=== PATIENT | female | born 1950 | race Caucasian/White ===

== ENCOUNTER 2017-05-24 12:46 | Outpatient (RCR) | payer MEDICARE, SELFPAY ==
[2017-04-25 13:40] LABS: International Normalized Ratio 2.4; Prothrombin Time (Protime)PT. 25.5 SECONDS (11.7-14.9)
[2017-04-25 13:56] LABS: Anion Gap 7 (5-15); BUN 75 mg/dL (7-18); BUN/Creat Ratio 42.4 RATIO (10-20); Calcium,Total 8.9 mg/dL (8.5-10.1); Chloride 97 mmol/L (98-107); Creatinine, Serum 1.77 mg/dL (0.55-1.02); EST Glomerular Filtration Rate 30 mL/min (>60); Est Glom Filt Rate - Afr Amer 37 mL/min (>60); Glucose 199 mg/dL (70-110); Potassium 3.9 mmol/L (3.5-5.1); Sodium Level 137 mmol/L (136-145)
[2017-05-24 13:18] LABS: International Normalized Ratio 3.7; Prothrombin Time (Protime)PT. 34.9 SECONDS (11.7-14.9)
== END 2017-05-24 13:00 | disposition home or self-care (01) ==
LOC: LAB 12:46
PROVIDERS: Family Provider Internal Medicine; PCP Internal Medicine; Visit Provider Internal Medicine Cardiovascular Disease
DX: I48.0 Paroxysmal atrial fibrillation (principal); I50.9 Heart failure, unspecified; I25.10 Atherosclerotic heart disease of native coronary artery without angina pectoris; I05.2 Rheumatic mitral stenosis with insufficiency
CPT/HCPCS: 36415; 80048; 85610

== ENCOUNTER 2017-06-20 20:49 | Emergency (ER) | payer MEDICARE, SELFPAY ==
[2017-06-20 20:53] VITALS: BP 144/63; PULSE 67; RESP 26; TEMP 36.5; O2SAT 97; BMI 33.7
--- NOTE | 2017-06-20 21:10 | EKG12_ITS ---
Test Reason : GEN ILL Blood Pressure : / mmHG Vent. Rate : 063 BPM Atrial Rate : 063 BPM P-R Int : 232 ms QRS Dur : 108 ms QT Int : 496 ms P-R-T Axes : 076 -21 075 degrees QTc Int : 507 ms Suspect unspecified pacemaker failure Sinus rhythm with 1st degree A-V block Incomplete left bundle branch block Prolonged QT Abnormal ECG Confirmed by JONATHAN CUELLAR, FRANCINE ([id number]), web content editor CAT CONKLIN ([id number]) on 06/21/2017 2:30:43 PM Referred By: Michael See Confirmed By:FRANCINE CASTILLO MD
[2017-06-20] MEDS: Ondansetron 4 MG/2 ML Vial IV (21:33)
[2017-06-20 21:46] LABS: Absolute Lymphocyte Count 0.65 X10^3/ul (0.83-4.51); Absolute Neutrophil Count 8.8 X10^3/uL (2.0-7.7); Basophil# 0.03 X10^3/uL; Basophil% 0.3 % (0-1); Eosinophil# 0.11 X10^3/uL; Hematocrit 34.2 % (37-47); Lymphocyte # 0.65 X10^3/ul (4.0); Mean Corp Hgb Conc 32.2 g/gl (32-36); Mean Corpuscular Hgb 29.8 pg (27.0-32.0); Mean Corpuscular Volume 92.7 fL (81-99); Mean Platelet Vol. 11.4 fl (6.2-12.0); Monocyte# 0.92 X10^3/uL; Monocyte% 8.6 % (0-10); Neutrophil # 8.83 X10^3/uL (2.7-7.7); Neutrophil % 82.1 % (47-70); POSITIVE COUNT YES; POSITIVE DIFFERENTIAL NO; POSITIVE MORPHOLOGY YES; Platelet Count 217 K/mm3 (150-450); RBC Distribution Width CV 15.1 % (11.6-14.6); RBC Distribution Width SD 50.8 fl (35.1-43.9); Red Blood Count 3.69 M/mm3 (4.2-5.4); White Blood Count 10.8 K/mm3 (4.4-11.0)
[2017-06-20 22:07] LABS: Anion Gap 4 (5-15); BUN 66 mg/dL (7-18); BUN/Creat Ratio 37.7 RATIO (10-20); Calcium,Total 8.7 mg/dL (8.5-10.1); Chloride 97 mmol/L (98-107); Creatinine, Serum 1.75 mg/dL (0.55-1.02); EST Glomerular Filtration Rate 31 mL/min (>60); Est Glom Filt Rate - Afr Amer 37 mL/min (>60); Glucose 220 mg/dL (74-106); Sodium Level 137 mmol/L (136-145)
[2017-06-20 22:08] VITALS: BP 121/58; BP 123/74; BP 124/55; PULSE 67; PULSE 72
[2017-06-20 22:11] LABS: Mucous, Urine 0 SEEN /hpf (<or=2+)
[2017-06-20 22:21] LABS: Color, Urine Yellow (Yellow); Glucose, Dipstick Normal (Normal); Ketone-Dipstick Negative (Negative); Leukocyte Esterase-Dipstick 25 /ul (Negative); Nitrite-Dipstick Negative (Negative); Occult Blood-Urine 25 /ul (Negative); Protein-Dipstick Negative (Negative); Urine Bilirubin Dipstick Negative (Negative); Urine Clarity Sl. Cloudy (Clear); Urine Urobilinogen Normal (Normal); Urine pH 6.5 (5.0 - 8.0)
[2017-06-20 22:30] LABS: Hyaline Cast 0-5 SEEN /lpf (0-5)
[2017-06-20 22:31] LABS: Bacteria 3+ /hpf (None Seen); Red Blood Cells-Urine 0-5 SEEN /hpf (0-5); Squamous Epithelial Cells - UA 0-5 SEEN /hpf (5-10); White Blood Cells 0-5 SEEN /hpf (0-5)
--- NOTE | 2017-06-20 22:55 | ED.DCSUM_ITS ---
- ER Visit Summary Date of Service: 06/20/17 Chief Complaint: Do not feel right History of Present Illness: The patient is a [address] Esa Cardenas. She reports that she was sitting watching TV at 745 this evening when she felt sweaty, clammy, and lightheaded. She took her blood sugar and it was 238. She denies any other symptoms. No chest pain, palpitations, fever, cough, shortness of breath, or other complaints. Physical Examination: Vitals: Stable. Afebrile. General: Well-nourished and well-developed. Head: Normocephalic atraumatic. Neck: Supple, no lymphadenopathy. No JVD. Nontender. Cardiovascular: Regular rate and rhythm. 2 out of 6 systolic murmur. Respiratory: No respiratory distress. Clear to auscultation bilaterally. Abdominal: Soft, nontender, nondistended, normal bowel sounds. No guarding, rebound, or peritoneal signs. Back: Nontender. Extremities: Nontender, no edema. Skin: Normal color, no rash. Neurologic: Alert and oriented ?3. Cranial nerves II through XII are intact. Normal strength and sensation. Psych: Normal affect. Test Results: EKG is sinus at 63 with a first-degree AV block and a QTC of 507. This is unchanged from April 2016. At that time her QTC was 530 and her PA was 204. CBC is marked for an H&H 11.0 34.2, 7 neutrophils of 82, leukocytes of 6. Chem-7 is more for chloride of 97, CO2 of 36, glucose of 220, BUN 66, creatinine 1.75. Creatinine ranged between 1.23 and 2.11 and 2017. INR is 4.0 yesterday. This was not repeated. Urinalysis is negative. Emergency Department Course and Treatment: Patient had negative orthostatic vital signs in the emergency department she was treated Zofran IV and is resting comfortably. Treatment Plan: Has an appointment to see the nurse practitioner for Dr. See tomorrow. She is instructed to keep this appointment. Return to the emergency part for any worsening symptoms. Disposition: To home in improved and stable condition. Impression: 1. Nausea. 2. Anxiety. This note was generated with Present[employer] software. It may contain incorrect words, spelling, and punctuation that were not noted in review of the chart prior to signing ED Disposition - Plan for ED Patient: Disposition: Home or Assisted Living Chief Complaint: General Illness Instructions: ED Nausea Vomiting Prescriptions: Ondansetron [Zofran Odt] 4 mg PO Q8H PRN PRN #10 tablet PRN Reason: Nausea Referrals: Fiona Cardenas MD [Primary Care Provider] - 1-2 Days if not improving
[2017-06-20 23:09] VITALS: BP 113/56; PULSE 66; RESP 17; O2SAT 98
[2017-06-20] MEDS: Ondansetron ODT 4 MG Tablet PO (23:10)
[2017-06-21 15:22] LABS: Pathologist Review Reviewed
== END 2017-06-20 23:22 | disposition home or self-care (01) ==
LOC: ED 21:30
PROVIDERS: Emergency Provider Emergency Medicine; Family Provider Internal Medicine; PCP Internal Medicine
DX: R11.0 Nausea (principal); F41.9 Anxiety disorder, unspecified; I13.0 Hypertensive heart and chronic kidney disease with heart failure and stage 1 through stage 4 chronic kidney disease, or unspecified chronic kidney disease; N18.9 Chronic kidney disease, unspecified; I50.9 Heart failure, unspecified; I25.10 Atherosclerotic heart disease of native coronary artery without angina pectoris; E11.9 Type 2 diabetes mellitus without complications; E78.00 Pure hypercholesterolemia, unspecified; I48.91 Unspecified atrial fibrillation; I27.20 Pulmonary hypertension, unspecified; Z79.4 Long term (current) use of insulin; Z79.82 Long term (current) use of aspirin; Z79.01 Long term (current) use of anticoagulants; Z79.899 Other long term (current) drug therapy
CPT/HCPCS: 80048; 81001; 84484; 85025; 93005; 96374; 99285; J7030; A4216; J2405

== ENCOUNTER → 2017-07-10 12:33 | Outpatient (CLI) | payer MEDICARE, SELFPAY ==
--- NOTE | 2017-07-10 12:34 | ECHOCS_ITS ---
Reason For Study: TAVR Procedure This was a 2D Doppler, Color Flow transthoracic echocardiogram. Exam performed in department. Left Ventricle Normal LV size. The estimated ejection fraction is 47 %. Mild global left ventricular systolic dysfunction. No regional wall motion abnormalities noted. Right Ventricle Normal RV size. ICD or pacer leads identified within the right ventricle. Normal systolic function. Atria The left atrium is moderately enlarged. The right atrium is mildly enlarged. Mitral Valve There is mild mitral annular calcification. Mild (1+) eccentric mitral valve insufficiency. Tricuspid Valve Normal tricuspid valve. Mild to moderate (1-2+) tricuspid valve insufficiency. Pulmonary artery systolic pressure is 50 mmHg. Moderate pulmonary hypertension. Aortic Valve Bioprosthetic aortic valve. Mild perivalvular insufficiency of the aortic valve. Pulmonic Valve Normal pulmonic valve. Great Vessels Normal aortic root. The pulmonary artery is normal size. Normal inferior vena cava. Pericardium/Pleural No pericardial effusion. Medication 22 gauge I.V. with prn adaptor inserted into left arm. Diluted definity 3ml given slow IV push to enhance endocardial definition. MMode/2D Measurements & Calculations LVIDd: 6.0 cm IVSd: 1.1 cm LVOT diam: 2.0 cm LVIDs: 4.5 cm LVPWd: 1.4 cm LVOT area: 3.3 cm2 FS: 25.1 % Ao root diam: 2.8 cm LAV(MOD-sp2): 107.8 ml LA dimension: 5.4 cm Doppler Measurements & Calculations MV V2 max: 243.0 cm/sec Ao V2 max: 218.5 cm/sec LV V1 max: 145.3 cm/sec MV max P.6 mmHg Ao max P.1 mmHg LV V1 max P.4 mmHg MV V2 mean: 160.7 cm/sec Ao V2 mean: 152.7 cm/sec LV V1 mean P.6 mmHg MV mean P.3 mmHg Ao mean P.5 mmHg LV V1 mean: 100.7 cm/sec MV V2 VTI: 66.2 cm Ao V2 VTI: 48.2 cm LV V1 VTI: 32.9 cm MVA(VTI): 1.6 cm2 ALEX(I,D): 2.2 cm2 ALEX(V,D): 2.2 cm2 SV(LVOT): 107.1 ml PA V2 max: 124.1 cm/sec TR max neil: 338.5 cm/sec TR max P.8 mmHg Interpretation Summary Normal LV size. The estimated ejection fraction is 47 %. Mild global left ventricular systolic dysfunction. Bioprosthetic aortic valve. Mild perivalvular insufficiency of the aortic valve. Pulmonary artery systolic pressure is 50 mmHg. Moderate pulmonary hypertension. Compared to prior study, there is no significant change. Ordering Physician: Anibal Jenkins/Michael See Referring Physician: Fiona Cardenas Performed By: Nicole Gonzales RDCS
== END ==
PROVIDERS: Family Provider Internal Medicine; PCP Internal Medicine; Visit Provider Nurse Practitioner Family
DX: R42 Dizziness and giddiness (principal); Z95.3 Presence of xenogenic heart valve
CPT/HCPCS: 93306; Q9957; A4216; C8929

== ENCOUNTER 2017-07-17 09:40 | Outpatient (RCR) | payer MEDICARE, SELFPAY ==
[2017-01-07 15:56] VITALS: BMI 36.3
[2017-02-03 10:51] VITALS: BP 119/54
[2017-05-29 15:14] LABS: International Normalized Ratio 2.6; Prothrombin Time (Protime)PT. 26.9 SECONDS (11.7-14.9)
[2017-06-12 13:37] LABS: Prothrombin Time (Protime)PT. 36.7 SECONDS (11.7-14.9)
[2017-06-12 13:40] LABS: International Normalized Ratio 3.9
[2017-06-19 09:45] LABS: Prothrombin Time (Protime)PT. 37.6 SECONDS (11.7-14.9)
[2017-06-26 15:21] LABS: International Normalized Ratio 2.9; Prothrombin Time (Protime)PT. 30.1 SECONDS (11.7-14.9)
[2017-07-17 10:43] LABS: International Normalized Ratio 2.7; Prothrombin Time (Protime)PT. 29.2 SECONDS (11.7-14.9)
== END 2017-07-17 10:00 | disposition home or self-care (01) ==
LOC: LAB 09:40
PROVIDERS: Family Provider Internal Medicine; PCP Internal Medicine; Visit Provider Internal Medicine Cardiovascular Disease
DX: I48.0 Paroxysmal atrial fibrillation (principal)
CPT/HCPCS: 36415; 85610

== ENCOUNTER 2017-07-21 22:12 | Inpatient (IN) | payer MEDICARE, SELFPAY ==
[2017-07-21 22:13] VITALS: BP 145/66; PULSE 67; RESP 16; TEMP 36.1; O2SAT 92; BMI 33.9
[2017-07-21 22:51] LABS: Hemoglobin 10.7 g/dl (12.0-15.0); Mean Corp Hgb Conc 31.5 g/gl (32-36); Mean Corpuscular Hgb 29.6 pg (27.0-32.0); Mean Corpuscular Volume 94.2 fL (81-99); Mean Platelet Vol. 10.2 fl (6.2-12.0); Platelet Count 183 K/mm3 (150-450); RBC Distribution Width CV 14.3 % (11.6-14.6); RBC Distribution Width SD 49.2 fl (35.1-43.9); Red Blood Count 3.61 M/mm3 (4.2-5.4); White Blood Count 11.2 K/mm3 (4.4-11.0)
[2017-07-21 23:08] LABS: Anion Gap 6 (5-15); BUN 79 mg/dL (7-18); BUN/Creat Ratio 45.7 RATIO (10-20); Calcium,Total 8.8 mg/dL (8.5-10.1); Chloride 100 mmol/L (98-107); Creatinine, Serum 1.73 mg/dL (0.55-1.02); EST Glomerular Filtration Rate 31 mL/min (>60); Est Glom Filt Rate - Afr Amer 38 mL/min (>60); Estimated Creatinine Clearance 28.73 ml/min; Glucose 100 mg/dL (74-106); Potassium 3.8 mmol/L (3.5-5.1); Sodium Level 140 mmol/L (136-145)
[2017-07-21 23:09] LABS: Differential Indicated MANUAL DIFF; POSITIVE COUNT YES; POSITIVE DIFFERENTIAL NO; POSITIVE MORPHOLOGY YES
[2017-07-21 23:11] LABS: International Normalized Ratio 2.9; Prothrombin Time (Protime)PT. 30.6 SECONDS (11.7-14.9)
[2017-07-21 23:16] LABS: Lymphocyte 8 % (19-41); Metamyelocyte 7 % (0-1); Monocyte 7 % (0-10); Neutrophil-Band 6 % (0-5); Neutrophil-Segmented 72 % (47-70); Total Cells Counted 100 (MANUAL DIFF)
--- NOTE | 2017-07-21 23:28 | ED.DCSUM_ITS ---
- ER Visit Summary Date of Service: 07/21/17 Chief Complaint: [Redness left leg] History of Present Illness: The patient is a 67 F [presents the emergency department with redness to her left leg that she noticed yesterday. Patient has history of cellulitis and sepsis related to it. Patient has chronic lymphedema both lower extremities and has her legs wrapped 24 hours a day. Patient has a visiting nurse that comes in twice a week to wrap her legs. Patient was noted to have erythema to her leg by visiting nurse and advised to seek further evaluation. Patient denies any fever. She denies any trauma to her legs. Patient lives independently and ambulates normally with a walker.] Patient is a diabetic. Physical Examination: [HEENT-PERRLA, EOMI. Cranial nerves II through XII grossly intact. TMs clear. Mucous membranes moist. No adenopathy. Cardiovascular-regular rate and rhythm with 2 out of 6 systolic ejection murmur Lungs-clear to auscultation, chest wall stable without crepitus or subcu emphysema Abdomen-normoactive bowel sounds, soft, nontender, no rebound or rigidity, no peritoneal signs. Extremities-intact ?4, normal range of motion, normal pulses, atraumatic]. Patient has +3 edema both lower extremities. Evaluation of the left lower extremity does reveal erythema below the knee. Patient has edema and erythema of the toes of the left foot. Findings consistent with cellulitis. Test Results: CBC with differential obtained showed an elevated white count of 11.2. Patient had 6% bands. Chemistries unremarkable. BUN was 79 and creatinine 1.73. INR was 2.9. [] Emergency Department Course and Treatment: [Patient was started on Levaquin given her allergy to penicillin.] Treatment Plan: [Admit for IV antibiotics] Disposition: [Admit] Impression: [Cellulitis left lower extremity] This note was generated with [employer] dictation software. It may contain incorrect words, spelling, and punctuation that were not noted in review of the chart prior to signing ED Disposition - Plan for ED Patient: Chief Complaint: Cellulitis Referrals: Fiona Cardenas MD [Primary Care Provider] -
[2017-07-21 23:48] VITALS: RESP 20; O2SAT 96
[2017-07-22] VITALS (13 sets, daily range): BP systolic 111–134; BP diastolic 48–57; PULSE 58–65; RESP 16–18; TEMP 35.5–36.7; O2SAT 93–100; BMI 33.7
--- NOTE | 2017-07-22 | PCM.HP.STD ---
Problem List (1) Cellulitis Status: Acute (2) Anemia of chronic disease Status: Chronic (3) Aortic stenosis Status: Chronic (4) Biatrial enlargement Status: Chronic Comment: Severe (5) Cardiomyopathy in disease classified elsewhere Status: Chronic (6) Cardiomyopathy, noncoronary Status: Chronic (7) Chronic atrial fibrillation Status: Chronic (8) HLD (hyperlipidemia) Status: Chronic Qualifiers: Hyperlipidemia type: mixed hyperlipidemia Qualified Code(s): E78.2 - Mixed hyperlipidemia (9) HTN (hypertension) Status: Chronic Qualifiers: Hypertension type: essential hypertension Qualified Code(s): I10 - Essential (primary) hypertension History of Present Illness Date of Admission: 07/22/17 Chief Complaint: Cellulitis The patient is a 67 year old female w/ h/o CKD III, CAD, chronic afib, and HTN admitted for cellulitis. Pt has chronic bilateral leg swelling x months. In the last few days, she noted increase swelling and tenderness in her left lower extremity. Nothing made it better or worse. She has dull aching pain. Pain was constant and has gotten progressively worse. She thought it was sweeping. Pain was so severe that it interfered with her ADLs. She has no chill or fever. She came to the ED for further workup. 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) ICD (implantable cardioverter-defibrillator) in place (Chronic) Ventricular tachycardia (paroxysmal) (Chronic) S/P AICD Anemia of chronic disease (Chronic) Cardiomyopathy, noncoronary (Chronic) HTN (hypertension) (Chronic) S/p TAVR (transcatheter aortic valve replacement), bioprosthetic (Chronic) 26 mm Bond [place] Bioprosthetic Aortic Valve HLD (hyperlipidemia) (Chronic) Biatrial enlargement (Chronic) Severe Mitral valve stenosis and regurgitation (Chronic) Mild to moderate mitral valve stenosis with moderate mitral valve insufficiency Chronic atrial fibrillation (Chronic) Allergies amoxicillin trihydrate [From Augmentin] Allergy (Verified 07/21/17 22:15) Rash potassium clavulanate [From Augmentin] Allergy (Verified 07/21/17 22:15) Rash Sulfa (Sulfonamide Antibiotics) Allergy (Verified 07/21/17 22:15) Hives vancomycin Allergy (Verified 07/21/17 22:15) Other ROSLYN SYNDROME Home Medications: Ambulatory Orders Medication Instructions Recorded Aspirin [Aspirin, Baby] 81 mg PO DAILY@0800 03/04/14 Atorvastatin Calcium [Lipitor] 40 mg PO QHS 03/04/14 Insulin Glargine,Hum.rec.anlog 42 unit SQ BREAKFAST 12/17/16 [Lantus] Levothyroxine [Synthroid] 75 mcg PO 0600 12/17/16 Polyethylene Glycol 3350 [Miralax] 17 gm PO DAILY 12/18/16 Acetaminophen [Tylenol] 1,000 mg PO Q8H PRN PRN tab 02/01/17 Metolazone [Zaroxolyn] 2.5 mg PO MOTH@0930 #4 tab 02/01/17 amiodarone 200 mg tablet 200 mg PO DAILY #30 tab 03/31/17 Furosemide [Furosemide] 40 mg PO BID 06/20/17 Insulin Aspart [Novolog Flexpen] 5 units SC BREAKFAST 06/20/17 Insulin Lispro [Humalog KwikPen] 8 unit SQ BID 06/20/17 Spironolactone [Aldactone] 25 mg PO DAILY 06/20/17 Warfarin [Coumadin] 2 mg PO .COMPLEX 06/20/17 carvedilol 6.25 mg tablet 6.25 mg PO BID 06/21/17 warfarin 4 mg tablet 4 mg PO QWEEK 06/21/17 Docusate Sodium [Colace] 100 mg PO DAILY 07/22/17 Surgical History: appendectomy, tonsillectomy, - - S/P TAVR; S/P ICD Smoking Status: Never smoker - *Family History Maternal History Items: - - heart disease, stroke Paternal History Items: - - father with kidney disease, heart disease and stroke Review of Systems Constitutional: Denies: Chills, Fever, Weight Change HEENT: Denies: Head Aches, Sinus Congestion, Sinus Drainage Cardiovascular: Denies: Chest Pain, Palpitations Respiratory: Denies: Cough, Shortness of breath at rest, Sputum production Gastrointestinal: Denies: Abdominal Pain, Nausea, Vomiting Genitourinary: Denies: Dysuria Musculoskeletal: Denies: Joint Pain, Joint Tenderness Skin: Reports: Rash. Denies: Wounds Neurological: Denies: Numbness, Tingling, Focal weakness Psychiatric: Denies: Anxiety, Depression, Homicidal Ideations, Suicidal Ideations Hematologic/ Lymphatic: Denies: Easy Bruising, Easy Bleeding VTE Information - Inpt Only VTE Present on Admission: No VTE Mechan Device Prophylaxis: SCD's VTE Pharm Prophylaxis ordered?: Yes Patient Problems: Active and Suspected Problems (Last Updated 06/21/17 @ 08:34 by Stefany Carrion) Cellulitis (Acute) - Physical Exam General: Alert, Oriented x3, Cooperative HEENT: Atraumatic, PERRLA, EOMI, Normocephalic Neck: Supple, No JVD, Negative Carotid Bruits Lungs: Clear to auscultation, Normal air movement Cardiovascular: No murmurs, Irregular Rate Abdomen: Bowel Sounds Present, Soft, Non Tender Extremities: Capillary Refill Less than 3 Seconds, Edema, Tenderness Skin: No breakdown, Ulcer/ Wound Musculoskeletal: No Tenderness to Palpation of Joints or Extremities Neurological: Cranial nerves II-XII grossly intact Psych/Mental Status: Normal Affect, Appropriate Vital Signs Temp Pulse Resp BP Pulse Ox 96.9 F L 67 20 H 145/66 H 96 07/21/17 22:13 07/21/17 22:13 07/21/17 23:48 07/21/17 22:13 07/21/17 23:48 Oxygen Delivery Method Room Air Weight: 95.254 kg Body Mass Index (BMI) 33.9 Finger Stick Blood Glucose 261 Laboratory Tests Past 24 Hrs 07/21/17 07/21/17 07/21/17 22:38 22:38 22:38 WBC 11.2 H RBC 3.61 L Hgb 10.7 L Hct 34.0 L MCV 94.2 MCH 29.6 MCHC 31.5 L RDW 14.3 RDW Differential 49.2 H Plt Count 183 MPV 10.2 Neut % (Auto) Not Reportable Absolute Neuts (auto) Not Reportable Total Counted 100 Neutrophils % (Manual) 72 H Band Neutrophils % 6 H Lymphocytes % (Manual) 8 L Monocytes % (Manual) 7 Metamyelocytes % 7 H Diff Path Review May foll PT 30.6 H INR 2.9 Sodium 140 Potassium 3.8 Chloride 100 Carbon Dioxide 34.0 H Anion Gap 6 BUN 79 H Creatinine 1.73 H Estim Creat Clear Calc 28.73 Est GFR (MDRD) Af Amer 38 L Est GFR (MDRD) Non-Af 31 L BUN/Creatinine Ratio 45.7 H Glucose 100 Calcium 8.8 Assessment/Plan Active and Suspected Problems (Last Updated 06/21/17 @ 08:34 by Stefany Carrion) Cellulitis (Acute) 67 year old female w/ h/o CKD III, CAD, chronic afib, and HTN admitted for cellulitis. 1) Left leg cellulitis: Will start zosyn. No vancomycin at this time given allergy. Cultures pending. Monitor. 2) Chronic afib: Resume home meds. Resume coumadin. INR 2.9 3) CKD III: Currently at baseline. Resume home dose lasix. H/o chronic systolic heart failure. Monitor. 4) Prophylaxis: SCD / coumadin
--- NOTE | 2017-07-22 01:17 | VDLE_ITS ---
Reason For Study: LEG SWELLING RIGHT LEFT GSV is normal. GSV is normal. CFV is compressible, spontaneous, phasic, CFV is compressible, spontaneous, phasic, competent and demonstrates normal competent, and demonstrates normal augmentation. augmentation. FV is compressible, spontaneous, phasic, FV is compressible, spontaneous, phasic, competent and demonstrates normal competent and demonstrates normal augmentation. augmentation. POP V is compressible, spontaneous, phasic, POP V is compressible, spontaneous, phasic, competent and demonstrates normal competent and demonstrates normal augmentation. augmentation. T/P Trunk is compressible. T/P Trunk is compressible. PTV is compressible. PTV is compressible. RT PerV is compressible. LT PerV is compressible. Procedure Exam performed portable in patient room. A preliminary report was called and/or faxed to [facility] nurse. Interpretation Summary No evidence for acute deep venous thrombosis bilateral lower extremities with patent and compressible bilateral great saphenous veins. Ordering Physician: Piter Laureano Referring Physician: Michael See Performed By: Michelle Linton RVT
[2017-07-22] MEDS: 0.9% Normal Saline 1,000 ML 100 ML IV ×2 (02:20→22:02)
[2017-07-22] MEDS: 0.9% NaCl Peripheral Flush Adult/Peds IV (02:30)
[2017-07-22] MEDS: Piperacil/Tazobactam 3.375 GM/50 ML ML IV ×3 (05:29→22:03)
[2017-07-22] MEDS: Levothyroxine 75 MCG Tablet PO (05:29)
[2017-07-22 07:05] LABS: Bedside Glucose 119 mg/dL (70-110)
[2017-07-22 07:21] LABS: Absolute Neutrophil Count 7.2 X10^3/uL (2.0-7.7); Basophil# 0.04 X10^3/uL; Basophil% 0.4 % (0-1); Eosinophil# 0.12 X10^3/uL; Eosinophils% 1.3 % (0-5); Hematocrit 32.1 % (37-47); Hemoglobin 10.1 g/dl (12.0-15.0); Lymphocyte % 8.7 % (19-41); Mean Corp Hgb Conc 31.5 g/gl (32-36); Mean Corpuscular Hgb 30.3 pg (27.0-32.0); Mean Corpuscular Volume 96.4 fL (81-99); Mean Platelet Vol. 11.3 fl (6.2-12.0); Monocyte# 0.84 X10^3/uL; Monocyte% 9.1 % (0-10); Neutrophil # 7.15 X10^3/uL (2.7-7.7); Neutrophil % 77.9 % (47-70); POSITIVE COUNT YES; POSITIVE DIFFERENTIAL NO; POSITIVE MORPHOLOGY YES; Platelet Count 166 K/mm3 (150-450); RBC Distribution Width SD 47.1 fl (35.1-43.9); Red Blood Count 3.33 M/mm3 (4.2-5.4); White Blood Count 9.2 K/mm3 (4.4-11.0)
[2017-07-22 07:49] LABS: Anion Gap 8 (5-15); BUN 68 mg/dL (7-18); BUN/Creat Ratio 43.6 RATIO (10-20); Calcium,Total 8.8 mg/dL (8.5-10.1); Chloride 100 mmol/L (98-107); Creatinine, Serum 1.56 mg/dL (0.55-1.02); EST Glomerular Filtration Rate 35 mL/min (>60); Est Glom Filt Rate - Afr Amer 42 mL/min (>60); Estimated Creatinine Clearance 31.86 ml/min; Glucose 111 mg/dL (74-106); Potassium 3.5 mmol/L (3.5-5.1); Sodium Level 140 mmol/L (136-145)
[2017-07-22] MEDS: Aspirin 81 MG TAB.CHEW PO (08:38)
[2017-07-22] MEDS: Amiodarone 200 MG Tablet PO (08:38)
[2017-07-22] MEDS: Carvedilol 6.25 MG Tablet PO ×2 (08:38→22:02)
[2017-07-22] MEDS: Polyethylene Glycol 3350 17 GM PACKET PO (08:39)
[2017-07-22] MEDS: Furosemide 40 MG Tablet PO ×2 (08:39→16:56)
[2017-07-22] MEDS: Spironolactone 25 MG Tablet PO (08:39)
[2017-07-22 11:26] LABS: Bedside Glucose 240 mg/dL (70-110)
--- NOTE | 2017-07-22 13:37 | CASEMGMT ---
See attached metal hardener. Met face to face with patient earlier today. States she does see a kidney doctor that comes from [facility] to local area but can't remember his name. Also sees Dr. See. Denies anticipating any needs at discharge. Has ramp from garage into home and in the front. She owns a power scooter. Instructed case mgmt will remain available should anything arise. Verb understanding. Anat Hall RN, CCM.
--- NOTE | 2017-07-22 15:00 | PCM.HOSP.N ---
Hospitalist Note The patient was admitted die operator today for lower extremity cellulitis. She has history of bilateral lower extremity edema, venous stasis and chronic lymphedema with frequent skin tear and fluid seeping out. No fever. No tachycardia. Lungs bilateral air entry equal. CTA Heart S1-S2 regular. Patient is on IV Zosyn. Laboratory Results 07/21/17 22:38: WBC 11.2 H, RBC 3.61 L, Hgb 10.7 L, Hct 34.0 L, MCV 94.2, MCH 29.6, MCHC 31.5 L, RDW 14.3, RDW Differential 49.2 H, Plt Count 183, MPV 10.2, Neut % (Auto) Not Reportable, Absolute Neuts (auto) Not Reportable, Total Counted 100, Neutrophils % (Manual) 72 H, Band Neutrophils % 6 H, Lymphocytes % (Manual) 8 L, Monocytes % (Manual) 7, Metamyelocytes % 7 H, Diff Path Review August07/21/17 22:38: PT 30.6 H, INR 2.9 07/21/17 22:38: Sodium 140, Potassium 3.8, Chloride 100, Carbon Dioxide 34.0 H, Anion Gap 6, BUN 79 H, Creatinine 1.73 H, Estim Creat Clear Calc 28.73, Est GFR (MDRD) Af Amer 38 L, Est GFR (MDRD) Non-Af 31 L, BUN/Creatinine Ratio 45.7 H, Glucose 100, Calcium 8.8 07/22/17 06:35: WBC 9.2, RBC 3.33 L, Hgb 10.1 L, Hct 32.1 L, MCV 96.4, MCH 30.3, MCHC 31.5 L, RDW 14.0, RDW Differential 47.1 H, Plt Count 166, MPV 11.3, Immature Gran % (Auto) 2.600 H, Neut % (Auto) 77.9 H, Lymph % (Auto) 8.7 L, [place] % (Auto) 9.1, Eos % (Auto) 1.3, Baso % (Auto) 0.4, Absolute Neuts (auto) 7.2, Absolute Lymphs (auto) 0.80 L, Total Counted Not Reportable 07/22/17 06:35: Sodium 140, Potassium 3.5, Chloride 100, Carbon Dioxide 32.0, Anion Gap 8, BUN 68 H, Creatinine 1.56 H, Estim Creat Clear Calc 31.86, Est GFR (MDRD) Af Amer 42 L, Est GFR (MDRD) Non-Af 35 L, BUN/Creatinine Ratio 43.6 H, Glucose 111 H, Calcium 8.8 07/22/17 06:58: POC Glucose 119 H 07/22/17 11:01: POC Glucose 240 H
--- NOTE | 2017-07-22 15:03 | CCHN_ITS ---
Hospitalist Note The patient was admitted joint cutter machine today for lower extremity cellulitis. She has history of bilateral lower extremity edema, venous stasis and chronic lymphedema with frequent skin tear and fluid seeping out. No fever. No tachycardia. Lungs bilateral air entry equal. CTA Heart S1-S2 regular. Patient is on IV Zosyn. Laboratory Results 07/21/17 22:38: WBC 11.2 H, RBC 3.61 L, Hgb 10.7 L, Hct 34.0 L, MCV 94.2, MCH 29.6, MCHC 31.5 L, RDW 14.3, RDW Differential 49.2 H, Plt Count 183, MPV 10.2, Neut % (Auto) Not Reportable, Absolute Neuts (auto) Not Reportable, Total Counted 100, Neutrophils % (Manual) 72 H, Band Neutrophils % 6 H, Lymphocytes % (Manual) 8 L, Monocytes % (Manual) 7, Metamyelocytes % 7 H, Diff Path Review August07/21/17 22:38: PT 30.6 H, INR 2.9 07/21/17 22:38: Sodium 140, Potassium 3.8, Chloride 100, Carbon Dioxide 34.0 H, Anion Gap 6, BUN 79 H, Creatinine 1.73 H, Estim Creat Clear Calc 28.73, Est GFR (MDRD) Af Amer 38 L, Est GFR (MDRD) Non-Af 31 L, BUN/Creatinine Ratio 45.7 H, Glucose 100, Calcium 8.8 07/22/17 06:35: WBC 9.2, RBC 3.33 L, Hgb 10.1 L, Hct 32.1 L, MCV 96.4, MCH 30.3 , MCHC 31.5 L, RDW 14.0, RDW Differential 47.1 H, Plt Count 166, MPV 11.3, Immature Gran % (Auto) 2.600 H, Neut % (Auto) 77.9 H, Lymph % (Auto) 8.7 L, [place] % (Auto) 9.1, Eos % (Auto) 1.3, Baso % (Auto) 0.4, Absolute Neuts (auto) 7.2, Absolute Lymphs (auto) 0.80 L, Total Counted Not Reportable 07/22/17 06:35: Sodium 140, Potassium 3.5, Chloride 100, Carbon Dioxide 32.0, Anion Gap 8, BUN 68 H, Creatinine 1.56 H, Estim Creat Clear Calc 31.86, Est GFR (MDRD) Af Amer 42 L, Est GFR (MDRD) Non-Af 35 L, BUN/Creatinine Ratio 43.6 H, Glucose 111 H, Calcium 8.8 07/22/17 06:58: POC Glucose 119 H 07/22/17 11:01: POC Glucose 240 H
[2017-07-22 16:06] LABS: Bedside Glucose 218 mg/dL (70-110)
[2017-07-22] MEDS: Atorvastatin Calcium 40 MG Tablet PO (22:02)
[2017-07-22 22:10] LABS: Bedside Glucose 138 mg/dL (70-110)
[2017-07-23] VITALS (11 sets, daily range): BP systolic 104–131; BP diastolic 43–59; PULSE 59–63; RESP 16–18; TEMP 35.9–36.9; O2SAT 97–100
[2017-07-23] MEDS: Piperacil/Tazobactam 3.375 GM/50 ML ML IV ×3 (05:08→21:36)
[2017-07-23] MEDS: Levothyroxine 75 MCG Tablet PO (05:08)
[2017-07-23] MEDS: Acetaminophen 500 MG Tablet 1000 MG PO ×2 (06:27→21:36)
[2017-07-23 07:30] LABS: Bedside Glucose 92 mg/dL (70-110)
[2017-07-23] MEDS: Polyethylene Glycol 3350 17 GM PACKET PO (09:06)
[2017-07-23] MEDS: Spironolactone 25 MG Tablet PO (09:07)
[2017-07-23] MEDS: Carvedilol 6.25 MG Tablet PO ×2 (09:07→21:36)
[2017-07-23] MEDS: Aspirin 81 MG TAB.CHEW PO (09:07)
[2017-07-23] MEDS: Amiodarone 200 MG Tablet PO (09:07)
[2017-07-23] MEDS: Furosemide 40 MG Tablet PO ×2 (09:07→17:21)
[2017-07-23 11:30] LABS: Bedside Glucose 191 mg/dL (70-110)
--- NOTE | 2017-07-23 13:37 | PCM.PN.HOSP ---
Patient Problems: Active and Suspected Problems (Last Updated 06/21/17 @ 08:34 by Stefany Carrion) Cellulitis (Acute) Subjective: Patient did not had fever or chills. Alert awake oriented ?3. Bilateral lower extremity wrapped. Patient has history of his skin tear and fragile skin with weeping lymphedema Vitals/I&O's: Vital Signs Temp Pulse Resp BP Pulse Ox 97.7 F L 59 L 16 117/54 L 100 07/23/17 11:31 07/23/17 11:31 07/23/17 11:31 07/23/17 11:31 07/23/17 11:31 Oxygen Flow Rate (L/min) 2 Oxygen Delivery Method Nasal Cannula Weight: 208 lb 12.8 oz Body Mass Index (BMI) 33.7 Intake and Output for Last 24 Hours 07/21/17 07/22/17 07/23/17 23:59 23:59 23:59 Intake Total 1949 / 1949 1156 / 1156 Output Total 1650 / 1650 2550 / 2550 Balance 299 / 299 -1394 / -1394 General: Alert, Oriented x3, Cooperative HEENT: Atraumatic, PERRLA, EOMI, Normocephalic Neck: Supple, No JVD, Negative Carotid Bruits Lungs: Normal air movement, Diminished, - Cardiovascular: Regular rate, Normal S1, Normal S2, No murmurs Abdomen: Bowel Sounds Present, Soft, Non Tender Extremities: Capillary Refill Less than 3 Seconds, Edema Skin: Rash Present - Bilateral erythema present, getting better below knee generalized venous edema with purplish/Rona's skin discoloration and lymphedema suggestive of venous hypertension. Patient has thin skin but no skin tear/ULCER at this time Musculoskeletal: No Tenderness to Palpation of Joints or Extremities Neurological: Cranial nerves II-XII grossly intact Psych/Mental Status: Normal Affect, Appropriate Laboratory Results 07/22/17 15:57: POC Glucose 218 H 07/22/17 22:02: POC Glucose 138 H 07/23/17 07:20: POC Glucose 92 07/23/17 11:21: POC Glucose 191 H Current Medications Acetaminophen (Tylenol) 1,000 mg PO Q8H PRN PRN PRN Reason: MILD PAIN (1-3) Last Admin: 07/23/17 06:27 Dose: 1,000 mg Amiodarone HCl (Cordarone) 200 mg PO DAILY [facility] Last Admin: 07/23/17 09:07 Dose: 200 mg Aspirin (Aspirin, Baby) 81 mg PO DAILY@0800 [facility] Last Admin: 07/23/17 09:07 Dose: 81 mg Atorvastatin Calcium (Lipitor) 40 mg PO QHS [facility] Last Admin: 07/22/17 22:02 Dose: 40 mg Carvedilol (Coreg) 6.25 mg PO BID [facility] Last Admin: 07/23/17 09:07 Dose: 6.25 mg Dextrose (D50w Syringe) 0 gm IV X1 PRN; Protocol PRN Reason: Hypoglycemia Furosemide (Lasix) 40 mg PO BID [facility] Last Admin: 07/23/17 09:07 Dose: 40 mg Glucagon () 1 mg IM .X1 PRN PRN Reason: Hypoglycemia Piperacillin Sod/Tazobactam Sod (Zosyn) 3.375 gm in 50 mls @ 12.5 mls/hr IV Q8 [facility] Last Admin: 07/23/17 05:08 Dose: 12.5 mls/hr Sodium Chloride () 250 mls @ 15 mls/hr IV .[id number] PRN PRN Reason: SALINE FLUSH Insulin Aspart (Novolog Flexpen (Bkc)) 0 units SC TIDAC [facility] PRN Reason: Protocol Last Admin: 07/23/17 12:33 Dose: 2 u Insulin Aspart (Novolog Flexpen (Bkc)) 5 units SC BREAKFAST [facility] Last Admin: 07/23/17 09:06 Dose: 5 u Insulin Aspart (Novolog Flexpen (Bkc)) 8 units SC LUNCH [facility] Last Admin: 07/23/17 12:33 Dose: 8 u Insulin Aspart (Novolog Flexpen (Bkc)) 8 units SC DINNER [facility] Last Admin: 07/22/17 16:56 Dose: 8 u Insulin Detemir (Levemir (Bkc)) 42 units SC BREAKFAST [facility] Last Admin: 07/23/17 09:05 Dose: 42 u Levothyroxine Sodium (Synthroid) 75 mcg PO 0600 [facility] Last Admin: 07/23/17 05:08 Dose: 75 mcg Magnesium Hydroxide (Milk Of Magnesia) 30 ml PO DAILY PRN PRN PRN Reason: Constipation Metolazone (Zaroxolyn) 2.5 mg PO MOTH@0930 [facility] Ondansetron HCl (Zofran Odt) 4 mg PO Q8H PRN PRN Reason: NAUSEA/VOMITING Polyethylene Glycol (Miralax) 17 gm PO DAILY [facility] Last Admin: 07/23/17 09:06 Dose: 17 gm Sodium Chloride () 5 - 30 ml IV UD PRN PRN Reason: SALINE FLUSH Last Admin: 07/22/17 02:30 Dose: 5 ml Spironolactone (Aldactone) 25 mg PO DAILY [facility] Last Admin: 07/23/17 09:07 Dose: 25 mg Warfarin Sodium (Coumadin (Pbkc)) 2 mg PO SuTuWeThFrSa@1700 [facility] PRN Reason: Protocol Last Admin: 07/22/17 16:55 Dose: 2 mg Warfarin Sodium (Coumadin (Pbkc)) 4 mg PO Mo@1700 [facility] PRN Reason: Protocol Medical Necessity - Tobacco Use Smoking Status: Never smoker Assessment/Plan Active and Suspected Problems (Last Updated 06/21/17 @ 08:34 by Stefany Carrion) Cellulitis (Acute) THis is a 67 year old female w/ h/o CKD III, CAD, chronic afib, and HTN admitted for cellulitis. 1) Left leg cellulitis: Started on IV Zosyn. Currently, she does not Have open wound/ulcer. In September 2015, her left leg wound showed coagulated negative staph No vancomycin at this time given allergy. Cultures pending. Monitor. 2) Chronic afib: Resume home meds. Resume coumadin. INR 2.9. Monitor INR 3) CKD III: Currently at baseline. Resume home dose lasix. H/o chronic systolic heart failure. Monitor. Patient has other comorbidities including nonischemic cardiomyopathy, most probably related to to hypertension,and aortic stenosis and, chronic A. fib, dyslipidemia and anemia of chronic disease, aortic stenosis s/p TAVR, history of systolic and diastolic combined heart failure and paroxysmal V. tach status post AICD: patient had last 2D echo in June 2017 showed EF 47%, mild global left ventricular systolic dysfunction. Normal RV size and systolic function. Left atrium moderately enlarged right atrium mildly enlarged. Mild to moderate TR with PA SP 50 images as to moderate pulmonary hypertension. Bioprosthetic aortic valve 4) Prophylaxis: SCD / coumadin Code Visit Inpatient E&M: 45[address] [facility] L3
--- NOTE | 2017-07-23 13:47 | PN_ITS ---
Patient Problems: Active and Suspected Problems (Last Updated 06/21/17 @ 08:34 by Stefany Carrion ) Cellulitis (Acute) Subjective: Patient did not had fever or chills. Alert awake oriented ?3. Bilateral lower extremity wrapped. Patient has history of his skin tear and fragile skin with weeping lymphedema Vitals/I&O's: Vital Signs Temp Pulse Resp BP Pulse Ox 97.7 F L 59 L 16 117/54 L 100 07/23/17 11:31 07/23/17 11:31 07/23/17 11:31 07/23/17 11:31 07/23/17 11:31 Oxygen Flow Rate (L/min) 2 Oxygen Delivery Method Nasal Cannula Weight: 208 lb 12.8 oz Body Mass Index (BMI) 33.7 Intake and Output for Last 24 Hours 07/21/17 07/22/17 07/23/17 23:59 23:59 23:59 Intake Total 1949 / 1949 1156 / 1156 Output Total 1650 / 1650 2550 / 2550 Balance 299 / 299 -1394 / -1394 General: Alert, Oriented x3, Cooperative HEENT: Atraumatic, PERRLA, EOMI, Normocephalic Neck: Supple, No JVD, Negative Carotid Bruits Lungs: Normal air movement, Diminished, - Cardiovascular: Regular rate, Normal S1, Normal S2, No murmurs Abdomen: Bowel Sounds Present, Soft, Non Tender Extremities: Capillary Refill Less than 3 Seconds, Edema Skin: Rash Present - Bilateral erythema present, getting better below knee generalized venous edema with purplish/Rona's skin discoloration and lymphedema suggestive of venous hypertension. Patient has thin skin but no skin tear/ULCER at this time Musculoskeletal: No Tenderness to Palpation of Joints or Extremities Neurological: Cranial nerves II-XII grossly intact Psych/Mental Status: Normal Affect, Appropriate Laboratory Results 07/22/17 15:57: POC Glucose 218 H 07/22/17 22:02: POC Glucose 138 H 07/23/17 07:20: POC Glucose 92 07/23/17 11:21: POC Glucose 191 H Current Medications Acetaminophen (Tylenol) 1,000 mg PO Q8H PRN PRN PRN Reason: MILD PAIN (1-3) Last Admin: 07/23/17 06:27 Dose: 1,000 mg Amiodarone HCl (Cordarone) 200 mg PO DAILY [facility] Last Admin: 07/23/17 09:07 Dose: 200 mg Aspirin (Aspirin, Baby) 81 mg PO DAILY@0800 [facility] Last Admin: 07/23/17 09:07 Dose: 81 mg Atorvastatin Calcium (Lipitor) 40 mg PO QHS [facility] Last Admin: 07/22/17 22:02 Dose: 40 mg Carvedilol (Coreg) 6.25 mg PO BID [facility] Last Admin: 07/23/17 09:07 Dose: 6.25 mg Dextrose (D50w Syringe) 0 gm IV X1 PRN; Protocol PRN Reason: Hypoglycemia Furosemide (Lasix) 40 mg PO BID [facility] Last Admin: 07/23/17 09:07 Dose: 40 mg Glucagon () 1 mg IM .X1 PRN PRN Reason: Hypoglycemia Piperacillin Sod/Tazobactam Sod (Zosyn) 3.375 gm in 50 mls @ 12.5 mls/hr IV Q8 [facility] Last Admin: 07/23/17 05:08 Dose: 12.5 mls/hr Sodium Chloride () 250 mls @ 15 mls/hr IV .[id number] PRN PRN Reason: SALINE FLUSH Insulin Aspart (Novolog Flexpen (Bkc)) 0 units SC TIDAC [facility] PRN Reason: Protocol Last Admin: 07/23/17 12:33 Dose: 2 u Insulin Aspart (Novolog Flexpen (Bkc)) 5 units SC BREAKFAST [facility] Last Admin: 07/23/17 09:06 Dose: 5 u Insulin Aspart (Novolog Flexpen (Bkc)) 8 units SC LUNCH [facility] Last Admin: 07/23/17 12:33 Dose: 8 u Insulin Aspart (Novolog Flexpen (Bkc)) 8 units SC DINNER [facility] Last Admin: 07/22/17 16:56 Dose: 8 u Insulin Detemir (Levemir (Bkc)) 42 units SC BREAKFAST [facility] Last Admin: 07/23/17 09:05 Dose: 42 u Levothyroxine Sodium (Synthroid) 75 mcg PO 0600 [facility] Last Admin: 07/23/17 05:08 Dose: 75 mcg Magnesium Hydroxide (Milk Of Magnesia) 30 ml PO DAILY PRN PRN PRN Reason: Constipation Metolazone (Zaroxolyn) 2.5 mg PO MOTH@0930 [facility] Ondansetron HCl (Zofran Odt) 4 mg PO Q8H PRN PRN Reason: NAUSEA/VOMITING Polyethylene Glycol (Miralax) 17 gm PO DAILY [facility] Last Admin: 07/23/17 09:06 Dose: 17 gm Sodium Chloride () 5 - 30 ml IV UD PRN PRN Reason: SALINE FLUSH Last Admin: 07/22/17 02:30 Dose: 5 ml Spironolactone (Aldactone) 25 mg PO DAILY [facility] Last Admin: 07/23/17 09:07 Dose: 25 mg Warfarin Sodium (Coumadin (Pbkc)) 2 mg PO SuTuWeThFrSa@1700 [facility] PRN Reason: Protocol Last Admin: 07/22/17 16:55 Dose: 2 mg Warfarin Sodium (Coumadin (Pbkc)) 4 mg PO Mo@1700 [facility] PRN Reason: Protocol Medical Necessity - Tobacco Use Smoking Status: Never smoker Assessment/Plan Active and Suspected Problems (Last Updated 06/21/17 @ 08:34 by Stefany Carrion ) Cellulitis (Acute) THis is a 67 year old female w/ h/o CKD III, CAD, chronic afib, and HTN admitted for cellulitis. 1) Left leg cellulitis: Started on IV Zosyn. Currently, she does not Have open wound/ulcer. In September 2015, her left leg wound showed coagulated negative staph No vancomycin at this time given allergy. Cultures pending. Monitor. 2) Chronic afib: Resume home meds. Resume coumadin. INR 2.9. Monitor INR 3) CKD III: Currently at baseline. Resume home dose lasix. H/o chronic systolic heart failure. Monitor. Patient has other comorbidities including nonischemic cardiomyopathy, most probably related to to hypertension,and aortic stenosis and, chronic A. fib, dyslipidemia and anemia of chronic disease, aortic stenosis s/p TAVR, history of systolic and diastolic combined heart failure and paroxysmal V. tach status post AICD: patient had last 2D echo in June 2017 showed EF 47%, mild global left ventricular systolic dysfunction. Normal RV size and systolic function. Left atrium moderately enlarged right atrium mildly enlarged. Mild to moderate TR with PA SP 50 images as to moderate pulmonary hypertension. Bioprosthetic aortic valve 4) Prophylaxis: SCD / coumadin Code Visit Inpatient E&M: 15873 [facility] L3
[2017-07-23 16:11] LABS: Bedside Glucose 200 mg/dL (70-110)
[2017-07-23] MEDS: Atorvastatin Calcium 40 MG Tablet PO (21:36)
[2017-07-23 21:46] LABS: Bedside Glucose 272 mg/dL (70-110)
[2017-07-24] VITALS (11 sets, daily range): BP systolic 102–117; BP diastolic 49–59; PULSE 59–76; RESP 18–20; TEMP 36.4–37; O2SAT 95–100
[2017-07-24] MEDS: Piperacil/Tazobactam 3.375 GM/50 ML ML IV ×3 (05:43→22:00)
[2017-07-24] MEDS: Acetaminophen 500 MG Tablet 1000 MG PO ×2 (05:43→18:15)
[2017-07-24] MEDS: Levothyroxine 75 MCG Tablet PO (05:43)
[2017-07-24] MEDS: Aspirin 81 MG TAB.CHEW PO (07:43)
[2017-07-24] MEDS: Metolazone 2.5 MG Tablet PO (07:43)
[2017-07-24] MEDS: Spironolactone 25 MG Tablet PO (07:45)
[2017-07-24] MEDS: Carvedilol 6.25 MG Tablet PO ×2 (07:45→21:59)
[2017-07-24] MEDS: Polyethylene Glycol 3350 17 GM PACKET PO (07:46)
[2017-07-24] MEDS: Furosemide 40 MG Tablet PO ×2 (07:46→18:15)
[2017-07-24 07:55] LABS: Bedside Glucose 113 mg/dL (70-110)
[2017-07-24 07:57] LABS: Prothrombin Time (Protime)PT. 43.1 SECONDS (11.7-14.9)
[2017-07-24 08:00] LABS: International Normalized Ratio 4.5
[2017-07-24 11:35] LABS: Bedside Glucose 200 mg/dL (70-110)
[2017-07-24] MEDS: Amiodarone 200 MG Tablet PO (13:23)
[2017-07-24] MEDS: Nystatin Ointment 1 APPLIC TOPICAL ×2 (13:24→22:14)
--- NOTE | 2017-07-24 15:53 | CHAPLAIN ---
Type of Pastoral Visit _x__ Initial Visit ___ Follow-up Visit ___ On-call Visit ___ General Patient Visit ___ Spiritual Assessment ___ Family Conference ___ Bereavement ___ Rapid Response ___ Code Blue ___ Other (describe below) Pastoral Care Referral From _x__ Patient ___ Family ___ Nurse ___ Physician ___ Finish Molder ___ Canoe Builder ___ Other (describe below) Sacrament/Intervention _x__ Active listening ___ Anointing ___ Moravian ___ Bereavement ___ Communion ___ Denisse exploration ___ _x__ Life review _x__ Prayer ___ Reconciliation ___ Sacrament of Sick _x__ Supportive presence ___ Wedding ___ Other (describe below) Pastoral Comments
--- NOTE | 2017-07-24 16:17 | PN_ITS ---
Patient Problems: Active and Suspected Problems (Last Updated 06/21/17 @ 08:34 by Stefany Carrion ) Cellulitis (Acute) Subjective: CC: Left leg cellulitis Objective: He is feeling much improved denies any fever or chills. Her INR is elevated at 4.5 she takes Coumadin for A. fib. No evidence of bleeding. Vitals/I&O's: Vital Signs Temp Pulse Resp BP Pulse Ox 98.6 F 66 18 105/50 L 95 07/24/17 08:00 07/24/17 08:00 07/24/17 08:00 07/24/17 08:00 07/24/17 08:00 Oxygen Flow Rate (L/min) 2 Oxygen Delivery Method Nasal Cannula Weight: 94.7 kg Body Mass Index (BMI) 33.7 Intake and Output for Last 24 Hours 07/22/17 07/23/17 07/24/17 23:59 23:59 23:59 Intake Total 1949 / 1949 1806 / 1806 1229 / 1229 Output Total 1650 / 1650 2950 / 2950 1250 / 1250 Balance 299 / 299 -1144 / -1144 -21 / -21 General: Alert, Oriented x3 HEENT: Atraumatic, EOMI Oral: Moist Mucosa Neck: Supple, No JVD, Carotid Bruit, Left Lungs: Clear to auscultation Cardiovascular: Regular rate, Normal S1, Normal S2 Abdomen: Bowel Sounds Present, Soft, Non Tender Extremities: - Neurological: Cranial nerves II-XII grossly intact, Deep Tendon Reflexes 2+/4 and Symmetrical, Motor Exam 5/5 strength throughout Laboratory Results 07/23/17 21:34: POC Glucose 272 H 07/24/17 07:12: PT 43.1 H, INR 4.5 H* 07/24/17 07:41: POC Glucose 113 H 07/24/17 11:31: POC Glucose 200 H Current Medications Acetaminophen (Tylenol) 1,000 mg PO Q8H PRN PRN PRN Reason: MILD PAIN (-310) Last Admin: 07/24/17 05:43 Dose: 1,000 mg Amiodarone HCl (Cordarone) 200 mg PO DAILY [facility] Last Admin: 07/24/17 13:23 Dose: 200 mg Aspirin (Aspirin, Baby) 81 mg PO DAILY@0800 [facility] Last Admin: 07/24/17 07:43 Dose: 81 mg Atorvastatin Calcium (Lipitor) 40 mg PO QHS [facility] Last Admin: 07/23/17 21:36 Dose: 40 mg Carvedilol (Coreg) 6.25 mg PO BID [facility] Last Admin: 07/24/17 07:45 Dose: 6.25 mg Dextrose (D50w Syringe) 0 gm IV X1 PRN; Protocol PRN Reason: Hypoglycemia Furosemide (Lasix) 40 mg PO BID [facility] Last Admin: 07/24/17 07:46 Dose: 40 mg Glucagon () 1 mg IM .X1 PRN PRN Reason: Hypoglycemia Piperacillin Sod/Tazobactam Sod (Zosyn) 3.375 gm in 50 mls @ 12.5 mls/hr IV Q8 [facility] Last Admin: 07/24/17 13:25 Dose: 12.5 mls/hr Sodium Chloride () 250 mls @ 15 mls/hr IV .[id number] PRN PRN Reason: SALINE FLUSH Insulin Aspart (Novolog Flexpen (Bkc)) 0 units SC TIDAC [facility] PRN Reason: Protocol Last Admin: 07/24/17 13:23 Dose: 2 u Insulin Aspart (Novolog Flexpen (Bkc)) 5 units SC BREAKFAST [facility] Last Admin: 07/24/17 07:44 Dose: 5 u Insulin Aspart (Novolog Flexpen (Bkc)) 8 units SC LUNCH [facility] Last Admin: 07/24/17 13:24 Dose: 8 u Insulin Aspart (Novolog Flexpen (Bkc)) 8 units SC DINNER [facility] Last Admin: 07/23/17 17:19 Dose: 8 u Insulin Detemir (Levemir (Bkc)) 42 units SC BREAKFAST [facility] Last Admin: 07/24/17 07:45 Dose: 42 u Levothyroxine Sodium (Synthroid) 75 mcg PO 0600 [facility] Last Admin: 07/24/17 05:43 Dose: 75 mcg Magnesium Hydroxide (Milk Of Magnesia) 30 ml PO DAILY PRN PRN PRN Reason: Constipation Metolazone (Zaroxolyn) 2.5 mg PO MOTH@0930 [facility] Last Admin: 07/24/17 07:43 Dose: 2.5 mg Nystatin (Mycostatin) 1 applic TOPICAL TID [facility] PRN Reason: Protocol Last Admin: 07/24/17 13:24 Dose: 1 applicatio Ondansetron HCl (Zofran Odt) 4 mg PO Q8H PRN PRN Reason: NAUSEA/VOMITING Polyethylene Glycol (Miralax) 17 gm PO DAILY [facility] Last Admin: 07/24/17 07:46 Dose: 17 gm Sodium Chloride () 5 - 30 ml IV UD PRN PRN Reason: SALINE FLUSH Last Admin: 07/22/17 02:30 Dose: 5 ml Spironolactone (Aldactone) 25 mg PO DAILY [facility] Last Admin: 07/24/17 07:45 Dose: 25 mg Medical Necessity - Tobacco Use Smoking Status: Never smoker Assessment/Plan Active and Suspected Problems (Last Updated 06/21/17 @ 08:34 by Stefany Carrion ) Cellulitis (Acute) 1. Left leg cellulitis; receiving IV Zosyn. 2. Chronic Afib; INR is supratherapeutic 4.5 and will begin Coumadin and repeat INR in a.m. 3 CKD III; renal parameters will continue to monitor. 4. Chronic Systolic heart failure; the patient is clinically compensated resume home dose lasix. Code Visit Inpatient E&M: 26222 [facility] L2
[2017-07-24 16:51] LABS: Bedside Glucose 269 mg/dL (70-110)
[2017-07-24] MEDS: Atorvastatin Calcium 40 MG Tablet PO (21:59)
[2017-07-24 22:11] LABS: Bedside Glucose 123 mg/dL (70-110)
[2017-07-25 00:38] VITALS: PULSE 60
[2017-07-25] MEDS: Acetaminophen 500 MG Tablet 1000 MG PO (02:13)
[2017-07-25 02:17] VITALS: BP 117/49; PULSE 66; RESP 18; TEMP 36.4; O2SAT 98
[2017-07-25 04:30] VITALS: PULSE 60
[2017-07-25] MEDS: Nystatin Ointment 1 APPLIC TOPICAL (05:10)
[2017-07-25] MEDS: Levothyroxine 75 MCG Tablet PO (05:10)
[2017-07-25] MEDS: Piperacil/Tazobactam 3.375 GM/50 ML ML IV (05:10)
[2017-07-25 06:12] LABS: Prothrombin Time (Protime)PT. 43.3 SECONDS (11.7-14.9)
[2017-07-25 06:18] LABS: International Normalized Ratio 4.5
[2017-07-25 07:29] VITALS: PULSE 62
[2017-07-25 08:10] VITALS: BP 114/48; PULSE 60; RESP 18; TEMP 36.7; O2SAT 97
[2017-07-25 08:36] LABS: Bedside Glucose 108 mg/dL (70-110)
[2017-07-25] MEDS: Amiodarone 200 MG Tablet PO (08:54)
[2017-07-25] MEDS: Spironolactone 25 MG Tablet PO (08:54)
[2017-07-25] MEDS: Aspirin 81 MG TAB.CHEW PO (08:54)
[2017-07-25] MEDS: Carvedilol 6.25 MG Tablet PO (08:54)
[2017-07-25] MEDS: Furosemide 40 MG Tablet PO (08:55)
[2017-07-25] MEDS: Polyethylene Glycol 3350 17 GM PACKET PO (08:55)
[2017-07-25 09:42] VITALS: O2SAT 96
[2017-07-25 11:51] LABS: Bedside Glucose 193 mg/dL (70-110)
[2017-07-25 12:56] LABS: Pathologist Review Reviewed
[2017-07-25 13:02] LABS: Pathologist Review Reviewed
--- NOTE | 2017-07-25 13:10 | PCM.DC ---
- Discharge Diagnoses Current Active Problems: Current Active and Chronic Problems (Last Updated 06/21/17 @ 08:34 by Stefany Carrion) Cellulitis (Acute) You will use the following diet at home:: Regular Discharge Activity: Return to Normal Activity Allergies/Adverse Reactions: Allergies amoxicillin trihydrate [From Augmentin] Allergy (Verified 07/21/17 22:15) Rash potassium clavulanate [From Augmentin] Allergy (Verified 07/21/17 22:15) Rash Sulfa (Sulfonamide Antibiotics) Allergy (Verified 07/21/17 22:15) Hives vancomycin Allergy (Verified 07/21/17 22:15) Other ROSLYN SYNDROME Medications to take at Discharge Aspirin [Aspirin, Baby] 81 mg PO DAILY@0800 03/04/14 Atorvastatin Calcium [Lipitor] 40 mg PO QHS 03/04/14 Insulin Glargine,Hum.rec.anlog [Lantus] 42 unit SQ BREAKFAST 12/17/16 Levothyroxine [Synthroid] 75 mcg PO 0600 12/17/16 Polyethylene Glycol 3350 [Miralax] 17 gm PO DAILY 12/18/16 Acetaminophen [Tylenol] 1,000 mg PO Q8H PRN PRN tab 02/01/17 Metolazone [Zaroxolyn] 2.5 mg PO MOTH@0930 #4 tab 02/01/17 amiodarone 200 mg tablet 200 mg PO DAILY #30 tab 03/31/17 Furosemide 40 mg PO BID 06/20/17 Insulin Aspart [Novolog Flexpen] 5 units SC BREAKFAST 06/20/17 Insulin Lispro [Humalog KwikPen] 8 unit SQ BID 06/20/17 Spironolactone [Aldactone] 25 mg PO DAILY 06/20/17 carvedilol 6.25 mg tablet 6.25 mg PO BID 06/21/17 Docusate Sodium [Colace] 100 mg PO DAILY 07/22/17 Primary Care Physician: Fiona Cardenas MD [Primary Care Provider] - Proposed Discharge Date: 07/25/17
--- NOTE | 2017-07-25 13:14 | PCM.DC.SUM ---
Discharge Date and Diagnosis - Problem List Patient Problems: Active and Suspected Problems (Last Updated 06/21/17 @ 08:34 by Stefany Carrion) Cellulitis (Acute) Date of Admission: 07/22/17 Date of Discharge: 07/25/17 - Primary Discharge Diagnosis Active and Suspected Problems (Last Updated 06/21/17 @ 08:34 by Stefany Carrion) Cellulitis (Acute) - Secondary Discharge Diagnosis Chronic Problems (Last Updated 06/21/17 @ 08:34 by Stefany Carrion) ICD (implantable cardioverter-defibrillator) in place (Chronic) Aortic stenosis (Chronic) Cardiomyopathy in disease classified elsewhere (Chronic) Paroxysmal atrial tachycardia (Chronic) Ventricular flutter (Chronic) Rheumatic tricuspid insufficiency (Chronic) retirement (current) use of anticoagulants (Chronic) ICD (implantable cardioverter-defibrillator) in place (Chronic) Ventricular tachycardia (paroxysmal) (Chronic) S/P AICD Anemia of chronic disease (Chronic) Cardiomyopathy, noncoronary (Chronic) HTN (hypertension) (Chronic) S/p TAVR (transcatheter aortic valve replacement), bioprosthetic (Chronic) 26 mm Bond Sapein Bioprosthetic Aortic Valve HLD (hyperlipidemia) (Chronic) Biatrial enlargement (Chronic) Severe Mitral valve stenosis and regurgitation (Chronic) Mild to moderate mitral valve stenosis with moderate mitral valve insufficiency Chronic atrial fibrillation (Chronic) Hospital Course and Treatment Operations: None Summary of Care Provided: The patient is a 67 year old female w/ h/o CKD III, CAD, chronic afib, and HTN admitted for cellulitis. Pt has chronic bilateral leg swelling x months. In the last few days, she noted increase swelling and tenderness in her left lower extremity. Was diagnosed with cellulitis and placed on IV Zosyn, she did not have open wounds her legs were wrapped MARCUS. as he has chronic venostasis. Improve was then transitioned to oral doxycycline at the time of discharge. She is recommended to follow-up with her primary care doctor and her bag sewer in 1-2 weeks. [] 1. Left leg cellulitis; given IV Zosyn. Patient is being discharged on p.o. doxycycline. 2. Chronic Afib; INR is supratherapeutic 4.5, Coumadin is now on hold she is to repeat INR in 2 days and need to be dosed by Dr. See's office. 3 CKD III; renal parameters at the time of discharge. 4. Chronic Systolic heart failure; the patient is clinically compensated she will resume home dose lasix. Exam at the time of discharge; vital signs were stable. He was alert and oriented to time place and person. He did not appear to be any form of distress. S1 and S2 heard no murmur or gallop Lung exam was clear to auscultation with no adventitious sounds. Abdomen was soft nontender with normal bowel sounds. extremity ; venostasis with Marcus wraps. Neurologic exam was grossly intact. Discharge Diet: No Restrictions Discharge Activity: Return to Normal Activity Home Medications: Medications to take at Discharge Aspirin [Aspirin, Baby] 81 mg PO DAILY@0800 03/04/14 Atorvastatin Calcium [Lipitor] 40 mg PO QHS 03/04/14 Insulin Glargine,Hum.rec.anlog [Lantus] 42 unit SQ BREAKFAST 12/17/16 Levothyroxine [Synthroid] 75 mcg PO 0600 12/17/16 Polyethylene Glycol 3350 [Miralax] 17 gm PO DAILY 12/18/16 Acetaminophen [Tylenol] 1,000 mg PO Q8H PRN PRN tab 02/01/17 Metolazone [Zaroxolyn] 2.5 mg PO MOTH@0930 #4 tab 02/01/17 amiodarone 200 mg tablet 200 mg PO DAILY #30 tab 03/31/17 Furosemide 40 mg PO BID 06/20/17 Insulin Aspart [Novolog Flexpen] 5 units SC BREAKFAST 06/20/17 Insulin Lispro [Humalog KwikPen] 8 unit SQ BID 06/20/17 Spironolactone [Aldactone] 25 mg PO DAILY 06/20/17 carvedilol 6.25 mg tablet 6.25 mg PO BID 06/21/17 Docusate Sodium [Colace] 100 mg PO DAILY 07/22/17 Doxycycline 100 mg PO BID #10 cap 07/25/17 Following Prescrptions Were Given to Patient: Doxycycline 100 mg PO BID #10 cap Primary Care Physician: Fiona Cardenas MD [Primary Care Provider] - Medical Necessity - Tobacco Use Smoking Status: Never smoker Meaningful Use Info Meaningful Use Diagnoses (Choose all that apply): None applicable Code Visit Inpatient E&M: 55128 Disch Hosp
--- NOTE | 2017-07-27 16:28 | CASEMGMT ---
RN CM placed discharge follow-up call to Elizabeth Ho. Elizabeth reports she has been doing well since discharge. Per Elizabeth's report, she had her INR checked today and has a follow-up scheduled with nurse practitioner at [facility] on Monday. 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 Elizabeth notes her friend has been coming to help her with her dressing changes and has been monitoring me. Elizabeth states she has plenty of food at home and has been eating salads, apples, and cheese cubes. Elizabeth reports no further needs. JORGE MarteN, RN-BC, [facility]
== END 2017-07-25 14:34 | disposition home or self-care (01) | DRG 603 ==
LOC: ED 22:37 → MS3 07-22 00:35
PROVIDERS: Internal Medicine; Admitting Provider Internal Medicine; Emergency Provider Emergency Medicine; Family Provider Internal Medicine; PCP Internal Medicine; Visit Provider Internal Medicine
DX: L03.116 Cellulitis of left lower limb (principal); I13.0 Hypertensive heart and chronic kidney disease with heart failure and stage 1 through stage 4 chronic kidney disease, or unspecified chronic kidney disease; I50.42 Chronic combined systolic (congestive) and diastolic (congestive) heart failure; I47.1 Supraventricular tachycardia; I42.9 Cardiomyopathy, unspecified; E11.22 Type 2 diabetes mellitus with diabetic chronic kidney disease; I48.2 Chronic atrial fibrillation; I08.3 Combined rheumatic disorders of mitral, aortic and tricuspid valves; I87.8 Other specified disorders of veins; N18.3 Chronic kidney disease, stage 3 (moderate); Z79.4 Long term (current) use of insulin; D63.8 Anemia in other chronic diseases classified elsewhere; E78.5 Hyperlipidemia, unspecified; Z95.810 Presence of automatic (implantable) cardiac defibrillator; Z95.4 Presence of other heart-valve replacement; Z79.01 Long term (current) use of anticoagulants; Z79.82 Long term (current) use of aspirin; Z79.899 Other long term (current) drug therapy; I27.20 Pulmonary hypertension, unspecified
CPT/HCPCS: 36415; 80048; 82962; 85025; 85610; 93970; 99282; J7030; J7040; J7050; A4216

== ENCOUNTER 2017-08-21 12:05 | Outpatient (RCR) | payer MEDICARE, SELFPAY ==
[2017-07-27 11:49] LABS: International Normalized Ratio 2.2; Prothrombin Time (Protime)PT. 24.8 SECONDS (11.7-14.9)
[2017-07-31 12:01] LABS: International Normalized Ratio 1.6; Prothrombin Time (Protime)PT. 19.3 SECONDS (11.7-14.9)
[2017-08-07 12:05] LABS: International Normalized Ratio 2.4; Prothrombin Time (Protime)PT. 25.9 SECONDS (11.7-14.9)
[2017-08-21 13:14] LABS: International Normalized Ratio 2.7; Prothrombin Time (Protime)PT. 28.7 SECONDS (11.7-14.9)
== END 2017-08-21 13:00 | disposition home or self-care (01) ==
LOC: LAB 12:05
PROVIDERS: Internal Medicine; Family Provider Internal Medicine; PCP Internal Medicine; Visit Provider Internal Medicine Cardiovascular Disease
DX: I48.0 Paroxysmal atrial fibrillation (principal)
CPT/HCPCS: 36415; 85610

== ENCOUNTER 2017-09-11 10:08 | Outpatient (RCR) | payer MEDICARE, SELFPAY ==
[2017-09-04 12:06] LABS: International Normalized Ratio 3.4; Prothrombin Time (Protime)PT. 34.9 SECONDS (11.7-14.9)
[2017-09-04 12:22] LABS: Hemoglobin A1c 6.5 % (4.2-6.3)
[2017-09-04 12:30] LABS: Vitamin D,25 Hydroxy 18.6 ng/mL (29.95-100.01)
[2017-09-04 13:09] LABS: ALB/GLOB Ratio 0.8 RATIO (0.9-2.4); AST(SGOT) 11 U/L (15-37); Alanine Aminotransfer ALT/SGPT 11 U/L (13-56); Albumin, Serum 3.2 g/dL (3.2-5.0); Alkaline Phosphatase 65 U/L (45-117); Anion Gap 8 (5-15); BUN 75 mg/dL (7-18); BUN/Creat Ratio 41.2 RATIO (10-20); Calcium,Total 8.7 mg/dL (8.5-10.1); Chloride 99 mmol/L (98-107); Creatinine, Serum 1.82 mg/dL (0.55-1.02); EST Glomerular Filtration Rate 29 mL/min (>60); Est Glom Filt Rate - Afr Amer 35 mL/min (>60); Globulin 4.2 g/dL (2.2-4.2); Glucose 127 mg/dL (74-106); Potassium 4.1 mmol/L (3.5-5.1); Protein, Total 7.4 g/dL (6.4-8.2); Sodium Level 138 mmol/L (136-145); T4 Free Direct 1.45 ng/dL (0.76-1.46); Thyroid Stim Hormone (TSH) 2.88 uIU/mL (0.358-3.74)
[2017-09-11 11:36] LABS: International Normalized Ratio 2.7; Prothrombin Time (Protime)PT. 29.1 SECONDS (11.7-14.9)
== END 2017-09-11 11:00 | disposition home or self-care (01) ==
LOC: LAB 10:08
PROVIDERS: Family Provider Internal Medicine; PCP Internal Medicine; Visit Provider Internal Medicine Cardiovascular Disease
DX: I48.0 Paroxysmal atrial fibrillation (principal); E03.9 Hypothyroidism, unspecified; E55.9 Vitamin D deficiency, unspecified; N25.81 Secondary hyperparathyroidism of renal origin; E11.9 Type 2 diabetes mellitus without complications; Z79.4 Long term (current) use of insulin
CPT/HCPCS: 36415; 80053; 82306; 83036; 84439; 84443; 85610

== ENCOUNTER 2017-09-17 09:24 | Inpatient (IN) | payer MEDICARE, SELFPAY ==
[2017-09-17] VITALS (12 sets, daily range): BP systolic 108–116; BP diastolic 51–58; PULSE 61–69; RESP 15–20; TEMP 36.6–37.7; O2SAT 97–99; BMI 35.1; BMI 33.6; BMI 33.7
--- NOTE | 2017-09-17 09:49 | EKG12_ITS ---
Test Reason : CP Blood Pressure : / mmHG Vent. Rate : 063 BPM Atrial Rate : 063 BPM P-R Int : 228 ms QRS Dur : 104 ms QT Int : 498 ms P-R-T Axes : 082 -40 075 degrees QTc Int : 509 ms Sinus rhythm with 1st degree A-V block Left axis deviation Low voltage QRS (LIMB LEADS) Prolonged QT Abnormal ECG Confirmed by UDAY CUELLAR, LUCILLE ([id number]), food editor CAT CONKLIN ([id number]) on 09/20/2017 2:40:32 PM Referred By: JEN Confirmed By:LUCILLE FRYE MD
--- NOTE | 2017-09-17 09:49 | RAD_ITS ---
STUDY: X-RAY CHEST REASON FOR EXAM: Female, 67 years old. Chest pain TECHNIQUE: Single view of the chest was obtained COMPARISON: January 04, 2017 FINDINGS: Cardiac size is enlarged. Mild perihilar congestive changes. Elevated right hemidiaphragm. A left pacemaker device is noted. Valvular prostheses. Calcified granuloma in the left lung. No pneumothorax. Redemonstration of prominent right hilar shadow similar to previous exam. IMPRESSION: Cardiomegaly with mild pulmonary vascular congestion. Overall lung findings have not significant changed since previous examination with subtle airspace opacities in the right lower lobe. Ill-defined nodular density in the right suprahilar region which can be assessed with follow-up chest radiograph in 3-4 months. Electronically Signed: Abe Alamo, at 10:20 EDT Tel , Service support , RAD/Chest 1 View (Portable)
[2017-09-17 10:02] LABS: Absolute Lymphocyte Count 0.29 X10^3/ul (0.83-4.51); Absolute Neutrophil Count 9.5 X10^3/uL (2.0-7.7); Basophil# 0.02 X10^3/uL; Basophil% 0.2 % (0-1); Eosinophil# 0.04 X10^3/uL; Eosinophils% 0.4 % (0-5); Hematocrit 34.8 % (37-47); Hemoglobin 10.7 g/dl (12.0-15.0); Lymphocyte # 0.29 X10^3/ul (4.0); Lymphocyte % 2.8 % (19-41); Mean Corp Hgb Conc 30.7 g/gl (32-36); Mean Corpuscular Hgb 29.3 pg (27.0-32.0); Mean Corpuscular Volume 95.3 fL (81-99); Mean Platelet Vol. 10.9 fl (6.2-12.0); Monocyte# 0.23 X10^3/uL; Monocyte% 2.3 % (0-10); Neutrophil # 9.45 X10^3/uL (2.7-7.7); Neutrophil % 92.6 % (47-70); Platelet Count 157 K/mm3 (150-450); RBC Distribution Width CV 14.2 % (11.6-14.6); RBC Distribution Width SD 47.1 fl (35.1-43.9); Red Blood Count 3.65 M/mm3 (4.2-5.4); White Blood Count 10.2 K/mm3 (4.4-11.0)
[2017-09-17 10:04] LABS: Differential Indicated SCAN CRITERIA MET; POSITIVE COUNT NO; POSITIVE DIFFERENTIAL YES; POSITIVE MORPHOLOGY NO
[2017-09-17] MEDS: Albuterol 2.5 MG/3 ML VIAL.NEB. INHALATION (10:09)
[2017-09-17] MEDS: Ipratropium/Albuterol Sulfate 3 ML AMPUL.NEB INHALATION (10:09)
--- NOTE | 2017-09-17 10:17 | ED.DCSUM_ITS ---
History of Present Illness Chief Complaint: Chest Pain Informant: Patient Onset: Hours - 6-7 Context: Gradual Onset Timing: Continuous Quality: sob. chest tightness. Location: across chest Current Severity: Moderate Maximum Severity: Moderate Worsened by: exertion/walking. doesn't lie down, so ? if orthopnea. Relieved by: rest, but doesn't resolve. hasn't tried other meds. Associated Symptoms: chest tightness, wheezing. chronic unchanged BLE edema. Narrative: Does not have a history of COPD. Has a history of congestive heart failure and had an aortic valve repair for aortic stenosis. Gradual onset of simultaneous symptoms today, has been on Lasix but does not seem to be decreasing her lower extremity edema. Has a history of AICD/pacemaker. - Past Medical History (1) Anemia of chronic disease Status: Chronic (2) Aortic stenosis Status: Chronic Comment: s/p TAVR (3) Biatrial enlargement Status: Chronic Comment: Severe (4) Cardiomyopathy, noncoronary Status: Chronic (5) Chronic atrial fibrillation Status: Chronic (6) HLD (hyperlipidemia) Status: Chronic (7) HTN (hypertension) Status: Chronic (8) ICD (implantable cardioverter-defibrillator) in place Status: Chronic (9) Mitral valve stenosis and regurgitation Status: Chronic Comment: Mild to moderate mitral valve stenosis with moderate mitral valve insufficiency (10) Paroxysmal atrial tachycardia Status: Chronic (11) Rheumatic tricuspid insufficiency Status: Chronic (12) S/p TAVR (transcatheter aortic valve replacement), bioprosthetic Status: Chronic Comment: 26 mm Bond Sapein Bioprosthetic Aortic Valve (13) Ventricular tachycardia (paroxysmal) Status: Chronic Comment: S/P AICD Past Medical History - Allergies and Home Meds Allergies/Adverse Reactions: Allergies amoxicillin trihydrate [From Augmentin] Allergy (Verified 09/17/17 09:25) Rash potassium clavulanate [From Augmentin] Allergy (Verified 09/17/17 09:25) Rash Sulfa (Sulfonamide Antibiotics) Allergy (Verified 09/17/17 09:25) Hives vancomycin Allergy (Verified 09/17/17 09:25) Other ROSLYN SYNDROME Home Medications: Home Medications Medication Instructions Recorded Aspirin [Aspirin, Baby] 81 mg PO DAILY@0800 03/04/14 Insulin Glargine,Hum.rec.anlog 42 unit SQ BREAKFAST 08/26/17 [Lantus] Levothyroxine [Synthroid] 75 mcg PO 0600 12/17/16 Polyethylene Glycol 3350 [Miralax] 17 gm PO DAILY 12/18/16 Acetaminophen [Tylenol] 1,000 mg PO Q8H PRN PRN tab 02/01/17 amiodarone 200 mg tablet 200 mg PO DAILY #30 tab 03/31/17 Furosemide 40 mg PO BID 06/20/17 Insulin Aspart [Novolog Flexpen] 5 units SC BREAKFAST 06/20/17 Spironolactone [Aldactone] 25 mg PO DAILY 06/20/17 carvedilol 6.25 mg tablet 6.25 mg PO BID 06/21/17 Docusate Sodium [Colace] 100 mg PO DAILY 07/22/17 warfarin 2 mg tablet 2 mg PO SUTUWETHFRSA 08/07/17 atorvastatin 40 mg tablet 40 mg PO QHS #90 tab 09/11/17 Insulin Aspart [Novolog Flexpen] 8 unit SQ BID 09/17/17 Metolazone [Zaroxolyn] 2.5 mg PO MOWEFR 09/17/17 Warfarin [Coumadin ([facility]KC)] 4 mg PO MO 09/17/17 Primary Care Physician: Fiona Cardenas MD [Primary Care Provider] - Surgical History: appendectomy, tonsillectomy, - - S/P TAVR; S/P ICD Smoking Status: Never smoker - Family History Maternal Family History: Family History (Last Updated 06/21/17 @ 08:36 by Stefany Carrion) Father CVA (cerebral vascular accident) Valvular heart disease Presence of permanent cardiac pacemaker Mother CVA (cerebral vascular accident) Other Family history of CVA Family History: Reports: - - heart disease, stroke Paternal Family History: Family History (Last Updated 06/21/17 @ 08:36 by Stefany Carrion) Father CVA (cerebral vascular accident) Valvular heart disease Presence of permanent cardiac pacemaker Mother CVA (cerebral vascular accident) Other Family history of CVA Family History: Reports: - - father with kidney disease, heart disease and stroke Review of Systems All systems negative except as indicated General: Reports: Malaise. Denies: Chills, Fever Cardiovascular: Reports: Chest pain. Denies: Palpitations, Heart racing Respiratory: Reports: Dyspnea, Cough, Dyspnea on exertion. Denies: Sputum Gastrointestinal: Denies: Abdominal pain, Nausea, Vomiting, Diarrhea, Melena Musculoskeletal: Reports: Swelling. Denies: Neck pain, Back pain, Extremity Pain Physical Exam Vital Signs/Narrative: Vital Signs Temp Pulse Resp BP Pulse Ox 09/17/17 09:25 98.0 F 64 20 H 116/58 L 97 Inital Vital Signs reviewed: Yes General: Well nourished, Well developed, Obese Head: Normocephalic, Atraumatic Eyes: Perrl, EOMI ENT: Moist mucous membranes, No rhinorrhea Neck: Supple, Nontender, No JVD - Exam somewhat limited by obesity Cardiovascular: Regular rate, Regular rhythm Respiratory: No distress, Diminished - Throughout, symmetrically Abdomen: Soft, Nontender, Nondistended, Normal bowel sounds Back: Nontender, Normal Inspection Extremities: Nontender, Edema - 3+ bilateral lower extremity, symmetric. Skin: Normal color, No rash Neurological: Alert, Oriented x3, Cranial nerves II-XII grossly intact, Normal Strength, Normal Sensation Psychological: Normal affect Diagnostic/Tx/Re-eval Impressions Chest X-Ray 09/17/17 09:49 09/17/17 09:49 Chest 1 View (Portable) [RAD] Stat Laboratory Results 09/17/17 09/17/17 09/17/17 Range/Units 09:50 09:50 09:50 WBC 10.2 (4.4-11.0) K/mm3 RBC 3.65 L (4.2-5.4) M/mm3 Hgb 10.7 L (12.0-15.0) g/dl Hct 34.8 L (37-47) % MCV 95.3 (81-99) fL MCH 29.3 (27.0-32.0) pg MCHC 30.7 L (32-36) g/gl RDW 14.2 (11.6-14.6) % RDW Differential 47.1 H (35.1-43.9) fl Plt Count 157 (150-450) K/mm3 MPV 10.9 (6.2-12.0) fl Immature Gran % (Auto) 1.700 H (0.0-0.9) % Neut % (Auto) 92.6 H (47-70) % Lymph % (Auto) 2.8 L (19-41) % [place] % (Auto) 2.3 (0-10) % Eos % (Auto) 0.4 (0-5) % Baso % (Auto) 0.2 (0-1) % Absolute Neuts (auto) 9.5 H (2.0-7.7) X10^3/uL Absolute Lymphs (auto) 0.29 L (0.83-4.51) X10^3/ul Total Counted Not Reportable Sodium 137 (136-145) mmol/L Potassium 4.1 (3.5-5.1) mmol/L Chloride 98 (98-107) mmol/L Carbon Dioxide 32.0 (21.0-32.0) mmol/L Anion Gap 7 (5-15) BUN 77 H (7-18) mg/dL Creatinine 2.02 H (0.55-1.02) mg/dL Estim Creat Clear Calc 24.61 ml/min Est GFR (MDRD) Af Amer 31 L (>60) mL/min Est GFR (MDRD) Non-Af 26 L (>60) mL/min BUN/Creatinine Ratio 38.1 H (10-20) RATIO Glucose 307 H (74-106) mg/dL Calcium 8.3 L (8.5-10.1) mg/dL Troponin I < 0.015 (<0.045) ng/mL B-Natriuretic Peptide 203.7 H (0-100) pg/mL - Rhythm Strip Rhythm Strip: Sinus Rhythm Rate: 65 Ectopy: None - EKG 1 Interpretation: Sinus Rhythm, No Acute Injury Pattern, LAFB, - - prolonged QTc - Medical Decision Making Patient did feel little better after a duo nebulizer treatment but still had symptoms. Her dyspnea is significantly worse with light exertion and she is uncomfortable going home even though her troponin is negative and her EKG is unremarkable. I do not think she is having acute coronary syndrome. X-ray was suspicious for subtle airspace densities in the right lower lobe, but I do not think this represents pneumonia. She does have a white blood count at the high end of normal with a slight leftward shift, but she has not been coughing, despite being dyspneic. She states that she feels fluid overloaded and I think that is probably related as well, especially with the edema in her legs and the fact that the diuretics are not helping. She states she was placed on Zaroxolyn 3 times a week recently from her doctor in [place]. I discussed with Dr. See, who agrees that medically, inpatient or outpatient may be reasonable. He will evaluate her if admitted. Will discuss with hospitalist. ED Disposition - Plan for ED Patient: Disposition: Acute Care Hospital [facility] Chief Complaint: Chest Pain Diagnosis: CHF exacerbation, JAYESH (acute kidney injury)
[2017-09-17 10:25] LABS: Anion Gap 7 (5-15); BUN 77 mg/dL (7-18); BUN/Creat Ratio 38.1 RATIO (10-20); Calcium,Total 8.3 mg/dL (8.5-10.1); Chloride 98 mmol/L (98-107); Creatinine, Serum 2.02 mg/dL (0.55-1.02); EST Glomerular Filtration Rate 26 mL/min (>60); Est Glom Filt Rate - Afr Amer 31 mL/min (>60); Estimated Creatinine Clearance 24.61 ml/min; Glucose 307 mg/dL (74-106); Potassium 4.1 mmol/L (3.5-5.1); Sodium Level 137 mmol/L (136-145)
[2017-09-17 10:36] LABS: BNP,B-Type NATRIURETIC PEPTIDE 203.7 pg/mL (0-100)
[2017-09-17] MEDS: Furosemide 40 MG/4 ML Vial IV ×2 (14:48→22:13)
--- NOTE | 2017-09-17 15:04 | HP.PCM_ITS ---
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 (9) ICD (implantable cardioverter-defibrillator) in place Status: Chronic (10) Ventricular tachycardia (paroxysmal) Status: Chronic Comment: S/P AICD (11) Anemia of chronic disease Status: Chronic (12) Cardiomyopathy, noncoronary Status: Chronic (13) HTN (hypertension) Status: Chronic Qualifiers: Hypertension type: essential hypertension Qualified Code(s): I10 - Essential (primary) hypertension (14) S/p TAVR (transcatheter aortic valve replacement), bioprosthetic Status: Chronic Comment: 26 mm Bond Sapein Bioprosthetic Aortic Valve (15) HLD (hyperlipidemia) Status: Chronic Qualifiers: Hyperlipidemia type: mixed hyperlipidemia Qualified Code(s): E78.2 - Mixed hyperlipidemia (16) Biatrial enlargement Status: Chronic Comment: Severe (17) Mitral valve stenosis and regurgitation Status: Chronic Comment: Mild to moderate mitral valve stenosis with moderate mitral valve insufficiency (18) Shortness of breath Status: Acute (19) Acute systolic (congestive) heart failure Status: Acute (20) Chronic atrial fibrillation Status: Chronic History of Present Illness Date of Admission: 09/17/17 Chief Complaint: Chest pain, increased shortness of breath. The patient is a 67 year old F who presents to the emergency room with chest pain, increased lower extremity swelling and increased shortness of breath. Patient states she had chest pain between 2 and 3 AM this morning which woke her from her sleep. Pain was pressure-like in nature and in the center of her chest. No pain radiation. Patient states the pain was 7 out of 10 and continued until arriving in the emergency room. She denies diaphoresis, dizziness, lightheadedness. Denies palpitations. Complains of associated shortness of breath although she states she has ongoing shortness of breath. She is chronically on 2 L nasal cannula due to bad heart. Patient follows with Dr. See. She states she cannot have a stress test due to fear of being in closed places. Patient has a past medical history of chronic systolic CHF, CAD, nonischemic cardiomyopathy, paroxysmal atrial fibrillation, type 2 diabetes mellitus, history of bioprosthetic aortic valve replacement, history of ventricular tachycardia status post AICD, chronic venous insufficiency bilateral lower extremities, hypertension, hyperlipidemia, rheumatoid arthritis, chronic kidney disease stage III, obesity, mitral valve stenosis and regurgitation, chronic hypoxic respiratory failure. 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 (Chronic) ICD (implantable cardioverter-defibrillator) in place (Chronic) Ventricular tachycardia (paroxysmal) (Chronic) S/P AICD Anemia of chronic disease (Chronic) Cardiomyopathy, noncoronary (Chronic) HTN (hypertension) (Chronic) S/p TAVR (transcatheter aortic valve replacement), bioprosthetic (Chronic) 26 mm Bond Sapein Bioprosthetic Aortic Valve HLD (hyperlipidemia) (Chronic) Biatrial enlargement (Chronic) Severe Mitral valve stenosis and regurgitation (Chronic) Mild to moderate mitral valve stenosis with moderate mitral valve insufficiency Chronic atrial fibrillation (Chronic) Allergies amoxicillin trihydrate [From Augmentin] Allergy (Verified 09/17/17 09:25) Rash potassium clavulanate [From Augmentin] Allergy (Verified 09/17/17 09:25) Rash Sulfa (Sulfonamide Antibiotics) Allergy (Verified 09/17/17 09:25) Hives vancomycin Allergy (Verified 09/17/17 09:25) Other ROSLYN SYNDROME Home Medications: Ambulatory Orders Medication Instructions Recorded Aspirin [Aspirin, Baby] 81 mg PO DAILY@0800 03/04/14 Insulin Glargine,Hum.rec.anlog 42 unit SQ BREAKFAST 12/17/16 [Lantus] Levothyroxine [Synthroid] 75 mcg PO 0600 12/17/16 Polyethylene Glycol 3350 [Miralax] 17 gm PO DAILY 12/18/16 Acetaminophen [Tylenol] 1,000 mg PO Q8H PRN PRN tab 02/01/17 amiodarone 200 mg tablet 200 mg PO DAILY #30 tab 03/31/17 Furosemide 40 mg PO BID 06/20/17 Insulin Aspart [Novolog Flexpen] 5 units SC BREAKFAST 06/20/17 Spironolactone [Aldactone] 25 mg PO DAILY 06/20/17 carvedilol 6.25 mg tablet 6.25 mg PO BID 06/21/17 Docusate Sodium [Colace] 100 mg PO DAILY 07/22/17 warfarin 2 mg tablet 2 mg PO SUTUWETHFRSA 08/07/17 atorvastatin 40 mg tablet 40 mg PO QHS #90 tab 09/11/17 Insulin Aspart [Novolog Flexpen] 8 unit SQ BID 09/17/17 Metolazone [Zaroxolyn] 2.5 mg PO MOWEFR 09/17/17 Warfarin [Coumadin (PBKC)] 4 mg PO MO 09/17/17 Surgical History: appendectomy, tonsillectomy, - - S/P TAVR; S/P ICD Psychiatric History: No pertinent psych hx 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 Denies: Light Headedness, Palpitations, Syncope Respiratory: Reports: Shortness of breath upon exertion. Denies: Cough, Sputum production, Wheezing Gastrointestinal: Denies: Abdominal Pain, Nausea, Vomiting Genitourinary: Denies: Dysuria Musculoskeletal: Denies: Joint Pain, Joint Tenderness Skin: Denies: Rash, Wounds Neurological: Denies: Numbness, Tingling, Focal weakness Psychiatric: Denies: Anxiety, Depression, Homicidal Ideations, Suicidal Ideations Hematologic/ Lymphatic: Denies: Easy Bruising, Easy Bleeding VTE Information - Inpt Only VTE Present on Admission: No VTE Mechan Device Prophylaxis: Knee High TATYANA Hose VTE Pharm Prophylaxis ordered?: Yes Patient Problems: Active and Suspected Problems (Last Updated 06/21/17 @ 08:34 by Stefany Carrion ) CHF exacerbation (Acute) JAYESH (acute kidney injury) (Acute) - Physical Exam General: Alert, Oriented x3, Cooperative HEENT: Atraumatic, PERRLA, EOMI, Normocephalic Neck: Supple, No JVD, Negative Carotid Bruits Lungs: Diminished, - - Scattered crackles bilateral bases Cardiovascular: Regular rate, Regular Rhythm, Normal S1, Normal S2, Murmur Abdomen: Bowel Sounds Present, Soft, Non Tender, Non-Distended, Obese Extremities: No clubbing, No cyanosis, Edema - BLLE Skin: No rashes, No breakdown Musculoskeletal: No Tenderness to Palpation of Joints or Extremities Neurological: Cranial nerves II-XII grossly intact, Neuro grossly intact Psych/Mental Status: Normal Affect, Appropriate Vital Signs Temp Pulse Resp BP Pulse Ox 98 F 62 16 114/54 L 98 09/17/17 14:20 09/17/17 14:20 09/17/17 13:10 09/17/17 14:20 09/17/17 14:19 Oxygen Flow Rate (L/min) 2 Oxygen Delivery Method Nasal Cannula Weight: 98.7 kg Body Mass Index (BMI) 35.1 Finger Stick Blood Glucose 261 Laboratory Tests Past 24 Hrs 09/17/17 09/17/17 09/17/17 09:50 09:50 09:50 WBC 10.2 RBC 3.65 L Hgb 10.7 L Hct 34.8 L MCV 95.3 MCH 29.3 MCHC 30.7 L RDW 14.2 RDW Differential 47.1 H Plt Count 157 MPV 10.9 Immature Gran % (Auto) 1.700 H Neut % (Auto) 92.6 H Lymph % (Auto) 2.8 L [place] % (Auto) 2.3 Eos % (Auto) 0.4 Baso % (Auto) 0.2 Absolute Neuts (auto) 9.5 H Absolute Lymphs (auto) 0.29 L Total Counted Not Reportable Sodium 137 Potassium 4.1 Chloride 98 Carbon Dioxide 32.0 Anion Gap 7 BUN 77 H Creatinine 2.02 H Estim Creat Clear Calc 24.61 Est GFR (MDRD) Af Amer 31 L Est GFR (MDRD) Non-Af 26 L BUN/Creatinine Ratio 38.1 H Glucose 307 H Calcium 8.3 L Troponin I < 0.015 B-Natriuretic Peptide 203.7 H Assessment/Plan Active and Suspected Problems (Last Updated 06/21/17 @ 08:34 by Stefany Carrion ) CHF exacerbation (Acute) JAYESH (acute kidney injury) (Acute) 1. Acute on chronic systolic CHF exacerbation-chest x-ray on admission with mild pulmonary vascular congestion. BNP 203. Echocardiogram 06/2017 showed EF 47%, mild global left ventricular systolic dysfunction, bioprosthetic aortic valve, pulmonary artery systolic pressure 50 mmHg, moderate pulmonary hypertension. No significant change compared to prior study. Continue home metolazone regimen. IV Lasix 40 mg every 8. Daily weight. Strict I&O. Continue TATYANA hose bilateral lower extremities. 1500 Fluid restriction. Cardiology consult. Patient follows with Dr. See. 2. Chest pain-EKG without evidence of ST-T changes. Cycle enzymes. Repeat EKG in a.m. Consult cardiology. Consider stress test after further diuresis. 3. Chronic hypoxic respiratory failure-secondary to #1. Continue supplement oxygen to maintain O2 at or above 90%. 4. CAD-continue aspirin, statin, carvedilol. 5. Paroxysmal atrial fibrillation-currently sinus rhythm. Continue home amiodarone, carvedilol, Coumadin regimen. 6. Type 2 diabetes [id number] before meals at bedtime with sliding scale insulin. Continue home Lantus and scheduled NovoLog regimen. 7. Nonischemic cardiomyopathy-EF 47%. 8. History of bioprosthetic aortic valve replacement (TAVR) 9. Mitral valve stenosis and regurgitation 10. History of ventricular tachycardia status post AICD 11. Chronic venous insufficiency bilateral lower extremities- Continue BL tatyana hose. 12. Hypertension-stable, continue home regimen. 13. Hyperlipidemia-Continue statin. 14. Rheumatoid arthritis 15. Chronic kidney disease stage III-stable, at baseline. Monitor BMP. 16. Obesity-Encourage diet and lifestyle DVT prophylaxis- Heparin SC This patient was seen by NORMA Bledsoe under the supervision of Dr. Mendez.
--- NOTE | 2017-09-17 16:41 | PCM.CONS.C ---
Problem List (1) CHF exacerbation Status: Acute (2) Atrial fibrillation Status: Chronic Qualifiers: Atrial fibrillation type: paroxysmal Qualified Code(s): I48.0 - Paroxysmal atrial fibrillation (3) Ventricular tachycardia (paroxysmal) Status: Chronic Comment: S/P AICD (4) S/p TAVR (transcatheter aortic valve replacement), bioprosthetic Status: Chronic Comment: 26 mm Bond Sapein Bioprosthetic Aortic Valve (5) Mitral valve stenosis and regurgitation Status: Chronic Comment: Mild to moderate mitral valve stenosis with moderate mitral valve insufficiency (6) Cardiomyopathy in disease classified elsewhere Status: Chronic (7) CAD (coronary artery disease) Status: Chronic Qualifiers: Coronary Disease-Associated Artery/Lesion type: stebbins artery (8) ICD (implantable cardioverter-defibrillator) in place Status: Chronic (9) HLD (hyperlipidemia) Status: Chronic Qualifiers: Hyperlipidemia type: mixed hyperlipidemia Qualified Code(s): E78.2 - Mixed hyperlipidemia (10) HTN (hypertension) Status: Chronic Qualifiers: Hypertension type: essential hypertension Qualified Code(s): I10 - Essential (primary) hypertension (11) Chronic renal insufficiency Status: Chronic Reason for Consult Date of Consultation: 09/17/17 History of Present Illness: The patient is a 67 year old white female with a past cardiovascular history which has included underlying CHF, paroxysmal atrial fibrillation, paroxysmal ventricular tachycardia, status post transcatheter aortic valve replacement, mitral stenosis/insufficiency, non-CAD related cardiomyopathy, ICD placement, hyperlipidemia, hypertension, diabetes mellitus, chronic renal insufficiency who presents for evaluation of chest discomfort and findings compatible with recurrent acute on chronic CHF. She notes she was recently evaluated by her [facility] truck rental clerk. She states that he adjusted her diuretic therapy to increase her metolazone therapy. She states he noted that she was not a candidate for any type of mitral valve intervention. Thus she was to be treated medically. She notes earlier this day she noted chest tightness. She was more short of breath and dyspneic. She has had ongoing peripheral pitting edema. She presented to the emergency department for further evaluation. She was thought to have evidence of acute on chronic CHF. She was subsequently brought into the hospital for further evaluation. She has denied any episodes of palpitations or ICD discharge. There has been no episodes of near syncope or syncope. She did have a transthoracic echocardiogram performed on 07/10/2017. At that time her left ventricle was thought to demonstrate mild global left ventricular systolic dysfunction with a reported LVEF of 47% with moderate left atrial enlargement and mild right atrial enlargement and mild mitral annular calcification with mitral valve spectral Doppler findings suggestive of moderate mitral valve stenosis and color-flow Doppler findings reported compatible with mild mitral valve insufficiency. She had mild to moderate TR. There was a bioprosthetic aortic valve replacement noted with mild perivalvular insufficiency. Her estimated RV systolic pressure was 50 mmHg compatible with pulmonary hypertension. She had a troponin I level performed which was negative. She had an ECG performed which demonstrated sinus rhythm with a first-degree AV block with left axis deviation and low voltage QRS in the limb leads and poor R-wave progression. A chest x-ray was performed. It suggested possible increased pulmonary vascularity. He was treated with IV diuretic therapy. She was subsequently transferred to the PCU. [] Past Medical History Allergies/Adverse Reactions: Allergies amoxicillin trihydrate [From Augmentin] Allergy (Verified 09/17/17 09:25) Rash potassium clavulanate [From Augmentin] Allergy (Verified 09/17/17 09:25) Rash Sulfa (Sulfonamide Antibiotics) Allergy (Verified 09/17/17 09:25) Hives vancomycin Allergy (Verified 09/17/17 09:25) Other ROSLYN SYNDROME Home Medications: Ambulatory Orders Medication Instructions Recorded Aspirin [Aspirin, Baby] 81 mg PO DAILY@0800 03/04/14 Insulin Glargine,Hum.rec.anlog 42 unit SQ BREAKFAST 12/17/16 [Lantus] Levothyroxine [Synthroid] 75 mcg PO 0600 12/17/16 Polyethylene Glycol 3350 [Miralax] 17 gm PO DAILY 12/18/16 Acetaminophen [Tylenol] 1,000 mg PO Q8H PRN PRN tab 02/01/17 amiodarone 200 mg tablet 200 mg PO DAILY #30 tab 03/31/17 Furosemide 40 mg PO BID 06/20/17 Insulin Aspart [Novolog Flexpen] 5 units SC BREAKFAST 06/20/17 Spironolactone [Aldactone] 25 mg PO DAILY 06/20/17 carvedilol 6.25 mg tablet 6.25 mg PO BID 06/21/17 Docusate Sodium [Colace] 100 mg PO DAILY 07/22/17 warfarin 2 mg tablet 2 mg PO SUTUWETHFRSA 08/07/17 atorvastatin 40 mg tablet 40 mg PO QHS #90 tab 09/11/17 Insulin Aspart [Novolog Flexpen] 8 unit SQ BID 09/17/17 Metolazone [Zaroxolyn] 2.5 mg PO MOWEFR 09/17/17 Warfarin [Coumadin (PBKC)] 4 mg PO MO 09/17/17 Past Medical History (Chronic Problems): Chronic Problems (Last Updated 06/21/17 @ 08:34 by Stefany Carrion) Atrial fibrillation (Chronic) Chronic renal insufficiency (Chronic) CAD (coronary artery disease) (Chronic) ICD (implantable cardioverter-defibrillator) in place (Chronic) Aortic stenosis (Chronic) s/p TAVR Cardiomyopathy in disease classified elsewhere (Chronic) Paroxysmal atrial tachycardia (Chronic) Ventricular flutter (Chronic) Rheumatic tricuspid insufficiency (Chronic) 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 (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) use of anticoagulants (Chronic) ICD (implantable cardioverter-defibrillator) in place (Chronic) Ventricular tachycardia (paroxysmal) (Chronic) S/P AICD Anemia of chronic disease (Chronic) Cardiomyopathy, noncoronary (Chronic) HTN (hypertension) (Chronic) S/p TAVR (transcatheter aortic valve replacement), bioprosthetic (Chronic) 26 mm Bond Sapein Bioprosthetic Aortic Valve HLD (hyperlipidemia) (Chronic) Biatrial enlargement (Chronic) Severe Mitral valve stenosis and regurgitation (Chronic) Mild to moderate mitral valve stenosis with moderate mitral valve insufficiency Chronic atrial fibrillation (Chronic) Surgical History: appendectomy, tonsillectomy, - - S/P TAVR; S/P ICD Psychiatric History: No pertinent psych hx PARTNER CCO History: No pertinent PARTNER CCO history - *Family History Maternal Family History: Family History (Last Updated 06/21/17 @ 08:36 by Stefany Carrion) Father CVA (cerebral vascular accident) Valvular heart disease Presence of permanent cardiac pacemaker Mother CVA (cerebral vascular accident) Other Family history of CVA History Items: - - heart disease, stroke Paternal Family History: Family History (Last Updated 06/21/17 @ 08:36 by Stefany Carrion) Father CVA (cerebral vascular accident) Valvular heart disease Presence of permanent cardiac pacemaker Mother CVA (cerebral vascular accident) Other Family history of CVA History Items: - - father with kidney disease, heart disease and stroke Lives: Alone Smoking Status: Never smoker Alcohol: None Drugs: None Review of Systems - Review of Systems General: Denies: Fever, Night Sweats, Fatigue Cardiovascular: Reports: Chest Discomfort, Chest Discomfort at Rest, Shortness of Breath, Shortness of Breath at Rest, Orthopnea, Peripheral Edema. Denies: PND, Palpitations, Lightheadedness, Dizziness, Near Syncope, Syncope Respiratory: Reports: Shortness of Breath. Denies: Cough, Sputum Production, Hemoptysis Gastrointestinal: Denies: Hematemesis, Hematochezia, Melena Genitourinary: Denies: Dysuria, Hematuria Skin: Denies: Rash Subjectve: This is a 67-year-old white female who appears to be resting reasonably comfortably at the moment in no acute distress. Objective: Vital Signs Temp Pulse Resp BP Pulse Ox 99.8 F H 65 16 114/53 L 97 09/17/17 16:15 09/17/17 16:15 09/17/17 16:15 09/17/17 16:15 09/17/17 16:15 Oxygen Flow Rate (L/min) 2 Oxygen Delivery Method Nasal Cannula Weight: 208 lb 8.917 oz Body Mass Index (BMI) 33.6 General: Awake, Alert, Oriented x 3, Cooperative, No Acute Distress, Obese HEENT: Atraumatic, Normocephalic, PERRL, EOMI, Sclera Non Icteric Oral: Moist Mucosa Neck: Supple, Good ROM, No JVD Lungs: Rales - Deandre Bases Cardiovascular: Regular Rhythm, Normal S1, Normal S2 Murmur Murmur: Grade 2/6, Harsh, Mid Systolic, LLSB, LVOT, Sternal Notch Vascular: No Carotid Bruits Abdomen: Bowel Sounds Present, Soft, Non Tender Extremities: Moderate RLE Edema, Moderate LLE Edema Rhythm: Sinus rhythm EKG: As noted above ECHO: As noted above: Please see official report Cardiac Cath: 03/04/2014: [facility]: Left main normal; LAD with diffuse mild luminal irregularities; LCx with OM 2 with 30-40% stenosis; RCA being a small nondominant vessel with minimal luminal irregularities CT Surgery: 09/10/2013: Trans-cutaneous aortic valve replacement: 26 mm Bond Stephanie prosthetic aortic valve Holter monitor: 06/27/2013: [facility]: Sinus rhythm with PACs and PVCs ICD: [employer]: [employer]: Model number: [id number]: Serial number: [id number]: Date implanted: 08/14/2014: Dual-chamber ICD CXR: As noted above: Please see official report Assessment/Plan 1. Acute on chronic systolic CHF The patient presents with signs and symptoms compatible with acute on chronic systolic CHF. This is a recurrent event for her despite her attempting to monitor her diet and take her medications appropriately. At the present time she will continue medical therapy. This will include IV diuresis. Her other medications can be adjusted as needed. 2. Paroxysmal atrial fibrillation Her rate and rhythm will be followed. She will continue medical management with rate control therapy, antiarrhythmic therapy, and anticoagulant therapy as deemed appropriate. 3. Paroxysmal ventricular tachycardia The patient does have an underlying ICD in place. It has been functioning appropriately. She will continue medical management with her beta-kodi, antiarrhythmic therapy as deemed appropriate, and her ICD in place. 4. TAVR The patient's bioprosthetic heart valve was recently evaluated. It was functioning appropriately. She recently had her [facility] follow-up visit. There were no additional recommendations made for further evaluation or care of the aortic valve other than continued medical management and [place] antibiotic prophylaxis. 5. Mitral valve disorder with mitral valve stenosis/insufficiency This was reassessed per the patient at the [facility] Main campus. She states she was not a candidate for any further intervention/surgery. She will need to continue medical management as best as possible to compensate for this as this may be contributing to her recurrent acute on chronic systolic CHF mediated events. 6. Non-CAD related cardiomyopathy The patient has a history of a non-CAD related cardiomyopathy with diminished LV systolic function. She will continue medical management with adjustment as needed based on her recurrent acute on chronic systolic CHF event. 7. CAD The patient does have a history of underlying CAD. Her previous findings are as noted above. She needs to continue risk factor modification medical therapy. She will be monitored for any obvious concerns of the development/progression of CAD leading to an acute coronary syndrome, etc. She then can be reassessed as needed. 8. ICD The patient does have an ICD in place. It has been evaluated in the past. It has been functioning appropriately. 9. Hyperlipidemia The patient will continue medical management. 10. Hypertension The patient will continue antihypertensive therapy with adjustment as needed. 11. Diabetes mellitus The patient will continue under the care of internal medicine. 12. Chronic renal insufficiency Patient will continue to have her renal function followed as her medications are adjusted and her clinical course progresses. Comment: The above was discussed with the patient and the [facility] emergency department staff. This note was generated with [email or web address] software. It may contain incorrect words, spelling, and punctuation that were not noted in checking the note before signing.
[2017-09-17 16:50] LABS: Bedside Glucose 287 mg/dL (70-110)
--- NOTE | 2017-09-17 16:53 | CON.PCM_ITS ---
Problem List (1) CHF exacerbation Status: Acute (2) Atrial fibrillation Status: Chronic Qualifiers: Atrial fibrillation type: paroxysmal Qualified Code(s): I48.0 - Paroxysmal atrial fibrillation (3) Ventricular tachycardia (paroxysmal) Status: Chronic Comment: S/P AICD (4) S/p TAVR (transcatheter aortic valve replacement), bioprosthetic Status: Chronic Comment: 26 mm Bond Sapein Bioprosthetic Aortic Valve (5) Mitral valve stenosis and regurgitation Status: Chronic Comment: Mild to moderate mitral valve stenosis with moderate mitral valve insufficiency (6) Cardiomyopathy in disease classified elsewhere Status: Chronic (7) CAD (coronary artery disease) Status: Chronic Qualifiers: Coronary Disease-Associated Artery/Lesion type: [place] artery (8) ICD (implantable cardioverter-defibrillator) in place Status: Chronic (9) HLD (hyperlipidemia) Status: Chronic Qualifiers: Hyperlipidemia type: mixed hyperlipidemia Qualified Code(s): E78.2 - Mixed hyperlipidemia (10) HTN (hypertension) Status: Chronic Qualifiers: Hypertension type: essential hypertension Qualified Code(s): I10 - Essential (primary) hypertension (11) Chronic renal insufficiency Status: Chronic Reason for Consult Date of Consultation: 09/17/17 History of Present Illness: The patient is a 67 year old white female with a past cardiovascular history which has included underlying CHF, paroxysmal atrial fibrillation, paroxysmal ventricular tachycardia, status post transcatheter aortic valve replacement, mitral stenosis/insufficiency, non-CAD related cardiomyopathy, ICD placement, hyperlipidemia, hypertension, diabetes mellitus, chronic renal insufficiency who presents for evaluation of chest discomfort and findings compatible with recurrent acute on chronic CHF. She notes she was recently evaluated by her [facility] splicer apprentice. She states that he adjusted her diuretic therapy to increase her metolazone therapy. She states he noted that she was not a candidate for any type of mitral valve intervention. Thus she was to be treated medically. She notes earlier this day she noted chest tightness. She was more short of breath and dyspneic. She has had ongoing peripheral pitting edema. She presented to the emergency department for further evaluation. She was thought to have evidence of acute on chronic CHF. She was subsequently brought into the hospital for further evaluation. She has denied any episodes of palpitations or ICD discharge. There has been no episodes of near syncope or syncope. She did have a transthoracic echocardiogram performed on 07/10/2017. At that time her left ventricle was thought to demonstrate mild global left ventricular systolic dysfunction with a reported LVEF of 47% with moderate left atrial enlargement and mild right atrial enlargement and mild mitral annular calcification with mitral valve spectral Doppler findings suggestive of moderate mitral valve stenosis and color-flow Doppler findings reported compatible with mild mitral valve insufficiency. She had mild to moderate TR. There was a bioprosthetic aortic valve replacement noted with mild perivalvular insufficiency. Her estimated RV systolic pressure was 50 mmHg compatible with pulmonary hypertension. She had a troponin I level performed which was negative. She had an ECG performed which demonstrated sinus rhythm with a first-degree AV block with left axis deviation and low voltage QRS in the limb leads and poor R-wave progression. A chest x-ray was performed. It suggested possible increased pulmonary vascularity. He was treated with IV diuretic therapy. She was subsequently transferred to the PCU. [] Past Medical History Allergies/Adverse Reactions: Allergies amoxicillin trihydrate [From Augmentin] Allergy (Verified 09/17/17 09:25) Rash potassium clavulanate [From Augmentin] Allergy (Verified 09/17/17 09:25) Rash Sulfa (Sulfonamide Antibiotics) Allergy (Verified 09/17/17 09:25) Hives vancomycin Allergy (Verified 09/17/17 09:25) Other ROSLYN SYNDROME Home Medications: Ambulatory Orders Medication Instructions Recorded Aspirin [Aspirin, Baby] 81 mg PO DAILY@0800 03/04/14 Insulin Glargine,Hum.rec.anlog 42 unit SQ BREAKFAST 12/17/16 [Lantus] Levothyroxine [Synthroid] 75 mcg PO 0600 12/17/16 Polyethylene Glycol 3350 [Miralax] 17 gm PO DAILY 12/18/16 Acetaminophen [Tylenol] 1,000 mg PO Q8H PRN PRN tab 02/01/17 amiodarone 200 mg tablet 200 mg PO DAILY #30 tab 03/31/17 Furosemide 40 mg PO BID 06/20/17 Insulin Aspart [Novolog Flexpen] 5 units SC BREAKFAST 06/20/17 Spironolactone [Aldactone] 25 mg PO DAILY 06/20/17 carvedilol 6.25 mg tablet 6.25 mg PO BID 06/21/17 Docusate Sodium [Colace] 100 mg PO DAILY 07/22/17 warfarin 2 mg tablet 2 mg PO SUTUWETHFRSA 08/07/17 atorvastatin 40 mg tablet 40 mg PO QHS #90 tab 09/11/17 Insulin Aspart [Novolog Flexpen] 8 unit SQ BID 09/17/17 Metolazone [Zaroxolyn] 2.5 mg PO MOWEFR 09/17/17 Warfarin [Coumadin (PBKC)] 4 mg PO MO 09/17/17 Past Medical History (Chronic Problems): Chronic Problems (Last Updated 06/21/17 @ 08:34 by Stefany Carrion) Atrial fibrillation (Chronic) Chronic renal insufficiency (Chronic) CAD (coronary artery disease) (Chronic) ICD (implantable cardioverter-defibrillator) in place (Chronic) Aortic stenosis (Chronic) s/p TAVR Cardiomyopathy in disease classified elsewhere (Chronic) Paroxysmal atrial tachycardia (Chronic) Ventricular flutter (Chronic) Rheumatic tricuspid insufficiency (Chronic) 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) use of anticoagulants (Chronic) ICD (implantable cardioverter-defibrillator) in place (Chronic) Ventricular tachycardia (paroxysmal) (Chronic) S/P AICD Anemia of chronic disease (Chronic) Cardiomyopathy, noncoronary (Chronic) HTN (hypertension) (Chronic) S/p TAVR (transcatheter aortic valve replacement), bioprosthetic (Chronic) 26 mm Bond Sapein Bioprosthetic Aortic Valve HLD (hyperlipidemia) (Chronic) Biatrial enlargement (Chronic) Severe Mitral valve stenosis and regurgitation (Chronic) Mild to moderate mitral valve stenosis with moderate mitral valve insufficiency Chronic atrial fibrillation (Chronic) Surgical History: appendectomy, tonsillectomy, - - S/P TAVR; S/P ICD Psychiatric History: No pertinent psych hx MERCHANDISING DIRECTOR History: No pertinent MERCHANDISING DIRECTOR history - *Family History Maternal Family History: Family History (Last Updated 06/21/17 @ 08:36 by Stefany Carrion) Father CVA (cerebral vascular accident) Valvular heart disease Presence of permanent cardiac pacemaker Mother CVA (cerebral vascular accident) Other Family history of CVA History Items: - - heart disease, stroke Paternal Family History: Family History (Last Updated 06/21/17 @ 08:36 by Stefany Carrion) Father CVA (cerebral vascular accident) Valvular heart disease Presence of permanent cardiac pacemaker Mother CVA (cerebral vascular accident) Other Family history of CVA History Items: - - father with kidney disease, heart disease and stroke Lives: Alone Smoking Status: Never smoker Alcohol: None Drugs: None Review of Systems - Review of Systems General: Denies: Fever, Night Sweats, Fatigue Cardiovascular: Reports: Chest Discomfort, Chest Discomfort at Rest, Shortness of Breath, Shortness of Breath at Rest, Orthopnea, Peripheral Edema. Denies: PND, Palpitations, Lightheadedness, Dizziness, Near Syncope, Syncope Respiratory: Reports: Shortness of Breath. Denies: Cough, Sputum Production, Hemoptysis Gastrointestinal: Denies: Hematemesis, Hematochezia, Melena Genitourinary: Denies: Dysuria, Hematuria Skin: Denies: Rash Subjectve: This is a 67-year-old white female who appears to be resting reasonably comfortably at the moment in no acute distress. Objective: Vital Signs Temp Pulse Resp BP Pulse Ox 99.8 F H 65 16 114/53 L 97 09/17/17 16:15 09/17/17 16:15 09/17/17 16:15 09/17/17 16:15 09/17/17 16:15 Oxygen Flow Rate (L/min) 2 Oxygen Delivery Method Nasal Cannula Weight: 208 lb 8.917 oz Body Mass Index (BMI) 33.6 General: Awake, Alert, Oriented x 3, Cooperative, No Acute Distress, Obese HEENT: Atraumatic, Normocephalic, PERRL, EOMI, Sclera Non Icteric Oral: Moist Mucosa Neck: Supple, Good ROM, No JVD Lungs: Rales - Deandre Bases Cardiovascular: Regular Rhythm, Normal S1, Normal S2 Murmur Murmur: Grade 2/6, Harsh, Mid Systolic, LLSB, LVOT, Sternal Notch Vascular: No Carotid Bruits Abdomen: Bowel Sounds Present, Soft, Non Tender Extremities: Moderate RLE Edema, Moderate LLE Edema Rhythm: Sinus rhythm EKG: As noted above ECHO: As noted above: Please see official report Cardiac Cath: 03/04/2014: [facility]: Left main normal; LAD with diffuse mild luminal irregularities; LCx with OM 2 with 30-40% stenosis; RCA being a small nondominant vessel with minimal luminal irregularities CT Surgery: 09/10/2013: Trans-cutaneous aortic valve replacement: 26 mm Bond Stephanie prosthetic aortic valve Holter monitor: 06/27/2013: [facility]: Sinus rhythm with PACs and PVCs ICD: Recordant Scientific: E[employer]: Model number: [id number]: Serial number: [id number]: Date implanted: 08/14/2014: Dual-chamber ICD CXR: As noted above: Please see official report Assessment/Plan 1. Acute on chronic systolic CHF The patient presents with signs and symptoms compatible with acute on chronic systolic CHF. This is a recurrent event for her despite her attempting to monitor her diet and take her medications appropriately. At the present time she will continue medical therapy. This will include IV diuresis. Her other medications can be adjusted as needed. 2. Paroxysmal atrial fibrillation Her rate and rhythm will be followed. She will continue medical management with rate control therapy, antiarrhythmic therapy, and anticoagulant therapy as deemed appropriate. 3. Paroxysmal ventricular tachycardia The patient does have an underlying ICD in place. It has been functioning appropriately. She will continue medical management with her beta-kodi, antiarrhythmic therapy as deemed appropriate, and her ICD in place. 4. TAVR The patient's bioprosthetic heart valve was recently evaluated. It was functioning appropriately. She recently had her [facility] follow-up visit. There were no additional recommendations made for further evaluation or care of the aortic valve other than continued medical management and [place] [employer] antibiotic prophylaxis. 5. Mitral valve disorder with mitral valve stenosis/insufficiency This was reassessed per the patient at the [facility] Main campus. She states she was not a candidate for any further intervention/surgery. She will need to continue medical management as best as possible to compensate for this as this may be contributing to her recurrent acute on chronic systolic CHF mediated events. 6. Non-CAD related cardiomyopathy The patient has a history of a non-CAD related cardiomyopathy with diminished LV systolic function. She will continue medical management with adjustment as needed based on her recurrent acute on chronic systolic CHF event. 7. CAD The patient does have a history of underlying CAD. Her previous findings are as noted above. She needs to continue risk factor modification medical therapy. She will be monitored for any obvious concerns of the development/ progression of CAD leading to an acute coronary syndrome, etc. She then can be reassessed as needed. 8. ICD The patient does have an ICD in place. It has been evaluated in the past. It has been functioning appropriately. 9. Hyperlipidemia The patient will continue medical management. 10. Hypertension The patient will continue antihypertensive therapy with adjustment as needed. 11. Diabetes mellitus The patient will continue under the care of internal medicine. 12. Chronic renal insufficiency Patient will continue to have her renal function followed as her medications are adjusted and her clinical course progresses. Comment: The above was discussed with the patient and the [facility] emergency department staff. This note was generated with ThermalTherapeuticSystemsation software. It may contain incorrect words, spelling, and punctuation that were not noted in checking the note before signing.
[2017-09-17 17:46] LABS: Prothrombin Time (Protime)PT. 38.1 SECONDS (11.7-14.9)
[2017-09-17 17:50] LABS: Magnesium 2.2 mg/dL (1.6-2.6); Thyroid Stim Hormone (TSH) 1.04 uIU/mL (0.358-3.74)
[2017-09-17 17:52] LABS: International Normalized Ratio 3.8
[2017-09-17] MEDS: Nystatin Powder 15gm Bottle 1 APPLIC TOPICAL ×2 (18:03→22:20)
[2017-09-17] MEDS: 0.9% NaCl Peripheral Flush Adult/Peds IV (18:04)
[2017-09-17] MEDS: Atorvastatin Calcium 40 MG Tablet PO (22:13)
[2017-09-17] MEDS: Carvedilol 6.25 MG Tablet PO (22:13)
[2017-09-18] VITALS (12 sets, daily range): BP systolic 104–127; BP diastolic 46–59; PULSE 60–62; RESP 16–18; TEMP 36.6–37.1; O2SAT 97–99
[2017-09-18 00:35] LABS: Bedside Glucose 136 mg/dL (70-110)
[2017-09-18] MEDS: Furosemide 40 MG/4 ML Vial IV ×3 (06:07→19:44)
[2017-09-18] MEDS: Nystatin Powder 15gm Bottle 1 APPLIC TOPICAL ×3 (06:07→19:45)
[2017-09-18] MEDS: Levothyroxine 75 MCG Tablet PO (06:07)
[2017-09-18 06:50] LABS: Bedside Glucose 112 mg/dL (70-110)
[2017-09-18 07:16] LABS: Hematocrit 32.4 % (37-47); Hemoglobin 10.3 g/dl (12.0-15.0); Mean Corp Hgb Conc 31.8 g/gl (32-36); Mean Corpuscular Hgb 29.5 pg (27.0-32.0); Mean Corpuscular Volume 92.8 fL (81-99); Mean Platelet Vol. 10.7 fl (6.2-12.0); Platelet Count 142 K/mm3 (150-450); RBC Distribution Width CV 14.7 % (11.6-14.6); RBC Distribution Width SD 49.2 fl (35.1-43.9); Red Blood Count 3.49 M/mm3 (4.2-5.4); White Blood Count 4.9 K/mm3 (4.4-11.0)
[2017-09-18 07:17] LABS: Scan Indicated on CBC? Y/N NO
[2017-09-18 07:29] LABS: Prothrombin Time (Protime)PT. 39.4 SECONDS (11.7-14.9)
[2017-09-18 08:18] LABS: Anion Gap 9 (5-15); BUN 76 mg/dL (7-18); BUN/Creat Ratio 44.2 RATIO (10-20); Calcium,Total 8.4 mg/dL (8.5-10.1); Chloride 98 mmol/L (98-107); Cholesterol 85 mg/dL (200); Creatinine, Serum 1.72 mg/dL (0.55-1.02); EST Glomerular Filtration Rate 31 mL/min (>60); Est Glom Filt Rate - Afr Amer 38 mL/min (>60); Glucose 110 mg/dL (74-106); High Density Lipoprotein 37 mg/dL; Potassium 3.4 mmol/L (3.5-5.1); Sodium Level 140 mmol/L (136-145); Triglycerides 75 mg/dL; Very Low Density Lipoprotein 15 mg/dL (5-40)
[2017-09-18] MEDS: Aspirin 81 MG TAB.CHEW PO (09:45)
[2017-09-18] MEDS: Docusate Sodium 100 MG Capsule PO (09:46)
[2017-09-18] MEDS: Carvedilol 6.25 MG Tablet PO ×2 (09:46→19:44)
[2017-09-18] MEDS: Spironolactone 25 MG Tablet PO (09:46)
[2017-09-18] MEDS: Amiodarone 200 MG Tablet PO (09:46)
[2017-09-18] MEDS: Polyethylene Glycol 3350 17 GM PACKET PO (09:47)
[2017-09-18] MEDS: Metolazone 2.5 MG Tablet PO (09:47)
--- NOTE | 2017-09-18 09:51 | PN_ITS ---
Patient Problems: Active and Suspected Problems (Last Updated 09/18/17 @ 09:17 by Haley Mark MD) CHF exacerbation (Acute) Subjective: Chief complaint: Follow-up after admission for acute on chronic systolic CHF and chest pain. Patient seen and examined. No acute events overnight. She mentioned that her breathing is a little bit better. She has no more chest pain or tightness. Her vital signs are stable, maintaining pulse ox at 98% on 2 L which is her baseline at home. - Physical Exam General: Alert, Oriented x3, Cooperative, - - Minimal shortness of breath. HEENT: Atraumatic, PERRLA, EOMI Oral: Moist Mucosa, No Gingival or Mucosal Lesions/ Ulcerations Neck: Supple, No JVD, Negative Carotid Bruits, Trachea Midline, Thyroid Normal Size and Texture Lungs: No wheeze, Diminished, Rales, Rhonchi, - - Decreased breath sounds bilateral, more at the bases with bilateral basal crackles more on the right base. Cardiovascular: Regular rate, Regular Rhythm, Normal S1, Normal S2, PMI Normal Abdomen: Bowel Sounds Present, Soft, Non Tender, Non-Distended, No Hepato- splenomegaly, Obese Extremities: No clubbing, No cyanosis, Edema Skin: No rashes, No breakdown Lymphatic: No Cervical, Supraclavicular, or Inguinal Adenopathy Neurological: Cranial nerves II-XII grossly intact, Neuro grossly intact Psych/Mental Status: Normal Affect, Appropriate, Alert and oriented to time, place, person, mood and affect Vital Signs Temp Pulse Resp BP Pulse Ox 98.7 F 60 16 127/59 H 97 09/18/17 04:44 09/18/17 07:29 09/18/17 04:44 09/18/17 04:44 09/18/17 08:00 Oxygen Flow Rate (L/min) 2 Oxygen Delivery Method Nasal Cannula Weight: 205 lb 7.533 oz Body Mass Index (BMI) 33.6 Intake and Output for Last 24 Hours 09/16/17 09/17/17 09/18/17 23:59 23:59 23:59 Intake Total 335 / 335 Output Total 700 / 700 700 / 700 Balance -365 / -365 -700 / -700 Laboratory Tests Past 24 Hrs 09/17/17 09/17/17 09/17/17 16:47 16:47 19:50 WBC RBC Hgb Hct MCV MCH MCHC RDW RDW Differential Plt Count MPV PT 38.1 H INR 3.8 H* Sodium Potassium Chloride Carbon Dioxide Anion Gap BUN Creatinine Estim Creat Clear Calc Est GFR (MDRD) Af Amer Est GFR (MDRD) Non-Af BUN/Creatinine Ratio Glucose Calcium Magnesium 2.2 Troponin I < 0.015 < 0.015 Triglycerides Cholesterol LDL Cholesterol VLDL Cholesterol HDL Cholesterol TSH 1.04 09/17/17 09/18/17 09/18/17 23:00 06:52 06:52 WBC 4.9 RBC 3.49 L Hgb 10.3 L Hct 32.4 L MCV 92.8 MCH 29.5 MCHC 31.8 L RDW 14.7 H RDW Differential 49.2 H Plt Count 142 L MPV 10.7 PT INR Sodium 140 Potassium 3.4 L Chloride 98 Carbon Dioxide 33.0 H Anion Gap 9 BUN 76 H Creatinine 1.72 H Estim Creat Clear Calc 28.90 Est GFR (MDRD) Af Amer 38 L Est GFR (MDRD) Non-Af 31 L BUN/Creatinine Ratio 44.2 H Glucose 110 H Calcium 8.4 L Magnesium Troponin I < 0.015 Triglycerides 75 Cholesterol 85 LDL Cholesterol 33 VLDL Cholesterol 15 HDL Cholesterol 37 L TSH 09/18/17 06:52 WBC RBC Hgb Hct MCV MCH MCHC RDW RDW Differential Plt Count MPV PT 39.4 H INR 4.0 H* Sodium Potassium Chloride Carbon Dioxide Anion Gap BUN Creatinine Estim Creat Clear Calc Est GFR (MDRD) Af Amer Est GFR (MDRD) Non-Af BUN/Creatinine Ratio Glucose Calcium Magnesium Troponin I Triglycerides Cholesterol LDL Cholesterol VLDL Cholesterol HDL Cholesterol TSH POC Glucose 09/18/17 09/17/17 09/17/17 06:41 22:11 16:47 POC Glucose 112 H 136 H 287 H Medical Necessity - Tobacco Use Smoking Status: Never smoker Assessment/Plan Active and Suspected Problems (Last Updated 09/18/17 @ 09:17 by Haley Mark MD) CHF exacerbation (Acute) This is a 67 years old female patient presented to the emergency room because of chest pain and worsening shortness of breath, found to have acute on chronic systolic CHF. #1 acute on chronic systolic CHF: She is on IV Lasix, Zaroxolyn, Aldactone continued on Coreg. She had 2D echocardiogram on June, that showed ejection fraction of 47%. Chest x-ray reviewed. Troponin are negative ?3. Symptoms are slightly improving, remains on 2 L of oxygen which is her baseline at home. Cardiology consulted. Plan to continue same treatment. #2 chest pain/tightness: Without acute ischemic changes on EKG, troponins negative ?3. Today, she has no more chest pain or tightness. Cardiology on the case. #3 CAD: Plan as above, continue aspirin, statins, beta blockers. #4 paroxysmal A. fib: At this time, she is sinus rhythm, rate is controlled. Continue Coreg for rate control as well as amiodarone. INR is 4 today, plan to hold Coumadin tonight, repeat INR tomorrow morning. #5 type 2 diabetes mellitus: ADA diet, Accu-Cheks, continue Levemir insulin as well as insulin sliding scale and pre-meal NovoLog. #6 hypertension: Blood pressure stable, continue Coreg and IV hydralazine as needed. #7 stage III chronic kidney disease: Baseline creatinine has been around 1.4-2 mg/dL. Today's creatinine is 1.72, stable at baseline. #8 valvular heart disease: Status post bioprosthetic aortic valve replacement: Stable, no acute issues. Echocardiogram from June, reviewed. #9 nonischemic cardiomyopathy: Status post ICD. Plan as above. #10 hyperlipidemia: Continue statins. #11 hypothyroidism: Continue levothyroxine. #12 DVT prophylaxis: INR is 4. This note was generated with [employer]Rank dictation software. It may contain incorrect words, spelling, and punctuation that were not noted in checking the note before signing. Code Visit Inpatient E&M: [id number] Subs Hosp L2
[2017-09-18 09:56] LABS: Bedside Glucose 146 mg/dL (70-110)
[2017-09-18 11:36] LABS: Bedside Glucose 235 mg/dL (70-110)
[2017-09-18] MEDS: 0.9% NaCl Peripheral Flush Adult/Peds IV ×3 (13:44→19:44)
--- NOTE | 2017-09-18 15:31 | PN.CARD_ITS ---
Subjectve: The patient believes her breathing is somewhat better today. She still has lower extremity edema. Objective: Vital Signs Temp Pulse Resp BP Pulse Ox 98.1 F 60 18 108/47 L 97 09/18/17 14:43 09/18/17 14:43 09/18/17 14:43 09/18/17 14:43 09/18/17 14:43 Oxygen Flow Rate (L/min) 2 Oxygen Delivery Method Room Air Weight: 205 lb 7.533 oz Body Mass Index (BMI) 33.6 Intake and Output for Last 24 Hours 09/16/17 09/17/17 09/18/17 23:59 23:59 23:59 Intake Total 335 / 335 610 / 610 Output Total 700 / 700 1350 / 1350 Balance -365 / -365 -740 / -740 General: Awake, Alert, Oriented x 3, Cooperative, No Acute Distress, Obese Lungs: Diminished Deandre Bases - Clearer compared to previous evaluation Cardiovascular: Regular Rhythm, Normal S1, Normal S2 Murmur Murmur: Grade 2/6, Harsh, Mid Systolic, LLSB, LVOT, Sternal Notch Abdomen: Bowel Sounds Present, Soft, Non Tender Extremities: Mild RLE Edema, Mild LLE Edema 09/17/17 16:47: PT 38.1 H, INR 3.8 H* 09/17/17 16:47: Magnesium 2.2, Troponin I < 0.015 09/17/17 19:50: Troponin I < 0.015 09/17/17 23:00: Troponin I < 0.015 09/18/17 06:52: Sodium 140, Potassium 3.4 L, Chloride 98, Carbon Dioxide 33.0 H , Anion Gap 9, BUN 76 H, Creatinine 1.72 H, Est GFR (MDRD) Af Amer 38 L, Est GFR (MDRD) Non-Af 31 L, BUN/Creatinine Ratio 44.2 H, Glucose 110 H, Calcium 8.4 L, Triglycerides 75, Cholesterol 85, LDL Cholesterol 33, VLDL Cholesterol 15, HDL Cholesterol 37 L 09/18/17 06:52: WBC 4.9, RBC 3.49 L, Hgb 10.3 L, Hct 32.4 L, MCV 92.8, MCH 29.5 , MCHC 31.8 L, RDW 14.7 H, RDW Differential 49.2 H, Plt Count 142 L, MPV 10.7 09/18/17 06:52: PT 39.4 H, INR 4.0 H* Rhythm: Sinus rhythm Medical Necessity - Tobacco Use Smoking Status: Never smoker Assessment/Plan 1. Acute on chronic systolic CHF The patient presents with signs and symptoms compatible with acute on chronic systolic CHF. This is a recurrent event for her despite her attempting to monitor her diet and take her medications appropriately. At the present time she will continue medical therapy. This will include IV diuresis. Hopefully she will continue to diuresis, improve her pulmonary status, improve her lower extremity edema, and be able to be transitioned back to her oral diuretic therapy at an adjusted dose. 2. Paroxysmal atrial fibrillation Her rate and rhythm will be followed. She will continue medical management with rate control therapy, antiarrhythmic therapy, and anticoagulant therapy as deemed appropriate. 3. Paroxysmal ventricular tachycardia The patient does have an underlying ICD in place. It has been functioning appropriately. She will continue medical management with her beta-kodi, antiarrhythmic therapy as deemed appropriate, and her ICD in place. 4. TAVR The patient's bioprosthetic heart valve was recently evaluated. It was functioning appropriately. She recently had her [facility] follow-up visit. There were no additional recommendations made for further evaluation or care of the aortic valve other than continued medical management and [place] [employer] antibiotic prophylaxis. 5. Mitral valve disorder with mitral valve stenosis/insufficiency This was reassessed per the patient at the [facility] Main campus. She states she was not a candidate for any further intervention/surgery. She will need to continue medical management as best as possible to compensate for this as this may be contributing to her recurrent acute on chronic systolic CHF mediated events. 6. Non-CAD related cardiomyopathy The patient has a history of a non-CAD related cardiomyopathy with diminished LV systolic function. She will continue medical management with adjustment as needed based on her recurrent acute on chronic systolic CHF event. 7. CAD The patient does have a history of underlying CAD. Her previous findings are as noted above. She needs to continue risk factor modification medical therapy. She will be monitored for any obvious concerns of the development/ progression of CAD leading to an acute coronary syndrome, etc. She then can be reassessed as needed. 8. ICD The patient does have an ICD in place. It has been evaluated in the past. It has been functioning appropriately. 9. Hyperlipidemia The patient will continue medical management. 10. Hypertension The patient will continue antihypertensive therapy with adjustment as needed. 11. Diabetes mellitus The patient will continue under the care of internal medicine. 12. Chronic renal insufficiency Her creatinine level is somewhat improved today. Comment: The above was discussed with the patient. This note was generated with [employer] dictation software. It may contain incorrect words, spelling, and punctuation that were not noted in checking the note before signing.
[2017-09-18 16:35] LABS: Bedside Glucose 250 mg/dL (70-110)
[2017-09-18] MEDS: Atorvastatin Calcium 40 MG Tablet PO (19:45)
[2017-09-18 22:46] LABS: Bedside Glucose 167 mg/dL (70-110)
[2017-09-19] VITALS (11 sets, daily range): BP systolic 105–118; BP diastolic 46–55; PULSE 60–70; RESP 14–19; TEMP 36.6–36.8; O2SAT 98–100
[2017-09-19] MEDS: 0.9% NaCl Peripheral Flush Adult/Peds IV ×3 (05:14→22:07)
[2017-09-19] MEDS: Nystatin Powder 15gm Bottle 1 APPLIC TOPICAL ×3 (05:14→22:05)
[2017-09-19] MEDS: Furosemide 40 MG/4 ML Vial IV ×3 (05:14→22:06)
[2017-09-19] MEDS: Levothyroxine 75 MCG Tablet PO (05:14)
[2017-09-19 06:56] LABS: Prothrombin Time (Protime)PT. 31.7 SECONDS (11.7-14.9)
[2017-09-19 07:06] LABS: Bedside Glucose 173 mg/dL (70-110)
[2017-09-19 07:16] LABS: Anion Gap 9 (5-15); BUN 75 mg/dL (7-18); BUN/Creat Ratio 38.9 RATIO (10-20); Calcium,Total 8.3 mg/dL (8.5-10.1); Chloride 97 mmol/L (98-107); Creatinine, Serum 1.93 mg/dL (0.55-1.02); EST Glomerular Filtration Rate 27 mL/min (>60); Est Glom Filt Rate - Afr Amer 33 mL/min (>60); Estimated Creatinine Clearance 25.75 ml/min; Glucose 161 mg/dL (74-106); Potassium 3.9 mmol/L (3.5-5.1); Sodium Level 139 mmol/L (136-145)
[2017-09-19] MEDS: Amiodarone 200 MG Tablet PO (08:07)
[2017-09-19] MEDS: Docusate Sodium 100 MG Capsule PO (08:07)
[2017-09-19] MEDS: Spironolactone 25 MG Tablet PO (08:07)
[2017-09-19] MEDS: Aspirin 81 MG TAB.CHEW PO (08:07)
[2017-09-19] MEDS: Polyethylene Glycol 3350 17 GM PACKET PO (08:08)
[2017-09-19] MEDS: Carvedilol 6.25 MG Tablet PO ×2 (08:08→22:05)
[2017-09-19 11:31] LABS: Bedside Glucose 192 mg/dL (70-110)
--- NOTE | 2017-09-19 11:36 | CASEMGMT ---
Face to Face with patient for initial transition planning/care coordination assessment. RN TANA introduced self and role at [facility], pt voices understanding and consents to assessment at this time. Pt is sitting up in chair in no distress at this time. Pt is A/O x4 at this time and answers all questions appropriately at this time. Care providers, pharmacy, and demographics verified. See attached link. Pt voices no further concerns/needs at this time. Advised pt to ask for CM if any further questions/concerns/needs arise, voices understanding. CM to follow for any further discharge planning/needs. PLAN: [place] [facility]
--- NOTE | 2017-09-19 15:34 | PN.CARD_ITS ---
Subjectve: The patient was up and ambulating in the hallway with physical therapy. She did not complain of any acute symptoms with respect to her respiratory status. She notes overall she has felt better since being in the hospital with her IV diuresis and increased fluid output. Objective: Vital Signs Temp Pulse Resp BP Pulse Ox 97.9 F 60 19 H 117/50 L 98 09/19/17 11:12 09/19/17 15:05 09/19/17 11:12 09/19/17 11:12 09/19/17 13:25 Oxygen Flow Rate (L/min) 2 Oxygen Delivery Method Nasal Cannula Weight: 205 lb 7.533 oz Body Mass Index (BMI) 33.6 Intake and Output for Last 24 Hours 09/17/17 09/18/17 09/19/17 23:59 23:59 23:59 Intake Total 335 / 335 610 / 610 1190 / 1190 Output Total 700 / 700 1350 / 1350 1850 / 1850 Balance -365 / -365 -740 / -740 -660 / -660 General: Awake, Alert, Oriented x 3, Cooperative, No Acute Distress Lungs: Diminished Deandre Bases Cardiovascular: Regular Rhythm, Normal S1, Normal S2 Murmur Murmur: Grade 2/6, Harsh, Mid Systolic, LLSB, LVOT, Sternal Notch Abdomen: Bowel Sounds Present, Soft, Non Tender Extremities: Moderate RLE Edema, Moderate LLE Edema 09/19/17 06:25: PT 31.7 H, INR 3.0 09/19/17 06:25: Sodium 139, Potassium 3.9, Chloride 97 L, Carbon Dioxide 33.0 H , Anion Gap 9, BUN 75 H, Creatinine 1.93 H, Est GFR (MDRD) Af Amer 33 L, Est GFR (MDRD) Non-Af 27 L, BUN/Creatinine Ratio 38.9 H, Glucose 161 H, Calcium 8.3 L Rhythm: Sinus rhythm; atrial paced rhythm Medical Necessity - Tobacco Use Smoking Status: Never smoker Assessment/Plan 1. Acute on chronic systolic CHF The patient presents with signs and symptoms compatible with acute on chronic systolic CHF. This is a recurrent event for her despite her attempting to monitor her diet and take her medications appropriately. This will include IV diuresis. She may also need increase in her oral diuretic therapy with respect to her furosemide and her metolazone. Hopefully she will continue to diuresis, improve her pulmonary status, improve her lower extremity edema, and be able to be transitioned back to her oral diuretic therapy at an adjusted dose. 2. Paroxysmal atrial fibrillation Her rate and rhythm will be followed. She will continue medical management with rate control therapy, antiarrhythmic therapy, and anticoagulant therapy as deemed appropriate. 3. Paroxysmal ventricular tachycardia The patient does have an underlying ICD in place. It has been functioning appropriately. She will continue medical management with her beta-kodi, antiarrhythmic therapy as deemed appropriate, and her ICD in place. 4. TAVR The patient's bioprosthetic heart valve was recently evaluated. It was functioning appropriately. She recently had her [facility] follow-up visit. There were no additional recommendations made for further evaluation or care of the aortic valve other than continued medical management and [employer] antibiotic prophylaxis. 5. Mitral valve disorder with mitral valve stenosis/insufficiency This was reassessed per the patient at the [facility] Main campus. She states she was not a candidate for any further intervention/surgery. She will need to continue medical management as best as possible to compensate for this as this may be contributing to her recurrent acute on chronic systolic CHF mediated events. 6. Non-CAD related cardiomyopathy The patient has a history of a non-CAD related cardiomyopathy with diminished LV systolic function. She will continue medical management with adjustment as needed based on her recurrent acute on chronic systolic CHF event. 7. CAD The patient does have a history of underlying CAD. Her previous findings are as noted above. She needs to continue risk factor modification medical therapy. She will be monitored for any obvious concerns of the development/ progression of CAD leading to an acute coronary syndrome, etc. She then can be reassessed as needed. 8. ICD The patient does have an ICD in place. It has been evaluated in the past. It has been functioning appropriately. 9. Hyperlipidemia The patient will continue medical management. 10. Hypertension The patient will continue antihypertensive therapy with adjustment as needed. 11. Diabetes mellitus The patient will continue under the care of internal medicine. 12. Chronic renal insufficiency Her creatinine levels are being followed. They have increased somewhat. Comment: The above was discussed with the patient. This note was generated with [employer] software. It may contain incorrect words, spelling, and punctuation that were not noted in checking the note before signing.
[2017-09-19 16:46] LABS: Bedside Glucose 167 mg/dL (70-110)
--- NOTE | 2017-09-19 17:00 | PCM.PN.HOSP ---
Patient Problems: Active and Suspected Problems (Last Updated 09/18/17 @ 09:17 by Haley Mark MD) CHF exacerbation (Acute) Subjective: CC: Shortness of breath. Objective: This is a 67-year-old female who presented with shortness of breath, she has acute exacerbation of systolic heart failure, she is on IV diuresis and she is improving. No acute events reported overnight. Vitals/I&O's: Vital Signs Temp Pulse Resp BP Pulse Ox 98.2 F 60 18 115/46 L 100 09/19/17 16:31 09/19/17 16:31 09/19/17 16:31 09/19/17 16:31 09/19/17 16:31 Oxygen Flow Rate (L/min) 2 Oxygen Delivery Method Nasal Cannula Weight: 93.2 kg Body Mass Index (BMI) 33.6 Intake and Output for Last 24 Hours 09/17/17 09/18/17 09/19/17 23:59 23:59 23:59 Intake Total 335 / 335 610 / 610 1190 / 1190 Output Total 700 / 700 1350 / 1350 1850 / 1850 Balance -365 / -365 -740 / -740 -660 / -660 General: Alert, Oriented x3 HEENT: Atraumatic Oral: Moist Mucosa Neck: Supple, No JVD, Negative Carotid Bruits Lungs: - - Basilar rales Cardiovascular: Regular rate, Normal S1, Normal S2 Abdomen: Bowel Sounds Present, Soft Extremities: Edema Musculoskeletal: No Tenderness to Palpation of Joints or Extremities Neurological: Cranial nerves II-XII grossly intact, Neuro grossly intact, Motor Exam 5/5 strength throughout Psych/Mental Status: Normal Affect Laboratory Results 09/18/17 22:34: POC Glucose 167 H 09/19/17 06:25: PT 31.7 H, INR 3.0 09/19/17 06:25: Sodium 139, Potassium 3.9, Chloride 97 L, Carbon Dioxide 33.0 H, Anion Gap 9, BUN 75 H, Creatinine 1.93 H, Estim Creat Clear Calc 25.75, Est GFR (MDRD) Af Amer 33 L, Est GFR (MDRD) Non-Af 27 L, BUN/Creatinine Ratio 38.9 H, Glucose 161 H, Calcium 8.3 L 09/19/17 06:56: POC Glucose 173 H 09/19/17 11:10: POC Glucose 192 H 09/19/17 16:37: POC Glucose 167 H Current Medications Acetaminophen (Tylenol) 650 mg PO Q6H PRN PRN PRN Reason: Mild Pain (scale 0-3)/T>100.7 Al Hydroxide/Mg Hydroxide (Mylanta Ii) 30 ml PO Q6H PRN PRN PRN Reason: Gastric burning Amiodarone HCl (Cordarone) 200 mg PO DAILY [facility] Last Admin: 09/19/17 08:07 Dose: 200 mg Aspirin (Aspirin, Baby) 81 mg PO DAILY@0800 [facility] Last Admin: 09/19/17 08:07 Dose: 81 mg Atorvastatin Calcium (Lipitor) 40 mg PO QHS [facility] Last Admin: 09/18/17 19:45 Dose: 40 mg Carvedilol (Coreg) 6.25 mg PO BID [facility] Last Admin: 09/19/17 08:08 Dose: 6.25 mg Docusate Sodium (Colace) 100 mg PO DAILY [facility] Last Admin: 09/19/17 08:07 Dose: 100 mg Furosemide (Lasix) 40 mg IV Q8 [facility] Last Admin: 09/19/17 14:09 Dose: 40 mg Hydralazine HCl (Apresoline Iv) 10 mg IV Q4H PRN PRN PRN Reason: SBP > 160 Insulin Aspart (Novolog Flexpen (Bkc)) 8 units SC BID@1200,1700 [facility] Last Admin: 09/19/17 12:15 Dose: 8 u Insulin Aspart (Novolog Flexpen (Bkc)) 5 units SC BREAKFAST [facility] Last Admin: 09/19/17 08:09 Dose: 5 u Insulin Aspart (Novolog Flexpen (Bkc)) 0 units SC ACHS [facility] PRN Reason: Protocol Last Admin: 09/19/17 12:15 Dose: 2 u Insulin Detemir (Levemir (Bkc)) 42 units SC BREAKFAST [facility] Last Admin: 09/19/17 08:10 Dose: 42 u Levothyroxine Sodium (Synthroid) 75 mcg PO 0600 [facility] Last Admin: 09/19/17 05:14 Dose: 75 mcg Magnesium Hydroxide (Milk Of Magnesia) 30 ml PO DAILY PRN PRN Reason: Constipation Metolazone (Zaroxolyn) 5 mg PO MOWEFR [facility] Morphine Sulfate () 2 - 4 mg IV Q3H PRN PRN PRN Reason: Severe Pain (pain scale 6-10) Morphine Sulfate () 1 - 2 mg IV Q4H PRN PRN PRN Reason: Moderate Pain (pain scale 4-5) Nystatin (Mycostatin Powder) 1 applic TOPICAL TID YONY PRN Reason: Protocol Last Admin: 09/19/17 14:10 Dose: 1 applicatio Ondansetron HCl (Zofran) 4 mg IV Q8H PRN PRN PRN Reason: NAUSEA Oxycodone HCl (Oxyir) 5 mg PO Q4H PRN PRN PRN Reason: Moderate Pain (pain scale 4-5) Polyethylene Glycol (Miralax) 17 gm PO DAILY [facility] Last Admin: 09/19/17 08:08 Dose: 17 gm Sodium Chloride () 5 - 30 ml IV UD PRN PRN Reason: SALINE FLUSH Last Admin: 09/19/17 14:10 Dose: 10 ml Spironolactone (Aldactone) 25 mg PO DAILY [facility] Last Admin: 09/19/17 08:07 Dose: 25 mg Medical Necessity - Tobacco Use Smoking Status: Never smoker Assessment/Plan Active and Suspected Problems (Last Updated 09/18/17 @ 09:17 by Haley Mark MD) CHF exacerbation (Acute) his is a 67 years old female patient presented to the emergency room because of chest pain and worsening shortness of breath, found to have acute on chronic systolic CHF. 1 acute on chronic systolic CHF; will continue on IV diuretics. 2 chest pain; allergy consulted. 3 CAD; continue on cardioprotective medications as ordered. 4. Paroxysmal A. fib; and is on Coreg and amiodarone, she takes Coumadin but placed on hold due to elevated INR. 5 type 2 diabetes mellitus; continue Levemir and RISS. 6 hypertension; continue on Coreg 7 stage III chronic kidney disease; continue to monitor renal parameters closely especially worse on Lasix.. 8 . Status post bioprosthetic aortic valve replacement, most recent echocardiogram showed normal valve function and anatomy. 9 Nonischemic cardiomyopathy: Status post ICD. 10.Hypothyroidism; patient is on Synthroid. 11. I discussed discharge planning with case management and social workers. Code Visit Inpatient E&M: 03688 Subs Hosp L2
--- NOTE | 2017-09-19 17:09 | PN_ITS ---
Patient Problems: Active and Suspected Problems (Last Updated 09/18/17 @ 09:17 by Haley Mark MD) CHF exacerbation (Acute) Subjective: CC: Shortness of breath. Objective: This is a 67-year-old female who presented with shortness of breath, she has acute exacerbation of systolic heart failure, she is on IV diuresis and she is improving. No acute events reported overnight. Vitals/I&O's: Vital Signs Temp Pulse Resp BP Pulse Ox 98.2 F 60 18 115/46 L 100 09/19/17 16:31 09/19/17 16:31 09/19/17 16:31 09/19/17 16:31 09/19/17 16:31 Oxygen Flow Rate (L/min) 2 Oxygen Delivery Method Nasal Cannula Weight: 93.2 kg Body Mass Index (BMI) 33.6 Intake and Output for Last 24 Hours 09/17/17 09/18/17 09/19/17 23:59 23:59 23:59 Intake Total 335 / 335 610 / 610 1190 / 1190 Output Total 700 / 700 1350 / 1350 1850 / 1850 Balance -365 / -365 -740 / -740 -660 / -660 General: Alert, Oriented x3 HEENT: Atraumatic Oral: Moist Mucosa Neck: Supple, No JVD, Negative Carotid Bruits Lungs: - - Basilar rales Cardiovascular: Regular rate, Normal S1, Normal S2 Abdomen: Bowel Sounds Present, Soft Extremities: Edema Musculoskeletal: No Tenderness to Palpation of Joints or Extremities Neurological: Cranial nerves II-XII grossly intact, Neuro grossly intact, Motor Exam 5/5 strength throughout Psych/Mental Status: Normal Affect Laboratory Results 09/18/17 22:34: POC Glucose 167 H 09/19/17 06:25: PT 31.7 H, INR 3.0 09/19/17 06:25: Sodium 139, Potassium 3.9, Chloride 97 L, Carbon Dioxide 33.0 H , Anion Gap 9, BUN 75 H, Creatinine 1.93 H, Estim Creat Clear Calc 25.75, Est GFR (MDRD) Af Amer 33 L, Est GFR (MDRD) Non-Af 27 L, BUN/Creatinine Ratio 38.9 H , Glucose 161 H, Calcium 8.3 L 09/19/17 06:56: POC Glucose 173 H 09/19/17 11:10: POC Glucose 192 H 09/19/17 16:37: POC Glucose 167 H Current Medications Acetaminophen (Tylenol) 650 mg PO Q6H PRN PRN PRN Reason: Mild Pain (scale 0-3)/T>100.7 Al Hydroxide/Mg Hydroxide (Mylanta Ii) 30 ml PO Q6H PRN PRN PRN Reason: Gastric burning Amiodarone HCl (Cordarone) 200 mg PO DAILY [facility] Last Admin: 09/19/17 08:07 Dose: 200 mg Aspirin (Aspirin, Baby) 81 mg PO DAILY@0800 [facility] Last Admin: 09/19/17 08:07 Dose: 81 mg Atorvastatin Calcium (Lipitor) 40 mg PO QHS [facility] Last Admin: 09/18/17 19:45 Dose: 40 mg Carvedilol (Coreg) 6.25 mg PO BID [facility] Last Admin: 09/19/17 08:08 Dose: 6.25 mg Docusate Sodium (Colace) 100 mg PO DAILY [facility] Last Admin: 09/19/17 08:07 Dose: 100 mg Furosemide (Lasix) 40 mg IV Q8 [facility] Last Admin: 09/19/17 14:09 Dose: 40 mg Hydralazine HCl (Apresoline Iv) 10 mg IV Q4H PRN PRN PRN Reason: SBP > 160 Insulin Aspart (Novolog Flexpen (Bkc)) 8 units SC BID@1200,1700 [facility] Last Admin: 09/19/17 12:15 Dose: 8 u Insulin Aspart (Novolog Flexpen (Bkc)) 5 units SC BREAKFAST [facility] Last Admin: 09/19/17 08:09 Dose: 5 u Insulin Aspart (Novolog Flexpen (Bkc)) 0 units SC ACHS [facility] PRN Reason: Protocol Last Admin: 09/19/17 12:15 Dose: 2 u Insulin Detemir (Levemir (Bkc)) 42 units SC BREAKFAST [facility] Last Admin: 09/19/17 08:10 Dose: 42 u Levothyroxine Sodium (Synthroid) 75 mcg PO 0600 [facility] Last Admin: 09/19/17 05:14 Dose: 75 mcg Magnesium Hydroxide (Milk Of Magnesia) 30 ml PO DAILY PRN PRN Reason: Constipation Metolazone (Zaroxolyn) 5 mg PO MOWEFR [facility] Morphine Sulfate () 2 - 4 mg IV Q3H PRN PRN PRN Reason: Severe Pain (pain scale 6-10) Morphine Sulfate () 1 - 2 mg IV Q4H PRN PRN PRN Reason: Moderate Pain (pain scale 4-5) Nystatin (Mycostatin Powder) 1 applic TOPICAL TID YONY PRN Reason: Protocol Last Admin: 09/19/17 14:10 Dose: 1 applicatio Ondansetron HCl (Zofran) 4 mg IV Q8H PRN PRN PRN Reason: NAUSEA Oxycodone HCl (Oxyir) 5 mg PO Q4H PRN PRN PRN Reason: Moderate Pain (pain scale 4-5) Polyethylene Glycol (Miralax) 17 gm PO DAILY [facility] Last Admin: 09/19/17 08:08 Dose: 17 gm Sodium Chloride () 5 - 30 ml IV UD PRN PRN Reason: SALINE FLUSH Last Admin: 09/19/17 14:10 Dose: 10 ml Spironolactone (Aldactone) 25 mg PO DAILY [facility] Last Admin: 09/19/17 08:07 Dose: 25 mg Medical Necessity - Tobacco Use Smoking Status: Never smoker Assessment/Plan Active and Suspected Problems (Last Updated 09/18/17 @ 09:17 by Haley Mark MD) CHF exacerbation (Acute) his is a 67 years old female patient presented to the emergency room because of chest pain and worsening shortness of breath, found to have acute on chronic systolic CHF. 1 acute on chronic systolic CHF; will continue on IV diuretics. 2 chest pain; allergy consulted. 3 CAD; continue on cardioprotective medications as ordered. 4. Paroxysmal A. fib; and is on Coreg and amiodarone, she takes Coumadin but placed on hold due to elevated INR. 5 type 2 diabetes mellitus; continue Levemir and RISS. 6 hypertension; continue on Coreg 7 stage III chronic kidney disease; continue to monitor renal parameters closely especially worse on Lasix.. 8 . Status post bioprosthetic aortic valve replacement, most recent echocardiogram showed normal valve function and anatomy. 9 Nonischemic cardiomyopathy: Status post ICD. 10.Hypothyroidism; patient is on Synthroid. 11. I discussed discharge planning with case management and social workers. Code Visit Inpatient E&M: 33166 Subs Hosp L2
[2017-09-19] MEDS: Atorvastatin Calcium 40 MG Tablet PO (22:05)
[2017-09-19 22:31] LABS: Bedside Glucose 85 mg/dL (70-110)
[2017-09-20] VITALS (10 sets, daily range): BP systolic 110–121; BP diastolic 50–58; PULSE 60–66; RESP 14–16; TEMP 36.4–36.6; O2SAT 97–100
[2017-09-20] MEDS: Levothyroxine 75 MCG Tablet PO (05:18)
[2017-09-20] MEDS: Nystatin Powder 15gm Bottle 1 APPLIC TOPICAL ×2 (05:18→13:56)
[2017-09-20] MEDS: Furosemide 40 MG/4 ML Vial IV ×2 (05:18→13:56)
[2017-09-20 07:00] LABS: Bedside Glucose 105 mg/dL (70-110)
[2017-09-20] MEDS: Carvedilol 6.25 MG Tablet PO (09:02)
[2017-09-20] MEDS: Amiodarone 200 MG Tablet PO (09:02)
[2017-09-20] MEDS: Docusate Sodium 100 MG Capsule PO (09:02)
[2017-09-20] MEDS: Spironolactone 25 MG Tablet PO (09:02)
[2017-09-20] MEDS: Aspirin 81 MG TAB.CHEW PO (09:02)
[2017-09-20] MEDS: Polyethylene Glycol 3350 17 GM PACKET PO (09:04)
[2017-09-20] MEDS: metOLazone 5 MG Tablet PO (09:06)
[2017-09-20 12:00] LABS: Bedside Glucose 238 mg/dL (70-110)
[2017-09-20 13:08] LABS: Anion Gap 8 (5-15); BUN 72 mg/dL (7-18); BUN/Creat Ratio 36.2 RATIO (10-20); Calcium,Total 8.5 mg/dL (8.5-10.1); Chloride 95 mmol/L (98-107); Creatinine, Serum 1.99 mg/dL (0.55-1.02); EST Glomerular Filtration Rate 26 mL/min (>60); Est Glom Filt Rate - Afr Amer 32 mL/min (>60); Estimated Creatinine Clearance 24.98 ml/min; Glucose 239 mg/dL (74-106); Potassium 4.2 mmol/L (3.5-5.1); Sodium Level 137 mmol/L (136-145)
[2017-09-20] MEDS: 0.9% NaCl Peripheral Flush Adult/Peds IV (13:56)
[2017-09-20 14:36] LABS: Prothrombin Time Fingerstick 22.8 SEC (11.9-14.4)
--- NOTE | 2017-09-20 16:03 | PCM.DC ---
- Discharge Diagnoses Current Active Problems: Current Active and Chronic Problems (Last Updated 09/18/17 @ 09:17 by Haley Mark MD) CHF exacerbation (Acute) Atrial fibrillation (Chronic) Chronic renal insufficiency (Chronic) CAD (coronary artery disease) (Chronic) Allergies/Adverse Reactions: Allergies amoxicillin trihydrate [From Augmentin] Allergy (Verified 09/17/17 09:25) Rash potassium clavulanate [From Augmentin] Allergy (Verified 09/17/17 09:25) Rash Sulfa (Sulfonamide Antibiotics) Allergy (Verified 09/17/17 09:25) Hives vancomycin Allergy (Verified 09/17/17 09:25) Other ROSLYN SYNDROME Medications to take at Discharge Aspirin [Aspirin, Baby] 81 mg PO DAILY@0800 03/04/14 Insulin Glargine,Hum.rec.anlog [Lantus] 42 unit SQ BREAKFAST 12/17/16 Levothyroxine [Synthroid] 75 mcg PO 0600 12/17/16 Polyethylene Glycol 3350 [Miralax] 17 gm PO DAILY 12/18/16 Acetaminophen [Tylenol] 1,000 mg PO Q8H PRN PRN tab 02/01/17 amiodarone 200 mg tablet 200 mg PO DAILY #30 tab 03/31/17 Furosemide 40 mg PO BID 06/20/17 Insulin Aspart [Novolog Flexpen] 5 units SC BREAKFAST 06/20/17 Spironolactone [Aldactone] 25 mg PO DAILY 06/20/17 carvedilol 6.25 mg tablet 6.25 mg PO BID 06/21/17 Docusate Sodium [Colace] 100 mg PO DAILY 07/22/17 warfarin 2 mg tablet 2 mg PO SUTUWETHFRSA 08/07/17 atorvastatin 40 mg tablet 40 mg PO QHS #90 tab 09/11/17 Insulin Aspart [Novolog Flexpen] 8 unit SQ BID 09/17/17 Warfarin [Coumadin] 4 mg PO MO 09/17/17 Metolazone [Zaroxolyn] 5 mg PO MOWEFR #12 tab 09/20/17 Warfarin [Coumadin] 2 mg PO DAILY@1700 tablet 09/20/17 The following prescriptions were given: Metolazone [Zaroxolyn] 5 mg PO MOWEFR #12 tab Primary Care Physician: Fiona Cardenas MD [Primary Care Provider] - In 1 Week Proposed Discharge Date: 09/20/17
--- NOTE | 2017-09-20 16:05 | DS.PCM_ITS ---
Discharge Date and Diagnosis - Problem List Patient Problems: Active and Suspected Problems (Last Updated 09/18/17 @ 09:17 by Haley Mark MD) CHF exacerbation (Acute) Date of Admission: 09/17/17 Date of Discharge: 09/20/17 - Primary Discharge Diagnosis Active and Suspected Problems (Last Updated 09/18/17 @ 09:17 by Haley Mark MD) CHF exacerbation (Acute) - Secondary Discharge Diagnosis Chronic Problems (Last Updated 09/18/17 @ 09:17 by Haley Mark MD) Atrial fibrillation (Chronic) Chronic renal insufficiency (Chronic) CAD (coronary artery disease) (Chronic) ICD (implantable cardioverter-defibrillator) in place (Chronic) Aortic stenosis (Chronic) s/p TAVR Paroxysmal atrial tachycardia (Chronic) Rheumatic tricuspid insufficiency (Chronic) ICD (implantable cardioverter-defibrillator) in place (Chronic) Ventricular tachycardia (paroxysmal) (Chronic) S/P AICD Anemia of chronic disease (Chronic) Cardiomyopathy, noncoronary (Chronic) HTN (hypertension) (Chronic) S/p TAVR (transcatheter aortic valve replacement), bioprosthetic (Chronic) 26 mm Bond S[place]in Bioprosthetic Aortic Valve HLD (hyperlipidemia) (Chronic) Mitral valve stenosis and regurgitation (Chronic) Mild to moderate mitral valve stenosis with moderate mitral valve insufficiency Chronic atrial fibrillation (Chronic) Hospital Course and Treatment Operations: None Summary of Care Provided: This is a 67 years old female patient who presented to the emergency room because of chest pain and worsening shortness of breath, found to have acute on chronic systolic CHF. He was placed on IV Lasix and she had good diuresis she is now clinically compensated. She was also seen by marketing summer intern who recommended an increase in her metolazone dose. Did well and was discharged home in a stable condition. 1 acute on chronic systolic CHF; continue on metolazone 5 mg Monday and Monday, Lasix 40 mg twice daily as well as Aldactone 25 mg daily 2 chest pain; etiology consulted no ischemic workup recommended at this time. 3 CAD; we will continue on cardioprotective medications as ordered. 4. Paroxysmal A. fib; and is on Coreg and amiodarone, she takes Coumadin , this was held during this hospital due to supratherapeutic INR but has now normalized her Coumadin restarted. 5 type 2 diabetes mellitus; continue Levemir 6 hypertension; this is controlled. 7 stage III chronic kidney disease; patient is to obtain renal parameters early next week. 8 . Status post bioprosthetic aortic valve replacement, most recent echocardiogram showed normal valve function and anatomy. 9 Nonischemic cardiomyopathy: Status post ICD. 10.Hypothyroidism; patient is on Synthroid. Physical exam at the time of discharge; 113/50, 66, 97.9, 16 He was alert and oriented to time place and person. He did not appear to be any form of distress. S1 and S2 heard no murmur or gallop Lung exam was clear to auscultation with no adventitious sounds. Abdomen was soft nontender with normal bowel sounds. extremity exam did not reveal any edema, palpable pulses bilaterally. Neurologic exam was grossly intact. Discharge Diet: No Restrictions Home Medications: Medications to take at Discharge Aspirin [Aspirin, Baby] 81 mg PO DAILY@0800 03/04/14 Insulin Glargine,Hum.rec.anlog [Lantus] 42 unit SQ BREAKFAST 12/17/16 Levothyroxine [Synthroid] 75 mcg PO 0600 12/17/16 Polyethylene Glycol 3350 [Miralax] 17 gm PO DAILY 12/18/16 Acetaminophen [Tylenol] 1,000 mg PO Q8H PRN PRN tab 02/01/17 amiodarone 200 mg tablet 200 mg PO DAILY #30 tab 03/31/17 Furosemide 40 mg PO BID 06/20/17 Insulin Aspart [Novolog Flexpen] 5 units SC BREAKFAST 06/20/17 Spironolactone [Aldactone] 25 mg PO DAILY 06/20/17 carvedilol 6.25 mg tablet 6.25 mg PO BID 06/21/17 Docusate Sodium [Colace] 100 mg PO DAILY 07/22/17 warfarin 2 mg tablet 2 mg PO SUTUWETHFRSA 08/07/17 atorvastatin 40 mg tablet 40 mg PO QHS #90 tab 09/11/17 Insulin Aspart [Novolog Flexpen] 8 unit SQ BID 09/17/17 Warfarin [Coumadin] 4 mg PO MO 09/17/17 Metolazone [Zaroxolyn] 5 mg PO MOWEFR #12 tab 09/20/17 Warfarin [Coumadin] 2 mg PO DAILY@1700 tablet 09/20/17 Following Prescrptions Were Given to Patient: Metolazone [Zaroxolyn] 5 mg PO MOWEFR #12 tab Primary Care Physician: Fiona Cardenas MD [Primary Care Provider] - In 1 Week Medical Necessity - Tobacco Use Smoking Status: Never smoker Meaningful Use Info Meaningful Use Diagnoses (Choose all that apply): None applicable Code Visit Inpatient E&M: 53225 Disch Hosp
--- NOTE | 2017-09-20 18:23 | PCM.PN.CARD ---
Subjectve: The patient appeared to be improved today. She looked better and stated she felt better with respect to her breathing and her lower extremities. Objective: Vital Signs Temp Pulse Resp BP Pulse Ox 97.9 F 66 16 113/50 L 99 09/20/17 15:00 09/20/17 15:05 09/20/17 15:00 09/20/17 15:00 09/20/17 15:00 Oxygen Flow Rate (L/min) 2 Oxygen Delivery Method Nasal Cannula Weight: 203 lb 9.6 oz Body Mass Index (BMI) 33.6 Intake and Output for Last 24 Hours 09/18/17 09/19/17 09/20/17 23:59 23:59 23:59 Intake Total 610 / 610 1590 / 1590 420 / 420 Output Total 1350 / 1350 2700 / 2700 1550 / 1550 Balance -740 / -740 -1110 / -1110 -1130 / -1130 General: Awake, Alert, Oriented x 3, Cooperative, No Acute Distress Neck: No JVD Lungs: Clear to auscultation Cardiovascular: Regular Rhythm, Normal S1, Normal S2 Abdomen: Bowel Sounds Present, Soft, Non Tender Extremities: - - Bilateral lower extremities: In Marcus type wraps. 09/20/17 12:35: Sodium 137, Potassium 4.2, Chloride 95 L, Carbon Dioxide 34.0 H, Anion Gap 8, BUN 72 H, Creatinine 1.99 H, Est GFR (MDRD) Af Amer 32 L, Est GFR (MDRD) Non-Af 26 L, BUN/Creatinine Ratio 36.2 H, Glucose 239 H, Calcium 8.5 09/20/17 14:25: INR 2.00 Medical Necessity - Tobacco Use Smoking Status: Never smoker Assessment/Plan 1. Acute on chronic systolic CHF The patient presents with signs and symptoms compatible with acute on chronic systolic CHF. This is a recurrent event for her despite her attempting to monitor her diet and take her medications appropriately. She has improved with diuresis. Her oral diuretic therapies will be adjusted to include metolazone at 5 mg on Monday, Monday, and Monday with follow-up BMP. 2. Paroxysmal atrial fibrillation Her rate and rhythm will be followed. She will continue medical management with rate control therapy, antiarrhythmic therapy, and anticoagulant therapy as deemed appropriate. 3. Paroxysmal ventricular tachycardia The patient does have an underlying ICD in place. It has been functioning appropriately. She will continue medical management with her beta-kodi, antiarrhythmic therapy as deemed appropriate, and her ICD in place. 4. TAVR The patient's bioprosthetic heart valve was recently evaluated. It was functioning appropriately. She recently had her [facility] follow-up visit. There were no additional recommendations made for further evaluation or care of the aortic valve other than continued medical management and [employer] antibiotic prophylaxis. 5. Mitral valve disorder with mitral valve stenosis/insufficiency This was reassessed per the patient at the [facility] Main campus. She states she was not a candidate for any further intervention/surgery. She will need to continue medical management as best as possible to compensate for this as this may be contributing to her recurrent acute on chronic systolic CHF mediated events. 6. Non-CAD related cardiomyopathy The patient has a history of a non-CAD related cardiomyopathy with diminished LV systolic function. She will continue medical management with adjustment as needed based on her recurrent acute on chronic systolic CHF event. 7. CAD The patient does have a history of underlying CAD. Her previous findings are as noted above. She needs to continue risk factor modification medical therapy. She will be monitored for any obvious concerns of the development/progression of CAD leading to an acute coronary syndrome, etc. She then can be reassessed as needed. 8. ICD The patient does have an ICD in place. It has been evaluated in the past. It has been functioning appropriately. 9. Hyperlipidemia The patient will continue medical management. 10. Hypertension The patient will continue antihypertensive therapy with adjustment as needed. 11. Diabetes mellitus The patient will continue under the care of internal medicine. 12. Chronic renal insufficiency Her creatinine levels are being followed. They have increased somewhat. Overall, the patient's medications will be adjusted. She will be released home for continued outpatient follow-up. Comment: The above was discussed with the patient the [facility] hospitalist staff. This note was generated with [employer] dictation software. It may contain incorrect words, spelling, and punctuation that were not noted in checking the note before signing.
== END 2017-09-20 17:18 | disposition home or self-care (01) | DRG 292 ==
LOC: ED 15:27 → PCU 15:33
PROVIDERS: Hospitalist; Admitting Provider Family Medicine; Emergency Provider Emergency Medicine; Family Provider Internal Medicine; PCP Internal Medicine; Visit Provider Internal Medicine
DX: I50.23 Acute on chronic systolic (congestive) heart failure (principal); I42.9 Cardiomyopathy, unspecified; I47.2 Ventricular tachycardia; J96.11 Chronic respiratory failure with hypoxia; I27.20 Pulmonary hypertension, unspecified; I25.10 Atherosclerotic heart disease of native coronary artery without angina pectoris; I48.0 Paroxysmal atrial fibrillation; E11.9 Type 2 diabetes mellitus without complications; I12.9 Hypertensive chronic kidney disease with stage 1 through stage 4 chronic kidney disease, or unspecified chronic kidney disease; N18.3 Chronic kidney disease, stage 3 (moderate); E03.9 Hypothyroidism, unspecified; Z95.3 Presence of xenogenic heart valve; Z95.810 Presence of automatic (implantable) cardiac defibrillator; Z79.82 Long term (current) use of aspirin; Z79.4 Long term (current) use of insulin; Z79.01 Long term (current) use of anticoagulants; D63.8 Anemia in other chronic diseases classified elsewhere; E78.5 Hyperlipidemia, unspecified; Z66 Do not resuscitate; I08.3 Combined rheumatic disorders of mitral, aortic and tricuspid valves
CPT/HCPCS: 36415; 36416; 71045; 80048; 80061; 82962; 83735; 83880; 84443; 84484; 85025; 85027; 85610; 93005; 94640; 97110; 97116; 97161; 97165; 97530; 99285; A4216; J1940

== ENCOUNTER → 2017-10-03 12:18 | Outpatient (CLI) | payer MEDICARE, SELFPAY ==
[2017-10-03 14:04] LABS: Anion Gap 6 (5-15); BUN 83 mg/dL (7-18); BUN/Creat Ratio 44.6 RATIO (10-20); Calcium,Total 9.1 mg/dL (8.5-10.1); Chloride 96 mmol/L (98-107); Creatinine, Serum 1.86 mg/dL (0.55-1.02); EST Glomerular Filtration Rate 29 mL/min (>60); Est Glom Filt Rate - Afr Amer 35 mL/min (>60); Glucose 231 mg/dL (74-106); Sodium Level 136 mmol/L (136-145)
== END ==
PROVIDERS: Family Provider Internal Medicine; PCP Internal Medicine; Visit Provider Internal Medicine Cardiovascular Disease
DX: Z79.899 Other long term (current) drug therapy (principal)
CPT/HCPCS: 36415; 80048

== ENCOUNTER 2017-10-16 09:37 | Outpatient (RCR) | payer MEDICARE, SELFPAY ==
[2017-09-29 13:30] LABS: Prothrombin Time (Protime)PT. 40.5 SECONDS (11.7-14.9)
[2017-09-29 13:31] LABS: International Normalized Ratio 4.2
[2017-09-29 15:38] LABS: Anion Gap 11 (5-15); BUN 84 mg/dL (7-18); BUN/Creat Ratio 39.1 RATIO (10-20); Calcium,Total 9.1 mg/dL (8.5-10.1); Chloride 99 mmol/L (98-107); Creatinine, Serum 2.15 mg/dL (0.55-1.02); EST Glomerular Filtration Rate 24 mL/min (>60); Est Glom Filt Rate - Afr Amer 29 mL/min (>60); Glucose 154 mg/dL (74-106); Potassium 3.8 mmol/L (3.5-5.1); Sodium Level 141 mmol/L (136-145)
[2017-10-09 08:11] LABS: Prothrombin Time Fingerstick 31.1 SEC (11.9-14.4)
[2017-10-16 09:55] LABS: Prothrombin Time Fingerstick 20.1 SEC (11.9-14.4)
== END 2017-10-16 10:00 | disposition home or self-care (01) ==
LOC: LAB 09:37
PROVIDERS: Family Provider Internal Medicine; PCP Internal Medicine; Visit Provider Internal Medicine Cardiovascular Disease
DX: I48.0 Paroxysmal atrial fibrillation (principal); I25.10 Atherosclerotic heart disease of native coronary artery without angina pectoris; I50.9 Heart failure, unspecified
CPT/HCPCS: 36415; 36416; 80048; 85610

== ENCOUNTER 2017-11-14 11:54 | Emergency (ER) | payer MEDICARE, SELFPAY ==
[2017-11-14 11:56] VITALS: BP 128/52; PULSE 60; RESP 18; TEMP 36.8; O2SAT 89; BMI 33.0
--- NOTE | 2017-11-14 12:43 | ED.RN ---
pt disimpacted by dr valle. pt tolerated well
--- NOTE | 2017-11-14 12:45 | ED.VISSUMM ---
- ER Visit Summary Date of Service: 11/14/17 Chief Complaint: Constipation History of Present Illness: The patient is a 67 F with no bowel movement for 2 days. The patient feels rectal discomfort like she needs to have a bowel movement, but is unable. She tried jmpk-ymc-suqverx remedies with no success. She has not tried an enema. Physical Examination: Business Architect exam showed a fecal impaction. Abdomen soft and nontender. Skin appears normal. No other pertinent findings. Test Results: None indicated Emergency Department Course and Treatment: Solange RN pastoral ministries professor the exam. The patient had a digital disimpaction. She tolerated this with some discomfort but otherwise well. No bleeding or complications. Patient feels better afterwards and will be discharged. Treatment Plan: Continue nqkx-dmz-yheubzx remedies at home. Stay hydrated. Increase fiber intake. Disposition: Discharged Impression: 1. Fecal impaction This note was generated with [employer] dictation software. It may contain incorrect words, spelling, and punctuation that were not noted in review of the chart prior to signing ED Disposition - Plan for ED Patient: Chief Complaint: Constipation Referrals: Fiona Cardenas MD [Primary Care Provider] -
--- NOTE | 2017-11-14 12:48 | ED.DCSUM_ITS ---
- ER Visit Summary Date of Service: 11/14/17 Chief Complaint: Constipation History of Present Illness: The patient is a 67 F with no bowel movement for 2 days. The patient feels rectal discomfort like she needs to have a bowel movement, but is unable. She tried uxqm-mxu-kejkayh remedies with no success. She has not tried an enema. Physical Examination: Hair Boiler Operator exam showed a fecal impaction. Abdomen soft and nontender. Skin appears normal. No other pertinent findings. Test Results: None indicated Emergency Department Course and Treatment: Solange RN circular sawyer helper the exam. The patient had a digital disimpaction. She tolerated this with some discomfort but otherwise well. No bleeding or complications. Patient feels better afterwards and will be discharged. Treatment Plan: Continue rxlx-mfu-akbroex remedies at home. Stay hydrated. Increase fiber intake. Disposition: Discharged Impression: 1. Fecal impaction This note was generated with [employer] dictation software. It may contain incorrect words, spelling, and punctuation that were not noted in review of the chart prior to signing ED Disposition - Plan for ED Patient: Chief Complaint: Constipation Referrals: Fiona Cardenas MD [Primary Care Provider] -
--- NOTE | 2017-11-14 12:48 | ED.DEP ---
ED Disposition - Plan for ED Patient: Chief Complaint: Constipation Instructions: ED Constipation Referrals: Fiona Cardenas MD [Primary Care Provider] -
[2017-11-14 13:01] VITALS: BP 120/56; PULSE 62; RESP 18; O2SAT 91
== END 2017-11-14 13:20 | disposition home or self-care (01) ==
LOC: ED 13:03
PROVIDERS: Emergency Provider Emergency Medicine; Family Provider Internal Medicine; PCP Internal Medicine
DX: K56.41 Fecal impaction (principal); I13.0 Hypertensive heart and chronic kidney disease with heart failure and stage 1 through stage 4 chronic kidney disease, or unspecified chronic kidney disease; E11.22 Type 2 diabetes mellitus with diabetic chronic kidney disease; N18.9 Chronic kidney disease, unspecified; I50.9 Heart failure, unspecified; E78.00 Pure hypercholesterolemia, unspecified; I48.91 Unspecified atrial fibrillation; D64.9 Anemia, unspecified; Z79.4 Long term (current) use of insulin; Z79.01 Long term (current) use of anticoagulants; Z79.82 Long term (current) use of aspirin; Z79.899 Other long term (current) drug therapy
CPT/HCPCS: 99282

== ENCOUNTER 2017-11-20 12:29 | Outpatient (RCR) | payer MEDICARE, SELFPAY ==
[2017-10-23 08:26] LABS: Prothrombin Time Fingerstick 38.9 SEC (11.9-14.4)
[2017-10-30 12:05] LABS: Prothrombin Time Fingerstick 42.6 SEC (11.9-14.4)
[2017-10-30 12:42] LABS: Prothrombin Time (Protime)PT. 39.8 SECONDS (11.7-14.9)
[2017-10-30 12:45] LABS: International Normalized Ratio 4.1
[2017-11-03 10:40] LABS: Prothrombin Time Fingerstick 35.9 SEC (11.9-14.4)
[2017-11-09 12:02] LABS: Prothrombin Time (Protime)PT. 31.6 SECONDS (11.7-14.9)
[2017-11-20 12:41] LABS: Prothrombin Time Fingerstick 21.8 SEC (11.9-14.4)
== END 2017-11-20 14:00 | disposition home or self-care (01) ==
LOC: LAB 12:29
PROVIDERS: Family Provider Internal Medicine; PCP Internal Medicine; Visit Provider Internal Medicine Cardiovascular Disease
DX: I48.0 Paroxysmal atrial fibrillation (principal)
CPT/HCPCS: 36415; 36416; 85610

== ENCOUNTER 2017-12-22 10:00 | Outpatient (RCR) | payer MEDICARE, SELFPAY ==
[2017-12-04 09:35] LABS: International Normalized Ratio 2.4
[2017-12-04 09:47] LABS: Anion Gap 7 (5-15); BUN 78 mg/dL (7-18); BUN/Creat Ratio 39.6 RATIO (10-20); Calcium,Total 8.9 mg/dL (8.5-10.1); Chloride 96 mmol/L (98-107); Creatinine, Serum 1.97 mg/dL (0.55-1.02); EST Glomerular Filtration Rate 27 mL/min (>60); Est Glom Filt Rate - Afr Amer 32 mL/min (>60); Glucose 312 mg/dL (74-106); Potassium 3.9 mmol/L (3.5-5.1); Sodium Level 135 mmol/L (136-145)
[2017-12-22 11:29] LABS: International Normalized Ratio 2.7; Prothrombin Time (Protime)PT. 28.7 SECONDS (11.7-14.9)
[2017-12-22 11:47] LABS: Anion Gap 8 (5-15); BUN 76 mg/dL (7-18); BUN/Creat Ratio 40.6 RATIO (10-20); Calcium,Total 8.9 mg/dL (8.5-10.1); Chloride 101 mmol/L (98-107); Creatinine, Serum 1.87 mg/dL (0.55-1.02); EST Glomerular Filtration Rate 28 mL/min (>60); Est Glom Filt Rate - Afr Amer 34 mL/min (>60); Glucose 189 mg/dL (74-106); Potassium 3.8 mmol/L (3.5-5.1); Sodium Level 141 mmol/L (136-145)
== END 2017-12-22 11:00 | disposition home or self-care (01) ==
LOC: LAB 10:00
PROVIDERS: Family Provider Internal Medicine; PCP Internal Medicine; Visit Provider Internal Medicine Cardiovascular Disease
DX: I48.0 Paroxysmal atrial fibrillation (principal)
CPT/HCPCS: 36415; 80048; 85610

== ENCOUNTER 2017-12-28 09:22 | Emergency (ER) | payer MEDICARE, SELFPAY ==
[2017-12-28 09:23] VITALS: BP 124/60; PULSE 61; RESP 16; O2SAT 99
[2017-12-28 09:24] VITALS: BP 109/55; PULSE 62; RESP 16; TEMP 36.5; O2SAT 93; BMI 33.0
--- NOTE | 2017-12-28 09:32 | ED.VISSUMM ---
- ER Visit Summary Date of Service: 12/28/17 Chief Complaint: Right hip pain History of Present Illness: The patient is a 67 F with history of arthritis presents to the emergency department with increasing right hip pain. Patient states over the past 2 days, she has had a dull ache in her right hip that is worsened. She states it hurts to bend the leg. She states when she tries to sit to use the bathroom, she gets excruciating pain. The pain does not radiate all the way down her leg. It is mostly over the right greater trochanter. She has not fallen. She denies any fevers or chills. She states that she has chronic dyspnea which is unchanged. The patient does have a history of transaortic valve replacement and is on Coumadin. She is given compliant with this therapy. She denies back pain. She denies any urinary symptoms. Physical Examination: Vital signs reviewed General: Well-nourished, well-developed Head: Normocephalic, atraumatic Eyes: Pupils equal and reactive, extraocular muscles intact Neck, supple, no lymphadenopathy Heart: Regular rate and rhythm Respiratory: No distress, clear bilaterally Abdomen: Soft, nontender, nondistended, no peritoneal signs Back: Nontender Extremities: Tender over the right lateral hip. No erythema. Tinea within the folds. Normal popliteal pulses, no edema, no cords Skin: Normal color no rash Neuro: Alert and oriented, no focal or lateralizing deficits Test Results: [] Emergency Department Course and Treatment: The patient has normal pulses of her lower extremity. She does have some pain with logroll. Screening labs are obtained. Her INR is therapeutic. He do not suspect vascular crisis. X-rays do show chronic change. The patient was given morphine. She was able to ambulate the bathroom without pain. Discussion with the patient, she has had significant pain improvement with tramadol. I will write her a very short course and told her to use this sparingly. She will continue scheduled Tylenol and only use tramadol as needed. Her sister at the bedside is comfortable with this plan of care. She will be discharged home. Treatment Plan: [] Disposition: Discharge Impression: 1. Exacerbation of chronic right hip pain This note was generated with [employer] dictation software. It may contain incorrect words, spelling, and punctuation that were not noted in review of the chart prior to signing ED Disposition - Plan for ED Patient: Disposition: Home or Assisted Living Chief Complaint: Lower Extremity Injury Instructions: ED Sprain Hip Prescriptions: traMADol [Ultram] 50 mg PO Q4H PRN PRN 3 Days #12 tablet PRN Reason: Pain traMADol [Ultram] 50 mg PO Q4H PRN PRN 3 Days #12 tab PRN Reason: Pain Referrals: Fiona Cardenas MD [Primary Care Provider] -
[2017-12-28] MEDS: Morphine 4 MG/ML Syringe IV (09:43)
[2017-12-28] MEDS: Ondansetron 4 MG/2 ML Vial IV (09:43)
[2017-12-28 09:56] LABS: Absolute Lymphocyte Count 1.28 X10^3/ul (0.83-4.51); Absolute Neutrophil Count 8.8 X10^3/uL (2.0-7.7); Basophil# 0.02 X10^3/uL; Basophil% 0.2 % (0-1); Eosinophil# 0.11 X10^3/uL; Eosinophils% 1.1 % (0-5); Hematocrit 33.7 % (37-47); Hemoglobin 10.1 g/dl (12.0-15.0); Lymphocyte # 1.28 X10^3/ul (4.0); Lymphocyte % 12.2 % (19-41); Mean Corpuscular Hgb 28.9 pg (27.0-32.0); Mean Corpuscular Volume 96.3 fL (81-99); Mean Platelet Vol. 10.6 fl (6.2-12.0); Monocyte# 0.12 X10^3/uL; Monocyte% 1.1 % (0-10); Neutrophil # 8.82 X10^3/uL (2.7-7.7); Neutrophil % 84.4 % (47-70); Platelet Count 175 K/mm3 (150-450); White Blood Count 10.5 K/mm3 (4.4-11.0)
[2017-12-28 10:02] LABS: Anion Gap 8 (5-15); BUN 70 mg/dL (7-18); BUN/Creat Ratio 36.6 RATIO (10-20); Calcium,Total 9.1 mg/dL (8.5-10.1); Chloride 99 mmol/L (98-107); Creatinine, Serum 1.91 mg/dL (0.55-1.02); EST Glomerular Filtration Rate 28 mL/min (>60); Est Glom Filt Rate - Afr Amer 34 mL/min (>60); Estimated Creatinine Clearance 26.02 ml/min; Glucose 209 mg/dL (74-106); Sodium Level 140 mmol/L (136-145)
[2017-12-28 10:04] LABS: POSITIVE COUNT NO; POSITIVE DIFFERENTIAL NO; POSITIVE MORPHOLOGY NO
[2017-12-28 10:08] LABS: International Normalized Ratio 2.3; Prothrombin Time (Protime)PT. 25.4 SECONDS (11.7-14.9)
== END 2017-12-28 11:56 | disposition home or self-care (01) ==
PROVIDERS: Emergency Provider Emergency Medicine; Family Provider Internal Medicine; PCP Internal Medicine
DX: M25.551 Pain in right hip (principal); G89.29 Other chronic pain; I25.10 Atherosclerotic heart disease of native coronary artery without angina pectoris; E11.9 Type 2 diabetes mellitus without complications; I10 Essential (primary) hypertension; E78.00 Pure hypercholesterolemia, unspecified; Z95.2 Presence of prosthetic heart valve; Z79.4 Long term (current) use of insulin; Z79.01 Long term (current) use of anticoagulants; Z79.82 Long term (current) use of aspirin; Z79.899 Other long term (current) drug therapy
CPT/HCPCS: 73502; 80048; 85025; 85610; 96374; 96375; 99285; A4216; J2405

== ENCOUNTER 2018-01-01 14:35 | Observation (INO) | payer MEDICARE, SELFPAY ==
[2018-01-01 14:37] VITALS: BP 123/104; PULSE 70; RESP 18; TEMP 36.5; O2SAT 99; BMI 33.4
--- NOTE | 2018-01-01 15:12 | CT_ITS ---
STUDY: CT HIP WITHOUT CONTRAST RIGHT REASON FOR EXAM: Female, 67 years old. Right hip pain, arthritis. RADIATION DOSAGE (If Supplied By Facility): CTDIvol = ( 42.03 ) mGy, DLP = ( 1490.39 ) mGycm. Individualized dose optimization techniques were used for this CT.? FLUOROSCOPY TIME (if supplied): ( ) minutes/seconds TECHNIQUE: Axial images were obtained from the iliac crest through the lesser trochanters without contrast. Coronal and sagittal reformats were performed. COMPARISON: None. FINDINGS: There is no fracture or dislocation. There is mild joint space narrowing. Moderate subchondral cystic changes are noted in the femoral head. Mild subchondral cystic changes are noted in the acetabulum, greatest posteromedially. Muscles about the right hip are unremarkable. Visualized pelvic structures are unremarkable. CT/Extremity Lower without Contra IMPRESSION: Moderate osteoarthrosis of the right hip. Electronically Signed: Niesha Lopez MD at 16:53 EDT Tel , Service support ,
--- NOTE | 2018-01-01 15:15 | ED.DCSUM_ITS ---
- ER Visit Summary Date of Service: 01/01/18 Chief Complaint: Right hip pain History of Present Illness: The patient is a [address] Cardenas. She reports that she has right hip pain that began 4 days ago. No trauma. No fall , MVA, or change in activity. She was seen in the emergency department at that time and had x-rays and blood work obtained. She reports that she was discharged on tramadol. This was not controlling her pain and she saw her primary care physician was placed on oxycodone and prednisone. Despite this she still complains of an aching pain is 10 out of 10 severity. Is worsened by movement. Review of systems: General: No fever, chills, cold sweats. Cardiovascular: No chest pain, palpitations. Respiratory: No cough, shortness of breath, dyspnea on exertion. Gastrointestinal: No abdominal pain, nausea, vomiting, diarrhea, melena, or hematochezia. Genitourinary: No dysuria, frequency, hematuria. Skin: No rash. Neuro: No headache, numbness, weakness. Physical Examination: Vitals: Stable. Afebrile. General: Well-nourished and well-developed. Head: Normocephalic atraumatic. Neck: Supple, no lymphadenopathy. No JVD. Nontender. Cardiovascular: Regular rate and rhythm. No murmurs. Respiratory: No respiratory distress. Clear to auscultation bilaterally. Abdominal: Soft, nontender, nondistended, normal bowel sounds. No guarding, rebound, or peritoneal signs. Back: Nontender. Extremities: Moderate tenderness palpation of the greater trochanter. Pain with even light palpation of her skin only. There is no rash or vesicular lesions to suggest shingles. She has 2+ pitting edema over lower extreme is bilateral chronic venous stasis changes. She is neurovascular intact distally. She is a palpable dorsalis pedis pulse bilaterally.. Skin: Normal color, no rash. Neurologic: Alert and oriented ?3. Cranial nerves II through XII are intact. Normal strength and sensation. Psych: Normal affect. Test Results: Right femur x-ray shows diffuse osteopenia with no acute disease. CT of the hip shows moderate osteoarthritis. Emergency Department Course and Treatment: Patient was treated with a dose of morphine IV. She was discussed with case management and they had physical therapy come and see her. Patient is not safe for discharge and ambulation at home. She does live alone. Treatment Plan: Patient will be admitted to the hospital overnight for precertification for a correction. She was discussed with Dr. Mendez. Disposition: Admitted in stable condition. Impression: 1. Right hip pain, acute. 2. Coumadin coagulopathy. This note was generated with [employer] dictation software. It may contain incorrect words, spelling, and punctuation that were not noted in review of the chart prior to signing ED Disposition - Plan for ED Patient: Chief Complaint: Lower Extremity Injury Referrals: Fiona Cardenas MD [Primary Care Provider] -
--- NOTE | 2018-01-01 15:40 | CM.ED ---
CM INITIAL ASSESSMENT: Home: Patient states she lives in a condo with first floor setup. She has a ramp to enter the home with railing. HHS/Aides: Patient is privately paying for a friend who is a nurse to come and wrap her legs and give sponge baths. The nurse comes to her home twice a week. She has had personal touch home health therapy in the past. Upon offering to setup further home health, the patient states I need more than that. DME: Patient uses a walker to ambulate, but states Now I can hardly do anything even with my walker. Patient also has a elevated toilet seat, can, grab bars, rollator, walk-in shower with chair. Home Oxygen: [facility]L [facility] Advance Directives: Patient states her medical POA is her digital forensics investigator, Dionicio Eldridge, located on [place]. Patient tearful as she tells me that her one year ago, last week. She tells me, I want to go to a fci. She states she's been taking oxycodone, as prescribed, and remains in too much pain to ambulate. I discussed the process for fci placement and the patient states understanding. Patient states her preference for SNF would be [facility]. She states that she does not want to go to [facility], [facility], or [place]. She denies second preference at this time. Case discussed with Ryne Pollack, social worker. PT to evaluate patient in ED. DC Plan: TBD at this time. CM will continue to follow for safe and effective discharge planning.
[2018-01-01] MEDS: Morphine 4 MG/ML Syringe IV (15:48)
--- NOTE | 2018-01-01 16:00 | RAD_ITS ---
STUDY: X-RAY - RIGHT FEMUR REASON FOR STUDY: Female, 67 years old. Right hip and leg pain TECHNIQUE: Radiological exam, femur, minimum 2 views 5 views COMPARISON: None. FINDINGS: There is diffuse demineralization of the femur. Normal visualized soft tissue structure. There is no demonstrated fracture or destructive process. Vascular calcifications. RAD/Femur Min 2 Views IMPRESSION: Diffuse osteopenia, no demonstrated fracture or suspicious osseous lesion. Electronically Signed: Raymundo Vila MD at 16:36 EDT , Service support ,
--- NOTE | 2018-01-01 17:31 | CM.ED ---
PT evaluation performed in ED. Patient is appropriate for further skilled therapy. Care team updated. Observation status appropriate at this time. Discussed plan with patient and she is agreeable. Social work will see patient tomorrow to begin precert process for SNF placement.
--- NOTE | 2018-01-01 17:51 | PCM.HP.STD ---
Problem List (1) Hip pain Status: Acute (2) Debility Status: Acute (3) CHF exacerbation Status: Chronic (4) Atrial fibrillation Status: Chronic Qualifiers: (5) Chronic renal insufficiency Status: Chronic (6) CAD (coronary artery disease) Status: Chronic (7) ICD (implantable cardioverter-defibrillator) in place Status: Chronic (8) Aortic stenosis Status: Chronic Comment: s/p TAVR (9) Paroxysmal atrial tachycardia Status: Chronic (10) ICD (implantable cardioverter-defibrillator) in place Status: Chronic (11) Anemia of chronic disease Status: Chronic (12) Cardiomyopathy, noncoronary Status: Chronic (13) HTN (hypertension) Status: Chronic Qualifiers: (14) S/p TAVR (transcatheter aortic valve replacement), bioprosthetic Status: Chronic Comment: 26 mm Bond Sapein Bioprosthetic Aortic Valve (15) HLD (hyperlipidemia) Status: Chronic Qualifiers: (16) Chronic atrial fibrillation Status: Chronic History of Present Illness Date of Admission: 01/01/18 Chief Complaint: right hip pain The patient is a 67 year old F with an extensive medical hx as above and otherwise in her normal state of health who presents to the ER with c/o right hip pain that began last monday. Pt states that the pain came on spontaneously without any inciting trauma or specific movement. It was severe enough to warrant going to the ER, during which imaging was performed and she was told she had arthritis and sent home with tramadol. Her pain did not improve at all so she then later went to see her TRAVELING OPERATOR, who placed her on steroids and oxycodone. She had minimal relief but today her pain was worse. She is still able to ambulate with difficulty. She has right lumbar pain, right hip, and right thigh pain. She does not feel safe returning home in this condition and is afraid that she might fall. She ambulates with a rollator. She is not interest in injections at this time. [] Past Medical History Past Medical History (Chronic Problems): Chronic Problems (Last Reviewed 11/20/17 @ 13:02 by Stefany Carrion) CHF exacerbation (Chronic) Atrial fibrillation (Chronic) Chronic renal insufficiency (Chronic) CAD (coronary artery disease) (Chronic) ICD (implantable cardioverter-defibrillator) in place (Chronic) Aortic stenosis (Chronic) s/p TAVR Paroxysmal atrial tachycardia (Chronic) Rheumatic tricuspid insufficiency (Chronic) ICD (implantable cardioverter-defibrillator) in place (Chronic) Ventricular tachycardia (paroxysmal) (Chronic) S/P AICD Anemia of chronic disease (Chronic) Cardiomyopathy, noncoronary (Chronic) HTN (hypertension) (Chronic) S/p TAVR (transcatheter aortic valve replacement), bioprosthetic (Chronic) 26 mm Bond Sapein Bioprosthetic Aortic Valve HLD (hyperlipidemia) (Chronic) Mitral valve stenosis and regurgitation (Chronic) Mild to moderate mitral valve stenosis with moderate mitral valve insufficiency Chronic atrial fibrillation (Chronic) Medical History: Medical History (Last Reviewed 11/20/17 @ 13:02 by Stefany Carrion) Aortic stenosis (Chronic) I35.0 s/p TAVR Paroxysmal atrial tachycardia (Chronic) I47.1 Rheumatic tricuspid insufficiency (Chronic) I07.1 ICD (implantable cardioverter-defibrillator) in place (Chronic) Z95.810 Ventricular tachycardia (paroxysmal) (Chronic) I47.2 S/P AICD Anemia of chronic disease (Chronic) D63.8 Cardiomyopathy, noncoronary (Chronic) I42.8 HTN (hypertension) (Chronic) I10 HLD (hyperlipidemia) (Chronic) E78.5 Mitral valve stenosis and regurgitation (Chronic) I05.2 Mild to moderate mitral valve stenosis with moderate mitral valve insufficiency Chronic atrial fibrillation (Chronic) I48.2 CKD (chronic kidney disease) N18.9 Cellulitis of leg, left L03.116 Family history of CVA Z82.3 History of rheumatic fever Z86.79 Lymphedema of both lower extremities I89.0 PAOD (peripheral arterial occlusive disease) I77.9 Type 2 diabetes mellitus E11.9 Chronic venous insufficiency I87.2 Rheumatoid arthritis M06.9 CAD (coronary artery disease) (Inactive) I25.10 CHF (congestive heart failure) (Inactive) I50.9 ef around 40% Cellulitis of leg, left (Inactive) L03.116 left second toe Chronic kidney disease (Inactive) N18.9 Chronic venous insufficiency (Inactive) bilateral legs 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 Encounter for cardioversion procedure (Inactive) Z01.89 Exogenous obesity (Inactive) E66.9 Family history of CVA (Inactive) Z82.3 Leg pain, bilateral (Inactive) M79.604, M79.605 Lymphedema (Inactive) I89.0 Lymphedema of both lower extremities (Inactive) I89.0 Morbid obesity (Inactive) E66.01 PAOD (peripheral arterial occlusive disease) (Inactive) I77.9 Pulmonary artery hypertension (Inactive) I27.2 Right ventricular systolic pressure estimated at 50 in November 2016 Rheumatoid arthritis (Inactive) M06.9 Urinary tract infection (Inactive) N39.0 Allergies amoxicillin trihydrate [From Augmentin] Allergy (Verified 11/20/17 13:00) Rash potassium clavulanate [From Augmentin] Allergy (Verified 11/20/17 13:00) Rash Sulfa (Sulfonamide Antibiotics) Allergy (Verified 11/20/17 13:00) Hives vancomycin Allergy (Verified 11/20/17 13:00) Other ROSLYN SYNDROME Home Medications: Ambulatory Orders Medication Instructions Recorded Aspirin [Aspirin, Baby] 81 mg PO DAILY 03/04/14 Insulin Glargine,Hum.rec.anlog 42 unit SQ BREAKFAST 12/17/16 [Lantus] Levothyroxine [Synthroid] 75 mcg PO 0600 12/17/16 Polyethylene Glycol 3350 [Miralax] 17 gm PO DAILY 12/18/16 Acetaminophen [Tylenol] 1,000 mg PO Q8H PRN PRN tab 02/01/17 amiodarone 200 mg tablet 200 mg PO DAILY #30 tab 03/31/17 Furosemide 40 mg PO BID 06/20/17 Insulin Aspart [Novolog Flexpen] 5 units SC BREAKFAST 06/20/17 Docusate Sodium [Colace] 100 mg PO DAILY 07/22/17 atorvastatin 40 mg tablet 40 mg PO QHS #90 tab 09/11/17 Insulin Aspart [Novolog Flexpen] 8 unit SQ BID 09/17/17 Metolazone [Zaroxolyn] 5 mg PO MOWEFR #12 tab 09/20/17 spironolactone 25 mg tablet 25 mg PO DAILY #90 tab 10/13/17 warfarin 4 mg tablet 4 mg PO .COMPLEX 10/23/17 warfarin 1 mg tablet 1 mg PO .COMPLEX #60 tab 10/30/17 carvedilol 6.25 mg tablet 6.25 mg PO BID #180 tab 12/26/17 traMADol [Ultram] 50 mg PO Q4H PRN PRN 3 Days #12 tab 12/28/17 traMADol [Ultram] 50 mg PO Q4H PRN PRN 3 Days #12 12/28/17 tablet Surgical History: Surgical History (Last Reviewed 11/20/17 @ 13:02 by Stefany Carrion) S/p TAVR (transcatheter aortic valve replacement), bioprosthetic (Chronic) Z95.3 26 mm Bond Sapein Bioprosthetic Aortic Valve History of tonsillectomy and adenoidectomy Z98.890 History of total hysterectomy Z98.890, Z90.710 Hx of appendectomy Z98.890, Z90.49 Surgical History: appendectomy, tonsillectomy, - - TAVR, ICD/PM, AV fistula Psychiatric History: No pertinent psych hx 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 History: No pertinent 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 history Smoking Status: Never smoker - *Family History Maternal Family History: Family History (Last Reviewed 11/20/17 @ 13:02 by Stefany Carrion) Father CVA (cerebral vascular accident) Valvular heart disease Presence of permanent cardiac pacemaker Mother CVA (cerebral vascular accident) Other Family history of CVA History Items: - - heart disease, stroke Paternal Family History: Family History (Last Reviewed 11/20/17 @ 13:02 by Stefany Carrion) Father CVA (cerebral vascular accident) Valvular heart disease Presence of permanent cardiac pacemaker Mother CVA (cerebral vascular accident) Other Family history of CVA History Items: - - father with kidney disease, heart disease and stroke Review of Systems Constitutional: Denies: Chills, Fever, Weight Change HEENT: Denies: Head Aches, Sinus Congestion, Sinus Drainage Cardiovascular: Denies: Chest Pain, Palpitations Respiratory: Denies: Cough, Shortness of breath at rest, Sputum production Gastrointestinal: Denies: Abdominal Pain, Nausea, Vomiting Genitourinary: Denies: Dysuria Musculoskeletal: Reports: - - right hip, right thigh, right lumbar pain. Denies: Joint Pain, Joint Tenderness Skin: Denies: Rash, Wounds Neurological: Denies: Numbness, Tingling, Focal weakness Psychiatric: Denies: Anxiety, Depression, Homicidal Ideations, Suicidal Ideations Hematologic/ Lymphatic: Denies: Easy Bruising, Easy Bleeding VTE Information - Inpt Only VTE Present on Admission: No VTE Mechan Device Prophylaxis: None VTE Pharm Prophylaxis ordered?: Yes Patient Problems: Active and Suspected Problems (Last Reviewed 11/20/17 @ 13:02 by Stefany Carrion) Hip pain (Acute) Debility (Acute) - Physical Exam General: Alert, Oriented x3, Cooperative HEENT: Atraumatic, PERRLA, EOMI, Normocephalic Neck: Supple, No JVD, Negative Carotid Bruits Lungs: Clear to auscultation, Normal air movement Cardiovascular: Regular rate, Murmur - 2/6 systolic murmur best heard over the LSB 2nd intercostal space. Abdomen: Bowel Sounds Present, Soft, Non Tender, Obese Extremities: Edema - lymphedema Skin: No rashes, No breakdown Musculoskeletal: - - tender to light palp worst over thigh, also over hip. no crepitation Neurological: Cranial nerves II-XII grossly intact Psych/Mental Status: Anxious, Alert and oriented to time, place, person, mood and affect Vital Signs Temp Pulse Resp BP Pulse Ox 97.7 F L 70 18 123/104 H 99 01/01/18 14:37 01/01/18 14:37 01/01/18 14:37 01/01/18 14:37 01/01/18 14:37 Oxygen Flow Rate (L/min) 2 Oxygen Delivery Method Nasal Cannula Weight: 207 lb 3.752 oz Body Mass Index (BMI) 33.4 Finger Stick Blood Glucose 261 Assessment/Plan All Active Problems (Last Reviewed 11/20/17 @ 13:02 by Stefany Carrion) Hip pain (Acute) Debility (Acute) Atrial fib/flutter, transient (Resolved) Atrial fibrillation with rapid ventricular response (Resolved) Bilateral lower leg cellulitis (Resolved) Cellulitis of leg (Resolved) Chest pain (Resolved) Skin tear of left upper extremity (Resolved) Venous stasis ulcer (Resolved) Venous ulcer of leg (Resolved) Cellulitis of leg without foot, left (Ruled-out) 1. Intractable right hip pain - imaging (CT LE, Femur XR) with arthritis, degen changes, no acute fractures. Difficulty ambulating. Admit to MS and start aggressive pain management and PTOT. Pt likely unable to return home, needs short term SNF. 2. CAD, CHF, ischemic cardiomyopathy, HTN - continue home meds. Pt of Dr. See. PM/ICD in place. 3. PAfib - appears to be in SR and rate controlled, continue amiodarone, coreg, warfarin. 4. Lymphedema - daily fallon wraps 5. CKD IV - prior dialysis now off. Follows [place] [facility]. NO NSAIDS. 6. T2DM - continue insulin regimen with SSI 7. Hx s/p TAVR 8. Hypothyroid - synthroid 9. Anemia of chronic dz - last hgb stable DVT ppx: warfarin DC planning: SNF, PTOT This patient was seen by Cristian Dotson PA-C under the supervision of Doctor Vanessa.
--- NOTE | 2018-01-01 18:04 | NURSING ---
MED SURG HIP PAIN, INTRACTABLE OBS WHITE
[2018-01-01 18:15] VITALS: PULSE 62; RESP 18; O2SAT 99
[2018-01-01 19:00] VITALS: BP 117/68; PULSE 66; RESP 18; TEMP 36.6; O2SAT 99; BMI 33.4
[2018-01-01 19:14] VITALS: BMI 33.4
[2018-01-01] MEDS: Lidocaine 5% Patch 2 PATCH TOPICAL (19:55)
[2018-01-01] MEDS: Furosemide 40 MG Tablet PO (19:55)
[2018-01-01 20:52] LABS: Absolute Lymphocyte Count 0.36 X10^3/ul (0.83-4.51); Absolute Neutrophil Count 9.1 X10^3/uL (2.0-7.7); Anion Gap 4 (5-15); BUN 77 mg/dL (7-18); BUN/Creat Ratio 44.8 RATIO (10-20); Basophil# 0.01 X10^3/uL; Basophil% 0.1 % (0-1); Calcium,Total 8.8 mg/dL (8.5-10.1); Chloride 98 mmol/L (98-107); Creatinine, Serum 1.72 mg/dL (0.55-1.02); Differential Indicated SCAN CRITERIA MET; EST Glomerular Filtration Rate 31 mL/min (>60); Est Glom Filt Rate - Afr Amer 38 mL/min (>60); Glucose 290 mg/dL (74-106); Hemoglobin 9.9 g/dl (12.0-15.0); Lymphocyte # 0.36 X10^3/ul (4.0); Lymphocyte % 3.5 % (19-41); Mean Corpuscular Hgb 28.8 pg (27.0-32.0); Mean Corpuscular Volume 95.9 fL (81-99); Mean Platelet Vol. 10.8 fl (6.2-12.0); Monocyte# 0.79 X10^3/uL; Monocyte% 7.6 % (0-10); Neutrophil # 9.06 X10^3/uL (2.7-7.7); Neutrophil % 87.7 % (47-70); POSITIVE COUNT NO; POSITIVE DIFFERENTIAL YES; POSITIVE MORPHOLOGY NO; Platelet Count 187 K/mm3 (150-450); Potassium 4.5 mmol/L (3.5-5.1); RBC Distribution Width CV 14.7 % (11.6-14.6); Red Blood Count 3.44 M/mm3 (4.2-5.4); Sodium Level 139 mmol/L (136-145); White Blood Count 10.3 K/mm3 (4.4-11.0)
[2018-01-01 21:00] LABS: Prothrombin Time (Protime)PT. 37.7 SECONDS (11.7-14.9)
[2018-01-01 21:01] LABS: International Normalized Ratio 3.8
[2018-01-01 21:02] LABS: Magnesium 2.8 mg/dL (1.6-2.6)
[2018-01-01 21:21] LABS: Differential Comment SCANNED
[2018-01-01] MEDS: oxyCODONE 5 MG Tablet PO (22:09)
[2018-01-01] MEDS: Insulin Lispro 100 UNIT/ML INSULN.PEN SC (22:09)
[2018-01-01] MEDS: Carvedilol 6.25 MG Tablet PO (22:09)
[2018-01-01] MEDS: Atorvastatin Calcium 40 MG Tablet PO (22:09)
[2018-01-01 22:30] LABS: Bedside Glucose 227 mg/dL (70-110)
[2018-01-02 01:45] VITALS: BP 99/61; PULSE 64; RESP 16; TEMP 36.6; O2SAT 100
[2018-01-02 05:59] LABS: Prothrombin Time (Protime)PT. 38.1 SECONDS (11.7-14.9)
[2018-01-02 06:05] LABS: Absolute Lymphocyte Count 0.88 X10^3/ul (0.83-4.51); Basophil# 0.03 X10^3/uL; Basophil% 0.3 % (0-1); Eosinophil# 0.06 X10^3/uL; Eosinophils% 0.6 % (0-5); Hematocrit 31.8 % (37-47); Hemoglobin 9.8 g/dl (12.0-15.0); Lymphocyte # 0.88 X10^3/ul (4.0); Lymphocyte % 8.6 % (19-41); Mean Corp Hgb Conc 30.8 g/gl (32-36); Mean Corpuscular Hgb 29.8 pg (27.0-32.0); Mean Corpuscular Volume 96.7 fL (81-99); Mean Platelet Vol. 10.8 fl (6.2-12.0); Monocyte# 0.99 X10^3/uL; Monocyte% 9.7 % (0-10); Neutrophil # 8.04 X10^3/uL (2.7-7.7); Neutrophil % 78.7 % (47-70); Platelet Count 172 K/mm3 (150-450); RBC Distribution Width CV 14.5 % (11.6-14.6); RBC Distribution Width SD 48.4 fl (35.1-43.9); Red Blood Count 3.29 M/mm3 (4.2-5.4); White Blood Count 10.2 K/mm3 (4.4-11.0)
[2018-01-02 06:06] LABS: POSITIVE COUNT YES; POSITIVE DIFFERENTIAL NO; POSITIVE MORPHOLOGY YES
[2018-01-02 06:12] LABS: Anion Gap 10 (5-15); BUN 77 mg/dL (7-18); BUN/Creat Ratio 48.7 RATIO (10-20); Calcium,Total 8.9 mg/dL (8.5-10.1); Chloride 99 mmol/L (98-107); Creatinine, Serum 1.58 mg/dL (0.55-1.02); EST Glomerular Filtration Rate 34 mL/min (>60); Est Glom Filt Rate - Afr Amer 42 mL/min (>60); Estimated Creatinine Clearance 31.46 ml/min; Glucose 121 mg/dL (74-106); Potassium 3.9 mmol/L (3.5-5.1); Sodium Level 144 mmol/L (136-145)
[2018-01-02 06:15] LABS: International Normalized Ratio 3.8
[2018-01-02 06:25] VITALS: BP 111/61; PULSE 64; RESP 16; TEMP 36.5; O2SAT 98
[2018-01-02] MEDS: oxyCODONE 5 MG Tablet PO ×3 (06:30→19:20)
[2018-01-02] MEDS: Levothyroxine 75 MCG Tablet PO (06:31)
[2018-01-02 07:50] LABS: Bedside Glucose 128 mg/dL (70-110)
[2018-01-02] MEDS: Insulin Lispro 100 UNIT/ML INSULN.PEN SC ×2 (08:19→11:39)
[2018-01-02] MEDS: Aspirin 81 MG TAB.CHEW PO (08:20)
[2018-01-02] MEDS: Docusate Sodium 100 MG Capsule PO (08:24)
[2018-01-02] MEDS: Polyethylene Glycol 3350 17 GM PACKET PO (08:24)
[2018-01-02] MEDS: Carvedilol 6.25 MG Tablet PO ×2 (08:25→21:34)
[2018-01-02] MEDS: Spironolactone 25 MG Tablet PO (08:25)
[2018-01-02] MEDS: Amiodarone 200 MG Tablet PO (08:25)
[2018-01-02] MEDS: Furosemide 40 MG Tablet PO ×2 (08:26→17:54)
[2018-01-02] MEDS: Lidocaine 5% Patch 2 PATCH TOPICAL (08:32)
--- NOTE | 2018-01-02 10:17 | CASEMGMT ---
Social Work Note SUSAN placed a call to Cyndie, Quality Department, to make referral to [facility] [place]. It should be noted that [facility] is not in network with pt's insurance and Aggie at [facility] will have to check out of network benefits for pt. SUSAN placed a call to Aggie at [facility] [place]. Aggie states that she will review out of network benefits and will give this worker a call back. Plan: [facility] [place] pending out of network benefits Tori Kidd MOLD CLOSER, CALENDER ROLL OPERATOR
--- NOTE | 2018-01-02 10:30 | CASEMGMT ---
Per SUSAN Valle, referral needs sent to [facility]. Voicemail left for Aggie, kip. Referral sent, confirmation rec'd. Cyndie Huffman LPN Clinical Support
[2018-01-02 11:20] LABS: CPK Total, Creatine Kinase 159 U/L (26-192)
[2018-01-02 11:22] VITALS: O2SAT 99
[2018-01-02 11:23] LABS: Erythrocyte Sedimentation Rate 39 mm/hr (0-30)
[2018-01-02] MEDS: Insulin Lispro 100 UNIT/ML INSULN.PEN 8 UNIT SC (11:39)
[2018-01-02 11:46] LABS: Bedside Glucose 160 mg/dL (70-110)
--- NOTE | 2018-01-02 12:16 | CASEMGMT ---
Social Work Note SW spoke with Aggie at [facility] [place] who checked out of network benefits for pt and pt's out of network benefits are really good and the co-pay could be similar to in network co-pay. Aggie states that she has submitted for pre-cert and will let this worker know when pre-cert has been obtained. SW in to update pt of this. Pt states understanding. Plan: [facility] [place] pending pre-cert Tori Kidd MAINTENANCE OPERATOR, DIRECTOR MEDICAL SCIENCE
[2018-01-02 12:25] VITALS: BP 116/60; PULSE 62; RESP 16; TEMP 36.6; O2SAT 100
--- NOTE | 2018-01-02 14:34 | CHAPLAIN ---
Type of Pastoral Visit _x__ Initial Visit ___ Follow-up Visit ___ On-call Visit ___ General Patient Visit ___ Spiritual Assessment ___ Family Conference ___ Bereavement ___ Rapid Response ___ Code Blue ___ Other (describe below) Pastoral Care Referral From _x__ Patient ___ Family ___ Nurse ___ Physician ___ Roadway Designer ___ Switch Coupler ___ Other (describe below) Sacrament/Intervention _x__ Active listening ___ Anointing ___ Anabaptist ___ Bereavement ___ Communion ___ Denisse exploration ___ _x__ Life review _x__ Prayer ___ Reconciliation ___ Sacrament of Sick _x__ Supportive presence ___ Wedding ___ Other (describe below) Pastoral Comments this patient has been admitted here before and has been seen numerous times by this carbon blocks press operator; follow up for current situation; pt describes intense and debilitating pain; pt would like to go somewhere for therapy; pt speaks of being anxious about being home alone; pt has extended family but no one in immediate family; pt speaks of other family members who have health issues; pt requests prayer support; pt is talkative
[2018-01-02] MEDS: proMETHazine 25 MG Tablet 12.5 MG PO (14:37)
[2018-01-02 15:17] LABS: Pathologist Review Reviewed
--- NOTE | 2018-01-02 15:23 | PN_ITS ---
<Cristian Dotson - Last Filed: 01/02/18 15:17> Patient Problems: Active and Suspected Problems (Last Reviewed 11/20/17 @ 13:02 by Stefany Carrion) Hip pain (Acute) Debility (Acute) Subjective: back hip and thigh (R) all continue to be painful, most notably of the right anterior thigh. She does state that overall her pain has improved. She used the bedside commode but otherwise had not ambulated this AM. She notes the patches are helping significantly. Nausea without vomiting this AM. - Physical Exam General: Alert, Oriented x3, Cooperative HEENT: Atraumatic, PERRLA, EOMI, Normocephalic Neck: Supple, No JVD, Negative Carotid Bruits Lungs: Clear to auscultation, Normal air movement Cardiovascular: Regular rate, No murmurs Abdomen: Bowel Sounds Present, Soft, Non Tender Extremities: No edema, Capillary Refill Less than 3 Seconds Skin: No rashes, No breakdown Musculoskeletal: - - tender to light palp right thigh Neurological: Cranial nerves II-XII grossly intact Psych/Mental Status: Normal Affect, Appropriate Vital Signs Temp Pulse Resp BP Pulse Ox 97.8 F 62 16 116/60 100 01/02/18 12:25 01/02/18 12:25 01/02/18 12:25 01/02/18 12:25 01/02/18 12:25 Oxygen Flow Rate (L/min) 2 Oxygen Delivery Method Nasal Cannula Weight: 207 lb 3.752 oz Body Mass Index (BMI) 33.4 Intake and Output for Last 24 Hours 12/31/17 01/01/18 01/02/18 23:59 23:59 23:59 Intake Total 200 / 200 Output Total 1500 / 1500 Balance -1300 / -1300 Laboratory Tests Past 24 Hrs 01/01/18 01/01/18 01/01/18 20:17 20:17 20:17 WBC 10.3 RBC 3.44 L Hgb 9.9 L Hct 33.0 L MCV 95.9 MCH 28.8 MCHC 30.0 L RDW 14.7 H RDW Differential 51.0 H Plt Count 187 MPV 10.8 Immature Gran % (Auto) 1.100 H Neut % (Auto) 87.7 H Lymph % (Auto) 3.5 L [place] % (Auto) 7.6 Eos % (Auto) 0.0 Baso % (Auto) 0.1 Absolute Neuts (auto) 9.1 H Absolute Lymphs (auto) 0.36 L Total Counted Not Reportable Differential Comment SCANNED Diff Path Review ESR PT 37.7 H INR 3.8 H* Sodium Potassium Chloride Carbon Dioxide Anion Gap BUN Creatinine Estim Creat Clear Calc Est GFR (MDRD) Af Amer Est GFR (MDRD) Non-Af BUN/Creatinine Ratio Glucose Calcium Magnesium 2.8 H Total Creatine Kinase C-React Prot Ext Range 01/01/18 01/02/18 01/02/18 20:17 05:34 05:34 WBC 10.2 RBC 3.29 L Hgb 9.8 L Hct 31.8 L MCV 96.7 MCH 29.8 MCHC 30.8 L RDW 14.5 RDW Differential 48.4 H Plt Count 172 MPV 10.8 Immature Gran % (Auto) 2.100 H Neut % (Auto) 78.7 H Lymph % (Auto) 8.6 L [place] % (Auto) 9.7 Eos % (Auto) 0.6 Baso % (Auto) 0.3 Absolute Neuts (auto) 8.0 H Absolute Lymphs (auto) 0.88 Total Counted Not Reportable Differential Comment Diff Path Review Reviewed ESR PT 38.1 H INR 3.8 H* Sodium 139 Potassium 4.5 Chloride 98 Carbon Dioxide 37.0 H Anion Gap 4 L BUN 77 H Creatinine 1.72 H Estim Creat Clear Calc 28.90 Est GFR (MDRD) Af Amer 38 L Est GFR (MDRD) Non-Af 31 L BUN/Creatinine Ratio 44.8 H Glucose 290 H Calcium 8.8 Magnesium Total Creatine Kinase C-React Prot Ext Range 01/02/18 01/02/18 01/02/18 05:34 05:34 05:34 WBC RBC Hgb Hct MCV MCH MCHC RDW RDW Differential Plt Count MPV Immature Gran % (Auto) Neut % (Auto) Lymph % (Auto) [place] % (Auto) Eos % (Auto) Baso % (Auto) Absolute Neuts (auto) Absolute Lymphs (auto) Total Counted Differential Comment Diff Path Review ESR 39 H PT INR Sodium 144 Potassium 3.9 Chloride 99 Carbon Dioxide 35.0 H Anion Gap 10 BUN 77 H Creatinine 1.58 H Estim Creat Clear Calc 31.46 Est GFR (MDRD) Af Amer 42 L Est GFR (MDRD) Non-Af 34 L BUN/Creatinine Ratio 48.7 H Glucose 121 H Calcium 8.9 Magnesium Total Creatine Kinase 159 C-React Prot Ext Range 01/02/18 05:34 WBC RBC Hgb Hct MCV MCH MCHC RDW RDW Differential Plt Count MPV Immature Gran % (Auto) Neut % (Auto) Lymph % (Auto) [place] % (Auto) Eos % (Auto) Baso % (Auto) Absolute Neuts (auto) Absolute Lymphs (auto) Total Counted Differential Comment Diff Path Review ESR PT INR Sodium Potassium Chloride Carbon Dioxide Anion Gap BUN Creatinine Estim Creat Clear Calc Est GFR (MDRD) Af Amer Est GFR (MDRD) Non-Af BUN/Creatinine Ratio Glucose Calcium Magnesium Total Creatine Kinase C-React Prot Ext Range 26.20 H POC Glucose 01/02/18 01/02/18 01/01/18 11:37 07:44 22:05 POC Glucose 160 H 128 H 227 H Medical Necessity - Tobacco Use Smoking Status: Never smoker Tobacco Use: Non-smoker Assessment/Plan All Active Problems (Last Reviewed 11/20/17 @ 13:02 by Stefany Carrion) Hip pain (Acute) Debility (Acute) Atrial fib/flutter, transient (Resolved) Atrial fibrillation with rapid ventricular response (Resolved) Bilateral lower leg cellulitis (Resolved) Cellulitis of leg (Resolved) Chest pain (Resolved) Skin tear of left upper extremity (Resolved) Venous stasis ulcer (Resolved) Venous ulcer of leg (Resolved) Cellulitis of leg without foot, left (Ruled-out) 1. Intractable right hip pain - imaging (CT LE, Femur XR) with arthritis, degen changes, no acute fractures. Difficulty ambulating. Continue prn pain control. Defer IV therapy at this time. PO only. Continue PT OT and plan for SNF. Dr. Samaniego met with patient this AM. -CPK negative -ESR and CRP somewhat elevated. -recent vit D level low, start Vit D PO. 2. CAD, CHF, ischemic cardiomyopathy, HTN - continue home meds. Pt of Dr. See. PM/ICD in place. 3. PAfib - appears to be in SR and rate controlled, continue amiodarone, coreg, warfarin (hold). 4. Lymphedema - daily fallon wraps 5. CKD IV - prior dialysis now off. Follows [place] [facility]. NO NSAIDS. 6. T2DM - continue insulin regimen with SSI 7. Hx s/p TAVR 8. Hypothyroid - synthroid 9. Anemia of chronic dz - stable. normocytic. Check iron panel DVT ppx: warfarin - hold for high INR. DC planning: SNF, PTOT This patient was seen by Cristian Dotson PA-C under the supervision of Doctor Chan. <Walter Giles F - Last Filed: 01/02/18 15:31> - Physical Exam Vital Signs Temp Pulse Resp BP Pulse Ox 97.8 F 62 16 116/60 100 01/02/18 12:25 01/02/18 12:25 01/02/18 12:25 01/02/18 12:25 01/02/18 12:25 Oxygen Flow Rate (L/min) 2 Oxygen Delivery Method Nasal Cannula Weight: 207 lb 3.752 oz Body Mass Index (BMI) 33.4 Intake and Output for Last 24 Hours 12/31/17 01/01/18 01/02/18 23:59 23:59 23:59 Intake Total 200 / 200 Output Total 1500 / 1500 Balance -1300 / -1300 Laboratory Tests Past 24 Hrs 01/01/18 01/01/18 01/01/18 20:17 20:17 20:17 WBC 10.3 RBC 3.44 L Hgb 9.9 L Hct 33.0 L MCV 95.9 MCH 28.8 MCHC 30.0 L RDW 14.7 H RDW Differential 51.0 H Plt Count 187 MPV 10.8 Immature Gran % (Auto) 1.100 H Neut % (Auto) 87.7 H Lymph % (Auto) 3.5 L [place] % (Auto) 7.6 Eos % (Auto) 0.0 Baso % (Auto) 0.1 Absolute Neuts (auto) 9.1 H Absolute Lymphs (auto) 0.36 L Total Counted Not Reportable Differential Comment SCANNED Diff Path Review ESR PT 37.7 H INR 3.8 H* Sodium Potassium Chloride Carbon Dioxide Anion Gap BUN Creatinine Estim Creat Clear Calc Est GFR (MDRD) Af Amer Est GFR (MDRD) Non-Af BUN/Creatinine Ratio Glucose Calcium Magnesium 2.8 H Total Creatine Kinase C-React Prot Ext Range 01/01/18 01/02/18 01/02/18 20:17 05:34 05:34 WBC 10.2 RBC 3.29 L Hgb 9.8 L Hct 31.8 L MCV 96.7 MCH 29.8 MCHC 30.8 L RDW 14.5 RDW Differential 48.4 H Plt Count 172 MPV 10.8 Immature Gran % (Auto) 2.100 H Neut % (Auto) 78.7 H Lymph % (Auto) 8.6 L [place] % (Auto) 9.7 Eos % (Auto) 0.6 Baso % (Auto) 0.3 Absolute Neuts (auto) 8.0 H Absolute Lymphs (auto) 0.88 Total Counted Not Reportable Differential Comment Diff Path Review Reviewed ESR PT 38.1 H INR 3.8 H* Sodium 139 Potassium 4.5 Chloride 98 Carbon Dioxide 37.0 H Anion Gap 4 L BUN 77 H Creatinine 1.72 H Estim Creat Clear Calc 28.90 Est GFR (MDRD) Af Amer 38 L Est GFR (MDRD) Non-Af 31 L BUN/Creatinine Ratio 44.8 H Glucose 290 H Calcium 8.8 Magnesium Total Creatine Kinase C-React Prot Ext Range 01/02/18 01/02/18 01/02/18 05:34 05:34 05:34 WBC RBC Hgb Hct MCV MCH MCHC RDW RDW Differential Plt Count MPV Immature Gran % (Auto) Neut % (Auto) Lymph % (Auto) [place] % (Auto) Eos % (Auto) Baso % (Auto) Absolute Neuts (auto) Absolute Lymphs (auto) Total Counted Differential Comment Diff Path Review ESR 39 H PT INR Sodium 144 Potassium 3.9 Chloride 99 Carbon Dioxide 35.0 H Anion Gap 10 BUN 77 H Creatinine 1.58 H Estim Creat Clear Calc 31.46 Est GFR (MDRD) Af Amer 42 L Est GFR (MDRD) Non-Af 34 L BUN/Creatinine Ratio 48.7 H Glucose 121 H Calcium 8.9 Magnesium Total Creatine Kinase 159 C-React Prot Ext Range 01/02/18 05:34 WBC RBC Hgb Hct MCV MCH MCHC RDW RDW Differential Plt Count MPV Immature Gran % (Auto) Neut % (Auto) Lymph % (Auto) [place] % (Auto) Eos % (Auto) Baso % (Auto) Absolute Neuts (auto) Absolute Lymphs (auto) Total Counted Differential Comment Diff Path Review ESR PT INR Sodium Potassium Chloride Carbon Dioxide Anion Gap BUN Creatinine Estim Creat Clear Calc Est GFR (MDRD) Af Amer Est GFR (MDRD) Non-Af BUN/Creatinine Ratio Glucose Calcium Magnesium Total Creatine Kinase C-React Prot Ext Range 26.20 H POC Glucose 01/02/18 01/02/18 01/01/18 11:37 07:44 22:05 POC Glucose 160 H 128 H 227 H Assessment/Plan Addendum: Dr. Giles I personally examined the patient and reviewed the chart. I agree with the above. Unsure of the etiology of her pain, ESR and CRP are elevated but her CPK is normal. He pain is mostly in the belly of her quadricep. PT/OT and plan for SNF. Appreciate pain management assistance. Code Visit OBSV E&M: 67514 Subsequent observation care L2
[2018-01-02 17:34] LABS: Ferritin 69 ng/mL (8-252); Iron 56 ug/dL (50-170); Iron Binding Capacity,Total 360 ug/dL (250-450); PERCENT IRON SATURATION 15.6 % (15.0-55.0)
[2018-01-02 18:06] VITALS: BP 120/55; PULSE 60; RESP 16; TEMP 36.4; O2SAT 100
[2018-01-02 18:06] LABS: Bedside Glucose 49 mg/dL (70-110)
[2018-01-02 18:06] LABS: Bedside Glucose 95 mg/dL (70-110)
[2018-01-02 19:38] VITALS: BP 125/60; PULSE 60; RESP 18; TEMP 36.8; O2SAT 100
[2018-01-02] MEDS: Atorvastatin Calcium 40 MG Tablet PO (21:35)
[2018-01-02 21:46] LABS: Bedside Glucose 109 mg/dL (70-110)
[2018-01-03 02:38] VITALS: BP 119/54; PULSE 63; RESP 18; TEMP 36.9; O2SAT 98
[2018-01-03] MEDS: oxyCODONE 5 MG Tablet PO ×3 (04:16→14:27)
[2018-01-03] MEDS: Levothyroxine 75 MCG Tablet PO (05:30)
[2018-01-03 06:19] LABS: Prothrombin Time (Protime)PT. 35.2 SECONDS (11.7-14.9)
[2018-01-03 06:22] LABS: Anion Gap 8 (5-15); BUN 77 mg/dL (7-18); BUN/Creat Ratio 44.3 RATIO (10-20); Calcium,Total 8.7 mg/dL (8.5-10.1); Chloride 98 mmol/L (98-107); Creatinine, Serum 1.74 mg/dL (0.55-1.02); EST Glomerular Filtration Rate 31 mL/min (>60); Est Glom Filt Rate - Afr Amer 37 mL/min (>60); Estimated Creatinine Clearance 28.57 ml/min; Glucose 103 mg/dL (74-106); Potassium 3.9 mmol/L (3.5-5.1); Sodium Level 140 mmol/L (136-145)
[2018-01-03 06:33] LABS: International Normalized Ratio 3.5
[2018-01-03 06:50] LABS: Absolute Neutrophil Count 7.2 X10^3/uL (2.0-7.7); Basophil# 0.02 X10^3/uL; Basophil% 0.2 % (0-1); Eosinophil# 0.11 X10^3/uL; Eosinophils% 1.2 % (0-5); Hematocrit 31.4 % (37-47); Hemoglobin 9.5 g/dl (12.0-15.0); Lymphocyte % 7.5 % (19-41); Mean Corp Hgb Conc 30.3 g/gl (32-36); Mean Corpuscular Hgb 29.2 pg (27.0-32.0); Mean Corpuscular Volume 96.6 fL (81-99); Mean Platelet Vol. 10.8 fl (6.2-12.0); Monocyte# 1.16 X10^3/uL; Monocyte% 12.4 % (0-10); Neutrophil # 7.15 X10^3/uL (2.7-7.7); Neutrophil % 76.5 % (47-70); Platelet Count 154 K/mm3 (150-450); RBC Distribution Width CV 14.5 % (11.6-14.6); RBC Distribution Width SD 48.6 fl (35.1-43.9); Red Blood Count 3.25 M/mm3 (4.2-5.4); White Blood Count 9.4 K/mm3 (4.4-11.0)
[2018-01-03 06:54] LABS: POSITIVE COUNT YES; POSITIVE DIFFERENTIAL NO; POSITIVE MORPHOLOGY YES
[2018-01-03 07:56] LABS: Bedside Glucose 102 mg/dL (70-110)
--- NOTE | 2018-01-03 09:00 | CASEMGMT ---
Social Work Note SW faxed updated clinicals to Aggie at [facility]. 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
[2018-01-03 09:50] VITALS: BP 115/40; PULSE 85; RESP 16; TEMP 36.8; O2SAT 98
[2018-01-03] MEDS: Aspirin 81 MG TAB.CHEW PO (10:01)
[2018-01-03] MEDS: Furosemide 40 MG Tablet PO ×2 (10:02→17:16)
[2018-01-03] MEDS: Spironolactone 25 MG Tablet PO (10:02)
[2018-01-03] MEDS: Carvedilol 6.25 MG Tablet PO (10:02)
[2018-01-03] MEDS: metOLazone 5 MG Tablet PO (10:03)
[2018-01-03] MEDS: Docusate Sodium 100 MG Capsule PO (10:03)
[2018-01-03] MEDS: Polyethylene Glycol 3350 17 GM PACKET PO (10:03)
[2018-01-03] MEDS: Amiodarone 200 MG Tablet PO (10:03)
[2018-01-03] MEDS: Insulin Lispro 100 UNIT/ML INSULN.PEN SC ×3 (10:04→17:16)
[2018-01-03] MEDS: Lidocaine 5% Patch 2 PATCH TOPICAL (10:05)
[2018-01-03] MEDS: Insulin Lispro 100 UNIT/ML INSULN.PEN 8 UNIT SC ×2 (11:54→17:16)
[2018-01-03 12:01] LABS: Bedside Glucose 185 mg/dL (70-110)
--- NOTE | 2018-01-03 12:33 | PCM.PROGNOTE ---
Patient Problems: Active and Suspected Problems (Last Reviewed 11/20/17 @ 13:02 by Stefany Carrion) Hip pain (Acute) Debility (Acute) Subjective: Patient is resting in chair at bedside complaining the 8-9 out of 10 hip pain worse over the anterior portion of her thigh, right. Continues to have right hip pain and right lumbar spine pain. She states that the lidocaine patches have helped a little bit but she still feels very unsafe on her feet and that she might fall. She is requesting penitentiary placement still. She is concerned that her rheumatoid arthritis is flaring up and states that methotrexate injections have worked for her in the past, however she did recently complete a outpatient course of prednisone which did not help her pain at all. She has no other joint pain, she states when her rheumatoid usually flares up it usually is throughout her whole body-arms, elbows, fingers, knees, feet. She currently has no other pain aside from her right hip, thigh, lumbar spine that she came in with. - Physical Exam General: Alert, Oriented x3, Cooperative HEENT: Atraumatic, PERRLA, EOMI, Normocephalic Neck: Supple, No JVD, Negative Carotid Bruits Lungs: Clear to auscultation, Normal air movement Cardiovascular: Regular rate, No murmurs Abdomen: Bowel Sounds Present, Soft, Non Tender Extremities: No edema, Capillary Refill Less than 3 Seconds Skin: No rashes, No breakdown Musculoskeletal: - - Severely tender over the right anterior thigh Neurological: Cranial nerves II-XII grossly intact Psych/Mental Status: Normal Affect, Appropriate, Alert and oriented to time, place, person, mood and affect Vital Signs Temp Pulse Resp BP Pulse Ox 98.2 F 85 16 115/40 L 98 01/03/18 09:50 01/03/18 09:50 01/03/18 09:50 01/03/18 09:50 01/03/18 09:50 Oxygen Flow Rate (L/min) 2 Oxygen Delivery Method Nasal Cannula Weight: 207 lb 3.752 oz Body Mass Index (BMI) 33.4 Intake and Output for Last 24 Hours 01/01/18 01/02/18 01/03/18 23:59 23:59 23:59 Intake Total 300 / 300 Output Total 2550 / 2550 400 / 400 Balance -2250 / -2250 -400 / -400 Laboratory Tests Past 24 Hrs 01/02/18 01/02/18 01/03/18 05:34 05:34 05:52 WBC RBC Hgb Hct MCV MCH MCHC RDW RDW Differential Plt Count MPV Immature Gran % (Auto) Neut % (Auto) Lymph % (Auto) [place] % (Auto) Eos % (Auto) Baso % (Auto) Absolute Neuts (auto) Absolute Lymphs (auto) Total Counted Diff Path Review Reviewed PT 35.2 H INR 3.5 H* Sodium Potassium Chloride Carbon Dioxide Anion Gap BUN Creatinine Estim Creat Clear Calc Est GFR (MDRD) Af Amer Est GFR (MDRD) Non-Af BUN/Creatinine Ratio Glucose Calcium Iron 56 TIBC 360 Iron Saturation 15.6 Ferritin 69 01/03/18 01/03/18 05:52 05:52 WBC 9.4 RBC 3.25 L Hgb 9.5 L Hct 31.4 L MCV 96.6 MCH 29.2 MCHC 30.3 L RDW 14.5 RDW Differential 48.6 H Plt Count 154 MPV 10.8 Immature Gran % (Auto) 2.200 H Neut % (Auto) 76.5 H Lymph % (Auto) 7.5 L [place] % (Auto) 12.4 H Eos % (Auto) 1.2 Baso % (Auto) 0.2 Absolute Neuts (auto) 7.2 Absolute Lymphs (auto) 0.70 L Total Counted Not Reportable Diff Path Review May foll PT INR Sodium 140 Potassium 3.9 Chloride 98 Carbon Dioxide 34.0 H Anion Gap 8 BUN 77 H Creatinine 1.74 H Estim Creat Clear Calc 28.57 Est GFR (MDRD) Af Amer 37 L Est GFR (MDRD) Non-Af 31 L BUN/Creatinine Ratio 44.3 H Glucose 103 Calcium 8.7 Iron TIBC Iron Saturation Ferritin POC Glucose 01/03/18 01/03/18 01/02/18 11:50 07:47 21:39 POC Glucose 185 H 102 109 01/02/18 01/02/18 17:42 17:15 POC Glucose 95 49 L Medical Necessity - Tobacco Use Smoking Status: Never smoker Tobacco Use: Non-smoker Assessment/Plan All Active Problems (Last Reviewed 11/20/17 @ 13:02 by Stefany Carrion) Hip pain (Acute) Debility (Acute) Atrial fib/flutter, transient (Resolved) Atrial fibrillation with rapid ventricular response (Resolved) Bilateral lower leg cellulitis (Resolved) Cellulitis of leg (Resolved) Chest pain (Resolved) Skin tear of left upper extremity (Resolved) Venous stasis ulcer (Resolved) Venous ulcer of leg (Resolved) Cellulitis of leg without foot, left (Ruled-out) 1. Intractable right hip pain - imaging (CT LE, Femur XR) with arthritis, degen changes, no acute fractures. Difficulty ambulating. Continue prn pain control. Defer IV therapy at this time. PO only. Continue PT OT and plan for SNF. Dr. Samaniego met with patient this AM. -Today we added Voltaren patches. Would avoid oral NSAID therapy with warfarin use, stage III kidney disease. -CPK negative -ESR and CRP somewhat elevated. -recent vit D level low, start Vit D PO. 2. CAD, CHF, ischemic cardiomyopathy, HTN - continue home meds. Pt of Dr. See. PM/ICD in place. 3. PAfib - appears to be in SR and rate controlled, continue amiodarone, coreg, warfarin (hold). 4. Lymphedema - daily fallon wraps 5. CKD IV - prior dialysis now off. Follows [facility]. NO NSAIDS. 6. T2DM - continue insulin regimen with SSI 7. Hx s/p TAVR 8. Hypothyroid - synthroid 9. Anemia of chronic dz - stable. normocytic. Check iron panel DVT ppx: warfarin - hold for high INR. DC planning: SNF, PTOT. She has been approved however she continues to have severe pain. This patient was seen by Cristian Dotson PA-C under the supervision of Doctor Kendall.
--- NOTE | 2018-01-03 12:58 | CASEMGMT ---
RN TANA called and left message with [facility] services to update on patient discharge and resumption of aide services. Voice message left with return contact information.
[2018-01-03] MEDS: Acetaminophen 325 MG Tablet 650 MG PO (14:27)
--- NOTE | 2018-01-03 15:18 | TREXTCAR_ITS ---
- Diet 01/01/18 18:10 Diet: Calorie Controlled How many daily calories?: 1800 calorie - Routine Orders/Code Status Suppository Type: Dulcolax 10mg Suppository Frequency: Daily PRN O2 Frequency: Continuous Routine Lab Work: CBC - 1 week, BMP - 1 week, INR - 2 days Code Status: [facility] - Wound(s) mid chest Wound Type: scratches - Therapies Physical Therapy: Eval and Treat Occupational Therapy: Eval and Treat - Problem/Diagnosis (1) Hip pain Status: Acute Current Visit: Yes (2) Debility Status: Acute Current Visit: Yes (3) CHF exacerbation Status: Chronic Current Visit: No (4) Atrial fibrillation Status: Chronic Current Visit: No (5) Chronic renal insufficiency Status: Chronic Current Visit: No (6) CAD (coronary artery disease) Status: Chronic Current Visit: No (7) ICD (implantable cardioverter-defibrillator) in place Status: Chronic Current Visit: No (8) Aortic stenosis Status: Chronic Comment: s/p TAVR Current Visit: No (9) Paroxysmal atrial tachycardia Status: Chronic Current Visit: No (10) ICD (implantable cardioverter-defibrillator) in place Status: Chronic Current Visit: No (11) Anemia of chronic disease Status: Chronic Current Visit: No (12) Cardiomyopathy, noncoronary Status: Chronic Current Visit: No (13) HTN (hypertension) Status: Chronic Current Visit: No (14) S/p TAVR (transcatheter aortic valve replacement), bioprosthetic Status: Chronic Comment: 26 mm Bond Sapein Bioprosthetic Aortic Valve Current Visit: No (15) HLD (hyperlipidemia) Status: Chronic Current Visit: No (16) Chronic atrial fibrillation Status: Chronic Current Visit: No - Allergies/Procedures Done in Hospital Allergies/Adverse Reactions: Allergies amoxicillin trihydrate [From Augmentin] Allergy (Verified 11/20/17 13:00) Rash potassium clavulanate [From Augmentin] Allergy (Verified 11/20/17 13:00) Rash Sulfa (Sulfonamide Antibiotics) Allergy (Verified 11/20/17 13:00) Hives vancomycin Allergy (Verified 11/20/17 13:00) Other ROSLYN SYNDROME Procedures: None - Type of Care/Length of Stay Estimated LOS: Convalescent Care Less Than 30 days Type of Care Needed: Skilled Rehab Potential: Fair Prognosis: Fair - Additional Orders/Day of Discharge Additional Orders: Patient is not to resume Coumadin until INR returns to therapeutic range. Day of Discharge: 01/03/18 - Dietary and Speech Recommendations Dietitian Recommendations/Changes: Recommend liberalized carb-controlled diet with no added salt until PO at meals improves. Would best benefit from cardiac , 1800 calorie controlled diet when adequate PO at meals is established. - Follow Up Care Primary Care Physician: Fiona Cardenas MD [Primary Care Provider] - Please follow up with your Primary Care Physician in: 1-2 weeks Please Follow Up With: Mary Samaniego MD When: 2 weeks
--- NOTE | 2018-01-03 15:18 | PCM.DC.SUM ---
Discharge Date and Diagnosis - Problem List Patient Problems: Active and Suspected Problems (Last Reviewed 11/20/17 @ 13:02 by Stefany Carrion) Hip pain (Acute) Debility (Acute) Date of Admission: 01/01/18 Date of Discharge: 01/03/18 - Primary Discharge Diagnosis Active and Suspected Problems (Last Reviewed 11/20/17 @ 13:02 by Stefany Carrion) Hip pain (Acute) secondary to moderate osteoarthrosis of the right hip Debility (Acute) with difficulty ambulating Chronic CHF Chronic A. fib Coronary artery disease Prior ICD Aortic stenosis status post Tavr Anemia of chronic disease CKD stage IV Hyperlipidemia Thyroidism - Secondary Discharge Diagnosis Chronic Problems (Last Reviewed 11/20/17 @ 13:02 by Stefany Carrion) CHF exacerbation (Chronic) Atrial fibrillation (Chronic) Chronic renal insufficiency (Chronic) CAD (coronary artery disease) (Chronic) ICD (implantable cardioverter-defibrillator) in place (Chronic) Aortic stenosis (Chronic) s/p TAVR Paroxysmal atrial tachycardia (Chronic) Rheumatic tricuspid insufficiency (Chronic) ICD (implantable cardioverter-defibrillator) in place (Chronic) Ventricular tachycardia (paroxysmal) (Chronic) S/P AICD Anemia of chronic disease (Chronic) Cardiomyopathy, noncoronary (Chronic) HTN (hypertension) (Chronic) S/p TAVR (transcatheter aortic valve replacement), bioprosthetic (Chronic) 26 mm Bond Sapein Bioprosthetic Aortic Valve HLD (hyperlipidemia) (Chronic) Mitral valve stenosis and regurgitation (Chronic) Mild to moderate mitral valve stenosis with moderate mitral valve insufficiency Chronic atrial fibrillation (Chronic) Hospital Course and Treatment Imaging Results: CT/Extremity Lower without Contra IMPRESSION: Moderate osteoarthrosis of the right hip. RAD/Femur Min 2 Views IMPRESSION: Diffuse osteopenia, no demonstrated fracture or suspicious osseous lesion. Consults: Basali - pain management Operations: None Procedures: None Summary of Care Provided: Physical exam on day of discharge: See daily progress note. Hospital course: The patient is a 67 year old F with an extensive past medical history as above who presented to the emergency room with intractable right hip, right lumbar spine, and right thigh pain. She denied any traumatic injury the pain it has began suddenly and progressively worsened. She had seen her PCP and the emergency room as an outpatient and trialed [place] and steroids without any relief. She represented to the emergency room as she continued to have worsening of her pain and had more difficulty ambulating. She did not feel safe at home and was concerned that she was going to fall. 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 She desires correction placement. She was admitted to the medical surgical floor and started on supportive care including oxycodone, Tylenol, Lidoderm, with the consult pain management. Pain management recommended and injection however she was not interested in doing this because she was concerned about holding her warfarin. She was seen by PT and OT and recommendations were made for correction therapy. The patient was agreeable and she was discharged there in stable condition. She will need follow-up with pain management, her PCP, and she would benefit from an outpatient orthopedic consult. She will need her INR followed closely as currently her Coumadin is supratherapeutic and we should allow this to drift down and not restart Coumadin until it is therapeutic. This patient was seen by Cristian Dotson PA-C under the supervision of Doctor Enoch. [] Discharge Diet: Low fat/ Low Cholesterol, 2000 mg Sodium Diet Discharge Activity: Return to Normal Activity Home Medications: Medications to take at Discharge Insulin Glargine,Hum.rec.anlog [Lantus] 42 unit SQ BREAKFAST 12/17/16 Levothyroxine [Synthroid] 75 mcg PO 0600 12/17/16 Polyethylene Glycol 3350 [Miralax] 17 gm PO DAILY 12/18/16 Furosemide 40 mg PO BID 06/20/17 Insulin Aspart [Novolog Flexpen] 5 units SC BREAKFAST 06/20/17 Docusate Sodium [Colace] 100 mg PO DAILY 07/22/17 atorvastatin 40 mg tablet 40 mg PO QHS #90 tab 09/11/17 Insulin Aspart [Novolog Flexpen] 8 unit SQ BID 09/17/17 spironolactone 25 mg tablet 25 mg PO DAILY #90 tab 10/13/17 carvedilol 6.25 mg tablet 6.25 mg PO BID #180 tab 12/26/17 Amiodarone HCl [Cordarone] 200 mg PO DAILY 01/01/18 Aspirin E.C. [Ecotrin] 81 mg PO DAILY 01/01/18 Metolazone [Zaroxolyn] 5 mg PO MOWEFR 01/01/18 Warfarin Sodium [Coumadin] 1 mg PO SUFRSA 01/01/18 Warfarin [Coumadin] 2 mg PO DAILY 01/01/18 Acetaminophen [Tylenol Tablet] 650 mg PO Q6H PRN PRN tablet 01/03/18 Cholecalciferol (VIT D3) [Vitamin D3] 2,000 unit PO DAILY tablet 01/03/18 Lidocaine [Lidoderm Patch] 2 patch TOPICAL DAILY #0 patch 01/03/18 Ondansetron [Zofran] 8 mg PO Q8H PRN PRN tablet 01/03/18 Oxycodone [Oxyir] 5 - 10 mg PO Q4H PRN PRN 2 Days #24 tablet 01/03/18 Following Prescrptions Were Given to Patient: Oxycodone [Oxyir] 5 - 10 mg PO Q4H PRN PRN 2 Days #24 tablet PRN Reason: Severe Pain (-01/31) Primary Care Physician: Fiona Cardenas MD [Primary Care Provider] - Please follow up with your Primary Care Physician in: 1-2 weeks Please Follow Up With: Mary Samaniego MD When: 2 weeks Disposition: Home Minutes spent on discharge:: 35 Patient Condition:: Stable Medical Necessity - Tobacco Use Smoking Status: Never smoker Tobacco Use: Non-smoker Meaningful Use Info Meaningful Use Diagnoses (Choose all that apply): None applicable
--- NOTE | 2018-01-03 15:24 | DS.PCM_ITS ---
Discharge Date and Diagnosis - Problem List Patient Problems: Active and Suspected Problems (Last Reviewed 11/20/17 @ 13:02 by Stefany Carrion) Hip pain (Acute) Debility (Acute) Date of Admission: 01/01/18 Date of Discharge: 01/03/18 - Primary Discharge Diagnosis Active and Suspected Problems (Last Reviewed 11/20/17 @ 13:02 by Stefany Carrion) Hip pain (Acute) secondary to moderate osteoarthrosis of the right hip Debility (Acute) with difficulty ambulating Chronic CHF Chronic A. fib Coronary artery disease Prior ICD Aortic stenosis status post Tavr Anemia of chronic disease CKD stage IV Hyperlipidemia Thyroidism - Secondary Discharge Diagnosis Chronic Problems (Last Reviewed 11/20/17 @ 13:02 by Stefany Carrion) CHF exacerbation (Chronic) Atrial fibrillation (Chronic) Chronic renal insufficiency (Chronic) CAD (coronary artery disease) (Chronic) ICD (implantable cardioverter-defibrillator) in place (Chronic) Aortic stenosis (Chronic) s/p TAVR Paroxysmal atrial tachycardia (Chronic) Rheumatic tricuspid insufficiency (Chronic) ICD (implantable cardioverter-defibrillator) in place (Chronic) Ventricular tachycardia (paroxysmal) (Chronic) S/P AICD Anemia of chronic disease (Chronic) Cardiomyopathy, noncoronary (Chronic) HTN (hypertension) (Chronic) S/p TAVR (transcatheter aortic valve replacement), bioprosthetic (Chronic) 26 mm Bond Sapein Bioprosthetic Aortic Valve HLD (hyperlipidemia) (Chronic) Mitral valve stenosis and regurgitation (Chronic) Mild to moderate mitral valve stenosis with moderate mitral valve insufficiency Chronic atrial fibrillation (Chronic) Hospital Course and Treatment Imaging Results: CT/Extremity Lower without Contra IMPRESSION: Moderate osteoarthrosis of the right hip. RAD/Femur Min 2 Views IMPRESSION: Diffuse osteopenia, no demonstrated fracture or suspicious osseous lesion. Consults: Basali - pain management Operations: None Procedures: None Summary of Care Provided: Physical exam on day of discharge: See daily progress note. Hospital course: The patient is a 67 year old F with an extensive past medical history as above who presented to the emergency room with intractable right hip, right lumbar spine, and right thigh pain. She denied any traumatic injury the pain it has began suddenly and progressively worsened. She had seen her PCP and the emergency room as an outpatient and trialed [place] and steroids without any relief. She represented to the emergency room as she continued to have worsening of her pain and had more difficulty ambulating. She did not feel safe at home and was concerned that she was going to fall. 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 She desires snf placement. She was admitted to the medical surgical floor and started on supportive care including oxycodone, Tylenol, Lidoderm, with the consult pain management. Pain management recommended and injection however she was not interested in doing this because she was concerned about holding her warfarin. She was seen by PT and OT and recommendations were made for snf therapy. The patient was agreeable and she was discharged there in stable condition. She will need follow-up with pain management, her PCP, and she would benefit from an outpatient orthopedic consult. She will need her INR followed closely as currently her Coumadin is supratherapeutic and we should allow this to drift down and not restart Coumadin until it is therapeutic. This patient was seen by Cristian Dotson PA-C under the supervision of Doctor Enoch. [] Discharge Diet: Low fat/ Low Cholesterol, 2000 mg Sodium Diet Discharge Activity: Return to Normal Activity Home Medications: Medications to take at Discharge Insulin Glargine,Hum.rec.anlog [Lantus] 42 unit SQ BREAKFAST 12/17/16 Levothyroxine [Synthroid] 75 mcg PO 0600 12/17/16 Polyethylene Glycol 3350 [Miralax] 17 gm PO DAILY 12/18/16 Furosemide 40 mg PO BID 06/20/17 Insulin Aspart [Novolog Flexpen] 5 units SC BREAKFAST 06/20/17 Docusate Sodium [Colace] 100 mg PO DAILY 07/22/17 atorvastatin 40 mg tablet 40 mg PO QHS #90 tab 09/11/17 Insulin Aspart [Novolog Flexpen] 8 unit SQ BID 09/17/17 spironolactone 25 mg tablet 25 mg PO DAILY #90 tab 10/13/17 carvedilol 6.25 mg tablet 6.25 mg PO BID #180 tab 12/26/17 Amiodarone HCl [Cordarone] 200 mg PO DAILY 01/01/18 Aspirin E.C. [Ecotrin] 81 mg PO DAILY 01/01/18 Metolazone [Zaroxolyn] 5 mg PO MOWEFR 01/01/18 Warfarin Sodium [Coumadin] 1 mg PO SUFRSA 01/01/18 Warfarin [Coumadin] 2 mg PO DAILY 01/01/18 Acetaminophen [Tylenol Tablet] 650 mg PO Q6H PRN PRN tablet 01/03/18 Cholecalciferol (VIT D3) [Vitamin D3] 2,000 unit PO DAILY tablet 01/03/18 Lidocaine [Lidoderm Patch] 2 patch TOPICAL DAILY #0 patch 01/03/18 Ondansetron [Zofran] 8 mg PO Q8H PRN PRN tablet 01/03/18 Oxycodone [Oxyir] 5 - 10 mg PO Q4H PRN PRN 2 Days #24 tablet 01/03/18 Following Prescrptions Were Given to Patient: Oxycodone [Oxyir] 5 - 10 mg PO Q4H PRN PRN 2 Days #24 tablet PRN Reason: Severe Pain (-01/31) Primary Care Physician: Fiona Cardenas MD [Primary Care Provider] - Please follow up with your Primary Care Physician in: 1-2 weeks Please Follow Up With: Mary Samaniego MD When: 2 weeks Disposition: Home Minutes spent on discharge:: 35 Patient Condition:: Stable Medical Necessity - Tobacco Use Smoking Status: Never smoker Tobacco Use: Non-smoker Meaningful Use Info Meaningful Use Diagnoses (Choose all that apply): None applicable
[2018-01-03 15:55] VITALS: BP 118/59; PULSE 65; RESP 20; TEMP 36.7; O2SAT 98
--- NOTE | 2018-01-03 16:39 | NURSING ---
spoke with Mony weekend receptionist at [facility] in [place]- she is unable to get a hold of the nurse receiving this patient for nurse to nurse report to be given, [facility] floor phone number provided to Mony for the receiving nurse to call [facility] to obtain report since she is unable to locate the nurse.
--- NOTE | 2018-01-03 17:10 | CASEMGMT ---
Social Work Note Pt is being discharge to [facility] today. SW updated pt of this. Pt states that she would like transportation set up via cot. Physician needs to fill out script for Oxycodone as per pt's medication list she will be discharged on Oxycodone. SW updated secretary to the vice presidentmauricio Law of this. SW informed secretary to the vice president Ani that once script for Oxycodone is completed, discharge paperwork will need to be faxed including transfer to extended care facility, signed medication list and script. SUSAN set up transportation through [facility] via cot for 5:30pm. Transportation from on SNF folder and copy on pt's chart. SUSAN updated RN Kassandra, secretary Law and pt of transportation time. Pt states understanding and states that she called her family to update them on discharge. SUSAN placed a call to Aggie at [facility] and updated her on transportation time and once script for Oxycodone is completed, discharge paperwork will be faxed. Aggie states understanding. SUSAN completed PAS/RR in HENS. Original in SNF folder and copy on pt's chart. Plan: Pt to discharge to [facility] tonight via cot through [facility] at 5:30pm. Tori Kidd MOBILE WEB APPLICATION DEVELOPER, DRAFTER ASSISTANT
[2018-01-03 17:25] LABS: Bedside Glucose 215 mg/dL (70-110)
[2018-01-04 14:18] LABS: Pathologist Review Reviewed
== END 2018-01-03 17:35 | disposition skilled nursing facility (03) ==
LOC: ED 18:12 → MS3 18:27
PROVIDERS: Family Medicine; Physician Assistant; Admitting Provider Family Medicine; Emergency Provider Emergency Medicine; Family Provider Internal Medicine; PCP Internal Medicine; Visit Provider Internal Medicine
DX: M16.11 Unilateral primary osteoarthritis, right hip (principal); I25.10 Atherosclerotic heart disease of native coronary artery without angina pectoris; I13.0 Hypertensive heart and chronic kidney disease with heart failure and stage 1 through stage 4 chronic kidney disease, or unspecified chronic kidney disease; E11.22 Type 2 diabetes mellitus with diabetic chronic kidney disease; N18.4 Chronic kidney disease, stage 4 (severe); I50.22 Chronic systolic (congestive) heart failure; Z95.810 Presence of automatic (implantable) cardiac defibrillator; Z79.899 Other long term (current) drug therapy; Z79.4 Long term (current) use of insulin; Z79.01 Long term (current) use of anticoagulants; Z79.82 Long term (current) use of aspirin; D63.8 Anemia in other chronic diseases classified elsewhere; E03.9 Hypothyroidism, unspecified; I89.0 Lymphedema, not elsewhere classified; I48.0 Paroxysmal atrial fibrillation; M06.9 Rheumatoid arthritis, unspecified; D68.32 Hemorrhagic disorder due to extrinsic circulating anticoagulants; T45.515A Adverse effect of anticoagulants, initial encounter; E78.5 Hyperlipidemia, unspecified; E66.9 Obesity, unspecified; Z68.33 Body mass index [BMI] 33.0-33.9, adult; Z71.3 Dietary counseling and surveillance; J96.11 Chronic respiratory failure with hypoxia; Z99.81 Dependence on supplemental oxygen
CPT/HCPCS: 36415; 73552; 73700; 80048; 82550; 82728; 82962; 83540; 83550; 83735; 85025; 85610; 85652; 86140; 96374; 97116; 97166; 97530; 97802; 99218; 99282; A4216; G0378

== ENCOUNTER → 2018-01-04 05:00 | Outpatient (REF) | payer MEDICARE, SELFPAY ==
[2018-01-04 08:02] LABS: International Normalized Ratio 2.7; Prothrombin Time (Protime)PT. 29.2 SECONDS (11.7-14.9)
== END ==
LOC: OLS.AVED 05:00
PROVIDERS: Visit Provider Family Medicine
DX: Z79.01 Long term (current) use of anticoagulants (principal)
CPT/HCPCS: 36415; 85610

== ENCOUNTER → 2018-01-08 05:00 | Outpatient (REF) | payer MEDICARE, SELFPAY ==
[2018-01-08 08:03] LABS: Hematocrit 30.4 % (37-47); Hemoglobin 9.4 g/dl (12.0-15.0); Mean Corp Hgb Conc 30.9 g/gl (32-36); Mean Corpuscular Volume 93.8 fL (81-99); Mean Platelet Vol. 10.8 fl (6.2-12.0); Platelet Count 183 K/mm3 (150-450); RBC Distribution Width CV 14.8 % (11.6-14.6); RBC Distribution Width SD 50.4 fl (35.1-43.9); Red Blood Count 3.24 M/mm3 (4.2-5.4); White Blood Count 11.7 K/mm3 (4.4-11.0)
[2018-01-08 08:04] LABS: Scan Indicated on CBC? Y/N NO
[2018-01-08 08:21] LABS: Anion Gap 8 (5-15); BUN 86 mg/dL (7-18); BUN/Creat Ratio 39.6 RATIO (10-20); Calcium,Total 8.7 mg/dL (8.5-10.1); Chloride 93 mmol/L (98-107); Creatinine, Serum 2.17 mg/dL (0.55-1.02); EST Glomerular Filtration Rate 24 mL/min (>60); Est Glom Filt Rate - Afr Amer 29 mL/min (>60); Glucose 133 mg/dL (74-106); Potassium 3.4 mmol/L (3.5-5.1); Sodium Level 136 mmol/L (136-145)
[2018-01-08 08:32] LABS: Prothrombin Time (Protime)PT. 22.9 SECONDS (11.7-14.9)
== END ==
LOC: OLS.AVED 05:00
PROVIDERS: Visit Provider Family Medicine
DX: E11.9 Type 2 diabetes mellitus without complications (principal); R60.9 Edema, unspecified; D64.9 Anemia, unspecified; N18.3 Chronic kidney disease, stage 3 (moderate)
CPT/HCPCS: 36415; 80048; 85027; 85610

== ENCOUNTER → 2018-01-10 07:35 | Outpatient (REF) | payer MEDICARE, SELFPAY ==
[2018-01-10 09:07] LABS: Anion Gap 12 (5-15); BUN 94 mg/dL (7-18); BUN/Creat Ratio 36.4 RATIO (10-20); Calcium,Total 8.8 mg/dL (8.5-10.1); Chloride 88 mmol/L (98-107); Creatinine, Serum 2.58 mg/dL (0.55-1.02); EST Glomerular Filtration Rate 20 mL/min (>60); Est Glom Filt Rate - Afr Amer 24 mL/min (>60); Glucose 86 mg/dL (74-106); Hematocrit 32.4 % (37-47); Hemoglobin 10.1 g/dl (12.0-15.0); Mean Corp Hgb Conc 31.2 g/gl (32-36); Mean Corpuscular Hgb 28.9 pg (27.0-32.0); Mean Corpuscular Volume 92.6 fL (81-99); Mean Platelet Vol. 10.8 fl (6.2-12.0); Platelet Count 247 K/mm3 (150-450); Potassium 3.1 mmol/L (3.5-5.1); RBC Distribution Width SD 50.5 fl (35.1-43.9); Scan Indicated on CBC? Y/N NO; Sodium Level 134 mmol/L (136-145); White Blood Count 13.4 K/mm3 (4.4-11.0)
== END ==
LOC: OLS.AVED 07:35
PROVIDERS: Visit Provider Family Medicine
DX: E11.9 Type 2 diabetes mellitus without complications (principal)
CPT/HCPCS: 36415; 80048; 85027

== ENCOUNTER → 2018-01-15 13:45 | Outpatient (REF) | payer MEDICARE, SELFPAY | LOC: OLS.AVED 13:45 | PROVIDERS: Visit Provider Family Medicine | DX: R19.5 Other fecal abnormalities (principal) | CPT/HCPCS: 87493 ==

== ENCOUNTER → 2018-01-17 05:00 | Outpatient (REF) | payer MEDICARE, SELFPAY ==
[2018-01-17 09:09] LABS: Hematocrit 31.3 % (37-47); Hemoglobin 9.9 g/dl (12.0-15.0); Mean Corp Hgb Conc 31.6 g/gl (32-36); Mean Corpuscular Volume 91.8 fL (81-99); Mean Platelet Vol. 10.8 fl (6.2-12.0); Platelet Count 197 K/mm3 (150-450); RBC Distribution Width CV 15.2 % (11.6-14.6); RBC Distribution Width SD 50.8 fl (35.1-43.9); Red Blood Count 3.41 M/mm3 (4.2-5.4); White Blood Count 12.7 K/mm3 (4.4-11.0)
[2018-01-17 09:11] LABS: Scan Indicated on CBC? Y/N NO
[2018-01-17 09:39] LABS: ALB/GLOB Ratio 0.8 RATIO (0.9-2.4); AST(SGOT) 13 U/L (15-37); Alanine Aminotransfer ALT/SGPT 15 U/L (13-56); Albumin, Serum 2.7 g/dL (3.2-5.0); Alkaline Phosphatase 62 U/L (45-117); Anion Gap 11 (5-15); BUN 110 mg/dL (7-18); BUN/Creat Ratio 42.1 RATIO (10-20); Calcium,Total 8.3 mg/dL (8.5-10.1); Chloride 93 mmol/L (98-107); Creatinine, Serum 2.61 mg/dL (0.55-1.02); EST Glomerular Filtration Rate 19 mL/min (>60); Est Glom Filt Rate - Afr Amer 23 mL/min (>60); Globulin 3.4 g/dL (2.2-4.2); Glucose 106 mg/dL (74-106); Protein, Total 6.1 g/dL (6.4-8.2); Sodium Level 136 mmol/L (136-145)
== END ==
LOC: OLS.AVED 05:00
PROVIDERS: Visit Provider Family Medicine
DX: R53.83 Other fatigue (principal); I10 Essential (primary) hypertension
CPT/HCPCS: 36415; 80053; 85027

== ENCOUNTER → 2018-01-19 05:00 | Outpatient (REF) | payer MEDICARE, SELFPAY ==
[2018-01-19 09:41] LABS: Prothrombin Time Fingerstick 31.5 SEC (11.9-14.4)
== END ==
LOC: OLS.AVED 05:00
PROVIDERS: Visit Provider Family Medicine
DX: Z79.01 Long term (current) use of anticoagulants (principal)
CPT/HCPCS: 36416; 85610

== ENCOUNTER → 2018-01-23 05:00 | Outpatient (REF) | payer MEDICARE, SELFPAY ==
[2018-01-23 09:02] LABS: International Normalized Ratio 3.4; Prothrombin Time (Protime)PT. 34.6 SECONDS (11.7-14.9)
[2018-01-23 09:03] LABS: Hematocrit 30.4 % (37-47); Hemoglobin 9.8 g/dl (12.0-15.0); Mean Corp Hgb Conc 32.2 g/gl (32-36); Mean Corpuscular Hgb 29.3 pg (27.0-32.0); Mean Corpuscular Volume 90.7 fL (81-99); Mean Platelet Vol. 10.5 fl (6.2-12.0); Platelet Count 206 K/mm3 (150-450); RBC Distribution Width CV 14.8 % (11.6-14.6); RBC Distribution Width SD 48.7 fl (35.1-43.9); Red Blood Count 3.35 M/mm3 (4.2-5.4); White Blood Count 14.3 K/mm3 (4.4-11.0)
[2018-01-23 09:04] LABS: Scan Indicated on CBC? Y/N NO
[2018-01-23 09:24] LABS: Protein, Urine (Random) 16.3 mg/dL (<11.9); Protein:Creat Ratio 551 mg/g CRE (0-200)
[2018-01-23 09:26] LABS: Vitamin D,25 Hydroxy 23.6 ng/mL (29.95-100.01)
[2018-01-23 09:28] LABS: Albumin, Serum 2.8 g/dL (3.2-5.0); BUN 110 mg/dL (7-18); BUN/Creat Ratio 52.9 RATIO (10-20); Calcium,Total 8.4 mg/dL (8.5-10.1); Chloride 94 mmol/L (98-107); Creatinine, Serum 2.08 mg/dL (0.55-1.02); EST Glomerular Filtration Rate 25 mL/min (>60); Est Glom Filt Rate - Afr Amer 30 mL/min (>60); Glucose 147 mg/dL (74-106); Phosphorus 3.3 mg/dL (2.5-4.9); Potassium 3.3 mmol/L (3.5-5.1); Sodium Level 136 mmol/L (136-145)
== END ==
LOC: OLS.AVED 05:00
PROVIDERS: Visit Provider Family Medicine
DX: N18.4 Chronic kidney disease, stage 4 (severe) (principal)
CPT/HCPCS: 36415; 80069; 82306; 82570; 83970; 84156; 85027; 85610

== ENCOUNTER → 2018-01-31 05:00 | Outpatient (REF) | payer MEDICARE, SELFPAY ==
[2018-01-31 08:53] LABS: Hematocrit 31.6 % (37-47); Hemoglobin 9.9 g/dl (12.0-15.0); International Normalized Ratio 2.7; Mean Corp Hgb Conc 31.3 g/gl (32-36); Mean Corpuscular Hgb 28.7 pg (27.0-32.0); Mean Corpuscular Volume 91.6 fL (81-99); Mean Platelet Vol. 10.8 fl (6.2-12.0); Platelet Count 234 K/mm3 (150-450); Prothrombin Time (Protime)PT. 28.5 SECONDS (11.7-14.9); RBC Distribution Width CV 14.6 % (11.6-14.6); RBC Distribution Width SD 49.2 fl (35.1-43.9); Red Blood Count 3.45 M/mm3 (4.2-5.4); White Blood Count 13.1 K/mm3 (4.4-11.0)
[2018-01-31 08:57] LABS: Anion Gap 8 (5-15); BUN 79 mg/dL (7-18); BUN/Creat Ratio 44.9 RATIO (10-20); Calcium,Total 8.6 mg/dL (8.5-10.1); Chloride 94 mmol/L (98-107); Creatinine, Serum 1.76 mg/dL (0.55-1.02); EST Glomerular Filtration Rate 30 mL/min (>60); Est Glom Filt Rate - Afr Amer 37 mL/min (>60); Glucose 286 mg/dL (74-106); Sodium Level 133 mmol/L (136-145)
[2018-01-31 09:19] LABS: Scan Indicated on CBC? Y/N NO
== END ==
LOC: OLS.AVED 05:00
PROVIDERS: Visit Provider Family Medicine
DX: I48.91 Unspecified atrial fibrillation (principal); I13.0 Hypertensive heart and chronic kidney disease with heart failure and stage 1 through stage 4 chronic kidney disease, or unspecified chronic kidney disease; N18.9 Chronic kidney disease, unspecified; D63.1 Anemia in chronic kidney disease; I50.9 Heart failure, unspecified
CPT/HCPCS: 36415; 80048; 85027; 85610

== ENCOUNTER → 2018-02-07 04:00 | Outpatient (REF) | payer MEDICARE, SELFPAY ==
[2018-02-07 12:10] LABS: Prothrombin Time Fingerstick 35.5 SEC (11.9-14.4)
== END ==
LOC: OLS.AVED 04:00
PROVIDERS: Visit Provider Family Medicine
DX: I13.0 Hypertensive heart and chronic kidney disease with heart failure and stage 1 through stage 4 chronic kidney disease, or unspecified chronic kidney disease (principal); N18.9 Chronic kidney disease, unspecified; I50.9 Heart failure, unspecified; D63.1 Anemia in chronic kidney disease; I48.91 Unspecified atrial fibrillation
CPT/HCPCS: 36416; 85610

== ENCOUNTER → 2018-02-08 07:05 | Outpatient (REF) | payer MEDICARE, SELFPAY ==
[2018-02-08 07:58] LABS: Hematocrit 29.2 % (37-47); Mean Corp Hgb Conc 30.8 g/gl (32-36); Mean Corpuscular Hgb 28.8 pg (27.0-32.0); Mean Corpuscular Volume 93.6 fL (81-99); Mean Platelet Vol. 10.2 fl (6.2-12.0); Platelet Count 228 K/mm3 (150-450); RBC Distribution Width CV 14.7 % (11.6-14.6); RBC Distribution Width SD 49.6 fl (35.1-43.9); Red Blood Count 3.12 M/mm3 (4.2-5.4); White Blood Count 9.8 K/mm3 (4.4-11.0)
[2018-02-08 07:59] LABS: Scan Indicated on CBC? Y/N NO
[2018-02-08 08:10] LABS: Anion Gap 5 (5-15); BUN 57 mg/dL (7-18); BUN/Creat Ratio 24.6 RATIO (10-20); Calcium,Total 8.3 mg/dL (8.5-10.1); Chloride 100 mmol/L (98-107); Creatinine, Serum 2.32 mg/dL (0.55-1.02); EST Glomerular Filtration Rate 22 mL/min (>60); Est Glom Filt Rate - Afr Amer 27 mL/min (>60); Glucose 105 mg/dL (74-106); Potassium 3.4 mmol/L (3.5-5.1); Sodium Level 137 mmol/L (136-145)
== END ==
LOC: OLS.AVED 07:05
PROVIDERS: Visit Provider Family Medicine
DX: I13.0 Hypertensive heart and chronic kidney disease with heart failure and stage 1 through stage 4 chronic kidney disease, or unspecified chronic kidney disease (principal); N18.9 Chronic kidney disease, unspecified; I50.9 Heart failure, unspecified; D63.1 Anemia in chronic kidney disease; I48.91 Unspecified atrial fibrillation
CPT/HCPCS: 36415; 80048; 85027

== ENCOUNTER → 2018-02-09 04:00 | Outpatient (REF) | payer MEDICARE, SELFPAY ==
[2018-02-09 07:40] LABS: Prothrombin Time Fingerstick 31.8 SEC (11.9-14.4)
== END ==
LOC: OLS.AVED 04:00
PROVIDERS: Visit Provider Family Medicine
DX: Z79.01 Long term (current) use of anticoagulants (principal)
CPT/HCPCS: 36416; 85610

== ENCOUNTER → 2018-02-14 08:20 | Outpatient (REF) | payer MEDICARE, SELFPAY ==
[2018-02-14 09:33] LABS: Hematocrit 28.4 % (37-47); Hemoglobin 8.6 g/dl (12.0-15.0); Mean Corp Hgb Conc 30.3 g/gl (32-36); Mean Platelet Vol. 10.5 fl (6.2-12.0); Platelet Count 201 K/mm3 (150-450); RBC Distribution Width CV 14.6 % (11.6-14.6); RBC Distribution Width SD 49.8 fl (35.1-43.9); Red Blood Count 2.87 M/mm3 (4.2-5.4); White Blood Count 7.1 K/mm3 (4.4-11.0)
[2018-02-14 09:36] LABS: Scan Indicated on CBC? Y/N NO
== END ==
LOC: OLS.AVED 08:20
PROVIDERS: Visit Provider Family Medicine
DX: I12.9 Hypertensive chronic kidney disease with stage 1 through stage 4 chronic kidney disease, or unspecified chronic kidney disease (principal); N18.9 Chronic kidney disease, unspecified; E11.9 Type 2 diabetes mellitus without complications
CPT/HCPCS: 36415; 85027

== ENCOUNTER → 2018-02-20 05:00 | Outpatient (REF) | payer MEDICARE, SELFPAY ==
[2018-02-20 07:51] LABS: International Normalized Ratio 2.3; Prothrombin Time (Protime)PT. 25.6 SECONDS (11.7-14.9)
[2018-02-20 07:55] LABS: Anion Gap 7 (5-15); BUN 65 mg/dL (7-18); BUN/Creat Ratio 37.1 RATIO (10-20); Calcium,Total 8.2 mg/dL (8.5-10.1); Chloride 102 mmol/L (98-107); Creatinine, Serum 1.75 mg/dL (0.55-1.02); EST Glomerular Filtration Rate 31 mL/min (>60); Est Glom Filt Rate - Afr Amer 37 mL/min (>60); Glucose 187 mg/dL (74-106); Potassium 3.8 mmol/L (3.5-5.1); Sodium Level 143 mmol/L (136-145)
== END ==
LOC: OLS.AVED 05:00
PROVIDERS: Visit Provider Family Medicine
DX: D64.9 Anemia, unspecified (principal); Z79.01 Long term (current) use of anticoagulants
CPT/HCPCS: 36415; 80048; 85610

== ENCOUNTER → 2018-02-21 05:00 | Outpatient (REF) | payer MEDICARE, SELFPAY ==
[2018-02-21 06:57] LABS: Hematocrit 27.9 % (37-47); Hemoglobin 8.2 g/dl (12.0-15.0); Mean Corp Hgb Conc 29.4 g/gl (32-36); Mean Corpuscular Hgb 28.9 pg (27.0-32.0); Mean Corpuscular Volume 98.2 fL (81-99); Mean Platelet Vol. 10.6 fl (6.2-12.0); Platelet Count 194 K/mm3 (150-450); RBC Distribution Width CV 15.5 % (11.6-14.6); RBC Distribution Width SD 55.5 fl (35.1-43.9); Red Blood Count 2.84 M/mm3 (4.2-5.4)
[2018-02-21 07:12] LABS: Scan Indicated on CBC? Y/N NO
[2018-02-22 08:56] LABS: Hemoglobin A1c 7.3 % (4.2-6.3)
== END ==
LOC: OLS.AVED 05:00
PROVIDERS: Visit Provider Family Medicine
DX: D64.9 Anemia, unspecified (principal)
CPT/HCPCS: 83036; 85027

== ENCOUNTER → 2018-02-28 05:00 | Outpatient (REF) | payer MEDICARE, SELFPAY ==
[2018-02-28 07:26] LABS: Hematocrit 28.2 % (37-47); Hemoglobin 8.3 g/dl (12.0-15.0); Mean Corp Hgb Conc 29.4 g/gl (32-36); Mean Corpuscular Hgb 29.5 pg (27.0-32.0); Mean Corpuscular Volume 100.4 fL (81-99); Mean Platelet Vol. 10.8 fl (6.2-12.0); Platelet Count 179 K/mm3 (150-450); RBC Distribution Width CV 14.9 % (11.6-14.6); RBC Distribution Width SD 52.9 fl (35.1-43.9); Red Blood Count 2.81 M/mm3 (4.2-5.4); White Blood Count 7.9 K/mm3 (4.4-11.0)
[2018-02-28 07:31] LABS: Scan Indicated on CBC? Y/N NO
== END ==
LOC: OLS.AVED 05:00
PROVIDERS: Visit Provider Family Medicine
DX: D64.9 Anemia, unspecified (principal)
CPT/HCPCS: 36415; 85027

== ENCOUNTER → 2018-03-02 05:00 | Outpatient (REF) | payer MEDICARE, SELFPAY ==
[2018-03-02 07:30] LABS: Prothrombin Time Fingerstick 26.7 SEC (11.9-14.4)
== END ==
LOC: OLS.AVEC 05:00
PROVIDERS: Visit Provider Family Medicine
DX: Z79.01 Long term (current) use of anticoagulants (principal)
CPT/HCPCS: 36416; 85610

== ENCOUNTER → 2018-03-06 05:00 | Outpatient (REF) | payer MEDICARE, SELFPAY ==
[2018-03-06 08:01] LABS: Anion Gap 6 (5-15); BUN 62 mg/dL (7-18); BUN/Creat Ratio 34.8 RATIO (10-20); Calcium,Total 8.5 mg/dL (8.5-10.1); Chloride 104 mmol/L (98-107); Creatinine, Serum 1.78 mg/dL (0.55-1.02); EST Glomerular Filtration Rate 30 mL/min (>60); Est Glom Filt Rate - Afr Amer 36 mL/min (>60); Glucose 66 mg/dL (74-106); Potassium 5.9 mmol/L (3.5-5.1); Sodium Level 141 mmol/L (136-145)
[2018-03-06 08:40] LABS: Hematocrit 28.4 % (37-47); Hemoglobin 8.1 g/dl (12.0-15.0); Mean Corp Hgb Conc 28.5 g/gl (32-36); Mean Corpuscular Hgb 28.7 pg (27.0-32.0); Mean Corpuscular Volume 100.7 fL (81-99); Mean Platelet Vol. 10.5 fl (6.2-12.0); Platelet Count 241 K/mm3 (150-450); RBC Distribution Width CV 14.7 % (11.6-14.6); RBC Distribution Width SD 51.7 fl (35.1-43.9); Red Blood Count 2.82 M/mm3 (4.2-5.4); White Blood Count 7.9 K/mm3 (4.4-11.0)
[2018-03-06 08:44] LABS: Scan Indicated on CBC? Y/N NO
== END ==
LOC: OLS.AVED 05:00
PROVIDERS: Visit Provider Family Medicine
DX: I48.91 Unspecified atrial fibrillation (principal); I10 Essential (primary) hypertension; E78.5 Hyperlipidemia, unspecified; D64.9 Anemia, unspecified
CPT/HCPCS: 36415; 80048; 85027

== ENCOUNTER → 2018-03-12 04:00 | Outpatient (REF) | payer MEDICARE, SELFPAY ==
[2018-03-12 07:42] LABS: Hematocrit 28.8 % (37-47); Hemoglobin 8.2 g/dl (12.0-15.0); Mean Corp Hgb Conc 28.5 g/gl (32-36); Mean Corpuscular Hgb 28.6 pg (27.0-32.0); Mean Corpuscular Volume 100.3 fL (81-99); Mean Platelet Vol. 10.4 fl (6.2-12.0); Platelet Count 248 K/mm3 (150-450); RBC Distribution Width CV 15.3 % (11.6-14.6); RBC Distribution Width SD 53.5 fl (35.1-43.9); Red Blood Count 2.87 M/mm3 (4.2-5.4); White Blood Count 8.2 K/mm3 (4.4-11.0)
[2018-03-12 07:45] LABS: Scan Indicated on CBC? Y/N NO
[2018-03-12 08:18] LABS: Prothrombin Time (Protime)PT. 43.9 SECONDS (11.7-14.9)
[2018-03-12 08:19] LABS: Anion Gap 5 (5-15); BUN 54 mg/dL (7-18); BUN/Creat Ratio 27.3 RATIO (10-20); Calcium,Total 8.4 mg/dL (8.5-10.1); Chloride 103 mmol/L (98-107); Creatinine, Serum 1.98 mg/dL (0.55-1.02); EST Glomerular Filtration Rate 27 mL/min (>60); Est Glom Filt Rate - Afr Amer 32 mL/min (>60); Glucose 51 mg/dL (74-106); Potassium 3.5 mmol/L (3.5-5.1); Sodium Level 143 mmol/L (136-145)
[2018-03-12 08:41] LABS: International Normalized Ratio 4.6
== END ==
LOC: OLS.AVED 04:00
PROVIDERS: Visit Provider Family Medicine
DX: D64.9 Anemia, unspecified (principal); Z79.01 Long term (current) use of anticoagulants; N18.9 Chronic kidney disease, unspecified
CPT/HCPCS: 36415; 80048; 85027; 85610

== ENCOUNTER → 2018-03-14 05:00 | Outpatient (REF) | payer MEDICARE, SELFPAY ==
[2018-03-14 09:28] LABS: Prothrombin Time (Protime)PT. 40.9 SECONDS (11.7-14.9)
[2018-03-14 09:35] LABS: International Normalized Ratio 4.2
== END ==
LOC: OLS.AVED 05:00
PROVIDERS: Visit Provider Family Medicine
DX: Z79.01 Long term (current) use of anticoagulants (principal)
CPT/HCPCS: 36415; 85610

== ENCOUNTER → 2018-03-16 05:00 | Outpatient (REF) | payer MEDICARE, SELFPAY ==
[2018-03-16 06:35] LABS: Prothrombin Time Fingerstick 48.4 SEC (11.9-14.4)
[2018-03-16 12:48] LABS: Prothrombin Time (Protime)PT. 39.1 SECONDS (11.7-14.9)
[2018-03-16 12:56] LABS: ALB/GLOB Ratio 0.6 RATIO (0.9-2.4); AST(SGOT) 11 U/L (15-37); Alanine Aminotransfer ALT/SGPT 18 U/L (13-56); Albumin, Serum 2.4 g/dL (3.2-5.0); Alkaline Phosphatase 80 U/L (45-117); Anion Gap 10 (5-15); BUN 70 mg/dL (7-18); BUN/Creat Ratio 29.7 RATIO (10-20); Calcium,Total 8.3 mg/dL (8.5-10.1); Chloride 97 mmol/L (98-107); Creatinine, Serum 2.36 mg/dL (0.55-1.02); EST Glomerular Filtration Rate 22 mL/min (>60); Est Glom Filt Rate - Afr Amer 26 mL/min (>60); Globulin 3.9 g/dL (2.2-4.2); Glucose 52 mg/dL (74-106); Potassium 4.3 mmol/L (3.5-5.1); Protein, Total 6.3 g/dL (6.4-8.2); Sodium Level 141 mmol/L (136-145)
== END ==
LOC: OLS.AVED 05:00
PROVIDERS: Visit Provider Family Medicine
DX: N17.9 Acute kidney failure, unspecified (principal); I48.91 Unspecified atrial fibrillation; Z79.01 Long term (current) use of anticoagulants
CPT/HCPCS: 36415; 36416; 80053; 85610

== ENCOUNTER → 2018-03-19 04:30 | Outpatient (REF) | payer MEDICARE, SELFPAY ==
[2018-03-19 08:26] LABS: Prothrombin Time Fingerstick 26.9 SEC (11.9-14.4)
== END ==
LOC: OLS.AVED 04:30
PROVIDERS: Visit Provider Family Medicine
DX: Z79.01 Long term (current) use of anticoagulants (principal)
CPT/HCPCS: 36416; 85610

== ENCOUNTER → 2018-03-20 05:00 | Outpatient (REF) | payer MEDICARE, SELFPAY ==
[2018-03-20 08:22] LABS: Hematocrit 27.5 % (37-47); Hemoglobin 7.9 g/dl (12.0-15.0); Mean Corp Hgb Conc 28.7 g/gl (32-36); Mean Corpuscular Hgb 28.8 pg (27.0-32.0); Mean Corpuscular Volume 100.4 fL (81-99); Mean Platelet Vol. 10.8 fl (6.2-12.0); Platelet Count 191 K/mm3 (150-450); RBC Distribution Width CV 15.2 % (11.6-14.6); RBC Distribution Width SD 52.7 fl (35.1-43.9); Red Blood Count 2.74 M/mm3 (4.2-5.4); White Blood Count 10.3 K/mm3 (4.4-11.0)
[2018-03-20 08:25] LABS: Scan Indicated on CBC? Y/N NO
[2018-03-20 08:32] LABS: Anion Gap 6 (5-15); BUN 75 mg/dL (7-18); BUN/Creat Ratio 32.8 RATIO (10-20); Calcium,Total 8.2 mg/dL (8.5-10.1); Chloride 97 mmol/L (98-107); Creatinine, Serum 2.29 mg/dL (0.55-1.02); EST Glomerular Filtration Rate 22 mL/min (>60); Est Glom Filt Rate - Afr Amer 27 mL/min (>60); Glucose 131 mg/dL (74-106); Potassium 4.8 mmol/L (3.5-5.1); Sodium Level 136 mmol/L (136-145)
[2018-03-20 08:59] LABS: International Normalized Ratio 2.3
--- OUTSIDE RECORDS SUMMARY | 2018-05-01 18:50 | XMS RPT_ITS ---
:1950 Author Organization OHIP Support Name Relationship Address Phone Kirti Ho Unavailable [address] [place] [address] Cortney Womackleen Unavailable Unavailable + [place] [address] R Unavailable Unavailable Unavailable Ho, Kirti Unavailable [address] [place] [address] Cortney Womackleen Unavailable Unavailable + [place] [address] R Unavailable Unavailable Unavailable Ho, Kirti Unavailable [address] [place] [address] Vu Phoebe Unavailable Unavailable + [place] [address] R Unavailable Unavailable Unavailable HO, KIRTI Unavailable [address] [place] [address] VU, PHOEBE Unavailable Unavailable + [place] [address] R Unavailable Unavailable Unavailable Ho, Kirti Unavailable [address] [place] [address] Vu, Phoebe Unavailable Unavailable + [place] [address] R Unavailable Unavailable Unavailable Ho, Kirti Unavailable [address] [place] [address] Vu Phoebe Unavailable Unavailable + [place] [address] R Unavailable Unavailable Unavailable Ho, Kirti Unavailable [address] [place] [address] Vu Phoebe Unavailable Unavailable + [place] [address] R Unavailable Unavailable Unavailable Ho, Kirti Unavailable [address] [place] [address] Vu, Phoebe Unavailable Unavailable + [place] [address] R Unavailable Unavailable Unavailable Ho, Kirti Unavailable [address] [place] [address] Vu, Phoebe Unavailable Unavailable + [place] [address] R Unavailable Unavailable Unavailable Ho, Kirti Unavailable [address] [place] [address] Vu, Phoebe Unavailable Unavailable + [place] [address] R Unavailable Unavailable Unavailable Ho, Kirti Unavailable [address] + [address] [place] [address] Vu, Phoebe Unavailable Unavailable + [place] [address] R Unavailable Unavailable Unavailable Ho, Kirti Unavailable [address] + [address] [place] [address] Vu, Phoebe Unavailable Unavailable + [place] [address] R Unavailable Unavailable Unavailable Ho, Kirti Unavailable [address] + [address] [place] [address] Vu, Phoebe Unavailable Unavailable + [place] [address] R Unavailable Unavailable Unavailable Ho, Kirti Unavailable [address] + [address] [place] [address] Vu, Phoebe Unavailable Unavailable + [place] [address] R Unavailable Unavailable Unavailable Ho, Kirti Unavailable [address] + [address] [place] [address] Vu, Phoebe Unavailable Unavailable + [place] [address] R Unavailable Unavailable Unavailable Ho, Kirti Unavailable [address] + [address] [place] [address] Vu, Phoebe Unavailable Unavailable + [place] [address] R Unavailable Unavailable Unavailable Ho, Kirti Unavailable [address] + [address] [place] [address] Vu, Phoebe Unavailable Unavailable + [place] [address] R Unavailable Unavailable Unavailable Ho, Kirti Unavailable [address] + [address] [place] [address] Vu, Phoebe Unavailable Unavailable + [place] [address] R Unavailable Unavailable Unavailable Ho, Kirti Unavailable [address] + [address] [place] [address] Vu, Phoebe Unavailable Unavailable + [place] [address] R Unavailable Unavailable Unavailable Ho, Kirti Unavailable [address] + [address] [place] [address] Vu, Phoebe Unavailable Unavailable + [place] [address] R Unavailable Unavailable Unavailable Ho, Kirti Unavailable [address] + [address] [place] [address] Vu, Phoebe Unavailable Unavailable + [place] [address] R Unavailable Unavailable Unavailable Ho, Kirti Unavailable [address] + [address] [place] [address] Vu, Phoebe Unavailable Unavailable + [place] [address] R Unavailable Unavailable Unavailable Ho, Kirti Unavailable [address] + [address] [place] [address] Vu, Phoebe Unavailable Unavailable + [place] [address] R Unavailable Unavailable Unavailable Ho, Kirti Unavailable [address] + [address] [place] [address] Vu, Phoebe Unavailable Unavailable + [place] [address] R Unavailable Unavailable Unavailable Ho, Kirti Unavailable [address] + [address] [place] [address] Vu, Phoebe Unavailable Unavailable + [place] [address] R Unavailable Unavailable Unavailable Ho, Kirti Unavailable [address] + [address] [place] [address] Vu, Phoebe Unavailable Unavailable + [place] [address] R Unavailable Unavailable Unavailable Ho, Kirti Unavailable [address] + [address] [place] [address] Vu, Phoebe Unavailable Unavailable + [place] [address] R Unavailable Unavailable Unavailable HO, KIRTI Unavailable [address] + [address] [place] [address] VU, PHOEBE Unavailable Unavailable + [place] [address] R Unavailable Unavailable Unavailable Ho, Kirti Unavailable [address] + [address] [place] [address] Vu, Phoebe Unavailable Unavailable + [place] [address] R Unavailable Unavailable Unavailable HO, KIRTI Unavailable [address] + [address] [place] [address] VU, PHOEBE Unavailable Unavailable + [place] [address] R Unavailable Unavailable Unavailable Ho, Kirti Unavailable [address] + [address] [place] [address] Vu, Phoebe Unavailable Unavailable + [place] [address] R Unavailable Unavailable Unavailable HO, KIRTI Unavailable [address] + [address] [place] [address] VU, PHOEBE Unavailable Unavailable + [place] [address] R Unavailable Unavailable Unavailable HO, KIRTI Unavailable [address] + [address] [place] [address] VU, PHOEBE Unavailable Unavailable + [place] [address] R Unavailable Unavailable Unavailable HO, KIRTI Unavailable [address] + [address] [place] [address] VU, PHOEBE Unavailable Unavailable + [place] [address] R Unavailable Unavailable Unavailable HO, KIRTI Unavailable [address] + [address] [place] [address] VU, PHOEBE Unavailable Unavailable + [place] [address] R Unavailable Unavailable Unavailable HO, KIRTI Unavailable [address] + [address] [place] [address] VU, PHOEBE Unavailable Unavailable + [place] [address] R Unavailable Unavailable Unavailable HO, KIRTI Unavailable [address] + [address] [place] [address] VU, PHOEBE Unavailable Unavailable + [place] [address] R Unavailable Unavailable Unavailable HO, KIRTI Unavailable [address] + [address] [place] [address] VU, PHOEBE Unavailable Unavailable + [place] [address] R Unavailable Unavailable Unavailable [facility], KIRTI Unavailable [address] [place] [address] VU, PHOEBE Unavailable Unavailable + [place] [address] R Unavailable Unavailable Unavailable [facility], KIRTI Unavailable [address] + [address] [place] [address] VU, PHOEBE Unavailable Unavailable + [place] [address] R Unavailable Unavailable Unavailable [facility], KIRTI Unavailable [address] + [address] [place] [address] VU, PHOEBE Unavailable Unavailable + [place] [address] R Unavailable Unavailable Unavailable HO[facility] , KIRTI Unavailable [address] + [address] [place] [address] VU, PHOEBE Unavailable Unavailable + [place] [address] R Unavailable Unavailable Unavailable HO-[facility] , KIRTI Unavailable [address] + [address] [place] [address] CHELSEA WOMACKEN Unavailable Unavailable + [place] [address] R Unavailable Unavailable Unavailable HO, KIRTI Unavailable [address] + [address] [place] [address] CHELSEA WOMACKEN Unavailable Unavailable + [place] [address] R Unavailable Unavailable Unavailable [facility], KIRTI Unavailable [address] + [address] [place] [address] VU, PHOEBE Unavailable Unavailable + [place] [address] R Unavailable Unavailable Unavailable HO, KIRTI Unavailable [address] + [address] [place] [address] CHELSEA WOMACKEN Unavailable Unavailable + [place] [address] R Unavailable Unavailable Unavailable HO, KIRTI Unavailable [address] + [address] [place] [address] VU, PHOEBE Unavailable Unavailable + [place] [address] R Unavailable Unavailable Unavailable HO, KIRTI Unavailable [address] + [address] [place] [address] CHELSEA WOMACKEN Unavailable Unavailable + [place] [address] R Unavailable Unavailable Unavailable HO, KIRTI Unavailable [address] + [address] [place] [address] CHELSEA WOMACKEN Unavailable Unavailable + [place] [address] R Unavailable Unavailable Unavailable [facility], KIRTI Unavailable [address] + [address] [place] [address] CHELSEA WOMACKEN Unavailable Unavailable + [place] [address] R Unavailable Unavailable Unavailable [facility], KIRTI Unavailable [address] + [address] [place] [address] VU, PHOEBE Unavailable Unavailable + [place] [address] R Unavailable Unavailable Unavailable [facility] [place] , KIRTI Unavailable [address] + [address] [place] [address] VU, PHOEBE Unavailable Unavailable + [place] [address] R Unavailable Unavailable Unavailable [facility] [place] , KIRTI Unavailable [address] + [address] [place] [address] VU, PHOEBE Unavailable Unavailable + [place] [address] R Unavailable Unavailable Unavailable HO, KIRTI Unavailable [address] + [address] [place] [address] VU, PHOEBE Unavailable Unavailable + [place] [address] R Unavailable Unavailable Unavailable HO, KIRTI Unavailable [address] + [address] [place] [address] VU, PHOEBE Unavailable Unavailable + [place] [address] R Unavailable Unavailable Unavailable HO, KIRTI Unavailable [address] + [address] [place] [address] VU, PHOEBE Unavailable Unavailable + [place] [address] R Unavailable Unavailable Unavailable HO, KIRTI Unavailable [address] + [address] [place] [address] VU, PHOEBE Unavailable Unavailable + [place] [address] R Unavailable Unavailable Unavailable HO, KIRTI Unavailable [address] + [address] [place] [address] R Unavailable Unavailable Unavailable HO, KIRTI Unavailable [address] + [address] [place] [address] VU, PHOEBE Unavailable Unavailable + [place] [address] R Unavailable Unavailable Unavailable [place], KIRTI Unavailable [address] + [address] [place] [address] VU, PHOEBE Unavailable Unavailable + [place] [address] R Unavailable Unavailable Unavailable HO, KIRTI Unavailable [address] + [address] [place] [address] PHOEBE WOMACK Unavailable Unavailable + [facility] [place] [address] R Unavailable Unavailable Unavailable HO, KIRTI Unavailable [address] [place] [address] R Unavailable Unavailable Unavailable HO, KIRTI Unavailable [address] + [address] [place] [address] R Unavailable Unavailable Unavailable HO, KIRTI Unavailable [address] + [address] [place] [address] R Unavailable Unavailable Unavailable HO, KIRTI Unavailable [address] + [address] [place] [address] PHOEBE WOMACK Unavailable Unavailable + [place] [address] R Unavailable Unavailable Unavailable HO, KIRTI Unavailable [address] + [address] [place] [address] R Unavailable Unavailable Unavailable HO, KIRTI Unavailable [address] + [address] [place] [address] R Unavailable Unavailable Unavailable HO, KIRTI Unavailable [address] + [address] [place] [address] R Unavailable Unavailable Unavailable HO, KIRTI Unavailable [address] + [address] [place] [address] R Unavailable Unavailable Unavailable HO, KIRTI Unavailable [address] + [address] [place] [address] R Unavailable Unavailable Unavailable HO, KIRTI Unavailable [address] [place] [address] R Unavailable Unavailable Unavailable HO, KIRTI Unavailable [address] [place] [address] R Unavailable Unavailable Unavailable Care Team Providers Name Role Phone RON MACIAS (MECHATRONICS ENGINEER) Attending Unavailable WILLIAMS PAREKH Referring Unavailable WILLIAMS PAREKH Attending Unavailable WILLIAMS PAREKH Referring Unavailable ARIEL, AMAR Attending Unavailable ARIEL AMAR Referring Unavailable ARIEL AMAR Referring Unavailable RON MACIAS (MECHATRONICS ENGINEER) Attending Unavailable WILLIAMS PAREKH Referring Unavailable EMA CURRY (SORTER LAUNDRY ARTICLES) Attending Unavailable Moodispaw, Michael Attending Unavailable Moodispaw, Michael Referring Unavailable Talampas, Williams Primary Care Unavailable Lela Bullock Attending Unavailable Talampas, Williams Referring Unavailable Moodispaw, Michael Attending Unavailable Moodispaw, Michael Referring Unavailable Talampas, Williams Primary Care Unavailable Esa, Michael Attending Unavailable Moodispaw, Michael Referring Unavailable Talampas, Williams Primary Care Unavailable Talampas, Williams Primary Care Unavailable Brian Frey Attending Unavailable Stefany Carrion Attending Unavailable RoofAnibal Attending Unavailable Talampas, Williams Referring Unavailable Talampas, Williams Primary Care Unavailable Lela Bullock Attending Unavailable Talampas, Williams Referring Unavailable RoofAnibal H Attending Unavailable Talampas, Williams Primary Care Unavailable Lela Bullock Attending Unavailable Talampas, Williams Referring Unavailable Talampas, Williams Primary Care Unavailable Sridevi, Piter Admitting Unavailable GbJovanny crowmbian Attending Unavailable Sridevi, Piter Admitting Unavailable Talampas, Williams Primary Care Unavailable Sridevi, Piter Consulting Unavailable Lane Light Attending Unavailable Sridevi, Piter Admitting Unavailable Efrain, Sacha Attending Unavailable Talampas, Williams Primary Care Unavailable Efrain, Sacha Consulting Unavailable Michael See Attending Unavailable Moodispaw, Michael Referring Unavailable Talampas, Williams Primary Care Unavailable Sridevi, Piter Admitting Unavailable Talampas, Williams Primary Care Unavailable Gbaruk, Kombian Consulting Unavailable White, Loren Attending Unavailable Sridevi, Piter Admitting Unavailable Talampas, Williams Primary Care Unavailable Gbaruk, Kombian Consulting Unavailable White, Loren Attending Unavailable Saji Hernandez Attending Unavailable JenniispaMichael manzanares Attending Unavailable Moodispaleighton Michael Referring Unavailable Talampas, Williams Primary Care Unavailable Ha Herman Attending Unavailable Talampas, Williams Primary Care Unavailable White, Loren Admitting Unavailable Moodthi, Michael Consulting Unavailable Muraliaruk, Kombian Attending Unavailable White, Loren Admitting Unavailable White, Loren Attending Unavailable Talampas, Williams Primary Care Unavailable White, Loren Consulting Unavailable White, Loren Admitting Unavailable Esa Michael Attending Unavailable Talampas, Williams Primary Care Unavailable Moodthi, Michael Consulting Unavailable White, Loren Consulting Unavailable White, Loren Admitting Unavailable Ashelfah, Ghasem Attending Unavailable Talampas, Williams Primary Care Unavailable MoodispawMichael Consulting Unavailable Ashelfah, Ghasem Consulting Unavailable White, Loren Admitting Unavailable MoodispawMichael Attending Unavailable Talampas, Williams Primary Care Unavailable MoodispaMichael manzanares Consulting Unavailable Ashelfah, Ghasem Consulting Unavailable White, Loren Admitting Unavailable Moodispaleighton, Michael Attending Unavailable Talampas, Williams Primary Care Unavailable MoodispaMichael manzanares Consulting Unavailable Gbaruk, Kombian Consulting Unavailable White, Loren Admitting Unavailable Talampas, Williams Primary Care Unavailable MoodispawMichael Consulting Unavailable Efrain, Sacha Attending Unavailable Gbaruk, Kombian Consulting Unavailable White, Loren Admitting Unavailable Talampas, Williams Primary Care Unavailable MoodispawMichael Consulting Unavailable Efrain, Sacha Attending Unavailable Gbaruk, Kombian Consulting Unavailable White, Loren Admitting Unavailable Moodispaleighton, Michael Attending Unavailable Talampas, Williams Primary Care Unavailable MoodispaMichael manzanares Consulting Unavailable Muraliaruk, Kombian Consulting Unavailable Moodispaleighton, Michael Attending Unavailable MoodMichael ness Referring Unavailable Talampas, Williams Primary Care Unavailable Moodthi, Michael Attending Unavailable Talampas, Williams Primary Care Unavailable MoodgisellpaMichael manzanares Referring Unavailable MoodispaMichael manzanares Attending Unavailable Talampas, Williams Referring Unavailable Yani Rick Attending Unavailable Anibal Jenkins Attending Unavailable Talampas, Williams Referring Unavailable Moodispaleighton, Michael Attending Unavailable MoodispaMichael manzanares Referring Unavailable Talampas, Williams Primary Care Unavailable Lela Bullock Attending Unavailable Talampas, Williams Referring Unavailable Talampas, Williams Primary Care Unavailable Talampas, Williams Primary Care Unavailable Vinay Valerio Attending Unavailable MoodispaMichael manzanares Attending Unavailable Talampas, Williams Referring Unavailable Talampas, Williams Primary Care Unavailable MoodispaMichael manzanares Attending Unavailable MoodispaMichael manzanares Referring Unavailable Talampas, Williams Primary Care Unavailable Lela Bullock Attending Unavailable Talampas, Williams Referring Unavailable Talampas, Williams Primary Care Unavailable MoodisMichael ponce Attending Unavailable MoodisMichael ponce Referring Unavailable Talampas, Williams Primary Care Unavailable Talampas, Williams Primary Care Unavailable Matt Sweet Attending Unavailable Talampas, Williams Primary Care Unavailable White, Loren Admitting Unavailable Basali, Ayman Consulting Unavailable Oleghe, Ifijen Attending Unavailable White, Loren Admitting Unavailable Talampas, Williams Primary Care Unavailable White, Loren Consulting Unavailable White, Loren Attending Unavailable White, Loren Admitting Unavailable Talampas, Williams Primary Care Unavailable Basali, Ayman Consulting Unavailable Walter Giles F Attending Unavailable Walter Giles F Consulting Unavailable White, Loren Admitting Unavailable Cristian Dotson Attending Unavailable Talampas, Williams Primary Care Unavailable Basali, Ayman Consulting Unavailable Oleghe, Ifijen Consulting Unavailable Figueroa, Michael Attending Unavailable Figueroa, Michael Attending Unavailable Figueroa, Michael Attending Unavailable Figueroa, Michael Attending Unavailable Figueroa, Michael Attending Unavailable Figueroa, Michael Attending Unavailable Figueroa, Michael Attending Unavailable Figueroa, Michael Attending Unavailable Figueroa, Michael Attending Unavailable Figueroa, Michael Attending Unavailable Figueroa, Michael Attending Unavailable Figueroa, Michael Attending Unavailable AraLela Attending Unavailable Talampas, Williams Referring Unavailable Figueroa, Michael Attending Unavailable Figueroa, Michael Attending Unavailable Figueroa, Michael Attending Unavailable Figueroa, Michael Attending Unavailable Figueroa, Michael Attending Unavailable Figueroa, Michael Attending Unavailable Figueroa, Michael Attending Unavailable Figueroa, Michael Attending Unavailable Figueroa, Michael Attending Unavailable Figueora, Michael Attending Unavailable Figueroa, Michael Attending Unavailable Talampas, Williams Primary Care Unavailable Kandi Chávez Attending Unavailable Figueroa, Michael Attending Unavailable Figueroa, Michael Attending Unavailable PROBLEMS PROBLEMS DATE TYPE CONDITION / CODE ATTENDING STATUS SOURCE 04/05/2018 Unknown Z79.01 - nursing home Michael Figuero[facility] (current) use of [facility] anticoagulants / Hospital Z79.01(ICD-10) Repository 04/05/2018 Unknown E11.9 - Type 2 Michael Figueroa diabetes mellitus Community without complications Hospital / E11.9(ICD-10) Repository 03/30/2018 Unknown D64.9 - Anemia, Michael [facility] unspecified / Community D64.9(ICD-10) Hospital Repository 03/30/2018 Unknown N17.9 - Acute kidney Michael Figueroa failure, unspecified / Community N17.9(ICD-10) Hospital Repository 03/29/2018 Unknown N18.9 - Chronic kidney Figueroa, Michael [facility] disease, unspecified / Community N18.9(ICD-10) Hospital Repository 03/23/2018 Unknown I48.91 - Unspecified Michael Figueroa Active [facility] atrial fibrillation / Community I48.91(ICD-10) Hospital Repository 03/23/2018 Unknown I10 - Essential Michael Figueroa Active [place] (primary) hypertension Community / I10(ICD-10) Hospital Repository 03/23/2018 Unknown E78.5 - Michael Figueroa Active [place] Hyperlipidemia, Community unspecified / Hospital E78.5(ICD-10) Repository 03/05/2018 Unknown I50.9 - Heart failure, Michael Figueroa Active [place] unspecified / Community I50.9(ICD-10) Hospital Repository 02/28/2018 Unknown N18.4 - Chronic kidney Michael Figueroa Active [facility] disease, stage 4 Community (severe) / Hospital N18.4(ICD-10) Repository 02/21/2018 Unknown R19.7 - Diarrhea, Michael Figueroa Active [facility] unspecified / Community R19.7(ICD-10) Hospital Repository 02/19/2018 Unknown R60.9 - Edema, Michael [facility]ueroa Active [facility] unspecified / Community R60.9(ICD-10) Hospital Repository 01/03/2018 Unknown M25.559 - Pain in Oleronnie, Octavio Active [place] unspecified hip / Community M25.559(ICD-10) Hospital Repository 12/28/2017 Unknown M06.9 - Rheumatoid Mciki, Active [facility] arthritis, unspecified [place] Community / M06.9(ICD-10) Hospital Repository 12/27/2017 Unknown I48.2 - Chronic atrial Ara, Lela Active [facility] fibrillation / Community I48.2(ICD-10) Hospital Repository 12/27/2017 Unknown I42.8 - Other Ara, Lela Active [place] cardiomyopathies / Community I42.8(ICD-10) Hospital Repository 12/27/2017 Unknown 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 / Repository Z95.810(ICD-10) 12/27/2017 Unknown I47.2 - Ventricular AraLela Active [facility] tachycardia / Community I47.2(ICD-10) Hospital Repository 12/26/2017 Unknown I48.0 - Paroxysmal Moodispaw, Active [facility] atrial fibrillation / [facility] I48.0(ICD-10) Hospital Repository 12/26/2017 Unknown 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, 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 Repository without angina pectoris / I25.10(ICD-10) 12/26/2017 Unknown I05.2 - Rheumatic Moodispaw, Active [facility] mitral stenosis with [facility] insufficiency / Hospital I05.2(ICD-10) Repository 12/26/2017 Unknown I35.0 - Nonrheumatic Moodispaw, Active [facility] aortic (valve) [facility] stenosis / Hospital I35.0(ICD-10) Repository 12/26/2017 Unknown I47.1 - Moodispaw, Active [place] Supraventricular [facility] tachycardia / Hospital I47.1(ICD-10) Repository 01/19/2017 Active Type 2 diabetes NA Active [place] mellitus with other Clinic Main circulatory [place] complications / Repository 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 / Clinic Main Z79.4(ICD-10) [place] Repository 03/08/2014 Active Chronic kidney NA Active [place] disease, stage 4 Clinic Main (severe) / [place] N18.4(ICD-10) Repository 10/03/2017 Active Pain in unspecified NA Active [place] joint / M25.50(ICD-10) Clinic Main [place] Repository 09/07/2017 Active Acute on chronic NA Active [place] diastolic (congestive) Clinic [facility] heart failure / [place] I50.33(ICD-10) Repository 08/17/2017 Active Other retirement NA Active [place] (current) drug therapy Clinic Main / Z79.899(ICD-10) [place] Repository 08/01/2017 Active Unknown / UNK(Unknown) RON MACIAS Active [place] (MECHATRONICS ENGINEER) Clinic Main [place] Repository 09/06/2017 Unknown M79.89 - Other Ha Herman Active [place] specified soft tissue Community disorders / Hospital M79.89(ICD-10) Repository 06/21/2017 Unknown 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 Community / Z95.3(ICD-10) Hospital Repository 06/21/2017 Unknown R42 - Dizziness and Roof, Anibal H Active [facility] giddiness / Community R42(ICD-10) Hospital Repository PROCEDURES PROCEDURES No Procedure Records FoundRESULTS RESULTS PROGRESS Observed: 03/28/2018 Status: COMPLETED Source: [place] 9:21 AM [facility] REPOSITORY HNO ID: [id number] Author: Rashida Allen Service: (none) Author Type: Registered Nurse Type: Progress Notes Filed: 03/28/2018 9:21 AM Note Text: PRIMARY CARE COORDINATION QUICK NOTE Provider Action/FYI Pt 03/27/18 at [facility] Patient identified by name and date . Pt at [facility] yesterday, PROGRESS Observed: 03/28/2018 Status: COMPLETED Source: [place] 8:38 AM [facility] REPOSITORY HNO ID: [id number] Author: Makeda Curtis Cma Service: (none) Author Type: (none) Type: Progress Notes Filed: 03/28/2018 8:41 AM Note Text: I spoke with Mony at [facility] and she states that Elizabeth yesterday. CNPTOUTREACH Observed: 03/28/2018 Status: COMPLETED Source: [place] 12:00 AM [facility] REPOSITORY Patient Outreach ([facility]) ELIZABETH HO ([id number]) 1950 F Date Time Provider Department 03/28/18 RASHIDA SALDANA [facility] During your visit today, we recorded the following information about you: Rashida Lovell RN 03/28/2018 9:21 AM Signed PRIMARY CARE COORDINATION QUICK NOTE Provider Action/FYI Pt 03/27/18 at [facility] Patient identified by name and date . Pt at [facility] yesterday, Allergies As of Date: 03/28/2018 Noted Allergy Reaction AUGMENTIN (AMOXICILLIN-POT CLAVUL*2013 2 - Rash SULFA (SULFONAMIDE ANTIBIOTICS) 01/10/2005 4 - Hives VANCOMYCIN 08/26/2013 10 - Anaphylaxis Comments: Per pharmacist. Patient tolerating PO Vancomycin. on 01/07 pt in [facility] and had ld syndrome rxn to [facility]. Date Reviewed: 12/29/2017 Reviewed by: Maria Esther Campbell LPN - Fully Assessed Prescriptions as of 03/28/2018 Sig: TRAMADOL 50 MG TABLET Take 50 mg by mouth every 6 h* ONDANSETRON 4 MG DISINTEGRATI* Take 1 tablet by mouth every * METOLAZONE 5 MG TABLET Take 5mg Monday, Monday an* NYSTATIN 100,000 UNIT/GRAM TO* Apply 1 application to affect* BLOOD SUGAR DIAGNOSTIC STRIPS before meals and at bedtime. * INSULIN ASPART U-100 100 UNI* Inject subcutaneously 5 units* INSULIN GLARGINE (U-100) 100 * Inject 42 Units subcutaneousl* LEVOTHYROXINE 75 MCG TABLET Take 1 tablet by mouth every * WARFARIN 4 MG TABLET 4mg Monday, 2 mg daily rest o* AMIODARONE 200 MG TABLET Take 1 tablet by mouth three * HIDEAWAY PULSEDOSE OXYGEN SYS* Overnight pulse Ox check 327.* COMPOUNDED PRESCRIPTION Paper Tape. 2 . FUROSEMIDE 40 MG TABLET Take 1 tablet by mouth twice * SPIRONOLACTONE 25 MG TABLET Take 1 tablet by mouth once d* DOCUSATE SODIUM 100 MG CAPSULE Take 1 capsule by mouth twice* ATORVASTATIN 40 MG TABLET Take 40 mg by mouth once fernando* CARVEDILOL 3.125 MG TABLET Take 1 tablet by mouth twice * * LANCETS Test 4 times daily 250.02, in* * ACETAMINOPHEN 500 MG TABLET Take 500 mg by mouth every 4 * * ASPIRIN 81 MG TABLET Take one (1) tablet daily . Problem List As Of Date 03/28/2018 Noted Resolved Other and unspecified hyperlipidemia [E78.5] More... Non morbid obesity due to excess calories [E66.* More... More... More... Paroxysmal ventricular tachycardia [I47.2] INVALID FOR* More... EDEMA [R60.9] INVALID FOR* Venous (peripheral) insufficiency [I87.2] INVALID FOR* More... Other malaise and fatigue [R53.81, R53.83] INVALID FOR*11/29/2010 Cellulitis of left leg [L03.116] INVALID FOR*02/16/2017 More... More... Dialysis patient [Z99.2] INVALID FOR*04/18/2013 More... CKD (chronic kidney disease) stage 4, GFR 15-29* More... Varicose veins of lower extremities with ulcer *INVALID FOR* Vitamin D deficiency [E55.9] INVALID FOR* More... Secondary hyperparathyroidism [N25.81] INVALID FOR* CAD (coronary artery disease), [place] coronary *INVALID FOR* More... More... [place]orsades de pointes (HCC) [I47.2] INVALID FOR*08/21/2017 More... Aortic stenosis [I35.0] INVALID FOR* More... Mitral stenosis [I05.0] INVALID FOR* More... More... More... More... More... On home O2 [Z99.81] INVALID FOR* More... Elevated bilirubin [R17] INVALID FOR*03/23/2013 More... More... More... PVD (peripheral vascular disease) [I73.9] INVALID FOR* More... More... More... More... Anemia [D64.9] INVALID FOR* More... Bursitis of left shoulder [M75.52] INVALID FOR*02/16/2017 Urinary incontinence [R32] INVALID FOR* More... More... Pressure ulcer, other site(707.09) [L89.899] INVALID FOR*02/16/2017 More... More... More... Implantable cardioverter-defibrillator (ICD) in*INVALID FOR* More... More... DVT prophylaxis [SBU7720] INVALID FOR* More... Thrombocytopenia (HCC) [D69.6] INVALID FOR*08/21/2017 More... More... Constipation [K59.00] INVALID FOR* Anticoagulated on Coumadin [Z51.81, Z79.01] INVALID FOR*10/11/2013 Severe aortic stenosis [I35.0] INVALID FOR*01/19/2017 More... CHF (congestive heart failure), NYHA class III *INVALID FOR* More... More... C. difficile diarrhea [A04.72] INVALID FOR*10/11/2013 More... Gout, arthritis [M10.9] INVALID FOR* More... Leukocytosis [D72.829] INVALID FOR*02/16/2017 More... 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 Gait instability [R26.81] INVALID FOR* More... PAF (paroxysmal atrial fibrillation) (HCC) [I48*INVALID FOR* Diabetes mellitus (HCC) [E11.9] INVALID FOR* Encounter Status:Closed by RASHIDA ALLEN on 03/28/18 12 LEAD ELECTROCARDIOGRAM Observed: 03/27/2018 Status: F Source: NAM 2:08 PM [facility] REPOSITORY [facility] Cardiovascular Services [address] [place] [address] 12 Lead EKG 03/23/181926 MR#: [id number] Acct: [id number] Name: ELIZABETH HO Rep #: [id number] : 1950 67 From: Saji Hernandez MD Attending Dr: Status: DEP ER Ordering Dr: Kandi Chávez MD Date: 03/23/18 Location: ED Sex: F C Admitted: Test Reason : EDEMA Blood Pressure : / mmHG Vent. Rate : 063 BPM Atrial Rate : 063 BPM P-R Int : 196 ms QRS Dur : 096 ms QT Int : 488 ms P-R-T Axes : 036 082 064 degrees QTc Int : 499 ms Normal sinus rhythm Low voltage QRS Borderline ECG Confirmed by SAJI HERNANDEZ MD ([id number]), supervising editor trailer CAT CONKLIN ([id number]) on 03/27/2018 2:08:39 PM Referred By: KOBE Confirmed By:SAJI HERNANDEZ MD 03/27/18 1408 Date Saji Hernandez MD CC: Kandi Chávez MD; Williams Parekh MD Signed PROTIME W/INR Collected: 03/27/2018 Status: F Source: NAM [place] 7:20 AM [facility] REPOSITORY TYPE CODE TESTS RESULT OUT OF REFERENCE UNITS RANGE LAB L9200.1001 11.9-14.4 SEC High PROTIME ISTAT 55.8 Result Comment: Reference Range 11.9 - 14.4 LAB L9200.2000 High alert INR ISTAT 5.00 Result Comment: Critical Value > 3.5 Performed By: #### L9200.0000 #### [facility] Point of Care [address] [place], [place] [address] BASIC METABOLIC Collected: 03/27/2018 Status: F Source: NAM PROFILE (BMP) 7:15 AM [facility] REPOSITORY Order Comment: 136 TYPE CODE TESTS RESULT OUT OF RANGE REFERENCE UNITS LAB L501.0100 74-106 mg/dL Low GLU 52 Result Comment: Please note revised GLUCOSE reference range effective 2017. LAB L501.1000 7-18 mg/dL High BUN 66 LAB L501.1100 0.55-1.02 mg/dL High CREAT,SERUM 2.62 Result Comment: The validity of the calculated GFR AND GFRAA in patients over 70 years has not been determined. Clinical correlation is essential. LAB L501.1110 >60 mL/min Low EST GFR 19 Result Comment: Non- GFR Calc LAB L501.1115 >60 mL/min Low EST GFR - AA 23 Result Comment: GFR Calc LAB L501.1300 10-20 RATIO High BUN/CRE 25.2 LAB L501.2200 8.5-10.1 mg/dL Low CA 8.3 LAB L501.5300 136-145 mmol/L NA Normal 137 LAB L501.5600 3.5-5.1 mmol/L K Normal 4.6 LAB L501.5900 98-107 mmol/L Low CL 96 LAB L501.6100 21.0-32.0 mmol/L Normal CO2 23.0 LAB L501.6200 5-15 High GAP 18 Performed By: #### L500.2500 #### [facility] [address] [place], [place], [address] CBC-COMPLETE BLOOD CNT Collected: 03/24/2018 Status: F Source: NAM NO DIFF 6:30 AM [facility] REPOSITORY TYPE CODE TESTS RESULT OUT OF RANGE REFERENCE UNITS LAB L100.1000 4.4-11.0 K/mm3 Normal WBC 9.0 LAB L100.1200 4.2-5.4 M/mm3 Low RBC 2.83 LAB L100.1300 12.0-15.0 g/dl Low HGB 7.8 LAB L100.1400 37-47 % Low HCT 27.1 LAB L100.1500 81-99 fL Normal MCV 95.8 LAB L100.1600 27.0-32.0 pg Normal MCH 27.6 LAB L100.1700 32-36 g/gl Low MCHC 28.8 LAB L100.1810 11.6-14.6 % High RDW CV 15.6 LAB L100.1820 35.1-43.9 fl High RDW SD 54.3 LAB L100.1900 150-450 K/mm3 Normal PLT 208 LAB L100.2000 6.2-12.0 fl Normal MPV 9.4 Performed By: #### L100.0500 #### [facility] [address] [facility] [place], [address] EMERGENCY DEPARTMENT Observed: 03/23/2018 Status: F Source: [place] SUMMARY 10:56 PM [facility] REPOSITORY [facility] Medical Records Department [address] [place] [address] Emergency Department Summary 03/23/18 2045 MR#: [id number] Acct: [id number] Name: ELIZABETH HO Rep #: [id number] : 1950 67 From: Kandi Chávez MD PCP: Williams Parekh MD Status: DEP ER - ER Visit Summary Date of Service: 03/23/18 Chief Complaint: Edema, shortness of breath History of Present Illness: The patient is a 67 F sent in from the [facility] with increased edema and shortness of breath for the past several months. Patient has had dialysis in the past and nephrology was reported called today and told to send the patient in. Patient reports a 60 pound weight gain over the past 3 months. Physical Examination: Blood pressure is 121/56, temperature 97.3, heart rate 75, respiratory rate 25, pulse ox 93% on 2 L nasal cannula. Patient is sitting upright in bed. She is speaking full sentences and is in no acute distress. Head neck examination is unremarkable. Heart is with diminished breath sounds at the bases. Abdomen is soft, obese, nontender. Extremity examination does reveal diffuse edema to both arms and legs. She has her lower legs and wraps. Test Results: Portable chest x-ray is consistent with mild CHF. EKG is sinus at 63 with no sign of acute ischemia. CBC was normal white count with a hemoglobin of 8.1 which is at baseline. Chemistry studies reveal BUN 94 and a creatinine 2.45. This again is consistent with her baseline. Her INR is 2.3. Troponin is negative. BNP is elevated at 822. Emergency Department Course and Treatment: She is vital signs have remained stable throughout her ED stay. She is currently on Zaroxolyn and Bumex. I spoke with her primary care physician. He requested that the patient be given 80 mg of IV Lasix and he will review her diuretics tomorrow. Treatment Plan: [] Disposition: Discharge Impression: CHF This note was generated with SnapMD dictation software. It may contain incorrect words, spelling, and punctuation that were not noted in review of the chart prior to signing ED Disposition - Plan for ED Patient: Disposition: Home or Assisted Living Chief Complaint: Edema Instructions: ED CHF General Referrals: Michael Figueroa MD [STAFF PHYSICIAN] - As soon as possible What to do if you have Problems For any increased pain, shortness of breath, bleeding, nausea or vomiting, chest pain, or any unexpected problems, contact your Primary Care Provider. Call [facility] ([phone]) or report to the closest Emergency Room. Call 911 if necessary. 03/23/18 0074 <Electronically signed by Kandi Chávez MD> Date Kandi Chávez MD Cosigner Signature (If Indicated): Date CC: Williams Parekh MD DISCHARGE INSTRUCTION Observed: 03/23/2018 Status: F Source: NAM 8:46 PM [facility] REPOSITORY [facility] Medical Records Department [address] [place] [address] Discharge Instruction 03/23/182044 MR#: [id number] Acct: [id number] Name: ELIZABETH HO Rep #: [id number] : 1950 67 From: Kandi Chávez MD PCP: Williams Parekh MD Status: REG ER ED Disposition - Plan for ED Patient: Disposition: Home or Assisted Living Chief Complaint: Edema Instructions: ED CHF General Referrals: Michael Figueroa MD [STAFF PHYSICIAN] - As soon as possible What to do if you have Problems For any increased pain, shortness of breath, bleeding, nausea or vomiting, chest pain, or any unexpected problems, contact your Primary Care Provider. Call [facility] ([phone]) or report to the closest Emergency Room. Call 911 if necessary. 03/23/182045 <Electronically signed by Kandi Chávez MD> Date Kandi Chávez MD Cosigner Signature (If Indicated): Date CC: Williams Parekh MD CBC W/DIFF, AUTOMATED Collected: 03/23/2018 Status: F Source: NAM 7:43 PM [facility] REPOSITORY TYPE CODE TESTS RESULT OUT OF RANGE REFERENCE UNITS LAB L100.1000 4.4-11.0 K/mm3 Normal WBC 10.5 LAB L100.1200 4.2-5.4 M/mm3 Low RBC 2.90 LAB L100.1300 12.0-15.0 g/dl Low HGB 8.1 LAB L100.1400 37-47 % Low HCT 27.6 LAB L100.1500 81-99 fL Normal MCV 95.2 LAB L100.1600 27.0-32.0 pg Normal MCH 27.9 LAB L100.1700 32-36 g/gl Low MCHC 29.3 LAB L100.1810 11.6-14.6 % High RDW CV 15.6 LAB L100.1820 35.1-43.9 fl High RDW SD 54.3 LAB L100.1900 150-450 K/mm3 Normal PLT 229 LAB L100.2000 6.2-12.0 fl Normal MPV 9.6 LAB L100.2100 47-70 % High NEUT% 81.3 LAB L100.2200 19-41 % Low LY% 3.4 LAB L100.2300 0-10 % High MONO% 13.2 LAB L100.2400 0-5 % Normal EO% 0.9 LAB L100.2500 0-1 % Normal BASO% 0.2 LAB L100.2550 0.0-0.9 % High IM GRAN % 1.000 Result Comment: IG% - Immature Granulocytes (promyelocytes, myelocytes and metamyelocytes) > 1% indicates that a LEFT SHIFT is Present. LAB L100.2620 2.0-7.7 X10 3/uL High Absolute Neut 8.5 LAB L100.2720 0.83-4.51 X10 3/ul Low Absolute Lymph 0.36 Performed By: #### L100.0100 #### [facility] [address] [facility] [place], [place], [address] PROTHROMBIN TIME W/INR Collected: 03/23/2018 Status: F Source: [place] 7:43 PM [facility] REPOSITORY TYPE CODE TESTS RESULT OUT OF RANGE REFERENCE UNITS LAB L300.4150 11.7-14.9 SECONDS High PROTIME 25.8 LAB L300.4200 Normal INR 2.3 Performed By: #### L300.3900 #### [facility] [address] [facility] [place], [address] BASIC METABOLIC Collected: 03/23/2018 Status: F Source: [place] PROFILE (BMP) 7:43 PM [facility] REPOSITORY TYPE CODE TESTS RESULT OUT OF RANGE REFERENCE UNITS LAB L501.0100 74-106 mg/dL High GLU 158 Result Comment: Fasting Glucose result greater than or equal to 126 mg/dL suggests DIABETES MELLITUS per A.D.A. criteria. Please note revised GLUCOSE reference range effective 2017. LAB L501.1000 7-18 mg/dL High BUN 94 LAB L501.1100 0.55-1.02 mg/dL High CREAT,SERUM 2.45 Result Comment: The validity of the calculated GFR AND GFRAA in patients over 70 years has not been determined. Clinical correlation is essential. LAB L501.1110 >60 mL/min Low EST GFR 21 Result Comment: Non- GFR Calc LAB L501.1115 >60 mL/min Low EST GFR - AA 25 Result Comment: GFR Calc LAB L501.1255 ml/min Normal Estimated CRCL 20.29 LAB L501.1300 10-20 RATIO High BUN/CRE 38.4 LAB L501.2200 8.5-10 mg/dL Low .1 CA 8.2 LAB L501.5300 136-14 mmol/L Normal 5 NA 137 LAB L501.5600 3.5-5. mmol/L Normal 1 K 4.1 LAB L501.5900 98-107 mmol/L Low CL 95 LAB L501.6100 21.0-3 mmol/L High 2.0 CO2 35.0 LAB L501.6200 5-15 Normal GAP 7 Performed By: #### L500.2500, L501.4010 #### [facility] [address] [facility] [place], [place], [address] TROPONIN-I Collected: 03/23/2018 Status: F Source: [place] 7:43 PM [facility] REPOSITORY TYPE CODE TESTS RESULT OUT OF RANGE REFERENCE UNITS LAB L501.4010 <0.045 ng/mL Normal < 0.015 TROPONIN-I Result Comment: TROPONIN-I EXPECTED VALUES <0.045 Negative 0.045 - 0.590 Consistent with Cardiac Damage > OR = 0.600 Critical Value Not every elevated troponin is indicative of [place]. These values should be used with clinical judgement in examining the patient's clinical picture for diagnosis. To establish a diagnosis of [place] versus myocardial injury, there must be a demonstrated rise and/or fall in the troponin values, in addition to ischemic symptoms, EKG changes, new regional wall motion abnormality, and/or angiographical evidence. PLEASE NOTE: REFERENCE RANGES EDITED 17 Performed By: #### L500.2500, L501.4010 #### [facility] [address] [place], [place], [address] BNP,B-TYPE NATRIURETIC Collected: 03/23/2018 Status: F Source: [place] PEPTIDE 7:43 PM [facility] REPOSITORY TYPE CODE TESTS RESULT OUT OF RANGE REFERENCE UNITS LAB L503.6620 0-100 pg/mL High B-TYPE 822.6 LILY PEP Performed By: #### L503.6620 #### [facility] [address] [place], [address] CHEST 1 VIEW Observed: 03/23/2018 Status: F Source: NAM (PORTABLE) 7:14 PM [facility] REPOSITORY [facility] Imaging Services [address] [place] [address] Chest 1 View (Portable) MR#: [id number] Acct: [id number] Name: ELIZABETH HO Rep #: [id number] : 1950 F 67 From: Ze Galvan DO PCP: Williams Parekh MD Status: REG ER Study: Chest 1 View (Portable) Date of Exam: 03/23/18 Exam# [id number] Ordering Dr: Kandi Chávez MD STUDY: X-RAY CHEST REASON FOR EXAM: Female, 67 years old. Dyspnea. Shortness of breath. 60 pound weight gain over the last 3 months. Generalized edema. TECHNIQUE: Single AP portable view of the chest. COMPARISON: September 17, 2017. FINDINGS: Telemetry wires overlie the chest. There is a mildly decreased inspiratory effort. There is perihilar interstitial prominence. Left pleural effusion cannot be ruled out. The heart is mildly enlarged. There is a stable left-sided cardiac pacemaker/ICD. Normal mediastinum. There is central vascular prominence. There is atherosclerotic calcification of the aortic arch with tortuosity. The thoracic spine is obscured by the mediastinum. There is degenerative osteoarthritis of the bilateral shoulders. There is no demonstrated abnormality of the visualized soft tissue structures of the upper abdomen. RAD/Chest 1 View (Portable) IMPRESSION: Mild CHF. Electronically Signed: Ze Galvan DO at 19:35 EST Tel [phone], Service support , CC: Kandi Chávez MD; Williams Parekh MD Porcelain Turner: Signed CBC-COMPLETE BLOOD CNT Collected: 03/22/2018 Status: F Source: NAM NO DIFF 6:35 AM [facility] REPOSITORY TYPE CODE TESTS RESULT OUT OF RANGE REFERENCE UNITS LAB L100.1000 4.4-11.0 K/mm3 Normal WBC 7.9 LAB L100.1200 4.2-5.4 M/mm3 Low RBC 2.80 LAB L100.1300 12.0-15.0 g/dl Low HGB 7.8 LAB L100.1400 37-47 % Low HCT 27.6 LAB L100.1500 81-99 fL Normal MCV 98.6 LAB L100.1600 27.0-32.0 pg Normal MCH 27.9 LAB L100.1700 32-36 g/gl Low MCHC 28.3 LAB L100.1810 11.6-14.6 % High RDW CV 15.1 LAB L100.1820 35.1-43.9 fl High RDW SD 51.3 LAB L100.1900 150-450 K/mm3 Normal PLT 212 LAB L100.2000 6.2-12.0 fl Normal MPV 10.2 Performed By: #### L100.0500 #### [facility] [address] [place], [place], [address] BASIC METABOLIC Collected: 03/22/2018 Status: F Source: NAM PROFILE (BMP) 6:35 AM [facility] REPOSITORY TYPE CODE TESTS RESULT OUT OF RANGE REFERENCE UNITS LAB L501.0100 74-106 mg/dL Low GLU 51 Result Comment: Please note revised GLUCOSE reference range effective 2017. LAB L501.1000 7-18 mg/dL High BUN 87 LAB L501.1100 0.55-1.02 mg/dL High CREAT,SERUM 2.22 Result Comment: The validity of the calculated GFR AND GFRAA in patients over 70 years has not been determined. Clinical correlation is essential. LAB L501.1110 >60 mL/min Low EST GFR 23 Result Comment: Non- GFR Calc LAB L501.1115 >60 mL/min Low EST GFR - AA 28 Result Comment: GFR Calc LAB L501.1300 10-20 RATIO High BUN/CRE 39.2 LAB L501.2200 8.5-10.1 mg/dL CA Normal 8.5 LAB L501.5300 136-145 mmol/L NA Normal 140 LAB L501.5600 3.5-5.1 mmol/L K Normal 3.8 LAB L501.5900 98-107 mmol/L Low CL 97 LAB L501.6100 21.0-32.0 mmol/L High CO2 36.0 LAB L501.6200 5-15 Normal GAP 7 Performed By: #### L500.2500 #### [facility] [address] [place], [address] PROGRESS Observed: 03/21/2018 Status: COMPLETED Source: [place] 8:55 AM [facility] REPOSITORY HNO ID: [id number] Author: Makeda Curtis Cma Service: (none) Author Type: (none) Type: Progress Notes Filed: 03/21/2018 8:57 AM Note Text: Left message for to return call #[phone] Patient still residing at [facility] CBC-COMPLETE BLOOD CNT Collected: 03/20/2018 Status: F Source: NAM NO DIFF 5:35 AM [facility] REPOSITORY Order Comment: 136 TYPE CODE TESTS RESULT OUT OF RANGE REFERENCE UNITS LAB L100.1000 4.4-11.0 K/mm3 Normal WBC 10.3 LAB L100.1200 4.2-5.4 M/mm3 Low RBC 2.74 LAB L100.1300 12.0-15.0 g/dl Low HGB 7.9 LAB L100.1400 37-47 % Low HCT 27.5 LAB L100.1500 81-99 fL High MCV 100.4 LAB L100.1600 27.0-32.0 pg Normal MCH 28.8 LAB L100.1700 32-36 g/gl Low MCHC 28.7 LAB L100.1810 11.6-14.6 % High RDW CV 15.2 LAB L100.1820 35.1-43.9 fl High RDW SD 52.7 LAB L100.1900 150-450 K/mm3 Normal PLT 191 LAB L100.2000 6.2-12.0 fl Normal MPV 10.8 Performed By: #### L100.0500 #### [facility] [address] [place], [place], [address] BASIC METABOLIC Collected: 03/20/2018 Status: F Source: NAM PROFILE (BMP) 5:35 AM [facility] REPOSITORY Order Comment: 136 TYPE CODE TESTS RESULT OUT OF RANGE REFERENCE UNITS LAB L501.0100 74-106 mg/dL High GLU 131 Result Comment: Fasting Glucose result greater than or equal to 126 mg/dL suggests DIABETES MELLITUS per A.D.A. criteria. Please note revised GLUCOSE reference range effective 2017. LAB L501.1000 7-18 mg/dL High BUN 75 LAB L501.1100 0.55-1.02 mg/dL High CREAT,SERUM 2.29 Result Comment: The validity of the calculated GFR AND GFRAA in patients over 70 years has not been determined. Clinical correlation is essential. LAB L501.1110 >60 mL/min Low EST GFR 22 Result Comment: Non- GFR Calc LAB L501.1115 >60 mL/min Low EST GFR - AA 27 Result Comment: GFR Calc LAB L501.1300 10-20 RATIO High BUN/CRE 32.8 LAB L501.2200 8.5-10.1 mg/dL Low CA 8.2 LAB L501.5300 136-145 mmol/L NA Normal 136 LAB L501.5600 3.5-5.1 mmol/L K Normal 4.8 Result Comment: Slight Hemolysis, Result may be falsely increased. LAB L501.5900 98-107 mmol/L Low CL 97 LAB L501.6100 21.0-32.0 mmol/L High CO2 33.0 LAB L501.6200 5-15 Normal GAP 6 Performed By: #### L500.2500 #### [facility] [address] [place], [place], [address] PROTHROMBIN TIME W/INR Collected: 03/20/2018 Status: F Source: [place] 5:35 AM [facility] REPOSITORY Order Comment: 136 TYPE CODE TESTS RESULT OUT OF RANGE REFERENCE UNITS LAB L300.4150 11.7-14.9 SECONDS High PROTIME 25.0 LAB L300.4200 Normal INR 2.3 Performed By: #### L300.3900 #### [facility] [address] [place], [address] PROTIME W/INR Collected: 03/19/2018 Status: F Source: [place] FINGER[place]ICK 6:15 AM [facility] REPOSITORY TYPE CODE TESTS RESULT OUT OF REFERENCE UNITS RANGE LAB L9200.1001 11.9-14.4 SEC High PROTIME ISTAT 26.9 Result Comment: Reference Range 11.9 - 14.4 LAB L9200.2000 Normal INR ISTAT 2.30 Result Comment: Critical Value > 3.5 Performed By: #### L9200.0000 #### [facility] Point of Care [address] [place] [address] PROTHROMBIN TIME W/INR Collected: 03/16/2018 Status: F Source: [place] 10:45 AM [facility] REPOSITORY Order Comment: RM: 136 TYPE CODE TESTS RESULT OUT OF REFERENCE UNITS RANGE LAB L300.4150 11.7-14.9 SECONDS High PROTIME 39.1 LAB L300.4200 High alert INR 4.0 Result Comment: CRITICAL VALUE VERIFIED. CALLED TO NIC [address] [facility] [address] [facility] [place] 03/16/18 1249 Cyndie Lanier. RESULTS READ BACK BY SAME . Performed By: #### L300.3900 #### [facility] [address] [place], [address] COMPREHENSIVE METABOLIC Collected: 03/16/2018 Status: F Source: [facility] 10:45 AM [facility] REPOSITORY Order Comment: RM: 136 TYPE CODE TESTS RESULT OUT OF RANGE REFERENCE UNITS LAB L501.0100 74-106 mg/dL Low GLU 52 Result Comment: Please note revised GLUCOSE reference range effective 2017. LAB L501.1000 7-18 mg/dL High BUN 70 LAB L501.1100 0.55-1.02 mg/dL High CREAT,SERUM 2.36 Result Comment: The validity of the calculated GFR AND GFRAA in patients over 70 years has not been determined. Clinical correlation is essential. LAB L501.1110 >60 mL/min Low EST GFR 22 Result Comment: Non- GFR Calc LAB L501.1115 >60 mL/min Low EST GFR - AA 26 Result Comment: GFR Calc LAB L501.1300 10-20 RATIO High BUN/CRE 29.7 LAB L501.1500 6.4-8.2 g/dL Low T PROT 6.3 LAB L501.1800 3.2-5.0 g/dL Low ALB 2.4 LAB L501.1950 2.2-4.2 g/dL Normal GLOB 3.9 LAB L501.2000 0.9-2.4 RATIO Low A/G 0.6 LAB L501.2200 8.5-10.1 mg/dL Low CA 8.3 LAB L501.4100 15-37 U/L Low AST 11 LAB L501.4305 45-117 U/L Normal ALK P 80 LAB L501.4405 13-56 U/L Normal ALT 18 LAB L501.4600 0.20-1.00 mg/dL T Normal BILI 0.50 LAB L501.5300 136-145 mmol/L NA Normal 141 LAB L501.5600 3.5-5.1 mmol/L K Normal 4.3 LAB L501.5900 98-107 mmol/L Low CL 97 LAB L501.6100 21.0-32.0 mmol/L High CO2 34.0 LAB L501.6200 5-15 Normal GAP 10 Performed By: #### L500.4050 #### [facility] [address] [place], [place], [id number] PROTIME W/INR Collected: 03/16/2018 Status: F Source: [place] 5:37 AM [facility] REPOSITORY TYPE CODE TESTS RESULT OUT OF REFERENCE UNITS RANGE LAB L9200.1001 11.9-14.4 SEC High PROTIME ISTAT 48.4 Result Comment: Reference Range 11.9 - 14.4 LAB L9200.2000 High alert INR ISTAT 4.30 Result Comment: Critical Value > 3.5 Performed By: #### L9200.0000 #### [facility] Point of Care [address], [place] [id number] PROGRESS Observed: 03/14/2018 Status: COMPLETED Source: ITA 8:57 AM [facility] REPOSITORY HNO ID: [id number] Author: Makeda Ever Valle Service: (none) Author Type: (none) Type: Progress Notes Filed: 03/14/2018 8:57 AM Note Text: No discharge plans in place at this time. PROTHROMBIN TIME W/INR Collected: 03/14/2018 Status: F Source: NAM 6:05 AM [facility] REPOSITORY Order Comment: 136 TYPE CODE TESTS RESULT OUT OF REFERENCE UNITS RANGE LAB L300.4150 11.7-14.9 SECONDS High PROTIME 40.9 LAB L300.4200 High alert INR 4.2 Result Comment: CRITICAL VALUE VERIFIED. CALLED TO GWEN FRANCISCO 03/14/18 0935 Reji Taylor. RESULTS READ BACK BY SAME. Performed By: #### L300.3900 #### [facility] [address] [facility]. [place], [place], [id number] CBC-COMPLETE BLOOD CNT Collected: 03/12/2018 Status: F Source: NAM NO DIFF 5:25 AM [facility] REPOSITORY Order Comment: ROOM 136 TYPE CODE TESTS RESULT OUT OF RANGE REFERENCE UNITS LAB L100.1000 4.4-11.0 K/mm3 Normal WBC 8.2 LAB L100.1200 4.2-5.4 M/mm3 Low RBC 2.87 LAB L100.1300 12.0-15.0 g/dl Low HGB 8.2 LAB L100.1400 37-47 % Low HCT 28.8 LAB L100.1500 81-99 fL High MCV 100.3 LAB L100.1600 27.0-32.0 pg Normal MCH 28.6 LAB L100.1700 32-36 g/gl Low MCHC 28.5 LAB L100.1810 11.6-14.6 % High RDW CV 15.3 LAB L100.1820 35.1-43.9 fl High RDW SD 53.5 LAB L100.1900 150-450 K/mm3 Normal PLT 248 LAB L100.2000 6.2-12.0 fl Normal MPV 10.4 Performed By: #### L100.0500 #### [facility] [address] [place], [place], [id number] BASIC METABOLIC Collected: 03/12/2018 Status: F Source: NAM PROFILE (BMP) 5:25 AM [facility] REPOSITORY Order Comment: ROOM 136 TYPE CODE TESTS RESULT OUT OF RANGE REFERENCE UNITS LAB L501.0100 74-106 mg/dL Low GLU 51 Result Comment: Please note revised GLUCOSE reference range effective 2017. LAB L501.1000 7-18 mg/dL High BUN 54 LAB L501.1100 0.55-1.02 mg/dL High CREAT,SERUM 1.98 Result Comment: The validity of the calculated GFR AND GFRAA in patients over 70 years has not been determined. Clinical correlation is essential. LAB L501.1110 >60 mL/min Low EST GFR 27 Result Comment: Non- GFR Calc LAB L501.1115 >60 mL/min Low EST GFR - AA 32 Result Comment: GFR Calc LAB L501.1300 10-20 RATIO High BUN/CRE 27.3 LAB L501.2200 8.5-10.1 mg/dL Low CA 8.4 LAB L501.5300 136-145 mmol/L NA Normal 143 LAB L501.5600 3.5-5.1 mmol/L K Normal 3.5 LAB L501.5900 98-107 mmol/L CL Normal 103 LAB L501.6100 21.0-32.0 mmol/L High CO2 35.0 LAB L501.6200 5-15 Normal GAP 5 Performed By: #### L500.2500 #### [facility] [address] [place], [place], [address] PROTHROMBIN TIME W/INR Collected: 03/12/2018 Status: F Source: NAM 5:25 AM [facility] REPOSITORY Order Comment: ROOM 136 TYPE CODE TESTS RESULT OUT OF REFERENCE UNITS RANGE LAB L300.4150 11.7-14.9 SECONDS High PROTIME 43.9 LAB L300.4200 High alert INR 4.6 Result Comment: CRITICAL VALUE VERIFIED. CALLED TO JACK FRANCISCO 03/12/18 0841 Reji Taylor. RESULTS READ BACK BY SAME. Performed By: #### L300.3900 #### [facility] [address] [place], [place], [address] PROGRESS Observed: 03/07/2018 Status: COMPLETED Source: [place] 9:54 AM [facility] REPOSITORY HNO ID: [id number] Author: Makeda Curtis Cma Service: (none) Author Type: (none) Type: Progress Notes Filed: 03/07/2018 9:54 AM Note Text: No discharge plans in place at this time. BASIC METABOLIC Collected: 03/06/2018 Status: F Source: NAM PROFILE (BMP) 6:25 AM [facility] REPOSITORY Order Comment: 136 TYPE CODE TESTS RESULT OUT OF RANGE REFERENCE UNITS LAB L501.0100 74-106 mg/dL Low GLU 66 Result Comment: Please note revised GLUCOSE reference range effective 2017. LAB L501.1000 7-18 mg/dL High BUN 62 LAB L501.1100 0.55-1.02 mg/dL High CREAT,SERUM 1.78 Result Comment: The validity of the calculated GFR AND GFRAA in patients over 70 years has not been determined. Clinical correlation is essential. LAB L501.1110 >60 mL/min Low EST GFR 30 Result Comment: Non- GFR Calc LAB L501.1115 >60 mL/min Low EST GFR - AA 36 Result Comment: GFR Calc LAB L501.1300 10-20 RATIO High BUN/CRE 34.8 LAB L501.2200 8.5-10.1 mg/dL CA Normal 8.5 LAB L501.5300 136-145 mmol/L NA Normal 141 LAB L501.5600 3.5-5.1 mmol/L High K 5.9 LAB L501.5900 98-107 mmol/L CL Normal 104 LAB L501.6100 21.0-32.0 mmol/L Normal CO2 31.0 LAB L501.6200 5-15 Normal GAP 6 Performed By: #### L500.2500 #### [facility] [address] [place], [address] CBC-COMPLETE BLOOD CNT Collected: 03/06/2018 Status: F Source: [place] NO DIFF 6:25 AM [facility] REPOSITORY TYPE CODE TESTS RESULT OUT OF RANGE REFERENCE UNITS LAB L100.1000 4.4-11.0 K/mm3 Normal WBC 7.9 LAB L100.1200 4.2-5.4 M/mm3 Low RBC 2.82 LAB L100.1300 12.0-15.0 g/dl Low HGB 8.1 LAB L100.1400 37-47 % Low HCT 28.4 LAB L100.1500 81-99 fL High MCV 100.7 LAB L100.1600 27.0-32.0 pg Normal MCH 28.7 LAB L100.1700 32-36 g/gl Low MCHC 28.5 LAB L100.1810 11.6-14.6 % High RDW CV 14.7 LAB L100.1820 35.1-43.9 fl High RDW SD 51.7 LAB L100.1900 150-450 K/mm3 Normal PLT 241 LAB L100.2000 6.2-12.0 fl Normal MPV 10.5 Performed By: #### L100.0500 #### [facility] [address] [place], [address] PROTIME W/INR Collected: 03/02/2018 Status: F Source: NAM [place] 5:52 AM [facility] REPOSITORY TYPE CODE TESTS RESULT OUT OF REFERENCE UNITS RANGE LAB L9200.1001 11.9-14.4 SEC High PROTIME ISTAT 26.7 Result Comment: Reference Range 11.9 - 14.4 LAB L9200.2000 Normal INR ISTAT 2.30 Result Comment: Critical Value > 3.5 Performed By: #### L9200.0000 #### [facility] Point of Care [address], [place] [address] PROGRESS Observed: 03/01/2018 Status: COMPLETED Source: [place] 10:00 AM [facility] REPOSITORY HNO ID: [id number] Author: Makeda Curtis Cma Service: (none) Author Type: (none) Type: Progress Notes Filed: 03/01/2018 10:01 AM Note Text: No discharge plans in place at this time. CBC-COMPLETE BLOOD CNT Collected: 02/28/2018 Status: F Source: NAM NO DIFF 6:20 AM [facility] REPOSITORY Order Comment: RM 136 TYPE CODE TESTS RESULT OUT OF RANGE REFERENCE UNITS LAB L100.1000 4.4-11.0 K/mm3 Normal WBC 7.9 LAB L100.1200 4.2-5.4 M/mm3 Low RBC 2.81 LAB L100.1300 12.0-15.0 g/dl Low HGB 8.3 LAB L100.1400 37-47 % Low HCT 28.2 LAB L100.1500 81-99 fL High MCV 100.4 LAB L100.1600 27.0-32.0 pg Normal MCH 29.5 LAB L100.1700 32-36 g/gl Low MCHC 29.4 LAB L100.1810 11.6-14.6 % High RDW CV 14.9 LAB L100.1820 35.1-43.9 fl High RDW SD 52.9 LAB L100.1900 150-450 K/mm3 Normal PLT 179 LAB L100.2000 6.2-12.0 fl Normal MPV 10.8 Performed By: #### L100.0500 #### [facility] [address] [place], [place], [address] PROGRESS Observed: 02/21/2018 Status: COMPLETED Source: [place] 9:23 AM [facility] REPOSITORY HNO ID: [id number] Author: Makeda Curtis Cma Service: (none) Author Type: (none) Type: Progress Notes Filed: 02/21/2018 9:23 AM Note Text: No plans in place at this time. PROTHROMBIN TIME W/INR Collected: 02/20/2018 Status: F Source: NAM 5:50 AM [facility] REPOSITORY Order Comment: ROOM 136 TYPE CODE TESTS RESULT OUT OF RANGE REFERENCE UNITS LAB L300.4150 11.7-14.9 SECONDS High PROTIME 25.6 LAB L300.4200 Normal INR 2.3 Performed By: #### L300.3900 #### [facility] [address] [place] [place], [address] BASIC METABOLIC Collected: 02/20/2018 Status: F Source: NAM PROFILE (BMP) 5:50 AM [facility] REPOSITORY Order Comment: ROOM 136 TYPE CODE TESTS RESULT OUT OF RANGE REFERENCE UNITS LAB L501.0100 74-106 mg/dL High GLU 187 Result Comment: Fasting Glucose result greater than or equal to 126 mg/dL suggests DIABETES MELLITUS per A.D.A. criteria. Please note revised GLUCOSE reference range effective 2017. LAB L501.1000 7-18 mg/dL High BUN 65 LAB L501.1100 0.55-1.02 mg/dL High CREAT,SERUM 1.75 Result Comment: The validity of the calculated GFR AND GFRAA in patients over 70 years has not been determined. Clinical correlation is essential. LAB L501.1110 >60 mL/min Low EST GFR 31 Result Comment: Non- GFR Calc LAB L501.1115 >60 mL/min Low EST GFR - AA 37 Result Comment: GFR Calc LAB L501.1300 10-20 RATIO High BUN/CRE 37.1 LAB L501.2200 8.5-10.1 mg/dL Low CA 8.2 LAB L501.5300 136-145 mmol/L NA Normal 143 LAB L501.5600 3.5-5.1 mmol/L K Normal 3.8 LAB L501.5900 98-107 mmol/L CL Normal 102 LAB L501.6100 21.0-32.0 mmol/L High CO2 34.0 LAB L501.6200 5-15 Normal GAP 7 Performed By: #### L500.2500 #### [facility] [address] [place], [address] CBC-COMPLETE BLOOD CNT Collected: 02/20/2018 Status: F Source: [place] NO DIFF 5:50 AM [facility] REPOSITORY Order Comment: ROOM 136 TYPE CODE TESTS RESULT OUT OF RANGE REFERENCE UNITS LAB L100.1000 4.4-11.0 K/mm3 Normal WBC 7.0 LAB L100.1200 4.2-5.4 M/mm3 Low RBC 2.84 LAB L100.1300 12.0-15.0 g/dl Low HGB 8.2 LAB L100.1400 37-47 % Low HCT 27.9 LAB L100.1500 81-99 fL Normal MCV 98.2 LAB L100.1600 27.0-32.0 pg Normal MCH 28.9 LAB L100.1700 32-36 g/gl Low MCHC 29.4 LAB L100.1810 11.6-14.6 % High RDW CV 15.5 LAB L100.1820 35.1-43.9 fl High RDW SD 55.5 LAB L100.1900 150-450 K/mm3 Normal PLT 194 LAB L100.2000 6.2-12.0 fl Normal MPV 10.6 Performed By: #### L100.0500 #### [facility] [address] [place], [place], [address] HEMOGLOBIN A1C Collected: 02/20/2018 Status: F Source: NAM 5:50 AM [facility] REPOSITORY TYPE CODE TESTS RESULT OUT OF RANGE REFERENCE UNITS LAB L501.9985 4.2-6.3 % High HGB A1C 7.3 Performed By: #### L501.9985 #### [facility] [address] [place], [address] PROGRESS Observed: 02/15/2018 Status: COMPLETED Source: [place] 9:13 AM [facility] REPOSITORY HNO ID: [id number] Author: Makeda Curtis Cma Service: (none) Author Type: (none) Type: Progress Notes Filed: 02/15/2018 9:15 AM Note Text: No discharge plans in place at this time. CBC-COMPLETE BLOOD CNT Collected: 02/14/2018 Status: F Source: NAM NO DIFF 8:20 AM [facility] REPOSITORY TYPE CODE TESTS RESULT OUT OF RANGE REFERENCE UNITS LAB L100.1000 4.4-11.0 K/mm3 Normal WBC 7.1 LAB L100.1200 4.2-5.4 M/mm3 Low RBC 2.87 LAB L100.1300 12.0-15.0 g/dl Low HGB 8.6 LAB L100.1400 37-47 % Low HCT 28.4 LAB L100.1500 81-99 fL Normal MCV 99.0 LAB L100.1600 27.0-32.0 pg Normal MCH 30.0 LAB L100.1700 32-36 g/gl Low MCHC 30.3 LAB L100.1810 11.6-14.6 % Normal RDW CV 14.6 LAB L100.1820 35.1-43.9 fl High RDW SD 49.8 LAB L100.1900 150-450 K/mm3 Normal PLT 201 LAB L100.2000 6.2-12.0 fl Normal MPV 10.5 Performed By: #### L100.0500 #### [facility] [address] [place], [address] PROTIME W/INR Collected: 02/09/2018 Status: F Source: NAM [place] 7:01 AM [facility] REPOSITORY TYPE CODE TESTS RESULT OUT OF REFERENCE UNITS RANGE LAB L9200.1001 11.9-14.4 SEC High PROTIME ISTAT 31.8 Result Comment: Reference Range 11.9 - 14.4 LAB L9200.2000 Normal INR ISTAT 2.80 Result Comment: Critical Value > 3.5 Performed By: #### L9200.0000 #### [facility] Point of Care [address] [place], [place] [address] CBC-COMPLETE BLOOD CNT Collected: 02/08/2018 Status: F Source: NAM NO DIFF 7:05 AM [facility] REPOSITORY TYPE CODE TESTS RESULT OUT OF RANGE REFERENCE UNITS LAB L100.1000 4.4-11.0 K/mm3 Normal WBC 9.8 LAB L100.1200 4.2-5.4 M/mm3 Low RBC 3.12 LAB L100.1300 12.0-15.0 g/dl Low HGB 9.0 LAB L100.1400 37-47 % Low HCT 29.2 LAB L100.1500 81-99 fL Normal MCV 93.6 LAB L100.1600 27.0-32.0 pg Normal MCH 28.8 LAB L100.1700 32-36 g/gl Low MCHC 30.8 LAB L100.1810 11.6-14.6 % High RDW CV 14.7 LAB L100.1820 35.1-43.9 fl High RDW SD 49.6 LAB L100.1900 150-450 K/mm3 Normal PLT 228 LAB L100.2000 6.2-12.0 fl Normal MPV 10.2 Performed By: #### L100.0500 #### [facility] [address] [place], [place], [id number] BASIC METABOLIC Collected: 02/08/2018 Status: F Source: NAM PROFILE (BMP) 7:05 AM [facility] REPOSITORY TYPE CODE TESTS RESULT OUT OF RANGE REFERENCE UNITS LAB L501.0100 74-106 mg/dL Normal GLU 105 Result Comment: Fasting Glucose result from 100 to 125 mg/dL suggests IMPAIRED HOMEOSTASIS per A.D.A. criteria. Please note revised GLUCOSE reference range effective 2017. LAB L501.1000 7-18 mg/dL High BUN 57 LAB L501.1100 0.55-1.02 mg/dL High CREAT,SERUM 2.32 Result Comment: The validity of the calculated GFR AND GFRAA in patients over 70 years has not been determined. Clinical correlation is essential. LAB L501.1110 >60 mL/min Low EST GFR 22 Result Comment: Non- GFR Calc LAB L501.1115 >60 mL/min Low EST GFR - AA 27 Result Comment: GFR Calc LAB L501.1300 10-20 RATIO High BUN/CRE 24.6 LAB L501.2200 8.5-10.1 mg/dL Low CA 8.3 LAB L501.5300 136-145 mmol/L NA Normal 137 LAB L501.5600 3.5-5.1 mmol/L Low K 3.4 LAB L501.5900 98-107 mmol/L CL Normal 100 LAB L501.6100 21.0-32.0 mmol/L Normal CO2 32.0 LAB L501.6200 5-15 Normal GAP 5 Performed By: #### L500.2500 #### [facility] [address] [place], [address] PROGRESS Observed: 02/07/2018 Status: COMPLETED Source: [place] 4:34 PM [facility] REPOSITORY HNO ID: [id number] Author: Rashida Allen Service: (none) Author Type: Registered Nurse Type: Progress Notes Filed: 02/07/2018 4:47 PM Note Text: PRIMARY CARE COORDINATION FOLLOW-UP NOTE Provider Action/FYI Pt went to [facility] with hip pain and debility after her appt her in Dec. She is currently in rehab at the [facility] and will be moving into the [place] section there after rehab. Patient identified by name and date of . YES Spoke to patient Summary: Pt is in the [facility]. She will be moving to [place] there as well. She will call when she is out for continuing care. Concerns: Her hip pain is lessening with therapy. She was in [facility] 3 days after her appt with pain and went to the [facility] for rehab. Head Of Quality plan for next outreach: Will follow up upon D/C from [facility] Rashida Allen RN Ambulatory Administrative Services Assistant Internal Medicine [place] [facility] February 07, 2018 PROTIME W/INR Collected: 02/07/2018 Status: F Source: NAM [place] 10:23 AM [facility] REPOSITORY TYPE CODE TESTS RESULT OUT OF REFERENCE UNITS RANGE LAB L9200.1001 11.9-14.4 SEC High PROTIME ISTAT 35.5 Result Comment: Reference Range 11.9 - 14.4 LAB L9200.2000 Normal INR ISTAT 3.10 Result Comment: Critical Value > 3.5 Performed By: #### L9200.0000 #### [facility] Point of Care [address] [place] [address] CNPTOUTREACH Observed: 02/07/2018 Status: COMPLETED Source: [place] 12:00 AM [facility] REPOSITORY Patient Outreach (INTM[facility]) ELIZABETH HO ([id number]) 1950 F Date Time Provider Department 02/07/18 RASHIDA SALDANA During your visit today, we recorded the following information about you: Rashida Lovell RN 02/07/2018 4:47 PM Signed PRIMARY CARE COORDINATION FOLLOW-UP NOTE Provider Action/FYI Pt went to [facility] with hip pain and debility after her appt her in Dec. She is currently in rehab at the [facility] and will be moving into the [place] section there after rehab. Patient identified by name and date of . YES Spoke to patient Summary: Pt is in the [facility]. She will be moving to [place] there as well. She will call when she is out for continuing care. Concerns: Her hip pain is lessening with therapy. She was in [facility] 3 days after her appt with pain and went to the [facility] for rehab. Head Of Quality plan for next outreach: Will follow up upon D/C from [facility] Rashida Allen RN Ambulatory Administrative Services Assistant Internal Medicine [place] [facility] February 07, 2018 [facility] 02/15/2018 9:15 AM Signed No discharge plans in place at this time. [facility] 02/21/2018 9:23 AM Signed No plans in place at this time. [facility] 03/01/2018 10:01 AM Signed No discharge plans in place at this time. [facility] 03/07/2018 9:54 AM Signed No discharge plans in place at this time. [facility] 03/14/2018 8:57 AM Signed No discharge plans in place at this time. [facility] 03/21/2018 8:57 AM Signed Left message for to return call #[phone] Patient still residing at [facility] 03/28/2018 8:41 AM Signed I spoke with Mony at [facility] and she states that Elizabeth yesterday. Allergies As of Date: 02/07/2018 Noted Allergy Reaction AUGMENTIN (AMOXICILLIN-POT CLAVUL*2013 2 - Rash SULFA (SULFONAMIDE ANTIBIOTICS) 01/10/2005 4 - Hives VANCOMYCIN 08/26/2013 10 - Anaphylaxis Comments: Per pharmacist. Patient tolerating PO Vancomycin. on 01/07 pt in [facility] and had ld syndrome rxn to [facility]. Date Reviewed: 12/29/2017 Reviewed by: Maria Esther Campbell LPN - Fully Assessed Reason for Visit: Transition Of Care [4074] Prescriptions as of 02/07/2018 Sig: TRAMADOL 50 MG TABLET Take 50 mg by mouth every 6 h* ONDANSETRON 4 MG DISINTEGRATI* Take 1 tablet by mouth every * METOLAZONE 5 MG TABLET Take 5mg Monday, Monday an* NYSTATIN 100,000 UNIT/GRAM TO* Apply 1 application to affect* BLOOD SUGAR DIAGNOSTIC STRIPS before meals and at bedtime. * INSULIN ASPART U-100 100 UNI* Inject subcutaneously 5 units* INSULIN GLARGINE (U-100) 100 * Inject 42 Units subcutaneousl* LEVOTHYROXINE 75 MCG TABLET Take 1 tablet by mouth every * WARFARIN 4 MG TABLET 4mg Monday, 2 mg daily rest o* AMIODARONE 200 MG TABLET Take 1 tablet by mouth three * HIDEAWAY PULSEDOSE OXYGEN SYS* Overnight pulse Ox check 327.* COMPOUNDED PRESCRIPTION Paper Tape. 2 . FUROSEMIDE 40 MG TABLET Take 1 tablet by mouth twice * SPIRONOLACTONE 25 MG TABLET Take 1 tablet by mouth once d* DOCUSATE SODIUM 100 MG CAPSULE Take 1 capsule by mouth twice* ATORVASTATIN 40 MG TABLET Take 40 mg by mouth once fernando* CARVEDILOL 3.125 MG TABLET Take 1 tablet by mouth twice * * LANCETS Test 4 times daily 250.02, in* * ACETAMINOPHEN 500 MG TABLET Take 500 mg by mouth every 4 * * ASPIRIN 81 MG TABLET Take one (1) tablet daily . Problem List As Of Date 02/07/2018 Noted Resolved Other and unspecified hyperlipidemia [E78.5] More... Non morbid obesity due to excess calories [E66.* More... More... More... Paroxysmal ventricular tachycardia [I47.2] INVALID FOR* More... EDEMA [R60.9] INVALID FOR* Venous (peripheral) insufficiency [I87.2] INVALID FOR* More... Other malaise and fatigue [R53.81, R53.83] INVALID FOR*11/29/2010 Cellulitis of left leg [L03.116] INVALID FOR*02/16/2017 More... More... Dialysis patient [Z99.2] INVALID FOR*04/18/2013 More... CKD (chronic kidney disease) stage 4, GFR 15-29* More... Varicose veins of lower extremities with ulcer *INVALID FOR* Vitamin D deficiency [E55.9] INVALID FOR* More... Secondary hyperparathyroidism [N25.81] INVALID FOR* CAD (coronary artery disease), [place] coronary *INVALID FOR* More... More... Torsades de pointes (HCC) [I47.2] INVALID FOR*08/21/2017 More... Aortic stenosis [I35.0] INVALID FOR* More... Mitral stenosis [I05.0] INVALID FOR* More... More... More... More... More... On home O2 [Z99.81] INVALID FOR* More... Elevated bilirubin [R17] INVALID FOR*03/23/2013 More... More... More... PVD (peripheral vascular disease) [I73.9] INVALID FOR* More... More... More... More... Anemia [D64.9] INVALID FOR* More... Bursitis of left shoulder [M75.52] INVALID FOR*02/16/2017 Urinary incontinence [R32] INVALID FOR* More... More... Pressure ulcer, other site(707.09) [L89.899] INVALID FOR*02/16/2017 More... More... More... Implantable cardioverter-defibrillator (ICD) in*INVALID FOR* More... More... DVT prophylaxis [UVG1303] INVALID FOR* More... Thrombocytopenia (HCC) [D69.6] INVALID FOR*08/21/2017 More... More... Constipation [K59.00] INVALID FOR* Anticoagulated on Coumadin [Z51.81, Z79.01] INVALID FOR*10/11/2013 Severe aortic stenosis [I35.0] INVALID FOR*01/19/2017 More... CHF (congestive heart failure), NYHA class III *INVALID FOR* More... More... C. difficile diarrhea [A04.72] INVALID FOR*10/11/2013 More... Gout, arthritis [M10.9] INVALID FOR* More... Leukocytosis [D72.829] INVALID FOR*02/16/2017 More... 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 Gait instability [R26.81] INVALID FOR* More... PAF (paroxysmal atrial fibrillation) (HCC) [I48*INVALID FOR* Diabetes mellitus (HCC) [E11.9] INVALID FOR* Encounter Status:Closed by RASHIDA ALLEN on 02/07/18 BASIC METABOLIC Collected: 01/31/2018 Status: F Source: NAM PROFILE (BMP) 6:15 AM [facility] REPOSITORY TYPE CODE TESTS RESULT OUT OF RANGE REFERENCE UNITS LAB L501.0100 74-106 mg/dL High GLU 286 Result Comment: Glucose result greater than or equal to 200 mg/dL suggests DIABETES MELLITUS per A.D.A. criteria. Please note revised GLUCOSE reference range effective 2017. LAB L501.1000 7-18 mg/dL High BUN 79 LAB L501.1100 0.55-1.02 mg/dL High CREAT,SERUM 1.76 Result Comment: The validity of the calculated GFR AND GFRAA in patients over 70 years has not been determined. Clinical correlation is essential. LAB L501.1110 >60 mL/min Low EST GFR 30 Result Comment: Non- GFR Calc LAB L501.1115 >60 mL/min Low EST GFR - AA 37 Result Comment: GFR Calc LAB L501.1300 10-20 RATIO High BUN/CRE 44.9 LAB L501.2200 8.5-10.1 mg/dL CA Normal 8.6 LAB L501.5300 136-145 mmol/L Low NA 133 LAB L501.5600 3.5-5.1 mmol/L K Normal 4.0 LAB L501.5900 98-107 mmol/L Low CL 94 LAB L501.6100 21.0-32.0 mmol/L Normal CO2 31.0 LAB L501.6200 5-15 Normal GAP 8 Performed By: #### L500.2500 #### [facility] [address], [place], [address] PROTHROMBIN TIME W/INR Collected: 01/31/2018 Status: F Source: NAM 6:15 AM [facility] REPOSITORY Order Comment: ROOM 136 TYPE CODE TESTS RESULT OUT OF RANGE REFERENCE UNITS LAB L300.4150 11.7-14.9 SECONDS High PROTIME 28.5 LAB L300.4200 Normal INR 2.7 Performed By: #### L300.3900 #### [facility] [address] [facility] [place], [address] CBC-COMPLETE BLOOD CNT Collected: 01/31/2018 Status: F Source: NAM NO DIFF 6:15 AM [facility] REPOSITORY Order Comment: ROOM 136 TYPE CODE TESTS RESULT OUT OF RANGE REFERENCE UNITS LAB L100.1000 4.4-11.0 K/mm3 High WBC 13.1 LAB L100.1200 4.2-5.4 M/mm3 Low RBC 3.45 LAB L100.1300 12.0-15.0 g/dl Low HGB 9.9 LAB L100.1400 37-47 % Low HCT 31.6 LAB L100.1500 81-99 fL Normal MCV 91.6 LAB L100.1600 27.0-32.0 pg Normal MCH 28.7 LAB L100.1700 32-36 g/gl Low MCHC 31.3 LAB L100.1810 11.6-14.6 % Normal RDW CV 14.6 LAB L100.1820 35.1-43.9 fl High RDW SD 49.2 LAB L100.1900 150-450 K/mm3 Normal PLT 234 LAB L100.2000 6.2-12.0 fl Normal MPV 10.8 Performed By: #### L100.0500 #### [facility] [address], [place], [address] PROTHROMBIN TIME W/INR Collected: 01/23/2018 Status: F Source: [place] 6:10 AM [facility] REPOSITORY Order Comment: ORDERED RENAL,CBC,PTHIN,VITD,PLATELET; ORDERED BMP,CBC,PT TYPE CODE TESTS RESULT OUT OF RANGE REFERENCE UNITS LAB L300.4150 11.7-14.9 SECONDS High PROTIME 34.6 LAB L300.4200 Normal INR 3.4 Performed By: #### L300.3900 #### [facility] [address] [place], [address] CBC-COMPLETE BLOOD CNT Collected: 01/23/2018 Status: F Source: [place] NO DIFF 6:10 AM [facility] REPOSITORY Order Comment: ORDERED RENAL,CBC,PTHIN,VITD,PLATELET; ORDERED BMP,CBC,PT TYPE CODE TESTS RESULT OUT OF RANGE REFERENCE UNITS LAB L100.1000 4.4-11.0 K/mm3 High WBC 14.3 LAB L100.1200 4.2-5.4 M/mm3 Low RBC 3.35 LAB L100.1300 12.0-15.0 g/dl Low HGB 9.8 LAB L100.1400 37-47 % Low HCT 30.4 LAB L100.1500 81-99 fL Normal MCV 90.7 LAB L100.1600 27.0-32.0 pg Normal MCH 29.3 LAB L100.1700 32-36 g/gl Normal MCHC 32.2 LAB L100.1810 11.6-14.6 % High RDW CV 14.8 LAB L100.1820 35.1-43.9 fl High RDW SD 48.7 LAB L100.1900 150-450 K/mm3 Normal PLT 206 LAB L100.2000 6.2-12.0 fl Normal MPV 10.5 Performed By: #### L100.0500 #### [facility] [address] [place], [address] VITAMIN D,25 HYDROXY Collected: 01/23/2018 Status: F Source: NAM 6:10 AM [facility] REPOSITORY Order Comment: ORDERED RENAL,CBC,PTHIN,VITD,PLATELET; ORDERED BMP,CBC,PT TYPE CODE TESTS RESULT OUT OF REFERENCE UNITS RANGE LAB L506.1000 29.95-100.01 ng/mL Low Vitamin D 23.6 25-OH Result Comment: Vitamin D 25(OH) Status Range Deficiency <20 ng/mL (50nmol/L) Insuffciency 20 - 30 ng/mL (50 - 75 nmol/L) Sufficiency 30 - 100 ng/mL (75 - 250 nmol/L) Toxicity >100 ng/mL (>250 nmol/L) Performed By: #### L506.1000 #### [facility] [address] [facility] [address] [place], [place], [address] RENAL PROFILE Collected: 01/23/2018 Status: F Source: [place] 6:10 AM [facility] REPOSITORY Order Comment: ORDERED RENAL,CBC,PTHIN,VITD,PLATELET; ORDERED BMP,CBC,PT TYPE CODE TESTS RESULT OUT OF RANGE REFERENCE UNITS LAB L501.0100 74-106 mg/dL High GLU 147 Result Comment: Fasting Glucose result greater than or equal to 126 mg/dL suggests DIABETES MELLITUS per A.D.A. criteria. Please note revised GLUCOSE reference range effective 2017. LAB L501.1000 7-18 mg/dL High alert BUN 110 Result Comment: Critical Result(s) Called at: 09:28:02 01/23/2018 by: [facility] LAB L501.1100 0.55-1.02 mg/dL CREAT,SERUM High 2.08 Result Comment: The validity of the calculated GFR AND GFRAA in patients over 70 years has not been determined. Clinical correlation is essential. LAB L501.1110 >60 mL/min Low EST GFR 25 Result Comment: Non- GFR Calc LAB L501.1115 >60 mL/min Low EST GFR - AA 30 Result Comment: GFR Calc LAB L501.1300 10-20 RATIO High BUN/CRE 52.9 LAB L501.1800 3.2-5.0 g/dL Low ALB 2.8 LAB L501.2200 8.5-10.1 mg/dL Low CA 8.4 LAB L501.2300 2.5-4.9 mg/dL Normal PHOS 3.3 LAB L501.5300 136-145 mmol/L NA Normal 136 LAB L501.5600 3.5-5.1 mmol/L Low K 3.3 LAB L501.5900 98-107 mmol/L Low CL 94 LAB L501.6100 21.0-32.0 mmol/L Normal CO2 30.0 Performed By: #### L500.3600 #### [facility] [address] [facility] [place], [address] PTHIN Collected: 01/23/2018 Status: F Source: [place]AM 6:10 AM [facility] REPOSITORY Order Comment: ORDERED RENAL,CBC,PTHIN,VITD,PLATELET; ORDERED BMP,CBC,PT TYPE CODE TESTS RESULT OUT OF RANGE REFERENCE UNITS LAB L509.1000 18.4-80.1 pg/mL High PTHIN 219.0 Performed By: #### L509.1000 #### [facility] [address] [facility] [place], [address] PROTEIN+CREATININE Collected: Status: F Source: NAM RATIO,URINE 01/22/2018 9:00 PM [facility] REPOSITORY TYPE CODE TESTS RESULT OUT OF RANGE REFERENCE UNITS LAB L501.1200 NO RANGE EST. mg/dL Normal UR CREAT 29.60 LAB L501.1930 <11.9 mg/dL High 16.3 PROTEIN,UR.R AN. LAB L501.1940 0-200 mg/g CRE High PROT:CRE 551 RATIO Performed By: #### L501.0900 #### [facility] [address] [place], [address] PROTIME W/INR Collected: 01/19/2018 Status: F Source: [place] 6:43 AM [facility] REPOSITORY TYPE CODE TESTS RESULT OUT OF REFERENCE UNITS RANGE LAB L9200.1001 11.9-14.4 SEC High PROTIME ISTAT 31.5 Result Comment: Reference Range 11.9 - 14.4 LAB L9200.2000 Normal INR ISTAT 2.80 Result Comment: Critical Value > 3.5 Performed By: #### L9200.0000 #### [facility] Point of Care [address] [place] [address] PROGRESS Observed: 01/18/2018 Status: COMPLETED Source: [place] 8:53 AM [facility] REPOSITORY HNO ID: [id number] Author: Rashida Allen Service: (none) Author Type: Registered Nurse Type: Progress Notes Filed: 01/18/2018 9:05 AM Note Text: PRIMARY CARE COORDINATION CHART REVIEW Patient identified for Care Coordination from: ACO Project Last PCP office visit: 12/29/2017 Next OV: Visit date not found CHRONIC DX: DM2 controlled; CHF, CRF CARE GAPS: Several UTILIZATION WITHIN THE LAST 12 MONTHS: ? ED: Y ? HOSPITAL: Y ? SNF: No PRIMARY CARE COORDINATION OUTREACH PLAN: Will reach out to patient for Care Coordination. Rashida Allen regional economic liaison Administrative Services Assistant Internal Medicine [facility] CNPTOUTREACH Observed: 01/18/2018 Status: COMPLETED Source: [place] 12:00 AM [facility] REPOSITORY Patient Outreach (INTMWS) ELIZABETH HO ([id number]) 1950 F Date Time Provider Department 01/18/18 RASHIDA SALDANA During your visit today, we recorded the following information about you: Rashida Lovell RN 01/18/2018 9:05 AM Signed PRIMARY CARE COORDINATION CHART REVIEW Patient identified for Care Coordination from: ACO Project Last PCP office visit: 12/29/2017 Next OV: Visit date not found CHRONIC DX: DM2 controlled; CHF, CRF CARE GAPS: Several UTILIZATION WITHIN THE LAST 12 MONTHS: ? ED: Y ? HOSPITAL: Y ? SNF: No PRIMARY CARE COORDINATION OUTREACH PLAN: Will reach out to patient for Care Coordination. Rashida Allen RN Ambulatory Administrative Services Assistant Internal Medicine [facility] Allergies As of Date: 01/18/2018 Noted Allergy Reaction AUGMENTIN (AMOXICILLIN-POT CLAVUL*2013 2 - Rash SULFA (SULFONAMIDE ANTIBIOTICS) 01/10/2005 4 - Hives VANCOMYCIN 08/26/2013 10 - Anaphylaxis Comments: Per pharmacist. Patient tolerating PO Vancomycin. on 01/07 pt in [facility] and had ld syndrome rxn to [facility]. Date Reviewed: 12/29/2017 Reviewed by: Maria Esther Campbell LPN - Fully Assessed Prescriptions as of 01/18/2018 Sig: TRAMADOL 50 MG TABLET Take 50 mg by mouth every 6 h* ONDANSETRON 4 MG DISINTEGRATI* Take 1 tablet by mouth every * METOLAZONE 5 MG TABLET Take 5mg Monday, Monday an* NYSTATIN 100,000 UNIT/GRAM TO* Apply 1 application to affect* BLOOD SUGAR DIAGNOSTIC STRIPS before meals and at bedtime. * INSULIN ASPART U-100 100 UNI* Inject subcutaneously 5 units* INSULIN GLARGINE (U-100) 100 * Inject 42 Units subcutaneousl* LEVOTHYROXINE 75 MCG TABLET Take 1 tablet by mouth every * WARFARIN 4 MG TABLET 4mg Monday, 2 mg daily rest o* AMIODARONE 200 MG TABLET Take 1 tablet by mouth three * HIDEAWAY PULSEDOSE OXYGEN SYS* Overnight pulse Ox check 327.* COMPOUNDED PRESCRIPTION Paper Tape. 2 . FUROSEMIDE 40 MG TABLET Take 1 tablet by mouth twice * SPIRONOLACTONE 25 MG TABLET Take 1 tablet by mouth once d* DOCUSATE SODIUM 100 MG CAPSULE Take 1 capsule by mouth twice* ATORVASTATIN 40 MG TABLET Take 40 mg by mouth once fernando* CARVEDILOL 3.125 MG TABLET Take 1 tablet by mouth twice * * LANCETS Test 4 times daily 250.02, in* * ACETAMINOPHEN 500 MG TABLET Take 500 mg by mouth every 4 * * ASPIRIN 81 MG TABLET Take one (1) tablet daily . Problem List As Of Date 01/18/2018 Noted Resolved Other and unspecified hyperlipidemia [E78.5] Priority: J More... Non morbid obesity due to excess calories [E66.* Priority: K More... More... More... Paroxysmal ventricular tachycardia [I47.2] INVALID FOR* Priority: D More... EDEMA [R60.9] INVALID FOR* Venous (peripheral) insufficiency [I87.2] INVALID FOR* More... Other malaise and fatigue [R53.81, R53.83] INVALID FOR*11/29/2010 Cellulitis of left leg [L03.116] INVALID FOR*02/16/2017 More... More... Dialysis patient [Z99.2] INVALID FOR*04/18/2013 More... CKD (chronic kidney disease) stage 4, GFR 15-29* Priority: E More... Varicose veins of lower extremities with ulcer *INVALID FOR* Vitamin D deficiency [E55.9] INVALID FOR* More... Secondary hyperparathyroidism [N25.81] INVALID FOR* CAD (coronary artery disease), [place] coronary *INVALID FOR* Priority: F More... More... Torsades de pointes (HCC) [I47.2] INVALID FOR*08/21/2017 Priority: B More... Aortic stenosis [I35.0] INVALID FOR* Priority: B More... Mitral stenosis [I05.0] INVALID FOR* Priority: D More... More... More... More... More... On home O2 [Z99.81] INVALID FOR* Priority: K More... Elevated bilirubin [R17] INVALID FOR*03/23/2013 More... More... More... PVD (peripheral vascular disease) [I73.9] INVALID FOR* Priority: K More... More... More... More... Anemia [D64.9] INVALID FOR* Priority: B More... Bursitis of left shoulder [M75.52] INVALID FOR*02/16/2017 Urinary incontinence [R32] INVALID FOR* Priority: D More... More... Pressure ulcer, other site(707.09) [L89.899] INVALID FOR*02/16/2017 Priority: L More... More... More... Implantable cardioverter-defibrillator (ICD) in*INVALID FOR* More... More... DVT prophylaxis [TQT4867] INVALID FOR* More... Thrombocytopenia (HCC) [D69.6] INVALID FOR*08/21/2017 More... More... Constipation [K59.00] INVALID FOR* Anticoagulated on Coumadin [Z51.81, Z79.01] INVALID FOR*10/11/2013 Severe aortic stenosis [I35.0] INVALID FOR*01/19/2017 Priority: A More... CHF (congestive heart failure), NYHA class III *INVALID FOR* Priority: B More... More... C. difficile diarrhea [A04.72] INVALID FOR*10/11/2013 More... Gout, arthritis [M10.9] INVALID FOR* More... Leukocytosis [D72.829] INVALID FOR*02/16/2017 Priority: B More... 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 Gait instability [R26.81] INVALID FOR* More... PAF (paroxysmal atrial fibrillation) (HCC) [I48*INVALID FOR* Diabetes mellitus (HCC) [E11.9] INVALID FOR* Encounter Status:Closed by RASHIDA ALLEN on 01/18/18 CBC-COMPLETE BLOOD CNT Collected: 01/17/2018 Status: F Source: [place] NO DIFF 6:00 AM [facility] REPOSITORY TYPE CODE TESTS RESULT OUT OF RANGE REFERENCE UNITS LAB L100.1000 4.4-11.0 K/mm3 High WBC 12.7 LAB L100.1200 4.2-5.4 M/mm3 Low RBC 3.41 LAB L100.1300 12.0-15.0 g/dl Low HGB 9.9 LAB L100.1400 37-47 % Low HCT 31.3 LAB L100.1500 81-99 fL Normal MCV 91.8 LAB L100.1600 27.0-32.0 pg Normal MCH 29.0 LAB L100.1700 32-36 g/gl Low MCHC 31.6 LAB L100.1810 11.6-14.6 % High RDW CV 15.2 LAB L100.1820 35.1-43.9 fl High RDW SD 50.8 LAB L100.1900 150-450 K/mm3 Normal PLT 197 LAB L100.2000 6.2-12.0 fl Normal MPV 10.8 Performed By: #### L100.0500 #### [facility] [address] [place], [address] COMPREHENSIVE METABOLIC Collected: 01/17/2018 Status: F Source: [facility] 6:00 AM [facility] REPOSITORY Order Comment: 136 TYPE CODE TESTS RESULT OUT OF RANGE REFERENCE UNITS LAB L501.0100 74-106 mg/dL Normal GLU 106 Result Comment: Fasting Glucose result from 100 to 125 mg/dL suggests IMPAIRED HOMEOSTASIS per A.D.A. criteria. Please note revised GLUCOSE reference range effective 2017. LAB L501.1000 7-18 mg/dL High alert BUN 110 Result Comment: Critical Result(s) Called at: 09:39:14 01/17/2018 by: [facility] LAB L501.1100 0.55-1.02 mg/dL CREAT,SERUM High 2.61 Result Comment: The validity of the calculated GFR AND GFRAA in patients over 70 years has not been determined. Clinical correlation is essential. LAB L501.1110 >60 mL/min Low EST GFR 19 Result Comment: Non- GFR Calc LAB L501.1115 >60 mL/min Low EST GFR - AA 23 Result Comment: GFR Calc LAB L501.1300 10-20 RATIO High BUN/CRE 42.1 LAB L501.1500 6.4-8.2 g/dL Low T PROT 6.1 LAB L501.1800 3.2-5.0 g/dL Low ALB 2.7 LAB L501.1950 2.2-4.2 g/dL Normal GLOB 3.4 LAB L501.2000 0.9-2.4 RATIO Low A/G 0.8 LAB L501.2200 8.5-10.1 mg/dL Low CA 8.3 LAB L501.4100 15-37 U/L Low AST 13 LAB L501.4305 45-117 U/L Normal ALK P 62 LAB L501.4405 13-56 U/L Normal ALT 15 LAB L501.4600 0.20-1.00 mg/dL T Normal BILI 0.70 LAB L501.5300 136-145 mmol/L NA Normal 136 LAB L501.5600 3.5-5.1 mmol/L Low K 3.0 LAB L501.5900 98-107 mmol/L Low CL 93 LAB L501.6100 21.0-32.0 mmol/L Normal CO2 32.0 LAB L501.6200 5-15 Normal GAP 11 Performed By: #### L500.4050 #### [facility] [address] [place], [address] Observed: 01/15/2018 Status: F Source: [place] CDIFF (MOLECULAR) 1:45 PM [facility] REPOSITORY Cdiff-Molecular Normal Reference Range = Negative C. Diff DNA Negative- No toxigenic C. Diff DNA Detected NAAT METHOD Testing was performed using nucleic acid amplification Performed By: #### M100.6796 #### [facility] [address] [place], [address] CBC-COMPLETE BLOOD CNT Collected: 01/10/2018 Status: F Source: [place] NO DIFF 7:35 AM [facility] REPOSITORY TYPE CODE TESTS RESULT OUT OF RANGE REFERENCE UNITS LAB L100.1000 4.4-11.0 K/mm3 High WBC 13.4 LAB L100.1200 4.2-5.4 M/mm3 Low RBC 3.50 LAB L100.1300 12.0-15.0 g/dl Low HGB 10.1 LAB L100.1400 37-47 % Low HCT 32.4 LAB L100.1500 81-99 fL Normal MCV 92.6 LAB L100.1600 27.0-32.0 pg Normal MCH 28.9 LAB L100.1700 32-36 g/gl Low MCHC 31.2 LAB L100.1810 11.6-14.6 % High RDW CV 15.0 LAB L100.1820 35.1-43.9 fl High RDW SD 50.5 LAB L100.1900 150-450 K/mm3 Normal PLT 247 LAB L100.2000 6.2-12.0 fl Normal MPV 10.8 Performed By: #### L100.0500 #### [facility] [address] [place], [place], [address] BASIC METABOLIC Collected: 01/10/2018 Status: F Source: [place] PROFILE (BMP) 7:35 AM [facility] REPOSITORY TYPE CODE TESTS RESULT OUT OF RANGE REFERENCE UNITS LAB L501.0100 74-106 mg/dL Normal GLU 86 Result Comment: Please note revised GLUCOSE reference range effective 2017. LAB L501.1000 7-18 mg/dL High BUN 94 LAB L501.1100 0.55-1.02 mg/dL High CREAT,SERUM 2.58 Result Comment: The validity of the calculated GFR AND GFRAA in patients over 70 years has not been determined. Clinical correlation is essential. LAB L501.1110 >60 mL/min Low EST GFR 20 Result Comment: Non- GFR Calc LAB L501.1115 >60 mL/min Low EST GFR - AA 24 Result Comment: GFR Calc LAB L501.1300 10-20 RATIO High BUN/CRE 36.4 LAB L501.2200 8.5-10.1 mg/dL CA Normal 8.8 LAB L501.5300 136-145 mmol/L Low NA 134 LAB L501.5600 3.5-5.1 mmol/L Low K 3.1 LAB L501.5900 98-107 mmol/L Low CL 88 LAB L501.6100 21.0-32.0 mmol/L High CO2 34.0 LAB L501.6200 5-15 Normal GAP 12 Performed By: #### L500.2500 #### [facility] [address] [place], [place], [address] CBC-COMPLETE BLOOD CNT Collected: 01/08/2018 Status: F Source: [place] NO [place] 4:45 AM [facility] REPOSITORY Order Comment: RM:136 TYPE CODE TESTS RESULT OUT OF RANGE REFERENCE UNITS LAB L100.1000 4.4-11.0 K/mm3 High WBC 11.7 LAB L100.1200 4.2-5.4 M/mm3 Low RBC 3.24 LAB L100.1300 12.0-15.0 g/dl Low HGB 9.4 LAB L100.1400 37-47 % Low HCT 30.4 LAB L100.1500 81-99 fL Normal MCV 93.8 LAB L100.1600 27.0-32.0 pg Normal MCH 29.0 LAB L100.1700 32-36 g/gl Low MCHC 30.9 LAB L100.1810 11.6-14.6 % High RDW CV 14.8 LAB L100.1820 35.1-43.9 fl High RDW SD 50.4 LAB L100.1900 150-450 K/mm3 Normal PLT 183 LAB L100.2000 6.2-12.0 fl Normal MPV 10.8 Performed By: #### L100.0500 #### [facility] [address] [place], [address] BASIC METABOLIC Collected: 01/08/2018 Status: F Source: [place] PROFILE (BMP) 4:45 AM [facility] REPOSITORY Order Comment: RM:136 TYPE CODE TESTS RESULT OUT OF RANGE REFERENCE UNITS LAB L501.0100 74-106 mg/dL High GLU 133 Result Comment: Fasting Glucose result greater than or equal to 126 mg/dL suggests DIABETES MELLITUS per A.D.A. criteria. Please note revised GLUCOSE reference range effective 2017. LAB L501.1000 7-18 mg/dL High BUN 86 LAB L501.1100 0.55-1.02 mg/dL High CREAT,SERUM 2.17 Result Comment: The validity of the calculated GFR AND GFRAA in patients over 70 years has not been determined. Clinical correlation is essential. LAB L501.1110 >60 mL/min Low EST GFR 24 Result Comment: Non- GFR Calc LAB L501.1115 >60 mL/min Low EST GFR - AA 29 Result Comment: GFR Calc LAB L501.1300 10-20 RATIO High BUN/CRE 39.6 LAB L501.2200 8.5-10.1 mg/dL CA Normal 8.7 LAB L501.5300 136-145 mmol/L NA Normal 136 LAB L501.5600 3.5-5.1 mmol/L Low K 3.4 LAB L501.5900 98-107 mmol/L Low CL 93 LAB L501.6100 21.0-32.0 mmol/L High CO2 35.0 LAB L501.6200 5-15 Normal GAP 8 Performed By: #### L500.2500 #### [facility] [address] [facility] [place], [address] PROTHROMBIN TIME W/INR Collected: 01/08/2018 Status: F Source: [place] 4:45 AM [facility] REPOSITORY Order Comment: RM:136 TYPE CODE TESTS RESULT OUT OF RANGE REFERENCE UNITS LAB L300.4150 11.7-14.9 SECONDS High PROTIME 22.9 LAB L300.4200 Normal INR 2.0 Performed By: #### L300.3900 #### [facility] [address] [facility] [address] PROTHROMBIN TIME W/INR Collected: 01/04/2018 Status: F Source: [place] 5:35 AM [facility] REPOSITORY Order Comment: ROOM 126 TYPE CODE TESTS RESULT OUT OF RANGE REFERENCE UNITS LAB L300.4150 11.7-14.9 SECONDS High PROTIME 29.2 LAB L300.4200 Normal INR 2.7 Performed By: #### L300.3900 #### [facility] [place], [address] BEDSIDE GLUCOSE Collected: 01/03/2018 Status: F Source: [place] 5:14 PM [facility] REPOSITORY TYPE CODE TESTS RESULT OUT OF REFERENCE UNITS RANGE LAB L501.080 70-110 mg/dL High BEDSIDE GLU 215 Result Comment: MANAGEMENT OF PATIENT CARE PER NURSING PROTOCOL Performed By: #### L501.080 #### [facility] Point of Care [address] [place] [address] DISCHARGE SUMMARY Observed: 01/03/2018 Status: F Source: [place] 4:12 PM [facility] REPOSITORY [facility] Medical Records Department [facility] [place] [address] Discharge Summary 01/03/18 1518 MR#: [id number] Acct: [id number] Name: ELIZABETH HO Rep #: [id number] : 1950 67 From: Cristian ALFARO PCP: Williams Parekh MD Status: ADM JANE Y Location: [place] [id number] Discharge Date and Diagnosis - Problem List Patient Problems: Active and Suspected Problems (Last Reviewed 11/20/17 @ 13:02 by Stefany Carrion) Hip pain (Acute) Debility (Acute) Date of Admission: 01/01/18 Date of Discharge: 01/03/18 - Primary Discharge Diagnosis Active and Suspected Problems (Last Reviewed 11/20/17 @ 13:02 by Stefany Carrion) Hip pain (Acute) secondary to moderate osteoarthrosis of the right hip Debility (Acute) with difficulty ambulating Chronic CHF Chronic A. fib Coronary artery disease Prior ICD Aortic stenosis status post Tavr Anemia of chronic disease CKD stage IV Hyperlipidemia Thyroidism - Secondary Discharge Diagnosis Chronic Problems (Last Reviewed 11/20/17 @ 13:02 by Stefany Carrion) CHF exacerbation (Chronic) Atrial fibrillation (Chronic) Chronic renal insufficiency (Chronic) CAD (coronary artery disease) (Chronic) ICD (implantable cardioverter-defibrillator) in place (Chronic) Aortic stenosis (Chronic) s/p TAVR Paroxysmal atrial tachycardia (Chronic) Rheumatic tricuspid insufficiency (Chronic) ICD (implantable cardioverter-defibrillator) in place (Chronic) Ventricular tachycardia (paroxysmal) (Chronic) S/P AICD Anemia of chronic disease (Chronic) Cardiomyopathy, noncoronary (Chronic) HTN (hypertension) (Chronic) S/p TAVR (transcatheter aortic valve replacement), bioprosthetic (Chronic) 26 mm Bond Sapein Bioprosthetic Aortic Valve HLD (hyperlipidemia) (Chronic) Mitral valve stenosis and regurgitation (Chronic) Mild to moderate mitral valve stenosis with moderate mitral valve insufficiency Chronic atrial fibrillation (Chronic) Hospital Course and Treatment Imaging Results: CT/Extremity Lower without Contra IMPRESSION: Moderate osteoarthrosis of the right hip. RAD/Femur Min 2 Views IMPRESSION: Diffuse osteopenia, no demonstrated fracture or suspicious osseous lesion. Consults: Basali - pain management Operations: None Procedures: None Summary of Care Provided: Physical exam on day of discharge: See daily progress note. Hospital course: The patient is a 67 year old F with an extensive past medical history as above who presented to the emergency room with intractable right hip, right lumbar spine, and right thigh pain. She denied any traumatic injury the pain it has began suddenly and progressively worsened. She had seen her PCP and the emergency room as an outpatient and trialed [place] and steroids without any relief. She represented to the emergency room as she continued to have worsening of her pain and had more difficulty ambulating. She did not feel safe at home and was concerned that she was going to fall. 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 She desires senior care placement. She was admitted to the medical surgical floor and started on supportive care including oxycodone, Tylenol, Lidoderm, with the consult pain management. Pain management recommended and injection however she was not interested in doing this because she was concerned about holding her warfarin. She was seen by PT and OT and recommendations were made for senior care therapy. The patient was agreeable and she was discharged there in stable condition. She will need follow- up with pain management, her PCP, and she would benefit from an outpatient orthopedic consult. She will need her INR followed closely as currently her Coumadin is supratherapeutic and we should allow this to drift down and not restart Coumadin until it is therapeutic. This patient was seen by Cristian Dotson PA-C under the supervision of Doctor Enoch. [] Discharge Diet: Low fat/ Low Cholesterol, 2000 mg Sodium Diet Discharge Activity: Return to Normal Activity Home Medications: Medications to take at Discharge Insulin Glargine,Hum.rec.anlog [Lantus] 42 unit SQ BREAKFAST 12/17/16 Levothyroxine [Synthroid] 75 mcg PO 0600 12/17/16 Polyethylene Glycol 3350 [Miralax] 17 gm PO DAILY 12/18/16 Furosemide 40 mg PO BID 06/20/17 Insulin Aspart [Novolog Flexpen] 5 units SC BREAKFAST 06/20/17 Docusate Sodium [Colace] 100 mg PO DAILY 07/22/17 atorvastatin 40 mg tablet 40 mg PO QHS #90 tab 09/11/17 Insulin Aspart [Novolog Flexpen] 8 unit SQ BID 09/17/17 spironolactone 25 mg tablet 25 mg PO DAILY #90 tab 10/13/17 carvedilol 6.25 mg tablet 6.25 mg PO BID #180 tab 12/26/17 Amiodarone HCl [Cordarone] 200 mg PO DAILY 01/01/18 Aspirin E.C. [Ecotrin] 81 mg PO DAILY 01/01/18 Metolazone [Zaroxolyn] 5 mg PO MOWEFR 01/01/18 Warfarin Sodium [Coumadin] 1 mg PO SUFRSA 01/01/18 Warfarin [Coumadin] 2 mg PO DAILY 01/01/18 Acetaminophen [Tylenol Tablet] 650 mg PO Q6H PRN PRN tablet 01/03/18 Cholecalciferol (VIT D3) [Vitamin D3] 2,000 unit PO DAILY tablet 01/03/18 Lidocaine [Lidoderm Patch] 2 patch TOPICAL DAILY #0 patch 01/03/18 Ondansetron [Zofran] 8 mg PO Q8H PRN PRN tablet 01/03/18 Oxycodone [Oxyir] 5 - 10 mg PO Q4H PRN PRN 2 Days #24 tablet 01/03/18 Following Prescrptions Were Given to Patient: Oxycodone [Oxyir] 5 - 10 mg PO Q4H PRN PRN 2 Days #24 tablet PRN Reason: Severe Pain () Primary Care Physician: Williams Parekh MD [Primary Care Provider] - Please follow up with your Primary Care Physician in: 1-2 weeks Please Follow Up With: Mary Samaniego MD When: 2 weeks Disposition: Home Minutes spent on discharge:: 35 Patient Condition:: Stable Medical Necessity - Tobacco Use Smoking Status: Never smoker Tobacco Use: Non-smoker Meaningful Use Info Meaningful Use Diagnoses (Choose all that apply): None applicable 01/03/18 1525 <Electronically signed by Cristian ALFARO> Date Cristian ALFARO 01/03/18 1612<Electronically signed by Octavio Kendall MD> Cosigner Signature (if applicable): Date Octavio Kendall MD CC: ANGELINA Dotson; Octavio Kendall M.D.; Williams Parekh MD Signed TRANSFER TO [facility] Observed: 01/03/2018 Status: F Source: [facility] 4:12 PM [facility] REPOSITORY [facility] Medical Records Department [address] [place] [address] Transfer to Extended Care MR#: [id number] Acct: [id number] Name: ELIZABETH HO Rep #: [id number] : [id number] 67 From: Cristian ALFARO PCP: Williams Parekh MD Status: ADM JANE ELIZABETH HO (Patient) (Health Ins. Claim No.) (Day of Discharge to Facility) Certification of patient admission REQUIRED AT TIME OF ADMISSION. I CERTIFY THAT POST-HOSPITAL ECF SERVICES ARE REQUIRED TO BE GIVEN ON AN IN-PATIENT BASIS BECAUSE OF THE ABOVE NAMED PATIENT'S NEED FOR FPC CARE ON A CONTINUING BASIS FOR THE CONDITION(S) FOR WHICH HE/SHE WAS RECEIVING IN-PATIENT HOSPITAL SERVICES PRIOR TO HIS/HER TRANSFER TO THE F. 01/03/18 1518 <Electronically signed by Cristian ALFARO> Date Cristian ALFARO - Diet 01/01/18 18:10 Diet: Calorie Controlled How many daily calories?: 1800 calorie - Routine Orders/Code Status Suppository Type: Dulcolax 10mg Suppository Frequency: Daily PRN O2 Frequency: Continuous Routine Lab Work: CBC - 1 week, BMP - 1 week, INR - 2 days Code Status: DNRCC-A - Wound(s) mid chest Wound Type: scratches - Therapies Physical Therapy: Eval and Treat Occupational Therapy: Eval and Treat - Problem/Diagnosis (1) Hip pain Status: Acute Current Visit: Yes (2) Debility Status: Acute Current Visit: Yes (3) CHF exacerbation Status: Chronic Current Visit: No (4) Atrial fibrillation Status: Chronic Current Visit: No (5) Chronic renal insufficiency Status: Chronic Current Visit: No (6) CAD (coronary artery disease) Status: Chronic Current Visit: No (7) ICD (implantable cardioverter-defibrillator) in place Status: Chronic Current Visit: No (8) Aortic stenosis Status: Chronic Comment: s/p TAVR Current Visit: No (9) Paroxysmal atrial tachycardia Status: Chronic Current Visit: No (10) ICD (implantable cardioverter-defibrillator) in place Status: Chronic Current Visit: No (11) Anemia of chronic disease Status: Chronic Current Visit: No (12) Cardiomyopathy, noncoronary Status: Chronic Current Visit: No (13) HTN (hypertension) Status: Chronic Current Visit: No (14) S/p TAVR (transcatheter aortic valve replacement), bioprosthetic Status: Chronic Comment: 26 mm Bond Sapein Bioprosthetic Aortic Valve Current Visit: No (15) HLD (hyperlipidemia) Status: Chronic Current Visit: No (16) Chronic atrial fibrillation Status: Chronic Current Visit: No - Allergies/Procedures Done in Hospital Allergies/Adverse Reactions: Allergies amoxicillin trihydrate [From Augmentin] Allergy (Verified 11/20/17 13:00) Rash potassium clavulanate [From Augmentin] Allergy (Verified 11/20/17 13:00) Rash Sulfa (Sulfonamide Antibiotics) Allergy (Verified 11/20/17 13:00) Hives vancomycin Allergy (Verified 11/20/17 13:00) Other LD SYNDROME Procedures: None - Type of Care/Length of Stay Estimated LOS: Convalescent Care Less Than 30 days Type of Care Needed: Skilled Rehab Potential: Fair Prognosis: Fair - Additional Orders/Day of Discharge Additional Orders: Patient is not to resume Coumadin until INR returns to therapeutic range. Day of Discharge: 01/03/18 - Dietary and Speech Recommendations Dietitian Recommendations/Changes: Recommend liberalized carb- controlled diet with no added salt until PO at meals improves. Would best benefit from cardiac, 1800 calorie controlled diet when adequate PO at meals is established. - Follow Up Care Primary Care Physician: Williams Parekh MD [Primary Care Provider] - Please follow up with your Primary Care Physician in: 1-2 weeks Please Follow Up With: Mary Samaniego MD When: 2 weeks 01/03/18 1518 <Electronically signed by Cristian ALFARO> Date Cristian ALFARO CC: Mary Samaniego MD; Williams Parekh MD Signed BEDSIDE GLUCOSE Collected: 01/03/2018 Status: F Source: NAM 11:50 AM [facility] REPOSITORY TYPE CODE TESTS RESULT OUT OF REFERENCE UNITS RANGE LAB L501.080 70-110 mg/dL High BEDSIDE GLU 185 Result Comment: MANAGEMENT OF PATIENT CARE PER NURSING PROTOCOL Performed By: #### L501.080 #### [facility] Point of Care [address] [place] [address] BEDSIDE GLUCOSE Collected: 01/03/2018 Status: F Source: NAM 7:47 AM [facility] REPOSITORY TYPE CODE TESTS RESULT OUT OF RANGE REFERENCE UNITS LAB L501.080 70-110 mg/dL Normal BEDSIDE GLU 102 Result Comment: MANAGEMENT OF PATIENT CARE PER NURSING PROTOCOL Performed By: #### L501.080 #### [facility] Point of Care [address] [place] [address] BASIC METABOLIC Collected: 01/03/2018 Status: F Source: NAM PROFILE (BMP) 5:52 AM [facility] REPOSITORY TYPE CODE TESTS RESULT OUT OF RANGE REFERENCE UNITS LAB L501.0100 74-106 mg/dL Normal GLU 103 Result Comment: Fasting Glucose result from 100 to 125 mg/dL suggests IMPAIRED HOMEOSTASIS per A.D.A. criteria. Please note revised GLUCOSE reference range effective 2017. LAB L501.1000 7-18 mg/dL High BUN 77 LAB L501.1100 0.55-1.02 mg/dL High CREAT,SERUM 1.74 Result Comment: The validity of the calculated GFR AND GFRAA in patients over 70 years has not been determined. Clinical correlation is essential. LAB L501.1110 >60 mL/min Low EST GFR 31 Result Comment: Non- GFR Calc LAB L501.1115 >60 mL/min Low EST GFR - AA 37 Result Comment: GFR Calc LAB L501.1255 ml/min Normal Estimated CRCL 28.57 LAB L501.1300 10-20 RATIO High BUN/CRE 44.3 LAB L501.2200 8.5-10 mg/dL Normal .1 CA 8.7 LAB L501.5300 136-14 mmol/L Normal 5 NA 140 LAB L501.5600 3.5-5. mmol/L Normal 1 K 3.9 LAB L501.5900 98-107 mmol/L Normal CL 98 LAB L501.6100 21.0-3 mmol/L High 2.0 CO2 34.0 LAB L501.6200 5-15 Normal GAP 8 Performed By: #### L500.2500 #### [facility] [address] [place], [address] PROTHROMBIN TIME W/INR Collected: 01/03/2018 Status: F Source: [place] 5:52 AM [facility] REPOSITORY TYPE CODE TESTS RESULT OUT OF REFERENCE UNITS RANGE LAB L300.4150 11.7-14.9 SECONDS High PROTIME 35.2 LAB L300.4200 High alert INR 3.5 Result Comment: CRITICAL VALUE VERIFIED. CALLED TO TIMRN MS3 01/03/18 0631 Ilsa Stanford. RESULTS READ BACK BY SAME . Performed By: #### L300.3900 #### [facility] [address] [place], [address] CBC W/DIFF, AUTOMATED Collected: 01/03/2018 Status: C Source: [place] 5:52 AM [facility] REPOSITORY TYPE CODE TESTS RESULT OUT OF RANGE REFERENCE UNITS LAB L100.1000 4.4-11.0 K/mm3 Normal WBC 9.4 LAB L100.1200 4.2-5.4 M/mm3 Low RBC 3.25 LAB L100.1300 12.0-15.0 g/dl Low HGB 9.5 LAB L100.1400 37-47 % Low HCT 31.4 LAB L100.1500 81-99 fL Normal MCV 96.6 LAB L100.1600 27.0-32.0 pg Normal MCH 29.2 LAB L100.1700 32-36 g/gl Low MCHC 30.3 LAB L100.1810 11.6-14.6 % Normal RDW CV 14.5 LAB L100.1820 35.1-43.9 fl High RDW SD 48.6 LAB L100.1900 150-450 K/mm3 Normal PLT 154 LAB L100.2000 6.2-12.0 fl Normal MPV 10.8 LAB L100.2100 47-70 % High NEUT% 76.5 LAB L100.2200 19-41 % Low LY% 7.5 LAB L100.2300 0-10 % High MONO% 12.4 LAB L100.2400 0-5 % Normal EO% 1.2 LAB L100.2500 0-1 % Normal BASO% 0.2 LAB L100.2550 0.0-0.9 % High IM GRAN % 2.200 Result Comment: IG% - Immature Granulocytes (promyelocytes, myelocytes and metamyelocytes) > 1% indicates that a LEFT SHIFT is Present. LAB L100.2620 2.0-7.7 X10 3/uL Normal Absolute Neut 7.2 LAB L100.2720 0.83-4.51 X10 3/ul Low Absolute Lymph 0.70 LAB L100.9900 Normal PATH REV Reviewed Result Comment: Normocytic anemia. Clinical correlation necessary. Yakov Marquez M.D. 01/04/18 AMENDED REPORT 01/04/18 1418 PATH REV previously reported as: August dina Performed By: #### L100.0100 #### [facility] [address] [place], [address] BEDSIDE GLUCOSE Collected: 01/02/2018 Status: F Source: NAM 9:39 PM [facility] REPOSITORY TYPE CODE TESTS RESULT OUT OF RANGE REFERENCE UNITS LAB L501.080 70-110 mg/dL Normal BEDSIDE GLU 109 Result Comment: MANAGEMENT OF PATIENT CARE PER NURSING PROTOCOL Performed By: #### L501.080 #### [facility] Point of Care [address] [place] [address] BEDSIDE GLUCOSE Collected: 01/02/2018 Status: F Source: NAM 5:42 PM [facility] REPOSITORY TYPE CODE TESTS RESULT OUT OF RANGE REFERENCE UNITS LAB L501.080 70-110 mg/dL Normal BEDSIDE GLU 95 Result Comment: MANAGEMENT OF PATIENT CARE PER NURSING PROTOCOL Performed By: #### L501.080 #### [facility] Point of Care [address] [place] [address] BEDSIDE GLUCOSE Collected: 01/02/2018 Status: F Source: NAM 5:15 PM [facility] REPOSITORY TYPE CODE TESTS RESULT OUT OF REFERENCE UNITS RANGE LAB L501.080 70-110 mg/dL Low BEDSIDE GLU 49 Result Comment: MANAGEMENT OF PATIENT CARE PER NURSING PROTOCOL Performed By: #### L501.080 #### [facility] Point of Care [address] [place] [address] BEDSIDE GLUCOSE Collected: 01/02/2018 Status: F Source: NAM 11:37 AM [facility] REPOSITORY TYPE CODE TESTS RESULT OUT OF REFERENCE UNITS RANGE LAB L501.080 70-110 mg/dL High BEDSIDE GLU 160 Result Comment: MANAGEMENT OF PATIENT CARE PER NURSING PROTOCOL Performed By: #### L501.080 #### [facility] Point of Care [address] [place] [address] BEDSIDE GLUCOSE Collected: 01/02/2018 Status: F Source: NAM 7:44 AM [facility] REPOSITORY TYPE CODE TESTS RESULT OUT OF REFERENCE UNITS RANGE LAB L501.080 70-110 mg/dL High BEDSIDE GLU 128 Result Comment: MANAGEMENT OF PATIENT CARE PER NURSING PROTOCOL Performed By: #### L501.080 #### [facility] Point of Care [address] [place] [address] CBC W/DIFF, AUTOMATED Collected: 01/02/2018 Status: C Source: NAM 5:34 AM [facility] REPOSITORY TYPE CODE TESTS RESULT OUT OF RANGE REFERENCE UNITS LAB L100.1000 4.4-11.0 K/mm3 Normal WBC 10.2 LAB L100.1200 4.2-5.4 M/mm3 Low RBC 3.29 LAB L100.1300 12.0-15.0 g/dl Low HGB 9.8 LAB L100.1400 37-47 % Low HCT 31.8 LAB L100.1500 81-99 fL Normal MCV 96.7 LAB L100.1600 27.0-32.0 pg Normal MCH 29.8 LAB L100.1700 32-36 g/gl Low MCHC 30.8 LAB L100.1810 11.6-14.6 % Normal RDW CV 14.5 LAB L100.1820 35.1-43.9 fl High RDW SD 48.4 LAB L100.1900 150-450 K/mm3 Normal PLT 172 LAB L100.2000 6.2-12.0 fl Normal MPV 10.8 LAB L100.2100 47-70 % High NEUT% 78.7 LAB L100.2200 19-41 % Low LY% 8.6 LAB L100.2300 0-10 % Normal MONO% 9.7 LAB L100.2400 0-5 % Normal EO% 0.6 LAB L100.2500 0-1 % Normal BASO% 0.3 LAB L100.2550 0.0-0.9 % High IM GRAN % 2.100 Result Comment: IG% - Immature Granulocytes (promyelocytes, myelocytes and metamyelocytes) > 1% indicates that a LEFT SHIFT is Present. LAB L100.2620 2.0-7.7 X10 3/uL High Absolute Neut 8.0 LAB L100.2720 0.83-4.51 X10 3/ul Normal Absolute Lymph 0.88 LAB L100.9900 Normal PATH REV Reviewed Result Comment: Neutrophilic left shift. Normocytic anemia. Yakov Marquez M.D. 01/02/18 AMENDED REPORT 01/02/18 1516 PATH REV previously reported as: August dina Performed By: #### L100.0100 #### [facility] [address] [place], [place], [address] BASIC METABOLIC Collected: 01/02/2018 Status: F Source: [place] PROFILE ([facility]) 5:34 AM [facility] REPOSITORY TYPE CODE TESTS RESULT OUT OF RANGE REFERENCE UNITS LAB L501.0100 74-106 mg/dL High GLU 121 Result Comment: Fasting Glucose result from 100 to 125 mg/dL suggests IMPAIRED HOMEOSTASIS per A.D.A. criteria. Please note revised GLUCOSE reference range effective 2017. LAB L501.1000 7-18 mg/dL High BUN 77 LAB L501.1100 0.55-1.02 mg/dL High CREAT,SERUM 1.58 Result Comment: The validity of the calculated GFR AND GFRAA in patients over 70 years has not been determined. Clinical correlation is essential. LAB L501.1110 >60 mL/min Low EST GFR 34 Result Comment: Non- GFR Calc LAB L501.1115 >60 mL/min Low EST GFR - AA 42 Result Comment: GFR Calc LAB L501.1255 ml/min Normal Estimated CRCL 31.46 LAB L501.1300 10-20 RATIO High BUN/CRE 48.7 LAB L501.2200 8.5-10 mg/dL Normal .1 CA 8.9 LAB L501.5300 136-14 mmol/L Normal 5 NA 144 LAB L501.5600 3.5-5. mmol/L Normal 1 K 3.9 LAB L501.5900 98-107 mmol/L Normal CL 99 LAB L501.6100 21.0-3 mmol/L High 2.0 CO2 35.0 LAB L501.6200 5-15 Normal GAP 10 Performed By: #### L500.2500 #### [facility] [address] [place], [address] PROTHROMBIN TIME W/INR Collected: 01/02/2018 Status: F Source: [place] 5:34 AM [facility] REPOSITORY TYPE CODE TESTS RESULT OUT OF REFERENCE UNITS RANGE LAB L300.4150 11.7-14.9 SECONDS High PROTIME 38.1 LAB L300.4200 High alert INR 3.8 Result Comment: CRITICAL VALUE VERIFIED. CALLED TO TIMRN MS3 01/02/18 0614 Ilsa Stanford. RESULTS READ BACK BY SAME . Performed By: #### L300.3900 #### [facility] [address] [place], [place], [address] CRP Collected: 01/02/2018 Status: F Source: [place] 5:34 AM [facility] REPOSITORY TYPE CODE TESTS RESULT OUT OF RANGE REFERENCE UNITS LAB L501.6710 0.0-3.0 mg/L High 26.20 C-REACTIVE PROT Result Comment: C-Reactive Protein (CRP) provides useful information for the diagnosis, therapy and monitoring of inflammatory processes and associated diseases. For the evaluation of Relative Risk for Cardiovascular Disease, a High Sensitivity CRP (HSCRP) should be ordered. Performed By: #### L501.6710 #### [facility] [address] [place], [place], [address] CPK TOTAL, CREATINE Collected: 01/02/2018 Status: F Source: NAM KINASE 5:34 AM [facility] REPOSITORY TYPE CODE TESTS RESULT OUT OF RANGE REFERENCE UNITS LAB L501.3620 26-192 U/L Normal CPK TOTAL 159 Performed By: #### L501.3620 #### [facility] [address] [place], [address] ERYTHROCYTE SED RATE Collected: 01/02/2018 Status: F Source: NAM 5:34 AM [facility] REPOSITORY TYPE CODE TESTS RESULT OUT OF RANGE REFERENCE UNITS LAB L102.0000 0-30 mm/hr High SED RATE 39 Performed By: #### L101.9900 #### [facility] [address] [place], [address] IRON+IRON BINDING Collected: 01/02/2018 Status: F Source: NAM CAPACITY 5:34 AM [facility] REPOSITORY Order Comment: Comments: ok to add on Comments: ok to add on TYPE CODE TESTS RESULT OUT OF RANGE REFERENCE UNITS LAB L503.6075 250-450 ug/dL TIBC Normal 360 LAB L503.6150 50-170 ug/dL IRON Normal 56 LAB L503.6250 15.0-55.0 % IRON Normal SATURATION 15.6 Performed By: #### L503.6030, L503.6550 #### [facility] [address] [place], [address] FERRITIN Collected: 01/02/2018 Status: F Source: NAM 5:34 AM [facility] REPOSITORY Order Comment: Comments: ok to add on Comments: ok to add on TYPE CODE TESTS RESULT OUT OF RANGE REFERENCE UNITS LAB L503.6550 8-252 ng/mL Normal FERRITIN 69 Performed By: #### L503.6030, L503.6550 #### [facility] [address] [place], [address] EMERGENCY DEPARTMENT Observed: 01/01/2018 Status: F Source: NAM SUMMARY 10:58 PM [facility] REPOSITORY [facility] Medical Records Department [address] [place] [address] Emergency Department Summary 01/01/18 1514 MR#: [id number] Acct: [id number] Name: ELIZABETH HO Rep #: [id number] : 1950 67 From: Brian Frey MD PCP: Williams Parekh MD Status: ADM JANE - ER Visit Summary Date of Service: 01/01/18 Chief Complaint: Right hip pain History of Present Illness: The patient is a [address] Parekh. She reports that she has right hip pain that began 4 days ago. No trauma. No fall, MVA, or change in activity. She was seen in the emergency department at that time and had x-rays and blood work obtained. She reports that she was discharged on tramadol. This was not controlling her pain and she saw her primary care physician was placed on oxycodone and prednisone. Despite this she still complains of an aching pain is 10 out of 10 severity. Is worsened by movement. Review of systems: General: No fever, chills, cold sweats. Cardiovascular: No chest pain, palpitations. Respiratory: No cough, shortness of breath, dyspnea on exertion. Gastrointestinal: No abdominal pain, nausea, vomiting, diarrhea, melena, or hematochezia. Genitourinary: No dysuria, frequency, hematuria. Skin: No rash. Neuro: No headache, numbness, weakness. Physical Examination: Vitals: Stable. Afebrile. General: Well-nourished and well-developed. Head: Normocephalic atraumatic. Neck: Supple, no lymphadenopathy. No JVD. Nontender. Cardiovascular: Regular rate and rhythm. No murmurs. Respiratory: No respiratory distress. Clear to auscultation bilaterally. Abdominal: Soft, nontender, nondistended, normal bowel sounds. No guarding, rebound, or peritoneal signs. Back: Nontender. Extremities: Moderate tenderness palpation of the greater trochanter. Pain with even light palpation of her skin only. There is no rash or vesicular lesions to suggest shingles. She has 2+ pitting edema over lower extreme is bilateral chronic venous stasis changes. She is neurovascular intact distally. She is a palpable dorsalis pedis pulse bilaterally.. Skin: Normal color, no rash. Neurologic: Alert and oriented 3. Cranial nerves II through XII are intact. Normal strength and sensation. Psych: Normal affect. Test Results: Right femur x-ray shows diffuse osteopenia with no acute disease. CT of the hip shows moderate osteoarthritis. Emergency Department Course and Treatment: Patient was treated with a dose of morphine IV. She was discussed with case management and they had physical therapy come and see her. Patient is not safe for discharge and ambulation at home. She does live alone. Treatment Plan: Patient will be admitted to the hospital overnight for precertification for a detention. She was discussed with Dr. Mendez. Disposition: Admitted in stable condition. Impression: 1. Right hip pain, acute. 2. Coumadin coagulopathy. This note was generated with [employer] software. It may contain incorrect words, spelling, and punctuation that were not noted in review of the chart prior to signing ED Disposition - Plan for ED Patient: Chief Complaint: Lower Extremity Injury Referrals: Williams Parekh MD [Primary Care Provider] - What to do if you have Problems For any increased pain, shortness of breath, bleeding, nausea or vomiting, chest pain, or any unexpected problems, contact your Primary Care Provider. Call [facility] ([phone]) or report to the closest Emergency Room. Call 911 if necessary. 01/01/18 2258 <Electronically signed by Brian Frey MD> Date Brian Frey MD Cosigner Signature (If Indicated): Date CC: Williams Parekh MD BEDSIDE GLUCOSE Collected: 01/01/2018 Status: F Source: NAM 10:05 PM [facility] REPOSITORY TYPE CODE TESTS RESULT OUT OF REFERENCE UNITS RANGE LAB L501.080 70-110 mg/dL High BEDSIDE GLU 227 Result Comment: MANAGEMENT OF PATIENT CARE PER NURSING PROTOCOL Performed By: #### L501.080 #### [facility] Point of Care [facility] [place] [address] BASIC METABOLIC Collected: 01/01/2018 Status: F Source: NAM PROFILE (BMP) 8:17 PM [facility] REPOSITORY TYPE CODE TESTS RESULT OUT OF RANGE REFERENCE UNITS LAB L501.0100 74-106 mg/dL High GLU 290 Result Comment: Glucose result greater than or equal to 200 mg/dL suggests DIABETES MELLITUS per A.D.A. criteria. Please note revised GLUCOSE reference range effective 2017. LAB L501.1000 7-18 mg/dL High BUN 77 LAB L501.1100 0.55-1.02 mg/dL High CREAT,SERUM 1.72 Result Comment: The validity of the calculated GFR AND GFRAA in patients over 70 years has not been determined. Clinical correlation is essential. LAB L501.1110 >60 mL/min Low EST GFR 31 Result Comment: Non- GFR Calc LAB L501.1115 >60 mL/min Low EST GFR - AA 38 Result Comment: GFR Calc LAB L501.1255 ml/min Normal Estimated CRCL 28.90 LAB L501.1300 10-20 RATIO High BUN/CRE 44.8 LAB L501.2200 8.5-10 mg/dL Normal .1 CA 8.8 LAB L501.5300 136-14 mmol/L Normal 5 NA 139 LAB L501.5600 3.5-5. mmol/L Normal 1 K 4.5 LAB L501.5900 98-107 mmol/L Normal CL 98 LAB L501.6100 21.0-3 mmol/L High 2.0 CO2 37.0 LAB L501.6200 5-15 Low GAP 4 Performed By: #### L500.2500 #### [facility] [place], [address] CBC W/DIFF, AUTOMATED Collected: 01/01/2018 Status: F Source: NAM 8:17 PM [facility] REPOSITORY TYPE CODE TESTS RESULT OUT OF RANGE REFERENCE UNITS LAB L100.1000 4.4-11.0 K/mm3 Normal WBC 10.3 LAB L100.1200 4.2-5.4 M/mm3 Low RBC 3.44 LAB L100.1300 12.0-15.0 g/dl Low HGB 9.9 LAB L100.1400 37-47 % Low HCT 33.0 LAB L100.1500 81-99 fL Normal MCV 95.9 LAB L100.1600 27.0-32.0 pg Normal MCH 28.8 LAB L100.1700 32-36 g/gl Low MCHC 30.0 LAB L100.1810 11.6-14.6 % High RDW CV 14.7 LAB L100.1820 35.1-43.9 fl High RDW SD 51.0 LAB L100.1900 150-450 K/mm3 Normal PLT 187 LAB L100.2000 6.2-12.0 fl Normal MPV 10.8 LAB L100.2100 47-70 % High NEUT% 87.7 LAB L100.2200 19-41 % Low LY% 3.5 LAB L100.2300 0-10 % Normal MONO% 7.6 LAB L100.2400 0-5 % Normal EO% 0.0 LAB L100.2500 0-1 % Normal BASO% 0.1 LAB L100.2550 0.0-0.9 % High IM GRAN % 1.100 Result Comment: IG% - Immature Granulocytes (promyelocytes, myelocytes and metamyelocytes) > 1% indicates that a LEFT SHIFT is Present. LAB L100.2620 2.0-7.7 X10 3/uL High Absolute Neut 9.1 LAB L100.2720 0.83-4.51 X10 3/ul Low Absolute Lymph 0.36 LAB L100.4500 Normal SMEAR COMMENT SCANNED Result Comment: LYMPHOPENIA NOTED Performed By: #### L100.0100 #### [facility] [address] [place], [place], [address] PROTHROMBIN TIME W/INR Collected: 01/01/2018 Status: F Source: [place] 8:17 PM [facility] REPOSITORY TYPE CODE TESTS RESULT OUT OF REFERENCE UNITS RANGE LAB L300.4150 11.7-14.9 SECONDS High PROTIME 37.7 LAB L300.4200 High alert INR 3.8 Result Comment: CRITICAL VALUE VERIFIED. CALLED TO DCLARK 01/01/18 Lena Faria. RESULTS READ BACK BY SAME . Performed By: #### L300.3900 #### [facility] [address] [place], [place], [address] MAGNESIUM Collected: 01/01/2018 Status: F Source: [place] 8:17 PM [facility] REPOSITORY TYPE CODE TESTS RESULT OUT OF RANGE REFERENCE UNITS LAB L501.5200 1.6-2.6 mg/dL High MG 2.8 Performed By: #### L501.5200 #### [facility] [address] [place], [address] HISTORY AND PHYSICAL Observed: 01/01/2018 Status: F Source: [place] EXAM 6:28 PM [facility] REPOSITORY [facility] Medical Records Department [address] [place] [address] History and Physical 01/01/18 1751 MR#: [id number] Acct: [id number] Name: ELIZABETH HO Rep #: [id number] : 1950 67 From: Cristian ALFARO PCP: Williams Parekh MD Status: ADM JANE Y Location: [place] [address] ADDENDUM by Loren Mendez on 01/01/18 at 1828 Code Visit ATTENDING PHYSICIAN NOTE: I have seen and examined the patient independently and agree with the assessment, plan, history per Cristian Dotson as noted. Chief Complaint: Dyspnea, Chest pain, Edema. The patient is a 66 y/o F w/ PMHx: AOCD, CAD, Systolic CHF/Non- ischemic cardiomyopathy, PAF, s/p pacemaker and AICD, Diabetes mellitus type II, HTN, HLD, Valvular Heart Disease s/o AVR (ZAK) and MVR but not intervention candidate, RA, CKD stage III, Chronic BL LE Lymphedema/PVD, Obesity who presents to the [facility] ED on 01/01/18 with history of ongoing intractable right hip pain starting approximately 1 week prior, no specific inciting events or trauma with ED evaluation upon initial onset with discharge to home on tramadol without improvement and follow-up evaluation at primary care office with administration of oxycodone and prednisone burst therapy without improvement now returning as patient unable to walk and ongoing intractable pain. In the ED workup included T 97.7, heart rate 70, BP 123/104, respiratory rate 18, 99% on 2 L nasal cannula, no labs were obtained upon ED presentation, CT right lower extremity and hip with moderate osteoarthrosis of the right hip plain film of the right femur with diffuse osteopenia with no demonstrated fracture or suspicious osseous lesion. In the ED the patient administered morphine 4 mg IV 1 with some improvement. Patient initially reticent to narcotic therapy as well as Dr. Cronin consultation for consideration for injection but following discussions amenable to evaluation and possible injection if appropriate. Labs, Allergies, Home medications, Social Hx, PSurgHx, Family Hx per note below. Admission Review of Systems: CONSTITUTIONAL: No weight loss, fever, chills,+ weakness or fatigue. HEENT: Eyes: No visual loss, blurred vision, double vision or yellow sclerae. Ears, Nose, Throat: No hearing loss, sneezing, congestion, runny nose or sore throat. SKIN: No rash or itching, lesions, wounds. CARDIOVASCULAR: No chest pain, chest pressure, edema, chronic orthopnea, No syncopal events. RESPIRATORY: No shortness of breath, worse with exertion, No cough or sputum, wheezing, hemoptysis. GASTROINTESTINAL: No anorexia, nausea, vomiting or diarrhea, abdominal pain, melena, BRBPR. GENITOURINARY: No dysuria, frequency, urgency or retention. NEUROLOGICAL: No headache, dizziness, syncope, paralysis, ataxia, numbness or tingling in the extremities, focal weakness, change in bowel or bladder control, seizure. MUSCULOSKELETAL: + Intractable R hip pain, thigh. HEMATOLOGIC: + anemia, bleeding or bruising. LYMPHATICS: No enlarged nodes. No history of splenectomy. PSYCHIATRIC: + history of depression or anxiety. ENDOCRINOLOGIC: No reports of sweating, cold or heat intolerance. No polyuria or polydipsia. ALLERGIES: No history of asthma, hives, eczema or rhinitis. Admission VS: As noted below. Physical Examination: General: awake, alert, oriented x 3 and cooperative, seated upright in the ED bed, fatigued appearance, notes still having R hip pain despite ED regimen. Skin: normal color, turgor, no icterus, cyanosis aside very staged ecchymoses to the extremities as well as chronic venous stasis skin changes bilateral lower extremities. HEENT: AT/NC, EOMI, PERRLA, mildly dry MM, chronic speech impediment, no evidence carotid bruit, unable to assess JVD secondary to thickened neck. Lungs: Diminished BS BL, > bases, moderate effort, no ronchi, rales or wheezing. Heart: Regular rate and rhythm; no gallop, rub audible, s/p AVR, MR. Abdomen: soft, obese, NTTP, ND, normal BS, no HSM; however, habitus makes it difficult to assess. Extremities: no cyanosis, clubbing, chronic BL LE lymphedema usually 1-2+ ankle to knee with chronic venous stasis skin changes Neurological: patient awake, alert, oriented x 3; cognitive function intact; pupils equally reactive to light and accomodation; cranial nerves II-XII grossly normal, moving all 4 extremities however limited especially right lower extremity secondary to discomfort with movement and with flexion tension attempts, no focal deficits, strength severely globally decreased. Psychiatric: affect appears mildly fatigued, no acute evidence of depressive or anxiety feelings. Assessment and Plan: The patient is a 66 y/o F w/ PMHx: AOCD, CAD, Systolic CHF/Non- ischemic cardiomyopathy, PAF, s/p pacemaker and AICD, Diabetes mellitus type II, HTN, HLD, Valvular Heart Disease s/o AVR (ZAK) and MVR but not intervention candidate, RA, CKD stage III, Chronic BL LE Lymphedema/PVD, Obesity who presents to the [facility] ED on 01[facility]01[facility]18 with history of ongoing intractable right hip pain starting approximately 1 week prior, no specific inciting events or trauma with ED evaluation upon initial onset with discharge to home on tramadol without improvement and follow-up evaluation at primary care office with administration of oxycodone and prednisone burst therapy without improvement now returning as patient unable to walk and ongoing intractable pain. (1) Acute Intractable R Hip Pain, Debility: In the ED workup included T 97.7, heart rate 70, BP 123/104, respiratory rate 18, 99% on 2 L nasal cannula, no labs were obtained upon ED presentation, CT right lower extremity and hip with moderate osteoarthrosis of the right hip plain film of the right femur with diffuse osteopenia with no demonstrated fracture or suspicious osseous lesion. Will admit to MS, maintain on fall precautions, frequent positioning, po/IV pain regimen, , anti-emetics, bowel regimen, defer steroids as recent trial not effective and DM history. Dr. Samaniego consulted. Will consult PT and OT for evaluation. CM consulted as suspect likely will need SNF placement. Additional Co-morbidities: (2) Chronic Systolic CHF w/ Chronic Hypoxic Respiratory Failure (3L NC): Will continue medical therapy w/ asa, statin, BB, lasix, spironolactone, no on ACEI likely secondary to CKD stage III. Recent ECHO 06/2017. (2) PAF/PAT: Maintain on coumadin w/ admitting INR pending and trend, continue home coreg, amiodarone regimen. (3) Valvular Heart Disease: s/p AVR (ZAK), porcine valve. Recent ECHO as noted 06/2017. (4) CKD stage III: Baseline Cr 1.6-1.8, requested admission BMP. (5) Hypothyroidism: Continue home synthroid regimen. (6) Hypertension: Maintain on coreg, spironolactone, metalozone, lasix, PRN hydralazine. (7) CAD: Maintain on asa, coumadin, statin, coreg. (8) Hyperlipidemia: Continue home statin regimen. (9) Diabetes mellitus type II: Hold oral home regimen, continue home insulin regimen, ADA diet, accu checks w/ ISS. (10) Chronic Normocytic Anemia, AOCD: Admission CBC pending. (11) DVT prophylaxis: SCDs, pending INR, continue home coumadin regimen if appropriate. (!2) CODE status: Discussed CODE status at length including difference between FULL code, DNR-CCA and DNR-CC status. Following discussions about the differences in these status, requested continued DNR-CCA, no intubation status. She confirms that living will and HCPOA in place (trademark attorney). Advanced Care Planning Face to Face Time: 17 minutes. OBSV E AND M: [id number] Initial observation care L3 Procedures: 95345 Advncd Care Plan 30 Min 01/01/18 1360 <Electronically signed by Loren Mendez > Date Loren Mendez cc: ANGELINA Dotson; Loren Mendez; Williams Parekh MD * Signed Problem List (1) Hip pain Status: Acute (2) Debility Status: Acute (3) CHF exacerbation Status: Chronic (4) Atrial fibrillation Status: Chronic Qualifiers: (5) Chronic renal insufficiency Status: Chronic (6) CAD (coronary artery disease) Status: Chronic (7) ICD (implantable cardioverter-defibrillator) in place Status: Chronic (8) Aortic stenosis Status: Chronic Comment: s/p TAVR (9) Paroxysmal atrial tachycardia Status: Chronic (10) ICD (implantable cardioverter-defibrillator) in place Status: Chronic (11) Anemia of chronic disease Status: Chronic (12) Cardiomyopathy, noncoronary Status: Chronic (13) HTN (hypertension) Status: Chronic Qualifiers: (14) S/p TAVR (transcatheter aortic valve replacement), bioprosthetic Status: Chronic Comment: 26 mm Bond Sapein Bioprosthetic Aortic Valve (15) HLD (hyperlipidemia) Status: Chronic Qualifiers: (16) Chronic atrial fibrillation Status: Chronic History of Present Illness Date of Admission: 01/01/18 Chief Complaint: right hip pain The patient is a 67 year old F with an extensive medical hx as above and otherwise in her normal state of health who presents to the ER with c/o right hip pain that began last monday. Pt states that the pain came on spontaneously without any inciting trauma or specific movement. It was severe enough to warrant going to the ER, during which imaging was performed and she was told she had arthritis and sent home with tramadol. Her pain did not improve at all so she then later went to see her BROKE BEATER OPERATOR, who placed her on steroids and oxycodone. She had minimal relief but today her pain was worse. She is still able to ambulate with difficulty. She has right lumbar pain, right hip, and right thigh pain. She does not feel safe returning home in this condition and is afraid that she might fall. She ambulates with a rollator. She is not interest in injections at this time. [] Past Medical History Past Medical History (Chronic Problems): Chronic Problems (Last Reviewed 11/20/17 @ 13:02 by Stefany Carrion) CHF exacerbation (Chronic) Atrial fibrillation (Chronic) Chronic renal insufficiency (Chronic) CAD (coronary artery disease) (Chronic) ICD (implantable cardioverter-defibrillator) in place (Chronic) Aortic stenosis (Chronic) s/p TAVR Paroxysmal atrial tachycardia (Chronic) Rheumatic tricuspid insufficiency (Chronic) ICD (implantable cardioverter-defibrillator) in place (Chronic) Ventricular tachycardia (paroxysmal) (Chronic) S/P AICD Anemia of chronic disease (Chronic) Cardiomyopathy, noncoronary (Chronic) HTN (hypertension) (Chronic) S/p TAVR (transcatheter aortic valve replacement), bioprosthetic (Chronic) 26 mm Bond Sapein Bioprosthetic Aortic Valve HLD (hyperlipidemia) (Chronic) Mitral valve stenosis and regurgitation (Chronic) Mild to moderate mitral valve stenosis with moderate mitral valve insufficiency Chronic atrial fibrillation (Chronic) Medical History: Medical History (Last Reviewed 11/20/17 @ 13:02 by Stefany Carrion) Aortic stenosis (Chronic) I35.0 s/p TAVR Paroxysmal atrial tachycardia (Chronic) I47.1 Rheumatic tricuspid insufficiency (Chronic) I07.1 ICD (implantable cardioverter-defibrillator) in place (Chronic) Z95.810 Ventricular tachycardia (paroxysmal) (Chronic) I47.2 S/P AICD Anemia of chronic disease (Chronic) D63.8 Cardiomyopathy, noncoronary (Chronic) I42.8 HTN (hypertension) (Chronic) I10 HLD (hyperlipidemia) (Chronic) E78.5 Mitral valve stenosis and regurgitation (Chronic) I05.2 Mild to moderate mitral valve stenosis with moderate mitral valve insufficiency Chronic atrial fibrillation (Chronic) I48.2 CKD (chronic kidney disease) N18.9 Cellulitis of leg, left L03.116 Family history of CVA Z82.3 History of rheumatic fever Z86.79 Lymphedema of both lower extremities I89.0 PAOD (peripheral arterial occlusive disease) I77.9 Type 2 diabetes mellitus E11.9 Chronic venous insufficiency I87.2 Rheumatoid arthritis M06.9 CAD (coronary artery disease) (Inactive) I25.10 CHF (congestive heart failure) (Inactive) I50.9 ef around 40% Cellulitis of leg, left (Inactive) L03.116 left second toe Chronic kidney disease (Inactive) N18.9 Chronic venous insufficiency (Inactive) bilateral legs 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 Encounter for cardioversion procedure (Inactive) Z01.89 Exogenous obesity (Inactive) E66.9 Family history of CVA (Inactive) Z82.3 Leg pain, bilateral (Inactive) M79.604, M79.605 Lymphedema (Inactive) I89.0 Lymphedema of both lower extremities (Inactive) I89.0 Morbid obesity (Inactive) E66.01 PAOD (peripheral arterial occlusive disease) (Inactive) I77.9 Pulmonary artery hypertension (Inactive) I27.2 Right ventricular systolic pressure estimated at 50 in November 2016 Rheumatoid arthritis (Inactive) M06.9 Urinary tract infection (Inactive) N39.0 Allergies amoxicillin trihydrate [From Augmentin] Allergy (Verified 11/20/17 13:00) Rash potassium clavulanate [From Augmentin] Allergy (Verified 11/20/17 13:00) Rash Sulfa (Sulfonamide Antibiotics) Allergy (Verified 11/20/17 13:00) Hives vancomycin Allergy (Verified 11/20/17 13:00) Other LD SYNDROME Home Medications: Ambulatory Orders Medication Instructions Recorded Aspirin [Aspirin, Baby] 81 mg PO DAILY 03/04/14 Insulin Glargine,Hum.rec.anlog 42 unit SQ BREAKFAST 12/17/16 Surgical History: Surgical History (Last Reviewed 11/20/17 @ 13:02 by Stefany Carrion) S/p TAVR (transcatheter aortic valve replacement), bioprosthetic (Chronic) Z95.3 26 mm Bond Sapein Bioprosthetic Aortic Valve History of tonsillectomy and adenoidectomy Z98.890 History of total hysterectomy Z98.890, Z90.710 Hx of appendectomy Z98.890, Z90.49 Surgical History: appendectomy, tonsillectomy, - - TAVR, ICD/PM, AV fistula Psychiatric History: No pertinent psych hx 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: No pertinent LEAD SECURITY OFFICER history Smoking Status: Never smoker - *Family History Maternal Family History: Family History (Last Reviewed 11/20/17 @ 13:02 by Stefany Carrion) Father CVA (cerebral vascular accident) Valvular heart disease Presence of permanent cardiac pacemaker Mother CVA (cerebral vascular accident) Other Family history of CVA History Items: - - heart disease, stroke Paternal Family History: Family History (Last Reviewed 11/20/17 @ 13:02 by Stefany Carrion) Father CVA (cerebral vascular accident) Valvular heart disease Presence of permanent cardiac pacemaker Mother CVA (cerebral vascular accident) Other Family history of CVA History Items: - - father with kidney disease, heart disease and stroke Review of Systems Constitutional: Denies: Chills, Fever, Weight Change HEENT: Denies: Head Aches, Sinus Congestion, Sinus Drainage Cardiovascular: Denies: Chest Pain, Palpitations Respiratory: Denies: Cough, Shortness of breath at rest, Sputum production Gastrointestinal: Denies: Abdominal Pain, Nausea, Vomiting Genitourinary: Denies: Dysuria Musculoskeletal: Reports: - - right hip, right thigh, right lumbar pain. Denies: Joint Pain, Joint Tenderness Skin: Denies: Rash, Wounds Neurological: Denies: Numbness, Tingling, Focal weakness Psychiatric: Denies: Anxiety, Depression, Homicidal Ideations, Suicidal Ideations Hematologic/ Lymphatic: Denies: Easy Bruising, Easy Bleeding VTE Information - Inpt Only VTE Present on Admission: No VTE Mechan Device Prophylaxis: None VTE Pharm Prophylaxis ordered?: Yes Patient Problems: Active and Suspected Problems (Last Reviewed 11/20/17 @ 13:02 by Stefany Carrion) Hip pain (Acute) Debility (Acute) - Physical Exam General: Alert, Oriented x3, Cooperative HEENT: Atraumatic, PERRLA, EOMI, Normocephalic Neck: Supple, No JVD, Negative Carotid Bruits Lungs: Clear to auscultation, Normal air movement Cardiovascular: Regular rate, Murmur - 2/6 systolic murmur best heard over the LSB 2nd intercostal space. Abdomen: Bowel Sounds Present, Soft, Non Tender, Obese Extremities: Edema - lymphedema Skin: No rashes, No breakdown Musculoskeletal: - - tender to light palp worst over thigh, also over hip. no crepitation Neurological: Cranial nerves II-XII grossly intact Psych/Mental Status: Anxious, Alert and oriented to time, place, person, mood and affect Vital Signs Temp Pulse Resp BP Pulse Ox 97.7 F L 70 18 123/104 H 99 01/01/18 14:37 01/01/18 14:37 01/01/18 14:37 01/01/18 14:37 01/01/18 14:37 Oxygen Flow Rate (L/min) 2 Oxygen Delivery Method Nasal Cannula Weight: 207 lb 3.752 oz Body Mass Index (BMI) 33.4 Finger Stick Blood Glucose 261 Assessment/Plan All Active Problems (Last Reviewed 11/20/17 @ 13:02 by Stefany Carrion) Hip pain (Acute) Debility (Acute) Atrial fib/flutter, transient (Resolved) Atrial fibrillation with rapid ventricular response (Resolved) Bilateral lower leg cellulitis (Resolved) Cellulitis of leg (Resolved) Chest pain (Resolved) Skin tear of left upper extremity (Resolved) Venous stasis ulcer (Resolved) Venous ulcer of leg (Resolved) Cellulitis of leg without foot, left (Ruled-out) 1. Intractable right hip pain - imaging (CT LE, Femur XR) with arthritis, degen changes, no acute fractures. Difficulty ambulating. Admit to MS and start aggressive pain management and PTOT. Pt likely unable to return home, needs short term SNF. 2. CAD, CHF, ischemic cardiomyopathy, HTN - continue home meds. Pt of Dr. See. PM/ICD in place. 3. PAfib - appears to be in SR and rate controlled, continue amiodarone, coreg, warfarin. 4. Lymphedema - daily fallon wraps 5. CKD IV - prior dialysis now off. Follows [place] neph[facility]. NO NSAIDS. 6. T2DM - continue insulin regimen with SSI 7. Hx s/p TAVR 8. Hypothyroid - synthroid 9. Anemia of chronic dz - last hgb stable DVT ppx: warfarin DC planning: SNF, PTOT This patient was seen by Cristian Dotson PA-C under the supervision of Doctor Vanessa. 01/01/181803 <Electronically signed by Cristian ALFARO> Date Cristian ALFARO 01/01/181818<Electronically signed by Loren Mendez > Cosigner Signature: Date (if applicable) Loren Mendez CC: ANGELINA Dotson; Loren Mendez; Williams Parekh MD Signed FEMUR MIN 2 VIEWS Observed: 01/01/2018 Status: F Source: [place] 3:13 PM [facility] REPOSITORY [facility] Imaging Services [address] [place] [address] Femur Min 2 Views MR#: [id number] Acct: [id number] Name: ELIZABETH HO Rep #: [id number] : 1950 F 67 From: Sriram Vila MD PCP: Williams Parekh MD Status: REG ER Study: Femur Min 2 Views Date of Exam: 01/01/18 Exam# [id number] Ordering Dr: Brian Frey MD STUDY: X-RAY - RIGHT FEMUR REASON FOR STUDY: Female, 67 years old. Right hip and leg pain TECHNIQUE: Radiological exam, femur, minimum 2 views 5 views COMPARISON: None. FINDINGS: There is diffuse demineralization of the femur. Normal visualized soft tissue structure. There is no demonstrated fracture or destructive process. Vascular calcifications. RAD/Femur Min 2 Views IMPRESSION: Diffuse osteopenia, no demonstrated fracture or suspicious osseous lesion. Electronically Signed: Raymundo Vila MD at 16:36 EDT , Service support , CC: Williams Parekh MD; Brian Frey MD Porcelain Turner: Signed EXTREMITY LOWER Observed: 01/01/2018 Status: F Source: [place] WITHOUT CONTRA 3:13 PM [facility] REPOSITORY [facility] Imaging Services [address] [place] [id number] Extremity Lower without Contra MR#: [id number] Acct: [id number] Name: ELIZABETH HO Rep #: [id number] : 1950 F 67 From: Niesha Lopez MD PCP: Williams Parekh MD Status: REG ER Study: Extremity Lower without Contra Date of Exam: 01/01/18 Exam# [id number] Ordering Dr: Brian Frey MD STUDY: CT HIP WITHOUT CONTRAST RIGHT REASON FOR EXAM: Female, 67 years old. Right hip pain, arthritis. RADIATION DOSAGE (If Supplied By Facility): CTDIvol = ( 42.03 ) mGy, DLP = ( 1490.39 ) mGycm. Individualized dose optimization techniques were used for this CT.? FLUOROSCOPY TIME (if supplied): ( ) minutes/seconds TECHNIQUE: Axial images were obtained from the iliac crest through the lesser trochanters without contrast. Coronal and sagittal reformats were performed. COMPARISON: None. FINDINGS: There is no fracture or dislocation. There is mild joint space narrowing. Moderate subchondral cystic changes are noted in the femoral head. Mild subchondral cystic changes are noted in the acetabulum, greatest posteromedially. Muscles about the right hip are unremarkable. Visualized pelvic structures are unremarkable. CT/Extremity Lower without Contra IMPRESSION: Moderate osteoarthrosis of the right hip. Electronically Signed: Niesha Lopez MD at 16:53 EDT Tel , Service support , CC: Williams Parekh MD; Brian Frey MD Porcelain Turner: Signed PROGRESS Observed: 12/29/2017 Status: COMPLETED Source: [place] 3:[address] [facility] REPOSITORY O ID: [id number] Author: Maria Esther Campbell LPN Service: (none) Author Type: (none) Type: Progress Notes Filed: 12/29/2017 3:38 PM Note Text: 67 year old female here for INACTIVATED INFLUENZA VACCINE. [id number] Season Patient is identified by name and date of : Yes [] CONTRAINDICATIONS color enhanced section Age less than 6 months? No Allergy to eggs, chicken, chicken feathers, or chicken dander? No Allergy to thimerosal (a preservative) or formaldehyde? No History of severe reaction to any vaccine component or a previous dose of influenza vaccination? No History of Guillain-[place]eters[place] Syndrome within 6 weeks after a previous influenza vaccine? No Current moderate or severe illness? No Current temperature greater or equal to 100.4F? No History of Bone Marrow Transplant in past 6 months or solid organ transplant in the past 3 months ? No [] VERIFICATION color enhanced section Was the answer Yes for any of the above contraindications? No contraindications present. Acceptable to proceed with vaccine. Patient/guardian agrees the above answers are true to the best of their knowledge? Yes Flu vaccine information sheet given? Yes See immunization activity in [facility] for details of immunizations adminstered today. Patient age: [age] year old For The Flu Season 6-35 months old: Fluzone 0.25 ml - IM (Preservative Free) 3 years of age: Fluzone 0.5 ml - IM (Preservative Free) 3 years and older: Fluzone 0.5 ml- IM-(with Preservatives) 65+ years old: Fluzone High-Dose 0.5 ml - IM (Preservative Free) REMEMBER: If patient is less than 9 years of age and this is the first vaccine of Influenza to be received in any flu season, they should receive a second dose in one months time. 67 year old female here for INACTIVATED INFLUENZA VACCINE. Season Patient is identified by name and date of : Yes [] CONTRAINDICATIONS color enhanced section Age less than 6 months? No Allergy to eggs, chicken, chicken feathers, or chicken dander? No Allergy to thimerosal (a preservative) or formaldehyde? No History of severe reaction to any vaccine component or a previous dose of influenza vaccination? No History of Guillain-Peters[place] Syndrome within 6 weeks after a previous influenza vaccine? No Current moderate or severe illness? No Current temperature greater or equal to 100.4F? No History of Bone Marrow Transplant in past 6 months or solid organ transplant in the past 3 months ? No [] VERIFICATION color enhanced section Was the answer Yes for any of the above contraindications? No contraindications present. Acceptable to proceed with vaccine. Patient/guardian agrees the above answers are true to the best of their knowledge? Yes Flu vaccine information sheet given? Yes See immunization activity in [facility] for details of immunizations adminstered today. Patient age: [age] year old For The [id number] Flu Season 6-35 months old: Fluzone 0.25 ml - IM (Preservative Free) 3 years of age: Fluzone 0.5 ml - IM (Preservative Free) 3 years and older: Fluzone 0.5 ml- IM-(with Preservatives) 65+ years old: Fluzone High-Dose 0.5 ml - IM (Preservative Free) REMEMBER: If patient is less than 9 years of age and this is the first vaccine of Influenza to be received in any flu season, they should receive a second dose in one months time. PROGRESS Observed: 12/29/2017 Status: COMPLETED Source: [place] 3:[address] [facility] [place] REPOSITORY O ID: [id number] Author: Ema Curry (Cns) Service: (none) Author Type: Nurse Specialist Type: Progress Notes Filed: 12/29/2017 3:38 PM Note Text: OUTPATIENT VISIT DATE December 29, 2017 OUTPATIENT VISIT TYPE ESTABLISHED PRIMARY CARE PHYSICIAN: Williams Parekh MD CHIEF COMPLAINT: Patient presents with: Hospital F/U History of Present Illness: Elizabeth Ho is a 67 year old female who was last seen 09/2017. She has been seen in the past for ACTIVE PROBLEM LIST Other and unspecified hyperlipidemia Non Morbid Obesity Due to Excess Calories Paroxysmal ventricular tachycardia Edema Venous (Peripheral) Insufficiency Ckd (Chronic Kidney Disease) Stage 4, Gfr 15-29 Ml/Min ([facility]) Varicose Veins of Lower Extremities With Ulcer ([facility]) Vitamin D Deficiency Secondary Hyperparathyroidism ([facility]) Cad (Coronary Artery Disease), [place] Coronary Artery Aortic Stenosis Mitral Stenosis On Home O2 Pvd (Peripheral Vascular Disease) ([facility]) Anemia Urinary Incontinence Implantable Cardioverter-Defibrillator (Icd) in Situ Dvt Prophylaxis Constipation Chf (Congestive Heart Failure), [place] Class Iii (Hcc) Gout, Arthritis 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 She was seen in [facility] yesterday for this pain. Pain was present for 2 days prior to arrival of increasing intensity. Dull ache in her right hip. It hurts to bend her leg and also with sitting. No pain radiating all the way down her leg however she is having pain in the right anterior thigh area and groin. Pain is primarily over the right greater trochanter area. No falls. No fever or chills. Exam unremarkable except for tenderness over the bilateral hip. No erythema. Normal pulses of lower extremity. Some pain with logroll. Screening labs were obtained. INR is therapeutic. Do not suspect a vascular problem. X-ray show arthritic changes of right hip and sacroiliac joint consistent with degenerative osteoarthritic changes. Normal bilateral if she'll tuberosity's. Normal visualized femoral head. Osteoarthritic spur formation of the acetabular rim. Moderate articular joint space narrowing of the hip. Degenerative changes of the lumbar spine. WBCs 10.5 hemoglobin 10.1 and hematocrit 33.7 platelets 175 glucose 209 BUN 70 creatinine 1.91 INR 2.3. Treated with morphine and tramadol in the ER with some relief. She was discharged home. Since yesterday she was discharged with tramadol and Tylenol for home use for pain. She feels pain is poorly controlled with these medications. No recent hospital or ED visits. No new medical problems or medications. Able to obtain medications. No problems with taking medications or note side effects. PAST MEDICAL HISTORY Diagnosis Date - Acute on chronic combined systolic and diastolic congestive heart failure (HCC) 03/20/2013 NICM by outside echo EF 35%, stage II diastolic dysfunction 03/19 RHC: CI by Gudelia 2.75, SVR 1129, PA 47/18, wedge 22 On admission 06/2013, clinically euvolaemic -not on ACEi/ARB currently with hx of renal dysfunction and severe -continue carvedilol -ICD in situ - Interrogate ICD to determine if decompensation is due to underlying arrhythmia (h/o VT/AF). Will need to call on Monday morning. - Decrease coreg to 3.125 mg BID. Attempted Hydralazine but patient did not tolerate due to hypotension on 07/06. - Slight bump in Cr 07/07 so decrease Lasix to 40 mg BID. Will continue Aldactone but will need to monitor CrCl. -Will need follow up labs- arranged for at SNF - Anemia 05/15/2013 Chronic anemia of unclear etiology. Received 2 units PRBC transfusion in April at OSH. Previous iron studies in our system suggestive of AoCD. Reports Colonoscopy/EGD ~ 2 years ago which did not show any major abnormalities. Presents with severe anemia in setting of supratherapeutic INR this admission. Denies BRBPR/melena but may have bleeding AVMs in the setting of severe . Also in setting of thrombocytopenia. Concern for DIC - fibrinogen negative -Received 6u PRBC since admission, stools melanotic Plan: - Monitor H/H, monitor coags/plts, check hemolysis labs as add-ons insufficient yesterday - NPO for possible EGD/Cscope today-> revealed polyps but bowel prep was inadequate, plan for capsule study 07/24/2013, NPO. ->capsule study neg for bleed. Pt needs elective colonoscopy as out pt to remove polyps. Recheck CBC next Monday. August 02. Fax results to DR George. - Aortic stenosis 03/20/2013 Progressive SOB on exertion, heart failure symptoms over the past 1 week preceding admission 07/05/2013. Known to have severe calcific tri-leaflet aortic valve stenosis. Denies chest pain, syncope, pre syncope. Echo: ALEX 0.81cm2, dimensionless index 0.23, pk/mn gradients 62/35 mmHg on 07/08/2013 Plan: - Planned for TF TAVR on 07/23/2013 - possibly delayed given likely GIB - Recently postponed due to UTI - will recheck UA and urine culture. Now postponed due to anemia. 07/26/2013 DC to SNF and return for TAVR at a later date. - Aortic valve disorders - Atrial fibrillation (HCC) - Atrial fibrillation (HCC) 04/02/2005 Currently NSR Plan: - Supratherapeutic INR on presentation, holding Warfarin - holding heparin given GIB and risks>benefits - on carvedilol - ICD in place - Atrial fibrillation (HCC) 04/02/2005 H/o pAF on coumadin and amiodarone Warfarin was stopped last admission on 4/1 for severe anemia concerning for GI bleed Plan: - currently in NSR - c/w amiodarone - Monitor Hb - Back pain 03/21/2013 Right sided back, shoulder, and arm pain s/p fall 03/14 Now chronic pain. Cont PRN meds R shoulder blade tender to touch-> beside MS UTI contributing, started tx for UTI - Bursitis of left shoulder 05/15/2013 - Cellulitis of left leg 01/29/2010 [facility] ER 01/27/10 transferred to [facility] Dx: sepsis, afib, elevated INR - Chest pain, atypical 03/04/2014 Prior cath in 02/2013 had mild nonobstructive CAD. ACS possible but less likely. Already on ASA/plavix. Will cotninue. Hold on heparin gtt unless has further pain. First set of biomarkers were negative. Will continue to cycle tonight. IF positive will consider LHC today. If negative the patient is reluctant for any stress test so this will need to be considered. Other ddx such as PE or dissection less likely. No tachycardia or worsened SOB. CP resolved currently. Echo in the AM -cath 03-04 mild nonobstructive CAD; no indication for revascularization. - continued to have occ sharp chest pain ->LHC mild nonobstructive CAD best treated with medical management. Device check ruled OUT VT/VF. Echo showed Stephanie aortic valve well seated, pk/mn gradients . - Chronic anticoagulation Managed by Dr. See (cardiology; [facility]) - CKD (chronic kidney disease) stage 4, GFR 15-29 ml/min ([facility]) -On HD in 2009 for about 6-7 months, but has since improved to the point where she no longer requires it -stable Plan: - monitor renal function - avoid nephrotoxins - DM (diabetes mellitus) type II uncontrolled with renal manifestation Diabetes mellitus NIDDM - ESRD on hemodialysis ([facility]) Dr. Luo ([place]) - Failure to extubation 08/26/2013 Patient was extubated in OR after the procedure. She was noted to be agitated so she was put on CPAP with pressure of 5. She was re intubated around 1 pm for end tidal CO2 of 52. Currently on SIMV 14 FiO2 30% Peep 5 Plan Resolved Transferred to the floor 5-7 - GI bleed 08/26/2013 - Heart failure, systolic and diastolic, chronic ([facility]) 07/21/2013 NICM EF 45%, stage I diastolic dysfunction on most recent Echo 06/2013 On admission, clinically euvolemic Plan: - not currently on ACEi/ARB due to renal dysfunction - on carvedilol - continue spironolactone - hold Lasix 40mg PO BID until acute anemia addressed but will diurese with transfusions as needed - ICD in situ - Heart failure, systolic and diastolic, chronic ([facility]) 07/21/2013 NICM EF 45%, stage I diastolic dysfunction on most recent Echo 06/2013 On admission, clinically euvolemic Plan: - not currently on ACEi/ARB due to renal dysfunction - on carvedilol - continue spironolactone - hold Lasix 40mg PO BID until acute anemia addressed but will diurese with transfusions as needed - ICD in situ - Hives 07/29/2013 - Hyperlipidemia - Hypertension - Hypokalemia 03/20/2013 Monitor and replete prn to keep >4.0 - Hypomagnesemia 03/20/2013 Replete to keep >2.0 - Hypothyroidism 07/05/2013 - Leukocytosis 03/05/2014 No fever -WBC bumped up 12.55 -ordered u/a and culture-> UA suggests UTI urine cx pending, start Cipro. 03/07/2014 culture is pending, WBC decreased to 7.92 - Mechanical complication of other vascular device, implant, and graft 09/01/2010 - Morbid obesity ([facility]) - Morbid obesity ([facility]) Nutrition consult - Muscular deconditioning 09/14/2013 - Non-ischemic cardiomyopathy ([facility]) Cardiomyopathy--[place] - Paroxysmal ventricular tachycardia ([facility]) 04/02/2005 H/o VT/TdP s/p ICD. S/p defibrillator firing on 03/15/13 in the context of hypokalemia. Electrically quiescent on admission 06/2013 Plan: Monitor lytes and replete prn - Peripheral vascular disease (HCC) - Pressure ulcer, other site(707.09) 07/07/2013 bilateral ischium stage II POA. Xenoderm per nursing. This was present on admission. cont wound care. Also bilateral heel pressure ulcers stage 1 poa - Rectus sheath hematoma 03/29/2013 3.8 cm rectus hematoma noted on CT scan Complaining of some fleeting nausea, no pain Monitor blood counts - Renal failure 05/07/2010 Renal status stable. Off dialysis - S/P TAVR (transcatheter aortic valve replacement) 09/14/2013 - Severe aortic stenosis 08/26/2013 S/p #26 ES TF-TAVR. Exam without murmurs of AI or progressive . Will check echo in the AM but no reason to suggest valvular malfunction. Cont ASA/plavix Echo EF 45%, Bond-Stephanie prosthetic aortic valve (size #26). The peak gradient is 30 mmHg and the mean gradient is 17 mmHg. S/P transcathetaer AVR ( Bond Stephanie # 26) with mild anterior AI (seen best in initial parasternal views. - Staphylococcal infection of skin lower sheen both, - STASIS DERMATITIS 12/26/2007 Chronic changes of both legs, no recent change per patient, Uses emollient to good effect at home, will continue - Thrombocytopenia (HCC) 07/26/2013 Anemia with thrombocytopenia that is resolving. - Thrombophlebitis arm 03/22/2013 Assessment: DARREL NOBLE PIV site from OSH now warm, red, and firm with purulent drainage -BC from OSH report MSSA -03/25 IANDD to left antecubital fossa Plan: - Continue oxacillin IV 2 gm q4 hrs - Anticipate CoPAT- (ordered placed for david catheter) - ID following - BC x2 redrawn 03/30: ID rec to keep oxacillin going for 6 weeks, will write COPAT. David placed. Will go to [facility] on Monday. - Torsades de pointes (HCC) 03/20/2013 -ICD in place received appropriate shocks on 03/14 Cont amiodarone Pacer check to ensure CP wasn't arrhythmia such as aborted VT-> device check no VT/VF - Type II or unspecified type diabetes mellitus without mention of complication, not stated as uncontrolled 01/10/2005 - Check HbA1C - Lantus and prandial lispro with SSI coverage - BS poorly controlled HD #1. Increased prandial insulin dosing and Lantus. 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 This was not quiroz induced this was [employer]. Will discuss with ID - monitor for symptoms- > no symptoms, no fever and WBC WNL. Spoke with Dr. Shay from ID who said no signs/symptoms of UTI so would not treat with ATBs, they recommended remove quiroz-> but need urology to see pt first. Curbsided urology fellow who recommended removing quiroz, consult if difficulty difficulty voiding, then follow up with urology outpt at a later time. 07/24/[address] George due to upcoming valve procedure and + urine culture PAST SURGICAL HISTORY Procedure Laterality Date - APPENDECTOMY - AV FUSE, UPPR ARM, CEPHALIC 06-03-10 RIGHT UPPER ARM - LEFT HEART CATH,PERCUTANEOUS 05/27/1997 Cardiac cath, L heart AND R heart - MAMM DIAG UNI 2009 - REMOVAL SHARONA CVC W/O PUMP 09/01/10 Removal right IJ catheter - REMOVE CATARACT, INSERT LENS,EX - SIGMOIDOSCOPY FLEX DIAG 01/06/99 Sigmoidoscopy - TONSILLECTOMY HX - TOTAL ABDOM HYSTERECTOMY Hysterectomy, BERNARDA, BSO FAMILY HISTORY Problem Relation Age of Onset - Heart Father - Stroke Father - other (cardiomyopathy) Father - Stroke Maternal Grandmother - Heart Maternal Grandmother - Stroke Maternal Grandfather - Heart Maternal Grandfather - Stroke Paternal Grandmother - Heart Paternal Grandmother - Stroke Paternal Grandfather - Heart Paternal Grandfather - Heart Paternal Uncle Social History Substance Use Topics - Smoking status: Never Smoker - Smokeless tobacco: Never Used Comment: Parents non-smokers. - Alcohol use No ALLERGIES: ALLERGIES Allergen Reactions - Augmentin [Amoxicil* Rash - Sulfa (Sulfonamide * Hives - Vancomycin Anaphylaxis Per pharmacist. Patient tolerating PO Vancomycin. on 01/07 pt in [facility] and had ld syndrome rxn to [facility]. MEDICATIONS traMADol (ULTRAM) 50 mg tablet Take 50 mg by mouth every 6 hours as needed. metOLAzone (ZAROXOLYN) 5 mg tablet Take 5mg Monday, Monday and Monday nystatin (MYCOSTATIN) powder Apply 1 application to affected area three times daily. blood sugar diagnostic (ONETOUCH ULTRA TEST) test strip before meals and at bedtime. Use as instructed Insulin Aspart (NOVOLOG) 100 unit/mL crtg Inject subcutaneously 5 units with breakfast, 8 units with lunch, and 8 units with dinner dinner insulin glargine (LANTUS SOLOSTAR U-100 INSULIN) 100 unit/mL (3 mL) inpn Inject 42 Units subcutaneously once daily. levothyroxine (SYNTHROID) 75 mcg tablet Take 1 tablet by mouth every morning on an empty stomach For Thyroid warfarin (COUMADIN) 4 mg tablet 4mg Monday, 2 mg daily rest of the week. (Might change again since was decreased when INR up on antibiotic) Managed by Dr. See amiodarone (PACERONE) 200 mg tablet Take 1 tablet by mouth three times daily. Per hospital discharge 12/21/16 OXYGEN-AIR DELIVERY SYSTEMS (HIDEAWAY PULSEDOSE OXYGEN SYST MISC) Overnight pulse Ox check 327.24 Nocturnal hypoxemia, and Daytime as needed COMPOUNDED PRESCRIPTION Paper Tape. 2 . furosemide (LASIX) 40 mg tablet Take 1 tablet by mouth twice daily. spironolactone (ALDACTONE) 25 mg tablet Take 1 tablet by mouth once daily. docusate sodium (COLACE) 100 mg capsule Take 1 capsule by mouth twice daily as needed for Constipation. atorvastatin (LIPITOR) 40 mg tablet Take 40 mg by mouth once daily. carvedilol 3.125 mg tablet Take 1 tablet by mouth twice daily with meals. Lancets (ONE TOUCH DELICA) lancets Test 4 times daily 250.02, insulin dep acetaminophen (TYLENOL EXTRA STRENGTH) 500 mg ORAL tablet Take 500 mg by mouth every 4 hours as needed. ASPIRIN 81 MG ORAL TAB Take one (1) tablet daily . REVIEW OF SYSTEMS: GENERAL: Negative for: Weight loss or gain, Fever or Chills, Weakness and Sleep difficulties. Physical Examination: BP 118/60 Pulse 68 Resp 16 BP w/Orthostatic Vitals Date and Time Orthostatic BP Orthostatic Pulse BP Pulse BP Position BP Site BP Cuff Size 12/29/17 1449 -- -- 118/60 68 Sitting Left Arm Large Adult Peak Flow Date and Time PF Resp 12/29/17 1449 -- 16 General appearance: Well appearing, alert, in no acute distress, well-hydrated, well nourished. Skin: Skin color, texture, turgor normal, no suspicious rashes or lesions Lungs: Lungs clear to auscultation. No wheezing, rhonchi, rales Heart: RRR without murmur, gallop, or rubs. No ectopy Abdomen: Normal abdominal exam, Abdomen soft, non-tender. Bowel sounds normal. No masses, organomegaly Extremities: Pain on palpation right lateral hip, increased pain with abduction and abduction of hip Musculoskeletal: Spine range of motion normal. Muscular strength intact, No joint swelling, deformity, or tenderness Neuro: Gait normal. Sensation grossly intact. Reviewed chart, outside records, tests I personally interviewed, confirmed and edited the above information if obtained by others. TESTING: Glucose (mg/dL) Date Value 10/03/2017 229 Potassium (mmol/L) Date Value 10/03/2017 4.3 Sodium (mmol/L) Date Value 10/03/2017 141 Chloride (mmol/L) Date Value 10/03/2017 93 CO2 (mmol/L) Date Value 10/03/2017 28 Creatinine (mg/dL) Date Value 10/03/2017 1.77 BUN (mg/dL) Date Value 10/03/2017 86 Anion Gap (mmol/L) Date Value 10/03/2017 20 Calcium (mg/dL) Date Value 10/03/2017 9.3 Glucose (mg/dL) Date Value 10/03/2017 229 Potassium (mmol/L) Date Value 10/03/2017 4.3 Sodium (mmol/L) Date Value 10/03/2017 141 Chloride (mmol/L) Date Value 10/03/2017 93 CO2 (mmol/L) Date Value 10/03/2017 28 Creatinine (mg/dL) Date Value 10/03/2017 1.77 BUN (mg/dL) Date Value 10/03/2017 86 Anion Gap (mmol/L) Date Value 10/03/2017 20 Calcium (mg/dL) Date Value 10/03/2017 9.3 Protein, Total (g/dL) Date Value 10/03/2017 6.8 Albumin (g/dL) Date Value 10/03/2017 3.8 Bilirubin, Total (mg/dL) Date Value 10/03/2017 0.6 Alkaline Phosphatase (U/L) Date Value 10/03/2017 54 AST (U/L) Date Value 10/03/2017 17 ALT (U/L) Date Value 10/03/2017 12 Hemoglobin (g/dL) Date Value 08/17/2017 10.8 Hematocrit (%) Date Value 08/17/2017 34.3 WBC (k/uL) Date Value 08/17/2017 9.93 Cholesterol, Total (mg/dL) Date Value 08/17/2017 119 HDL Cholesterol (mg/dL) Date Value 08/17/2017 43 LDL Cholesterol (mg/dL) Date Value 08/17/2017 58 Triglyceride (mg/dL) Date Value 08/17/2017 92 Hemoglobin A1C Date Value Ref Range Status 10/03/2017 6.7 (H) 4.3 - 5.6 % Final 04/26/2016 6.9 (H) 4.3 - 5.6 % Final Comment: [place] [employer] guidelines indicate that patients with HgbA1c in the range 5.7-6.4% are at increased risk for development of diabetes, and intervention by lifestyle modification may be beneficial. HgbA1c greater or equal to 6.5% is considered diagnostic of diabetes. 09/03/2015 7.0 (H) 4.3 - 5.6 % Final Comment: [place] [employer] guidelines indicate that patients with HgbA1c in the range 5.7-6.4% are at increased risk for development of diabetes, and intervention by lifestyle modification may be beneficial. HgbA1c greater or equal to 6.5% is considered diagnostic of diabetes. 07/23/2015 6.2 (H) 4.3 - 5.6 % Final Comment: [place] [employer] guidelines indicate that patients with HgbA1c in the range 5.7-6.4% are at increased risk for development of diabetes, and intervention by lifestyle modification may be beneficial. HgbA1c greater or equal to 6.5% is considered diagnostic of diabetes. 04/08/2015 6.5 (H) 4.3 - 5.6 % Final Comment: [place] [employer] guidelines indicate that patients with HgbA1c in the range 5.7-6.4% are at increased risk for development of diabetes, and intervention by lifestyle modification may be beneficial. HgbA1c greater or equal to 6.5% is considered diagnostic of diabetes. Ejection Fraction - Result: 63 % Date: 08/26/2014 Time: 10:04:03 IMPRESSION: Ms. Ho is a 67 year old woman presents with acute on chronic right hip pain. ER follow up 12/28/2017 [facility]. After my examination and review of data, I make the following recommendations. PLAN AND RECOMMENDATIONS: 1. Right hip pain - ICD9: 719.45, ICD10: M25.551 (primary diagnosis) - CONSULT TO ORTHOPAEDICS - PREDNISONE 10 MG TABLET - OXYCODONE-ACETAMINOPHEN 5 MG-325 MG TABLET 2. Need for vaccination - ICD9: V05.9, ICD10: Z23 - INFLUENZA SEASONAL HIGH DOSE AGE 65+ 3. Congestive heart failure, NYHA class 3, unspecified congestive heart failure type (HCC) - ICD9: 428.0, ICD10: I50.9 4. CKD (chronic kidney disease) stage 4, GFR 15-29 ml/min (HCC) - ICD9: 585.4, ICD10: N18.4 5. Type 2 diabetes mellitus with other circulatory complication, with long-term current use of insulin ([facility]) - ICD9: 250.70, V58.67, ICD10: E11.59, Z79.4 6. Normocytic anemia - ICD9: 285.9, ICD10: D64.9 7. S/P TAVR (transcatheter aortic valve replacement) - ICD9: V43.3, ICD10: Z95.2 Options for treatment of pain limited by diabetes mellitus and kidney disease. Advised: Start taking prednisone once daily in the morning with food Stop if blood sugars running greater than 250 when checking Discontinue tramadol Start taking Percocet as needed for pain. Advised to not take tylenol when taking percocet Take medications with food Zofran for nausea as needed Make an appointment with orthopedic physician Advised increase fluid intake. Advised to go to ER if develops chest pain, shortness of breath, or severe worsening of symptoms. Discussed risks, benefits, alternatives, and potential side effects of medications. Ms. Ho expressed understanding and agreed with the plan. Ema Curry APRN.CNS CNOV Observed: 12/29/2017 Status: COMPLETED Source: [place] 3:00 PM [facility] REPOSITORY Office Visit (INTMWS) PAPAELIZABETH ([id number]) 1950 F Date Time Provider Department 12/29/17 3:00 PM EMA CURRY ([employer]) INTMWS During your visit today, we recorded the following information about you: Pulse Respiration Blood pressure 68/minute 16/minute 118/60 Ema Curry APRN.CNS 12/29/2017 3:38 PM Signed OUTPATIENT VISIT DATE December 29, 2017 OUTPATIENT VISIT TYPE ESTABLISHED PRIMARY CARE PHYSICIAN: Williams Parekh MD CHIEF COMPLAINT: Patient presents with: Hospital F/U History of Present Illness: Elizabeth Ho is a 67 year old female who was last seen 09/2017. She has been seen in the past for ACTIVE PROBLEM LIST Other and unspecified hyperlipidemia Non Morbid Obesity Due to Excess Calories Paroxysmal ventricular tachycardia Edema Venous (Peripheral) Insufficiency Ckd (Chronic Kidney Disease) Stage 4, Gfr 15-29 Ml/Min ([facility]) Varicose Veins of Lower Extremities With Ulcer ([facility]) Vitamin D Deficiency Secondary Hyperparathyroidism ([facility]) Cad (Coronary Artery Disease), [place] Coronary Artery Aortic Stenosis Mitral Stenosis On Home O2 Pvd (Peripheral Vascular Disease) ([facility]) Anemia Urinary Incontinence Implantable Cardioverter-Defibrillator (Icd) in Situ Dvt Prophylaxis Constipation Chf (Congestive Heart Failure), [place] Class Iii ([facility]) Gout, Arthritis Cardiac Pacemaker in Situ Hypothyroidism Due to Medication Gait Instability Paf (Paroxysmal Atrial Fibrillation) ([facility]) Diabetes Mellitus ([facility]) Presents today for hip pain. She was seen in [facility] yesterday for this pain. Pain was present for 2 days prior to arrival of increasing intensity. Dull ache in her right hip. It hurts to bend her leg and also with sitting. No pain radiating all the way down her leg however she is having pain in the right anterior thigh area and groin. Pain is primarily over the right greater trochanter area. No falls. No fever or chills. Exam unremarkable except for tenderness over the bilateral hip. No erythema. Normal pulses of lower extremity. Some pain with logroll. Screening labs were obtained. INR is therapeutic. Do not suspect a vascular problem. X-ray show arthritic changes of right hip and sacroiliac joint consistent with degenerative osteoarthritic changes. Normal bilateral if she'll tuberosity's. Normal visualized femoral head. Osteoarthritic spur formation of the acetabular rim. Moderate articular joint space narrowing of the hip. Degenerative changes of the lumbar spine. WBCs 10.5 hemoglobin 10.1 and hematocrit 33.7 platelets 175 glucose 209 BUN 70 creatinine 1.91 INR 2.3. Treated with morphine and tramadol in the ER with some relief. She was discharged home. Since yesterday she was discharged with tramadol and Tylenol for home use for pain. She feels pain is poorly controlled with these medications. No recent hospital or ED visits. No new medical problems or medications. Able to obtain medications. No problems with taking medications or note side effects. PAST MEDICAL HISTORY Diagnosis Date - Acute on chronic combined systolic and diastolic congestive heart failure (HCC) 03/20/2013 NICM by outside echo EF 35%, stage II diastolic dysfunction 03/19 RHC: CI by Gudelia 2.75, SVR 1129, PA 47/18, wedge 22 On admission 06/2013, clinically euvolaemic -not on ACEi/ARB currently with hx of renal dysfunction and severe -continue carvedilol -ICD in situ - Interrogate ICD to determine if decompensation is due to underlying arrhythmia (h/o VT/AF). Will need to call on Monday morning. - Decrease coreg to 3.125 mg BID. Attempted Hydralazine but patient did not tolerate due to hypotension on 07/06. - Slight bump in Cr 07/07 so decrease Lasix to 40 mg BID. Will continue Aldactone but will need to monitor CrCl. -Will need follow up labs- arranged for at SNF - Anemia 05/15/2013 Chronic anemia of unclear etiology. Received 2 units PRBC transfusion in April at OSH. Previous iron studies in our system suggestive of AoCD. Reports Colonoscopy/EGD ~ 2 years ago which did not show any major abnormalities. Presents with severe anemia in setting of supratherapeutic INR this admission. Denies BRBPR/melena but may have bleeding AVMs in the setting of severe . Also in setting of thrombocytopenia. Concern for DIC - fibrinogen negative -Received 6u PRBC since admission, stools melanotic Plan: - Monitor H/H, monitor coags/plts, check hemolysis labs as add-ons insufficient yesterday - NPO for possible EGD/Cscope today-> revealed polyps but bowel prep was inadequate, plan for capsule study 07/24/2013, NPO. ->capsule study neg for bleed. Pt needs elective colonoscopy as out pt to remove polyps. Recheck CBC next Monday. August 02. Fax results to DR George. - Aortic stenosis 03/20/2013 Progressive SOB on exertion, heart failure symptoms over the past 1 week preceding admission 07/05/2013. Known to have severe calcific tri-leaflet aortic valve stenosis. Denies chest pain, syncope, pre syncope. Echo: ALEX 0.81cm2, dimensionless index 0.23, pk/mn gradients 62/35 mmHg on 07/08/2013 Plan: - Planned for TF TAVR on 07/23/2013 - possibly delayed given likely GIB - Recently postponed due to UTI - will recheck UA and urine culture. Now postponed due to anemia. 07/26/2013 DC to SNF and return for TAVR at a later date. - Aortic valve disorders - Atrial fibrillation (HCC) - Atrial fibrillation ([facility]) 04/02/2005 Currently NSR Plan: - Supratherapeutic INR on presentation, holding Warfarin - holding heparin given GIB and risks>benefits - on carvedilol - ICD in place - Atrial fibrillation ([facility]) 04/02/2005 H/o pAF on coumadin and amiodarone Warfarin was stopped last admission on 07/23 for severe anemia concerning for GI bleed Plan: - currently in NSR - c/w amiodarone - Monitor Hb - Back pain 03/21/2013 Right sided back, shoulder, and arm pain s/p fall 03/14 Now chronic pain. Cont PRN meds R shoulder blade tender to touch-> beside MS UTI contributing, started tx for UTI - Bursitis of left shoulder 05/15/2013 - Cellulitis of left leg 01/29/2010 [facility] ER 01/27/10 transferred to [facility] Dx: sepsis, afib, elevated INR - Chest pain, atypical 03/04/2014 Prior cath in 02/2013 had mild nonobstructive CAD. ACS possible but less likely. Already on ASA/plavix. Will cotninue. Hold on heparin gtt unless has further pain. First set of biomarkers were negative. Will continue to cycle tonight. IF positive will consider LHC today. If negative the patient is reluctant for any stress test so this will need to be considered. Other ddx such as PE or dissection less likely. No tachycardia or worsened SOB. CP resolved currently. Echo in the AM -cath 03-04 mild nonobstructive CAD; no indication for revascularization. -continued to have occ sharp chest pain ->LHC mild nonobstructive CAD best treated with medical management. Device check ruled OUT VT/VF. Echo showed Stephanie aortic valve well seated, pk/mn gradients 30/17. - Chronic anticoagulation Managed by Dr. See (cardiology; [facility]) - CKD (chronic kidney disease) stage 4, GFR 15-29 ml/min ([facility]) -On HD in 2009 for about 6-7 months, but has since improved to the point where she no longer requires it -stable Plan: - monitor renal function - avoid nephrotoxins - DM (diabetes mellitus) type II uncontrolled with renal manifestation Diabetes mellitus NIDDM - ESRD on hemodialysis ([facility]) Dr. Luo ([place]) - Failure to extubation 08/26/2013 Patient was extubated in OR after the procedure. She was noted to be agitated so she was put on CPAP with pressure of 5. She was re intubated around 1 pm for end tidal CO2 of 52. Currently on SIMV 14 FiO2 30% Peep 5 Plan Resolved Transferred to the floor 5-7 - GI bleed 08/26/2013 - Heart failure, systolic and diastolic, chronic ([facility]) 07/21/2013 NICM EF 45%, stage I diastolic dysfunction on most recent Echo 06/2013 On admission, clinically euvolemic Plan: - not currently on ACEi/ARB due to renal dysfunction - on carvedilol - continue spironolactone - hold Lasix 40mg PO BID until acute anemia addressed but will diurese with transfusions as needed - ICD in situ - Heart failure, systolic and diastolic, chronic ([facility]) 07/21/2013 NICM EF 45%, stage I diastolic dysfunction on most recent Echo 06/2013 On admission, clinically euvolemic Plan: - not currently on ACEi/ARB due to renal dysfunction - on carvedilol - continue spironolactone - hold Lasix 40mg PO BID until acute anemia addressed but will diurese with transfusions as needed - ICD in situ - Hives 07/29/2013 - Hyperlipidemia - Hypertension - Hypokalemia 03/20/2013 Monitor and replete prn to keep >4.0 - Hypomagnesemia 03/20/2013 Replete to keep >2.0 - Hypothyroidism 07/05/2013 - Leukocytosis 03/05/2014 No fever -WBC bumped up 12.55 -ordered u/a and culture-> UA suggests UTI urine cx pending, start Cipro. 03/07/2014 culture is pending, WBC decreased to 7.92 - Mechanical complication of other vascular device, implant, and graft 09/01/2010 - Morbid obesity (HCC) - Morbid obesity ([facility]) Nutrition consult - Muscular deconditioning 09/14/2013 - Non-ischemic cardiomyopathy (HCC) Cardiomyopathy--[place] - Paroxysmal ventricular tachycardia (HCC) 04/02/2005 H/o VT/TdP s/p ICD. S/p defibrillator firing on 03/15/13 in the context of hypokalemia. Electrically quiescent on admission 06/2013 Plan: Monitor lytes and replete prn - Peripheral vascular disease (HCC) - Pressure ulcer, other site(707.09) 07/07/2013 bilateral ischium stage II POA. Xenoderm per nursing. This was present on admission. cont wound care. Also bilateral heel pressure ulcers stage 1 poa - Rectus sheath hematoma 03/29/2013 3.8 cm rectus hematoma noted on CT scan Complaining of some fleeting nausea, no pain Monitor blood counts - Renal failure 05/07/2010 Renal status stable. Off dialysis - S/P TAVR (transcatheter aortic valve replacement) 09/14/2013 - Severe aortic stenosis 08/26/2013 S/p #26 ES TF-TAVR. Exam without murmurs of AI or progressive . Will check echo in the AM but no reason to suggest valvular malfunction. Cont ASA/plavix Echo EF 45%, Bond-Stephanie prosthetic aortic valve (size #26). The peak gradient is 30 mmHg and the mean gradient is 17 mmHg. S/P transcathetaer AVR ( Bond Stephanie # 26) with mild anterior AI (seen best in initial parasternal views. - Staphylococcal infection of skin lower sheen both, - STASIS DERMATITIS 12/26/2007 Chronic changes of both legs, no recent change per patient, Uses emollient to good effect at home, will continue - Thrombocytopenia (HCC) 07/26/2013 Anemia with thrombocytopenia that is resolving. - Thrombophlebitis arm 03/22/2013 Assessment: DARREL NOBLE PIV site from OSH now warm, red, and firm with purulent drainage -BC from OSH report MSSA -03/25 IANDD to left antecubital fossa Plan: - Continue oxacillin IV 2 gm q4 hrs - Anticipate CoPAT- (ordered placed for david catheter) - ID following - BC x2 redrawn 03/30: ID rec to keep oxacillin going for 6 weeks, will write COPAT. David placed. Will go to [facility] on Monday. - Torsades de pointes (HCC) 03/20/2013 -ICD in place received appropriate shocks on 03/14 Cont amiodarone Pacer check to ensure CP wasn't arrhythmia such as aborted VT-> device check no VT/VF - Type II or unspecified type diabetes mellitus without mention of complication, not stated as uncontrolled 01/10/2005 - Check HbA1C - Lantus and prandial lispro with SSI coverage - BS poorly controlled HD #1. Increased prandial insulin dosing and Lantus. 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 This was not quiroz induced this was [employer]. Will discuss with ID - monitor for symptoms- > no symptoms, no fever and WBC WNL. Spoke with Dr. Shay from ID who said no signs/symptoms of UTI so would not treat with ATBs, they recommended remove quiroz-> but need urology to see pt first. Curbsided urology fellow who recommended removing quiroz, consult if difficulty difficulty voiding, then follow up with urology outpt at a later time. 07/24/[address] George due to upcoming valve procedure and + urine culture PAST SURGICAL HISTORY Procedure Laterality Date - APPENDECTOMY - AV FUSE, UPPR ARM, CEPHALIC 06-03-10 RIGHT UPPER ARM - LEFT HEART CATH,PERCUTANEOUS 05/27/1997 Cardiac cath, L heart AND R heart - MAMM DIAG UNI 2009 - REMOVAL SHARONA CVC W/O PUMP 09/01/10 Removal right IJ catheter - REMOVE CATARACT, INSERT LENS,EX - SIGMOIDOSCOPY FLEX DIAG 01/06/99 Sigmoidoscopy - TONSILLECTOMY HX - TOTAL ABDOM HYSTERECTOMY Hysterectomy, BERNARDA, BSO FAMILY HISTORY Problem Relation Age of Onset - Heart Father - Stroke Father - other (cardiomyopathy) Father - Stroke Maternal Grandmother - Heart Maternal Grandmother - Stroke Maternal Grandfather - Heart Maternal Grandfather - Stroke Paternal Grandmother - Heart Paternal Grandmother - Stroke Paternal Grandfather - Heart Paternal Grandfather - Heart Paternal Uncle Social History Substance Use Topics - Smoking status: Never Smoker - Smokeless tobacco: Never Used Comment: Parents non-smokers. - Alcohol use No ALLERGIES: ALLERGIES Allergen Reactions - Augmentin [Amoxicil* Rash - Sulfa (Sulfonamide * Hives - Vancomycin Anaphylaxis Per pharmacist. Patient tolerating PO Vancomycin. on 01/07 pt in [facility] and had ld syndrome rxn to [facility]. MEDICATIONS traMADol (ULTRAM) 50 mg tablet Take 50 mg by mouth every 6 hours as needed. metOLAzone (ZAROXOLYN) 5 mg tablet Take 5mg Monday, Monday and Monday nystatin (MYCOSTATIN) powder Apply 1 application to affected area three times daily. blood sugar diagnostic (CrowdfunderTOUCH ULTRA TEST) test strip before meals and at bedtime. Use as instructed Insulin Aspart (NOVOLOG) 100 unit/mL crtg Inject subcutaneously 5 units with breakfast, 8 units with lunch, and 8 units with dinner dinner insulin glargine (LANTUS SOLOSTAR U-100 INSULIN) 100 unit/mL (3 mL) inpn Inject 42 Units subcutaneously once daily. levothyroxine (SYNTHROID) 75 mcg tablet Take 1 tablet by mouth every morning on an empty stomach For Thyroid warfarin (COUMADIN) 4 mg tablet 4mg Monday, 2 mg daily rest of the week. (Might change again since was decreased when INR up on antibiotic) Managed by Dr. See amiodarone (PACERONE) 200 mg tablet Take 1 tablet by mouth three times daily. Per hospital discharge 12/21/16 OXYGEN-AIR DELIVERY SYSTEMS (HIDEAWAY PULSEDOSE OXYGEN SYST MISC) Overnight pulse Ox check 327.24 Nocturnal hypoxemia, and Daytime as needed COMPOUNDED PRESCRIPTION Paper Tape. 2 . furosemide (LASIX) 40 mg tablet Take 1 tablet by mouth twice daily. spironolactone (ALDACTONE) 25 mg tablet Take 1 tablet by mouth once daily. docusate sodium (COLACE) 100 mg capsule Take 1 capsule by mouth twice daily as needed for Constipation. atorvastatin (LIPITOR) 40 mg tablet Take 40 mg by mouth once daily. carvedilol 3.125 mg tablet Take 1 tablet by mouth twice daily with meals. Lancets (ONE TOUCH DELICA) lancets Test 4 times daily 250.02, insulin dep acetaminophen (TYLENOL EXTRA STRENGTH) 500 mg ORAL tablet Take 500 mg by mouth every 4 hours as needed. ASPIRIN 81 MG ORAL TAB Take one (1) tablet daily . REVIEW OF SYSTEMS: GENERAL: Negative for: Weight loss or gain, Fever or Chills, Weakness and Sleep difficulties. Physical Examination: BP 118/60 Pulse 68 Resp 16 BP w/Orthostatic Vitals Date and Time Orthostatic BP Orthostatic Pulse BP Pulse BP Position BP Site BP Cuff Size 12/29/17 1449 -- -- 118/60 68 Sitting Left Arm Large Adult Peak Flow Date and Time PF Resp 12/29/17 1449 -- 16 General appearance: Well appearing, alert, in no acute distress, well-hydrated, well nourished. Skin: Skin color, texture, turgor normal, no suspicious rashes or lesions Lungs: Lungs clear to auscultation. No wheezing, rhonchi, rales Heart: RRR without murmur, gallop, or rubs. No ectopy Abdomen: Normal abdominal exam, Abdomen soft, non-tender. Bowel sounds normal. No masses, organomegaly Extremities: Pain on palpation right lateral hip, increased pain with abduction and abduction of hip Musculoskeletal: Spine range of motion normal. Muscular strength intact, No joint swelling, deformity, or tenderness Neuro: Gait normal. Sensation grossly intact. Reviewed chart, outside records, tests I personally interviewed, confirmed and edited the above information if obtained by others. TESTING: Glucose (mg/dL) Date Value 10/03/2017 229 Potassium (mmol/L) Date Value 10/03/2017 4.3 Sodium (mmol/L) Date Value 10/03/2017 141 Chloride (mmol/L) Date Value 10/03/2017 93 CO2 (mmol/L) Date Value 10/03/2017 28 Creatinine (mg/dL) Date Value 10/03/2017 1.77 BUN (mg/dL) Date Value 10/03/2017 86 Anion Gap (mmol/L) Date Value 10/03/2017 20 Calcium (mg/dL) Date Value 10/03/2017 9.3 Glucose (mg/dL) Date Value 10/03/2017 229 Potassium (mmol/L) Date Value 10/03/2017 4.3 Sodium (mmol/L) Date Value 10/03/2017 141 Chloride (mmol/L) Date Value 10/03/2017 93 CO2 (mmol/L) Date Value 10/03/2017 28 Creatinine (mg/dL) Date Value 10/03/2017 1.77 BUN (mg/dL) Date Value 10/03/2017 86 Anion Gap (mmol/L) Date Value 10/03/2017 20 Calcium (mg/dL) Date Value 10/03/2017 9.3 Protein, Total (g/dL) Date Value 10/03/2017 6.8 Albumin (g/dL) Date Value 10/03/2017 3.8 Bilirubin, Total (mg/dL) Date Value 10/03/2017 0.6 Alkaline Phosphatase (U/L) Date Value 10/03/2017 54 AST (U/L) Date Value 10/03/2017 17 ALT (U/L) Date Value 10/03/2017 12 Hemoglobin (g/dL) Date Value 08/17/2017 10.8 Hematocrit (%) Date Value 08/17/2017 34.3 WBC (k/uL) Date Value 08/17/2017 9.93 Cholesterol, Total (mg/dL) Date Value 08/17/2017 119 HDL Cholesterol (mg/dL) Date Value 08/17/2017 43 LDL Cholesterol (mg/dL) Date Value 08/17/2017 58 Triglyceride (mg/dL) Date Value 08/17/2017 92 Hemoglobin A1C Date Value Ref Range Status 10/03/2017 6.7 (H) 4.3 - 5.6 % Final 04/26/2016 6.9 (H) 4.3 - 5.6 % Final Comment: [place] [employer] guidelines indicate that patients with HgbA1c in the range 5.7-6.4% are at increased risk for development of diabetes, and intervention by lifestyle modification may be beneficial. HgbA1c greater or equal to 6.5% is considered diagnostic of diabetes. 09/03/2015 7.0 (H) 4.3 - 5.6 % Final Comment: [place] [employer] guidelines indicate that patients with HgbA1c in the range 5.7-6.4% are at increased risk for development of diabetes, and intervention by lifestyle modification may be beneficial. HgbA1c greater or equal to 6.5% is considered diagnostic of diabetes. 07/23/2015 6.2 (H) 4.3 - 5.6 % Final Comment: [place] [employer] guidelines indicate that patients with HgbA1c in the range 5.7-6.4% are at increased risk for development of diabetes, and intervention by lifestyle modification may be beneficial. HgbA1c greater or equal to 6.5% is considered diagnostic of diabetes. 04/08/2015 6.5 (H) 4.3 - 5.6 % Final Comment: [place] [employer] guidelines indicate that patients with HgbA1c in the range 5.7-6.4% are at increased risk for development of diabetes, and intervention by lifestyle modification may be beneficial. HgbA1c greater or equal to 6.5% is considered diagnostic of diabetes. Ejection Fraction - Result: 63 % Date: 08/26/2014 Time: 10:04:03 IMPRESSION: Ms. Ho is a 67 year old woman presents with acute on chronic right hip pain. ER follow up 12/28/2017 [facility]. After my examination and review of data, I make the following recommendations. PLAN AND RECOMMENDATIONS: 1. Right hip pain - ICD9: 719.45, ICD10: M25.551 (primary diagnosis) - CONSULT TO ORTHOPAEDICS - PREDNISONE 10 MG TABLET - OXYCODONE-ACETAMINOPHEN 5 MG-325 MG TABLET 2. Need for vaccination - ICD9: V05.9, ICD10: Z23 - INFLUENZA SEASONAL HIGH DOSE AGE 65+ 3. Congestive heart failure, NYHA class 3, unspecified congestive heart failure type ([facility]) - ICD9: 428.0, ICD10: I50.9 4. CKD (chronic kidney disease) stage 4, GFR 15-29 ml/min ([facility]) - ICD9: 585.4, ICD10: N18.4 5. Type 2 diabetes mellitus with other circulatory complication, with long-term current use of insulin ([facility]) - ICD9: 250.70, V58.67, ICD10: E11.59, Z79.4 6. Normocytic anemia - ICD9: 285.9, ICD10: D64.9 7. S/P TAVR (transcatheter aortic valve replacement) - ICD9: V43.3, ICD10: Z95.2 Options for treatment of pain limited by diabetes mellitus and kidney disease. Advised: Start taking prednisone once daily in the morning with food Stop if blood sugars running greater than 250 when checking Discontinue tramadol Start taking Percocet as needed for pain. Advised to not take tylenol when taking percocet Take medications with food Zofran for nausea as needed Make an appointment with orthopedic physician Advised increase fluid intake. Advised to go to ER if develops chest pain, shortness of breath, or severe worsening of symptoms. Discussed risks, benefits, alternatives, and potential side effects of medications. Ms. Ho expressed understanding and agreed with the plan. Ema Curry APRN.[employer] Ema Curry APRN.RICHI 12/29/2017 3:20 PM Signed Start taking prednisone once daily in the morning with food Stop if blood sugars running greater than 250 when checking Discontinue tramadol Start taking Percocet as needed for pain Take medications with food Zofran for nausea as needed Make an appointment with orthopedic physician Maria Esther Campbell LPN 12/29/2017 3:38 PM Signed 67 year old female here for INACTIVATED INFLUENZA VACCINE. [id number] Season Patient is identified by name and date of : Yes [] CONTRAINDICATIONS color enhanced section Age less than 6 months? No Allergy to eggs, chicken, chicken feathers, or chicken dander? No Allergy to thimerosal (a preservative) or formaldehyde? No History of severe reaction to any vaccine component or a previous dose of influenza vaccination? No History of Guillain-[place] Syndrome within 6 weeks after a previous influenza vaccine? No Current moderate or severe illness? No Current temperature greater or equal to 100.4F? No History of Bone Marrow Transplant in past 6 months or solid organ transplant in the past 3 months ? No [] VERIFICATION color enhanced section Was the answer Yes for any of the above contraindications? No contraindications present. Acceptable to proceed with vaccine. Patient/guardian agrees the above answers are true to the best of their knowledge? Yes Flu vaccine information sheet given? Yes See immunization activity in [facility] for details of immunizations adminstered today. Patient age: [age] year old For The Flu Season 6-35 months old: Fluzone 0.25 ml - IM (Preservative Free) 3 years of age: Fluzone 0.5 ml - IM (Preservative Free) 3 years and older: Fluzone 0.5 ml- IM-(with Preservatives) 65+ years old: Fluzone High-Dose 0.5 ml - IM (Preservative Free) REMEMBER: If patient is less than 9 years of age and this is the first vaccine of Influenza to be received in any flu season, they should receive a second dose in one months time. 67 year old female here for INACTIVATED INFLUENZA VACCINE. Season Patient is identified by name and date of : Yes [] CONTRAINDICATIONS color enhanced section Age less than 6 months? No Allergy to eggs, chicken, chicken feathers, or chicken dander? No Allergy to thimerosal (a preservative) or formaldehyde? No History of severe reaction to any vaccine component or a previous dose of influenza vaccination? No History of Guillain-Peters[place] Syndrome within 6 weeks after a previous influenza vaccine? No Current moderate or severe illness? No Current temperature greater or equal to 100.4F? No History of Bone Marrow Transplant in past 6 months or solid organ transplant in the past 3 months ? No [] VERIFICATION color enhanced section Was the answer Yes for any of the above contraindications? No contraindications present. Acceptable to proceed with vaccine. Patient/guardian agrees the above answers are true to the best of their knowledge? Yes Flu vaccine information sheet given? Yes See immunization activity in [facility] for details of immunizations adminstered today. Patient age: [age] year old For The 6272-1378 Flu Season 6-35 months old: Fluzone 0.25 ml - IM (Preservative Free) 3 years of age: Fluzone 0.5 ml - IM (Preservative Free) 3 years and older: Fluzone 0.5 ml- IM-(with Preservatives) 65+ years old: Fluzone High-Dose 0.5 ml - IM (Preservative Free) REMEMBER: If patient is less than 9 years of age and this is the first vaccine of Influenza to be received in any flu season, they should receive a second dose in one months time. Referring Provider: SELF [[id number]] Allergies As of Date: 12/29/2017 Noted Allergy Reaction AUGMENTIN (AMOXICILLIN-POT CLAVUL*2013 2 - Rash SULFA (SULFONAMIDE ANTIBIOTICS) 01/10/2005 4 - Hives VANCOMYCIN 08/26/2013 10 - Anaphylaxis Comments: Per pharmacist. Patient tolerating PO Vancomycin. on 01/07 pt in [facility] and had ld syndrome rxn to [facility]. Date Reviewed: 12/29/2017 Reviewed by: Maria Esther Campbell LPN - Fully Assessed Reason for Visit: Hospital F/U [57] Imm/Inj [58] Cmt: Flu Vaccine Reason For Visit History Recorded Primary Visit Diagnosis:Right hip pain [M25.551] Other Visit Diagnoses:Need for vaccination [Z23] Congestive heart failure, NYHA class 3, unspecified congestive heart failure type ([facility]) [I50.9] CKD (chronic kidney disease) stage 4, GFR 15-29 ml/min ([facility]) [N18.4] Type 2 diabetes mellitus with other circulatory complication, with long-term current use of insulin ([facility]) [E11.59, Z79.4] Normocytic anemia [D64.9] S/P TAVR (transcatheter aortic valve replacement) [Z95.2] Order(s):CONSULT TO ORTHOPAEDICS [9057] Order #: [id number]: 1 predniSONE (DELTASONE) 10 mg tabletTake 1 tablet by mouth once daily for 4 days. Take with food in morning.Disp: 4 tabletRfl: 0 oxyCODONE-acetaminophen (PERCOCET) 5-325 mg tabletTake 1 tablet by mouth every 8 hours as needed for Pain for up to 7 days.Disp: 24 tabletRfl: 0 ondansetron orally disintegrating (ZOFRAN ODT) 4 mg disintegrating tabletTake 1 tablet by mouth every 8 hours as needed for Nausea/Vomiting.Disp: 20 tabletRfl: 0 INFLUENZA SEASONAL HIGH DOSE AGE 65+ [[id number]] Order #: [id number] Prescriptions as of 12/29/2017 Sig: TRAMADOL 50 MG TABLET Take 50 mg by mouth every 6 h* METOLAZONE 5 MG TABLET Take 5mg Monday, Monday an* NYSTATIN 100,000 UNIT/GRAM TO* Apply 1 application to affect* BLOOD SUGAR DIAGNOSTIC STRIPS before meals and at bedtime. * INSULIN ASPART U-100 100 UNI* Inject subcutaneously 5 units* INSULIN GLARGINE (U-100) 100 * Inject 42 Units subcutaneousl* LEVOTHYROXINE 75 MCG TABLET Take 1 tablet by mouth every * WARFARIN 4 MG TABLET 4mg Monday, 2 mg daily rest o* AMIODARONE 200 MG TABLET Take 1 tablet by mouth three * HIDEAWAY PULSEDOSE OXYGEN SYS* Overnight pulse Ox check 327.* COMPOUNDED PRESCRIPTION Paper Tape. 2 . FUROSEMIDE 40 MG TABLET Take 1 tablet by mouth twice * SPIRONOLACTONE 25 MG TABLET Take 1 tablet by mouth once d* DOCUSATE SODIUM 100 MG CAPSULE Take 1 capsule by mouth twice* ATORVASTATIN 40 MG TABLET Take 40 mg by mouth once fernando* CARVEDILOL 3.125 MG TABLET Take 1 tablet by mouth twice * * LANCETS Test 4 times daily 250.02, in* * ACETAMINOPHEN 500 MG TABLET Take 500 mg by mouth every 4 * * ASPIRIN 81 MG TABLET Take one (1) tablet daily . PREDNISONE 10 MG TABLET Take 1 tablet by mouth once d* OXYCODONE-ACETAMINOPHEN 5 MG-* Take 1 tablet by mouth every * ONDANSETRON 4 MG DISINTEGRATI* Take 1 tablet by mouth every * Problem List As Of Date 12/29/2017 Noted Resolved Other and unspecified hyperlipidemia [E78.5] Priority: J More... Non morbid obesity due to excess calories [E66.* Priority: K More... More... More... Paroxysmal ventricular tachycardia [I47.2] INVALID FOR* Priority: D More... EDEMA [R60.9] INVALID FOR* Venous (peripheral) insufficiency [I87.2] INVALID FOR* More... Other malaise and fatigue [R53.81, R53.83] INVALID FOR*11/29/2010 Cellulitis of left leg [L03.116] INVALID FOR*02/16/2017 More... More... Dialysis patient [Z99.2] INVALID FOR*04/18/2013 More... CKD (chronic kidney disease) stage 4, GFR 15-29* Priority: E More... Varicose veins of lower extremities with ulcer *INVALID FOR* Vitamin D deficiency [E55.9] INVALID FOR* More... Secondary hyperparathyroidism [N25.81] INVALID FOR* CAD (coronary artery disease), [place] coronary *INVALID FOR* Priority: F More... More... Torsades de pointes (HCC) [I47.2] INVALID FOR*08/21/2017 Priority: B More... Aortic stenosis [I35.0] INVALID FOR* Priority: B More... Mitral stenosis [I05.0] INVALID FOR* Priority: D More... More... More... More... More... On home O2 [Z99.81] INVALID FOR* Priority: K More... Elevated bilirubin [R17] INVALID FOR*03/23/2013 More... More... More... PVD (peripheral vascular disease) [I73.9] INVALID FOR* Priority: K More... More... More... More... Anemia [D64.9] INVALID FOR* Priority: B More... Bursitis of left shoulder [M75.52] INVALID FOR*02/16/2017 Urinary incontinence [R32] INVALID FOR* Priority: D More... More... Pressure ulcer, other site(707.09) [L89.899] INVALID FOR*02/16/2017 Priority: L More... More... More... Implantable cardioverter-defibrillator (ICD) in*INVALID FOR* More... More... DVT prophylaxis [KSO8482] INVALID FOR* More... Thrombocytopenia (HCC) [D69.6] INVALID FOR*08/21/2017 More... More... Constipation [K59.00] INVALID FOR* Anticoagulated on Coumadin [Z51.81, Z79.01] INVALID FOR*10/11/2013 Severe aortic stenosis [I35.0] INVALID FOR*01/19/2017 Priority: A More... CHF (congestive heart failure), NYHA class III *INVALID FOR* Priority: B More... More... C. difficile diarrhea [A04.72] INVALID FOR*10/11/2013 More... Gout, arthritis [M10.9] INVALID FOR* More... Leukocytosis [D72.829] INVALID FOR*02/16/2017 Priority: B More... 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 Gait instability [R26.81] INVALID FOR* More... PAF (paroxysmal atrial fibrillation) (HCC) [I48*INVALID FOR* Diabetes mellitus (HCC) [E11.9] INVALID FOR* Other instructions from your clinician: Start taking prednisone once daily in the morning with food Stop if blood sugars running greater than 250 when checking Discontinue tramadol Start taking Percocet as needed for pain Take medications with food Zofran for nausea as needed Make an appointment with orthopedic physician Prescriptions ordered this encounter Disp Refills Start End PREDNISONE 10 MG TABLET 4 ta* 0 12/29/2017 01/02/2018 Route: ORAL Sig: Take 1 tablet by mouth once daily for 4 days. Take with food in morning. OXYCODONE-ACETAMINOPHEN 5 MG-325 MG * 24 t* 0 12/29/2017 01/05/2018 Class: Print RX Route: ORAL Sig: Take 1 tablet by mouth every 8 hours as needed for Pain for up to 7 days. ONDANSETRON 4 MG DISINTEGRATING TABL* 20 t* 0 12/29/2017 Route: ORAL Sig: Take 1 tablet by mouth every 8 hours as needed for Nausea/Vomiting. Encounter Status:Closed by EMA LORENZANA on 12/29/17 EMERGENCY DEPARTMENT Observed: 12/28/2017 Status: F Source: [place] SUMMARY 3:56 PM [facility] REPOSITORY [facility] Medical Records Department [address] [place] [address] Emergency Department Summary 12/28/17 0932 MR#: [id number] Acct: [id number] Name: ELIZABETH HO Rep #: [id number] : 1950 67 From: Matt Sweet MD PCP: Williams Parekh MD Status: DEP ER - ER Visit Summary Date of Service: 12/28/17 Chief Complaint: Right hip pain History of Present Illness: The patient is a 67 F with history of arthritis presents to the emergency department with increasing right hip pain. Patient states over the past 2 days, she has had a dull ache in her right hip that is worsened. She states it hurts to bend the leg. She states when she tries to sit to use the bathroom, she gets excruciating pain. The pain does not radiate all the way down her leg. It is mostly over the right greater trochanter. She has not fallen. She denies any fevers or chills. She states that she has chronic dyspnea which is unchanged. The patient does have a history of transaortic valve replacement and is on Coumadin. She is given compliant with this therapy. She denies back pain. She denies any urinary symptoms. Physical Examination: Vital signs reviewed General: Well-nourished, well-developed Head: Normocephalic, atraumatic Eyes: Pupils equal and reactive, extraocular muscles intact Neck, supple, no lymphadenopathy Heart: Regular rate and rhythm Respiratory: No distress, clear bilaterally Abdomen: Soft, nontender, nondistended, no peritoneal signs Back: Nontender Extremities: Tender over the right lateral hip. No erythema. Tinea within the folds. Normal popliteal pulses, no edema, no cords Skin: Normal color no rash Neuro: Alert and oriented, no focal or lateralizing deficits Test Results: [] Emergency Department Course and Treatment: The patient has normal pulses of her lower extremity. She does have some pain with logroll. Screening labs are obtained. Her INR is therapeutic. He do not suspect vascular crisis. X-rays do show chronic change. The patient was given morphine. She was able to ambulate the bathroom without pain. Discussion with the patient, she has had significant pain improvement with tramadol. I will write her a very short course and told her to use this sparingly. She will continue scheduled Tylenol and only use tramadol as needed. Her sister at the bedside is comfortable with this plan of care. She will be discharged home. Treatment Plan: [] Disposition: Discharge Impression: 1. Exacerbation of chronic right hip pain This note was generated with SnapMD dictation software. It may contain incorrect words, spelling, and punctuation that were not noted in review of the chart prior to signing ED Disposition - Plan for ED Patient: Disposition: Home or Assisted Living Chief Complaint: Lower Extremity Injury Instructions: ED Sprain Hip Prescriptions: traMADol [Ultram] 50 mg PO Q4H PRN PRN 3 Days #12 tablet PRN Reason: Pain traMADol [Ultram] 50 mg PO Q4H PRN PRN 3 Days #12 tab PRN Reason: Pain Referrals: Williams Parekh MD [Primary Care Provider] - What to do if you have Problems For any increased pain, shortness of breath, bleeding, nausea or vomiting, chest pain, or any unexpected problems, contact your Primary Care Provider. Call [facility] ([phone]) or report to the closest Emergency Room. Call 911 if necessary. 12/28/17 9906 <Electronically signed by Matt Sweet MD> Date Matt Sweet MD Cosigner Signature (If Indicated): Date CC: Williams Parekh MD BASIC METABOLIC Collected: 12/28/2017 Status: F Source: NAM PROFILE ([facility]) 9:35 AM [facility] REPOSITORY TYPE CODE TESTS RESULT OUT OF RANGE REFERENCE UNITS LAB L501.0100 74-106 mg/dL High GLU 209 Result Comment: Glucose result greater than or equal to 200 mg/dL suggests DIABETES MELLITUS per A.D.A. criteria. Please note revised GLUCOSE reference range effective 2017. LAB L501.1000 7-18 mg/dL High BUN 70 LAB L501.1100 0.55-1.02 mg/dL High CREAT,SERUM 1.91 Result Comment: The validity of the calculated GFR AND GFRAA in patients over 70 years has not been determined. Clinical correlation is essential. LAB L501.1110 >60 mL/min Low EST GFR 28 Result Comment: Non- GFR Calc LAB L501.1115 >60 mL/min Low EST GFR - AA 34 Result Comment: GFR Calc LAB L501.1255 ml/min Normal Estimated CRCL 26.02 LAB L501.1300 10-20 RATIO High BUN/CRE 36.6 LAB L501.2200 8.5-10 mg/dL Normal .1 CA 9.1 LAB L501.5300 136-14 mmol/L Normal 5 NA 140 LAB L501.5600 3.5-5. mmol/L Normal 1 K 4.0 LAB L501.5900 98-107 mmol/L Normal CL 99 LAB L501.6100 21.0-3 mmol/L High 2.0 CO2 33.0 LAB L501.6200 5-15 Normal GAP 8 Performed By: #### L500.2500 #### [facility] [address] [place], [place], [id number] CBC W/DIFF, AUTOMATED Collected: 12/28/2017 Status: F Source: NAM 9:35 AM [facility] REPOSITORY TYPE CODE TESTS RESULT OUT OF RANGE REFERENCE UNITS LAB L100.1000 4.4-11.0 K/mm3 Normal WBC 10.5 LAB L100.1200 4.2-5.4 M/mm3 Low RBC 3.50 LAB L100.1300 12.0-15.0 g/dl Low HGB 10.1 LAB L100.1400 37-47 % Low HCT 33.7 LAB L100.1500 81-99 fL Normal MCV 96.3 LAB L100.1600 27.0-32.0 pg Normal MCH 28.9 LAB L100.1700 32-36 g/gl Low MCHC 30.0 LAB L100.1810 11.6-14.6 % High RDW CV 15.0 LAB L100.1820 35.1-43.9 fl High RDW SD 52.0 LAB L100.1900 150-450 K/mm3 Normal PLT 175 LAB L100.2000 6.2-12.0 fl Normal MPV 10.6 LAB L100.2100 47-70 % High NEUT% 84.4 LAB L100.2200 19-41 % Low LY% 12.2 LAB L100.2300 0-10 % Normal MONO% 1.1 LAB L100.2400 0-5 % Normal EO% 1.1 LAB L100.2500 0-1 % Normal BASO% 0.2 LAB L100.2550 0.0-0.9 % High IM GRAN % 1.000 Result Comment: IG% - Immature Granulocytes (promyelocytes, myelocytes and metamyelocytes) > 1% indicates that a LEFT SHIFT is Present. LAB L100.2620 2.0-7.7 X10 3/uL High Absolute Neut 8.8 LAB L100.2720 0.83-4.51 X10 3/ul Normal Absolute Lymph 1.28 Performed By: #### L100.0100 #### [facility] [address] [place], [place], [address] PROTHROMBIN TIME W/INR Collected: 12/28/2017 Status: F Source: [place] 9:35 AM [facility] REPOSITORY TYPE CODE TESTS RESULT OUT OF RANGE REFERENCE UNITS LAB L300.4150 11.7-14.9 SECONDS High PROTIME 25.4 LAB L300.4200 Normal INR 2.3 Performed By: #### L300.3900 #### [facility] [address] [place], [address] HIP, UNI W/ PELVIS Observed: 12/28/2017 Status: F Source: NAM 2-3 VIEWS 9:30 AM [facility] REPOSITORY [facility] Imaging Services [address] [place] [address] HIP, UNI W/ Pelvis 2-3 Views MR#: [id number] Acct: [id number] Name: ELIZABETH HO Rep #: [id number] : 1950 F 67 From: Asif Teresa MD PCP: Williams Parekh MD Status: REG ER Study: HIP, UNI W/ Pelvis 2-3 Views Date of Exam: 12/28/17 Exam# [id number] Ordering Dr: Matt Sweet MD STUDY: X-RAY - PELVIS AND RIGHT HIP REASON FOR EXAM: Female, 67 years old. One-day history of right hip pain. No known injury. TECHNIQUE: Radiological exam, hip, unilateral, with pelvis when performed; 2 or 3 views. COMPARISON: None. FINDINGS: There is a non-specific bowel gas pattern. There are atherosclerotic vascular calcifications of the pelvic arteries. There is narrowing with cortical sclerosis and osteophyte formation of the sacroiliac joint consistent with degenerative osteoarthritic changes. Normal bilateral superior and inferior pubic rami. There is narrowing with sclerosis of the pubic symphysis. Normal bilateral ischial tuberosities. Normal visualized femoral head. There is osteoarthritic spur formation of the acetabular rim. There is moderate articular joint space narrowing of the hip. Degenerative changes of the lumbar spine. RAD/HIP, UNI W/ Pelvis 2-3 Views IMPRESSION: Degenerative changes of the hip joints as well as the lumbar spine Electronically Signed: Asif Teresa MD at 10:35 EDT Tel [phone], Service support , CC: Williams Parekh MD; Matt Sweet MD Porcelain Turner: Signed PACEMAKER CHECK Observed: 12/26/2017 Status: F Source: NAM 5:30 PM [facility] REPOSITORY [facility] [address] [place] [address] Pacemaker Check Date of Service: 12/26/171641 MR#: [id number] Acct: [id number] Name: ELIZABETH HO Rep #: [id number] : 1950 From: Lela Bullock Age/Sex: 67/F [place] [facility] [place]: Signed Billing Codes ICD Device Billing: ICD Dev Prog Eval, Dual 12/26/171643 <Electronically signed by Lela Bullock > Date Lela Bullock 12/26/171729<Electronically signed by Michael See MD> Cosigner Signature: Date (if applicable) Michael See MD CC: PROTHROMBIN TIME W/INR Collected: 12/22/2017 Status: F Source: NAM 10:06 AM [facility] REPOSITORY TYPE CODE TESTS RESULT OUT OF RANGE REFERENCE UNITS LAB L300.4150 11.7-14.9 SECONDS High PROTIME 28.7 LAB L300.4200 Normal INR 2.7 Performed By: #### L300.3900 #### [facility] [address] [place], [address] BASIC METABOLIC Collected: 12/22/2017 Status: F Source: [place]AM PROFILE ([place]) 10:06 AM [facility] REPOSITORY TYPE CODE TESTS RESULT OUT OF RANGE REFERENCE UNITS LAB L501.0100 74-106 mg/dL High GLU 189 Result Comment: Fasting Glucose result greater than or equal to 126 mg/dL suggests DIABETES MELLITUS per A.D.A. criteria. Please note revised GLUCOSE reference range effective 2017. LAB L501.1000 7-18 mg/dL High BUN 76 LAB L501.1100 0.55-1.02 mg/dL High CREAT,SERUM 1.87 Result Comment: The validity of the calculated GFR AND GFRAA in patients over 70 years has not been determined. Clinical correlation is essential. LAB L501.1110 >60 mL/min Low EST GFR 28 Result Comment: Non- GFR Calc LAB L501.1115 >60 mL/min Low EST GFR - AA 34 Result Comment: GFR Calc LAB L501.1300 10-20 RATIO High BUN/CRE 40.6 LAB L501.2200 8.5-10.1 mg/dL CA Normal 8.9 LAB L501.5300 136-145 mmol/L NA Normal 141 LAB L501.5600 3.5-5.1 mmol/L K Normal 3.8 LAB L501.5900 98-107 mmol/L CL Normal 101 LAB L501.6100 21.0-32.0 mmol/L Normal CO2 32.0 LAB L501.6200 5-15 Normal GAP 8 Performed By: #### L500.2500 #### [facility] [address] [place], [address] PROTHROMBIN TIME W/INR Collected: 12/04/2017 Status: F Source: NAM 8:37 AM [facility] REPOSITORY TYPE CODE TESTS RESULT OUT OF RANGE REFERENCE UNITS LAB L300.4150 11.7-14.9 SECONDS High PROTIME 26.0 LAB L300.4200 Normal INR 2.4 Performed By: #### L300.3900 #### [facility] [address] [place], [address] BASIC METABOLIC Collected: 12/04/2017 Status: F Source: [place] PROFILE ([place]) 8:36 AM [facility] REPOSITORY Order Comment: Comments: With next PT/INR Comments: With next PT/INR TYPE CODE TESTS RESULT OUT OF RANGE REFERENCE UNITS LAB L501.0100 74-106 mg/dL High GLU 312 Result Comment: Glucose result greater than or equal to 200 mg/dL suggests DIABETES MELLITUS per A.D.A. criteria. Please note revised GLUCOSE reference range effective 2017. LAB L501.1000 7-18 mg/dL High BUN 78 LAB L501.1100 0.55-1.02 mg/dL High CREAT,SERUM 1.97 Result Comment: The validity of the calculated GFR AND GFRAA in patients over 70 years has not been determined. Clinical correlation is essential. LAB L501.1110 >60 mL/min Low EST GFR 27 Result Comment: Non- GFR Calc LAB L501.1115 >60 mL/min Low EST GFR - AA 32 Result Comment: GFR Calc LAB L501.1300 10-20 RATIO High BUN/CRE 39.6 LAB L501.2200 8.5-10.1 mg/dL CA Normal 8.9 LAB L501.5300 136-145 mmol/L Low NA 135 LAB L501.5600 3.5-5.1 mmol/L K Normal 3.9 LAB L501.5900 98-107 mmol/L Low CL 96 LAB L501.6100 21.0-32.0 mmol/L Normal CO2 32.0 LAB L501.6200 5-15 Normal GAP 7 Performed By: #### L500.2500 #### [facility] [address] [place], [address] CARDIOLOGY VISIT Observed: 11/20/2017 Status: F Source: [place] REPORT 1:54 PM [facility] REPOSITORY [facility] [address] [place] [address] OFFICE VISIT Date of Service: 11/20/17 MR#: [id number] Acct: [id number] Name: ELIZABETH HO Rep #: [id number] : 1950 Provider: Michael See MD Age/Sex: 67/F [place] [facility] [place]: Signed HPI HPI Details: ELIZABETH HO, is a 67 F who presents to the office today for outpatient cardiovascular follow-up. As you know she was hospitalized at [facility] in August of this year for concerns of recurrent volume overload. She required alteration in her diuretic therapy. She did not require additional invasive evaluation or care. She was eventually released home for continued outpatient follow-up. At the present time she states overall she appears to be doing well. She is not complaining of any ongoing symptoms of classic angina pectoris nor she had any acute on chronic CHF with worsening shortness of breath/dyspnea or orthopnea/PND. She has chronic bilateral lower extremity peripheral pitting edema and she is in chronic bilateral lower extremity [place] wraps at this time. There has been no near syncope or syncope. Her ICD has not discharged. Intake Vital Signs11/20/17 Height 5 ft 6 in 11/20/17 Weight: 203 lb 11/20/17 Body Mass Index (BMI) 32.8 11/20/17 Blood Pressure 112/58 Intake Visit Reasons: 9 M FU Allergies amoxicillin trihydrate [From Augmentin] Allergy (Verified 11/20/17 13:00) Rash potassium clavulanate [From Augmentin] Allergy (Verified 11/20/17 13:00) Rash Sulfa (Sulfonamide Antibiotics) Allergy (Verified 11/20/17 13:00) Hives vancomycin Allergy (Verified 11/20/17 13:00) Other Medications Aspirin [Aspirin, Baby] 81 mg PO DAILY 03/04/14 [History Confirmed 11/20/17] Insulin Glargine,Hum.rec.anlog [Lantus] 42 unit SQ BREAKFAST 12/17/16 [History Confirmed 11/20/17] Levothyroxine [Synthroid] 75 mcg PO 0600 12/17/16 [History Confirmed 11/20/17] Polyethylene Glycol 3350 [Miralax] 17 gm PO DAILY 12/18/16 [History Confirmed 11/20/17] Acetaminophen [Tylenol] 1,000 mg PO Q8H PRN PRN tab 02/01/17 [Rx Confirmed 11/20/17] amiodarone 200 mg tablet 200 mg PO DAILY #30 tab 03/31/17 [Rx Confirmed 11/20/17] Furosemide 40 mg PO BID 06/20/17 [History Confirmed 11/20/17] Insulin Aspart [Novolog Flexpen] 5 units SC BREAKFAST 06/20/17 [History Confirmed 11/20/17] carvedilol 6.25 mg tablet 6.25 mg PO BID 06/21/17 [History Confirmed 11/20/17] Docusate Sodium [Colace] 100 mg PO DAILY 07/22/17 [History Confirmed 11/20/17] atorvastatin 40 mg tablet 40 mg PO QHS #90 tab 09/11/17 [Rx Confirmed 11/20/17] Insulin Aspart [Novolog Flexpen] 8 unit SQ BID 09/17/17 [History Confirmed 11/20/17] Metolazone [Zaroxolyn] 5 mg PO MOWEFR #12 tab 09/20/17 [Rx Confirmed 11/20/17] spironolactone 25 mg tablet 25 mg PO DAILY #90 tab 10/13/17 [Rx Confirmed 11/20/17] warfarin 4 mg tablet 4 mg PO .COMPLEX 10/23/17 [History Confirmed 11/20/17] warfarin 1 mg tablet 1 mg PO .COMPLEX #60 tab 10/30/17 [Rx Confirmed 11/20/17] [facility] Medical History Aortic stenosis (Chronic) Paroxysmal atrial tachycardia (Chronic) Rheumatic tricuspid insufficiency (Chronic) ICD (implantable cardioverter-defibrillator) in place (Chronic) Ventricular tachycardia (paroxysmal) (Chronic) Anemia of chronic disease (Chronic) Cardiomyopathy, noncoronary (Chronic) HTN (hypertension) (Chronic) HLD (hyperlipidemia) (Chronic) Mitral valve stenosis and regurgitation (Chronic) Chronic atrial fibrillation (Chronic) CKD (chronic kidney disease) (Acute) Cellulitis of leg, left (Acute) Family history of CVA (Acute) History of rheumatic fever (Acute) Lymphedema of both lower extremities (Acute) PAOD (peripheral arterial occlusive disease) (Acute) Type 2 diabetes mellitus (Acute) Chronic venous insufficiency (Chronic) Rheumatoid arthritis (Chronic) CAD (coronary artery disease) (Inactive) CHF (congestive heart failure) (Inactive) Cellulitis of leg, left (Inactive) Chronic kidney disease (Inactive) Chronic venous insufficiency (Inactive) 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) Encounter for cardioversion procedure (Inactive) Exogenous obesity (Inactive) Family history of CVA (Inactive) Leg pain, bilateral (Inactive) Lymphedema (Inactive) Lymphedema of both lower extremities (Inactive) Morbid obesity (Inactive) PAOD (peripheral arterial occlusive disease) (Inactive) Pulmonary artery hypertension (Inactive) Rheumatoid arthritis (Inactive) Urinary tract infection (Inactive) Surgical History S/p TAVR (transcatheter aortic valve replacement), bioprosthetic (Chronic) History of tonsillectomy and adenoidectomy (Resolved) History of total hysterectomy (Resolved) Hx of appendectomy (Resolved) Family History Father CVA (cerebral vascular accident) Valvular heart disease Presence of permanent cardiac pacemaker Mother CVA (cerebral vascular accident) Other Family history of CVA Social History Smoking Status: Never smoker alcohol intake: never substance use type: does not use caffeine: Yes Type: coffee what type of physical activity do you participate in: none seatbelt use: always do you feel safe at home: Yes ROS Const Const: Positive for weakness (bilat LE); negative for fatigue, weight gain, weight loss, frequent falls or excessive sweating Eyes Eyes: Negative for change in vision, blurry vision or transient loss of vision ENT ENT: Positive for balance problems (mabulates with a wheeled walker); negative for dizziness Cardio Chest Pain: No Palpitations: No Edema: Bilateral (slight) Muscle aches with walking: None Resp Respiratory: Positive for SOB with activity (braething at baseline); negative for SOB at rest GI GI: Negative vomiting or vomiting blood/hematemesis : Negative for hematuria Musc Musc: Positive for balance problems (mabulates with a wheeled walker) and muscle weakness (bilat LE); negative for muscle aches/ myalgia or joint pain Skin Skin: Negative non-healing lesions or rash Neuro Neuro: Positive for weakness (bilat LE); negative for blurry vision, dizziness, lightheadedness, frequent falls or orthostatic symptoms Alexi Hematologic/Lymphatic: Negative for easy bleeding Endo Endo: Negative for fatigue or excessive sweating Psych Psych: Negative for anxiety or depression Allergy Allergy/Immunology: Negative for hives, Negative for rash Cardiology Exam Const Appearance: cooperative, comfortable, no acute distress, well developed, well groomed and other (examined in the wheelchair) Nutritional Appearance: overweight Orientation: alert, awake and oriented x3 Head Head: normal to inspection, normocephalic and atraumatic Nose: external nose normal Face and Sinus: face symmetric Mouth: oral mucosae normal Teeth and gingiva: fair dentition Eyes Eyelids: eyelids normal Conjunctivae: conjunctivae normal Pupils: PERRL EOM: EOM intact bilaterally Neck Neck: normal visual inspection and full ROM Carotids: normal carotid upstroke Chest Chest inspection: normal inspection of the chest and symmetric chest movement Auscultation: Bilateral: Rales (minimal: bibasilar) Cardio Palpation: normal PMI Rhythm: regular rhythm Heart sounds: S1 normal and S2 normal Murmur: Grade 3/6, mid systolic, LLSB, LVOT and sternal notch GI GI: normal to inspection, soft and bowel sounds present Neuro General: alert, awake and oriented x3 Skin Skin: ecchymosis (bilateral upper extremities) Extremities Pulses: Normal: Right Radial Pulse, Left Radial Pulse Lower Extremity Edema: +3: Bilateral (bilateral lower extremity FALLON wraps) Psych Psychological: normal affect Supplemental Info She did have a transthoracic echocardiogram performed [facility] on 07/10/2017. The results are as noted below. Interpretation Summary Normal LV size. The estimated ejection fraction is 47 %. Mild global left ventricular systolic dysfunction. Bioprosthetic aortic valve. Mild perivalvular insufficiency of the aortic valve. Pulmonary artery systolic pressure is 50 mmHg. Moderate pulmonary hypertension. Compared to prior study, there is no significant change. She did have a diagnostic cardiac catheterization performed at [facility] on 03/04/2014. Per their report the left main coronary artery was normal, the LAD had diffuse mild luminal irregularities, the LCx was a large dominant vessel with 30- 40% stenosis, the RCA was a small nondominant vessel with minimal diffuse irregularities She does have an ICD in place. This is a [employer] IS-1/DF-1/ model #E143 serial #[id number] dual-chamber ICD implanted on 08/14/2014 Assessment AND Plan 1. S/p TAVR (transcatheter aortic valve replacement), bioprosthetic Z95.3 26 mm Bond Sapein Bioprosthetic Aortic Valve Plan The patient does have a history of previous TAVR. She continues to follow locally and at the [facility]. Based upon a letter from her biofuels product manager at the [facility] from 09/03/2015 it was recommended that she continue medical management and follow- up. He did not recommend any additional diagnostic studies at that time. The patient states she was asked to have a transthoracic echocardiogram prior to her next [facility] visit which would occur in August 2018. In the interim she will continue outpatient cardiovascular follow-up. She will be re-as best as needed. 2. Mitral valve insufficiency I34.0 Plan She does have an element of mitral valve regurgitation. It has not required further attempts at intervention in the past. At the present time she will continue to be followed by history, exam, and echocardiogram. Thus at the present time she will continue to be followed. 3. Cardiomyopathy, noncoronary I42.8 Plan She does have a history of a previous non-CAD related cardiomyopathy. Her LV systolic function and LVEF have varied. She will continue to be followed by history, exam, and echocardiogram as deemed appropriate. Her medications will be adjusted as needed. 4. CHF exacerbation I50.9 Plan She does have a history of CHF. At the moment she appears to be without acute changes. She does have chronic bibasilar rales. She has chronic lower extremity peripheral pitting edema. However again she appears to be without acute distress. She will continue medical management and follow-up peer Orders Orders: 5. Paroxysmal atrial fibrillation I48.0 Plan She has a history of paroxysmal atrial fibrillation. She has continued medical therapy which does include anticoagulant therapy. She will continue to have her INR followed and adjusted. 6. Paroxysmal ventricular tachycardia I47.2 S/P AICD Plan She has a history of paroxysmal ventricular dysrhythmias. She has been evaluated in the past by electrophysiology both in [facility] as well as at [facility]. She does have an underlying ICD in place. It continues to be followed. 7. Automatic implantable cardioverter-defibrillator in situ Z95.810 Plan Again she has an ICD in place. She will continue outpatient follow-up of her device 8. Mixed hyperlipidemia E78.2 Plan She will continue risk factor modification and medical management as deemed appropriate. Plan Detail Additional Comments She will have a follow-up BMP with her next INR to assess her underlying renal insufficiency and to help manage her multiple medical issues and her medications. Thank you for allowing me to participate in the care of your patient. Please don't hesitate to call if any issues arise. This note was generated using a voice recognition system and there may be incorrect words, spelling or punctuation that were not noted when reviewing the office note prior to saving. Follow Up 6 Months (PFM) Coding Level of Care Code Off vis,est,level 4 Diagnoses S/p TAVR (transcatheter aortic valve replacement), bioprosthetic Z95.3 Mitral valve insufficiency I34.0 Cardiomyopathy, noncoronary I42.8 CHF exacerbation I50.9 Paroxysmal atrial fibrillation I48.0 Atrial fibrillation type: paroxysmal Paroxysmal ventricular tachycardia I47.2 Automatic implantable cardioverter-defibrillator in situ Z95.810 Mixed hyperlipidemia E78.2 Hyperlipidemia type: mixed hyperlipidemia Coding Level of Care Code Off vis,est,level 4 Diagnoses S/p TAVR (transcatheter aortic valve replacement), bioprosthetic Z95.3 Mitral valve insufficiency I34.0 Cardiomyopathy, noncoronary I42.8 CHF exacerbation I50.9 Paroxysmal atrial fibrillation I48.0 Atrial fibrillation type: paroxysmal Paroxysmal ventricular tachycardia I47.2 Automatic implantable cardioverter-defibrillator in situ Z95.810 Mixed hyperlipidemia E78.2 Hyperlipidemia type: mixed hyperlipidemia 11/20/17 1354 <Electronically signed by Michael See MD> Date Michael See MD Cosigner Signature: Date (if applicable) CC: Williams Parekh MD PROTIME W/INR Collected: 11/20/2017 Status: F Source: [place] 12:34 PM [facility] REPOSITORY TYPE CODE TESTS RESULT OUT OF REFERENCE UNITS RANGE LAB L9200.1001 11.9-14.4 SEC High PROTIME ISTAT 21.8 Result Comment: Reference Range 11.9 - 14.4 LAB L9200.2000 Normal INR ISTAT 1.90 Result Comment: Critical Value > 3.5 Performed By: #### L9200.0000 #### [facility] Point of Care [address] [place], [place] [address] [place] [address] EMERGENCY DEPARTMENT Observed: 11/14/2017 Status: F Source: [place] SUMMARY 3:40 PM [facility] REPOSITORY [facility] Medical Records Department [address] [place] [address] Emergency Department Summary 11/14/17 1245 MR#: [id number] Acct: [id number] Name: ELIZABETH HO Rep #: [id number] : 1950 67 From: Vinay Valerio MD PCP: Williams Parekh MD Status: DEP ER - ER Visit Summary Date of Service: 11/14/17 Chief Complaint: Constipation History of Present Illness: The patient is a 67 F with no bowel movement for 2 days. The patient feels rectal discomfort like she needs to have a bowel movement, but is unable. She tried fbbh-alq-ccfkjub remedies with no success. She has not tried an enema. Physical Examination: Police Chief Deputy exam showed a fecal impaction. Abdomen soft and nontender. Skin appears normal. No other pertinent findings. Test Results: None indicated Emergency Department Course and Treatment: Solange RN quality control lab technician the exam. The patient had a digital disimpaction. She tolerated this with some discomfort but otherwise well. No bleeding or complications. Patient feels better afterwards and will be discharged. Treatment Plan: Continue hnrc-zcr-kpobuvj remedies at home. Stay hydrated. Increase fiber intake. Disposition: Discharged Impression: 1. Fecal impaction This note was generated with SnapMD dictation software. It may contain incorrect words, spelling, and punctuation that were not noted in review of the chart prior to signing ED Disposition - Plan for ED Patient: Chief Complaint: Constipation Referrals: Williams Parekh MD [Primary Care Provider] - What to do if you have Problems For any increased pain, shortness of breath, bleeding, nausea or vomiting, chest pain, or any unexpected problems, contact your Primary Care Provider. Call [facility] ([phone]) or report to the closest Emergency Room. Call 911 if necessary. 11/14/17 1540 <Electronically signed by Vinay Valerio MD> Date Vinay Valerio MD Cosigner Signature (If Indicated): Date CC: Williams Parekh MD DISCHARGE INSTRUCTION Observed: 11/14/2017 Status: F Source: [place] 3:40 PM [facility] REPOSITORY [facility] Medical Records Department [address] [place] [address] Discharge Instruction 11/14/17 1248 MR#: [id number] Acct: [id number] Name: ELIZABETH [place] Rep #: [id number] : 1950 67 From: Vinay Valerio MD PCP: Williams Parekh MD Status: DEP ER ED Disposition - Plan for ED Patient: Chief Complaint: Constipation Instructions: ED Constipation Referrals: Wililams Parekh MD [Primary Care Provider] - What to do if you have Problems For any increased pain, shortness of breath, bleeding, nausea or vomiting, chest pain, or any unexpected problems, contact your Primary Care Provider. Call [facility] ([phone]) or report to the closest Emergency Room. Call 911 if necessary. 11/14/17 1540 <Electronically signed by Vinay Valerio MD> Date Vinay Valerio MD Cosigner Signature (If Indicated): Date CC: Williams Parekh MD PROTHROMBIN TIME W/INR Collected: 11/09/2017 Status: F Source: [place] 11:20 AM [facility] REPOSITORY TYPE CODE TESTS RESULT OUT OF RANGE REFERENCE UNITS LAB L300.4150 11.7-14.9 SECONDS High PROTIME 31.6 LAB L300.4200 Normal INR 3.0 Performed By: #### L300.3900 #### [facility] [place], [address] PROTIME W/INR Collected: 11/03/2017 Status: F Source: [place] 10:34 AM [facility] REPOSITORY TYPE CODE TESTS RESULT OUT OF REFERENCE UNITS RANGE LAB L9200.1001 11.9-14.4 SEC High PROTIME ISTAT 35.9 Result Comment: Reference Range 11.9 - 14.4 LAB L9200.2000 Normal INR ISTAT 3.20 Result Comment: Critical Value > 3.5 Performed By: #### [id number] #### [facility] Point of Care [address] [place] [address] PROTIME W/INR Collected: 10/30/2017 Status: F Source: [place] 11:55 AM [facility] REPOSITORY TYPE CODE TESTS RESULT OUT OF REFERENCE UNITS RANGE LAB L9200.1001 11.9-14.4 SEC High PROTIME ISTAT 42.6 Result Comment: Reference Range 11.9 - 14.4 LAB L9200.2000 High alert INR ISTAT 3.80 Result Comment: Critical Value > 3.5 Performed By: #### [id number] #### [facility] Point of Care [address] [place] [address] PROTHROMBIN TIME W/INR Collected: 10/30/2017 Status: F Source: [place] 11:55 AM [facility] REPOSITORY Order Comment: Result obtained is for confirmation testing of Fingerstick PT/INR Specimen # [id number] . 10/30/17 1204 RHESS THIS CONFIRMATION SPECIMEN RESULT IS FROM VENOUS BLOOD. TYPE CODE TESTS RESULT OUT OF REFERENCE UNITS RANGE LAB L300.4150 11.7-14.9 SECONDS High PROTIME 39.8 LAB L300.4200 High alert INR 4.1 Result Comment: CRITICAL VALUE VERIFIED. CALLED TO ANJELICA AT 'S OFFICE. 10/30/17 1245 Reji Taylor. RESULTS READ BACK BY SAME. Performed By: #### L300.3900 #### [facility] [place], [address] PROTIME W/INR Collected: 10/23/2017 Status: F Source: [place] 7:55 AM [facility] REPOSITORY TYPE CODE TESTS RESULT OUT OF REFERENCE UNITS RANGE LAB L9200.1001 11.9-14.4 SEC High PROTIME ISTAT 38.9 Result Comment: Reference Range 11.9 - 14.4 LAB L9200.2000 Normal INR ISTAT 3.40 Result Comment: Critical Value > 3.5 Performed By: #### L9200.0000 #### [facility] Point of Care [address] [place] [address] OFFICE VISIT REPORT Observed: 10/17/2017 Status: F Source: [place] 8:08 AM [facility] [address] [place] [address] OFFICE VISIT Date of Service: 10/16/17 MR#: [id number] Acct: [id number] Patient: ELIZABETH HO Rep #: [id number] : 1950 Provider: LEXI Jenkins Age/Sex: 67/F [place] [facility] Signed Intake Intake Visit Reasons: check bruises per LL Chief Complaint: CP/SOB Allergies amoxicillin trihydrate [From Augmentin] Allergy (Verified 09/17/17 09:25) Rash potassium clavulanate [From Augmentin] Allergy (Verified 09/17/17 09:25) Rash Sulfa (Sulfonamide Antibiotics) Allergy (Verified 09/17/17 09:25) Hives vancomycin Allergy (Verified 09/17/17 09:25) Other Medications Aspirin [Aspirin, Baby] 81 mg PO DAILY@0800 03/04/14 [History Confirmed 09/17/17] Insulin Glargine,Hum.rec.anlog [Lantus] 42 unit SQ BREAKFAST 12/17/16 [History Confirmed 09/17/17] Levothyroxine [Synthroid] 75 mcg PO 0600 12/17/16 [History Confirmed 09/17/17] Polyethylene Glycol 3350 [Miralax] 17 gm PO DAILY 12/18/16 [History Confirmed 09/17/17] Acetaminophen [Tylenol] 1,000 mg PO Q8H PRN PRN tab 02/01/17 [Rx Confirmed 09/17/17] amiodarone 200 mg tablet 200 mg PO DAILY #30 tab 03/31/17 [Rx Confirmed 09/17/17] Furosemide 40 mg PO BID 06/20/17 [History Confirmed 09/17/17] Insulin Aspart [Novolog Flexpen] 5 units SC BREAKFAST 06/20/17 [History Confirmed 09/17/17] carvedilol 6.25 mg tablet 6.25 mg PO BID 06/21/17 [History Confirmed 09/17/17] Docusate Sodium [Colace] 100 mg PO DAILY 07/22/17 [History Confirmed 09/17/17] warfarin 2 mg tablet 2 mg PO SUTUWETHFRSA 08/07/17 [History Confirmed 10/16/17] atorvastatin 40 mg tablet 40 mg PO QHS #90 tab 09/11/17 [Rx Confirmed 09/17/17] Insulin Aspart [Novolog Flexpen] 8 unit SQ BID 09/17/17 [History Confirmed 09/17/17] Warfarin [Coumadin] 4 mg PO MO 09/17/17 [History Confirmed 10/16/17] Metolazone [Zaroxolyn] 5 mg PO MOWEFR #12 tab 09/20/17 [Rx] Warfarin [Coumadin] 2 mg PO DAILY@1700 tab 09/20/17 [Rx Confirmed 10/16/17] spironolactone 25 mg tablet 25 mg PO DAILY #90 tab 10/13/17 [Rx] Nurse's Note: Pt here for wound check left upper arm: it has now substantially faded to light pink/yellow where it was once deep purple. It is soft and nontender. Pt instructed to resume Coumadin at usual dose and recheck INR in 1 week. 10/17/17 0808 <Electronically signed by Anibal GREEN> Date Anibal GREEN Cosigner Signature: Date (if applicable) CC: PROTIME W/INR Collected: 10/16/2017 Status: F Source: [place] 9:50 AM [facility] REPOSITORY TYPE CODE TESTS RESULT OUT OF REFERENCE UNITS RANGE LAB L9200.1001 11.9-14.4 SEC High PROTIME ISTAT 20.1 Result Comment: Reference Range 11.9 - 14.4 LAB L9200.2000 Normal INR ISTAT 1.70 Result Comment: Critical Value > 3.5 Performed By: #### L9200.0000 #### [facility] Point of Care [address] [place] [id number] OFFICE VISIT REPORT Observed: 10/11/2017 Status: F Source: [place] 3:43 PM [facility] [place] [address] OFFICE VISIT Date of Service: MR#: [id number] Acct: [id number] Patient: ELIZABETH HO Rep #: [id number] : 1950 Provider: Yani Rick Age/Sex: 67/F [place] [facility] [place] Signed Intake Intake Visit Reasons: Amb Documentation Allergies amoxicillin trihydrate [From Augmentin] Allergy (Verified 09/17/17 09:25) Rash potassium clavulanate [From Augmentin] Allergy (Verified 09/17/17 09:25) Rash Sulfa (Sulfonamide Antibiotics) Allergy (Verified 09/17/17 09:25) Hives vancomycin Allergy (Verified 09/17/17 09:25) Other Medications Aspirin [Aspirin, Baby] 81 mg PO DAILY@0800 03/04/14 [History Confirmed 09/17/17] Insulin Glargine,Hum.rec.anlog [Lantus] 42 unit SQ BREAKFAST 12/17/16 [History Confirmed 09/17/17] Levothyroxine [Synthroid] 75 mcg PO 0600 12/17/16 [History Confirmed 09/17/17] Polyethylene Glycol 3350 [Miralax] 17 gm PO DAILY 12/18/16 [History Confirmed 09/17/17] Acetaminophen [Tylenol] 1,000 mg PO Q8H PRN PRN tab 02/01/17 [Rx Confirmed 09/17/17] amiodarone 200 mg tablet 200 mg PO DAILY #30 tab 03/31/17 [Rx Confirmed 09/17/17] Furosemide 40 mg PO BID 06/20/17 [History Confirmed 09/17/17] Insulin Aspart [Novolog Flexpen] 5 units SC BREAKFAST 06/20/17 [History Confirmed 09/17/17] Spironolactone [Aldactone] 25 mg PO DAILY 06/20/17 [History Confirmed 09/17/17] carvedilol 6.25 mg tablet 6.25 mg PO BID 06/21/17 [History Confirmed 09/17/17] Docusate Sodium [Colace] 100 mg PO DAILY 07/22/17 [History Confirmed 09/17/17] warfarin 2 mg tablet 2 mg PO SUTUWETHFRSA 08/07/17 [History Confirmed 10/11/17] atorvastatin 40 mg tablet 40 mg PO QHS #90 tab 09/11/17 [Rx Confirmed 09/17/17] Insulin Aspart [Novolog Flexpen] 8 unit SQ BID 09/17/17 [History Confirmed 09/17/17] Warfarin [Coumadin] 4 mg PO MO 09/17/17 [History Confirmed 10/11/17] Metolazone [Zaroxolyn] 5 mg PO MOWEFR #12 tab 09/20/17 [Rx] Warfarin [Coumadin] 2 mg PO DAILY@1700 tab 09/20/17 [Rx Confirmed 10/11/17] Nursing Note Pateint had developed a spontaneous large bruise on entire left upper arm over weekend. I scooter an outline in ink around it on Monday10/09/17, and today it is still fairly the same size, but much softer and the borders are turning greenish yellow. Patient is done with antibiotics. I asked her to resume Coumadin at 2 mg daily and recheck next Monday. She is also to come back up for a recheck of her arm after that. 10/11/17 1543 <Electronically signed by Michael See MD> Date Michael See MD Cosigner Signature: Date (if applicable) CC: Yani Rick PROTIME W/INR Collected: 10/09/2017 Status: F Source: [place] 7:51 AM [facility] REPOSITORY TYPE CODE TESTS RESULT OUT OF REFERENCE UNITS RANGE LAB L9200.1001 11.9-14.4 SEC High PROTIME ISTAT 31.1 Result Comment: Reference Range 11.9 - 14.4 LAB L9200.2000 Normal INR ISTAT 2.70 Result Comment: Critical Value > 3.5 Performed By: #### L9200.0000 #### [facility] Point of Care [address] [place] [address] FREE T4 Collected: 10/03/2017 Status: F Source: [place] 2:12 PM [facility] REPOSITORY TYPE CODE TESTS RESULT OUT OF RANGE REFERENCE UNITS LAB FT4 0.9-1.7 ng/dL Free T4 1.6 Performed By: #### FT4, CMP, RF, TSH, HBA1C #### [facility] [address] [place], [place] [address] COMP METABOLIC PANEL Collected: 10/03/2017 Status: F Source: [place] 2:12 PM [facility] REPOSITORY TYPE CODE TESTS RESULT OUT OF REFERENCE UNITS RANGE LAB TP 6.3-8.0 g/dL Protein, Total 6.8 LAB ALB 3.9-4.9 g/dL Low Albumin 3.8 LAB CA 8.5-10.2 mg/dL Calcium, Total 9.3 LAB TBIL 0.2-1.3 mg/dL Bilirubin, Total 0.6 LAB ALKP 32-117 U/L Alkaline Phosphatase 54 LAB AST 13-35 U/L AST 17 LAB GLU 74-99 mg/dL Glucose High 229 Result Comment: The [place] Diabetes Association (ADA) provides guidance for cutoff values for fasting glucose and random glucose. The ADA defines fasting as no caloric intake for at least 8 hours. Fas ting plasma glucose results between 100 to 125 mg/dL indicate increased risk for diabetes (prediabetes). Fasting plasma glucose results greater than or equal to 126 mg/dL meet the criteria for diagnosis of diabetes. In the absence of unequivocal hyperglycemia, results should be confirmed by repeat testing. In a patient with classic symptoms of hyperglycemia or hyperglycemic crisis, random plasma glucose results greater than or equal to 200 mg/dL meet the criteria for diagnosis of diabetes. Reference: Standards of Medical Care in Diabetes 2016, [place] Diabetes Association. Diabetes Care. 2016.39(Suppl 1). LAB BUN 7-21 mg/dL BUN High 86 LAB CRET 0.58-0.96 mg/dL Creatinine High 1.77 LAB NA 136-144 mmol/L Sodium 141 LAB K 3.7-5.1 mmol/L Potassium 4.3 LAB CL 97-105 mmol/L Low Chloride 93 LAB CO2 22-30 mmol/L CO2 28 LAB AGAP 9-18 mmol/L Anion Gap High 20 LAB ALT 7-38 U/L ALT 12 LAB GFRAA eGFR- Amer. 34 LAB GFRNAA . eGFR-All Other Races 28 Result Comment: eGFR (Estimated GFR) Units of measure: mL/min/1.73 meters squared eGFR is derived from the reexpressed MDRD Study equation using the following parameters: serum creatinine, age, gender and race. The creatinine assay has been calibrated to be traceable to IDMS. An eGFR <60 mL/min/1.73m2 for >3 months is consistent with chronic kidney disease. Refer to KDOQI guidelines for clinical interpretation. In patients with unstable renal function, e.g. those with acute kidney injury, the eGFR may not accurately reflect actual GFR. Performed By: #### FT4, CMP, RF, TSH, HBA1C #### [facility] [address] [address] RHEUMATOID FACTOR Collected: 10/03/2017 Status: F Source: [place] 2:12 PM [facility] REPOSITORY TYPE CODE TESTS RESULT OUT OF REFERENCE UNITS RANGE LAB RF <16 IU/mL Rheumatoid <10 Factor Performed By: #### FT4, CMP, RF, TSH, HBA1C #### [facility] [address] [address] TSH Collected: 10/03/2017 Status: F Source: [place] 2:12 PM [facility] REPOSITORY TYPE CODE TESTS RESULT OUT OF RANGE REFERENCE UNITS LAB TSH 0.400-5.500 uU/mL TSH 2.280 Performed By: #### FT4, CMP, RF, TSH, HBA1C #### [facility] [address] [id number] HEMOGLOBIN A1C Collected: 10/03/2017 Status: F Source: [place] 2:12 PM [facility] REPOSITORY TYPE CODE TESTS RESULT OUT OF REFERENCE UNITS RANGE LAB HGBA1C 4.3-5.6 % High Hemoglobin A1c 6.7 LAB HBA0 mg/dL Est. Average Glucose 146 Result Comment: eAG: (Estimated average glucose) is a calculated value from HgbA1c and is senior human resources representative of the average blood glucose level in the last 2-3 month period. Performed By: #### FT4, CMP, RF, TSH, HBA1C #### [facility] [address] [place], [place] [address] ALBUMIN/CREAT RATIO Collected: 10/03/2017 Status: F Source: [place] 2:12 PM [facility] REPOSITORY TYPE CODE TESTS RESULT OUT OF REFERENCE UNITS RANGE LAB UCRR 20-300 mg/dL 47.7 Creatinine,Ur ine,Ran LAB UALBR 0.0-23.0 mg/L <12.0 Albumin Urine Random LAB UALBCR 0-30 mg/g Not Albumin/Creat calculated Ratio Performed By: #### UACR #### [facility] [address] [place], [place] [address] CNOV Observed: 10/03/2017 Status: COMPLETED Source: [place] 1:00 PM [facility] REPOSITORY Office Visit (INTMWS) ELIZABETH HO ([id number]) 1950 F Date Time Provider Department 10/03/17 1:00 PM RON MACISA ([facility]) INTMWS During your visit today, we recorded the following information about you: Temperature Pulse Respiration Blood pressure 98.1 degrees 64/minute 16/minute 122/64 Weight 92.1 kg Ron Macias APRN.CNP 10/03/2017 3:58 PM Signed CC: No chief complaint on file. HPI Elizabeth Ho is a 67 year old female who presents today with iriqfp-io-len for [facility] follow up from 09/17 to 09/20/17. Patient presented to the ER on 09/17 for complaints of chest pain and worsening SOB. Patient was found to have acute on chronic systolic CHF. She was put on a Lasix drip until adequately diuresed. Cardiology was consulted during hospital admission who recommended she increase her Metolazone dose to 5mg Mon, Wed, and Fri. Patient was discharged home on 08/3017. Since returning home patient reports feeling tired and weak, with complaints of bone pain, an isolated episode of the sweats last evening and would like her left foot/toes looked at after patient's visiting nurse was in today. Patient denies any association of her episodic sweats to hypoglycemia, she did not check her blood glucose at the time but indicated that she knows her symptoms. Patient report that her left foot/toes are noticeably red and swollen for the past couple of days. Patient would also like a SED rate checked due to her bone pain. She apologized that she doesn't like to complain but she wants to get to the bottom of this! REVIEW OF SYSTEMS General: no fevers, no night sweats, no recurrent infections, no change in appetite, no significant changes in weight and See HPI HEENT: no frequent or significant headaches, no changes in hearing, no visual changes, no nose bleeds, no sinus or nasal problems Respiratory: no cough, no wheezing, no hemoptysis Cardiovascular: no chest pain, no chest pressure, no palpitations and Positive for: chronic swelling GI: No nausea, vomiting, or diarrhea Skin: See HPI Neurologic: No headache, numbness, tingling, neck stiffness, tremor, vertigo, dizziness, memory loss, syncope., See HPI PAST MEDICAL HISTORY Diagnosis Date - Acute on chronic combined systolic and diastolic congestive heart failure (HCC) 03/20/2013 NICM by outside echo EF 35%, stage II diastolic dysfunction 03/19 RHC: CI by Gudelia 2.75, SVR 1129, PA 47/18, wedge 22 On admission 06/2013, clinically euvolaemic -not on ACEi/ARB currently with hx of renal dysfunction and severe -continue carvedilol -ICD in situ - Interrogate ICD to determine if decompensation is due to underlying arrhythmia (h/o VT/AF). Will need to call on Monday. - Decrease coreg to 3.125 mg BID. Attempted Hydralazine but patient did not tolerate due to hypotension on 07/06. - Slight bump in Cr 07/07 so decrease Lasix to 40 mg BID. Will continue Aldactone but will need to monitor CrCl. -Will need follow up labs- arranged for at [facility] - Anemia 05/15/2013 Chronic anemia of unclear etiology. Received 2 units PRBC transfusion in April at OSH. Previous iron studies in our system suggestive of AoCD. Reports Colonoscopy/EGD ~ 2 years ago which did not show any major abnormalities. Presents with severe anemia in setting of supratherapeutic INR this admission. Denies BRBPR/melena but may have bleeding AVMs in the setting of severe . Also in setting of thrombocytopenia. Concern for DIC - fibrinogen negative -Received 6u PRBC since admission, stools melanotic Plan: - Monitor H/H, monitor coags/plts, check hemolysis labs as add-ons insufficient yesterday - NPO for possible EGD/Cscope today-> revealed polyps but bowel prep was inadequate, plan for capsule study 07/24/2013, NPO. ->capsule study neg for bleed. Pt needs elective colonoscopy as out pt to remove polyps. Recheck CBC next Monday. August 02. Fax results to DR George. - Aortic stenosis 03/20/2013 Progressive SOB on exertion, heart failure symptoms over the past 1 week preceding admission 07/05/2013. Known to have severe calcific tri-leaflet aortic valve stenosis. Denies chest pain, syncope, pre syncope. Echo: ALEX 0.81cm2, dimensionless index 0.23, pk/mn gradients 62/35 mmHg on 07/08/2013 Plan: - Planned for TF TAVR on 07/23/2013 - possibly delayed given likely GIB - Recently postponed due to UTI - will recheck UA and urine culture. Now postponed due to anemia. 07/26/2013 DC to SNF and return for TAVR at a later date. - Aortic valve disorders - Atrial fibrillation (HCC) - Atrial fibrillation (HCC) 04/02/2005 Currently NSR Plan: - Supratherapeutic INR on presentation, holding Warfarin - holding heparin given GIB and risks>benefits - on carvedilol - ICD in place - Atrial fibrillation (HCC) 04/02/2005 H/o pAF on coumadin and amiodarone Warfarin was stopped last admission on 07/23 for severe anemia concerning for GI bleed Plan: - currently in NSR - c/w amiodarone - Monitor Hb - Back pain 03/21/2013 Right sided back, shoulder, and arm pain s/p fall 03/14 Now chronic pain. Cont PRN meds R shoulder blade tender to touch-> beside MS UTI contributing, started tx for UTI - Bursitis of left shoulder 05/15/2013 - Cellulitis of left leg 01/29/2010 [facility] ER 01/27/10 transferred to [facility] Dx: sepsis, afib, elevated INR - Chest pain, atypical 03/04/2014 Prior cath in 02/2013 had mild nonobstructive CAD. ACS possible but less likely. Already on ASA/plavix. Will cotninue. Hold on heparin gtt unless has further pain. First set of biomarkers were negative. Will continue to cycle tonight. IF positive will consider LHC today. If negative the patient is reluctant for any stress test so this will need to be considered. Other ddx such as PE or dissection less likely. No tachycardia or worsened SOB. CP resolved currently. Echo in the AM -cath 03-04 mild nonobstructive CAD; no indication for revascularization. -continued to have occ sharp chest pain ->LHC mild nonobstructive CAD best treated with medical management. Device check ruled OUT VT/VF. Echo showed Stephanie aortic valve well seated, pk/mn gradients 30/17. - Chronic anticoagulation Managed by Dr. See (cardiology; [facility]) - CKD (chronic kidney disease) stage 4, GFR 15-29 ml/min ([facility]) -On HD in 2009 for about 6-7 months, but has since improved to the point where she no longer requires it -stable Plan: - monitor renal function - avoid nephrotoxins - DM (diabetes mellitus) type II uncontrolled with renal manifestation Diabetes mellitus NIDDM - ESRD on hemodialysis ([facility]) Dr. Luo ([place]) - Failure to extubation 08/26/2013 Patient was extubated in OR after the procedure. She was noted to be agitated so she was put on CPAP with pressure of 5. She was re intubated around 1 pm for end tidal CO2 of 52. Currently on SIMV 14 FiO2 30% Peep 5 Plan Resolved Transferred to the floor 5-7 - GI bleed 08/26/2013 - Heart failure, systolic and diastolic, chronic ([facility]) 07/21/2013 NICM EF 45%, stage I diastolic dysfunction on most recent Echo 06/2013 On admission, clinically euvolemic Plan: - not currently on ACEi/ARB due to renal dysfunction - on carvedilol - continue spironolactone - hold Lasix 40mg PO BID until acute anemia addressed but will diurese with transfusions as needed - ICD in situ - Heart failure, systolic and diastolic, chronic (HCC) 07/21/2013 NICM EF 45%, stage I diastolic dysfunction on most recent Echo 06/2013 On admission, clinically euvolemic Plan: - not currently on ACEi/ARB due to renal dysfunction - on carvedilol - continue spironolactone - hold Lasix 40mg PO BID until acute anemia addressed but will diurese with transfusions as needed - ICD in situ - Hives 07/29/2013 - Hyperlipidemia - Hypertension - Hypokalemia 03/20/2013 Monitor and replete prn to keep >4.0 - Hypomagnesemia 03/20/2013 Replete to keep >2.0 - Hypothyroidism 07/05/2013 - Leukocytosis 03/05/2014 No fever -WBC bumped up 12.55 -ordered u/a and culture-> UA suggests UTI urine cx pending, start Cipro. 03/07/2014 culture is pending, WBC decreased to 7.92 - Mechanical complication of other vascular device, implant, and graft 09/01/2010 - Morbid obesity ([facility]) - Morbid obesity ([facility]) Nutrition consult - Muscular deconditioning 09/14/2013 - Non-ischemic cardiomyopathy ([facility]) Cardiomyopathy--[place] - Paroxysmal ventricular tachycardia ([facility]) 04/02/2005 H/o VT/TdP s/p ICD. S/p defibrillator firing on 03/15/13 in the context of hypokalemia. Electrically quiescent on admission 06/2013 Plan: Monitor lytes and replete prn - Peripheral vascular disease (HCC) - Pressure ulcer, other site(707.09) 07/07/2013 bilateral ischium stage II POA. Xenoderm per nursing. This was present on admission. cont wound care. Also bilateral heel pressure ulcers stage 1 poa - Rectus sheath hematoma 03/29/2013 3.8 cm rectus hematoma noted on CT scan Complaining of some fleeting nausea, no pain Monitor blood counts - Renal failure 05/07/2010 Renal status stable. Off dialysis - S/P TAVR (transcatheter aortic valve replacement) 09/14/2013 - Severe aortic stenosis 08/26/2013 S/p #26 ES TF-TAVR. Exam without murmurs of AI or progressive . Will check echo in the AM but no reason to suggest valvular malfunction. Cont ASA/plavix Echo EF 45%, Bond-Stephanie prosthetic aortic valve (size #26). The peak gradient is 30 mmHg and the mean gradient is 17 mmHg. S/P transcathetaer AVR ( Bond Stephanie # 26) with mild anterior AI (seen best in initial parasternal views. - Staphylococcal infection of skin lower sheen both, - STASIS DERMATITIS 12/26/2007 Chronic changes of both legs, no recent change per patient, Uses emollient to good effect at home, will continue - Thrombocytopenia (HCC) 07/26/2013 Anemia with thrombocytopenia that is resolving. - Thrombophlebitis arm 03/22/2013 Assessment: DARREL NOBLE PIV site from OSH now warm, red, and firm with purulent drainage -BC from OSH report MSSA -03/25 IANDD to left antecubital fossa Plan: - Continue oxacillin IV 2 gm q4 hrs - Anticipate CoPAT- (ordered placed for david catheter) - ID following - BC x2 redrawn 03/30: ID rec to keep oxacillin going for 6 weeks, will write COPAT. David placed. Will go to [facility] on Monday. - Torsades de pointes (HCC) 03/20/2013 -ICD in place received appropriate shocks on 03/14 Cont amiodarone Pacer check to ensure CP wasn't arrhythmia such as aborted VT-> device check no VT/VF - Type II or unspecified type diabetes mellitus without mention of complication, not stated as uncontrolled 01/10/2005 - Check HbA1C - Lantus and prandial lispro with SSI coverage - BS poorly controlled HD #1. Increased prandial insulin dosing and Lantus. 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 This was not quiroz induced this was [employer]. Will discuss with ID - monitor for symptoms- > no symptoms, no fever and WBC WNL. Spoke with Dr. Shay from ID who said no signs/symptoms of UTI so would not treat with ATBs, they recommended remove quiroz-> but need urology to see pt first. Curbsided urology fellow who recommended removing quiroz, consult if difficulty difficulty voiding, then follow up with urology outpt at a later time. 07/24/[address] George due to upcoming valve procedure and + urine culture PAST SURGICAL HISTORY Procedure Laterality Date - APPENDECTOMY - AV FUSE, UPPR ARM, CEPHALIC 06-03-10 RIGHT UPPER ARM - LEFT HEART CATH,PERCUTANEOUS 05/27/1997 Cardiac cath, L heart AND R heart - MAMM DIAG UNI 2009 - REMOVAL SHARONA CVC W/O PUMP 09/01/10 Removal right IJ catheter - REMOVE CATARACT, INSERT LENS,EX - SIGMOIDOSCOPY FLEX DIAG 01/06/99 Sigmoidoscopy - TONSILLECTOMY HX - TOTAL ABDOM HYSTERECTOMY Hysterectomy, BERNARDA, BSO ALLERGIES Augmentin [Amoxicillin-Pot Clavulanate]; Sulfa (Sulfonamide Antibiotics); Vancomycin MEDICATIONS blood sugar diagnostic (Simplicita SoftwareUCH ULTRA TEST) test strip before meals and at bedtime. Use as instructed metOLAzone (ZAROXOLYN) 5 mg tablet Take 0.5 tablets by mouth once daily. Taking Mondays and , 30 min prior to Lasix dose Insulin Aspart (NOVOLOG) 100 unit/mL crtg Inject subcutaneously 5 units with breakfast, 8 units with lunch, and 8 units with dinner dinner insulin glargine (LANTUS SOLOSTAR U-100 INSULIN) 100 unit/mL (3 mL) inpn Inject 42 Units subcutaneously once daily. levothyroxine (SYNTHROID) 75 mcg tablet Take 1 tablet by mouth every morning on an empty stomach For Thyroid warfarin (COUMADIN) 4 mg tablet 4mg Monday, 2 mg daily rest of the week. (Might change again since was decreased when INR up on antibiotic) Managed by Dr. See amiodarone (PACERONE) 200 mg tablet Take 1 tablet by mouth three times daily. Per hospital discharge 12/21/16 OXYGEN-AIR DELIVERY SYSTEMS (HIDEAWAY PULSEDOSE OXYGEN SYST MISC) Overnight pulse Ox check 327.24 Nocturnal hypoxemia, and Daytime as needed COMPOUNDED PRESCRIPTION Paper Tape. 2 . furosemide (LASIX) 40 mg tablet Take 1 tablet by mouth twice daily. spironolactone (ALDACTONE) 25 mg tablet Take 1 tablet by mouth once daily. docusate sodium (COLACE) 100 mg capsule Take 1 capsule by mouth twice daily as needed for Constipation. atorvastatin (LIPITOR) 40 mg tablet Take 40 mg by mouth once daily. carvedilol 3.125 mg tablet Take 1 tablet by mouth twice daily with meals. Lancets (ONE TOUCH DELICA) lancets Test 4 times daily 250.02, insulin dep acetaminophen (TYLENOL EXTRA STRENGTH) 500 mg ORAL tablet Take 500 mg by mouth every 4 hours as needed. ASPIRIN 81 MG ORAL TAB Take one (1) tablet daily . FAMILY HISTORY Problem Relation Age of Onset - Heart Father - Stroke Father - cardiomyopathy [OTHER] Father - Stroke Maternal Grandmother - Heart Maternal Grandmother - Stroke Maternal Grandfather - Heart Maternal Grandfather - Stroke Paternal Grandmother - Heart Paternal Grandmother - Stroke Paternal Grandfather - Heart Paternal Grandfather - Heart Paternal Uncle Social History Substance Use Topics - Smoking status: Never Smoker - Smokeless tobacco: Never Used Comment: Parents non-smokers. - Alcohol use No PHYSICAL EXAM BP 122/64 Pulse 64 Temp 36.7 ?C (98.1 ?F) (Temporal Artery) Resp 16 Wt 92.1 kg (203 lb) SpO2 92% BMI 32.77 kg/m? General Appearance: well appearing, in no acute distress, alert Skin: Skin color, texture, turgor normal for age; except Left toes: + increased edema comparatively to the right ederythematous, mild odor noted,. Fungal infection noted in the skin folds Head: normocephalic, atraumatic Eyes: conjunctiva pink and moist, no icterus, sclera white, non-injected Lungs: Lungs clear mildly diminished to auscultation. No wheezing, rhonchi, rales Heart: RRR without murmur, gallop, or rubs. No ectopy Bilateral Lower Extremities: Pulses: 2+, Edema: L>R non-pitting DTAP,TDAP,TD(1 - Tdap) due on 07/13/2011 BONE DENSITY due on 2013 URINE ALBUMIN CREATININE RATIO due on 01/03/2015 HBA1C due on 10/24/2016 MAMMOGRAM due on 08/30/2017 DILATED RETINAL EXAM due on 12/14/2017 DIABETIC FOOT EXAM due on 03/13/2018 LDL due on 08/17/2018 COLORECTAL CANCER SCREENING,SEE MODIFIER due on 07/24/2023 ADULT PREVNAR-13 Completed INFLUENZA Completed HEPATITIS C SCREENING Completed PNEUMOVAX AGE 65 AND OVER WITH 5YR LOOKBACK Completed ASSESSMENT/PLAN: 1. Congestive heart failure, NYHA class 3, unspecified congestive heart failure type (HCC) - ICD9: 428.0, ICD10: I50.9 (primary diagnosis) - Stable - Continue current medications - Follow up with PCP and as scheduled 2. CKD (chronic kidney disease) stage 4, GFR 15-29 ml/min (HCC) - ICD9: 585.4, ICD10: N18.4 - BMP completed today at [facility] 3. Hypothyroidism due to medication - ICD9: 244.8, E980.5, ICD10: E03.2 - Instructed patient on importance of taking on an empty stomach either first thing in the morning or at bedtime. - check TSH today - Follow up in 3 months 4. Type 2 diabetes mellitus with other circulatory complication, with long-term current use of insulin (HCC) - ICD9: 250.70, V58.67, ICD10: E11.59, Z79.4 - Control to be determined by laboratory studies - Continue current medications - Check HgA1C, Urine for albumin/creatinine ratio and BMP - Follow up in 3 months, sooner should any other issues arise. 5. Arthralgia, unspecified joint - ICD9: 719.40, ICD10: M25.50 - Patient reports hx of rheumatoid arthritis? No obvious exam findings to suggest RA, will check labs - RHEUMATOID FACTOR BL - Recommend OTC Tylenol Arthritis 6. Skin infection - ICD9: 686.9, ICD10: L08.9 - Begin treatment with Cephalaxin (Keflex) - No lymphangetic streaking, this was defined for patient to watch for and to seek medical care immediately if appears - Follow up for recheck in 3-5 days if no symptom improvement 7. Fungal skin infection - ICD9: 111.9, ICD10: B36.9 - Nystatin powder to skin folds of left foot Ron Macias APRN.MONA Prescription instructions reviewed with patient as applicable. Potential red flag symptoms discussed with the patient. Reviewed appropriate action plan to take if red flag symptoms occur. Patient agreeable to treatment plan. Ron Macias APRN.CNP 10/03/2017 1:48 PM Signed Okay to take Tylenol Arthritis for aches/pains. Referring Provider: SELF [[id number]] Allergies As of Date: 10/03/2017 Noted Allergy Reaction AUGMENTIN (AMOXICILLIN-POT CLAVUL*2013 2 - Rash SULFA (SULFONAMIDE ANTIBIOTICS) 01/10/2005 4 - Hives VANCOMYCIN 08/26/2013 10 - Anaphylaxis Comments: Per pharmacist. Patient tolerating PO Vancomycin. on 01/07 pt in [facility] and had ld syndrome rxn to [facility]. Date Reviewed: 10/03/2017 Reviewed by: Divya Ramirez Ma - Fully Assessed Reason for Visit: Recheck [92] Cmt: [facility] Hosp follow up CHF, pt states fatigue, not feeling good Reason For Visit History Recorded Primary Visit Diagnosis:Congestive heart failure, NYHA class 3, unspecified congestive heart failure type ([facility]) [I50.9] Other Visit Diagnoses:CKD (chronic kidney disease) stage 4, GFR 15-29 ml/min ([facility]) [N18.4] Hypothyroidism due to medication [E03.2] Type 2 diabetes mellitus with other circulatory complication, with long-term current use of insulin ([facility]) [E11.59, Z79.4] Arthralgia, unspecified joint [M25.50] Skin infection [L08.9] Fungal skin infection [B36.9] Order(s):metOLAzone (ZAROXOLYN) 5 mg tabletTake 5mg Monday, Monday and MondayDisp: Rfl: RHEUMATOID FACTOR BL [SQRF] Order #: [id number] FUTURE nystatin (MYCOSTATIN) powderApply 1 application to affected area three times daily.Disp: 60 gRfl: 0 cephALEXin (KEFLEX) 500 mg capsuleTake 1 capsule by mouth twice daily for 7 days.Disp: 14 capsuleRfl: 0 Prescriptions as of 10/03/2017 Sig: METOLAZONE 5 MG TABLET Take 5mg Monday, Monday an* NYSTATIN 100,000 UNIT/GRAM TO* Apply 1 application to affect* CEPHALEXIN 500 MG CAPSULE Take 1 capsule by mouth twice* BLOOD SUGAR DIAGNOSTIC STRIPS before meals and at bedtime. * INSULIN ASPART U-100 100 UNI* Inject subcutaneously 5 units* INSULIN GLARGINE (U-100) 100 * Inject 42 Units subcutaneousl* LEVOTHYROXINE 75 MCG TABLET Take 1 tablet by mouth every * WARFARIN 4 MG TABLET 4mg Monday, 2 mg daily rest o* AMIODARONE 200 MG TABLET Take 1 tablet by mouth three * HIDEAWAY PULSEDOSE OXYGEN SYS* Overnight pulse Ox check 327.* COMPOUNDED PRESCRIPTION Paper Tape. 2 . FUROSEMIDE 40 MG TABLET Take 1 tablet by mouth twice * SPIRONOLACTONE 25 MG TABLET Take 1 tablet by mouth once d* DOCUSATE SODIUM 100 MG CAPSULE Take 1 capsule by mouth twice* ATORVASTATIN 40 MG TABLET Take 40 mg by mouth once fernando* CARVEDILOL 3.125 MG TABLET Take 1 tablet by mouth twice * * LANCETS Test 4 times daily 250.02, in* * ACETAMINOPHEN 500 MG TABLET Take 500 mg by mouth every 4 * * ASPIRIN 81 MG TABLET Take one (1) tablet daily . Problem List As Of Date 10/03/2017 Noted Resolved Other and unspecified hyperlipidemia [E78.5] Priority: J More... Non morbid obesity due to excess calories [E66.* Priority: K More... More... More... Paroxysmal ventricular tachycardia [I47.2] INVALID FOR* Priority: D More... EDEMA [R60.9] INVALID FOR* Venous (peripheral) insufficiency [I87.2] INVALID FOR* More... Other malaise and fatigue [R53.81, R53.83] INVALID FOR*11/29/2010 Cellulitis of left leg [L03.116] INVALID FOR*02/16/2017 More... More... Dialysis patient [Z99.2] INVALID FOR*04/18/2013 More... CKD (chronic kidney disease) stage 4, GFR 15-29* Priority: E More... Varicose veins of lower extremities with ulcer *INVALID FOR* Vitamin D deficiency [E55.9] INVALID FOR* More... Secondary hyperparathyroidism [N25.81] INVALID FOR* CAD (coronary artery disease), [place] coronary *INVALID FOR* Priority: F More... More... Torsades de pointes (HCC) [I47.2] INVALID FOR*08/21/2017 Priority: B More... Aortic stenosis [I35.0] INVALID FOR* Priority: B More... Mitral stenosis [I05.0] INVALID FOR* Priority: D More... More... More... More... More... On home O2 [Z99.81] INVALID FOR* Priority: K More... Elevated bilirubin [R17] INVALID FOR*03/23/2013 More... More... More... PVD (peripheral vascular disease) [I73.9] INVALID FOR* Priority: K More... More... More... More... Anemia [D64.9] INVALID FOR* Priority: B More... Bursitis of left shoulder [M75.52] INVALID FOR*02/16/2017 Urinary incontinence [R32] INVALID FOR* Priority: D More... More... Pressure ulcer, other site(707.09) [L89.899] INVALID FOR*02/16/2017 Priority: L More... More... More... Implantable cardioverter-defibrillator (ICD) in*INVALID FOR* More... More... DVT prophylaxis [VWF9290] INVALID FOR* More... Thrombocytopenia (HCC) [D69.6] INVALID FOR*08/21/2017 More... More... Constipation [K59.00] INVALID FOR* Anticoagulated on Coumadin [Z51.81, Z79.01] INVALID FOR*10/11/2013 Severe aortic stenosis [I35.0] INVALID FOR*01/19/2017 Priority: A More... CHF (congestive heart failure), NYHA class III *INVALID FOR* Priority: B More... More... C. difficile diarrhea [A04.72] INVALID FOR*10/11/2013 More... Gout, arthritis [M10.9] INVALID FOR* More... Leukocytosis [D72.829] INVALID FOR*02/16/2017 Priority: B More... 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 Gait instability [R26.81] INVALID FOR* More... PAF (paroxysmal atrial fibrillation) (HCC) [I48*INVALID FOR* Diabetes mellitus (HCC) [E11.9] INVALID FOR* Other instructions from your clinician: Okay to take Tylenol Arthritis for aches/pains. Prescriptions ordered this encounter Disp Refills Start End METOLAZONE 5 MG TABLET 10/03/2017 Class: Med Update Sig: Take 5mg Monday, Monday and Monday NYSTATIN 100,000 UNIT/GRAM TOPICAL P* 60 g 0 10/03/2017 Route: TOPICAL Sig: Apply 1 application to affected area three times daily. CEPHALEXIN 500 MG CAPSULE 14 c* 0 10/03/2017 10/10/2017 Route: ORAL Sig: Take 1 capsule by mouth twice daily for 7 days. Medications Discontinued During This Encounter metOLAzone (ZAROXOLYN) 5 mg tablet 09/07/2017 10/03/2017 Class: Med Update Route: ORAL Sig: Take 0.5 tablets by mouth once daily. Taking Mondays and , 30 min prior to Lasix dose Disc: Reason for discontinue is not on file. Encounter Status:Closed by RON MACIAS CNP on 10/03/17 PROGRESS Observed: 10/03/2017 Status: COMPLETED Source: [place] 12:51 PM [facility] [place] [facility] HNO ID: [id number] Author: Ron Macias Service: (none) Author Type: Nurse Practitioner Type: Progress Notes Filed: 10/03/2017 3:58 PM Note Text: CC: No chief complaint on file. RACHEL Ho is a 67 year old female who presents today with [id number] for [facility] follow up from 09/17 to 09/20/17. Patient presented to the ER on 09/17 for complaints of chest pain and worsening SOB. Patient was found to have acute on chronic systolic CHF. She was put on a Lasix drip until adequately diuresed. Cardiology was consulted during hospital admission who recommended she increase her Metolazone dose to 5mg Mon, Mon, and Mon. Patient was discharged home on 08/3017. Since returning home patient reports feeling tired and weak, with complaints of bone pain, an isolated episode of the sweats last evening and would like her left foot/toes looked at after patient's visiting nurse was in today. Patient denies any association of her episodic sweats to hypoglycemia, she did not check her blood glucose at the time but indicated that she knows her symptoms. Patient report that her left foot/toes are noticeably red and swollen for the past couple of days. Patient would also like a SED rate checked due to her bone pain. She apologized that she doesn't like to complain but she wants to get to the bottom of this! REVIEW OF SYSTEMS General: no fevers, no night sweats, no recurrent infections, no change in appetite, no significant changes in weight and See HPI HEENT: no frequent or significant headaches, no changes in hearing, no visual changes, no nose bleeds, no sinus or nasal problems Respiratory: no cough, no wheezing, no hemoptysis Cardiovascular: no chest pain, no chest pressure, no palpitations and Positive for: chronic swelling GI: No nausea, vomiting, or diarrhea Skin: See HPI Neurologic: No headache, numbness, tingling, neck stiffness, tremor, vertigo, dizziness, memory loss, syncope., See HPI PAST MEDICAL HISTORY Diagnosis Date - Acute on chronic combined systolic and diastolic congestive heart failure (HCC) 03/20/2013 NICM by outside echo EF 35%, stage II diastolic dysfunction 03/19 RHC: CI by Gudelia 2.75, SVR 1129, PA 47/18, wedge 22 On admission 06/2013, clinically euvolaemic -not on ACEi/ARB currently with hx of renal dysfunction and severe -continue carvedilol -ICD in situ - Interrogate ICD to determine if decompensation is due to underlying arrhythmia (h/o VT/AF). Will need to call on Monday morning. - Decrease coreg to 3.125 mg BID. Attempted Hydralazine but patient did not tolerate due to hypotension on 07/06. - Slight bump in Cr 07/07 so decrease Lasix to 40 mg BID. Will continue Aldactone but will need to monitor CrCl. -Will need follow up labs- arranged for at [facility] - Anemia 05/15/2013 Chronic anemia of unclear etiology. Received 2 units PRBC transfusion in April at OSH. Previous iron studies in our system suggestive of AoCD. Reports Colonoscopy/EGD ~ 2 years ago which did not show any major abnormalities. Presents with severe anemia in setting of supratherapeutic INR this admission. Denies BRBPR/melena but may have bleeding AVMs in the setting of severe . Also in setting of thrombocytopenia. Concern for DIC - fibrinogen negative -Received 6u PRBC since admission, stools melanotic Plan: - Monitor H/H, monitor coags/plts, check hemolysis labs as add-ons insufficient yesterday - NPO for possible EGD/Cscope today-> revealed polyps but bowel prep was inadequate, plan for capsule study 07/24/2013, NPO. ->capsule study neg for bleed. Pt needs elective colonoscopy as out pt to remove polyps. Recheck CBC next Monday. August 02. Fax results to DR George. - Aortic stenosis 03/20/2013 Progressive SOB on exertion, heart failure symptoms over the past 1 week preceding admission 07/05/2013. Known to have severe calcific tri-leaflet aortic valve stenosis. Denies chest pain, syncope, pre syncope. Echo: ALEX 0.81cm2, dimensionless index 0.23, pk/mn gradients 62/35 mmHg on 07/08/2013 Plan: - Planned for TF TAVR on 07/23/2013 - possibly delayed given likely GIB - Recently postponed due to UTI - will recheck UA and urine culture. Now postponed due to anemia. 07/26/2013 DC to SNF and return for TAVR at a later date. - Aortic valve disorders - Atrial fibrillation (HCC) - Atrial fibrillation (HCC) 04/02/2005 Currently NSR Plan: - Supratherapeutic INR on presentation, holding Warfarin - holding heparin given GIB and risks>benefits - on carvedilol - ICD in place - Atrial fibrillation (HCC) 04/02/2005 H/o pAF on coumadin and amiodarone Warfarin was stopped last admission on 07/23 for severe anemia concerning for GI bleed Plan: - currently in NSR - c/w amiodarone - Monitor Hb - Back pain 03/21/2013 Right sided back, shoulder, and arm pain s/p fall 03/14 Now chronic pain. Cont PRN meds R shoulder blade tender to touch-> beside MS UTI contributing, started tx for UTI - Bursitis of left shoulder 05/15/2013 - Cellulitis of left leg 01/29/2010 [facility] ER 01/27/10 transferred to [facility] Dx: sepsis, afib, elevated INR - Chest pain, atypical 03/04/2014 Prior cath in 02/2013 had mild nonobstructive CAD. ACS possible but less likely. Already on ASA/plavix. Will cotninue. Hold on heparin gtt unless has further pain. First set of biomarkers were negative. Will continue to cycle tonight. IF positive will consider LHC today. If negative the patient is reluctant for any stress test so this will need to be considered. Other ddx such as PE or dissection less likely. No tachycardia or worsened SOB. CP resolved currently. Echo in the AM -cath 03-04 mild nonobstructive CAD; no indication for revascularization. - continued to have occ sharp chest pain ->LHC mild nonobstructive CAD best treated with medical management. Device check ruled OUT VT/VF. Echo showed Stephanie aortic valve well seated, pk/mn gradients . - Chronic anticoagulation Managed by Dr. See (cardiology; [facility]) - CKD (chronic kidney disease) stage 4, GFR 15-29 ml/min ([facility]) -On HD in 2009 for about 6-7 months, but has since improved to the point where she no longer requires it -stable Plan: - monitor renal function - avoid nephrotoxins - DM (diabetes mellitus) type II uncontrolled with renal manifestation Diabetes mellitus NIDDM - ESRD on hemodialysis ([facility]) Dr. Luo ([place]) - Failure to extubation 08/26/2013 Patient was extubated in OR after the procedure. She was noted to be agitated so she was put on CPAP with pressure of 5. She was re intubated around 1 pm for end tidal CO2 of 52. Currently on SIMV 14 FiO2 30% Peep 5 Plan Resolved Transferred to the floor 5-7 - GI bleed 08/26/2013 - Heart failure, systolic and diastolic, chronic ([facility]) 07/21/2013 NICM EF 45%, stage I diastolic dysfunction on most recent Echo 06/2013 On admission, clinically euvolemic Plan: - not currently on ACEi/ARB due to renal dysfunction - on carvedilol - continue spironolactone - hold Lasix 40mg PO BID until acute anemia addressed but will diurese with transfusions as needed - ICD in situ - Heart failure, systolic and diastolic, chronic ([facility]) 07/21/2013 NICM EF 45%, stage I diastolic dysfunction on most recent Echo 06/2013 On admission, clinically euvolemic Plan: - not currently on ACEi/ARB due to renal dysfunction - on carvedilol - continue spironolactone - hold Lasix 40mg PO BID until acute anemia addressed but will diurese with transfusions as needed - ICD in situ - Hives 07/29/2013 - Hyperlipidemia - Hypertension - Hypokalemia 03/20/2013 Monitor and replete prn to keep >4.0 - Hypomagnesemia 03/20/2013 Replete to keep >2.0 - Hypothyroidism 07/05/2013 - Leukocytosis 03/05/2014 No fever -WBC bumped up 12.55 -ordered u/a and culture-> UA suggests UTI urine cx pending, start Cipro. 03/07/2014 culture is pending, WBC decreased to 7.92 - Mechanical complication of other vascular device, implant, and graft 09/01/2010 - Morbid obesity (HCC) - Morbid obesity ([facility]) Nutrition consult - Muscular deconditioning 09/14/2013 - Non-ischemic cardiomyopathy ([facility]) Cardiomyopathy--[place] - Paroxysmal ventricular tachycardia ([facility]) 04/02/2005 H/o VT/TdP s/p ICD. S/p defibrillator firing on 03/15/13 in the context of hypokalemia. Electrically quiescent on admission 06/2013 Plan: Monitor lytes and replete prn - Peripheral vascular disease (HCC) - Pressure ulcer, other site(707.09) 07/07/2013 bilateral ischium stage II POA. Xenoderm per nursing. This was present on admission. cont wound care. Also bilateral heel pressure ulcers stage 1 poa - Rectus sheath hematoma 03/29/2013 3.8 cm rectus hematoma noted on CT scan Complaining of some fleeting nausea, no pain Monitor blood counts - Renal failure 05/07/2010 Renal status stable. Off dialysis - S/P TAVR (transcatheter aortic valve replacement) 09/14/2013 - Severe aortic stenosis 08/26/2013 S/p #26 ES TF-TAVR. Exam without murmurs of AI or progressive . Will check echo in the AM but no reason to suggest valvular malfunction. Cont ASA/plavix Echo EF 45%, Bond-Stephanie prosthetic aortic valve (size #26). The peak gradient is 30 mmHg and the mean gradient is 17 mmHg. S/P transcathetaer AVR ( Bond Stephanie # 26) with mild anterior AI (seen best in initial parasternal views. - Staphylococcal infection of skin lower sheen both, - STASIS DERMATITIS 12/26/2007 Chronic changes of both legs, no recent change per patient, Uses emollient to good effect at home, will continue - Thrombocytopenia (HCC) 07/26/2013 Anemia with thrombocytopenia that is resolving. - Thrombophlebitis arm 03/22/2013 Assessment: LUE AC PIV site from OSH now warm, red, and firm with purulent drainage -BC from OSH report MSSA -03/25 IANDD to left antecubital fossa Plan: - Continue oxacillin IV 2 gm q4 hrs - Anticipate CoPAT- (ordered placed for david catheter) - ID following - BC x2 redrawn 03/30: ID rec to keep oxacillin going for 6 weeks, will write COPAT. David placed. Will go to [facility] on Monday. - Torsades de pointes (HCC) 03/20/2013 -ICD in place received appropriate shocks on 03/14 Cont amiodarone Pacer check to ensure CP wasn't arrhythmia such as aborted VT-> device check no VT/VF - Type II or unspecified type diabetes mellitus without mention of complication, not stated as uncontrolled 01/10/2005 - Check HbA1C - Lantus and prandial lispro with SSI coverage - BS poorly controlled HD #1. Increased prandial insulin dosing and Lantus. 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 This was not quiroz induced this was [employer]. Will discuss with ID - monitor for symptoms- > no symptoms, no fever and WBC WNL. Spoke with Dr. Shay from ID who said no signs/symptoms of UTI so would not treat with ATBs, they recommended remove quiroz-> but need urology to see pt first. Curbsided urology fellow who recommended removing quiroz, consult if difficulty difficulty voiding, then follow up with urology outpt at a later time. 07/24/[address] George due to upcoming valve procedure and + urine culture PAST SURGICAL HISTORY Procedure Laterality Date - APPENDECTOMY - AV FUSE, UPPR ARM, CEPHALIC 06-03-10 RIGHT UPPER ARM - LEFT HEART CATH,PERCUTANEOUS 05/27/1997 Cardiac cath, L heart AND R heart - MAMM DIAG UNI 2009 - REMOVAL SHARONA CVC W/O PUMP 09/01/10 Removal right IJ catheter - REMOVE CATARACT, INSERT LENS,EX - SIGMOIDOSCOPY FLEX DIAG 01/06/99 Sigmoidoscopy - TONSILLECTOMY HX - TOTAL ABDOM HYSTERECTOMY Hysterectomy, BERNARDA, BSO ALLERGIES Augmentin [Amoxicillin-Pot Clavulanate]; Sulfa (Sulfonamide Antibiotics); Vancomycin MEDICATIONS blood sugar diagnostic (Simplicita SoftwareUCH ULTRA TEST) test strip before meals and at bedtime. Use as instructed metOLAzone (ZAROXOLYN) 5 mg tablet Take 0.5 tablets by mouth once daily. Taking Mondays and , 30 min prior to Lasix dose Insulin Aspart (NOVOLOG) 100 unit/mL crtg Inject subcutaneously 5 units with breakfast, 8 units with lunch, and 8 units with dinner dinner insulin glargine (LANTUS SOLOSTAR U-100 INSULIN) 100 unit/mL (3 mL) inpn Inject 42 Units subcutaneously once daily. levothyroxine (SYNTHROID) 75 mcg tablet Take 1 tablet by mouth every morning on an empty stomach For Thyroid warfarin (COUMADIN) 4 mg tablet 4mg Monday, 2 mg daily rest of the week. (Might change again since was decreased when INR up on antibiotic) Managed by Dr. See amiodarone (PACERONE) 200 mg tablet Take 1 tablet by mouth three times daily. Per hospital discharge 12/21/16 OXYGEN-AIR DELIVERY SYSTEMS (HIDEAWAY PULSEDOSE OXYGEN SYST MISC) Overnight pulse Ox check 327.24 Nocturnal hypoxemia, and Daytime as needed COMPOUNDED PRESCRIPTION Paper Tape. 2 . furosemide (LASIX) 40 mg tablet Take 1 tablet by mouth twice daily. spironolactone (ALDACTONE) 25 mg tablet Take 1 tablet by mouth once daily. docusate sodium (COLACE) 100 mg capsule Take 1 capsule by mouth twice daily as needed for Constipation. atorvastatin (LIPITOR) 40 mg tablet Take 40 mg by mouth once daily. carvedilol 3.125 mg tablet Take 1 tablet by mouth twice daily with meals. Lancets (ONE TOUCH DELICA) lancets Test 4 times daily 250.02, insulin dep acetaminophen (TYLENOL EXTRA STRENGTH) 500 mg ORAL tablet Take 500 mg by mouth every 4 hours as needed. ASPIRIN 81 MG ORAL TAB Take one (1) tablet daily . FAMILY HISTORY Problem Relation Age of Onset - Heart Father - Stroke Father - cardiomyopathy [OTHER] Father - Stroke Maternal Grandmother - Heart Maternal Grandmother - Stroke Maternal Grandfather - Heart Maternal Grandfather - Stroke Paternal Grandmother - Heart Paternal Grandmother - Stroke Paternal Grandfather - Heart Paternal Grandfather - Heart Paternal Uncle Social History Substance Use Topics - Smoking status: Never Smoker - Smokeless tobacco: Never Used Comment: Parents non-smokers. - Alcohol use No PHYSICAL EXAM BP 122/64 Pulse 64 Temp 36.7 ?C (98.1 ?F) (Temporal Artery) Resp 16 Wt 92.1 kg (203 lb) SpO2 92% BMI 32.77 kg/m? General Appearance: well appearing, in no acute distress, alert Skin: Skin color, texture, turgor normal for age; except Left toes: + increased edema comparatively to the right ederythematous, mild odor noted,. Fungal infection noted in the skin folds Head: normocephalic, atraumatic Eyes: conjunctiva pink and moist, no icterus, sclera white, non-injected Lungs: Lungs clear mildly diminished to auscultation. No wheezing, rhonchi, rales Heart: RRR without murmur, gallop, or rubs. No ectopy Bilateral Lower Extremities: Pulses: 2+, Edema: L>R non-pitting DTAP,TDAP,TD(1 - Tdap) due on 07/13/2011 BONE DENSITY due on 2013 URINE ALBUMIN CREATININE RATIO due on 01/03/2015 HBA1C due on 10/24/2016 MAMMOGRAM due on 08/30/2017 DILATED RETINAL EXAM due on 12/14/2017 DIABETIC FOOT EXAM due on 03/13/2018 LDL due on 08/17/2018 COLORECTAL CANCER SCREENING,SEE MODIFIER due on 07/24/2023 ADULT PREVNAR-13 Completed INFLUENZA Completed HEPATITIS C SCREENING Completed PNEUMOVAX AGE 65 AND OVER WITH 5YR LOOKBACK Completed ASSESSMENT/PLAN: 1. Congestive heart failure, NYHA class 3, unspecified congestive heart failure type (HCC) - ICD9: 428.0, ICD10: I50.9 (primary diagnosis) - Stable - Continue current medications - Follow up with PCP and as scheduled 2. CKD (chronic kidney disease) stage 4, GFR 15-29 ml/min (HCC) - ICD9: 585.4, ICD10: N18.4 - BMP completed today at [facility] 3. Hypothyroidism due to medication - ICD9: 244.8, E980.5, ICD10: E03.2 - Instructed patient on importance of taking on an empty stomach either first thing in the morning or at bedtime. - check TSH today - Follow up in 3 months 4. Type 2 diabetes mellitus with other circulatory complication, with long-term current use of insulin (HCC) - ICD9: 250.70, V58.67, ICD10: E11.59, Z79.4 - Control to be determined by laboratory studies - Continue current medications - Check HgA1C, Urine for albumin/creatinine ratio and BMP - Follow up in 3 months, sooner should any other issues arise. 5. Arthralgia, unspecified joint - ICD9: 719.40, ICD10: M25.50 - Patient reports hx of rheumatoid arthritis? No obvious exam findings to suggest RA, will check labs - RHEUMATOID FACTOR BL - Recommend OTC Tylenol Arthritis 6. Skin infection - ICD9: 686.9, ICD10: L08.9 - Begin treatment with Cephalaxin (Keflex) - No lymphangetic streaking, this was defined for patient to watch for and to seek medical care immediately if appears - Follow up for recheck in 3-5 days if no symptom improvement 7. Fungal skin infection - ICD9: 111.9, ICD10: B36.9 - Nystatin powder to skin folds of left foot Ron Macias APRN.MECHATRONICS ENGINEER Prescription instructions reviewed with patient as applicable. Potential red flag symptoms discussed with the patient. Reviewed appropriate action plan to take if red flag symptoms occur. Patient agreeable to treatment plan. BASIC METABOLIC Collected: 10/03/2017 Status: F Source: [place] PROFILE (BMP) 12:23 PM [facility] REPOSITORY TYPE CODE TESTS RESULT OUT OF RANGE REFERENCE UNITS LAB L501.0100 74-106 mg/dL High GLU 231 Result Comment: Glucose result greater than or equal to 200 mg/dL suggests DIABETES MELLITUS per A.D.A. criteria. Please note revised GLUCOSE reference range effective 2017. LAB L501.1000 7-18 mg/dL High BUN 83 LAB L501.1100 0.55-1.02 mg/dL High CREAT,SERUM 1.86 Result Comment: The validity of the calculated GFR AND GFRAA in patients over 70 years has not been determined. Clinical correlation is essential. LAB L501.1110 >60 mL/min Low EST GFR 29 Result Comment: Non- GFR Calc LAB L501.1115 >60 mL/min Low EST GFR - AA 35 Result Comment: GFR Calc LAB L501.1300 10-20 RATIO High BUN/CRE 44.6 LAB L501.2200 8.5-10.1 mg/dL CA Normal 9.1 LAB L501.5300 136-145 mmol/L NA Normal 136 LAB L501.5600 3.5-5.1 mmol/L K Normal 4.0 LAB L501.5900 98-107 mmol/L Low CL 96 LAB L501.6100 21.0-32.0 mmol/L High CO2 34.0 LAB L501.6200 5-15 Normal GAP 6 Performed By: #### L500.2500 #### [facility] [address] [place], [address] BASIC METABOLIC Collected: 09/29/2017 Status: F Source: [place] PROFILE (BMP) 11:13 AM [facility] REPOSITORY Order Comment: 48 TYPE CODE TESTS RESULT OUT OF RANGE REFERENCE UNITS LAB L501.0100 74-106 mg/dL High GLU 154 Result Comment: Fasting Glucose result greater than or equal to 126 mg/dL suggests DIABETES MELLITUS per A.D.A. criteria. Please note revised GLUCOSE reference range effective 2017. LAB L501.1000 7-18 mg/dL High BUN 84 LAB L501.1100 0.55-1.02 mg/dL High CREAT,SERUM 2.15 Result Comment: The validity of the calculated GFR AND GFRAA in patients over 70 years has not been determined. Clinical correlation is essential. LAB L501.1110 >60 mL/min Low EST GFR 24 LAB L501.1115 >60 mL/min Low EST GFR - AA 29 LAB L501.1300 10-20 RATIO High BUN/CRE 39.1 LAB L501.2200 8.5-10.1 mg/dL Normal CA 9.1 LAB L501.5300 136-145 mmol/L Normal NA 141 LAB L501.5600 3.5-5.1 mmol/L Normal K 3.8 LAB L501.5900 98-107 mmol/L Normal CL 99 LAB L501.6100 21.0-32.0 mmol/L Normal CO2 31.0 LAB L501.6200 5-15 Normal GAP 11 Performed By: #### L500.2500 #### [facility] [address] [place], [address] PROTHROMBIN TIME W/INR Collected: 09/29/2017 Status: F Source: [place] 11:11 AM [facility] REPOSITORY Order Comment: Comments: Standing order valid from: 09/21/17 to 09/21/18 Comments: Standing order valid from: 09/21/17 to 09/21/18 TYPE CODE TESTS RESULT OUT OF REFERENCE UNITS RANGE LAB L300.4150 11.7-14.9 SECONDS High PROTIME 40.5 LAB L300.4200 High alert INR 4.2 Result Comment: CRITICAL VALUE VERIFIED. CALLED TO [facility] 09/29/17 [address]. RESULTS READ BACK BY [facility] . Performed By: #### L300.3900 #### [facility] [address] [place], [address] PROGRESS Observed: 09/21/2017 Status: COMPLETED Source: [place] 9:38 AM [facility] REPOSITORY HNO ID: [id number] Author: Rosa Cee Service: (none) Author Type: Nurse Practitioner Type: Progress Notes Filed: 09/21/2017 10:31 AM Note Text: Subjective HPI HPI Elizabeth Ho is a 67 year old female who presents today for CC of bilateral ear plugged. This started 3 days. Has tried nothing. Symptoms are worsened by nothing. Risk factors hx of cerumen impaction. .Patient presents with: Ear Problem: bilateral ears clogged PAST MEDICAL HISTORY Diagnosis Date - Acute on chronic combined systolic and diastolic congestive heart failure (HCC) 03/20/2013 NICM by outside echo EF 35%, stage II diastolic dysfunction 03/19 RHC: CI by Gudelia 2.75, SVR 1129, PA 47/18, wedge 22 On admission 06/2013, clinically euvolaemic -not on ACEi/ARB currently with hx of renal dysfunction and severe -continue carvedilol -ICD in situ - Interrogate ICD to determine if decompensation is due to underlying arrhythmia (h/o VT/AF). Will need to call on Monday morning. - Decrease coreg to 3.125 mg BID. Attempted Hydralazine but patient did not tolerate due to hypotension on 07/06. - Slight bump in Cr 07/07 so decrease Lasix to 40 mg BID. Will continue Aldactone but will need to monitor CrCl. -Will need follow up labs- arranged for at SNF - Anemia 05/15/2013 Chronic anemia of unclear etiology. Received 2 units PRBC transfusion in April at OSH. Previous iron studies in our system suggestive of AoCD. Reports Colonoscopy/EGD ~ 2 years ago which did not show any major abnormalities. Presents with severe anemia in setting of supratherapeutic INR this admission. Denies BRBPR/melena but may have bleeding AVMs in the setting of severe . Also in setting of thrombocytopenia. Concern for DIC - fibrinogen negative -Received 6u PRBC since admission, stools melanotic Plan: - Monitor H/H, monitor coags/plts, check hemolysis labs as add-ons insufficient yesterday - NPO for possible EGD/Cscope today-> revealed polyps but bowel prep was inadequate, plan for capsule study 07/24/2013, NPO. ->capsule study neg for bleed. Pt needs elective colonoscopy as out pt to remove polyps. Recheck CBC next Monday. August 02. Fax results to DR George. - Aortic stenosis 03/20/2013 Progressive SOB on exertion, heart failure symptoms over the past 1 week preceding admission 07/05/2013. Known to have severe calcific tri-leaflet aortic valve stenosis. Denies chest pain, syncope, pre syncope. Echo: ALEX 0.81cm2, dimensionless index 0.23, pk/mn gradients 62/35 mmHg on 07/08/2013 Plan: - Planned for TF TAVR on 07/23/2013 - possibly delayed given likely GIB - Recently postponed due to UTI - will recheck UA and urine culture. Now postponed due to anemia. 07/26/2013 DC to SNF and return for TAVR at a later date. - Aortic valve disorders - Atrial fibrillation (HCC) - Atrial fibrillation (HCC) 04/02/2005 Currently NSR Plan: - Supratherapeutic INR on presentation, holding Warfarin - holding heparin given GIB and risks>benefits - on carvedilol - ICD in place - Atrial fibrillation (HCC) 04/02/2005 H/o pAF on coumadin and amiodarone Warfarin was stopped last admission on 07/23 for severe anemia concerning for GI bleed Plan: - currently in NSR - c/w amiodarone - Monitor Hb - Back pain 03/21/2013 Right sided back, shoulder, and arm pain s/p fall 03/14 Now chronic pain. Cont PRN meds R shoulder blade tender to touch-> beside MS UTI contributing, started tx for UTI - Bursitis of left shoulder 05/15/2013 - Cellulitis of left leg 01/29/2010 [facility] ER 01/27/10 transferred to [facility] Dx: sepsis, afib, elevated INR - Chest pain, atypical 03/04/2014 Prior cath in 02/2013 had mild nonobstructive CAD. ACS possible but less likely. Already on ASA/plavix. Will cotninue. Hold on heparin gtt unless has further pain. First set of biomarkers were negative. Will continue to cycle tonight. IF positive will consider LHC today. If negative the patient is reluctant for any stress test so this will need to be considered. Other ddx such as PE or dissection less likely. No tachycardia or worsened SOB. CP resolved currently. Echo in the AM -cath 03-04 mild nonobstructive CAD; no indication for revascularization. - continued to have occ sharp chest pain ->LHC mild nonobstructive CAD best treated with medical management. Device check ruled OUT VT/VF. Echo showed Stephanie aortic valve well seated, pk/mn gradients 30/17. - Chronic anticoagulation Managed by Dr. See (cardiology; [facility]) - CKD (chronic kidney disease) stage 4, GFR 15-29 ml/min ([facility]) -On HD in 2009 for about 6-7 months, but has since improved to the point where she no longer requires it -stable Plan: - monitor renal function - avoid nephrotoxins - DM (diabetes mellitus) type II uncontrolled with renal manifestation Diabetes mellitus NIDDM - ESRD on hemodialysis ([facility]) Dr. Luo ([place]) - Failure to extubation 08/26/2013 Patient was extubated in OR after the procedure. She was noted to be agitated so she was put on CPAP with pressure of 5. She was re intubated around 1 pm for end tidal CO2 of 52. Currently on SIMV 14 FiO2 30% Peep 5 Plan Resolved Transferred to the floor 5-7 - GI bleed 08/26/2013 - Heart failure, systolic and diastolic, chronic ([facility]) 07/21/2013 NICM EF 45%, stage I diastolic dysfunction on most recent Echo 06/2013 On admission, clinically euvolemic Plan: - not currently on ACEi/ARB due to renal dysfunction - on carvedilol - continue spironolactone - hold Lasix 40mg PO BID until acute anemia addressed but will diurese with transfusions as needed - ICD in situ - Heart failure, systolic and diastolic, chronic ([facility]) 07/21/2013 NICM EF 45%, stage I diastolic dysfunction on most recent Echo 06/2013 On admission, clinically euvolemic Plan: - not currently on ACEi/ARB due to renal dysfunction - on carvedilol - continue spironolactone - hold Lasix 40mg PO BID until acute anemia addressed but will diurese with transfusions as needed - ICD in situ - Hives 07/29/2013 - Hyperlipidemia - Hypertension - Hypokalemia 03/20/2013 Monitor and replete prn to keep >4.0 - Hypomagnesemia 03/20/2013 Replete to keep >2.0 - Hypothyroidism 07/05/2013 - Leukocytosis 03/05/2014 No fever -WBC bumped up 12.55 -ordered u/a and culture-> UA suggests UTI urine cx pending, start Cipro. 03/07/2014 culture is pending, WBC decreased to 7.92 - Mechanical complication of other vascular device, implant, and graft 09/01/2010 - Morbid obesity ([facility]) - Morbid obesity ([facility]) Nutrition consult - Muscular deconditioning 09/14/2013 - Non-ischemic cardiomyopathy ([facility]) Cardiomyopathy--[place] - Paroxysmal ventricular tachycardia ([facility]) 04/02/2005 H/o VT/TdP s/p ICD. S/p defibrillator firing on 03/15/13 in the context of hypokalemia. Electrically quiescent on admission 06/2013 Plan: Monitor lytes and replete prn - Peripheral vascular disease (HCC) - Pressure ulcer, other site(707.09) 07/07/2013 bilateral ischium stage II POA. Xenoderm per nursing. This was present on admission. cont wound care. Also bilateral heel pressure ulcers stage 1 poa - Rectus sheath hematoma 03/29/2013 3.8 cm rectus hematoma noted on CT scan Complaining of some fleeting nausea, no pain Monitor blood counts - Renal failure 05/07/2010 Renal status stable. Off dialysis - S/P TAVR (transcatheter aortic valve replacement) 09/14/2013 - Severe aortic stenosis 08/26/2013 S/p #26 ES TF-TAVR. Exam without murmurs of AI or progressive . Will check echo in the AM but no reason to suggest valvular malfunction. Cont ASA/plavix Echo EF 45%, Bond-Stephanie prosthetic aortic valve (size #26). The peak gradient is 30 mmHg and the mean gradient is 17 mmHg. S/P transcathetaer AVR ( Bond Stephanie # 26) with mild anterior AI (seen best in initial parasternal views. - Staphylococcal infection of skin lower sheen both, - STASIS DERMATITIS 12/26/2007 Chronic changes of both legs, no recent change per patient, Uses emollient to good effect at home, will continue - Thrombocytopenia (HCC) 07/26/2013 Anemia with thrombocytopenia that is resolving. - Thrombophlebitis arm 03/22/2013 Assessment: DARREL NOBLE PIV site from OSH now warm, red, and firm with purulent drainage -BC from OSH report MSSA -03/25 IANDD to left antecubital fossa Plan: - Continue oxacillin IV 2 gm q4 hrs - Anticipate CoPAT- (ordered placed for david catheter) - ID following - BC x2 redrawn 03/30: ID rec to keep oxacillin going for 6 weeks, will write COPAT. David placed. Will go to [facility] on Monday. - Torsades de pointes (HCC) 03/20/2013 -ICD in place received appropriate shocks on 03/14 Cont amiodarone Pacer check to ensure CP wasn't arrhythmia such as aborted VT-> device check no VT/VF - Type II or unspecified type diabetes mellitus without mention of complication, not stated as uncontrolled 01/10/2005 - Check HbA1C - Lantus and prandial lispro with SSI coverage - BS poorly controlled HD #1. Increased prandial insulin dosing and Lantus. 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 This was not quiroz induced this was REINFORCING STEEL PLACER. Will discuss with ID - monitor for symptoms- > no symptoms, no fever and WBC WNL. Spoke with Dr. Shay from ID who said no signs/symptoms of UTI so would not treat with ATBs, they recommended remove quiroz-> but need urology to see pt first. Curbsided urology fellow who recommended removing quiroz, consult if difficulty difficulty voiding, then follow up with urology outpt at a later time. 07/24/[address] George due to upcoming valve procedure and + urine culture PAST SURGICAL HISTORY Procedure Laterality Date - APPENDECTOMY - AV FUSE, UPPR ARM, CEPHALIC 06-03-10 RIGHT UPPER ARM - LEFT HEART CATH,PERCUTANEOUS 05/27/1997 Cardiac cath, L heart AND R heart - MAMM DIAG 2009 - REMOVAL SHARONA CVC W/O PUMP 09/01/10 Removal right IJ catheter - REMOVE CATARACT, INSERT LENS,EX - SIGMOIDOSCOPY FLEX DIAG 01/06/99 Sigmoidoscopy - TONSILLECTOMY HX - TOTAL ABDOM HYSTERECTOMY Hysterectomy, BERNARDA, BSO ALLERGIES Augmentin [Amoxicillin-Pot Clavulanate]; Sulfa (Sulfonamide Antibiotics); Vancomycin MEDICATIONS blood sugar diagnostic (CrowdfunderTOUCH ULTRA TEST) test strip before meals and at bedtime. Use as instructed metOLAzone (ZAROXOLYN) 5 mg tablet Take 0.5 tablets by mouth once daily. Taking Mondays and , 30 min prior to Lasix dose Insulin Aspart (NOVOLOG) 100 unit/mL crtg Inject subcutaneously 5 units with breakfast, 8 units with lunch, and 8 units with dinner dinner insulin glargine (LANTUS SOLOSTAR U-100 INSULIN) 100 unit/mL (3 mL) inpn Inject 42 Units subcutaneously once daily. levothyroxine (SYNTHROID) 75 mcg tablet Take 1 tablet by mouth every morning on an empty stomach For Thyroid warfarin (COUMADIN) 4 mg tablet 4mg Monday, 2 mg daily rest of the week. (Might change again since was decreased when INR up on antibiotic) Managed by Dr. See amiodarone (PACERONE) 200 mg tablet Take 1 tablet by mouth three times daily. Per hospital discharge 12/21/16 OXYGEN-AIR DELIVERY SYSTEMS (HIDEAWAY PULSEDOSE OXYGEN SYST MISC) Overnight pulse Ox check 327.24 Nocturnal hypoxemia, and Daytime as needed COMPOUNDED PRESCRIPTION Paper Tape. 2 . furosemide (LASIX) 40 mg tablet Take 1 tablet by mouth twice daily. spironolactone (ALDACTONE) 25 mg tablet Take 1 tablet by mouth once daily. docusate sodium (COLACE) 100 mg capsule Take 1 capsule by mouth twice daily as needed for Constipation. atorvastatin (LIPITOR) 40 mg tablet Take 40 mg by mouth once daily. carvedilol 3.125 mg tablet Take 1 tablet by mouth twice daily with meals. Lancets (ONE TOUCH DELICA) lancets Test 4 times daily 250.02, insulin dep acetaminophen (TYLENOL EXTRA STRENGTH) 500 mg ORAL tablet Take 500 mg by mouth every 4 hours as needed. ASPIRIN 81 MG ORAL TAB Take one (1) tablet daily . FAMILY HISTORY Problem Relation Age of Onset - Heart Father - Stroke Father - cardiomyopathy [OTHER] Father - Stroke Maternal Grandmother - Heart Maternal Grandmother - Stroke Maternal Grandfather - Heart Maternal Grandfather - Stroke Paternal Grandmother - Heart Paternal Grandmother - Stroke Paternal Grandfather - Heart Paternal Grandfather - Heart Paternal Uncle Social History Substance Use Topics - Smoking status: Never Smoker - Smokeless tobacco: Never Used Comment: Parents non-smokers. - Alcohol use No Review of Systems Constitutional: Negative for chills, fever and weight loss. HENT: Negative for congestion, ear pain (pressure, clogged), nosebleeds and sore throat. Respiratory: Negative for cough, shortness of breath and wheezing. Cardiovascular: Negative for chest pain. Musculoskeletal: Negative for neck pain. Objective Blood pressure 130/66, pulse 70, temperature 37.2 ?C (98.9 ?F), temperature source Tympanic, weight 92.1 kg (203 lb). Physical Exam Constitutional: She is oriented to person, place, and time and well-developed, well-nourished, and in no distress. Non-toxic appearance. She does not have a sickly appearance. No distress. HENT: Head: Normocephalic and atraumatic. Right Ear: Hearing, tympanic membrane and external ear normal. Left Ear: Hearing, tympanic membrane and external ear normal. Nose: Nose normal. Mouth/Throat: Uvula is midline, oropharynx is clear and moist and mucous membranes are normal. Bilateral cerumen impaction bilateral canals After irrigation - bilateral ears mostly clear, moderate amount of dry cerumen present. TM beyond cerumen normal. Eyes: Conjunctivae and lids are normal. Pupils are equal, round, and reactive to light. Right eye exhibits no discharge. Left eye exhibits no discharge. No scleral icterus. Neck: Trachea normal and normal range of motion. Neck supple. Cardiovascular: Normal rate, regular rhythm and normal heart sounds. Pulmonary/Chest: Effort normal and breath sounds normal. Lymphadenopathy: She has no cervical adenopathy. Neurological: She is alert and oriented to person, place, and time. Skin: No rash noted. She is not diaphoretic. ASSESSMENT/PLAN: 1. Bilateral impacted cerumen - ICD9: 380.4, ICD10: H61.23 -after lavage by nurse, bilateral ears mostly clear. patient reports relief. -discussed proper ear hygiene -follow up with primary care if symptoms persist -discussed use of over the counter Debrox Prescription instructions reviewed with patient as applicable. Patient advised if symptoms do not improve or if symptoms worsen sooner, to contact the office for further evaluation by their primary care physician. Potential red flag symptoms discussed with the patient. Reviewed appropriate action plan to take if red flag symptoms occur. Patient agreeable to treatment plan. Rosa Cee APRN.MONA CNOV Observed: 09/21/2017 Status: COMPLETED Source: [place] 9:30 AM [facility] REPOSITORY Office Visit (WSTR) ELIZABETH HO ([id number]) 1950 F Date Time Provider Department 09/21/17 9:30 AM ROSA CEE (MONA) [facility] During your visit today, we recorded the following information about you: Temperature Pulse Blood pressure Weight 98.9 degrees 70/minute 130/66 92.1 kg Rosa Cee APRN.CNP 09/21/2017 10:31 AM Signed Subjective HPI HPI Elizabeth oH is a 67 year old female who presents today for CC of bilateral ear plugged. This started 3 days. Has tried nothing. Symptoms are worsened by nothing. Risk factors hx of cerumen impaction. .Patient presents with: Ear Problem: bilateral ears clogged PAST MEDICAL HISTORY Diagnosis Date - Acute on chronic combined systolic and diastolic congestive heart failure (HCC) 03/20/2013 NICM by outside echo EF 35%, stage II diastolic dysfunction 03/19 RHC: CI by Gudelia 2.75, SVR 1129, PA 47/18, wedge 22 On admission 06/2013, clinically euvolaemic -not on ACEi/ARB currently with hx of renal dysfunction and severe -continue carvedilol -ICD in situ - Interrogate ICD to determine if decompensation is due to underlying arrhythmia (h/o VT/AF). Will need to call on Monday morning. - Decrease coreg to 3.125 mg BID. Attempted Hydralazine but patient did not tolerate due to hypotension on 07/06. - Slight bump in Cr 07/07 so decrease Lasix to 40 mg BID. Will continue Aldactone but will need to monitor CrCl. -Will need follow up labs- arranged for at [facility] - Anemia 05/15/2013 Chronic anemia of unclear etiology. Received 2 units PRBC transfusion in April at OSH. Previous iron studies in our system suggestive of AoCD. Reports Colonoscopy/EGD ~ 2 years ago which did not show any major abnormalities. Presents with severe anemia in setting of supratherapeutic INR this admission. Denies BRBPR/melena but may have bleeding AVMs in the setting of severe . Also in setting of thrombocytopenia. Concern for DIC - fibrinogen negative -Received 6u PRBC since admission, stools melanotic Plan: - Monitor H/H, monitor coags/plts, check hemolysis labs as add-ons insufficient yesterday - NPO for possible EGD/Cscope today-> revealed polyps but bowel prep was inadequate, plan for capsule study 07/24/2013, NPO. ->capsule study neg for bleed. Pt needs elective colonoscopy as out pt to remove polyps. Recheck CBC next Monday. August 02. Fax results to DR George. - Aortic stenosis 03/20/2013 Progressive SOB on exertion, heart failure symptoms over the past 1 week preceding admission 07/05/2013. Known to have severe calcific tri-leaflet aortic valve stenosis. Denies chest pain, syncope, pre syncope. Echo: ALEX 0.81cm2, dimensionless index 0.23, pk/mn gradients 62/35 mmHg on 07/08/2013 Plan: - Planned for TF TAVR on 07/23/2013 - possibly delayed given likely GIB - Recently postponed due to UTI - will recheck UA and urine culture. Now postponed due to anemia. 07/26/2013 DC to SNF and return for TAVR at a later date. - Aortic valve disorders - Atrial fibrillation (HCC) - Atrial fibrillation (HCC) 04/02/2005 Currently NSR Plan: - Supratherapeutic INR on presentation, holding Warfarin - holding heparin given GIB and risks>benefits - on carvedilol - ICD in place - Atrial fibrillation (HCC) 04/02/2005 H/o pAF on coumadin and amiodarone Warfarin was stopped last admission on 07/23 for severe anemia concerning for GI bleed Plan: - currently in NSR - c/w amiodarone - Monitor Hb - Back pain 03/21/2013 Right sided back, shoulder, and arm pain s/p fall 03/14 Now chronic pain. Cont PRN meds R shoulder blade tender to touch-> beside MS UTI contributing, started tx for UTI - Bursitis of left shoulder 05/15/2013 - Cellulitis of left leg 01/29/2010 [facility] ER 01/27/10 transferred to [facility] Dx: sepsis, afib, elevated INR - Chest pain, atypical 03/04/2014 Prior cath in 02/2013 had mild nonobstructive CAD. ACS possible but less likely. Already on ASA/plavix. Will cotninue. Hold on heparin gtt unless has further pain. First set of biomarkers were negative. Will continue to cycle tonight. IF positive will consider LHC today. If negative the patient is reluctant for any stress test so this will need to be considered. Other ddx such as PE or dissection less likely. No tachycardia or worsened SOB. CP resolved currently. Echo in the AM -cath 03-04 mild nonobstructive CAD; no indication for revascularization. -continued to have occ sharp chest pain ->LHC mild nonobstructive CAD best treated with medical management. Device check ruled OUT VT/VF. Echo showed Stephanei aortic valve well seated, pk/mn gradients . - Chronic anticoagulation Managed by Dr. See (cardiology; [facility]) - CKD (chronic kidney disease) stage 4, GFR 15-29 ml/min ([facility]) -On HD in 2009 for about 6-7 months, but has since improved to the point where she no longer requires it -stable Plan: - monitor renal function - avoid nephrotoxins - DM (diabetes mellitus) type II uncontrolled with renal manifestation Diabetes mellitus NIDDM - ESRD on hemodialysis ([facility]) Dr. Luo ([place]) - Failure to extubation 08/26/2013 Patient was extubated in OR after the procedure. She was noted to be agitated so she was put on CPAP with pressure of 5. She was re intubated around 1 pm for end tidal CO2 of 52. Currently on SIMV 14 FiO2 30% Peep 5 Plan Resolved Transferred to the floor 5-7 - GI bleed 08/26/2013 - Heart failure, systolic and diastolic, chronic ([facility]) 07/21/2013 NICM EF 45%, stage I diastolic dysfunction on most recent Echo 06/2013 On admission, clinically euvolemic Plan: - not currently on ACEi/ARB due to renal dysfunction - on carvedilol - continue spironolactone - hold Lasix 40mg PO BID until acute anemia addressed but will diurese with transfusions as needed - ICD in situ - Heart failure, systolic and diastolic, chronic ([facility]) 07/21/2013 NICM EF 45%, stage I diastolic dysfunction on most recent Echo 06/2013 On admission, clinically euvolemic Plan: - not currently on ACEi/ARB due to renal dysfunction - on carvedilol - continue spironolactone - hold Lasix 40mg PO BID until acute anemia addressed but will diurese with transfusions as needed - ICD in situ - Hives 07/29/2013 - Hyperlipidemia - Hypertension - Hypokalemia 03/20/2013 Monitor and replete prn to keep >4.0 - Hypomagnesemia 03/20/2013 Replete to keep >2.0 - Hypothyroidism 07/05/2013 - Leukocytosis 03/05/2014 No fever -WBC bumped up 12.55 -ordered u/a and culture-> UA suggests UTI urine cx pending, start Cipro. 03/07/2014 culture is pending, WBC decreased to 7.92 - Mechanical complication of other vascular device, implant, and graft 09/01/2010 - Morbid obesity (HCC) - Morbid obesity ([facility]) Nutrition consult - Muscular deconditioning 09/14/2013 - Non-ischemic cardiomyopathy ([facility]) Cardiomyopathy--[place] - Paroxysmal ventricular tachycardia ([facility]) 04/02/2005 H/o VT/TdP s/p ICD. S/p defibrillator firing on 03/15/13 in the context of hypokalemia. Electrically quiescent on admission 06/2013 Plan: Monitor lytes and replete prn - Peripheral vascular disease (HCC) - Pressure ulcer, other site(707.09) 07/07/2013 bilateral ischium stage II POA. Xenoderm per nursing. This was present on admission. cont wound care. Also bilateral heel pressure ulcers stage 1 poa - Rectus sheath hematoma 03/29/2013 3.8 cm rectus hematoma noted on CT scan Complaining of some fleeting nausea, no pain Monitor blood counts - Renal failure 05/07/2010 Renal status stable. Off dialysis - S/P TAVR (transcatheter aortic valve replacement) 09/14/2013 - Severe aortic stenosis 08/26/2013 S/p #26 ES TF-TAVR. Exam without murmurs of AI or progressive . Will check echo in the AM but no reason to suggest valvular malfunction. Cont ASA/plavix Echo EF 45%, Bond-Stephanie prosthetic aortic valve (size #26). The peak gradient is 30 mmHg and the mean gradient is 17 mmHg. S/P transcathetaer AVR ( Bond Stephanie # 26) with mild anterior AI (seen best in initial parasternal views. - Staphylococcal infection of skin lower sheen both, - STASIS DERMATITIS 12/26/2007 Chronic changes of both legs, no recent change per patient, Uses emollient to good effect at home, will continue - Thrombocytopenia (HCC) 07/26/2013 Anemia with thrombocytopenia that is resolving. - Thrombophlebitis arm 03/22/2013 Assessment: LUE AC PIV site from OSH now warm, red, and firm with purulent drainage -BC from OSH report MSSA -03/25 IANDD to left antecubital fossa Plan: - Continue oxacillin IV 2 gm q4 hrs - Anticipate CoPAT- (ordered placed for david catheter) - ID following - BC x2 redrawn 03/30: ID rec to keep oxacillin going for 6 weeks, will write COPAT. David placed. Will go to [facility] on Monday. - Torsades de pointes (HCC) 03/20/2013 -ICD in place received appropriate shocks on 03/14 Cont amiodarone Pacer check to ensure CP wasn't arrhythmia such as aborted VT-> device check no VT/VF - Type II or unspecified type diabetes mellitus without mention of complication, not stated as uncontrolled 01/10/2005 - Check HbA1C - Lantus and prandial lispro with SSI coverage - BS poorly controlled HD #1. Increased prandial insulin dosing and Lantus. 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 This was not quiroz induced this was REINFORCING STEEL PLACER. Will discuss with ID - monitor for symptoms- > no symptoms, no fever and WBC WNL. Spoke with Dr. Shay from ID who said no signs/symptoms of UTI so would not treat with ATBs, they recommended remove quiroz-> but need urology to see pt first. Curbsided urology fellow who recommended removing quiroz, consult if difficulty difficulty voiding, then follow up with urology outpt at a later time. 07/24/[address] George due to upcoming valve procedure and + urine culture PAST SURGICAL HISTORY Procedure Laterality Date - APPENDECTOMY - AV FUSE, UPPR ARM, CEPHALIC 06-03-10 RIGHT UPPER ARM - LEFT HEART CATH,PERCUTANEOUS 05/27/1997 Cardiac cath, L heart AND R heart - MAMM DIAG UNI 2009 - REMOVAL SHARONA CVC W/O PUMP 09/01/10 Removal right IJ catheter - REMOVE CATARACT, INSERT LENS,EX - SIGMOIDOSCOPY FLEX DIAG 01/06/99 Sigmoidoscopy - TONSILLECTOMY HX - TOTAL ABDOM HYSTERECTOMY Hysterectomy, BERNARDA, BSO ALLERGIES Augmentin [Amoxicillin-Pot Clavulanate]; Sulfa (Sulfonamide Antibiotics); Vancomycin MEDICATIONS blood sugar diagnostic (Simplicita SoftwareUCH ULTRA TEST) test strip before meals and at bedtime. Use as instructed metOLAzone (ZAROXOLYN) 5 mg tablet Take 0.5 tablets by mouth once daily. Taking Mondays and , 30 min prior to Lasix dose Insulin Aspart (NOVOLOG) 100 unit/mL crtg Inject subcutaneously 5 units with breakfast, 8 units with lunch, and 8 units with dinner dinner insulin glargine (LANTUS SOLOSTAR U-100 INSULIN) 100 unit/mL (3 mL) inpn Inject 42 Units subcutaneously once daily. levothyroxine (SYNTHROID) 75 mcg tablet Take 1 tablet by mouth every morning on an empty stomach For Thyroid warfarin (COUMADIN) 4 mg tablet 4mg Monday, 2 mg daily rest of the week. (Might change again since was decreased when INR up on antibiotic) Managed by Dr. See amiodarone (PACERONE) 200 mg tablet Take 1 tablet by mouth three times daily. Per hospital discharge 12/21/16 OXYGEN-AIR DELIVERY SYSTEMS (HIDEAWAY PULSEDOSE OXYGEN SYST MISC) Overnight pulse Ox check 327.24 Nocturnal hypoxemia, and Daytime as needed COMPOUNDED PRESCRIPTION Paper Tape. 2 . furosemide (LASIX) 40 mg tablet Take 1 tablet by mouth twice daily. spironolactone (ALDACTONE) 25 mg tablet Take 1 tablet by mouth once daily. docusate sodium (COLACE) 100 mg capsule Take 1 capsule by mouth twice daily as needed for Constipation. atorvastatin (LIPITOR) 40 mg tablet Take 40 mg by mouth once daily. carvedilol 3.125 mg tablet Take 1 tablet by mouth twice daily with meals. Lancets (ONE TOUCH DELICA) lancets Test 4 times daily 250.02, insulin dep acetaminophen (TYLENOL EXTRA STRENGTH) 500 mg ORAL tablet Take 500 mg by mouth every 4 hours as needed. ASPIRIN 81 MG ORAL TAB Take one (1) tablet daily . FAMILY HISTORY Problem Relation Age of Onset - Heart Father - Stroke Father - cardiomyopathy [OTHER] Father - Stroke Maternal Grandmother - Heart Maternal Grandmother - Stroke Maternal Grandfather - Heart Maternal Grandfather - Stroke Paternal Grandmother - Heart Paternal Grandmother - Stroke Paternal Grandfather - Heart Paternal Grandfather - Heart Paternal Uncle Social History Substance Use Topics - Smoking status: Never Smoker - Smokeless tobacco: Never Used Comment: Parents non-smokers. - Alcohol use No Review of Systems Constitutional: Negative for chills, fever and weight loss. HENT: Negative for congestion, ear pain (pressure, clogged), nosebleeds and sore throat. Respiratory: Negative for cough, shortness of breath and wheezing. Cardiovascular: Negative for chest pain. Musculoskeletal: Negative for neck pain. Objective Blood pressure 130/66, pulse 70, temperature 37.2 ?C (98.9 ?F), temperature source Tympanic, weight 92.1 kg (203 lb). Physical Exam Constitutional: She is oriented to person, place, and time and well-developed, well-nourished, and in no distress. Non-toxic appearance. She does not have a sickly appearance. No distress. HENT: Head: Normocephalic and atraumatic. Right Ear: Hearing, tympanic membrane and external ear normal. Left Ear: Hearing, tympanic membrane and external ear normal. Nose: Nose normal. Mouth/Throat: Uvula is midline, oropharynx is clear and moist and mucous membranes are normal. Bilateral cerumen impaction bilateral canals After irrigation - bilateral ears mostly clear, moderate amount of dry cerumen present. TM beyond cerumen normal. Eyes: Conjunctivae and lids are normal. Pupils are equal, round, and reactive to light. Right eye exhibits no discharge. Left eye exhibits no discharge. No scleral icterus. Neck: Trachea normal and normal range of motion. Neck supple. Cardiovascular: Normal rate, regular rhythm and normal heart sounds. Pulmonary/Chest: Effort normal and breath sounds normal. Lymphadenopathy: She has no cervical adenopathy. Neurological: She is alert and oriented to person, place, and time. Skin: No rash noted. She is not diaphoretic. ASSESSMENT/PLAN: 1. Bilateral impacted cerumen - ICD9: 380.4, ICD10: H61.23 -after lavage by nurse, bilateral ears mostly clear. patient reports relief. -discussed proper ear hygiene -follow up with primary care if symptoms persist -discussed use of over the counter Debrox Prescription instructions reviewed with patient as applicable. Patient advised if symptoms do not improve or if symptoms worsen sooner, to contact the office for further evaluation by their primary care physician. Potential red flag symptoms discussed with the patient. Reviewed appropriate action plan to take if red flag symptoms occur. Patient agreeable to treatment plan. TATYANA Gongora APRN.CNP 09/21/2017 10:09 AM Signed ASSESSMENT/PLAN: 1. Bilateral impacted cerumen - ICD9: 380.4, ICD10: H61.23 -discussed proper ear hygiene -follow up with primary care if symptoms persist -discussed use of over the counter Debrox Referring Provider: SELF [[id number]] Allergies As of Date: 09/21/2017 Noted Allergy Reaction AUGMENTIN (AMOXICILLIN-POT CLAVUL*2013 2 - Rash SULFA (SULFONAMIDE ANTIBIOTICS) 01/10/2005 4 - Hives VANCOMYCIN 08/26/2013 10 - Anaphylaxis Comments: Per pharmacist. Patient tolerating PO Vancomycin. on 01/07 pt in [facility] and had ld syndrome rxn to [facility]. Date Reviewed: 09/21/2017 Reviewed by: Rosa (Mona) - Fully Assessed Reason for Visit: Ear Problem [38] Cmt: bilateral ears clogged Primary Visit Diagnosis:Bilateral impacted cerumen [H61.23] Prescriptions as of 09/21/2017 Sig: BLOOD SUGAR DIAGNOSTIC STRIPS before meals and at bedtime. * METOLAZONE 5 MG TABLET Take 0.5 tablets by mouth onc* INSULIN ASPART U-100 100 UNI* Inject subcutaneously 5 units* INSULIN GLARGINE (U-100) 100 * Inject 42 Units subcutaneousl* LEVOTHYROXINE 75 MCG TABLET Take 1 tablet by mouth every * WARFARIN 4 MG TABLET 4mg Monday, 2 mg daily rest o* AMIODARONE 200 MG TABLET Take 1 tablet by mouth three * HIDEAWAY PULSEDOSE OXYGEN SYS* Overnight pulse Ox check 327.* COMPOUNDED PRESCRIPTION Paper Tape. 2 . FUROSEMIDE 40 MG TABLET Take 1 tablet by mouth twice * SPIRONOLACTONE 25 MG TABLET Take 1 tablet by mouth once d* DOCUSATE SODIUM 100 MG CAPSULE Take 1 capsule by mouth twice* ATORVASTATIN 40 MG TABLET Take 40 mg by mouth once fernando* CARVEDILOL 3.125 MG TABLET Take 1 tablet by mouth twice * * LANCETS Test 4 times daily 250.02, in* * ACETAMINOPHEN 500 MG TABLET Take 500 mg by mouth every 4 * * ASPIRIN 81 MG TABLET Take one (1) tablet daily . Problem List As Of Date 09/21/2017 Noted Resolved Other and unspecified hyperlipidemia [E78.5] Priority: J More... Non morbid obesity due to excess calories [E66.* Priority: K More... More... More... Paroxysmal ventricular tachycardia [I47.2] INVALID FOR* Priority: D More... EDEMA [R60.9] INVALID FOR* Venous (peripheral) insufficiency [I87.2] INVALID FOR* More... Other malaise and fatigue [R53.81, R53.83] INVALID FOR*11/29/2010 Cellulitis of left leg [L03.116] INVALID FOR*02/16/2017 More... More... Dialysis patient [Z99.2] INVALID FOR*04/18/2013 More... CKD (chronic kidney disease) stage 4, GFR 15-29* Priority: E More... Varicose veins of lower extremities with ulcer *INVALID FOR* Vitamin D deficiency [E55.9] INVALID FOR* More... Secondary hyperparathyroidism [N25.81] INVALID FOR* CAD (coronary artery disease), [place] coronary *INVALID FOR* Priority: F More... More... Torsades de pointes (HCC) [I47.2] INVALID FOR*08/21/2017 Priority: B More... Aortic stenosis [I35.0] INVALID FOR* Priority: B More... Mitral stenosis [I05.0] INVALID FOR* Priority: D More... More... More... More... More... On home O2 [Z99.81] INVALID FOR* Priority: K More... Elevated bilirubin [R17] INVALID FOR*03/23/2013 More... More... More... PVD (peripheral vascular disease) [I73.9] INVALID FOR* Priority: K More... More... More... More... Anemia [D64.9] INVALID FOR* Priority: B More... Bursitis of left shoulder [M75.52] INVALID FOR*02/16/2017 Urinary incontinence [R32] INVALID FOR* Priority: D More... More... Pressure ulcer, other site(707.09) [L89.899] INVALID FOR*02/16/2017 Priority: L More... More... More... Implantable cardioverter-defibrillator (ICD) in*INVALID FOR* More... More... DVT prophylaxis [OZV1349] INVALID FOR* More... Thrombocytopenia (HCC) [D69.6] INVALID FOR*08/21/2017 More... More... Constipation [K59.00] INVALID FOR* Anticoagulated on Coumadin [Z51.81, Z79.01] INVALID FOR*10/11/2013 Severe aortic stenosis [I35.0] INVALID FOR*01/19/2017 Priority: A More... CHF (congestive heart failure), NYHA class III *INVALID FOR* Priority: B More... More... C. difficile diarrhea [A04.72] INVALID FOR*10/11/2013 More... Gout, arthritis [M10.9] INVALID FOR* More... Leukocytosis [D72.829] INVALID FOR*02/16/2017 Priority: B More... 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 Gait instability [R26.81] INVALID FOR* More... PAF (paroxysmal atrial fibrillation) (HCC) [I48*INVALID FOR* Diabetes mellitus (HCC) [E11.9] INVALID FOR* Other instructions from your clinician: ASSESSMENT/PLAN: 1. Bilateral impacted cerumen - ICD9: 380.4, ICD10: H61.23 -discussed proper ear hygiene -follow up with primary care if symptoms persist -discussed use of over the counter Debrox Encounter Status:Closed by ROSA CEE CNP on 09/21/17 DISCHARGE SUMMARY Observed: 09/20/2017 Status: F Source: [place] 4:10 PM [facility] REPOSITORY [facility] Medical Records Department [address] [place] [address] [place] [address] Discharge Summary 09/20/17 1604 MR#: [id number] Acct: [id number] Name: ELIZABETH HO Rep #: [id number] : 1950 67 From: Jose Castillo MD PCP: Williams Parekh MD Status: ADM IN Y Location: [place] [address] Discharge Date and Diagnosis - Problem List Patient Problems: Active and Suspected Problems (Last Updated 09/18/17 @ 09:17 by Haley Mark MD) CHF exacerbation (Acute) Date of Admission: 09/17/17 Date of Discharge: 09/20/17 - Primary Discharge Diagnosis Active and Suspected Problems (Last Updated 09/18/17 @ 09:17 by Haley Mark MD) CHF exacerbation (Acute) - Secondary Discharge Diagnosis Chronic Problems (Last Updated 09/18/17 @ 09:17 by Haley Mark MD) Atrial fibrillation (Chronic) Chronic renal insufficiency (Chronic) CAD (coronary artery disease) (Chronic) ICD (implantable cardioverter-defibrillator) in place (Chronic) Aortic stenosis (Chronic) s/p TAVR Paroxysmal atrial tachycardia (Chronic) Rheumatic tricuspid insufficiency (Chronic) ICD (implantable cardioverter-defibrillator) in place (Chronic) Ventricular tachycardia (paroxysmal) (Chronic) S/P AICD Anemia of chronic disease (Chronic) Cardiomyopathy, noncoronary (Chronic) HTN (hypertension) (Chronic) S/p TAVR (transcatheter aortic valve replacement), bioprosthetic (Chronic) 26 mm Bond Sapein Bioprosthetic Aortic Valve HLD (hyperlipidemia) (Chronic) Mitral valve stenosis and regurgitation (Chronic) Mild to moderate mitral valve stenosis with moderate mitral valve insufficiency Chronic atrial fibrillation (Chronic) Hospital Course and Treatment Operations: None Summary of Care Provided: This is a 67 years old female patient who presented to the emergency room because of chest pain and worsening shortness of breath, found to have acute on chronic systolic CHF. He was placed on IV Lasix and she had good diuresis she is now clinically compensated. She was also seen by biofuels product manager who recommended an increase in her metolazone dose. Did well and was discharged home in a stable condition. 1 acute on chronic systolic CHF; continue on metolazone 5 mg Monday and Monday, Lasix 40 mg twice daily as well as Aldactone 25 mg daily 2 chest pain; etiology consulted no ischemic workup recommended at this time. 3 CAD; we will continue on cardioprotective medications as ordered. 4. Paroxysmal A. fib; and is on Coreg and amiodarone, she takes Coumadin , this was held during this hospital due to supratherapeutic INR but has now normalized her Coumadin restarted. 5 type 2 diabetes mellitus; continue Levemir 6 hypertension; this is controlled. 7 stage III chronic kidney disease; patient is to obtain renal parameters early next week. 8 . Status post bioprosthetic aortic valve replacement, most recent echocardiogram showed normal valve function and anatomy. 9 Nonischemic cardiomyopathy: Status post ICD. 10.Hypothyroidism; patient is on Synthroid. Physical exam at the time of discharge; 113/50, 66, 97.9, 16 He was alert and oriented to time place and person. He did not appear to be any form of distress. S1 and S2 heard no murmur or gallop Lung exam was clear to auscultation with no adventitious sounds. Abdomen was soft nontender with normal bowel sounds. extremity exam did not reveal any edema, palpable pulses bilaterally. Neurologic exam was grossly intact. Discharge Diet: No Restrictions Home Medications: Medications to take at Discharge Aspirin [Aspirin, Baby] 81 mg PO DAILY@0800 03/04/14 Insulin Glargine,Hum.rec.anlog [Lantus] 42 unit SQ BREAKFAST 12/17/16 Levothyroxine [Synthroid] 75 mcg PO 0600 12/17/16 Polyethylene Glycol 3350 [Miralax] 17 gm PO DAILY 12/18/16 Acetaminophen [Tylenol] 1,000 mg PO Q8H PRN PRN tab 02/01/17 amiodarone 200 mg tablet 200 mg PO DAILY #30 tab 03/31/17 Furosemide 40 mg PO BID 06/20/17 Insulin Aspart [Novolog Flexpen] 5 units SC BREAKFAST 06/20/17 Spironolactone [Aldactone] 25 mg PO DAILY 06/20/17 carvedilol 6.25 mg tablet 6.25 mg PO BID 06/21/17 Docusate Sodium [Colace] 100 mg PO DAILY 07/22/17 warfarin 2 mg tablet 2 mg PO SUTUWETHFRSA 08/07/17 atorvastatin 40 mg tablet 40 mg PO QHS #90 tab 09/11/17 Insulin Aspart [Novolog Flexpen] 8 unit SQ BID 09/17/17 Warfarin [Coumadin] 4 mg PO MO 09/17/17 Metolazone [Zaroxolyn] 5 mg PO MOWEFR #12 tab 09/20/17 Warfarin [Coumadin] 2 mg PO DAILY@1700 tablet 09/20/17 Following Prescrptions Were Given to Patient: Metolazone [Zaroxolyn] 5 mg PO MOWEFR #12 tab Primary Care Physician: Williams Parekh MD [Primary Care Provider] - In 1 Week Medical Necessity - Tobacco Use Smoking Status: Never smoker Meaningful Use Info Meaningful Use Diagnoses (Choose all that apply): None applicable Code Visit Inpatient E AND M: 77342 Disch Hosp 09/20/17 1610 <Electronically signed by Jose Castillo MD> Date Jose Castillo MD Cosigner Signature (if applicable): Date CC: Jose Castillo MD; Williams Parekh MD Signed DISCHARGE INSTRUCTION Observed: 09/20/2017 Status: F Source: [place] 4:04 PM [facility] REPOSITORY [facility] Medical Records Department [address] [place] [address] Instructions for Home/Discharge Instructions 09/20/17 1603 MR#: [id number] Acct: [id number] Name: ELIZABETH HO Bright Rep #: [id number] : 1950 67 From: Jose Castillo MD PCP: Williams Parekh MD Status: ADM IN - Discharge Diagnoses Current Active Problems: Current Active and Chronic Problems (Last Updated 09/18/17 @ 09:17 by Haley Mark MD) CHF exacerbation (Acute) Atrial fibrillation (Chronic) Chronic renal insufficiency (Chronic) CAD (coronary artery disease) (Chronic) Allergies/Adverse Reactions: Allergies amoxicillin trihydrate [From Augmentin] Allergy (Verified 09/17/17 09:25) Rash potassium clavulanate [From Augmentin] Allergy (Verified 09/17/17 09:25) Rash Sulfa (Sulfonamide Antibiotics) Allergy (Verified 09/17/17 09:25) Hives vancomycin Allergy (Verified 09/17/17 09:25) Other LD SYNDROME Medications to take at Discharge Aspirin [Aspirin, Baby] 81 mg PO DAILY@0800 03/04/14 Insulin Glargine,Hum.rec.anlog [Lantus] 42 unit SQ BREAKFAST 12/17/16 Levothyroxine [Synthroid] 75 mcg PO 0600 12/17/16 Polyethylene Glycol 3350 [Miralax] 17 gm PO DAILY 12/18/16 Acetaminophen [Tylenol] 1,000 mg PO Q8H PRN PRN tab 02/01/17 amiodarone 200 mg tablet 200 mg PO DAILY #30 tab 03/31/17 Furosemide 40 mg PO BID 06/20/17 Insulin Aspart [Novolog Flexpen] 5 units SC BREAKFAST 06/20/17 Spironolactone [Aldactone] 25 mg PO DAILY 06/20/17 carvedilol 6.25 mg tablet 6.25 mg PO BID 06/21/17 Docusate Sodium [Colace] 100 mg PO DAILY 07/22/17 warfarin 2 mg tablet 2 mg PO SUTUWETHFRSA 08/07/17 atorvastatin 40 mg tablet 40 mg PO QHS #90 tab 09/11/17 Insulin Aspart [Novolog Flexpen] 8 unit SQ BID 09/17/17 Warfarin [Coumadin] 4 mg PO MO 09/17/17 Metolazone [Zaroxolyn] 5 mg PO MOWEFR #12 tab 09/20/17 Warfarin [Coumadin] 2 mg PO DAILY@1700 tablet 09/20/17 The following prescriptions were given: Metolazone [Zaroxolyn] 5 mg PO MOWEFR #12 tab Primary Care Physician: Williams Parekh MD [Primary Care Provider] - In 1 Week Proposed Discharge Date: 09/20/17 09/20/17 1567 <Electronically signed by Jose Castillo MD> Date Jose Castillo MD CC: Williams Parekh MD; Michael See MD 12 LEAD ELECTROCARDIOGRAM Observed: 09/20/2017 Status: F Source: [place] 2:40 PM [facility] REPOSITORY [facility] Cardiovascular Services [address] [address] 12 Lead EKG 09/17/17 0930 MR#: [id number] Acct: [id number] Name: ELIZABETH HO Rep #: [id number] : 1950 67 From: Michael See MD Attending Dr: Anna CUELLAR,Jose Status: ADM IN Ordering Dr: Douglas Li MD Date: 09/17/17 [facility] Sex: F C Admitted: 09/17/17 Test Reason : CP Blood Pressure : / mmHG Vent. Rate : 063 BPM Atrial Rate : 063 BPM P-R Int : 228 ms QRS Dur : 104 ms QT Int : 498 ms P-R-T Axes : 082 -40 075 degrees QTc Int : 509 ms Sinus rhythm with 1st degree A-V block Left axis deviation Low voltage QRS (LIMB LEADS) Prolonged QT Abnormal ECG Confirmed by ESA CUELLAR, MICHAEL ([id number]), supervising editor trailer CAT CONKLIN ([id number]) on 09/20/2017 2:40:32 PM Referred By: JEN Confirmed By:MICHAEL SEE MD 09/20/17 1440 Date Michael See MD CC: DOUGLAS LI MD; Jose Castillo MD; Williams Parekh MD Signed PROTIME W/INR Collected: 09/20/2017 Status: F Source: [place] 2:25 PM [facility] REPOSITORY TYPE CODE TESTS RESULT OUT OF REFERENCE UNITS RANGE LAB L9200.1001 11.9-14.4 SEC High PROTIME ISTAT 22.8 Result Comment: Reference Range 11.9 - 14.4 LAB L9200.2000 Normal INR ISTAT 2.00 Result Comment: Critical Value > 3.5 Performed By: #### L9200.0000 #### [facility] Point of Care [address] [place], [place] [address] BASIC METABOLIC Collected: 09/20/2017 Status: F Source: [place] PROFILE (BMP) 12:35 PM [facility] REPOSITORY Order Comment: VERY HARD STICK TYPE CODE TESTS RESULT OUT OF RANGE REFERENCE UNITS LAB L501.0100 74-106 mg/dL High GLU 239 Result Comment: Glucose result greater than or equal to 200 mg/dL suggests DIABETES MELLITUS per A.D.A. criteria. Please note revised GLUCOSE reference range effective 2017. LAB L501.1000 7-18 mg/dL High BUN 72 LAB L501.1100 0.55-1.02 mg/dL High CREAT,SERUM 1.99 Result Comment: The validity of the calculated GFR AND GFRAA in patients over 70 years has not been determined. Clinical correlation is essential. LAB L501.1110 >60 mL/min Low EST GFR 26 Result Comment: Non- GFR Calc LAB L501.1115 >60 mL/min Low EST GFR - AA 32 Result Comment: GFR Calc LAB L501.1255 ml/min Normal Estimated CRCL 24.98 LAB L501.1300 10-20 RATIO High BUN/CRE 36.2 LAB L501.2200 8.5-10 mg/dL Normal .1 CA 8.5 LAB L501.5300 136-14 mmol/L Normal 5 NA 137 LAB L501.5600 3.5-5. mmol/L Normal 1 K 4.2 Result Comment: Moderate Hemolysis, Result may be falsely increased. LAB L501.5900 98-107 mmol/L Low CL 95 LAB L501.6100 21.0-32.0 mmol/L High CO2 34.0 LAB L501.6200 5-15 Normal GAP 8 Performed By: #### L500.2500 #### [facility] [address] [place], [place], [address] BEDSIDE GLUCOSE Collected: 09/20/2017 Status: F Source: [place] 11:50 AM [facility] REPOSITORY TYPE CODE TESTS RESULT OUT OF REFERENCE UNITS RANGE LAB L501.080 70-110 mg/dL High BEDSIDE GLU 238 Result Comment: MANAGEMENT OF PATIENT CARE PER NURSING PROTOCOL Performed By: #### L501.080 #### [facility] Point of Care [address] [place] [address] BEDSIDE GLUCOSE Collected: 09/20/2017 Status: F Source: [place] 6:54 AM [facility] REPOSITORY TYPE CODE TESTS RESULT OUT OF RANGE REFERENCE UNITS LAB L501.080 70-110 mg/dL Normal BEDSIDE GLU 105 Result Comment: MANAGEMENT OF PATIENT CARE PER NURSING PROTOCOL Performed By: #### L501.080 #### [facility] Point of Care [address] [place] [address] BEDSIDE GLUCOSE Collected: 09/19/2017 Status: F Source: [place] 10:00 PM [facility] REPOSITORY TYPE CODE TESTS RESULT OUT OF RANGE REFERENCE UNITS LAB L501.080 70-110 mg/dL Normal BEDSIDE GLU 85 Result Comment: MANAGEMENT OF PATIENT CARE PER NURSING PROTOCOL Performed By: #### L501.080 #### [facility] Point of Care [address] [place] [address] BEDSIDE GLUCOSE Collected: 09/19/2017 Status: F Source: [place] 4:37 PM [facility] REPOSITORY TYPE CODE TESTS RESULT OUT OF REFERENCE UNITS RANGE LAB L501.080 70-110 mg/dL High BEDSIDE GLU 167 Result Comment: MANAGEMENT OF PATIENT CARE PER NURSING PROTOCOL Performed By: #### L501.080 #### [facility] Point of Care [address] [place] [address] BEDSIDE GLUCOSE Collected: 09/19/2017 Status: F Source: [place] 11:10 AM [facility] REPOSITORY TYPE CODE TESTS RESULT OUT OF REFERENCE UNITS RANGE LAB L501.080 70-110 mg/dL High BEDSIDE GLU 192 Result Comment: MANAGEMENT OF PATIENT CARE PER NURSING PROTOCOL Performed By: #### L501.080 #### [facility] Point of Care [address] [place] [address] BEDSIDE GLUCOSE Collected: 09/19/2017 Status: F Source: [place] 6:56 AM [facility] REPOSITORY TYPE CODE TESTS RESULT OUT OF REFERENCE UNITS RANGE LAB L501.080 70-110 mg/dL High BEDSIDE GLU 173 Result Comment: MANAGEMENT OF PATIENT CARE PER NURSING PROTOCOL Performed By: #### L501.080 #### [facility] Point of Care [address] [place], [place] [address] PROTHROMBIN TIME W/INR Collected: 09/19/2017 Status: F Source: [place] 6:25 AM [facility] REPOSITORY TYPE CODE TESTS RESULT OUT OF RANGE REFERENCE UNITS LAB L300.4150 11.7-14.9 SECONDS High PROTIME 31.7 LAB L300.4200 Normal INR 3.0 Performed By: #### L300.3900 #### [facility] [address] [place], [address] BASIC METABOLIC Collected: 09/19/2017 Status: F Source: [place] PROFILE (BMP) 6:25 AM [facility] REPOSITORY TYPE CODE TESTS RESULT OUT OF RANGE REFERENCE UNITS LAB L501.0100 74-106 mg/dL High GLU 161 Result Comment: Fasting Glucose result greater than or equal to 126 mg/dL suggests DIABETES MELLITUS per A.D.A. criteria. Please note revised GLUCOSE reference range effective 2017. LAB L501.1000 7-18 mg/dL High BUN 75 LAB L501.1100 0.55-1.02 mg/dL High CREAT,SERUM 1.93 Result Comment: The validity of the calculated GFR AND GFRAA in patients over 70 years has not been determined. Clinical correlation is essential. LAB L501.1110 >60 mL/min Low EST GFR 27 Result Comment: Non- GFR Calc LAB L501.1115 >60 mL/min Low EST GFR - AA 33 Result Comment: GFR Calc LAB L501.1255 ml/min Normal Estimated CRCL 25.75 LAB L501.1300 10-20 RATIO High BUN/CRE 38.9 LAB L501.2200 8.5-10 mg/dL Low .1 CA 8.3 LAB L501.5300 136-14 mmol/L Normal 5 NA 139 LAB L501.5600 3.5-5. mmol/L Normal 1 K 3.9 LAB L501.5900 98-107 mmol/L Low CL 97 LAB L501.6100 21.0-3 mmol/L High 2.0 CO2 33.0 LAB L501.6200 5-15 Normal GAP 9 Performed By: #### L500.2500 #### [facility] [address] [place], [address] BEDSIDE GLUCOSE Collected: 09/18/2017 Status: F Source: [place] 10:34 PM [facility] REPOSITORY TYPE CODE TESTS RESULT OUT OF REFERENCE UNITS RANGE LAB L501.080 70-110 mg/dL High BEDSIDE GLU 167 Result Comment: MANAGEMENT OF PATIENT CARE PER NURSING PROTOCOL Performed By: #### L501.080 #### [facility] Point of Care [address] [place] [address] BEDSIDE GLUCOSE Collected: 09/18/2017 Status: F Source: [place] 4:29 PM [facility] REPOSITORY TYPE CODE TESTS RESULT OUT OF REFERENCE UNITS RANGE LAB L501.080 70-110 mg/dL High BEDSIDE GLU 250 Result Comment: MANAGEMENT OF PATIENT CARE PER NURSING PROTOCOL Performed By: #### L501.080 #### [facility] Point of Care [address] [place] [address] BEDSIDE GLUCOSE Collected: 09/18/2017 Status: F Source: [place] 11:26 AM [facility] REPOSITORY TYPE CODE TESTS RESULT OUT OF REFERENCE UNITS RANGE LAB L501.080 70-110 mg/dL High BEDSIDE GLU 235 Result Comment: MANAGEMENT OF PATIENT CARE PER NURSING PROTOCOL Performed By: #### L501.080 #### [facility] Point of Care [address] [place] [address] BEDSIDE GLUCOSE Collected: 09/18/2017 Status: F Source: [place] 8:56 AM [facility] REPOSITORY TYPE CODE TESTS RESULT OUT OF REFERENCE UNITS RANGE LAB L501.080 70-110 mg/dL High BEDSIDE GLU 146 Result Comment: MANAGEMENT OF PATIENT CARE PER NURSING PROTOCOL Performed By: #### L501.080 #### [facility] Point of Care [address] [place] [address] CBC-COMPLETE BLOOD CNT Collected: 09/18/2017 Status: F Source: [place]AM NO DIFF 6:52 AM [facility] REPOSITORY TYPE CODE TESTS RESULT OUT OF RANGE REFERENCE UNITS LAB L100.1000 4.4-11.0 K/mm3 Normal WBC 4.9 LAB L100.1200 4.2-5.4 M/mm3 Low RBC 3.49 LAB L100.1300 12.0-15.0 g/dl Low HGB 10.3 LAB L100.1400 37-47 % Low HCT 32.4 LAB L100.1500 81-99 fL Normal MCV 92.8 LAB L100.1600 27.0-32.0 pg Normal MCH 29.5 LAB L100.1700 32-36 g/gl Low MCHC 31.8 LAB L100.1810 11.6-14.6 % High RDW CV 14.7 LAB L100.1820 35.1-43.9 fl High RDW SD 49.2 LAB L100.1900 150-450 K/mm3 Low PLT 142 LAB L100.2000 6.2-12.0 fl Normal MPV 10.7 Performed By: #### L100.0500 #### [facility] [address] [facility] [place], [place], [address] PROTHROMBIN TIME W/INR Collected: 09/18/2017 Status: F Source: [place] 6:52 AM [facility] REPOSITORY Order Comment: CRITICAL VALUE VERIFIED. CALLED TO [facility]ES[facility] 09/18/17 0731 Rayne Nicole. RESULTS READ BACK BY SARAH . TYPE CODE TESTS RESULT OUT OF REFERENCE UNITS RANGE LAB L300.4150 11.7-14.9 SECONDS High PROTIME 39.4 LAB L300.4200 High alert INR 4.0 Performed By: #### L300.3900 #### [facility] [address] [place], [address] BASIC METABOLIC Collected: 09/18/2017 Status: F Source: [place] PROFILE (BMP) 6:52 AM [facility] REPOSITORY TYPE CODE TESTS RESULT OUT OF RANGE REFERENCE UNITS LAB L501.0100 74-106 mg/dL High GLU 110 Result Comment: Fasting Glucose result from 100 to 125 mg/dL suggests IMPAIRED HOMEOSTASIS per A.D.A. criteria. Please note revised GLUCOSE reference range effective 2017. LAB L501.1000 7-18 mg/dL High BUN 76 LAB L501.1100 0.55-1.02 mg/dL High CREAT,SERUM 1.72 Result Comment: The validity of the calculated GFR AND GFRAA in patients over 70 years has not been determined. Clinical correlation is essential. LAB L501.1110 >60 mL/min Low EST GFR 31 Result Comment: Non- GFR Calc LAB L501.1115 >60 mL/min Low EST GFR - AA 38 Result Comment: GFR Calc LAB L501.1255 ml/min Normal Estimated CRCL 28.90 LAB L501.1300 10-20 RATIO High BUN/CRE 44.2 LAB L501.2200 8.5-10 mg/dL Low .1 CA 8.4 LAB L501.5300 136-14 mmol/L Normal 5 NA 140 LAB L501.5600 3.5-5. mmol/L Low 1 K 3.4 LAB L501.5900 98-107 mmol/L Normal CL 98 LAB L501.6100 21.0-3 mmol/L High 2.0 CO2 33.0 LAB L501.6200 5-15 Normal GAP 9 Performed By: #### L500.2500, L500.4100 #### [facility] [address] [place], [address] LIPID PROFILE Collected: 09/18/2017 Status: F Source: [place] 6:52 AM [facility] REPOSITORY TYPE CODE TESTS RESULT OUT OF RANGE REFERENCE UNITS LAB L501.4900 200 mg/dL Normal CHOL 85 Result Comment: <200 mg/dL Desirable 200-240 mg/dL Borderline >240 mg/dL High Risk LAB L501.5000 mg/dL Normal TRIG 75 Result Comment: The drugs N-Acetylcysteine and Metamizole may falsely depress this assay. Serum Triglycerides Reference Interval Normal <150 mg/dL Borderline high 150 - 199 mg/dL High 200 - 499 mg/dL Very High > or = 500 mg/dL LAB L501.6400 mg/dL Low HDL 37 Result Comment: The drugs N-Acetylcysteine and Metamizole may falsely depress this assay. Reference Range HDL <40 mg/dL Low HDL Cholesterol HDL >or= 60 mg/dL High HDL Cholesterol LAB L501.6500 0-130 mg/dL Normal LDL 33 LAB L501.6600 5-40 mg/dL Normal VLDL 15 Performed By: #### L500.2500, L500.4100 #### [facility] [address] [place], [address] BEDSIDE GLUCOSE Collected: 09/18/2017 Status: F Source: [place]AM 6:41 AM [facility] REPOSITORY TYPE CODE TESTS RESULT OUT OF REFERENCE UNITS RANGE LAB L501.080 70-110 mg/dL High BEDSIDE GLU 112 Result Comment: MANAGEMENT OF PATIENT CARE PER NURSING PROTOCOL Performed By: #### L501.080 #### [facility] Point of Care [address] [place] [address] TROPONIN-I Collected: 09/17/2017 Status: F Source: [place]AM 11:00 PM [facility] REPOSITORY Order Comment: 'TROP' Serial specimen #1, #2 or #3: 3 TYPE CODE TESTS RESULT OUT OF RANGE REFERENCE UNITS LAB L501.4010 <0.045 ng/mL Normal < 0.015 TROPONIN-I Result Comment: TROPONIN-I EXPECTED VALUES <0.045 Negative 0.045 - 0.590 Consistent with Cardiac Damage > OR = 0.600 Critical Value Not every elevated troponin is indicative of [place]. These values should be used with clinical judgement in examining the patient's clinical picture for diagnosis. To establish a diagnosis of AZ versus myocardial injury, there must be a demonstrated rise and/or fall in the troponin values, in addition to ischemic symptoms, EKG changes, new regional wall motion abnormality, and/or angiographical evidence. PLEASE NOTE: REFERENCE RANGES EDITED 17 Performed By: #### L501.4010 #### [facility] [address] [place], [address] BEDSIDE GLUCOSE Collected: 09/17/2017 Status: F Source: NAM 10:11 PM [facility] REPOSITORY TYPE CODE TESTS RESULT OUT OF REFERENCE UNITS RANGE LAB L501.080 70-110 mg/dL High BEDSIDE GLU 136 Result Comment: MANAGEMENT OF PATIENT CARE PER NURSING PROTOCOL Performed By: #### L501.080 #### [facility] Point of Care [address] [place] [address] CONSULTATION Observed: 09/17/2017 Status: F Source: NAM 5:00 PM [facility] REPOSITORY [facility] Medical Records Department [address] [place] [address] Consultation 09/17/17 1641 MR#: [id number] Acct: [id number] Name: ELIZABETH HO Rep #: [id number] : 1950 67 From: Michael See MD PCP: Williams Parekh MD Status: ADM IN Location: [place] [address] Problem List (1) CHF exacerbation Status: Acute (2) Atrial fibrillation Status: Chronic Qualifiers: Atrial fibrillation type: paroxysmal Qualified Code(s): I48.0 - Paroxysmal atrial fibrillation (3) Ventricular tachycardia (paroxysmal) Status: Chronic Comment: S/P AICD (4) S/p TAVR (transcatheter aortic valve replacement), bioprosthetic Status: Chronic Comment: 26 mm Bond Sapein Bioprosthetic Aortic Valve (5) Mitral valve stenosis and regurgitation Status: Chronic Comment: Mild to moderate mitral valve stenosis with moderate mitral valve insufficiency (6) Cardiomyopathy in disease classified elsewhere Status: Chronic (7) CAD (coronary artery disease) Status: Chronic Qualifiers: Coronary Disease-Associated Artery/Lesion type: [place] artery (8) ICD (implantable cardioverter-defibrillator) in place Status: Chronic (9) HLD (hyperlipidemia) Status: Chronic Qualifiers: Hyperlipidemia type: mixed hyperlipidemia Qualified Code(s): E78.2 - Mixed hyperlipidemia (10) HTN (hypertension) Status: Chronic Qualifiers: Hypertension type: essential hypertension Qualified Code(s): I10 - Essential (primary) hypertension (11) Chronic renal insufficiency Status: Chronic Reason for Consult Date of Consultation: 09/17/17 History of Present Illness: The patient is a 67 year old white female with a past cardiovascular history which has included underlying CHF, paroxysmal atrial fibrillation, paroxysmal ventricular tachycardia, status post transcatheter aortic valve replacement, mitral stenosis/insufficiency, non-CAD related cardiomyopathy, ICD placement, hyperlipidemia, hypertension, diabetes mellitus, chronic renal insufficiency who presents for evaluation of chest discomfort and findings compatible with recurrent acute on chronic CHF. 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 She states that he adjusted her diuretic therapy to increase her metolazone therapy. She states he noted that she was not a candidate for any type of mitral valve intervention. Thus she was to be treated medically. She notes earlier this day she noted chest tightness. She was more short of breath and dyspneic. She has had ongoing peripheral pitting edema. She presented to the emergency department for further evaluation. She was thought to have evidence of acute on chronic CHF. She was subsequently brought into the hospital for further evaluation. She has denied any episodes of palpitations or ICD discharge. There has been no episodes of near syncope or syncope. She did have a transthoracic echocardiogram performed on 07/10/2017. At that time her left ventricle was thought to demonstrate mild global left ventricular systolic dysfunction with a reported LVEF of 47% with moderate left atrial enlargement and mild right atrial enlargement and mild mitral annular calcification with mitral valve spectral Doppler findings suggestive of moderate mitral valve stenosis and color-flow Doppler findings reported compatible with mild mitral valve insufficiency. She had mild to moderate TR. There was a bioprosthetic aortic valve replacement noted with mild perivalvular insufficiency. Her estimated RV systolic pressure was 50 mmHg compatible with pulmonary hypertension. She had a troponin I level performed which was negative. She had an ECG performed which demonstrated sinus rhythm with a first-degree AV block with left axis deviation and low voltage QRS in the limb leads and poor R-wave progression. A chest x-ray was performed. It suggested possible increased pulmonary vascularity. He was treated with IV diuretic therapy. She was subsequently transferred to the PCU. [] Past Medical History Allergies/Adverse Reactions: Allergies amoxicillin trihydrate [From Augmentin] Allergy (Verified 09/17/17 09:25) Rash potassium clavulanate [From Augmentin] Allergy (Verified 09/17/17 09:25) Rash Sulfa (Sulfonamide Antibiotics) Allergy (Verified 09/17/17 09:25) Hives vancomycin Allergy (Verified 09/17/17 09:25) Other LD SYNDROME Home Medications: Ambulatory Orders Medication Instructions Recorded Aspirin [Aspirin, Baby] 81 mg PO DAILY@0800 03/04/14 Insulin Glargine,Hum.rec.anlog 42 unit SQ BREAKFAST 12/17/16 Past Medical History (Chronic Problems): Chronic Problems (Last Updated 06/21/17 @ 08:34 by Stefany Carrion) Atrial fibrillation (Chronic) Chronic renal insufficiency (Chronic) CAD (coronary artery disease) (Chronic) ICD (implantable cardioverter-defibrillator) in place (Chronic) Aortic stenosis (Chronic) s/p TAVR Cardiomyopathy in disease classified elsewhere (Chronic) Paroxysmal atrial tachycardia (Chronic) Ventricular flutter (Chronic) Rheumatic tricuspid insufficiency (Chronic) nursing home (current) use of anticoagulants (Chronic) ICD (implantable cardioverter-defibrillator) in place (Chronic) Ventricular tachycardia (paroxysmal) (Chronic) S/P AICD Anemia of chronic disease (Chronic) Cardiomyopathy, noncoronary (Chronic) HTN (hypertension) (Chronic) S/p TAVR (transcatheter aortic valve replacement), bioprosthetic (Chronic) 26 mm Bond Sapein Bioprosthetic Aortic Valve HLD (hyperlipidemia) (Chronic) Biatrial enlargement (Chronic) Severe Mitral valve stenosis and regurgitation (Chronic) Mild to moderate mitral valve stenosis with moderate mitral valve insufficiency Chronic atrial fibrillation (Chronic) Surgical History: appendectomy, tonsillectomy, - - S/P TAVR; S/P ICD Psychiatric History: No pertinent psych hx 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: No pertinent LEAD SECURITY OFFICER history - *Family History Maternal Family History: Family History (Last Updated 06/21/17 @ 08:36 by Stefany Carrion) Father CVA (cerebral vascular accident) Valvular heart disease Presence of permanent cardiac pacemaker Mother CVA (cerebral vascular accident) Other Family history of CVA History Items: - - heart disease, stroke Paternal Family History: Family History (Last Updated 06/21/17 @ 08:36 by Stefany Carrion) Father CVA (cerebral vascular accident) Valvular heart disease Presence of permanent cardiac pacemaker Mother CVA (cerebral vascular accident) Other Family history of CVA History Items: - - father with kidney disease, heart disease and stroke Lives: Alone Smoking Status: Never smoker Alcohol: None Drugs: None Review of Systems - Review of Systems General: Denies: Fever, Night Sweats, Fatigue Cardiovascular: Reports: Chest Discomfort, Chest Discomfort at Rest, Shortness of Breath, Shortness of Breath at Rest, Orthopnea, Peripheral Edema. Denies: PND, Palpitations, Lightheadedness, Dizziness, Near Syncope, Syncope Respiratory: Reports: Shortness of Breath. Denies: Cough, Sputum Production, Hemoptysis Gastrointestinal: Denies: Hematemesis, Hematochezia, Melena Genitourinary: Denies: Dysuria, Hematuria Skin: Denies: Rash Subjectve: This is a 67-year-old white female who appears to be resting reasonably comfortably at the moment in no acute distress. Objective: Vital Signs Temp Pulse Resp BP Pulse Ox 99.8 F H 65 16 114/53 L 97 09/17/17 16:15 09/17/17 16:15 09/17/17 16:15 09/17/17 16:15 09/17/17 16:15 Oxygen Flow Rate (L/min) 2 Oxygen Delivery Method Nasal Cannula Weight: 208 lb 8.917 oz Body Mass Index (BMI) 33.6 General: Awake, Alert, Oriented x 3, Cooperative, No Acute Distress, Obese HEENT: Atraumatic, Normocephalic, PERRL, EOMI, Sclera Non Icteric Oral: Moist Mucosa Neck: Supple, Good ROM, No JVD Lungs: Rales - Deandre Bases Cardiovascular: Regular Rhythm, Normal S1, Normal S2 Murmur Murmur: Grade 2/6, Harsh, Mid Systolic, LLSB, LVOT, Sternal Notch Vascular: No Carotid Bruits Abdomen: Bowel Sounds Present, Soft, Non Tender Extremities: Moderate RLE Edema, Moderate LLE Edema Rhythm: Sinus rhythm EKG: As noted above ECHO: As noted above: Please see official report Cardiac Cath: 03/04/2014: [facility]: Left main normal; LAD with diffuse mild luminal irregularities; LCx with OM 2 with 30-40% stenosis; RCA being a small nondominant vessel with minimal luminal irregularities CT Surgery: 09/10/2013: Trans-cutaneous aortic valve replacement: 26 mm Bond Stephanie prosthetic aortic valve Holter monitor: 06/27/2013: [facility]: Sinus rhythm with PACs and PVCs ICD: Impossible Software: Energen: Model number: [id number]: Serial number: [id number]: Date implanted: 08/14/2014: Dual-chamber ICD CXR: As noted above: Please see official report Assessment/Plan 1. Acute on chronic systolic CHF The patient presents with signs and symptoms compatible with acute on chronic systolic CHF. This is a recurrent event for her despite her attempting to monitor her diet and take her medications appropriately. At the present time she will continue medical therapy. This will include IV diuresis. Her other medications can be adjusted as needed. 2. Paroxysmal atrial fibrillation Her rate and rhythm will be followed. She will continue medical management with rate control therapy, antiarrhythmic therapy, and anticoagulant therapy as deemed appropriate. 3. Paroxysmal ventricular tachycardia The patient does have an underlying ICD in place. It has been functioning appropriately. She will continue medical management with her beta-kodi, antiarrhythmic therapy as deemed appropriate, and her ICD in place. 4. TAVR The patient's bioprosthetic heart valve was recently evaluated. It was functioning appropriately. She recently had her [facility] follow-up visit. There were no additional recommendations made for further evaluation or care of the aortic valve other than continued medical management and [employer] antibiotic prophylaxis. 5. Mitral valve disorder with mitral valve stenosis/insufficiency This was reassessed per the patient at the [facility] Main campus. She states she was not a candidate for any further intervention/surgery. She will need to continue medical management as best as possible to compensate for this as this may be contributing to her recurrent acute on chronic systolic CHF mediated events. 6. Non-CAD related cardiomyopathy The patient has a history of a non-CAD related cardiomyopathy with diminished LV systolic function. She will continue medical management with adjustment as needed based on her recurrent acute on chronic systolic CHF event. 7. CAD The patient does have a history of underlying CAD. Her previous findings are as noted above. She needs to continue risk factor modification medical therapy. She will be monitored for any obvious concerns of the development/progression of CAD leading to an acute coronary syndrome, etc. She then can be reassessed as needed. 8. ICD The patient does have an ICD in place. It has been evaluated in the past. It has been functioning appropriately. 9. Hyperlipidemia The patient will continue medical management. 10. Hypertension The patient will continue antihypertensive therapy with adjustment as needed. 11. Diabetes mellitus The patient will continue under the care of internal medicine. 12. Chronic renal insufficiency Patient will continue to have her renal function followed as her medications are adjusted and her clinical course progresses. Comment: The above was discussed with the patient and the [facility] emergency department staff. This note was generated with [employer] software. It may contain incorrect words, spelling, and punctuation that were not noted in checking the note before signing. 09/17/17 1700 <Electronically signed by Michael See MD> Date Michael See MD Cosigner Signature (if applicable): Date CC: Williams Parekh MD; Michael See MD Signed BEDSIDE GLUCOSE Collected: 09/17/2017 Status: F Source: [place] 4:47 PM [facility] REPOSITORY TYPE CODE TESTS RESULT OUT OF REFERENCE UNITS RANGE LAB L501.080 70-110 mg/dL High BEDSIDE GLU 287 Result Comment: MANAGEMENT OF PATIENT CARE PER NURSING PROTOCOL Performed By: #### L501.080 #### [facility] Point of Care [address] [place], [place] [address] TROPONIN-I Collected: 09/17/2017 Status: F Source: [place] 4:47 [facility] REPOSITORY Order Comment: 'TROP' Serial specimen #1, #2 or #3: 1 TYPE CODE TESTS RESULT OUT OF RANGE REFERENCE UNITS LAB L501.4010 <0.045 ng/mL Normal < 0.015 TROPONIN-I Result Comment: TROPONIN-I EXPECTED VALUES <0.045 Negative 0.045 - 0.590 Consistent with Cardiac Damage > OR = 0.600 Critical Value Not every elevated troponin is indicative of AZ. These values should be used with clinical judgement in examining the patient's clinical picture for diagnosis. To establish a diagnosis of AZ versus myocardial injury, there must be a demonstrated rise and/or fall in the troponin values, in addition to ischemic symptoms, EKG changes, new regional wall motion abnormality, and/or angiographical evidence. PLEASE NOTE: REFERENCE RANGES EDITED 17 Performed By: #### L501.4010, L501.5200, L501.9520 #### [facility] [address] [place], [place], [id number] MAGNESIUM Collected: 09/17/2017 Status: F Source: [place] 4:47 PM [facility] REPOSITORY Order Comment: 'TROP' Serial specimen #1, #2 or #3: 1 TYPE CODE TESTS RESULT OUT OF RANGE REFERENCE UNITS LAB L501.5200 1.6-2.6 mg/dL Normal MG 2.2 Performed By: #### L501.4010, L501.5200, L501.9520 #### [facility] [address] [place], [address] THYROID STIM HORMONE Collected: 09/17/2017 Status: F Source: NAM (TSH) 4:47 PM [facility] REPOSITORY Order Comment: 'TROP' Serial specimen #1, #2 or #3: 1 TYPE CODE TESTS RESULT OUT OF RANGE REFERENCE UNITS LAB L501.9520 0.358-3.74 uIU/mL Normal TSH 1.04 Performed By: #### L501.4010, L501.5200, L501.9520 #### [facility] [address] [place], [address] PROTHROMBIN TIME W/INR Collected: 09/17/2017 Status: F Source: [place] 4:47 PM [facility] REPOSITORY TYPE CODE TESTS RESULT OUT OF REFERENCE UNITS RANGE LAB L300.4150 11.7-14.9 SECONDS High PROTIME 38.1 LAB L300.4200 High alert INR 3.8 Result Comment: CRITICAL VALUE VERIFIED. CALLED TO VIOLETA GARCIA 09/17/17 1752 Sandra Israel. RESULTS READ BACK BY SAME. Performed By: #### L300.3900 #### [facility] [address] [place], [address] HISTORY AND PHYSICAL Observed: 09/17/2017 Status: F Source: NAM EXAM 4:13 PM [facility] REPOSITORY [facility] Medical Records Department [address] [place] [address] History and Physical 09/17/17 1455 MR#: [id number] Acct: [id number] Name: ELIZABETH HO Rep #: [id number] : 1950 67 From: Cyndie GREEN PCP: Williams Parekh MD Status: ADM IN Y Location: [place] [address] ADDENDUM by Loren Mendez on 09/17/17 at 1613 Code Visit ATTENDING PHYSICIAN NOTE: I have seen and examined the patient independently and agree with the assessment, plan, history per Cyndie Asif as noted. Chief Complaint: Dyspnea, Chest pain, Edema. The patient is a 66 y/o F w/ PMHx: AOCD, CAD, Systolic CHF/Non- ischemic cardiomyopathy, PAF, s/p pacemaker and AICD, Diabetes mellitus type II, HTN, HLD, Valvular Heart Disease s/o AVR (ZAK) and MVR but not intervention candidate, RA, CKD stage III, Chronic BL LE Lymphedema/PVD, Obesity who presents to the [facility] ED on 09/17/17 with history of increased lower extremity edema as well as dyspnea, worse with exertion and ongoing chronic history of inability to lay flat secondary to neck discomfort with onset of substernal chest discomfort awakening her from sleep at approximately 2 AM noted to be pressure-like in nature without radiation with no associated nausea, emesis, diaphoresis, dizziness or lightheadedness. In the ED work-up included T 98, heart rate 62, BP 114/54, respiratory rate 16, 98% on 3 L nasal cannula, to be seen with W BC 10.2, hemoglobin 10.7, platelet 157 with left shift, BMP with BUN/creatinine 77/2.02, glucose 307, troponin less than 0.015, BNP 203.7, chest x-ray with mild to moderate congestion, EKG SR without acute evidence of ischemia. In the ED patient administered albuterol, DuoNeb, aspirin, Lasix. Labs, Allergies, Home medications, Social Hx, PSurgHx, Family Hx per note below. Admission Review of Systems: CONSTITUTIONAL: No weight loss, fever, chills,+ weakness or fatigue. HEENT: Eyes: No visual loss, blurred vision, double vision or yellow sclerae. Ears, Nose, Throat: No hearing loss, sneezing, congestion, runny nose or sore throat. SKIN: No rash or itching, lesions, wounds. CARDIOVASCULAR: + chest pain, chest pressure, edema, chronic orthopnea, No syncopal events. RESPIRATORY: + shortness of breath, worse with exertion, No cough or sputum, wheezing, hemoptysis. GASTROINTESTINAL: No anorexia, nausea, vomiting or diarrhea, abdominal pain, melena, BRBPR. GENITOURINARY: No dysuria, frequency, urgency or retention. NEUROLOGICAL: No headache, dizziness, syncope, paralysis, ataxia, numbness or tingling in the extremities, focal weakness, change in bowel or bladder control, seizure. MUSCULOSKELETAL: No muscle, back pain, joint pain or stiffness. HEMATOLOGIC: + anemia, bleeding or bruising. LYMPHATICS: No enlarged nodes. No history of splenectomy. PSYCHIATRIC: + history of depression or anxiety. ENDOCRINOLOGIC: No reports of sweating, cold or heat intolerance. No polyuria or polydipsia. ALLERGIES: No history of asthma, hives, eczema or rhinitis. Admission VS: As noted below. Physical Examination: General: awake, alert, oriented x 3 and cooperative, seated upright in bed, fatigued appearance otherwise NAD. Skin: normal color, turgor, no icterus, cyanosis. HEENT: AT/NC, EOMI, PERRLA, MMM, chronic speech impediment, no evidence carotid bruit, unable to assess JVD secondary to thickened neck. Lungs: Diminished BS BL, > bases, moderate effort, no ronchi or wheezing, + rales. Heart: Regular rate and rhythm; no gallop, rub audible, s/p AVR, MR. Abdomen: soft, obese, NTTP, ND, normal BS, no HSM; however, habitus makes it difficult to assess. Extremities: no cyanosis, clubbing, chronic BL LE lymphedema usually 1-2+ ankle to knee w/ sure-press in place. Neurological: patient awake, alert, oriented x 3; cognitive function intact; pupils equally reactive to light and accomodation; cranial nerves II-XII grossly normal, moving all 4 extremities, no focal deficits, strength moderately to severely globally decreased. Psychiatric: affect appears normal, mildly fatigued, no acute evidence of depressive or anxiety feelings. Assessment and Plan: The patient is a 66 y/o F w/ PMHx: AOCD, CAD, Systolic CHF/Non- ischemic cardiomyopathy, PAF, s/p pacemaker and AICD, Diabetes mellitus type II, HTN, HLD, Valvular Heart Disease s/o AVR (ZAK) and MVR but not intervention candidate, RA, CKD stage III, Chronic BL LE Lymphedema/PVD, Obesity who presents to the [facility] ED on 09/17/17 with history of increased lower extremity edema as well as dyspnea, worse with exertion and ongoing chronic history of inability to lay flat secondary to neck discomfort with onset of substernal chest discomfort awakening her from sleep at approximately 2 AM noted to be pressure-like in nature without radiation with no associated nausea, emesis, diaphoresis, dizziness or lightheadedness. (1) Acute Decompensated Systolic CHF w/ Chronic Hypoxic Respiratory Failure (3L NC): CXR obtained in the ED w/ mild congestion. Will admit to PCU, maintain on cardiac telemetry, obtain cardiac enzyme series, obtain serial EKGs, continue IV lasix diuresis, monitor I/Os, maintain on intake restriction, continue medical therapy w/ asa, statin, BB, spironolactone, no on ACEI likely secondary to CKD stage III. Recent ECHO 06/2017 thus will not repeat. Maintain sure-press wraps. Obtain mag, TSH levels. Cardiology consulted, pending. s/p AICD, interrogation requested also. (2) Chest Pain: EKG in ED SR, CXR w/ mild congestion, chronic changes, initial trop normal x 1. Will place on a monitored bed to assure no acute myocardial infarction with serial cardiac enzymes and EKGs. Given #1, will continue treatment, await Cardiology input and evaluation prior to consideration for cardiac stress testing. ASA, NG, morphine. Additional Co-morbidities: PAF/PAT: Maintain on coumadin w/ admitting INR pending and trend, continue home coreg, amiodarone regimen. Valvular Heart Disease: s/p AVR (ZAK), porcine valve. Recent ECHO as noted 06/2017. CKD stage III: Baseline Cr 1.6-1.8, admission BUN/Cr 77/2.02, mildly increased from baseline, monitor especially given IV lasix usage. Hypothyroidism: Continue home synthroid regimen, TSH normal. Hypertension: Maintain on coreg, spironolactone, metalozone, IV lasix as noted, PRN hydralazine. CAD: Maintain on asa, coumadin, statin, coreg. Hyperlipidemia: Continue home statin regimen. AM FLP. Diabetes mellitus type II: Hold oral home regimen, continue home insulin regimen, ADA diet, accu checks w/ ISS. Chronic Normocytic Anemia, AOCD: Admission Hgb 10.7, stable, baseline, trend. DVT prophylaxis: SCDs, pending INR, continue home coumadin regimen. CODE status: Discussed CODE status at length including difference between FULL code, DNR-CCA and DNR-CC status. 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 Advanced Care Planning Face to Face Time: 20 minutes. Inpatient E AND M: [id number] Init Hosp L3 Procedures: 45828 Advncd Care Plan 30 Min 09/17/17 1613 <Electronically signed by Loren Mendez > Date Loren Mendez cc: NORMA Asif; Loren Mendez; Williams Parekh MD * Signed Problem List (1) ICD (implantable cardioverter-defibrillator) in place Status: Chronic (2) Other secondary pulmonary hypertension Status: Acute (3) Aortic stenosis Status: Chronic Comment: s/p TAVR (4) Cardiomyopathy in disease classified elsewhere Status: Chronic (5) Paroxysmal atrial tachycardia Status: Chronic (6) Ventricular flutter Status: Chronic (7) Rheumatic tricuspid insufficiency Status: Chronic (8) nursing home (current) use of anticoagulants Status: Chronic (9) ICD (implantable cardioverter-defibrillator) in place Status: Chronic (10) Ventricular tachycardia (paroxysmal) Status: Chronic Comment: S/P AICD (11) Anemia of chronic disease Status: Chronic (12) Cardiomyopathy, noncoronary Status: Chronic (13) HTN (hypertension) Status: Chronic Qualifiers: Hypertension type: essential hypertension Qualified Code(s): I10 - Essential (primary) hypertension (14) S/p TAVR (transcatheter aortic valve replacement), bioprosthetic Status: Chronic Comment: 26 mm Bond Sapein Bioprosthetic Aortic Valve (15) HLD (hyperlipidemia) Status: Chronic Qualifiers: Hyperlipidemia type: mixed hyperlipidemia Qualified Code(s): E78.2 - Mixed hyperlipidemia (16) Biatrial enlargement Status: Chronic Comment: Severe (17) Mitral valve stenosis and regurgitation Status: Chronic Comment: Mild to moderate mitral valve stenosis with moderate mitral valve insufficiency (18) Shortness of breath Status: Acute (19) Acute systolic (congestive) heart failure Status: Acute (20) Chronic atrial fibrillation Status: Chronic History of Present Illness Date of Admission: 09/17/17 Chief Complaint: Chest pain, increased shortness of breath. The patient is a 67 year old F who presents to the emergency room with chest pain, increased lower extremity swelling and increased shortness of breath. Patient states she had chest pain between 2 and 3 AM this morning which woke her from her sleep. Pain was pressure-like in nature and in the center of her chest. No pain radiation. Patient states the pain was 7 out of 10 and continued until arriving in the emergency room. She denies diaphoresis, dizziness, lightheadedness. Denies palpitations. Complains of associated shortness of breath although she states she has ongoing shortness of breath. She is chronically on 2 L nasal cannula due to bad heart. Patient follows with Dr. See. She states she cannot have a stress test due to fear of being in closed places. Patient has a past medical history of chronic systolic CHF, CAD, nonischemic cardiomyopathy, paroxysmal atrial fibrillation, type 2 diabetes mellitus, history of bioprosthetic aortic valve replacement, history of ventricular tachycardia status post AICD, chronic venous insufficiency bilateral lower extremities, hypertension, hyperlipidemia, rheumatoid arthritis, chronic kidney disease stage III, obesity, mitral valve stenosis and regurgitation, chronic hypoxic respiratory failure. 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 (Chronic) ICD (implantable cardioverter-defibrillator) in place (Chronic) Ventricular tachycardia (paroxysmal) (Chronic) S/P AICD Anemia of chronic disease (Chronic) Cardiomyopathy, noncoronary (Chronic) HTN (hypertension) (Chronic) S/p TAVR (transcatheter aortic valve replacement), bioprosthetic (Chronic) 26 mm Bond Sapein Bioprosthetic Aortic Valve HLD (hyperlipidemia) (Chronic) Biatrial enlargement (Chronic) Severe Mitral valve stenosis and regurgitation (Chronic) Mild to moderate mitral valve stenosis with moderate mitral valve insufficiency Chronic atrial fibrillation (Chronic) Allergies amoxicillin trihydrate [From Augmentin] Allergy (Verified 09/17/17 09:25) Rash potassium clavulanate [From Augmentin] Allergy (Verified 09/17/17 09:25) Rash Sulfa (Sulfonamide Antibiotics) Allergy (Verified 09/17/17 09:25) Hives vancomycin Allergy (Verified 09/17/17 09:25) Other LD SYNDROME Home Medications: Ambulatory Orders Medication Instructions Recorded Aspirin [Aspirin, Baby] 81 mg PO DAILY@0800 03/04/14 Insulin Glargine,Hum.rec.anlog 42 unit SQ BREAKFAST 12/17/16 Surgical History: appendectomy, tonsillectomy, - - S/P TAVR; S/P ICD Psychiatric History: No pertinent psych hx 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 Denies: Light Headedness, Palpitations, Syncope Respiratory: Reports: Shortness of breath upon exertion. Denies: Cough, Sputum production, Wheezing Gastrointestinal: Denies: Abdominal Pain, Nausea, Vomiting Genitourinary: Denies: Dysuria Musculoskeletal: Denies: Joint Pain, Joint Tenderness Skin: Denies: Rash, Wounds Neurological: Denies: Numbness, Tingling, Focal weakness Psychiatric: Denies: Anxiety, Depression, Homicidal Ideations, Suicidal Ideations Hematologic/ Lymphatic: Denies: Easy Bruising, Easy Bleeding VTE Information - Inpt Only VTE Present on Admission: No VTE Mechan Device Prophylaxis: Knee High RIDDHI Hose VTE Pharm Prophylaxis ordered?: Yes Patient Problems: Active and Suspected Problems (Last Updated 06/21/17 @ 08:34 by Stefany Carrion) CHF exacerbation (Acute) JAYESH (acute kidney injury) (Acute) - Physical Exam General: Alert, Oriented x3, Cooperative HEENT: Atraumatic, PERRLA, EOMI, Normocephalic Neck: Supple, No JVD, Negative Carotid Bruits Lungs: Diminished, - - Scattered crackles bilateral bases Cardiovascular: Regular rate, Regular Rhythm, Normal S1, Normal S2, Murmur Abdomen: Bowel Sounds Present, Soft, Non Tender, Non-Distended, Obese Extremities: No clubbing, No cyanosis, Edema - BLLE Skin: No rashes, No breakdown Musculoskeletal: No Tenderness to Palpation of Joints or Extremities Neurological: Cranial nerves II-XII grossly intact, Neuro grossly intact Psych/Mental Status: Normal Affect, Appropriate Vital Signs Temp Pulse Resp BP Pulse Ox 98 F 62 16 114/54 L 98 09/17/17 14:20 09/17/17 14:20 09/17/17 13:10 09/17/17 14:20 09/17/17 14:19 Oxygen Flow Rate (L/min) 2 Oxygen Delivery Method Nasal Cannula Weight: 98.7 kg Body Mass Index (BMI) 35.1 Finger Stick Blood Glucose 261 Laboratory Tests Past 24 Hrs WBC 10.2 Assessment/Plan Active and Suspected Problems (Last Updated 06/21/17 @ 08:34 by Stefany Carrion) CHF exacerbation (Acute) JAYESH (acute kidney injury) (Acute) 1. Acute on chronic systolic CHF exacerbation-chest x-ray on admission with mild pulmonary vascular congestion. BNP 203. Echocardiogram 06/2017 showed EF 47%, mild global left ventricular systolic dysfunction, bioprosthetic aortic valve, pulmonary artery systolic pressure 50 mmHg, moderate pulmonary hypertension. No significant change compared to prior study. Continue home metolazone regimen. IV Lasix 40 mg every 8. Daily weight. Strict I AND O. Continue RIDDHI hose bilateral lower extremities. 1500 Fluid restriction. Cardiology consult. Patient follows with Dr. See. 2. Chest pain-EKG without evidence of ST-T changes. Cycle enzymes. Repeat EKG in a.m. Consult cardiology. Consider stress test after further diuresis. 3. Chronic hypoxic respiratory failure-secondary to #1. Continue supplement oxygen to maintain O2 at or above 90%. 4. CAD-continue aspirin, statin, carvedilol. 5. Paroxysmal atrial fibrillation-currently sinus rhythm. Continue home amiodarone, carvedilol, Coumadin regimen. 6. Type 2 diabetes [id number]-[id number] before meals at bedtime with sliding scale insulin. Continue home Lantus and scheduled NovoLog regimen. 7. Nonischemic cardiomyopathy-EF 47%. 8. History of bioprosthetic aortic valve replacement (TAVR) 9. Mitral valve stenosis and regurgitation 10. History of ventricular tachycardia status post AICD 11. Chronic venous insufficiency bilateral lower extremities- Continue BL riddhi hose. 12. Hypertension-stable, continue home regimen. 13. Hyperlipidemia-Continue statin. 14. Rheumatoid arthritis 15. Chronic kidney disease stage III-stable, at baseline. Monitor BMP. 16. Obesity-Encourage diet and lifestyle DVT prophylaxis- Heparin SC This patient was seen by NORMA Bledsoe under the supervision of Dr. Mendez. 09/17/17 1558 <Electronically signed by Cyndie GREEN> Date Cyndie GREEN 09/17/17 1600<Electronically signed by Loren Mendez > Cosigner Signature: Date (if applicable) Loren Mendez CC: NORMA Asif; Loren Mendez; Willimas Parekh MD Signed EMERGENCY DEPARTMENT Observed: 09/17/2017 Status: F Source: [place] SUMMARY 3:29 PM [facility] REPOSITORY [facility] Medical Records Department [address] [place] [id number] Emergency Department Summary 09/17/17 1010 MR#: [id number] Acct: [id number] Name: ELIZABETH HO Bright Rep #: [id number] : 1950 67 From: Douglas Li MD PCP: Williams Parekh MD Status: REG ER History of Present Illness Chief Complaint: Chest Pain Informant: Patient Onset: Hours - 6-7 Context: Gradual Onset Timing: Continuous Quality: sob. chest tightness. Location: across chest Current Severity: Moderate Maximum Severity: Moderate Worsened by: exertion/walking. doesn't lie down, so ? if orthopnea. Relieved by: rest, but doesn't resolve. hasn't tried other meds. Associated Symptoms: chest tightness, wheezing. chronic unchanged BLE edema. Narrative: Does not have a history of COPD. Has a history of congestive heart failure and had an aortic valve repair for aortic stenosis. Gradual onset of simultaneous symptoms today, has been on Lasix but does not seem to be decreasing her lower extremity edema. Has a history of AICD/pacemaker. - Past Medical History (1) Anemia of chronic disease Status: Chronic (2) Aortic stenosis Status: Chronic Comment: s/p TAVR (3) Biatrial enlargement Status: Chronic Comment: Severe (4) Cardiomyopathy, noncoronary Status: Chronic (5) Chronic atrial fibrillation Status: Chronic (6) HLD (hyperlipidemia) Status: Chronic (7) HTN (hypertension) Status: Chronic (8) ICD (implantable cardioverter-defibrillator) in place Status: Chronic (9) Mitral valve stenosis and regurgitation Status: Chronic Comment: Mild to moderate mitral valve stenosis with moderate mitral valve insufficiency (10) Paroxysmal atrial tachycardia Status: Chronic (11) Rheumatic tricuspid insufficiency Status: Chronic (12) S/p TAVR (transcatheter aortic valve replacement), bioprosthetic Status: Chronic Comment: 26 mm Bond Sapein Bioprosthetic Aortic Valve (13) Ventricular tachycardia (paroxysmal) Status: Chronic Comment: S/P AICD Past Medical History - Allergies and Home Meds Allergies/Adverse Reactions: Allergies amoxicillin trihydrate [From Augmentin] Allergy (Verified 09/17/17 09:25) Rash potassium clavulanate [From Augmentin] Allergy (Verified 09/17/17 09:25) Rash Sulfa (Sulfonamide Antibiotics) Allergy (Verified 09/17/17 09:25) Hives vancomycin Allergy (Verified 09/17/17 09:25) Other LD SYNDROME Home Medications: Home Medications Medication Instructions Recorded Aspirin [Aspirin, Baby] 81 mg PO DAILY@0800 03/04/14 Insulin Glargine,Hum.rec.anlog 42 unit SQ BREAKFAST 12/17/16 Primary Care Physician: Williams Parekh MD [Primary Care Provider] - Surgical History: appendectomy, tonsillectomy, - - S/P TAVR; S/P ICD Smoking Status: Never smoker - Family History Maternal Family History: Family History (Last Updated 06/21/17 @ 08:36 by Stefany Carrion) Father CVA (cerebral vascular accident) Valvular heart disease Presence of permanent cardiac pacemaker Mother CVA (cerebral vascular accident) Other Family history of CVA Family History: Reports: - - heart disease, stroke Paternal Family History: Family History (Last Updated 06/21/17 @ 08:36 by Stefany Carrion) Father CVA (cerebral vascular accident) Valvular heart disease Presence of permanent cardiac pacemaker Mother CVA (cerebral vascular accident) Other Family history of CVA Family History: Reports: - - father with kidney disease, heart disease and stroke Review of Systems All systems negative except as indicated General: Reports: Malaise. Denies: Chills, Fever Cardiovascular: Reports: Chest pain. Denies: Palpitations, Heart racing Respiratory: Reports: Dyspnea, Cough, Dyspnea on exertion. Denies: Sputum Gastrointestinal: Denies: Abdominal pain, Nausea, Vomiting, Diarrhea, Melena Musculoskeletal: Reports: Swelling. Denies: Neck pain, Back pain, Extremity Pain Physical Exam Vital Signs/Narrative: Vital Signs 09/17/17 09:25 98.0 F 64 20 H 116/58 L 97 Inital Vital Signs reviewed: Yes General: Well nourished, Well developed, Obese Head: Normocephalic, Atraumatic Eyes: Perrl, EOMI ENT: Moist mucous membranes, No rhinorrhea Neck: Supple, Nontender, No JVD - Exam somewhat limited by obesity Cardiovascular: Regular rate, Regular rhythm Respiratory: No distress, Diminished - Throughout, symmetrically Abdomen: Soft, Nontender, Nondistended, Normal bowel sounds Back: Nontender, Normal Inspection Extremities: Nontender, Edema - 3+ bilateral lower extremity, symmetric. Skin: Normal color, No rash Neurological: Alert, Oriented x3, Cranial nerves II-XII grossly intact, Normal Strength, Normal Sensation Psychological: Normal affect Diagnostic/Tx/Re-eval Impressions Chest X-Ray 09/17/17 09:49 09/17/17 09:49 Chest 1 View (Portable) [RAD] Stat Laboratory Results - Rhythm Strip Rhythm Strip: Sinus Rhythm Rate: 65 Ectopy: None - EKG 1 Interpretation: Sinus Rhythm, No Acute Injury Pattern, LAFB, - - prolonged QTc - Medical Decision Making Patient did feel little better after a duo nebulizer treatment but still had symptoms. Her dyspnea is significantly worse with light exertion and she is uncomfortable going home even though her troponin is negative and her EKG is unremarkable. I do not think she is having acute coronary syndrome. X-ray was suspicious for subtle airspace densities in the right lower lobe, but I do not think this represents pneumonia. She does have a white blood count at the high end of normal with a slight leftward shift, but she has not been coughing, despite being dyspneic. She states that she feels fluid overloaded and I think that is probably related as well, especially with the edema in her legs and the fact that the diuretics are not helping. She states she was placed on Zaroxolyn 3 times a week recently from her doctor in [place]. I discussed with Dr. See, who agrees that medically, inpatient or outpatient may be reasonable. He will evaluate her if admitted. Will discuss with hospitalist. ED Disposition - Plan for ED Patient: Disposition: Acute Care Hospital [facility] Chief Complaint: Chest Pain Diagnosis: CHF exacerbation, JAYESH (acute kidney injury) What to do if you have Problems For any increased pain, shortness of breath, bleeding, nausea or vomiting, chest pain, or any unexpected problems, contact your Primary Care Provider. Call [facility] ([phone]) or report to the closest Emergency Room. Call 911 if necessary. 09/17/17 1529 <Electronically signed by Douglas Li MD> Date Douglas Li MD Cosigner Signature (If Indicated): Date CC: Williams Parekh MD CBC W/DIFF, AUTOMATED Collected: 09/17/2017 Status: F Source: [place] 9:50 AM [facility] REPOSITORY TYPE CODE TESTS RESULT OUT OF RANGE REFERENCE UNITS LAB L100.1000 4.4-11.0 K/mm3 Normal WBC 10.2 LAB L100.1200 4.2-5.4 M/mm3 Low RBC 3.65 LAB L100.1300 12.0-15.0 g/dl Low HGB 10.7 LAB L100.1400 37-47 % Low HCT 34.8 LAB L100.1500 81-99 fL Normal MCV 95.3 LAB L100.1600 27.0-32.0 pg Normal MCH 29.3 LAB L100.1700 32-36 g/gl Low MCHC 30.7 LAB L100.1810 11.6-14.6 % Normal RDW CV 14.2 LAB L100.1820 35.1-43.9 fl High RDW SD 47.1 LAB L100.1900 150-450 K/mm3 Normal PLT 157 LAB L100.2000 6.2-12.0 fl Normal MPV 10.9 LAB L100.2100 47-70 % High NEUT% 92.6 LAB L100.2200 19-41 % Low LY% 2.8 LAB L100.2300 0-10 % Normal MONO% 2.3 LAB L100.2400 0-5 % Normal EO% 0.4 LAB L100.2500 0-1 % Normal BASO% 0.2 LAB L100.2550 0.0-0.9 % High IM GRAN % 1.700 Result Comment: IG% - Immature Granulocytes (promyelocytes, myelocytes and metamyelocytes) > 1% indicates that a LEFT SHIFT is Present. LAB L100.2620 2.0-7.7 X10 3/uL High Absolute Neut 9.5 LAB L100.2720 0.83-4.51 X10 3/ul Low Absolute Lymph 0.29 Performed By: #### L100.0100 #### [facility] [address] [place], [address] CHEST 1 VIEW Observed: 09/17/2017 Status: F Source: [place] (PORTABLE) 9:50 AM [facility] REPOSITORY [facility] Imaging Services [address] [place] [id number] Chest 1 View (Portable) MR#: [id number] Acct: [id number] Name: ELIZABETH HO Rep #: [id number] : 1950 F 67 From: Abe Alamo MD PCP: Williams Parekh MD Status: REG ER Study: Chest 1 View (Portable) Date of Exam: 09/17/17 Exam# [id number] Ordering Dr: Douglas Li MD STUDY: X-RAY CHEST REASON FOR EXAM: Female, 67 years old. Chest pain TECHNIQUE: Single view of the chest was obtained COMPARISON: January 04, 2017 FINDINGS: Cardiac size is enlarged. Mild perihilar congestive changes. Elevated right hemidiaphragm. A left pacemaker device is noted. Valvular prostheses. Calcified granuloma in the left lung. No pneumothorax. Redemonstration of prominent right hilar shadow similar to previous exam. IMPRESSION: Cardiomegaly with mild pulmonary vascular congestion. Overall lung findings have not significant changed since previous examination with subtle airspace opacities in the right lower lobe. Ill-defined nodular density in the right suprahilar region which can be assessed with follow-up chest radiograph in 3-4 months. Electronically Signed: Abe Alamo, at 10:20 EDT Tel , Service support , RAD/Chest 1 View (Portable) CC: DOUGLAS LI MD; Williams Parekh MD Porcelain Turner: Signed BASIC METABOLIC Collected: 09/17/2017 Status: F Source: [place] PROFILE (BMP) 9:50 AM [facility] REPOSITORY TYPE CODE TESTS RESULT OUT OF RANGE REFERENCE UNITS LAB L501.0100 74-106 mg/dL High GLU 307 Result Comment: Glucose result greater than or equal to 200 mg/dL suggests DIABETES MELLITUS per A.D.A. criteria. Please note revised GLUCOSE reference range effective 2017. LAB L501.1000 7-18 mg/dL High BUN 77 LAB L501.1100 0.55-1.02 mg/dL High CREAT,SERUM 2.02 Result Comment: The validity of the calculated GFR AND GFRAA in patients over 70 years has not been determined. Clinical correlation is essential. LAB L501.1110 >60 mL/min Low EST GFR 26 Result Comment: Non- GFR Calc LAB L501.1115 >60 mL/min Low EST GFR - AA 31 Result Comment: GFR Calc LAB L501.1255 ml/min Normal Estimated CRCL 24.61 LAB L501.1300 10-20 RATIO High BUN/CRE 38.1 LAB L501.2200 8.5-10 mg/dL Low .1 CA 8.3 LAB L501.5300 136-14 mmol/L Normal 5 NA 137 LAB L501.5600 3.5-5. mmol/L Normal 1 K 4.1 LAB L501.5900 98-107 mmol/L Normal CL 98 LAB L501.6100 21.0-3 mmol/L Normal 2.0 CO2 32.0 LAB L501.6200 5-15 Normal GAP 7 Performed By: #### L500.2500, L501.4010 #### [facility] [address] [place], [address] TROPONIN-I Collected: 09/17/2017 Status: F Source: [place] 9:50 AM [facility] REPOSITORY TYPE CODE TESTS RESULT OUT OF RANGE REFERENCE UNITS LAB L501.4010 <0.045 ng/mL Normal < 0.015 TROPONIN-I Result Comment: TROPONIN-I EXPECTED VALUES <0.045 Negative 0.045 - 0.590 Consistent with Cardiac Damage > OR = 0.600 Critical Value Not every elevated troponin is indicative of AZ. These values should be used with clinical judgement in examining the patient's clinical picture for diagnosis. To establish a diagnosis of AZ versus myocardial injury, there must be a demonstrated rise and/or fall in the troponin values, in addition to ischemic symptoms, EKG changes, new regional wall motion abnormality, and/or angiographical evidence. PLEASE NOTE: REFERENCE RANGES EDITED 17 Performed By: #### L500.2500, L501.4010 #### [facility] [address] [place], [address] BNP,B-TYPE NATRIURETIC Collected: 09/17/2017 Status: F Source: [place] PEPTIDE 9:50 AM [facility] REPOSITORY TYPE CODE TESTS RESULT OUT OF RANGE REFERENCE UNITS LAB L503.6620 0-100 pg/mL High B-TYPE 203.7 LILY PEP Performed By: #### L503.6620 #### [facility] [address] [place], [address] PROGRESS Observed: 09/13/2017 Status: COMPLETED Source: [place] 6:03 PM [facility] REPOSITORY HNO ID: [id number] Author: Ingris George MD Service: (none) Author Type: Physician Type: Progress Notes Filed: 09/14/2017 3:33 PM Note Text: [facility] Department of Cardiovascular Medicine SECTION OF INTERVENTIONAL CARDIOLOGY OUTPATIENT VISIT DATE September 13, 2017 OUTPATIENT VISIT TYPE ESTABLISHED PRIMARY CARE PHYSICIAN: Williams Parekh MD [address] [place] [address] CHIEF COMPLAINT: Patient presents with: CARD Follow Up Annual HISTORY OF PRESENT ILLNESS: Ms. Ho is a 67 year old female who presents today for follow- up visit re TAVR. PAST CARDIAC HISTORY: See HPI PAST MEDICAL HISTORY Diagnosis Date - Acute on chronic combined systolic and diastolic congestive heart failure (HCC) 03/20/2013 NICM by outside echo EF 35%, stage II diastolic dysfunction 03/19 RHC: CI by Gudelia 2.75, SVR 1129, PA 47/18, wedge 22 On admission 06/2013, clinically euvolaemic -not on ACEi/ARB currently with hx of renal dysfunction and severe -continue carvedilol -ICD in situ - Interrogate ICD to determine if decompensation is due to underlying arrhythmia (h/o VT/AF). Will need to call on Monday morning. - Decrease coreg to 3.125 mg BID. Attempted Hydralazine but patient did not tolerate due to hypotension on 07/06. - Slight bump in Cr 07/07 so decrease Lasix to 40 mg BID. Will continue Aldactone but will need to monitor CrCl. -Will need follow up labs- arranged for at SNF - Anemia 05/15/2013 Chronic anemia of unclear etiology. Received 2 units PRBC transfusion in April at OSH. Previous iron studies in our system suggestive of AoCD. Reports Colonoscopy/EGD ~ 2 years ago which did not show any major abnormalities. Presents with severe anemia in setting of supratherapeutic INR this admission. Denies BRBPR/melena but may have bleeding AVMs in the setting of severe . Also in setting of thrombocytopenia. Concern for DIC - fibrinogen negative -Received 6u PRBC since admission, stools melanotic Plan: - Monitor H/H, monitor coags/plts, check hemolysis labs as add-ons insufficient yesterday - NPO for possible EGD/Cscope today-> revealed polyps but bowel prep was inadequate, plan for capsule study 07/24/2013, NPO. ->capsule study neg for bleed. Pt needs elective colonoscopy as out pt to remove polyps. Recheck CBC next Monday. August 02. Fax results to DR George. - Aortic stenosis 03/20/2013 Progressive SOB on exertion, heart failure symptoms over the past 1 week preceding admission 07/05/2013. Known to have severe calcific tri-leaflet aortic valve stenosis. Denies chest pain, syncope, pre syncope. Echo: ALEX 0.81cm2, dimensionless index 0.23, pk/mn gradients 62/35 mmHg on 07/08/2013 Plan: - Planned for TF TAVR on 07/23/2013 - possibly delayed given likely GIB - Recently postponed due to UTI - will recheck UA and urine culture. Now postponed due to anemia. 07/26/2013 DC to SNF and return for TAVR at a later date. - Aortic valve disorders - Atrial fibrillation (HCC) - Atrial fibrillation (HCC) 04/02/2005 Currently NSR Plan: - Supratherapeutic INR on presentation, holding Warfarin - holding heparin given GIB and risks>benefits - on carvedilol - ICD in place - Atrial fibrillation ([facility]) 04/02/2005 H/o pAF on coumadin and amiodarone Warfarin was stopped last admission on 07/23 for severe anemia concerning for GI bleed Plan: - currently in NSR - c/w amiodarone - Monitor Hb - Back pain 03/21/2013 Right sided back, shoulder, and arm pain s/p fall 03/14 Now chronic pain. Cont PRN meds R shoulder blade tender to touch-> beside MS UTI contributing, started tx for UTI - Bursitis of left shoulder 05/15/2013 - Cellulitis of left leg 01/29/2010 [facility] ER 01/27/10 transferred to [facility] Dx: sepsis, afib, elevated INR - Chest pain, atypical 03/04/2014 Prior cath in 02/2013 had mild nonobstructive CAD. ACS possible but less likely. Already on ASA/plavix. Will cotninue. Hold on heparin gtt unless has further pain. First set of biomarkers were negative. Will continue to cycle tonight. IF positive will consider LHC today. If negative the patient is reluctant for any stress test so this will need to be considered. Other ddx such as PE or dissection less likely. No tachycardia or worsened SOB. CP resolved currently. Echo in the AM -cath 03-04 mild nonobstructive CAD; no indication for revascularization. - continued to have occ sharp chest pain ->LHC mild nonobstructive CAD best treated with medical management. Device check ruled OUT VT/VF. Echo showed Stephanie aortic valve well seated, pk/mn gradients . - Chronic anticoagulation Managed by Dr. See (cardiology; [facility]) - CKD (chronic kidney disease) stage 4, GFR 15-29 ml/min ([facility]) -On HD in 2009 for about 6-7 months, but has since improved to the point where she no longer requires it -stable Plan: - monitor renal function - avoid nephrotoxins - DM (diabetes mellitus) type II uncontrolled with renal manifestation Diabetes mellitus NIDDM - ESRD on hemodialysis ([facility]) Dr. Luo ([place]) - Failure to extubation 08/26/2013 Patient was extubated in OR after the procedure. She was noted to be agitated so she was put on CPAP with pressure of 5. She was re intubated around 1 pm for end tidal CO2 of 52. Currently on SIMV 14 FiO2 30% Peep 5 Plan Resolved Transferred to the floor 5-7 - GI bleed 08/26/2013 - Heart failure, systolic and diastolic, chronic ([facility]) 07/21/2013 NICM EF 45%, stage I diastolic dysfunction on most recent Echo 06/2013 On admission, clinically euvolemic Plan: - not currently on ACEi/ARB due to renal dysfunction - on carvedilol - continue spironolactone - hold Lasix 40mg PO BID until acute anemia addressed but will diurese with transfusions as needed - ICD in situ - Heart failure, systolic and diastolic, chronic ([facility]) 07/21/2013 NICM EF 45%, stage I diastolic dysfunction on most recent Echo 06/2013 On admission, clinically euvolemic Plan: - not currently on ACEi/ARB due to renal dysfunction - on carvedilol - continue spironolactone - hold Lasix 40mg PO BID until acute anemia addressed but will diurese with transfusions as needed - ICD in situ - Hives 07/29/2013 - Hyperlipidemia - Hypertension - Hypokalemia 03/20/2013 Monitor and replete prn to keep >4.0 - Hypomagnesemia 03/20/2013 Replete to keep >2.0 - Hypothyroidism 07/05/2013 - Leukocytosis 03/05/2014 No fever -WBC bumped up 12.55 -ordered u/a and culture-> UA suggests UTI urine cx pending, start Cipro. 03/07/2014 culture is pending, WBC decreased to 7.92 - Mechanical complication of other vascular device, implant, and graft 09/01/2010 - Morbid obesity (HCC) - Morbid obesity ([facility]) Nutrition consult - Muscular deconditioning 09/14/2013 - Non-ischemic cardiomyopathy (HCC) Cardiomyopathy--[place] - Paroxysmal ventricular tachycardia (HCC) 04/02/2005 H/o VT/TdP s/p ICD. S/p defibrillator firing on 03/15/13 in the context of hypokalemia. Electrically quiescent on admission 06/2013 Plan: Monitor lytes and replete prn - Peripheral vascular disease (HCC) - Pressure ulcer, other site(707.09) 07/07/2013 bilateral ischium stage II POA. Xenoderm per nursing. This was present on admission. cont wound care. Also bilateral heel pressure ulcers stage 1 poa - Rectus sheath hematoma 03/29/2013 3.8 cm rectus hematoma noted on CT scan Complaining of some fleeting nausea, no pain Monitor blood counts - Renal failure 05/07/2010 Renal status stable. Off dialysis - S/P TAVR (transcatheter aortic valve replacement) 09/14/2013 - Severe aortic stenosis 08/26/2013 S/p #26 ES TF-TAVR. Exam without murmurs of AI or progressive . Will check echo in the AM but no reason to suggest valvular malfunction. Cont ASA/plavix Echo EF 45%, Bond-Stephanie prosthetic aortic valve (size #26). The peak gradient is 30 mmHg and the mean gradient is 17 mmHg. S/P transcathetaer AVR ( Bond Stephanie # 26) with mild anterior AI (seen best in initial parasternal views. - Staphylococcal infection of skin lower sheen both, - STASIS DERMATITIS 12/26/2007 Chronic changes of both legs, no recent change per patient, Uses emollient to good effect at home, will continue - Thrombocytopenia (HCC) 07/26/2013 Anemia with thrombocytopenia that is resolving. - Thrombophlebitis arm 03/22/2013 Assessment: DARREL NOBLE PIV site from OSH now warm, red, and firm with purulent drainage -BC from OSH report MSSA -03/25 IANDD to left antecubital fossa Plan: - Continue oxacillin IV 2 gm q4 hrs - Anticipate CoPAT- (ordered placed for david catheter) - ID following - BC x2 redrawn 03/30: ID rec to keep oxacillin going for 6 weeks, will write COPAT. David placed. Will go to [facility] on Monday. - Torsades de pointes (HCC) 03/20/2013 -ICD in place received appropriate shocks on 03/14 Cont amiodarone Pacer check to ensure CP wasn't arrhythmia such as aborted VT-> device check no VT/VF - Type II or unspecified type diabetes mellitus without mention of complication, not stated as uncontrolled 01/10/2005 - Check HbA1C - Lantus and prandial lispro with SSI coverage - BS poorly controlled HD #1. Increased prandial insulin dosing and Lantus. 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 This was not quiroz induced this was REIN[employer]ING STEEL [employer]ER. Will discuss with ID - monitor for symptoms- > no symptoms, no fever and WBC WNL. Spoke with Dr. Shay from ID who said no signs/symptoms of UTI so would not treat with ATBs, they recommended remove quiroz-> but need urology to see pt first. Curbsided urology fellow who recommended removing quiroz, consult if difficulty difficulty voiding, then follow up with urology outpt at a later time. 07/24/[address] George due to upcoming valve procedure and + urine culture PAST SURGICAL HISTORY Procedure Laterality Date - APPENDECTOMY - AV FUSE, UPPR ARM, CEPHALIC 06-03-10 RIGHT UPPER ARM - LEFT HEART CATH,PERCUTANEOUS 05/27/1997 Cardiac cath, L heart AND R heart - MAMM DIAG UNI 2009 - REMOVAL SHARONA CVC W/O PUMP 09/01/10 Removal right IJ catheter - REMOVE CATARACT, INSERT LENS,EX - SIGMOIDOSCOPY FLEX DIAG 01/06/99 Sigmoidoscopy - TONSILLECTOMY HX - TOTAL ABDOM HYSTERECTOMY Hysterectomy, BERNARDA, BSO SOCIAL HISTORY Social History Substance Use Topics - Smoking status: Never Smoker - Smokeless tobacco: Never Used Comment: Parents non-smokers. - Alcohol use No FAMILY HISTORY Problem Relation Age of Onset - Heart Father - Stroke Father - cardiomyopathy [OTHER] Father - Stroke Maternal Grandmother - Heart Maternal Grandmother - Stroke Maternal Grandfather - Heart Maternal Grandfather - Stroke Paternal Grandmother - Heart Paternal Grandmother - Stroke Paternal Grandfather - Heart Paternal Grandfather - Heart Paternal Uncle ALLERGIES: ALLERGIES Allergen Reactions - Augmentin [Amoxicil* Rash - Sulfa (Sulfonamide * Hives - Vancomycin Anaphylaxis Per pharmacist. Patient tolerating PO Vancomycin. on 01/07 pt in [facility] and had ld syndrome rxn to [facility]. MEDICATIONS: blood sugar diagnostic (Simplicita SoftwareUCH ULTRA TEST) test strip before meals and at bedtime. Use as instructed metOLAzone (ZAROXOLYN) 5 mg tablet Take 0.5 tablets by mouth once daily. Taking Mondays and , 30 min prior to Lasix dose Insulin Aspart (NOVOLOG) 100 unit/mL crtg Inject subcutaneously 5 units with breakfast, 8 units with lunch, and 8 units with dinner dinner insulin glargine (LANTUS SOLOSTAR U-100 INSULIN) 100 unit/mL (3 mL) inpn Inject 42 Units subcutaneously once daily. levothyroxine (SYNTHROID) 75 mcg tablet Take 1 tablet by mouth every morning on an empty stomach For Thyroid warfarin (COUMADIN) 4 mg tablet 4mg Monday, 2 mg daily rest of the week. (Might change again since was decreased when INR up on antibiotic) Managed by Dr. See amiodarone (PACERONE) 200 mg tablet Take 1 tablet by mouth three times daily. Per hospital discharge 12/21/16 OXYGEN-AIR DELIVERY SYSTEMS (HIDEAWAY PULSEDOSE OXYGEN SYST MISC) Overnight pulse Ox check 327.24 Nocturnal hypoxemia, and Daytime as needed COMPOUNDED PRESCRIPTION Paper Tape. 2 . furosemide (LASIX) 40 mg tablet Take 1 tablet by mouth twice daily. spironolactone (ALDACTONE) 25 mg tablet Take 1 tablet by mouth once daily. docusate sodium (COLACE) 100 mg capsule Take 1 capsule by mouth twice daily as needed for Constipation. atorvastatin (LIPITOR) 40 mg tablet Take 40 mg by mouth once daily. carvedilol 3.125 mg tablet Take 1 tablet by mouth twice daily with meals. Lancets (ONE TOUCH DELICA) lancets Test 4 times daily 250.02, insulin dep acetaminophen (TYLENOL EXTRA STRENGTH) 500 mg ORAL tablet Take 500 mg by mouth every 4 hours as needed. ASPIRIN 81 MG ORAL TAB Take one (1) tablet daily . REVIEW OF SYSTEMS: GENERAL: Negative for: Weight loss or gain, Fever or Chills, Weakness and Sleep difficulties. HEENT: Negative for: Headache, Impaired Vision, Glasses, Hearing Impairment, Ringing in Ears, Nosebleeds, Poor dental care, Bleeding Gums, Dentures NECK: Negative for: Swelling, Pain, Stiffness RESPIRATORY: Negative for: Cough, Blood in Sputum, Shortness of breath, Wheezing, Apnea GASTROINTESTINAL: Negative for: Trouble swallowing, Heartburn, Change in bowel habits, Blood in stool, Dark black stools MUSCULOSKELETAL: Negative for: Muscle or joint pain, Stiffness , Joint swelling NEUROLOGIC/PSYCHIATRIC: Negative for: Weakness, Paralysis, Numbness, Tingling, Tremor, Nervousness, Depressed mood, Memory loss SKIN: Negative for: Rashes, Itching HEMATOLOGICAL/LYMPHATIC: Negative for: Easy bruising , Easy bleeding ENDOCRINE: Negative for: Heat or cold intolerance, Excessive sweating, Frequent urination, Frequent thirst PHYSICAL EXAMINATION: BP 131/61 Pulse 62 Resp 14 Ht 5' 6 (1.68m) Wt 206 lb (93.4kg) SpO2 97% BMI 33.27 kg/(m2). General: Well appearing, in no acute distress, speaking in complete sentences. Skin: No clubbing, no cyanosis. Head/Eyes: Extra ocular movements intact Mouth: Teeth in good repair. Neck: JVP 8-10cm, no carotid bruits, carotids have a normal upstroke, no palpable thyromegaly. Lungs: mild crackles bilat bases Heart: Regular rhythm, PMI not displaced, S1, S2 normal, no S3, no S4, no heaves, no rub and no murmur. PV Pulses:Pulses intact Abdomen: Soft, nontender, bowel sounds normal, no palpable organomegaly, no bruits. Extremities: No peripheral edema . Grade 2/4 distal pulses bilaterally. Edema Scale: No Musculoskeletal: Normal gait and ambulation Neuro: Oriented to time, place and person My pleasure to see Ms. Ho today in follow up regarding diastolic heart failure and TAVR. For full details, please see my prior clinic notes. In brief, we did TAVR for Ms. Ho on August 26, 2014. She had a rough fall because of rapid atrial fibrillation and congestive heart failure in the setting of discontinuation of her diuretic therapies. She is now on a more stable regimen and rehabilitating well. I reviewed an echocardiogram performed by her primary biofuels product manager in June that demonstrates a normal ejection fraction of 55% with a well seated TAVR prosthetic with trivial aortic regurgitation and peak and mean gradients of 20/10mmHg. There is chronic severe mitral stenosis with peak and mean gradients of 24/12mmHg. Physical examination is as above ASSESSMENT AND PLAN: Again my pleasure to see Ms. Ho today regarding TAVR and heart failure. Overall I think she is doing reasonably well and she is rehabilitating. She is a little volume overloaded on exam and my increase frequency of her Metolazone for the next couple of weeks from twice weekly to three times weekly but I would like to first check her basic metabolic panel to make sure her CKD is stable. I will give her a call with the results. I would like to follow up with her on an annual basis. She is welcome to have her echocardiogram either with her primary biofuels product manager or with me as long as she gets one yearly. Addendum Take Metolazone 3X/week for the next 2 weeks then go back to 2X/week PROTHROMBIN TIME W/INR Collected: 09/11/2017 Status: F Source: [place] 10:10 AM [facility] REPOSITORY TYPE CODE TESTS RESULT OUT OF RANGE REFERENCE UNITS LAB L300.4150 11.7-14.9 SECONDS High PROTIME 29.1 LAB L300.4200 Normal INR 2.7 Performed By: #### L300.3900 #### [facility] [address] [place], [address] BASIC METABOLIC PANL Collected: 09/07/2017 Status: F Source: [place] 2:[address] [facility] REPOSITORY TYPE CODE TESTS RESULT OUT OF REFERENCE UNITS RANGE LAB GLU 74-99 mg/dL Glucose 89 Result Comment: The [place] Diabetes Association (ADA) provides guidance for cutoff values for fasting glucose and random glucose. The ADA defines fasting as no caloric intake for at least 8 hours. Fas ting plasma glucose results between 100 to 125 mg/dL indicate increased risk for diabetes (prediabetes). Fasting plasma glucose results greater than or equal to 126 mg/dL meet the criteria for diagnosis of diabetes. In the absence of unequivocal hyperglycemia, results should be confirmed by repeat testing. In a patient with classic symptoms of hyperglycemia or hyperglycemic crisis, random plasma glucose results greater than or equal to 200 mg/dL meet the criteria for diagnosis of diabetes. Reference: Standards of Medical Care in Diabetes 2016, [place] Diabetes Association. Diabetes Care. 2016.39(Suppl 1). LAB BUN 7-21 mg/dL BUN High 70 LAB CRET 0.58-0.96 mg/dL Creatinine High 1.76 LAB NA 136-144 mmol/L Sodium 142 LAB K 3.7-5.1 mmol/L Potassium 3.9 LAB CL 97-105 mmol/L Low Chloride 96 LAB CO2 22-30 mmol/L CO2 High 33 LAB AGAP 9-18 mmol/L Anion Gap 13 LAB CA 8.5-10.2 mg/dL Calcium, Total 9.6 LAB GFRAA eGFR- Amer. 35 LAB GFRNAA . eGFR-All Other Races 29 Result Comment: eGFR (Estimated GFR) Units of measure: mL/min/1.73 meters squared eGFR is derived from the reexpressed MDRD Study equation using the following parameters: serum creatinine, age, gender and race. The creatinine assay has been calibrated to be traceable to IDMS. An eGFR <60 mL/min/1.73m2 for >3 months is consistent with chronic kidney disease. Refer to KDOQI guidelines for clinical interpretation. In patients with unstable renal function, e.g. those with acute kidney injury, the eGFR may not accurately reflect actual GFR. Performed By: #### MARIO NTBNP #### [facility] 2CODE Online [address] [place], [place] [address] NT PRO BNP Collected: 09/07/2017 Status: F Source: [place] 2:[address] [facility] REPOSITORY TYPE CODE TESTS RESULT OUT OF REFERENCE UNITS RANGE LAB PBNP <125 pg/mL High PRO B Natr 2697 Peptide Performed By: #### BMP, NTBNP #### [facility] Online [address] [place], [place] [address] CNOV Observed: 09/07/2017 Status: COMPLETED Source: [place] 1:15 PM [facility] REPOSITORY Office Visit (CATHMN) ELIZABETH HO ([id number]) 1950 F Date Time Provider Department 09/07/17 1:15 PM INGRIS GEORGE During your visit today, we recorded the following information about you: Pulse Respiration Blood pressure Weight 62/minute 14/minute 131/61 93.4 kg Height 1.676 m Ingris George MD, MD 09/14/2017 3:33 PM Signed [facility] [place] [facility] Department of Cardiovascular Medicine SECTION OF INTERVENTIONAL CARDIOLOGY OUTPATIENT VISIT DATE September 13, 2017 OUTPATIENT VISIT TYPE ESTABLISHED PRIMARY CARE PHYSICIAN: Williams Parekh MD [address] [place] [address] CHIEF COMPLAINT: Patient presents with: CARD Follow Up Annual HISTORY OF PRESENT ILLNESS: Ms. Ho is a 67 year old female who presents today for follow- up visit re TAVR. PAST CARDIAC HISTORY: See HPI PAST MEDICAL HISTORY Diagnosis Date - Acute on chronic combined systolic and diastolic congestive heart failure (HCC) 03/20/2013 NICM by outside echo EF 35%, stage II diastolic dysfunction 03/19 RHC: CI by Gudelia 2.75, SVR 1129, PA 47/18, wedge 22 On admission 06/2013, clinically euvolaemic -not on ACEi/ARB currently with hx of renal dysfunction and severe -continue carvedilol -ICD in situ - Interrogate ICD to determine if decompensation is due to underlying arrhythmia (h/o VT/AF). Will need to call on Monday morning. - Decrease coreg to 3.125 mg BID. Attempted Hydralazine but patient did not tolerate due to hypotension on 07/06. - Slight bump in Cr 07/07 so decrease Lasix to 40 mg BID. Will continue Aldactone but will need to monitor CrCl. -Will need follow up labs- arranged for at SNF - Anemia 05/15/2013 Chronic anemia of unclear etiology. Received 2 units PRBC transfusion in April at OSH. Previous iron studies in our system suggestive of AoCD. Reports Colonoscopy/EGD ~ 2 years ago which did not show any major abnormalities. Presents with severe anemia in setting of supratherapeutic INR this admission. Denies BRBPR/melena but may have bleeding AVMs in the setting of severe . Also in setting of thrombocytopenia. Concern for DIC - fibrinogen negative -Received 6u PRBC since admission, stools melanotic Plan: - Monitor H/H, monitor coags/plts, check hemolysis labs as add-ons insufficient yesterday - NPO for possible EGD/Cscope today-> revealed polyps but bowel prep was inadequate, plan for capsule study 07/24/2013, NPO. ->capsule study neg for bleed. Pt needs elective colonoscopy as out pt to remove polyps. Recheck CBC next Monday. August 02. Fax results to DR George. - Aortic stenosis 03/20/2013 Progressive SOB on exertion, heart failure symptoms over the past 1 week preceding admission 07/05/2013. Known to have severe calcific tri-leaflet aortic valve stenosis. Denies chest pain, syncope, pre syncope. Echo: ALEX 0.81cm2, dimensionless index 0.23, pk/mn gradients 62/35 mmHg on 07/08/2013 Plan: - Planned for TF TAVR on 07/23/2013 - possibly delayed given likely GIB - Recently postponed due to UTI - will recheck UA and urine culture. Now postponed due to anemia. 07/26/2013 DC to SNF and return for TAVR at a later date. - Aortic valve disorders - Atrial fibrillation (HCC) - Atrial fibrillation (HCC) 04/02/2005 Currently NSR Plan: - Supratherapeutic INR on presentation, holding Warfarin - holding heparin given GIB and risks>benefits - on carvedilol - ICD in place - Atrial fibrillation (HCC) 04/02/2005 H/o pAF on coumadin and amiodarone Warfarin was stopped last admission on 07/23 for severe anemia concerning for GI bleed Plan: - currently in NSR - c/w amiodarone - Monitor Hb - Back pain 03/21/2013 Right sided back, shoulder, and arm pain s/p fall 03/14 Now chronic pain. Cont PRN meds R shoulder blade tender to touch-> beside MS UTI contributing, started tx for UTI - Bursitis of left shoulder 05/15/2013 - Cellulitis of left leg 01/29/2010 [facility] ER 01/27/10 transferred to [facility] Dx: sepsis, afib, elevated INR - Chest pain, atypical 03/04/2014 Prior cath in 02/2013 had mild nonobstructive CAD. ACS possible but less likely. Already on ASA/plavix. Will cotninue. Hold on heparin gtt unless has further pain. First set of biomarkers were negative. Will continue to cycle tonight. IF positive will consider LHC today. If negative the patient is reluctant for any stress test so this will need to be considered. Other ddx such as PE or dissection less likely. No tachycardia or worsened SOB. CP resolved currently. Echo in the AM -cath 03-04 mild nonobstructive CAD; no indication for revascularization. -continued to have occ sharp chest pain ->LHC mild nonobstructive CAD best treated with medical management. Device check ruled OUT VT/VF. Echo showed Stephanie aortic valve well seated, pk/mn gradients . - Chronic anticoagulation Managed by Dr. See (cardiology; [facility]) - CKD (chronic kidney disease) stage 4, GFR 15-29 ml/min ([facility]) -On HD in 2009 for about 6-7 months, but has since improved to the point where she no longer requires it -stable Plan: - monitor renal function - avoid nephrotoxins - DM (diabetes mellitus) type II uncontrolled with renal manifestation Diabetes mellitus NIDDM - ESRD on hemodialysis ([facility]) Dr. Luo ([place]) - Failure to extubation 08/26/2013 Patient was extubated in OR after the procedure. She was noted to be agitated so she was put on CPAP with pressure of 5. She was re intubated around 1 pm for end tidal CO2 of 52. Currently on SIMV 14 FiO2 30% Peep 5 Plan Resolved Transferred to the floor 5-7 - GI bleed 08/26/2013 - Heart failure, systolic and diastolic, chronic ([facility]) 07/21/2013 NICM EF 45%, stage I diastolic dysfunction on most recent Echo 06/2013 On admission, clinically euvolemic Plan: - not currently on ACEi/ARB due to renal dysfunction - on carvedilol - continue spironolactone - hold Lasix 40mg PO BID until acute anemia addressed but will diurese with transfusions as needed - ICD in situ - Heart failure, systolic and diastolic, chronic (HCC) 07/21/2013 NICM EF 45%, stage I diastolic dysfunction on most recent Echo 06/2013 On admission, clinically euvolemic Plan: - not currently on ACEi/ARB due to renal dysfunction - on carvedilol - continue spironolactone - hold Lasix 40mg PO BID until acute anemia addressed but will diurese with transfusions as needed - ICD in situ - Hives 07/29/2013 - Hyperlipidemia - Hypertension - Hypokalemia 03/20/2013 Monitor and replete prn to keep >4.0 - Hypomagnesemia 03/20/2013 Replete to keep >2.0 - Hypothyroidism 07/05/2013 - Leukocytosis 03/05/2014 No fever -WBC bumped up 12.55 -ordered u/a and culture-> UA suggests UTI urine cx pending, start Cipro. 03/07/2014 culture is pending, WBC decreased to 7.92 - Mechanical complication of other vascular device, implant, and graft 09/01/2010 - Morbid obesity ([facility]) - Morbid obesity ([facility]) Nutrition consult - Muscular deconditioning 09/14/2013 - Non-ischemic cardiomyopathy (HCC) Cardiomyopathy--[place] - Paroxysmal ventricular tachycardia ([facility]) 04/02/2005 H/o VT/TdP s/p ICD. S/p defibrillator firing on 03/15/13 in the context of hypokalemia. Electrically quiescent on admission 06/2013 Plan: Monitor lytes and replete prn - Peripheral vascular disease (HCC) - Pressure ulcer, other site(707.09) 07/07/2013 bilateral ischium stage II POA. Xenoderm per nursing. This was present on admission. cont wound care. Also bilateral heel pressure ulcers stage 1 poa - Rectus sheath hematoma 03/29/2013 3.8 cm rectus hematoma noted on CT scan Complaining of some fleeting nausea, no pain Monitor blood counts - Renal failure 05/07/2010 Renal status stable. Off dialysis - S/P TAVR (transcatheter aortic valve replacement) 09/14/2013 - Severe aortic stenosis 08/26/2013 S/p #26 ES TF-TAVR. Exam without murmurs of AI or progressive . Will check echo in the AM but no reason to suggest valvular malfunction. Cont ASA/plavix Echo EF 45%, Bond-Stephanie prosthetic aortic valve (size #26). The peak gradient is 30 mmHg and the mean gradient is 17 mmHg. S/P transcathetaer AVR ( Bond Stephanie # 26) with mild anterior AI (seen best in initial parasternal views. - Staphylococcal infection of skin lower sheen both, - STASIS DERMATITIS 12/26/2007 Chronic changes of both legs, no recent change per patient, Uses emollient to good effect at home, will continue - Thrombocytopenia (HCC) 07/26/2013 Anemia with thrombocytopenia that is resolving. - Thrombophlebitis arm 03/22/2013 Assessment: DARREL NOBLE PIV site from OSH now warm, red, and firm with purulent drainage -BC from OSH report MSSA -03/25 IANDD to left antecubital fossa Plan: - Continue oxacillin IV 2 gm q4 hrs - Anticipate CoPAT- (ordered placed for david catheter) - ID following - BC x2 redrawn 03/30: ID rec to keep oxacillin going for 6 weeks, will write COPAT. David placed. Will go to [facility] on Monday. - Torsades de pointes (HCC) 03/20/2013 -ICD in place received appropriate shocks on 03/14 Cont amiodarone Pacer check to ensure CP wasn't arrhythmia such as aborted VT-> device check no VT/VF - Type II or unspecified type diabetes mellitus without mention of complication, not stated as uncontrolled 01/10/2005 - Check HbA1C - Lantus and prandial lispro with SSI coverage - BS poorly controlled HD #1. Increased prandial insulin dosing and Lantus. 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 This was not quiroz induced this was REINFORCING STEEL PLACER. Will discuss with ID - monitor for symptoms- > no symptoms, no fever and WBC WNL. Spoke with Dr. Shay from ID who said no signs/symptoms of UTI so would not treat with ATBs, they recommended remove quiroz-> but need urology to see pt first. Curbsided urology fellow who recommended removing quiroz, consult if difficulty difficulty voiding, then follow up with urology outpt at a later time. 07/24/[address] George due to upcoming valve procedure and + urine culture PAST SURGICAL HISTORY Procedure Laterality Date - APPENDECTOMY - AV FUSE, UPPR ARM, CEPHALIC 06-03-10 RIGHT UPPER ARM - LEFT HEART CATH,PERCUTANEOUS 05/27/1997 Cardiac cath, L heart AND R heart - MAMM DIAG 2009 - REMOVAL SHARONA CVC W/O PUMP 09/01/10 Removal right IJ catheter - REMOVE CATARACT, INSERT LENS,EX - SIGMOIDOSCOPY FLEX DIAG 01/06/99 Sigmoidoscopy - TONSILLECTOMY HX - TOTAL ABDOM HYSTERECTOMY Hysterectomy, BERNARDA, BSO SOCIAL HISTORY Social History Substance Use Topics - Smoking status: Never Smoker - Smokeless tobacco: Never Used Comment: Parents non-smokers. - Alcohol use No FAMILY HISTORY Problem Relation Age of Onset - Heart Father - Stroke Father - cardiomyopathy [OTHER] Father - Stroke Maternal Grandmother - Heart Maternal Grandmother - Stroke Maternal Grandfather - Heart Maternal Grandfather - Stroke Paternal Grandmother - Heart Paternal Grandmother - Stroke Paternal Grandfather - Heart Paternal Grandfather - Heart Paternal Uncle ALLERGIES: ALLERGIES Allergen Reactions - Augmentin [Amoxicil* Rash - Sulfa (Sulfonamide * Hives - Vancomycin Anaphylaxis Per pharmacist. Patient tolerating PO Vancomycin. on 01/07 pt in [facility] and had ld syndrome rxn to [facility]. MEDICATIONS: blood sugar diagnostic (Simplicita SoftwareUCH ULTRA TEST) test strip before meals and at bedtime. Use as instructed metOLAzone (ZAROXOLYN) 5 mg tablet Take 0.5 tablets by mouth once daily. Taking Mondays and , 30 min prior to Lasix dose Insulin Aspart (NOVOLOG) 100 unit/mL crtg Inject subcutaneously 5 units with breakfast, 8 units with lunch, and 8 units with dinner dinner insulin glargine (LANTUS SOLOSTAR U-100 INSULIN) 100 unit/mL (3 mL) inpn Inject 42 Units subcutaneously once daily. levothyroxine (SYNTHROID) 75 mcg tablet Take 1 tablet by mouth every morning on an empty stomach For Thyroid warfarin (COUMADIN) 4 mg tablet 4mg Monday, 2 mg daily rest of the week. (Might change again since was decreased when INR up on antibiotic) Managed by Dr. See amiodarone (PACERONE) 200 mg tablet Take 1 tablet by mouth three times daily. Per hospital discharge 12/21/16 OXYGEN-AIR DELIVERY SYSTEMS (HIDEAWAY PULSEDOSE OXYGEN SYST MISC) Overnight pulse Ox check 327.24 Nocturnal hypoxemia, and Daytime as needed COMPOUNDED PRESCRIPTION Paper Tape. 2 . furosemide (LASIX) 40 mg tablet Take 1 tablet by mouth twice daily. spironolactone (ALDACTONE) 25 mg tablet Take 1 tablet by mouth once daily. docusate sodium (COLACE) 100 mg capsule Take 1 capsule by mouth twice daily as needed for Constipation. atorvastatin (LIPITOR) 40 mg tablet Take 40 mg by mouth once daily. carvedilol 3.125 mg tablet Take 1 tablet by mouth twice daily with meals. Lancets (ONE TOUCH DELICA) lancets Test 4 times daily 250.02, insulin dep acetaminophen (TYLENOL EXTRA STRENGTH) 500 mg ORAL tablet Take 500 mg by mouth every 4 hours as needed. ASPIRIN 81 MG ORAL TAB Take one (1) tablet daily . REVIEW OF SYSTEMS: GENERAL: Negative for: Weight loss or gain, Fever or Chills, Weakness and Sleep difficulties. HEENT: Negative for: Headache, Impaired Vision, Glasses, Hearing Impairment, Ringing in Ears, Nosebleeds, Poor dental care, Bleeding Gums, Dentures NECK: Negative for: Swelling, Pain, Stiffness RESPIRATORY: Negative for: Cough, Blood in Sputum, Shortness of breath, Wheezing, Apnea GASTROINTESTINAL: Negative for: Trouble swallowing, Heartburn, Change in bowel habits, Blood in stool, Dark black stools MUSCULOSKELETAL: Negative for: Muscle or joint pain, Stiffness , Joint swelling NEUROLOGIC/PSYCHIATRIC: Negative for: Weakness, Paralysis, Numbness, Tingling, Tremor, Nervousness, Depressed mood, Memory loss SKIN: Negative for: Rashes, Itching HEMATOLOGICAL/LYMPHATIC: Negative for: Easy bruising , Easy bleeding ENDOCRINE: Negative for: Heat or cold intolerance, Excessive sweating, Frequent urination, Frequent thirst PHYSICAL EXAMINATION: BP 131/61 Pulse 62 Resp 14 Ht 5' 6 (1.68m) Wt 206 lb (93.4kg) SpO2 97% BMI 33.27 kg/(m2). General: Well appearing, in no acute distress, speaking in complete sentences. Skin: No clubbing, no cyanosis. Head/Eyes: Extra ocular movements intact Mouth: Teeth in good repair. Neck: JVP 8-10cm, no carotid bruits, carotids have a normal upstroke, no palpable thyromegaly. Lungs: mild crackles bilat bases Heart: Regular rhythm, PMI not displaced, S1, S2 normal, no S3, no S4, no heaves, no rub and no murmur. PV Pulses:Pulses intact Abdomen: Soft, nontender, bowel sounds normal, no palpable organomegaly, no bruits. Extremities: No peripheral edema . Grade 2/4 distal pulses bilaterally. Edema Scale: No Musculoskeletal: Normal gait and ambulation Neuro: Oriented to time, place and person My pleasure to see Ms. Ho today in follow up regarding diastolic heart failure and TAVR. For full details, please see my prior clinic notes. In brief, we did TAVR for Ms. Ho on August 26, 2014. She had a rough fall because of rapid atrial fibrillation and congestive heart failure in the setting of discontinuation of her diuretic therapies. She is now on a more stable regimen and rehabilitating well. I reviewed an echocardiogram performed by her primary biofuels product manager in June that demonstrates a normal ejection fraction of 55% with a well seated TAVR prosthetic with trivial aortic regurgitation and peak and mean gradients of 20/10mmHg. There is chronic severe mitral stenosis with peak and mean gradients of 24/12mmHg. Physical examination is as above ASSESSMENT AND PLAN: Again my pleasure to see Ms. Ho today regarding TAVR and heart failure. Overall I think she is doing reasonably well and she is rehabilitating. She is a little volume overloaded on exam and my increase frequency of her Metolazone for the next couple of weeks from twice weekly to three times weekly but I would like to first check her basic metabolic panel to make sure her CKD is stable. I will give her a call with the results. I would like to follow up with her on an annual basis. She is welcome to have her echocardiogram either with her primary biofuels product manager or with me as long as she gets one yearly. Addendum Take Metolazone 3X/week for the next 2 weeks then go back to 2X/week Referring Provider: INGRIS GEORGE [[id number]] Allergies As of Date: 09/07/2017 Noted Allergy Reaction AUGMENTIN (AMOXICILLIN-POT CLAVUL*2013 2 - Rash SULFA (SULFONAMIDE ANTIBIOTICS) 01/10/2005 4 - Hives VANCOMYCIN 08/26/2013 10 - Anaphylaxis Comments: Per pharmacist. Patient tolerating PO Vancomycin. on 01/07 pt in [facility] and had ld syndrome rxn to [facility] IV. Date Reviewed: 09/07/2017 Reviewed by: Tere Coleman (Kaveh) [place] - Fully Assessed Reason for Visit: CARD Follow Up Annual [1232] Primary Visit Diagnosis:Acute on chronic diastolic congestive heart failure (HCC) [I50.33] Other Visit Diagnoses:Paroxysmal atrial fibrillation (HCC) [I48.0] Non-rheumatic mitral valve stenosis [I34.2] S/P TAVR (transcatheter aortic valve replacement) [Z95.2] Order(s):metOLAzone (ZAROXOLYN) 5 mg tabletTake 0.5 tablets by mouth once daily. Taking Mondays and , 30 min prior to Lasix doseDisp: Rfl: BASIC METABOLIC PNL [SQBMP] Order #: [id number] FUTURE NT PRO BNP [SQNTBNP] Order #: [id number] FUTURE Prescriptions as of 09/07/2017 Sig: BLOOD SUGAR DIAGNOSTIC STRIPS before meals and at bedtime. * METOLAZONE 5 MG TABLET Take 0.5 tablets by mouth onc* INSULIN ASPART U-100 100 UNI* Inject subcutaneously 5 units* INSULIN GLARGINE (U-100) 100 * Inject 42 Units subcutaneousl* LEVOTHYROXINE 75 MCG TABLET Take 1 tablet by mouth every * WARFARIN 4 MG TABLET 4mg Monday, 2 mg daily rest o* AMIODARONE 200 MG TABLET Take 1 tablet by mouth three * HIDEAWAY PULSEDOSE OXYGEN SYS* Overnight pulse Ox check 327.* COMPOUNDED PRESCRIPTION Paper Tape. 2 . FUROSEMIDE 40 MG TABLET Take 1 tablet by mouth twice * SPIRONOLACTONE 25 MG TABLET Take 1 tablet by mouth once d* DOCUSATE SODIUM 100 MG CAPSULE Take 1 capsule by mouth twice* ATORVASTATIN 40 MG TABLET Take 40 mg by mouth once fernando* CARVEDILOL 3.125 MG TABLET Take 1 tablet by mouth twice * * LANCETS Test 4 times daily 250.02, in* * ACETAMINOPHEN 500 MG TABLET Take 500 mg by mouth every 4 * * ASPIRIN 81 MG TABLET Take one (1) tablet daily . Problem List As Of Date 09/07/2017 Noted Resolved Other and unspecified hyperlipidemia [E78.5] Priority: J More... Non morbid obesity due to excess calories [E66.* Priority: K More... More... More... Paroxysmal ventricular tachycardia [I47.2] INVALID FOR* Priority: D More... EDEMA [R60.9] INVALID FOR* Venous (peripheral) insufficiency [I87.2] INVALID FOR* More... Other malaise and fatigue [R53.81, R53.83] INVALID FOR*11/29/2010 Cellulitis of left leg [L03.116] INVALID FOR*02/16/2017 More... More... Dialysis patient [Z99.2] INVALID FOR*04/18/2013 More... CKD (chronic kidney disease) stage 4, GFR 15-29* Priority: E More... Varicose veins of lower extremities with ulcer *INVALID FOR* Vitamin D deficiency [E55.9] INVALID FOR* More... Secondary hyperparathyroidism [N25.81] INVALID FOR* CAD (coronary artery disease), [place] coronary *INVALID FOR* Priority: F More... More... Torsades de pointes (HCC) [I47.2] INVALID FOR*08/21/2017 Priority: B More... Aortic stenosis [I35.0] INVALID FOR* Priority: B More... Mitral stenosis [I05.0] INVALID FOR* Priority: D More... More... More... More... More... On home O2 [Z99.81] INVALID FOR* Priority: K More... Elevated bilirubin [R17] INVALID FOR*03/23/2013 More... More... More... PVD (peripheral vascular disease) [I73.9] INVALID FOR* Priority: K More... More... More... More... Anemia [D64.9] INVALID FOR* Priority: B More... Bursitis of left shoulder [M75.52] INVALID FOR*02/16/2017 Urinary incontinence [R32] INVALID FOR* Priority: D More... More... Pressure ulcer, other site(707.09) [L89.899] INVALID FOR*02/16/2017 Priority: L More... More... More... Implantable cardioverter-defibrillator (ICD) in*INVALID FOR* More... More... DVT prophylaxis [LDB6538] INVALID FOR* More... Thrombocytopenia (HCC) [D69.6] INVALID FOR*08/21/2017 More... More... Constipation [K59.00] INVALID FOR* Anticoagulated on Coumadin [Z51.81, Z79.01] INVALID FOR*10/11/2013 Severe aortic stenosis [I35.0] INVALID FOR*01/19/2017 Priority: A More... CHF (congestive heart failure), NYHA class III *INVALID FOR* Priority: B More... More... C. difficile diarrhea [A04.72] INVALID FOR*10/11/2013 More... Gout, arthritis [M10.9] INVALID FOR* More... Leukocytosis [D72.829] INVALID FOR*02/16/2017 Priority: B More... 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 Gait instability [R26.81] INVALID FOR* More... PAF (paroxysmal atrial fibrillation) (HCC) [I48*INVALID FOR* Diabetes mellitus (HCC) [E11.9] INVALID FOR* Prescriptions ordered this encounter Disp Refills Start End METOLAZONE 5 MG TABLET 09/07/2017 Class: Med Update Route: ORAL Sig: Take 0.5 tablets by mouth once daily. Taking Mondays and , 30 min prior to Lasix dose Medications Discontinued During This Encounter BD INSULIN PEN NEEDLE UF 31 gauge x * 100 * 11 03/30/2017 09/07/2017 Sig: USE WITH INSULIN PEN FOUR TIMES DAILY Disc: Discontinued by another Health Care Provider blood sugar diagnostic (ONE TOUCH UL* 150 * 11 12/28/2011 09/07/2017 Sig: (TEST 4x DAILY, 250.02) insulin dep uncontrolled Disc: Discontinued by another Health Care Provider nystatin (MYCOSTATIN) cream 60 g 1 08/30/2016 09/07/2017 Route: TOPICAL Sig: Apply 1 application to affected area twice daily. Continue for 1 week after rash resolves Disc: Course of therapy completed triamcinolone acetonide (KENALOG) 0.* 45 g 0 08/30/2016 09/07/2017 Route: TOPICAL Sig: Apply 1 application to affected area twice daily. Apply sparingly to area for rash/itching. Use until rash and itching resolves Disc: Course of therapy completed metOLAzone (ZAROXOLYN) 5 mg tablet 06/15/2015 09/07/2017 Class: Med Update Route: ORAL Sig: Take 0.5 tablets by mouth once daily. Every other day Disc: Reason for discontinue is not on file. Encounter Status:Closed by INGRIS GEORGE MD on 09/14/17 CNCO Observed: 09/07/2017 Status: COMPLETED Source: [place] 12:[address] [facility] REPOSITORY Letter Text Lashaun Fernando Department of Cardiovascular Medicine [address] [place], [place] [id number] Office: [phone] September 07, 2017 Elizabeth Ho [address] [place] [address] NAME: Elizabeth Ho [facility] NO: [id number] DATE OF SERVICE: 09/07/2017 My pleasure to see Ms. Ho today in follow up regarding diastolic heart failure and TAVR. For full details, please see my prior clinic notes. In brief, we did TAVR for Ms. Ho on August 26, 2014. She had a rough fall because of rapid atrial fibrillation and congestive heart failure in the setting of discontinuation of her diuretic therapies. She is now on a more stable regimen and rehabilitating well. I reviewed an echocardiogram performed by her primary biofuels product manager in June that demonstrates a normal ejection fraction of 55% with a well seated TAVR prosthetic with trivial aortic regurgitation and peak and mean gradients of 20/10mmHg. There is chronic severe mitral stenosis with peak and mean gradients of 24/12mmHg. Physical examination is as above ASSESSMENT AND PLAN: Again my pleasure to see Ms. Ho today regarding TAVR and heart failure. Overall I think she is doing reasonably well and she is rehabilitating. She is a little volume overloaded on exam and my increase frequency of her Metolazone for the next couple of weeks from twice weekly to three times weekly but I would like to first check her basic metabolic panel to make sure her CKD is stable. I will give her a call with the results. I would like to follow up with her on an annual basis. She is welcome to have her echocardiogram either with her primary biofuels product manager or with me as long as she gets one yearly. Please feel free to contact me with any questions. Addendum Take Metolazone 3X/week for the next 2 weeks then go back to 2X/week Sincerely yours, Ingris George MD AK/ph PROTHROMBIN TIME W/INR Collected: 09/04/2017 Status: F Source: [place] 11:13 [facility] REPOSITORY TYPE CODE TESTS RESULT OUT OF RANGE REFERENCE UNITS LAB L300.4150 11.7-14.9 SECONDS High PROTIME 34.9 LAB L300.4200 Normal INR 3.4 Performed By: #### L300.3900 #### [facility] [address] [facility] [place], [place], [address] HEMOGLOBIN A1C Collected: 09/04/2017 Status: F Source: [place] 11:13 AM [facility] REPOSITORY Order Comment: SEND RESULTS TO . TYPE CODE TESTS RESULT OUT OF RANGE REFERENCE UNITS LAB L501.9985 4.2-6.3 % High HGB A1C 6.5 Performed By: #### L501.9985 #### [facility] [address] [place], [address] VITAMIN D,25 HYDROXY Collected: 09/04/2017 Status: F Source: [place] 11:13 AM [facility] REPOSITORY Order Comment: SEND RESULTS TO . TYPE CODE TESTS RESULT OUT OF REFERENCE UNITS RANGE LAB L506.1000 29.95-100.01 ng/mL Low Vitamin D 18.6 25-OH Result Comment: Vitamin D 25(OH) Status Range Deficiency <20 ng/mL (50nmol/L) Insuffciency 20 - 30 ng/mL (50 - 75 nmol/L) Sufficiency 30 - 100 ng/mL (75 - 250 nmol/L) Toxicity >100 ng/mL (>250 nmol/L) Performed By: #### L506.1000 #### [facility] [place], [address] COMPREHENSIVE METABOLIC Collected: 09/04/2017 Status: F Source: [place] 11:13 AM [facility] REPOSITORY Order Comment: SEND RESULTS TO . TYPE CODE TESTS RESULT OUT OF RANGE REFERENCE UNITS LAB L501.0100 74-106 mg/dL High GLU 127 Result Comment: Fasting Glucose result greater than or equal to 126 mg/dL suggests DIABETES MELLITUS per A.D.A. criteria. Please note revised GLUCOSE reference range effective 2017. LAB L501.1000 7-18 mg/dL High BUN 75 LAB L501.1100 0.55-1.02 mg/dL High CREAT,SERUM 1.82 Result Comment: The validity of the calculated GFR AND GFRAA in patients over 70 years has not been determined. Clinical correlation is essential. LAB L501.1110 >60 mL/min Low EST GFR 29 Result Comment: Non- GFR Calc LAB L501.1115 >60 mL/min Low EST GFR - AA 35 Result Comment: GFR Calc LAB L501.1300 10-20 RATIO High BUN/CRE 41.2 LAB L501.1500 6.4-8.2 g/dL T Normal PROT 7.4 LAB L501.1800 3.2-5.0 g/dL Normal ALB 3.2 LAB L501.1950 2.2-4.2 g/dL Normal GLOB 4.2 LAB L501.2000 0.9-2.4 RATIO Low A/G 0.8 LAB L501.2200 8.5-10.1 mg/dL CA Normal 8.7 LAB L501.4100 15-37 U/L Low AST 11 LAB L501.4305 45-117 U/L Normal ALK P 65 LAB L501.4405 13-56 U/L Low ALT 11 LAB L501.4600 0.20-1.00 mg/dL T Normal BILI 0.70 LAB L501.5300 136-145 mmol/L NA Normal 138 LAB L501.5600 3.5-5.1 mmol/L K Normal 4.1 LAB L501.5900 98-107 mmol/L CL Normal 99 LAB L501.6100 21.0-32.0 mmol/L Normal CO2 31.0 LAB L501.6200 5-15 Normal GAP 8 Performed By: #### L500.4050, L501.9520, L506.0400 #### [facility] [address] [place], [address] THYROID STIM HORMONE Collected: 09/04/2017 Status: F Source: [place] (TSH) 11:13 AM [facility] REPOSITORY Order Comment: SEND RESULTS TO . TYPE CODE TESTS RESULT OUT OF RANGE REFERENCE UNITS LAB L501.9520 0.358-3.74 uIU/mL Normal TSH 2.88 Performed By: #### L500.4050, L501.9520, L506.0400 #### [facility] [address] [place], [place], [address] T4 FREE DIRECT Collected: 09/04/2017 Status: F Source: [place] 11:13 AM [facility] REPOSITORY Order Comment: SEND RESULTS TO . TYPE CODE TESTS RESULT OUT OF RANGE REFERENCE UNITS LAB L506.0400 0.76-1.46 ng/dL Normal T4 FREE 1.45 DIRECT Performed By: #### L500.4050, L501.9520, L506.0400 #### [facility] [address] [place], [place], [address] CNOV Observed: 08/21/2017 Status: COMPLETED Source: [place] 1:00 PM [facility] REPOSITORY Office Visit (INTMWS) ELIZABETH HO ([id number]) 1950 F Date Time Provider Department 08/21/17 1:00 PM WILLIAMS PAREKH INTMWS During your visit today, we recorded the following information about you: Pulse Respiration Blood pressure Weight 78/minute 14/minute 112/68 93.4 kg Williams Parekh 08/31/2017 11:10 PM Signed Patient presents with: Recheck SUBJECTIVE: Elizabeth Ho is a 67 year old year old lady here today for 5 month follow up appointment for review of medical conditions. Reviewed that can only get IV in left antecubital fossa as noted when in hospital at Easter time. Had pain in hand and fingers. Told IV site was fine. Not gout. Still with pain in hand and especially little finger. Getting ROM at elbow back now. Asked about shingles vaccine. Watches salt and fluids to limit swelling and prevent CHF. No angina. No sugars over 200 lately. Rarely <70. Knows when gets low. Gets sweaty and clammy. Has OJ on hand. PAST MEDICAL HISTORY Diagnosis Date - Acute on chronic combined systolic and diastolic congestive heart failure (HCC) 03/20/2013 NICM by outside echo EF 35%, stage II diastolic dysfunction 03/19 RHC: CI by Gudelia 2.75, SVR 1129, PA 47/18, wedge 22 On admission 06/2013, clinically euvolaemic -not on ACEi/ARB currently with hx of renal dysfunction and severe -continue carvedilol -ICD in situ - Interrogate ICD to determine if decompensation is due to underlying arrhythmia (h/o VT/AF). Will need to call on Monday morning. - Decrease coreg to 3.125 mg BID. Attempted Hydralazine but patient did not tolerate due to hypotension on 07/06. - Slight bump in Cr 07/07 so decrease Lasix to 40 mg BID. Will continue Aldactone but will need to monitor CrCl. -Will need follow up labs- arranged for at [facility] - Anemia 05/15/2013 Chronic anemia of unclear etiology. Received 2 units PRBC transfusion in April at OSH. Previous iron studies in our system suggestive of AoCD. Reports Colonoscopy/EGD ~ 2 years ago which did not show any major abnormalities. Presents with severe anemia in setting of supratherapeutic INR this admission. Denies BRBPR/melena but may have bleeding AVMs in the setting of severe . Also in setting of thrombocytopenia. Concern for DIC - fibrinogen negative -Received 6u PRBC since admission, stools melanotic Plan: - Monitor H/H, monitor coags/plts, check hemolysis labs as add-ons insufficient yesterday - NPO for possible EGD/Cscope today-> revealed polyps but bowel prep was inadequate, plan for capsule study 07/24/2013, NPO. ->capsule study neg for bleed. Pt needs elective colonoscopy as out pt to remove polyps. Recheck CBC next Monday. August 02. Fax results to DR George. - Aortic stenosis 03/20/2013 Progressive SOB on exertion, heart failure symptoms over the past 1 week preceding admission 07/05/2013. Known to have severe calcific tri-leaflet aortic valve stenosis. Denies chest pain, syncope, pre syncope. Echo: ALEX 0.81cm2, dimensionless index 0.23, pk/mn gradients 62/35 mmHg on 07/08/2013 Plan: - Planned for TF TAVR on 07/23/2013 - possibly delayed given likely GIB - Recently postponed due to UTI - will recheck UA and urine culture. Now postponed due to anemia. 07/26/2013 DC to SNF and return for TAVR at a later date. - Aortic valve disorders - Atrial fibrillation (HCC) - Atrial fibrillation (HCC) 04/02/2005 Currently NSR Plan: - Supratherapeutic INR on presentation, holding Warfarin - holding heparin given GIB and risks>benefits - on carvedilol - ICD in place - Atrial fibrillation (HCC) 04/02/2005 H/o pAF on coumadin and amiodarone Warfarin was stopped last admission on 07/23 for severe anemia concerning for GI bleed Plan: - currently in NSR - c/w amiodarone - Monitor Hb - Back pain 03/21/2013 Right sided back, shoulder, and arm pain s/p fall 03/14 Now chronic pain. Cont PRN meds R shoulder blade tender to touch-> beside MS UTI contributing, started tx for UTI - Bursitis of left shoulder 05/15/2013 - Cellulitis of left leg 01/29/2010 [facility] ER 01/27/10 transferred to [facility] Dx: sepsis, afib, elevated INR - Chest pain, atypical 03/04/2014 Prior cath in 02/2013 had mild nonobstructive CAD. ACS possible but less likely. Already on ASA/plavix. Will cotninue. Hold on heparin gtt unless has further pain. First set of biomarkers were negative. Will continue to cycle tonight. IF positive will consider LHC today. If negative the patient is reluctant for any stress test so this will need to be considered. Other ddx such as PE or dissection less likely. No tachycardia or worsened SOB. CP resolved currently. Echo in the AM -cath - mild nonobstructive CAD; no indication for revascularization. -continued to have occ sharp chest pain ->LHC mild nonobstructive CAD best treated with medical management. Device check ruled OUT VT/VF. Echo showed Stephanie aortic valve well seated, pk/mn gradients . - Chronic anticoagulation Managed by Dr. See (cardiology; [facility]) - CKD (chronic kidney disease) stage 4, GFR 15-29 ml/min ([facility]) -On HD in 2009 for about 6-7 months, but has since improved to the point where she no longer requires it -stable Plan: - monitor renal function - avoid nephrotoxins - DM (diabetes mellitus) type II uncontrolled with renal manifestation Diabetes mellitus NIDDM - ESRD on hemodialysis ([facility]) Dr. Luo ([place]) - Failure to extubation 08/26/2013 Patient was extubated in OR after the procedure. She was noted to be agitated so she was put on CPAP with pressure of 5. She was re intubated around 1 pm for end tidal CO2 of 52. Currently on SIMV 14 FiO2 30% Peep 5 Plan Resolved Transferred to the floor 5-7 - GI bleed 08/26/2013 - Heart failure, systolic and diastolic, chronic ([facility]) 07/21/2013 NICM EF 45%, stage I diastolic dysfunction on most recent Echo 06/2013 On admission, clinically euvolemic Plan: - not currently on ACEi/ARB due to renal dysfunction - on carvedilol - continue spironolactone - hold Lasix 40mg PO BID until acute anemia addressed but will diurese with transfusions as needed - ICD in situ - Heart failure, systolic and diastolic, chronic ([facility]) 07/21/2013 NICM EF 45%, stage I diastolic dysfunction on most recent Echo 06/2013 On admission, clinically euvolemic Plan: - not currently on ACEi/ARB due to renal dysfunction - on carvedilol - continue spironolactone - hold Lasix 40mg PO BID until acute anemia addressed but will diurese with transfusions as needed - ICD in situ - Hives 07/29/2013 - Hyperlipidemia - Hypertension - Hypokalemia 03/20/2013 Monitor and replete prn to keep >4.0 - Hypomagnesemia 03/20/2013 Replete to keep >2.0 - Hypothyroidism 07/05/2013 - Leukocytosis 03/05/2014 No fever -WBC bumped up 12.55 -ordered u/a and culture-> UA suggests UTI urine cx pending, start Cipro. 03/07/2014 culture is pending, WBC decreased to 7.92 - Mechanical complication of other vascular device, implant, and graft 09/01/2010 - Morbid obesity (HCC) - Morbid obesity (HCC) Nutrition consult - Muscular deconditioning 09/14/2013 - Non-ischemic cardiomyopathy (HCC) Cardiomyopathy--[place] - Paroxysmal ventricular tachycardia (HCC) 04/02/2005 H/o VT/TdP s/p ICD. S/p defibrillator firing on 03/15/13 in the context of hypokalemia. Electrically quiescent on admission 06/2013 Plan: Monitor lytes and replete prn - Peripheral vascular disease (HCC) - Pressure ulcer, other site(707.09) 07/07/2013 bilateral ischium stage II POA. Xenoderm per nursing. This was present on admission. cont wound care. Also bilateral heel pressure ulcers stage 1 poa - Rectus sheath hematoma 03/29/2013 3.8 cm rectus hematoma noted on CT scan Complaining of some fleeting nausea, no pain Monitor blood counts - Renal failure 05/07/2010 Renal status stable. Off dialysis - S/P TAVR (transcatheter aortic valve replacement) 09/14/2013 - Severe aortic stenosis 08/26/2013 S/p #26 ES TF-TAVR. Exam without murmurs of AI or progressive . Will check echo in the AM but no reason to suggest valvular malfunction. Cont ASA/plavix Echo EF 45%, Bond-Stephanie prosthetic aortic valve (size #26). The peak gradient is 30 mmHg and the mean gradient is 17 mmHg. S/P transcathetaer AVR ( Bond Stephanie # 26) with mild anterior AI (seen best in initial parasternal views. - Staphylococcal infection of skin lower sheen both, - STASIS DERMATITIS 12/26/2007 Chronic changes of both legs, no recent change per patient, Uses emollient to good effect at home, will continue - Thrombocytopenia (HCC) 07/26/2013 Anemia with thrombocytopenia that is resolving. - Thrombophlebitis arm 03/22/2013 Assessment: DARREL NOBLE PIV site from OSH now warm, red, and firm with purulent drainage -BC from OSH report MSSA -03/25 IANDD to left antecubital fossa Plan: - Continue oxacillin IV 2 gm q4 hrs - Anticipate CoPAT- (ordered placed for david catheter) - ID following - BC x2 redrawn 03/30: ID rec to keep oxacillin going for 6 weeks, will write COPAT. David placed. Will go to [facility] on Monday. - Type II or unspecified type diabetes mellitus without mention of complication, not stated as uncontrolled 01/10/2005 - Check HbA1C - Lantus and prandial lispro with SSI coverage - BS poorly controlled HD #1. Increased prandial insulin dosing and Lantus. 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 This was not quiroz induced this was [employer]. Will discuss with ID - monitor for symptoms- > no symptoms, no fever and WBC WNL. Spoke with Dr. Shay from ID who said no signs/symptoms of UTI so would not treat with ATBs, they recommended remove quiroz-> but need urology to see pt first. Curbsided urology fellow who recommended removing quiroz, consult if difficulty difficulty voiding, then follow up with urology outpt at a later time. 07/24/[address] George due to upcoming valve procedure and + urine culture Current Outpatient Prescriptions: BD INSULIN PEN NEEDLE UF 31 gauge x 5/16 ndle USE WITH INSULIN PEN FOUR TIMES DAILY warfarin (COUMADIN) 4 mg tablet 1 pill Mon, ,Mon; half pill , Mon, Sat, Sun Managed by Dr. See amiodarone (PACERONE) 200 mg tablet Take 1 tablet by mouth three times daily. Per hospital discharge 12/21/16 Insulin Lispro, Human, (HUMALOG KWIKPEN) 100 unit/mL inpn Inject subcutaneously 5 units with breakfast, 8 units with lunch, and 8 units with dinner dinner OXYGEN-AIR DELIVERY SYSTEMS (HIDEAWAY PULSEDOSE OXYGEN SYST MISC) Overnight pulse Ox check 327.24 Nocturnal hypoxemia, and Daytime as needed insulin glargine (LANTUS SOLOSTAR) 100 unit/mL (3 mL) inpn Inject 42 Units subcutaneously once daily. triamcinolone acetonide (KENALOG) 0.1 % cream Apply 1 application to affected area twice daily. Apply sparingly to area for rash/itching. Use until rash and itching resolves nystatin (MYCOSTATIN) cream Apply 1 application to affected area twice daily. Continue for 1 week after rash resolves levothyroxine (SYNTHROID) 75 mcg tablet Take 1 tablet by mouth every morning on an empty stomach For Thyroid COMPOUNDED PRESCRIPTION Paper Tape. 2 . furosemide (LASIX) 40 mg tablet Take 1 tablet by mouth twice daily. spironolactone (ALDACTONE) 25 mg tablet Take 1 tablet by mouth once daily. metOLAzone (ZAROXOLYN) 5 mg tablet Take 0.5 tablets by mouth once daily. Every other day docusate sodium (COLACE) 100 mg capsule Take 1 capsule by mouth twice daily as needed for Constipation. atorvastatin (LIPITOR) 40 mg tablet Take 40 mg by mouth once daily. carvedilol 3.125 mg tablet Take 1 tablet by mouth twice daily with meals. blood sugar diagnostic (ONE TOUCH ULTRA TEST) test strip (TEST 4x DAILY, 250.02) insulin dep uncontrolled Lancets (ONE TOUCH DELICA) lancets Test 4 times daily 250.02, insulin dep ergocalciferol, vitamin D2, 50,000 unit capsule Take 1 capsule by mouth once each week. acetaminophen (TYLENOL EXTRA STRENGTH) 500 mg ORAL tablet Take 500 mg by mouth every 4 hours as needed. ASPIRIN 81 MG ORAL TAB Take one (1) tablet daily . No current facility-administered medications for this visit. OBJECTIVE: BP 112/68 Pulse 78 Resp 14 Wt 93.4 kg (206 lb) BMI 33.25 kg/m? Patient is alert, oriented times 3, no apparent distress, affect is bright, reactive. Last 5 Encounter BP Readings: Date: BP: 08/21/2017 112/68 08/01/2017 128/82 03/15/2017 118/60 02/16/2017 120/80 12/24/2016 112/74 Last 5 Encounter Wt Readings: Date: Wt: 08/21/2017 93.4 kg (206 lb) 08/01/2017 93.4 kg (206 lb) 03/15/2017 93.4 kg (206 lb) 02/16/2017 93.9 kg (207 lb) 12/24/2016 92.1 kg (203 lb) Heart: Regular rate, rhythm, no murmurs, gallops, rubs. Lungs: Clear to auscultation, bilaterally, breathing non labored. Ext: No cyanosis, clubbing; controlled bilateral lower extremities edema--wearing compression socks and just some doughy edema. Component Latest Ref Rng AND Units 04/26/2016 08/17/2017 Glucose 74 - 99 mg/dL 181 (H) BUN 7 - 21 mg/dL 53 (H) Creatinine 0.58 - 0.96 mg/dL 1.52 (H) Sodium 136 - 144 mmol/L 144 Potassium 3.7 - 5.1 mmol/L 4.0 Chloride 97 - 105 mmol/L 98 CO2 22 - 30 mmol/L 33 (H) Anion Gap 9 - 18 mmol/L 13 Calcium 8.6 - 10.0 mg/dL 9.3 eGFR- 41 eGFR-All Other Races . 34 WBC 3.70 - 11.00 k/uL 9.93 RBC 3.90 - 5.20 m/uL 3.57 (L) Hemoglobin 11.5 - 15.5 g/dL 10.8 (L) Hematocrit 36.0 - 46.0 % 34.3 (L) MCV 80.0 - 100.0 fL 96.1 MCH 26.0 - 34.0 pG 30.3 MCHC 30.5 - 36.0 g/dL 31.5 RDW-CV 11.5 - 15.0 % 13.8 Platelet Count 150 - 400 k/uL 180 MPV 9.0 - 12.7 fL 12.1 Absolute nRBC <0.01 k/uL <0.01 Cholesterol, Total <200 mg/dL 119 Triglyceride <150 mg/dL 92 HDL Cholesterol >39 mg/dL 43 LDL Cholesterol <100 mg/dL 58 Non HDL Cholesterol <130 mg/dL 76 Fasting Time hrs 2 VLDL Cholesterol <30 mg/dL 18 TC:HDL Ratio <5.10 2.77 LDL:HDL Ratio <2.54 1.35 Hemoglobin A1C 4.3 - 5.6 % 6.9 (H) Estimated Average Glucose mg/dL 151 TSH 0.400 - 5.500 uU/mL 4.370 ASSESSMENT AND PLAN: Encounter Diagnosis ICD-10-CM 1. Type 2 diabetes mellitus without complication, with long- term current use of insulin ([facility]) E11.9 insulin glargine (LANTUS SOLOSTAR U-100 INSULIN) 100 unit/mL (3 mL) inpn Z79.4 COMP METABOLIC PANEL HGB A1C ALBUMIN/CREAT RATIO RND UR 2. Coronary artery disease involving [place] coronary artery of [place] heart without angina pectoris I25.10 3. CKD (chronic kidney disease) stage 4, GFR 15-29 ml/min ([facility]) N18.4 4. PVD (peripheral vascular disease) ([facility]) I73.9 5. Venous (peripheral) insufficiency I87.2 6. Vitamin D deficiency E55.9 VITAMIN D 25 HYDROXY 7. Secondary hyperparathyroidism ([facility]) N25.81 VITAMIN D 25 HYDROXY 8. Implantable cardioverter-defibrillator (ICD) in situ Z95.810 9. Non morbid obesity due to excess calories E66.09 10. Congestive heart failure, NYHA class 3, unspecified congestive heart failure type ([facility]) I50.9 11. Anemia, unspecified type D64.9 12. On home O2 Z99.81 13. Acquired hypothyroidism E03.9 TSH BLD T4 FREE/FREE THYROX 14. PAF (paroxysmal atrial fibrillation) ([facility]) I48.0 warfarin (COUMADIN) 4 mg tablet Additional Medical Conditions Last edited 08/31/17 23:05 EDT by Williams Parekh MD Above issues addressed with patient. Patient involved in shared decision making for management of her medical issues. History and medications reviewed. Epic updated as needed Refills taken care of and meds adjusted as indicated after reviewed history, exam and labs. Health Maintenance reviewed. Updated record and/or ordered tests as recorded. Encouraged on efforts at healthy diet and regular exercise and adequate sleep. Needs to keep working on diet and exercise with lifestyle changes for effective weight loss. Discussed need to stay hydrated. Overall doing pretty well given all her medical issues as noted above. Continue follow up with biofuels product manager. The majority of the visit was spent counseling and/or coordinating care for the patient. [id number] time was at least 25 minutes. Williams Parekh MD Referring Provider: WILLIAMS PAREKH [[id number]] Allergies As of Date: 08/21/2017 Noted Allergy Reaction AUGMENTIN (AMOXICILLIN-POT CLAVUL*2013 2 - Rash SULFA (SULFONAMIDE ANTIBIOTICS) 01/10/2005 4 - Hives VANCOMYCIN 08/26/2013 10 - Anaphylaxis Comments: Per pharmacist. Patient tolerating PO Vancomycin. on 01/07 pt in [facility] and had ld syndrome rxn to [facility]. Date Reviewed: 08/21/2017 Reviewed by: Porsha Nicole Cma - Fully Assessed Reason for Visit: Recheck [92] Primary Visit Diagnosis:Type 2 diabetes mellitus without complication, with long-term current use of insulin ([facility]) [E11.9, Z79.4] Other Visit Diagnoses:Coronary artery disease involving [place] coronary artery of [place] heart without angina pectoris [I25.10] CKD (chronic kidney disease) stage 4, GFR 15-29 ml/min ([facility]) [N18.4] PVD (peripheral vascular disease) ([facility]) [I73.9] Venous (peripheral) insufficiency [I87.2] Vitamin D deficiency [E55.9] Secondary hyperparathyroidism ([facility]) [N25.81] Implantable cardioverter-defibrillator (ICD) in situ [Z95.810] Non morbid obesity due to excess calories [E66.09] Congestive heart failure, NYHA class 3, unspecified congestive heart failure type ([facility]) [I50.9] Anemia, unspecified type [D64.9] On home O2 [Z99.81] Acquired hypothyroidism [E03.9] PAF (paroxysmal atrial fibrillation) ([facility]) [I48.0] Order(s):insulin glargine (LANTUS SOLOSTAR U-100 INSULIN) 100 unit/mL (3 mL) inpnInject 42 Units subcutaneously once daily.Disp: 5 PenRfl: 11 levothyroxine (SYNTHROID) 75 mcg tabletTake 1 tablet by mouth every morning on an empty stomach For ThyroidDisp: 90 tabletRfl: 3 COMP METABOLIC PANEL [SQCMP] Order #: [id number] FUTURE HGB A1C [OHMXS4S] Order #: [id number] FUTURE VITAMIN D 25 HYDROXY [SQVITD] Order #: [id number] FUTURE TSH BLD [SQTSH] Order #: [id number] FUTURE T4 FREE/FREE THYROX [SQFT4] Order #: [id number] FUTURE ALBUMIN/CREAT RATIO RND UR [SQUACR] Order #: [id number] FUTURE warfarin (COUMADIN) 4 mg [id number] Monday, 2 mg daily rest of the week. (Might change again since was decreased when INR up on antibiotic) Managed by Dr. Smithp: Rfl: Prescriptions as of 08/21/2017 Sig: INSULIN GLARGINE (U-100) 100 * Inject 42 Units subcutaneousl* LEVOTHYROXINE 75 MCG TABLET Take 1 tablet by mouth every * WARFARIN 4 MG TABLET 4mg Monday, 2 mg daily rest o* X INSULIN LISPRO (U-100) 100 UN* Inject subcutaneously 5 units* BD ULTRA-FINE SHORT PEN NEEDL* USE WITH INSULIN PEN FOUR FERMIN* AMIODARONE 200 MG TABLET Take 1 tablet by mouth three * HIDEAWAY PULSEDOSE OXYGEN SYS* Overnight pulse Ox check 327.* TRIAMCINOLONE ACETONIDE 0.1 %* Apply 1 application to affect* NYSTATIN 100,000 UNIT/GRAM TO* Apply 1 application to affect* COMPOUNDED PRESCRIPTION Paper Tape. 2 . FUROSEMIDE 40 MG TABLET Take 1 tablet by mouth twice * SPIRONOLACTONE 25 MG TABLET Take 1 tablet by mouth once d* METOLAZONE 5 MG TABLET Take 0.5 tablets by mouth onc* DOCUSATE SODIUM 100 MG CAPSULE Take 1 capsule by mouth twice* ATORVASTATIN 40 MG TABLET Take 40 mg by mouth once fernando* CARVEDILOL 3.125 MG TABLET Take 1 tablet by mouth twice * * BLOOD SUGAR DIAGNOSTIC STRIPS (TEST 4x DAILY, 250.02) insul* * LANCETS Test 4 times daily 250.02, in* * ACETAMINOPHEN 500 MG TABLET Take 500 mg by mouth every 4 * * ASPIRIN 81 MG TABLET Take one (1) tablet daily . Problem List As Of Date 08/21/2017 Noted Resolved Other and unspecified hyperlipidemia [E78.5] Priority: J More... Non morbid obesity due to excess calories [E66.* Priority: K More... More... More... Paroxysmal ventricular tachycardia [I47.2] INVALID FOR* Priority: D More... EDEMA [R60.9] INVALID FOR* Venous (peripheral) insufficiency [I87.2] INVALID FOR* More... Other malaise and fatigue [R53.81, R53.83] INVALID FOR*11/29/2010 Cellulitis of left leg [L03.116] INVALID FOR*02/16/2017 More... More... Dialysis patient [Z99.2] INVALID FOR*04/18/2013 More... CKD (chronic kidney disease) stage 4, GFR 15-29* Priority: E More... Varicose veins of lower extremities with ulcer *INVALID FOR* Vitamin D deficiency [E55.9] INVALID FOR* More... Secondary hyperparathyroidism [N25.81] INVALID FOR* CAD (coronary artery disease), [place] coronary *INVALID FOR* Priority: F More... More... Torsades de pointes (HCC) [I47.2] INVALID FOR*08/21/2017 Priority: B More... Aortic stenosis [I35.0] INVALID FOR* Priority: B More... Mitral stenosis [I05.0] INVALID FOR* Priority: D More... More... More... More... More... On home O2 [Z99.81] INVALID FOR* Priority: K More... Elevated bilirubin [R17] INVALID FOR*03/23/2013 More... More... More... PVD (peripheral vascular disease) [I73.9] INVALID FOR* Priority: K More... More... More... More... Anemia [D64.9] INVALID FOR* Priority: B More... Bursitis of left shoulder [M75.52] INVALID FOR*02/16/2017 Urinary incontinence [R32] INVALID FOR* Priority: D More... More... Pressure ulcer, other site(707.09) [L89.899] INVALID FOR*02/16/2017 Priority: L More... More... More... Implantable cardioverter-defibrillator (ICD) in*INVALID FOR* More... More... DVT prophylaxis [ZIY6184] INVALID FOR* More... Thrombocytopenia (HCC) [D69.6] INVALID FOR*08/21/2017 More... More... Constipation [K59.00] INVALID FOR* Anticoagulated on Coumadin [Z51.81, Z79.01] INVALID FOR*10/11/2013 Severe aortic stenosis [I35.0] INVALID FOR*01/19/2017 Priority: A More... CHF (congestive heart failure), NYHA class III *INVALID FOR* Priority: B More... More... C. difficile diarrhea [A04.72] INVALID FOR*10/11/2013 More... Gout, arthritis [M10.9] INVALID FOR* More... Leukocytosis [D72.829] INVALID FOR*02/16/2017 Priority: B More... 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 Gait instability [R26.81] INVALID FOR* More... PAF (paroxysmal atrial fibrillation) (HCC) [I48*INVALID FOR* Diabetes mellitus (HCC) [E11.9] INVALID FOR* Prescriptions ordered this encounter Disp Refills Start End INSULIN GLARGINE (U-100) 100 UNIT/ML* 5 Pen 11 08/21/2017 Route: SUBCUTANEOUS Sig: Inject 42 Units subcutaneously once daily. LEVOTHYROXINE 75 MCG TABLET 90 t* 3 08/21/2017 Sig: Take 1 tablet by mouth every morning on an empty stomach For Thyroid INSULIN LISPRO (U-100) 100 UNIT/ML S* 5 Pen 11 08/21/2017 08/26/2017 Sig: Inject subcutaneously 5 units with breakfast, 8 units with lunch, and 8 units with dinner dinner WARFARIN 4 MG TABLET 08/21/2017 Class: Med Update Simg Monday, 2 mg daily rest of the week. (Might change again since was decreased when INR up on antibiotic) Managed by Dr. See Medications Discontinued During This Encounter insulin glargine (LANTUS SOLOSTAR) 1* 5 Pen 11 08/30/2016 08/21/2017 Cmt: Please put on file for when patient will be needing Route: SUBCUTANEOUS Sig: Inject 42 Units subcutaneously once daily. Disc: Reason for discontinue is not on file. levothyroxine (SYNTHROID) 75 mcg tab* 90 t* 3 08/08/2016 08/21/2017 Cmt: Intentional dose increase Sig: Take 1 tablet by mouth every morning on an empty stomach For Thyroid Disc: Reason for discontinue is not on file. Insulin Lispro, Human, (HUMALOG KWIK* 5 Pen 11 10/10/2016 08/21/2017 Sig: Inject subcutaneously 5 units with breakfast, 8 units with lunch, and 8 units with dinner dinner Disc: Reason for discontinue is not on file. ergocalciferol, vitamin D2, 50,000 u* 4 ca* 12 10/27/2011 08/21/2017 Route: ORAL Sig: Take 1 capsule by mouth once each week. Disc: Reason for discontinue is not on file. warfarin (COUMADIN) 4 mg tablet 03/15/2017 08/21/2017 Class: Med Update Si pill Mon, ,Wed; half pill , Mon, Mon, Mon Managed by Dr. See Disc: Reason for discontinue is not on file. Disposition: Return in about 4 months (around 12/21/2017) for 4 months follow up. Follow-up and Disposition History Recorded Encounter Status:Closed by WILLIAMS PAREKH MD on 08/31/17 PROGRESS Observed: 08/21/2017 Status: COMPLETED Source: [place] 12:58 PM [facility] REPOSITORY HNO ID: [id number] Author: Williams Parekh Service: (none) Author Type: Physician Type: Progress Notes Filed: 08/31/2017 11:10 PM Note Text: Patient presents with: Recheck SUBJECTIVE: Elizabeth Ho is a 67 year old year old lady here today for 5 month follow up appointment for review of medical conditions. Reviewed that can only get IV in left antecubital fossa as noted when in hospital at Easter time. Had pain in hand and fingers. Told IV site was fine. Not gout. Still with pain in hand and especially little finger. Getting ROM at elbow back now. Asked about shingles vaccine. Watches salt and fluids to limit swelling and prevent CHF. No angina. No sugars over 200 lately. Rarely <70. Knows when gets low. Gets sweaty and clammy. Has OJ on hand. PAST MEDICAL HISTORY Diagnosis Date - Acute on chronic combined systolic and diastolic congestive heart failure (HCC) 03/20/2013 NICM by outside echo EF 35%, stage II diastolic dysfunction 03/19 RHC: CI by Gudelia 2.75, SVR 1129, PA 47/18, wedge 22 On admission 06/2013, clinically euvolaemic -not on ACEi/ARB currently with hx of renal dysfunction and severe -continue carvedilol -ICD in situ - Interrogate ICD to determine if decompensation is due to underlying arrhythmia (h/o VT/AF). Will need to call on Monday morning. - Decrease coreg to 3.125 mg BID. Attempted Hydralazine but patient did not tolerate due to hypotension on 07/06. - Slight bump in Cr 07/07 so decrease Lasix to 40 mg BID. Will continue Aldactone but will need to monitor CrCl. -Will need follow up labs- arranged for at [facility] - Anemia 05/15/2013 Chronic anemia of unclear etiology. Received 2 units PRBC transfusion in April at OSH. Previous iron studies in our system suggestive of AoCD. Reports Colonoscopy/EGD ~ 2 years ago which did not show any major abnormalities. Presents with severe anemia in setting of supratherapeutic INR this admission. Denies BRBPR/melena but may have bleeding AVMs in the setting of severe . Also in setting of thrombocytopenia. Concern for DIC - fibrinogen negative -Received 6u PRBC since admission, stools melanotic Plan: - Monitor H/H, monitor coags/plts, check hemolysis labs as add-ons insufficient yesterday - NPO for possible EGD/Cscope today-> revealed polyps but bowel prep was inadequate, plan for capsule study 07/24/2013, NPO. ->capsule study neg for bleed. Pt needs elective colonoscopy as out pt to remove polyps. Recheck CBC next Monday. August 02. Fax results to DR George. - Aortic stenosis 03/20/2013 Progressive SOB on exertion, heart failure symptoms over the past 1 week preceding admission 07/05/2013. Known to have severe calcific tri-leaflet aortic valve stenosis. Denies chest pain, syncope, pre syncope. Echo: ALEX 0.81cm2, dimensionless index 0.23, pk/mn gradients 62/35 mmHg on 07/08/2013 Plan: - Planned for TF TAVR on 07/23/2013 - possibly delayed given likely GIB - Recently postponed due to UTI - will recheck UA and urine culture. Now postponed due to anemia. 07/26/2013 DC to SNF and return for TAVR at a later date. - Aortic valve disorders - Atrial fibrillation (HCC) - Atrial fibrillation (HCC) 04/02/2005 Currently NSR Plan: - Supratherapeutic INR on presentation, holding Warfarin - holding heparin given GIB and risks>benefits - on carvedilol - ICD in place - Atrial fibrillation (HCC) 04/02/2005 H/o pAF on coumadin and amiodarone Warfarin was stopped last admission on 07/23 for severe anemia concerning for GI bleed Plan: - currently in NSR - c/w amiodarone - Monitor Hb - Back pain 03/21/2013 Right sided back, shoulder, and arm pain s/p fall 03/14 Now chronic pain. Cont PRN meds R shoulder blade tender to touch-> beside MS UTI contributing, started tx for UTI - Bursitis of left shoulder 05/15/2013 - Cellulitis of left leg 01/29/2010 [facility] ER 01/27/10 transferred to [facility] Dx: sepsis, afib, elevated INR - Chest pain, atypical 03/04/2014 Prior cath in 02/2013 had mild nonobstructive CAD. ACS possible but less likely. Already on ASA/plavix. Will cotninue. Hold on heparin gtt unless has further pain. First set of biomarkers were negative. Will continue to cycle tonight. IF positive will consider LHC today. If negative the patient is reluctant for any stress test so this will need to be considered. Other ddx such as PE or dissection less likely. No tachycardia or worsened SOB. CP resolved currently. Echo in the AM -cath 03-04 mild nonobstructive CAD; no indication for revascularization. - continued to have occ sharp chest pain ->LHC mild nonobstructive CAD best treated with medical management. Device check ruled OUT VT/VF. Echo showed Stephanie aortic valve well seated, pk/mn gradients 30/17. - Chronic anticoagulation Managed by Dr. See (cardiology; [facility]) - CKD (chronic kidney disease) stage 4, GFR 15-29 ml/min ([facility]) -On HD in 2009 for about 6-7 months, but has since improved to the point where she no longer requires it -stable Plan: - monitor renal function - avoid nephrotoxins - DM (diabetes mellitus) type II uncontrolled with renal manifestation Diabetes mellitus NIDDM - ESRD on hemodialysis ([facility]) Dr. Luo ([place]) - Failure to extubation 08/26/2013 Patient was extubated in OR after the procedure. She was noted to be agitated so she was put on CPAP with pressure of 5. She was re intubated around 1 pm for end tidal CO2 of 52. Currently on SIMV 14 FiO2 30% Peep 5 Plan Resolved Transferred to the floor 5-7 - GI bleed 08/26/2013 - Heart failure, systolic and diastolic, chronic ([facility]) 07/21/2013 NICM EF 45%, stage I diastolic dysfunction on most recent Echo 06/2013 On admission, clinically euvolemic Plan: - not currently on ACEi/ARB due to renal dysfunction - on carvedilol - continue spironolactone - hold Lasix 40mg PO BID until acute anemia addressed but will diurese with transfusions as needed - ICD in situ - Heart failure, systolic and diastolic, chronic ([facility]) 07/21/2013 NICM EF 45%, stage I diastolic dysfunction on most recent Echo 06/2013 On admission, clinically euvolemic Plan: - not currently on ACEi/ARB due to renal dysfunction - on carvedilol - continue spironolactone - hold Lasix 40mg PO BID until acute anemia addressed but will diurese with transfusions as needed - ICD in situ - Hives 07/29/2013 - Hyperlipidemia - Hypertension - Hypokalemia 03/20/2013 Monitor and replete prn to keep >4.0 - Hypomagnesemia 03/20/2013 Replete to keep >2.0 - Hypothyroidism 07/05/2013 - Leukocytosis 03/05/2014 No fever -WBC bumped up 12.55 -ordered u/a and culture-> UA suggests UTI urine cx pending, start Cipro. 03/07/2014 culture is pending, WBC decreased to 7.92 - Mechanical complication of other vascular device, implant, and graft 09/01/2010 - Morbid obesity ([facility]) - Morbid obesity ([facility]) Nutrition consult - Muscular deconditioning 09/14/2013 - Non-ischemic cardiomyopathy ([facility]) Cardiomyopathy--[place] - Paroxysmal ventricular tachycardia ([facility]) 04/02/2005 H/o VT/TdP s/p ICD. S/p defibrillator firing on 03/15/13 in the context of hypokalemia. Electrically quiescent on admission 06/2013 Plan: Monitor lytes and replete prn - Peripheral vascular disease (HCC) - Pressure ulcer, other site(707.09) 07/07/2013 bilateral ischium stage II POA. Xenoderm per nursing. This was present on admission. cont wound care. Also bilateral heel pressure ulcers stage 1 poa - Rectus sheath hematoma 03/29/2013 3.8 cm rectus hematoma noted on CT scan Complaining of some fleeting nausea, no pain Monitor blood counts - Renal failure 05/07/2010 Renal status stable. Off dialysis - S/P TAVR (transcatheter aortic valve replacement) 09/14/2013 - Severe aortic stenosis 08/26/2013 S/p #26 ES TF-TAVR. Exam without murmurs of AI or progressive . Will check echo in the AM but no reason to suggest valvular malfunction. Cont ASA/plavix Echo EF 45%, Bond-Stephanie prosthetic aortic valve (size #26). The peak gradient is 30 mmHg and the mean gradient is 17 mmHg. S/P transcathetaer AVR ( Bond Stephanie # 26) with mild anterior AI (seen best in initial parasternal views. - Staphylococcal infection of skin lower sheen both, - STASIS DERMATITIS 12/26/2007 Chronic changes of both legs, no recent change per patient, Uses emollient to good effect at home, will continue - Thrombocytopenia ([facility]) 07/26/2013 Anemia with thrombocytopenia that is resolving. - Thrombophlebitis arm 03/22/2013 Assessment: DARREL NOBLE PIV site from OSH now warm, red, and firm with purulent drainage -BC from OSH report MSSA -03/25 IANDD to left antecubital fossa Plan: - Continue oxacillin IV 2 gm q4 hrs - Anticipate CoPAT- (ordered placed for david catheter) - ID following - BC x2 redrawn 03/30: ID rec to keep oxacillin going for 6 weeks, will write COPAT. David placed. Will go to [facility] on Monday. - Type II or unspecified type diabetes mellitus without mention of complication, not stated as uncontrolled 01/10/2005 - Check HbA1C - Lantus and prandial lispro with SSI coverage - BS poorly controlled HD #1. Increased prandial insulin dosing and Lantus. 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 This was not quiroz induced this was REIN[employer]. Will discuss with ID - monitor for symptoms- > no symptoms, no fever and WBC WNL. Spoke with Dr. Shay from ID who said no signs/symptoms of UTI so would not treat with ATBs, they recommended remove quiroz-> but need urology to see pt first. Curbsided urology fellow who recommended removing quiroz, consult if difficulty difficulty voiding, then follow up with urology outpt at a later time. 07/24/[address] George due to upcoming valve procedure and + urine culture Current Outpatient Prescriptions: BD INSULIN PEN NEEDLE UF 31 gauge x 09/06 nd USE WITH INSULIN PEN FOUR TIMES DAILY warfarin (COUMADIN) 4 mg tablet 1 pill Mon, ,Wed; half pill , Mon, Sat, Sun Managed by Dr. See amiodarone (PACERONE) 200 mg tablet Take 1 tablet by mouth three times daily. Per hospital discharge 12/21/16 Insulin Lispro, Human, (HUMALOG KWIKPEN) 100 unit/mL inpn Inject subcutaneously 5 units with breakfast, 8 units with lunch, and 8 units with dinner dinner OXYGEN-AIR DELIVERY SYSTEMS (HIDEAWAY PULSEDOSE OXYGEN SYST MISC) Overnight pulse Ox check 327.24 Nocturnal hypoxemia, and Daytime as needed insulin glargine (LANTUS SOLOSTAR) 100 unit/mL (3 mL) inpn Inject 42 Units subcutaneously once daily. triamcinolone acetonide (KENALOG) 0.1 % cream Apply 1 application to affected area twice daily. Apply sparingly to area for rash/itching. Use until rash and itching resolves nystatin (MYCOSTATIN) cream Apply 1 application to affected area twice daily. Continue for 1 week after rash resolves levothyroxine (SYNTHROID) 75 mcg tablet Take 1 tablet by mouth every morning on an empty stomach For Thyroid COMPOUNDED PRESCRIPTION Paper Tape. 2 . furosemide (LASIX) 40 mg tablet Take 1 tablet by mouth twice daily. spironolactone (ALDACTONE) 25 mg tablet Take 1 tablet by mouth once daily. metOLAzone (ZAROXOLYN) 5 mg tablet Take 0.5 tablets by mouth once daily. Every other day docusate sodium (COLACE) 100 mg capsule Take 1 capsule by mouth twice daily as needed for Constipation. atorvastatin (LIPITOR) 40 mg tablet Take 40 mg by mouth once daily. carvedilol 3.125 mg tablet Take 1 tablet by mouth twice daily with meals. blood sugar diagnostic (ONE TOUCH ULTRA TEST) test strip (TEST 4x DAILY, 250.02) insulin dep uncontrolled Lancets (ONE TOUCH DELICA) lancets Test 4 times daily 250.02, insulin dep ergocalciferol, vitamin D2, 50,000 unit capsule Take 1 capsule by mouth once each week. acetaminophen (TYLENOL EXTRA STRENGTH) 500 mg ORAL tablet Take 500 mg by mouth every 4 hours as needed. ASPIRIN 81 MG ORAL TAB Take one (1) tablet daily . No current facility-administered medications for this visit. OBJECTIVE: BP 112/68 Pulse 78 Resp 14 Wt 93.4 kg (206 lb) BMI 33.25 kg/m? Patient is alert, oriented times 3, no apparent distress, affect is bright, reactive. Last 5 Encounter BP Readings: Date: BP: 08/21/2017 112/68 08/01/2017 128/82 03/15/2017 118/60 02/16/2017 120/80 12/24/2016 112/74 Last 5 Encounter Wt Readings: Date: Wt: 08/21/2017 93.4 kg (206 lb) 08/01/2017 93.4 kg (206 lb) 03/15/2017 93.4 kg (206 lb) 02/16/2017 93.9 kg (207 lb) 12/24/2016 92.1 kg (203 lb) Heart: Regular rate, rhythm, no murmurs, gallops, rubs. Lungs: Clear to auscultation, bilaterally, breathing non labored. Ext: No cyanosis, clubbing; controlled bilateral lower extremities edema--wearing compression socks and just some doughy edema. Component Latest Ref Rng AND Units 04/26/2016 08/17/2017 Glucose 74 - 99 mg/dL 181 (H) BUN 7 - 21 mg/dL 53 (H) Creatinine 0.58 - 0.96 mg/dL 1.52 (H) Sodium 136 - 144 mmol/L 144 Potassium 3.7 - 5.1 mmol/L 4.0 Chloride 97 - 105 mmol/L 98 CO2 22 - 30 mmol/L 33 (H) Anion Gap 9 - 18 mmol/L 13 Calcium 8.6 - 10.0 mg/dL 9.3 eGFR- 41 eGFR-All Other Races . 34 WBC 3.70 - 11.00 k/uL 9.93 RBC 3.90 - 5.20 m/uL 3.57 (L) Hemoglobin 11.5 - 15.5 g/dL 10.8 (L) Hematocrit 36.0 - 46.0 % 34.3 (L) MCV 80.0 - 100.0 fL 96.1 MCH 26.0 - 34.0 pG 30.3 MCHC 30.5 - 36.0 g/dL 31.5 RDW-CV 11.5 - 15.0 % 13.8 Platelet Count 150 - 400 k/uL 180 MPV 9.0 - 12.7 fL 12.1 Absolute nRBC <0.01 k/uL <0.01 Cholesterol, Total <200 mg/dL 119 Triglyceride <150 mg/dL 92 HDL Cholesterol >39 mg/dL 43 LDL Cholesterol <100 mg/dL 58 Non HDL Cholesterol <130 mg/dL 76 Fasting Time hrs 2 VLDL Cholesterol <30 mg/dL 18 TC:HDL Ratio <5.10 2.77 LDL:HDL Ratio <2.54 1.35 Hemoglobin A1C 4.3 - 5.6 % 6.9 (H) Estimated Average Glucose mg/dL 151 TSH 0.400 - 5.500 uU/mL 4.370 ASSESSMENT AND PLAN: Encounter Diagnosis ICD-10-CM 1. Type 2 diabetes mellitus without complication, with long- term current use of insulin (HCC) E11.9 insulin glargine (LANTUS SOLOSTAR U-100 INSULIN) 100 unit/mL (3 mL) inpn Z79.4 COMP METABOLIC PANEL HGB A1C ALBUMIN/CREAT RATIO RND UR 2. Coronary artery disease involving [place] coronary artery of [place] heart without angina pectoris I25.10 3. CKD (chronic kidney disease) stage 4, GFR 15-29 ml/min ([facility]) N18.4 4. PVD (peripheral vascular disease) ([facility]) I73.9 5. Venous (peripheral) insufficiency I87.2 6. Vitamin D deficiency E55.9 VITAMIN D 25 HYDROXY 7. Secondary hyperparathyroidism ([facility]) N25.81 VITAMIN D 25 HYDROXY 8. Implantable cardioverter-defibrillator (ICD) in situ Z95.810 9. Non morbid obesity due to excess calories E66.09 10. Congestive heart failure, NYHA class 3, unspecified congestive heart failure type ([facility]) I50.9 11. Anemia, unspecified type D64.9 12. On home O2 Z99.81 13. Acquired hypothyroidism E03.9 TSH BLD T4 FREE/FREE THYROX 14. PAF (paroxysmal atrial fibrillation) ([facility]) I48.0 warfarin (COUMADIN) 4 mg tablet Additional Medical Conditions Last edited 08/31/17 23:05 EDT by Williams Parekh MD Above issues addressed with patient. Patient involved in shared decision making for management of her medical issues. History and medications reviewed. Epic updated as needed Refills taken care of and meds adjusted as indicated after reviewed history, exam and labs. Health Maintenance reviewed. Updated record and/or ordered tests as recorded. Encouraged on efforts at healthy diet and regular exercise and adequate sleep. Needs to keep working on diet and exercise with lifestyle changes for effective weight loss. Discussed need to stay hydrated. Overall doing pretty well given all her medical issues as noted above. Continue follow up with biofuels product manager. The majority of the visit was spent counseling and/or coordinating care for the patient. Eypt-id-loqy time was at least 25 minutes. Williams Parekh MD PROTHROMBIN TIME W/INR Collected: 08/21/2017 Status: F Source: [place] 12:09 PM [facility] REPOSITORY TYPE CODE TESTS RESULT OUT OF RANGE REFERENCE UNITS LAB L300.4150 11.7-14.9 SECONDS High PROTIME 28.7 LAB L300.4200 Normal INR 2.7 Performed By: #### L300.3900 #### [facility] [place], [address] CBC Collected: 08/17/2017 Status: F Source: [place] 12:04 PM [facility] REPOSITORY TYPE CODE TESTS RESULT OUT OF REFERENCE UNITS RANGE LAB WBC 3.70-11.00 k/uL WBC 9.93 LAB RBC 3.90-5.20 m/uL Low RBC 3.57 LAB HGB 11.5-15.5 g/dL Low Hemoglobin 10.8 LAB HCT 36.0-46.0 % Low Hematocrit 34.3 LAB MCV 80.0-100.0 fL MCV 96.1 LAB MCH 26.0-34.0 pG MCH 30.3 LAB MCHC 30.5-36.0 g/dL MCHC 31.5 LAB RDWCV 11.5-15.0 % RDW-CV 13.8 LAB PLTCT 150-400 k/uL Platelet Count 180 LAB MPV 9.0-12.7 fL MPV 12.1 LAB ABSNUC <0.01 k/uL Absolute nRBC <0.01 Performed By: #### CBC, LIPB #### [facility] [address] [place], [place] [address] LIPID PANEL, BASIC Collected: 08/17/2017 Status: F Source: [place] 12:04 PM [facility] REPOSITORY TYPE CODE TESTS RESULT OUT OF REFERENCE UNITS RANGE LAB CHOL <200 mg/dL Cholesterol 119 Result Comment: <200 mg/dL, Desirable 200-239 mg/dL, Borderline high >239 mg/dL, High LAB TRIGLY <150 mg/dL Triglyceride 92 Result Comment: <150 mg/dL, Normal 150-199 mg/dL, Borderline high 200-499 mg/dL, High >499 mg/dL, Very high LAB HDL >39 mg/dL HDL-Cholesterol 43 Result Comment: 40-59 mg/dL, Acceptable >59 mg/dL, High: Negative risk factor for coronary heart disease <40 mg/dL, Low: Positive risk factor for coronary heart disease LAB LDL <100 mg/dL LDL-Cholesterol 58 Result Comment: <100 mg/dL, Optimal 100-129 mg/dL, Near optimal/above optimal 130-159 mg/dL, Borderline high 160-189 mg/dL, High >189 mg/dL, Very high Secondary prevention optimal LDL Cholesterol levels are recommended to be < 70 mg/dL LAB NONHDL <130 mg/dL Non HDL Cholesterol 76 Result Comment: <130 mg/dL, Optimal 130-159 mg/dL, Near optimal/above optimal 160-189 mg/dL, Borderline high 190-219 mg/dL, High >219 mg/dL, Very high Secondary prevention optimal non HDL Cholesterol levels are recommended to be < 100 mg/dL LAB FT hrs Fasting Time 2 LAB VLDL <30 mg/dL VLDL Cholesterol 18 LAB TCHDL <5.10 TC:HDL Ratio 2.77 LAB LDLHDL <2.54 LDL:HDL Ratio 1.35 Result Comment: Reference: 1. National Cholesterol Education Program ATP III Guideline At-A-Glance Quick Desk Reference: National Heart, Lung, and Blood [place]. National Institutes of Health. 2001: NIH Publication No. 01-3305. 2. An International Atherosclerosis Society position paper: global recommendations for the management of dyslipidemia: executive summary, Atherosclerosis. 2014: 232(2):410-413. Performed By: #### CBC, LIPB #### [facility] [address] [place] [address] CNPTOUTREACH Observed: 08/08/2017 Status: COMPLETED Source: [place] 12:00 AM [facility] REPOSITORY Patient Outreach (FAMPST) ELIZABETH HO ([id number]) 1950 F Date Time Provider Department 08/08/17 WILLIAMS PAREKH FAMPST During your visit today, we recorded the following information about you: Allergies As of Date: 08/08/2017 Noted Allergy Reaction AUGMENTIN (AMOXICILLIN-POT CLAVUL*2013 2 - Rash SULFA (SULFONAMIDE ANTIBIOTICS) 01/10/2005 4 - Hives VANCOMYCIN 08/26/2013 10 - Anaphylaxis Comments: Per pharmacist. Patient tolerating PO Vancomycin. on 01/07 pt in [facility] and had ld syndrome rxn to [facility]. Date Reviewed: 03/15/2017 Reviewed by: Porsha Nicole Pin Sorter And Bagger - Fully Assessed Visit Diagnosis:Medication management [Z79.899] Order(s):CBC [SQCBC] Order #: [id number] FUTURE LIPID PANEL BASIC [SQLIPB] Order #: [id number] FUTURE Prescriptions as of 08/08/2017 Sig: X BD ULTRA-FINE SHORT PEN NEEDL* USE WITH INSULIN PEN FOUR FERMIN* X WARFARIN 4 MG TABLET 1 pill Mon,Tu ,Wed; half pi* AMIODARONE 200 MG TABLET Take 1 tablet by mouth three * X INSULIN LISPRO (U-100) 100 UN* Inject subcutaneously 5 units* HIDEAWAY PULSEDOSE OXYGEN SYS* Overnight pulse Ox check 327.* X INSULIN GLARGINE (U-100) 100 * Inject 42 Units subcutaneousl* X TRIAMCINOLONE ACETONIDE 0.1 %* Apply 1 application to affect* X NYSTATIN 100,000 UNIT/GRAM TO* Apply 1 application to affect* X LEVOTHYROXINE 75 MCG TABLET Take 1 tablet by mouth every * COMPOUNDED PRESCRIPTION Paper Tape. 2 . FUROSEMIDE 40 MG TABLET Take 1 tablet by mouth twice * SPIRONOLACTONE 25 MG TABLET Take 1 tablet by mouth once d* X METOLAZONE 5 MG TABLET Take 0.5 tablets by mouth onc* DOCUSATE SODIUM 100 MG CAPSULE Take 1 capsule by mouth twice* ATORVASTATIN 40 MG TABLET Take 40 mg by mouth once fernando* CARVEDILOL 3.125 MG TABLET Take 1 tablet by mouth twice * X * BLOOD SUGAR DIAGNOSTIC STRIPS (TEST 4x DAILY, 250.02) insul* * LANCETS Test 4 times daily 250.02, in* X * ERGOCALCIFEROL (VITAMIN D2) 5* Take 1 capsule by mouth once * * ACETAMINOPHEN 500 MG TABLET Take 500 mg by mouth every 4 * * ASPIRIN 81 MG TABLET Take one (1) tablet daily . Problem List As Of Date 08/08/2017 Noted Resolved Other and unspecified hyperlipidemia [E78.5] Priority: J More... Non morbid obesity due to excess calories [E66.* Priority: K More... More... More... Paroxysmal ventricular tachycardia [I47.2] INVALID FOR* Priority: D More... EDEMA [R60.9] INVALID FOR* Venous (peripheral) insufficiency [I87.2] INVALID FOR* More... Other malaise and fatigue [R53.81, R53.83] INVALID FOR*11/29/2010 Cellulitis of left leg [L03.116] INVALID FOR*02/16/2017 More... More... Dialysis patient [Z99.2] INVALID FOR*04/18/2013 More... CKD (chronic kidney disease) stage 4, GFR 15-29* Priority: E More... Varicose veins of lower extremities with ulcer *INVALID FOR* Vitamin D deficiency [E55.9] INVALID FOR* More... Secondary hyperparathyroidism [N25.81] INVALID FOR* CAD (coronary artery disease), [place] coronary *INVALID FOR* Priority: F More... More... Torsades de pointes (HCC) [I47.2] INVALID FOR* Priority: B More... Aortic stenosis [I35.0] INVALID FOR* Priority: B More... Mitral stenosis [I05.0] INVALID FOR* Priority: D More... More... More... More... More... On home O2 [Z99.81] INVALID FOR* Priority: K More... Elevated bilirubin [R17] INVALID FOR*03/23/2013 More... More... More... PVD (peripheral vascular disease) [I73.9] INVALID FOR* Priority: K More... More... More... More... Anemia [D64.9] INVALID FOR* Priority: B More... Bursitis of left shoulder [M75.52] INVALID FOR*02/16/2017 Urinary incontinence [R32] INVALID FOR* Priority: D More... More... Pressure ulcer, other site(707.09) [L89.899] INVALID FOR*02/16/2017 Priority: L More... More... More... Implantable cardioverter-defibrillator (ICD) in*INVALID FOR* More... More... DVT prophylaxis [YFI1182] INVALID FOR* More... Thrombocytopenia [D69.6] INVALID FOR* More... More... Constipation [K59.00] INVALID FOR* Anticoagulated on Coumadin [Z51.81, Z79.01] INVALID FOR*10/11/2013 Severe aortic stenosis [I35.0] INVALID FOR*01/19/2017 Priority: A More... CHF (congestive heart failure), NYHA class III *INVALID FOR* Priority: B More... More... C. difficile diarrhea [A04.72] INVALID FOR*10/11/2013 More... Gout, arthritis [M10.9] INVALID FOR* More... Leukocytosis [D72.829] INVALID FOR*02/16/2017 Priority: B More... 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 Gait instability [R26.81] INVALID FOR* More... PAF (paroxysmal atrial fibrillation) (HCC) [I48*INVALID FOR* Diabetes mellitus (HCC) [E11.9] INVALID FOR* Encounter Status:Closed by KASHIF TORRES on 02/02/18 PROTHROMBIN TIME W/INR Collected: 08/07/2017 Status: F Source: [place] 11:38 AM [facility] REPOSITORY TYPE CODE TESTS RESULT OUT OF RANGE REFERENCE UNITS LAB L300.4150 11.7-14.9 SECONDS High PROTIME 25.9 LAB L300.4200 Normal INR 2.4 Performed By: #### L300.3900 #### [facility] [address] [place], [address] PACEMAKER CHECK Observed: 08/03/2017 Status: F Source: [place] 11:51 AM [facility] REPOSITORY [facility] [address] [place] [address] Pacemaker Check Date of Service: 07/03/17 1607 MR#: [id number] Acct: [id number] Name: ELIZABETH HO Rep #: [id number] : 1950 From: Lela Bullock Age/Sex: 66/F [place] [facility] [place]: Signed Comments Summary Comments: Dual Chamber ICD Evaluation: Interrogation completed per BROKE BEATER OPERATOR order d/t pt in ER last night for lightheadedness, sweatiness and vomiting. Interrogation shows no VT/VF episodes and 1 MS episode, <1% total time since last check 04/11/17. Stored e-gram for MS shows on 04/25/17 atrial flutter with appropriate MS for approx 1 min 23 secs. No episodes of arrhythmia noted for today or for yesterday. Left pectoral pocket/incision w/o s/s of infection or erosion. Pt offers no cardiac complaints at present. Presenting rhythm shows NSR @ 62 bpm with PAC's. Battery longevity approx 10 yrs. NATURAL GAS TECHNICIAN=<1%. Lead impedances, sensing and pace/sense thresholds remain stable. RV amplitude decreased with adequate safety margin. Counters cleared. Next f/u appt scheduled for in 3 mos. Pt had o.v today with NORMA Díaz for further cardiac evaluation. Device Device Date Interviewed: 06/21/17 Follow-up Location: in office Interview Reason: physician request Php Web Developer: Impossible Software Name: Jennifer IS-1/[id number]-1-DR Model: [id number] Serial #: [id number] Implant Date: 08/14/14 Year(s): 2 Implant Physician: Dr. Luis Manuel Badillo Patient Characteristics Atrial Indication: Paroxysmal atrial fibrillation, Atrial tachycardia Ventricular Indication: Nonsustained VT Patient Substrate: Nonischemic cardiomyopathy Ejection fraction %: 45 to 49 (12/19/2016) By: Echo Underlying rhythm: Sinus rhythm Pacemaker Dependent: No Device Characteristics Device: Dual Chamber Type: Implantable defibrillator Remote Follow-Up: No Device Physical Exam Yes Incision well healed Leads Lead #1 Php Web Developer Lead 1: Guidant Model Lead 1: [id number] Serial# Lead 1: [id number] Date Implanted Lead 1: 06/25/07 Position Lead 1: RA Lead #2 Php Web Developer Lead 2: Medtronic Model Lead 2: [id number] Serial# Lead 2: [id number] Date Implanted Lead 2: 06/25/07 Position Lead 2: RV Additional Details: RV pace/sense lead Lead #3 Php Web Developer Lead 3: Guidant Model Lead 3: [id number] Serial# Lead 3: [id number] Date Implanted Lead 3: 07/21/07 Position Lead 3: RV Additional Details: RV shock lead, pacing part capped Diagnostics Pacing % RA Pacin % RV Pacin Mode Switching Total # Episodes: 0 % Mode switched: 0 Arrhythmias VF Episodes: 0 Fast VT Episodes: 0 Non-Sust Episodes: 0 Measurements Battery Charge Time (Sec): 10.4 Battery Status: [place] Predicted Remaining Longevity (months or years): 10 years RA Measurements Signal Amplitude (mV): 2.8 Impedance (Ohms): 438 Threshold Voltage: 0.5 @ PW(ms): 0.4 RV Measurements Signal Amplitude (mV): 7.9 Impedance (Ohms): 367 Threshold Voltage: 1.0 @ PW(ms): 0.4 Derek Settings Derek Settings Pacemaker Mode DDD Lower Rate Limit (bpm) 60 Hysteresis Rate (bpm) Max Track Rate (bpm) 120 Max Sensor Rate (bpm) Max AV Delay (msec) 200 Max PV Delay (msec) Max PVARP (msec) 300 Output/Sensing V/PW (ms) 2.0/0.4 2.5/0.4 Sensitivity RA RV LV AGC 0.25 0.6 Comments: Billing Codes ICD Device Billing: ICD Dev Prog Eval, Dual Assessment AND Plan Problems 1. ICD (implantable cardioverter-defibrillator) in place Z95.810 2. Cardiomyopathy in disease classified elsewhere I43 3. Paroxysmal atrial tachycardia I47.1 4. Ventricular flutter I49.02 5. Ventricular tachycardia (paroxysmal) I47.2 S/P AICD 07/03/17 1699 <Electronically signed by Lela Bullock > Date Lela Bullock 08/03/17 1151<Electronically signed by Michael See MD> Cosigner Signature: Date (if applicable) Michael See MD CC: CNOV Observed: 08/01/2017 Status: COMPLETED Source: [place] 2:00 PM [facility] REPOSITORY Office Visit (INTMWS) ELIZABETH HO ([id number]) 1950 F Date Time Provider Department 4/10/18 2:00 PM RON MACIAS ([place]) [place] During your visit today, we recorded the following information about you: Temperature Pulse Respiration Blood pressure 98.4 degrees 65/minute 16/minute 128/82 Weight 93.4 kg Ron Macias APRN.CNP 08/01/2017 2:28 PM Signed CC: Patient presents with: Recheck: [facility] follow up, cellulitits HPI Elizabeth Ho is a 67 year old female who presents today for [facility] ER follow up from 07/21/17. Patient presented to the ER with redness to her LLE x1 day. Patient has chronic lymphedema requiring leg wraps that a visiting nurse applies twice a week. Visiting nurse noted the redness and instructed patient to seek further evaluation. Patient was found to have erythema from below the knee to the toes of the LLE. Patient was found to have elevated WBC of 11.2, BUN 79 and Creatinine 1.73 during visit. Nicki Duplex revealed no evidence of DVT. Patient was diagnosed with Cellulitis of the LLE and admitted for IV antibiotics, Levaquin. Patient's WBC returned to normal the following day as well as the BUN and Creatinine were trending down. Patient reports she was admitted x 4days and discharged home with Doxycycline which she has since completed. Patient's visiting nurse was in this AM and wrapped her legs, patient notes that the nurse reported her legs are much better, the swelling related to the infection is resolved and the redness is almost resolved. Patient denies any fevers, chills, confusion or new or worsening redness of LLE. REVIEW OF SYSTEMS General: no fevers, no chills, no night sweats, no recurrent infections, no change in appetite, no change in energy and no significant changes in weight Respiratory: no cough, no wheezing, no shortness of breath, no hemoptysis Cardiovascular: no chest pain, no chest pressure, no palpitations and no swelling GI: No nausea, vomiting, or diarrhea Extremities: See HPI PAST MEDICAL HISTORY Diagnosis Date - Acute on chronic combined systolic and diastolic congestive heart failure (HCC) 03/20/2013 NICM by outside echo EF 35%, stage II diastolic dysfunction 03/19 RHC: CI by Gudelia 2.75, SVR 1129, PA 47/18, wedge 22 On admission 06/2013, clinically euvolaemic -not on ACEi/ARB currently with hx of renal dysfunction and severe -continue carvedilol -ICD in situ - Interrogate ICD to determine if decompensation is due to underlying arrhythmia (h/o VT/AF). Will need to call on Monday morning. - Decrease coreg to 3.125 mg BID. Attempted Hydralazine but patient did not tolerate due to hypotension on 07/06. - Slight bump in Cr 07/07 so decrease Lasix to 40 mg BID. Will continue Aldactone but will need to monitor CrCl. -Will need follow up labs- arranged for at [facility] - Anemia 05/15/2013 Chronic anemia of unclear etiology. Received 2 units PRBC transfusion in April at OSH. Previous iron studies in our system suggestive of AoCD. Reports Colonoscopy/EGD ~ 2 years ago which did not show any major abnormalities. Presents with severe anemia in setting of supratherapeutic INR this admission. Denies BRBPR/melena but may have bleeding AVMs in the setting of severe . Also in setting of thrombocytopenia. Concern for DIC - fibrinogen negative -Received 6u PRBC since admission, stools melanotic Plan: - Monitor H/H, monitor coags/plts, check hemolysis labs as add-ons insufficient yesterday - NPO for possible EGD/Cscope today-ANDgt; revealed polyps but bowel prep was inadequate, plan for capsule study 07/24/2013, NPO. -ANDgt;capsule study neg for bleed. Pt needs elective colonoscopy as out pt to remove polyps. Recheck CBC next Monday. August 02. Fax results to DR George. - Aortic stenosis 03/20/2013 Progressive SOB on exertion, heart failure symptoms over the past 1 week preceding admission 07/05/2013. Known to have severe calcific tri-leaflet aortic valve stenosis. Denies chest pain, syncope, pre syncope. Echo: ALEX 0.81cm2, dimensionless index 0.23, pk/mn gradients 62/35 mmHg on 07/08/2013 Plan: - Planned for TF TAVR on 07/23/2013 - possibly delayed given likely GIB - Recently postponed due to UTI - will recheck UA and urine culture. Now postponed due to anemia. 07/26/2013 DC to SNF and return for TAVR at a later date. - Aortic valve disorders - Atrial fibrillation (HCC) - Atrial fibrillation ([facility]) 04/02/2005 Currently NSR Plan: - Supratherapeutic INR on presentation, holding Warfarin - holding heparin given GIB and risksANDgt;benefits - on carvedilol - ICD in place - Atrial fibrillation ([facility]) 04/02/2005 H/o pAF on coumadin and amiodarone Warfarin was stopped last admission on 07/23 for severe anemia concerning for GI bleed Plan: - currently in NSR - c/w amiodarone - Monitor Hb - Back pain 03/21/2013 Right sided back, shoulder, and arm pain s/p fall 03/14 Now chronic pain. Cont PRN meds R shoulder blade tender to touch-ANDgt; beside MS UTI contributing, started tx for UTI - Bursitis of left shoulder 05/15/2013 - Cellulitis of left leg 01/29/2010 [facility] ER 01/27/10 transferred to [facility] Dx: sepsis, afib, elevated INR - Chest pain, atypical 03/04/2014 Prior cath in 02/2013 had mild nonobstructive CAD. ACS possible but less likely. Already on ASA/plavix. Will cotninue. Hold on heparin gtt unless has further pain. First set of biomarkers were negative. Will continue to cycle tonight. IF positive will consider LHC today. If negative the patient is reluctant for any stress test so this will need to be considered. Other ddx such as PE or dissection less likely. No tachycardia or worsened SOB. CP resolved currently. Echo in the AM -cath 03-04 mild nonobstructive CAD; no indication for revascularization. -continued to have occ sharp chest pain -ANDgt;LHC mild nonobstructive CAD best treated with medical management. Device check ruled OUT VT/VF. Echo showed Stephanie aortic valve well seated, pk/mn gradients 30/17. - Chronic anticoagulation Managed by Dr. See (cardiology; [facility]) - CKD (chronic kidney disease) stage 4, GFR 15-29 ml/min ([facility]) -On HD in 2009 for about 6-7 months, but has since improved to the point where she no longer requires it -stable Plan: - monitor renal function - avoid nephrotoxins - DM (diabetes mellitus) type II uncontrolled with renal manifestation Diabetes mellitus NIDDM - ESRD on hemodialysis ([facility]) Dr. Luo ([place]) - Failure to extubation 08/26/2013 Patient was extubated in OR after the procedure. She was noted to be agitated so she was put on CPAP with pressure of 5. She was re intubated around 1 pm for end tidal CO2 of 52. Currently on SIMV 14 FiO2 30% Peep 5 Plan Resolved Transferred to the floor 5-7 - GI bleed 08/26/2013 - Heart failure, systolic and diastolic, chronic ([facility]) 07/21/2013 NICM EF 45%, stage I diastolic dysfunction on most recent Echo 06/2013 On admission, clinically euvolemic Plan: - not currently on ACEi/ARB due to renal dysfunction - on carvedilol - continue spironolactone - hold Lasix 40mg PO BID until acute anemia addressed but will diurese with transfusions as needed - ICD in situ - Heart failure, systolic and diastolic, chronic ([facility]) 07/21/2013 NICM EF 45%, stage I diastolic dysfunction on most recent Echo 06/2013 On admission, clinically euvolemic Plan: - not currently on ACEi/ARB due to renal dysfunction - on carvedilol - continue spironolactone - hold Lasix 40mg PO BID until acute anemia addressed but will diurese with transfusions as needed - ICD in situ - Hives 07/29/2013 - Hyperlipidemia - Hypertension - Hypokalemia 03/20/2013 Monitor and replete prn to keep ANDgt;4.0 - Hypomagnesemia 03/20/2013 Replete to keep ANDgt;2.0 - Hypothyroidism 07/05/2013 - Leukocytosis 03/05/2014 No fever -WBC bumped up 12.55 -ordered u/a and culture-ANDgt; UA suggests UTI urine cx pending, start Cipro. 03/07/2014 culture is pending, WBC decreased to 7.92 - Mechanical complication of other vascular device, implant, and graft (HCC) 09/01/2010 - Morbid obesity (HCC) - Morbid obesity ([facility]) Nutrition consult - Muscular deconditioning 09/14/2013 - Non-ischemic cardiomyopathy (HCC) Cardiomyopathy--[place] - Paroxysmal ventricular tachycardia (HCC) 04/02/2005 H/o VT/TdP s/p ICD. S/p defibrillator firing on 03/15/13 in the context of hypokalemia. Electrically quiescent on admission 06/2013 Plan: Monitor lytes and replete prn - Peripheral vascular disease (HCC) - Pressure ulcer, other site(707.09) 07/07/2013 bilateral ischium stage II POA. Xenoderm per nursing. This was present on admission. cont wound care. Also bilateral heel pressure ulcers stage 1 poa - Rectus sheath hematoma 03/29/2013 3.8 cm rectus hematoma noted on CT scan Complaining of some fleeting nausea, no pain Monitor blood counts - Renal failure 05/07/2010 Renal status stable. Off dialysis - S/P TAVR (transcatheter aortic valve replacement) 09/14/2013 - Severe aortic stenosis 08/26/2013 S/p #26 ES TF-TAVR. Exam without murmurs of AI or progressive . Will check echo in the AM but no reason to suggest valvular malfunction. Cont ASA/plavix Echo EF 45%, Bond-Stephanie prosthetic aortic valve (size #26). The peak gradient is 30 mmHg and the mean gradient is 17 mmHg. S/P transcathetaer AVR ( Bond Stephanie # 26) with mild anterior AI (seen best in initial parasternal views. - Staphylococcal infection of skin lower sheen both, - STASIS DERMATITIS 12/26/2007 Chronic changes of both legs, no recent change per patient, Uses emollient to good effect at home, will continue - Thrombocytopenia (HCC) 07/26/2013 Anemia with thrombocytopenia that is resolving. - Thrombophlebitis arm 03/22/2013 Assessment: DARREL NOBLE PIV site from OSH now warm, red, and firm with purulent drainage -BC from OSH report MSSA -03/25 IANDamp;D to left antecubital fossa Plan: - Continue oxacillin IV 2 gm q4 hrs - Anticipate CoPAT- (ordered placed for david catheter) - ID following - BC x2 redrawn 03/30: ID rec to keep oxacillin going for 6 weeks, will write COPAT. David placed. Will go to [facility] on Monday. - Type II or unspecified type diabetes mellitus without mention of complication, not stated as uncontrolled 01/10/2005 - Check HbA1C - Lantus and prandial lispro with SSI coverage - BS poorly controlled HD #1. Increased prandial insulin dosing and Lantus. -HGA1C ANDgt;10, blood sugars poorly controlled, increased Lispro per meal, increased Lantus HS and consulted endo -Will follow rec and schedule follow up with endo at [place] - UTI (lower urinary tract infection) [employer] not caused by insertion of quiroz 07/09/2013 07/08/2013 Urine culture suggests UTI s/p tx with Augmentin - Readmitted 07/21/2013UA/Urine culture checked on admission to the floor- UA negative-ANDgt; urine culture ANDgt;100,000 lactose positive gram - bacilli. This was not quiroz induced this was [employer]. Will discuss with ID - monitor for symptoms- ANDgt; no symptoms, no fever and WBC WNL. Spoke with Dr. Shay from ID who said no signs/symptoms of UTI so would not treat with ATBs, they recommended remove quiroz-ANDgt; but need urology to see pt first. Curbsided urology fellow who recommended removing quiroz, consult if difficulty difficulty voiding, then follow up with urology outpt at a later time. 07/24/[address] George due to upcoming valve procedure and + urine culture PAST SURGICAL HISTORY Procedure Laterality Date - APPENDECTOMY - AV FUSE, UPPR ARM, CEPHALIC 06-03-10 RIGHT UPPER ARM - LEFT HEART CATH,PERCUTANEOUS 05/27/1997 Cardiac cath, L heart ANDamp; R heart - MAMM DIAG 2009 - REMOVAL SHARONA CVC W/O PUMP 09/01/10 Removal right IJ catheter - REMOVE CATARACT, INSERT LENS,EX - SIGMOIDOSCOPY FLEX DIAG 01/06/99 Sigmoidoscopy - TONSILLECTOMY HX - TOTAL ABDOM HYSTERECTOMY Hysterectomy, BERNARDA, BSO ALLERGIES Augmentin [Amoxicillin-Pot Clavulanate]; Sulfa (Sulfonamide Antibiotics); Vancomycin MEDICATIONS BD INSULIN PEN NEEDLE UF 31 gauge x 09/06ANDquot; ndle USE WITH INSULIN PEN FOUR TIMES DAILY warfarin (COUMADIN) 4 mg tablet 1 pill Mon, ,Wed; half pill , Mon, Mon, Mon Managed by Dr. See amiodarone (PACERONE) 200 mg tablet Take 1 tablet by mouth three times daily. Per hospital discharge 12/21/16 Insulin Lispro, Human, (HUMALOG KWIKPEN) 100 unit/mL inpn Inject subcutaneously 5 units with breakfast, 8 units with lunch, and 8 units with dinner dinner OXYGEN-AIR DELIVERY SYSTEMS (HIDEAWAY PULSEDOSE OXYGEN SYST MISC) Overnight pulse Ox check 327.24 Nocturnal hypoxemia, and Daytime as needed insulin glargine (LANTUS SOLOSTAR) 100 unit/mL (3 mL) inpn Inject 42 Units subcutaneously once daily. triamcinolone acetonide (KENALOG) 0.1 % cream Apply 1 application to affected area twice daily. Apply sparingly to area for rash/itching. Use until rash and itching resolves nystatin (MYCOSTATIN) cream Apply 1 application to affected area twice daily. Continue for 1 week after rash resolves levothyroxine (SYNTHROID) 75 mcg tablet Take 1 tablet by mouth every morning on an empty stomach For Thyroid COMPOUNDED PRESCRIPTION Paper Tape. 2 ANDquot;. furosemide (LASIX) 40 mg tablet Take 1 tablet by mouth twice daily. spironolactone (ALDACTONE) 25 mg tablet Take 1 tablet by mouth once daily. metOLAzone (ZAROXOLYN) 5 mg tablet Take 0.5 tablets by mouth once daily. Every other day docusate sodium (COLACE) 100 mg capsule Take 1 capsule by mouth twice daily as needed for Constipation. atorvastatin (LIPITOR) 40 mg tablet Take 40 mg by mouth once daily. carvedilol 3.125 mg tablet Take 1 tablet by mouth twice daily with meals. blood sugar diagnostic (ONE TOUCH ULTRA TEST) test strip (TEST 4x DAILY, 250.02) insulin dep uncontrolled Lancets (ONE TOUCH DELICA) lancets Test 4 times daily 250.02, insulin dep ergocalciferol, vitamin D2, 50,000 unit capsule Take 1 capsule by mouth once each week. acetaminophen (TYLENOL EXTRA STRENGTH) 500 mg ORAL tablet Take 500 mg by mouth every 4 hours as needed. ASPIRIN 81 MG ORAL TAB Take one (1) tablet daily . FAMILY HISTORY Problem Relation Age of Onset - Heart Father - Stroke Father - cardiomyopathy [OTHER] Father - Stroke Maternal Grandmother - Heart Maternal Grandmother - Stroke Maternal Grandfather - Heart Maternal Grandfather - Stroke Paternal Grandmother - Heart Paternal Grandmother - Stroke Paternal Grandfather - Heart Paternal Grandfather - Heart Paternal Uncle Social History Substance Use Topics - Smoking status: Never Smoker - Smokeless tobacco: Never Used Comment: Parents non-smokers. - Alcohol use No PHYSICAL EXAM BP 128/82 Pulse 65 Temp 36.9 ?C (98.4 ?F) (Temporal Artery) Resp 16 Wt 93.4 kg (206 lb) SpO2 93% BMI 33.25 kg/m2 General Appearance: well appearing, in no acute distress, alert Skin: Skin color, texture, turgor normal for age; positives: Ecchymosis: scattered over upper extremities, patient is on coumadin Lungs: Lungs clear to auscultation. No wheezing, rhonchi, rales Heart: RRR without murmur, gallop, or rubs. No ectopy Left Lower Extremities: No deformities, clubbing or cyanosis.Pulses: 2+, Edema: Chronic generalized, patients legs are wrapped d/t lymphedema BONE DENSITY due on 2013 URINE ALBUMIN CREATININE RATIO due on 01/03/2015 HBA1C due on 10/24/2016 LDL due on 06/23/2017 MAMMOGRAM due on 08/30/2017 DILATED RETINAL EXAM due on 12/14/2017 DIABETIC FOOT EXAM due on 03/13/2018 TETANUS due on 10/11/2021 COLORECTAL CANCER SCREENING,SEE MODIFIER due on 07/24/2023 ADULT PREVNAR-13 Completed INFLUENZA Completed HEPATITIS C SCREENING Completed PNEUMOVAX AGE 65 AND OVER WITH 5YR LOOKBACK Completed ASSESSMENT/PLAN: 1. Cellulitis of left lower extremity - ICD9: 682.6, ICD10: L03.116 - No acute or concerning exam findings this visit - Resolving. No indication for additional antibiotics at this time - Discussed s/s of cellulitis and when to see medical treatment Discussed previously ordered labs pending, would like to recheck BUN/Creat following hospitalization. Patient indicated that she did not have time to complete today and will return. Prescription instructions reviewed with patient as applicable. Potential red flag symptoms discussed with the patient. Reviewed appropriate action plan to take if red flag symptoms occur. Patient agreeable to treatment plan. Ron Macias APRN.MECHATRONICS ENGINEER Referring Provider: SELF [[id number]] Allergies As of Date: 08/01/2017 Noted Allergy Reaction AUGMENTIN (AMOXICILLIN-POT CLAVUL*2013 2 - Rash SULFA (SULFONAMIDE ANTIBIOTICS) 01/10/2005 4 - Hives VANCOMYCIN 08/26/2013 10 - Anaphylaxis Comments: Per pharmacist. Patient tolerating PO Vancomycin. on 01/07 pt in [facility] and had ld syndrome rxn to [facility]. Date Reviewed: 03/15/2017 Reviewed by: Porsha Nicole Pin Sorter And Bagger - Fully Assessed Reason for Visit: Recheck [92] Cmt: [facility] follow up, cellulitits Primary Visit Diagnosis:Cellulitis of left lower extremity [L03.116] Prescriptions as of 08/01/2017 Sig: BD INSULIN PEN NEEDLE UF SHOR* USE WITH INSULIN PEN FOUR FERMIN* WARFARIN 4 MG TABLET 1 pill Mon, ,Wed; half pi* AMIODARONE 200 MG TABLET Take 1 tablet by mouth three * INSULIN LISPRO (U-100) 100 UN* Inject subcutaneously 5 units* HIDEAWAY PULSEDOSE OXYGEN SYS* Overnight pulse Ox check 327.* INSULIN GLARGINE (U-100) 100 * Inject 42 Units subcutaneousl* TRIAMCINOLONE ACETONIDE 0.1 %* Apply 1 application to affect* NYSTATIN 100,000 UNIT/GRAM TO* Apply 1 application to affect* LEVOTHYROXINE 75 MCG TABLET Take 1 tablet by mouth every * COMPOUNDED PRESCRIPTION Paper Tape. 2 . FUROSEMIDE 40 MG TABLET Take 1 tablet by mouth twice * SPIRONOLACTONE 25 MG TABLET Take 1 tablet by mouth once d* METOLAZONE 5 MG TABLET Take 0.5 tablets by mouth onc* DOCUSATE SODIUM 100 MG CAPSULE Take 1 capsule by mouth twice* ATORVASTATIN 40 MG TABLET Take 40 mg by mouth once fernando* CARVEDILOL 3.125 MG TABLET Take 1 tablet by mouth twice * * BLOOD SUGAR DIAGNOSTIC STRIPS (TEST 4x DAILY, 250.02) insul* * LANCETS Test 4 times daily 250.02, in* * ERGOCALCIFEROL (VITAMIN D2) 5* Take 1 capsule by mouth once * * ACETAMINOPHEN 500 MG TABLET Take 500 mg by mouth every 4 * * ASPIRIN 81 MG TABLET Take one (1) tablet daily . Problem List As Of Date 08/01/2017 Noted Resolved Other and unspecified hyperlipidemia [E78.5] Priority: J More... Non morbid obesity due to excess calories [E66.* Priority: K More... More... More... Paroxysmal ventricular tachycardia [I47.2] INVALID FOR* Priority: D More... EDEMA [R60.9] INVALID FOR* Venous (peripheral) insufficiency [I87.2] INVALID FOR* More... Other malaise and fatigue [R53.81, R53.83] INVALID FOR*11/29/2010 Cellulitis of left leg [L03.116] INVALID FOR*02/16/2017 More... More... Dialysis patient [Z99.2] INVALID FOR*04/18/2013 More... CKD (chronic kidney disease) stage 4, GFR 15-29* Priority: E More... Varicose veins of lower extremities with ulcer *INVALID FOR* Vitamin D deficiency [E55.9] INVALID FOR* More... Secondary hyperparathyroidism [N25.81] INVALID FOR* CAD (coronary artery disease), [place] coronary *INVALID FOR* Priority: F More... More... Torsades de pointes (HCC) [I47.2] INVALID FOR* Priority: B More... Aortic stenosis [I35.0] INVALID FOR* Priority: B More... Mitral stenosis [I05.0] INVALID FOR* Priority: D More... More... More... More... More... On home O2 [Z99.81] INVALID FOR* Priority: K More... Elevated bilirubin [R17] INVALID FOR*03/23/2013 More... More... More... PVD (peripheral vascular disease) [I73.9] INVALID FOR* Priority: K More... More... More... More... Anemia [D64.9] INVALID FOR* Priority: B More... Bursitis of left shoulder [M75.52] INVALID FOR*02/16/2017 Urinary incontinence [R32] INVALID FOR* Priority: D More... More... Pressure ulcer, other site(707.09) [L89.899] INVALID FOR*02/16/2017 Priority: L More... More... More... Implantable cardioverter-defibrillator (ICD) in*INVALID FOR* More... More... DVT prophylaxis [FSE2124] INVALID FOR* More... Thrombocytopenia [D69.6] INVALID FOR* More... More... Constipation [K59.00] INVALID FOR* Anticoagulated on Coumadin [Z51.81, Z79.01] INVALID FOR*10/11/2013 Severe aortic stenosis [I35.0] INVALID FOR*01/19/2017 Priority: A More... CHF (congestive heart failure), NYHA class III *INVALID FOR* Priority: B More... More... C. difficile diarrhea [A04.72] INVALID FOR*10/11/2013 More... Gout, arthritis [M10.9] INVALID FOR* More... Leukocytosis [D72.829] INVALID FOR*02/16/2017 Priority: B More... 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 Gait instability [R26.81] INVALID FOR* More... PAF (paroxysmal atrial fibrillation) (HCC) [I48*INVALID FOR* Diabetes mellitus (HCC) [E11.9] INVALID FOR* Encounter Status:Closed by RON MACIAS CNP on 08/01/17 PROGRESS Observed: 08/01/2017 Status: COMPLETED Source: [place] 1:45 PM [facility] [place] RE[facility] HNO ID: [id number] Author: Ron Macias Service: (none) Author Type: Nurse Practitioner Type: Progress Notes Filed: 08/01/2017 2:28 PM Note Text: CC: Patient presents with: Recheck: [facility] follow up, cellulitits HPI Elizabeth Ho is a 67 year old female who presents today for [facility] ER follow up from 07/21/17. Patient presented to the ER with redness to her LLE x1 day. Patient has chronic lymphedema requiring leg wraps that a visiting nurse applies twice a week. Visiting nurse noted the redness and instructed patient to seek further evaluation. Patient was found to have erythema from below the knee to the toes of the LLE. Patient was found to have elevated WBC of 11.2, BUN 79 and Creatinine 1.73 during visit. Nicki Duplex revealed no evidence of DVT. Patient was diagnosed with Cellulitis of the LLE and admitted for IV antibiotics, Levaquin. Patient's WBC returned to normal the following day as well as the BUN and Creatinine were trending down. Patient reports she was admitted x 4days and discharged home with Doxycycline which she has since completed. Patient's visiting nurse was in this AM and wrapped her legs, patient notes that the nurse reported her legs are much better, the swelling related to the infection is resolved and the redness is almost resolved. Patient denies any fevers, chills, confusion or new or worsening redness of LLE. REVIEW OF SYSTEMS General: no fevers, no chills, no night sweats, no recurrent infections, no change in appetite, no change in energy and no significant changes in weight Respiratory: no cough, no wheezing, no shortness of breath, no hemoptysis Cardiovascular: no chest pain, no chest pressure, no palpitations and no swelling GI: No nausea, vomiting, or diarrhea Extremities: See HPI PAST MEDICAL HISTORY Diagnosis Date - Acute on chronic combined systolic and diastolic congestive heart failure (HCC) 03/20/2013 NICM by outside echo EF 35%, stage II diastolic dysfunction 03/19 RHC: CI by Gudelia 2.75, SVR 1129, PA 47/18, wedge 22 On admission 06/2013, clinically euvolaemic -not on ACEi/ARB currently with hx of renal dysfunction and severe -continue carvedilol -ICD in situ - Interrogate ICD to determine if decompensation is due to underlying arrhythmia (h/o VT/AF). Will need to call on Monday morning. - Decrease coreg to 3.125 mg BID. Attempted Hydralazine but patient did not tolerate due to hypotension on 07/06. - Slight bump in Cr 07/07 so decrease Lasix to 40 mg BID. Will continue Aldactone but will need to monitor CrCl. -Will need follow up labs- arranged for at SNF - Anemia 05/15/2013 Chronic anemia of unclear etiology. Received 2 units PRBC transfusion in April at OSH. Previous iron studies in our system suggestive of AoCD. Reports Colonoscopy/EGD ~ 2 years ago which did not show any major abnormalities. Presents with severe anemia in setting of supratherapeutic INR this admission. Denies BRBPR/melena but may have bleeding AVMs in the setting of severe . Also in setting of thrombocytopenia. Concern for DIC - fibrinogen negative -Received 6u PRBC since admission, stools melanotic Plan: - Monitor H/H, monitor coags/plts, check hemolysis labs as add-ons insufficient yesterday - NPO for possible EGD/Cscope today-> revealed polyps but bowel prep was inadequate, plan for capsule study 07/24/2013, NPO. ->capsule study neg for bleed. Pt needs elective colonoscopy as out pt to remove polyps. Recheck CBC next Monday. August 02. Fax results to DR George. - Aortic stenosis 03/20/2013 Progressive SOB on exertion, heart failure symptoms over the past 1 week preceding admission 07/05/2013. Known to have severe calcific tri-leaflet aortic valve stenosis. Denies chest pain, syncope, pre syncope. Echo: ALEX 0.81cm2, dimensionless index 0.23, pk/mn gradients 62/35 mmHg on 07/08/2013 Plan: - Planned for TF TAVR on 07/23/2013 - possibly delayed given likely GIB - Recently postponed due to UTI - will recheck UA and urine culture. Now postponed due to anemia. 07/26/2013 DC to SNF and return for TAVR at a later date. - Aortic valve disorders - Atrial fibrillation (HCC) - Atrial fibrillation (HCC) 04/02/2005 Currently NSR Plan: - Supratherapeutic INR on presentation, holding Warfarin - holding heparin given GIB and risks>benefits - on carvedilol - ICD in place - Atrial fibrillation ([facility]) 04/02/2005 H/o pAF on coumadin and amiodarone Warfarin was stopped last admission on 07/23 for severe anemia concerning for GI bleed Plan: - currently in NSR - c/w amiodarone - Monitor Hb - Back pain 03/21/2013 Right sided back, shoulder, and arm pain s/p fall 03/14 Now chronic pain. Cont PRN meds R shoulder blade tender to touch-> beside MS UTI contributing, started tx for UTI - Bursitis of left shoulder 05/15/2013 - Cellulitis of left leg 01/29/2010 [facility] ER 01/27/10 transferred to [facility] Dx: sepsis, afib, elevated INR - Chest pain, atypical 03/04/2014 Prior cath in 02/2013 had mild nonobstructive CAD. ACS possible but less likely. Already on ASA/plavix. Will cotninue. Hold on heparin gtt unless has further pain. First set of biomarkers were negative. Will continue to cycle tonight. IF positive will consider LHC today. If negative the patient is reluctant for any stress test so this will need to be considered. Other ddx such as PE or dissection less likely. No tachycardia or worsened SOB. CP resolved currently. Echo in the AM -cath 03-04 mild nonobstructive CAD; no indication for revascularization. - continued to have occ sharp chest pain ->LHC mild nonobstructive CAD best treated with medical management. Device check ruled OUT VT/VF. Echo showed Stephanie aortic valve well seated, pk/mn gradients . - Chronic anticoagulation Managed by Dr. See (cardiology; [facility]) - CKD (chronic kidney disease) stage 4, GFR 15-29 ml/min ([facility]) -On HD in 2009 for about 6-7 months, but has since improved to the point where she no longer requires it -stable Plan: - monitor renal function - avoid nephrotoxins - DM (diabetes mellitus) type II uncontrolled with renal manifestation Diabetes mellitus NIDDM - ESRD on hemodialysis ([facility]) Dr. Luo ([place]) - Failure to extubation 08/26/2013 Patient was extubated in OR after the procedure. She was noted to be agitated so she was put on CPAP with pressure of 5. She was re intubated around 1 pm for end tidal CO2 of 52. Currently on SIMV 14 FiO2 30% Peep 5 Plan Resolved Transferred to the floor 5-7 - GI bleed 08/26/2013 - Heart failure, systolic and diastolic, chronic ([facility]) 07/21/2013 NICM EF 45%, stage I diastolic dysfunction on most recent Echo 06/2013 On admission, clinically euvolemic Plan: - not currently on ACEi/ARB due to renal dysfunction - on carvedilol - continue spironolactone - hold Lasix 40mg PO BID until acute anemia addressed but will diurese with transfusions as needed - ICD in situ - Heart failure, systolic and diastolic, chronic ([facility]) 07/21/2013 NICM EF 45%, stage I diastolic dysfunction on most recent Echo 06/2013 On admission, clinically euvolemic Plan: - not currently on ACEi/ARB due to renal dysfunction - on carvedilol - continue spironolactone - hold Lasix 40mg PO BID until acute anemia addressed but will diurese with transfusions as needed - ICD in situ - Hives 07/29/2013 - Hyperlipidemia - Hypertension - Hypokalemia 03/20/2013 Monitor and replete prn to keep >4.0 - Hypomagnesemia 03/20/2013 Replete to keep >2.0 - Hypothyroidism 07/05/2013 - Leukocytosis 03/05/2014 No fever -WBC bumped up 12.55 -ordered u/a and culture-> UA suggests UTI urine cx pending, start Cipro. 03/07/2014 culture is pending, WBC decreased to 7.92 - Mechanical complication of other vascular device, implant, and graft ([facility]) 09/01/2010 - Morbid obesity ([facility]) - Morbid obesity ([facility]) Nutrition consult - Muscular deconditioning 09/14/2013 - Non-ischemic cardiomyopathy ([facility]) Cardiomyopathy--[place] - Paroxysmal ventricular tachycardia ([facility]) 04/02/2005 H/o VT/TdP s/p ICD. S/p defibrillator firing on 03/15/13 in the context of hypokalemia. Electrically quiescent on admission 06/2013 Plan: Monitor lytes and replete prn - Peripheral vascular disease ([facility]) - Pressure ulcer, other site(707.09) 07/07/2013 bilateral ischium stage II POA. Xenoderm per nursing. This was present on admission. cont wound care. Also bilateral heel pressure ulcers stage 1 poa - Rectus sheath hematoma 03/29/2013 3.8 cm rectus hematoma noted on CT scan Complaining of some fleeting nausea, no pain Monitor blood counts - Renal failure 05/07/2010 Renal status stable. Off dialysis - S/P TAVR (transcatheter aortic valve replacement) 09/14/2013 - Severe aortic stenosis 08/26/2013 S/p #26 ES TF-TAVR. Exam without murmurs of AI or progressive . Will check echo in the AM but no reason to suggest valvular malfunction. Cont ASA/plavix Echo EF 45%, Bond-Stephanie prosthetic aortic valve (size #26). The peak gradient is 30 mmHg and the mean gradient is 17 mmHg. S/P transcathetaer AVR ( Bond Stephanie # 26) with mild anterior AI (seen best in initial parasternal views. - Staphylococcal infection of skin lower sheen both, - STASIS DERMATITIS 12/26/2007 Chronic changes of both legs, no recent change per patient, Uses emollient to good effect at home, will continue - Thrombocytopenia ([facility]) 07/26/2013 Anemia with thrombocytopenia that is resolving. - Thrombophlebitis arm 03/22/2013 Assessment: DARREL NOBLE PIV site from OSH now warm, red, and firm with purulent drainage -BC from OSH report MSSA -03/25 IANDD to left antecubital fossa Plan: - Continue oxacillin IV 2 gm q4 hrs - Anticipate CoPAT- (ordered placed for david catheter) - ID following - BC x2 redrawn 03/30: ID rec to keep oxacillin going for 6 weeks, will write COPAT. David placed. Will go to [facility] on Monday. - Type II or unspecified type diabetes mellitus without mention of complication, not stated as uncontrolled 01/10/2005 - Check HbA1C - Lantus and prandial lispro with SSI coverage - BS poorly controlled HD #1. Increased prandial insulin dosing and Lantus. 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 This was not quiroz induced this was [employer]. Will discuss with ID - monitor for symptoms- > no symptoms, no fever and WBC WNL. Spoke with Dr. Shay from ID who said no signs/symptoms of UTI so would not treat with ATBs, they recommended remove quiroz-> but need urology to see pt first. Curbsided urology fellow who recommended removing quiroz, consult if difficulty difficulty voiding, then follow up with urology outpt at a later time. 07/24/[address] George due to upcoming valve procedure and + urine culture PAST SURGICAL HISTORY Procedure Laterality Date - APPENDECTOMY - AV FUSE, UPPR ARM, CEPHALIC 06-03-10 RIGHT UPPER ARM - LEFT HEART CATH,PERCUTANEOUS 05/27/1997 Cardiac cath, L heart AND R heart - MAMM DIAG 2009 - REMOVAL SHARONA CVC W/O PUMP 09/01/10 Removal right IJ catheter - REMOVE CATARACT, INSERT LENS,EX - SIGMOIDOSCOPY FLEX DIAG 01/06/99 Sigmoidoscopy - TONSILLECTOMY HX - TOTAL ABDOM HYSTERECTOMY Hysterectomy, BERNARDA, BSO ALLERGIES Augmentin [Amoxicillin-Pot Clavulanate]; Sulfa (Sulfonamide Antibiotics); Vancomycin MEDICATIONS BD INSULIN PEN NEEDLE UF 31 gauge x 09/06 ndle USE WITH INSULIN PEN FOUR TIMES DAILY warfarin (COUMADIN) 4 mg tablet 1 pill Mon, ,Mon; half pill , Mon, Mon, Sun Managed by Dr. See amiodarone (PACERONE) 200 mg tablet Take 1 tablet by mouth three times daily. Per hospital discharge 12/21/16 Insulin Lispro, Human, (HUMALOG KWIKPEN) 100 unit/mL inpn Inject subcutaneously 5 units with breakfast, 8 units with lunch, and 8 units with dinner dinner OXYGEN-AIR DELIVERY SYSTEMS (HIDEAWAY PULSEDOSE OXYGEN SYST MISC) Overnight pulse Ox check 327.24 Nocturnal hypoxemia, and Daytime as needed insulin glargine (LANTUS SOLOSTAR) 100 unit/mL (3 mL) inpn Inject 42 Units subcutaneously once daily. triamcinolone acetonide (KENALOG) 0.1 % cream Apply 1 application to affected area twice daily. Apply sparingly to area for rash/itching. Use until rash and itching resolves nystatin (MYCOSTATIN) cream Apply 1 application to affected area twice daily. Continue for 1 week after rash resolves levothyroxine (SYNTHROID) 75 mcg tablet Take 1 tablet by mouth every morning on an empty stomach For Thyroid COMPOUNDED PRESCRIPTION Paper Tape. 2 . furosemide (LASIX) 40 mg tablet Take 1 tablet by mouth twice daily. spironolactone (ALDACTONE) 25 mg tablet Take 1 tablet by mouth once daily. metOLAzone (ZAROXOLYN) 5 mg tablet Take 0.5 tablets by mouth once daily. Every other day docusate sodium (COLACE) 100 mg capsule Take 1 capsule by mouth twice daily as needed for Constipation. atorvastatin (LIPITOR) 40 mg tablet Take 40 mg by mouth once daily. carvedilol 3.125 mg tablet Take 1 tablet by mouth twice daily with meals. blood sugar diagnostic (ONE TOUCH ULTRA TEST) test strip (TEST 4x DAILY, 250.02) insulin dep uncontrolled Lancets (ONE TOUCH DELICA) lancets Test 4 times daily 250.02, insulin dep ergocalciferol, vitamin D2, 50,000 unit capsule Take 1 capsule by mouth once each week. acetaminophen (TYLENOL EXTRA STRENGTH) 500 mg ORAL tablet Take 500 mg by mouth every 4 hours as needed. ASPIRIN 81 MG ORAL TAB Take one (1) tablet daily . FAMILY HISTORY Problem Relation Age of Onset - Heart Father - Stroke Father - cardiomyopathy [OTHER] Father - Stroke Maternal Grandmother - Heart Maternal Grandmother - Stroke Maternal Grandfather - Heart Maternal Grandfather - Stroke Paternal Grandmother - Heart Paternal Grandmother - Stroke Paternal Grandfather - Heart Paternal Grandfather - Heart Paternal Uncle Social History Substance Use Topics - Smoking status: Never Smoker - Smokeless tobacco: Never Used Comment: Parents non-smokers. - Alcohol use No PHYSICAL EXAM BP 128/82 Pulse 65 Temp 36.9 ?C (98.4 ?F) (Temporal Artery) Resp 16 Wt 93.4 kg (206 lb) SpO2 93% BMI 33.25 kg/m2 General Appearance: well appearing, in no acute distress, alert Skin: Skin color, texture, turgor normal for age; positives: Ecchymosis: scattered over upper extremities, patient is on coumadin Lungs: Lungs clear to auscultation. No wheezing, rhonchi, rales Heart: RRR without murmur, gallop, or rubs. No ectopy Left Lower Extremities: No deformities, clubbing or cyanosis.Pulses: 2+, Edema: Chronic generalized, patients legs are wrapped d/t lymphedema BONE DENSITY due on 2013 URINE ALBUMIN CREATININE RATIO due on 01/03/2015 HBA1C due on 10/24/2016 LDL due on 06/23/2017 MAMMOGRAM due on 08/30/2017 DILATED RETINAL EXAM due on 12/14/2017 DIABETIC FOOT EXAM due on 03/13/2018 TETANUS due on 10/11/2021 COLORECTAL CANCER SCREENING,SEE MODIFIER due on 07/24/2023 ADULT PREVNAR-13 Completed INFLUENZA Completed HEPATITIS C SCREENING Completed PNEUMOVAX AGE 65 AND OVER WITH 5YR LOOKBACK Completed ASSESSMENT/PLAN: 1. Cellulitis of left lower extremity - ICD9: 682.6, ICD10: L03.116 - No acute or concerning exam findings this visit - Resolving. No indication for additional antibiotics at this time - Discussed s/s of cellulitis and when to see medical treatment Discussed previously ordered labs pending, would like to recheck BUN/Creat following hospitalization. Patient indicated that she did not have time to complete today and will return. Prescription instructions reviewed with patient as applicable. Potential red flag symptoms discussed with the patient. Reviewed appropriate action plan to take if red flag symptoms occur. Patient agreeable to treatment plan. Ron Kurtis, BUTT SAWYER.MECHATRONICS ENGINEER PROTHROMBIN TIME W/INR Collected: 07/31/2017 Status: F Source: NAM 10:17 AM [facility] REPOSITORY TYPE CODE TESTS RESULT OUT OF RANGE REFERENCE UNITS LAB L300.4150 11.7-14.9 SECONDS High PROTIME 19.3 LAB L300.4200 Normal INR 1.6 Performed By: #### L300.3900 #### [facility] [address] [place], [address] PROTHROMBIN TIME W/INR Collected: 07/27/2017 Status: F Source: NAM 10:57 AM [facility] REPOSITORY Order Comment: Send Results To: [facility] Reason for Laboratory Test coumadin TYPE CODE TESTS RESULT OUT OF RANGE REFERENCE UNITS LAB L300.4150 11.7-14.9 SECONDS High PROTIME 24.8 LAB L300.4200 Normal INR 2.2 Performed By: #### L300.3900 #### [facility] [address] [place], [address] DISCHARGE SUMMARY Observed: 07/25/2017 Status: F Source: [place] 2:17 PM [facility] REPOSITORY [facility] Medical Records Department [address] [place] [id number] Discharge Summary 07/25/17 1314 MR#: [id number] Acct: [id number] Name: ELIZABETH HO Rep #: [id number] : 1950 67 From: Jose Castillo MD PCP: Williams Parekh MD Status: ADM IN Location: [address] Discharge Date and Diagnosis - Problem List Patient Problems: Active and Suspected Problems (Last Updated 06/21/17 @ 08:34 by Stefany Carrion) Cellulitis (Acute) Date of Admission: 07/22/17 Date of Discharge: 07/25/17 - Primary Discharge Diagnosis Active and Suspected Problems (Last Updated 06/21/17 @ 08:34 by Stefany Carrion) Cellulitis (Acute) - Secondary Discharge Diagnosis Chronic Problems (Last Updated 06/21/17 @ 08:34 by Stefany Carrion) ICD (implantable cardioverter-defibrillator) in place (Chronic) Aortic stenosis (Chronic) Cardiomyopathy in disease classified elsewhere (Chronic) Paroxysmal atrial tachycardia (Chronic) Ventricular flutter (Chronic) Rheumatic tricuspid insufficiency (Chronic) nursing home (current) use of anticoagulants (Chronic) ICD (implantable cardioverter-defibrillator) in place (Chronic) Ventricular tachycardia (paroxysmal) (Chronic) S/P AICD Anemia of chronic disease (Chronic) Cardiomyopathy, noncoronary (Chronic) HTN (hypertension) (Chronic) S/p TAVR (transcatheter aortic valve replacement), bioprosthetic (Chronic) 26 mm Bond Sapein Bioprosthetic Aortic Valve HLD (hyperlipidemia) (Chronic) Biatrial enlargement (Chronic) Severe Mitral valve stenosis and regurgitation (Chronic) Mild to moderate mitral valve stenosis with moderate mitral valve insufficiency Chronic atrial fibrillation (Chronic) Hospital Course and Treatment Operations: None Summary of Care Provided: The patient is a 67 year old female w/ h/o CKD III, CAD, chronic afib, and HTN admitted for cellulitis. Pt has chronic bilateral leg swelling x months. In the last few days, she noted increase swelling and tenderness in her left lower extremity. Was diagnosed with cellulitis and placed on IV Zosyn, she did not have open wounds her legs were wrapped FALLON. as he has chronic venostasis. Improve was then transitioned to oral doxycycline at the time of discharge. She is recommended to follow-up with her primary care doctor and her biofuels product manager in 1-2 weeks. [] 1. Left leg cellulitis; given IV Zosyn. Patient is being discharged on p.o. doxycycline. 2. Chronic Afib; INR is supratherapeutic 4.5, Coumadin is now on hold she is to repeat INR in 2 days and need to be dosed by Dr. See's office. 3 CKD III; renal parameters at the time of discharge. 4. Chronic Systolic heart failure; the patient is clinically compensated she will resume home dose lasix. Exam at the time of discharge; vital signs were stable. He was alert and oriented to time place and person. He did not appear to be any form of distress. S1 and S2 heard no murmur or gallop Lung exam was clear to auscultation with no adventitious sounds. Abdomen was soft nontender with normal bowel sounds. extremity ; venostasis with Fallon wraps. Neurologic exam was grossly intact. Discharge Diet: No Restrictions Discharge Activity: Return to Normal Activity Home Medications: Medications to take at Discharge Aspirin [Aspirin, Baby] 81 mg PO DAILY@0800 03/04/14 Atorvastatin Calcium [Lipitor] 40 mg PO QHS 03/04/14 Insulin Glargine,Hum.rec.anlog [Lantus] 42 unit SQ BREAKFAST 12/17/16 Levothyroxine [Synthroid] 75 mcg PO 0600 12/17/16 Polyethylene Glycol 3350 [Miralax] 17 gm PO DAILY 12/18/16 Acetaminophen [Tylenol] 1,000 mg PO Q8H PRN PRN tab 02/01/17 Metolazone [Zaroxolyn] 2.5 mg PO MOTH@0930 #4 tab 02/01/17 amiodarone 200 mg tablet 200 mg PO DAILY #30 tab 03/31/17 Furosemide 40 mg PO BID 06/20/17 Insulin Aspart [Novolog Flexpen] 5 units SC BREAKFAST 06/20/17 Insulin Lispro [Humalog KwikPen] 8 unit SQ BID 06/20/17 Spironolactone [Aldactone] 25 mg PO DAILY 06/20/17 carvedilol 6.25 mg tablet 6.25 mg PO BID 06/21/17 Docusate Sodium [Colace] 100 mg PO DAILY 07/22/17 Doxycycline 100 mg PO BID #10 cap 07/25/17 Following Prescrptions Were Given to Patient: Doxycycline 100 mg PO BID #10 cap Primary Care Physician: Williams Parekh MD [Primary Care Provider] - Medical Necessity - Tobacco Use Smoking Status: Never smoker Meaningful Use Info Meaningful Use Diagnoses (Choose all that apply): None applicable Code Visit Inpatient E AND M: 65006 Disch Hosp 07/25/17 1417 <Electronically signed by Jose Castillo MD> Date Jose Castillo MD Cosigner Signature (if applicable): Date CC: Jose Castillo MD; Williams Parekh MD Signed DISCHARGE INSTRUCTION Observed: 07/25/2017 Status: F Source: NAM 1:13 PM [facility] REPOSITORY [facility] Medical Records Department [address] [place] [address] Instructions for Home/Discharge Instructions 07/25/17 1310 MR#: [id number] Acct: [id number] Name: ELIZABETH HO Rep #: [id number] : 1950 67 From: Jose Castillo MD PCP: Williams Parekh MD Status: ADM IN - Discharge Diagnoses Current Active Problems: Current Active and Chronic Problems (Last Updated 06/21/17 @ 08:34 by Stefany Carrion) Cellulitis (Acute) You will use the following diet at home:: Regular Discharge Activity: Return to Normal Activity Allergies/Adverse Reactions: Allergies amoxicillin trihydrate [From Augmentin] Allergy (Verified 07/21/17 22:15) Rash potassium clavulanate [From Augmentin] Allergy (Verified 07/21/17 22:15) Rash Sulfa (Sulfonamide Antibiotics) Allergy (Verified 07/21/17 22:15) Hives vancomycin Allergy (Verified 07/21/17 22:15) Other LD SYNDROME Medications to take at Discharge Aspirin [Aspirin, Baby] 81 mg PO DAILY@0800 03/04/14 Atorvastatin Calcium [Lipitor] 40 mg PO QHS 03/04/14 Insulin Glargine,Hum.rec.anlog [Lantus] 42 unit SQ BREAKFAST 12/17/16 Levothyroxine [Synthroid] 75 mcg PO 0600 12/17/16 Polyethylene Glycol 3350 [Miralax] 17 gm PO DAILY 12/18/16 Acetaminophen [Tylenol] 1,000 mg PO Q8H PRN PRN tab 02/01/17 Metolazone [Zaroxolyn] 2.5 mg PO MOTH@0930 #4 tab 02/01/17 amiodarone 200 mg tablet 200 mg PO DAILY #30 tab 03/31/17 Furosemide 40 mg PO BID 06/20/17 Insulin Aspart [Novolog Flexpen] 5 units SC BREAKFAST 06/20/17 Insulin Lispro [Humalog KwikPen] 8 unit SQ BID 06/20/17 Spironolactone [Aldactone] 25 mg PO DAILY 06/20/17 carvedilol 6.25 mg tablet 6.25 mg PO BID 06/21/17 Docusate Sodium [Colace] 100 mg PO DAILY 07/22/17 Primary Care Physician: Williams Parekh MD [Primary Care Provider] - Proposed Discharge Date: 07/25/17 07/25/17 1313 <Electronically signed by Jose Castillo MD> Date Jose Castillo MD CC: Williams Parekh MD BEDSIDE GLUCOSE Collected: 07/25/2017 Status: F Source: NAM 11:47 AM [facility] REPOSITORY TYPE CODE TESTS RESULT OUT OF REFERENCE UNITS RANGE LAB L501.080 70-110 mg/dL High BEDSIDE GLU 193 Result Comment: MANAGEMENT OF PATIENT CARE PER NURSING PROTOCOL Performed By: #### L501.080 #### [facility] Point of Care [address] [place], [place] [address] BEDSIDE GLUCOSE Collected: 07/25/2017 Status: F Source: NAM 8:28 AM [facility] REPOSITORY TYPE CODE TESTS RESULT OUT OF RANGE REFERENCE UNITS LAB L501.080 70-110 mg/dL Normal BEDSIDE GLU 108 Result Comment: MANAGEMENT OF PATIENT CARE PER NURSING PROTOCOL Performed By: #### L501.080 #### [facility] Point of Care [address] [place] [address] PROTHROMBIN TIME W/INR Collected: 07/25/2017 Status: F Source: NAM 5:00 AM [facility] REPOSITORY TYPE CODE TESTS RESULT OUT OF REFERENCE UNITS RANGE LAB L300.4150 11.7-14.9 SECONDS High PROTIME 43.3 LAB L300.4200 High alert INR 4.5 Result Comment: CRITICAL VALUE VERIFIED. CALLED TO NEETA WARREN 07/25/17617 [place]. RESULTS READ BACK BY SAME . Performed By: #### L300.3900 #### [facility] [address] [place], [address] BEDSIDE GLUCOSE Collected: 07/24/2017 Status: F Source: NAM 10:04 PM [facility] REPOSITORY TYPE CODE TESTS RESULT OUT OF REFERENCE UNITS RANGE LAB L501.080 70-110 mg/dL High BEDSIDE GLU 123 Result Comment: MANAGEMENT OF PATIENT CARE PER NURSING PROTOCOL Performed By: #### L501.080 #### [facility] Point of Care [address] [place] [address] VENOUS DUPLEX LOWER Observed: 07/24/2017 Status: F Source: NAM EXTREMITY 5:24 PM [facility] REPOSITORY [facility] Cardiovascular Services [address] [place] [address] Venous Duplex US - Deandre Extrem 07/24/17 0946 MR#: [id number] Acct: [id number] Name: ELIZBAETH HO Rep #: [id number] : 1950 67 From: Ha Herman MD Attending Dr: [facility]LLAR[facility] Status: ADM IN Ordering Dr: Piter Laureano MD Date: 07/22/17 Location: [facility] Sex: F C Admitted: 07/22/17 Reason For Study: LEG SWELLING RIGHT LEFT GSV is normal. GSV is normal. CFV is compressible, spontaneous, phasic, CFV is compressible, spontaneous, phasic, competent and demonstrates normal competent, and demonstrates normal augmentation. augmentation. FV is compressible, spontaneous, phasic, FV is compressible, spontaneous, phasic, competent and demonstrates normal competent and demonstrates normal augmentation. augmentation. POP V is compressible, spontaneous, phasic, POP V is compressible, spontaneous, phasic, competent and demonstrates normal competent and demonstrates normal augmentation. augmentation. T/P Trunk is compressible. T/P Trunk is compressible. PTV is compressible. PTV is compressible. RT PerV is compressible. LT PerV is compressible. Procedure Exam performed portable in patient room. A preliminary report was called and/or faxed to [facility] nurse. Interpretation Summary No evidence for acute deep venous thrombosis bilateral lower extremities with patent and compressible bilateral great saphenous veins. Ordering Physician: Piter Laureano Referring Physician: Michael See Performed By: Michelle Linton RVT 07/24/171722 Date Ha Heramn MD CC: Jose Castillo MD; Williams Parekh MD; Piter Laureano MD Date Dictated: 07/24/17945 Date Transcribed: 07/24/171722 Porcelain Turner: Signed BEDSIDE GLUCOSE Collected: 07/24/2017 Status: F Source: NAM 4:41 PM [facility] REPOSITORY TYPE CODE TESTS RESULT OUT OF REFERENCE UNITS RANGE LAB L501.080 70-110 mg/dL High BEDSIDE GLU 269 Result Comment: MANAGEMENT OF PATIENT CARE PER NURSING PROTOCOL Performed By: #### L501.080 #### [facility] Point of Care [address] [place] [address] BEDSIDE GLUCOSE Collected: 07/24/2017 Status: F Source: NAM 11:31 AM [facility] REPOSITORY TYPE CODE TESTS RESULT OUT OF REFERENCE UNITS RANGE LAB L501.080 70-110 mg/dL High BEDSIDE GLU 200 Result Comment: Insulin Given MANAGEMENT OF PATIENT CARE PER NURSING PROTOCOL Performed By: #### L501.080 #### [facility] Point of Care [address] [place] [address] BEDSIDE GLUCOSE Collected: 07/24/2017 Status: F Source: NAM 7:41 AM [facility] REPOSITORY TYPE CODE TESTS RESULT OUT OF REFERENCE UNITS RANGE LAB L501.080 70-110 mg/dL High BEDSIDE GLU 113 Result Comment: MANAGEMENT OF PATIENT CARE PER NURSING PROTOCOL Performed By: #### L501.080 #### [facility] Point of Care [address] [place] [address] PROTHROMBIN TIME W/INR Collected: 07/24/2017 Status: F Source: NAM 7:12 AM [facility] REPOSITORY TYPE CODE TESTS RESULT OUT OF REFERENCE UNITS RANGE LAB L300.4150 11.7-14.9 SECONDS High PROTIME 43.1 LAB L300.4200 High alert INR 4.5 Result Comment: CRITICAL VALUE VERIFIED. CALLED TO ALYSON FRANCISCO 07/24/17 0800 Reji Cast RESULTS READ BACK BY SAME. Performed By: #### L300.3900 #### [facility] [address] [place], [address] BEDSIDE GLUCOSE Collected: 07/23/2017 Status: F Source: NAM 9:34 PM [facility] REPOSITORY TYPE CODE TESTS RESULT OUT OF REFERENCE UNITS RANGE LAB L501.080 70-110 mg/dL High BEDSIDE GLU 272 Result Comment: MANAGEMENT OF PATIENT CARE PER NURSING PROTOCOL Performed By: #### L501.080 #### [facility] Point of Care [address] [place] [address] BEDSIDE GLUCOSE Collected: 07/23/2017 Status: F Source: NAM 4:06 PM [facility] REPOSITORY TYPE CODE TESTS RESULT OUT OF REFERENCE UNITS RANGE LAB L501.080 70-110 mg/dL High BEDSIDE GLU 200 Result Comment: MANAGEMENT OF PATIENT CARE PER NURSING PROTOCOL Performed By: #### L501.080 #### [facility] Point of Care [address] [place] [address] BEDSIDE GLUCOSE Collected: 07/23/2017 Status: F Source: NAM 11:21 AM [facility] REPOSITORY TYPE CODE TESTS RESULT OUT OF REFERENCE UNITS RANGE LAB L501.080 70-110 mg/dL High BEDSIDE GLU 191 Result Comment: MANAGEMENT OF PATIENT CARE PER NURSING PROTOCOL Performed By: #### L501.080 #### [facility] Point of Care [address] [place] [address] BEDSIDE GLUCOSE Collected: 07/23/2017 Status: F Source: NAM 7:20 AM [facility] REPOSITORY TYPE CODE TESTS RESULT OUT OF RANGE REFERENCE UNITS LAB L501.080 70-110 mg/dL Normal BEDSIDE GLU 92 Result Comment: MANAGEMENT OF PATIENT CARE PER NURSING PROTOCOL Performed By: #### L501.080 #### [facility] Point of Care [address] [place] [address] BEDSIDE GLUCOSE Collected: 07/22/2017 Status: F Source: NAM 10:02 PM [facility] REPOSITORY TYPE CODE TESTS RESULT OUT OF REFERENCE UNITS RANGE LAB L501.080 70-110 mg/dL High BEDSIDE GLU 138 Result Comment: MANAGEMENT OF PATIENT CARE PER NURSING PROTOCOL Performed By: #### L501.080 #### [facility] Point of Care [address] [place] [address] BEDSIDE GLUCOSE Collected: 07/22/2017 Status: F Source: NAM 3:57 PM [facility] REPOSITORY TYPE CODE TESTS RESULT OUT OF REFERENCE UNITS RANGE LAB L501.080 70-110 mg/dL High BEDSIDE GLU 218 Result Comment: MANAGEMENT OF PATIENT CARE PER NURSING PROTOCOL Performed By: #### L501.080 #### [facility] Point of Care [address] [place] [address] BEDSIDE GLUCOSE Collected: 07/22/2017 Status: F Source: NAM 11:01 AM [facility] REPOSITORY TYPE CODE TESTS RESULT OUT OF REFERENCE UNITS RANGE LAB L501.080 70-110 mg/dL High BEDSIDE GLU 240 Result Comment: MANAGEMENT OF PATIENT CARE PER NURSING PROTOCOL Performed By: #### L501.080 #### [facility] Point of Care [address] [place] [address] BEDSIDE GLUCOSE Collected: 07/22/2017 Status: F Source: NAM 6:58 AM [facility] REPOSITORY TYPE CODE TESTS RESULT OUT OF REFERENCE UNITS RANGE LAB L501.080 70-110 mg/dL High BEDSIDE GLU 119 Result Comment: MANAGEMENT OF PATIENT CARE PER NURSING PROTOCOL Performed By: #### L501.080 #### [facility] Point of Care [address] [place] [address] CBC W/DIFF, AUTOMATED Collected: 07/22/2017 Status: F Source: NAM 6:35 AM [facility] REPOSITORY TYPE CODE TESTS RESULT OUT OF RANGE REFERENCE UNITS LAB L100.1000 4.4-11.0 K/mm3 Normal WBC 9.2 LAB L100.1200 4.2-5.4 M/mm3 Low RBC 3.33 LAB L100.1300 12.0-15.0 g/dl Low HGB 10.1 LAB L100.1400 37-47 % Low HCT 32.1 LAB L100.1500 81-99 fL Normal MCV 96.4 LAB L100.1600 27.0-32.0 pg Normal MCH 30.3 LAB L100.1700 32-36 g/gl Low MCHC 31.5 LAB L100.1810 11.6-14.6 % Normal RDW CV 14.0 LAB L100.1820 35.1-43.9 fl High RDW SD 47.1 LAB L100.1900 150-450 K/mm3 Normal PLT 166 LAB L100.2000 6.2-12.0 fl Normal MPV 11.3 LAB L100.2100 47-70 % High NEUT% 77.9 LAB L100.2200 19-41 % Low LY% 8.7 LAB L100.2300 0-10 % Normal MONO% 9.1 LAB L100.2400 0-5 % Normal EO% 1.3 LAB L100.2500 0-1 % Normal BASO% 0.4 LAB L100.2550 0.0-0.9 % High IM GRAN % 2.600 Result Comment: IG% - Immature Granulocytes (promyelocytes, myelocytes and metamyelocytes) > 1% indicates that a LEFT SHIFT is Present. LAB L100.2620 2.0-7.7 X10 3/uL Normal Absolute Neut 7.2 LAB L100.2720 0.83-4.51 X10 3/ul Low Absolute Lymph 0.80 LAB L100.9900 Normal PATH REV Reviewed Result Comment: Neutrophilic left shift. Clinical correlation necessary. Yakov Marquez M.D. 07/25/17 Performed By: #### L100.0100 #### [facility] [address] [place], [address] BASIC METABOLIC Collected: 07/22/2017 Status: F Source: NAM PROFILE ([facility]) [facility] AM [facility] TYPE CODE TESTS RESULT OUT OF RANGE REFERENCE UNITS LAB L501.0100 74-106 mg/dL High GLU 111 Result Comment: Fasting Glucose result from 100 to 125 mg/dL suggests IMPAIRED HOMEOSTASIS per A.D.A. criteria. Please note revised GLUCOSE reference range effective 2017. LAB L501.1000 7-18 mg/dL High BUN 68 LAB L501.1100 0.55-1.02 mg/dL High CREAT,SERUM 1.56 Result Comment: The validity of the calculated GFR AND GFRAA in patients over 70 years has not been determined. Clinical correlation is essential. LAB L501.1110 >60 mL/min Low EST GFR 35 Result Comment: Non- GFR Calc LAB L501.1115 >60 mL/min Low EST GFR - AA 42 Result Comment: GFR Calc LAB L501.1255 ml/min Normal Estimated CRCL 31.86 LAB L501.1300 10-20 RATIO High BUN/CRE 43.6 LAB L501.2200 8.5-10 mg/dL Normal .1 CA 8.8 LAB L501.5300 136-14 mmol/L Normal 5 NA 140 LAB L501.5600 3.5-5. mmol/L Normal 1 K 3.5 LAB L501.5900 98-107 mmol/L Normal CL 100 LAB L501.6100 21.0-3 mmol/L Normal 2.0 CO2 32.0 LAB L501.6200 5-15 Normal GAP 8 Performed By: #### L500.2500 #### [facility] [address] [facility] [place], [address] HISTORY AND PHYSICAL Observed: 07/22/2017 Status: F Source: [place] EXAM 2:44 AM [facility] REPOSITORY [facility] Medical Records Department [address] [place] [address] History and Physical 07/22/17 0000 MR#: [id number] Acct: [id number] Name: ELIZABETH HO Rep #: [id number] : 1950 67 From: Piter Laureano MD PCP: Williams Parekh MD Status: ADM IN Y Location: MS3 [id number] Problem List (1) Cellulitis Status: Acute (2) Anemia of chronic disease Status: Chronic (3) Aortic stenosis Status: Chronic (4) Biatrial enlargement Status: Chronic Comment: Severe (5) Cardiomyopathy in disease classified elsewhere Status: Chronic (6) Cardiomyopathy, noncoronary Status: Chronic (7) Chronic atrial fibrillation Status: Chronic (8) HLD (hyperlipidemia) Status: Chronic Qualifiers: Hyperlipidemia type: mixed hyperlipidemia Qualified Code(s): E78.2 - Mixed hyperlipidemia (9) HTN (hypertension) Status: Chronic Qualifiers: Hypertension type: essential hypertension Qualified Code(s): I10 - Essential (primary) hypertension History of Present Illness Date of Admission: 07/22/17 Chief Complaint: Cellulitis The patient is a 67 year old female w/ h/o CKD III, CAD, chronic afib, and HTN admitted for cellulitis. Pt has chronic bilateral leg swelling x months. In the last few days, she noted increase swelling and tenderness in her left lower extremity. Nothing made it better or worse. She has dull aching pain. Pain was constant and has gotten progressively worse. She thought it was sweeping. Pain was so severe that it interfered with her ADLs. She has no chill or fever. She came to the ED for further workup. Past Medical History Past Medical History (Chronic Problems): Chronic Problems (Last Updated 06/21/17 @ 08:34 by Stefany Carrion) ICD (implantable cardioverter-defibrillator) in place (Chronic) Aortic stenosis (Chronic) Cardiomyopathy in disease classified elsewhere (Chronic) Paroxysmal atrial tachycardia (Chronic) Ventricular flutter (Chronic) Rheumatic tricuspid insufficiency (Chronic) nursing home (current) use of anticoagulants (Chronic) ICD (implantable cardioverter-defibrillator) in place (Chronic) Ventricular tachycardia (paroxysmal) (Chronic) S/P AICD Anemia of chronic disease (Chronic) Cardiomyopathy, noncoronary (Chronic) HTN (hypertension) (Chronic) S/p TAVR (transcatheter aortic valve replacement), bioprosthetic (Chronic) 26 mm Bond Sapein Bioprosthetic Aortic Valve HLD (hyperlipidemia) (Chronic) Biatrial enlargement (Chronic) Severe Mitral valve stenosis and regurgitation (Chronic) Mild to moderate mitral valve stenosis with moderate mitral valve insufficiency Chronic atrial fibrillation (Chronic) Allergies amoxicillin trihydrate [From Augmentin] Allergy (Verified 07/21/17 22:15) Rash potassium clavulanate [From Augmentin] Allergy (Verified 07/21/17 22:15) Rash Sulfa (Sulfonamide Antibiotics) Allergy (Verified 07/21/17 22:15) Hives vancomycin Allergy (Verified 07/21/17 22:15) Other LD SYNDROME Home Medications: Ambulatory Orders Medication Instructions Recorded Aspirin [Aspirin, Baby] 81 mg PO DAILY@0800 03/04/14 Atorvastatin Calcium [Lipitor] 40 mg PO QHS 03/04/14 Surgical History: appendectomy, tonsillectomy, - - S/P TAVR; S/P ICD Smoking Status: Never smoker - *Family History Maternal History Items: - - heart disease, stroke Paternal History Items: - - father with kidney disease, heart disease and stroke Review of Systems Constitutional: Denies: Chills, Fever, Weight Change HEENT: Denies: Head Aches, Sinus Congestion, Sinus Drainage Cardiovascular: Denies: Chest Pain, Palpitations Respiratory: Denies: Cough, Shortness of breath at rest, Sputum production Gastrointestinal: Denies: Abdominal Pain, Nausea, Vomiting Genitourinary: Denies: Dysuria Musculoskeletal: Denies: Joint Pain, Joint Tenderness Skin: Reports: Rash. Denies: Wounds Neurological: Denies: Numbness, Tingling, Focal weakness Psychiatric: Denies: Anxiety, Depression, Homicidal Ideations, Suicidal Ideations Hematologic/ Lymphatic: Denies: Easy Bruising, Easy Bleeding VTE Information - Inpt Only VTE Present on Admission: No VTE Mechan Device Prophylaxis: SCD's VTE Pharm Prophylaxis ordered?: Yes Patient Problems: Active and Suspected Problems (Last Updated 06/21/17 @ 08:34 by Stefany Carrion) Cellulitis (Acute) - Physical Exam General: Alert, Oriented x3, Cooperative HEENT: Atraumatic, PERRLA, EOMI, Normocephalic Neck: Supple, No JVD, Negative Carotid Bruits Lungs: Clear to auscultation, Normal air movement Cardiovascular: No murmurs, Irregular Rate Abdomen: Bowel Sounds Present, Soft, Non Tender Extremities: Capillary Refill Less than 3 Seconds, Edema, Tenderness Skin: No breakdown, Ulcer/ Wound Musculoskeletal: No Tenderness to Palpation of Joints or Extremities Neurological: Cranial nerves II-XII grossly intact Psych/Mental Status: Normal Affect, Appropriate Vital Signs Temp Pulse Resp BP Pulse Ox 96.9 F L 67 20 H 145/66 H 96 07/21/17 22:13 07/21/17 22:13 07/21/17 23:48 07/21/17 22:13 07/21/17 23:48 Oxygen Delivery Method Room Air Weight: 95.254 kg Body Mass Index (BMI) 33.9 Finger Stick Blood Glucose 261 Laboratory Tests Past 24 Hrs Assessment/Plan Active and Suspected Problems (Last Updated 06/21/17 @ 08:34 by Stefany Carrion) Cellulitis (Acute) 67 year old female w/ h/o CKD III, CAD, chronic afib, and HTN admitted for cellulitis. 1) Left leg cellulitis: Will start zosyn. No vancomycin at this time given allergy. Cultures pending. Monitor. 2) Chronic afib: Resume home meds. Resume coumadin. INR 2.9 3) CKD III: Currently at baseline. Resume home dose lasix. H/o chronic systolic heart failure. Monitor. 4) Prophylaxis: SCD / coumadin 07/22/17 0244 <Electronically signed by Piter Laureano MD> Date Piter Laureano MD Cosigner Signature: Date (if applicable) CC: Williams Parekh MD; Piter Laureano MD Signed EMERGENCY DEPARTMENT Observed: 07/21/2017 Status: F Source: [place] SUMMARY 11:28 PM [facility] REPOSITORY [facility] Medical Records Department [address] [place] [address] Emergency Department Summary 07/21/17 2325 MR#: [id number] Acct: [id number] Name: ELIZABETH HO Rep #: [id number] : 1950 67 From: Leticia Parker DO PCP: Williams Parekh MD Status: REG ER - ER Visit Summary Date of Service: 07/21/17 Chief Complaint: [Redness left leg] History of Present Illness: The patient is a 67 F [presents the emergency department with redness to her left leg that she noticed yesterday. Patient has history of cellulitis and sepsis related to it. Patient has chronic lymphedema both lower extremities and has her legs wrapped 24 hours a day. Patient has a visiting nurse that comes in twice a week to wrap her legs. Patient was noted to have erythema to her leg by visiting nurse and advised to seek further evaluation. Patient denies any fever. She denies any trauma to her legs. Patient lives independently and ambulates normally with a walker.] Patient is a diabetic. Physical Examination: [HEENT-PERRLA, EOMI. Cranial nerves II through XII grossly intact. TMs clear. Mucous membranes moist. No adenopathy. Cardiovascular-regular rate and rhythm with 2 out of 6 systolic ejection murmur Lungs-clear to auscultation, chest wall stable without crepitus or subcu emphysema Abdomen-normoactive bowel sounds, soft, nontender, no rebound or rigidity, no peritoneal signs. Extremities-intact 4, normal range of motion, normal pulses, atraumatic]. Patient has +3 edema both lower extremities. Evaluation of the left lower extremity does reveal erythema below the knee. Patient has edema and erythema of the toes of the left foot. Findings consistent with cellulitis. Test Results: CBC with differential obtained showed an elevated white count of 11.2. Patient had 6% bands. Chemistries unremarkable. BUN was 79 and creatinine 1.73. INR was 2.9. [] Emergency Department Course and Treatment: [Patient was started on Levaquin given her allergy to penicillin.] Treatment Plan: [Admit for IV antibiotics] Disposition: [Admit] Impression: [Cellulitis left lower extremity] This note was generated with SnapMD dictation software. It may contain incorrect words, spelling, and punctuation that were not noted in review of the chart prior to signing ED Disposition - Plan for ED Patient: Chief Complaint: Cellulitis Referrals: Williams Parekh MD [Primary Care Provider] - What to do if you have Problems For any increased pain, shortness of breath, bleeding, nausea or vomiting, chest pain, or any unexpected problems, contact your Primary Care Provider. Call [facility] ([phone]) or report to the closest Emergency Room. Call 911 if necessary. 07/21/17 5374 <Electronically signed by Leticia Parker DO> Date Leticia Ungharmony DO Cosigner Signature (If Indicated): Date CC: Williams Parekh MD BASIC METABOLIC Collected: 07/21/2017 Status: F Source: [place] PROFILE (BMP) 10:38 PM [facility] REPOSITORY TYPE CODE TESTS RESULT OUT OF RANGE REFERENCE UNITS LAB L501.0100 74-106 mg/dL Normal GLU 100 Result Comment: Fasting Glucose result from 100 to 125 mg/dL suggests IMPAIRED HOMEOSTASIS per A.D.A. criteria. Please note revised GLUCOSE reference range effective 2017. LAB L501.1000 7-18 mg/dL High BUN 79 LAB L501.1100 0.55-1.02 mg/dL High CREAT,SERUM 1.73 Result Comment: The validity of the calculated GFR AND GFRAA in patients over 70 years has not been determined. Clinical correlation is essential. LAB L501.1110 >60 mL/min Low EST GFR 31 Result Comment: Non- GFR Calc LAB L501.1115 >60 mL/min Low EST GFR - AA 38 Result Comment: GFR Calc LAB L501.1255 ml/min Normal Estimated CRCL 28.73 LAB L501.1300 10-20 RATIO High BUN/CRE 45.7 LAB L501.2200 8.5-10 mg/dL Normal .1 CA 8.8 LAB L501.5300 136-14 mmol/L Normal 5 NA 140 LAB L501.5600 3.5-5. mmol/L Normal 1 K 3.8 LAB L501.5900 98-107 mmol/L Normal CL 100 LAB L501.6100 21.0-3 mmol/L High 2.0 CO2 34.0 LAB L501.6200 5-15 Normal GAP 6 Performed By: #### L500.2500 #### [facility] [address] [place], [address] CBC W/DIFF, AUTOMATED Collected: 07/21/2017 Status: C Source: [place] 10:38 PM [facility] REPOSITORY TYPE CODE TESTS RESULT OUT OF RANGE REFERENCE UNITS LAB L100.1000 4.4-11.0 K/mm3 High WBC 11.2 LAB L100.1200 4.2-5.4 M/mm3 Low RBC 3.61 LAB L100.1300 12.0-15.0 g/dl Low HGB 10.7 LAB L100.1400 37-47 % Low HCT 34.0 LAB L100.1500 81-99 fL Normal MCV 94.2 LAB L100.1600 27.0-32.0 pg Normal MCH 29.6 LAB L100.1700 32-36 g/gl Low MCHC 31.5 LAB L100.1810 11.6-14.6 % Normal RDW CV 14.3 LAB L100.1820 35.1-43.9 fl High RDW SD 49.2 LAB L100.1900 150-450 K/mm3 Normal PLT 183 LAB L100.2000 6.2-12.0 fl Normal MPV 10.2 LAB L100.3100 MANUAL DIFF Normal CELLS COUNTED 100 LAB L100.3200 47-70 % High 72 SEGS LAB L100.3300 0-5 % High 6 BAND LAB L100.3400 0-1 % High 7 META LAB L100.3800 19-41 % Low 8 LYMPH LAB L100.3900 0-10 % 7 Normal MONOCYTE LAB L100.9900 Normal PATH REV Reviewed Result Comment: Neutrophilic leukocytosis with left shift. Normocytic anemia. Clinical correlation necessary. Yakov Marquez M.D. 07/25/17 AMENDED REPORT 07/25/17 1256 PATH REV previously reported as: August Performed By: #### L100.0100 #### [facility] [address] [place], [address] PROTHROMBIN TIME W/INR Collected: 07/21/2017 Status: F Source: [place] 10:38 PM [facility] REPOSITORY TYPE CODE TESTS RESULT OUT OF RANGE REFERENCE UNITS LAB L300.4150 11.7-14.9 SECONDS High PROTIME 30.6 LAB L300.4200 Normal INR 2.9 Performed By: #### L300.3900 #### [facility] [address] [place], [address] PROTHROMBIN TIME W/INR Collected: 2017 Status: F Source: NAM 9:42 AM [facility] REPOSITORY TYPE CODE TESTS RESULT OUT OF RANGE REFERENCE UNITS LAB L300.4150 11.7-14.9 SECONDS High PROTIME 29.2 LAB L300.4200 Normal INR 2.7 Performed By: #### L300.3900 #### [facility] [address] [place], [address] ECHO, COMPLETE W/ Observed: 07/10/2017 Status: F Source: NAM CONTRAST 4:22 PM [facility] REPOSITORY [facility] Cardiovascular Services [address] [place] [address] Echo Complete W/ Contrast 07/10/17 1318 MR#: [id number] Acct: [id number] Name: ELIZABETH HO Bright Rep #: [id number] : 1950 66 From: Saji Hernandez MD Attending Dr: Anibal Jenkins NP Status: REG CLI Ordering Dr: Anibal Jenkins BROKE BEATER OPERATOR-C Date: 07/10/17 Location: CVS Sex: F C Admitted: Reason For Study: TAVR Procedure This was a 2D Doppler, Color Flow transthoracic echocardiogram. Exam performed in department. Left Ventricle Normal LV size. The estimated ejection fraction is 47 %. Mild global left ventricular systolic dysfunction. No regional wall motion abnormalities noted. Right Ventricle Normal RV size. ICD or pacer leads identified within the right ventricle. Normal systolic function. Atria The left atrium is moderately enlarged. The right atrium is mildly enlarged. Mitral Valve There is mild mitral annular calcification. Mild (1+) eccentric mitral valve insufficiency. Tricuspid Valve Normal tricuspid valve. Mild to moderate (1-2+) tricuspid valve insufficiency. Pulmonary artery systolic pressure is 50 mmHg. Moderate pulmonary hypertension. Aortic Valve Bioprosthetic aortic valve. Mild perivalvular insufficiency of the aortic valve. Pulmonic Valve Normal pulmonic valve. Great Vessels Normal aortic root. The pulmonary artery is normal size. Normal inferior vena cava. Pericardium/Pleural No pericardial effusion. Medication 22 gauge I.V. with prn adaptor inserted into left arm. Diluted definity 3ml given slow IV push to enhance endocardial definition. MMode/2D Measurements AND Calculations LVIDd: 6.0 cm IVSd: 1.1 cm LVOT diam: 2.0 cm LVIDs: 4.5 cm LVPWd: 1.4 cm LVOT area: 3.3 cm2 FS: 25.1 % Ao root diam: 2.8 cm LAV(MOD-sp2): 107.8 ml LA dimension: 5.4 cm Doppler Measurements AND Calculations MV V2 max: 243.0 cm/sec Ao V2 max: 218.5 cm/sec LV V1 max: 145.3 cm/sec MV max P.6 mmHg Ao max P.1 mmHg LV V1 max P.4 mmHg MV V2 mean: 160.7 cm/sec Ao V2 mean: 152.7 cm/sec LV V1 mean P.6 mmHg MV mean P.3 mmHg Ao mean P.5 mmHg LV V1 mean: 100.7 cm/sec MV V2 VTI: 66.2 cm Ao V2 VTI: 48.2 cm LV V1 VTI: 32.9 cm MVA(VTI): 1.6 cm2 ALEX(I,D): 2.2 cm2 ALEX(V,D): 2.2 cm2 SV(LVOT): 107.1 ml PA V2 max: 124.1 cm/sec TR max neil: 338.5 cm/sec TR max P.8 mmHg Interpretation Summary Normal LV size. The estimated ejection fraction is 47 %. Mild global left ventricular systolic dysfunction. Bioprosthetic aortic valve. Mild perivalvular insufficiency of the aortic valve. Pulmonary artery systolic pressure is 50 mmHg. Moderate pulmonary hypertension. Compared to prior study, there is no significant change. Ordering Physician: Anibal Jenkins/Michael See Referring Physician: Williams Parekh Performed By: Nicole Gonzales RDCS 07/10/17 1621 Date Saji Hernandez MD CC: LEXI Jenkins; Williams Parekh MD Date Dictated: 07/10/17 1318 Date Transcribed: 07/10/171620 Porcelain Turner: Signed PROTHROMBIN TIME W/INR Collected: 06/26/2017 Status: F Source: NAM 1:21 PM [facility] REPOSITORY TYPE CODE TESTS RESULT OUT OF RANGE REFERENCE UNITS LAB L300.4150 11.7-14.9 SECONDS High PROTIME 30.1 LAB L300.4200 Normal INR 2.9 Performed By: #### L300.3900 #### [facility] [address] [facility] [place], [address] CARDIOLOGY VISIT Observed: 06/22/2017 Status: F Source: NAM REPORT 7:09 AM [facility] REPOSITORY [facility] [address] [place] [address] OFFICE VISIT Date of Service: 06/21/17 MR#: [id number] Acct: [id number] Name: ELIZABETH HO Rep #: [id number] : 1950 Provider: LEXI Jenkins Age/Sex: 66/F [place] [facility] [place] Signed HPI HPI Details: ELIZABETH HO, is a 66 F who presents to the office today for a cardiovascular outpatient follow-up. Patient has a history of paroxysmal atrial fibrillation status post cardioversion in November 2016, non-coronary artery disease related cardiomyopathy, status post TAVR with a #26 mm Bond-stephanie Aortic Valve in June 2013, mitral valve disease, nonobstructive coronary artery disease, hypertension, hyperlipidemia, status post ICD implantation in June 2004, diabetes, chronic renal insufficiency. Patient presented to [facility] emergency department yesterday, June 20, 2017, after feeling sweaty, clammy, and lightheaded at home. Her blood sugar was noted to be 238. EKG showed sinus rhythm with first-degree AV block and a rate of 63 bpm in the ER. She was given IV Zofran and discharged home. Pt. states her episode of dizziness, diaphoresis, and lightheadedness lasted for about one hour yesterday. She states one episode of vomiting. She states feeling tired today. Pt. denies chest, arm, jaw, or neck discomfort. Her exercise tolerance is stable, though limited. Pt. denies symptoms of CHF, palpitations, lightheadedness, dizziness, near syncope, or syncopal episodes. Pt. denies worsenig edema or claudication issues. Pt. denies orthopnea, PND, fever, chills, blood in urine, blood in stool, or myalgia. 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 Accompanied by: None Is patient in pain?: No Allergies amoxicillin trihydrate [From Augmentin] Allergy (Verified 06/20/17 20:53) Rash potassium clavulanate [From Augmentin] Allergy (Verified 06/20/17 20:53) Rash Sulfa (Sulfonamide Antibiotics) Allergy (Verified 06/20/17 20:53) Hives vancomycin Allergy (Verified 06/20/17 20:53) Other Medications Aspirin [Aspirin, Baby] 81 mg PO DAILY@0800 03/04/14 [History Confirmed 06/21/17] Atorvastatin Calcium [Lipitor] 40 mg PO QHS 03/04/14 [History Confirmed 06/21/17] Cholecalciferol (Vitamin D3) [Vitamin D3] 50,000 unit PO MO 03/05/16 [History Confirmed 06/21/17] Insulin Glargine,Hum.rec.anlog [Lantus] 42 unit SQ BREAKFAST 12/17/16 [History Confirmed 06/21/17] Levothyroxine [Synthroid] 75 mcg PO 0600 12/17/16 [History Confirmed 06/21/17] Polyethylene Glycol 3350 [Miralax] 17 gm PO DAILY 12/18/16 [History Confirmed 06/21/17] Acetaminophen [Tylenol] 1,000 mg PO Q8H PRN PRN tab 02/01/17 [Rx Confirmed 06/21/17] Metolazone [Zaroxolyn] 2.5 mg PO MOTH@0930 #4 tab 02/01/17 [Rx Confirmed 06/21/17] amiodarone 200 mg tablet 200 mg PO DAILY #30 tab 03/31/17 [Rx Confirmed 06/21/17] Furosemide [Furosemide] 40 mg PO BID 06/20/17 [History Confirmed 06/21/17] Insulin Aspart [Novolog Flexpen] 5 units SC BREAKFAST 06/20/17 [History Confirmed 06/21/17] Insulin Lispro [Humalog KwikPen] 8 unit SQ BID 06/20/17 [History Confirmed 06/21/17] Spironolactone [Aldactone] 25 mg PO DAILY 06/20/17 [History Confirmed 06/21/17] Warfarin [Coumadin] 4 mg PO .COMPLEX 06/20/17 [History Confirmed 06/21/17] carvedilol 6.25 mg tablet 6.25 mg PO BID 06/21/17 [History Confirmed 06/21/17] ondansetron HCl 4 mg tablet 4 mg PO Q8H PRN tab 06/21/17 [History Confirmed 06/21/17] warfarin 4 mg tablet 4 mg PO QDAY 06/21/17 [History Confirmed 06/21/17] Ejection fraction %: 40 to 44 PFSH Medical History Other secondary pulmonary hypertension (Acute) Aortic stenosis (Chronic) Cardiomyopathy in disease classified elsewhere (Chronic) Paroxysmal atrial tachycardia (Chronic) Ventricular flutter (Chronic) Rheumatic tricuspid insufficiency (Chronic) 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 (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) ICD (implantable cardioverter-defibrillator) in place (Chronic) Ventricular tachycardia (paroxysmal) (Chronic) Anemia of chronic disease (Chronic) Cardiomyopathy, noncoronary (Chronic) HTN (hypertension) (Chronic) HLD (hyperlipidemia) (Chronic) Biatrial enlargement (Chronic) Mitral valve stenosis and regurgitation (Chronic) Shortness of breath (Acute) Acute systolic (congestive) heart failure (Acute) Chronic atrial fibrillation (Chronic) CKD (chronic kidney disease) (Acute) Cellulitis of leg, left (Acute) Family history of CVA (Acute) History of rheumatic fever (Acute) Lymphedema of both lower extremities (Acute) PAOD (peripheral arterial occlusive disease) (Acute) Type 2 diabetes mellitus (Acute) Chronic venous insufficiency (Chronic) Rheumatoid arthritis (Chronic) CAD (coronary artery disease) (Inactive) CHF (congestive heart failure) (Inactive) Cellulitis of leg, left (Inactive) Chronic kidney disease (Inactive) Chronic venous insufficiency (Inactive) 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) Encounter for cardioversion procedure (Inactive) Exogenous obesity (Inactive) Family history of CVA (Inactive) Leg pain, bilateral (Inactive) Lymphedema (Inactive) Lymphedema of both lower extremities (Inactive) Morbid obesity (Inactive) PAOD (peripheral arterial occlusive disease) (Inactive) Pulmonary artery hypertension (Inactive) Rheumatoid arthritis (Inactive) Urinary tract infection (Inactive) Surgical History S/p TAVR (transcatheter aortic valve replacement), bioprosthetic (Chronic) History of tonsillectomy and adenoidectomy (Resolved) History of total hysterectomy (Resolved) Hx of appendectomy (Resolved) Family History Father CVA (cerebral vascular accident) Valvular heart disease Presence of permanent cardiac pacemaker Mother CVA (cerebral vascular accident) Other Family history of CVA Social History Smoking Status: Never smoker alcohol intake: never substance use type: does not use caffeine: Yes Type: coffee what type of physical activity do you participate in: none seatbelt use: always do you feel safe at home: Yes ROS Const Const: Positive for fatigue; negative for weakness, body ache, fever(s) or chills ENT ENT: Positive for dizziness Cardio Chest Pain: No Palpitations: Yes Edema: Bilateral (unchanged) Muscle aches with walking: None Resp Respiratory: Negative for SOB with activity, SOB at rest, SOB orthopnea\SOB lying down or paroxysmal nocturnal dyspnea GI GI: Negative nausea, black,tarry stools, bright, red blood in stools or vomiting blood/hematemesis : Negative for hematuria or frequent nighttime urination/ nocturia Musc Musc: Negative for muscle aches/ myalgia Neuro Neuro: Positive for dizziness and lightheadedness; negative for weakness, near syncope, syncope or orthostatic symptoms Endo Endo: Positive for fatigue Cardiology Exam Const Appearance: cooperative, healthy appearing, comfortable and no acute distress Orientation: alert, awake and oriented x3 Head Head: normal to inspection Mouth: oral mucosae normal Neck Neck: no JVD and normal visual inspection Carotids: normal carotid upstroke Chest Chest inspection: normal inspection of the chest and normal respiratory effort Auscultation: Bilateral: Clear to Auscultation Cardio Rate: regular rate Rhythm: regular rhythm Heart sounds: S2 normal and murmur (Right sternal border systolic); negative rub or gallop Murmur: Grade 2/6 GI GI: normal to inspection Neuro General: alert, awake, oriented x3 and CN's II-XI intact bilaterally Skin Skin: no rashes or lesions noted Extremities Pulses: Normal: Right Posterior Tibial Pulse, Left Posterior Tibial Pulse, Right Radial Pulse, Left Radial Pulse Lower Extremity Edema: None: Bilateral Psych Psychological: normal affect Supplemental Info Pacemaker check from March 2017 showed no VT/VF episodes and atrial burden of 0%. Battery longevity is approximately 10 years. ISAIAS from December 2016 showed an ejection fraction of 40%, mild global right ventricular systolic dysfunction, severely enlarged left atrium, no spontaneous contrast in left atrium, no thrombus detected in left atrial appendage, mildly enlarged right atrium, moderate mitral annular calcification, extension of the mitral annular calcification to the mitral valve leaflets with partial leaflet restriction, mild diffuse mitral valve thickening, moderately severe mitral valve insufficiency, moderate tricuspid valve insufficiency, stable appearing bioprosthetic aortic valve apparatus, trivial perivalvular insufficiency of the aortic valve, a bubble contrast study negative for right to left interatrial shunt, normal-appearing descending thoracic aorta, and ICD or pacer leads identified in both right atrium and right ventricle. Heart catheterization from February 2014 showed a left main that was normal, LAD with mild irregularities, LCx with 30-40% stenosis, and RCA that was a small nondominant vessel with minimal luminal irregularities Assessment AND Plan 1. Paroxysmal atrial tachycardia I47.1 Plan - NORMA Louis Patient's pacemaker/ICD was interrogated today. It did not show any dysrhythmias over the last 24 hours. Patient will continue current medications which include antiarrhythmic, beta-kodi, and Coumadin therapy. We will continue to monitor this. 2. ICD (implantable cardioverter-defibrillator) in place Z95.810 NORMA Sotelo Patient's pacemaker/ICD appears to be functioning appropriately. We will continue to monitor this with routine/scheduled follow-ups. 3. S/p TAVR (transcatheter aortic valve replacement), bioprosthetic Z95.3 26 mm Bond Sapein Bioprosthetic Aortic Valve NORMA Sotelo Patient's most recent ISAIAS from December 2016 showed an ejection fraction of 40%, stable appearing bioprosthetic aortic valve apparatus, and trivial perivalvular insufficiency of the aortic valve. Given her symptoms of unknown etiology a repeat echocardiogram will be done to evaluate valvular status to ensure things have remained stable and she states she is due to have repeated for [facility]. We will wait for the results of echocardiogram for further recommendation. The results can also be faxed to appropriate office once needed. Orders Orders: 4. Essential hypertension I10 NORMA Sotelo Patient's blood pressure is well-controlled today in the office. We will continue to monitor this. We will not make any medication regimen changes. 5. Nonischemic cardiomyopathy I42.8 NORMA Sotelo Heart catheterization from February 2014 showed a left main that was normal, LAD with mild irregularities, LCx with 30-40% stenosis, and RCA that was a small nondominant vessel with minimal luminal irregularities. Patient's ISAIAS from December 2016 showed an ejection fraction of 40%. Patient denies any shortness of breath or worsening lower extremity pedal edema. She will continue current medications which include beta-kodi and diuretics. She is not on an FALLON inhibitor or ARB due to history of chronic kidney disease. 6. Mixed hyperlipidemia E78.2 NORMA Sotelo Laboratory Tests Triglycerides 65 Cholesterol 82 LDL Cholesterol 33 HDL Cholesterol 36 L Patient will continue with current cholesterol lowering medication. 7. Mitral valve stenosis and regurgitation I05.2 Mild to moderate mitral valve stenosis with moderate mitral valve insufficiency NORMA Sotelo Patient's ISAIAS from December 2016 showed moderate mitral annular calcification, mild diffuse mitral valve thickening, moderately severe mitral valve insufficiency, and moderate tricuspid valve insufficiency. This will be further reevaluated with an echocardiogram. We will wait for the results of this test for further recommendation. Plan Detail Other Orders Orders: Additional Comments - NORMA Louis Discussed the above patient with Dr. Hernandez and Dr. See's absence, he agrees with the plan of care. Thank you for allowing us to participate in the patients plan of care, if you have any questions please do not hesitate to call. This note was generated using a voice recognition system and there may be incorrect words, spelling or punctuation that were not noted when reviewing the office note prior to saving. Coding Level of Care Code Off vis,est,level 3 Diagnoses Paroxysmal atrial tachycardia I47.1 ICD (implantable cardioverter-defibrillator) in place Z95.810 S/p TAVR (transcatheter aortic valve replacement), bioprosthetic Z95.3 Essential hypertension I10 Hypertension type: essential hypertension Nonischemic cardiomyopathy I42.8 Mixed hyperlipidemia E78.2 Hyperlipidemia type: mixed hyperlipidemia Mitral valve stenosis and regurgitation I05.2 Coding Level of Care Code Off vis,est,level 3 Diagnoses Paroxysmal atrial tachycardia I47.1 ICD (implantable cardioverter-defibrillator) in place Z95.810 S/p TAVR (transcatheter aortic valve replacement), bioprosthetic Z95.3 Essential hypertension I10 Hypertension type: essential hypertension Nonischemic cardiomyopathy I42.8 Mixed hyperlipidemia E78.2 Hyperlipidemia type: mixed hyperlipidemia Mitral valve stenosis and regurgitation I05.2 06/21/17 1530 <Electronically signed by Anibal GREEN> Date Anibal GREEN 06/22/17 0709<Electronically signed by Saji Hernandez MD> Cosigner Signature: Date (if applicable) Saji Hernandez MD CC: Williams Parekh MD 12 LEAD ELECTROCARDIOGRAM Observed: 06/21/2017 Status: F Source: NAM 2:31 PM [facility] REPOSITORY [facility] Cardiovascular Services [address] [place] [address] 12 Lead EKG 06/20/172118 MR#: [id number] Acct: [id number] Name: ELIZABETH HO R Rep #: [id number] : 1950 66 From: Saji Hernandez MD Attending Dr: Status: DEP ER Ordering Dr: Brian Frey MD Date: 06/20/17 Location: ED Sex: F C Admitted: Test Reason : GEN ILL Blood Pressure : / mmHG Vent. Rate : 063 BPM Atrial Rate : 063 BPM P-R Int : 232 ms QRS Dur : 108 ms QT Int : 496 ms P-R-T Axes : 076 -21 075 degrees QTc Int : 507 ms Suspect unspecified pacemaker failure Sinus rhythm with 1st degree A-V block Incomplete left bundle branch block Prolonged QT Abnormal ECG Confirmed by SAJI HERNANDEZ MD ([id number]), supervising editor trailer CAT CONKLIN ([id number]) on 06/21/2017 2:30:43 PM Referred By: Michael See Confirmed By:SAJI HERNANDEZ MD 06/21/17 1430 Date Saji Hernandez MD CC: Williams Parekh MD; Brian Frey MD Signed EMERGENCY DEPARTMENT Observed: 06/21/2017 Status: F Source: NAM SUMMARY 12:10 AM [facility] REPOSITORY [facility] Medical Records Department [address] [place] [address] Emergency Department Summary 06/20/172253 MR#: [id number] Acct: [id number] Name: HOELIZABETH R Rep #: [id number] : 1950 66 From: Brian Frey MD PCP: Williams Parekh MD Status: DEP ER - ER Visit Summary Date of Service: 06/20/17 Chief Complaint: Do not feel right History of Present Illness: The patient is a [address] Esa Parekh. She reports that she was sitting watching TV at 745 this evening when she felt sweaty, clammy, and lightheaded. She took her blood sugar and it was 238. She denies any other symptoms. No chest pain, palpitations, fever, cough, shortness of breath, or other complaints. Physical Examination: Vitals: Stable. Afebrile. General: Well-nourished and well-developed. Head: Normocephalic atraumatic. Neck: Supple, no lymphadenopathy. No JVD. Nontender. Cardiovascular: Regular rate and rhythm. 2 out of 6 systolic murmur. Respiratory: No respiratory distress. Clear to auscultation bilaterally. Abdominal: Soft, nontender, nondistended, normal bowel sounds. No guarding, rebound, or peritoneal signs. Back: Nontender. Extremities: Nontender, no edema. Skin: Normal color, no rash. Neurologic: Alert and oriented 3. Cranial nerves II through XII are intact. Normal strength and sensation. Psych: Normal affect. Test Results: EKG is sinus at 63 with a first-degree AV block and a QTC of 507. This is unchanged from April 2016. At that time her QTC was 530 and her NH was 204. CBC is marked for an H AND H 11.0 34.2, 7 neutrophils of 82, leukocytes of 6. Chem-7 is more for chloride of 97, CO2 of 36, glucose of 220, BUN 66, creatinine 1.75. Creatinine ranged between 1.23 and 2.11 and 2017. INR is 4.0 yesterday. This was not repeated. Urinalysis is negative. Emergency Department Course and Treatment: Patient had negative orthostatic vital signs in the emergency department she was treated Zofran IV and is resting comfortably. Treatment Plan: Has an appointment to see the nurse practitioner for Dr. See tomorrow. She is instructed to keep this appointment. Return to the emergency part for any worsening symptoms. Disposition: To home in improved and stable condition. Impression: 1. Nausea. 2. Anxiety. This note was generated with [employer] software. It may contain incorrect words, spelling, and punctuation that were not noted in review of the chart prior to signing ED Disposition - Plan for ED Patient: Disposition: Home or Assisted Living Chief Complaint: General Illness Instructions: ED Nausea Vomiting Prescriptions: Ondansetron [Zofran Odt] 4 mg PO Q8H PRN PRN #10 tablet PRN Reason: Nausea Referrals: Williams Parekh MD [Primary Care Provider] - 1-2 Days if not improving What to do if you have Problems For any increased pain, shortness of breath, bleeding, nausea or vomiting, chest pain, or any unexpected problems, contact your Primary Care Provider. Call [facility] ([phone]) or report to the closest Emergency Room. Call 911 if necessary. 06/21/17 0010 <Electronically signed by Brian Frey MD> Date Brian Frey MD Cosigner Signature (If Indicated): Date CC: Williams Parekh MD URINALYSIS, COMPLETE Collected: 06/20/2017 Status: F Source: NAM 10:05 PM [facility] REPOSITORY Order Comment: How was Urine Obtained? PRESS CATCHER TO SPECIFY TYPE CODE TESTS RESULT OUT OF RANGE REFERENCE UNITS LAB L400.3000 Yellow COLOR Normal Yellow LAB L400.3050 Clear Normal CLARITY Sl. Cloudy LAB L400.3200 Normal mg/dl Normal GLUCOSE, UR Normal LAB L400.3300 Negative mg/dL Normal BILIRUBIN URINE Negative LAB L400.3400 Negative mg/dl Normal KETONE UR Negative LAB L400.3465 1.002-1.030 Normal SP.GR. DIPSTX 1.010 LAB L400.3550 5.0 - 8.0 pH UR Normal 6.5 LAB L400.3600 Negative mg/dl PROT Normal DIPSTX Negative LAB L400.3700 Normal mg/dl Normal UROBILI Normal LAB L400.3750 Negative Normal NITRITE UR Negative LAB L400.3780 Negative /ul High 25 OCCULT BLOOD-UR LAB L400.3800 Negative /ul High LEUK 25 ESTERASE LAB L400.4050 0-5 /hpf WBC Normal 0-5 SEEN LAB L400.4100 0-5 /hpf Normal RBC-UA 0-5 SEEN LAB L400.4150 5-10 /hpf SQUAM Normal EPI 0-5 SEEN LAB L400.4300 None Seen /hpf 3+ Normal BACTERIA LAB L400.4350 <or=2+ /hpf 0 Normal MUCUS, URINE SEEN LAB L400.4400 0-5 /lpf Normal HYALINE CAST 0-5 SEEN Performed By: #### L400.0001 #### [facility] [address] [place], [address] CBC W/DIFF, AUTOMATED Collected: 06/20/2017 Status: C Source: [place] 9:35 PM [facility] REPOSITORY TYPE CODE TESTS RESULT OUT OF RANGE REFERENCE UNITS LAB L100.1000 4.4-11.0 K/mm3 Normal WBC 10.8 LAB L100.1200 4.2-5.4 M/mm3 Low RBC 3.69 LAB L100.1300 12.0-15.0 g/dl Low HGB 11.0 LAB L100.1400 37-47 % Low HCT 34.2 LAB L100.1500 81-99 fL Normal MCV 92.7 LAB L100.1600 27.0-32.0 pg Normal MCH 29.8 LAB L100.1700 32-36 g/gl Normal MCHC 32.2 LAB L100.1810 11.6-14.6 % High RDW CV 15.1 LAB L100.1820 35.1-43.9 fl High RDW SD 50.8 LAB L100.1900 150-450 K/mm3 Normal PLT 217 LAB L100.2000 6.2-12.0 fl Normal MPV 11.4 LAB L100.2100 47-70 % High NEUT% 82.1 LAB L100.2200 19-41 % Low LY% 6.0 LAB L100.2300 0-10 % Normal MONO% 8.6 LAB L100.2400 0-5 % Normal EO% 1.0 LAB L100.2500 0-1 % Normal BASO% 0.3 LAB L100.2550 0.0-0.9 % High IM GRAN % 2.000 Result Comment: IG% - Immature Granulocytes (promyelocytes, myelocytes and metamyelocytes) > 1% indicates that a LEFT SHIFT is Present. LAB L100.2620 2.0-7.7 X10 3/uL High Absolute Neut 8.8 LAB L100.2720 0.83-4.51 X10 3/ul Low Absolute Lymph 0.65 LAB L100.9900 Normal PATH REV Reviewed Result Comment: Neutrophilic left shift. Clinical correlation necessary. Yakov Marquez M.D. 06/21/17 Pathologist comment added AMENDED REPORT 06/21/17 1519 PATH REV previously reported as: August Performed By: #### L100.0100 #### [facility] [address] [place], [place], [address] BASIC METABOLIC Collected: 06/20/2017 Status: F Source: [place] PROFILE (BMP) 9:35 PM [facility] REPOSITORY Order Comment: 'TROP' Serial specimen #1, #2, #3, or #4: 1 TYPE CODE TESTS RESULT OUT OF RANGE REFERENCE UNITS LAB L501.0100 74-106 mg/dL High GLU 220 Result Comment: Glucose result greater than or equal to 200 mg/dL suggests DIABETES MELLITUS per A.D.A. criteria. Please note revised GLUCOSE reference range effective 2017. LAB L501.1000 7-18 mg/dL High BUN 66 LAB L501.1100 0.55-1.02 mg/dL High CREAT,SERUM 1.75 Result Comment: The validity of the calculated GFR AND GFRAA in patients over 70 years has not been determined. Clinical correlation is essential. LAB L501.1110 >60 mL/min Low EST GFR 31 Result Comment: Non- GFR Calc LAB L501.1115 >60 mL/min Low EST GFR - AA 37 Result Comment: GFR Calc LAB L501.1255 ml/min Normal Estimated CRCL 28.80 LAB L501.1300 10-20 RATIO High BUN/CRE 37.7 LAB L501.2200 8.5-10 mg/dL Normal .1 CA 8.7 LAB L501.5300 136-14 mmol/L Normal 5 NA 137 LAB L501.5600 3.5-5. mmol/L Normal 1 K 5.0 Result Comment: Moderate Hemolysis, Result may be falsely increased. LAB L501.5900 98-107 mmol/L Low CL 97 LAB L501.6100 21.0-32.0 mmol/L High CO2 36.0 LAB L501.6200 5-15 Low GAP 4 Performed By: #### L500.2500, L501.4010 #### [facility] [address] [place], [address] TROPONIN-I Collected: 06/20/2017 Status: F Source: [place] 9:35 PM [facility] REPOSITORY Order Comment: 'TROP' Serial specimen #1, #2, #3, or #4: 1 TYPE CODE TESTS RESULT OUT OF RANGE REFERENCE UNITS LAB L501.4010 <0.06 ng/mL Normal < 0.02 TROPONIN-I Result Comment: TROPONIN-I EXPECTED VALUES <0.05 NEGATIVE 0.06 - 0.59 AT RISK OF [place] > OR = 0.60 SUGGEST [place] Performed By: #### L500.2500, L501.4010 #### [facility] [address] [place], [address] PROTHROMBIN TIME W/INR Collected: 06/19/2017 Status: F Source: [place] 8:51 AM [facility] REPOSITORY TYPE CODE TESTS RESULT OUT OF REFERENCE UNITS RANGE LAB L300.4150 11.7-14.9 SECONDS High PROTIME 37.6 LAB L300.4200 High alert INR 4.0 Result Comment: CRITICAL VALUE VERIFIED. CALLED TO ZACH FRANCISCO 06/19/17 0949 Reji Taylor. RESULTS READ BACK BY SAME. Performed By: #### L300.3900 #### [facility] [address] [place], [address] PROTHROMBIN TIME W/INR Collected: 06/12/2017 Status: F Source: [place] 12:07 PM [facility] REPOSITORY TYPE CODE TESTS RESULT OUT OF REFERENCE UNITS RANGE LAB L300.4150 11.7-14.9 SECONDS High PROTIME 36.7 LAB L300.4200 High alert INR 3.9 Result Comment: CRITICAL VALUE VERIFIED. CALLED TO MAGGY AT [facility] 06/12/17 1340 Cyndie Lanier. RESULTS READ BACK BY SAME . Performed By: #### L300.3900 #### [facility] [address] [place], [address] PROTHROMBIN TIME W/INR Collected: 05/29/2017 Status: F Source: NAM 1:25 PM [facility] REPOSITORY TYPE CODE TESTS RESULT OUT OF RANGE REFERENCE UNITS LAB L300.4150 11.7-14.9 SECONDS High PROTIME 26.9 LAB L300.4200 Normal INR 2.6 Performed By: #### L300.3900 #### [facility] [address] [place], [address] PROTHROMBIN TIME W/INR Collected: 05/24/2017 Status: F Source: [place] 12:52 PM [facility] REPOSITORY Order Comment: CRITICAL VALUE VERIFIED. CALLED TO NOEMI 05/24/17 1320 Rayne Nicole. RESULTS READ BACK BY ALIA . TYPE CODE TESTS RESULT OUT OF REFERENCE UNITS RANGE LAB L300.4150 11.7-14.9 SECONDS High PROTIME 34.9 LAB L300.4200 High alert INR 3.7 Performed By: #### L300.3900 #### [facility] [address] [place], [address] PROTHROMBIN TIME W/INR Collected: 04/25/2017 Status: F Source: NAM 12:46 PM [facility] REPOSITORY TYPE CODE TESTS RESULT OUT OF RANGE REFERENCE UNITS LAB L300.4150 11.7-14.9 SECONDS High PROTIME 25.5 LAB L300.4200 Normal INR 2.4 Performed By: #### L300.3900 #### [facility] [address] [place], [address] BASIC METABOLIC Collected: 04/25/2017 Status: F Source: NAM PROFILE (BMP) 12:44 PM [facility] REPOSITORY TYPE CODE TESTS RESULT OUT OF RANGE REFERENCE UNITS LAB L501.0100 70-110 mg/dL High GLU 199 Result Comment: Fasting Glucose result greater than or equal to 126 mg/dL suggests DIABETES MELLITUS per A.D.A. criteria. LAB L501.1000 7-18 mg/dL High BUN 75 LAB L501.1100 0.55-1.02 mg/dL High CREAT,SERUM 1.77 Result Comment: The validity of the calculated GFR AND GFRAA in patients over 70 years has not been determined. Clinical correlation is essential. LAB L501.1110 >60 mL/min Low EST GFR 30 Result Comment: Non- GFR Calc LAB L501.1115 >60 mL/min Low EST GFR - AA 37 Result Comment: GFR Calc LAB L501.1300 10-20 RATIO High BUN/CRE 42.4 LAB L501.2200 8.5-10.1 mg/dL CA Normal 8.9 LAB L501.5300 136-145 mmol/L NA Normal 137 LAB L501.5600 3.5-5.1 mmol/L K Normal 3.9 LAB L501.5900 98-107 mmol/L Low CL 97 LAB L501.6100 21.0-32.0 mmol/L High CO2 33.0 LAB L501.6200 5-15 Normal GAP 7 Performed By: #### L500.2500 #### [facility] [address] [place], [address] OFFICE VISIT REPORT Observed: 04/12/2017 Status: F Source: [place] 10:41 AM [facility] REPOSITORY [facility] [address] [place] [address] OFFICE VISIT Date of Service: 04/11/17 MR#: [id number] Acct: [id number] Patient: ELIZABETH HO Rep #: [id number] : 1950 Provider: Lela Bullock Age/Sex: 66/F Location: [facility] [place] Status: Signed Device Device Date Interviewed: 04/11/17 Follow-up Location: in office Interview Reason: routine follow up Php Web Developer: Impossible Software Name: Angeliquen IS-1/DF-1-DR Model: E143 Serial #: [id number] Implant Date: 08/14/14 Year(s): 2 Implant Physician: Dr. Luis Manuel Badillo Patient Characteristics Atrial Indication: Paroxysmal atrial fibrillation, Atrial tachycardia Ventricular Indication: Nonsustained VT Patient Substrate: Nonischemic cardiomyopathy Ejection fraction %: 45 to 49 (12/19/2016) By: Echo Underlying rhythm: Sinus rhythm Pacemaker Dependent: No Device Characteristics Device: Dual Chamber Type: Implantable defibrillator Remote Follow-Up: No Device Physical Exam Yes Incision well healed Leads Lead #1 Php Web Developer Lead 1: Guidant Model Lead 1: [id number] Serial# Lead 1: [id number] Date Implanted Lead 1: 06/25/07 Position Lead 1: RA Lead #2 Php Web Developer Lead 2: Medtronic Model Lead 2: 5076 Serial# Lead 2: [id number] Date Implanted Lead 2: 06/25/07 Position Lead 2: RV Additional Details: RV pace/sense lead Lead #3 Php Web Developer Lead 3: Guidant Model Lead 3: [id number] Serial# Lead 3: [id number] Date Implanted Lead 3: 07/21/07 Position Lead 3: RV Additional Details: RV shock lead, pacing part capped Diagnostics Pacing % RA Pacin % RV Pacin Mode Switching Total # Episodes: 0 % Mode switched: 0 Arrhythmias VF Episodes: 0 Fast VT Episodes: 0 Non-Sust Episodes: 0 Measurements Battery Charge Time (Sec): 10.3 Battery Status: [place] Predicted Remaining Longevity (months or years): 10 years RA Measurements Signal Amplitude (mV): 3.0 Impedance (Ohms): 459 Threshold Voltage: 0.5 @ PW(ms): 0.4 RV Measurements Signal Amplitude (mV): 8.1 Impedance (Ohms): 370 Threshold Voltage: 1.3 @ PW(ms): 0.4 Shock Impedance (Ohms): 54 Tachy Settings VF Therapies VF Therapy Status On On On On On On Energy 29 41 41 41 41 41 Pathway ATP: During charging on FVT Therapies FVT Therapy Status On On On On On On VT Therapies FVT Therapy Status On/Off On/Off On/Off On/Off On/Off On/Off Comments: Derek Settings Derek Settings Pacemaker Mode DDD Lower Rate Limit (bpm) 60 Hysteresis Rate (bpm) Max Track Rate (bpm) 120 Max Sensor Rate (bpm) Max AV Delay (msec) 200 Max PV Delay (msec) Max PVARP (msec) 300 Output/Sensing V/PW (ms) 2.0/0.4 2.4/0.4 Sensitivity RA RV LV AGC 0.25 0.6 Comments: Comments Summary Comments: Dual Chamber ICD Evaluation: Interrogation shows no VT/VF episodes and atrial burden=0% since last check 01/09/17. Left pectoral pocket/incision w/o s/s of infection or erosion. Pt offers no cardiac complaints. Presenting rhythm shows NSR @ 62 bpm. NATURAL GAS TECHNICIAN=<1%. Battery longevity approx 10 yrs. Lead impedances, sensing and pace/sense thresholds remain stable. Increased ventricular amplitude for 2x safety margin. No other parameter changes made. Counters cleared. Next f/u appt scheduled for in 3 mos. 04/12/17 1041 <Electronically signed by Stefany ALFARO> Date Stefany ALFARO 04/11/17 1657<Electronically signed by Lela Bullock > Jarrettignmarino Signature: Date (if applicable) Lela Bullock CC: PROTHROMBIN TIME W/INR Collected: 04/11/2017 Status: F Source: NAM 3:44 PM [facility] REPOSITORY Order Comment: Comments: Standing Order Comments: Standing Order TYPE CODE TESTS RESULT OUT OF RANGE REFERENCE UNITS LAB L300.4150 11.7-14.9 SECONDS High PROTIME 31.3 LAB L300.4200 Normal INR 3.2 Performed By: #### L300.3900 #### [facility] [address] [place], [address] BASIC METABOLIC Collected: 04/11/2017 Status: F Source: NAM PROFILE (BMP) 12:48 PM [facility] REPOSITORY Order Comment: Order Date: 02/21/17 Order Info: 0667-1 - *BMP Comments: Reason: TYPE CODE TESTS RESULT OUT OF RANGE REFERENCE UNITS LAB L501.0100 70-110 mg/dL High GLU 224 Result Comment: Glucose result greater than or equal to 200 mg/dL suggests DIABETES MELLITUS per A.D.A. criteria. LAB L501.1000 7-18 mg/dL High BUN 69 LAB L501.1100 0.55-1.02 mg/dL High CREAT,SERUM 1.68 Result Comment: The validity of the calculated GFR AND GFRAA in patients over 70 years has not been determined. Clinical correlation is essential. LAB L501.1110 >60 mL/min Low EST GFR 32 Result Comment: Non- GFR Calc LAB L501.1115 >60 mL/min Low EST GFR - AA 39 Result Comment: GFR Calc LAB L501.1300 10-20 RATIO High BUN/CRE 41.1 LAB L501.2200 8.5-10.1 mg/dL CA Normal 8.9 LAB L501.5300 136-145 mmol/L NA Normal 136 LAB L501.5600 3.5-5.1 mmol/L K Normal 3.7 LAB L501.5900 98-107 mmol/L Low CL 94 LAB L501.6100 21.0-32.0 mmol/L High CO2 35.0 LAB L501.6200 5-15 Normal GAP 7 Performed By: #### L500.2500 #### [facility] [address] [place], [address] ALLERGIES ALLERGIES DATE TYPE / NAME / CODE REACTION SEVERITY SOURCE CODE 11/20/2017 Drug amoxicillin Rash Unknown [place] Allergy/41 trihydrate/S27279 [facility] 3657322( 2707(RXNORM) [facility]) Repository 11/20/2017 Drug potassium Rash Unknown [place] Allergy/41 clavulanate/F0000 [facility] 9684783( 45680(RXNORM) [facility]) Repository 11/20/2017 Drug Sulfa Hives Unknown [place] Allergy/41 (Sulfonamide [facility] 8303220( Antibiotics)/F001 [facility]) 059168(RXNORM) Repository 11/20/2017 Drug vancomycin/M03143 Other Unknown [place] Allergy/41 4866(RXNORM) Community 4860723([facility]) Repository 08/26/2013 DRUG VANCOMYCIN ANAPHYLAXIS [facility] INGREDI/41 [place] 9659357([facility] CT) 2013 DRUG/95637 AMOXICILLIN-POT RASH [facility] 1003(SNOME CLAVULANATE [place] D CT) Repository 01/10/2005 Drug SULFA HIVES High [facility] Class/4195 (SULFONAMIDE [place] 86378(SNOM ANTIBIOTICS) Repository ED CT) ENCOUNTERS ENCOUNTERS ADMIT/DISCHARGE ACCOUNT ADMITTING ENCOUNTER LOCATION SOURCE NUMBER CLASS 04/02/2018 [id number] Ambulatory B[facility]Building[facility]B [place] [facility] 03/27/2018 [id number] Ambulatory [facility] HospitalBuild Hospital ing:OLS.AVED Repository 03/24/2018 [id number] Ambulatory [facility] HospitalBuild Hospital ing:OLS.AVED Repository 03/23/2018/03/23/20 [id number] Emergency Nam[address] HospitalBuild Hospital ing:ED Repository 03/22/2018 [id number] Ambulatory [facility] HospitalBuild Hospital ing:OLS.AVED Repository 03/20/2018 [id number] [facility] ing:OLS.AVED Repository 03/19/2018 [id number] Ambulatory [facility] HospitalBuild Hospital ing:OLS.AVED Repository 03/16/2018 [id number] [facility] ing:OLS.AVED Repository 03/14/2018 [id number] [facility] ing:OLS.AVED Repository 03/12/2018 [id number] [facility] ing:OLS.AVED Repository 03/06/2018 [id number] Ambulatory [facility] HospitalBuild Hospital ing:OLS.AVED Repository 03/02/2018 [id number] Ambulatory [facility] HospitalBuild Hospital ing:OLS.AVEC Repository 02/28/2018 [id number] [facility] ing:OLS.AVED Repository 02/21/2018 [id number] Ambulatory [facility] HospitalBuild Hospital ing:OLS.AVED Repository 02/20/2018 [id number] Ambulatory [facility] HospitalBuild Hospital ing:OLS.AVED Repository 02/14/2018 [id number] Ambulatory [facility] HospitalBuild Hospital ing:OLS.AVED Repository 02/09/2018 [id number] [facility] ing:OLS.AVED Repository 02/08/2018 [id number] Ambulatory [facility] HospitalBuild Hospital ing:OLS.AVED Repository 02/07/2018 [id number] Ambulatory [facility] HospitalBuild Hospital ing:OLS.AVED Repository 01/31/2018 [id number] Ambulatory [facility] HospitalBuild Hospital ing:OLS.AVED Repository 01/23/2018 [id number] Ambulatory [facility] HospitalBuild Hospital ing:OLS.AVED Repository 01/19/2018 [id number] Ambulatory [facility] HospitalBuild Hospital ing:OLS.AVED Repository 01/17/2018 [id number] Ambulatory [facility] HospitalBuild Hospital ing:OLS.AVED Repository 01/15/2018 [id number] Ambulatory [facility] HospitalBuild Hospital ing:OLS.AVED Repository 01/10/2018 [id number] Ambulatory [facility] HospitalBuild Hospital ing:OLS.AVED Repository 01/08/2018 [id number] Ambulatory [facility] HospitalBuild Hospital ing:OLS.AVED Repository 01/04/2018 [id number] Ambulatory [facility] HospitalBuild Hospital ing:OLS.AVED Repository 01/02/2018 [id number] [facility]LAB Repository 01/01/2018 [id number] White, Loren Ambulatory BMSBuilding:B [place] MS.[facility] Repository 01/01/2018/01/04/20 [id number] White, Loren Ambulatory [address] Hospital ing:OB6Buit: Repository IN403Nzl: 1 01/01/2018 [id number] White, Loren Ambulatory BMSBuilding:B Nam MS.[facility] Repository 01/01/2018 [id number] White, Loren Ambulatory BMSBuilding:B [place] MS.[facility] Repository 12/29/2017/01/02/20 [id number] Ambulatory [address] Repository 12/28/2017/12/29/19 [id number] Emergency [address] Hospital ing:ED Repository 12/26/2017/12/27/19 [id number] Ambulatory BMSBuilding:B [place] 18 MS.[facility] Repository 12/22/2017/12/23/19 [id number] Ambulatory [address] ing:LAB Repository 11/20/2017/11/21/19 [id number] Ambulatory BMSBuilding:B [place] 18 MS.[facility] Repository 11/20/2017/11/21/19 [id number] Ambulatory [address] ing:LAB Repository 11/14/2017/11/15/19 [id number] Emergency [address] ing:ED Repository 10/16/2017/10/17/19 [id number] Ambulatory BMSBuilding:B [place] 18 MS.[facility] Repository 10/16/2017/10/17/19 [id number] Ambulatory [address] ing:LAB Repository 10/11/2017 [id number] Ambulatory BMSBuilding:B [place] MS.[facility] Repository 10/11/2017/10/12/19 [id number] Ambulatory BMSBuilding:B [place] 18 MS.[facility] Repository 10/03/2017 [id number] Ambulatory [facility] Repository 10/03/2017/10/05/19 [id number] Ambulatory [address] Repository 10/03/2017 [id number] Ambulatory [facility] ing:LAB.FUTUR Repository E 09/25/2017/09/26/19 [id number] Ambulatory BMSBuilding:B [place] 18 MS.[facility] Repository 09/21/2017/09/23/19 [id number] Ambulatory [address] Repository 09/17/2017/09/21/19 [id number] White, Loren Inpatient [address] ing:PCURoom: Repository YHH211Gri: 1 09/17/2017 [id number] White, Loren Ambulatory BMSBuilding:B [place] MS.[facility] Repository 09/17/2017 [id number] White, Loren Ambulatory BMSBuilding:B [place] MS.CF.[facility] Repository 09/17/2017 [id number] White, Loren Ambulatory BMSBuilding:B [place] [facility] Repository 09/17/2017 [id number] White, Ambulatory BMSBuilding:B [place] MS.CF.[facility] Repository 09/17/2017 [id number] White, Ambulatory BMSBuilding:B [place] MS.CF.[facility] Repository 09/17/2017 [id number] White, Ambulatory BMSBuilding:B [place] [facility] Repository 09/17/2017 [id number] White, Ambulatory BMSBuilding:B [place] [facility] Repository 09/17/2017 [id number] White, Ambulatory BMSBuilding:Karly Browning MS.CF.[facility] Repository 09/11/2017/09/12/19 [id number] Ambulatory [address] ing:LAB Repository 09/07/2017 [id number] Ambulatory [facility] Repository 09/07/2017/09/08/19 [id number] Ambulatory [address] Repository 08/21/2017/09/05/19 [id number] Ambulatory [address] Repository 08/21/2017/08/22/19 [id number] Ambulatory [address] ing:LAB Repository 08/17/2017 [id number] Ambulatory [facility] Repository 08/01/2017/08/02/19 [id number] Ambulatory [address] Repository 07/22/2017/07/26/19 [id number] Sridevi, Piter Inpatient [address] ing:UD4Rsfq: Repository LZ330Pie: 1 07/22/2017 [id number] Sridevi, Piter Ambulatory BMSBuilding:B [place] MS.[facility] Repository 07/22/2017 [id number] Sridevi, Piter Ambulatory BMSBuilding:Karly Browning MS.[facility] Repository 07/22/2017 [id number] Sridevi, Piter Ambulatory BMSBuilding:B [place] MS.[facility] Repository 07/22/2017 [id number] Sridevi, Piter Ambulatory BMSBuilding:B [place] [facility] Repository 07/22/2017/07/26/19 [id number] Ambulatory BMSBuilding:B [place] 18 MS.CF.[facility] Repository 07/17/2017/07/18/19 [id number] Ambulatory [address] ing:LAB Repository 07/13/2017 [id number] Ambulatory BMSBuilding:B [place] MS.[facility] Repository 07/10/2017 [id number] Ambulatory [facility] ing:CVS Repository 07/10/2017 [id number] Ambulatory BMSBuilding:W [place] [facility] Repository 07/03/2017/07/04/19 [id number] Ambulatory BMSBuilding:B [place] 18 MS.[facility] Repository 06/21/2017/06/21/19 [id number] Ambulatory BMSBuilding:B [place] 18 MS.[facility] Repository 06/21/2017 [id number] Ambulatory BMSBuilding:B [place] MS.[facility] Repository 06/20/2017/06/20/19 [id number] Emergency [address] ing:ED Repository 05/24/2017/05/24/19 [id number] Ambulatory [address] ing:LAB Repository 04/11/2017/04/23/20 [id number] Ambulatory [address] ing:LAB Repository 04/11/2017/04/11/20 [id number] Ambulatory BMSBuilding:B [place] 17 MS.[facility] Repository PAYERS PAYERS ENCOUNTER GUARANTOR PAYER SUBSCRIBER SOURCE 04/02/2018 ELIZABETH R Primary ELIZABETH R Nam [id number] FOREST Insurance:MORENO ANDRE: [facility] Cesar GUSTAFSON Number: [id number] [facility] [address]Lqd: [id number] Repository Date:6029-76-11RH BOX (VC) [id number] HAILEY KAPLAN [address]YA: 04/02/2018 Secondary NOT GIVENUNK [place] Insurance:SELF PAY [facility] Number: Effective Repository Date:2018-01-10 03/27/2018 ELIZABETH R Primary ELIZABETH R Nam [id number] E. Insurance:AETSHERYL WETZELB: [facility] Number: [id number] Rehabilitation Hospital [id number] Repository [address] OF Date:0651-80-25VG [address] [address]Ffk: [phone]: [phone] () 03/27/2018 Secondary NOT GIVENUNK Nam Insurance:SELF PAY [facility] Number: Effective Repository Date:2018-03-27 03/24/2018 ELIZABETH R Primary NOT GIVENUNK [place] [id number] E. Insurance:SELF PAY [facility] Number: Effective Repository AVEN[address] OF Date:2018-03-24 [facility]ITALJOSÉ [place], [place] [address]Goe: () 03/23/2018 ELIZABETH R Primary ELIZABETH R [place] [id number] E. Insurance:AETSHERYL WETZELB: [facility] Number: [id number] Rehabilitation Hospital [id number] Repository [address] OF Date:5069-22-63FZ [address] [address]Aod: [phone]: [phone] () 03/23/2018 Secondary NOT GIVENUNK [place] Insurance:SELF PAY [facility] Number: Effective Repository Date:2018-03-23 03/22/2018 ELIZABETH R Primary ELIZABETH R [place] [id number] E. Insurance:AETSHERYL WETZELB: [facility] Number: [id number] Rehabilitation Hospital [id number] Repository [address] OF Date:0150-42-13XL [facility] [id number] [place] [address]Wwj: [phone]: [phone] (HP) 03/22/2018 Secondary NOT GIVENUNK Nam Insurance:SELF PAY [facility] Number: Effective Repository Date:2018-03-22 03/20/2018 ELIZABETH R Primary NOT GIVENUNK [place] [id number] E. Insurance:SELF PAY [facility] RDTHE Number: Effective Repository [address] OF Date:2018-03-20 [place], [place] [address]Pgm: (HP) 03/19/2018 ELIZABETH R Primary NOT GIVENUNK [place] [id number] E. Insurance:SELF PAY [facility] RDTHE Number: Effective Repository [address]EN[address] OF Date:2018-03-19 [place], [place] [address]Pvk: (HP) 03/16/2018 ELIZABETH R Primary ELIZABETH R [place] [id number] E. Insurance:AETNA DUNNDOB: [facility] Number: [id number] Rehabilitation Hospital [id number] Repository [address] OF Date:1577-15-31ZQ [address] [address]Ttw: [phone]: [phone] () 03/16/2018 Secondary NOT GIVENUNK Nam Insurance:SELF PAY [facility] Number: Effective Repository Date:2018-03-16 03/14/2018 ELIZABETH R Primary ELIZABETH R Nam [id number] E. Insurance:AETNA DUNNDOB: [facility] Number: [id number] Rehabilitation Hospital [id number] Repository [address] OF Date:9124-02-18WH [address] [address]Elt: [phone]: [phone] (HP) 03/14/2018 Secondary NOT GIVENUNK Nam Insurance:SELF PAY [facility] Number: Effective Repository Date:2018-03-14 03/12/2018 ELIZABETH R Primary ELIZABETH R [place] [id number] E. Insurance:AETSHERYL WETZELB: [facility] Number: [id number] Shore University HospitalT9BREffective Repository [address]EN[address] OF Date:2716-99-75DO [facility] [id number] [place] [address] [place] [address]Gzj: [phone]: [phone] (HP) 03/12/2018 Secondary NOT GIVENUNK Nam Insurance:SELF PAY [facility] Number: Effective Repository Date:2018-03-12 03/06/2018 ELIZABETH R Primary ELIZABETH R [place] [id number] E. Insurance:AETSHERYL WETZELB: [facility] Number: [id number] Shore University HospitalT9BREffective Repository [address] OF Date:2213-86-60HR [address] [address]Oft: [phone]: [phone] (HP) 03/06/2018 Secondary NOT GIVENUNK Nam Insurance:SELF PAY [facility] Number: Effective Repository Date:2018-03-06 03/02/2018 ELIZABETH R Primary ELIZABETH R [place] [id number] E. Insurance:AETSHERYL WETZELB: [facility] Number: [id number] Shore University HospitalT9BREffective Repository [address] OF Date:3009-69-84WU [facility] [id number] [place] [address] [place] [address]Mdh: [phone]: [phone] (HP) 03/02/2018 Secondary NOT GIVENUNK Nam Insurance:SELF PAY [facility] Number: Effective Repository Date:2018-03-02 02/28/2018 ELIZABETH R Primary ELIZABETH R [place] [id number] E. Insurance:AETSHERYL WETZELB: [facility] Number: [id number] Shore University HospitalT9BREffective Repository [address]EN[address] OF Date:0675-54-43FL [facility] ANDRES [id number] [place] [address] [place] [address]Hok: [phone]: [phone] (HP) 02/28/2018 Secondary NOT GIVENUNK Nam Insurance:SELF PAY [facility] Number: Effective Repository Date:2018-02-28 02/21/2018 ELIZABETH R Primary ELIZABETH R [place] [id number] E. Insurance:AETNA [facility]APADOB: [facility] Number: [id number] Shore University HospitalT9BREffective Repository [address] OF Date:8492-16-29KT [facility] [id number] [place] [address] [place] [address]Aob: [phone]: [phone] (HP) 02/21/2018 Secondary NOT GIVENUNK [place] Insurance:SELF PAY [facility] Number: Effective Repository Date:2018-02-21 02/20/2018 ELIZABETH R Primary ELIZABETH R Nam [id number] E. Insurance:AETNA PAPADOB: [facility] Number: [id number] Shore University HospitalT9BREffective Repository [address] OF Date:3247-14-97NM [facility] LEELEEMCLAREN GREATER LANSING HOSPITALJEROMEBANNER BOSWELL MEDICAL [facility] [id number] [place] [address] [place] [address]Iym: [phone]: [phone] (HP) 02/20/2018 Secondary NOT GIVENUNK [place] Insurance:SELF PAY [facility] Number: Effective Repository Date:2018-02-20 02/14/2018 ELIZABETH R Primary ELIZABETH R Nam [id number] E. Insurance:AETNA DAMARIB: [facility] Number: [id number] Shore University HospitalT9BREffective Repository [address] OF Date:7185-93-82GN [facility]ITALJ[facility] LUISF[facility] [id number] [place] [address] [place] [address]Kst: [phone]: [phone] (HP) 02/14/2018 Secondary NOT GIVENUNK Nam Insurance:SELF PAY [facility] Number: Effective Repository Date:2018-02-14 02/09/2018 ELIZABETH R Primary ELIZABETH R [place] [id number] E. Insurance:AETNA PAPADOB: [facility] Number: [id number] Rehabilitation Hospital [id number] Repository AVEN[address] OF Date:2568-38-93AJ [facility] [id number] [place] [address]Hvh: [phone]: [phone] () 02/09/2018 Secondary NOT GIVENUNK [place] Insurance:SELF PAY [facility] Number: Effective Repository Date:2018-02-09 02/08/2018 ELIZABETH R Primary ELIZABETH R Nam [id number] E. Insurance:AETNA PAPADOB: [facility] Number: [id number] Rehabilitation Hospital [id number] Repository AVEN[address] OF Date:1524-31-35DG [address] [address]Cgy: [phone]: [phone] () 02/08/2018 Secondary NOT GIVENUNK [place] Insurance:SELF PAY [facility] Number: Effective Repository Date:2018-02-08 02/07/2018 ELIZABETH R Primary ELIZABETH R [place] [id number] E. Insurance:AETNA PAPADOB: [facility] Number: [id number] Rehabilitation Hospital [id number] Repository AVEN[address] OF Date:2448-98-07VO [address] [address]Hie: [phone]: [phone] (HP) 02/07/2018 Secondary NOT GIVENUNK [place] Insurance:SELF PAY [facility] Number: Effective Repository Date:2018-02-07 01/31/2018 ELIZABETH R Primary ELIZBAETH R [place] [id number] E. Insurance:AETSHERYL WETZELB: [facility] Number: [id number] Rehabilitation Hospital [id number] Repository AVEN[address] OF Date:0724-05-34KT [facility] [id number] [place] [address]Dqk: [address]DF: [phone] (HP) 01/31/2018 Secondary NOT GIVENUNK Nam Insurance:SELF PAY [facility] Number: Effective Repository Date:2018-01-31 01/23/2018 ELIZABETH R Primary ELIZABETH R [place] [id number] E. Insurance:AETSHERYL WETZELB: [facility] Number: [id number] Rehabilitation Hospital [id number] Repository AVEN[address] OF Date:5175-23-41GT [facility] [id number] [place] [address]Qom: [phone]: [phone] (HP) 01/23/2018 Secondary NOT GIVENUNK [place] Insurance:SELF PAY [facility] Number: Effective Repository Date:2018-01-23 01/19/2018 ELIZABETH R Primary ELIZABETH R [place] [id number] E. Insurance:AETSHERYL WETZELB: [facility] Number: [id number] Rehabilitation Hospital [id number] Repository AVEN[address] OF Date:9857-98-72IC [facility] [id number] [place] [address]Fgb: [phone]: [phone] (HP) 01/19/2018 Secondary NOT GIVENUNK Nam Insurance:SELF PAY [facility] Number: Effective Repository Date:2018-01-19 01/17/2018 ELIZABETH R Primary NOT GIVENUNK Nam [id number] [address] Insurance:SELF PAY [facility] [place] [address]Tek: Number: Effective Repository Date:2018-01-17 () 01/15/2018 ELIZABETH R Primary ELIZABETH R [place] [id number] E. Insurance:AETNA DAMARIB: [facility] Number: [id number] Rehabilitation Hospital [id number] Repository AVEN[address] OF Date:1856-09-42LD [facility] [facility] [address] [place] [address]Fin: [address]HH: [phone] () 01/15/2018 Secondary NOT GIVENUNK [place] Insurance:[facility]LF [facility] Number: Effective Repository Date:2018-01-15 01/10/2018 ELIZABETH R Primary ELIZABETH R [place] [id number] E. Insurance:AETNA PAPADOB[place] [facility] [place] Number: [id number] [id number] Repository [address]EN[address] OF Date:0273-23-39XV [facility] [address] [place] [address] 45417Fzv: [address]SE: [phone] () 01/10/2018 Secondary NOT GIVENUNK Nam Insurance:SELF [facility]Y [facility] Number: Effective Repository Date:2018-01-10 01/08/2018 ELIZABETH R Primary ELIZABETH R [place] [id number] FOREST Insurance:AETNA PAPADOB: [facility] Number: [id number] Mexico Behavioral [facility] [address]Asc: [id number] Repository Date:1673-44-07LA [facility] () [address] [place] [address]NS: 01/08/2018 Secondary NOT GIVENUNK [place] Insurance:[facility]LF [facility]Y [facility] Number: Effective Repository Date:2018-01-08 01/04/2018 ELIZABETH R Primary ELIZABETH R [place] [id number] FOREST Insurance:AETNA PAPADOB: Community Rubina GUSTAFSONicdanii Number: [id number] Mexico Behavioral Health Institute at Las Vegas [address]Nuj: [id number] Repository Date:3734-53-60MG BOX () 511827DXHAILEY GARCIA [address]XE: 01/04/2018 Secondary NOT GIVENUNK Nam Insurance:SELF PAY [facility] Number: Effective Repository Date:2018-01-04 01/02/2018 ELIZABETH R Primary ELIZABETH R Nam [id number] FOREST Insurance:AETNA PAPADOB: [facility] Rubina GUSTAFSONicdanii Number: [id number] Mexico Behavioral Health Institute [facility] [address]Zyr: [id number] Repository Date:3639-40-54TK [address] () 8[address]67[place] [address]VQ: 01/02/2018 Secondary NOT GIVENUNK [place] Insurance:SELF PAY [facility] Number: Effective Repository Date:2017-12-26 01/01/2018 ELIZABETH R Primary ELIZABETH R Nam [id number] FOREST Insurance:AETNA DAMARIB: Rubina Stevensonicdanii Number: [id number] Mexico Behavioral Health Institute at [facility] [address]Jrx: [id number] Repository Date:7534-89-57TV BOX () [address] [address]NL: 01/01/2018 Secondary NOT GIVENUNK [place] Insurance:SELF PAY [facility] Number: Effective Repository Date:2018-01-01 01/01/2018 ELIZABETH R Primary ELIZABETH R [place] [id number] FOREST Insurance:AETNA PAPADOB: Rubina Stevensonicdanii Number: [id number] Mexico Behavioral Health Institute at [facility] [address]Vhu: [id number] Repository Date:6034-61-85NA BOX (HP) 697175JBHAILEY GARCIA [address]VU: 01/01/2018 Secondary NOT GIVENUNK Nam Insurance:SELF PAY [facility] Number: Effective Repository Date:2018-01-01 01/01/2018 ELIZABETH R Primary ELIZABETH R [place] [id number] FOREST Insurance:AETNA PAPADOB: [facility] [place]Policy Number: [id number] Mexico Behavioral Health Institute at [facility] [place] [address]Tvw: [id number] Repository Date:9535-96-81SA BOX (HP) 551552HVHAILEY GARCIA [address]TJ: 01/01/2018 Secondary NOT GIVENUNK [place] Insurance:SELF PAY [facility] Number: Effective Repository Date:2018-01-01 01/01/2018 ELIZABETH R Primary ELIZABETH R Nam [id number] FOREST Insurance:AETNA PAPADOB: [facility] [place], [facility]Policy Number: [id number] Mexico Behavioral Health Institute at [facility] [address]Znz: [id number] Repository Date:9196-32-94DC BOX () 819776VBHAILEY GARCIA [address]QR: 01/01/2018 Secondary NOT GIVENUNK [place] Insurance:SELF PAY [facility] Number: Effective Repository Date:2018-01-01 12/28/2017 ELIZABETH R Primary ELIZABETH R Nam [id number] FOREST Insurance:AETNA PAPADOB: [facility] FABIAN, [facility]Policy Number: [id number] [facility] Behavioral [facility] Institute [facility] [address]Wvs: [id number] Repository Date:2027-20-45CS BOX () 207941MHHAILEY GARCIA [address]LS: 12/28/2017 Secondary NOT GIVENUNK Nam Insurance:SELF PAY [facility] Number: Effective Repository Date:2017-12-28 12/26/2017 ELIZABETH R Primary ELIZABETH R [place] [id number] FOREST Insurance:AETNA PAPADOB: Community LINWOOD PERALTA, NELSONPolicy Number: [id number] Mexico Behavioral Health Institute [facility] [address]Dwz: [id number] Repository Date:3110-79-91MB BOX () [address] [address]YH: 12/26/2017 Secondary NOT GIVENUNK [place] Insurance:SELF PAY [facility] Number: Effective Repository Date:2017-12-26 12/22/2017 ELIZABETH R Primary ELIZABETH R Nam [id number] FOREST Insurance:AETNA PAPADOB: Community LINWOOD PERALTA, NELSONPolicy Number: [id number] Mexico Behavioral Health Institute at [facility] [place] 25[address]Rij: [id number] Repository Date:1317-36-73CN BOX () 121973[place] [address]VZ: 12/22/2017 Secondary NOT GIVENUNK Nam Insurance:SELF PAY [facility] Number: Effective Repository Date:2017-11-23 11/20/2017 ELIZABETH R Primary ELIZABETH R [place] [id number] FOREST Insurance:AETNA PAPADOB: Community [place] PERALTA, NELSONPolicy Number: [id number] Mexico Behavioral Health Institute [facility] [address]Xtr: [id number] Repository Date:2705-37-12NH BOX () 160742[place] [address]HG: 11/20/2017 Secondary NOT GIVENUNK Nam Insurance:SELF PAY [facility] Number: Effective Repository Date:2017-11-20 11/20/2017 ELIZABETH R Primary ELIZABETH Bright Nam [id number] FOREST Insurance:AETNA PAPADOB: Community QUILEUTE FABIAN, NELSONPolicy Number: [id number] Mexico Behavioral Health Institute at [facility] [address]Fst: [id number] Repository Date:1458-30-86ST BOX (HP) 396767MSHAILEY GARCIA [address]PX: 11/20/2017 Secondary NOT GIVENUNK Nam Insurance:SELF PAY [facility] Number: Effective Repository Date:2017-10-20 11/14/2017 ELIZABETH R Primary ELIZABETH R [place] [id number] FOREST Insurance:AETNA PAPADOB: Community QUILEUTE FABIAN, [facility]SONDign[facility] Hospitalicy Number: [id number] Mexico Behavioral Health Institute at [facility] [address]85Uei: [id number] Repository Date:3493-31-90EI BOX (HP) 326042HVHAILEY GARCIA [address]QI: 11/14/2017 Secondary NOT GIVENUNK Nam Insurance:SELF PAY [facility] Number: Effective Repository Date:2017-11-14 10/16/2017 ELIZABETH R Primary ELIZABETH R Nam [id number] FOREST Insurance:AETNA DUNNDOB: Community QUILEUTE FAB[place], [facility]ENTERPolicy Number: [id number] Mexico Behavioral Health Institute [facility] [address]9932Rhe: [id number] Repository Date:9707-29-83YF BOX (HP) 029750TSHAILEY GARCIA [address]SB: 10/16/2017 Secondary NOT GIVENUNK [place] Insurance:SELF PAY [facility] Number: Effective Repository Date:2017-10-16 10/16/2017 ELIZABETH R Primary ELIZABETH R Nam [id number] FOREST Insurance:AETNA DUNNDOB: Community QUILEUTE FABIAN, NELSONPolicy Number: [id number] Mexico Behavioral Health Institute [facility] [address]20Vql: [id number] Repository Date:3269-11-67YL BOX (HP) 067579WCHAILEY GARCIA [address]KL: 10/16/2017 Secondary NOT GIVENUNK Nam Insurance:SELF PAY [facility] Number: Effective Repository Date:2017-09-21 10/11/2017 ELIZABETH R Primary ELIZABETH Novoa Nam [id number] FOREST Insurance:AETNA PAPADOB: [facility] Cesar GUSTAFSON Number: [id number] Mexico Behavioral Health Institute at [facility] 94882Bkd: [id number] Repository Date:7555-07-12TA BOX () 942435XY[place] [address]UB: 10/11/2017 Secondary NOT GIVENUNK [place] Insurance:SELF PAY [facility] Number: Effective Repository Date:2017-10-11 10/11/2017 ELIZABETH R Primary ELIZABETH Novoa [place] [id number] FOREST Insurance:AETNA PAPADOB: [facility] Rubina GUSTAFSONicdanii Number: [id number] [facility] Behavioral Health Institute [facility] [address]Cwy: [id number] Repository Date:9172-77-28OW BOX () 885049MPE[place] [address]FP: 10/11/2017 Secondary NOT GIVENUNK Nam Insurance:[facility]Y [facility] Number: Effective Repository Date:2017-10-11 10/03/2017 ELIZABETH R Primary ELIZABETH Novoa Nam [id number] FOREST Insurance:AETNA PAPADOB: [facility] Rubina GUSTAFSONicdanii Number: [id number] [facility]al [facility] 28707Mlz: [id number] Repository Date:7041-37-42KJ BOX () 203793WME[place] [address]UD: 10/03/2017 Secondary NOT GIVENUNK Nam Insurance:[facility]LF [facility]Y [facility] Number: Effective Repository Date:2017-10-03 09/25/2017 ELIZABETH R Primary ELIZABETH Novoa [place] [id number] FOREST Insurance:AETNA PAPADOB: [facility] Rubina GUSTAFSONicdanii Number: [id number] Mexico Behavioral Health Institute at [facility] 24112Wve: [id number] Repository Date:4426-09-44RM BOX (HP) 904146IO [place] [address]KZ: 09/25/2017 Secondary NOT GIVENUNK [place] Insurance:SELF PAY Community [facility] Number: Effective Repository Date:2017-08-23 09/17/2017 ELIZABETH R Primary ELIZABETH Bright [place] [id number] FOREST Insurance:AETNA PAPADOB: Community QUILEUTE NELSON PERALTAPolicy Number: [id number] Mexico Behavioral Health Institute [facility] [address]Myu: [id number] Repository Date:8111-17-03AS BOX (HP) 289651UV [place] [address]KJ: 09/17/2017 Secondary NOT GIVENUNK Nam Insurance:SELF PAY [facility] Number: Effective Repository Date:2017-09-17 09/17/2017 ELIZABETH R Primary ELIZABETH Bright [place] [id number] FOREST Insurance:AETNA PAPADOB: Community QUILEUTE FABIAN, NELSONPolicy Number: [id number] Mexico Behavioral Health Institute at [facility] [place] 63561Hxe: [id number] Repository Date:1232-69-86TI BOX (HP) 040905SP [place] [address]CX: 09/17/2017 Secondary NOT GIVENUNK Nam Insurance:[facility]Y [facility] Number: Effective Repository Date:2017-09-17 09/17/2017 ELIZABETH R Primary ELIZABETH Bright MckoyNam [id number] FOREST Insurance:AETNA PAPADOB: Community QUILEUTE FABIAN, NELSONPolicy Number: [id number] [facility] Behavioral Health Institute [facility] 96744Iyq: [id number] Repository Date:1241-48-58NZ BOX (HP) 077666YTHAILEY GARCIA [address]UN: 09/17/2017 Secondary NOT GIVENUNK [place] Insurance:SELF PAY [facility] Number: Effective Repository Date:2017-09-17 09/17/2017 ELIZABETH R Primary ELIZABETH Novoa Nam [id number] FOREST Insurance:AETNA PAPADOB: [facility] Cesar GUSTAFSON Number: [id number] Mexico Behavioral Health Institute [facility] [address]Dig: [id number] Repository Date:4740-69-10FV BOX () 273200XYE[place] [address]CG: 09/17/2017 Secondary NOT GIVENUNK [place] Insurance:SELF [facility]Y [facility] Number: Effective Repository Date:2017-09-17 09/17/2017 ELIZABETH R Primary ELIZABETH R [place] [id number] FOREST Insurance:AETNA PAPADOB: [facility] Cesar GUSTAFSON Number: [id number] [facility] Behavioral Health Institute [facility] 75933Qzx: [id number] Repository Date:8940-70-35VP BOX () 395921QSE[place] [address]CB: 09/17/2017 Secondary NOT GIVENUNK Nam Insurance:SELF PAY [facility] Number: Effective Repository Date:2017-09-17 09/17/2017 ELIZABETH R Primary ELIZABETH Novoa [place] [id number] FOREST Insurance:AETNA PAPADOB: [facility] Cesar GUSTAFSON Number: [id number] Mexico Behavioral Health Institute at [facility] 25034Bsv: [id number] Repository Date:5441-96-55EV BOX () 113730SSE[place] [address]DI: 09/17/2017 Secondary NOT G[place]ENUNK Nam Insurance:SELF PAY [facility] Number: Effective Repository Date:2017-09-17 09/17/2017 ELIZABETH R Primary ELIZABETH Novoa [place] [id number] FOREST Insurance:AETNA [facility] Number: [id number] Mexico Behavioral Health Institute at [facility] 12896Zsy: [id number] Repository Date:7313-75-09TV BOX (HP) 861643ADHAILEY GARCIA [address]VX: 09/17/2017 Secondary NOT GIVENUNK Nam Insurance:SELF PAY [facility] Number: Effective Repository Date:2017-09-17 09/17/2017 ELIZABETH R Primary ELIZABETH R Nam [id number] FOREST Insurance:AETNA PAPADOB: Community QUILEUTE [place], NELSONPolicy Number: [id number] Mexico Behavioral Health Institute at [facility] [place] [address]Adj: [id number] Repository Date:1168-10-73IE BOX (HP) 089944RMHAILEY GARCIA [address]UZ: 09/17/2017 Secondary NOT GIVENUNK [place] Insurance:SELF PAY [facility] Number: Effective Repository Date:2017-09-17 09/17/2017 ELIZABETH R Primary ELIZABETH R [place] [id number] FOREST Insurance:AETNA PAPADOB: Community QUILEUTE FABIAN, [facility]Policy Number: [id number] Mexico Behavioral Health Institute at [facility] 25645Qoq: [id number] Repository Date:9143-25-05UC BOX (HP) 327596DXHAILEY GARCIA [address]UH: 09/17/2017 Secondary NOT GIVENUNK [place] Insurance:SELF PAY [facility] Number: Effective Repository Date:2017-09-17 09/11/2017 ELIZABETH R Primary ELIZABETH R [place] [id number] FOREST Insurance:AETNA PAPADOB: Community QUILEUTE FABIAN, [facility]Policy Number: [id number] Mexico Behavioral Health Institute [facility] 29385Wyv: [id number] Repository Date:2645-60-76WA BOX (HP) 878983KCHAILEY GARCIA [address]OB: 09/11/2017 Secondary NOT GIVENUNK [place] Insurance:SELF PAY [facility] Number: Effective Repository Date:2017-08-22 08/21/2017 ELIZABETH R Primary ELIZABETH R Nam [id number] FOREST Insurance:AETNA DAMARIB: [facility] Cesar GUSTAFSON Number: [id number] Mexico Behavioral Health Institute at [facility] [address]Cxz: [id number] Repository Date:2012-96-34JQ BOX () 304178IIE[place] [address]TA: 08/21/2017 Secondary NOT GIVENUNK [place] Insurance:SELF PAY [facility] Number: Effective Repository Date:2017-07-24 07/22/2017 ELIZABETH R Primary ELIZABETH R Nam [id number] FOREST Insurance:AETNA DAMARIB: [facility] LINWOOD PERALTA NELSONEveliodanii Number: [id number] Mexico Behavioral Health Institute [facility] 50661Gzs: [id number] Repository Date:5475-68-97QH BOX () 639544MQE[place] [address]HO: 07/22/2017 Secondary NOT GIVENUNK Nam Insurance:SELF PAY [facility] Number: Effective Repository Date:2017-07-21 07/22/2017 ELIZABETH R Primary ELIZABETH R Nam [id number] FOREST Insurance:AETSHERYL WETZELB: [facility] LINWOOD PERALTA NELSONEveliodanii Number: [id number] Mexico Behavioral Health Institute [facility] 20426Pad: [id number] Repository Date:4551-88-82GP BOX () 974290IYE[place] [address]HT: 07/22/2017 Secondary NOT GIVENUNK [place] Insurance:SELF PAY [facility] Number: Effective Repository Date:2017-07-22 07/22/2017 ELIZABETH R Primary ELIZABETH R [place] [id number] FOREST Insurance:AETSHERYL WETZELB: [facility] FABIAN NELSONTunglenin Number: [id number] Mexico Behavioral [facility] [address]306Ofs: [id number] Repository Date:9207-72-07JL BOX (HP) 428522XV [place] [address]VM: 07/22/2017 Secondary NOT GIVENUNK [place] Insurance:SELF PAY [facility] Number: Effective Repository Date:2017-07-22 07/22/2017 ELIZABETH R Primary ELIZABETH R [place] [id number] FOREST Insurance:AETNA DUNNDOB: Community Rubina GUSTAFSONicdanii Number: [id number] [facility] Behavioral [facility] Institute [facility] 85191Eft: [id number] Repository Date:5445-95-45AQ BOX (HP) 797266UZ [place] [address]VR: 07/22/2017 Secondary NOT GIVENUNK [place] Insurance:SELF PAY [facility] Number: Effective Repository Date:2017-07-22 07/22/2017 ELIZABETH R Primary ELIZABETH R [place] [id number] FOREST Insurance:AETNA PAPADOB: [facility] Rubina GUSTAFSONicdanii Number: [id number] Mexico Behavioral Health Institute at [facility] [address]Hid: [id number] Repository Date:3168-82-77ST BOX (HP) 9[address]05GW [place] [address]EH: 07/22/2017 Secondary NOT GIVENUNK Nam Insurance:SELF PAY [facility] Number: Effective Repository Date:2017-07-22 07/22/2017 ELIZABETH R Primary ELIZABETH R Nam [id number] FOREST Insurance:AETNA PAPADOB: [facility] Rubina PERALTAicdanii Number: [id number] Mexico Behavioral Health Institute at [facility] [address]172Uyc: [id number] Repository Date:6973-28-11LK BOX (HP) 183752VK [place] [address]VL: 07/22/2017 Secondary NOT GIVENUNK [place] Insurance:SELF PAY [facility] Number: Effective Repository Date:2017-07-22 2017 ELIZABETH R Primary ELIZABETH R Nam [id number] FOREST Insurance:AETNA DUNNDOB: [facility] FABIAN [facility] CENTERPolicy Number: [id number] Mexico Behavioral Health Institute at [facility] 74046Bjw: [id number] Repository Date:3148-88-62XJ BOX () 471987ZM HAILEY [place] [address]: 2017 Secondary NOT GIVENUNK [place] Insurance:SELF PAY [facility] Number: Effective Repository Date:2017-05-26 07/13/2017 ELIZABETH R Primary ELIZABETH R [place] [id number] FOREST Insurance:MEDICARE DUNNDOB: [facility] JEROME, PART A BPolicy [id number] Mexico Behavioral Health Institute [facility] [address]124Ikm: Number: Repository [id number] () Date:2017-04-11 07/13/2017 Secondary ELIZABETH R Nam Insurance:ANTHEMPolic DUNNDOB: Community y Number: [id number] Hospital [id number] Repository Date:0824-44-77EY [address], [place] [address]OP: 07/13/2017 Tertiary NOT GIVENUNK [place] Insurance:SELF PAY [facility] Number: Effective Repository Date:2017-04-11 07/10/2017 ELIZABETH R Primary ELIZABETH R [place] [id number] FOREST Insurance:AETNA DUNNDOB: [facility] FABIAN, [facility]ENTERPolicy Number: [id number] [place] [address]Rjy: [id number] Repository Date:0777-22-07YV BOX () 720904PF HAILEY KAPLAN [address]MT: 07/10/2017 Secondary NOT GIVENUNK Nam Insurance:SELF PAY [facility] Number: Effective Repository Date:2017-06-21 07/10/2017 ELIZABETH R Primary ELIZABETH Bright [place] [id number] FOREST Insurance:AETNA PPAADOB: [facility] Rubina GUSTAFSONicdanii Number: [id number] Mexico Behavioral Health Institute [facility] [address]247Fcx: [id number] Repository Date:4554-35-06LN BOX () 462489[place] [address]AB: 07/10/2017 Secondary NOT GIVENUNK [place] Insurance:SELF PAY [facility] Number: Effective Repository Date:2017-07-10 07/03/2017 ELIZABETH R Primary ELIZABETH Bright [place] [id number] FOREST Insurance:AETNA PAPADOB: [facility] Rubina GUSTAFSONicdanii Number: [id number] Mexico Behavioral Health Institute at [facility] [place] [address]Ofo: [id number] Repository Date:5390-03-66BR BOX () 996618TV[place] [address]KJ: 07/03/2017 Secondary NOT GIVENUNK Nam Insurance:SELF PAY [facility] Number: Effective Repository Date:2017-07-03 06/21/2017 ELIZABETH R Primary ELIZABETH Novoa [place] [id number] FOREST Insurance:AETNA PAPADOB: [facility] Rubina GUSTAFSONicdanii Number: [id number] Mexico Behavioral Health Institute [facility] 28805Sse: [id number] Repository Date:0129-68-83CH BOX () 098104RME[place] [address]XG: 06/21/2017 Secondary NOT GIVENUNK [place] Insurance:SELF PAY [facility] Number: Effective Repository Date:2017-04-01 06/21/2017 ELIZABETH R Primary ELIZABETH Novoa [place] [id number] FOREST Insurance:AETNA PAPADOB: [facility] Rubina GUSTAFSONicdanii Number: [id number] Mexico Behavioral Health Institute [facility] 21162Qhv: [id number] Repository Date:8994-15-87JU BOX () 645907WS [place] [address]QN: 06/21/2017 Secondary NOT GIVENUNK [place] Insurance:SELF PAY [facility] Number: Effective Repository Date:2017-06-21 06/20/2017 ELIZABETH R Primary ELIZABETH R Nam [id number] FOREST Insurance:AETNA DUNNDOB: [facility] Number: [id number] Mexico Behavioral Health Institute [facility] 71001Ldg: [id number] Repository Date:3152-27-70SR BOX () 208405HTE[place] [address]MX: 06/20/2017 Secondary NOT GIVENUNK [place] Insurance:SELF PAY [facility] Number: Effective Repository Date:2017-06-20 05/24/2017 ELIZABETH R Primary ELIZABETH R Nam [id number] FOREST Insurance:AETNA DUNNDOB: [facility] Number: [id number] Mexico Behavioral Health Institute [facility] [address]Fez: [id number] Repository Date:2803-70-36QX BOX () 572722UVE[place] [address]JJ: 05/24/2017 Secondary NOT GIVENUNK [place] Insurance:SELF PAY [facility] Number: Effective Repository Date:2017-04-24 04/11/2017 ELIZABETH R Primary ELIZABETH R Nam [id number] FOREST Insurance:MEDICARE DUNNDOB: [facility], PART A BPolicy [id number] Mexico Behavioral Health Institute at [facility] [place] [address]506Yip: Number: Repository [id number] () Date:2013-06-22 04/11/2017 Secondary ELIZABETH R Nam Insurance:ANTHEMPolic DUNNDOB: Community y Number: [id number] Hospital [id number] Repository Date:7699-14-34[address]ZDCQQZF, [place] [address]OL: 04/11/2017 Tertiary NOT GIVENUNK Nam Insurance:SELF PAY [facility] Number: Effective Repository Date:2017-03-24 04/11/2017 ELIZABETH R Primary ELIZABETH R [place] [id number] FOREST Insurance:MEDICARE DUNNDOB: Community QUILEUTE [facility], PART A BPolicy [id number] [place] [address]Sjz: Number: Repository [id number] (HP) Date:2017-03-25 04/11/2017 Secondary ELIZABETH R Nam Insurance:ANTHEMPolic DUNNDOB: Community y Number: [id number] Hospital [id number] Repository Date:1790-14-88[address]GUOCWEMJ[place], [place] [address]DK: 04/11/2017 Tertiary NOT GIVENUNK Nam Insurance:SELF PAY [facility] Number: Effective Repository Date:2017-03-25
== END ==
LOC: OLS.AVED 05:00
PROVIDERS: Visit Provider Family Medicine
DX: D64.9 Anemia, unspecified (principal); Z79.01 Long term (current) use of anticoagulants
CPT/HCPCS: 36415; 80048; 85027; 85610

== ENCOUNTER → 2018-03-22 05:00 | Outpatient (REF) | payer MEDICARE, SELFPAY ==
[2018-03-22 07:29] LABS: Hematocrit 27.6 % (37-47); Hemoglobin 7.8 g/dl (12.0-15.0); Mean Corp Hgb Conc 28.3 g/gl (32-36); Mean Corpuscular Hgb 27.9 pg (27.0-32.0); Mean Corpuscular Volume 98.6 fL (81-99); Mean Platelet Vol. 10.2 fl (6.2-12.0); Platelet Count 212 K/mm3 (150-450); RBC Distribution Width CV 15.1 % (11.6-14.6); RBC Distribution Width SD 51.3 fl (35.1-43.9); White Blood Count 7.9 K/mm3 (4.4-11.0)
[2018-03-22 07:32] LABS: Scan Indicated on CBC? Y/N NO
[2018-03-22 07:39] LABS: Anion Gap 7 (5-15); BUN 87 mg/dL (7-18); BUN/Creat Ratio 39.2 RATIO (10-20); Calcium,Total 8.5 mg/dL (8.5-10.1); Chloride 97 mmol/L (98-107); Creatinine, Serum 2.22 mg/dL (0.55-1.02); EST Glomerular Filtration Rate 23 mL/min (>60); Est Glom Filt Rate - Afr Amer 28 mL/min (>60); Glucose 51 mg/dL (74-106); Potassium 3.8 mmol/L (3.5-5.1); Sodium Level 140 mmol/L (136-145)
[2018-03-23 18:44] VITALS: BMI 43.4
--- OUTSIDE RECORDS SUMMARY | 2018-05-17 05:57 | XMS RPT_ITS ---
:1950 Author Organization OHIP Support Name Relationship Address Phone Kirti Ho Unavailable [address] [place] [address] Cortney Womackleen Unavailable Unavailable + [place] [address] R Unavailable Unavailable Unavailable Ho, Kirti Unavailable [address] [place] [address] Cortney Womackleen Unavailable Unavailable + [place] [address] R Unavailable Unavailable Unavailable Ho, Kirti Unavailable [address] [place] [address] Vu Phoebe Unavailable Unavailable + [place] [address] R Unavailable Unavailable Unavailable HO, KIRTI Unavailable [address] [place] [address] VU, PHOEBE Unavailable Unavailable + [place] [address] R Unavailable Unavailable Unavailable Ho, Kirti Unavailable [address] [place] [address] Vu, Phoebe Unavailable Unavailable + [place] [address] R Unavailable Unavailable Unavailable Ho, Kirti Unavailable [address] [place] [address] Vu Phoebe Unavailable Unavailable + [place] [address] R Unavailable Unavailable Unavailable Ho, Kirti Unavailable [address] [place] [address] Vu Phoebe Unavailable Unavailable + [place] [address] R Unavailable Unavailable Unavailable Ho, Kirti Unavailable [address] [place] [address] Vu, Phoebe Unavailable Unavailable + [place] [address] R Unavailable Unavailable Unavailable Ho, Kirti Unavailable [address] [place] [address] Vu, Phoebe Unavailable Unavailable + [place] [address] R Unavailable Unavailable Unavailable Ho, Kirti Unavailable [address] [place] [address] Vu, Phoebe Unavailable Unavailable + [place] [address] R Unavailable Unavailable Unavailable Ho, Kirti Unavailable [address] [place] [address] Vu, Phoebe Unavailable Unavailable + [place] [address] R Unavailable Unavailable Unavailable Ho, Kirti Unavailable [address] + [address] [place] [address] Vu, Phoebe Unavailable Unavailable + [place] [address] R Unavailable Unavailable Unavailable Ho, Kirti Unavailable [address] [place] [address] Vu, Phoebe Unavailable Unavailable + [place] [address] R Unavailable Unavailable Unavailable Ho, Kirti Unavailable [address] + [address] [place] [address] Vu, Phoebe Unavailable Unavailable + [place] [address] R Unavailable Unavailable Unavailable Ho, Kirti Unavailable [address] + [address] [place] [address] Vu, Phoebe Unavailable Unavailable + [place] [address] R Unavailable Unavailable Unavailable Ho, Kirti Unavailable [address] [place] [address] Vu, Phoebe Unavailable Unavailable + [place] [address] R Unavailable Unavailable Unavailable Ho, Kirti Unavailable [address] [place] [address] Vu, Phoebe Unavailable Unavailable + [place] [address] R Unavailable Unavailable Unavailable Ho, Kirti Unavailable [address] + [address] [place] [address] Vu, Phoebe Unavailable Unavailable + [place] [address] R Unavailable Unavailable Unavailable Ho, Kirti Unavailable [address] + [address] [place] [address] Vu, Phoebe Unavailable Unavailable + [place] [address] R Unavailable Unavailable Unavailable Ho, Kirti Unavailable [address] + [address] [place] [address] Vu, Phoebe Unavailable Unavailable + [place] [address] R Unavailable Unavailable Unavailable Ho, Kirti Unavailable [address] + [address] [place] [address] Vu, Phoebe Unavailable Unavailable + [place] [address] R Unavailable Unavailable Unavailable Ho, Kirti Unavailable [address] + [address] [place] [address] Vu, Phoebe Unavailable Unavailable + [place] [address] R Unavailable Unavailable Unavailable Ho, Kirti Unavailable [address] + [address] [place] [address] Vu, Phoebe Unavailable Unavailable + [place] [address] R Unavailable Unavailable Unavailable Ho, Kirti Unavailable [address] + [address] [place] [address] Vu, Phoebe Unavailable Unavailable + [place] [address] R Unavailable Unavailable Unavailable Ho, Kirti Unavailable [address] + [address] [place] [address] Vu, Phoebe Unavailable Unavailable + [place] [address] R Unavailable Unavailable Unavailable Ho, Kirti Unavailable [address] + [address] [place] [address] Vu, Phoebe Unavailable Unavailable + [place] [address] R Unavailable Unavailable Unavailable Ho, Kirti Unavailable [address] + [address] [place] [address] Vu, Phoebe Unavailable Unavailable + [place] [address] R Unavailable Unavailable Unavailable HO, KRITI Unavailable [address] + [address] [place] [address] VU, PHOEBE Unavailable Unavailable + [place] [address] R Unavailable Unavailable Unavailable Ho, Kirti Unavailable [address] + [address] [place] [address] Vu, Phoebe Unavailable Unavailable + [place] [address] R Unavailable Unavailable Unavailable HO, KIRTI Unavailable [address] + [address] [place] [address] VU, PHOEBE Unavailable Unavailable + [place] [address] R Unavailable Unavailable Unavailable Ho, Kirti Unavailable [address] + [address] [place] [address] Vu, Phoebe Unavailable Unavailable + [place] [address] R Unavailable Unavailable Unavailable HO, KIRTI Unavailable [address] + [address] [place] [address] VU, PHOEBE Unavailable Unavailable + [place] [address] R Unavailable Unavailable Unavailable HO, KIRTI Unavailable [address] + [address] [place] [address] VU, PHOEBE Unavailable Unavailable + [place] [address] R Unavailable Unavailable Unavailable HO, KIRTI Unavailable [address] + [address] [place] [address] VU, PHOEBE Unavailable Unavailable + [place] [address] R Unavailable Unavailable Unavailable HO, KIRTI Unavailable [address] + [address] [place] [address] VU, PHOEBE Unavailable Unavailable + [place] [address] R Unavailable Unavailable Unavailable HO, KIRTI Unavailable [address] + [address] [place] [address] VU, PHOEBE Unavailable Unavailable + [place] [address] R Unavailable Unavailable Unavailable HO, KIRTI Unavailable [address] + [address] [place] [address] VU, PHOEBE Unavailable Unavailable + [place] [address] R Unavailable Unavailable Unavailable HO, KIRTI Unavailable [address] + [address] [place] [address] VU, PHOEBE Unavailable Unavailable + [place] [address] R Unavailable Unavailable Unavailable [facility], KIRTI Unavailable [address] [place] [address] VU, PHOEBE Unavailable Unavailable + [place] [address] R Unavailable Unavailable Unavailable HO-S[facility] IN [facility], KIRTI Unavailable [address] + [address] [place] [address] VU, PHOEBE Unavailable Unavailable + [place] [address] R Unavailable Unavailable Unavailable HO-S[facility] IN [facility], KIRTI Unavailable [address] + [address] [place] [address] VU, PHOEBE Unavailable Unavailable + [place] [address] R Unavailable Unavailable Unavailable [place] [place] , KIRTI Unavailable [address] + [address] [place] [address] VU, PHOEBE Unavailable Unavailable + [place] [address] R Unavailable Unavailable Unavailable HO-S[facility] [place] , KIRTI Unavailable [address] [place] [address] CHELSEA WOMACKEN Unavailable Unavailable + [place] [address] R Unavailable Unavailable Unavailable HO, KIRTI Unavailable [address] + [address] [place] [address] CHELSEA WOMACKEN Unavailable Unavailable + [place] [address] R Unavailable Unavailable Unavailable HO-[facility] IN [facility], KIRTI Unavailable [address] + [address] [place] [address] VU, PHOEBE Unavailable Unavailable + [place] [address] R Unavailable Unavailable Unavailable HO, KIRTI Unavailable [address] + [address] [place] [address] CHELSEA WOMACKEN Unavailable Unavailable + [place] [address] R Unavailable Unavailable Unavailable HO, KIRTI Unavailable [address] + [address] [place] [address] VU, PHOEBE Unavailable Unavailable + [place] [address] R Unavailable Unavailable Unavailable HO, KIRTI Unavailable [address] + [address] [place] [address] CHELSEA WOMACKEN Unavailable Unavailable + [place] [address] R Unavailable Unavailable Unavailable HO, KIRTI Unavailable [address] + [address] [place] [address] CHELSEA WOMACKEN Unavailable Unavailable + [place] [address] R Unavailable Unavailable Unavailable HO-SIS IN [facility], KIRTI Unavailable [address] + [address] [place] [address] CHELSEA WOMACKEN Unavailable Unavailable + [place] [address] R Unavailable Unavailable Unavailable HO-SIS IN [facility], KIRTI Unavailable [address] + [address] [place] [address] VU, PHOEBE Unavailable Unavailable + [place] [address] R Unavailable Unavailable Unavailable HO-S[facility] [place] , KIRTI Unavailable [address] + [address] [place] [address] VU, PHOEBE Unavailable Unavailable + [place] [address] R Unavailable Unavailable Unavailable HO-SIS [place] , KIRTI Unavailable [address] + [address] [place] [address] VU, PHOEBE Unavailable Unavailable + [place] [address] R Unavailable Unavailable Unavailable HO, KIRTI Unavailable [address] + [address] [place] [address] VU, PHOEBE Unavailable Unavailable + [place] [address] R Unavailable Unavailable Unavailable HO, KIRTI Unavailable [address] + [address] [place] [address] VU, PHOEBE Unavailable Unavailable + [place] [address] R Unavailable Unavailable Unavailable HO, KIRTI Unavailable [address] + [address] [place] [address] VU, PHOEBE Unavailable Unavailable + [place] [address] R Unavailable Unavailable Unavailable HO, KIRTI Unavailable [address] + [address] [place] [address] VU, PHOEBE Unavailable Unavailable + [place] [address] R Unavailable Unavailable Unavailable HO, KIRTI Unavailable [address] + [address] [place] [address] R Unavailable Unavailable Unavailable HO, KIRTI Unavailable [address] + [address] [place] [address] VU, PHOEBE Unavailable Unavailable + [place] [address] R Unavailable Unavailable Unavailable HO, KIRTI Unavailable [address] + [address] [place] [address] VU, PHOEBE Unavailable Unavailable + [place] [address] R Unavailable Unavailable Unavailable HO, KIRTI Unavailable [address] + [address] [place] [address] PHOEBE WOMACK Unavailable Unavailable + [facility] [place] [address] R Unavailable Unavailable Unavailable HO, KIRTI Unavailable [address] + [address] [place] [address] R Unavailable Unavailable Unavailable HO, KIRTI Unavailable [address] + [address] [place] [address] R Unavailable Unavailable Unavailable HO, KIRTI Unavailable [address] + [address] [place] [address] R Unavailable Unavailable Unavailable HO, KIRTI Unavailable [address] + [address] [place] [address] PHOEBE WOMACK Unavailable Unavailable + [place] [address] R Unavailable Unavailable Unavailable HO, KIRTI Unavailable [address] + [address] [place] [address] R Unavailable Unavailable Unavailable HO, KIRTI Unavailable [address] + [address] [place] [address] R Unavailable Unavailable Unavailable HO, KIRTI Unavailable [address] + [address] [place] [address] R Unavailable Unavailable Unavailable HO, KIRTI Unavailable [address] + [address] [place] [address] R Unavailable Unavailable Unavailable HO, KIRTI Unavailable [address] + [address] [place] [address] R Unavailable Unavailable Unavailable HO, KIRTI Unavailable [address] + [address] [place] [address] R Unavailable Unavailable Unavailable [place], KIRTI Unavailable [address] [place] [address] R Unavailable Unavailable Unavailable Care Team Providers Name Role Phone RON MACIAS (PLANT CONTROL AIDE) Attending Unavailable WILLIAMS PAREKH Referring Unavailable WILLIAMS PAREKH Attending Unavailable WILLIAMS PAREKH Referring Unavailable ARIEL, AMAR Attending Unavailable ARIEL AMAR Referring Unavailable ARIEL AMAR Referring Unavailable RON MACIAS (PLANT CONTROL AIDE) Attending Unavailable WILLIAMS PAREKH Referring Unavailable EMA CURRY (PROPAGATION MANAGER) Attending Unavailable Moodispaw, Michael Attending Unavailable Moodispaw, [...] Unavailable Talampas, Williams Primary Care Unavailable White, Loern Admitting Unavailable Basali, Ayman Consulting Unavailable Oleghe, [...] ATTENDING STATUS SOURCE 04/05/2018 Unknown Z79.01 - senior care Michael Figueroa (current) use of Community anticoagulants [...] Unknown I10 - Essential Michael Figueroa Active [place] (primary) hypertension Community / I10(ICD-10) Hospital Repository 03/23/2018 Unknown E78.5 - Michael Figueroa Active [place] Hyperlipidemia, Community unspecified / Hospital E78.5(ICD-10) Repository 03/05/2018 Unknown I50.9 - Heart failure, Michael Figueroa Active [place] unspecified / Community I50.9(ICD-10) Hospital Repository 02/28/2018 [...] M25.559 - Pain in Oleronnie, Octavio Active [place] unspecified hip / Community M25.559(ICD-10) Hospital Repository 12/28/2017 Unknown M06.9 - Rheumatoid Micki, Active [facility] arthritis, unspecified [place] Community / M06.9(ICD-10) Hospital Repository 12/27/2017 Unknown I48.2 - Chronic atrial Ara, Lela Active [facility] fibrillation / Community I48.2(ICD-10) Hospital Repository 12/27/2017 Unknown I42.8 - Other Ara, Lela Active [place] cardiomyopathies / Community I42.8(ICD-10) Hospital Repository 12/27/2017 Unknown 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 / Repository Z95.810(ICD-10) 12/27/2017 Unknown I47.2 - Ventricular AraLela Active [facility] tachycardia / Community I47.2(ICD-10) Hospital Repository 12/26/2017 Unknown I48.0 - Paroxysmal Moodispaw, Active [facility] atrial fibrillation / [facility] I48.0(ICD-10) Hospital Repository 12/26/2017 Unknown 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, Active [facility] 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 Repository without angina pectoris / I25.10(ICD-10) 12/26/2017 Unknown I05.2 - Rheumatic [place], Active [facility] mitral stenosis with [facility] insufficiency / Hospital I05.2(ICD-10) Repository 12/26/2017 Unknown I35.0 - Nonrheumatic [place], Active [facility] aortic (valve) [facility] stenosis / Hospital I35.0(ICD-10) Repository 12/26/2017 Unknown I47.1 - Moodispaw, Active [place] Supraventricular [facility] tachycardia / Hospital I47.1(ICD-10) Repository 01/19/2017 Active Type 2 diabetes NA Active [place] mellitus with other Clinic Main circulatory [place] complications / Repository 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 / Clinic Main Z79.4(ICD-10) [place] Repository 03/08/2014 Active Chronic kidney NA Active [place] disease, stage 4 Clinic Main (severe) / [place] N18.4(ICD-10) Repository 10/03/2017 Active Pain in unspecified NA Active [place] joint / M25.50(ICD-10) Clinic Main [place] Repository 09/07/2017 Active Acute on chronic NA Active [place] diastolic (congestive) Clinic Main heart failure / [place] I50.33(ICD-10) Repository 08/17/2017 Active Other penitentiary NA Active [place] (current) drug therapy Clinic Main / Z79.899(ICD-10) [place] Repository 08/01/2017 Active Unknown / UNK(Unknown) RON MACIAS Active [place] (PLANT CONTROL AIDE) Clinic Main [place] Repository 09/06/2017 Unknown M79.89 - Other [place] Active [place] specified soft tissue Community disorders / Hospital M79.89(ICD-10) Repository 06/21/2017 Unknown 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 Community / Z95.3(ICD-10) Hospital Repository 06/21/2017 Unknown R42 - Dizziness and Roof, Anibal H Active [facility] giddiness / Community R42(ICD-10) Hospital Repository PROCEDURES PROCEDURES No Procedure Records FoundRESULTS RESULTS PROGRESS Observed: 03/28/2018 Status: COMPLETED Source: [place] 9:21 AM [facility] REPOSITORY HNO ID: [id number] Author: Rashida Allen Service: (none) Author Type: Registered Nurse Type: Progress Notes Filed: 03/28/2018 9:21 AM Note Text: PRIMARY CARE COORDINATION QUICK NOTE Provider Action/FYI Pt 03/27/18 at [facility] Patient identified by name and date . Pt at [facility] yesterday, PROGRESS Observed: 03/28/2018 Status: COMPLETED Source: [place] 8:38 AM [facility] REPOSITORY HNO ID: [id number] Author: Makeda Curtis Cma Service: (none) Author Type: (none) Type: Progress Notes Filed: 03/28/2018 8:41 AM Note Text: I spoke with Mony at [facility] and she states that Elizabeth yesterday. CNPTOUTREACH Observed: 03/28/2018 Status: COMPLETED Source: [place] 12:00 AM [facility] REPOSITORY Patient Outreach (INTMWS) ELIZABETH HO ([id number]) 1950 F Date Time Provider Department 03/28/18 RASHIDA SALDANA INTMWS During your visit today, we recorded the following information about you: Rashida Lovell RN 03/28/2018 9:21 AM Signed PRIMARY CARE COORDINATION QUICK NOTE Provider Action/FYI Pt 03/27/18 at [facility] Patient identified by name and date . Pt at [facility] yesterday, Allergies As of Date: 03/28/2018 Noted Allergy Reaction AUGMENTIN (AMOXICILLIN-POT CLAVUL*2013 2 - Rash SULFA (SULFONAMIDE ANTIBIOTICS) 01/10/2005 4 - Hives VANCOMYCIN 08/26/2013 10 - Anaphylaxis Comments: Per pharmacist. Patient tolerating PO Vancomycin. on 01/07 pt in [facility] and had ld syndrome rxn to [facility] [...] [N25.81] INVALID FOR* CAD (coronary artery disease), [place] coronary *INVALID FOR* More... More... Torsades de [...] (ICD) in*INVALID FOR* More... More... DVT prophylaxis [MJA4821] INVALID FOR* More... Thrombocytopenia (HCC) [D69.6] INVALID [...] 03/27/2018 Status: F Source: [place] 2:08 PM [facility] REPOSITORY [facility] Cardiovascular Services [address] [place] [address] 12 Lead EKG 03/23/181926 MR#: [id number] Acct: [id number] Name: ELIZABETH HO Rep #: [id number] : 1950 67 From: Saji Hernandez MD [...] ECG Confirmed by SAJI HERNANDEZ MD ([id number]), proposal editor CAT CONKLIN ([id number]) on 03/27/2018 2:08:39 PM Referred By: KOBE Confirmed By:SAJI HERNANDEZ MD 03/27/18 1408 Date Saji Hernandez MD CC: Kandi Chávez MD; Williams Parekh MD Signed PROTIME W/INR Collected: 03/27/2018 Status: F Source: NAM FINGERSTICK 7:20 AM [facility] REPOSITORY TYPE CODE TESTS RESULT OUT OF REFERENCE UNITS RANGE LAB L9200.1001 11.9-14.4 SEC High PROTIME ISTAT 55.8 Result Comment: Reference Range 11.9 - 14.4 LAB L9200.2000 High alert INR ISTAT 5.00 Result Comment: Critical Value > 3.5 Performed By: #### L9200.0000 #### [facility] Point of Care [address] [place], [place] [address] BASIC METABOLIC Collected: 03/27/2018 Status: F Source: NAM PROFILE (BMP) 7:15 AM [facility] REPOSITORY Order Comment: 136 TYPE [...] GAP 18 Performed By: #### L500.2500 #### [facility] [address] [place], [place], [address] CBC-COMPLETE BLOOD CNT Collected: 03/24/2018 Status: F Source: NAM NO DIFF 6:30 AM [facility] REPOSITORY TYPE CODE TESTS RESULT [...] MPV 9.4 Performed By: #### L100.0500 #### [facility] [address] [place], [address] EMERGENCY DEPARTMENT Observed: 03/23/2018 Status: F Source: REALIT[place] SUMMARY 10:56 PM [facility] REPOSITORY [facility] Medical Records Department [address] [place] [address] Emergency Department Summary 03/23/18 2045 MR#: [id number] Acct: [id number] Name: ELIZABETH HO Rep #: [id number] : 1950 67 From: Kandi Chávez MD PCP: Williams Parekh MD Status: DEP ER - ER Visit Summary Date of Service: 03/23/18 Chief Complaint: Edema, shortness of breath History of Present Illness: The patient is a 67 F sent in from the [facility] with increased edema and shortness of [...] Impression: CHF This note was generated with [employer] dictation software. It may contain incorrect words, [...] your Primary Care Provider. Call [facility] ([phone]) or report to the closest Emergency Room. Call 911 if necessary. 03/23/18 2422 <Electronically signed by Kandi Chávez MD> Date Kandi Chávez MD Cosigner Signature (If Indicated): Date CC: Williams Parekh MD DISCHARGE INSTRUCTION Observed: 03/23/2018 Status: F Source: NAM 8:46 PM [facility] REPOSITORY [facility] Medical Records Department [address] [place] [address] Discharge Instruction 03/23/182044 MR#: [id number] Acct: [id number] Name: ELIZABETH HO Rep #: [id number] : 1950 67 From: Kandi Chávez MD [...] your Primary Care Provider. Call [facility] ([phone]) or report to the closest Emergency Room. Call 911 if necessary. 03/23/182045 <Electronically signed by Kandi Chávez MD> Date Kandi Chávez MD Cosigner Signature (If Indicated): Date CC: Williams Parekh MD CBC W/DIFF, AUTOMATED Collected: 03/23/2018 Status: F Source: NAM 7:43 PM [facility] REPOSITORY TYPE CODE TESTS RESULT [...] Lymph 0.36 Performed By: #### L100.0100 #### [facility] [address] [place], [place], [address] PROTHROMBIN TIME W/INR Collected: 03/23/2018 Status: F Source: [place] 7:43 PM [facility] REPOSITORY TYPE CODE TESTS RESULT OUT OF RANGE REFERENCE UNITS LAB L300.4150 11.7-14.9 SECONDS High PROTIME 25.8 LAB L300.4200 Normal INR 2.3 Performed By: #### L300.3900 #### [facility] [address] [place], [address] BASIC METABOLIC Collected: 03/23/2018 Status: F Source: [place] PROFILE (BMP) 7:43 PM [facility] REPOSITORY TYPE CODE TESTS RESULT [...] 7 Performed By: #### L500.2500, L501.4010 #### [facility] [address] [place], [place], [id number] TROPONIN-I Collected: 03/23/2018 Status: F Source: [place] 7:43 PM [facility] REPOSITORY TYPE CODE TESTS RESULT OUT OF RANGE REFERENCE UNITS LAB L501.4010 <0.045 ng/mL Normal < 0.015 TROPONIN-I Result Comment: TROPONIN-I EXPECTED VALUES <0.045 Negative 0.045 - 0.590 Consistent with Cardiac Damage > OR = 0.600 Critical Value Not every elevated troponin is indicative of DC. These values should be used with clinical judgement in examining the patient's clinical picture for diagnosis. To establish a diagnosis of DC versus myocardial injury, there must be a demonstrated rise and/or fall in the troponin values, in addition to ischemic symptoms, EKG changes, new regional wall motion abnormality, and/or angiographical evidence. PLEASE NOTE: REFERENCE RANGES EDITED 17 Performed By: #### L500.2500, L501.4010 #### [facility] [address] [place], [place], [address] BNP,B-TYPE NATRIURETIC Collected: 03/23/2018 Status: F Source: [place] PEPTIDE 7:43 PM [facility] REPOSITORY TYPE CODE TESTS RESULT OUT OF RANGE REFERENCE UNITS LAB L503.6620 0-100 pg/mL High B-TYPE 822.6 LILY PEP Performed By: #### L503.6620 #### [facility] [address] [place], [address] CHEST 1 VIEW Observed: 03/23/2018 Status: F Source: NAM (PORTABLE) 7:14 PM [facility] REPOSITORY [facility] Imaging Services [address] [place] [address] Chest 1 View (Portable) MR#: [id number] Acct: [id number] Name: ELIZABETH HO Rep #: [id number] : 1950 F 67 From: Ze Galvan DO PCP: Williams Parekh MD Status: REG ER Study: Chest 1 View (Portable) Date of Exam: 03/23/18 Exam# [id number] Ordering Dr: Kandi Chávez MD STUDY: X-RAY [...] Ze Galvan DO at 19:35 EST Tel [phone], Service support , CC: Kandi Chávez MD; Williams Parekh MD Leasing Consultant: Signed CBC-COMPLETE BLOOD CNT Collected: 03/22/2018 Status: F Source: NAM NO DIFF 6:35 AM [facility] REPOSITORY TYPE CODE TESTS RESULT [...] MPV 10.2 Performed By: #### L100.0500 #### [facility] [address] [place], [place], [address] BASIC METABOLIC Collected: 03/22/2018 Status: F Source: NAM PROFILE (BMP) 6:35 AM [facility] REPOSITORY TYPE CODE TESTS RESULT [...] GAP 7 Performed By: #### L500.2500 #### [facility] [address] [place], [address] PROGRESS Observed: 03/21/2018 Status: COMPLETED Source: [place] 8:55 AM [facility] REPOSITORY HNO ID: [id number] Author: Makeda Curtis Cma Service: (none) Author Type: (none) Type: Progress Notes Filed: 03/21/2018 8:57 AM Note Text: Left message for to return call #[phone] Patient still residing at [facility] CBC-COMPLETE BLOOD CNT Collected: 03/20/2018 Status: F Source: NAM NO DIFF 5:35 AM [facility] REPOSITORY Order Comment: 136 TYPE [...] MPV 10.8 Performed By: #### L100.0500 #### [facility] [address] [place], [place], [address] BASIC METABOLIC Collected: 03/20/2018 Status: F Source: NAM PROFILE (BMP) 5:35 AM [facility] REPOSITORY Order Comment: 136 TYPE [...] GAP 6 Performed By: #### L500.2500 #### [facility] [address] [place], [place], [id number] PROTHROMBIN TIME W/INR Collected: 03/20/2018 Status: F Source: [place] 5:35 AM [facility] REPOSITORY Order Comment: 136 TYPE CODE TESTS RESULT OUT OF RANGE REFERENCE UNITS LAB L300.4150 11.7-14.9 SECONDS High PROTIME 25.0 LAB L300.4200 Normal INR 2.3 Performed By: #### L300.3900 #### [facility] [address] [place], [address] PROTIME W/INR Collected: 03/19/2018 Status: F Source: [place] FINGERSTICK 6:15 AM [facility] REPOSITORY TYPE CODE TESTS RESULT OUT OF REFERENCE UNITS RANGE LAB L9200.1001 11.9-14.4 SEC High PROTIME ISTAT 26.9 Result Comment: Reference Range 11.9 - 14.4 LAB L9200.2000 Normal INR ISTAT 2.30 Result Comment: Critical Value > 3.5 Performed By: #### L9200.0000 #### [facility] Point of Care [address] [place] [address] PROTHROMBIN TIME W/INR Collected: 03/16/2018 Status: F Source: [place] 10:45 AM [facility] REPOSITORY Order Comment: RM: 136 TYPE CODE TESTS RESULT OUT OF REFERENCE UNITS RANGE LAB L300.4150 11.7-14.9 SECONDS High PROTIME 39.1 LAB L300.4200 High alert INR 4.0 Result Comment: CRITICAL VALUE VERIFIED. CALLED TO NIC AT THE [address] OF [place] 03/16/18 1249 Cyndie Lanier. RESULTS READ BACK BY SAME . Performed By: #### L300.3900 #### [facility] [address] [place], [address] COMPREHENSIVE METABOLIC Collected: 03/16/2018 Status: F Source: [facility] 10:45 AM [facility] REPOSITORY Order Comment: RM: 136 [...] GAP 10 Performed By: #### L500.4050 #### [facility] [address] [place], [place], [address] PROTIME W/INR Collected: 03/16/2018 Status: F Source: [place] 5:37 AM [facility] REPOSITORY TYPE CODE TESTS RESULT OUT OF REFERENCE UNITS RANGE LAB L9200.1001 11.9-14.4 SEC High PROTIME ISTAT 48.4 Result Comment: Reference Range 11.9 - 14.4 LAB L9200.2000 High alert INR ISTAT 4.30 Result Comment: Critical Value > 3.5 Performed By: #### L9200.0000 #### [facility] Point of Care [address] [place], [place] [id number] PROGRESS Observed: 03/14/2018 Status: COMPLETED Source: I[place] 8:57 AM [facility] REPOSITORY HNO ID: [id number] Author: Makeda Ever Valle Service: (none) Author Type: (none) Type: Progress Notes Filed: 03/14/2018 8:57 AM Note Text: No discharge plans in place at this time. PROTHROMBIN TIME W/INR Collected: 03/14/2018 Status: F Source: NAM 6:05 AM [facility] REPOSITORY Order Comment: 136 TYPE CODE TESTS RESULT OUT OF REFERENCE UNITS RANGE LAB L300.4150 11.7-14.9 SECONDS High PROTIME 40.9 LAB L300.4200 High alert INR 4.2 Result Comment: CRITICAL VALUE VERIFIED. CALLED TO GWEN FRANCISCO 03/14/18 0935 Reji Taylor. RESULTS READ BACK BY SAME. Performed By: #### L300.3900 #### [facility] [address] [place], [place], [id number] CBC-COMPLETE BLOOD CNT Collected: 03/12/2018 Status: F Source: NAM NO DIFF 5:25 AM [facility] REPOSITORY Order Comment: ROOM 136 [...] MPV 10.4 Performed By: #### L100.0500 #### [facility] [address] [place], [place], [address] BASIC METABOLIC Collected: 03/12/2018 Status: F Source: NAM PROFILE (BMP) 5:25 AM [facility] REPOSITORY Order Comment: ROOM 136 [...] GAP 5 Performed By: #### L500.2500 #### [facility] [address] [place], [place], [address] PROTHROMBIN TIME W/INR Collected: 03/12/2018 Status: F Source: NAM 5:25 AM [facility] REPOSITORY Order Comment: ROOM 136 TYPE CODE TESTS RESULT OUT OF REFERENCE UNITS RANGE LAB L300.4150 11.7-14.9 SECONDS High PROTIME 43.9 LAB L300.4200 High alert INR 4.6 Result Comment: CRITICAL VALUE VERIFIED. CALLED TO JACK FRANCISCO 03/12/18 0841 Reji Taylor. RESULTS READ BACK BY SAME. Performed By: #### L300.3900 #### [facility] [address] [place], [place], [address] PROGRESS Observed: 03/07/2018 Status: COMPLETED Source: [place] 9:54 AM [facility] REPOSITORY HNO ID: [id number] Author: Makeda Curtis Cma Service: (none) Author Type: (none) Type: Progress Notes Filed: 03/07/2018 9:54 AM Note Text: No discharge plans in place at this time. BASIC METABOLIC Collected: 03/06/2018 Status: F Source: NAM PROFILE (BMP) 6:25 AM [facility] REPOSITORY Order Comment: 136 TYPE [...] GAP 6 Performed By: #### L500.2500 #### [facility] [address] [place], [address] CBC-COMPLETE BLOOD CNT Collected: 03/06/2018 Status: F Source: NAM NO DIFF 6:25 AM [facility] REPOSITORY TYPE CODE TESTS RESULT [...] MPV 10.5 Performed By: #### L100.0500 #### [facility] [address] [place], [address] PROTIME W/INR Collected: 03/02/2018 Status: F Source: NAM [place] 5:52 AM [facility] REPOSITORY TYPE CODE TESTS RESULT OUT OF REFERENCE UNITS RANGE LAB L9200.1001 11.9-14.4 SEC High PROTIME ISTAT 26.7 Result Comment: Reference Range 11.9 - 14.4 LAB L9200.2000 Normal INR ISTAT 2.30 Result Comment: Critical Value > 3.5 Performed By: #### L9200.0000 #### [facility] Point of Care [address] [place], [place] [address] PROGRESS Observed: 03/01/2018 Status: COMPLETED Source: [place] 10:00 AM [facility] REPOSITORY HNO ID: [id number] Author: Makeda Curtis Cma Service: (none) Author Type: (none) Type: Progress Notes Filed: 03/01/2018 10:01 AM Note Text: No discharge plans in place at this time. CBC-COMPLETE BLOOD CNT Collected: 02/28/2018 Status: F Source: NAM NO DIFF 6:20 AM [facility] REPOSITORY Order Comment: RM 136 [...] MPV 10.8 Performed By: #### L100.0500 #### [facility] [address] [place], [place], [address] PROGRESS Observed: 02/21/2018 Status: COMPLETED Source: [place] 9:23 AM [facility] REPOSITORY HNO ID: [id number] Author: Makeda Curtis Cma Service: (none) Author Type: (none) Type: Progress Notes Filed: 02/21/2018 9:23 AM Note Text: No plans in place at this time. PROTHROMBIN TIME W/INR Collected: 02/20/2018 Status: F Source: NAM 5:50 AM [facility] REPOSITORY Order Comment: ROOM 136 TYPE CODE TESTS RESULT OUT OF RANGE REFERENCE UNITS LAB L300.4150 11.7-14.9 SECONDS High PROTIME 25.6 LAB L300.4200 Normal INR 2.3 Performed By: #### L300.3900 #### [facility] [address] [place] [place], [address] BASIC METABOLIC Collected: 02/20/2018 Status: F Source: NAM PROFILE (BMP) 5:50 AM [facility] REPOSITORY Order Comment: ROOM 136 [...] GAP 7 Performed By: #### L500.2500 #### [facility] [address] [place], [address] CBC-COMPLETE BLOOD CNT Collected: 02/20/2018 Status: F Source: [place] NO DIFF 5:50 AM [facility] REPOSITORY Order Comment: ROOM 136 [...] MPV 10.6 Performed By: #### L100.0500 #### [facility] [address] [place], [place], [address] HEMOGLOBIN A1C Collected: 02/20/2018 Status: F Source: NAM 5:50 AM [facility] REPOSITORY TYPE CODE TESTS RESULT OUT OF RANGE REFERENCE UNITS LAB L501.9985 4.2-6.3 % High HGB A1C 7.3 Performed By: #### L501.9985 #### [facility] [address] [place], [address] PROGRESS Observed: 02/15/2018 Status: COMPLETED Source: [place] 9:13 AM [facility] REPOSITORY HNO ID: [id number] Author: Makeda Curtis Cma Service: (none) Author Type: (none) Type: Progress Notes Filed: 02/15/2018 9:15 AM Note Text: No discharge plans in place at this time. CBC-COMPLETE BLOOD CNT Collected: 02/14/2018 Status: F Source: NAM NO DIFF 8:20 AM [facility] REPOSITORY TYPE CODE TESTS RESULT [...] MPV 10.5 Performed By: #### L100.0500 #### [facility] [address] [place], [address] PROTIME W/INR Collected: 02/09/2018 Status: F Source: NAM [place] 7:01 AM [facility] REPOSITORY TYPE CODE TESTS RESULT OUT OF REFERENCE UNITS RANGE LAB L9200.1001 11.9-14.4 SEC High PROTIME ISTAT 31.8 Result Comment: Reference Range 11.9 - 14.4 LAB L9200.2000 Normal INR ISTAT 2.80 Result Comment: Critical Value > 3.5 Performed By: #### L9200.0000 #### [facility] Point of Care [address] [place], [place] [address] CBC-COMPLETE BLOOD CNT Collected: 02/08/2018 Status: F Source: NAM NO DIFF 7:05 AM [facility] REPOSITORY TYPE CODE TESTS RESULT [...] MPV 10.2 Performed By: #### L100.0500 #### [facility] [address] [place], [place], [address] BASIC METABOLIC Collected: 02/08/2018 Status: F Source: NAM PROFILE (BMP) 7:05 AM [facility] REPOSITORY TYPE CODE TESTS RESULT [...] GAP 5 Performed By: #### L500.2500 #### [facility] [address] [place], [address] PROGRESS Observed: 02/07/2018 Status: COMPLETED Source: [place] 4:34 PM [facility] REPOSITORY HNO ID: [id number] Author: Rashida Allen Service: (none) Author Type: Registered Nurse Type: Progress Notes Filed: 02/07/2018 4:47 PM Note Text: PRIMARY CARE COORDINATION FOLLOW-UP NOTE Provider Action/FYI Pt went to [facility] with hip pain and debility after her appt her in Dec. She is currently in rehab at the [facility] and will be moving into the [place] section there after rehab. Patient identified by name and date of . YES Spoke to patient Summary: Pt is in the [facility]. [place] moving to [place] there as well. She will call when she is out for continuing care. Concerns: Her hip pain is lessening with therapy. She was in [facility] 3 days after her appt with pain and went to the [facility] for rehab. 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 outreach: Will follow up upon D/C from [facility] Rashida Allen RN Ambulatory [facility] February 07, 2018 PROTIME W/INR Collected: 02/07/2018 Status: F Source: [place]AM [place] 10:23 AM [facility] REPOSITORY TYPE CODE TESTS RESULT OUT OF REFERENCE UNITS RANGE LAB L9200.1001 11.9-14.4 SEC High PROTIME ISTAT 35.5 Result Comment: Reference Range 11.9 - 14.4 LAB L9200.2000 Normal INR ISTAT 3.10 Result Comment: Critical Value > 3.5 Performed By: #### L9200.0000 #### [facility] Point of Care [address] [place] [address] CNPTOUTREACH Observed: 02/07/2018 Status: COMPLETED Source: [place] 12:00 AM [facility] REPOSITORY Patient Outreach (INTMWS) ELIZABETH HO ([id number]) 1950 F Date Time Provider Department 02/07/18 RASHIDA SALDANA During your visit today, we recorded the following information about you: Rashida Lovell RN 02/07/2018 4:47 PM Signed PRIMARY CARE COORDINATION FOLLOW-UP NOTE Provider Action/FYI Pt went to [facility] with hip pain and debility after her appt her in Dec. She is currently in rehab at the [facility] and will be moving into the [place] section there after rehab. Patient identified by name and date of . YES Spoke to patient Summary: Pt is in the [facility]. She will be moving to [place] there as well. She will call when she is out for continuing care. Concerns: Her hip pain is lessening with therapy. She was in [facility] 3 days after her appt with pain and went to the [facility] for rehab. 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 Makeda Curtis [facility] 02/21/2018 9:23 AM Signed No plans in place at this time. Makeda Curtis [facility] 03/01/2018 10:01 AM Signed No discharge plans in place at this time. Makeda Curtis [facility] 03/07/2018 9:54 AM Signed No discharge plans in place at this time. Makeda Curtis [facility] 03/14/2018 8:57 AM Signed No discharge plans in place at this time. Makeda Curtis [facility] 03/21/2018 8:57 AM Signed Left message for to return call #[phone] Patient still residing at [facility] Makeda Curtis [facility] 03/28/2018 8:41 AM Signed I spoke with Mony at [facility] and she states that Elizabeth yesterday. Allergies As of Date: 02/07/2018 Noted Allergy Reaction AUGMENTIN (AMOXICILLIN-POT CLAVUL*2013 2 - Rash SULFA (SULFONAMIDE ANTIBIOTICS) 01/10/2005 4 - Hives VANCOMYCIN 08/26/2013 10 - Anaphylaxis Comments: Per pharmacist. Patient tolerating PO Vancomycin. on 01/07 pt in [facility] and had ld syndrome rxn to Vanc [...] [N25.81] INVALID FOR* CAD (coronary artery disease), [place] coronary *INVALID FOR* More... More... Torsades de [...] (ICD) in*INVALID FOR* More... More... DVT prophylaxis [[id number]] INVALID FOR* More... Thrombocytopenia (HCC) [D69.6] INVALID [...] F Source: NAM PROFILE (BMP) 6:15 AM [facility] REPOSITORY TYPE CODE TESTS RESULT [...] GAP 8 Performed By: #### L500.2500 #### [facility] [address] [place], [place], [address] PROTHROMBIN TIME W/INR Collected: 01/31/2018 Status: F Source: NAM 6:15 AM [facility] REPOSITORY Order Comment: ROOM 136 TYPE CODE TESTS RESULT OUT OF RANGE REFERENCE UNITS LAB L300.4150 11.7-14.9 SECONDS High PROTIME 28.5 LAB L300.4200 Normal INR 2.7 Performed By: #### L300.3900 #### [facility] [address] [place], [address] CBC-COMPLETE BLOOD CNT Collected: 01/31/2018 Status: F Source: NAM NO DIFF 6:15 AM [facility] REPOSITORY Order Comment: ROOM 136 [...] MPV 10.8 Performed By: #### L100.0500 #### [facility] [address] [place], [place], [address] PROTHROMBIN TIME W/INR Collected: 01/23/2018 Status: F Source: [place] 6:10 AM [facility] REPOSITORY Order Comment: ORDERED RENAL,CBC,PTHIN,VITD,PLATELET; ORDERED BMP,CBC,PT TYPE CODE TESTS RESULT OUT OF RANGE REFERENCE UNITS LAB L300.4150 11.7-14.9 SECONDS High PROTIME 34.6 LAB L300.4200 Normal INR 3.4 Performed By: #### L300.3900 #### [facility] [address] [place], [address] CBC-COMPLETE BLOOD CNT Collected: 01/23/2018 Status: F Source: [place] NO DIFF 6:10 AM [facility] REPOSITORY Order Comment: ORDERED RENAL,CBC,PTHIN,VITD,PLATELET; [...] MPV 10.5 Performed By: #### L100.0500 #### [facility] [address] [place], [address] VITAMIN D,25 HYDROXY Collected: 01/23/2018 Status: F Source: NAM 6:10 AM [facility] REPOSITORY Order Comment: ORDERED RENAL,CBC,PTHIN,VITD,PLATELET; [...] (>250 nmol/L) Performed By: #### L506.1000 #### [facility] [address] [place], [place], [address] RENAL PROFILE Collected: 01/23/2018 Status: F Source: [place] 6:10 AM [facility] REPOSITORY Order Comment: ORDERED RENAL,CBC,PTHIN,VITD,PLATELET; [...] at: 09:28:02 01/23/2018 by: [facility] LAB L501.1100 0.55-1.02 mg/dL CREAT,SERUM High 2.08 [...] CO2 30.0 Performed By: #### L500.3600 #### [facility] [address] [place], [address] PTHIN Collected: 01/23/2018 Status: F Source: NAM 6:10 AM [facility] REPOSITORY Order Comment: ORDERED RENAL,CBC,PTHIN,VITD,PLATELET; ORDERED BMP,CBC,PT TYPE CODE TESTS RESULT OUT OF RANGE REFERENCE UNITS LAB L509.1000 18.4-80.1 pg/mL High PTHIN 219.0 Performed By: #### L509.1000 #### [facility] [address] [place], [address] PROTEIN+CREATININE Collected: Status: F Source: NAM RATIO,URINE 01/22/2018 9:00 PM [facility] REPOSITORY TYPE CODE TESTS RESULT OUT OF RANGE REFERENCE UNITS LAB L501.1200 NO RANGE EST. mg/dL Normal UR CREAT 29.60 LAB L501.1930 <11.9 mg/dL High 16.3 PROTEIN,UR.R AN. LAB L501.1940 0-200 mg/g CRE High PROT:CRE 551 RATIO Performed By: #### L501.0900 #### [facility] [address] [place], [address] PROTIME W/INR Collected: 01/19/2018 Status: F Source: [place] 6:43 AM [facility] REPOSITORY TYPE CODE TESTS RESULT OUT OF REFERENCE UNITS RANGE LAB L9200.1001 11.9-14.4 SEC High PROTIME ISTAT 31.5 Result Comment: Reference Range 11.9 - 14.4 LAB L9200.2000 Normal INR ISTAT 2.80 Result Comment: Critical Value > 3.5 Performed By: #### L9200.0000 #### [facility] Point of Care [address] [place] [address] PROGRESS Observed: 01/18/2018 Status: COMPLETED Source: [place] 8:53 AM [facility] REPOSITORY HNO ID: [id number] Author: Rashida Allen Service: (none) Author Type: [...] to patient for Care Coordination. 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 Rashida Allen RN Ambulatory [facility] Allergies As of Date: 01/18/2018 Noted Allergy Reaction AUGMENTIN (AMOXICILLIN-POT CLAVUL*2013 2 - Rash SULFA (SULFONAMIDE ANTIBIOTICS) 01/10/2005 4 - Hives VANCOMYCIN 08/26/2013 10 - Anaphylaxis Comments: Per pharmacist. Patient tolerating PO Vancomycin. on 01/07 pt in [facility] and had ld syndrome rxn to Vanc [...] [N25.81] INVALID FOR* CAD (coronary artery disease), [place] coronary *INVALID FOR* Priority: F More... More... [...] (ICD) in*INVALID FOR* More... More... DVT prophylaxis [[id number]] INVALID FOR* More... Thrombocytopenia (HCC) [D69.6] INVALID [...] F Source: NAM NO DIFF 6:00 AM [facility] REPOSITORY TYPE CODE TESTS RESULT [...] MPV 10.8 Performed By: #### L100.0500 #### [facility] [address] [place], [address] COMPREHENSIVE METABOLIC Collected: 01/17/2018 Status: F Source: [facility] 6:00 AM [facility] REPOSITORY Order Comment: 136 TYPE [...] Result(s) Called at: 09:39:14 01/17/2018 by: [facility] LAB L501.1100 0.55-1.02 mg/dL CREAT,SERUM High 2.61 [...] GAP 11 Performed By: #### L500.4050 #### [facility] [address] [place], [address] Observed: 01/15/2018 Status: F Source: [place] CDIFF (MOLECULAR) 1:45 PM [facility] REPOSITORY Cdiff-Molecular Normal Reference Range = Negative C. Diff DNA Negative- No toxigenic C. Diff DNA Detected NAAT METHOD Testing was performed using nucleic acid amplification Performed By: #### M100.6796 #### [facility] [address] [place], [address] CBC-COMPLETE BLOOD CNT Collected: 01/10/2018 Status: F Source: NAM NO DIFF 7:35 AM [facility] REPOSITORY TYPE CODE TESTS RESULT [...] MPV 10.8 Performed By: #### L100.0500 #### [facility] [address] [place], [place], [address] BASIC METABOLIC Collected: 01/10/2018 Status: F Source: NAM PROFILE (BMP) 7:35 AM [facility] REPOSITORY TYPE CODE TESTS RESULT [...] GAP 12 Performed By: #### L500.2500 #### [facility] [address] [place], [place], [address] CBC-COMPLETE BLOOD CNT Collected: 01/08/2018 Status: F Source: NAM NO DIFF 4:45 AM [facility] REPOSITORY Order Comment: RM:136 TYPE [...] MPV 10.8 Performed By: #### L100.0500 #### [facility] [address] [place], [address] BASIC METABOLIC Collected: 01/08/2018 Status: F Source: [place] PROFILE (BMP) 4:45 AM [facility] REPOSITORY Order Comment: RM:136 TYPE [...] GAP 8 Performed By: #### L500.2500 #### [facility] [address] [place], [address] PROTHROMBIN TIME W/INR Collected: 01/08/2018 Status: F Source: NAM 4:45 AM [facility] REPOSITORY Order Comment: RM:136 TYPE CODE TESTS RESULT OUT OF RANGE REFERENCE UNITS LAB L300.4150 11.7-14.9 SECONDS High PROTIME 22.9 LAB L300.4200 Normal INR 2.0 Performed By: #### L300.3900 #### [facility] [address] [facility] [address] PROTHROMBIN TIME W/INR Collected: 01/04/2018 Status: F Source: [place] 5:35 AM [facility] REPOSITORY Order Comment: ROOM 126 TYPE CODE TESTS RESULT OUT OF RANGE REFERENCE UNITS LAB L300.4150 11.7-14.9 SECONDS High PROTIME 29.2 LAB L300.4200 Normal INR 2.7 Performed By: #### L300.3900 #### [facility] [place], [address] BEDSIDE GLUCOSE Collected: 01/03/2018 Status: F Source: [place] 5:14 PM [facility] REPOSITORY TYPE CODE TESTS RESULT OUT OF REFERENCE UNITS RANGE LAB L501.080 70-110 mg/dL High BEDSIDE GLU 215 Result Comment: MANAGEMENT OF PATIENT CARE PER NURSING PROTOCOL Performed By: #### L501.080 #### [facility] Point of Care [address] [place] [address] DISCHARGE SUMMARY Observed: 01/03/2018 Status: F Source: [place] 4:12 PM [facility] REPOSITORY [facility] Medical Records Department [facility] [address] [place] [address] Discharge Summary 01/03/18 1518 MR#: [id number] Acct: [id number] Name: ELIZABETH HO Rep #: [id number] : 1950 67 From: Cristian ALFARO PCP: Williams Parekh MD Status: ADM JANE Y Location: [place] [id number] Discharge Date and Diagnosis - Problem List [...] emergency room as an outpatient and trialed [place] and steroids without any relief. She represented to the emergency room as she continued to have worsening of her pain and had more difficulty ambulating. She did not feel safe at home and was concerned that she was going to fall. 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 She desires detention placement. She was admitted to the medical surgical floor and started on supportive care including oxycodone, Tylenol, Lidoderm, with the consult pain management. Pain management recommended and injection however she was not interested in doing this because she was concerned about holding her warfarin. She was seen by PT and OT and recommendations were made for detention therapy. The patient was agreeable and she [...] M.D.; Williams Parekh MD Signed TRANSFER TO [facility] Observed: 01/03/2018 Status: F Source: [facility] 4:12 PM [facility] REPOSITORY [facility] Medical Records Department [address] [place] [address] Transfer to Extended Care MR#: [id number] Acct: [id number] Name: ELIZABETH HO Rep #: [id number] : 1950 67 From: Cristian ALFARO PCP: Williams Parekh MD Status: ADM JANE ELIZABETH HO (Patient) (Health Ins. Claim No.) (Day of Discharge to Facility) Certification of patient admission REQUIRED AT TIME OF ADMISSION. I CERTIFY THAT POST-HOSPITAL ECF SERVICES ARE REQUIRED TO BE GIVEN ON AN IN-PATIENT BASIS BECAUSE OF THE ABOVE NAMED PATIENT'S NEED FOR JAIL CARE ON A CONTINUING BASIS FOR THE [...] BEDSIDE GLUCOSE Collected: 01/03/2018 Status: F Source: [place] 11:50 AM [facility] REPOSITORY TYPE CODE TESTS RESULT OUT OF REFERENCE UNITS RANGE LAB L501.080 70-110 mg/dL High BEDSIDE GLU 185 Result Comment: MANAGEMENT OF PATIENT CARE PER NURSING PROTOCOL Performed By: #### L501.080 #### [facility] Point of Care [address] [place] [address] BEDSIDE GLUCOSE Collected: 01/03/2018 Status: F Source: NAM 7:47 AM [facility] REPOSITORY TYPE CODE TESTS RESULT OUT OF RANGE REFERENCE UNITS LAB L501.080 70-110 mg/dL Normal BEDSIDE GLU 102 Result Comment: MANAGEMENT OF PATIENT CARE PER NURSING PROTOCOL Performed By: #### L501.080 #### [facility] Point of Care [address] [place] [address] BASIC METABOLIC Collected: 01/03/2018 Status: F Source: NAM PROFILE (BMP) 5:52 AM [facility] REPOSITORY TYPE CODE TESTS RESULT [...] GAP 8 Performed By: #### L500.2500 #### [facility] [address] [place], [address] PROTHROMBIN TIME W/INR Collected: 01/03/2018 Status: F Source: REALITOS 5:52 AM [facility] REPOSITORY TYPE CODE TESTS RESULT OUT OF REFERENCE UNITS RANGE LAB L300.4150 11.7-14.9 SECONDS High PROTIME 35.2 LAB L300.4200 High alert INR 3.5 Result Comment: CRITICAL VALUE VERIFIED. CALLED TO TIMRN MS3 01/03/18 0631 Ilsa Stanford. RESULTS READ BACK BY SAME . Performed By: #### L300.3900 #### [facility] [address] [place], [address] CBC W/DIFF, AUTOMATED Collected: 01/03/2018 Status: C Source: REALITOS 5:52 AM [facility] REPOSITORY TYPE CODE TESTS RESULT [...] August dina Performed By: #### L100.0100 #### [facility] [address] [place], [address] BEDSIDE GLUCOSE Collected: 01/02/2018 Status: F Source: NAM 9:39 PM [facility] REPOSITORY TYPE CODE TESTS RESULT OUT OF RANGE REFERENCE UNITS LAB L501.080 70-110 mg/dL Normal BEDSIDE GLU 109 Result Comment: MANAGEMENT OF PATIENT CARE PER NURSING PROTOCOL Performed By: #### L501.080 #### [facility] Point of Care [address] [place] [address] BEDSIDE GLUCOSE Collected: 01/02/2018 Status: F Source: NAM 5:42 PM [facility] REPOSITORY TYPE CODE TESTS RESULT OUT OF RANGE REFERENCE UNITS LAB L501.080 70-110 mg/dL Normal BEDSIDE GLU 95 Result Comment: MANAGEMENT OF PATIENT CARE PER NURSING PROTOCOL Performed By: #### L501.080 #### [facility] Point of Care [address] [place] [address] BEDSIDE GLUCOSE Collected: 01/02/2018 Status: F Source: NAM 5:15 PM [facility] REPOSITORY TYPE CODE TESTS RESULT OUT OF REFERENCE UNITS RANGE LAB L501.080 70-110 mg/dL Low BEDSIDE GLU 49 Result Comment: MANAGEMENT OF PATIENT CARE PER NURSING PROTOCOL Performed By: #### L501.080 #### [facility] Point of Care [address] [place] [address] BEDSIDE GLUCOSE Collected: 01/02/2018 Status: F Source: NAM 11:37 AM [facility] REPOSITORY TYPE CODE TESTS RESULT OUT OF REFERENCE UNITS RANGE LAB L501.080 70-110 mg/dL High BEDSIDE GLU 160 Result Comment: MANAGEMENT OF PATIENT CARE PER NURSING PROTOCOL Performed By: #### L501.080 #### [facility] Point of Care [address] [place] [address] BEDSIDE GLUCOSE Collected: 01/02/2018 Status: F Source: NAM 7:44 AM [facility] REPOSITORY TYPE CODE TESTS RESULT OUT OF REFERENCE UNITS RANGE LAB L501.080 70-110 mg/dL High BEDSIDE GLU 128 Result Comment: MANAGEMENT OF PATIENT CARE PER NURSING PROTOCOL Performed By: #### L501.080 #### [facility] Point of Care [address] [place] [address] CBC W/DIFF, AUTOMATED Collected: 01/02/2018 Status: C Source: NAM 5:34 AM [facility] REPOSITORY TYPE CODE TESTS RESULT [...] August dina Performed By: #### L100.0100 #### [facility] [address] [place], [place], [address] BASIC METABOLIC Collected: 01/02/2018 Status: F Source: REALITOS PROFILE ([facility]) 5:34 AM [facility] REPOSITORY TYPE CODE TESTS RESULT [...] GAP 10 Performed By: #### L500.2500 #### [facility] [address] [place], [address] PROTHROMBIN TIME W/INR Collected: 01/02/2018 Status: F Source: REALITOS 5:34 AM [facility] REPOSITORY TYPE CODE TESTS RESULT OUT OF REFERENCE UNITS RANGE LAB L300.4150 11.7-14.9 SECONDS High PROTIME 38.1 LAB L300.4200 High alert INR 3.8 Result Comment: CRITICAL VALUE VERIFIED. CALLED TO TIMRN MS3 01/02/18 0614 Ilsa Stanford. RESULTS READ BACK BY SAME . Performed By: #### L300.3900 #### [facility] [address] [place], [place], [address] CRP Collected: 01/02/2018 Status: F Source: REALITOS 5:34 AM [facility] REPOSITORY TYPE CODE TESTS RESULT OUT OF RANGE REFERENCE UNITS LAB L501.6710 0.0-3.0 mg/L High 26.20 C-REACTIVE PROT Result Comment: C-Reactive Protein (CRP) provides useful information for the diagnosis, therapy and monitoring of inflammatory processes and associated diseases. For the evaluation of Relative Risk for Cardiovascular Disease, a High Sensitivity CRP (HSCRP) should be ordered. Performed By: #### L501.6710 #### [facility] [address] [place], [place], [address] CPK TOTAL, CREATINE Collected: 01/02/2018 Status: F Source: NAM KINASE 5:34 AM [facility] REPOSITORY TYPE CODE TESTS RESULT OUT OF RANGE REFERENCE UNITS LAB L501.3620 26-192 U/L Normal CPK TOTAL 159 Performed By: #### L501.3620 #### [facility] [address] [place], [address] ERYTHROCYTE SED RATE Collected: 01/02/2018 Status: F Source: NAM 5:34 AM [facility] REPOSITORY TYPE CODE TESTS RESULT OUT OF RANGE REFERENCE UNITS LAB L102.0000 0-30 mm/hr High SED RATE 39 Performed By: #### L101.9900 #### [facility] [address] [place], [address] IRON+IRON BINDING Collected: 01/02/2018 Status: F Source: NAM CAPACITY 5:34 AM [facility] REPOSITORY Order Comment: Comments: ok to add on Comments: ok to add on TYPE CODE TESTS RESULT OUT OF RANGE REFERENCE UNITS LAB L503.6075 250-450 ug/dL TIBC Normal 360 LAB L503.6150 50-170 ug/dL IRON Normal 56 LAB L503.6250 15.0-55.0 % IRON Normal SATURATION 15.6 Performed By: #### L503.6030, L503.6550 #### [facility] [address] [place], [address] FERRITIN Collected: 01/02/2018 Status: F Source: NAM 5:34 AM [facility] REPOSITORY Order Comment: Comments: ok to add on Comments: ok to add on TYPE CODE TESTS RESULT OUT OF RANGE REFERENCE UNITS LAB L503.6550 8-252 ng/mL Normal FERRITIN 69 Performed By: #### L503.6030, L503.6550 #### [facility] [address] [place], [address] EMERGENCY DEPARTMENT Observed: 01/01/2018 Status: F Source: NAM SUMMARY 10:58 PM [facility] REPOSITORY [facility] Medical Records Department [address] [place] [address] Emergency Department Summary 01/01/18 1514 MR#: [id number] Acct: [id number] Name: ELIZABETH HO Rep #: [id number] : 1950 67 From: Brian Frey MD [...] the hospital overnight for precertification for a prison. She was discussed with Dr. Mendez. Disposition: Admitted in stable condition. Impression: 1. Right hip pain, acute. 2. Coumadin coagulopathy. This note was generated with Postcronation software. It may contain incorrect words, spelling, [...] your Primary Care Provider. Call [facility] ([phone]) or report to the closest Emergency Room. Call 911 if necessary. 01/01/18 2258 <Electronically signed by Brian Frey MD> Date Brian Frey MD Cosigner Signature (If Indicated): Date CC: Williams Parekh MD BEDSIDE GLUCOSE Collected: 01/01/2018 Status: F Source: NAM 10:05 PM [facility] REPOSITORY TYPE CODE TESTS RESULT OUT OF REFERENCE UNITS RANGE LAB L501.080 70-110 mg/dL High BEDSIDE GLU 227 Result Comment: MANAGEMENT OF PATIENT CARE PER NURSING PROTOCOL Performed By: #### L501.080 #### [facility] Point of Care [facility] [place] [address] BASIC METABOLIC Collected: 01/01/2018 Status: F Source: NAM PROFILE (BMP) 8:17 PM [facility] REPOSITORY TYPE CODE TESTS RESULT [...] GAP 4 Performed By: #### L500.2500 #### [facility] [place], [address] CBC W/DIFF, AUTOMATED Collected: 01/01/2018 Status: F Source: NAM 8:17 PM [facility] REPOSITORY TYPE CODE TESTS RESULT [...] LYMPHOPENIA NOTED Performed By: #### L100.0100 #### [facility] [address] [place], [place], [address] PROTHROMBIN TIME W/INR Collected: 01/01/2018 Status: F Source: REALITOS 8:17 PM [facility] REPOSITORY TYPE CODE TESTS RESULT OUT OF REFERENCE UNITS RANGE LAB L300.4150 11.7-14.9 SECONDS High PROTIME 37.7 LAB L300.4200 High alert INR 3.8 Result Comment: CRITICAL VALUE VERIFIED. CALLED TO DCLARK 01/01/18 Lena Faria. RESULTS READ BACK BY SAME . Performed By: #### L300.3900 #### [facility] [address] [place], [place], [address] MAGNESIUM Collected: 01/01/2018 Status: F Source: REALITOS 8:17 PM [facility] REPOSITORY TYPE CODE TESTS RESULT OUT OF RANGE REFERENCE UNITS LAB L501.5200 1.6-2.6 mg/dL High MG 2.8 Performed By: #### L501.5200 #### [facility] [address] [place], [address] HISTORY AND PHYSICAL Observed: 01/01/2018 Status: F Source: REALITOS EXAM 6:28 PM [facility] REPOSITORY [facility] Medical Records Department [address] [place] [address] History and Physical 01/01/18 1751 MR#: [id number] Acct: [id number] Name: ELIZABETH HO Rep #: [id number] : 1950 67 From: Cristian ALFARO PCP: Williams Parekh MD Status: ADM JANE Y Location: [place] [address] ADDENDUM by Loren Mendez on 01/01/18 at [...] LE Lymphedema/PVD, Obesity who presents to the [facility] ED on 01/01/18 with history of ongoing [...] LE Lymphedema/PVD, Obesity who presents to the [facility] ED on 01/01/18 with history of ongoing [...] that living will and HCPOA in place (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 Advanced Care Planning Face to Face Time: 17 minutes. OBSV E AND M: 60374 Initial observation care L3 Procedures: 45156 Advncd Care Plan 30 Min 01/01/18 9347 <Electronically signed by Loren Mendez > Date Loren Mendez cc: ANGELINA Dotson; Lorne Mendez; Williams Parekh MD * Signed Problem [...] she then later went to see her CATHODE MAKER, who placed her on steroids and oxycodone. [...] fistula Psychiatric History: No pertinent psych hx IMPORTER EXPORTER History: No pertinent IMPORTER EXPORTER history Smoking Status: Never smoker - *Family [...] IV - prior dialysis now off. Follows [facility]. NO NSAIDS. 6. T2DM - continue [...] 2 VIEWS Observed: 01/01/2018 Status: F Source: REALITOS 3:13 PM [facility] REPOSITORY [facility] Imaging Services [address] [place] [address] Femur Min 2 Views MR#: [id number] Acct: [id number] Name: ELIZABETH HO Rep #: [id number] : 1950 F 67 From: Sriram Vila MD PCP: Williams Parekh MD Status: REG ER Study: Femur Min 2 Views Date of Exam: 01/01/18 Exam# [id number] Ordering Dr: Brian Frey MD STUDY: X-RAY [...] CC: Williams Parekh MD; Brian Frey MD Leasing Consultant: Signed EXTREMITY LOWER Observed: 01/01/2018 Status: F Source: REALITOS WITHOUT CONTRA 3:13 PM [facility] REPOSITORY [facility] Imaging Services [address] [place] [address] Extremity Lower without Contra MR#: [id number] Acct: [id number] Name: ELIZABETH HO Rep #: [id number] : 1950 F 67 From: Niesha Lopez MD PCP: Williams Parekh MD Status: REG ER Study: Extremity Lower without Contra Date of Exam: 01/01/18 Exam# [id number] Ordering Dr: Brian Frey MD STUDY: CT [...] CC: Williams Parekh MD; Brian Frey MD Leasing Consultant: Signed PROGRESS Observed: 12/29/2017 Status: COMPLETED Source: [place] 3:24 PM [facility] REPOSITORY O ID: [id number] Author: Maria Esther Campbell LPN Service: (none) Author Type: (none) Type: Progress Notes Filed: 12/29/2017 3:38 PM Note Text: 67 year old female here for INACTIVATED INFLUENZA VACCINE. 9423-2804 Season Patient is identified by name and date of : Yes [] CONTRAINDICATIONS color enhanced section Age less than 6 months? No Allergy to eggs, chicken, chicken feathers, or chicken dander? No Allergy to thimerosal (a preservative) or formaldehyde? No History of severe reaction to any vaccine component or a previous dose of influenza vaccination? 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 Yes See immunization activity in [facility] for details of immunizations adminstered today. Patient [...] dose of influenza vaccination? 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 Yes See immunization activity in [facility] for details of immunizations adminstered today. Patient age: [age] year old For The 7108-2160 Flu Season 6-35 months old: Fluzone 0.25 [...] time. PROGRESS Observed: 12/29/2017 Status: COMPLETED Source: [place] 3:00 PM [facility] REPOSITORY O ID: [id number] Author: Ema Curry (Cns) Service: (none) Author [...] Kidney Disease) Stage 4, Gfr 15-29 Ml/Min ([facility]) Varicose Veins of Lower Extremities With Ulcer ([facility]) Vitamin D Deficiency Secondary Hyperparathyroidism ([facility]) Cad (Coronary Artery Disease), Elim Ira Coronary Artery Aortic Stenosis Mitral Stenosis On Home O2 Pvd (Peripheral Vascular Disease) ([facility]) Anemia Urinary Incontinence Implantable Cardioverter-Defibrillator (Icd) in Situ Dvt Prophylaxis Constipation Chf (Congestive Heart Failure), Nyha Class Iii (Hcc) Gout, Arthritis 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 She was seen in [facility] yesterday for this pain. Pain was [...] 05/15/2013 - Cellulitis of left leg 01/29/2010 [facility] ER 01/27/10 transferred to [facility] Dx: sepsis, afib, elevated INR - [...] kidney disease) stage 4, GFR 15-29 ml/min ([facility]) -On HD in 2009 for about 6-7 months, but has since improved to the point where she no longer requires it -stable Plan: - monitor renal function - avoid nephrotoxins - DM (diabetes mellitus) type II uncontrolled with renal manifestation Diabetes mellitus NIDDM - ESRD on hemodialysis ([facility]) Dr. Luo ([place]) - Failure to extubation 08/26/2013 Patient was [...] - Heart failure, systolic and diastolic, chronic ([facility]) 07/21/2013 NICM EF 45%, stage I diastolic dysfunction on most recent Echo 06/2013 On admission, clinically euvolemic Plan: - not currently on ACEi/ARB due to renal dysfunction - on carvedilol - continue spironolactone - hold Lasix 40mg PO BID until acute anemia addressed but will diurese with transfusions as needed - ICD in situ - Heart failure, systolic and diastolic, chronic ([facility]) 07/21/2013 NICM EF 45%, stage I diastolic [...] implant, and graft 09/01/2010 - Morbid obesity ([facility]) - Morbid obesity ([facility]) Nutrition consult - Muscular deconditioning 09/14/2013 - Non-ischemic cardiomyopathy ([facility]) Cardiomyopathy--[place] - Paroxysmal ventricular tachycardia ([facility]) 04/02/2005 H/o VT/TdP s/p ICD. S/p defibrillator [...] write COPAT. David placed. Will go to [facility] on Monday. - Torsades de pointes [...] and schedule follow up with endo at [place] - UTI (lower urinary tract infection) TISSUE TECHNICIAN not caused by insertion of quiroz 07/09/2013 07/08/2013 Urine culture suggests UTI s/p tx with Augmentin - Readmitted 07/21/2013UA/Urine culture checked on admission to the floor- UA negative-> urine culture >100,000 lactose positive gram - bacilli. This was not quiroz induced this was TISSUE TECHNICIAN. Will discuss with ID - monitor for [...] tolerating PO Vancomycin. on 01/07 pt in [facility] and had ld syndrome rxn to [facility] [...] (H) 4.3 - 5.6 % Final Comment: [place] [employer] guidelines indicate that patients with HgbA1c in the range 5.7-6.4% are at increased risk for development of diabetes, and intervention by lifestyle modification may be beneficial. HgbA1c greater or equal to 6.5% is considered diagnostic of diabetes. 09/03/2015 7.0 (H) 4.3 - 5.6 % Final Comment: [place] [employer] guidelines indicate that patients with HgbA1c in the range 5.7-6.4% are at increased risk for development of diabetes, and intervention by lifestyle modification may be beneficial. HgbA1c greater or equal to 6.5% is considered diagnostic of diabetes. 07/23/2015 6.2 (H) 4.3 - 5.6 % Final Comment: [place] [employer] guidelines indicate that patients with HgbA1c in the range 5.7-6.4% are at increased risk for development of diabetes, and intervention by lifestyle modification may be beneficial. HgbA1c greater or equal to 6.5% is considered diagnostic of diabetes. 04/08/2015 6.5 (H) 4.3 - 5.6 % Final Comment: [place] [employer] guidelines indicate that patients with [...] right hip pain. ER follow up 12/28/2017 [facility]. After my examination and review of data, [...] complication, with long-term current use of insulin ([facility]) - ICD9: 250.70, V58.67, ICD10: E11.59, Z79.4 [...] APRN.CNS CNOV Observed: 12/29/2017 Status: COMPLETED Source: [place] 3:00 PM [facility] REPOSITORY Office Visit (INTMWS) PAPAELIZABETH ([id number]) 1950 F Date Time Provider Department 12/29/17 3:00 PM EMA CURRY (PROPAGATION MANAGER) INTMWS During your visit today, we recorded [...] Kidney Disease) Stage 4, Gfr 15-29 Ml/Min ([facility]) Varicose Veins of Lower Extremities With Ulcer ([facility]) Vitamin D Deficiency Secondary Hyperparathyroidism ([facility]) Cad (Coronary Artery Disease), Elim Ira Coronary Artery Aortic Stenosis Mitral Stenosis On Home O2 Pvd (Peripheral Vascular Disease) ([facility]) Anemia Urinary Incontinence Implantable Cardioverter-Defibrillator (Icd) in Situ Dvt Prophylaxis Constipation Chf (Congestive Heart Failure), Nyha Class Iii ([facility]) Gout, Arthritis Cardiac Pacemaker in Situ Hypothyroidism Due to Medication Gait Instability Paf (Paroxysmal Atrial Fibrillation) ([facility]) Diabetes Mellitus ([facility]) Presents today for hip pain. She was seen in [facility] yesterday for this pain. Pain was [...] - Atrial fibrillation (HCC) - Atrial fibrillation ([facility]) 04/02/2005 Currently NSR Plan: - Supratherapeutic INR on presentation, holding Warfarin - holding heparin given GIB and risks>benefits - on carvedilol - ICD in place - Atrial fibrillation ([facility]) 04/02/2005 H/o pAF on coumadin and amiodarone [...] 05/15/2013 - Cellulitis of left leg 01/29/2010 [facility] ER 01/27/10 transferred to [facility] Dx: sepsis, afib, elevated INR - [...] kidney disease) stage 4, GFR 15-29 ml/min ([facility]) -On HD in 2009 for about 6-7 months, but has since improved to the point where she no longer requires it -stable Plan: - monitor renal function - avoid nephrotoxins - DM (diabetes mellitus) type II uncontrolled with renal manifestation Diabetes mellitus NIDDM - ESRD on hemodialysis ([facility]) Dr. Luo ([place]) - Failure to extubation 08/26/2013 Patient was [...] - Heart failure, systolic and diastolic, chronic ([facility]) 07/21/2013 NICM EF 45%, stage I diastolic dysfunction on most recent Echo 06/2013 On admission, clinically euvolemic Plan: - not currently on ACEi/ARB due to renal dysfunction - on carvedilol - continue spironolactone - hold Lasix 40mg PO BID until acute anemia addressed but will diurese with transfusions as needed - ICD in situ - Heart failure, systolic and diastolic, chronic ([facility]) 07/21/2013 NICM EF 45%, stage I diastolic [...] - Morbid obesity (HCC) - Morbid obesity ([facility]) Nutrition consult - Muscular deconditioning 09/14/2013 - [...] write COPAT. David placed. Will go to [facility] on Monday. - Torsades de pointes [...] and schedule follow up with endo at [place] - UTI (lower urinary tract infection) TISSUE TECHNICIAN not caused by insertion of quiroz 07/09/2013 07/08/2013 Urine culture suggests UTI s/p tx with Augmentin - Readmitted 07/21/2013UA/Urine culture checked on admission to the floor- UA negative-> urine culture >100,000 lactose positive gram - bacilli. This was not quiroz induced this was TISSUE TECHNICIAN. Will discuss with ID - monitor for [...] tolerating PO Vancomycin. on 01/07 pt in [facility] and had ld syndrome rxn to [facility]. MEDICATIONS traMADol (ULTRAM) 50 mg tablet Take 50 mg by mouth every 6 hours as needed. metOLAzone (ZAROXOLYN) 5 mg tablet Take 5mg Monday, Monday and Monday nystatin (MYCOSTATIN) powder Apply 1 application to affected area three times daily. blood sugar diagnostic (Vanilla BreezeTOUCH ULTRA TEST) test strip before meals and [...] (H) 4.3 - 5.6 % Final Comment: [place] [employer] guidelines indicate that patients with HgbA1c in the range 5.7-6.4% are at increased risk for development of diabetes, and intervention by lifestyle modification may be beneficial. HgbA1c greater or equal to 6.5% is considered diagnostic of diabetes. 09/03/2015 7.0 (H) 4.3 - 5.6 % Final Comment: [place] [employer] guidelines indicate that patients with HgbA1c in the range 5.7-6.4% are at increased risk for development of diabetes, and intervention by lifestyle modification may be beneficial. HgbA1c greater or equal to 6.5% is considered diagnostic of diabetes. 07/23/2015 6.2 (H) 4.3 - 5.6 % Final Comment: [place] [employer] guidelines indicate that patients with HgbA1c in the range 5.7-6.4% are at increased risk for development of diabetes, and intervention by lifestyle modification may be beneficial. HgbA1c greater or equal to 6.5% is considered diagnostic of diabetes. 04/08/2015 6.5 (H) 4.3 - 5.6 % Final Comment: [place] [employer] guidelines indicate that patients with [...] right hip pain. ER follow up 12/28/2017 [facility]. After my examination and review of data, [...] class 3, unspecified congestive heart failure type ([facility]) - ICD9: 428.0, ICD10: I50.9 4. CKD (chronic kidney disease) stage 4, GFR 15-29 ml/min ([facility]) - ICD9: 585.4, ICD10: N18.4 5. Type 2 diabetes mellitus with other circulatory complication, with long-term current use of insulin ([facility]) - ICD9: 250.70, V58.67, ICD10: E11.59, Z79.4 [...] and agreed with the plan. Ema Curry APRN.PROPAGATION MANAGER Ema Curry APRN.RICHI 12/29/2017 3:20 PM Signed [...] old female here for INACTIVATED INFLUENZA VACCINE. 7447-4557 Season Patient is identified by name and date of : Yes [] CONTRAINDICATIONS color enhanced section Age less than 6 months? No Allergy to eggs, chicken, chicken feathers, or chicken dander? No Allergy to thimerosal (a preservative) or formaldehyde? No History of severe reaction to any vaccine component or a previous dose of influenza vaccination? 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 Yes See immunization activity in [facility] for details of immunizations adminstered today. Patient [...] dose of influenza vaccination? 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 Yes See immunization activity in [facility] for details of immunizations adminstered today. Patient age: [age] year old For The 8874-3839 Flu Season 6-35 months old: Fluzone 0.25 [...] tolerating PO Vancomycin. on 01/07 pt in [facility] and had ld syndrome rxn to [facility]. Date Reviewed: 12/29/2017 Reviewed by: Maria Esther Campbell LPN - Fully Assessed Reason for Visit: Hospital F/U [57] Imm/Inj [58] Cmt: Flu Vaccine Reason For Visit History Recorded Primary Visit Diagnosis:Right hip pain [M25.551] Other Visit Diagnoses:Need for vaccination [Z23] Congestive heart failure, NYHA class 3, unspecified congestive heart failure type ([facility]) [I50.9] CKD (chronic kidney disease) stage 4, GFR 15-29 ml/min ([facility]) [N18.4] Type 2 diabetes mellitus with other circulatory complication, with long-term current use of insulin ([facility]) [E11.59, Z79.4] Normocytic anemia [D64.9] S/P TAVR (transcatheter aortic valve replacement) [Z95.2] Order(s):CONSULT TO ORTHOPAEDICS [9070] Order #: [id number]: 1 predniSONE (DELTASONE) 10 mg tabletTake 1 [...] 0 INFLUENZA SEASONAL HIGH DOSE AGE 65+ [[id number]] Order #: [id number] Prescriptions as of 12/29/2017 Sig: TRAMADOL 50 [...] [N25.81] INVALID FOR* CAD (coronary artery disease), [place] coronary *INVALID FOR* Priority: F More... More... [...] (ICD) in*INVALID FOR* More... More... DVT prophylaxis [TKS1687] INVALID FOR* More... Thrombocytopenia (HCC) [D69.6] INVALID [...] EMERGENCY DEPARTMENT Observed: 12/28/2017 Status: F Source: REALITOS SUMMARY 3:56 PM [facility] REPOSITORY [facility] Medical Records Department [address] [place] [place] [address] Emergency Department Summary 12/28/17 0932 MR#: [id number] Acct: [id number] Name: ELIZABETH HO Rep #: [id number] : 1950 67 From: Matt Sweet MD [...] hip pain This note was generated with [employer] dictation software. It may contain incorrect words, [...] your Primary Care Provider. Call [facility] ([phone]) or report to the closest Emergency Room. Call 911 if necessary. 12/28/17 7065 <Electronically signed by Matt Sweet MD> Date Matt Sweet MD Cosigner Signature (If Indicated): Date CC: Williams Parekh MD BASIC METABOLIC Collected: 12/28/2017 Status: F Source: NAM PROFILE ([facility]) 9:35 AM [facility] REPOSITORY TYPE CODE TESTS RESULT [...] GAP 8 Performed By: #### L500.2500 #### [facility] [address] [place], [place], [id number] CBC W/DIFF, AUTOMATED Collected: 12/28/2017 Status: F Source: NAM 9:35 AM [facility] REPOSITORY TYPE CODE TESTS RESULT [...] Lymph 1.28 Performed By: #### L100.0100 #### [facility] [address] [place], [place], [address] PROTHROMBIN TIME W/INR Collected: 12/28/2017 Status: F Source: REALITOS 9:35 AM [facility] REPOSITORY TYPE CODE TESTS RESULT OUT OF RANGE REFERENCE UNITS LAB L300.4150 11.7-14.9 SECONDS High PROTIME 25.4 LAB L300.4200 Normal INR 2.3 Performed By: #### L300.3900 #### [facility] [address] [place], [address] HIP, UNI W/ PELVIS Observed: 12/28/2017 Status: F Source: NAM 2-3 VIEWS 9:30 AM [facility] REPOSITORY [facility] Imaging Services [address] [place] [address] HIP, UNI W/ Pelvis 2-3 Views MR#: [id number] Acct: [id number] Name: ELIZABETH HO Rep #: [id number] : 1950 F 67 From: Asif Teresa MD PCP: Williams Parekh MD Status: REG ER Study: HIP, UNI W/ Pelvis 2-3 Views Date of Exam: 12/28/17 Exam# [id number] Ordering Dr: Matt Sweet MD STUDY: X-RAY [...] Asif Teresa MD at 10:35 EDT Tel [phone], Service support , CC: Williams Parekh MD; Matt Sweet MD Leasing Consultant: Signed PACEMAKER CHECK Observed: 12/26/2017 Status: F Source: NAM 5:30 PM [facility] REPOSITORY [facility] [address] [place] [address] Pacemaker Check Date of Service: 12/26/171641 MR#: [id number] Acct: [id number] Name: ELIZABETH HO Rep #: [id number] : 1950 From: Lela Bullock Age/Sex: 67/F Location: [facility] Status: Signed Billing Codes ICD Device Billing: ICD Dev Prog Eval, Dual 12/26/171643 <Electronically signed by Lela Bullock > Date Lela Bullock 12/26/171729<Electronically signed by Michael See MD> Cosigner Signature: Date (if applicable) Michael See MD CC: PROTHROMBIN TIME W/INR Collected: 12/22/2017 Status: F Source: NAM 10:06 AM [facility] REPOSITORY TYPE CODE TESTS RESULT OUT OF RANGE REFERENCE UNITS LAB L300.4150 11.7-14.9 SECONDS High PROTIME 28.7 LAB L300.4200 Normal INR 2.7 Performed By: #### L300.3900 #### [facility] [address] [place], [address] BASIC METABOLIC Collected: 12/22/2017 Status: F Source: NAM PROFILE (BMP) 10:06 AM [facility] REPOSITORY TYPE CODE TESTS RESULT [...] GAP 8 Performed By: #### L500.2500 #### [facility] [address] [place], [address] PROTHROMBIN TIME W/INR Collected: 12/04/2017 Status: F Source: NAM 8:37 AM [facility] REPOSITORY TYPE CODE TESTS RESULT OUT OF RANGE REFERENCE UNITS LAB L300.4150 11.7-14.9 SECONDS High PROTIME 26.0 LAB L300.4200 Normal INR 2.4 Performed By: #### L300.3900 #### [facility] [address] [place], [address] BASIC METABOLIC Collected: 12/04/2017 Status: F Source: NAM PROFILE (BMP) 8:36 AM [facility] REPOSITORY Order Comment: Comments: With [...] GAP 7 Performed By: #### L500.2500 #### [facility] [address] [place], [address] CARDIOLOGY VISIT Observed: 11/20/2017 Status: F Source: REALITOS REPORT 1:54 PM [facility] REPOSITORY [facility] [address] [place] [address] OFFICE VISIT Date of Service: 11/20/17 MR#: [id number] Acct: [id number] Name: ELIZABETH HO Rep #: [id number] : 1950 Provider: Michael See MD Age/Sex: 67/F Location: [facility] Status: Signed HPI HPI Details: ELIZABETH HO, is a 67 F who presents to the office today for outpatient cardiovascular follow-up. As you know she was hospitalized at [facility] in August of this year for concerns [...] .COMPLEX #60 tab 10/30/17 [Rx Confirmed 11/20/17] [facility] Medical History Aortic stenosis (Chronic) Paroxysmal [...] She did have a transthoracic echocardiogram performed [facility] on 07/10/2017. The results are as [...] have a diagnostic cardiac catheterization performed at [facility] on 03/04/2014. Per their report the left main coronary artery was normal, the LAD had diffuse mild luminal irregularities, the LCx was a large dominant vessel with 30- 40% stenosis, the RCA was a small nondominant vessel with minimal diffuse irregularities She does have an ICD in place. This is a Nix Hydra Energen IS-1/DF-1/ model #[id number] serial #[id number] dual-chamber ICD implanted on 08/14/2014 Assessment AND Plan 1. S/p TAVR (transcatheter aortic valve replacement), bioprosthetic Z95.3 26 mm Bond Sapein Bioprosthetic Aortic Valve Plan The patient does have a history of previous TAVR. She continues to follow locally and at the [facility]. Based upon a letter from her card boxer at the [facility] from 09/03/2015 it was recommended that she continue medical management and follow- up. He did not recommend any additional diagnostic studies at that time. The patient states she was asked to have a transthoracic echocardiogram prior to her next [facility] visit which would occur in [...] in the past by electrophysiology both in [facility] as well as at [facility]. She does have an underlying ICD [...] PROTIME W/INR Collected: 11/20/2017 Status: F Source: REALITOS FINGERSTICK 12:34 PM [facility] REPOSITORY TYPE CODE TESTS RESULT OUT OF REFERENCE UNITS RANGE LAB L9200.1001 11.9-14.4 SEC High PROTIME ISTAT 21.8 Result Comment: Reference Range 11.9 - 14.4 LAB L9200.2000 Normal INR ISTAT 1.90 Result Comment: Critical Value > 3.5 Performed By: #### L9200.0000 #### [facility] Point of Care [address] [place], [place] [address] [place] [address] EMERGENCY DEPARTMENT Observed: 11/14/2017 Status: F Source: REALITOS SUMMARY 3:40 PM [facility] REPOSITORY [facility] Medical Records Department [address] [place] [place] [address] Emergency Department Summary 11/14/17 1245 MR#: [id number] Acct: [id number] Name: ELIZABETH HO Rep #: [id number] : 1950 67 From: Vinay Valerio MD PCP: Williams Parekh MD Status: DEP ER - ER Visit Summary Date of Service: 11/14/17 Chief Complaint: Constipation History of Present Illness: The patient is a 67 F with no bowel movement for 2 days. The patient feels rectal discomfort like she needs to have a bowel movement, but is unable. She tried ekgb-rtv-aadxdbm remedies with no success. She has not tried an enema. Physical Examination: Jewel Bearing Driller exam showed a fecal impaction. Abdomen soft and nontender. Skin appears normal. No other pertinent findings. Test Results: None indicated Emergency Department Course and Treatment: Solange RN tube cleaner the exam. The patient had a digital disimpaction. She tolerated this with some discomfort but otherwise well. No bleeding or complications. Patient feels better afterwards and will be discharged. Treatment Plan: Continue mtth-ibl-rqmhcvh remedies at home. Stay hydrated. Increase fiber intake. Disposition: Discharged Impression: 1. Fecal impaction This note was generated with [employer] dictation software. It may contain incorrect words, [...] your Primary Care Provider. Call [facility] ([phone]) or report to the closest Emergency Room. Call 911 if necessary. 11/14/17 1540 <Electronically signed by Vinay Valerio MD> Date Vinay Valerio MD Cosigner Signature (If Indicated): Date CC: Williams Parekh MD DISCHARGE INSTRUCTION Observed: 11/14/2017 Status: F Source: NAM 3:40 PM [facility] REPOSITORY [facility] Medical Records Department [address] [place] [place] [address] Discharge Instruction 11/14/17 1248 MR#: [id number] Acct: [id number] Name: ELIZABETH HO Rep #: [id number] : 1950 67 From: Vinay Valerio MD PCP: Williams Parekh MD Status: DEP ER ED Disposition - Plan for ED Patient: Chief Complaint: Constipation Instructions: ED Constipation Referrals: Williams Parekh MD [Primary Care Provider] - What to do if you have Problems For any increased pain, shortness of breath, bleeding, nausea or vomiting, chest pain, or any unexpected problems, contact your Primary Care Provider. Call [facility] ([phone]) or report to the closest Emergency Room. Call 911 if necessary. 11/14/17 1540 <Electronically signed by Vinay Valerio MD> Date Vinay Valerio MD Cosigner Signature (If Indicated): Date CC: Williams Parekh MD PROTHROMBIN TIME W/INR Collected: 11/09/2017 Status: F Source: NAM 11:20 AM [facility] REPOSITORY TYPE CODE TESTS RESULT OUT OF RANGE REFERENCE UNITS LAB L300.4150 11.7-14.9 SECONDS High PROTIME 31.6 LAB L300.4200 Normal INR 3.0 Performed By: #### L300.3900 #### [facility] [place], [address] PROTIME W/INR Collected: 11/03/2017 Status: F Source: NAM FINGERSTICK 10:34 AM [facility] REPOSITORY TYPE CODE TESTS RESULT OUT OF REFERENCE UNITS RANGE LAB L9200.1001 11.9-14.4 SEC High PROTIME ISTAT 35.9 Result Comment: Reference Range 11.9 - 14.4 LAB L9200.2000 Normal INR ISTAT 3.20 Result Comment: Critical Value > 3.5 Performed By: #### L9200.0000 #### [facility] Point of Care [address] [place] [address] PROTIME W/INR Collected: 10/30/2017 Status: F Source: NAM FINGERSTICK 11:55 AM [facility] REPOSITORY TYPE CODE TESTS RESULT OUT OF REFERENCE UNITS RANGE LAB L9200.1001 11.9-14.4 SEC High PROTIME ISTAT 42.6 Result Comment: Reference Range 11.9 - 14.4 LAB L9200.2000 High alert INR ISTAT 3.80 Result Comment: Critical Value > 3.5 Performed By: #### L9200.0000 #### [facility] Point of Care [address] [place] [address] PROTHROMBIN TIME W/INR Collected: 10/30/2017 Status: F Source: NAM 11:55 AM [facility] REPOSITORY Order Comment: Result obtained [...] BY SAME. Performed By: #### L300.3900 #### [facility] [place], [address] PROTIME W/INR Collected: 10/23/2017 Status: F Source: NAM FINGERSTICK 7:55 AM [facility] REPOSITORY TYPE CODE TESTS RESULT OUT OF REFERENCE UNITS RANGE LAB L9200.1001 11.9-14.4 SEC High PROTIME ISTAT 38.9 Result Comment: Reference Range 11.9 - 14.4 LAB L9200.2000 Normal INR ISTAT 3.40 Result Comment: Critical Value > 3.5 Performed By: #### L9200.0000 #### [facility] Point of Care [address] [place] [address] OFFICE VISIT REPORT Observed: 10/17/2017 Status: F Source: NAM 8:08 AM [facility] [address] [place] [address] OFFICE VISIT Date of Service: 10/16/17 MR#: [id number] Acct: [id number] Patient: ELIZABETH HO Rep #: [id number] : 1950 Provider: LEXI Jenkins Age/Sex: 67/F Location: [facility] Status: Signed Intake Intake Visit Reasons: check [...] Status: F Source: NAM FINGERSTICK 9:50 AM [facility] REPOSITORY TYPE CODE TESTS RESULT OUT OF REFERENCE UNITS RANGE LAB L9200.1001 11.9-14.4 SEC High PROTIME ISTAT 20.1 Result Comment: Reference Range 11.9 - 14.4 LAB L9200.2000 Normal INR ISTAT 1.70 Result Comment: Critical Value > 3.5 Performed By: #### L9200.0000 #### [facility] Point of Care [address] [place] [address] OFFICE VISIT REPORT Observed: 10/11/2017 Status: F Source: NAM 3:43 PM [facility] [place] [address] OFFICE VISIT Date of Service: MR#: [id number] Acct: [id number] Patient: ELIZABETH HO Rep #: [id number] : 1950 Provider: Yani Rick Age/Sex: 67/F Location: [facility] Status: Signed Intake Intake Visit Reasons: Amb [...] Status: F Source: NAM FINGERSTICK 7:51 AM [facility] REPOSITORY TYPE CODE TESTS RESULT OUT OF REFERENCE UNITS RANGE LAB L9200.1001 11.9-14.4 SEC High PROTIME ISTAT 31.1 Result Comment: Reference Range 11.9 - 14.4 LAB L9200.2000 Normal INR ISTAT 2.70 Result Comment: Critical Value > 3.5 Performed By: #### L9200.0000 #### [facility] Point of Care [address] [place] [address] FREE T4 Collected: 10/03/2017 Status: F Source: HASTINGS 2:12 PM [facility] REPOSITORY TYPE CODE TESTS RESULT OUT OF RANGE REFERENCE UNITS LAB FT4 0.9-1.7 ng/dL Free T4 1.6 Performed By: #### FT4, CMP, RF, TSH, HBA1C #### [facility] [address] [place], [place] [address] COMP METABOLIC PANEL Collected: 10/03/2017 Status: F Source: [place]STINGS 2:12 PM [facility] REPOSITORY TYPE CODE TESTS RESULT OUT OF REFERENCE UNITS RANGE LAB TP 6.3-8.0 g/dL Protein, Total 6.8 LAB ALB 3.9-4.9 g/dL Low Albumin 3.8 LAB CA 8.5-10.2 mg/dL Calcium, Total 9.3 LAB TBIL 0.2-1.3 mg/dL Bilirubin, Total 0.6 LAB ALKP 32-117 U/L Alkaline Phosphatase 54 LAB AST 13-35 U/L AST 17 LAB GLU 74-99 mg/dL Glucose High 229 Result Comment: The [place] [employer] Association (ADA) provides guidance for cutoff [...] Standards of Medical Care in Diabetes 2016, [place] [employer]. Diabetes Care. 2016.39(Suppl 1). LAB [...] #### FT4, CMP, RF, TSH, HBA1C #### [facility] [address] [address] RHEUMATOID FACTOR Collected: 10/03/2017 Status: F Source: HASTINGS 2:12 PM [facility] REPOSITORY TYPE CODE TESTS RESULT OUT OF REFERENCE UNITS RANGE LAB RF <16 IU/mL Rheumatoid <10 Factor Performed By: #### FT4, CMP, RF, TSH, HBA1C #### [facility] [address] [address] TSH Collected: 10/03/2017 Status: F Source: [place]ST[place] 2:12 PM [facility] REPOSITORY TYPE CODE TESTS RESULT OUT OF RANGE REFERENCE UNITS LAB TSH 0.400-5.500 uU/mL TSH 2.280 Performed By: #### FT4, CMP, RF, TSH, HBA1C #### [facility] [address] [phone] HEMOGLOBIN A1C Collected: 10/03/2017 Status: F Source: [place] 2:12 PM [facility] REPOSITORY TYPE CODE TESTS RESULT OUT OF REFERENCE UNITS RANGE LAB HGBA1C 4.3-5.6 % High Hemoglobin A1c 6.7 LAB HBA0 mg/dL Est. Average Glucose 146 Result Comment: eAG: (Estimated average glucose) is a calculated value from HgbA1c and is automotive leasing sales representative of the average blood glucose level in the last 2-3 month period. Performed By: #### FT4, CMP, RF, TSH, HBA1C #### [facility] [address] [place], [place] [address] ALBUMIN/CREAT RATIO Collected: 10/03/2017 Status: F Source: [place] 2:12 PM [facility] REPOSITORY TYPE CODE TESTS RESULT OUT OF REFERENCE UNITS RANGE LAB UCRR 20-300 mg/dL 47.7 Creatinine,Ur ine,Ran LAB UALBR 0.0-23.0 mg/L <12.0 Albumin Urine Random LAB UALBCR 0-30 mg/g Not Albumin/Creat calculated Ratio Performed By: #### UACR #### [facility] [address] [place], [place] [address] CNOV Observed: 10/03/2017 Status: COMPLETED Source: [place]ST[place] 1:00 PM [facility] REPOSITORY Office Visit (INTMWS) ELIZABETH HO ([id number]) 1950 F Date Time Provider Department 10/03/17 1:00 PM RON MACIAS ([facility]) INTMWS During your visit today, we recorded the following information about you: Temperature Pulse Respiration Blood pressure 98.1 degrees 64/minute 16/minute 122/64 Weight 92.1 kg Ron Macias APRN.CNP 10/03/2017 3:58 PM Signed CC: No chief complaint on file. HPI Elizabeth Ho is a 67 year old female who presents today with ejnckc-hg-vwr for [facility] follow up from 09/17 to 09/20/17. Patient [...] need follow up labs- arranged for at [facility] - Anemia 05/15/2013 Chronic anemia [...] 05/15/2013 - Cellulitis of left leg 01/29/2010 [facility] ER 01/27/10 transferred to [facility] Dx: sepsis, afib, elevated INR - [...] kidney disease) stage 4, GFR 15-29 ml/min ([facility]) -On HD in 2009 for about 6-7 months, but has since improved to the point where she no longer requires it -stable Plan: - monitor renal function - avoid nephrotoxins - DM (diabetes mellitus) type II uncontrolled with renal manifestation Diabetes mellitus NIDDM - ESRD on hemodialysis ([facility]) Dr. Luo ([place]) - Failure to extubation 08/26/2013 Patient was [...] - Heart failure, systolic and diastolic, chronic ([facility]) 07/21/2013 NICM EF 45%, stage I diastolic [...] implant, and graft 09/01/2010 - Morbid obesity ([facility]) - Morbid obesity ([facility]) Nutrition consult - Muscular deconditioning 09/14/2013 - Non-ischemic cardiomyopathy ([facility]) Cardiomyopathy--[place] - Paroxysmal ventricular tachycardia ([facility]) 04/02/2005 H/o VT/TdP s/p ICD. S/p defibrillator [...] write COPAT. David placed. Will go to [facility] on Monday. - [place] [...] and schedule follow up with endo at [place] - UTI (lower urinary tract infection) TISSUE TECHNICIAN not caused by insertion of quiroz 07/09/2013 07/08/2013 Urine culture suggests UTI s/p tx with Augmentin - Readmitted 07/21/2013UA/Urine culture checked on admission to the floor- UA negative-> urine culture >100,000 lactose positive gram - bacilli. This was not quiroz induced this was TISSUE TECHNICIAN. Will discuss with ID - monitor for [...] (Sulfonamide Antibiotics); Vancomycin MEDICATIONS blood sugar diagnostic (CatchSquareUCH ULTRA TEST) test strip before meals and [...] ICD10: N18.4 - BMP completed today at [facility] 3. Hypothyroidism due to medication - ICD9: [...] tolerating PO Vancomycin. on 01/07 pt in [facility] and had ld syndrome rxn to [facility]. Date Reviewed: 10/03/2017 Reviewed by: Divya Ramirez Ma - Fully Assessed Reason for Visit: Recheck [92] Cmt: [facility] Hosp follow up CHF, pt states fatigue, not feeling good Reason For Visit History Recorded Primary Visit Diagnosis:Congestive heart failure, NYHA class 3, unspecified congestive heart failure type ([facility]) [I50.9] Other Visit Diagnoses:CKD (chronic kidney disease) stage 4, GFR 15-29 ml/min ([facility]) [N18.4] Hypothyroidism due to medication [E03.2] Type 2 diabetes mellitus with other circulatory complication, with long-term current use of insulin ([facility]) [E11.59, Z79.4] Arthralgia, unspecified joint [M25.50] Skin infection [L08.9] Fungal skin infection [B36.9] Order(s):metOLAzone (ZAROXOLYN) 5 mg tabletTake 5mg Monday, Monday and MondayDisp: Rfl: RHEUMATOID FACTOR BL [SQRF] Order #: [id number] FUTURE nystatin (MYCOSTATIN) powderApply 1 application to [...] [N25.81] INVALID FOR* CAD (coronary artery disease), [place] coronary *INVALID FOR* Priority: F More... More... [...] (ICD) in*INVALID FOR* More... More... DVT prophylaxis [HHI3748] INVALID FOR* More... Thrombocytopenia (HCC) [D69.6] INVALID [...] 10/03/17 PROGRESS Observed: 10/03/2017 Status: COMPLETED Source: [place] 12:51 PM [facility] REPOSITORY HNO ID: [id number] Author: Ron Macias Service: (none) Author Type: Nurse Practitioner Type: Progress Notes Filed: 10/03/2017 3:58 PM Note Text: CC: No chief complaint on file. RACHEL Ho is a 67 year old female who presents today with mshkna-ci-adz for [facility] follow up from 09/17 to 09/20/17. Patient [...] need follow up labs- arranged for at [facility] - Anemia 05/15/2013 Chronic anemia [...] 05/15/2013 - Cellulitis of left leg 01/29/2010 [facility] ER 01/27/10 transferred to [facility] Dx: sepsis, afib, elevated INR - [...] kidney disease) stage 4, GFR 15-29 ml/min ([facility]) -On HD in 2009 for about 6-7 months, but has since improved to the point where she no longer requires it -stable Plan: - monitor renal function - avoid nephrotoxins - DM (diabetes mellitus) type II uncontrolled with renal manifestation Diabetes mellitus NIDDM - ESRD on hemodialysis ([facility]) Dr. Luo ([place]) - Failure to extubation 08/26/2013 Patient was [...] - Heart failure, systolic and diastolic, chronic ([facility]) 07/21/2013 NICM EF 45%, stage I diastolic dysfunction on most recent Echo 06/2013 On admission, clinically euvolemic Plan: - not currently on ACEi/ARB due to renal dysfunction - on carvedilol - continue spironolactone - hold Lasix 40mg PO BID until acute anemia addressed but will diurese with transfusions as needed - ICD in situ - Heart failure, systolic and diastolic, chronic ([facility]) 07/21/2013 NICM EF 45%, stage I diastolic [...] - Morbid obesity (HCC) - Morbid obesity ([facility]) Nutrition consult - Muscular deconditioning 09/14/2013 - Non-ischemic cardiomyopathy ([facility]) Cardiomyopathy--[place] - Paroxysmal ventricular tachycardia ([facility]) 04/02/2005 H/o VT/TdP s/p ICD. S/p defibrillator [...] write COPAT. David placed. Will go to [facility] on Monday. - [place] [...] and schedule follow up with endo at [place] - UTI (lower urinary tract infection) TISSUE TECHNICIAN not caused by insertion of quiroz 07/09/2013 07/08/2013 Urine culture suggests UTI s/p tx with Augmentin - Readmitted 07/21/2013UA/Urine culture checked on admission to the floor- UA negative-> urine culture >100,000 lactose positive gram - bacilli. This was not quiroz induced this was TISSUE TECHNICIAN. Will discuss with ID - monitor for [...] (Sulfonamide Antibiotics); Vancomycin MEDICATIONS blood sugar diagnostic (CatchSquareUCH ULTRA TEST) test strip before meals and [...] ICD10: N18.4 - BMP completed today at [facility] 3. Hypothyroidism due to medication - ICD9: [...] skin folds of left foot Ron Macias APRN.PLANT CONTROL AIDE Prescription instructions reviewed with patient as applicable. Potential red flag symptoms discussed with the patient. Reviewed appropriate action plan to take if red flag symptoms occur. Patient agreeable to treatment plan. BASIC METABOLIC Collected: 10/03/2017 Status: F Source: NAM PROFILE (BMP) 12:23 PM [facility] REPOSITORY TYPE CODE TESTS RESULT [...] GAP 6 Performed By: #### L500.2500 #### [facility] [address] [place], [address] BASIC METABOLIC Collected: 09/29/2017 Status: F Source: REALITOS PROFILE (BMP) 11:13 AM [facility] REPOSITORY Order Comment: 48 TYPE [...] GAP 11 Performed By: #### L500.2500 #### [facility] [address] [place], [address] PROTHROMBIN TIME W/INR Collected: 09/29/2017 Status: F Source: REALITOS 11:11 AM [facility] REPOSITORY Order Comment: Comments: Standing order valid from: 09/21/17 to 09/21/18 Comments: Standing order valid from: 09/21/17 to 09/21/18 TYPE CODE TESTS RESULT OUT OF REFERENCE UNITS RANGE LAB L300.4150 11.7-14.9 SECONDS High PROTIME 40.5 LAB L300.4200 High alert INR 4.2 Result Comment: CRITICAL VALUE VERIFIED. CALLED TO [facility] 09/29/17 1331 Ramiro Rider. RESULTS READ BACK BY [facility] . Performed By: #### L300.3900 #### [facility] [address] [place], [address] PROGRESS Observed: 09/21/2017 Status: COMPLETED Source: HASTINGS 9:38 AM [facility] REPOSITORY HNO ID: [id number] Author: Rosa Cee Service: (none) Author Type: [...] 05/15/2013 - Cellulitis of left leg 01/29/2010 [facility] ER 01/27/10 transferred to [facility] Dx: sepsis, afib, elevated INR - [...] kidney disease) stage 4, GFR 15-29 ml/min ([facility]) -On HD in 2009 for about 6-7 months, but has since improved to the point where she no longer requires it -stable Plan: - monitor renal function - avoid nephrotoxins - DM (diabetes mellitus) type II uncontrolled with renal manifestation Diabetes mellitus NIDDM - ESRD on hemodialysis ([facility]) Dr. Luo ([place]) - Failure to extubation 08/26/2013 Patient was [...] - Heart failure, systolic and diastolic, chronic ([facility]) 07/21/2013 NICM EF 45%, stage I diastolic dysfunction on most recent Echo 06/2013 On admission, clinically euvolemic Plan: - not currently on ACEi/ARB due to renal dysfunction - on carvedilol - continue spironolactone - hold Lasix 40mg PO BID until acute anemia addressed but will diurese with transfusions as needed - ICD in situ - Heart failure, systolic and diastolic, chronic ([facility]) 07/21/2013 NICM EF 45%, stage I diastolic [...] implant, and graft 09/01/2010 - Morbid obesity ([facility]) - Morbid obesity ([facility]) Nutrition consult - Muscular deconditioning 09/14/2013 - Non-ischemic cardiomyopathy ([facility]) Cardiomyopathy--[place] - Paroxysmal ventricular tachycardia ([facility]) 04/02/2005 H/o VT/TdP s/p ICD. S/p defibrillator [...] write COPAT. David placed. Will go to [facility] on Monday. - Torsades de pointes [...] and schedule follow up with endo at [place] - UTI (lower urinary tract infection) TISSUE TECHNICIAN not caused by insertion of quiroz 07/09/2013 07/08/2013 Urine culture suggests UTI s/p tx with Augmentin - Readmitted 07/21/2013UA/Urine culture checked on admission to the floor- UA negative-> urine culture >100,000 lactose positive gram - bacilli. This was not quiroz induced this was TISSUE TECHNICIAN. Will discuss with ID - monitor for [...] (Sulfonamide Antibiotics); Vancomycin MEDICATIONS blood sugar diagnostic (Vanilla BreezeTOUCH ULTRA TEST) test strip before meals and [...] APRN.MONA CNOV Observed: 09/21/2017 Status: COMPLETED Source: HASTINGS 9:30 AM [facility] REPOSITORY Office Visit (WSTR) ELIZABETH HO ([id number]) 1950 F Date Time Provider Department 09/21/17 9:30 AM ROSA CEE (MONA) [facility] During your visit today, we recorded the following information about you: Temperature Pulse Blood pressure Weight 98.9 degrees 70/minute 130/66 92.1 kg Rosa Cee APRN.CNP 09/21/2017 10:31 AM Signed Subjective HPI HPI Elizabeth Ho is a [...] need follow up labs- arranged for at [facility] - Anemia 05/15/2013 Chronic anemia [...] 05/15/2013 - Cellulitis of left leg 01/29/2010 [facility] ER 01/27/10 transferred to [facility] Dx: sepsis, afib, elevated INR - [...] kidney disease) stage 4, GFR 15-29 ml/min ([facility]) -On HD in 2009 for about 6-7 months, but has since improved to the point where she no longer requires it -stable Plan: - monitor renal function - avoid nephrotoxins - DM (diabetes mellitus) type II uncontrolled with renal manifestation Diabetes mellitus NIDDM - ESRD on hemodialysis ([facility]) Dr. Luo ([place]) - Failure to extubation 08/26/2013 Patient was [...] - Heart failure, systolic and diastolic, chronic ([facility]) 07/21/2013 NICM EF 45%, stage I diastolic dysfunction on most recent Echo 06/2013 On admission, clinically euvolemic Plan: - not currently on ACEi/ARB due to renal dysfunction - on carvedilol - continue spironolactone - hold Lasix 40mg PO BID until acute anemia addressed but will diurese with transfusions as needed - ICD in situ - Heart failure, systolic and diastolic, chronic ([facility]) 07/21/2013 NICM EF 45%, stage I diastolic [...] - Morbid obesity (HCC) - Morbid obesity ([facility]) Nutrition consult - Muscular deconditioning 09/14/2013 - Non-ischemic cardiomyopathy ([facility]) Cardiomyopathy--[place] - Paroxysmal ventricular tachycardia ([facility]) 04/02/2005 H/o VT/TdP s/p ICD. S/p defibrillator [...] write COPAT. David placed. Will go to [facility] on Monday. - Torsades de pointes [...] and schedule follow up with endo at [place] - UTI (lower urinary tract infection) TISSUE TECHNICIAN not caused by insertion of quiroz 07/09/2013 07/08/2013 Urine culture suggests UTI s/p tx with Augmentin - Readmitted 07/21/2013UA/Urine culture checked on admission to the floor- UA negative-> urine culture >100,000 lactose positive gram - bacilli. This was not quiroz induced this was TISSUE TECHNICIAN. Will discuss with ID - monitor for [...] (Sulfonamide Antibiotics); Vancomycin MEDICATIONS blood sugar diagnostic (CatchSquareUCH ULTRA TEST) test strip before meals and [...] tolerating PO Vancomycin. on 01/07 pt in [facility] and had ld syndrome rxn to [facility] [...] [N25.81] INVALID FOR* CAD (coronary artery disease), [place] coronary *INVALID FOR* Priority: F More... More... [...] (ICD) in*INVALID FOR* More... More... DVT prophylaxis [CWJ9163] INVALID FOR* More... Thrombocytopenia (HCC) [D69.6] INVALID [...] DISCHARGE SUMMARY Observed: 09/20/2017 Status: F Source: REALITOS 4:10 PM [facility] REPOSITORY [facility] Medical Records Department [address] [place] [address] [place] [address] Discharge Summary 09/20/17 1604 MR#: [id number] Acct: [id number] Name: ELIZABETH HO Rep #: [id number] : 1950 67 From: Jose Castillo MD PCP: Williams Parekh MD Status: ADM IN Y Location: [place] [address] Discharge Date and Diagnosis - Problem List [...] clinically compensated. She was also seen by card boxer who recommended an increase in her metolazone [...] applicable Code Visit Inpatient E AND M: 37703 Disch Hosp 09/20/17 1610 <Electronically signed by Jose Castillo MD> Date Jose Castillo MD Cosigner Signature (if applicable): Date CC: Jose Castillo MD; Williams Parekh MD Signed DISCHARGE INSTRUCTION Observed: 09/20/2017 Status: F Source: REALITOS 4:04 PM [facility] REPOSITORY [facility] Medical Records Department [address] [place] [address] Instructions for Home/Discharge Instructions 09/20/17 1603 MR#: [id number] Acct: [id number] Name: ELIZABETH HO Bright Rep #: [id number] : 1950 67 From: Jose Castillo MD [...] PO MOWEFR #12 tab Primary Care Physician: Williasm Parekh MD [Primary Care Provider] - In 1 Week Proposed Discharge Date: 09/20/17 09/20/17 9352 <Electronically signed by Jose Castillo MD> Date Jose Castillo MD CC: Williams Parekh MD; Michael See MD 12 LEAD ELECTROCARDIOGRAM Observed: 09/20/2017 Status: F Source: NAM 2:40 PM [facility] REPOSITORY [facility] Cardiovascular Services [address] [address] 12 Lead EKG 09/17/17 0930 MR#: [id number] Acct: [id number] Name: ELIZABETH HO Rep #: [id number] : 1950 67 From: Michael See MD Attending Dr: Anna CUELLAR,Jose Status: ADM IN Ordering Dr: Douglas Li MD Date: 09/17/17 Location: [facility] Sex: F C Admitted: 09/17/17 Test [...] Abnormal ECG Confirmed by ESA CUELLAR, MICHAEL ([id number]), proposal editor CAT CONKLIN ([id number]) on 09/20/2017 2:40:32 PM Referred By: JEN Confirmed By:MICHAEL SEE MD 09/20/17 1440 Date Michael See MD CC: DOUGLAS LI MD; Jose Castillo MD; Williams Parekh MD Signed PROTIME W/INR Collected: 09/20/2017 Status: F Source: NAM FINGERSTICK 2:25 PM [facility] REPOSITORY TYPE CODE TESTS RESULT OUT OF REFERENCE UNITS RANGE LAB L9200.1001 11.9-14.4 SEC High PROTIME ISTAT 22.8 Result Comment: Reference Range 11.9 - 14.4 LAB L9200.2000 Normal INR ISTAT 2.00 Result Comment: Critical Value > 3.5 Performed By: #### L9200.0000 #### [facility] Point of Care [address] [place], [place] [address] BASIC METABOLIC Collected: 09/20/2017 Status: F Source: NAM PROFILE (BMP) 12:35 PM [facility] REPOSITORY Order Comment: VERY HARD [...] GAP 8 Performed By: #### L500.2500 #### [facility] [address] [place], [place], [address] BEDSIDE GLUCOSE Collected: 09/20/2017 Status: F Source: NAM 11:50 AM [facility] REPOSITORY TYPE CODE TESTS RESULT OUT OF REFERENCE UNITS RANGE LAB L501.080 70-110 mg/dL High BEDSIDE GLU 238 Result Comment: MANAGEMENT OF PATIENT CARE PER NURSING PROTOCOL Performed By: #### L501.080 #### [facility] Point of Care [address] [place] [address] BEDSIDE GLUCOSE Collected: 09/20/2017 Status: F Source: NAM 6:54 AM [facility] REPOSITORY TYPE CODE TESTS RESULT OUT OF RANGE REFERENCE UNITS LAB L501.080 70-110 mg/dL Normal BEDSIDE GLU 105 Result Comment: MANAGEMENT OF PATIENT CARE PER NURSING PROTOCOL Performed By: #### L501.080 #### [facility] Point of Care [address] [place] [address] BEDSIDE GLUCOSE Collected: 09/19/2017 Status: F Source: NAM 10:00 PM [facility] REPOSITORY TYPE CODE TESTS RESULT OUT OF RANGE REFERENCE UNITS LAB L501.080 70-110 mg/dL Normal BEDSIDE GLU 85 Result Comment: MANAGEMENT OF PATIENT CARE PER NURSING PROTOCOL Performed By: #### L501.080 #### [facility] Point of Care [address] [place] [address] BEDSIDE GLUCOSE Collected: 09/19/2017 Status: F Source: NAM 4:37 PM [facility] REPOSITORY TYPE CODE TESTS RESULT OUT OF REFERENCE UNITS RANGE LAB L501.080 70-110 mg/dL High BEDSIDE GLU 167 Result Comment: MANAGEMENT OF PATIENT CARE PER NURSING PROTOCOL Performed By: #### L501.080 #### [facility] Point of Care [address] [place] [address] BEDSIDE GLUCOSE Collected: 09/19/2017 Status: F Source: NAM 11:10 AM [facility] REPOSITORY TYPE CODE TESTS RESULT OUT OF REFERENCE UNITS RANGE LAB L501.080 70-110 mg/dL High BEDSIDE GLU 192 Result Comment: MANAGEMENT OF PATIENT CARE PER NURSING PROTOCOL Performed By: #### L501.080 #### [facility] Point of Care [address] [place] [address] BEDSIDE GLUCOSE Collected: 09/19/2017 Status: F Source: NAM 6:56 AM [facility] REPOSITORY TYPE CODE TESTS RESULT OUT OF REFERENCE UNITS RANGE LAB L501.080 70-110 mg/dL High BEDSIDE GLU 173 Result Comment: MANAGEMENT OF PATIENT CARE PER NURSING PROTOCOL Performed By: #### L501.080 #### [facility] Point of Care [address] [place], [place] [address] PROTHROMBIN TIME W/INR Collected: 09/19/2017 Status: F Source: NAM 6:25 AM [facility] REPOSITORY TYPE CODE TESTS RESULT OUT OF RANGE REFERENCE UNITS LAB L300.4150 11.7-14.9 SECONDS High PROTIME 31.7 LAB L300.4200 Normal INR 3.0 Performed By: #### L300.3900 #### [facility] [address] [place], [address] BASIC METABOLIC Collected: 09/19/2017 Status: F Source: NAM PROFILE (BMP) 6:25 AM [facility] REPOSITORY TYPE CODE TESTS RESULT [...] GAP 9 Performed By: #### L500.2500 #### [facility] [address] [place], [address] BEDSIDE GLUCOSE Collected: 09/18/2017 Status: F Source: NAM 10:34 PM [facility] REPOSITORY TYPE CODE TESTS RESULT OUT OF REFERENCE UNITS RANGE LAB L501.080 70-110 mg/dL High BEDSIDE GLU 167 Result Comment: MANAGEMENT OF PATIENT CARE PER NURSING PROTOCOL Performed By: #### L501.080 #### [facility] Point of Care [address] [place] [address] BEDSIDE GLUCOSE Collected: 09/18/2017 Status: F Source: NAM 4:29 PM [facility] REPOSITORY TYPE CODE TESTS RESULT OUT OF REFERENCE UNITS RANGE LAB L501.080 70-110 mg/dL High BEDSIDE GLU 250 Result Comment: MANAGEMENT OF PATIENT CARE PER NURSING PROTOCOL Performed By: #### L501.080 #### [facility] Point of Care [address] [place] [address] BEDSIDE GLUCOSE Collected: 09/18/2017 Status: F Source: NAM 11:26 AM [facility] REPOSITORY TYPE CODE TESTS RESULT OUT OF REFERENCE UNITS RANGE LAB L501.080 70-110 mg/dL High BEDSIDE GLU 235 Result Comment: MANAGEMENT OF PATIENT CARE PER NURSING PROTOCOL Performed By: #### L501.080 #### [facility] Point of Care [address] [place] [address] BEDSIDE GLUCOSE Collected: 09/18/2017 Status: F Source: NAM 8:56 AM [facility] REPOSITORY TYPE CODE TESTS RESULT OUT OF REFERENCE UNITS RANGE LAB L501.080 70-110 mg/dL High BEDSIDE GLU 146 Result Comment: MANAGEMENT OF PATIENT CARE PER NURSING PROTOCOL Performed By: #### L501.080 #### [facility] Point of Care [address] [place] [address] CBC-COMPLETE BLOOD CNT Collected: 09/18/2017 Status: F Source: NAM NO DIFF 6:52 AM [facility] REPOSITORY TYPE CODE TESTS RESULT [...] MPV 10.7 Performed By: #### L100.0500 #### [facility] [address] [place], [place], [address] PROTHROMBIN TIME W/INR Collected: 09/18/2017 Status: F Source: REALITOS 6:52 AM [facility] REPOSITORY Order Comment: CRITICAL VALUE VERIFIED. CALLED TO [facility] 09/18/17 0731 Rayne Nicole. RESULTS READ BACK BY SARAH . TYPE CODE TESTS RESULT OUT OF REFERENCE UNITS RANGE LAB L300.4150 11.7-14.9 SECONDS High PROTIME 39.4 LAB L300.4200 High alert INR 4.0 Performed By: #### L300.3900 #### [facility] [address] [place], [address] BASIC METABOLIC Collected: 09/18/2017 Status: F Source: REALITOS PROFILE (BMP) 6:52 AM [facility] REPOSITORY TYPE CODE TESTS RESULT [...] 9 Performed By: #### L500.2500, L500.4100 #### [facility] [address] [place], [address] LIPID PROFILE Collected: 09/18/2017 Status: F Source: REALITOS 6:52 AM [facility] REPOSITORY TYPE CODE TESTS RESULT [...] 15 Performed By: #### L500.2500, L500.4100 #### [facility] [address] [place], [address] BEDSIDE GLUCOSE Collected: 09/18/2017 Status: F Source: NAM 6:41 AM [facility] REPOSITORY TYPE CODE TESTS RESULT OUT OF REFERENCE UNITS RANGE LAB L501.080 70-110 mg/dL High BEDSIDE GLU 112 Result Comment: MANAGEMENT OF PATIENT CARE PER NURSING PROTOCOL Performed By: #### L501.080 #### [facility] Point of Care [address] [place] [address] TROPONIN-I Collected: 09/17/2017 Status: F Source: NAM 11:00 PM [facility] REPOSITORY Order Comment: 'TROP' Serial specimen #1, #2 or #3: 3 TYPE CODE TESTS RESULT OUT OF RANGE REFERENCE UNITS LAB L501.4010 <0.045 ng/mL Normal < 0.015 TROPONIN-I Result Comment: TROPONIN-I EXPECTED VALUES <0.045 Negative 0.045 - 0.590 Consistent with Cardiac Damage > OR = 0.600 Critical Value Not every elevated troponin is indicative of DC. These values should be used with clinical judgement in examining the patient's clinical picture for diagnosis. To establish a diagnosis of DC versus myocardial injury, there must be a demonstrated rise and/or fall in the troponin values, in addition to ischemic symptoms, EKG changes, new regional wall motion abnormality, and/or angiographical evidence. PLEASE NOTE: REFERENCE RANGES EDITED 17 Performed By: #### L501.4010 #### [facility] [address] [place], [address] BEDSIDE GLUCOSE Collected: 09/17/2017 Status: F Source: NAM 10:11 PM [facility] REPOSITORY TYPE CODE TESTS RESULT OUT OF REFERENCE UNITS RANGE LAB L501.080 70-110 mg/dL High BEDSIDE GLU 136 Result Comment: MANAGEMENT OF PATIENT CARE PER NURSING PROTOCOL Performed By: #### L501.080 #### [facility] Point of Care [address] [place] [address] CONSULTATION Observed: 09/17/2017 Status: F Source: NAM 5:00 PM [facility] REPOSITORY [facility] Medical Records Department [address] [place] [address] Consultation 09/17/17 1641 MR#: [id number] Acct: [id number] Name: ELIZABETH HO Rep #: [id number] : 1950 67 From: Michael See MD PCP: Williams Parekh MD Status: ADM IN Location: [place] [address] Problem List (1) CHF exacerbation Status: Acute [...] Status: Chronic Qualifiers: Coronary Disease-Associated Artery/Lesion type: [place] artery (8) ICD (implantable cardioverter-defibrillator) in place [...] she was recently evaluated by her [facility] card boxer. She states that he adjusted her diuretic [...] Ventricular flutter (Chronic) Rheumatic tricuspid insufficiency (Chronic) senior care (current) use of anticoagulants (Chronic) ICD (implantable [...] ICD Psychiatric History: No pertinent psych hx IMPORTER EXPORTER History: No pertinent IMPORTER EXPORTER history - *Family History Maternal Family History: [...] Sinus rhythm with PACs and PVCs ICD: Nix Hydra: Energen: Model number: [id number]: Serial number: [id number]: Date implanted: 08/14/2014: Dual-chamber ICD CXR: As [...] was functioning appropriately. She recently had her [facility] follow-up visit. There were no additional recommendations made for further evaluation or care of the aortic valve other than continued medical management and [place] [employer] antibiotic prophylaxis. 5. Mitral valve disorder with mitral valve stenosis/insufficiency This was reassessed per the patient at the [facility] Main campus. She states she [...] was discussed with the patient and the [facility] emergency department staff. This note was generated with Postcronation software. It may contain incorrect words, spelling, and punctuation that were not noted in checking the note before signing. 09/17/17 1700 <Electronically signed by Michael See MD> Date Michael See MD Cosigner Signature (if applicable): Date CC: Williams Parekh MD; Michael See MD Signed BEDSIDE GLUCOSE Collected: 09/17/2017 Status: F Source: REALITOS 4:47 PM [facility] REPOSITORY TYPE CODE TESTS RESULT OUT OF REFERENCE UNITS RANGE LAB L501.080 70-110 mg/dL High BEDSIDE GLU 287 Result Comment: MANAGEMENT OF PATIENT CARE PER NURSING PROTOCOL Performed By: #### L501.080 #### [facility] Point of Care [address] [place], [place] [address] TROPONIN-I Collected: 09/17/2017 Status: F Source: REALITOS 4:47 [facility] REPOSITORY Order Comment: 'TROP' Serial specimen #1, #2 or #3: 1 TYPE CODE TESTS RESULT OUT OF RANGE REFERENCE UNITS LAB L501.4010 <0.045 ng/mL Normal < 0.015 TROPONIN-I Result Comment: TROPONIN-I EXPECTED VALUES <0.045 Negative 0.045 - 0.590 Consistent with Cardiac Damage > OR = 0.600 Critical Value Not every elevated troponin is indicative of DC. These values should be used with clinical judgement in examining the patient's clinical picture for diagnosis. To establish a diagnosis of DC versus myocardial injury, there must be a demonstrated rise and/or fall in the troponin values, in addition to ischemic symptoms, EKG changes, new regional wall motion abnormality, and/or angiographical evidence. PLEASE NOTE: REFERENCE RANGES EDITED 17 Performed By: #### L501.4010, L501.5200, L501.9520 #### [facility] [address] [place], [place], [address] MAGNESIUM Collected: 09/17/2017 Status: F Source: REALITOS 4:47 PM [facility] REPOSITORY Order Comment: 'TROP' Serial specimen #1, #2 or #3: 1 TYPE CODE TESTS RESULT OUT OF RANGE REFERENCE UNITS LAB L501.5200 1.6-2.6 mg/dL Normal MG 2.2 Performed By: #### L501.4010, L501.5200, L501.9520 #### [facility] [address] [place], [address] THYROID STIM HORMONE Collected: 09/17/2017 Status: F Source: NAM (TSH) 4:47 PM [facility] REPOSITORY Order Comment: 'TROP' Serial specimen #1, #2 or #3: 1 TYPE CODE TESTS RESULT OUT OF RANGE REFERENCE UNITS LAB L501.9520 0.358-3.74 uIU/mL Normal TSH 1.04 Performed By: #### L501.4010, L501.5200, L501.9520 #### [facility] [address] [place], [address] PROTHROMBIN TIME W/INR Collected: 09/17/2017 Status: F Source: REALITOS 4:47 PM [facility] REPOSITORY TYPE CODE TESTS RESULT OUT OF REFERENCE UNITS RANGE LAB L300.4150 11.7-14.9 SECONDS High PROTIME 38.1 LAB L300.4200 High alert INR 3.8 Result Comment: CRITICAL VALUE VERIFIED. CALLED TO VIOLETA GARCIA 09/17/17 1752 Sandra Israel. RESULTS READ BACK BY SAME. Performed By: #### L300.3900 #### [facility] [address] [place], [address] HISTORY AND PHYSICAL Observed: 09/17/2017 Status: F Source: NAM EXAM 4:13 PM [facility] REPOSITORY [facility] Medical Records Department [address] [place] [address] History and Physical 09/17/17 1455 MR#: [id number] Acct: [id number] Name: ELIZABETH HO Rep #: [id number] : 1950 67 From: Cyndie GREEN PCP: Williams Parekh MD Status: ADM IN Y Location: [place] [address] ADDENDUM by Loren Mendez on 09/17/17 at [...] LE Lymphedema/PVD, Obesity who presents to the [facility] ED on 09/17/17 with history of increased [...] LE Lymphedema/PVD, Obesity who presents to the [facility] ED on 09/17/17 with history of increased [...] w/ LW in place and 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 Advanced Care Planning Face to Face Time: 20 minutes. 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 6. Type 2 diabetes eefvdmbu-Hbhe-Gkkcz before meals at bedtime with sliding scale [...] Loren Mendez CC: NORMA Asif; Loren Mendez; Williams Parekh MD Signed EMERGENCY DEPARTMENT Observed: 09/17/2017 Status: F Source: REALITOS SUMMARY 3:29 PM [facility] REPOSITORY [facility] Medical Records Department [address] [place] [address] Emergency Department Summary 09/17/17 1010 MR#: [id number] Acct: [id number] Name: ELIZABETH HO Bright Rep #: [id number] : 1950 67 From: Douglas Li MD [...] a week recently from her doctor in [place]. I discussed with Dr. See, who agrees that medically, inpatient or outpatient may be reasonable. He will evaluate her if admitted. Will discuss with hospitalist. ED Disposition - Plan for ED Patient: Disposition: Acute Care Hospital [facility] Chief Complaint: Chest Pain Diagnosis: CHF exacerbation, JAYESH (acute kidney injury) What to do if you have Problems For any increased pain, shortness of breath, bleeding, nausea or vomiting, chest pain, or any unexpected problems, contact your Primary Care Provider. Call [facility] ([phone]) or report to the closest Emergency Room. Call 911 if necessary. 09/17/17 1529 <Electronically signed by Douglas Li MD> Date Douglas Li MD Cosigner Signature (If Indicated): Date CC: Williams Parekh MD CBC W/DIFF, AUTOMATED Collected: 09/17/2017 Status: F Source: REALITOS 9:50 AM [facility] REPOSITORY TYPE CODE TESTS RESULT [...] Lymph 0.29 Performed By: #### L100.0100 #### [facility] [address] [place], [address] CHEST 1 VIEW Observed: 09/17/2017 Status: F Source: REALITOS (PORTABLE) 9:50 AM [facility] REPOSITORY [facility] Imaging Services [address] [place] [address] Chest 1 View (Portable) MR#: [id number] Acct: [id number] Name: ELIZABETH HO Rep #: [id number] : 1950 F 67 From: Abe Alamo MD PCP: Williams Parekh MD Status: REG ER Study: Chest 1 View (Portable) Date of Exam: 09/17/17 Exam# [id number] Ordering Dr: Douglas Li MD STUDY: X-RAY [...] CC: DOUGLAS LI MD; Williams Parekh MD Leasing Consultant: Signed BASIC METABOLIC Collected: 09/17/2017 Status: F Source: NAM PROFILE (BMP) 9:50 AM [facility] REPOSITORY TYPE CODE TESTS RESULT [...] 7 Performed By: #### L500.2500, L501.4010 #### [facility] [address] [place], [address] TROPONIN-I Collected: 09/17/2017 Status: F Source: NAM 9:50 AM [facility] REPOSITORY TYPE CODE TESTS RESULT OUT OF RANGE REFERENCE UNITS LAB L501.4010 <0.045 ng/mL Normal < 0.015 TROPONIN-I Result Comment: TROPONIN-I EXPECTED VALUES <0.045 Negative 0.045 - 0.590 Consistent with Cardiac Damage > OR = 0.600 Critical Value Not every elevated troponin is indicative of DC. These values should be used with clinical judgement in examining the patient's clinical picture for diagnosis. To establish a diagnosis of DC versus myocardial injury, there must be a demonstrated rise and/or fall in the troponin values, in addition to ischemic symptoms, EKG changes, new regional wall motion abnormality, and/or angiographical evidence. PLEASE NOTE: REFERENCE RANGES EDITED 17 Performed By: #### L500.2500, L501.4010 #### [facility] [address] [place], [address] BNP,B-TYPE NATRIURETIC Collected: 09/17/2017 Status: F Source: REALITOS PEPTIDE 9:50 AM [facility] REPOSITORY TYPE CODE TESTS RESULT OUT OF RANGE REFERENCE UNITS LAB L503.6620 0-100 pg/mL High B-TYPE 203.7 LILY PEP Performed By: #### L503.6620 #### [facility] [address] [place], [address] PROGRESS Observed: 09/13/2017 Status: COMPLETED Source: [place] 6:03 PM [facility] REPOSITORY HNO ID: [id number] Author: Ingris George MD Service: (none) Author Type: Physician Type: Progress Notes Filed: 09/14/2017 3:33 PM Note Text: [facility] Department of Cardiovascular Medicine SECTION OF INTERVENTIONAL CARDIOLOGY OUTPATIENT VISIT DATE September 13, 2017 OUTPATIENT VISIT TYPE ESTABLISHED PRIMARY CARE PHYSICIAN: Williams Parekh MD [address] [place] [address] CHIEF COMPLAINT: Patient presents with: CARD Follow [...] - ICD in place - Atrial fibrillation ([facility]) 04/02/2005 H/o pAF on coumadin and amiodarone [...] 05/15/2013 - Cellulitis of left leg 01/29/2010 [facility] ER 01/27/10 transferred to [facility] Dx: sepsis, afib, elevated INR - [...] kidney disease) stage 4, GFR 15-29 ml/min ([facility]) -On HD in 2009 for about 6-7 months, but has since improved to the point where she no longer requires it -stable Plan: - monitor renal function - avoid nephrotoxins - DM (diabetes mellitus) type II uncontrolled with renal manifestation Diabetes mellitus NIDDM - ESRD on hemodialysis ([facility]) Dr. Lou ([place]) - Failure to extubation 08/26/2013 Patient was [...] - Heart failure, systolic and diastolic, chronic ([facility]) 07/21/2013 NICM EF 45%, stage I diastolic dysfunction on most recent Echo 06/2013 On admission, clinically euvolemic Plan: - not currently on ACEi/ARB due to renal dysfunction - on carvedilol - continue spironolactone - hold Lasix 40mg PO BID until acute anemia addressed but will diurese with transfusions as needed - ICD in situ - Heart failure, systolic and diastolic, chronic ([facility]) 07/21/2013 NICM EF 45%, stage I diastolic [...] - Morbid obesity (HCC) - Morbid obesity ([facility]) Nutrition consult - Muscular deconditioning 09/14/2013 - [...] valvular malfunction. Cont ASA/plavix Echo EF 45%, Bond-Tsephanie prosthetic aortic valve (size #26). The peak [...] write COPAT. David placed. Will go to [facility] on Monday. - [place] point[place] [...] and schedule follow up with endo at [facility] - UTI (lower urinary tract infection) TISSUE TECHNICIAN not caused by insertion of quiroz 07/09/2013 07/08/2013 Urine culture suggests UTI s/p tx with Augmentin - Readmitted 07/21/2013UA/Urine culture checked on admission to the floor- UA negative-> urine culture >100,000 lactose positive gram - bacilli. This was not quiroz induced this was TISSUE TECHNICIAN. Will discuss with ID - monitor for [...] tolerating PO Vancomycin. on 01/07 pt in [facility] and had ld syndrome rxn to Vanc IV. MEDICATIONS: blood sugar diagnostic (CatchSquareUCH ULTRA TEST) test strip before meals and [...] reviewed an echocardiogram performed by her primary card boxer in June that demonstrates a normal ejection [...] have her echocardiogram either with her primary card boxer or with me as long as she gets one yearly. Addendum Take Metolazone 3X/week for the next 2 weeks then go back to 2X/week PROTHROMBIN TIME W/INR Collected: 09/11/2017 Status: F Source: NAM 10:10 AM [facility] REPOSITORY TYPE CODE TESTS RESULT OUT OF RANGE REFERENCE UNITS LAB L300.4150 11.7-14.9 SECONDS High PROTIME 29.1 LAB L300.4200 Normal INR 2.7 Performed By: #### L300.3900 #### [facility] [address] [place], [address] BASIC METABOLIC PANL Collected: 09/07/2017 Status: F Source: [place] 2:55 PM [facility] REPOSITORY TYPE CODE TESTS RESULT OUT OF REFERENCE UNITS RANGE LAB GLU 74-99 mg/dL Glucose 89 Result Comment: The [place] [employer] (ADA) provides guidance for cutoff [...] Standards of Medical Care in Diabetes 2016, [place] [employer]. Diabetes Care. 2016.39(Suppl 1). LAB [...] GFR. Performed By: #### MARIO NTBNP #### [facility] [address] [place], [place] [address] NT PRO BNP Collected: 09/07/2017 Status: F Source: [place] 2:55 PM [facility] REPOSITORY TYPE CODE TESTS RESULT OUT OF REFERENCE UNITS RANGE LAB PBNP <125 pg/mL High PRO B Natr 2697 Peptide Performed By: #### BMP, NTBNP #### [facility] [address] [place], [place] [address] CNOV Observed: 09/07/2017 Status: COMPLETED Source: [place] 1:15 PM [facility] REPOSITORY Office Visit (CATHMN) ELIZABETH HO ([id number]) 1950 F Date Time Provider Department 09/07/17 1:15 PM INGRIS GEORGE During your visit today, we recorded the following information about you: Pulse Respiration Blood pressure Weight 62/minute 14/minute 131/61 93.4 kg Height 1.676 m Ingris George MD, MD 09/14/2017 3:33 PM Signed [facility] Department of Cardiovascular Medicine SECTION OF INTERVENTIONAL CARDIOLOGY OUTPATIENT VISIT DATE September 13, 2017 OUTPATIENT VISIT TYPE ESTABLISHED PRIMARY CARE PHYSICIAN: Williams Parekh MD [address] [place] [address] CHIEF COMPLAINT: Patient presents with: CARD Follow [...] 05/15/2013 - Cellulitis of left leg 01/29/2010 [facility] ER 01/27/10 transferred to [facility] Dx: sepsis, afib, elevated INR - [...] kidney disease) stage 4, GFR 15-29 ml/min ([facility]) -On HD in 2009 for about 6-7 months, but has since improved to the point where she no longer requires it -stable Plan: - monitor renal function - avoid nephrotoxins - DM (diabetes mellitus) type II uncontrolled with renal manifestation Diabetes mellitus NIDDM - ESRD on hemodialysis ([facility]) Dr. Luo ([place]) - Failure to extubation 08/26/2013 Patient was [...] - Heart failure, systolic and diastolic, chronic ([facility]) 07/21/2013 NICM EF 45%, stage I diastolic [...] implant, and graft 09/01/2010 - Morbid obesity ([facility]) - Morbid obesity ([facility]) Nutrition consult - Muscular deconditioning 09/14/2013 - Non-ischemic cardiomyopathy (HCC) Cardiomyopathy--[place] - Paroxysmal ventricular tachycardia ([facility]) 04/02/2005 H/o VT/TdP s/p ICD. S/p defibrillator [...] write COPAT. David placed. Will go to [facility] on Monday. - [place] pointes [...] and schedule follow up with endo at [facility] [place] - UTI (lower urinary tract infection) TISSUE TECHNICIAN not caused by insertion of quiroz 07/09/2013 07/08/2013 Urine culture suggests UTI s/p tx with Augmentin - Readmitted 07/21/2013UA/Urine culture checked on admission to the floor- UA negative-> urine culture >100,000 lactose positive gram - bacilli. This was not quiroz induced this was TISSUE TECHNICIAN. Will discuss with ID - monitor for [...] tolerating PO Vancomycin. on 01/07 pt in [facility] and had ld syndrome rxn to Vanc IV. MEDICATIONS: blood sugar diagnostic (CatchSquareUCH ULTRA TEST) test strip before meals and [...] reviewed an echocardiogram performed by her primary card boxer in June that demonstrates a normal ejection [...] have her echocardiogram either with her primary card boxer or with me as long as she gets one yearly. Addendum Take Metolazone 3X/week for the next 2 weeks then go back to 2X/week Referring Provider: INGRIS GEORGE [[id number]] Allergies As of Date: 09/07/2017 Noted Allergy Reaction AUGMENTIN (AMOXICILLIN-POT CLAVUL*2013 2 - Rash SULFA (SULFONAMIDE ANTIBIOTICS) 01/10/2005 4 - Hives VANCOMYCIN 08/26/2013 10 - Anaphylaxis Comments: Per pharmacist. Patient tolerating PO Vancomycin. on 01/07 pt in [facility] and had ld syndrome rxn to Vanc [...] Rfl: BASIC METABOLIC PNL [SQBMP] Order #: [id number] FUTURE NT PRO BNP [SQNTBNP] Order #: [id number] FUTURE Prescriptions as of 09/07/2017 Sig: BLOOD [...] [N25.81] INVALID FOR* CAD (coronary artery disease), [place] coronary *INVALID FOR* Priority: F More... More... [...] (ICD) in*INVALID FOR* More... More... DVT prophylaxis [[id number]] INVALID FOR* More... Thrombocytopenia (HCC) [D69.6] INVALID [...] 09/14/17 CNCO Observed: 09/07/2017 Status: COMPLETED Source: [place] 12:00 AM [facility] REPOSITORY Letter Text Lashaun Fernando Department of Cardiovascular Medicine [address] [place], [place] [id number] Office: [phone] September 07, 2017 Elizabeth Ho [address] [place] [address] NAME: Elizabeth Ho [facility] NO: [id number] DATE OF SERVICE: 09/07/2017 My pleasure to [...] reviewed an echocardiogram performed by her primary card boxer in June that demonstrates a normal ejection [...] have her echocardiogram either with her primary card boxer or with me as long as she gets one yearly. Please feel free to contact me with any questions. Addendum Take Metolazone 3X/week for the next 2 weeks then go back to 2X/week Sincerely yours, Ingris George MD AK/ph PROTHROMBIN TIME W/INR Collected: 09/04/2017 Status: F Source: REALITOS 11:13 [facility] REPOSITORY TYPE CODE TESTS RESULT OUT OF RANGE REFERENCE UNITS LAB L300.4150 11.7-14.9 SECONDS High PROTIME 34.9 LAB L300.4200 Normal INR 3.4 Performed By: #### L300.3900 #### [facility] [address] [place], [place], [address] HEMOGLOBIN A1C Collected: 09/04/2017 Status: F Source: REALITOS 11:13 AM [facility] REPOSITORY Order Comment: SEND RESULTS TO . TYPE CODE TESTS RESULT OUT OF RANGE REFERENCE UNITS LAB L501.9985 4.2-6.3 % High HGB A1C 6.5 Performed By: #### L501.9985 #### [facility] [address] [place], [address] VITAMIN D,25 HYDROXY Collected: 09/04/2017 Status: F Source: REALITOS 11:13 AM [facility] REPOSITORY Order Comment: SEND RESULTS [...] (>250 nmol/L) Performed By: #### L506.1000 #### [facility] [place], [address] COMPREHENSIVE METABOLIC Collected: 09/04/2017 Status: F Source: NAM MURILLO 11:13 AM [facility] REPOSITORY Order Comment: SEND RESULTS [...] Performed By: #### L500.4050, L501.9520, L506.0400 #### [facility] [address] [place], [address] THYROID STIM HORMONE Collected: 09/04/2017 Status: F Source: REALITOS (TSH) 11:13 AM [facility] REPOSITORY Order Comment: SEND RESULTS TO . TYPE CODE TESTS RESULT OUT OF RANGE REFERENCE UNITS LAB L501.9520 0.358-3.74 uIU/mL Normal TSH 2.88 Performed By: #### L500.4050, L501.9520, L506.0400 #### [facility] [address] [place], [place], [address] T4 FREE DIRECT Collected: 09/04/2017 Status: F Source: REALITOS 11:13 AM [facility] REPOSITORY Order Comment: SEND RESULTS TO . TYPE CODE TESTS RESULT OUT OF RANGE REFERENCE UNITS LAB L506.0400 0.76-1.46 ng/dL Normal T4 FREE 1.45 DIRECT Performed By: #### L500.4050, L501.9520, L506.0400 #### [facility] [address] [place], [place], [address] CNOV Observed: 08/21/2017 Status: COMPLETED Source: ITA 1:00 PM [facility] REPOSITORY Office Visit (INTMWS) ELIZABETH HO ([id number]) 1950 F Date Time Provider Department 08/21/17 [...] need follow up labs- arranged for at [facility] - Anemia 05/15/2013 Chronic anemia [...] 05/15/2013 - Cellulitis of left leg 01/29/2010 [facility] ER 01/27/10 transferred to [facility] Dx: sepsis, afib, elevated INR - [...] kidney disease) stage 4, GFR 15-29 ml/min ([facility]) -On HD in 2009 for about 6-7 months, but has since improved to the point where she no longer requires it -stable Plan: - monitor renal function - avoid nephrotoxins - DM (diabetes mellitus) type II uncontrolled with renal manifestation Diabetes mellitus NIDDM - ESRD on hemodialysis ([facility]) Dr. Luo ([place]) - Failure to extubation 08/26/2013 Patient was [...] - Heart failure, systolic and diastolic, chronic ([facility]) 07/21/2013 NICM EF 45%, stage I diastolic dysfunction on most recent Echo 06/2013 On admission, clinically euvolemic Plan: - not currently on ACEi/ARB due to renal dysfunction - on carvedilol - continue spironolactone - hold Lasix 40mg PO BID until acute anemia addressed but will diurese with transfusions as needed - ICD in situ - Heart failure, systolic and diastolic, chronic ([facility]) 07/21/2013 NICM EF 45%, stage I diastolic [...] write COPAT. David placed. Will go to [facility] on Monday. - Type II or [...] and schedule follow up with endo at [facility] [place] - UTI (lower urinary tract infection) TISSUE TECHNICIAN not caused by insertion of quiroz 07/09/2013 07/08/2013 Urine culture suggests UTI s/p tx with Augmentin - Readmitted 07/21/2013UA/Urine culture checked on admission to the floor- UA negative-> urine culture >100,000 lactose positive gram - bacilli. This was not quiroz induced this was TISSUE TECHNICIAN. Will discuss with ID - monitor for [...] with long- term current use of insulin ([facility]) E11.9 insulin glargine (LANTUS SOLOSTAR U-100 INSULIN) 100 unit/mL (3 mL) inpn Z79.4 COMP METABOLIC PANEL HGB A1C ALBUMIN/CREAT RATIO RND UR 2. Coronary artery disease involving [place] coronary artery of [place] heart without angina pectoris I25.10 3. CKD (chronic kidney disease) stage 4, GFR 15-29 ml/min ([facility]) N18.4 4. PVD (peripheral vascular disease) ([facility]) I73.9 5. Venous (peripheral) insufficiency I87.2 6. Vitamin D deficiency E55.9 VITAMIN D 25 HYDROXY 7. Secondary hyperparathyroidism ([facility]) N25.81 VITAMIN D 25 HYDROXY 8. Implantable cardioverter-defibrillator (ICD) in situ Z95.810 9. Non morbid obesity due to excess calories E66.09 10. Congestive heart failure, NYHA class 3, unspecified congestive heart failure type ([facility]) I50.9 11. Anemia, unspecified type D64.9 12. On home O2 Z99.81 13. Acquired hypothyroidism E03.9 TSH BLD T4 FREE/FREE THYROX 14. PAF (paroxysmal atrial fibrillation) ([facility]) I48.0 warfarin (COUMADIN) 4 mg tablet Additional [...] as noted above. Continue follow up with card boxer. The majority of the visit was spent counseling and/or coordinating care for the patient. Gzye-dt-ukhs time was at least 25 minutes. Williams Parekh MD Referring Provider: WILLIAMS PAREKH [[id number]] Allergies As of Date: 08/21/2017 Noted Allergy Reaction AUGMENTIN (AMOXICILLIN-POT CLAVUL*2013 2 - Rash SULFA (SULFONAMIDE ANTIBIOTICS) 01/10/2005 4 - Hives VANCOMYCIN 08/26/2013 10 - Anaphylaxis Comments: Per pharmacist. Patient tolerating PO Vancomycin. on 01/07 pt in [facility] and had ld syndrome rxn to Vanc IV. Date Reviewed: 08/21/2017 Reviewed by: Porsha Nicole Cma - Fully Assessed Reason for Visit: Recheck [92] Primary Visit Diagnosis:Type 2 diabetes mellitus without complication, with long-term current use of insulin ([facility]) [E11.9, Z79.4] Other Visit Diagnoses:Coronary artery disease involving [place] coronary artery of [place] heart without angina pectoris [I25.10] CKD (chronic kidney disease) stage 4, GFR 15-29 ml/min ([facility]) [N18.4] PVD (peripheral vascular disease) ([facility]) [I73.9] Venous (peripheral) insufficiency [I87.2] Vitamin D deficiency [E55.9] Secondary hyperparathyroidism ([facility]) [N25.81] Implantable cardioverter-defibrillator (ICD) in situ [Z95.810] Non morbid obesity due to excess calories [E66.09] Congestive heart failure, NYHA class 3, unspecified congestive heart failure type ([facility]) [I50.9] Anemia, unspecified type [D64.9] On home O2 [Z99.81] Acquired hypothyroidism [E03.9] PAF (paroxysmal atrial fibrillation) ([facility]) [I48.0] Order(s):insulin glargine (LANTUS SOLOSTAR U-100 INSULIN) 100 unit/mL (3 mL) inpnInject 42 Units subcutaneously once daily.Disp: 5 PenRfl: 11 levothyroxine (SYNTHROID) 75 mcg tabletTake 1 tablet by mouth every morning on an empty stomach For ThyroidDisp: 90 tabletRfl: 3 COMP METABOLIC PANEL [SQCMP] Order #: [id number] FUTURE HGB A1C [KDGZR1O] Order #: [id number] FUTURE VITAMIN D 25 HYDROXY [SQVITD] Order #: [id number] FUTURE TSH BLD [SQTSH] Order #: [id number] FUTURE T4 FREE/FREE THYROX [SQFT4] Order #: [id number] FUTURE ALBUMIN/CREAT RATIO RND UR [SQUACR] Order #: [id number] FUTURE warfarin (COUMADIN) 4 mg xxttrd0xf Monday, 2 mg daily rest of the [...] [N25.81] INVALID FOR* CAD (coronary artery disease), [place] coronary *INVALID FOR* Priority: F More... More... [...] (ICD) in*INVALID FOR* More... More... DVT prophylaxis [[id number]] INVALID FOR* More... Thrombocytopenia (HCC) [D69.6] INVALID [...] 08/31/17 PROGRESS Observed: 08/21/2017 Status: COMPLETED Source: [place] 12:58 PM [facility] REPOSITORY HNO ID: [id number] Author: Williams Parekh Service: (none) Author Type: [...] need follow up labs- arranged for at [facility] - Anemia 05/15/2013 Chronic anemia [...] 05/15/2013 - Cellulitis of left leg 01/29/2010 [facility] ER 01/27/10 transferred to [facility] Dx: sepsis, afib, elevated INR - [...] kidney disease) stage 4, GFR 15-29 ml/min ([facility]) -On HD in 2009 for about 6-7 months, but has since improved to the point where she no longer requires it -stable Plan: - monitor renal function - avoid nephrotoxins - DM (diabetes mellitus) type II uncontrolled with renal manifestation Diabetes mellitus NIDDM - ESRD on hemodialysis ([facility]) Dr. Luo ([place]) - Failure to extubation 08/26/2013 Patient was [...] - Heart failure, systolic and diastolic, chronic ([facility]) 07/21/2013 NICM EF 45%, stage I diastolic dysfunction on most recent Echo 06/2013 On admission, clinically euvolemic Plan: - not currently on ACEi/ARB due to renal dysfunction - on carvedilol - continue spironolactone - hold Lasix 40mg PO BID until acute anemia addressed but will diurese with transfusions as needed - ICD in situ - Heart failure, systolic and diastolic, chronic ([facility]) 07/21/2013 NICM EF 45%, stage I diastolic [...] implant, and graft 09/01/2010 - Morbid obesity ([facility]) - Morbid obesity ([facility]) Nutrition consult - Muscular deconditioning 09/14/2013 - Non-ischemic cardiomyopathy ([facility]) Cardiomyopathy--[place] - Paroxysmal ventricular tachycardia ([facility]) 04/02/2005 H/o VT/TdP s/p ICD. S/p defibrillator [...] effect at home, will continue - Thrombocytopenia ([facility]) 07/26/2013 Anemia with thrombocytopenia that is resolving. [...] write COPAT. David placed. Will go to [facility] on Monday. - Type II or [...] and schedule follow up with endo at [place] - UTI (lower urinary tract infection) TISSUE TECHNICIAN not caused by insertion of quiroz 07/09/2013 07/08/2013 Urine culture suggests UTI s/p tx with Augmentin - Readmitted 07/21/2013UA/Urine culture checked on admission to the floor- UA negative-> urine culture >100,000 lactose positive gram - bacilli. This was not quiroz induced this was TISSUE TECHNICIAN. Will discuss with ID - monitor for [...] RND UR 2. Coronary artery disease involving [place] coronary artery of [place] heart without angina pectoris I25.10 3. CKD (chronic kidney disease) stage 4, GFR 15-29 ml/min ([facility]) N18.4 4. PVD (peripheral vascular disease) ([facility]) I73.9 5. Venous (peripheral) insufficiency I87.2 6. Vitamin D deficiency E55.9 VITAMIN D 25 HYDROXY 7. Secondary hyperparathyroidism ([facility]) N25.81 VITAMIN D 25 HYDROXY 8. Implantable cardioverter-defibrillator (ICD) in situ Z95.810 9. Non morbid obesity due to excess calories E66.09 10. Congestive heart failure, NYHA class 3, unspecified congestive heart failure type ([facility]) I50.9 11. Anemia, unspecified type D64.9 12. On home O2 Z99.81 13. Acquired hypothyroidism E03.9 TSH BLD T4 FREE/FREE THYROX 14. PAF (paroxysmal atrial fibrillation) ([facility]) I48.0 warfarin (COUMADIN) 4 mg tablet Additional [...] as noted above. Continue follow up with card boxer. The majority of the visit was spent counseling and/or coordinating care for the patient. Lrja-ug-oawk time was at least 25 minutes. Williams Parekh MD PROTHROMBIN TIME W/INR Collected: 08/21/2017 Status: F Source: NAM 12:09 PM [facility] REPOSITORY TYPE CODE TESTS RESULT OUT OF RANGE REFERENCE UNITS LAB L300.4150 11.7-14.9 SECONDS High PROTIME 28.7 LAB L300.4200 Normal INR 2.7 Performed By: #### L300.3900 #### [facility] [place], [address] CBC Collected: 08/17/2017 Status: F Source: [place] 12:04 PM [facility] REPOSITORY TYPE CODE TESTS RESULT [...] <0.01 Performed By: #### CBC, LIPB #### [facility] [address] [place], [place] [address] LIPID PANEL, BASIC Collected: 08/17/2017 Status: F Source: [place] 12:04 PM [facility] REPOSITORY TYPE CODE TESTS RESULT [...] Desk Reference: [facility] [place]. National Institutes of Health. 2001: NIH Publication No. 01-3305. 2. An International Atherosclerosis Society position paper: global recommendations for the management of dyslipidemia: executive summary, Atherosclerosis. 2014: 232(2):410-413. Performed By: #### CBC, LIPB #### [facility] [address] [place] [address] CNPTOUTREACH Observed: 08/08/2017 Status: COMPLETED Source: [place] 12:00 AM [facility] REPOSITORY Patient Outreach (FAMPST) ELIZABETH HO ([id number]) 1950 F Date Time Provider Department 08/08/17 WILLIAMS PAREKH FAMPST During your visit today, we recorded the following information about you: Allergies As of Date: 08/08/2017 Noted Allergy Reaction AUGMENTIN (AMOXICILLIN-POT CLAVUL*2013 2 - Rash SULFA (SULFONAMIDE ANTIBIOTICS) 01/10/2005 4 - Hives VANCOMYCIN 08/26/2013 10 - Anaphylaxis Comments: Per pharmacist. Patient tolerating PO Vancomycin. on 01/07 pt in [facility] and had ld syndrome rxn to Vanc IV. Date Reviewed: 03/15/2017 Reviewed by: Porsha Nicole Schedule Planning Manager - Fully Assessed Visit Diagnosis:Medication management [Z79.899] Order(s):CBC [SQCBC] Order #: [id number] FUTURE LIPID PANEL BASIC [SQLIPB] Order #: [id number] FUTURE Prescriptions as of 08/08/2017 Sig: X [...] [N25.81] INVALID FOR* CAD (coronary artery disease), [place] coronary *INVALID FOR* Priority: F More... More... [...] (ICD) in*INVALID FOR* More... More... DVT prophylaxis [GCI6069] INVALID FOR* More... Thrombocytopenia [D69.6] INVALID FOR* [...] TIME W/INR Collected: 08/07/2017 Status: F Source: REALITOS 11:38 AM [facility] REPOSITORY TYPE CODE TESTS RESULT OUT OF RANGE REFERENCE UNITS LAB L300.4150 11.7-14.9 SECONDS High PROTIME 25.9 LAB L300.4200 Normal INR 2.4 Performed By: #### L300.3900 #### [facility] [address] [place], [address] PACEMAKER CHECK Observed: 08/03/2017 Status: F Source: REALITOS 11:51 AM [facility] REPOSITORY [facility] [address] [place] [address] Pacemaker Check Date of Service: 07/03/17 1607 MR#: [id number] Acct: [id number] Name: ELIZABETH HO Rep #: [id number] : 1950 From: Lela Bullock Age/Sex: 66/F Location: [facility] [place] Status: Signed Comments Summary Comments: Dual Chamber ICD Evaluation: Interrogation completed per CATHODE MAKER order d/t pt in ER last night [...] with PAC's. Battery longevity approx 10 yrs. FORWARD AIR CONTROLLER/AIR OFFICER=<1%. Lead impedances, sensing and pace/sense thresholds remain stable. RV amplitude decreased with adequate safety margin. Counters cleared. Next f/u appt scheduled for in 3 mos. Pt had o.v today with NORMA Díaz for further cardiac evaluation. Device Device Date Interviewed: 06/21/17 Follow-up Location: in office Interview Reason: physician request Privacy Attorney: Nix Hydra Name: Jennifer IS-1/DF-1-DR Model: E143 Serial #: [id number] Implant Date: 08/14/14 Year(s): 2 Implant Physician: [...] Yes Incision well healed Leads Lead #1 Privacy Attorney Lead 1: Guidant Model Lead 1: [id number] Serial# Lead 1: [id number] Date Implanted Lead 1: 06/25/07 Position Lead 1: RA Lead #2 Privacy Attorney Lead 2: Medtronic Model Lead 2: 5076 Serial# Lead 2: [id number] Date Implanted Lead 2: 06/25/07 Position Lead 2: RV Additional Details: RV pace/sense lead Lead #3 Privacy Attorney Lead 3: Guidant Model Lead 3: 0184 Serial# Lead 3: [id number] Date Implanted Lead 3: 07/21/07 Position Lead [...] Ventricular tachycardia (paroxysmal) I47.2 S/P AICD 07/03/17 2549 <Electronically signed by Lela Bullock > Date Lela Bullock 08/03/17 1151<Electronically signed by Michael See MD> Cosigner Signature: Date (if applicable) Michael See MD CC: CNOV Observed: 08/01/2017 Status: COMPLETED Source: JEAN BAPTISTE 2:00 PM [facility] REPOSITORY Office Visit (INTMWS) ELIZABETH HO ([id number]) 1950 F Date Time Provider Department 4/10/18 2:00 PM RON MACIAS (MONA) INTVirginiaWS During your visit today, we recorded the following information about you: Temperature Pulse Respiration Blood pressure 98.4 degrees 65/minute 16/minute 128/82 Weight 93.4 kg Ron Macias APRN.CNP 08/01/2017 2:28 PM Signed CC: Patient presents with: Recheck: [facility] follow up, cellulitits HPI Elizabeth Ho is a 67 year old female who presents today for [facility] ER follow up from 07/21/17. Patient presented [...] need follow up labs- arranged for at [facility] - Anemia 05/15/2013 Chronic anemia [...] - Atrial fibrillation (HCC) - Atrial fibrillation ([facility]) 04/02/2005 Currently NSR Plan: - Supratherapeutic INR on presentation, holding Warfarin - holding heparin given GIB and risksANDgt;benefits - on carvedilol - ICD in place - Atrial fibrillation ([facility]) 04/02/2005 H/o pAF on coumadin and amiodarone [...] 05/15/2013 - Cellulitis of left leg 01/29/2010 [facility] ER 01/27/10 transferred to [facility] Dx: sepsis, afib, elevated INR - [...] kidney disease) stage 4, GFR 15-29 ml/min ([facility]) -On HD in 2009 for about 6-7 months, but has since improved to the point where she no longer requires it -stable Plan: - monitor renal function - avoid nephrotoxins - DM (diabetes mellitus) type II uncontrolled with renal manifestation Diabetes mellitus NIDDM - ESRD on hemodialysis ([facility]) Dr. Luo ([place]) - Failure to extubation 08/26/2013 Patient was [...] - Heart failure, systolic and diastolic, chronic ([facility]) 07/21/2013 NICM EF 45%, stage I diastolic dysfunction on most recent Echo 06/2013 On admission, clinically euvolemic Plan: - not currently on ACEi/ARB due to renal dysfunction - on carvedilol - continue spironolactone - hold Lasix 40mg PO BID until acute anemia addressed but will diurese with transfusions as needed - ICD in situ - Heart failure, systolic and diastolic, chronic ([facility]) 07/21/2013 NICM EF 45%, stage I diastolic [...] - Morbid obesity (HCC) - Morbid obesity ([facility]) Nutrition consult - Muscular deconditioning 09/14/2013 - [...] write COPAT. David placed. Will go to [facility] on Monday. - Type II or [...] and schedule follow up with endo at [place] - UTI (lower urinary tract infection) TISSUE TECHNICIAN not caused by insertion of quiroz 07/09/2013 07/08/2013 Urine culture suggests UTI s/p tx with Augmentin - Readmitted 07/21/2013UA/Urine culture checked on admission to the floor- UA negative-ANDgt; urine culture ANDgt;100,000 lactose positive gram - bacilli. This was not quiroz induced this was TISSUE TECHNICIAN. Will discuss with ID - monitor for [...] Patient agreeable to treatment plan. Ron Macias APRN.PLANT CONTROL AIDE Referring Provider: SELF [200] Allergies As of Date: 08/01/2017 Noted Allergy Reaction AUGMENTIN (AMOXICILLIN-POT CLAVUL*2013 2 - Rash SULFA (SULFONAMIDE ANTIBIOTICS) 01/10/2005 4 - Hives VANCOMYCIN 08/26/2013 10 - Anaphylaxis Comments: Per pharmacist. Patient tolerating PO Vancomycin. on 01/07 pt in [facility] and had ld syndrome rxn to Vanc IV. Date Reviewed: 03/15/2017 Reviewed by: Porsha Nicole Schedule Planning Manager - Fully Assessed Reason for Visit: Recheck [92] Cmt: [facility] follow up, cellulitits Primary Visit Diagnosis:Cellulitis of [...] [N25.81] INVALID FOR* CAD (coronary artery disease), [place] coronary *INVALID FOR* Priority: F More... More... [...] (ICD) in*INVALID FOR* More... More... DVT prophylaxis [HCE5036] INVALID FOR* More... Thrombocytopenia [D69.6] INVALID FOR* [...] 08/01/17 PROGRESS Observed: 08/01/2017 Status: COMPLETED Source: [place]ST[place] 1:45 PM [facility] REPOSITORY HNO ID: [id number] Author: Ron aMcias Service: (none) Author Type: Nurse Practitioner Type: Progress Notes Filed: 08/01/2017 2:28 PM Note Text: CC: Patient presents with: Recheck: [facility] follow up, cellulitits HPI Elizabeth Ho is a 67 year old female who presents today for [facility] ER follow up from 07/21/17. Patient presented [...] - ICD in place - Atrial fibrillation ([facility]) 04/02/2005 H/o pAF on coumadin and amiodarone [...] 05/15/2013 - Cellulitis of left leg 01/29/2010 [facility] ER 01/27/10 transferred to [facility] Dx: sepsis, afib, elevated INR - [...] kidney disease) stage 4, GFR 15-29 ml/min ([facility]) -On HD in 2009 for about 6-7 months, but has since improved to the point where she no longer requires it -stable Plan: - monitor renal function - avoid nephrotoxins - DM (diabetes mellitus) type II uncontrolled with renal manifestation Diabetes mellitus NIDDM - ESRD on hemodialysis ([facility]) Dr. Luo ([place]) - Failure to extubation 08/26/2013 Patient was [...] - Heart failure, systolic and diastolic, chronic ([facility]) 07/21/2013 NICM EF 45%, stage I diastolic dysfunction on most recent Echo 06/2013 On admission, clinically euvolemic Plan: - not currently on ACEi/ARB due to renal dysfunction - on carvedilol - continue spironolactone - hold Lasix 40mg PO BID until acute anemia addressed but will diurese with transfusions as needed - ICD in situ - Heart failure, systolic and diastolic, chronic ([facility]) 07/21/2013 NICM EF 45%, stage I diastolic [...] of other vascular device, implant, and graft ([facility]) 09/01/2010 - Morbid obesity ([facility]) - Morbid obesity ([facility]) Nutrition consult - Muscular deconditioning 09/14/2013 - Non-ischemic cardiomyopathy ([facility]) Cardiomyopathy--[place] - Paroxysmal ventricular tachycardia ([facility]) 04/02/2005 H/o VT/TdP s/p ICD. S/p defibrillator firing on 03/15/13 in the context of hypokalemia. Electrically quiescent on admission 06/2013 Plan: Monitor lytes and replete prn - Peripheral vascular disease ([facility]) - Pressure ulcer, other site(707.09) 07/07/2013 bilateral [...] effect at home, will continue - Thrombocytopenia ([facility]) 07/26/2013 Anemia with thrombocytopenia that is resolving. [...] write COPAT. David placed. Will go to [facility] on Monday. - Type II or [...] and schedule follow up with endo at [place] - UTI (lower urinary tract infection) TISSUE TECHNICIAN not caused by insertion of quiroz 07/09/2013 07/08/2013 Urine culture suggests UTI s/p tx with Augmentin - Readmitted 07/21/2013UA/Urine culture checked on admission to the floor- UA negative-> urine culture >100,000 lactose positive gram - bacilli. This was not quiroz induced this was TISSUE TECHNICIAN. Will discuss with ID - monitor for [...] Patient agreeable to treatment plan. Ron Kurtis, PRODUCT DESIGN MANAGER.PLANT CONTROL AIDE PROTHROMBIN TIME W/INR Collected: 07/31/2017 Status: F Source: NAM 10:17 AM [facility] REPOSITORY TYPE CODE TESTS RESULT OUT OF RANGE REFERENCE UNITS LAB L300.4150 11.7-14.9 SECONDS High PROTIME 19.3 LAB L300.4200 Normal INR 1.6 Performed By: #### L300.3900 #### [facility] [address] [place], [address] PROTHROMBIN TIME W/INR Collected: 07/27/2017 Status: F Source: NAM 10:57 AM [facility] REPOSITORY Order Comment: Send Results To: [facility] Reason for Laboratory Test coumadin TYPE CODE TESTS RESULT OUT OF RANGE REFERENCE UNITS LAB L300.4150 11.7-14.9 SECONDS High PROTIME 24.8 LAB L300.4200 Normal INR 2.2 Performed By: #### L300.3900 #### [facility] [address] [place], [address] DISCHARGE SUMMARY Observed: 07/25/2017 Status: F Source: REALITOS 2:17 PM [facility] REPOSITORY [facility] Medical Records Department [address] [place] [address] Discharge Summary 07/25/17 1314 MR#: [id number] Acct: [id number] Name: ELIZABETH HO Rep #: [id number] : 1950 67 From: Jose Castillo MD PCP: Williams Parekh MD Status: ADM IN Location: [address] Discharge Date and Diagnosis - Problem [...] Ventricular flutter (Chronic) Rheumatic tricuspid insufficiency (Chronic) senior care (current) use of anticoagulants (Chronic) ICD (implantable [...] with her primary care doctor and her card boxer in 1-2 weeks. [] 1. Left leg [...] applicable Code Visit Inpatient E AND M: 00013 Disch Hosp 07/25/17 1417 <Electronically signed by Jose Castillo MD> Date Jose Castillo MD Cosigner Signature (if applicable): Date CC: Jose Castillo MD; Williams Parekh MD Signed DISCHARGE INSTRUCTION Observed: 07/25/2017 Status: F Source: NAM 1:13 PM [facility] REPOSITORY [facility] Medical Records Department [address] [place] [address] Instructions for Home/Discharge Instructions 07/25/17 1310 MR#: [id number] Acct: [id number] Name: ELIZABETH HO Rep #: [id number] : 1950 67 From: Jose Castillo MD [...] Date: 07/25/17 07/25/17 1313 <Electronically signed by oJse Castillo MD> Date Jose Castillo MD CC: Williams Parekh MD BEDSIDE GLUCOSE Collected: 07/25/2017 Status: F Source: NAM 11:47 AM [facility] REPOSITORY TYPE CODE TESTS RESULT OUT OF REFERENCE UNITS RANGE LAB L501.080 70-110 mg/dL High BEDSIDE GLU 193 Result Comment: MANAGEMENT OF PATIENT CARE PER NURSING PROTOCOL Performed By: #### L501.080 #### [facility] Point of Care [address] [place], [place] [address] BEDSIDE GLUCOSE Collected: 07/25/2017 Status: F Source: NAM 8:28 AM [facility] REPOSITORY TYPE CODE TESTS RESULT OUT OF RANGE REFERENCE UNITS LAB L501.080 70-110 mg/dL Normal BEDSIDE GLU 108 Result Comment: MANAGEMENT OF PATIENT CARE PER NURSING PROTOCOL Performed By: #### L501.080 #### [facility] Point of Care [address] [place] [address] PROTHROMBIN TIME W/INR Collected: 07/25/2017 Status: F Source: NAM 5:00 AM [facility] REPOSITORY TYPE CODE TESTS RESULT OUT OF REFERENCE UNITS RANGE LAB L300.4150 11.7-14.9 SECONDS High PROTIME 43.3 LAB L300.4200 High alert INR 4.5 Result Comment: CRITICAL VALUE VERIFIED. CALLED TO NEETA WARREN 07/25/17617 [place]. RESULTS READ BACK BY SAME . Performed By: #### L300.3900 #### [facility] [address] [place], [address] BEDSIDE GLUCOSE Collected: 07/24/2017 Status: F Source: NAM 10:04 PM [facility] REPOSITORY TYPE CODE TESTS RESULT OUT OF REFERENCE UNITS RANGE LAB L501.080 70-110 mg/dL High BEDSIDE GLU 123 Result Comment: MANAGEMENT OF PATIENT CARE PER NURSING PROTOCOL Performed By: #### L501.080 #### [facility] Point of Care [address] [place] [address] VENOUS DUPLEX LOWER Observed: 07/24/2017 Status: F Source: NAM EXTREMITY 5:24 PM [facility] REPOSITORY [facility] Cardiovascular Services [address] [place] [address] Venous Duplex US - Deandre Extrem 07/24/17 0946 MR#: [id number] Acct: [id number] Name: ELIZABETH HO Rep #: [id number] : 1950 67 From: Ha Herman MD Attending Dr[facility] Status: ADM IN Ordering Dr: Piter Laureano [...] Performed By: Michelle Linton RVT 07/24/171722 Date aH Herman MD CC: Jose Castillo MD; Williams Parekh MD; Piter Laureano MD Date Dictated: 07/24/17945 Date Transcribed: 07/24/171722 Leasing Consultant: Signed BEDSIDE GLUCOSE Collected: 07/24/2017 Status: F Source: NAM 4:41 PM [facility] REPOSITORY TYPE CODE TESTS RESULT OUT OF REFERENCE UNITS RANGE LAB L501.080 70-110 mg/dL High BEDSIDE GLU 269 Result Comment: MANAGEMENT OF PATIENT CARE PER NURSING PROTOCOL Performed By: #### L501.080 #### [facility] Point of Care [address] [place] [address] BEDSIDE GLUCOSE Collected: 07/24/2017 Status: F Source: NAM 11:31 AM [facility] REPOSITORY TYPE CODE TESTS RESULT OUT OF REFERENCE UNITS RANGE LAB L501.080 70-110 mg/dL High BEDSIDE GLU 200 Result Comment: Insulin Given MANAGEMENT OF PATIENT CARE PER NURSING PROTOCOL Performed By: #### L501.080 #### [facility] Point of Care [address] [place] [address] BEDSIDE GLUCOSE Collected: 07/24/2017 Status: F Source: NAM 7:41 AM [facility] REPOSITORY TYPE CODE TESTS RESULT OUT OF REFERENCE UNITS RANGE LAB L501.080 70-110 mg/dL High BEDSIDE GLU 113 Result Comment: MANAGEMENT OF PATIENT CARE PER NURSING PROTOCOL Performed By: #### L501.080 #### [facility] Point of Care [address] [place] [address] PROTHROMBIN TIME W/INR Collected: 07/24/2017 Status: F Source: NAM 7:12 AM [facility] REPOSITORY TYPE CODE TESTS RESULT OUT OF REFERENCE UNITS RANGE LAB L300.4150 11.7-14.9 SECONDS High PROTIME 43.1 LAB L300.4200 High alert INR 4.5 Result Comment: CRITICAL VALUE VERIFIED. CALLED TO ALYSON FRANCISCO 07/24/17 0800 Reji Cast RESULTS READ BACK BY SAME. Performed By: #### L300.3900 #### [facility] [address] [place], [address] BEDSIDE GLUCOSE Collected: 07/23/2017 Status: F Source: NAM 9:34 PM [facility] REPOSITORY TYPE CODE TESTS RESULT OUT OF REFERENCE UNITS RANGE LAB L501.080 70-110 mg/dL High BEDSIDE GLU 272 Result Comment: MANAGEMENT OF PATIENT CARE PER NURSING PROTOCOL Performed By: #### L501.080 #### [facility] Point of Care [address] [place] [address] BEDSIDE GLUCOSE Collected: 07/23/2017 Status: F Source: NAM 4:06 PM [facility] REPOSITORY TYPE CODE TESTS RESULT OUT OF REFERENCE UNITS RANGE LAB L501.080 70-110 mg/dL High BEDSIDE GLU 200 Result Comment: MANAGEMENT OF PATIENT CARE PER NURSING PROTOCOL Performed By: #### L501.080 #### [facility] Point of Care [address] [place] [address] BEDSIDE GLUCOSE Collected: 07/23/2017 Status: F Source: NAM 11:21 AM [facility] REPOSITORY TYPE CODE TESTS RESULT OUT OF REFERENCE UNITS RANGE LAB L501.080 70-110 mg/dL High BEDSIDE GLU 191 Result Comment: MANAGEMENT OF PATIENT CARE PER NURSING PROTOCOL Performed By: #### L501.080 #### [facility] Point of Care [address] [place] [address] BEDSIDE GLUCOSE Collected: 07/23/2017 Status: F Source: NAM 7:20 AM [facility] REPOSITORY TYPE CODE TESTS RESULT OUT OF RANGE REFERENCE UNITS LAB L501.080 70-110 mg/dL Normal BEDSIDE GLU 92 Result Comment: MANAGEMENT OF PATIENT CARE PER NURSING PROTOCOL Performed By: #### L501.080 #### [facility] Point of Care [address] [place] [address] BEDSIDE GLUCOSE Collected: 07/22/2017 Status: F Source: NAM 10:02 PM [facility] REPOSITORY TYPE CODE TESTS RESULT OUT OF REFERENCE UNITS RANGE LAB L501.080 70-110 mg/dL High BEDSIDE GLU 138 Result Comment: MANAGEMENT OF PATIENT CARE PER NURSING PROTOCOL Performed By: #### L501.080 #### [facility] Point of Care [address] [place] [address] BEDSIDE GLUCOSE Collected: 07/22/2017 Status: F Source: NAM 3:57 PM [facility] REPOSITORY TYPE CODE TESTS RESULT OUT OF REFERENCE UNITS RANGE LAB L501.080 70-110 mg/dL High BEDSIDE GLU 218 Result Comment: MANAGEMENT OF PATIENT CARE PER NURSING PROTOCOL Performed By: #### L501.080 #### [facility] Point of Care [address] [place] [address] BEDSIDE GLUCOSE Collected: 07/22/2017 Status: F Source: NAM 11:01 AM [facility] REPOSITORY TYPE CODE TESTS RESULT OUT OF REFERENCE UNITS RANGE LAB L501.080 70-110 mg/dL High BEDSIDE GLU 240 Result Comment: MANAGEMENT OF PATIENT CARE PER NURSING PROTOCOL Performed By: #### L501.080 #### [facility] Point of Care [address] [place] [address] BEDSIDE GLUCOSE Collected: 07/22/2017 Status: F Source: NAM 6:58 AM [facility] REPOSITORY TYPE CODE TESTS RESULT OUT OF REFERENCE UNITS RANGE LAB L501.080 70-110 mg/dL High BEDSIDE GLU 119 Result Comment: MANAGEMENT OF PATIENT CARE PER NURSING PROTOCOL Performed By: #### L501.080 #### [facility] Point of Care [address] [place] [address] CBC W/DIFF, AUTOMATED Collected: 07/22/2017 Status: F Source: NAM 6:35 AM [facility] REPOSITORY TYPE CODE TESTS RESULT [...] M.D. 07/25/17 Performed By: #### L100.0100 #### [facility] [address] [place], [address] BASIC METABOLIC Collected: 07/22/2017 Status: F Source: NAM PROFILE ([facility]) 6:35 AM [facility] REPOS[facility] TYPE [...] GAP 8 Performed By: #### L500.2500 #### [facility] [address] [place], [address] HISTORY AND PHYSICAL Observed: 07/22/2017 Status: F Source: REALITOS EXAM 2:44 AM [facility] REPOSITORY [facility] Medical Records Department [address] [place] [address] History and Physical 07/22/17 0000 MR#: [id number] Acct: [id number] Name: ELIZABETH HO Rep #: [id number] : 1950 67 From: Piter Laureano MD PCP: Williams Parekh MD Status: ADM IN Y Location: MS3 BP455-7 Problem List (1) Cellulitis Status: Acute (2) [...] Ventricular flutter (Chronic) Rheumatic tricuspid insufficiency (Chronic) senior care (current) use of anticoagulants (Chronic) ICD (implantable [...] EMERGENCY DEPARTMENT Observed: 07/21/2017 Status: F Source: REALITOS SUMMARY 11:28 PM [facility] REPOSITORY [facility] Medical Records Department [address] [place] [address] Emergency Department Summary 07/21/17 2325 MR#: [id number] Acct: [id number] Name: ELIZABETH HO Rep #: [id number] : 1950 67 From: Leticia Parker DO [...] lower extremity] This note was generated with [employer] dictation software. It may contain incorrect words, [...] problems, contact your Primary Care Provider. Call [facility] ([phone]) or report to the closest Emergency Room. Call 911 if necessary. 07/21/17 7959 <Electronically signed by Leticia Parker DO> Date Leticia Ungharmony DO Cosigner Signature (If Indicated): Date CC: Williams Parekh MD BASIC METABOLIC Collected: 07/21/2017 Status: F Source: REALITOS PROFILE (BMP) 10:38 PM [facility] REPOSITORY TYPE CODE TESTS RESULT [...] GAP 6 Performed By: #### L500.2500 #### [facility] [address] [place], [address] CBC W/DIFF, AUTOMATED Collected: 07/21/2017 Status: C Source: REALITOS 10:38 PM [facility] REPOSITORY TYPE CODE TESTS RESULT [...] as: August Performed By: #### L100.0100 #### [facility] [address] [place], [address] PROTHROMBIN TIME W/INR Collected: 07/21/2017 Status: F Source: REALITOS 10:38 PM [facility] REPOSITORY TYPE CODE TESTS RESULT OUT OF RANGE REFERENCE UNITS LAB L300.4150 11.7-14.9 SECONDS High PROTIME 30.6 LAB L300.4200 Normal INR 2.9 Performed By: #### L300.3900 #### [facility] [address] [place], [address] PROTHROMBIN TIME W/INR Collected: 2017 Status: F Source: NAM 9:42 AM [facility] REPOSITORY TYPE CODE TESTS RESULT OUT OF RANGE REFERENCE UNITS LAB L300.4150 11.7-14.9 SECONDS High PROTIME 29.2 LAB L300.4200 Normal INR 2.7 Performed By: #### L300.3900 #### [facility] [address] [place], [address] ECHO, COMPLETE W/ Observed: 07/10/2017 Status: F Source: NAM CONTRAST 4:22 PM [facility] REPOSITORY [facility] Cardiovascular Services [address] [place] [address] Echo Complete W/ Contrast 07/10/17 1318 MR#: [id number] Acct: [id number] Name: ELIZABETH HO Bright Rep #: [id number] : 1950 66 From: Saji Hernandez MD Attending Dr: Anibal Jenkins NP Status: REG CLI Ordering Dr: Anibal Jenkins CATHODE MAKER-C Date: 07/10/17 Location: [facility] Sex: F C [...] Date Dictated: 07/10/17 1318 Date Transcribed: 07/10/171620 Leasing Consultant: Signed PROTHROMBIN TIME W/INR Collected: 06/26/2017 Status: F Source: NAM 1:21 PM [facility] REPOSITORY TYPE CODE TESTS RESULT OUT OF RANGE REFERENCE UNITS LAB L300.4150 11.7-14.9 SECONDS High PROTIME 30.1 LAB L300.4200 Normal INR 2.9 Performed By: #### L300.3900 #### [facility] [address] [place], [address] CARDIOLOGY VISIT Observed: 06/22/2017 Status: F Source: NAM REPORT 7:09 AM [facility] REPOSITORY [facility] [address] [place] [address] OFFICE VISIT Date of Service: 06/21/17 MR#: [id number] Acct: [id number] Name: ELIZABETH HO Rep #: [id number] : 1950 Provider: LEXI Jenkins Age/Sex: 66/F Location: [facility] [place] Status: Signed HPI HPI Details: ELIZABETH HO, [...] diabetes, chronic renal insufficiency. 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 We will wait for the results of [...] 06/21/2017 Status: F Source: NAM 2:31 PM [facility] REPOSITORY [facility] Cardiovascular Services [address] [place] [address] 12 Lead EKG 06/20/172118 MR#: [id number] Acct: [id number] Name: ELIZABETH HO R Rep #: [id number] : 1950 66 From: Saji Hernandez MD [...] ECG Confirmed by SAJI HERNANDEZ MD ([id number]), proposal editor CAT CONKLIN ([id number]) on 06/21/2017 2:30:43 PM Referred By: Michael See Confirmed By:SAJI HERNANDEZ MD 06/21/17 1430 Date Saji Hernandez MD CC: Williams Parekh MD; Brian Frey MD Signed EMERGENCY DEPARTMENT Observed: 06/21/2017 Status: F Source: NAM SUMMARY 12:10 AM [facility] REPOSITORY [facility] Medical Records Department [address] [place] [address] Emergency Department Summary 06/20/172253 MR#: [id number] Acct: [id number] Name: HOELIZABETH R Rep #: [id number] : 1950 66 From: Brian Frey MD [...] time her QTC was 530 and her UT was 204. CBC is marked for an [...] 2. Anxiety. This note was generated with Postcronation software. It may contain incorrect words, spelling, [...] your Primary Care Provider. Call [facility] ([phone]) or report to the closest Emergency Room. Call 911 if necessary. 06/21/17 0010 <Electronically signed by Brian Frey MD> Date Brian Frey MD Cosigner Signature (If Indicated): Date CC: Williams Parekh MD URINALYSIS, COMPLETE Collected: 06/20/2017 Status: F Source: NAM 10:05 PM [facility] REPOSITORY Order Comment: How was Urine Obtained? INSPECTOR QUALITY ASSURANCE TO SPECIFY TYPE CODE TESTS RESULT OUT [...] 0-5 SEEN Performed By: #### L400.0001 #### [facility] [address] [place], [address] CBC W/DIFF, AUTOMATED Collected: 06/20/2017 Status: C Source: REALITOS 9:35 PM [facility] REPOSITORY TYPE CODE TESTS RESULT [...] as: August Performed By: #### L100.0100 #### [facility] [address] [place], [place], [address] BASIC METABOLIC Collected: 06/20/2017 Status: F Source: REALITOS PROFILE (BMP) 9:35 PM [facility] REPOSITORY Order Comment: 'TROP' Serial [...] 4 Performed By: #### L500.2500, L501.4010 #### [facility] [address] [place], [address] TROPONIN-I Collected: 06/20/2017 Status: F Source: REALITOS 9:35 PM [facility] REPOSITORY Order Comment: 'TROP' Serial specimen #1, #2, #3, or #4: 1 TYPE CODE TESTS RESULT OUT OF RANGE REFERENCE UNITS LAB L501.4010 <0.06 ng/mL Normal < 0.02 TROPONIN-I Result Comment: TROPONIN-I EXPECTED VALUES <0.05 NEGATIVE 0.06 - 0.59 AT RISK OF DC > OR = 0.60 SUGGEST DC Performed By: #### L500.2500, L501.4010 #### [facility] [address] [place], [address] PROTHROMBIN TIME W/INR Collected: 06/19/2017 Status: F Source: REALIT[facility] 8:51 AM [facility] REPOSITORY TYPE CODE TESTS RESULT OUT OF REFERENCE UNITS RANGE LAB L300.4150 11.7-14.9 SECONDS High PROTIME 37.6 LAB L300.4200 High alert INR 4.0 Result Comment: CRITICAL VALUE VERIFIED. CALLED TO ZACH FRANCISCO 06/19/17 0949 Reji Taylor. RESULTS READ BACK BY SAME. Performed By: #### L300.3900 #### [facility] [address], [address] PROTHROMBIN TIME W/INR Collected: 06/12/2017 Status: F Source: REALITOS 12:07 PM [facility] REPOSITORY TYPE CODE TESTS RESULT OUT OF REFERENCE UNITS RANGE LAB L300.4150 11.7-14.9 SECONDS High PROTIME 36.7 LAB L300.4200 High alert INR 3.9 Result Comment: CRITICAL VALUE VERIFIED. CALLED TO MAGGY AT [facility] 06/12/17 1340 Cyndie Lanier. RESULTS READ BACK BY SAME . Performed By: #### L300.3900 #### [facility] [address] [place], [address] PROTHROMBIN TIME W/INR Collected: 05/29/2017 Status: F Source: NAM 1:25 PM [facility] REPOSITORY TYPE CODE TESTS RESULT OUT OF RANGE REFERENCE UNITS LAB L300.4150 11.7-14.9 SECONDS High PROTIME 26.9 LAB L300.4200 Normal INR 2.6 Performed By: #### L300.3900 #### [facility] [address] [place], [address] PROTHROMBIN TIME W/INR Collected: 05/24/2017 Status: F Source: REALITOS 12:52 PM [facility] REPOSITORY Order Comment: CRITICAL VALUE VERIFIED. CALLED TO NOEMI 05/24/17 1320 Rayne Nicole. RESULTS READ BACK BY ALIA . TYPE CODE TESTS RESULT OUT OF REFERENCE UNITS RANGE LAB L300.4150 11.7-14.9 SECONDS High PROTIME 34.9 LAB L300.4200 High alert INR 3.7 Performed By: #### L300.3900 #### [facility] [address] [place], [address] PROTHROMBIN TIME W/INR Collected: 04/25/2017 Status: F Source: NAM 12:46 PM [facility] REPOSITORY TYPE CODE TESTS RESULT OUT OF RANGE REFERENCE UNITS LAB L300.4150 11.7-14.9 SECONDS High PROTIME 25.5 LAB L300.4200 Normal INR 2.4 Performed By: #### L300.3900 #### [facility] [address] [place], [address] BASIC METABOLIC Collected: 04/25/2017 Status: F Source: NAM PROFILE (BMP) 12:44 PM [facility] REPOSITORY TYPE CODE TESTS RESULT [...] GAP 7 Performed By: #### L500.2500 #### [facility] [address] [place], [address] OFFICE VISIT REPORT Observed: 04/12/2017 Status: F Source: REALITOS 10:41 AM [facility] REPOSITORY [facility] [address] [place] [address] OFFICE VISIT Date of Service: 04/11/17 MR#: [id number] Acct: [id number] Patient: ELIZABETH HO Rep #: [id number] : 1950 Provider: Lela Bullock Age/Sex: 66/F [place] [facility] [place] Status: Signed Device Device Date Interviewed: 04/11/17 Follow-up Location: in office Interview Reason: routine follow up Privacy Attorney: Nix Hydra Name: Angeliquen IS-1/DF-1-DR Model: E143 Serial #: [id number] Implant Date: 08/14/14 Year(s): 2 Implant Physician: [...] Yes Incision well healed Leads Lead #1 Privacy Attorney Lead 1: Guidant Model Lead 1: [id number] Serial# Lead 1: [id number] Date Implanted Lead 1: 06/25/07 Position Lead 1: RA Lead #2 Privacy Attorney Lead 2: Medtronic Model Lead 2: 5076 Serial# Lead 2: [id number] Date Implanted Lead 2: 06/25/07 Position Lead 2: RV Additional Details: RV pace/sense lead Lead #3 Privacy Attorney Lead 3: Guidant Model Lead 3: 0184 Serial# Lead 3: [id number] Date Implanted Lead 3: 07/21/07 Position Lead [...] Presenting rhythm shows NSR @ 62 bpm. FORWARD AIR CONTROLLER/AIR OFFICER=<1%. Battery longevity approx 10 yrs. Lead impedances, [...] 04/11/2017 Status: F Source: NAM 3:44 PM [facility] REPOSITORY Order Comment: Comments: Standing Order Comments: Standing Order TYPE CODE TESTS RESULT OUT OF RANGE REFERENCE UNITS LAB L300.4150 11.7-14.9 SECONDS High PROTIME 31.3 LAB L300.4200 Normal INR 3.2 Performed By: #### L300.3900 #### [facility] [address] [place], [address] BASIC METABOLIC Collected: 04/11/2017 Status: F Source: NAM PROFILE (BMP) 12:48 PM [facility] REPOSITORY Order Comment: Order Date: [...] GAP 7 Performed By: #### L500.2500 #### [facility] [address] [place], [address] ALLERGIES ALLERGIES DATE TYPE / NAME / CODE REACTION SEVERITY SOURCE CODE 11/20/2017 Drug amoxicillin Rash Unknown [place] Allergy/41 trihydrate/G05157 [facility] 7867836( 2707(RXNORM) [facility]) Repository 11/20/2017 Drug potassium Rash Unknown [place] Allergy/41 clavulanate/F0000 [facility] 4128798( 99736(RXNORM) [facility]) Repository 11/20/2017 Drug Sulfa Hives Unknown [place] Allergy/41 (Sulfonamide [facility] 9368466( Antibiotics)/F001 [facility]) 267607(RXNORM) Repository 11/20/2017 Drug vancomycin/J76934 Other Unknown [place] Allergy/41 4866(RXNORM) Community 2689179([facility]) Repository 08/26/2013 DRUG VANCOMYCIN ANAPHYLAXIS [facility] INGREDI/41 [place] 9569722([facility]) 2013 DRUG/56557 AMOXICILLIN-POT RASH [facility] 1003(SNOME CLAVULANATE [place] D CT) Repository 01/10/2005 Drug SULFA HIVES High [facility] Class/4195 (SULFONAMIDE [place] 31792(SNOM ANTIBIOTICS) Repository ED CT) ENCOUNTERS ENCOUNTERS ADMIT/DISCHARGE ACCOUNT ADMITTING ENCOUNTER LOCATION SOURCE NUMBER CLASS 04/02/2018 [id number] [facility] [place] [facility] 03/27/2018 [id number] Ambulatory [facility] HospitalBuild Hospital ing:OLS.AVED Repository 03/24/2018 [id number] Ambulatory [facility] HospitalBuild Hospital ing:OLS.AVED Repository 03/23/2018/03/23/20 [id number] Emergency [address] HospitalBuild Hospital ing:ED Repository 03/22/2018 [id number] Ambulatory [facility] HospitalBuild Hospital ing:OLS.AVED Repository 03/20/2018 [id number] [facility] Repository 03/19/2018 [id number] Ambulatory [facility] HospitalBuild Hospital ing:OLS.AVED Repository 03/16/2018 [id number] [facility] ing:OLS.AVED Repository 03/14/2018 [id number] [facility] ing:OLS.AVED Repository 03/12/2018 [id number] [facility] ing:OLS.AVED Repository 03/06/2018 [id number] Ambulatory [facility] HospitalBuild Hospital ing:OLS.AVED Repository 03/02/2018 [id number] Ambulatory [facility] HospitalBuild Hospital ing:OLS.AVEC Repository 02/28/2018 [id number] [facility] ing:OLS.AVED Repository 02/21/2018 [id number] Ambulatory [facility] HospitalBuild Hospital ing:OLS.AVED Repository 02/20/2018 [id number] Ambulatory [facility] HospitalBuild Hospital ing:OLS.AVED Repository 02/14/2018 [id number] Ambulatory [facility] HospitalBuild Hospital ing:OLS.AVED Repository 02/09/2018 [id number] [facility] ing:OLS.AVED Repository 02/08/2018 [id number] Ambulatory [facility] HospitalBuild Hospital ing:OLS.AVED Repository 02/07/2018 [id number] Ambulatory [facility] HospitalBuild Hospital ing:OLS.AVED Repository 01/31/2018 [id number] Ambulatory [facility] HospitalBuild Hospital ing:OLS.AVED Repository 01/23/2018 [id number] Ambulatory [facility] HospitalBuild Hospital ing:OLS.AVED Repository 01/19/2018 [id number] Ambulatory [facility] HospitalBuild Hospital ing:OLS.AVED Repository 01/17/2018 [id number] Ambulatory [facility] HospitalBuild Hospital ing:OLS.AVED Repository 01/15/2018 [id number] Ambulatory [facility] HospitalBuild Hospital ing:OLS.AVED Repository 01/10/2018 [id number] Ambulatory [facility] HospitalBuild Hospital ing:OLS.AVED Repository 01/08/2018 [id number] Ambulatory [facility] HospitalBuild Hospital ing:OLS.AVED Repository 01/04/2018 [id number] Ambulatory [facility] HospitalBuild Hospital ing:OLS.AVED Repository 01/02/2018 [id number] [facility] Repository 01/01/2018 [id number] White, Loren Ambulatory BMSBuilding:B [place] Repository 01/01/2018/01/04/20 [id number] White, Loren Ambulatory [address] Hospital ing:OR6Wjqe: Repository ON000Dwq: 1 01/01/2018 [id number] White, Loren Ambulatory BMSBuilding:B [place].[facility] Repository 01/01/2018 [id number] White, Loren Ambulatory BMSBuilding:B [place].[facility] Repository 12/29/2017/01/02/20 [id number] Ambulatory [address] Repository 12/28/2017/12/29/19 [id number] Emergency [address] Hospital ing:ED Repository 12/26/2017/12/27/19 [id number] Ambulatory BMSBuilding:B [place] 18 MS.[facility] Repository 12/22/2017/12/23/19 [id number] Ambulatory [address] ing:LAB Repository 11/20/2017/11/21/19 [id number] Ambulatory BMSBuilding:B [place] 18 MS.[facility] Repository 11/20/2017/11/21/19 [id number] Ambulatory [address] ing:LAB Repository 11/14/2017/11/15/19 [id number] Emergency [address] ing:ED Repository 10/16/2017/10/17/19 [id number] Ambulatory BMSBuilding:B [place] 18 [place].[facility] Repository 10/16/2017/10/17/19 [id number] Ambulatory [address] ing:LAB Repository 10/11/2017 [id number] Ambulatory BMSBuilding:[place] Repository 10/11/2017/10/12/19 [id number] Ambulatory BMSBuilding:B [place] 18 MS.[facility] Repository 10/03/2017 [id number] Ambulatory [facility] Repository 10/03/2017/10/05/19 [id number] Ambulatory [address] Repository 10/03/2017 [id number] Ambulatory [facility] ing:LAB.FUTUR Repository E 09/25/2017/09/26/19 [id number] Ambulatory BMSBuilding:B [place] 18 [place].[facility] Repository 09/21/2017/09/23/19 [id number] Ambulatory [address] Repository 09/17/2017/09/21/19 [id number] White, Loren Inpatient [address] ing:PCURoom: Repository AFU075Dht: 1 09/17/2017 [id number] White, Loren Ambulatory BMSBuilding:B [place] [facility] Repository 09/17/2017 [id number] White, Loren Ambulatory BMSBuilding:B [place].CF.[facility] Repository 09/17/2017 [id number] White, Loren Ambulatory BMSBuilding:B [place] [facility] Repository 09/17/2017 [id number] White, Ambulatory BMSBuilding:B [place].CF.[facility] Repository 09/17/2017 [id number] White, Ambulatory BMSBuilding:B [place].CF.[facility] Repository 09/17/2017 [id number] White, Ambulatory BMSBuilding:B [place] [facility] Repository 09/17/2017 [id number] White, Ambulatory BMSBuilding:B [place] [facility] Repository 09/17/2017 [id number] White, Ambulatory BMSBuilding:[address] [place] MS.CF.[facility] Repository 09/11/2017/09/12/19 [id number] Ambulatory [address] ing:LAB Repository 09/07/2017 [id number] Ambulatory [facility] Repository 09/07/2017/09/08/19 [id number] Ambulatory [address] Repository 08/21/2017/09/05/19 [id number] Ambulatory [address] Repository 08/21/2017/08/22/19 [id number] Ambulatory [address] ing:LAB Repository 08/17/2017 [id number] Ambulatory [facility] Repository 08/01/2017/08/02/19 [id number] Ambulatory [address] Repository 07/22/2017/07/26/19 [id number] Sridevi, Piter Inpatient [address] ing:NW2Ipjf: Repository JR935Tzg: 1 07/22/2017 [id number] Sridevi, Piter Ambulatory BMSBuilding:B [place] [facility] Repository 07/22/2017 [id number] Sridevi, Piter Ambulatory BMSBuilding:[place] [place].[facility] Repository 07/22/2017 [id number] Sridevi, Piter Ambulatory BMSBuilding:B [place] [facility] Repository 07/22/2017 [id number] Srdievi, Piter Ambulatory BMSBuilding:[place] Repository 07/22/2017/07/26/19 [id number] Ambulatory BMSBuilding:B [place] 18 MS.CF.[facility] Repository 07/17/2017/07/18/19 [id number] Ambulatory [address] ing:LAB Repository 07/13/2017 [id number] Ambulatory BMSBuilding:[place] MS.[facility] Repository 07/10/2017 [id number] Ambulatory [facility] ing:CVS Repository 07/10/2017 [id number] Ambulatory BMSBuilding:W [place] [facility] Repository 07/03/2017/07/04/19 [id number] Ambulatory BMSBuilding:B [place] 18 MS.[facility] Repository 06/21/2017/06/21/19 [id number] Ambulatory BMSBuilding:B [place] 18 MS.[facility] Repository 06/21/2017 [id number] Ambulatory BMSBuilding:B [place] Repository 06/20/2017/06/20/19 [id number] Emergency [address] ing:ED Repository 05/24/2017/05/24/19 [id number] Ambulatory [address] ing:LAB Repository 04/11/2017/04/23/20 [id number] Ambulatory [address] ing:LAB Repository 04/11/2017/04/11/20 [id number] Ambulatory BMSBuilding:B [place] 17 [place].[facility] Repository PAYERS PAYERS ENCOUNTER GUARANTOR PAYER SUBSCRIBER SOURCE 04/02/2018 ELIZABETH R Primary ELIZABETH R Nam [id number] FOREST Insurance:MORENO ANDRE: [facility] Cesar GUSTAFSON Number: [id number] [address]Scr: [id number] Repository Date:0928-02-59MS [address] (PV) [id number] HAILEY KAPLAN [phone]: 04/02/2018 Secondary NOT GIVENUNK [place] Insurance:SELF PAY [facility] Number: Effective Repository Date:2018-01-10 03/27/2018 ELIZABETH R Primary ELIZABETH R Nam [id number] E. Insurance:AETSHERYL WETZELB: [facility] Number: [id number] [facility] [id number] Repository [address] OF Date:2777-34-99FO [address] [address]Nme: [phone]: [phone] () 03/27/2018 Secondary NOT GIVENUNK [place] Insurance:SELF PAY [facility] Number: Effective Repository Date:2018-03-27 03/24/2018 ELIZABETH R Primary NOT GIVENUNK [place] [id number] E. Insurance:SELF PAY [facility] Number: Effective Repository AVEN[address] OF Date:2018-03-24 [facility] [place] [address]Mmw: () 03/23/2018 ELIZABETH R Primary ELIZABETH R [place] [id number] E. Insurance:AETSHERYL WETZELB: [facility] Number: [id number] Memorial Hospital [id number] Repository [address] OF Date:5552-39-64AZ [address] [address]Yhz: [phone]: [phone] () 03/23/2018 Secondary NOT GIVENUNK [place] Insurance:SELF PAY [facility] Number: Effective Repository Date:2018-03-23 03/22/2018 ELIZABETH R Primary ELIZABETH R [place] [id number] E. Insurance:AETSHERYL WETZELB: [facility] Number: [id number] Memorial Hospital [id number] Repository [address] OF Date:6743-38-76UH [facility] [id number] [place] [address]Szh: [phone]: [phone] (HP) 03/22/2018 Secondary NOT GIVENUNK Nam Insurance:SELF PAY [facility] Number: Effective Repository Date:2018-03-22 03/20/2018 ELIZABETH R Primary NOT GIVENUNK [place] [id number] E. Insurance:SELF PAY [facility] RDTHE Number: Effective Repository [address] OF Date:2018-03-20 [place], [place] [address]Jxn: (HP) 03/19/2018 ELIZABETH R Primary NOT GIVENUNK [place] [id number] E. Insurance:SELF PAY [facility] RDTHE Number: Effective Repository AVEN[address] OF Date:2018-03-19 [place], [place] [address]Qbz: (HP) 03/16/2018 ELIZABETH R Primary ELIZABETH R [place] [id number] E. Insurance:AETNA DUNNDOB: [facility] Number: [id number] Memorial Hospital [id number] Repository [address] OF Date:1645-37-39PZ [address] [address]Had: [phone]: [phone] () 03/16/2018 Secondary NOT GIVENUNK Nam Insurance:SELF PAY [facility] Number: Effective Repository Date:2018-03-16 03/14/2018 ELIZABETH R Primary ELIZABETH R [place] [id number] E. Insurance:AETNA DUNNDOB: [facility] Number: [id number] Memorial Hospital [id number] Repository [address] OF Date:2526-50-20QA [address] [address]Ycg: [phone]: [phone] (HP) 03/14/2018 Secondary NOT GIVENUNK Nam Insurance:SELF PAY [facility] Number: Effective Repository Date:2018-03-14 03/12/2018 ELIZABETH R Primary ELIZABETH R [place] [id number] E. Insurance:AETSHERYL WETZELB: [facility] Number: [id number] General Medical CenterT9BREffective Repository [address] OF Date:9648-72-73GA [facility] [id number] [place] [address] [place] [address]Coc: [phone]: [phone] (HP) 03/12/2018 Secondary NOT GIVENUNK [place] Insurance:SELF PAY [facility] Number: Effective Repository Date:2018-03-12 03/06/2018 ELIZABETH R Primary ELIZABETH R [place] [id number] E. Insurance:AETSHERYL WETZELB: [facility] Number: [id number] General Medical CenterT9BREffective Repository [address] OF Date:9772-25-44UU [address] [address]Fbj: [phone]: [phone] (HP) 03/06/2018 Secondary NOT GIVENUNK [place] Insurance:SELF PAY [facility] Number: Effective Repository Date:2018-03-06 03/02/2018 ELIZABETH R Primary ELIZABETH R [place] [id number] E. Insurance:AETSHERYL WETZELB: [facility] Number: [id number] General Medical CenterT9BREffective Repository [address] OF Date:5672-81-77AJ [facility] [id number] [place] [address] [place] [address]Gtb: [phone]: [phone] (HP) 03/02/2018 Secondary NOT GIVENUNK [place] Insurance:SELF PAY [facility] Number: Effective Repository Date:2018-03-02 02/28/2018 ELIZABETH R Primary ELIZABETH R [place] [id number] E. Insurance:AETSHERYL WETZELB: [facility] Number: [id number] General Medical CenterT9BREffective Repository AVEN[address] OF Date:5353-40-69KU [facility] ANDRES [id number] [place] [address] [place] [address]Nxd: [phone]: [phone] (HP) 02/28/2018 Secondary NOT GIVENUNK Nam Insurance:SELF PAY [facility] Number: Effective Repository Date:2018-02-28 02/21/2018 ELIZABETH R Primary ELIZABETH R [place] [id number] E. Insurance:AETNA PAPADOB: [facility] Number: [id number] General Medical CenterT9BREffective Repository AVEN[address] OF Date:1380-39-56ZC [facility] JUD[facility] [id number] [place] [address] [place] [address]Vgc: [phone]: [phone] (HP) 02/21/2018 Secondary NOT GIVENUNK [place] Insurance:SELF PAY [facility] Number: Effective Repository Date:2018-02-21 02/20/2018 ELIZABETH R Primary ELIZABETH R Nam [id number] E. Insurance:AETNA PAPADOB: [facility] Number: [id number] General Medical CenterT9BREffective Repository AVENUE OF Date:9556-28-42JY [facility] LEELEEWALTER P. REUTHER PSYCHIATRIC HOSPITALJEROMEDIGNITY [facility]ALTH [facility] [address] [place] [address] [place] [address]Uys: [phone]: [phone] (HP) 02/20/2018 Secondary NOT GIVENUNK [place] Insurance:SELF PAY [facility] Number: Effective Repository Date:2018-02-20 02/14/2018 ELIZABETH R Primary ELIZABETH R Nam [id number] E. Insurance:AETNA DAMARIB: [facility] Number: [id number] General Medical CenterT9BREffective Repository AVENUE OF Date:2748-78-07RF [facility] HOSPITALJOSÉ LUISUNM [facility] [address] [place] [address] [place] [address]Qax: [phone]: [phone] (HP) 02/14/2018 Secondary NOT GIVENUNK Nam Insurance:SELF PAY [facility] Number: Effective Repository Date:2018-02-14 02/09/2018 ELIZABETH R Primary ELIZABETH R [place] [id number] E. Insurance:AETNA PAPADOB: [facility] Number: [id number] Memorial Hospital [id number] Repository AVENUE OF Date:4221-88-69MP [facility] [address] [place] [address] 592[address]Qao: [address]NE: [phone] () 02/09/2018 Secondary NOT GIVENUNK [place] Insurance:SELF PAY [facility] Number: Effective Repository Date:2018-02-09 02/08/2018 ELIZABETH R Primary ELIZABETH R Nam [id number] E. Insurance:AETNA PAPADOB: [facility] Number: [id number] Memorial Hospital [id number] Repository AVEN[address] OF Date:1281-15-23SS [address] [address]Fze: [address]IH: [phone] () 02/08/2018 Secondary NOT GIVENUNK [place] Insurance:SELF PAY [facility] Number: Effective Repository Date:2018-02-08 02/07/2018 ELIZABETH R Primary ELIZABETH R Nam [id number] E. Insurance:AETNA PAPADOB: [facility] Number: [id number] Memorial Hospital [id number] Repository AVEN[address] OF Date:0800-95-62FO [address] [address]Nct: [address]CT: [phone] (HP) 02/07/2018 Secondary NOT GIVENUNK [place] Insurance:SELF PAY [facility] Number: Effective Repository Date:2018-02-07 01/31/2018 ELIZABETH R Primary ELIZABETH R Nam [id number] E. Insurance:AETSHERYL WETZELB: [facility] Number: [id number] Memorial Hospital [id number] Repository AVEN[address] OF Date:2726-34-73LD [facility] [address] [place] [address] 24515Qzw: [address]GH: [phone] (HP) 01/31/2018 Secondary NOT GIVENUNK Nam Insurance:SELF PAY [facility] Number: Effective Repository Date:2018-01-31 01/23/2018 ELIZABETH R Primary ELIZABETH R [place] [id number] E. Insurance:AETSHERYL WETZELB: [facility] Number: [id number] Memorial Hospital [id number] Repository [address]EN[address] OF Date:5117-03-12KW [facility] [address] [place] [address] 52418Qfh: [address]RG: [phone] (HP) 01/23/2018 Secondary NOT GIVENUNK [place] Insurance:SELF PAY [facility] Number: Effective Repository Date:2018-01-23 01/19/2018 ELIZABETH R Primary ELIZABETH R Nam [id number] E. Insurance:AETSHERYL WETZELB: [facility] Number: [id number] Memorial Hospital [id number] Repository AVEN[address] OF Date:5657-64-21SP [facility] [address] [place] [address]Anw: [address]VS: [phone] (HP) 01/19/2018 Secondary NOT GIVENUNK Nam Insurance:SELF PAY [facility] Number: Effective Repository Date:2018-01-19 01/17/2018 ELIZABETH R Primary NOT GIVENUNK Nam [id number] FOREST Insurance:SELF PAY [facility] [place] [address]Pbn: Number: Effective Repository Date:2018-01-17 () 01/15/2018 ELIZABETH R Primary ELIZABETH R [place] [id number] E. Insurance:AETNA DAMARIB: [facility] Number: [id number] Memorial Hospital [id number] Repository AVEN[address] OF Date:7519-68-20MC [facility] 44[address]ME[address] [place] [address] 50[address]Rvb: [address]MJ: [phone] () 01/15/2018 Secondary NOT GIVENUNK [place] Insurance:SELF PAY [facility] Number: Effective Repository Date:2018-01-15 01/10/2018 ELIZABETH R Primary ELIZABETH R [place] [id number] E. Insurance:AETNA PAPADOB: [facility] Number: [id number] Memorial Hospital [id number] Repository AVEN[address] OF Date:5412-41-98SD [facility] 625[address] [place] [address] 70[address]Dwn: [address]GL: [phone] () 01/10/2018 Secondary NOT GIVENUNK Nam Insurance:SELF PAY [facility] Number: Effective Repository Date:2018-01-10 01/08/2018 ELIZABETH R Primary ELIZABETH R [place] [id number] FOREST Insurance:AETNA PAPADOB: [facility] Number: [id number] Medical Center [address]Uxy: [id number] Repository Date:1455-97-49DT [facility] () [address] [place] [address]089[address]TK: 01/08/2018 Secondary NOT GIVENUNK [place] Insurance:SELF PAY [facility] Number: Effective Repository Date:2018-01-08 01/04/2018 ELIZABETH R Primary ELIZABETH R [place] [id number] FOREST Insurance:AETNA PAPADOB: Community Rubina GUSTAFSONicdanii Number: [id number] Medical Center 244[address]Sny: [id number] Repository Date:7613-32-92OH B[address] () 892486WGHAILEY GARCIA [address]QQ: 01/04/2018 Secondary NOT GIVENUNK Nam Insurance:SELF PAY [facility] Number: Effective Repository Date:2018-01-04 01/02/2018 ELIZABETH R Primary ELIZABETH R Nam [id number] FOREST Insurance:AETNA PAPADOB: [facility] Rubina GUSTAFSONicdanii Number: [id number] Medical Center 13979Wpu: [id number] Repository Date:6877-33-75MW [address] () [address] [address]JR: 01/02/2018 Secondary NOT GIVENUNK [place] Insurance:SELF PAY [facility] Number: Effective Repository Date:2017-12-26 01/01/2018 ELIZABETH R Primary ELIZABETH R Nam [id number] FOREST Insurance:AETNA DAMARIB: Rubina Stevensonicdanii Number: [id number] Medical Center 76129Jld: [id number] Repository Date:2010-51-21CF [address] () [address] [address]TQ: 01/01/2018 Secondary NOT GIVENUNK [place] Insurance:SELF PAY [facility] Number: Effective Repository Date:2018-01-01 01/01/2018 ELIZABETH R Primary ELIZABETH R Nam [id number] FOREST Insurance:AETNA PAPADOB: Rubina Stevensonicdanii Number: [id number] Medical Center 14359Jya: [id number] Repository Date:0002-40-34KU BOX (HP) 954773JWHAILEY GARCIA [address]KT: 01/01/2018 Secondary NOT GIVENUNK Nam Insurance:SELF PAY [facility] Number: Effective Repository Date:2018-01-01 01/01/2018 ELIZABETH R Primary ELIZABETH R [place] [id number] FOREST Insurance:AETNA PAPADOB: [facility] [place], [facility] Number: [id number] Medical Center [address]4628Ugh: [id number] Repository Date:3727-55-19UQ BOX (HP) 494974MKHAILEY GARCIA [address]UM: 01/01/2018 Secondary NOT GIVENUNK [place] Insurance:SELF PAY [facility] Number: Effective Repository Date:2018-01-01 01/01/2018 ELIZABETH R Primary ELIZABETH R Nam [id number] FOREST Insurance:AETNA PAPADOB: [facility] [place], [facility]Policy Number: [id number] Medical Center 62765Vyl: [id number] Repository Date:9452-47-78ZV BOX () 569233TAHAILEY GARCIA [address]LM: 01/01/2018 Secondary NOT GIVENUNK [place] Insurance:SELF PAY [facility] Number: Effective Repository Date:2018-01-01 12/28/2017 ELIZABETH R Primary ELIZABETH R Nam [id number] FOREST Insurance:AETNA PAPADOB: [facility] [place], [facility]Policy Number: [id number] Medical Center 38041Ybx: [id number] Repository Date:8678-94-25RP BOX () 922532ZXHAILEY GARCIA [address]OH: 12/28/2017 Secondary NOT GIVENUNK Nam Insurance:SELF PAY [facility] Number: Effective Repository Date:2017-12-28 12/26/2017 ELIZABETH R Primary ELIZABETH R [place] [id number] FOREST Insurance:AETNA PAPADOB: Community [place], NELSONPolicy Number: [id number] Medical Center [address]Ypz: [id number] Repository Date:0624-24-44JS BOX () 552600[place], [place] [address]AM: 12/26/2017 Secondary NOT GIVENUNK [place] Insurance:SELF PAY [facility] Number: Effective Repository Date:2017-12-26 12/22/2017 ELIZABETH R Primary ELIZABETH R Nam [id number] FOREST Insurance:AETNA PAPADOB: Community [place], NELSONPolicy Number: [id number] Medical Center 60566Jys: [id number] Repository Date:9617-97-58CY [address]OX () 760852[place], [place] [address]AE: 12/22/2017 Secondary NOT GIVENUNK Nam Insurance:SELF PAY [facility] Number: Effective Repository Date:2017-11-23 11/20/2017 ELIZABETH R Primary ELIZABETH R [place] [id number] FOREST Insurance:AETNA PAPADOB: Community [place], NELSONPolicy Number: [id number] Medical Center 12003Hzo: [id number] Repository Date:1635-87-52HW [address]OX () 386448[place]BSUMMER[place], [place] [address]II: 11/20/2017 Secondary NOT GIVENUNK Nam Insurance:SELF PAY [facility] Number: Effective Repository Date:2017-11-20 11/20/2017 ELIZABETH R Primary ELIZABETH Bright Nam [id number] FOREST Insurance:AETNA PAPADOB: Community [place], NELSONPolicy Number: [id number] Medical Center 65885Jws: [id number] Repository Date:5667-30-71TE BOX (HP) 645910BIHAILEY GARCIA [address]SL: 11/20/2017 Secondary NOT GIVENUNK Nam Insurance:SELF PAY [facility] Number: Effective Repository Date:2017-10-20 11/14/2017 ELIZABETH R Primary ELIZABETH R [place] [id number] FOREST Insurance:AETNA PAPADOB: Community [place], [facility]SONHoly Cross Hospitalicy Number: [id number] Medical Center 31372Pse: [id number] Repository Date:0945-51-76TS BOX (HP) 913630ODHAILEY GARCIA [address]GG: 11/14/2017 Secondary NOT GIVENUNK Nam Insurance:SELF PAY [facility] Number: Effective Repository Date:2017-11-14 10/16/2017 ELIAZBETH R Primary ELIZABETH R Nam [id number] FOREST Insurance:AETNA DUNNDOB: Community [place], [facility]ITALPolicy Number: [id number] Medical Center 54878Rkr: [id number] Repository Date:4241-40-73PW BOX (HP) 755905SDHAILEY GARCIA [address]WC: 10/16/2017 Secondary NOT GIVENUNK [place] Insurance:SELF PAY [facility] Number: Effective Repository Date:2017-10-16 10/16/2017 ELIZABETH R Primary ELIZABETH R Nam [id number] FOREST Insurance:AETNA DUNNDOB: Community [place], NELSONPolicy Number: [id number] Medical Center 76624Cgz: [id number] Repository Date:9259-16-53LR BOX (HP) 293945IWHAILEY GARCIA [address]FF: 10/16/2017 Secondary NOT GIVENUNK Nam Insurance:SELF PAY [facility] Number: Effective Repository Date:2017-09-21 10/11/2017 ELIZABETH R Primary ELIZABETH Novoa Nam [id number] FOREST Insurance:AETNA PAPADOB: [facility] Cesar GUSTAFSON Number: [id number] Medical Center 66647Ucb: [id number] Repository Date:7366-52-85PS BOX () 607906DCSUMMER[place], [place] [address]PH: 10/11/2017 Secondary NOT GIVENUNK [place] Insurance:SELF PAY [facility] Number: Effective Repository Date:2017-10-11 10/11/2017 ELIZABETH R Primary ELIZABETH Novoa [place] [id number] FOREST Insurance:AETNA PAPADOB: [facility] Rubina GUSTAFSONicdanii Number: [id number] Medical Center [address]Jqc: [id number] Repository Date:1504-30-93PH BOX () 572834CES[place], [place] [address]LG: 10/11/2017 Secondary NOT GIVENUNK Nam Insurance:SELF PAY [facility] Number: Effective Repository Date:2017-10-11 10/03/2017 ELIZABETH R Primary ELIZABETH Novoa Nam [id number] FOREST Insurance:AETNA PAPADOB: [facility] Rubina GUSTAFSONicdanii Number: [id number] Medical Center 10659Bif: [id number] Repository Date:1085-58-88NP BOX () 856528QSSUMMERHILL, [place] [address]DS: 10/03/2017 Secondary NOT GIVENUNK Nam Insurance:SELF PAY [facility] Number: Effective Repository Date:2017-10-03 09/25/2017 ELIZABETH R Primary ELIZABETH Novoa [place] [id number] FOREST Insurance:AETNA PAPADOB: [facility] Rubina GUSTAFSONicdanii Number: [id number] Medical Center 12923Uir: [id number] Repository Date:3596-73-42UA BOX (HP) 970431[place] [address]YY: 09/25/2017 Secondary NOT GIVENUNK [place] Insurance:SELF PAY Community [facility] Number: Effective Repository Date:2017-08-23 09/17/2017 ELIZABETH R Primary ELIZABETH Bright [place] [id number] FOREST Insurance:AETNA PAPADOB: Community [place] PERALTAPolicy Number: [id number] Medical Center 06914Nmm: [id number] Repository Date:3835-14-33FJ BOX (HP) 591510DQ [place] [address]DA: 09/17/2017 Secondary NOT GIVENUNK Nam Insurance:SELF PAY [facility] Number: Effective Repository Date:2017-09-17 09/17/2017 ELIZABETH R Primary ELIZABETH Bright [place] [id number] FOREST Insurance:AETNA PAPADOB: Community [place], NELSONPolicy Number: [id number] Medical Center 36143Fnx: [id number] Repository Date:4298-68-83KW BOX (HP) 616736KX [place] [address]BV: 09/17/2017 Secondary NOT GIVENUNK Nam Insurance:SELF PAY [facility] Number: Effective Repository Date:2017-09-17 09/17/2017 ELIZABETH R Primary ELIZABETH Bright MckoyNam [id number] FOREST Insurance:AETNA PAPADOB: Community [place], NELSONPolicy Number: [id number] Medical Center 16093Zab: [id number] Repository Date:3378-80-86MF BOX (HP) 610004YLHAILEY GARCIA [address]XB: 09/17/2017 Secondary NOT GIVENUNK [place] Insurance:SELF PAY [facility] Number: Effective Repository Date:2017-09-17 09/17/2017 ELIZABETH R Primary ELIZABETH Novoa Nam [id number] FOREST Insurance:AETNA PAPADOB: [facility] Cesar GUSTAFSON Number: [id number] Medical Center 29779Ear: [id number] Repository Date:9754-46-50SE BOX () 498489RJSUMMER[place], [place] [address]UL: 09/17/2017 Secondary NOT GIVENUNK [place] Insurance:SELF PAY [facility] Number: Effective Repository Date:2017-09-17 09/17/2017 ELIZABETH R Primary ELIZABETH R [place] [id number] FOREST Insurance:AETNA PAPADOB: [facility] Cesar GUSTAFSON Number: [id number] Medical Center 25501Pge: [id number] Repository Date:4614-14-43MU BOX () 334705[place], [place] [address]FR: 09/17/2017 Secondary NOT GIVENUNK Nam Insurance:SELF PAY [facility] Number: Effective Repository Date:2017-09-17 09/17/2017 ELIZABETH R Primary ELIZABETH Novoa Nam [id number] FOREST Insurance:AETNA PAPADOB: [facility] Cesar GUSTAFSON Number: [id number] Medical Center 95477Fpw: [id number] Repository Date:5568-18-83OQ BOX () 190344DSSUMMERHILL, [place] [address]LQ: 09/17/2017 Secondary NOT GIVENUNK Nam Insurance:SELF PAY [facility] Number: Effective Repository Date:2017-09-17 09/17/2017 ELIZABETH R Primary ELIZABETH Novoa [place] [id number] FOREST Insurance:AETNA PAPADOB: [facility]AN Number: [id number] Medical Center 44416Aws: [id number] Repository Date:4880-49-95IJ BOX (HP) 577118WQHAILEY GARCIA [address]KH: 09/17/2017 Secondary NOT GIVENUNK Nam Insurance:SELF PAY Community [facility] Number: Effective Repository Date:2017-09-17 09/17/2017 ELIZABETH R Primary ELIZABETH R Nam [id number] FOREST Insurance:AETNA PAPADOB: Community [place], NELSONPolicy Number: [id number] Medical Center 18499Neq: [id number] Repository Date:0455-62-22KO BOX (HP) 946812IKHAILEY GARCIA [address]RR: 09/17/2017 Secondary NOT GIVENUNK [place] Insurance:SELF PAY [facility] Number: Effective Repository Date:2017-09-17 09/17/2017 ELIZABETH R Primary ELIZABETH R [place] [id number] FOREST Insurance:AETNA PAPADOB: Community [place], [facility] Number: [id number] Medical Center 74844Kod: [id number] Repository Date:2573-05-35DU BOX (HP) 103007XHHAILEY GARCIA [address]IF: 09/17/2017 Secondary NOT GIVENUNK [place] Insurance:SELF PAY [facility] Number: Effective Repository Date:2017-09-17 09/11/2017 ELIZABETH R Primary ELIZABETH R [place] [id number] FOREST Insurance:AETNA PAPADOB: Community [place], [facility] Number: [id number] Medical Center 50854Hbj: [id number] Repository Date:5486-41-69GB BOX (HP) 736491LWHAILEY GARCIA [address]DA: 09/11/2017 Secondary NOT GIVENUNK [place] Insurance:SELF PAY [facility] Number: Effective Repository Date:2017-08-22 08/21/2017 ELIZABETH R Primary ELIZABETH R Nam [id number] FOREST Insurance:AETNA DAMARIB: [facility] Cesar GUSTAFSON Number: [id number] Medical Center 93793Mrk: [id number] Repository Date:1170-04-71CB BOX () 063753[place], [place] [address]ZZ: 08/21/2017 Secondary NOT GIVENUNK [place] Insurance:SELF PAY [facility] Number: Effective Repository Date:2017-07-24 07/22/2017 ELIZABETH R Primary ELIZABETH R Nam [id number] FOREST Insurance:AETNA DAMARIB: [facility] LINWOOD PERALTA NELSONEveliodanii Number: [id number] Medical Center 41881Elk: [id number] Repository Date:5761-22-13FJ BOX () 734838[place]WSUMMER[place], [place] [address]MF: 07/22/2017 Secondary NOT GIVENUNK Nam Insurance:SELF PAY [facility] Number: Effective Repository Date:2017-07-21 07/22/2017 ELIZABETH R Primary ELIZABETH R Nam [id number] FOREST Insurance:AETSHERYL WETZELB: [facility] LINWOOD PERALTA NELSONEveliodanii Number: [id number] Medical Center 45879Chj: [id number] Repository Date:2439-71-16RF BOX () 987753EASUMMER[place], [place] [address]JJ: 07/22/2017 Secondary NOT GIVENUNK [place] Insurance:SELF PAY [facility] Number: Effective Repository Date:2017-07-22 07/22/2017 ELIZABETH R Primary ELIZABETH R [place] [id number] FOREST Insurance:AETSHERYL WETZELB: [facility] [place] NELSONTunglenin Number: [id number] Medical Center 71506Ukv: [id number] Repository Date:4012-51-43WJ BOX (HP) 372586FW [place] [address]HW: 07/22/2017 Secondary NOT GIVENUNK [place] Insurance:SELF PAY [facility] Number: Effective Repository Date:2017-07-22 07/22/2017 ELIZABETH R Primary ELIZABETH R [place] [id number] FOREST Insurance:AETNA DUNNDOB: Community Rubina GUSTAFSONicdanii Number: [id number] Medical Center 85131Kuu: [id number] Repository Date:8625-69-93GM BOX (HP) 203007TY [place] [address]XF: 07/22/2017 Secondary NOT GIVENUNK [place] Insurance:SELF PAY [facility] Number: Effective Repository Date:2017-07-22 07/22/2017 ELIZABETH R Primary ELIZABETH R [place] [id number] FOREST Insurance:AETNA PAPADOB: [facility] Rubina GUSTAFSONicdanii Number: [id number] Medical Center 47927Qdt: [id number] Repository Date:8845-19-52EG BOX (HP) 435[address]CZ [place] [address]IP: 07/22/2017 Secondary NOT GIVENUNK Nam Insurance:SELF PAY [facility] Number: Effective Repository Date:2017-07-22 07/22/2017 ELIZABETH R Primary ELIZABETH R Nam [id number] FOREST Insurance:AETNA PAPADOB: [facility] Rubina PERALTAicdanii Number: [id number] Medical Center 45287Wjt: [id number] Repository Date:9055-65-96ON BOX (HP) 393625OE [place] [address]QR: 07/22/2017 Secondary NOT GIVENUNK [place] Insurance:SELF PAY Community [facility] Number: Effective Repository Date:2017-07-22 2017 ELIZABETH R Primary ELIZABETH R Nam [id number] FOREST Insurance:AETNA DUNNDOB: [facility] [place] [facility] Number: [id number] Medical Center 57250Wat: [id number] Repository Date:9288-74-90OD BOX () 910188MV HAILEY KAPLAN [address]XU: 2017 Secondary NOT GIVENUNK [place] Insurance:SELF PAY [facility] Number: Effective Repository Date:2017-05-26 07/13/2017 ELIZABETH R Primary ELIZABETH R [place] [id number] FOREST Insurance:MEDICARE DUNNDOB: [facility] JEROME, PART A BPolicy [id number] Medical Center 31574Ysz: Number: Repository [id number] () Date:2017-04-11 07/13/2017 Secondary ELIZABETH R Nam Insurance:ANTHEMPolic DUNNDOB: Community y Number: [id number] Hospital [id number] Repository Date:5280-99-25[address]QASTHPJ, [place] [address]ZE: 07/13/2017 Tertiary NOT GIVENUNK [place] Insurance:SELF PAY [facility] Number: Effective Repository Date:2017-04-11 07/10/2017 ELIZABETH R Primary ELIZABETH R [place] [id number] FOREST Insurance:AETNA DUNNDOB: [facility] [place], [facility]ITALPolicy Number: [id number] [address]Zbj: [id number] Repository Date:5493-56-94GM BOX () 693730SG HAILEY KAPLAN [address]EF: 07/10/2017 Secondary NOT GIVENUNK Nam Insurance:SELF PAY [facility] Number: Effective Repository Date:2017-06-21 07/10/2017 ELIZABETH R Primary ELIZABETH Bright [place] [id number] FOREST Insurance:AETNA PAPADOB: [facility] Rubina GUSTAFSONicdanii Number: [id number] Medical Center 06867Uyc: [id number] Repository Date:5935-36-25MK BOX () 043528XHSUMMERH[place], [place] [address]EO: 07/10/2017 Secondary NOT GIVENUNK [place] Insurance:SELF PAY [facility]: Effective Repository Date:2017-07-10 07/03/2017 ELIZABETH R Primary ELIZABETH Bright [place] [id number] FOREST Insurance:AETNA PAPADOB: [facility] Rubina GUSTAFSONicdanii Number: [id number] [address]Nog: [id number] Repository Date:[id number] () [id number] [address]QQ: 07/03/2017 Secondary NOT GIVENUNK Nam Insurance:SELF PAY [facility] Number: Effective Repository Date:2017-07-03 06/21/2017 ELIZABETH R Primary ELIZABETH Novoa [place] [id number] FOREST Insurance:AETNA PAPADOB: [facility] Rubina GUSTAFSONicdanii Number: [id number] Medical Center [address]Fci: [id number] Repository Date:5870-44-34[address] () [place], [place] [address]HZ: 06/21/2017 Secondary NOT GIVENUNK [place] Insurance:SELF PAY [facility]: Effective Repository Date:2017-04-01 06/21/2017 ELIZABETH R Primary ELIZABETH Novoa [place] [id number] FOREST Insurance:AETNA PAPADOB: [facility] Rubina GUSTAFSONicdanii Number: [id number] Medical Center [id number]: [id number] Repository Date:7171-49-11[address] () [id number] [address]HF: 06/21/2017 Secondary NOT GIVENUNK [place] Insurance:SELF PAY [facility] Number: Effective Repository Date:2017-06-21 06/20/2017 ELIZABETH R Primary ELIZABETH R Nam [id number] FOREST Insurance:AETNA DUNNDOB: [facility] Number: [id number] Medical Center [id number]: [id number] Repository Date:7609-48-24AB [address] () [place] [address]DQ: 06/20/2017 Secondary NOT GIVENUNK [place] Insurance:SELF PAY [facility] Number: Effective Repository Date:2017-06-20 05/24/2017 ELIZABETH R Primary ELIZABETH R Nam [id number] FOREST Insurance:AETNA DUNNDOB: [facility] Number: [id number] Medical Center [id number]: [id number] Repository Date:5685-04-12GJ [address] () [address], [place] [address]DP: 05/24/2017 Secondary NOT GIVENUNK [place] Insurance:SELF PAY [facility] Number: Effective Repository Date:2017-04-24 04/11/2017 ELIZABETH R Primary ELIZABETH R Nam [id number] FOREST Insurance:MEDICARE DUNNDOB: [facility] BPolicy [id number] Medical Center [address]Onn: Number: Repository [id number] () Date:2013-06-22 04/11/2017 Secondary ELIZABETH R Nam Insurance:ANTHEMPolic DUNNDOB: Community y Number: [id number] [id number] Repository Date:2849-67-08[address], [place] [address]AE: 04/11/2017 Tertiary NOT GIVENUNK [place] Insurance:SELF PAY [facility] Number: Effective Repository Date:2017-03-24 04/11/2017 ELIZABETH R Primary ELIZABETH R [place] [id number] FOREST Insurance:MEDICARE DUNNDOB: Community [facility] BPolicy [id number] [place] [address]Qtc: Number: Repository [id number] (HP) Date:2017-03-25 04/11/2017 Secondary ELIZABETH R Nam Insurance:ANTHEMPolic DUNNDOB: Community y Number: [id number] [id number] Repository Date:1535-56-91[address], [place] [address]XX: 04/11/2017 Tertiary NOT GIVENUNK Nam Insurance:SELF PAY [facility] Number: Effective Repository Date:2017-03-25
== END ==
LOC: OLS.AVED 05:00
PROVIDERS: Visit Provider Family Medicine
DX: D64.9 Anemia, unspecified (principal); N28.9 Disorder of kidney and ureter, unspecified; R60.9 Edema, unspecified
CPT/HCPCS: 36415; 80048; 85027

== ENCOUNTER 2018-03-23 18:43 | Emergency (ER) | payer MEDICARE, SELFPAY ==
[2018-03-23 18:44] VITALS: BP 121/56; PULSE 75; RESP 25; TEMP 36.3; O2SAT 93; BMI 43.4
--- NOTE | 2018-03-23 19:12 | EKG12_ITS ---
Test Reason : EDEMA Blood Pressure : / mmHG Vent. Rate : 063 BPM Atrial Rate : 063 BPM P-R Int : 196 ms QRS Dur : 096 ms QT Int : 488 ms P-R-T Axes : 036 082 064 degrees QTc Int : 499 ms Normal sinus rhythm Low voltage QRS Borderline ECG Confirmed by JONATHAN CUELLAR, FRANCINE ([id number]), online content editor CAT CONKLIN ([id number]) on 03/27/2018 2:08:39 PM Referred By: KOBE Confirmed By:FRANCINE CASTILLO MD
--- NOTE | 2018-03-23 19:20 | RAD_ITS ---
STUDY: X-RAY CHEST REASON FOR EXAM: Female, 67 years old. Dyspnea. Shortness of breath. 60 pound weight gain over the last 3 months. Generalized edema. TECHNIQUE: Single AP portable view of the chest. COMPARISON: September 17, 2017. FINDINGS: Telemetry wires overlie the chest. There is a mildly decreased inspiratory effort. There is perihilar interstitial prominence. Left pleural effusion cannot be ruled out. The heart is mildly enlarged. There is a stable left-sided cardiac pacemaker/ICD. Normal mediastinum. There is central vascular prominence. There is atherosclerotic calcification of the aortic arch with tortuosity. The thoracic spine is obscured by the mediastinum. There is degenerative osteoarthritis of the bilateral shoulders. There is no demonstrated abnormality of the visualized soft tissue structures of the upper abdomen. RAD/Chest 1 View (Portable) IMPRESSION: Mild CHF. Electronically Signed: Ze Galvan DO at 19:35 EST Tel [phone], Service support ,
[2018-03-23 19:57] LABS: Absolute Lymphocyte Count 0.36 X10^3/ul (0.83-4.51); Absolute Neutrophil Count 8.5 X10^3/uL (2.0-7.7); Basophil# 0.02 X10^3/uL; Basophil% 0.2 % (0-1); Eosinophil# 0.09 X10^3/uL; Eosinophils% 0.9 % (0-5); Hematocrit 27.6 % (37-47); Hemoglobin 8.1 g/dl (12.0-15.0); Lymphocyte # 0.36 X10^3/ul (4.0); Lymphocyte % 3.4 % (19-41); Mean Corp Hgb Conc 29.3 g/gl (32-36); Mean Corpuscular Hgb 27.9 pg (27.0-32.0); Mean Corpuscular Volume 95.2 fL (81-99); Mean Platelet Vol. 9.6 fl (6.2-12.0); Monocyte# 1.38 X10^3/uL; Monocyte% 13.2 % (0-10); Neutrophil % 81.3 % (47-70); Platelet Count 229 K/mm3 (150-450); RBC Distribution Width CV 15.6 % (11.6-14.6); RBC Distribution Width SD 54.3 fl (35.1-43.9); White Blood Count 10.5 K/mm3 (4.4-11.0)
[2018-03-23 20:01] LABS: International Normalized Ratio 2.3; POSITIVE COUNT NO; POSITIVE DIFFERENTIAL NO; POSITIVE MORPHOLOGY NO; Prothrombin Time (Protime)PT. 25.8 SECONDS (11.7-14.9)
[2018-03-23 20:13] LABS: Anion Gap 7 (5-15); BUN 94 mg/dL (7-18); BUN/Creat Ratio 38.4 RATIO (10-20); Calcium,Total 8.2 mg/dL (8.5-10.1); Chloride 95 mmol/L (98-107); Creatinine, Serum 2.45 mg/dL (0.55-1.02); EST Glomerular Filtration Rate 21 mL/min (>60); Est Glom Filt Rate - Afr Amer 25 mL/min (>60); Estimated Creatinine Clearance 20.29 ml/min; Glucose 158 mg/dL (74-106); Potassium 4.1 mmol/L (3.5-5.1); Sodium Level 137 mmol/L (136-145)
[2018-03-23 20:19] LABS: BNP,B-Type NATRIURETIC PEPTIDE 822.6 pg/mL (0-100)
--- NOTE | 2018-03-23 20:28 | ED.RN ---
THIS NURSE SPOKE WITH THE NURSE AT [facility], PT IS DNR-CCA
--- NOTE | 2018-03-23 20:45 | ED.DCSUM_ITS ---
- ER Visit Summary Date of Service: 03/23/18 Chief Complaint: Edema, shortness of breath History of Present Illness: The patient is a 67 F sent in from the [facility] with increased edema and shortness of breath for the past several months. Patient has had dialysis in the past and nephrology was reported called today and told to send the patient in. Patient reports a 60 pound weight gain over the past 3 months. Physical Examination: Blood pressure is 121/56, temperature 97.3, heart rate 75, respiratory rate 25, pulse ox 93% on 2 L nasal cannula. Patient is sitting upright in bed. She is speaking full sentences and is in no acute distress. Head neck examination is unremarkable. Heart is with diminished breath sounds at the bases. Abdomen is soft, obese, nontender. Extremity examination does reveal diffuse edema to both arms and legs. She has her lower legs and wraps. Test Results: Portable chest x-ray is consistent with mild CHF. EKG is sinus at 63 with no sign of acute ischemia. CBC was normal white count with a hemoglobin of 8.1 which is at baseline. Chemistry studies reveal BUN 94 and a creatinine 2.45. This again is consistent with her baseline. Her INR is 2.3. Troponin is negative. BNP is elevated at 822. Emergency Department Course and Treatment: She is vital signs have remained stable throughout her ED stay. She is currently on Zaroxolyn and Bumex. I spoke with her primary care physician. He requested that the patient be given 80 mg of IV Lasix and he will review her diuretics tomorrow. Treatment Plan: [] Disposition: Discharge Impression: CHF This note was generated with [employer] dictation software. It may contain incorrect words, spelling, and punctuation that were not noted in review of the chart prior to signing ED Disposition - Plan for ED Patient: Disposition: Home or Assisted Living Chief Complaint: Edema Instructions: ED CHF General Referrals: Michael Figueroa MD [STAFF PHYSICIAN] - As soon as possible
[2018-03-23] MEDS: Furosemide 100 MG/10 ML Vial 80 MG IV (21:12)
[2018-03-23 21:18] VITALS: BP 106/53; PULSE 72; RESP 20; O2SAT 96
--- NOTE | 2018-03-23 21:28 | ED.RN ---
RN CALLED THE AVENUE TO GIVE REPORT. STAFF HUNG UP THE LINE.
--- NOTE | 2018-03-23 21:35 | ED.RN ---
THIS RN CALLED REPORT TO THE [facility] GAVE REPORT TO
--- OUTSIDE RECORDS SUMMARY | 2018-05-18 16:59 | XMS RPT_ITS ---
:1950 Author Organization OHIP Support Name Relationship Address Phone Kirti Ho Unavailable [address] [place] [address] Cortney Womackleen Unavailable Unavailable + [place] [address] R Unavailable Unavailable Unavailable Ho, Kirti Unavailable [address] [place] [address] Cortney Womackleen Unavailable Unavailable + [place] [address] R Unavailable Unavailable Unavailable Ho, Kirti Unavailable [address] [place] [address] Vu Phoebe Unavailable Unavailable + [place] [address] R Unavailable Unavailable Unavailable HO, KIRTI Unavailable [address] [place] [address] VU, PHOEBE Unavailable Unavailable + [place] [address] R Unavailable Unavailable Unavailable Ho, Kirti Unavailable [address] [place] [address] Vu, Phoebe Unavailable Unavailable + [place] [address] R Unavailable Unavailable Unavailable Ho, Kirti Unavailable [address] [place] [address] Vu Phoebe Unavailable Unavailable + [place] [address] R Unavailable Unavailable Unavailable Ho, Kirti Unavailable [address] [place] [address] Vu Phoebe Unavailable Unavailable + [place] [address] R Unavailable Unavailable Unavailable Ho, Kirti Unavailable [address] [place] [address] Vu, Phoebe Unavailable Unavailable + [place] [address] R Unavailable Unavailable Unavailable Ho, Kirti Unavailable [address] [place] [address] Vu, Phoebe Unavailable Unavailable + [place] [address] R Unavailable Unavailable Unavailable Ho, Kirti Unavailable [address] [place] [address] Vu, Phoebe Unavailable Unavailable + [place] [address] R Unavailable Unavailable Unavailable Ho, Kirti Unavailable [address] [place] [address] Vu, Phoebe Unavailable Unavailable + [place] [address] R Unavailable Unavailable Unavailable Ho, Kirti Unavailable [address] [place] [address] Vu, Phoebe Unavailable Unavailable + [place] [address] R Unavailable Unavailable Unavailable Ho, Kirti Unavailable [address] [place] [address] Vu, Phoebe Unavailable Unavailable + [place] [address] R Unavailable Unavailable Unavailable Ho, Kirti Unavailable [address] [place] [address] Vu, Phoebe Unavailable Unavailable + [place] [address] R Unavailable Unavailable Unavailable Ho, Kirti Unavailable [address] [place] [address] Vu, Phoebe Unavailable Unavailable + [place] [address] R Unavailable Unavailable Unavailable Ho, Kirti Unavailable [address] [place] [address] Vu, Phoebe Unavailable Unavailable + [place] [address] R Unavailable Unavailable Unavailable Ho, Ikrti Unavailable [address] [place] [address] Vu, Phoebe Unavailable Unavailable + [place] [address] R Unavailable Unavailable Unavailable Ho, Kirti Unavailable [address] [place] [address] Vu, Phoebe Unavailable Unavailable + [place] [address] R Unavailable Unavailable Unavailable Ho, Kirit Unavailable [address] [place] [address] Vu, Phoebe Unavailable Unavailable + [place] [address] R Unavailable Unavailable Unavailable Ho, Kirti Unavailable [address] [place] [address] Vu, Phoebe Unavailable Unavailable + [place] [address] R Unavailable Unavailable Unavailable Ho, Kirti Unavailable [address] [place] [address] Vu, Phoebe Unavailable Unavailable + [place] [address] R Unavailable Unavailable Unavailable Ho, Kirti Unavailable [address] [place] [address] Vu, Phoebe Unavailable Unavailable + [place] [address] R Unavailable Unavailable Unavailable Ho, Kirti Unavailable [address] [place] [address] Vu, Phoebe Unavailable Unavailable + [place] [address] R Unavailable Unavailable Unavailable Ho, Kirti Unavailable [address] [place] [address] Vu, Phoebe Unavailable Unavailable + [place] [address] R Unavailable Unavailable Unavailable Ho, Kirti Unavailable [address] [place] [address] Vu, Phoebe Unavailable Unavailable + [place] [address] R Unavailable Unavailable Unavailable Ho, Kirti Unavailable [address] [place] [address] Vu, Phoebe Unavailable Unavailable + [place] [address] R Unavailable Unavailable Unavailable Ho, Kirti Unavailable [address] [place] [address] Vu, Phoebe Unavailable Unavailable + [place] [address] R Unavailable Unavailable Unavailable HO, KIRTI Unavailable [address] [place] [address] VU, PHOEBE Unavailable Unavailable + [place] [address] R Unavailable Unavailable Unavailable Ho, Kirti Unavailable [address] [place] [address] Vu, Phoebe Unavailable Unavailable + [place] [address] R Unavailable Unavailable Unavailable HO, KIRTI Unavailable [address] [place] [address] VU, PHOEBE Unavailable Unavailable + [place] [address] R Unavailable Unavailable Unavailable Ho, Kirti Unavailable [address] [place] [address] Vu, Phoebe Unavailable Unavailable + [place] [address] R Unavailable Unavailable Unavailable HO, KIRTI Unavailable [address] [place] [address] VU, PHOEBE Unavailable Unavailable + [place] [address] R Unavailable Unavailable Unavailable HO, KIRTI Unavailable [address] [place] [address] VU, PHOEBE Unavailable Unavailable + [place] [address] R Unavailable Unavailable Unavailable HO, KIRTI Unavailable [address] [place] [address] VU, PHOEBE Unavailable Unavailable + [place] [address] R Unavailable Unavailable Unavailable HO, KIRTI Unavailable [address] [place] [address] VU, PHOEBE Unavailable Unavailable + [place] [address] R Unavailable Unavailable Unavailable HO, KIRTI Unavailable [address] [place] [address] VU, PHOEBE Unavailable Unavailable + [place] [address] R Unavailable Unavailable Unavailable HO, KIRTI Unavailable [address] [place] [address] VU, PHOEBE Unavailable Unavailable + [place] [address] R Unavailable Unavailable Unavailable HO, KIRTI Unavailable [address] [place] [address] VU, PHOEBE Unavailable Unavailable + [place] [address] R Unavailable Unavailable Unavailable [facility], KIRTI Unavailable [address] [place] [address] VU, PHOEBE Unavailable Unavailable + [place] [address] R Unavailable Unavailable Unavailable [facility], KIRTI Unavailable [address] [place] [address] VU, PHOEBE Unavailable Unavailable + [place] [address] R Unavailable Unavailable Unavailable [facility], KIRTI Unavailable [address] [place] [address] VU, PHOEBE Unavailable Unavailable + [place] [address] R Unavailable Unavailable Unavailable [facility] , KIRTI Unavailable [address] [place] [address] VU, PHOEBE Unavailable Unavailable + [place] [address] R Unavailable Unavailable Unavailable [facility] , KIRTI Unavailable [address] [place] [address] CHELSEA WOMACKEN Unavailable Unavailable + [place] [address] R Unavailable Unavailable Unavailable HO, KIRTI Unavailable [address] [place] [address] CHELSEA WOMACKEN Unavailable Unavailable + [place] [address] R Unavailable Unavailable Unavailable [facility], KIRTI Unavailable [address] [place] [address] VU, PHOEBE Unavailable Unavailable + [place] [address] R Unavailable Unavailable Unavailable HO, KIRTI Unavailable [address] + [address] [place] [address] CHELSEA WOMACKEN Unavailable Unavailable + [place] [address] R Unavailable Unavailable Unavailable HO, KIRTI Unavailable [address] + [address] [place] [address] VU, PHOEBE Unavailable Unavailable + [place] [address] R Unavailable Unavailable Unavailable HO, KIRTI Unavailable [address] + [address] [place] [address] CHELSEA WOMACKEN Unavailable Unavailable + [place] [address] R Unavailable Unavailable Unavailable HO, KIRTI Unavailable [address] [place] [address] CHELSEA WOMACKEN Unavailable Unavailable + [place] [address] R Unavailable Unavailable Unavailable [facility], KIRTI Unavailable [address] + [address] [place] [address] CHELSEA WOMACKEN Unavailable Unavailable + [place] [address] R Unavailable Unavailable Unavailable [facility], KIRTI Unavailable [address] [place] [address] VU, PHOEBE Unavailable Unavailable + [place] [address] R Unavailable Unavailable Unavailable [facility] [place] , KIRTI Unavailable [address] [place] [address] VU, PHOEBE Unavailable Unavailable + [place] [address] R Unavailable Unavailable Unavailable [facility] , KIRTI Unavailable [address] [place] [address] VU, PHOEBE Unavailable Unavailable + [place] [address] R Unavailable Unavailable Unavailable HO, KIRTI Unavailable [address] + [address] [place] [address] VU, PHOEBE Unavailable Unavailable + [place] [address] R Unavailable Unavailable Unavailable HO, KIRTI Unavailable [address] + [address] [place] [address] VU, PHOEBE Unavailable Unavailable + [place] [address] R Unavailable Unavailable Unavailable HO, KIRTI Unavailable [address] + [address] [place] [address] VU, PHOEBE Unavailable Unavailable + [place] [address] R Unavailable Unavailable Unavailable HO, KIRTI Unavailable [address] + [address] [place] [address] VU, PHOEBE Unavailable Unavailable + [place] [address] R Unavailable Unavailable Unavailable HO, KIRTI Unavailable [address] [place] [address] R Unavailable Unavailable Unavailable HO, KIRTI Unavailable [address] + [address] [place] [address] VU, PHOEBE Unavailable Unavailable + [place] [address] R Unavailable Unavailable Unavailable HO, KIRTI Unavailable [address] + [address] [place] [address] VU, PHOEBE Unavailable Unavailable + [place] [address] R Unavailable Unavailable Unavailable HO, KIRTI Unavailable [address] + [address] [place] [address] PHOEBE WOMACK Unavailable Unavailable + [facility] [address] R Unavailable Unavailable Unavailable HO, KIRTI Unavailable [address] [place] [address] R Unavailable Unavailable Unavailable HO, KIRTI Unavailable [address] [place] [address] R Unavailable Unavailable Unavailable HO, KIRTI Unavailable [address] + [address] [place] [address] R Unavailable Unavailable Unavailable HO, KIRTI Unavailable [address] + [address] [place] [address] PHOEBE WOMACK Unavailable Unavailable + [place] [address] R Unavailable Unavailable Unavailable HO, KIRTI Unavailable [address] [place] [address] R Unavailable Unavailable Unavailable HO, KIRTI Unavailable [address] [place] [address] R Unavailable Unavailable Unavailable HO, KIRTI Unavailable [address] + [address] [place] [address] R Unavailable Unavailable Unavailable HO, KIRTI Unavailable [address] + [address] [place] [address] R Unavailable Unavailable Unavailable HO, KIRTI Unavailable [address] + [address] [place] [address] R Unavailable Unavailable Unavailable HO, KIRTI Unavailable [address] [place] [address] R Unavailable Unavailable Unavailable HO, KIRTI Unavailable [address] [place] [address] R Unavailable Unavailable Unavailable Care Team Providers Name Role Phone RON MACIAS (COMMUNITY RELATIONS DIRECTOR) Attending Unavailable WILLIAMS PAREKH Referring Unavailable WILLIAMS PAREKH Attending Unavailable WILLIAMS PAREKH Referring Unavailable ARIEL, AMAR Attending Unavailable ARIEL AMAR Referring Unavailable ARIEL AMAR Referring Unavailable RON MACIAS (COMMUNITY RELATIONS DIRECTOR) Attending Unavailable WILLIAMS PAREKH Referring Unavailable EMA CURRY (WEBSPHERE PROCESS SERVER DEVELOPER) Attending Unavailable Moodispaw, Michael Attending Unavailable Moodispaw, [...] Unavailable Talampas, Williams Primary Care Unavailable Sridevi, Ipter Consulting Unavailable Lane Light Attending Unavailable Sridevi, [...] ATTENDING STATUS SOURCE 04/05/2018 Unknown Z79.01 - penitentiary Michael Figueroa (current) use of Community anticoagulants [...] Unknown I10 - Essential Michael Figueroa Active [facility] (primary) hypertension Community / I10(ICD-10) Hospital Repository 03/23/2018 Unknown E78.5 - Michael Figueroa Active [facility] Hyperlipidemia, Community unspecified / Hospital E78.5(ICD-10) Repository 03/05/2018 Unknown I50.9 - Heart failure, Michael Figueroa Active [facility] unspecified / Community I50.9(ICD-10) Hospital Repository 02/28/2018 [...] M25.559 - Pain in Oleronnie, Octavio Active [facility] unspecified hip / Community M25.559(ICD-10) Hospital Repository 12/28/2017 Unknown M06.9 - Rheumatoid Micki, Active [facility] arthritis, unspecified [place] Community / M06.9(ICD-10) Hospital Repository 12/27/2017 Unknown I48.2 - Chronic atrial Ara, Lela Active [facility] fibrillation / Community I48.2(ICD-10) Hospital Repository 12/27/2017 Unknown I42.8 - Other Ara, Lela Active [facility] cardiomyopathies / Community I42.8(ICD-10) Hospital Repository 12/27/2017 Unknown 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 / Repository Z95.810(ICD-10) 12/27/2017 Unknown I47.2 - Ventricular AraLela Active [facility] tachycardia / Community I47.2(ICD-10) Hospital Repository 12/26/2017 Unknown I48.0 - Paroxysmal Moodispaw, Active [facility] atrial fibrillation / [facility] I48.0(ICD-10) Hospital Repository 12/26/2017 Unknown 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, Active [facility] Atherosclerotic heart [facility]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 Repository without angina pectoris / I25.10(ICD-10) 12/26/2017 Unknown I05.2 - Rheumatic Moodispaw, Active [facility] mitral stenosis with [facility] insufficiency / Hospital I05.2(ICD-10) Repository 12/26/2017 Unknown I35.0 - Nonrheumatic Mood[place], Active [facility] aortic (valve) [facility] stenosis / Hospital I35.0(ICD-10) Repository 12/26/2017 Unknown I47.1 - Moodispaw, Active [facility] Supraventricular [facility] tachycardia / Hospital I47.1(ICD-10) Repository 01/19/2017 Active Type 2 diabetes NA Active [place] mellitus with other Clinic Main circulatory [place] complications / Repository E11.59(ICD-10) 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/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 / Clinic Main Z79.4(ICD-10) [facility] Repository 03/08/2014 Active Chronic kidney NA Active [place] disease, stage 4 [facility] Main (severe) / [facility] N18.4(ICD-10) Repository 10/03/2017 Active Pain in unspecified NA Active [place] joint / M25.50(ICD-10) Clinic Main [facility] Repository 09/07/2017 Active Acute on chronic NA Active [place] diastolic (congestive) Clinic Main heart failure / [facility] I50.33(ICD-10) Repository 08/17/2017 Active Other retirement NA Active [place] (current) drug therapy Clinic Main / Z79.899(ICD-10) [facility] Repository 08/01/2017 Active Unknown / UNK(Unknown) RON MACIAS Active [place] (COMMUNITY RELATIONS DIRECTOR) Clinic Main [facility] Repository 09/06/2017 Unknown M79.89 - Other [place] Active [facility] specified soft tissue Community disorders / Hospital M79.89(ICD-10) Repository 06/21/2017 Unknown 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 Community / Z95.3(ICD-10) Hospital Repository 06/21/2017 Unknown R42 - Dizziness and Roof, Anibal H Active [facility] giddiness / Community R42(ICD-10) Hospital Repository PROCEDURES PROCEDURES No Procedure Records FoundRESULTS RESULTS PROGRESS Observed: 03/28/2018 Status: COMPLETED Source: [place] 9:21 AM [facility] REPOSITORY HNO ID: [id number] Author: Rashida Allen Service: (none) Author Type: Registered Nurse Type: Progress Notes Filed: 03/28/2018 9:21 AM Note Text: PRIMARY CARE COORDINATION QUICK NOTE Provider Action/FYI Pt 03/27/18 at [facility] Patient identified by name and date . Pt at [facility] yesterday, PROGRESS Observed: 03/28/2018 Status: COMPLETED Source: [place] 8:38 AM [facility] REPOSITORY HNO ID: [id number] Author: Makeda Curtis Cma Service: (none) Author Type: (none) Type: Progress Notes Filed: 03/28/2018 8:41 AM Note Text: I spoke with Mony at [facility] and she states that Elizabeth yesterday. CNPTOUTREACH Observed: 03/28/2018 Status: COMPLETED Source: [place] 12:00 AM [facility] REPOSITORY Patient Outreach (INTMWS) ELIZABETH HO ([id number]) 1950 F Date Time Provider Department 03/28/18 RASHIDA SALDANA INTMWS During your visit today, we recorded the following information about you: Rashida Lovell RN 03/28/2018 9:21 AM Signed PRIMARY CARE COORDINATION QUICK NOTE Provider Action/FYI Pt 03/27/18 at [facility] Patient identified by name and date . Pt at [facility] yesterday, Allergies As of Date: 03/28/2018 Noted Allergy Reaction AUGMENTIN (AMOXICILLIN-POT CLAVUL*2013 2 - Rash SULFA (SULFONAMIDE ANTIBIOTICS) 01/10/2005 4 - Hives VANCOMYCIN 08/26/2013 10 - Anaphylaxis Comments: Per pharmacist. Patient tolerating PO Vancomycin. on 01/07 pt in [facility] and had ld syndrome rxn [...] [N25.81] INVALID FOR* CAD (coronary artery disease), kaw coronary *INVALID FOR* More... More... Torsades de [...] (ICD) in*INVALID FOR* More... More... DVT prophylaxis [GLZ1723] INVALID FOR* More... Thrombocytopenia (HCC) [D69.6] INVALID [...] 03/27/2018 Status: F Source: [place] 2:08 PM [facility] REPOSITORY [facility] Cardiovascular Services [address] [place] [address] 12 Lead EKG 03/23/181926 MR#: [id number] Acct: [id number] Name: ELIZABETH HO Rep #: [id number] : 1950 67 From: Saji Hernandez MD [...] ECG Confirmed by SAJI HERNANDEZ MD ([id number]), purchasing expeditor CAT CONKLIN ([id number]) on 03/27/2018 2:08:39 PM Referred By: KOBE Confirmed By:SAJI HERNANDEZ MD 03/27/18 1408 Date Saji Hernandez MD CC: Kandi Chávez MD; Williams Parekh MD Signed PROTIME W/INR Collected: 03/27/2018 Status: F Source: [place] 7:20 AM [facility] REPOSITORY TYPE CODE TESTS RESULT OUT OF REFERENCE UNITS RANGE LAB L9200.1001 11.9-14.4 SEC High PROTIME ISTAT 55.8 Result Comment: Reference Range 11.9 - 14.4 LAB L9200.2000 High alert INR ISTAT 5.00 Result Comment: Critical Value > 3.5 Performed By: #### L9200.0000 #### [facility] Point of Care [address] [place], [place] [address] BASIC METABOLIC Collected: 03/27/2018 Status: F Source: [place] PROFILE (BMP) 7:15 AM [facility] REPOSITORY Order Comment: 136 TYPE CODE TESTS [...] GAP 18 Performed By: #### L500.2500 #### [facility] [address] [place], [place], [address] CBC-COMPLETE BLOOD CNT Collected: 03/24/2018 Status: F Source: [place] NO DIFF 6:30 AM [facility] REPOSITORY TYPE CODE TESTS RESULT OUT OF [...] MPV 9.4 Performed By: #### L100.0500 #### [facility] [address] [facility] [place], [address] EMERGENCY DEPARTMENT Observed: 03/23/2018 Status: F Source: [place] SUMMARY 10:56 PM [facility] REPOSITORY [facility] Medical Records Department [address] [place] [address] Emergency Department Summary 03/23/18 2045 MR#: [id number] Acct: [id number] Name: ELIZABETH HO Rep #: [id number] : 1950 67 From: Kandi Chávez MD PCP: Williams Parekh MD Status: DEP ER - ER Visit Summary Date of Service: 03/23/18 Chief Complaint: Edema, shortness of breath History of Present Illness: The patient is a 67 F sent in from the [facility] with increased edema and shortness of breath [...] Impression: CHF This note was generated with [employer] dictation software. It may contain incorrect words, [...] your Primary Care Provider. Call [facility] ([phone]) or report to the closest Emergency Room. Call 911 if necessary. 03/23/18 7153 <Electronically signed by Kandi Chávez MD> Date Kandi Chávez MD Cosigner Signature (If Indicated): Date CC: Williams Parekh MD DISCHARGE INSTRUCTION Observed: 03/23/2018 Status: F Source: [place] 8:46 PM [facility] REPOSITORY [facility] Medical Records Department [address] [place] [address] Discharge Instruction 03/23/182044 MR#: [id number] Acct: [id number] Name: ELIZABETH HO Rep #: [id number] : 1950 67 From: Kandi Chávez MD [...] your Primary Care Provider. Call [facility] ([phone]) or report to the closest Emergency Room. Call 911 if necessary. 03/23/182045 <Electronically signed by Kandi Chávez MD> Date Kandi Chávez MD Cosigner Signature (If Indicated): Date CC: Williams Parekh MD CBC W/DIFF, AUTOMATED Collected: 03/23/2018 Status: F Source: [place] 7:43 PM [facility] REPOSITORY TYPE CODE TESTS RESULT OUT OF [...] Lymph 0.36 Performed By: #### L100.0100 #### [facility] [address] [facility] [place], [place], [address] PROTHROMBIN TIME W/INR Collected: 03/23/2018 Status: F Source: [place] 7:43 PM [facility] REPOSITORY TYPE CODE TESTS RESULT OUT OF RANGE REFERENCE UNITS LAB L300.4150 11.7-14.9 SECONDS High PROTIME 25.8 LAB L300.4200 Normal INR 2.3 Performed By: #### L300.3900 #### [facility] [address] [facility] [place], [address] BASIC METABOLIC Collected: 03/23/2018 Status: F Source: [place] PROFILE (BMP) 7:43 PM [facility] REPOSITORY TYPE CODE TESTS RESULT OUT OF [...] 7 Performed By: #### L500.2500, L501.4010 #### [facility] [address] [facility] [place], [place], [address] TROPONIN-I Collected: 03/23/2018 Status: F Source: [place] 7:43 PM [facility] REPOSITORY TYPE CODE TESTS RESULT OUT OF RANGE REFERENCE UNITS LAB L501.4010 <0.045 ng/mL Normal < 0.015 TROPONIN-I Result Comment: TROPONIN-I EXPECTED VALUES <0.045 Negative 0.045 - 0.590 Consistent with Cardiac Damage > OR = 0.600 Critical Value Not every elevated troponin is indicative of ME. These values should be used with clinical judgement in examining the patient's clinical picture for diagnosis. To establish a diagnosis of ME versus myocardial injury, there must be a demonstrated rise and/or fall in the troponin values, in addition to ischemic symptoms, EKG changes, new regional wall motion abnormality, and/or angiographical evidence. PLEASE NOTE: REFERENCE RANGES EDITED 17 Performed By: #### L500.2500, L501.4010 #### [facility] [address] [place], [place], [address] BNP,B-TYPE NATRIURETIC Collected: 03/23/2018 Status: F Source: [place]PT[place] 7:43 PM [facility] REPOSITORY TYPE CODE TESTS RESULT OUT OF RANGE REFERENCE UNITS LAB L503.6620 0-100 pg/mL High B-TYPE 822.6 LILY PEP Performed By: #### L503.6620 #### [facility] [address] [place], [address] CHEST 1 VIEW Observed: 03/23/2018 Status: F Source: [place] (PORTABLE) 7:14 PM [facility] HOSPITAL REPOSITORY [facility] Imaging Services [address] [place] [address] Chest 1 View (Portable) MR#: [id number] Acct: [id number] Name: ELIZABETH HO Rep #: [id number] : 1950 F 67 From: Ze Galvan DO PCP: Williams Parekh MD Status: REG ER Study: Chest 1 View (Portable) Date of Exam: 03/23/18 Exam# [id number] Ordering Dr: Kandi Chávez MD STUDY: X-RAY [...] Ze Galvan DO at 19:35 EST Tel [phone], Service support , CC: Kandi Chávez MD; Williams Parekh MD Architectural Draftsman: Signed CBC-COMPLETE BLOOD CNT Collected: 03/22/2018 Status: F Source: [place] NO DIFF 6:35 AM [facility] REPOSITORY TYPE CODE TESTS RESULT OUT OF [...] MPV 10.2 Performed By: #### L100.0500 #### [facility] [address] [place], [place], [address] BASIC METABOLIC Collected: 03/22/2018 Status: F Source: [place] PROFILE (BMP) 6:35 AM [facility] REPOSITORY TYPE CODE TESTS RESULT OUT OF [...] GAP 7 Performed By: #### L500.2500 #### [facility] [address] [place], [address] PROGRESS Observed: 03/21/2018 Status: COMPLETED Source: [place] 8:55 AM [facility] REPOSITORY HNO ID: [id number] Author: Makeda Curtis Cma Service: (none) Author Type: (none) Type: Progress Notes Filed: 03/21/2018 8:57 AM Note Text: Left message for to return call #[phone] Patient still residing at [facility] CBC-COMPLETE BLOOD CNT Collected: 03/20/2018 Status: F Source: [place] NO DIFF 5:35 AM [facility] REPOSITORY Order Comment: 136 TYPE CODE TESTS [...] MPV 10.8 Performed By: #### L100.0500 #### [facility] [address] [place], [place], [address] BASIC METABOLIC Collected: 03/20/2018 Status: F Source: NAM PROFILE (BMP) 5:35 AM [facility] REPOSITORY Order Comment: 136 TYPE CODE TESTS [...] GAP 6 Performed By: #### L500.2500 #### [facility] [address] [place], [place], [id number] PROTHROMBIN TIME W/INR Collected: 03/20/2018 Status: F Source: [place] 5:35 AM [facility] REPOSITORY Order Comment: 136 TYPE CODE TESTS RESULT OUT OF RANGE REFERENCE UNITS LAB L300.4150 11.7-14.9 SECONDS High PROTIME 25.0 LAB L300.4200 Normal INR 2.3 Performed By: #### L300.3900 #### [facility] [address] [place], [address] PROTIME W/INR Collected: 03/19/2018 Status: F Source: [place] FINGER[place]ICK 6:15 AM [facility] REPOSITORY TYPE CODE TESTS RESULT OUT OF REFERENCE UNITS RANGE LAB L9200.1001 11.9-14.4 SEC High PROTIME ISTAT 26.9 Result Comment: Reference Range 11.9 - 14.4 LAB L9200.2000 Normal INR ISTAT 2.30 Result Comment: Critical Value > 3.5 Performed By: #### L9200.0000 #### [facility] Point of Care [address] [place] [address] PROTHROMBIN TIME W/INR Collected: 03/16/2018 Status: F Source: [place] 10:45 AM [facility] REPOSITORY Order Comment: RM: 136 TYPE CODE TESTS RESULT OUT OF REFERENCE UNITS RANGE LAB L300.4150 11.7-14.9 SECONDS High PROTIME 39.1 LAB L300.4200 High alert INR 4.0 Result Comment: CRITICAL VALUE VERIFIED. CALLED TO NIC [facility] [place] 03/16/18 1249 Cyndie Lanier. RESULTS READ BACK BY SAME . Performed By: #### L300.3900 #### [facility] [address] [place], [address] COMPREHENSIVE METABOLIC Collected: 03/16/2018 Status: F Source: [facility] 10:45 AM [facility] REPOSITORY Order Comment: RM: 136 TYPE CODE [...] GAP 10 Performed By: #### L500.4050 #### [facility] [address] [place], [place], [id number] PROTIME W/INR Collected: 03/16/2018 Status: F Source: [place] 5:37 AM [facility] REPOSITORY TYPE CODE TESTS RESULT OUT OF REFERENCE UNITS RANGE LAB L9200.1001 11.9-14.4 SEC High PROTIME ISTAT 48.4 Result Comment: Reference Range 11.9 - 14.4 LAB L9200.2000 High alert INR ISTAT 4.30 Result Comment: Critical Value > 3.5 Performed By: #### L9200.0000 #### [facility] Point of Care [address] [place], [place] [id number] PROGRESS Observed: 03/14/2018 Status: COMPLETED Source: [place] 8:57 AM [facility] REPOSITORY HNO ID: [id number] Author: Makeda Ever Valle Service: (none) Author Type: (none) Type: Progress Notes Filed: 03/14/2018 8:57 AM Note Text: No discharge plans in place at this time. PROTHROMBIN TIME W/INR Collected: 03/14/2018 Status: F Source: NAM 6:05 AM [facility] REPOSITORY Order Comment: 136 TYPE CODE TESTS RESULT OUT OF REFERENCE UNITS RANGE LAB L300.4150 11.7-14.9 SECONDS High PROTIME 40.9 LAB L300.4200 High alert INR 4.2 Result Comment: CRITICAL VALUE VERIFIED. CALLED TO GWEN FRANCISCO 03/14/18 0935 Reji Taylor. RESULTS READ BACK BY SAME. Performed By: #### L300.3900 #### [facility] [address] [facility] [place], [place], [id number] CBC-COMPLETE BLOOD CNT Collected: 03/12/2018 Status: F Source: NAM NO DIFF 5:25 AM [facility] REPOSITORY Order Comment: ROOM 136 TYPE CODE [...] MPV 10.4 Performed By: #### L100.0500 #### [facility] [address] [place], [place], [address] BASIC METABOLIC Collected: 03/12/2018 Status: F Source: NAM PROFILE (BMP) 5:25 AM [facility] REPOSITORY Order Comment: ROOM 136 TYPE CODE [...] GAP 5 Performed By: #### L500.2500 #### [facility] [address] [place], [place], [address] PROTHROMBIN TIME W/INR Collected: 03/12/2018 Status: F Source: NAM 5:25 AM [facility] REPOSITORY Order Comment: ROOM 136 TYPE CODE TESTS RESULT OUT OF REFERENCE UNITS RANGE LAB L300.4150 11.7-14.9 SECONDS High PROTIME 43.9 LAB L300.4200 High alert INR 4.6 Result Comment: CRITICAL VALUE VERIFIED. CALLED TO JACK FRANCISCO 03/12/18 0841 Reji Taylor. RESULTS READ BACK BY SAME. Performed By: #### L300.3900 #### [facility] [address] [place], [place], [address] PROGRESS Observed: 03/07/2018 Status: COMPLETED Source: [place] 9:54 AM [facility] REPOSITORY HNO ID: [id number] Author: Makeda Curtis Cma Service: (none) Author Type: (none) Type: Progress Notes Filed: 03/07/2018 9:54 AM Note Text: No discharge plans in place at this time. BASIC METABOLIC Collected: 03/06/2018 Status: F Source: NAM PROFILE (BMP) 6:25 AM [facility] REPOSITORY Order Comment: 136 TYPE CODE TESTS [...] GAP 6 Performed By: #### L500.2500 #### [facility] [address] [place], [address] CBC-COMPLETE BLOOD CNT Collected: 03/06/2018 Status: F Source: NAM NO DIFF 6:25 AM [facility] REPOSITORY TYPE CODE TESTS RESULT OUT OF [...] MPV 10.5 Performed By: #### L100.0500 #### [facility] [address] [place], [address] PROTIME W/INR Collected: 03/02/2018 Status: F Source: [place] 5:52 AM [facility] REPOSITORY TYPE CODE TESTS RESULT OUT OF REFERENCE UNITS RANGE LAB L9200.1001 11.9-14.4 SEC High PROTIME ISTAT 26.7 Result Comment: Reference Range 11.9 - 14.4 LAB L9200.2000 Normal INR ISTAT 2.30 Result Comment: Critical Value > 3.5 Performed By: #### L9200.0000 #### [facility] Point of Care [address] [place], [place] [address] PROGRESS Observed: 03/01/2018 Status: COMPLETED Source: [place] 10:00 AM [facility] REPOSITORY HNO ID: [id number] Author: Makeda Curtis Cma Service: (none) Author Type: (none) Type: Progress Notes Filed: 03/01/2018 10:01 AM Note Text: No discharge plans in place at this time. CBC-COMPLETE BLOOD CNT Collected: 02/28/2018 Status: F Source: NAM NO DIFF 6:20 AM [facility] REPOSITORY Order Comment: RM 136 TYPE CODE [...] MPV 10.8 Performed By: #### L100.0500 #### [facility] [address] [place], [place], [address] PROGRESS Observed: 02/21/2018 Status: COMPLETED Source: [place] 9:23 AM [facility] REPOSITORY HNO ID: [id number] Author: Makeda Curtis Cma Service: (none) Author Type: (none) Type: Progress Notes Filed: 02/21/2018 9:23 AM Note Text: No plans in place at this time. PROTHROMBIN TIME W/INR Collected: 02/20/2018 Status: F Source: NAM 5:50 AM [facility] REPOSITORY Order Comment: ROOM 136 TYPE CODE TESTS RESULT OUT OF RANGE REFERENCE UNITS LAB L300.4150 11.7-14.9 SECONDS High PROTIME 25.6 LAB L300.4200 Normal INR 2.3 Performed By: #### L300.3900 #### [facility] [address] [place], [address] BASIC METABOLIC Collected: 02/20/2018 Status: F Source: NAM PROFILE (BMP) 5:50 AM [facility] REPOSITORY Order Comment: ROOM 136 TYPE CODE [...] GAP 7 Performed By: #### L500.2500 #### [facility] [address] [place], [address] CBC-COMPLETE BLOOD CNT Collected: 02/20/2018 Status: F Source: [place] NO DIFF 5:50 AM [facility] REPOSITORY Order Comment: ROOM 136 TYPE CODE [...] MPV 10.6 Performed By: #### L100.0500 #### [facility] [address] [place], [place], [address] HEMOGLOBIN A1C Collected: 02/20/2018 Status: F Source: NAM 5:50 AM [facility] REPOSITORY TYPE CODE TESTS RESULT OUT OF RANGE REFERENCE UNITS LAB L501.9985 4.2-6.3 % High HGB A1C 7.3 Performed By: #### L501.9985 #### [facility] [address] [place], [address] PROGRESS Observed: 02/15/2018 Status: COMPLETED Source: [place] 9:13 AM [facility] REPOSITORY HNO ID: [id number] Author: Makeda Curtis Cma Service: (none) Author Type: (none) Type: Progress Notes Filed: 02/15/2018 9:15 AM Note Text: No discharge plans in place at this time. CBC-COMPLETE BLOOD CNT Collected: 02/14/2018 Status: F Source: NAM NO DIFF 8:20 AM [facility] REPOSITORY TYPE CODE TESTS RESULT OUT OF [...] MPV 10.5 Performed By: #### L100.0500 #### [facility] [address] [place], [address] PROTIME W/INR Collected: 02/09/2018 Status: F Source: [place] 7:01 AM [facility] REPOSITORY TYPE CODE TESTS RESULT OUT OF REFERENCE UNITS RANGE LAB L9200.1001 11.9-14.4 SEC High PROTIME ISTAT 31.8 Result Comment: Reference Range 11.9 - 14.4 LAB L9200.2000 Normal INR ISTAT 2.80 Result Comment: Critical Value > 3.5 Performed By: #### L9200.0000 #### [facility] Point of Care [address] [place], [place] [address] CBC-COMPLETE BLOOD CNT Collected: 02/08/2018 Status: F Source: NAM NO DIFF 7:05 AM [facility] REPOSITORY TYPE CODE TESTS RESULT OUT OF [...] MPV 10.2 Performed By: #### L100.0500 #### [facility] [address] [place], [place], [id number] BASIC METABOLIC Collected: 02/08/2018 Status: F Source: NAM PROFILE (BMP) 7:05 AM [facility] REPOSITORY TYPE CODE TESTS RESULT OUT OF [...] GAP 5 Performed By: #### L500.2500 #### [facility] [address] [place], [address] PROGRESS Observed: 02/07/2018 Status: COMPLETED Source: [place] 4:34 PM [facility] REPOSITORY HNO ID: [id number] Author: Rashida Allen Service: (none) Author Type: Registered Nurse Type: Progress Notes Filed: 02/07/2018 4:47 PM Note Text: PRIMARY CARE COORDINATION FOLLOW-UP NOTE Provider Action/FYI Pt went to [facility] with hip pain and debility after her appt her in Dec. She is currently in rehab at the [facility] and will be moving into the [place] section there after rehab. Patient identified by name and date of . YES Spoke to patient Summary: Pt is in the [facility]. [place] there as [place]. She will call when she is out for continuing care. Concerns: Her hip pain is lessening with therapy. She was in [facility] 3 days after her appt with pain and went to the [facility] for rehab. Parts Sales Representative plan for next outreach: Will follow up upon D/C from [facility] Signature Rashida Allen RN Ambulatory [employer] And Soil Scientist [facility] February 07, 2018 PROTIME W/INR Collected: 02/07/2018 Status: F Source: [place] 10:23 AM [facility] REPOSITORY TYPE CODE TESTS RESULT OUT OF REFERENCE UNITS RANGE LAB L9200.1001 11.9-14.4 SEC High PROTIME ISTAT 35.5 Result Comment: Reference Range 11.9 - 14.4 LAB L9200.2000 Normal INR ISTAT 3.10 Result Comment: Critical Value > 3.5 Performed By: #### L9200.0000 #### [facility] Point of Care [address] [place] [address] CNPTOUTREACH Observed: 02/07/2018 Status: COMPLETED Source: [place] 12:00 AM [facility] REPOSITORY Patient Outreach (INTMWS) ELIZABETH HO ([id number]) 1950 F Date Time Provider Department 02/07/18 RASHIDA SALDANA During your visit today, we recorded the following information about you: Rashida Lovell RN 02/07/2018 4:47 PM Signed PRIMARY CARE COORDINATION FOLLOW-UP NOTE Provider Action/FYI Pt went to [facility] with hip pain and debility after her appt her in Dec. She is currently in rehab at the [facility] and will be moving into the [place] section there after rehab. Patient identified by name and date of . YES Spoke to patient Summary: Pt is in the [facility]. [place] moving [place] there as well. She will call when she is out for continuing care. Concerns: Her hip pain is lessening with therapy. She was in [facility] 3 days after her appt with pain and went to the [facility] for rehab. Parts Sales Representative plan for next outreach: Will follow up upon D/C from [place] Signature Rashida Allen RN Ambulatory Crop And Soil Scientist Internal Medicine [facility] February 07, [address] [facility] 02/15/2018 9:15 AM Signed No discharge plans in place at this time. Makeda Curtis [facility] 02/21/2018 9:23 AM Signed No plans in place at this time. Makeda Curtis [facility] 03/01/2018 10:01 AM Signed No discharge plans in place at this time. Makeda Curtis [facility] 03/07/2018 9:54 AM Signed No discharge plans in place at this time. Makeda Curtis [facility] 03/14/2018 8:57 AM Signed No discharge plans in place at this time. Makeda Curtis [facility] 03/21/2018 8:57 AM Signed Left message for to return call #[phone] Patient still residing at [facility] Makeda Curtis [facility] 03/28/2018 8:41 AM Signed I spoke with Mony at [facility] and she states that Elizabeth yesterday. Allergies As of Date: 02/07/2018 Noted Allergy Reaction AUGMENTIN (AMOXICILLIN-POT CLAVUL*2013 2 - Rash SULFA (SULFONAMIDE ANTIBIOTICS) 01/10/2005 4 - Hives VANCOMYCIN 08/26/2013 10 - Anaphylaxis Comments: Per pharmacist. Patient tolerating PO Vancomycin. on 01/07 pt in [facility] and had ld syndrome rxn [...] [N25.81] INVALID FOR* CAD (coronary artery disease), kaw coronary *INVALID FOR* More... More... Torsades de [...] (ICD) in*INVALID FOR* More... More... DVT prophylaxis [QFU2431] INVALID FOR* More... Thrombocytopenia (HCC) [D69.6] INVALID [...] F Source: NAM PROFILE (BMP) 6:15 AM [facility] REPOSITORY TYPE CODE TESTS RESULT OUT OF [...] GAP 8 Performed By: #### L500.2500 #### [facility] [address] [place], [place], [address] PROTHROMBIN TIME W/INR Collected: 01/31/2018 Status: F Source: NAM 6:15 AM [facility] REPOSITORY Order Comment: ROOM 136 TYPE CODE TESTS RESULT OUT OF RANGE REFERENCE UNITS LAB L300.4150 11.7-14.9 SECONDS High PROTIME 28.5 LAB L300.4200 Normal INR 2.7 Performed By: #### L300.3900 #### [facility] [address] [facility] [place], [address] CBC-COMPLETE BLOOD CNT Collected: 01/31/2018 Status: F Source: NAM NO DIFF 6:15 AM [facility] REPOSITORY Order Comment: ROOM 136 TYPE CODE [...] MPV 10.8 Performed By: #### L100.0500 #### [facility] [address] [place], [place], [address] PROTHROMBIN TIME W/INR Collected: 01/23/2018 Status: F Source: [place] 6:10 AM [facility] REPOSITORY Order Comment: ORDERED RENAL,CBC,PTHIN,VITD,PLATELET; ORDERED BMP,CBC,PT TYPE CODE TESTS RESULT OUT OF RANGE REFERENCE UNITS LAB L300.4150 11.7-14.9 SECONDS High PROTIME 34.6 LAB L300.4200 Normal INR 3.4 Performed By: #### L300.3900 #### [facility] [address] [place], [address] CBC-COMPLETE BLOOD CNT Collected: 01/23/2018 Status: F Source: [place] NO DIFF 6:10 AM [facility] REPOSITORY Order Comment: ORDERED RENAL,CBC,PTHIN,VITD,PLATELET; ORDERED BMP,CBC,PT [...] MPV 10.5 Performed By: #### L100.0500 #### [facility] [address] [place], [address] VITAMIN D,25 HYDROXY Collected: 01/23/2018 Status: F Source: NAM 6:10 AM [facility] REPOSITORY Order Comment: ORDERED RENAL,CBC,PTHIN,VITD,PLATELET; ORDERED BMP,CBC,PT [...] (>250 nmol/L) Performed By: #### L506.1000 #### [facility] [address] [facility] [address] [place], [place], [address] RENAL PROFILE Collected: 01/23/2018 Status: F Source: [place] 6:10 AM [facility] REPOSITORY Order Comment: ORDERED RENAL,CBC,PTHIN,VITD,PLATELET; ORDERED BMP,CBC,PT [...] at: 09:28:02 01/23/2018 by: [facility] LAB L501.1100 0.55-1.02 mg/dL CREAT,SERUM High [...] CO2 30.0 Performed By: #### L500.3600 #### [facility] [address] [facility] [place], [address] PTHIN Collected: 01/23/2018 Status: F Source: NAM 6:10 AM [facility] REPOSITORY Order Comment: ORDERED RENAL,CBC,PTHIN,VITD,PLATELET; ORDERED BMP,CBC,PT TYPE CODE TESTS RESULT OUT OF RANGE REFERENCE UNITS LAB L509.1000 18.4-80.1 pg/mL High PTHIN 219.0 Performed By: #### L509.1000 #### [facility] [address] [facility] [place], [address] PROTEIN+CREATININE Collected: Status: F Source: NAM RATIO,URINE 01/22/2018 9:00 PM [facility] REPOSITORY TYPE CODE TESTS RESULT OUT OF RANGE REFERENCE UNITS LAB L501.1200 NO RANGE EST. mg/dL Normal UR CREAT 29.60 LAB L501.1930 <11.9 mg/dL High 16.3 PROTEIN,UR.R AN. LAB L501.1940 0-200 mg/g CRE High PROT:CRE 551 RATIO Performed By: #### L501.0900 #### [facility] [address] [place], [address] PROTIME W/INR Collected: 01/19/2018 Status: F Source: [place] 6:43 AM [facility] REPOSITORY TYPE CODE TESTS RESULT OUT OF REFERENCE UNITS RANGE LAB L9200.1001 11.9-14.4 SEC High PROTIME ISTAT 31.5 Result Comment: Reference Range 11.9 - 14.4 LAB L9200.2000 Normal INR ISTAT 2.80 Result Comment: Critical Value > 3.5 Performed By: #### L9200.0000 #### [facility] Point of Care [address] [place] [address] PROGRESS Observed: 01/18/2018 Status: COMPLETED Source: [place] 8:53 AM [facility] REPOSITORY HNO ID: [id number] Author: Rashida Allen Service: (none) Author Type: [...] to patient for Care Coordination. Rashida Allen mallet and die cutter Crop And Soil Scientist Internal Medicine [facility] CNPTOUTREACH Observed: 01/18/2018 Status: COMPLETED Source: [place] 12:00 AM [facility] REPOSITORY Patient Outreach (INTMWS) ELIZABETH HO ([id number]) 1950 F Date Time Provider Department 01/18/18 [...] out to patient for Care Coordination. Rashida lAlen RN Ambulatory Crop And Soil Scientist Internal Medicine [facility] Allergies As of Date: 01/18/2018 Noted Allergy Reaction AUGMENTIN (AMOXICILLIN-POT CLAVUL*2013 2 - Rash SULFA (SULFONAMIDE ANTIBIOTICS) 01/10/2005 4 - Hives VANCOMYCIN 08/26/2013 10 - Anaphylaxis Comments: Per pharmacist. Patient tolerating PO Vancomycin. on 01/07 pt in [facility] and had ld syndrome rxn [...] [N25.81] INVALID FOR* CAD (coronary artery disease), kaw coronary *INVALID FOR* Priority: F More... More... [...] (ICD) in*INVALID FOR* More... More... DVT prophylaxis [CEK0364] INVALID FOR* More... Thrombocytopenia (HCC) [D69.6] INVALID [...] F Source: NAM NO DIFF 6:00 AM [facility] REPOSITORY TYPE CODE TESTS RESULT OUT OF [...] MPV 10.8 Performed By: #### L100.0500 #### [facility] [address] [place], [address] COMPREHENSIVE METABOLIC Collected: 01/17/2018 Status: F Source: [facility] 6:00 AM [facility] REPOSITORY Order Comment: 136 TYPE CODE TESTS [...] GAP 11 Performed By: #### L500.4050 #### [facility] [address] [place], [address] Observed: 01/15/2018 Status: F Source: [place] CDIFF (MOLECULAR) 1:45 PM [facility] REPOSITORY Cdiff-Molecular Normal Reference Range = Negative C. Diff DNA Negative- No toxigenic C. Diff DNA Detected NAAT METHOD Testing was performed using nucleic acid amplification Performed By: #### M100.6796 #### [facility] [address] [place], [address] CBC-COMPLETE BLOOD CNT Collected: 01/10/2018 Status: F Source: NAM NO DIFF 7:35 AM [facility] REPOSITORY TYPE CODE TESTS RESULT OUT OF [...] MPV 10.8 Performed By: #### L100.0500 #### [facility] [address] [place], [place], [address] BASIC METABOLIC Collected: 01/10/2018 Status: F Source: NAM PROFILE (BMP) 7:35 AM [facility] REPOSITORY TYPE CODE TESTS RESULT OUT OF [...] GAP 12 Performed By: #### L500.2500 #### [facility] [address] [place], [place], [address] CBC-COMPLETE BLOOD CNT Collected: 01/08/2018 Status: F Source: [place] 4:45 AM [facility] REPOSITORY Order Comment: RM:136 TYPE CODE TESTS [...] MPV 10.8 Performed By: #### L100.0500 #### [facility] [address] [place], [address] BASIC METABOLIC Collected: 01/08/2018 Status: F Source: [place] PROFILE (BMP) 4:45 AM [facility] REPOSITORY Order Comment: RM:136 TYPE CODE TESTS [...] GAP 8 Performed By: #### L500.2500 #### [facility] [address] [place], [address] PROTHROMBIN TIME W/INR Collected: 01/08/2018 Status: F Source: [place]AM 4:45 AM [facility] REPOSITORY Order Comment: RM:136 TYPE CODE TESTS RESULT OUT OF RANGE REFERENCE UNITS LAB L300.4150 11.7-14.9 SECONDS High PROTIME 22.9 LAB L300.4200 Normal INR 2.0 Performed By: #### L300.3900 #### [facility] [address] [facility] [address] PROTHROMBIN TIME W/INR Collected: 01/04/2018 Status: F Source: [place] 5:35 AM [facility] REPOSITORY Order Comment: ROOM 126 TYPE CODE TESTS RESULT OUT OF RANGE REFERENCE UNITS LAB L300.4150 11.7-14.9 SECONDS High PROTIME 29.2 LAB L300.4200 Normal INR 2.7 Performed By: #### L300.3900 #### [facility] [place], [address] BEDSIDE GLUCOSE Collected: 01/03/2018 Status: F Source: [place] 5:14 PM [facility] REPOSITORY TYPE CODE TESTS RESULT OUT OF REFERENCE UNITS RANGE LAB L501.080 70-110 mg/dL High BEDSIDE GLU 215 Result Comment: MANAGEMENT OF PATIENT CARE PER NURSING PROTOCOL Performed By: #### L501.080 #### [facility] Point of Care [address] [place] [address] DISCHARGE SUMMARY Observed: 01/03/2018 Status: F Source: [place] 4:12 PM [facility] REPOSITORY [facility] Medical Records Department [facility] [place] [address] Discharge Summary 01/03/18 1518 MR#: [id number] Acct: [id number] Name: ELIZABETH HO Rep #: [id number] : 1950 67 From: Cristian ALFARO PCP: Williams Parekh MD Status: ADM JANE Y Location: [place] [id number] Discharge Date and Diagnosis - Problem List [...] emergency room as an outpatient and trialed Burr and steroids without any relief. She represented to the emergency room as she continued to have worsening of her pain and had more difficulty ambulating. She did not feel safe at home and was concerned that she was going to fall. 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 She desires long term placement. She was admitted to the medical surgical floor and started on supportive care including oxycodone, Tylenol, Lidoderm, with the consult pain management. Pain management recommended and injection however she was not interested in doing this because she was concerned about holding her warfarin. She was seen by PT and OT and recommendations were made for long term therapy. The patient was agreeable and she [...] M.D.; Williams Parekh MD Signed TRANSFER TO [facility] Observed: 01/03/2018 Status: F Source: [facility] 4:12 PM [facility] REPOSITORY [facility] Medical Records Department [address] [place] [address] Transfer to Extended Care MR#: [id number] Acct: [id number] Name: ELIZABETH HO Rep #: [id number] : 1950 67 From: Cristian ALFARO PCP: Williams Parekh MD Status: ADM JANE ELIZAEBTH HO (Patient) (Health Ins. Claim No.) (Day of Discharge to Facility) Certification of patient admission REQUIRED AT TIME OF ADMISSION. I CERTIFY THAT POST-HOSPITAL ECF SERVICES ARE REQUIRED TO BE GIVEN ON AN IN-PATIENT BASIS BECAUSE OF THE ABOVE NAMED PATIENT'S NEED FOR SKILLED NURSING CARE ON A CONTINUING BASIS FOR THE [...] 01/03/2018 Status: F Source: NAM 11:50 AM [facility] REPOSITORY TYPE CODE TESTS RESULT OUT OF REFERENCE UNITS RANGE LAB L501.080 70-110 mg/dL High BEDSIDE GLU 185 Result Comment: MANAGEMENT OF PATIENT CARE PER NURSING PROTOCOL Performed By: #### L501.080 #### [facility] Point of Care [address] [place] [address] BEDSIDE GLUCOSE Collected: 01/03/2018 Status: F Source: NAM 7:47 AM [facility] REPOSITORY TYPE CODE TESTS RESULT OUT OF RANGE REFERENCE UNITS LAB L501.080 70-110 mg/dL Normal BEDSIDE GLU 102 Result Comment: MANAGEMENT OF PATIENT CARE PER NURSING PROTOCOL Performed By: #### L501.080 #### [facility] Point of Care [address] [place] [address] BASIC METABOLIC Collected: 01/03/2018 Status: F Source: NAM PROFILE (BMP) 5:52 AM [facility] REPOSITORY TYPE CODE TESTS RESULT OUT OF [...] GAP 8 Performed By: #### L500.2500 #### [facility] [address] [place], [address] PROTHROMBIN TIME W/INR Collected: 01/03/2018 Status: F Source: [place] 5:52 AM [facility] REPOSITORY TYPE CODE TESTS RESULT OUT OF REFERENCE UNITS RANGE LAB L300.4150 11.7-14.9 SECONDS High PROTIME 35.2 LAB L300.4200 High alert INR 3.5 Result Comment: CRITICAL VALUE VERIFIED. CALLED TO TIMRN MS3 01/03/18 0631 Ilsa Stanford. RESULTS READ BACK BY SAME . Performed By: #### L300.3900 #### [facility] [address] [place], [address] CBC W/DIFF, AUTOMATED Collected: 01/03/2018 Status: C Source: [place] 5:52 AM [facility] REPOSITORY TYPE CODE TESTS RESULT OUT OF [...] August dina Performed By: #### L100.0100 #### [facility] [address] [place], [address] BEDSIDE GLUCOSE Collected: 01/02/2018 Status: F Source: NAM 9:39 PM [facility] REPOSITORY TYPE CODE TESTS RESULT OUT OF RANGE REFERENCE UNITS LAB L501.080 70-110 mg/dL Normal BEDSIDE GLU 109 Result Comment: MANAGEMENT OF PATIENT CARE PER NURSING PROTOCOL Performed By: #### L501.080 #### [facility] Point of Care [address] [place] [address] BEDSIDE GLUCOSE Collected: 01/02/2018 Status: F Source: NAM 5:42 PM [facility] REPOSITORY TYPE CODE TESTS RESULT OUT OF RANGE REFERENCE UNITS LAB L501.080 70-110 mg/dL Normal BEDSIDE GLU 95 Result Comment: MANAGEMENT OF PATIENT CARE PER NURSING PROTOCOL Performed By: #### L501.080 #### [facility] Point of Care [address] [place] [address] BEDSIDE GLUCOSE Collected: 01/02/2018 Status: F Source: NAM 5:15 PM [facility] REPOSITORY TYPE CODE TESTS RESULT OUT OF REFERENCE UNITS RANGE LAB L501.080 70-110 mg/dL Low BEDSIDE GLU 49 Result Comment: MANAGEMENT OF PATIENT CARE PER NURSING PROTOCOL Performed By: #### L501.080 #### [facility] Point of Care [address] [place] [address] BEDSIDE GLUCOSE Collected: 01/02/2018 Status: F Source: NAM 11:37 AM [facility] REPOSITORY TYPE CODE TESTS RESULT OUT OF REFERENCE UNITS RANGE LAB L501.080 70-110 mg/dL High BEDSIDE GLU 160 Result Comment: MANAGEMENT OF PATIENT CARE PER NURSING PROTOCOL Performed By: #### L501.080 #### [facility] Point of Care [address] [place] [address] BEDSIDE GLUCOSE Collected: 01/02/2018 Status: F Source: NAM 7:44 AM [facility] REPOSITORY TYPE CODE TESTS RESULT OUT OF REFERENCE UNITS RANGE LAB L501.080 70-110 mg/dL High BEDSIDE GLU 128 Result Comment: MANAGEMENT OF PATIENT CARE PER NURSING PROTOCOL Performed By: #### L501.080 #### [facility] Point of Care [address] [place] [address] CBC W/DIFF, AUTOMATED Collected: 01/02/2018 Status: C Source: NAM 5:34 AM [facility] REPOSITORY TYPE CODE TESTS RESULT OUT OF [...] August dina Performed By: #### L100.0100 #### [facility] [address] [place], [place], [address] BASIC METABOLIC Collected: 01/02/2018 Status: F Source: [place] PROFILE ([facility]) 5:34 AM [facility] REPOSITORY TYPE CODE TESTS RESULT OUT OF [...] GAP 10 Performed By: #### L500.2500 #### [facility] [address] [place], [address] PROTHROMBIN TIME W/INR Collected: 01/02/2018 Status: F Source: [place] 5:34 AM [facility] REPOSITORY TYPE CODE TESTS RESULT OUT OF REFERENCE UNITS RANGE LAB L300.4150 11.7-14.9 SECONDS High PROTIME 38.1 LAB L300.4200 High alert INR 3.8 Result Comment: CRITICAL VALUE VERIFIED. CALLED TO TIMRN MS3 01/02/18 0614 Ilsa Stanford. RESULTS READ BACK BY SAME . Performed By: #### L300.3900 #### [facility] [address] [place], [place], [address] CRP Collected: 01/02/2018 Status: F Source: [place] 5:34 AM [facility] REPOSITORY TYPE CODE TESTS RESULT OUT OF RANGE REFERENCE UNITS LAB L501.6710 0.0-3.0 mg/L High 26.20 C-REACTIVE PROT Result Comment: C-Reactive Protein (CRP) provides useful information for the diagnosis, therapy and monitoring of inflammatory processes and associated diseases. For the evaluation of Relative Risk for Cardiovascular Disease, a High Sensitivity CRP (HSCRP) should be ordered. Performed By: #### L501.6710 #### [facility] [address] [place], [place], [address] CPK TOTAL, CREATINE Collected: 01/02/2018 Status: F Source: NAM KINASE 5:34 AM [facility] REPOSITORY TYPE CODE TESTS RESULT OUT OF RANGE REFERENCE UNITS LAB L501.3620 26-192 U/L Normal CPK TOTAL 159 Performed By: #### L501.3620 #### [facility] [address] [place], [address] ERYTHROCYTE SED RATE Collected: 01/02/2018 Status: F Source: NAM 5:34 AM [facility] REPOSITORY TYPE CODE TESTS RESULT OUT OF RANGE REFERENCE UNITS LAB L102.0000 0-30 mm/hr High SED RATE 39 Performed By: #### L101.9900 #### [facility] [address] [place], [address] IRON+IRON BINDING Collected: 01/02/2018 Status: F Source: NAM CAPACITY 5:34 AM [facility] REPOSITORY Order Comment: Comments: ok to add on Comments: ok to add on TYPE CODE TESTS RESULT OUT OF RANGE REFERENCE UNITS LAB L503.6075 250-450 ug/dL TIBC Normal 360 LAB L503.6150 50-170 ug/dL IRON Normal 56 LAB L503.6250 15.0-55.0 % IRON Normal SATURATION 15.6 Performed By: #### L503.6030, L503.6550 #### [facility] [address] [place], [address] FERRITIN Collected: 01/02/2018 Status: F Source: NAM 5:34 AM [facility] REPOSITORY Order Comment: Comments: ok to add on Comments: ok to add on TYPE CODE TESTS RESULT OUT OF RANGE REFERENCE UNITS LAB L503.6550 8-252 ng/mL Normal FERRITIN 69 Performed By: #### L503.6030, L503.6550 #### [facility] [address] [place], [address] EMERGENCY DEPARTMENT Observed: 01/01/2018 Status: F Source: NAM SUMMARY 10:58 PM [facility] REPOSITORY [facility] Medical Records Department [address] [facility] [place] [address] Emergency Department Summary 01/01/18 1514 MR#: [id number] Acct: [id number] Name: ELIZABETH HO Rep #: [id number] : 1950 67 From: Brian Frey MD [...] the hospital overnight for precertification for a fpc. She was discussed with Dr. Mendez. Disposition: Admitted in stable condition. Impression: 1. Right hip pain, acute. 2. Coumadin coagulopathy. This note was generated with Purpleation software. It may contain incorrect words, spelling, [...] your Primary Care Provider. Call [facility] ([phone]) or report to the closest Emergency Room. Call 911 if necessary. 01/01/18 2258 <Electronically signed by Brian Frey MD> Date Brian Frey MD Cosigner Signature (If Indicated): Date CC: Williams Parekh MD BEDSIDE GLUCOSE Collected: 01/01/2018 Status: F Source: NAM 10:05 PM [facility] REPOSITORY TYPE CODE TESTS RESULT OUT OF REFERENCE UNITS RANGE LAB L501.080 70-110 mg/dL High BEDSIDE GLU 227 Result Comment: MANAGEMENT OF PATIENT CARE PER NURSING PROTOCOL Performed By: #### L501.080 #### [facility] Point of Care [facility] [place] [address] BASIC METABOLIC Collected: 01/01/2018 Status: F Source: NAM PROFILE (BMP) 8:17 PM [facility] REPOSITORY TYPE CODE TESTS RESULT OUT OF [...] GAP 4 Performed By: #### L500.2500 #### [facility] [place], [address] CBC W/DIFF, AUTOMATED Collected: 01/01/2018 Status: F Source: NAM 8:17 PM [facility] REPOSITORY TYPE CODE TESTS RESULT OUT OF [...] LYMPHOPENIA NOTED Performed By: #### L100.0100 #### [facility] [address] [facility] [place], [place], [address] PROTHROMBIN TIME W/INR Collected: 01/01/2018 Status: F Source: [place] 8:17 PM [facility] REPOSITORY TYPE CODE TESTS RESULT OUT OF REFERENCE UNITS RANGE LAB L300.4150 11.7-14.9 SECONDS High PROTIME 37.7 LAB L300.4200 High alert INR 3.8 Result Comment: CRITICAL VALUE VERIFIED. CALLED TO DCLARK 01/01/18 Lena Faria. RESULTS READ BACK BY SAME . Performed By: #### L300.3900 #### [facility] [address] [place], [place], [address] MAGNESIUM Collected: 01/01/2018 Status: F Source: [place] 8:17 PM [facility] REPOSITORY TYPE CODE TESTS RESULT OUT OF RANGE REFERENCE UNITS LAB L501.5200 1.6-2.6 mg/dL High MG 2.8 Performed By: #### L501.5200 #### [facility] [address] [place], [address] HISTORY AND PHYSICAL Observed: 01/01/2018 Status: F Source: [place] EXAM 6:28 PM [facility] REPOSITORY [facility] Medical Records Department [address] [place] [address] History and Physical 01/01/18 1751 MR#: [id number] Acct: [id number] Name: ELIZABETH HO Rep #: [id number] : 1950 67 From: Cristian ALFARO PCP: Williams Parekh MD Status: ADM JANE Y Location: [place] [address] ADDENDUM by Loren Mendez on 01/01/18 at [...] LE Lymphedema/PVD, Obesity who presents to the [facility] ED on 01/01/18 with history [...] LE Lymphedema/PVD, Obesity who presents to the [facility] ED on 01/01/18 with history [...] that living will and HCPOA in place (sugar coating hand). Advanced Care Planning Face to Face Time: 17 minutes. OBSV E AND M: [id number] Initial observation care L3 Procedures: [id number] Advncd Care Plan 30 Min 01/01/18 9073 <Electronically signed by Loren Mendez > Date [...] she then later went to see her LAUNDRY BAG PUNCH OPERATOR, who placed her on steroids and [...] fistula Psychiatric History: No pertinent psych hx ROBOTIC WELDER History: No pertinent ROBOTIC WELDER history Smoking Status: Never smoker - *Family [...] IV - prior dialysis now off. Follows [facility]. NO NSAIDS. 6. T2DM - continue insulin regimen with SSI 7. Hx s/p TAVR 8. Hypothyroid - synthroid 9. Anemia of chronic dz - last hgb stable DVT ppx: warfarin DC planning: SNF, PTOT This patient was seen by Cristian oDtson PA-C under the supervision of Doctor Vanessa. 01/01/181803 <Electronically signed by Cristian ALFARO> Date Cristian ALFARO 01/01/181818<Electronically signed by Loren Mendez > Cosigner Signature: Date (if applicable) Loren Mendez CC: ANGELINA Dotson; Loren Mendez; Williams Parekh MD Signed FEMUR MIN 2 VIEWS Observed: 01/01/2018 Status: F Source: [place] 3:13 PM [facility] REPOSITORY [facility] Imaging Services [address] [place] [address] Femur Min 2 Views MR#: [id number] Acct: [id number] Name: ELIZABETH HO Rep #: [id number] : 1950 F 67 From: Sriram Vila MD PCP: Williams Parekh MD Status: REG ER Study: Femur Min 2 Views Date of Exam: 01/01/18 Exam# [id number] Ordering Dr: Brian Frey MD STUDY: X-RAY [...] CC: Williams Parekh MD; Brian Frey MD Architectural Draftsman: Signed EXTREMITY LOWER Observed: 01/01/2018 Status: F Source: [place] WITHOUT CONTRA 3:13 PM [facility] REPOSITORY [facility] Imaging Services [address] [place] [address] Extremity Lower without Contra MR#: [id number] Acct: [id number] Name: ELIZABETH HO Rep #: [id number] : 1950 F 67 From: Niesha Lopez MD PCP: Williams Parekh MD Status: REG ER Study: Extremity Lower without Contra Date of Exam: 01/01/18 Exam# [id number] Ordering Dr: Brian Frey MD STUDY: CT [...] Service support , CC: Williams Parekh MD; rBian Frey MD Architectural Draftsman: Signed PROGRESS Observed: 12/29/2017 Status: COMPLETED Source: [place] 3:24 PM [facility] REPOSITORY O ID: [id number] Author: Maria Esther Campbell LPN Service: (none) Author Type: (none) Type: Progress Notes Filed: 12/29/2017 3:38 PM Note Text: 67 year old female here for INACTIVATED INFLUENZA VACCINE. 3425-4224 Season Patient is identified by name and date of : Yes [] CONTRAINDICATIONS color enhanced section Age less than 6 months? No Allergy to eggs, chicken, chicken feathers, or chicken dander? No Allergy to thimerosal (a preservative) or formaldehyde? No History of severe reaction to any vaccine component or a previous dose of influenza vaccination? 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 Yes See immunization activity in [facility] for details of immunizations adminstered today. Patient [...] dose of influenza vaccination? 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 Yes See immunization activity in [facility] for details of immunizations adminstered today. Patient age: [age] year old For The 8724-0097 Flu Season 6-35 months old: Fluzone 0.25 [...] time. PROGRESS Observed: 12/29/2017 Status: COMPLETED Source: [place] 3:00 PM [facility] [place] REPOSITORY O ID: [id number] Author: Ema Curry (Cns) Service: (none) Author [...] Kidney Disease) Stage 4, Gfr 15-29 Ml/Min ([facility]) Varicose Veins of Lower Extremities With Ulcer ([facility]) Vitamin D Deficiency Secondary Hyperparathyroidism ([facility]) Cad (Coronary Artery Disease), [place] Coronary Artery Aortic Stenosis Mitral Stenosis On Home O2 Pvd (Peripheral Vascular Disease) ([facility]) Anemia Urinary Incontinence Implantable Cardioverter-Defibrillator (Icd) in Situ Dvt Prophylaxis Constipation Chf (Congestive Heart Failure), [place] Class Iii (Hcc) Gout, Arthritis 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 She was seen in [facility] yesterday for this pain. Pain was [...] 05/15/2013 - Cellulitis of left leg 01/29/2010 [facility] ER 01/27/[address] [facility] Dx: sepsis, afib, elevated INR - [...] kidney disease) stage 4, GFR 15-29 ml/min ([facility]) -On HD in 2009 for about 6-7 months, but has since improved to the point where she no longer requires it -stable Plan: - monitor renal function - avoid nephrotoxins - DM (diabetes mellitus) type II uncontrolled with renal manifestation Diabetes mellitus NIDDM - ESRD on hemodialysis ([facility]) Dr. Luo ([place]) - Failure to extubation 08/26/2013 Patient was [...] - Heart failure, systolic and diastolic, chronic ([facility]) 07/21/2013 NICM EF 45%, stage I diastolic dysfunction on most recent Echo 06/2013 On admission, clinically euvolemic Plan: - not currently on ACEi/ARB due to renal dysfunction - on carvedilol - continue spironolactone - hold Lasix 40mg PO BID until acute anemia addressed but will diurese with transfusions as needed - ICD in situ - Heart failure, systolic and diastolic, chronic ([facility]) 07/21/2013 NICM EF 45%, stage [...] implant, and graft 09/01/2010 - Morbid obesity ([facility]) - Morbid obesity ([facility]) Nutrition consult - Muscular deconditioning 09/14/2013 - Non-ischemic cardiomyopathy ([facility]) Cardiomyopathy--[place] - Paroxysmal ventricular tachycardia ([facility]) 04/02/2005 H/o VT/TdP s/p ICD. [...] write COPAT. David placed. Will go to [facility] on Monday. 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 This was not quiroz induced this was RECREATIONAL ASSISTANT. Will discuss with ID - monitor for [...] tolerating PO Vancomycin. on 01/07 pt in [facility] and had ld syndrome rxn [...] (H) 4.3 - 5.6 % Final Comment: [place] [employer] guidelines indicate that patients with HgbA1c in the range 5.7-6.4% are at increased risk for development of diabetes, and intervention by lifestyle modification may be beneficial. HgbA1c greater or equal to 6.5% is considered diagnostic of diabetes. 09/03/2015 7.0 (H) 4.3 - 5.6 % Final Comment: [place] [employer] guidelines indicate that patients with HgbA1c in the range 5.7-6.4% are at increased risk for development of diabetes, and intervention by lifestyle modification may be beneficial. HgbA1c greater or equal to 6.5% is considered diagnostic of diabetes. 07/23/2015 6.2 (H) 4.3 - 5.6 % Final Comment: [place] [employer] guidelines indicate that patients with HgbA1c in the range 5.7-6.4% are at increased risk for development of diabetes, and intervention by lifestyle modification may be beneficial. HgbA1c greater or equal to 6.5% is considered diagnostic of diabetes. 04/08/2015 6.5 (H) 4.3 - 5.6 % Final Comment: [place] [employer] guidelines indicate that patients with [...] right hip pain. ER follow up 12/28/2017 [facility]. After my examination and review [...] complication, with long-term current use of insulin ([facility]) - ICD9: 250.70, V58.67, ICD10: [...] APRN.CNS CNOV Observed: 12/29/2017 Status: COMPLETED Source: [place] 3:00 PM [facility] REPOSITORY Office Visit (INTMWS) PAPAELIZABETH ([id number]) 1950 F Date Time Provider Department 12/29/17 3:00 PM EMA CURRY (WEBSPH[employer] PROCESS SERVER DEVELOPER) INTMWS During your visit today, we recorded [...] Kidney Disease) Stage 4, Gfr 15-29 Ml/Min ([facility]) Varicose Veins of Lower Extremities With Ulcer ([facility]) Vitamin D Deficiency Secondary Hyperparathyroidism ([facility]) Cad (Coronary Artery Disease), [place] Coronary Artery Aortic Stenosis Mitral Stenosis On Home O2 Pvd (Peripheral Vascular Disease) ([facility]) Anemia Urinary Incontinence Implantable Cardioverter-Defibrillator (Icd) in Situ Dvt Prophylaxis Constipation Chf (Congestive Heart Failure), Ny[place] Class Iii ([facility]) Gout, Arthritis Cardiac Pacemaker in Situ Hypothyroidism Due to Medication Gait Instability Paf (Paroxysmal Atrial Fibrillation) ([facility]) Diabetes Mellitus ([facility]) Presents today for hip pain. She was seen in [facility] yesterday for this pain. Pain was [...] - Atrial fibrillation (HCC) - Atrial fibrillation ([facility]) 04/02/2005 Currently NSR Plan: - Supratherapeutic INR on presentation, holding Warfarin - holding heparin given GIB and risks>benefits - on carvedilol - ICD in place - Atrial fibrillation ([facility]) 04/02/2005 H/o pAF on coumadin [...] 05/15/2013 - Cellulitis of left leg 01/29/2010 [facility] ER 01/27/[address] [facility] Dx: sepsis, afib, elevated INR - [...] kidney disease) stage 4, GFR 15-29 ml/min ([facility]) -On HD in 2009 for about 6-7 months, but has since improved to the point where she no longer requires it -stable Plan: - monitor renal function - avoid nephrotoxins - DM (diabetes mellitus) type II uncontrolled with renal manifestation Diabetes mellitus NIDDM - ESRD on hemodialysis ([facility]) Dr. Luo ([place]) - Failure to extubation 08/26/2013 Patient was [...] - Heart failure, systolic and diastolic, chronic ([facility]) 07/21/2013 NICM EF 45%, stage I diastolic dysfunction on most recent Echo 06/2013 On admission, clinically euvolemic Plan: - not currently on ACEi/ARB due to renal dysfunction - on carvedilol - continue spironolactone - hold Lasix 40mg PO BID until acute anemia addressed but will diurese with transfusions as needed - ICD in situ - Heart failure, systolic and diastolic, chronic ([facility]) 07/21/2013 NICM EF 45%, stage [...] - Morbid obesity (HCC) - Morbid obesity ([facility]) Nutrition consult - Muscular deconditioning [...] write COPAT. David placed. Will go to [facility] on Monday. 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 This was not quiroz induced this was RECREATIONAL ASSISTANT. Will discuss with ID - monitor for [...] tolerating PO Vancomycin. on 01/07 pt in [facility] and had ld syndrome rxn to [facility]. MEDICATIONS traMADol (ULTRAM) 50 mg tablet Take 50 mg by mouth every 6 hours as needed. metOLAzone (ZAROXOLYN) 5 mg tablet Take 5mg Monday, Monday and Monday nystatin (MYCOSTATIN) powder Apply 1 application to affected area three times daily. blood sugar diagnostic ([employer] MediaTOUCH ULTRA TEST) test strip before meals and [...] (H) 4.3 - 5.6 % Final Comment: [place] [employer] guidelines indicate that patients with HgbA1c in the range 5.7-6.4% are at increased risk for development of diabetes, and intervention by lifestyle modification may be beneficial. HgbA1c greater or equal to 6.5% is considered diagnostic of diabetes. 09/03/2015 7.0 (H) 4.3 - 5.6 % Final Comment: [place] [employer] guidelines indicate that patients with HgbA1c in the range 5.7-6.4% are at increased risk for development of diabetes, and intervention by lifestyle modification may be beneficial. HgbA1c greater or equal to 6.5% is considered diagnostic of diabetes. 07/23/2015 6.2 (H) 4.3 - 5.6 % Final Comment: [place] [employer] guidelines indicate that patients with HgbA1c in the range 5.7-6.4% are at increased risk for development of diabetes, and intervention by lifestyle modification may be beneficial. HgbA1c greater or equal to 6.5% is considered diagnostic of diabetes. 04/08/2015 6.5 (H) 4.3 - 5.6 % Final Comment: [place] [employer] guidelines indicate that patients with [...] right hip pain. ER follow up 12/28/2017 [facility]. After my examination and review [...] class 3, unspecified congestive heart failure type ([facility]) - ICD9: 428.0, ICD10: I50.9 4. CKD (chronic kidney disease) stage 4, GFR 15-29 ml/min ([facility]) - ICD9: 585.4, ICD10: N18.4 5. Type 2 diabetes mellitus with other circulatory complication, with long-term current use of insulin ([facility]) - ICD9: 250.70, V58.67, ICD10: [...] and agreed with the plan. Ema Curry APRN.WEBSPHERE PROCESS SERVER DEVELOPER Ema Curry APRN.RICHI 12/29/2017 3:20 PM Signed [...] old female here for INACTIVATED INFLUENZA VACCINE. 2284-2348 Season Patient is identified by name and date of : Yes [] CONTRAINDICATIONS color enhanced section Age less than 6 months? No Allergy to eggs, chicken, chicken feathers, or chicken dander? No Allergy to thimerosal (a preservative) or formaldehyde? No History of severe reaction to any vaccine component or a previous dose of influenza vaccination? 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 Yes See immunization activity in [facility] for details of immunizations adminstered today. Patient [...] dose of influenza vaccination? 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 Yes See immunization activity in [facility] for details of immunizations adminstered today. Patient age: [age] year old For The 9418-8059 Flu Season 6-35 months old: Fluzone 0.25 [...] tolerating PO Vancomycin. on 01/07 pt in [facility] and had ld syndrome rxn to Vanc IV. Date Reviewed: 12/29/2017 Reviewed by: Maria Esther Campbell LPN - Fully Assessed Reason for Visit: Hospital F/U [57] Imm/Inj [58] Cmt: Flu Vaccine Reason For Visit History Recorded Primary Visit Diagnosis:Right hip pain [M25.551] Other Visit Diagnoses:Need for vaccination [Z23] Congestive heart failure, NYHA class 3, unspecified congestive heart failure type ([facility]) [I50.9] CKD (chronic kidney disease) stage 4, GFR 15-29 ml/min ([facility]) [N18.4] Type 2 diabetes mellitus with other circulatory complication, with long-term current use of insulin ([facility]) [E11.59, Z79.4] Normocytic anemia [D64.9] S/P TAVR (transcatheter aortic valve replacement) [Z95.2] Order(s):CONSULT TO ORTHOPAEDICS [9070] Order #: [id number]: 1 predniSONE (DELTASONE) 10 mg tabletTake 1 [...] 0 INFLUENZA SEASONAL HIGH DOSE AGE 65+ [42146GLR] Order #: [id number] Prescriptions as of 12/29/2017 Sig: TRAMADOL 50 [...] [N25.81] INVALID FOR* CAD (coronary artery disease), kaw coronary *INVALID FOR* Priority: F More... More... [...] (ICD) in*INVALID FOR* More... More... DVT prophylaxis [QRG1765] INVALID FOR* More... Thrombocytopenia (HCC) [D69.6] INVALID [...] EMERGENCY DEPARTMENT Observed: 12/28/2017 Status: F Source: [place] SUMMARY 3:56 PM [facility] REPOSITORY [facility] Medical Records Department [address] [place] [address] Emergency Department Summary 12/28/17 0932 MR#: [id number] Acct: [id number] Name: ELIZABETH HO Rep #: [id number] : 1950 67 From: Matt Sweet MD [...] hip pain This note was generated with [employer] dictation software. It may contain incorrect words, [...] your Primary Care Provider. Call [facility] ([phone]) or report to the closest Emergency Room. Call 911 if necessary. 12/28/17 5306 <Electronically signed by Matt Sweet MD> Date Matt Sweet MD Cosigner Signature (If Indicated): Date CC: Williams Parekh MD BASIC METABOLIC Collected: 12/28/2017 Status: F Source: NAM PROFILE ([facility]) 9:35 AM [facility] REPOSITORY TYPE CODE TESTS RESULT OUT OF [...] GAP 8 Performed By: #### L500.2500 #### [facility] [address] [place], [place], [id number] CBC W/DIFF, AUTOMATED Collected: 12/28/2017 Status: F Source: NAM 9:35 AM [facility] REPOSITORY TYPE CODE TESTS RESULT OUT OF [...] Lymph 1.28 Performed By: #### L100.0100 #### [facility] [address] [place], [place], [address] PROTHROMBIN TIME W/INR Collected: 12/28/2017 Status: F Source: [place] 9:35 AM [facility] REPOSITORY TYPE CODE TESTS RESULT OUT OF RANGE REFERENCE UNITS LAB L300.4150 11.7-14.9 SECONDS High PROTIME 25.4 LAB L300.4200 Normal INR 2.3 Performed By: #### L300.3900 #### [facility] [address] [place], [address] HIP, UNI W/ PELVIS Observed: 12/28/2017 Status: F Source: NAM 2-3 VIEWS 9:30 AM [facility] REPOSITORY [facility] Imaging Services [address] [place] [address] HIP, UNI W/ Pelvis 2-3 Views MR#: [id number] Acct: [id number] Name: ELIZABETH HO Rep #: [id number] : 1950 F 67 From: Asif Teresa MD PCP: Williams Parekh MD Status: REG ER Study: HIP, UNI W/ Pelvis 2-3 Views Date of Exam: 12/28/17 Exam# [id number] Ordering Dr: Matt Sweet MD STUDY: X-RAY [...] Asif Teresa MD at 10:35 EDT Tel [phone], Service support , CC: Williams Parekh MD; Matt Sweet MD Architectural Draftsman: Signed PACEMAKER CHECK Observed: 12/26/2017 Status: F Source: NAM 5:30 PM [facility] REPOSITORY [facility] [address] [place] [address] Pacemaker Check Date of Service: 12/26/171641 MR#: [id number] Acct: [id number] Name: ELIZABETH HO Rep #: [id number] : 1950 From: Lela Bullock Age/Sex: 67/F [place] [facility] [place]: Signed Billing Codes ICD Device Billing: ICD Dev Prog Eval, Dual 12/26/171643 <Electronically signed by Lela Bullock > Date Lela Bullock 12/26/171729<Electronically signed by Michael See MD> Cosigner Signature: Date (if applicable) Michael See MD CC: PROTHROMBIN TIME W/INR Collected: 12/22/2017 Status: F Source: NAM 10:06 AM [facility] REPOSITORY TYPE CODE TESTS RESULT OUT OF RANGE REFERENCE UNITS LAB L300.4150 11.7-14.9 SECONDS High PROTIME 28.7 LAB L300.4200 Normal INR 2.7 Performed By: #### L300.3900 #### [facility] [address] [place], [address] BASIC METABOLIC Collected: 12/22/2017 Status: F Source: NAM PROFILE (BMP) 10:06 AM [facility] REPOSITORY TYPE CODE TESTS RESULT OUT OF [...] GAP 8 Performed By: #### L500.2500 #### [facility] [address] [facility] [place], [address] PROTHROMBIN TIME W/INR Collected: 12/04/2017 Status: F Source: NAM 8:37 AM [facility] REPOSITORY TYPE CODE TESTS RESULT OUT OF RANGE REFERENCE UNITS LAB L300.4150 11.7-14.9 SECONDS High PROTIME 26.0 LAB L300.4200 Normal INR 2.4 Performed By: #### L300.3900 #### [facility] [address] [facility] [place], [address] BASIC METABOLIC Collected: 12/04/2017 Status: F Source: NAM PROFILE (BMP) 8:36 AM [facility] REPOSITORY Order Comment: Comments: With next PT/INR [...] GAP 7 Performed By: #### L500.2500 #### [facility] [address] [facility] [place], [address] CARDIOLOGY VISIT Observed: 11/20/2017 Status: F Source: [place] REPORT 1:54 PM [facility] REPOSITORY [facility] [address] [place] [address] OFFICE VISIT Date of Service: 11/20/17 MR#: [id number] Acct: [id number] Name: ELIZABETH HO Rep #: [id number] : 1950 Provider: Michael See MD Age/Sex: 67/F [place] [facility] [place]: Signed HPI HPI Details: ELIZABETH HO, is a 67 F who presents to the office today for outpatient cardiovascular follow-up. As you know she was hospitalized at [facility] in August of this year [...] .COMPLEX #60 tab 10/30/17 [Rx Confirmed 11/20/17] [facility] Medical History Aortic stenosis (Chronic) [...] She did have a transthoracic echocardiogram performed [facility] on 07/10/2017. The results are as [...] have a diagnostic cardiac catheterization performed at [facility] on 03/04/2014. Per their report the left main coronary artery was normal, the LAD had diffuse mild luminal irregularities, the LCx was a large dominant vessel with 30- 40% stenosis, the RCA was a small nondominant vessel with minimal diffuse irregularities She does have an ICD in place. This is a [employer] Energen IS-1/DF-1/ model #[id number] serial #[id number] dual-chamber ICD implanted on 08/14/2014 Assessment AND Plan 1. S/p TAVR (transcatheter aortic valve replacement), bioprosthetic Z95.3 26 mm Bond Sapein Bioprosthetic Aortic Valve Plan The patient does have a history of previous TAVR. She continues to follow locally and at the [facility]. Based upon a letter from her bicycle repairer at the [facility] from 09/03/2015 it was recommended that she continue medical management and follow- up. He did not recommend any additional diagnostic studies at that time. The patient states she was asked to have a transthoracic echocardiogram prior to her next [facility] visit which would occur in August 2018. [...] in the past by electrophysiology both in [facility] as well as at [facility]. She does have an underlying ICD in [...] PROTIME W/INR Collected: 11/20/2017 Status: F Source: [place] 12:34 PM [facility] REPOSITORY TYPE CODE TESTS RESULT OUT OF REFERENCE UNITS RANGE LAB L9200.1001 11.9-14.4 SEC High PROTIME ISTAT 21.8 Result Comment: Reference Range 11.9 - 14.4 LAB L9200.2000 Normal INR ISTAT 1.90 Result Comment: Critical Value > 3.5 Performed By: #### L9200.0000 #### [facility] Point of Care [address] [place], [place] [address] [place] [address] EMERGENCY DEPARTMENT Observed: 11/14/2017 Status: F Source: [place] SUMMARY 3:40 PM [facility] REPOSITORY [facility] Medical Records Department [address] [place] [address] Emergency Department Summary 11/14/17 1245 MR#: [id number] Acct: [id number] Name: ELIZABETH HO Rep #: [id number] : 1950 67 From: Vinay Valerio MD PCP: Williams Parekh MD Status: DEP ER - ER Visit Summary Date of Service: 11/14/17 Chief Complaint: Constipation History of Present Illness: The patient is a 67 F with no bowel movement for 2 days. The patient feels rectal discomfort like she needs to have a bowel movement, but is unable. She tried agmp-uoi-jtsdgor remedies with no success. She has not tried an enema. Physical Examination: Buggy Operator exam showed a fecal impaction. Abdomen soft and nontender. Skin appears normal. No other pertinent findings. Test Results: None indicated Emergency Department Course and Treatment: Solange RN secondary set up man the exam. The patient had a digital disimpaction. She tolerated this with some discomfort but otherwise well. No bleeding or complications. Patient feels better afterwards and will be discharged. Treatment Plan: Continue ksib-tdw-gondwvu remedies at home. Stay hydrated. Increase fiber intake. Disposition: Discharged Impression: 1. Fecal impaction This note was generated with [employer] dictation software. It may contain incorrect words, [...] your Primary Care Provider. Call [facility] ([phone]) or report to the closest Emergency Room. Call 911 if necessary. 11/14/17 1540 <Electronically signed by Vinay Valerio MD> Date Vinay Valerio MD Cosigner Signature (If Indicated): Date CC: Williams Parekh MD DISCHARGE INSTRUCTION Observed: 11/14/2017 Status: F Source: NAM 3:40 PM [facility] REPOSITORY [facility] Medical Records Department [address] [place] [address] Discharge Instruction 11/14/17 1248 MR#: [id number] Acct: [id number] Name: ELIZABETH HO Rep #: [id number] : 1950 67 From: Vinay Valerio MD [...] your Primary Care Provider. Call [facility] ([phone]) or report to the closest Emergency Room. Call 911 if necessary. 11/14/17 1540 <Electronically signed by Vinay Valerio MD> Date Vinay Valerio MD Cosigner Signature (If Indicated): Date CC: Williams Parekh MD PROTHROMBIN TIME W/INR Collected: 11/09/2017 Status: F Source: NAM 11:20 AM [facility] REPOSITORY TYPE CODE TESTS RESULT OUT OF RANGE REFERENCE UNITS LAB L300.4150 11.7-14.9 SECONDS High PROTIME 31.6 LAB L300.4200 Normal INR 3.0 Performed By: #### L300.3900 #### [facility] [place], [address] PROTIME W/INR Collected: 11/03/2017 Status: F Source: [place] 10:34 AM [facility] REPOSITORY TYPE CODE TESTS RESULT OUT OF REFERENCE UNITS RANGE LAB L9200.1001 11.9-14.4 SEC High PROTIME ISTAT 35.9 Result Comment: Reference Range 11.9 - 14.4 LAB L9200.2000 Normal INR ISTAT 3.20 Result Comment: Critical Value > 3.5 Performed By: #### L9200.0000 #### [facility] Point of Care [address] [place] [address] PROTIME W/INR Collected: 10/30/2017 Status: F Source: [place] 11:55 AM [facility] REPOSITORY TYPE CODE TESTS RESULT OUT OF REFERENCE UNITS RANGE LAB L9200.1001 11.9-14.4 SEC High PROTIME ISTAT 42.6 Result Comment: Reference Range 11.9 - 14.4 LAB L9200.2000 High alert INR ISTAT 3.80 Result Comment: Critical Value > 3.5 Performed By: #### L9200.0000 #### [facility] Point of Care [address] [place] [address] PROTHROMBIN TIME W/INR Collected: 10/30/2017 Status: F Source: NAM 11:55 AM [facility] REPOSITORY Order Comment: Result obtained is for [...] BY SAME. Performed By: #### L300.3900 #### [facility] [place], [address] PROTIME W/INR Collected: 10/23/2017 Status: F Source: [place] 7:55 AM [facility] REPOSITORY TYPE CODE TESTS RESULT OUT OF REFERENCE UNITS RANGE LAB L9200.1001 11.9-14.4 SEC High PROTIME ISTAT 38.9 Result Comment: Reference Range 11.9 - 14.4 LAB L9200.2000 Normal INR ISTAT 3.40 Result Comment: Critical Value > 3.5 Performed By: #### L9200.0000 #### [facility] Point of Care [address] [place] [place] [address] OFFICE VISIT REPORT Observed: 10/17/2017 Status: F Source: NAM 8:08 AM [facility] [address] [place] [address] OFFICE VISIT Date of Service: 10/16/17 MR#: [id number] Acct: [id number] Patient: ELIZABETH HO Rep #: [id number] : 1950 Provider: LEXI Jenkins Age/Sex: 67/F [place] [facility] [place]: Signed Intake Intake Visit Reasons: check [...] Status: F Source: [place] 9:50 AM [facility] REPOSITORY TYPE CODE TESTS RESULT OUT OF REFERENCE UNITS RANGE LAB L9200.1001 11.9-14.4 SEC High PROTIME ISTAT 20.1 Result Comment: Reference Range 11.9 - 14.4 LAB L9200.2000 Normal INR ISTAT 1.70 Result Comment: Critical Value > 3.5 Performed By: #### L9200.0000 #### [facility] Point of Care [address] [place] [address] OFFICE VISIT REPORT Observed: 10/11/2017 Status: F Source: NAM 3:43 PM [facility] [place] [address] OFFICE VISIT Date of Service: MR#: [id number] Acct: [id number] Patient: ELIZABETH HO Rep #: [id number] : 1950 Provider: Yani Rick Age/Sex: 67/F [place] [facility] Status: Signed Intake Intake Visit Reasons: Amb [...] Status: F Source: [place] 7:51 AM [facility] REPOSITORY TYPE CODE TESTS RESULT OUT OF REFERENCE UNITS RANGE LAB L9200.1001 11.9-14.4 SEC High PROTIME ISTAT 31.1 Result Comment: Reference Range 11.9 - 14.4 LAB L9200.2000 Normal INR ISTAT 2.70 Result Comment: Critical Value > 3.5 Performed By: #### L9200.0000 #### [facility] Point [facility] Care [address] [place] [address] FREE T4 Collected: 10/03/2017 Status: F Source: [place] 2:12 PM [facility] REPOSITORY TYPE CODE TESTS RESULT OUT OF RANGE REFERENCE UNITS LAB FT4 0.9-1.7 ng/dL Free T4 1.6 Performed By: #### FT4, CMP, RF, TSH, HBA1C #### [facility] [address] [place], [place] [address] COMP METABOLIC PANEL Collected: 10/03/2017 Status: F Source: [place] 2:12 PM [facility] REPOSITORY TYPE CODE TESTS RESULT OUT OF REFERENCE UNITS RANGE LAB TP 6.3-8.0 g/dL Protein, Total 6.8 LAB ALB 3.9-4.9 g/dL Low Albumin 3.8 LAB CA 8.5-10.2 mg/dL Calcium, Total 9.3 LAB TBIL 0.2-1.3 mg/dL Bilirubin, Total 0.6 LAB ALKP 32-117 U/L Alkaline Phosphatase 54 LAB AST 13-35 U/L AST 17 LAB GLU 74-99 mg/dL Glucose High 229 Result Comment: The [place] Diabetes Association (ADA) provides guidance for cutoff [...] Standards of Medical Care in Diabetes 2016, [place] [employer]. Diabetes Care. 2016.39(Suppl 1). LAB [...] #### FT4, CMP, RF, TSH, HBA1C #### [facility] [employer] [address] [address] RHEUMATOID FACTOR Collected: 10/03/2017 Status: F Source: [place] 2:12 PM [facility] REPOSITORY TYPE CODE TESTS RESULT OUT OF REFERENCE UNITS RANGE LAB RF <16 IU/mL Rheumatoid <10 Factor Performed By: #### FT4, CMP, RF, TSH, HBA1C #### [facility] [employer] [address] [address] TSH Collected: 10/03/2017 Status: F Source: [place] 2:12 PM [facility] REPOSITORY TYPE CODE TESTS RESULT OUT OF RANGE REFERENCE UNITS LAB TSH 0.400-5.500 uU/mL TSH 2.280 Performed By: #### FT4, CMP, RF, TSH, HBA1C #### [facility] [employer] [address] [phone] HEMOGLOBIN A1C Collected: 10/03/2017 Status: F Source: [place] 2:12 PM [facility] REPOSITORY TYPE CODE TESTS RESULT OUT OF REFERENCE UNITS RANGE LAB HGBA1C 4.3-5.6 % High Hemoglobin A1c 6.7 LAB HBA0 mg/dL Est. Average Glucose 146 Result Comment: eAG: (Estimated average glucose) is a calculated value from HgbA1c and is customer contact representative of the average blood glucose level in the last 2-3 month period. Performed By: #### FT4, CMP, RF, TSH, HBA1C #### [facility] [employer] [address] [place], [place] [address] ALBUMIN/CREAT RATIO Collected: 10/03/2017 Status: F Source: [place] 2:12 PM [facility] REPOSITORY TYPE CODE TESTS RESULT OUT OF REFERENCE UNITS RANGE LAB UCRR 20-300 mg/dL 47.7 Creatinine,Ur ine,Ran LAB UALBR 0.0-23.0 mg/L <12.0 Albumin Urine Random LAB UALBCR 0-30 mg/g Not Albumin/Creat calculated Ratio Performed By: #### UACR #### [facility] [employer] [address] [place], [place] [address] CNOV Observed: 10/03/2017 Status: COMPLETED Source: [place] 1:00 PM [facility] REPOSITORY Office Visit (INTMWS) ELIZABETH HO ([id number]) 1950 F Date Time Provider Department 10/03/17 1:00 PM RON MACIAS ([facility]) INTMWS During your visit today, we recorded the following information about you: Temperature Pulse Respiration Blood pressure 98.1 degrees 64/minute 16/minute 122/64 Weight 92.1 kg Ron Macias APRN.CNP 10/03/2017 3:58 PM Signed CC: No chief complaint on file. HPI Elizabeth Ho is a 67 year old female who presents today with fjslvi-yv-xgh for [facility] follow up from 09/17 to [...] need follow up labs- arranged for at [facility] - Anemia 05/15/2013 Chronic anemia of unclear [...] 05/15/2013 - Cellulitis of left leg 01/29/2010 [facility] ER 01/27/[address] [facility] Dx: sepsis, afib, elevated INR - [...] kidney disease) stage 4, GFR 15-29 ml/min ([facility]) -On HD in 2009 for about 6-7 months, but has since improved to the point where she no longer requires it -stable Plan: - monitor renal function - avoid nephrotoxins - DM (diabetes mellitus) type II uncontrolled with renal manifestation Diabetes mellitus NIDDM - ESRD on hemodialysis ([facility]) Dr. Luo ([place]) - Failure to extubation 08/26/2013 Patient was [...] - Heart failure, systolic and diastolic, chronic ([facility]) 07/21/2013 NICM EF 45%, stage [...] implant, and graft 09/01/2010 - Morbid obesity ([facility]) - Morbid obesity ([facility]) Nutrition consult - Muscular deconditioning 09/14/2013 - Non-ischemic cardiomyopathy ([facility]) Cardiomyopathy--[place] - Paroxysmal ventricular tachycardia ([facility]) 04/02/2005 H/o VT/TdP s/p ICD. [...] write COPAT. David placed. Will go to [facility] on Monday. 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 This was not quiroz induced this was RECREATIONAL ASSISTANT. Will discuss with ID - monitor for [...] (Sulfonamide Antibiotics); Vancomycin MEDICATIONS blood sugar diagnostic (ObjectFXUCH ULTRA TEST) test strip before meals and [...] ICD10: N18.4 - BMP completed today at [facility] 3. Hypothyroidism due to medication [...] tolerating PO Vancomycin. on 01/07 pt in [facility] and had ld syndrome rxn to Vanc IV. Date Reviewed: 10/03/2017 Reviewed by: Divya Ramirez Ma - Fully Assessed Reason for Visit: Recheck [92] Cmt: [facility] Hosp follow up CHF, pt states fatigue, not feeling good Reason For Visit History Recorded Primary Visit Diagnosis:Congestive heart failure, NYHA class 3, unspecified congestive heart failure type ([facility]) [I50.9] Other Visit Diagnoses:CKD (chronic kidney disease) stage 4, GFR 15-29 ml/min ([facility]) [N18.4] Hypothyroidism due to medication [E03.2] Type 2 diabetes mellitus with other circulatory complication, with long-term current use of insulin ([facility]) [E11.59, Z79.4] Arthralgia, unspecified joint [M25.50] Skin infection [L08.9] Fungal skin infection [B36.9] Order(s):metOLAzone (ZAROXOLYN) 5 mg tabletTake 5mg Monday, Monday and MondayDisp: Rfl: RHEUMATOID FACTOR BL [SQRF] Order #: [id number] FUTURE nystatin (MYCOSTATIN) powderApply 1 application to [...] [N25.81] INVALID FOR* CAD (coronary artery disease), kaw coronary *INVALID FOR* Priority: F More... More... [...] (ICD) in*INVALID FOR* More... More... DVT prophylaxis [EVL6353] INVALID FOR* More... Thrombocytopenia (HCC) [D69.6] INVALID [...] 10/03/17 PROGRESS Observed: 10/03/2017 Status: COMPLETED Source: [place] 12:51 PM [facility] REPOSITORY HNO ID: [id number] Author: Ron Macias Service: (none) Author Type: Nurse Practitioner Type: Progress Notes Filed: 10/03/2017 3:58 PM Note Text: CC: No chief complaint on file. RAHCEL Ho is a 67 year old female who presents today with jxtthe-ui-ukp for [facility] follow up from 09/17 to [...] need follow up labs- arranged for at [facility] - Anemia 05/15/2013 Chronic anemia of unclear [...] 05/15/2013 - Cellulitis of left leg 01/29/2010 [facility] ER 01/27/[address] [facility] Dx: sepsis, afib, elevated INR - [...] kidney disease) stage 4, GFR 15-29 ml/min ([facility]) -On HD in 2009 for about 6-7 months, but has since improved to the point where she no longer requires it -stable Plan: - monitor renal function - avoid nephrotoxins - DM (diabetes mellitus) type II uncontrolled with renal manifestation Diabetes mellitus NIDDM - ESRD on hemodialysis ([facility]) Dr. Luo ([place]) - Failure to extubation 08/26/2013 Patient was [...] - Heart failure, systolic and diastolic, chronic ([facility]) 07/21/2013 NICM EF 45%, stage I diastolic dysfunction on most recent Echo 06/2013 On admission, clinically euvolemic Plan: - not currently on ACEi/ARB due to renal dysfunction - on carvedilol - continue spironolactone - hold Lasix 40mg PO BID until acute anemia addressed but will diurese with transfusions as needed - ICD in situ - Heart failure, systolic and diastolic, chronic ([facility]) 07/21/2013 NICM EF 45%, stage [...] - Morbid obesity (HCC) - Morbid obesity ([facility]) Nutrition consult - Muscular deconditioning 09/14/2013 - Non-ischemic cardiomyopathy ([facility]) Cardiomyopathy--[place] - Paroxysmal ventricular tachycardia ([facility]) 04/02/2005 H/o VT/TdP s/p ICD. [...] write COPAT. David placed. Will go to [facility] on Monday. 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 This was not quiroz induced this was RECREATIONAL ASSISTANT. Will discuss with ID - monitor for [...] (Sulfonamide Antibiotics); Vancomycin MEDICATIONS blood sugar diagnostic (ObjectFXUCH ULTRA TEST) test strip before meals and [...] ICD10: N18.4 - BMP completed today at [facility] 3. Hypothyroidism due to medication [...] skin folds of left foot Ron Macias APRN.COMMUNITY RELATIONS DIRECTOR Prescription instructions reviewed with patient as applicable. Potential red flag symptoms discussed with the patient. Reviewed appropriate action plan to take if red flag symptoms occur. Patient agreeable to treatment plan. BASIC METABOLIC Collected: 10/03/2017 Status: F Source: NAM PROFILE (BMP) 12:23 PM [facility] REPOSITORY TYPE CODE TESTS RESULT OUT OF [...] GAP 6 Performed By: #### L500.2500 #### [facility] [address] [place], [address] BASIC METABOLIC Collected: 09/29/2017 Status: F Source: [place] PROFILE (BMP) 11:13 AM [facility] REPOSITORY Order Comment: 48 TYPE CODE TESTS [...] GAP 11 Performed By: #### L500.2500 #### [facility] [address] [place], [address] PROTHROMBIN TIME W/INR Collected: 09/29/2017 Status: F Source: [place] 11:11 AM [facility] REPOSITORY Order Comment: Comments: Standing order valid from: 09/21/17 to 09/21/18 Comments: Standing order valid from: 09/21/17 to 09/21/18 TYPE CODE TESTS RESULT OUT OF REFERENCE UNITS RANGE LAB L300.4150 11.7-14.9 SECONDS High PROTIME 40.5 LAB L300.4200 High alert INR 4.2 Result Comment: CRITICAL VALUE VERIFIED. CALLED TO [facility] 09/29/17 1331 Ramiro Rider. RESULTS READ BACK BY [facility] . Performed By: #### L300.3900 #### [facility] [address] [place], [address] PROGRESS Observed: 09/21/2017 Status: COMPLETED Source: [place] 9:38 AM [facility] REPOSITORY HNO ID: [id number] Author: Rosa Cee Service: (none) Author Type: [...] 05/15/2013 - Cellulitis of left leg 01/29/2010 [facility] ER 01/27/[address] [facility] Dx: sepsis, afib, elevated INR - [...] kidney disease) stage 4, GFR 15-29 ml/min ([facility]) -On HD in 2009 for about 6-7 months, but has since improved to the point where she no longer requires it -stable Plan: - monitor renal function - avoid nephrotoxins - DM (diabetes mellitus) type II uncontrolled with renal manifestation Diabetes mellitus NIDDM - ESRD on hemodialysis ([facility]) Dr. Luo ([place]) - Failure to extubation 08/26/2013 Patient was [...] - Heart failure, systolic and diastolic, chronic ([facility]) 07/21/2013 NICM EF 45%, stage I diastolic dysfunction on most recent Echo 06/2013 On admission, clinically euvolemic Plan: - not currently on ACEi/ARB due to renal dysfunction - on carvedilol - continue spironolactone - hold Lasix 40mg PO BID until acute anemia addressed but will diurese with transfusions as needed - ICD in situ - Heart failure, systolic and diastolic, chronic ([facility]) 07/21/2013 NICM EF 45%, stage [...] implant, and graft 09/01/2010 - Morbid obesity ([facility]) - Morbid obesity ([facility]) Nutrition consult - Muscular deconditioning 09/14/2013 - Non-ischemic cardiomyopathy ([facility]) Cardiomyopathy--[place] - Paroxysmal ventricular tachycardia ([facility]) 04/02/2005 H/o VT/TdP s/p ICD. [...] write COPAT. David placed. Will go to [facility] on Monday. 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 This was not quiroz induced this was RECREATIONAL ASSISTANT. Will discuss with ID - monitor for [...] (Sulfonamide Antibiotics); Vancomycin MEDICATIONS blood sugar diagnostic (Swyft MediaTOUCH ULTRA TEST) test strip before meals and [...] APRN.MONA CNOV Observed: 09/21/2017 Status: COMPLETED Source: [place] 9:30 AM [facility] REPOSITORY Office Visit ([facility]) ELIZABETH HO ([id number]) 1950 F Date Time Provider Department 09/21/17 [...] need follow up labs- arranged for at [facility] - Anemia 05/15/2013 Chronic anemia of unclear [...] 05/15/2013 - Cellulitis of left leg 01/29/2010 [facility] ER 01/27/[address] [facility] Dx: sepsis, afib, elevated INR - [...] kidney disease) stage 4, GFR 15-29 ml/min ([facility]) -On HD in 2009 for about 6-7 months, but has since improved to the point where she no longer requires it -stable Plan: - monitor renal function - avoid nephrotoxins - DM (diabetes mellitus) type II uncontrolled with renal manifestation Diabetes mellitus NIDDM - ESRD on hemodialysis ([facility]) Dr. Luo ([place]) - Failure to extubation 08/26/2013 Patient was [...] - Heart failure, systolic and diastolic, chronic ([facility]) 07/21/2013 NICM EF 45%, stage I diastolic dysfunction on most recent Echo 06/2013 On admission, clinically euvolemic Plan: - not currently on ACEi/ARB due to renal dysfunction - on carvedilol - continue spironolactone - hold Lasix 40mg PO BID until acute anemia addressed but will diurese with transfusions as needed - ICD in situ - Heart failure, systolic and diastolic, chronic ([facility]) 07/21/2013 NICM EF 45%, stage [...] - Morbid obesity (HCC) - Morbid obesity ([facility]) Nutrition consult - Muscular deconditioning 09/14/2013 - Non-ischemic cardiomyopathy ([facility]) Cardiomyopathy--[place] - Paroxysmal ventricular tachycardia ([facility]) 04/02/2005 H/o VT/TdP s/p ICD. [...] write COPAT. David placed. Will go to [facility] on Monday. 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 This was not quiroz induced this was RECREATIONAL ASSISTANT. Will discuss with ID - monitor for [...] (Sulfonamide Antibiotics); Vancomycin MEDICATIONS blood sugar diagnostic (ObjectFXUCH ULTRA TEST) test strip before meals and [...] tolerating PO Vancomycin. on 01/07 pt in [facility] and had ld syndrome rxn [...] [N25.81] INVALID FOR* CAD (coronary artery disease), kaw coronary *INVALID FOR* Priority: F More... More... [...] (ICD) in*INVALID FOR* More... More... DVT prophylaxis [OOE8548] INVALID FOR* More... Thrombocytopenia (HCC) [D69.6] INVALID [...] DISCHARGE SUMMARY Observed: 09/20/2017 Status: F Source: [place] 4:10 PM [facility] REPOSITORY [facility] Medical Records Department [address] [place] [address] [place] [address] Discharge Summary 09/20/17 1604 MR#: [id number] Acct: [id number] Name: ELIZABETH HO Rep #: [id number] : 1950 67 From: Jose Castillo MD PCP: Williams Parekh MD Status: ADM IN Y Location: [place] [address] Discharge Date and Diagnosis - Problem List [...] clinically compensated. She was also seen by bicycle repairer who recommended an increase in her metolazone [...] applicable Code Visit Inpatient E AND M: 65536 Disch Hosp 09/20/17 1610 <Electronically signed by Jose Castillo MD> Date Jose Castillo MD Cosigner Signature (if applicable): Date CC: Jose Castillo MD; Williams Parekh MD Signed DISCHARGE INSTRUCTION Observed: 09/20/2017 Status: F Source: [place] 4:04 PM [facility] REPOSITORY [facility] Medical Records Department [address] [place] [address] Instructions for Home/Discharge Instructions 09/20/17 1603 MR#: [id number] Acct: [id number] Name: ELIZABETH HO Bright Rep #: [id number] : 1950 67 From: Jose Castillo MD [...] 1 Week Proposed Discharge Date: 09/20/17 09/20/17 2166 <Electronically signed by Jose Castillo MD> Date Jose Castillo MD CC: Williams Parekh MD; Michael See MD 12 LEAD ELECTROCARDIOGRAM Observed: 09/20/2017 Status: F Source: [place] 2:40 PM [facility] REPOSITORY [facility] Cardiovascular Services [address] [address] 12 Lead EKG 09/17/17 0930 MR#: [id number] Acct: [id number] Name: ELIZABETH HO Rep #: [id number] : 1950 67 From: Michael See MD Attending Dr: Anna CUELLAR,Jose Status: ADM IN Ordering Dr: Douglas Li MD Date: 09/17/17 Location: [facility] Sex: F C Admitted: 09/17/17 Test Reason [...] Abnormal ECG Confirmed by ESA CUELLAR, MICHAEL ([id number]), purchasing expeditor CAT CONKLIN ([id number]) on 09/20/2017 2:40:32 PM Referred By: JEN Confirmed By:MICHAEL SEE MD 09/20/17 1440 Date Michael See MD CC: DOUGLAS LI MD; Jose Castillo MD; Williams Parekh MD Signed PROTIME W/INR Collected: 09/20/2017 Status: F Source: [place]AM [place] 2:25 PM [facility] REPOSITORY TYPE CODE TESTS RESULT OUT OF REFERENCE UNITS RANGE LAB L9200.1001 11.9-14.4 SEC High PROTIME ISTAT 22.8 Result Comment: Reference Range 11.9 - 14.4 LAB L9200.2000 Normal INR ISTAT 2.00 Result Comment: Critical Value > 3.5 Performed By: #### L9200.0000 #### [facility] Point of Care [address] [place], [place] [address] BASIC METABOLIC Collected: 09/20/2017 Status: F Source: NAM PROFILE (BMP) 12:35 PM [facility] REPOSITORY Order Comment: VERY HARD STICK TYPE [...] GAP 8 Performed By: #### L500.2500 #### [facility] [address] [place], [place], [address] BEDSIDE GLUCOSE Collected: 09/20/2017 Status: F Source: [place]AM 11:50 AM [facility] REPOSITORY TYPE CODE TESTS RESULT OUT OF REFERENCE UNITS RANGE LAB L501.080 70-110 mg/dL High BEDSIDE GLU 238 Result Comment: MANAGEMENT OF PATIENT CARE PER NURSING PROTOCOL Performed By: #### L501.080 #### [facility] Point of Care [address] [place] [address] BEDSIDE GLUCOSE Collected: 09/20/2017 Status: F Source: [place] 6:54 AM [facility] REPOSITORY TYPE CODE TESTS RESULT OUT OF RANGE REFERENCE UNITS LAB L501.080 70-110 mg/dL Normal BEDSIDE GLU 105 Result Comment: MANAGEMENT OF PATIENT CARE PER NURSING PROTOCOL Performed By: #### L501.080 #### [facility] Point of Care [address] [place] [address] BEDSIDE GLUCOSE Collected: 09/19/2017 Status: F Source: [place] 10:00 PM [facility] REPOSITORY TYPE CODE TESTS RESULT OUT OF RANGE REFERENCE UNITS LAB L501.080 70-110 mg/dL Normal BEDSIDE GLU 85 Result Comment: MANAGEMENT OF PATIENT CARE PER NURSING PROTOCOL Performed By: #### L501.080 #### [facility] Point of Care [address] [place] [address] BEDSIDE GLUCOSE Collected: 09/19/2017 Status: F Source: [place] 4:37 PM [facility] REPOSITORY TYPE CODE TESTS RESULT OUT OF REFERENCE UNITS RANGE LAB L501.080 70-110 mg/dL High BEDSIDE GLU 167 Result Comment: MANAGEMENT OF PATIENT CARE PER NURSING PROTOCOL Performed By: #### L501.080 #### [facility] Point of Care [address] [place] [address] BEDSIDE GLUCOSE Collected: 09/19/2017 Status: F Source: NAM 11:10 AM [facility] REPOSITORY TYPE CODE TESTS RESULT OUT OF REFERENCE UNITS RANGE LAB L501.080 70-110 mg/dL High BEDSIDE GLU 192 Result Comment: MANAGEMENT OF PATIENT CARE PER NURSING PROTOCOL Performed By: #### L501.080 #### [facility] Point of Care [address] [place] [address] BEDSIDE GLUCOSE Collected: 09/19/2017 Status: F Source: NAM 6:56 AM [facility] REPOSITORY TYPE CODE TESTS RESULT OUT OF REFERENCE UNITS RANGE LAB L501.080 70-110 mg/dL High BEDSIDE GLU 173 Result Comment: MANAGEMENT OF PATIENT CARE PER NURSING PROTOCOL Performed By: #### L501.080 #### [facility] Point of Care [address] [place], [place] [address] PROTHROMBIN TIME W/INR Collected: 09/19/2017 Status: F Source: NAM 6:25 AM [facility] REPOSITORY TYPE CODE TESTS RESULT OUT OF RANGE REFERENCE UNITS LAB L300.4150 11.7-14.9 SECONDS High PROTIME 31.7 LAB L300.4200 Normal INR 3.0 Performed By: #### L300.3900 #### [facility] [address] [place], [address] BASIC METABOLIC Collected: 09/19/2017 Status: F Source: [place] PROFILE (BMP) 6:25 AM [facility] REPOSITORY TYPE CODE TESTS RESULT OUT OF [...] GAP 9 Performed By: #### L500.2500 #### [facility] [address] [place], [address] BEDSIDE GLUCOSE Collected: 09/18/2017 Status: F Source: NAM 10:34 PM [facility] REPOSITORY TYPE CODE TESTS RESULT OUT OF REFERENCE UNITS RANGE LAB L501.080 70-110 mg/dL High BEDSIDE GLU 167 Result Comment: MANAGEMENT OF PATIENT CARE PER NURSING PROTOCOL Performed By: #### L501.080 #### [facility] Point of Care [address] [place] [address] BEDSIDE GLUCOSE Collected: 09/18/2017 Status: F Source: [place]AM 4:29 PM [facility] REPOSITORY TYPE CODE TESTS RESULT OUT OF REFERENCE UNITS RANGE LAB L501.080 70-110 mg/dL High BEDSIDE GLU 250 Result Comment: MANAGEMENT OF PATIENT CARE PER NURSING PROTOCOL Performed By: #### L501.080 #### [facility] Point of Care [address] [place] [address] BEDSIDE GLUCOSE Collected: 09/18/2017 Status: F Source: NAM 11:26 AM [facility] REPOSITORY TYPE CODE TESTS RESULT OUT OF REFERENCE UNITS RANGE LAB L501.080 70-110 mg/dL High BEDSIDE GLU 235 Result Comment: MANAGEMENT OF PATIENT CARE PER NURSING PROTOCOL Performed By: #### L501.080 #### [facility] Point of Care [address] [place] [address] BEDSIDE GLUCOSE Collected: 09/18/2017 Status: F Source: [place]AM 8:56 AM [facility] REPOSITORY TYPE CODE TESTS RESULT OUT OF REFERENCE UNITS RANGE LAB L501.080 70-110 mg/dL High BEDSIDE GLU 146 Result Comment: MANAGEMENT OF PATIENT CARE PER NURSING PROTOCOL Performed By: #### L501.080 #### [facility] Point of Care [address] [place] [address] CBC-COMPLETE BLOOD CNT Collected: 09/18/2017 Status: F Source: NAM NO DIFF 6:52 AM [facility] REPOSITORY TYPE CODE TESTS RESULT OUT OF [...] MPV 10.7 Performed By: #### L100.0500 #### [facility] [address] [facility] [place], [place], [address] PROTHROMBIN TIME W/INR Collected: 09/18/2017 Status: F Source: [place] 6:52 AM [facility] REPOSITORY Order Comment: CRITICAL VALUE VERIFIED. CALLED TO [facility] 09/18/17 0731 Rayne Nicole. RESULTS READ BACK BY SARAH . TYPE CODE TESTS RESULT OUT OF REFERENCE UNITS RANGE LAB L300.4150 11.7-14.9 SECONDS High PROTIME 39.4 LAB L300.4200 High alert INR 4.0 Performed By: #### L300.3900 #### [facility] [address] [place], [address] BASIC METABOLIC Collected: 09/18/2017 Status: F Source: [place] PROFILE (BMP) 6:52 AM [facility] REPOSITORY TYPE CODE TESTS RESULT OUT OF [...] 9 Performed By: #### L500.2500, L500.4100 #### [facility] [address] [place], [address] LIPID PROFILE Collected: 09/18/2017 Status: F Source: [place] 6:52 AM [facility] REPOSITORY TYPE CODE TESTS RESULT OUT OF [...] 15 Performed By: #### L500.2500, L500.4100 #### [facility] [address] [place], [address] BEDSIDE GLUCOSE Collected: 09/18/2017 Status: F Source: NAM 6:41 AM [facility] REPOSITORY TYPE CODE TESTS RESULT OUT OF REFERENCE UNITS RANGE LAB L501.080 70-110 mg/dL High BEDSIDE GLU 112 Result Comment: MANAGEMENT OF PATIENT CARE PER NURSING PROTOCOL Performed By: #### L501.080 #### [facility] Point of Care [address] [place] [address] TROPONIN-I Collected: 09/17/2017 Status: F Source: NAM 11:00 PM [facility] REPOSITORY Order Comment: 'TROP' Serial specimen #1, #2 or #3: 3 TYPE CODE TESTS RESULT OUT OF RANGE REFERENCE UNITS LAB L501.4010 <0.045 ng/mL Normal < 0.015 TROPONIN-I Result Comment: TROPONIN-I EXPECTED VALUES <0.045 Negative 0.045 - 0.590 Consistent with Cardiac Damage > OR = 0.600 Critical Value Not every elevated troponin is indicative of ME. These values should be used with clinical judgement in examining the patient's clinical picture for diagnosis. To establish a diagnosis of ME versus myocardial injury, there must be a demonstrated rise and/or fall in the troponin values, in addition to ischemic symptoms, EKG changes, new regional wall motion abnormality, and/or angiographical evidence. PLEASE NOTE: REFERENCE RANGES EDITED 17 Performed By: #### L501.4010 #### [facility] [address] [place], [address] BEDSIDE GLUCOSE Collected: 09/17/2017 Status: F Source: NAM 10:11 PM [facility] REPOSITORY TYPE CODE TESTS RESULT OUT OF REFERENCE UNITS RANGE LAB L501.080 70-110 mg/dL High BEDSIDE GLU 136 Result Comment: MANAGEMENT OF PATIENT CARE PER NURSING PROTOCOL Performed By: #### L501.080 #### [facility] Point of Care [address] [place] [address] CONSULTATION Observed: 09/17/2017 Status: F Source: NAM 5:00 PM [facility] REPOSITORY [facility] Medical Records Department [address] [place] [address] Consultation 09/17/17 1641 MR#: [id number] Acct: [id number] Name: ELIZABETH HO Rep #: [id number] : 1950 67 From: Michael See MD PCP: Williams Parekh MD Status: ADM IN Location: [place] [address] Problem List (1) CHF exacerbation Status: Acute [...] Status: Chronic Qualifiers: Coronary Disease-Associated Artery/Lesion type: kaw artery (8) ICD (implantable cardioverter-defibrillator) in place [...] she was recently evaluated by her [facility] bicycle repairer. She states that he adjusted her diuretic [...] Ventricular flutter (Chronic) Rheumatic tricuspid insufficiency (Chronic) penitentiary (current) use of anticoagulants (Chronic) ICD (implantable [...] ICD Psychiatric History: No pertinent psych hx ROBOTIC WELDER History: No pertinent ROBOTIC WELDER history - *Family History Maternal Family History: [...] Sinus rhythm with PACs and PVCs ICD: Uni-Pixel: Energen: Model number: [id number]: Serial number: [id number]: Date implanted: 08/14/2014: Dual-chamber ICD CXR: As [...] was functioning appropriately. She recently had her [facility] follow-up visit. There were no additional recommendations made for further evaluation or care of the aortic valve other than continued medical management and [place] [employer] antibiotic prophylaxis. 5. Mitral valve disorder with mitral valve stenosis/insufficiency This was reassessed per the patient at the [facility] Main campus. She states she was not [...] was discussed with the patient and the [facility] emergency department staff. This note was generated with Purpleation software. It may contain incorrect words, spelling, and punctuation that were not noted in checking the note before signing. 09/17/17 1700 <Electronically signed by Michael See MD> Date Michael See MD Cosigner Signature (if applicable): Date CC: Williams Parekh MD; Michael See MD Signed BEDSIDE GLUCOSE Collected: 09/17/2017 Status: F Source: [place] 4:47 PM [facility] REPOSITORY TYPE CODE TESTS RESULT OUT OF REFERENCE UNITS RANGE LAB L501.080 70-110 mg/dL High BEDSIDE GLU 287 Result Comment: MANAGEMENT OF PATIENT CARE PER NURSING PROTOCOL Performed By: #### L501.080 #### [facility] Point of Care [address] [facility] [place], [place] [address] TROPONIN-I Collected: 09/17/2017 Status: F Source: [place] 4:47 [facility] REPOSITORY Order Comment: 'TROP' Serial specimen #1, #2 or #3: 1 TYPE CODE TESTS RESULT OUT OF RANGE REFERENCE UNITS LAB L501.4010 <0.045 ng/mL Normal < 0.015 TROPONIN-I Result Comment: TROPONIN-I EXPECTED VALUES <0.045 Negative 0.045 - 0.590 Consistent with Cardiac Damage > OR = 0.600 Critical Value Not every elevated troponin is indicative of ME. These values should be used with clinical judgement in examining the patient's clinical picture for diagnosis. To establish a diagnosis of ME versus myocardial injury, there must be a demonstrated rise and/or fall in the troponin values, in addition to ischemic symptoms, EKG changes, new regional wall motion abnormality, and/or angiographical evidence. PLEASE NOTE: REFERENCE RANGES EDITED 17 Performed By: #### L501.4010, L501.5200, L501.9520 #### [facility] [address] [facility] [place], [place], [address] MAGNESIUM Collected: 09/17/2017 Status: F Source: [place] 4:47 PM [facility] REPOSITORY Order Comment: 'TROP' Serial specimen #1, #2 or #3: 1 TYPE CODE TESTS RESULT OUT OF RANGE REFERENCE UNITS LAB L501.5200 1.6-2.6 mg/dL Normal MG 2.2 Performed By: #### L501.4010, L501.5200, L501.9520 #### [facility] [address] [facility] [place], [address] THYROID STIM HORMONE Collected: 09/17/2017 Status: F Source: NAM (TSH) 4:47 PM [facility] REPOSITORY Order Comment: 'TROP' Serial specimen #1, #2 or #3: 1 TYPE CODE TESTS RESULT OUT OF RANGE REFERENCE UNITS LAB L501.9520 0.358-3.74 uIU/mL Normal TSH 1.04 Performed By: #### L501.4010, L501.5200, L501.9520 #### [facility] [address] [place], [address] PROTHROMBIN TIME W/INR Collected: 09/17/2017 Status: F Source: [place] 4:47 PM [facility] REPOSITORY TYPE CODE TESTS RESULT OUT OF REFERENCE UNITS RANGE LAB L300.4150 11.7-14.9 SECONDS High PROTIME 38.1 LAB L300.4200 High alert INR 3.8 Result Comment: CRITICAL VALUE VERIFIED. CALLED TO VIOLETA GARCIA 09/17/17 1752 Sandra Israel. RESULTS READ BACK BY SAME. Performed By: #### L300.3900 #### [facility] [address] [place], [address] HISTORY AND PHYSICAL Observed: 09/17/2017 Status: F Source: NAM EXAM 4:13 PM [facility] REPOSITORY [facility] Medical Records Department [address] [place] [address] History and Physical 09/17/17 1455 MR#: [id number] Acct: [id number] Name: ELIZABETH HO Rep #: [id number] : 1950 67 From: Cyndie GREEN PCP: Williams Parekh MD Status: ADM IN Y Location: [place] [address] ADDENDUM by Loren Mendez on 09/17/17 at [...] LE Lymphedema/PVD, Obesity who presents to the [facility] ED on 09/17/17 with history [...] LE Lymphedema/PVD, Obesity who [facility] [facility] on [facility]17 with history [...] w/ LW in place and 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 Advanced Care Planning Face to Face Time: 20 minutes. 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 6. Type 2 diabetes nprwmwbg-Hcac-Gkyfb before meals at bedtime with sliding scale [...] EMERGENCY DEPARTMENT Observed: 09/17/2017 Status: F Source: [place] SUMMARY 3:29 PM [facility] REPOSITORY [facility] Medical Records Department [address] [place] [address] Emergency Department Summary 09/17/17 1010 MR#: [id number] Acct: [id number] Name: ELIZABETH HO Bright Rep #: [id number] : 1950 67 From: Douglas Li MD [...] a week recently from her doctor in [place]. I discussed with Dr. See, who agrees that medically, inpatient or outpatient may be reasonable. He will evaluate her if admitted. Will discuss with hospitalist. ED Disposition - Plan for ED Patient: Disposition: Acute Care Hospital [facility] Chief Complaint: Chest Pain Diagnosis: CHF exacerbation, JAYESH (acute kidney injury) What to do if you have Problems For any increased pain, shortness of breath, bleeding, nausea or vomiting, chest pain, or any unexpected problems, contact your Primary Care Provider. Call [facility] ([phone]) or report to the closest Emergency Room. Call 911 if necessary. 09/17/17 1529 <Electronically signed by Douglas Li MD> Date Douglas Li MD Cosigner Signature (If Indicated): Date CC: Williams Parekh MD CBC W/DIFF, AUTOMATED Collected: 09/17/2017 Status: F Source: [place] 9:50 AM [facility] REPOSITORY TYPE CODE TESTS RESULT OUT OF [...] Lymph 0.29 Performed By: #### L100.0100 #### [facility] [address] [place], [address] CHEST 1 VIEW Observed: 09/17/2017 Status: F Source: [place] (PORTABLE) 9:50 AM [facility] REPOSITORY [facility] Imaging Services [address] [place] [address] Chest 1 View (Portable) MR#: [id number] Acct: [id number] Name: ELIZABETH HO Rep #: [id number] : 1950 F 67 From: Abe Alamo MD PCP: Williams Parekh MD Status: REG ER Study: Chest 1 View (Portable) Date of Exam: 09/17/17 Exam# [id number] Ordering Dr: Douglas Li MD STUDY: X-RAY [...] CC: DOUGLAS LI MD; Williams Parekh MD Architectural Draftsman: Signed BASIC METABOLIC Collected: 09/17/2017 Status: F Source: [place] PROFILE (BMP) 9:50 AM [facility] REPOSITORY TYPE CODE TESTS RESULT OUT OF [...] 7 Performed By: #### L500.2500, L501.4010 #### [facility] [address] [place], [address] TROPONIN-I Collected: 09/17/2017 Status: F Source: [place]AM 9:50 AM [facility] REPOSITORY TYPE CODE TESTS RESULT OUT OF RANGE REFERENCE UNITS LAB L501.4010 <0.045 ng/mL Normal < 0.015 TROPONIN-I Result Comment: TROPONIN-I EXPECTED VALUES <0.045 Negative 0.045 - 0.590 Consistent with Cardiac Damage > OR = 0.600 Critical Value Not every elevated troponin is indicative of ME. These values should be used with clinical judgement in examining the patient's clinical picture for diagnosis. To establish a diagnosis of ME versus myocardial injury, there must be a demonstrated rise and/or fall in the troponin values, in addition to ischemic symptoms, EKG changes, new regional wall motion abnormality, and/or angiographical evidence. PLEASE NOTE: REFERENCE RANGES EDITED 17 Performed By: #### L500.2500, L501.4010 #### [facility] [address] [place], [address] BNP,B-TYPE NATRIURETIC Collected: 09/17/2017 Status: F Source: [place] PEPTIDE 9:50 AM [facility] REPOSITORY TYPE CODE TESTS RESULT OUT OF RANGE REFERENCE UNITS LAB L503.6620 0-100 pg/mL High B-TYPE 203.7 LILY PEP Performed By: #### L503.6620 #### [facility] [address] [facility] [place], [address] PROGRESS Observed: 09/13/2017 Status: COMPLETED Source: [place] 6:03 PM [facility] REPOSITORY HNO ID: [id number] Author: Ingris George MD Service: (none) Author Type: Physician Type: Progress Notes Filed: 09/14/2017 3:33 PM Note Text: [facility] Department of Cardiovascular Medicine SECTION OF INTERVENTIONAL CARDIOLOGY OUTPATIENT VISIT DATE September 13, 2017 OUTPATIENT VISIT TYPE ESTABLISHED PRIMARY CARE PHYSICIAN: Williams Parekh MD [address] [place] [address] CHIEF COMPLAINT: Patient presents with: CARD Follow [...] - ICD in place - Atrial fibrillation ([facility]) 04/02/2005 H/o pAF on coumadin [...] 05/15/2013 - Cellulitis of left leg 01/29/2010 [facility] ER 01/27/[address] [facility] Dx: sepsis, afib, elevated INR - [...] kidney disease) stage 4, GFR 15-29 ml/min ([facility]) -On HD in 2009 for about 6-7 months, but has since improved to the point where she no longer requires it -stable Plan: - monitor renal function - avoid nephrotoxins - DM (diabetes mellitus) type II uncontrolled with renal manifestation Diabetes mellitus NIDDM - ESRD on hemodialysis ([facility]) Dr. Luo ([place]) - Failure to extubation 08/26/2013 Patient was [...] - Heart failure, systolic and diastolic, chronic ([facility]) 07/21/2013 NICM EF 45%, stage I diastolic dysfunction on most recent Echo 06/2013 On admission, clinically euvolemic Plan: - not currently on ACEi/ARB due to renal dysfunction - on carvedilol - continue spironolactone - hold Lasix 40mg PO BID until acute anemia addressed but will diurese with transfusions as needed - ICD in situ - Heart failure, systolic and diastolic, chronic ([facility]) 07/21/2013 NICM EF 45%, stage [...] - Morbid obesity (HCC) - Morbid obesity ([facility]) Nutrition consult - Muscular deconditioning [...] write COPAT. David placed. Will go to [facility] on Monday. 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 This was not quiroz induced this was RECREATIONAL ASSISTANT. Will discuss with ID - monitor for [...] tolerating PO Vancomycin. on 01/07 pt in [facility] and had ld syndrome rxn to Vanc IV. MEDICATIONS: blood sugar diagnostic (ObjectFXUCH ULTRA TEST) test strip before meals and [...] reviewed an echocardiogram performed by her primary bicycle repairer in June that demonstrates a normal ejection [...] have her echocardiogram either with her primary bicycle repairer or with me as long as she gets one yearly. Addendum Take Metolazone 3X/week for the next 2 weeks then go back to 2X/week PROTHROMBIN TIME W/INR Collected: 09/11/2017 Status: F Source: [place] 10:10 AM [facility] REPOSITORY TYPE CODE TESTS RESULT OUT OF RANGE REFERENCE UNITS LAB L300.4150 11.7-14.9 SECONDS High PROTIME 29.1 LAB L300.4200 Normal INR 2.7 Performed By: #### L300.3900 #### [facility] [address] [place], [address] BASIC METABOLIC PANL Collected: 09/07/2017 Status: F Source: [place] 2:55 PM [facility] [place] REPOSITORY TYPE CODE TESTS RESULT OUT OF REFERENCE UNITS RANGE LAB GLU 74-99 mg/dL Glucose 89 Result Comment: The [place] [employer] Association (ADA) provides guidance for cutoff [...] Standards of Medical Care in Diabetes 2016, [place] [employer]. Diabetes Care. 2016.39(Suppl 1). LAB [...] GFR. Performed By: #### MARIO NTBNP #### [facility] [employer] [address] [place], [place] [address] NT PRO BNP Collected: 09/07/2017 Status: F Source: [place] 2:55 PM [facility] REPOSITORY TYPE CODE TESTS RESULT OUT OF REFERENCE UNITS RANGE LAB PBNP <125 pg/mL High PRO B Natr 2697 Peptide Performed By: #### BMP, NTBNP #### [facility] [employer] [address] [place], [place] [address] CNOV Observed: 09/07/2017 Status: COMPLETED Source: [place] 1:15 PM [facility] REPOSITORY Office Visit (CATHMN) ELIZABETH HO ([id number]) 1950 F Date Time Provider Department 09/07/17 1:15 PM INGRIS GEORGE During your visit today, we recorded the following information about you: Pulse Respiration Blood pressure Weight 62/minute 14/minute 131/61 93.4 kg Height 1.676 m Ingris George MD, MD 09/14/2017 3:33 PM Signed [facility] Department of Cardiovascular Medicine SECTION OF INTERVENTIONAL CARDIOLOGY OUTPATIENT VISIT DATE September 13, 2017 OUTPATIENT VISIT TYPE ESTABLISHED PRIMARY CARE PHYSICIAN: Williams Parekh MD [address] [place] [address] CHIEF COMPLAINT: Patient presents with: CARD Follow [...] 05/15/2013 - Cellulitis of left leg 01/29/2010 [facility] ER 01/27/[address] [facility] Dx: sepsis, afib, elevated INR - [...] kidney disease) stage 4, GFR 15-29 ml/min ([facility]) -On HD in 2009 for about 6-7 months, but has since improved to the point where she no longer requires it -stable Plan: - monitor renal function - avoid nephrotoxins - DM (diabetes mellitus) type II uncontrolled with renal manifestation Diabetes mellitus NIDDM - ESRD on hemodialysis ([facility]) Dr. Luo ([place]) - Failure to extubation 08/26/2013 Patient was [...] - Heart failure, systolic and diastolic, chronic ([facility]) 07/21/2013 NICM EF 45%, stage [...] implant, and graft 09/01/2010 - Morbid obesity ([facility]) - Morbid obesity ([facility]) Nutrition consult - Muscular deconditioning 09/14/2013 - Non-ischemic cardiomyopathy (HCC) Cardiomyopathy--[place] - Paroxysmal ventricular tachycardia ([facility]) 04/02/2005 H/o VT/TdP s/p ICD. [...] write COPAT. David placed. Will go to [facility] on Monday. 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 This was not quiroz induced this was RECREATIONAL ASSISTANT. Will discuss with ID - monitor for [...] tolerating PO Vancomycin. on 01/07 pt in [facility] and had ld syndrome rxn to Vanc IV. MEDICATIONS: blood sugar diagnostic (ObjectFXUCH ULTRA TEST) test strip before meals and [...] reviewed an echocardiogram performed by her primary bicycle repairer in June that demonstrates a normal ejection [...] have her echocardiogram either with her primary bicycle repairer or with me as long as she gets one yearly. Addendum Take Metolazone 3X/week for the next 2 weeks then go back to 2X/week Referring Provider: INGRIS GEORGE [[id number]] Allergies As of Date: 09/07/2017 Noted Allergy Reaction AUGMENTIN (AMOXICILLIN-POT CLAVUL*2013 2 - Rash SULFA (SULFONAMIDE ANTIBIOTICS) 01/10/2005 4 - Hives VANCOMYCIN 08/26/2013 10 - Anaphylaxis Comments: Per pharmacist. Patient tolerating PO Vancomycin. on 01/07 pt in [facility] and had ld syndrome rxn [...] Rfl: BASIC METABOLIC PNL [SQBMP] Order #: [id number] FUTURE NT PRO BNP [SQNTBNP] Order #: [id number] FUTURE Prescriptions as of 09/07/2017 Sig: BLOOD [...] [N25.81] INVALID FOR* CAD (coronary artery disease), kaw coronary *INVALID FOR* Priority: F More... More... [...] (ICD) in*INVALID FOR* More... More... DVT prophylaxis [QLE7601] INVALID FOR* More... Thrombocytopenia (HCC) [D69.6] INVALID [...] 09/14/17 CNCO Observed: 09/07/2017 Status: COMPLETED Source: [place] 12:00 AM [facility] REPOSITORY Letter Text Lashaun Fernando Department of Cardiovascular Medicine [address] [place], [place] [id number] Office: [phone] September 07, 2017 Elizabeth Ho [address] [place] [address] NAME: Elizabeth Ho [facility] NO: [id number] DATE OF SERVICE: 09/07/2017 My pleasure to [...] reviewed an echocardiogram performed by her primary bicycle repairer in June that demonstrates a normal ejection [...] have her echocardiogram either with her primary bicycle repairer or with me as long as she gets one yearly. Please feel free to contact me with any questions. Addendum Take Metolazone 3X/week for the next 2 weeks then go back to 2X/week Sincerely yours, Ingris George MD AK/ph PROTHROMBIN TIME W/INR Collected: 09/04/2017 Status: F Source: [place] 11:13 [facility] REPOSITORY TYPE CODE TESTS RESULT OUT OF RANGE REFERENCE UNITS LAB L300.4150 11.7-14.9 SECONDS High PROTIME 34.9 LAB L300.4200 Normal INR 3.4 Performed By: #### L300.3900 #### [facility] [address] [facility] [place], [place], [address] HEMOGLOBIN A1C Collected: 09/04/2017 Status: F Source: [place] 11:13 AM [facility] REPOSITORY Order Comment: SEND RESULTS TO . TYPE CODE TESTS RESULT OUT OF RANGE REFERENCE UNITS LAB L501.9985 4.2-6.3 % High HGB A1C 6.5 Performed By: #### L501.9985 #### [facility] [address] [place], [address] VITAMIN D,25 HYDROXY Collected: 09/04/2017 Status: F Source: [place] 11:13 AM [facility] REPOSITORY Order Comment: SEND RESULTS TO . [...] (>250 nmol/L) Performed By: #### L506.1000 #### [facility] [place], [address] COMPREHENSIVE METABOLIC Collected: 09/04/2017 Status: F Source: [place] 11:13 AM [facility] REPOSITORY Order Comment: SEND RESULTS TO . [...] Performed By: #### L500.4050, L501.9520, L506.0400 #### [facility] [address] [place], [address] THYROID STIM HORMONE Collected: 09/04/2017 Status: F Source: [place] (TSH) 11:13 AM [facility] REPOSITORY Order Comment: SEND RESULTS TO . TYPE CODE TESTS RESULT OUT OF RANGE REFERENCE UNITS LAB L501.9520 0.358-3.74 uIU/mL Normal TSH 2.88 Performed By: #### L500.4050, L501.9520, L506.0400 #### [facility] [address] [place], [place], [address] T4 FREE DIRECT Collected: 09/04/2017 Status: F Source: [place] 11:13 AM [facility] REPOSITORY Order Comment: SEND RESULTS TO . TYPE CODE TESTS RESULT OUT OF RANGE REFERENCE UNITS LAB L506.0400 0.76-1.46 ng/dL Normal T4 FREE 1.45 DIRECT Performed By: #### L500.4050, L501.9520, L506.0400 #### [facility] [address] [place], [place], [address] CNOV Observed: 08/21/2017 Status: COMPLETED Source: [place] 1:00 PM [facility] REPOSITORY Office Visit (INTMWS) ELIZABETH HO ([id number]) 1950 F Date Time Provider Department 08/21/17 [...] need follow up labs- arranged for at [facility] - Anemia 05/15/2013 Chronic anemia of unclear [...] 05/15/2013 - Cellulitis of left leg 01/29/2010 [facility] ER 01/27/[address] [facility] Dx: sepsis, afib, elevated INR - [...] kidney disease) stage 4, GFR 15-29 ml/min ([facility]) -On HD in 2009 for about 6-7 months, but has since improved to the point where she no longer requires it -stable Plan: - monitor renal function - avoid nephrotoxins - DM (diabetes mellitus) type II uncontrolled with renal manifestation Diabetes mellitus NIDDM - ESRD on hemodialysis ([facility]) Dr. Luo ([place]) - Failure to extubation 08/26/2013 Patient was [...] - Heart failure, systolic and diastolic, chronic ([facility]) 07/21/2013 NICM EF 45%, stage I diastolic dysfunction on most recent Echo 06/2013 On admission, clinically euvolemic Plan: - not currently on ACEi/ARB due to renal dysfunction - on carvedilol - continue spironolactone - hold Lasix 40mg PO BID until acute anemia addressed but will diurese with transfusions as needed - ICD in situ - Heart failure, systolic and diastolic, chronic ([facility]) 07/21/2013 NICM EF 45%, stage [...] write COPAT. David placed. Will go to [facility] on Monday. - Type II or [...] and schedule follow up with endo at [place] - UTI (lower urinary tract infection) RECREATIONAL ASSISTANT not caused by insertion of quiroz 07/09/2013 07/08/2013 Urine culture suggests UTI s/p tx with Augmentin - Readmitted 07/21/2013UA/Urine culture checked on admission to the floor- UA negative-> urine culture >100,000 lactose positive gram - bacilli. This was not quiroz induced this was RECREATIONAL ASSISTANT. Will discuss with ID - monitor for [...] with long- term current use of insulin ([facility]) E11.9 insulin glargine (LANTUS SOLOSTAR U-100 INSULIN) 100 unit/mL (3 mL) inpn Z79.4 COMP METABOLIC PANEL HGB A1C ALBUMIN/CREAT RATIO RND UR 2. Coronary artery disease involving kaw coronary artery of kaw heart without angina pectoris I25.10 3. CKD (chronic kidney disease) stage 4, GFR 15-29 ml/min ([facility]) N18.4 4. PVD (peripheral vascular disease) ([facility]) I73.9 5. Venous (peripheral) insufficiency I87.2 6. Vitamin D deficiency E55.9 VITAMIN D 25 HYDROXY 7. Secondary hyperparathyroidism ([facility]) N25.81 VITAMIN D 25 HYDROXY 8. Implantable cardioverter-defibrillator (ICD) in situ Z95.810 9. Non morbid obesity due to excess calories E66.09 10. Congestive heart failure, NYHA class 3, unspecified congestive heart failure type ([facility]) I50.9 11. Anemia, unspecified type D64.9 12. On home O2 Z99.81 13. Acquired hypothyroidism E03.9 TSH BLD T4 FREE/FREE THYROX 14. PAF (paroxysmal atrial fibrillation) ([facility]) I48.0 warfarin (COUMADIN) 4 mg [...] as noted above. Continue follow up with bicycle repairer. The majority of the visit was spent counseling and/or coordinating care for the patient. Mnba-zi-berm time was at least 25 minutes. Williams Parekh MD Referring Provider: WILLIAMS PAREKH [[id number]] Allergies As of Date: 08/21/2017 Noted Allergy Reaction AUGMENTIN (AMOXICILLIN-POT CLAVUL*2013 2 - Rash SULFA (SULFONAMIDE ANTIBIOTICS) 01/10/2005 4 - Hives VANCOMYCIN 08/26/2013 10 - Anaphylaxis Comments: Per pharmacist. Patient tolerating PO Vancomycin. on 01/07 pt in [facility] and had ld syndrome rxn to Vanc IV. Date Reviewed: 08/21/2017 Reviewed by: Porsha Nicole Cma - Fully Assessed Reason for Visit: Recheck [92] Primary Visit Diagnosis:Type 2 diabetes mellitus without complication, with long-term current use of insulin ([facility]) [E11.9, Z79.4] Other Visit Diagnoses:Coronary artery disease involving kaw coronary artery of kaw heart without angina pectoris [I25.10] CKD (chronic kidney disease) stage 4, GFR 15-29 ml/min ([facility]) [N18.4] PVD (peripheral vascular disease) ([facility]) [I73.9] Venous (peripheral) insufficiency [I87.2] Vitamin D deficiency [E55.9] Secondary hyperparathyroidism ([facility]) [N25.81] Implantable cardioverter-defibrillator (ICD) in situ [Z95.810] Non morbid obesity due to excess calories [E66.09] Congestive heart failure, NYHA class 3, unspecified congestive heart failure type ([facility]) [I50.9] Anemia, unspecified type [D64.9] On home O2 [Z99.81] Acquired hypothyroidism [E03.9] PAF (paroxysmal atrial fibrillation) ([facility]) [I48.0] Order(s):insulin glargine (LANTUS SOLOSTAR U-100 INSULIN) 100 unit/mL (3 mL) inpnInject 42 Units subcutaneously once daily.Disp: 5 PenRfl: 11 levothyroxine (SYNTHROID) 75 mcg tabletTake 1 tablet by mouth every morning on an empty stomach For ThyroidDisp: 90 tabletRfl: 3 COMP METABOLIC PANEL [SQCMP] Order #: [id number] FUTURE HGB A1C [SFNUV3T] Order #: [id number] FUTURE VITAMIN D 25 HYDROXY [SQVITD] Order #: [id number] FUTURE TSH BLD [SQTSH] Order #: [id number] FUTURE T4 FREE/FREE THYROX [SQFT4] Order #: [id number] FUTURE ALBUMIN/CREAT RATIO RND UR [SQUACR] Order #: [id number] FUTURE warfarin (COUMADIN) 4 mg cserty4zs Monday, 2 mg daily rest of the [...] [N25.81] INVALID FOR* CAD (coronary artery disease), kaw coronary *INVALID FOR* Priority: F More... More... [...] (ICD) in*INVALID FOR* More... More... DVT prophylaxis [[id number]] INVALID FOR* More... Thrombocytopenia (HCC) [D69.6] INVALID [...] 08/31/17 PROGRESS Observed: 08/21/2017 Status: COMPLETED Source: [place] 12:58 PM [facility] REPOSITORY HNO ID: [id number] Author: Williams Parekh Service: (none) Author Type: [...] need follow up labs- arranged for at [facility] - Anemia 05/15/2013 Chronic anemia of unclear [...] 05/15/2013 - Cellulitis of left leg 01/29/2010 [facility] ER 01/27/[address] [facility] Dx: sepsis, afib, elevated INR - [...] kidney disease) stage 4, GFR 15-29 ml/min ([facility]) -On HD in 2009 for about 6-7 months, but has since improved to the point where she no longer requires it -stable Plan: - monitor renal function - avoid nephrotoxins - DM (diabetes mellitus) type II uncontrolled with renal manifestation Diabetes mellitus NIDDM - ESRD on hemodialysis ([facility]) Dr. Luo ([place]) - Failure to extubation 08/26/2013 Patient was [...] - Heart failure, systolic and diastolic, chronic ([facility]) 07/21/2013 NICM EF 45%, stage I diastolic dysfunction on most recent Echo 06/2013 On admission, clinically euvolemic Plan: - not currently on ACEi/ARB due to renal dysfunction - on carvedilol - continue spironolactone - hold Lasix 40mg PO BID until acute anemia addressed but will diurese with transfusions as needed - ICD in situ - Heart failure, systolic and diastolic, chronic ([facility]) 07/21/2013 NICM EF 45%, stage [...] implant, and graft 09/01/2010 - Morbid obesity ([facility]) - Morbid obesity ([facility]) Nutrition consult - Muscular deconditioning 09/14/2013 - Non-ischemic cardiomyopathy ([facility]) Cardiomyopathy--[place] - Paroxysmal ventricular tachycardia ([facility]) 04/02/2005 H/o VT/TdP s/p ICD. [...] effect at home, will continue - Thrombocytopenia ([facility]) 07/26/2013 Anemia with thrombocytopenia that [...] write COPAT. David placed. Will go to [facility] on Monday. - Type II or [...] and schedule follow up with endo at [place] - UTI (lower urinary tract infection) RECREATIONAL ASSISTANT not caused by insertion of quiroz 07/09/2013 07/08/2013 Urine culture suggests UTI s/p tx with Augmentin - Readmitted 07/21/2013UA/Urine culture checked on admission to the floor- UA negative-> urine culture >100,000 lactose positive gram - bacilli. This was not quiroz induced this was RECREATIONAL ASSISTANT. Will discuss with ID - monitor for [...] RND UR 2. Coronary artery disease involving kaw coronary artery of kaw heart without angina pectoris I25.10 3. CKD (chronic kidney disease) stage 4, GFR 15-29 ml/min ([facility]) N18.4 4. PVD (peripheral vascular disease) ([facility]) I73.9 5. Venous (peripheral) insufficiency I87.2 6. Vitamin D deficiency E55.9 VITAMIN D 25 HYDROXY 7. Secondary hyperparathyroidism ([facility]) N25.81 VITAMIN D 25 HYDROXY 8. Implantable cardioverter-defibrillator (ICD) in situ Z95.810 9. Non morbid obesity due to excess calories E66.09 10. Congestive heart failure, NYHA class 3, unspecified congestive heart failure type ([facility]) I50.9 11. Anemia, unspecified type D64.9 12. On home O2 Z99.81 13. Acquired hypothyroidism E03.9 TSH BLD T4 FREE/FREE THYROX 14. PAF (paroxysmal atrial fibrillation) ([facility]) I48.0 warfarin (COUMADIN) 4 mg [...] as noted above. Continue follow up with bicycle repairer. The majority of the visit was spent counseling and/or coordinating care for the patient. Xfzo-oe-pqht time was at least 25 minutes. Williams Parekh MD PROTHROMBIN TIME W/INR Collected: 08/21/2017 Status: F Source: [place] 12:09 PM [facility] REPOSITORY TYPE CODE TESTS RESULT OUT OF RANGE REFERENCE UNITS LAB L300.4150 11.7-14.9 SECONDS High PROTIME 28.7 LAB L300.4200 Normal INR 2.7 Performed By: #### L300.3900 #### [facility] [place], [address] CBC Collected: 08/17/2017 Status: F Source: [place] 12:04 PM [facility] REPOSITORY TYPE CODE TESTS RESULT [...] <0.01 Performed By: #### CBC, LIPB #### [facility] [address] [place], [place] [address] LIPID PANEL, BASIC Collected: 08/17/2017 Status: F Source: [place] 12:04 PM [facility] REPOSITORY TYPE CODE TESTS RESULT [...] Desk Reference: National Heart, Lung, and Blood [place]. National Institutes of Health. 2001: NIH Publication No. 01-3305. 2. An International Atherosclerosis Society position paper: global recommendations for the management of dyslipidemia: executive summary, Atherosclerosis. 2014: 232(2):410-413. Performed By: #### CBC, LIPB #### [facility] [address] [place] [address] CNPTOUTREACH Observed: 08/08/2017 Status: COMPLETED Source: [place] 12:00 AM [facility] REPOSITORY Patient Outreach (FAMPST) ELIZABETH HO ([id number]) 1950 F Date Time Provider Department 08/08/17 WILLIAMS PAREKH FAMPST During your visit today, we recorded the following information about you: Allergies As of Date: 08/08/2017 Noted Allergy Reaction AUGMENTIN (AMOXICILLIN-POT CLAVUL*2013 2 - Rash SULFA (SULFONAMIDE ANTIBIOTICS) 01/10/2005 4 - Hives VANCOMYCIN 08/26/2013 10 - Anaphylaxis Comments: Per pharmacist. Patient tolerating PO Vancomycin. on 01/07 pt in [facility] and had ld syndrome rxn to Vanc IV. Date Reviewed: 03/15/2017 Reviewed by: Porsha Nicole Conciliation Court Judge - Fully Assessed Visit Diagnosis:Medication management [Z79.899] Order(s):CBC [SQCBC] Order #: [id number] FUTURE LIPID PANEL BASIC [SQLIPB] Order #: [id number] FUTURE Prescriptions as of 08/08/2017 Sig: X [...] [N25.81] INVALID FOR* CAD (coronary artery disease), kaw coronary *INVALID FOR* Priority: F More... More... [...] (ICD) in*INVALID FOR* More... More... DVT prophylaxis [EQA6079] INVALID FOR* More... Thrombocytopenia [D69.6] INVALID FOR* [...] TIME W/INR Collected: 08/07/2017 Status: F Source: [place] 11:38 AM [facility] REPOSITORY TYPE CODE TESTS RESULT OUT OF RANGE REFERENCE UNITS LAB L300.4150 11.7-14.9 SECONDS High PROTIME 25.9 LAB L300.4200 Normal INR 2.4 Performed By: #### L300.3900 #### [facility] [address] [facility] [place], [address] PACEMAKER CHECK Observed: 08/03/2017 Status: F Source: [place] 11:51 AM [facility] REPOSITORY [facility] [address] [place] [address] Pacemaker Check Date of Service: 07/03/17 1607 MR#: [id number] Acct: [id number] Name: ELIZABETH HO Rep #: [id number] : 1950 From: Lela Bullock Age/Sex: 66/F [place] [facility] [place]: Signed Comments Summary Comments: Dual Chamber ICD Evaluation: Interrogation completed per LAUNDRY BAG PUNCH OPERATOR order d/t pt in ER last [...] with PAC's. Battery longevity approx 10 yrs. FIELD SERVICES DIRECTOR=<1%. Lead impedances, sensing and pace/sense thresholds remain stable. RV amplitude decreased with adequate safety margin. Counters cleared. Next f/u appt scheduled for in 3 mos. Pt had o.v today with NORMA Díaz for further cardiac evaluation. Device Device Date Interviewed: 06/21/17 Follow-up Location: in office Interview Reason: physician request Upkeep Mechanic: Uni-Pixel Name: Jennifer IS-1/DF-1-DR Model: [id number] Serial #: [id number] Implant Date: 08/14/14 Year(s): 2 Implant Physician: [...] Yes Incision well healed Leads Lead #1 Upkeep Mechanic Lead 1: Guidant Model Lead 1: [id number] Serial# Lead 1: [id number] Date Implanted Lead 1: 06/25/07 Position Lead 1: RA Lead #2 Upkeep Mechanic Lead 2: Medtronic Model Lead 2: 5076 Serial# Lead 2: [id number] Date Implanted Lead 2: 06/25/07 Position Lead 2: RV Additional Details: RV pace/sense lead Lead #3 Upkeep Mechanic Lead 3: Guidant Model Lead 3: 0184 Serial# Lead 3: [id number] Date Implanted Lead 3: 07/21/07 Position Lead [...] Ventricular tachycardia (paroxysmal) I47.2 S/P AICD 07/03/17 6949 <Electronically signed by Lela Bullock > Date Lela Bullock 08/03/17 1151<Electronically signed by Michael See MD> Cosigner Signature: Date (if applicable) Michael See MD CC: CNOV Observed: 08/01/2017 Status: COMPLETED Source: [place] 2:00 PM [facility] REPOSITORY Office Visit (INTMWS) ELIZABETH HO ([id number]) 1950 F Date Time Provider Department 4/10/18 2:00 PM RON MACIAS (MONA) [place]WS During your visit today, we recorded the following information about you: Temperature Pulse Respiration Blood pressure 98.4 degrees 65/minute 16/minute 128/82 Weight 93.4 kg Ron Macias APRN.CNP 08/01/2017 2:28 PM Signed CC: Patient presents with: Recheck: [facility] follow up, cellulitits HPI Elizabeth Ho is a 67 year old female who presents today for [facility] ER follow up from 07/21/17. [...] need follow up labs- arranged for at [facility] - Anemia 05/15/2013 Chronic anemia of unclear [...] - Atrial fibrillation (HCC) - Atrial fibrillation ([facility]) 04/02/2005 Currently NSR Plan: - Supratherapeutic INR on presentation, holding Warfarin - holding heparin given GIB and risksANDgt;benefits - on carvedilol - ICD in place - Atrial fibrillation ([facility]) 04/02/2005 H/o pAF on coumadin [...] 05/15/2013 - Cellulitis of left leg 01/29/2010 [facility] ER 01/27/[address] [facility] Dx: sepsis, afib, elevated INR - [...] kidney disease) stage 4, GFR 15-29 ml/min ([facility]) -On HD in 2009 for about 6-7 months, but has since improved to the point where she no longer requires it -stable Plan: - monitor renal function - avoid nephrotoxins - DM (diabetes mellitus) type II uncontrolled with renal manifestation Diabetes mellitus NIDDM - ESRD on hemodialysis ([facility]) Dr. Luo ([place]) - Failure to extubation 08/26/2013 Patient was [...] - Heart failure, systolic and diastolic, chronic ([facility]) 07/21/2013 NICM EF 45%, stage I diastolic dysfunction on most recent Echo 06/2013 On admission, clinically euvolemic Plan: - not currently on ACEi/ARB due to renal dysfunction - on carvedilol - continue spironolactone - hold Lasix 40mg PO BID until acute anemia addressed but will diurese with transfusions as needed - ICD in situ - Heart failure, systolic and diastolic, chronic ([facility]) 07/21/2013 NICM EF 45%, stage [...] - Morbid obesity (HCC) - Morbid obesity ([facility]) Nutrition consult - Muscular deconditioning [...] write COPAT. David placed. Will go to [facility] on Monday. - Type II or [...] and schedule follow up with endo at [place] - UTI (lower urinary tract infection) RECREATIONAL ASSISTANT not caused by insertion of quiroz 07/09/2013 07/08/2013 Urine culture suggests UTI s/p tx with Augmentin - Readmitted 07/21/2013UA/Urine culture checked on admission to the floor- UA negative-ANDgt; urine culture ANDgt;100,000 lactose positive gram - bacilli. This was not quiroz induced this was RECREATIONAL ASSISTANT. Will discuss with ID - monitor for [...] Patient agreeable to treatment plan. Ron Macias APRN.COMMUNITY RELATIONS DIRECTOR Referring Provider: SELF [200] Allergies As of Date: 08/01/2017 Noted Allergy Reaction AUGMENTIN (AMOXICILLIN-POT CLAVUL*2013 2 - Rash SULFA (SULFONAMIDE ANTIBIOTICS) 01/10/2005 4 - Hives VANCOMYCIN 08/26/2013 10 - Anaphylaxis Comments: Per pharmacist. Patient tolerating PO Vancomycin. on 01/07 pt in [facility] and had ld syndrome rxn to Vanc IV. Date Reviewed: 03/15/2017 Reviewed by: Porsha Nicole Conciliation Court Judge - Fully Assessed Reason for Visit: Recheck [92] Cmt: [facility] follow up, cellulitits Primary Visit [...] [N25.81] INVALID FOR* CAD (coronary artery disease), kaw coronary *INVALID FOR* Priority: F More... More... [...] (ICD) in*INVALID FOR* More... More... DVT prophylaxis [PTC8692] INVALID FOR* More... Thrombocytopenia [D69.6] INVALID FOR* [...] 08/01/17 PROGRESS Observed: 08/01/2017 Status: COMPLETED Source: [place] 1:45 PM [facility] REPOSITORY HNO ID: [id number] Author: Ron Macias Service: (none) Author Type: Nurse Practitioner Type: Progress Notes Filed: 08/01/2017 2:28 PM Note Text: CC: Patient presents with: Recheck: [facility] follow up, cellulitits HPI Elizabeth Ho is a 67 year old female who presents today for [facility] ER follow up from 07/21/17. [...] - ICD in place - Atrial fibrillation ([facility]) 04/02/2005 H/o pAF on coumadin [...] 05/15/2013 - Cellulitis of left leg 01/29/2010 [facility] ER 01/27/[address] [facility] Dx: sepsis, afib, elevated INR - [...] kidney disease) stage 4, GFR 15-29 ml/min ([facility]) -On HD in 2009 for about 6-7 months, but has since improved to the point where she no longer requires it -stable Plan: - monitor renal function - avoid nephrotoxins - DM (diabetes mellitus) type II uncontrolled with renal manifestation Diabetes mellitus NIDDM - ESRD on hemodialysis ([facility]) Dr. Luo ([place]) - Failure to extubation 08/26/2013 Patient was [...] - Heart failure, systolic and diastolic, chronic ([facility]) 07/21/2013 NICM EF 45%, stage I diastolic dysfunction on most recent Echo 06/2013 On admission, clinically euvolemic Plan: - not currently on ACEi/ARB due to renal dysfunction - on carvedilol - continue spironolactone - hold Lasix 40mg PO BID until acute anemia addressed but will diurese with transfusions as needed - ICD in situ - Heart failure, systolic and diastolic, chronic ([facility]) 07/21/2013 NICM EF 45%, stage [...] of other vascular device, implant, and graft ([facility]) 09/01/2010 - Morbid obesity ([facility]) - Morbid obesity ([facility]) Nutrition consult - Muscular deconditioning 09/14/2013 - Non-ischemic cardiomyopathy ([facility]) Cardiomyopathy--[place] - Paroxysmal ventricular tachycardia ([facility]) 04/02/2005 H/o VT/TdP s/p ICD. S/p defibrillator firing on 03/15/13 in the context of hypokalemia. Electrically quiescent on admission 06/2013 Plan: Monitor lytes and replete prn - Peripheral vascular disease ([facility]) - Pressure ulcer, other site(707.09) [...] effect at home, will continue - Thrombocytopenia ([facility]) 07/26/2013 Anemia with thrombocytopenia that [...] write COPAT. David placed. Will go to [facility] on Monday. - Type II or [...] and schedule follow up with endo at [place] - UTI (lower urinary tract infection) RECREATIONAL ASSISTANT not caused by insertion of quiroz 07/09/2013 07/08/2013 Urine culture suggests UTI s/p tx with Augmentin - Readmitted 07/21/2013UA/Urine culture checked on admission to the floor- UA negative-> urine culture >100,000 lactose positive gram - bacilli. This was not quiroz induced this was RECREATIONAL ASSISTANT. Will discuss with ID - monitor for [...] Patient agreeable to treatment plan. Ron Kurtis, MORTGAGE ORIGINATOR.COMMUNITY RELATIONS DIRECTOR PROTHROMBIN TIME W/INR Collected: 07/31/2017 Status: F Source: [place] 10:17 AM [facility] REPOSITORY TYPE CODE TESTS RESULT OUT OF RANGE REFERENCE UNITS LAB L300.4150 11.7-14.9 SECONDS High PROTIME 19.3 LAB L300.4200 Normal INR 1.6 Performed By: #### L300.3900 #### [facility] [address] [facility] [place], [address] PROTHROMBIN TIME W/INR Collected: 07/27/2017 Status: F Source: [place] 10:57 AM [facility] REPOSITORY Order Comment: Send Results To: [facility] Reason for Laboratory Test coumadin TYPE CODE TESTS RESULT OUT OF RANGE REFERENCE UNITS LAB L300.4150 11.7-14.9 SECONDS High PROTIME 24.8 LAB L300.4200 Normal INR 2.2 Performed By: #### L300.3900 #### [facility] [address] [facility] [place], [address] DISCHARGE SUMMARY Observed: 07/25/2017 Status: F Source: [place] 2:17 PM [facility] REPOSITORY [facility] Medical Records Department [address] [place] [address] Discharge Summary 07/25/17 1314 MR#: [id number] Acct: [id number] Name: ELIZABETH HO Rep #: [id number] : 1950 67 From: Jose Castillo MD PCP: Williams Parekh MD Status: ADM IN Location: [address] Discharge Date and Diagnosis - Problem [...] Ventricular flutter (Chronic) Rheumatic tricuspid insufficiency (Chronic) penitentiary (current) use of anticoagulants (Chronic) ICD (implantable [...] with her primary care doctor and her bicycle repairer in 1-2 weeks. [] 1. Left leg [...] applicable Code Visit Inpatient E AND M: 84262 Disch Hosp 07/25/17 1417 <Electronically signed by Jose Castillo MD> Date Jose Castillo MD Cosigner Signature (if applicable): Date CC: Jose Castillo MD; Williams Parekh MD Signed DISCHARGE INSTRUCTION Observed: 07/25/2017 Status: F Source: [place] 1:13 PM [facility] REPOSITORY [facility] Medical Records Department [address] [place] [address] Instructions for Home/Discharge Instructions 07/25/17 1310 MR#: [id number] Acct: [id number] Name: ELIZABETH HO Rep #: [id number] : 1950 67 From: Jose Castillo MD [...] 07/25/2017 Status: F Source: [place] 11:47 AM [facility] REPOSITORY TYPE CODE TESTS RESULT OUT OF REFERENCE UNITS RANGE LAB L501.080 70-110 mg/dL High BEDSIDE GLU 193 Result Comment: MANAGEMENT OF PATIENT CARE PER NURSING PROTOCOL Performed By: #### L501.080 #### [facility] Point of Care [address] [place], [place] [address] BEDSIDE GLUCOSE Collected: 07/25/2017 Status: F Source: [place] 8:28 AM [facility] REPOSITORY TYPE CODE TESTS RESULT OUT OF RANGE REFERENCE UNITS LAB L501.080 70-110 mg/dL Normal BEDSIDE GLU 108 Result Comment: MANAGEMENT OF PATIENT CARE PER NURSING PROTOCOL Performed By: #### L501.080 #### [facility] Point of Care [address] [place] [address] PROTHROMBIN TIME W/INR Collected: 07/25/2017 Status: F Source: [place] 5:00 AM [facility] REPOSITORY TYPE CODE TESTS RESULT OUT OF REFERENCE UNITS RANGE LAB L300.4150 11.7-14.9 SECONDS High PROTIME 43.3 LAB L300.4200 High alert INR 4.5 Result Comment: CRITICAL VALUE VERIFIED. CALLED TO NEETA WARREN 07/25/17617 [place]. RESULTS READ BACK BY SAME . Performed By: #### L300.3900 #### [facility] [address] [place], [address] BEDSIDE GLUCOSE Collected: 07/24/2017 Status: F Source: [place] 10:04 PM [facility] REPOSITORY TYPE CODE TESTS RESULT OUT OF REFERENCE UNITS RANGE LAB L501.080 70-110 mg/dL High BEDSIDE GLU 123 Result Comment: MANAGEMENT OF PATIENT CARE PER NURSING PROTOCOL Performed By: #### L501.080 #### [facility] Point of Care [address] [place] [address] VENOUS DUPLEX LOWER Observed: 07/24/2017 Status: F Source: [place]REM[place] 5:24 PM [facility] REPOSITORY [facility] Cardiovascular Services [address] [place] [address] Venous Duplex US - Deandre Extrem 07/24/17 0946 MR#: [id number] Acct: [id number] Name: ELIZABETH HO Rep #: [id number] : 1950 67 From: Ha Herman MD Attending Dr[facility] Status: ADM IN Ordering Dr: Piter Laureano [...] By: Michelle Linton RVT 07/24/171722 Date Ha Herman MD CC: Jose Castillo MD; Williams Parekh MD; Piter Laureano MD Date Dictated: 07/24/17945 Date Transcribed: 07/24/171722 Architectural Draftsman: Signed BEDSIDE GLUCOSE Collected: 07/24/2017 Status: F Source: [place] 4:41 PM [facility] REPOSITORY TYPE CODE TESTS RESULT OUT OF REFERENCE UNITS RANGE LAB L501.080 70-110 mg/dL High BEDSIDE GLU 269 Result Comment: MANAGEMENT OF PATIENT CARE PER NURSING PROTOCOL Performed By: #### L501.080 #### [facility] Point of Care [address] [place] [address] BEDSIDE GLUCOSE Collected: 07/24/2017 Status: F Source: [place] 11:31 AM [facility] REPOSITORY TYPE CODE TESTS RESULT OUT OF REFERENCE UNITS RANGE LAB L501.080 70-110 mg/dL High BEDSIDE GLU 200 Result Comment: Insulin Given MANAGEMENT OF PATIENT CARE PER NURSING PROTOCOL Performed By: #### L501.080 #### [facility] Point of Care [address] [place] [address] BEDSIDE GLUCOSE Collected: 07/24/2017 Status: F Source: [place] 7:41 AM [facility] REPOSITORY TYPE CODE TESTS RESULT OUT OF REFERENCE UNITS RANGE LAB L501.080 70-110 mg/dL High BEDSIDE GLU 113 Result Comment: MANAGEMENT OF PATIENT CARE PER NURSING PROTOCOL Performed By: #### L501.080 #### [facility] Point of Care [address] [place] [address] PROTHROMBIN TIME W/INR Collected: 07/24/2017 Status: F Source: [place] 7:12 AM [facility] REPOSITORY TYPE CODE TESTS RESULT OUT OF REFERENCE UNITS RANGE LAB L300.4150 11.7-14.9 SECONDS High PROTIME 43.1 LAB L300.4200 High alert INR 4.5 Result Comment: CRITICAL VALUE VERIFIED. CALLED TO ALYSON FRANCISCO 07/24/17 0800 Reji Cast RESULTS READ BACK BY SAME. Performed By: #### L300.3900 #### [facility] [address] [place], [address] BEDSIDE GLUCOSE Collected: 07/23/2017 Status: F Source: [place] 9:34 PM [facility] REPOSITORY TYPE CODE TESTS RESULT OUT OF REFERENCE UNITS RANGE LAB L501.080 70-110 mg/dL High BEDSIDE GLU 272 Result Comment: MANAGEMENT OF PATIENT CARE PER NURSING PROTOCOL Performed By: #### L501.080 #### [facility] Point of Care [address] [place] [address] BEDSIDE GLUCOSE Collected: 07/23/2017 Status: F Source: [place] 4:06 PM [facility] REPOSITORY TYPE CODE TESTS RESULT OUT OF REFERENCE UNITS RANGE LAB L501.080 70-110 mg/dL High BEDSIDE GLU 200 Result Comment: MANAGEMENT OF PATIENT CARE PER NURSING PROTOCOL Performed By: #### L501.080 #### [facility] Point of Care [address] [place] [address] BEDSIDE GLUCOSE Collected: 07/23/2017 Status: F Source: [place] 11:21 AM [facility] REPOSITORY TYPE CODE TESTS RESULT OUT OF REFERENCE UNITS RANGE LAB L501.080 70-110 mg/dL High BEDSIDE GLU 191 Result Comment: MANAGEMENT OF PATIENT CARE PER NURSING PROTOCOL Performed By: #### L501.080 #### [facility] Point of Care [address] [place] [address] BEDSIDE GLUCOSE Collected: 07/23/2017 Status: F Source: [place] 7:20 AM [facility] REPOSITORY TYPE CODE TESTS RESULT OUT OF RANGE REFERENCE UNITS LAB L501.080 70-110 mg/dL Normal BEDSIDE GLU 92 Result Comment: MANAGEMENT OF PATIENT CARE PER NURSING PROTOCOL Performed By: #### L501.080 #### [facility] Point of Care [address] [place] [address] BEDSIDE GLUCOSE Collected: 07/22/2017 Status: F Source: [place] 10:02 PM [facility] REPOSITORY TYPE CODE TESTS RESULT OUT OF REFERENCE UNITS RANGE LAB L501.080 70-110 mg/dL High BEDSIDE GLU 138 Result Comment: MANAGEMENT OF PATIENT CARE PER NURSING PROTOCOL Performed By: #### L501.080 #### [facility] Point of Care [address] [place] [address] BEDSIDE GLUCOSE Collected: 07/22/2017 Status: F Source: [place] 3:57 PM [facility] REPOSITORY TYPE CODE TESTS RESULT OUT OF REFERENCE UNITS RANGE LAB L501.080 70-110 mg/dL High BEDSIDE GLU 218 Result Comment: MANAGEMENT OF PATIENT CARE PER NURSING PROTOCOL Performed By: #### L501.080 #### [facility] Point of Care [address] [place] [address] BEDSIDE GLUCOSE Collected: 07/22/2017 Status: F Source: [place] 11:01 AM [facility] REPOSITORY TYPE CODE TESTS RESULT OUT OF REFERENCE UNITS RANGE LAB L501.080 70-110 mg/dL High BEDSIDE GLU 240 Result Comment: MANAGEMENT OF PATIENT CARE PER NURSING PROTOCOL Performed By: #### L501.080 #### [facility] Point of Care [address] [place] [address] BEDSIDE GLUCOSE Collected: 07/22/2017 Status: F Source: [place] 6:58 AM [facility] REPOSITORY TYPE CODE TESTS RESULT OUT OF REFERENCE UNITS RANGE LAB L501.080 70-110 mg/dL High BEDSIDE GLU 119 Result Comment: MANAGEMENT OF PATIENT CARE PER NURSING PROTOCOL Performed By: #### L501.080 #### [facility] Point of Care [address] [place] [address] CBC W/DIFF, AUTOMATED Collected: 07/22/2017 Status: F Source: [place] 6:35 AM [facility] REPOSITORY TYPE CODE TESTS RESULT OUT OF [...] M.D. 07/25/17 Performed By: #### L100.0100 #### [facility] [address] [place], [address] BASIC METABOLIC Collected: 07/22/2017 Status: F Source: [place] PROFILE ([facility] 6:35 AM [facility] RE[facility] TYPE CODE [...] GAP 8 Performed By: #### L500.2500 #### [facility] [address] [facility] 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 It may contain incorrect words, [...] problems, contact your Primary Care Provider. Call [facility] ([phone]) or report to the closest Emergency Room. Call 911 if necessary. 07/21/17 2876 <Electronically signed by Leticia Parker DO> Date Leticia Ungharmony DO Cosigner Signature (If Indicated): Date CC: Williams Parekh MD BASIC METABOLIC Collected: 07/21/2017 Status: F Source: [place] PROFILE (BMP) 10:38 PM [facility] REPOSITORY TYPE CODE TESTS RESULT OUT OF [...] GAP 6 Performed By: #### L500.2500 #### [facility] [address] [place], [address] CBC W/DIFF, AUTOMATED Collected: 07/21/2017 Status: C Source: [place] 10:38 PM [facility] REPOSITORY TYPE CODE TESTS RESULT OUT OF [...] as: August Performed By: #### L100.0100 #### [facility] [address] [place], [address] PROTHROMBIN TIME W/INR Collected: 07/21/2017 Status: F Source: [place] 10:38 PM [facility] REPOSITORY TYPE CODE TESTS RESULT OUT OF RANGE REFERENCE UNITS LAB L300.4150 11.7-14.9 SECONDS High PROTIME 30.6 LAB L300.4200 Normal INR 2.9 Performed By: #### L300.3900 #### [facility] [address] [place], [address] PROTHROMBIN TIME W/INR Collected: 2017 Status: F Source: NAM 9:42 AM [facility] REPOSITORY TYPE CODE TESTS RESULT OUT OF RANGE REFERENCE UNITS LAB L300.4150 11.7-14.9 SECONDS High PROTIME 29.2 LAB L300.4200 Normal INR 2.7 Performed By: #### L300.3900 #### [facility] [address] [place], [address] ECHO, COMPLETE W/ Observed: 07/10/2017 Status: F Source: NAM CONTRAST 4:22 PM [facility] REPOSITORY [facility] Cardiovascular Services [address] [place] [address] Echo Complete W/ Contrast 07/10/17 1318 MR#: [id number] Acct: [id number] Name: ELIZABETH HO Bright Rep #: [id number] : 1950 66 From: Saji Hernandez MD Attending Dr: Anibal Jenkins NP Status: REG CLI Ordering Dr: Anibal Jenkins LAUNDRY BAG PUNCH OPERATOR-C Date: 07/10/17 Location: [facility] Sex: F [...] Date Dictated: 07/10/17 1318 Date Transcribed: 07/10/171620 Architectural Draftsman: Signed PROTHROMBIN TIME W/INR Collected: 06/26/2017 Status: F Source: NAM 1:21 PM [facility] REPOSITORY TYPE CODE TESTS RESULT OUT OF RANGE REFERENCE UNITS LAB L300.4150 11.7-14.9 SECONDS High PROTIME 30.1 LAB L300.4200 Normal INR 2.9 Performed By: #### L300.3900 #### [facility] [address] [place], [address] CARDIOLOGY VISIT Observed: 06/22/2017 Status: F Source: NAM REPORT 7:09 AM [facility] REPOSITORY [facility] [address] [place] [address] OFFICE VISIT Date of Service: 06/21/17 MR#: [id number] Acct: [id number] Name: ELIZABETH HO Rep #: [id number] : 1950 Provider: LEXI Jenkins Age/Sex: 66/F [place] [facility]: Signed HPI HPI Details: ELIZABETH HO, [...] diabetes, chronic renal insufficiency. 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 We will wait for the results of echocardiogram for further recommendation. The results can also be faxed to appropriate office once needed. Orders Orders: 4. Essential hypertension I10 NORMA Sotelo Patient's blood pressure is well-controlled today in the office. We will continue to monitor this. We will not make any medication regimen changes. 5. Nonischemic cardiomyopathy I42.8 NROMA Sotelo Heart catheterization from February 2014 showed [...] 06/21/2017 Status: F Source: NAM 2:31 PM [facility]ITAL REPOSITORY [facility] Cardiovascular Services [address] [place] [address] 12 Lead EKG 06/20/172118 MR#: [id number] Acct: [id number] Name: ELIZABETH HO R Rep #: [id number] : 1950 66 From: Saji Hernandez MD [...] ECG Confirmed by SAJI HERNANDEZ MD ([id number]), purchasing expeditor CAT CONKLIN ([id number]) on 06/21/2017 2:30:43 PM Referred By: Michael See Confirmed By:SAJI HERNANDEZ MD 06/21/17 1430 Date Saji Hernandez MD CC: Williams Parekh MD; Brian Frey MD Signed EMERGENCY DEPARTMENT Observed: 06/21/2017 Status: F Source: NAM SUMMARY 12:10 AM [facility] REPOSITORY [facility] Medical Records Department [address] [place] [address] Emergency Department Summary 06/20/172253 MR#: [id number] Acct: [id number] Name: HOELIZABETH R Rep #: [id number] : 1950 66 From: Brian Frey MD [...] time her QTC was 530 and her KS was 204. CBC is marked for an [...] 2. Anxiety. This note was generated with Purpleation software. It may contain incorrect words, spelling, [...] your Primary Care Provider. Call [facility] ([phone]) or report to the closest Emergency Room. Call 911 if necessary. 06/21/17 0010 <Electronically signed by Brian Frey MD> Date Brian Frey MD Cosigner Signature (If Indicated): Date CC: Williams Parekh MD URINALYSIS, COMPLETE Collected: 06/20/2017 Status: F Source: NAM 10:05 PM [facility] REPOSITORY Order Comment: How was Urine Obtained? SHADER AND TONER TO SPECIFY TYPE CODE TESTS RESULT OUT [...] 0-5 SEEN Performed By: #### L400.0001 #### [facility] [address] [place], [address] CBC W/DIFF, AUTOMATED Collected: 06/20/2017 Status: C Source: [place] 9:35 PM [facility] REPOSITORY TYPE CODE TESTS RESULT OUT OF [...] as: August Performed By: #### L100.0100 #### [facility] [address] [place], [place], [address] BASIC METABOLIC Collected: 06/20/2017 Status: F Source: [place] PROFILE (BMP) 9:35 PM [facility] REPOSITORY Order Comment: 'TROP' Serial specimen #1, [...] 4 Performed By: #### L500.2500, L501.4010 #### [facility] [address] [place], [address] TROPONIN-I Collected: 06/20/2017 Status: F Source: [place] 9:35 PM [facility] REPOSITORY Order Comment: 'TROP' Serial specimen #1, #2, #3, or #4: 1 TYPE CODE TESTS RESULT OUT OF RANGE REFERENCE UNITS LAB L501.4010 <0.06 ng/mL Normal < 0.02 TROPONIN-I Result Comment: TROPONIN-I EXPECTED VALUES <0.05 NEGATIVE 0.06 - 0.59 AT RISK OF ME > OR = 0.60 SUGGEST ME Performed By: #### L500.2500, L501.4010 #### [facility] [address] [facility] [place], [address] PROTHROMBIN TIME W/INR Collected: 06/19/2017 Status: F Source: [place] 8:51 AM [facility] REPOSITORY TYPE CODE TESTS RESULT OUT OF REFERENCE UNITS RANGE LAB L300.4150 11.7-14.9 SECONDS High PROTIME 37.6 LAB L300.4200 High alert INR 4.0 Result Comment: CRITICAL VALUE VERIFIED. CALLED TO ZACH FRANCISCO 06/19/17 0949 Reji Taylor. RESULTS READ BACK BY SAME. Performed By: #### L300.3900 #### [facility] [address] [place], [address] PROTHROMBIN TIME W/INR Collected: 06/12/2017 Status: F Source: [place] 12:07 PM [facility] REPOSITORY TYPE CODE TESTS RESULT OUT OF REFERENCE UNITS RANGE LAB L300.4150 11.7-14.9 SECONDS High PROTIME 36.7 LAB L300.4200 High alert INR 3.9 Result Comment: CRITICAL VALUE VERIFIED. CALLED TO MAGGY AT [facility] 06/12/17 1340 Cyndie Lanier. RESULTS READ BACK BY SAME . Performed By: #### L300.3900 #### [facility] [address] [place], [address] PROTHROMBIN TIME W/INR Collected: 05/29/2017 Status: F Source: NAM 1:25 PM [facility] REPOSITORY TYPE CODE TESTS RESULT OUT OF RANGE REFERENCE UNITS LAB L300.4150 11.7-14.9 SECONDS High PROTIME 26.9 LAB L300.4200 Normal INR 2.6 Performed By: #### L300.3900 #### [facility] [address] [place], [address] PROTHROMBIN TIME W/INR Collected: 05/24/2017 Status: F Source: [place] 12:52 PM [facility] REPOSITORY Order Comment: CRITICAL VALUE VERIFIED. CALLED TO NOEMI 05/24/17 1320 Rayne Nicole. RESULTS READ BACK BY ALIA . TYPE CODE TESTS RESULT OUT OF REFERENCE UNITS RANGE LAB L300.4150 11.7-14.9 SECONDS High PROTIME 34.9 LAB L300.4200 High alert INR 3.7 Performed By: #### L300.3900 #### [facility] [address] [place], [address] PROTHROMBIN TIME W/INR Collected: 04/25/2017 Status: F Source: NAM 12:46 PM [facility] REPOSITORY TYPE CODE TESTS RESULT OUT OF RANGE REFERENCE UNITS LAB L300.4150 11.7-14.9 SECONDS High PROTIME 25.5 LAB L300.4200 Normal INR 2.4 Performed By: #### L300.3900 #### [facility] [address] [place], [address] BASIC METABOLIC Collected: 04/25/2017 Status: F Source: NAM PROFILE (BMP) 12:44 PM [facility] REPOSITORY TYPE CODE TESTS RESULT OUT OF [...] GAP 7 Performed By: #### L500.2500 #### [facility] [address] [place], [address] OFFICE VISIT REPORT Observed: 04/12/2017 Status: F Source: [place] 10:41 AM [facility] REPOSITORY [facility] [address] [place] [address] OFFICE VISIT Date of Service: 04/11/17 MR#: [id number] Acct: [id number] Patient: ELIZABETH HO Rep #: [id number] : 1950 Provider: Lela Bullock Age/Sex: 66/F [place] [facility] Status: Signed Device Device Date Interviewed: 04/11/17 Follow-up Location: in office Interview Reason: routine follow up Upkeep Mechanic: Uni-Pixel Name: Angeliquen IS-1/DF-1-DR Model: E143 Serial #: [id number] Implant Date: 08/14/14 Year(s): 2 Implant Physician: [...] Yes Incision well healed Leads Lead #1 Upkeep Mechanic Lead 1: Guidant Model Lead 1: 1688T Serial# Lead 1: [id number] Date Implanted Lead 1: 06/25/07 Position Lead 1: RA Lead #2 Upkeep Mechanic Lead 2: Medtronic Model Lead 2: 5076 Serial# Lead 2: [id number] Date Implanted Lead 2: 06/25/07 Position Lead 2: RV Additional Details: RV pace/sense lead Lead #3 Upkeep Mechanic Lead 3: Guidant Model Lead 3: 0184 Serial# Lead 3: [id number] Date Implanted Lead 3: 07/21/07 Position Lead [...] Presenting rhythm shows NSR @ 62 bpm. FIELD SERVICES DIRECTOR=<1%. Battery longevity approx 10 yrs. Lead impedances, [...] TIME W/INR Collected: 04/11/2017 Status: F Source: [place] 3:44 PM [facility] REPOSITORY Order Comment: Comments: Standing Order Comments: Standing Order TYPE CODE TESTS RESULT OUT OF RANGE REFERENCE UNITS LAB L300.4150 11.7-14.9 SECONDS High PROTIME 31.3 LAB L300.4200 Normal INR 3.2 Performed By: #### L300.3900 #### [facility] [address] [place], [address] ALLERGIES ALLERGIES DATE TYPE / NAME / CODE REACTION SEVERITY SOURCE CODE 11/20/2017 Drug amoxicillin Rash Unknown [facility] Allergy/41 trihydrate/Q65625 On License Of [facility] 2757387(SN 2707(RXNORM) [facility]) Repository 11/20/2017 Drug potassium Rash Unknown [facility] Allergy/41 clavulanate/F0000 On License Of [facility] 8829392(SN 50950(RXNORM) [facility]) Repository 11/20/2017 Drug Sulfa Hives Unknown Nam Allergy/41 (Sulfonamide On License Of [facility] 7955915(SN Antibiotics)/F001 [facility]) 345658(RXNORM) Repository 11/20/2017 Drug vancomycin/C34677 Other Unknown Nam Allergy/41 4866(RXNORM) On License Of [facility] 6720335( Hospital OMED CT) Repository 08/26/2013 DRUG VANCOMYCIN ANAPHYLAXIS [facility] INGREDI/41 [facility] [place] 5106162(SN Repository OMED CT) 2013 DRUG/47364 AMOXICILLIN-POT RASH [facility] 1003(SNOME CLAVULANATE [facility] [place] D [facility]) Repository 01/10/2005 Drug SULFA HIVES [facility] Class/4195 (SULFONAMIDE [place] [address](SNOM ANTIBIOTICS) Repository ED CT) ENCOUNTERS ENCOUNTERS ADMIT/DISCHARGE ACCOUNT ADMITTING ENCOUNTER LOCATION SOURCE NUMBER CLASS 04/02/2018 [id number] Ambulatory BMSBuilding:B [place] Hospital Repository 03/27/2018 [id number] Ambulatory [facility] Hospital ing:OLS.AVED Repository 03/24/2018 [id number] Ambulatory [facility] Hospital ing:OLS.AVED Repository 03/23/2018/03/23/20 [id number] Emergency [address] Hospital ing:ED Repository 03/22/2018 [id number] Ambulatory [facility] Hospital ing:OLS.AVED Repository 03/20/2018 [id number] Ambulatory [facility] Hospital ing:OLS.AVED Repository 03/19/2018 [id number] Ambulatory [facility] Hospital ing:OLS.AVED Repository 03/16/2018 [id number] Ambulatory [facility] Hospital ing:OLS.AVED Repository 03/14/2018 [id number] Ambulatory [facility] Hospital ing:OLS.AVED Repository 03/12/2018 [id number] Ambulatory [facility] Hospital[facility] Hospital ing:OLS.AVED Repository 03/06/2018 [id number] Ambulatory [facility] Hospital ing:OLS.AVED Repository 03/02/2018 [id number] Ambulatory [facility] Hospital ing:OLS.AVEC Repository 02/28/2018 [id number] Ambulatory [facility] Hospital ing:OLS.AVED Repository 02/21/2018 [id number] Ambulatory [facility] Hospital ing:OLS.AVED Repository 02/20/2018 [id number] Ambulatory [facility] Hospital ing:OLS.AVED Repository 02/14/2018 [id number] Ambulatory [facility] Hospital ing:OLS.AVED Repository 02/09/2018 [id number] Ambulatory [facility] Hospital ing:OLS.AVED Repository 02/08/2018 [id number] Ambulatory [facility] Hospital ing:OLS.AVED Repository 02/07/2018 [id number] Ambulatory [facility] Hospital ing:OLS.AVED Repository 01/31/2018 [id number] Ambulatory [facility] Hospital ing:OLS.AVED Repository 01/23/2018 [id number] Ambulatory [facility] Hospital ing:OLS.AVED Repository 01/19/2018 [id number] Ambulatory [facility] Hospital ing:OLS.AVED Repository 01/17/2018 [id number] Ambulatory [facility] Hospital ing:OLS.AVED Repository 01/15/2018 [id number] Ambulatory [facility] Hospital ing:OLS.AVED Repository 01/10/2018 [id number] Ambulatory [facility] Hospital ing:OLS.AVED Repository 01/08/2018 [id number] Ambulatory [facility] Hospital ing:OLS.AVED Repository 01/04/2018 [id number] Ambulatory [facility] Hospital ing:OLS.AVED Repository 01/02/2018 [id number] Ambulatory [facility] Hospital ing:LAB Repository 01/01/2018 [id number] Loren Mendez Ambulatory BMSBuilding:B Nam [facility] Hospital Repository 01/01/2018/01/04/20 [id number] Loren Mendez Ambulatory Nam [address] HospitalBuild Hospital ing:WC0Dofb: Repository GV581Unu: 1 01/01/2018 [id number] Loren Mendez Ambulatory BMSBuilding:B [place].[facility] Repository 01/01/2018 [id number] White, Loren Ambulatory BMSBuilding:B Nam MS.[facility] Repository 12/29/2017/01/02/20 [id number] Ambulatory [address] Repository 12/28/2017/12/29/19 [id number] Emergency [address] Hospital ing:ED Repository 12/26/2017/12/27/19 [id number] Ambulatory BMSBuilding:B [place] 18 [facility] Repository 12/22/2017/12/23/19 [id number] Ambulatory [address] Hospital ing:LAB Repository 11/20/2017/11/21/19 [id number] Ambulatory BMSBuilding:B [place] 18 MS.[facility] Repository 11/20/2017/11/21/19 [id number] Ambulatory [address] Hospital ing:LAB Repository 11/14/2017/11/15/19 [id number] Emergency [address] Hospital ing:ED Repository 10/16/2017/10/17/19 [id number] Ambulatory BMSBuilding:B Nam 18 MS.[facility] Repository 10/16/2017/10/17/19 [id number] Ambulatory [address] Hospital ing:LAB Repository 10/11/2017 [id number] Ambulatory BMSBuilding:B Nam MS.[facility] Repository 10/11/2017/10/12/19 [id number] Ambulatory BMSBuilding:B Nam 18 MS.[facility] Repository 10/03/2017 [id number] Ambulatory [facility] Repository 10/03/2017/10/05/19 [id number] Ambulatory [address] Repository 10/03/2017 [id number] Ambulatory [facility] Hospital ing:LAB.FUTUR Repository E 09/25/2017/09/26/19 [id number] Ambulatory BMSBuilding:B [place] 18 MS.[facility] Repository 09/21/2017/09/23/19 [id number] Ambulatory [address] Repository 09/17/2017/09/21/19 [id number] White, [facility] ing:PCURoom: Repository PWW594Fce: 1 09/17/2017 [id number] White, Loren Ambulatory BMSBuilding:B Nam [facility] Repository 09/17/2017 [id number] White, Loren Ambulatory BMSBuilding:B [place] [facility] Repository 09/17/2017 [id number] White, Loren Ambulatory BMSBuilding:B Nam MS.[facility] Repository 09/17/2017 [id number] White, Ambulatory BMSBuilding:B [place].[facility] Repository 09/17/2017 [id number] White, Loren Ambulatory BMSBuilding:B [place] [facility] Repository 09/17/2017 [id number] White, Ambulatory BMSBuilding:B Nam MS.[facility] Repository 09/17/2017 [id number] White, Ambulatory BMSBuilding:B Nam MS.[facility] Repository 09/17/2017 [id number] White, Ambulatory BMSBuilding:B Nam MS.CF.[facility] Repository 09/11/2017/09/12/19 [id number] Ambulatory [address] ing:LAB Repository 09/07/2017 [id number] Ambulatory [facility] Repository 09/07/2017/09/08/19 [id number] Ambulatory [address] Repository 08/21/2017/09/05/19 [id number] Ambulatory [address] Repository 08/21/2017/08/22/19 [id number] Ambulatory [address] ing:LAB Repository 08/17/2017 [id number] Ambulatory [facility] Repository 08/01/2017/08/02/19 [id number] Ambulatory [address] Repository 07/22/2017/07/26/19 [id number] Piter Laureano Inpatient [place] [address] Encounter [facility] ing:LR0Izzn: Repository EG697Eul: 1 07/22/2017 [id number] Piter Laureano Ambulatory BMSBuilding:Karly [place] MS.[facility] Repository 07/22/2017 [id number] Piter Laureano Ambulatory BMSBuilding:Karly [address] MS.[facility] Repository 07/22/2017 [id number] Piter Laureano Ambulatory BMSBuilding:Karly [address] MS.[facility] Repository 07/22/2017 [id number] Piter Laureano Ambulatory BMSBuilding:Karly [address] MS.[facility] Repository 07/22/2017/07/26/19 [id number] Ambulatory BMSBuilding:Karly [address] 18 MS.[facility] Repository 07/17/2017/07/18/19 [id number] Ambulatory [address] Hospital ing:LAB Repository 07/13/2017 [id number] Ambulatory BMSBuilding:Karly Browning MS.[facility] Repository 07/10/2017 [id number] Ambulatory [facility] Hospital ing:[facility] Repository 07/10/2017 [id number] Ambulatory BMSBuilding:W Nam [facility] Repository 07/03/2017/07/04/19 [id number] Ambulatory BMSBuilding:B Nam 18 MS.[facility] Repository 06/21/2017/06/21/19 [id number] Ambulatory BMSBuilding:B Nam 18 MS.[facility] Repository 06/21/2017 [id number] Ambulatory BMSBuilding:Karly Browning MS.[facility] Repository 06/20/2017/06/20/19 [id number] Emergency [address] Hospital ing:ED Repository 05/24/2017/05/24/19 [id number] Ambulatory [address] Hospital ing:LAB Repository 04/11/2017/04/23/20 [id number] Ambulatory [address] Hospital ing:LAB Repository 04/11/2017/04/11/20 [id number] Ambulatory BMSBuilding:B Nam 17 MS.[facility] Repository PAYERS PAYERS ENCOUNTER GUARANTOR PAYER SUBSCRIBER SOURCE 04/02/2018 ELIZABETH R Primary ELIZABETH R Nam [id number] Insurance:AETSHERYL WETZELB[facility]: [id number] [facility] [address]Krh: [id number] Repository Date:0119-09-82[address]I [address] () [id number] [place] [phone]: 04/02/2018 Secondary NOT GIVENUNK Nam Insurance:SELF PAY [facility] Number: Effective Repository Date:2018-01-10 03/27/2018 ELIZABETH R Primary ELIZABETH R Nam [id number] E. Insurance:AETSHERYL WETZELB: [facility] Number: [id number] Area Medical Center [id number] Repository [address] OF Date:4911-69-52AY [facility] [id number] [place] [address]Eks: [phone]: [phone] () 03/27/2018 Secondary NOT GIVENUNK [place] Insurance:SELF PAY [facility] Number: Effective Repository Date:2018-03-27 03/24/2018 ELIZABETH R Primary NOT GIVENUNK [place] [id number] E. Insurance:[facility]LF [facility] Effective Repository [address] OF Date:2018-03-24 [facility] [place] [address]Wss: () 03/23/2018 ELIZABETH R Primary ELIZABETH R Nam [id number] E. Insurance:AETNA DAMARIB: [facility] Number: [id number] Area Medical Center [id number] Repository [address] OF Date:5802-91-40TD [facility]ITAL[facility] [id number] [place] [address]Iyg: [phone]: [phone] (HP) 03/23/2018 Secondary NOT GIVENUNK Nam Insurance:SELF PAY [facility] Number: Effective Repository Date:2018-03-23 03/22/2018 ELIZABETH R Primary ELIZABETH R Nam [id number] E. Insurance:AETSHERYL DAMARIB: [facility] Number: [id number] Area Medical Center [id number] Repository [address] OF Date:5906-79-59JP [facility] [id number] [place] [address]Mdk: [phone]: [phone] (HP) 03/22/2018 Secondary NOT GIVENUNK [place] Insurance:SELF PAY [facility] Number: Effective Repository Date:2018-03-22 03/20/2018 ELIZABETH R Primary NOT GIVENUNK Nam [id number] E. Insurance:SELF PAY [facility] Number: Effective Repository [address] OF Date:2018-03-20 [place], [place] [address]Zcq: (HP) 03/19/2018 ELIZABTEH R Primary NOT GIVENUNK Nam [id number] E. Insurance:SELF PAY [facility] Number: Effective Repository [address] OF Date:2018-03-19 [facility]ALTH[facility] [place], [place] [address]Mmv: (HP) 03/16/2018 ELIZABETH R Primary ELIZABETH R [place] [id number] E. Insurance:AETSHERYL WETZELB: [facility] Number: [id number] Area Medical Center [id number] Repository [address] OF Date:6271-87-77UJ [facility] [id number] [place] [address]Efk: [phone]: [phone] (HP) 03/16/2018 Secondary NOT GIVENUNK Nam Insurance:SELF PAY [facility] Number: Effective Repository Date:2018-03-16 03/14/2018 ELIZABETH R Primary ELIZABETH R [place] [id number] E. Insurance:AETNA PAPADOB: [facility] Number: [id number] Brook University HospitalT9BREffective Repository [address] OF Date:6716-72-33DO [facility] AND[facility] [id number] [place] [address]Idx: [phone]: [phone] (HP) 03/14/2018 Secondary NOT GIVENUNK Nam Insurance:SELF PAY [facility] Number: Effective Repository Date:2018-03-14 03/12/2018 ELIZABETH R Primary ELIZABETH R Nam [id number] E. Insurance:AETNA DAMARIB: [facility] Number: [id number] Brook University HospitalT9BREffective Repository [address] OF Date:8791-97-15PS [facility] [id number] [place] [address]Bai: [phone]: [phone] (HP) 03/12/2018 Secondary NOT GIVENUNK [place] Insurance:SELF PAY [facility] Number: Effective Repository Date:2018-03-12 03/06/2018 ELIZABETH R Primary ELIZABETH R [place] [id number] E. Insurance:AETNA DAMARIB: [facility] [facility] Number: [id number] Brook University HospitalT9BREffective Repository AVENUE OF Date:3481-04-74YE [facility] LEELEEHENRY FORD HOSPITALJEROMEARIZONA [facility] [address] [place] [address] 71683Vmo: 05[address]IN: [phone] (HP) 03/06/2018 Secondary NOT GIVENUNK Gibson Insurance:SELF PAY [facility] Number: Effective Repository Date:2018-03-06 03/02/2018 ELIZABETH R Primary ELIZABETH R Gibson [id number] E. Insurance:AETNA DAMARIB: [facility] Number: [id number] Brook University HospitalT9BREffective Repository AVENUE OF Date:7746-62-87EC [facility] [address] [place] [address] [place] [address]Cyw: [address]HB: [phone] (HP) 03/02/2018 Secondary NOT GIVENUNK Nam Insurance:SELF PAY [facility] Number: Effective Repository Date:2018-03-02 02/28/2018 ELIZABETH R Primary ELIZABETH R Gibson [id number] E. Insurance:AETNA PAPADOB: [facility] Number: [id number] Brook University HospitalT9BREffective Repository AVENUE OF Date:8175-64-09FS [facility] [address] [place] [address] [place] [address]Oql: [address]ZE: [phone] (HP) 02/28/2018 Secondary NOT GIVENUNK Gibson Insurance:SELF PAY [facility] Number: Effective Repository Date:2018-02-28 02/21/2018 ELIZABETH R Primary ELIZABETH R Gibson [id number] E. Insurance:AETNA PAAPDOB: [facility] Number: [id number] Brook University HospitalT9BREffective Repository AVENUE OF Date:8214-40-54ZK [address] [place] [address]Fnd: [address]QK: [phone] () 02/21/2018 Secondary NOT GIVENUNK Nam Insurance:SELF PAY [facility] Number: Effective Repository Date:2018-02-21 02/20/2018 ELIZABETH R Primary ELIZABETH R Nam [id number] E. Insurance:AETNA PAPADOB: [facility] Number: [id number] Brook University HospitalT9BREffective Repository AVENUE OF Date:4393-95-36VM [address] [place] [address]Flh: [address]QT: [phone] (HP) 02/20/2018 Secondary NOT GIVENUNK Gibson Insurance:SELF PAY [facility] Number: Effective Repository Date:2018-02-20 02/14/2018 ELIZABETH R Primary ELIZABETH Browning [id number] E. Insurance:AETSHERYL HODOB: [facility] Number: [id number] Area Medical Center [id number] Repository AVEN[address] OF Date:8204-01-55WF [facility] LEELEEHEN[facility] FORD HOSPITALJEROMEARIZONA [facility] [address] [place] [address] 54567Vxt: [phone]: [phone] () 02/14/2018 Secondary NOT GIVENUNK Nam Insurance:SELF PAY [facility] Number: Effective Repository Date:2018-02-14 02/09/2018 ELIZABETH R Primary ELIZABETH R Gibson [id number] E. Insurance:AETNA PAPADOB: [facility] Number: [id number] Brook University HospitalT9BREffective Repository AVENUE OF Date:1114-52-56XR [facility] LEELEEHENRY FORD HOSPITALJEROMEARIZONA [facility] 7[address] [place] [address] 24[address]Aic: [address]OE: [phone] () 02/09/2018 Secondary NOT GIVENUNK Nam Insurance:SELF PAY [facility] Number: Effective Repository Date:2018-02-09 02/08/2018 ELIZABETH R Primary ELIZABETH R Nam [id number] E. Insurance:AETNA PAPADOB: [facility] Number: [id number] General HospitalBPT9BREffective Repository AVENUE OF Date:4268-76-47RK [facility] LEELEEHENRY FORD HOSPITALJEROMEARIZONA [facility] [address] [place] [address] 894[address]Bwm: [address]XO: [phone] () 02/08/2018 Secondary NOT GIVENUNK Nam Insurance:SELF PAY [facility] Number: Effective Repository Date:2018-02-08 02/07/2018 ELIZABETH R Primary ELIZABETH R Gibson [id number] E. Insurance:AETNA PAPADOB: [facility] Number: [id number] Brook University HospitalT9BREffective Repository AVENUE OF Date:4758-75-72UJ [facility] [address] [place] [address] 07[address]Kzx: [address]PA: [phone] (HP) 02/07/2018 Secondary NOT GIVENUNK Gibson Insurance:SELF PAY [facility] Number: Effective Repository Date:2018-02-07 01/31/2018 LEIZABETH R Primary ELIZABETH R Nam [id number] E. Insurance:AETNA PAPADOB: [facility] Number: [id number] Brook University HospitalT9BREffective Repository AVENUE OF Date:4628-61-90SQ [facility] [address] [place] [address] 065[address]Phx: [address]GH: [phone] (HP) 01/31/2018 Secondary NOT GIVENUNK Gibson Insurance:SELF PAY [facility] Number: Effective Repository Date:2018-01-31 01/23/2018 ELIZABETH R Primary ELIZABETH R Gibson [id number] E. Insurance:AETNA PAPADOB: [facility] Number: [id number] Brook University HospitalT9BREffective Repository AVENUE OF Date:6787-93-60HW [facility] 10[address] [place] [address] 40124Nvw: [address]RC: [phone] (HP) 01/23/2018 Secondary NOT GIVENUNK Nam Insurance:SELF PAY [facility] Number: Effective Repository Date:2018-01-23 01/19/2018 ELIZABETH R Primary ELIZABETH R Gibson [id number] E. Insurance:AETNA PAPADOB: [facility] Number: [id number] Brook University HospitalT9BREffective Repository AVENUE OF Date:0967-99-44ZB [facility] [address] [place] [address] 00737Wkv: [phone]: [phone] () 01/19/2018 Secondary NOT GIVENUNK Gibson Insurance:SELF PAY [facility] Number: Effective Repository Date:2018-01-19 01/17/2018 ELIZABETH R Primary NOT GIVENUNK Nam [id number] FOREST Insurance:SELF PAY [facility] 24909Aca: Number: Effective Repository Date:2018-01-17 () 01/15/2018 ELIZABETH R Primary ELIZABETH R Nam [id number] E. Insurance:AETNA DAMARIB: [facility] Number: [id number] General HospitalBPT9BREffective Repository AVENUE OF Date:3899-19-23RE [facility] 56[address] [place] [address] 34567Yra: [address]ON: [phone] () 01/15/2018 Secondary NOT GIVENUNK Nam Insurance:SELF PAY [facility] Number: Effective Repository Date:2018-01-15 01/10/2018 ELIZABETH R Primary ELIZABETH R Nam [id number] E. Insurance:AETNA PAPADOB: [facility] Number: [id number] Brook University HospitalT9BREffective Repository AVENUE OF Date:3996-29-10HQ [facility] [address] [place] [address] 860[address]Rpr: [address]CZ: [phone] () 01/10/2018 Secondary NOT GIVENUNK Nam Insurance:SELF PAY [facility] Number: Effective Repository Date:2018-01-10 01/08/2018 ELIZABETH R Primary ELIZABETH R Gibson [id number] FOREST Insurance:AETNA PAPADOB: [facility] Number: [id number] Cancer Center 23125Vxr: [id number] Repository Date:6317-03-13VY BOX (HP) 569161JY [place], [place] [address]VS: 01/08/2018 Secondary NOT GIVENUNK Nam Insurance:SELF PAY [facility] Number: Effective Repository Date:2018-01-08 01/04/2018 ELIZABETH R Primary ELIZABETH R Nam [id number] FOREST Insurance:AETNA PAPADOB: Community Rubnia GUSTAFSONicdanii Number: [id number] Cancer Center 58426Fcf: [id number] Repository Date:0243-30-65BO BOX (HP) 384134ZC [place], [place] [address]GT: 01/04/2018 Secondary NOT GIVENUNK Gibson Insurance:SELF PAY On [facility] Number: Effective Repository Date:2018-01-04 01/02/2018 ELIZABETH R Primary ELIZABETH R Nam [id number] FOREST Insurance:AETNA PAPADOB: On License Of [facility] Cesar GUSTAFSON Number: [id number] Cancer Center 84295Cit: [id number] Repository Date:0503-88-37JC BOX (HP) 628314NR PASRoberto [place] [address]ZU: 01/02/2018 Secondary NOT GIVENUNK Gibson Insurance:SELF PAY [facility] Number: Effective Repository Date:2017-12-26 01/01/2018 ELIZABETH R Primary ELIZABETH R Gibson [id number] FOREST Insurance:AETNA DAMARIB: On License Of [facility] Cesar GUSTAFSON Number: [id number] Cancer Center 68381Ooe: [id number] Repository Date:3158-41-94PT BOX (HP) 545221ZY DIAZHAILEY Mejia [address]EX: 01/01/2018 Secondary NOT GIVENUNK Nam Insurance:SELF PAY On License [facility] Number: Effective Repository Date:2018-01-01 01/01/2018 ELIZABETH R Primary ELIZABETH R Gibson [id number] FOREST Insurance:AETNA PAPADOB: On License Of [facility] Cesar GUSTAFSON Number: [id number] Cancer Center 84557Moo: [id number] Repository Date:1184-99-55DF BOX () 207275[place], [place] [address]TQ: 01/01/2018 Secondary NOT GIVENUNK Gibson Insurance:SELF PAY On License [facility] Number: Effective Repository Date:2018-01-01 01/01/2018 ELIZABETH R Primary ELIZABETH R Nam [id number] FOREST Insurance:AETNA PAPADOB: [facility] HospitalRub[facility] SULLIVANdanii Number: [id number] Cancer Center [address]Ulh: [id number] Repository Date:6067-10-32SQ BOX () 657622[place], [place] [address]MW: 01/01/2018 Secondary NOT GIVENUNK Nam Insurance:SELF PAY On License [facility] Number: Effective Repository Date:2018-01-01 01/01/2018 ELIZABETH R Primary ELIZABETH R Nam [id number] FOREST Insurance:AETNA DAMARIB: [facility] HospitalRubina SULLIVANicdanii Number: [id number] Cancer Center 03778Xio: [id number] Repository Date:8156-76-27BV [address]OX () 572345[place], [place] [address]PJ: 01/01/2018 Secondary NOT GIVENUNK Gibson Insurance:SELF PAY On License [facility] Number: Effective Repository Date:2018-01-01 12/28/2017 ELIZABETH R Primary ELIZABETH R Gibson [id number] FOREST Insurance:AETNA PAPADOB: Cesar Stevenson Number: [id number] Cancer Center 03833Keg: [id number] Repository Date:0542-23-19JU BOX (HP) 117121UB [place] [address]ZH: 12/28/2017 Secondary NOT GIVENUNK Gibson Insurance:SELF PAY On License [facility] Number: Effective Repository Date:2017-12-28 12/26/2017 ELIZABETH R Primary ELIZABETH R Gibson [id number] FOREST Insurance:AETNA DAMARIB: C[facility] Stevenson Number: [id number] Cancer Center [address]Uyi: [id number] Repository Date:9371-06-47FM BOX (HP) 064444[place], [place] [address]TX: 12/26/2017 Secondary NOT GIVENUNK Gibson Insurance:SELF PAY [facility] Number: Effective Repository Date:2017-12-26 12/22/2017 ELIZABETH R Primary ELIZABETH R Gibson [id number] FOREST Insurance:AETNA DAMARIB: C[facility] Stevenson Number: [id number] Cancer Center 10506Szr: [id number] Repository Date:8734-67-85RG BOX () 798225[place], [place] [address]HN: 12/22/2017 Secondary NOT GIVENUNK Gibson Insurance:SELF PAY [facility] Number: Effective Repository Date:2017-11-23 11/20/2017 ELIZABETH R Primary ELIZABETH R Nam [id number] FOREST Insurance:AETNA DAMARIB: [facility] Stevenson Number: [id number] Cancer Center 97635Thf: [id number] Repository Date:9415-78-75RG BOX (HP) 787863[place], [place] [address]TL: 11/20/2017 Secondary NOT GIVENUNK Nam Insurance:SELF PAY On License [facility] Number: Effective Repository Date:2017-11-20 11/20/2017 ELIZABETH R Primary ELIZABETH R Gibson [id number] FOREST Insurance:AETNA PAPADOB: [facility] Rubina PERALTAdanii Number: [id number] Cancer Center 71408Mps: [id number] Repository Date:1524-56-31SJ BOX (HP) 963441CS [place] K[place] [address]ZO: 11/20/2017 Secondary NOT GIVENUNK Nam Insurance:SELF PAY On License [facility] Number: Effective Repository Date:2017-10-20 11/14/2017 ELIZABETH R Primary ELIZABETH R Gibson [id number] FOREST Insurance:AETNA [facility]APADOB: [facility] Number: [id number] [facility] 98270Tay: [id number] Repository Date:0662-84-70ZA BOX (HP) 532260DZ [place] KAP[place]AN [address]BC: 11/14/2017 Secondary NOT GIVENUNK Gibson Insurance:SELF PAY On License [facility] Number: Effective Repository Date:2017-11-14 10/16/2017 ELIZABETH R Primary ELIZABETH R Nam [id number] FOREST Insurance:AETNA PAPADOB: [facility] FABIAN [facility] Number: [id number] Cancer Center 23241Yri: [id number] Repository Date:4799-11-22QV BOX () 438048LH [place] K[place] [address]JR: 10/16/2017 Secondary NOT GIVENUNK Gibson Insurance:SELF PAY On License [facility] Number: Effective Repository Date:2017-10-16 10/16/2017 ELIZABETH R Primary ELIZABETH R Nam [id number] FOREST Insurance:AETNA PAPADOB: Community Rubina GUSTAFSONicdanii Number: [id number] Cancer Center 26210Byv: [id number] Repository Date:1313-37-30NQ BOX (HP) 303122MG DIAZHAILEY [address]SF: 10/16/2017 Secondary NOT GIVENUNK Nam Insurance:SELF PAY On License [facility] Number: Effective Repository Date:2017-09-21 10/11/2017 ELIZABETH R Primary ELIZABETH R Nam [id number] FOREST Insurance:AETSHERYL WETZELB: Rubina Stevensonicy Number: [id number] Cancer Center 44453Pqo: [id number] Repository Date:6570-08-22LN BOX (HP) 098971NPOP[place], [place] [address]RD: 10/11/2017 Secondary NOT GIVENUNK Nam Insurance:SELF PAY On License [facility] Number: Effective Repository Date:2017-10-11 10/11/2017 ELIZABETH R Primary ELIZABETH R Gibson [id number] FOREST Insurance:MARIATSHERYL WETZELB: Rubina Stevensonicdanii Number: [id number] Cancer Center 58296Skc: [id number] Repository Date:2745-36-55MS BOX (HP) 775610[place], [place] [address]NY: 10/11/2017 Secondary NOT GIVENUNK Nam Insurance:SELF PAY On License [facility] Number: Effective Repository Date:2017-10-11 10/03/2017 ELIZABETH R Primary ELIZABETH R Gibson [id number] FOREST Insurance:MARIATSHERYL WETZELB: Rubina Stevensonicdanii Number: [id number] Cancer Center 95888Gjj: [id number] Repository Date:1629-84-83VN BOX (HP) 029810QX [place] [address]US: 10/03/2017 Secondary NOT GIVENUNK Gibson Insurance:SELF PAY On License [facility] Number: Effective Repository Date:2017-10-03 09/25/2017 ELIZABETH R Primary ELIZABETH R Gibson [id number] FOREST Insurance:AETNA PAPADOB: [facility] HospitalJEROMEIn[facility] Number: [id number] Cancer Center 86456Snq: [id number] Repository Date:4748-86-56FC BOX (HP) 471286QGHAILEY GARCIA [address]ZJ: 09/25/2017 Secondary NOT GIVENUNK Gibson Insurance:SELF PAY On License [facility] Number: Effective Repository Date:2017-08-23 09/17/2017 ELIZABETH R Primary ELIZABETH R Gibson [id number] FOREST Insurance:AETNA PAPADOB: [facility] Number: [id number] Cancer Center 32531Mtc: [id number] Repository Date:8875-77-07ZE BOX (HP) 620232RX [place] [address]LP: 09/17/2017 Secondary NOT GIVENUNK Nam Insurance:SELF PAY [facility] Number: Effective Repository Date:2017-09-17 09/17/2017 ELIZABETH R Primary ELIZABETH R Nam [id number] FOREST Insurance:AETNA PAPADOB: [facility] GEORGIANAKarmanos Cancer Centeric Number: [id number] Cancer Center 24346Bhc: [id number] Repository Date:8845-29-22RP BOX (HP) 560169VIHAILEY GARCIA [address]IA: 09/17/2017 Secondary NOT GIVENUNK Gibson Insurance:SELF PAY On License [facility] Number: Effective Repository Date:2017-09-17 09/17/2017 ELIZABETH R Primary ELIZABETH R Nam [id number] FOREST Insurance:AETNA PAPADOB: Community Rubina GUSTAFSONicy Number: [id number] Cancer Center 24908Fll: [id number] Repository Date:0432-32-16PF BOX (HP) 855625ZY [place] [address]XO: 09/17/2017 Secondary NOT GIVENUNK Nam Insurance:SELF PAY On License [facility] Number: Effective Repository Date:2017-09-17 09/17/2017 ELIZABETH R Primary ELIZABETH R Nam [id number] FOREST Insurance:AETNA PAPADOB: On License Of [facility] Rubina GUSTAFSONicdanii Number: [id number] Cancer Center 43060Npu: [id number] Repository Date:2254-61-16FN BOX () 391154[place], [place] [address]NK: 09/17/2017 Secondary NOT GIVENUNK Nam Insurance:SELF PAY On License [facility] Number: Effective Repository Date:2017-09-17 09/17/2017 ELIZABETH R Primary ELIZABETH R Nam [id number] FOREST Insurance:AETNA PAPADOB: On License Of [facility] Rubina GUSTAFSONicdanii Number: [id number] Cancer Center 79680Lid: [id number] Repository Date:8570-20-16HH BOX (HP) 369665UIOP[place], [place] [address]SU: 09/17/2017 Secondary NOT GIVENUNK Gibson Insurance:SELF PAY On License [facility] Number: Effective Repository Date:2017-09-17 09/17/2017 ELIZABETH R Primary ELIZABETH R Gibson [id number] FOREST Insurance:AETNA PAPADOB: On License Of [facility] Rubina GUSTAFSONicy Number: [id number] Cancer Center 94781Uke: [id number] Repository Date:0367-10-47FE BOX (HP) 074341MWHAILEY GARCIA [address]EU: 09/17/2017 Secondary NOT GIVENUNK Gibson Insurance:SELF PAY Community [facility] Number: Effective Repository Date:2017-09-17 09/17/2017 ELIZABETH R Primary ELIZABETH R Nam [id number] FOREST Insurance:AETNA PAPADOB: [facility] HospitalJEROME, [facility]PITALPolicy Number: [id number] Cancer Center 32190Xbd: [id number] Repository Date:9835-80-85II BOX (HP) 023164MXHAILEY GARCIA [address]FX: 09/17/2017 Secondary NOT GIVENUNK Nam Insurance:SELF PAY On License Of [facility] Number: Effective Repository Date:2017-09-17 09/17/2017 ELIZABETH R Primary ELIZABETH R Nam [id number] FOREST Insurance:AETNA DUNNDOB: [facility] [place], [facility] HOSPITALPolicy Number: [id number] Cancer Center 71387Zzy: [id number] Repository Date:5177-22-54FQ BOX (HP) 205502JRHAILEY GARCIA [address]BV: 09/17/2017 Secondary NOT GIVENUNK Nam Insurance:SELF PAY On License Of [facility] Number: Effective Repository Date:2017-09-17 09/17/2017 ELIZABETH R Primary ELIZABETH R Gibson [id number] FOREST Insurance:AETNA PAPADOB: [facility] [place], [facility] HOSPITALPolicy Number: [id number] Cancer Center 63617Wrp: [id number] Repository Date:7401-45-77TZ BOX (HP) 413530WCHAILEY GARCIA [address]XS: 09/17/2017 Secondary NOT GIVENUNK Gibson Insurance:SELF PAY On License Of [facility] Number: Effective Repository Date:2017-09-17 09/11/2017 ELIZABETH R Primary ELIZABETH R Gibson [id number] FOREST Insurance:AETNA PAPADOB: Community NELSON GUSTAFSONPolicy Number: [id number] Cancer Center 58102Jhy: [id number] Repository Date:1448-82-74VK BOX () 008439[place], [place] [address]HS: 09/11/2017 Secondary NOT GIVENUNK Nam Insurance:SELF PAY On License [facility] Number: Effective Repository Date:2017-08-22 08/21/2017 ELIZABETH R Primary ELIZABETH Bright Nam [id number] FOREST Insurance:AETNA PAPADOB: On License Of [facility] NELSON GUSTAFSONPolicdanii Number: [id number] Cancer Center 07661Dce: [id number] Repository Date:3467-01-55YV BOX () 355589BXOP[place], [place] [address]BD: 08/21/2017 Secondary NOT GIVENUNK Nam Insurance:SELF PAY On License [facility] Number: Effective Repository Date:2017-07-24 07/22/2017 ELIZABETH R Primary ELIZABETH Novoa Gibson [id number] FOREST Insurance:AETNA PAPADOB: On License Of [facility] NELSON GUSTAFSONPolicdanii Number: [id number] Cancer Center 64689Yvy: [id number] Repository Date:3612-69-07WW BOX () 608082NK[place], [place] [address]ZP: 07/22/2017 Secondary NOT GIVENUNK Nam Insurance:SELF PAY On License Of [facility] Number: Effective Repository Date:2017-07-21 07/22/2017 ELIZABETH R Primary ELIZABETH Bright Gibson [id number] FOREST Insurance:AETNA PAPADOB: Community LINWOOD PERALTA, NELSONPolicy Number: [id number] Cancer Center 16834Usg: [id number] Repository Date:4939-87-35WP BOX (HP) 169148DA [place] [address]DB: 07/22/2017 Secondary NOT GIVENUNK Gibson Insurance:SELF PAY On License Of [facility] Number: Effective Repository Date:2017-07-22 07/22/2017 ELIZABETH R Primary ELIZABETH R Gibson [id number] FOREST Insurance:AETNA PAPADOB: [facility] Rubina PERALTAicy Number: [id number] Cancer Center 36084Gnu: [id number] Repository Date:3295-65-30VM BOX (HP) 333326KW [place] [address]XZ: 07/22/2017 Secondary NOT GIVENUNK Gibson Insurance:SELF PAY On License [facility] Number: Effective Repository Date:2017-07-22 07/22/2017 ELIZABETH R Primary ELIZABETH R Nam [id number] FOREST Insurance:AETNA PAPADOB: [facility] NELSON PERALTAPolicy Number: [id number] Cancer Center 98980Ywp: [id number] Repository Date:9600-78-21TU BOX (HP) 330931AC [place] [address]NL: 07/22/2017 Secondary NOT GIVENUNK Nam Insurance:SELF PAY On License [facility] Number: Effective Repository Date:2017-07-22 07/22/2017 ELIZABETH R Primary ELIZABETH R Gibson [id number] FOREST Insurance:AETNA PAPADOB: [facility] FABIAN, NELSONPolicy Number: [id number] Cancer [facility] 99346Rlf: [id number] Repository Date:0464-75-54RF BOX (HP) 313713LU [place] [address]JB: 07/22/2017 Secondary NOT GIVENUNK Gibson Insurance:SELF PAY [facility] Number: Effective Repository Date:2017-07-22 07/22/2017 ELIZABETH R Primary ELIZABETH R Gibson [id number] FOREST Insurance:AETNA DUNNDOB: [facility] Rubina PERALTAdanii Number: [id number] [facility] 21658Yha: [id number] Repository Date:7177-09-86NT BOX () 722183UM [place] [address]UP: 07/22/2017 Secondary NOT GIVENUNK Gibson Insurance:SELF PAY [facility] Number: Effective Repository Date:2017-07-22 2017 ELIZABETH R Primary ELIZABETH R Nam [id number] FOREST Insurance:AETNA DUNNDOB: [facility] NELSON PERALTABarnes-Kasson County Hospitaldanii Number: [id number] Cancer Center 48454Moy: [id number] Repository Date:6028-16-23DF BOX () 226213XBOP[place], [place] [address]GY: 2017 Secondary NOT GIVENUNK Nam Insurance:SELF PAY [facility] Number: Effective Repository Date:2017-05-26 07/13/2017 ELIZABETH R Primary ELIZABETH R Gibson [id number] FOREST Insurance:MEDICARE DUNNDOB: [facility] FABIAN, PART A BPolicy [id number] [facility] [address]Lee: Number: Repository [id number] () Date:2017-04-11 07/13/2017 Secondary ELIZABETH R Nam Insurance:ANTHEMPolic DUNNDOB: Community y Number: [id number] Hospital [id number] Repository Date:0985-09-12[address] [address]KC: 07/13/2017 Tertiary NOT GIVENUNK Gibson Insurance:SELF PAY [facility] Number: Effective Repository Date:2017-04-11 07/10/2017 ELIZABETH R Primary ELIZABETH R Nam [id number] FOREST Insurance:AETNA DUNNDOB: Community Cesar GUSTAFSON Number: [id number] [facility] [id number]: [id number] Repository Date:8807-91-62[address] [address]WN: 07/10/2017 Secondary NOT GIVENUNK Gibson Insurance:SELF PAY On [facility]: Effective Repository Date:2017-06-21 07/10/2017 ELIZABETH R Primary ELIZABETH R Nam [id number] FOREST Insurance:AETSHERYL WETZELB: Rubina Stevensonicdanii Number: [id number] Cancer Center [id number]: [id number] Repository Date:3765-27-94[address]) [address], [place] [address]KH: 07/10/2017 Secondary NOT GIVENUNK Gibson Insurance:SELF PAY On License [facility] Number: Effective Repository Date:2017-07-10 07/03/2017 ELIZABETH R Primary ELIZABETH R Nam [id number] FOREST Insurance:MORENO WETZELB: Cesar Stevenson Number: [id number] Cancer Center [id number]: [id number] Repository Date:5118-79-06[address] ([address]) [address], [place] [address]KK: 07/03/2017 Secondary NOT GIVENUNK Gibson Insurance:SELF PAY On License [facility] Number: Effective Repository Date:2017-07-03 06/21/2017 ELIZABETH R Primary ELIZABETH R Gibson [id number] FOREST Insurance:MARIATSHERYL WETZELB: Cesar Stevenson Number: [id number] Cancer Center [id number]: [id number] Repository Date:7669-31-93[address] ([address]) [address], [place] [address]PY: 06/21/2017 Secondary NOT GIVENUNK Nam Insurance:SELF PAY On License [facility] Number: Effective Repository Date:2017-04-01 06/21/2017 ELIZABETH R Primary ELIZABETH R Nam [id number] FOREST Insurance:AETNA PAPADOB: [facility] Number: [id number] Cancer [facility] [id number]: [id number] Repository Date:5022-39-31[address]) [address] [address]FF: 06/21/2017 Secondary NOT GIVENUNK Gibson Insurance:SELF PAY [facility] Number: Effective Repository Date:2017-06-21 06/20/2017 ELIZABETH R Primary ELIZABETH R Gibson [id number] FOREST Insurance:AETNA PAPADOB: [facility] Number: [id number] Cancer Center [address]Mkz: [id number] Repository Date:8900-49-81[address]) [address], [place] [address]IB: 06/20/2017 Secondary NOT GIVENUNK Gibson Insurance:SELF PAY [facility] Number: Effective Repository Date:2017-06-20 05/24/2017 ELIZABETH R Primary ELIZABETH R Gibson [id number] FOREST Insurance:AETNA PAPADOB: [facility] [place] [facility] Number: [id number] Cancer Center [address]Kec: [id number] Repository Date:5220-74-31DV [address] ([address]) [address] [address]VE: 05/24/2017 Secondary NOT GIVENUNK Nam Insurance:SELF PAY [facility] Number: Effective Repository Date:2017-04-24 04/11/2017 ELIZABETH R Primary ELIZABETH R Nam [id number] FOREST Insurance:MEDICARE DUNNDOB: Community [facility], PART A [facility] [id number] Cancer Center [id number]: Number: Repository [id number] (HP) Date:2013-06-22 04/11/2017 Secondary ELIZABETH R Nam Insurance:ANTHEMPolic DUNNDOB: Community y Number: [id number] Hospital [id number] Repository Date:1138-85-12[address] [place] [address]KO: 04/11/2017 Tertiary NOT GIVENUNK Nam Insurance:SELF PAY [facility] Number: Effective Repository Date:2017-03-24 04/11/2017 ELIZABETH R Primary ELIZABETH R Gibson [id number] FOREST Insurance:MEDICARE DUNNDOB: [facility], PART A [facility] [id number] Cancer Center [address]Jwx: Number: Repository [id number] (HP) Date:2017-03-25 04/11/2017 Secondary ELIZABETH R Nam Insurance:ANTHEMPolic DUNNDOB: Community y Number: [id number] [facility] at Las [id number] Repository Date:8631-07-09[address] [place] [address]FF: 04/11/2017 Tertiary NOT GIVENUNK Nam Insurance:SELF PAY [facility] Number: Effective Repository Date:2017-03-25
== END 2018-03-23 21:20 | disposition home or self-care (01) ==
PROVIDERS: Emergency Provider Emergency Medicine; Family Provider Internal Medicine; PCP Internal Medicine
DX: I13.0 Hypertensive heart and chronic kidney disease with heart failure and stage 1 through stage 4 chronic kidney disease, or unspecified chronic kidney disease (principal); I50.9 Heart failure, unspecified; E11.22 Type 2 diabetes mellitus with diabetic chronic kidney disease; N18.9 Chronic kidney disease, unspecified; E66.9 Obesity, unspecified; I25.10 Atherosclerotic heart disease of native coronary artery without angina pectoris; I48.91 Unspecified atrial fibrillation; M06.9 Rheumatoid arthritis, unspecified; Z79.4 Long term (current) use of insulin; Z79.82 Long term (current) use of aspirin; Z79.01 Long term (current) use of anticoagulants; Z79.891 Long term (current) use of opiate analgesic; Z79.899 Other long term (current) drug therapy
CPT/HCPCS: 51702; 71045; 80048; 83880; 84484; 85025; 85610; 93005; 99285; A4216; J1940

== ENCOUNTER → 2018-03-24 06:30 | Outpatient (REF) | payer MEDICARE, SELFPAY ==
[2018-03-23 18:44] VITALS: BMI 43.4
[2018-03-24 07:42] LABS: Hematocrit 27.1 % (37-47); Hemoglobin 7.8 g/dl (12.0-15.0); Mean Corp Hgb Conc 28.8 g/gl (32-36); Mean Corpuscular Hgb 27.6 pg (27.0-32.0); Mean Corpuscular Volume 95.8 fL (81-99); Mean Platelet Vol. 9.4 fl (6.2-12.0); Platelet Count 208 K/mm3 (150-450); RBC Distribution Width CV 15.6 % (11.6-14.6); RBC Distribution Width SD 54.3 fl (35.1-43.9); Red Blood Count 2.83 M/mm3 (4.2-5.4); Scan Indicated on CBC? Y/N NO
--- OUTSIDE RECORDS SUMMARY | 2018-05-18 18:45 | XMS RPT_ITS ---
:1950 Author Organization OHIP Support Name Relationship Address Phone Kirti Ho Unavailable [address] [place] [address] Cortney Womackleen Unavailable Unavailable + [place] [address] R Unavailable Unavailable Unavailable Ho, Kirti Unavailable [address] [place] [address] Cortney Womackleen Unavailable Unavailable + [place] [address] R Unavailable Unavailable Unavailable Ho, Kirti Unavailable [address] [place] [address] Vu Phoebe Unavailable Unavailable + [place] [address] R Unavailable Unavailable Unavailable HO, KIRTI Unavailable [address] [place] [address] VU, PHOEBE Unavailable Unavailable + [place] [address] R Unavailable Unavailable Unavailable Ho, Kirti Unavailable [address] [place] [address] Vu, Phoebe Unavailable Unavailable + [place] [address] R Unavailable Unavailable Unavailable Ho, Kirti Unavailable [address] [place] [address] Vu Phoebe Unavailable Unavailable + [place] [address] R Unavailable Unavailable Unavailable Ho, Kirti Unavailable [address] [place] [address] Vu Phoebe Unavailable Unavailable + [place] [address] R Unavailable Unavailable Unavailable Ho, Kirti Unavailable [address] [place] [address] Vu, Phoebe Unavailable Unavailable + [place] [address] R Unavailable Unavailable Unavailable Ho, Kirti Unavailable [address] [place] [address] Vu, Phoebe Unavailable Unavailable + [place] [address] R Unavailable Unavailable Unavailable Ho, Kirti Unavailable [address] [place] [address] Vu, Phoebe Unavailable Unavailable + [place] [address] R Unavailable Unavailable Unavailable Ho, Kirti Unavailable [address] [place] [address] Vu, Phoebe Unavailable Unavailable + [place] [address] R Unavailable Unavailable Unavailable Ho, Kirti Unavailable [address] [place] [address] Vu, Phoebe Unavailable Unavailable + [place] [address] R Unavailable Unavailable Unavailable Ho, Kirti Unavailable [address] [place] [address] Vu, Phoebe Unavailable Unavailable + [place] [address] R Unavailable Unavailable Unavailable Ho, Kirti Unavailable [address] [place] [address] Vu, Phoebe Unavailable Unavailable + [place] [address] R Unavailable Unavailable Unavailable Ho, Kirti Unavailable [address] [place] [address] Vu, Phoebe Unavailable Unavailable + [place] [address] R Unavailable Unavailable Unavailable Ho, Kirti Unavailable [address] [place] [address] Vu, Phoebe Unavailable Unavailable + [place] [address] R Unavailable Unavailable Unavailable Ho, Kirti Unavailable [address] [place] [address] Vu, Phoebe Unavailable Unavailable + [place] [address] R Unavailable Unavailable Unavailable Ho, Kirti Unavailable [address] [place] [address] Vu, Phoebe Unavailable Unavailable + [place] [address] R Unavailable Unavailable Unavailable Ho, Kirti Unavailable [address] [place] [address] Vu, Phoebe Unavailable Unavailable + [place] [address] R Unavailable Unavailable Unavailable Ho, Kirti Unavailable [address] [place] [address] Vu, Phoebe Unavailable Unavailable + [place] [address] R Unavailable Unavailable Unavailable Ho, Kitri Unavailable [address] [place] [address] Vu, Phoebe Unavailable Unavailable + [place] [address] R Unavailable Unavailable Unavailable Ho, Kirti Unavailable [address] [place] [address] Vu, Phoebe Unavailable Unavailable + [place] [address] R Unavailable Unavailable Unavailable Ho, Kirti Unavailable [address] [place] [address] Vu, Phoebe Unavailable Unavailable + [place] [address] R Unavailable Unavailable Unavailable Ho, Kirti Unavailable [address] [place] [address] Vu, Phoebe Unavailable Unavailable + [place] [address] R Unavailable Unavailable Unavailable Ho, Kirti Unavailable [address] [place] [address] Vu, Phoebe Unavailable Unavailable + [place] [address] R Unavailable Unavailable Unavailable Ho, Kirti Unavailable [address] [place] [address] Vu, Phoebe Unavailable Unavailable + [place] [address] R Unavailable Unavailable Unavailable Ho, Kirti Unavailable [address] [place] [address] Vu, Phoebe Unavailable Unavailable + [place] [address] R Unavailable Unavailable Unavailable HO, KIRTI Unavailable [address] [place] [address] VU, PHOEBE Unavailable Unavailable + [place] [address] R Unavailable Unavailable Unavailable Ho, Kirti Unavailable [address] [place] [address] Vu, Phoebe Unavailable Unavailable + [place] [address] R Unavailable Unavailable Unavailable HO, KIRTI Unavailable [address] [place] [address] VU, PHOEBE Unavailable Unavailable + [place] [address] R Unavailable Unavailable Unavailable Ho, Kirti Unavailable [address] [place] [address] Vu, Phoebe Unavailable Unavailable + [place] [address] R Unavailable Unavailable Unavailable HO, KIRTI Unavailable [address] [place] [address] VU, PHOEBE Unavailable Unavailable + [place] [address] R Unavailable Unavailable Unavailable HO, KIRTI Unavailable [address] [place] [address] VU, PHOEBE Unavailable Unavailable + [place] [address] R Unavailable Unavailable Unavailable HO, KIRTI Unavailable [address] [place] [address] VU, PHOEBE Unavailable Unavailable + [place] [address] R Unavailable Unavailable Unavailable HO, KIRTI Unavailable [address] [place] [address] VU, PHOEBE Unavailable Unavailable + [place] [address] R Unavailable Unavailable Unavailable HO, KIRTI Unavailable [address] [place] [address] VU, PHOEBE Unavailable Unavailable + [place] [address] R Unavailable Unavailable Unavailable HO, KIRTI Unavailable [address] [place] [address] VU, PHOEBE Unavailable Unavailable + [place] [address] R Unavailable Unavailable Unavailable HO, KIRTI Unavailable [address] [place] [address] VU, PHOEBE Unavailable Unavailable + [place] [address] R Unavailable Unavailable Unavailable [facility], KIRTI Unavailable [address] [place] [address] VU, PHOEBE Unavailable Unavailable + [place] [address] R Unavailable Unavailable Unavailable [facility], KIRTI Unavailable [address] [place] [address] VU, PHOEBE Unavailable Unavailable + [place] [address] R Unavailable Unavailable Unavailable [facility], KIRTI Unavailable [address] [place] [address] VU, PHOEBE Unavailable Unavailable + [place] [address] R Unavailable Unavailable Unavailable HO[facility] , KIRTI Unavailable [address] [place] [address] VU, PHOEBE Unavailable Unavailable + [place] [address] R Unavailable Unavailable Unavailable HO-[facility] , KIRTI Unavailable [address] [place] [address] CHELSEA WOMACKEN Unavailable Unavailable + [place] [address] R Unavailable Unavailable Unavailable HO, KIRTI Unavailable [address] [place] [address] CHELSEA WOMACKEN Unavailable Unavailable + [place] [address] R Unavailable Unavailable Unavailable [facility], KIRTI Unavailable [address] [place] [address] VU, PHOEBE Unavailable Unavailable + [place] [address] R Unavailable Unavailable Unavailable HO, KIRTI Unavailable [address] [place] [address] CHELSEA WOMACKEN Unavailable Unavailable + [place] [address] R Unavailable Unavailable Unavailable HO, KIRTI Unavailable [address] + [address] [place] [address] VU, PHOEBE Unavailable Unavailable + [place] [address] R Unavailable Unavailable Unavailable HO, KIRTI Unavailable [address] + [address] [place] [address] CHELSEA WOMACKEN Unavailable Unavailable + [place] [address] R Unavailable Unavailable Unavailable HO, KIRTI Unavailable [address] + [address] [place] [address] CHELSEA WOMACKEN Unavailable Unavailable + [place] [address] R Unavailable Unavailable Unavailable [facility], KIRTI Unavailable [address] [place] [address] CHELSEA WOMACKEN Unavailable Unavailable + [place] [address] R Unavailable Unavailable Unavailable [facility], KIRTI Unavailable [address] [place] [address] VU, PHOEBE Unavailable Unavailable + [place] [address] R Unavailable Unavailable Unavailable [facility] [place] , KIRTI Unavailable [address] [place] [address] VU, PHOEBE Unavailable Unavailable + [place] [address] R Unavailable Unavailable Unavailable HO-[facility] [place] , KIRTI Unavailable [address] + [address] [place] [address] VU, PHOEBE Unavailable Unavailable + [place] [address] R Unavailable Unavailable Unavailable HO, KIRTI Unavailable [address] + [address] [place] [address] VU, PHOEBE Unavailable Unavailable + [place] [address] R Unavailable Unavailable Unavailable HO, KIRTI Unavailable [address] + [address] [place] [address] VU, PHOEBE Unavailable Unavailable + [place] [address] R Unavailable Unavailable Unavailable HO, KIRTI Unavailable [address] + [address] [place] [address] VU, PHOEBE Unavailable Unavailable + [place] [address] R Unavailable Unavailable Unavailable HO, KIRTI Unavailable [address] + [address] [place] [address] VU, PHOEBE Unavailable Unavailable + [place] [address] R Unavailable Unavailable Unavailable HO, KIRTI Unavailable [address] + [address] [place] [address] R Unavailable Unavailable Unavailable HO, KIRTI Unavailable [address] + [address] [place] [address] VU, PHOEBE Unavailable Unavailable + [place] [address] R Unavailable Unavailable Unavailable HO, KIRTI Unavailable [address] + [address] [place] [address] VU, PHOEBE Unavailable Unavailable + [place] [address] R Unavailable Unavailable Unavailable HO, KIRTI Unavailable [address] + [address] [place] [address] PHOEBE WOMACK Unavailable Unavailable + [place] [address] R Unavailable Unavailable Unavailable HO, KIRTI Unavailable [address] [place] [address] R Unavailable Unavailable Unavailable HO, KIRTI Unavailable [address] [place] [address] R Unavailable Unavailable Unavailable HO, KIRTI Unavailable [address] + [address] [place] [address] R Unavailable Unavailable Unavailable HO, KIRTI Unavailable [address] + [address] [place] [address] PHOEBE WOMACK Unavailable Unavailable + [place] [address] R Unavailable Unavailable Unavailable HO, KIRTI Unavailable [address] [place] [address] R Unavailable Unavailable Unavailable HO, KIRTI Unavailable [address] + [address] [place] [address] R Unavailable Unavailable Unavailable HO, KIRTI Unavailable [address] + [address] [place] [address] R Unavailable Unavailable Unavailable HO, KIRTI Unavailable [address] + [address] [place] [address] R Unavailable Unavailable Unavailable HO, KIRTI Unavailable [address] [place] [address] R Unavailable Unavailable Unavailable HO, KIRTI Unavailable [address] [place] [address] R Unavailable Unavailable Unavailable HO, KIRTI Unavailable [address] [place] [address] R Unavailable Unavailable Unavailable Care Team Providers Name Role Phone RON MACIAS (TEST DESIGN ENGINEER) Attending Unavailable WILLIAMS PAREKH Referring Unavailable WILLIAMS PAREKH Attending Unavailable WILLIAMS PAREKH Referring Unavailable ARIEL, AMAR Attending Unavailable ARIEL AMAR Referring Unavailable ARIEL AMAR Referring Unavailable RON MACIAS (TEST DESIGN ENGINEER) Attending Unavailable WILLIAMS PAREKH Referring Unavailable EMA CURRY (DIRECTOR OF ACCOUNTING) Attending Unavailable Moodispaw, Michael Attending Unavailable Moodispaw, Michael Referring Unavailable Talampas, Williams Primary Care Unavailable Lela Bullock Attending Unavailable Talampas, Williams Referring Unavailable Moodispaw, Michael Attending Unavailable Moodispaw, Michael Referring Unavailable Talampas, Willaims Primary Care Unavailable Esa, Michael Attending Unavailable [...] Unavailable Talampas, Williams Primary Care Unavailable Ha Heramn Attending Unavailable Talampas, Williams Primary Care Unavailable White, Loren Admitting Unavailable Moodthi, Michael Consulting Unavailable Muraliaruk, Kombian Attending Unavailable White, Loren Admitting Unavailable White, Loren Attending Unavailable Talampas, Williams Primary Care Unavailable White, Loren Consulting Unavailable White, Loren Admitting Unavailable Esa Michael Attending Unavailable Talampas, Williams Primary Care Unavailable Moodthi, Michael Consulting Unavailable White, Lroen Consulting Unavailable White, Loren Admitting Unavailable Ashelfah, [...] ATTENDING STATUS SOURCE 04/05/2018 Unknown Z79.01 - correction Michael Figueroa (current) use of Community anticoagulants [...] Unknown I10 - Essential Michael Figueroa Active [facility] (primary) hypertension Community / I10(ICD-10) Hospital Repository 03/23/2018 Unknown E78.5 - Michael Figueroa Active [facility] Hyperlipidemia, Community unspecified / Hospital E78.5(ICD-10) Repository 03/05/2018 Unknown I50.9 - Heart failure, Michael Figueroa Active [facility] unspecified / Community I50.9(ICD-10) Hospital Repository 02/28/2018 [...] M25.559 - Pain in Oleronnie, Octavio Active [facility] unspecified hip / Community M25.559(ICD-10) Hospital Repository 12/28/2017 Unknown M06.9 - Rheumatoid Micki, Active [facility] arthritis, unspecified [place] Community / M06.9(ICD-10) Hospital Repository 12/27/2017 Unknown I48.2 - Chronic atrial Ara, Lela Active [facility] fibrillation / Community I48.2(ICD-10) Hospital Repository 12/27/2017 Unknown I42.8 - Other Ara, Lela Active [facility] cardiomyopathies / Community I42.8(ICD-10) Hospital Repository 12/27/2017 Unknown 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 / Repository Z95.810(ICD-10) 12/27/2017 Unknown I47.2 - Ventricular AraLela Active [facility] tachycardia / Community I47.2(ICD-10) Hospital Repository 12/26/2017 Unknown I48.0 - Paroxysmal Moodispaw, Active [facility] atrial fibrillation / [facility] I48.0(ICD-10) Hospital Repository 12/26/2017 Unknown 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, Active [facility] 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 Repository without angina pectoris / I25.10(ICD-10) 12/26/2017 Unknown I05.2 - Rheumatic Moodispaw, Active [facility] mitral stenosis with [facility] insufficiency / Hospital I05.2(ICD-10) Repository 12/26/2017 Unknown I35.0 - Nonrheumatic Moodispaw, Active [facility] aortic (valve) [facility] stenosis / Hospital I35.0(ICD-10) Repository 12/26/2017 Unknown I47.1 - Moodispaw, Active [facility] Supraventricular [facility] tachycardia / Hospital I47.1(ICD-10) Repository 01/19/2017 Active Type 2 diabetes NA Active [place] mellitus with other Clinic Main circulatory [place] complications / Repository E11.59(ICD-10) 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/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 / Clinic Main Z79.4(ICD-10) [place] Repository 03/08/2014 Active Chronic kidney NA Active [place] disease, stage 4 Clinic Main (severe) / [place] N18.4(ICD-10) Repository 10/03/2017 Active Pain in unspecified NA Active [place] joint / M25.50(ICD-10) Clinic Main [place] Repository 09/07/2017 Active Acute on chronic NA Active [place] diastolic (congestive) Clinic Main heart failure / [place] I50.33(ICD-10) Repository 08/17/2017 Active Other residential NA Active [place] (current) drug therapy Clinic Main / Z79.899(ICD-10) [place] Repository 08/01/2017 Active Unknown / UNK(Unknown) RON MACIAS Active [place] (TEST DESIGN ENGINEER) Clinic Main [place] Repository 09/06/2017 Unknown M79.89 - Other Ha Herman Active [facility] specified soft tissue Community disorders / Hospital M79.89(ICD-10) Repository 06/21/2017 Unknown 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 Community / Z95.3(ICD-10) Hospital Repository 06/21/2017 Unknown R42 - Dizziness and Roof, Anibal H Active [facility] giddiness / Community R42(ICD-10) Hospital Repository PROCEDURES PROCEDURES No Procedure Records FoundRESULTS RESULTS PROGRESS Observed: 03/28/2018 Status: COMPLETED Source: [place] 9:21 AM [facility] REPOSITORY HNO ID: [id number] Author: Rashida Allen Service: (none) Author Type: Registered Nurse Type: Progress Notes Filed: 03/28/2018 9:21 AM Note Text: PRIMARY CARE COORDINATION QUICK NOTE Provider Action/FYI Pt 03/27/18 at [facility] Patient identified by name and date . Pt at [facility] yesterday, PROGRESS Observed: 03/28/2018 Status: COMPLETED Source: [place] 8:38 AM [facility] REPOSITORY HNO ID: [id number] Author: Makeda Curtis Cma Service: (none) Author Type: (none) Type: Progress Notes Filed: 03/28/2018 8:41 AM Note Text: I spoke with Mony at [facility] and she states that Elizabeth yesterday. CNPTOUTREACH Observed: 03/28/2018 Status: COMPLETED Source: [place] 12:00 AM [facility] REPOSITORY Patient Outreach (INTMWS) ELIZABETH HO ([id number]) 1950 F Date Time Provider Department 03/28/18 RASHIDA SALDANA INTMWS During your visit today, we recorded the following information about you: Rashida Lovell RN 03/28/2018 9:21 AM Signed PRIMARY CARE COORDINATION QUICK NOTE Provider Action/FYI Pt 03/27/18 at [facility] Patient identified by name and date . Pt at [facility] yesterday, Allergies As of Date: 03/28/2018 Noted Allergy Reaction AUGMENTIN (AMOXICILLIN-POT CLAVUL*2013 2 - Rash SULFA (SULFONAMIDE ANTIBIOTICS) 01/10/2005 4 - Hives VANCOMYCIN 08/26/2013 10 - Anaphylaxis Comments: Per pharmacist. Patient tolerating PO Vancomycin. on 01/07 pt in [facility] and had ld syndrome rxn [...] [N25.81] INVALID FOR* CAD (coronary artery disease), [place] coronary *INVALID FOR* More... More... Torsades de [...] (ICD) in*INVALID FOR* More... More... DVT prophylaxis [XZZ0495] INVALID FOR* More... Thrombocytopenia (HCC) [D69.6] INVALID [...] 03/27/2018 Status: F Source: [place]AM 2:08 PM [facility] REPOSITORY [facility] Cardiovascular Services [address] [place] [address] 12 Lead EKG 03/23/181926 MR#: [id number] Acct: [id number] Name: ELIZABETH HO Rep #: [id number] : 1950 67 From: Saji Hernandez MD [...] ECG Confirmed by SAJI HERNANDEZ MD ([id number]), website/blog editor CAT CONKLIN ([id number]) on 03/27/2018 2:08:39 PM Referred By: KOBE Confirmed By:SAJI HERNANDEZ MD 03/27/18 1408 Date Saji Hernandez MD CC: Kandi Chávez MD; Williams Parekh MD Signed PROTIME W/INR Collected: 03/27/2018 Status: F Source: NAM [place] 7:20 AM [facility] REPOSITORY TYPE CODE TESTS RESULT OUT OF REFERENCE UNITS RANGE LAB L9200.1001 11.9-14.4 SEC High PROTIME ISTAT 55.8 Result Comment: Reference Range 11.9 - 14.4 LAB L9200.2000 High alert INR ISTAT 5.00 Result Comment: Critical Value > 3.5 Performed By: #### L9200.0000 #### [facility] Point of Care [address] [place], [place] [address] BASIC METABOLIC Collected: 03/27/2018 Status: F Source: NAM PROFILE (BMP) 7:15 AM [facility] REPOSITORY Order Comment: 136 TYPE CODE TESTS [...] GAP 18 Performed By: #### L500.2500 #### [facility] [address] [place], [place], [address] CBC-COMPLETE BLOOD CNT Collected: 03/24/2018 Status: F Source: NAM NO DIFF 6:30 AM [facility] REPOSITORY TYPE CODE TESTS RESULT OUT [...] MPV 9.4 Performed By: #### L100.0500 #### [facility] [address] [place], [address] EMERGENCY DEPARTMENT Observed: 03/23/2018 Status: F Source: [place] SUMMARY 10:56 PM [facility] REPOSITORY [facility] Medical Records Department [address] [place] [address] Emergency Department Summary 03/23/18 2045 MR#: [id number] Acct: [id number] Name: ELIZABETH HO Rep #: [id number] : 1950 67 From: Kandi Chávez MD PCP: Williams Parekh MD Status: DEP ER - ER Visit Summary Date of Service: 03/23/18 Chief Complaint: Edema, shortness of breath History of Present Illness: The patient is a 67 F sent in from the [facility] with increased edema and shortness of [...] Impression: CHF This note was generated with Hyperpia dictation software. It may contain incorrect words, [...] your Primary Care Provider. Call [facility] ([phone]) or report to the closest Emergency Room. Call 911 if necessary. 03/23/18 4175 <Electronically signed by Kandi Chávez MD> Date Kandi Chávez MD Cosigner Signature (If Indicated): Date CC: Williams Parekh MD DISCHARGE INSTRUCTION Observed: 03/23/2018 Status: F Source: NAM 8:46 PM [facility] REPOSITORY [facility] Medical Records Department [address] [place] [address] Discharge Instruction 03/23/182044 MR#: [id number] Acct: [id number] Name: ELIZABETH HO Rep #: [id number] : 1950 67 From: Kandi Chávez MD [...] your Primary Care Provider. Call [facility] ([phone]) or report to the closest Emergency Room. Call 911 if necessary. 03/23/182045 <Electronically signed by Kandi Chávez MD> Date Kandi Chávez MD Cosigner Signature (If Indicated): Date CC: Williams Parekh MD CBC W/DIFF, AUTOMATED Collected: 03/23/2018 Status: F Source: NAM 7:43 PM [facility] REPOSITORY TYPE CODE TESTS RESULT OUT [...] Lymph 0.36 Performed By: #### L100.0100 #### [facility] [address] [place], [place], [address] PROTHROMBIN TIME W/INR Collected: 03/23/2018 Status: F Source: [place] 7:43 PM [facility] REPOSITORY TYPE CODE TESTS RESULT OUT OF RANGE REFERENCE UNITS LAB L300.4150 11.7-14.9 SECONDS High PROTIME 25.8 LAB L300.4200 Normal INR 2.3 Performed By: #### L300.3900 #### [facility] [address] [place], [address] BASIC METABOLIC Collected: 03/23/2018 Status: F Source: [place] PROFILE (BMP) 7:43 PM [facility] REPOSITORY TYPE CODE TESTS RESULT OUT [...] 7 Performed By: #### L500.2500, L501.4010 #### [facility] [address] [place], [place], [address] TROPONIN-I Collected: 03/23/2018 Status: F Source: [place] 7:43 PM [facility] REPOSITORY TYPE CODE TESTS RESULT OUT OF RANGE REFERENCE UNITS LAB L501.4010 <0.045 ng/mL Normal < 0.015 TROPONIN-I Result Comment: TROPONIN-I EXPECTED VALUES <0.045 Negative 0.045 - 0.590 Consistent with Cardiac Damage > OR = 0.600 Critical Value Not every elevated troponin is indicative of SD. These values should be used with clinical judgement in examining the patient's clinical picture for diagnosis. To establish a diagnosis of SD versus myocardial injury, there must be a demonstrated rise and/or fall in the troponin values, in addition to ischemic symptoms, EKG changes, new regional wall motion abnormality, and/or angiographical evidence. PLEASE NOTE: REFERENCE RANGES EDITED 17 Performed By: #### L500.2500, L501.4010 #### [facility] [address] [place], [place], [address] BNP,B-TYPE NATRIURETIC Collected: 03/23/2018 Status: F Source: [place] PEPTIDE 7:43 PM [facility] REPOSITORY TYPE CODE TESTS RESULT OUT OF RANGE REFERENCE UNITS LAB L503.6620 0-100 pg/mL High B-TYPE 822.6 LILY PEP Performed By: #### L503.6620 #### [facility] [address] [place], [address] CHEST 1 VIEW Observed: 03/23/2018 Status: F Source: NAM (PORTABLE) 7:14 PM [facility] REPOSITORY [facility] Imaging Services [address] [place] [address] Chest 1 View (Portable) MR#: [id number] Acct: [id number] Name: ELIZABETH HO Rep #: [id number] : 1950 F 67 From: Ze Galvan DO PCP: Williams Parekh MD Status: REG ER Study: Chest 1 View (Portable) Date of Exam: 03/23/18 Exam# [id number] Ordering Dr: Kandi Chávez MD STUDY: X-RAY [...] Ze Galvan DO at 19:35 EST Tel [phone], Service support , CC: Kandi Chávez MD; Williams Parekh MD Tester Operator Helper: Signed CBC-COMPLETE BLOOD CNT Collected: 03/22/2018 Status: F Source: NAM NO DIFF 6:35 AM [facility] REPOSITORY TYPE CODE TESTS RESULT OUT [...] MPV 10.2 Performed By: #### L100.0500 #### [facility] [address] [place] [place], [place], [address] BASIC METABOLIC Collected: 03/22/2018 Status: F Source: NAM PROFILE (BMP) 6:35 AM [facility] REPOSITORY TYPE CODE TESTS RESULT OUT [...] GAP 7 Performed By: #### L500.2500 #### [facility] [address] [place], [address] PROGRESS Observed: 03/21/2018 Status: COMPLETED Source: COVE 8:55 AM [facility] REPOSITORY HNO ID: [id number] Author: Makeda Curtis Cma Service: (none) Author Type: (none) Type: Progress Notes Filed: 03/21/2018 8:57 AM Note Text: Left message for to return call #[phone] Patient still residing at [facility] CBC-COMPLETE BLOOD CNT Collected: 03/20/2018 Status: F Source: NAM NO DIFF 5:35 AM [facility] REPOSITORY Order Comment: 136 TYPE CODE TESTS [...] MPV 10.8 Performed By: #### L100.0500 #### [facility] [address] [place], [place], [address] BASIC METABOLIC Collected: 03/20/2018 Status: F Source: NAM PROFILE (BMP) 5:35 AM [facility] REPOSITORY Order Comment: 136 TYPE CODE TESTS [...] GAP 6 Performed By: #### L500.2500 #### [facility] [address] [place], [place], [id number] PROTHROMBIN TIME W/INR Collected: 03/20/2018 Status: F Source: [place] 5:35 AM [facility] REPOSITORY Order Comment: 136 TYPE CODE TESTS RESULT OUT OF RANGE REFERENCE UNITS LAB L300.4150 11.7-14.9 SECONDS High PROTIME 25.0 LAB L300.4200 Normal INR 2.3 Performed By: #### L300.3900 #### [facility] [address] [place], [address] PROTIME W/INR Collected: 03/19/2018 Status: F Source: [place] FINGER[place]ICK 6:15 AM [facility] REPOSITORY TYPE CODE TESTS RESULT OUT OF REFERENCE UNITS RANGE LAB L9200.1001 11.9-14.4 SEC High PROTIME ISTAT 26.9 Result Comment: Reference Range 11.9 - 14.4 LAB L9200.2000 Normal INR ISTAT 2.30 Result Comment: Critical Value > 3.5 Performed By: #### L9200.0000 #### [facility] [place] [address] [place] [address] PROTHROMBIN TIME W/INR Collected: 03/16/2018 Status: F Source: [place] 10:45 AM [facility] REPOSITORY Order Comment: RM: 136 TYPE CODE TESTS RESULT OUT OF REFERENCE UNITS RANGE LAB L300.4150 11.7-14.9 SECONDS High PROTIME 39.1 LAB L300.4200 High alert INR 4.0 Result Comment: CRITICAL VALUE VERIFIED. CALLED TO [facility] [place] 03/16/18 1249 Cyndie Lanier. RESULTS READ BACK BY SAME . Performed By: #### L300.3900 #### [facility] [address] [place], [address] COMPREHENSIVE METABOLIC Collected: 03/16/2018 Status: F Source: [facility] 10:45 AM [facility] REPOSITORY Order Comment: RM: 136 TYPE CODE [...] GAP 10 Performed By: #### L500.4050 #### [facility] [address] [place], [place], [id number] PROTIME W/INR Collected: 03/16/2018 Status: F Source: [place] 5:37 AM [facility] REPOSITORY TYPE CODE TESTS RESULT OUT OF REFERENCE UNITS RANGE LAB L9200.1001 11.9-14.4 SEC High PROTIME ISTAT 48.4 Result Comment: Reference Range 11.9 - 14.4 LAB L9200.2000 High alert INR ISTAT 4.30 Result Comment: Critical Value > 3.5 Performed By: #### L9200.0000 #### [facility] [place] [address] [place], [place] [id number] PROGRESS Observed: 03/14/2018 Status: COMPLETED Source: [place] 8:57 AM [facility] REPOSITORY HNO ID: [id number] Author: Makeda Ever Valle Service: (none) Author Type: (none) Type: Progress Notes Filed: 03/14/2018 8:57 AM Note Text: No discharge plans in place at this time. PROTHROMBIN TIME W/INR Collected: 03/14/2018 Status: F Source: NAM 6:05 AM [facility] REPOSITORY Order Comment: 136 TYPE CODE TESTS RESULT OUT OF REFERENCE UNITS RANGE LAB L300.4150 11.7-14.9 SECONDS High PROTIME 40.9 LAB L300.4200 High alert INR 4.2 Result Comment: CRITICAL VALUE VERIFIED. CALLED TO GWEN FRANCISCO 03/14/18 0935 Reji Taylor. RESULTS READ BACK BY SAME. Performed By: #### L300.3900 #### [facility] [address] [facility] [place], [place], [id number] CBC-COMPLETE BLOOD CNT Collected: 03/12/2018 Status: F Source: NAM NO DIFF 5:25 AM [facility] REPOSITORY Order Comment: ROOM 136 TYPE CODE [...] MPV 10.4 Performed By: #### L100.0500 #### [facility] [address] [place], [place], [address] BASIC METABOLIC Collected: 03/12/2018 Status: F Source: NAM PROFILE (BMP) 5:25 AM [facility] REPOSITORY Order Comment: ROOM 136 TYPE CODE [...] GAP 5 Performed By: #### L500.2500 #### [facility] [address] [place], [place], [address] PROTHROMBIN TIME W/INR Collected: 03/12/2018 Status: F Source: NAM 5:25 AM [facility] REPOSITORY Order Comment: ROOM 136 TYPE CODE TESTS RESULT OUT OF REFERENCE UNITS RANGE LAB L300.4150 11.7-14.9 SECONDS High PROTIME 43.9 LAB L300.4200 High alert INR 4.6 Result Comment: CRITICAL VALUE VERIFIED. CALLED TO JACK FRANCISCO 03/12/18 0841 Reji Taylor. RESULTS READ BACK BY SAME. Performed By: #### L300.3900 #### [facility] [address] [place], [place], [address] PROGRESS Observed: 03/07/2018 Status: COMPLETED Source: [place] 9:54 AM [facility] REPOSITORY HNO ID: [id number] Author: Makeda Curtis Cma Service: (none) Author Type: (none) Type: Progress Notes Filed: 03/07/2018 9:54 AM Note Text: No discharge plans in place at this time. BASIC METABOLIC Collected: 03/06/2018 Status: F Source: NAM PROFILE (BMP) 6:25 AM [facility] REPOSITORY Order Comment: 136 TYPE CODE TESTS [...] GAP 6 Performed By: #### L500.2500 #### [facility] [address] [place], [address] CBC-COMPLETE BLOOD CNT Collected: 03/06/2018 Status: F Source: NAM NO DIFF 6:25 AM [facility] REPOSITORY TYPE CODE TESTS RESULT OUT [...] MPV 10.5 Performed By: #### L100.0500 #### [facility] [address] [place], [address] PROTIME W/INR Collected: 03/02/2018 Status: F Source: [place]AM [place] 5:52 AM [facility] REPOSITORY TYPE CODE TESTS RESULT OUT OF REFERENCE UNITS RANGE LAB L9200.1001 11.9-14.4 SEC High PROTIME ISTAT 26.7 Result Comment: Reference Range 11.9 - 14.4 LAB L9200.2000 Normal INR ISTAT 2.30 Result Comment: Critical Value > 3.5 Performed By: #### L9200.0000 #### [facility] [place] [address] [place], [place] [address] PROGRESS Observed: 03/01/2018 Status: COMPLETED Source: [place] 10:00 AM [facility] REPOSITORY HNO ID: [id number] Author: Makeda Curtis Cma Service: (none) Author Type: (none) Type: Progress Notes Filed: 03/01/2018 10:01 AM Note Text: No discharge plans in place at this time. CBC-COMPLETE BLOOD CNT Collected: 02/28/2018 Status: F Source: NAM NO DIFF 6:20 AM [facility] REPOSITORY Order Comment: RM 136 TYPE CODE [...] MPV 10.8 Performed By: #### L100.0500 #### [facility] [address] [place], [place], [address] PROGRESS Observed: 02/21/2018 Status: COMPLETED Source: [place] 9:23 AM [facility] REPOSITORY HNO ID: [id number] Author: Makeda Curtis Cma Service: (none) Author Type: (none) Type: Progress Notes Filed: 02/21/2018 9:23 AM Note Text: No plans in place at this time. PROTHROMBIN TIME W/INR Collected: 02/20/2018 Status: F Source: NAM 5:50 AM [facility] REPOSITORY Order Comment: ROOM 136 TYPE CODE TESTS RESULT OUT OF RANGE REFERENCE UNITS LAB L300.4150 11.7-14.9 SECONDS High PROTIME 25.6 LAB L300.4200 Normal INR 2.3 Performed By: #### L300.3900 #### [facility] [address] [place], [address] BASIC METABOLIC Collected: 02/20/2018 Status: F Source: NAM PROFILE (BMP) 5:50 AM [facility] REPOSITORY Order Comment: ROOM 136 TYPE CODE [...] GAP 7 Performed By: #### L500.2500 #### [facility] [address] [place], [address] CBC-COMPLETE BLOOD CNT Collected: 02/20/2018 Status: F Source: [place] NO DIFF 5:50 AM [facility] REPOSITORY Order Comment: ROOM 136 TYPE CODE [...] MPV 10.6 Performed By: #### L100.0500 #### [facility] [address] [place], [place], [address] HEMOGLOBIN A1C Collected: 02/20/2018 Status: F Source: NAM 5:50 AM [facility] REPOSITORY TYPE CODE TESTS RESULT OUT OF RANGE REFERENCE UNITS LAB L501.9985 4.2-6.3 % High HGB A1C 7.3 Performed By: #### L501.9985 #### [facility] [address] [place], [address] PROGRESS Observed: 02/15/2018 Status: COMPLETED Source: [place] 9:13 AM [facility] REPOSITORY HNO ID: [id number] Author: Makeda Curtis Cma Service: (none) Author Type: (none) Type: Progress Notes Filed: 02/15/2018 9:15 AM Note Text: No discharge plans in place at this time. CBC-COMPLETE BLOOD CNT Collected: 02/14/2018 Status: F Source: NAM NO DIFF 8:20 AM [facility] REPOSITORY TYPE CODE TESTS RESULT OUT [...] MPV 10.5 Performed By: #### L100.0500 #### [facility] [address] [place], [address] PROTIME W/INR Collected: 02/09/2018 Status: F Source: [place]AM [place] 7:01 AM [facility] REPOSITORY TYPE CODE TESTS RESULT OUT OF REFERENCE UNITS RANGE LAB L9200.1001 11.9-14.4 SEC High PROTIME ISTAT 31.8 Result Comment: Reference Range 11.9 - 14.4 LAB L9200.2000 Normal INR ISTAT 2.80 Result Comment: Critical Value > 3.5 Performed By: #### L9200.0000 #### [facility] [address] [place], [place] [address] CBC-COMPLETE BLOOD CNT Collected: 02/08/2018 Status: F Source: NAM NO DIFF 7:05 AM [facility] REPOSITORY TYPE CODE TESTS RESULT OUT [...] MPV 10.2 Performed By: #### L100.0500 #### [facility] [address] [place], [place], [address] BASIC METABOLIC Collected: 02/08/2018 Status: F Source: NAM PROFILE (BMP) 7:05 AM [facility] REPOSITORY TYPE CODE TESTS RESULT OUT [...] GAP 5 Performed By: #### L500.2500 #### [facility] [address] [place], [address] PROGRESS Observed: 02/07/2018 Status: COMPLETED Source: [place] 4:34 PM [facility] REPOSITORY HNO ID: [id number] Author: Rashida Allen Service: (none) Author Type: Registered Nurse Type: Progress Notes Filed: 02/07/2018 4:47 PM Note Text: PRIMARY CARE COORDINATION FOLLOW-UP NOTE Provider Action/FYI Pt went to [facility] with hip pain and debility after her appt her in Dec. She is currently in rehab at the [facility] and will be moving into the [place] section there after rehab. Patient identified by name and date of . YES Spoke to patient Summary: Pt is in the [facility]. [place] there as well. She will call when she is out for continuing care. Concerns: Her hip pain is lessening with therapy. She was in [facility] 3 days after her appt with pain and went to the [facility] for rehab. Diabetes Nurse plan for next outreach: Will follow up upon D/C from [facility] Rashida Allen RN Ambulatory Physical Security Manager Internal Medicine [facility] February 07, 2018 PROTIME W/INR Collected: 02/07/2018 Status: F Source: [place] 10:23 AM [facility] REPOSITORY TYPE CODE TESTS RESULT OUT OF REFERENCE UNITS RANGE LAB L9200.1001 11.9-14.4 SEC High PROTIME ISTAT 35.5 Result Comment: Reference Range 11.9 - 14.4 LAB L9200.2000 Normal INR ISTAT 3.10 Result Comment: Critical Value > 3.5 Performed By: #### L9200.0000 #### [facility] [address] [place] [address] CNPTOUTREACH Observed: 02/07/2018 Status: COMPLETED Source: [place] 12:00 AM [facility] REPOSITORY Patient Outreach (INTMWS) ELIZABETH HO ([id number]) 1950 F Date Time Provider Department 02/07/18 RASHIDA SALDANA During your visit today, we recorded the following information about you: Rashida Lovell RN 02/07/2018 4:47 PM Signed PRIMARY CARE COORDINATION FOLLOW-UP NOTE Provider Action/FYI Pt went to [facility] with hip pain and debility after her appt her in Dec. She is currently in rehab at the [facility] and will be moving into the [place] section there after rehab. Patient identified by name and date of . YES Spoke to patient Summary: Pt is in the [facility]. [place] moving [place] there as [place]. She will call when she is out for continuing care. Concerns: Her hip pain is lessening with therapy. She was in [facility] 3 days after her appt with pain and went to the [facility] for rehab. Diabetes Nurse plan for next outreach: Will follow up upon D/C from [facility] Rashida lAlen RN Ambulatory Physical Security Manager Internal Medicine [facility] February 07, 2018 Makeda Curtis [facility] 02/15/2018 9:15 AM Signed No discharge plans in place at this time. Makeda Curtis [facility] 02/21/2018 9:23 AM Signed No plans in place at this time. Makeda Curtis [facility] 03/01/2018 10:01 AM Signed No discharge plans in place at this time. Makeda Curtis [facility] 03/07/2018 9:54 AM Signed No discharge plans in place at this time. Makeda Curtis [facility] 03/14/2018 8:57 AM Signed No discharge plans in place at this time. Makeda Curtis [facility] 03/21/2018 8:57 AM Signed Left message for to return call #[phone] Patient still residing at [facility] Makeda Curtis [facility] 03/28/2018 8:41 AM Signed I spoke with Mony at [facility] and she states that Elizabeth yesterday. Allergies As of Date: 02/07/2018 Noted Allergy Reaction AUGMENTIN (AMOXICILLIN-POT CLAVUL*2013 2 - Rash SULFA (SULFONAMIDE ANTIBIOTICS) 01/10/2005 4 - Hives VANCOMYCIN 08/26/2013 10 - Anaphylaxis Comments: Per pharmacist. Patient tolerating PO Vancomycin. on 01/07 pt in [facility] and had ld syndrome rxn [...] [N25.81] INVALID FOR* CAD (coronary artery disease), [place] coronary *INVALID FOR* More... More... Torsades de [...] (ICD) in*INVALID FOR* More... More... DVT prophylaxis [[id number]] INVALID FOR* More... Thrombocytopenia (HCC) [D69.6] INVALID [...] F Source: NAM PROFILE (BMP) 6:15 AM [facility] REPOSITORY TYPE CODE TESTS RESULT OUT [...] GAP 8 Performed By: #### L500.2500 #### [facility] [address] [place], [place], [address] PROTHROMBIN TIME W/INR Collected: 01/31/2018 Status: F Source: NAM 6:15 AM [facility] REPOSITORY Order Comment: ROOM 136 TYPE CODE TESTS RESULT OUT OF RANGE REFERENCE UNITS LAB L300.4150 11.7-14.9 SECONDS High PROTIME 28.5 LAB L300.4200 Normal INR 2.7 Performed By: #### L300.3900 #### [facility] [address] [facility] [place], [address] CBC-COMPLETE BLOOD CNT Collected: 01/31/2018 Status: F Source: NAM NO DIFF 6:15 AM [facility] REPOSITORY Order Comment: ROOM 136 TYPE CODE [...] MPV 10.8 Performed By: #### L100.0500 #### [facility] [address] [place], [place], [address] PROTHROMBIN TIME W/INR Collected: 01/23/2018 Status: F Source: [place] 6:10 AM [facility] REPOSITORY Order Comment: ORDERED RENAL,CBC,PTHIN,VITD,PLATELET; ORDERED BMP,CBC,PT TYPE CODE TESTS RESULT OUT OF RANGE REFERENCE UNITS LAB L300.4150 11.7-14.9 SECONDS High PROTIME 34.6 LAB L300.4200 Normal INR 3.4 Performed By: #### L300.3900 #### [facility] [address] [place], [address] CBC-COMPLETE BLOOD CNT Collected: 01/23/2018 Status: F Source: [place] NO DIFF 6:10 AM [facility] REPOSITORY Order Comment: ORDERED RENAL,CBC,PTHIN,VITD,PLATELET; ORDERED BMP,CBC,PT [...] MPV 10.5 Performed By: #### L100.0500 #### [facility] [address] [place], [address] VITAMIN D,25 HYDROXY Collected: 01/23/2018 Status: F Source: NAM 6:10 AM [facility] REPOSITORY Order Comment: ORDERED RENAL,CBC,PTHIN,VITD,PLATELET; ORDERED BMP,CBC,PT [...] (>250 nmol/L) Performed By: #### L506.1000 #### [facility] [address] [facility] [address] [place], [place], [address] RENAL PROFILE Collected: 01/23/2018 Status: F Source: [place] 6:10 AM [facility] REPOSITORY Order Comment: ORDERED RENAL,CBC,PTHIN,VITD,PLATELET; ORDERED BMP,CBC,PT [...] at: 09:28:02 01/23/2018 by: [facility] LAB L501.1100 0.55-1.02 mg/dL CREAT,SERUM [...] CO2 30.0 Performed By: #### L500.3600 #### [facility] [address] [facility] [place], [address] PTHIN Collected: 01/23/2018 Status: F Source: NAM 6:10 AM [facility] REPOSITORY Order Comment: ORDERED RENAL,CBC,PTHIN,VITD,PLATELET; ORDERED BMP,CBC,PT TYPE CODE TESTS RESULT OUT OF RANGE REFERENCE UNITS LAB L509.1000 18.4-80.1 pg/mL High PTHIN 219.0 Performed By: #### L509.1000 #### [facility] [address] [facility] [place], [address] PROTEIN+CREATININE Collected: Status: F Source: NAM RATIO,URINE 01/22/2018 9:00 PM [facility] REPOSITORY TYPE CODE TESTS RESULT OUT OF RANGE REFERENCE UNITS LAB L501.1200 NO RANGE EST. mg/dL Normal UR CREAT 29.60 LAB L501.1930 <11.9 mg/dL High 16.3 PROTEIN,UR.R AN. LAB L501.1940 0-200 mg/g CRE High PROT:CRE 551 RATIO Performed By: #### L501.0900 #### [facility] [address] [place], [address] PROTIME W/INR Collected: 01/19/2018 Status: F Source: [place] 6:43 AM [facility] REPOSITORY TYPE CODE TESTS RESULT OUT OF REFERENCE UNITS RANGE LAB L9200.1001 11.9-14.4 SEC High PROTIME ISTAT 31.5 Result Comment: Reference Range 11.9 - 14.4 LAB L9200.2000 Normal INR ISTAT 2.80 Result Comment: Critical Value > 3.5 Performed By: #### L9200.0000 #### [facility] Point [facility] Care [address] [place] [address] PROGRESS Observed: 01/18/2018 Status: COMPLETED Source: [place] 8:53 AM [facility] REPOSITORY HNO ID: [id number] Author: Rashida Allen Service: (none) Author Type: [...] to patient for Care Coordination. Rashida Allen finishing room operator Physical Security Manager Internal Medicine [facility] CNPTOUTREACH Observed: 01/18/2018 Status: COMPLETED Source: [place] 12:00 AM [facility] REPOSITORY Patient Outreach (INTMWS) ELIZABETH HO ([id number]) 1950 F Date Time Provider Department 01/18/18 [...] for Care Coordination. Rashida Allen RN Ambulatory Physical Security Manager Internal Medicine [facility] Allergies As of Date: 01/18/2018 Noted Allergy Reaction AUGMENTIN (AMOXICILLIN-POT CLAVUL*2013 2 - Rash SULFA (SULFONAMIDE ANTIBIOTICS) 01/10/2005 4 - Hives VANCOMYCIN 08/26/2013 10 - Anaphylaxis Comments: Per pharmacist. Patient tolerating PO Vancomycin. on 01/07 pt in [facility] and had ld syndrome rxn [...] [N25.81] INVALID FOR* CAD (coronary artery disease), [place] coronary *INVALID FOR* Priority: F More... More... [...] (ICD) in*INVALID FOR* More... More... DVT prophylaxis [[id number]] INVALID FOR* More... Thrombocytopenia (HCC) [D69.6] INVALID [...] F Source: NAM NO DIFF 6:00 AM [facility] REPOSITORY TYPE CODE TESTS RESULT OUT [...] MPV 10.8 Performed By: #### L100.0500 #### [facility] [address] [place], [address] COMPREHENSIVE METABOLIC Collected: 01/17/2018 Status: F Source: [facility] 6:00 AM [facility] REPOSITORY Order Comment: 136 TYPE CODE TESTS [...] GAP 11 Performed By: #### L500.4050 #### [facility] [address] [place], [address] Observed: 01/15/2018 Status: F Source: [place] CDIFF (MOLECULAR) 1:45 PM [facility] REPOSITORY Cdiff-Molecular Normal Reference Range = Negative C. Diff DNA Negative- No toxigenic C. Diff DNA Detected NAAT METHOD Testing was performed using nucleic acid amplification Performed By: #### M100.6796 #### [facility] [address] [place], [address] CBC-COMPLETE BLOOD CNT Collected: 01/10/2018 Status: F Source: NAM NO DIFF 7:35 AM [facility] REPOSITORY TYPE CODE TESTS RESULT OUT [...] MPV 10.8 Performed By: #### L100.0500 #### [facility] [address] [place], [place], [address] BASIC METABOLIC Collected: 01/10/2018 Status: F Source: NAM PROFILE (BMP) 7:35 AM [facility] REPOSITORY TYPE CODE TESTS RESULT OUT [...] GAP 12 Performed By: #### L500.2500 #### [facility] [address] [place], [place], [address] CBC-COMPLETE BLOOD CNT Collected: 01/08/2018 Status: F Source: NAM NO DIFF 4:45 AM [facility] REPOSITORY Order Comment: RM:136 TYPE CODE TESTS [...] MPV 10.8 Performed By: #### L100.0500 #### [facility] [address] [place], [address] BASIC METABOLIC Collected: 01/08/2018 Status: F Source: [place] PROFILE (BMP) 4:45 AM [facility] REPOSITORY Order Comment: RM:136 TYPE CODE TESTS [...] GAP 8 Performed By: #### L500.2500 #### [facility] [address] [facility] [place], [address] PROTHROMBIN TIME W/INR Collected: 01/08/2018 Status: F Source: NAM 4:45 AM [facility] REPOSITORY Order Comment: RM:136 TYPE CODE TESTS RESULT OUT OF RANGE REFERENCE UNITS LAB L300.4150 11.7-14.9 SECONDS High PROTIME 22.9 LAB L300.4200 Normal INR 2.0 Performed By: #### L300.3900 #### [facility] [address] [facility] [address] PROTHROMBIN TIME W/INR Collected: 01/04/2018 Status: F Source: [place] 5:35 AM [facility] REPOSITORY Order Comment: ROOM 126 TYPE CODE TESTS RESULT OUT OF RANGE REFERENCE UNITS LAB L300.4150 11.7-14.9 SECONDS High PROTIME 29.2 LAB L300.4200 Normal INR 2.7 Performed By: #### L300.3900 #### [facility] [place], [address] BEDSIDE GLUCOSE Collected: 01/03/2018 Status: F Source: [place] 5:14 PM [facility] REPOSITORY TYPE CODE TESTS RESULT OUT OF REFERENCE UNITS RANGE LAB L501.080 70-110 mg/dL High BEDSIDE GLU 215 Result Comment: MANAGEMENT OF PATIENT CARE PER NURSING PROTOCOL Performed By: #### L501.080 #### [facility] Point of Care [address] [place] [address] DISCHARGE SUMMARY Observed: 01/03/2018 Status: F Source: [place] 4:12 PM [facility] REPOSITORY [facility] Medical Records Department [facility] [place] [place] [address] Discharge Summary 01/03/18 1518 MR#: [id number] Acct: [id number] Name: ELIZABETH HO Rep #: [id number] : 1950 67 From: Cristian ALFARO PCP: Williams Parekh MD Status: ADM JANE Y Location: [place] [id number] Discharge Date and Diagnosis - Problem List [...] emergency room as an outpatient and trialed Wellman and steroids without any relief. She represented to the emergency room as she continued to have worsening of her pain and had more difficulty ambulating. She did not feel safe at home and was concerned that she was going to fall. 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 She desires nursing home placement. She was admitted to the medical surgical floor and started on supportive care including oxycodone, Tylenol, Lidoderm, with the consult pain management. Pain management recommended and injection however she was not interested in doing this because she was concerned about holding her warfarin. She was seen by PT and OT and recommendations were made for nursing home therapy. The patient was agreeable and she [...] M.D.; Williams Parekh MD Signed TRANSFER TO [facility] Observed: 01/03/2018 Status: F Source: [facility] 4:12 PM [facility] REPOSITORY [facility] Medical Records Department [address] [place] [address] Transfer to Extended Care MR#: [id number] Acct: [id number] Name: ELIZABETH HO Rep #: [id number] : 1950 67 From: Cristian ALFARO PCP: Williams Parekh MD Status: ADM JANE ELIZABETH HO (Patient) (Health Ins. Claim No.) (Day of Discharge to Facility) Certification of patient admission REQUIRED AT TIME OF ADMISSION. I CERTIFY THAT POST-HOSPITAL ECF SERVICES ARE REQUIRED TO BE GIVEN ON AN IN-PATIENT BASIS BECAUSE OF THE ABOVE NAMED PATIENT'S NEED FOR GROUP HOME CARE ON A CONTINUING BASIS FOR THE [...] 01/03/2018 Status: F Source: NAM 11:50 AM [facility] REPOSITORY TYPE CODE TESTS RESULT OUT OF REFERENCE UNITS RANGE LAB L501.080 70-110 mg/dL High BEDSIDE GLU 185 Result Comment: MANAGEMENT OF PATIENT CARE PER NURSING PROTOCOL Performed By: #### L501.080 #### [facility] Point of Care [address] [place] [address] BEDSIDE GLUCOSE Collected: 01/03/2018 Status: F Source: NAM 7:47 AM [facility] REPOSITORY TYPE CODE TESTS RESULT OUT OF RANGE REFERENCE UNITS LAB L501.080 70-110 mg/dL Normal BEDSIDE GLU 102 Result Comment: MANAGEMENT OF PATIENT CARE PER NURSING PROTOCOL Performed By: #### L501.080 #### [facility] Point of Care [address] [place] [address] BASIC METABOLIC Collected: 01/03/2018 Status: F Source: NAM PROFILE (BMP) 5:52 AM [facility] REPOSITORY TYPE CODE TESTS RESULT OUT [...] GAP 8 Performed By: #### L500.2500 #### [facility] [address] [place], [address] PROTHROMBIN TIME W/INR Collected: 01/03/2018 Status: F Source: [place] 5:52 AM [facility] REPOSITORY TYPE CODE TESTS RESULT OUT OF REFERENCE UNITS RANGE LAB L300.4150 11.7-14.9 SECONDS High PROTIME 35.2 LAB L300.4200 High alert INR 3.5 Result Comment: CRITICAL VALUE VERIFIED. CALLED TO TIMRN MS3 01/03/18 0631 Ilsa Stanford. RESULTS READ BACK BY SAME . Performed By: #### L300.3900 #### [facility] [address] [place], [address] CBC W/DIFF, AUTOMATED Collected: 01/03/2018 Status: C Source: [place] 5:52 AM [facility] REPOSITORY TYPE CODE TESTS RESULT OUT [...] August dina Performed By: #### L100.0100 #### [facility] [address] [place], [address] BEDSIDE GLUCOSE Collected: 01/02/2018 Status: F Source: NAM 9:39 PM [facility] REPOSITORY TYPE CODE TESTS RESULT OUT OF RANGE REFERENCE UNITS LAB L501.080 70-110 mg/dL Normal BEDSIDE GLU 109 Result Comment: MANAGEMENT OF PATIENT CARE PER NURSING PROTOCOL Performed By: #### L501.080 #### [facility] Point of Care [address] [place] [address] BEDSIDE GLUCOSE Collected: 01/02/2018 Status: F Source: NAM 5:42 PM [facility] REPOSITORY TYPE CODE TESTS RESULT OUT OF RANGE REFERENCE UNITS LAB L501.080 70-110 mg/dL Normal BEDSIDE GLU 95 Result Comment: MANAGEMENT OF PATIENT CARE PER NURSING PROTOCOL Performed By: #### L501.080 #### [facility] Point of Care [address] [place] [address] BEDSIDE GLUCOSE Collected: 01/02/2018 Status: F Source: NAM 5:15 PM [facility] REPOSITORY TYPE CODE TESTS RESULT OUT OF REFERENCE UNITS RANGE LAB L501.080 70-110 mg/dL Low BEDSIDE GLU 49 Result Comment: MANAGEMENT OF PATIENT CARE PER NURSING PROTOCOL Performed By: #### L501.080 #### [facility] Point of Care [address] [place] [place] [address] BEDSIDE GLUCOSE Collected: 01/02/2018 Status: F Source: NAM 11:37 AM [facility] REPOSITORY TYPE CODE TESTS RESULT OUT OF REFERENCE UNITS RANGE LAB L501.080 70-110 mg/dL High BEDSIDE GLU 160 Result Comment: MANAGEMENT OF PATIENT CARE PER NURSING PROTOCOL Performed By: #### L501.080 #### [facility] Point of Care [address] [place] [place] [address] BEDSIDE GLUCOSE Collected: 01/02/2018 Status: F Source: NAM 7:44 AM [facility] REPOSITORY TYPE CODE TESTS RESULT OUT OF REFERENCE UNITS RANGE LAB L501.080 70-110 mg/dL High BEDSIDE GLU 128 Result Comment: MANAGEMENT OF PATIENT CARE PER NURSING PROTOCOL Performed By: #### L501.080 #### [facility] Point of Care [address] [place] [place] [address] CBC W/DIFF, AUTOMATED Collected: 01/02/2018 Status: C Source: [place]AM 5:34 AM [facility] REPOSITORY TYPE CODE TESTS RESULT OUT [...] August dina Performed By: #### L100.0100 #### [facility] [address] [place], [place], [address] BASIC METABOLIC Collected: 01/02/2018 Status: F Source: [place] PROFILE ([facility]) 5:34 AM [facility] REPOSITORY TYPE CODE TESTS RESULT OUT [...] GAP 10 Performed By: #### L500.2500 #### [facility] [address] [place], [address] PROTHROMBIN TIME W/INR Collected: 01/02/2018 Status: F Source: [place] 5:34 AM [facility] REPOSITORY TYPE CODE TESTS RESULT OUT OF REFERENCE UNITS RANGE LAB L300.4150 11.7-14.9 SECONDS High PROTIME 38.1 LAB L300.4200 High alert INR 3.8 Result Comment: CRITICAL VALUE VERIFIED. CALLED TO TIMRN MS3 01/02/18 0614 Ilsa Stanford. RESULTS READ BACK BY SAME . Performed By: #### L300.3900 #### [facility] [address] [place], [place], [address] CRP Collected: 01/02/2018 Status: F Source: [place] 5:34 AM [facility] REPOSITORY TYPE CODE TESTS RESULT OUT OF RANGE REFERENCE UNITS LAB L501.6710 0.0-3.0 mg/L High 26.20 C-REACTIVE PROT Result Comment: C-Reactive Protein (CRP) provides useful information for the diagnosis, therapy and monitoring of inflammatory processes and associated diseases. For the evaluation of Relative Risk for Cardiovascular Disease, a High Sensitivity CRP (HSCRP) should be ordered. Performed By: #### L501.6710 #### [facility] [address] [place], [place], [address] CPK TOTAL, CREATINE Collected: 01/02/2018 Status: F Source: [place]AM KINASE 5:34 AM [facility] REPOSITORY TYPE CODE TESTS RESULT OUT OF RANGE REFERENCE UNITS LAB L501.3620 26-192 U/L Normal CPK TOTAL 159 Performed By: #### L501.3620 #### [facility] [address] [place], [address] ERYTHROCYTE SED RATE Collected: 01/02/2018 Status: F Source: NAM 5:34 AM [facility] REPOSITORY TYPE CODE TESTS RESULT OUT OF RANGE REFERENCE UNITS LAB L102.0000 0-30 mm/hr High SED RATE 39 Performed By: #### L101.9900 #### [facility] [address] [place], [address] IRON+IRON BINDING Collected: 01/02/2018 Status: F Source: NAM CAPACITY 5:34 AM [facility] REPOSITORY Order Comment: Comments: ok to add on Comments: ok to add on TYPE CODE TESTS RESULT OUT OF RANGE REFERENCE UNITS LAB L503.6075 250-450 ug/dL TIBC Normal 360 LAB L503.6150 50-170 ug/dL IRON Normal 56 LAB L503.6250 15.0-55.0 % IRON Normal SATURATION 15.6 Performed By: #### L503.6030, L503.6550 #### [facility] [address] [place], [address] FERRITIN Collected: 01/02/2018 Status: F Source: [place]AM 5:34 AM [facility] REPOSITORY Order Comment: Comments: ok to add on Comments: ok to add on TYPE CODE TESTS RESULT OUT OF RANGE REFERENCE UNITS LAB L503.6550 8-252 ng/mL Normal FERRITIN 69 Performed By: #### L503.6030, L503.6550 #### [facility] [address] [place], [address] EMERGENCY DEPARTMENT Observed: 01/01/2018 Status: F Source: NAM SUMMARY 10:58 PM [facility] REPOSITORY [facility] Medical Records Department [address] [facility] [place] [address] Emergency Department Summary 01/01/18 1514 MR#: [id number] Acct: [id number] Name: ELIZABETH HO Rep #: [id number] : 1950 67 From: Brian Frey MD [...] the hospital overnight for precertification for a chcf. She was discussed with Dr. Mendez. Disposition: Admitted in stable condition. Impression: 1. Right hip pain, acute. 2. Coumadin coagulopathy. This note was generated with MaxTrade[employer].comation software. It may contain incorrect words, spelling, [...] your Primary Care Provider. Call [facility] ([phone]) or report to the closest Emergency Room. Call 911 if necessary. 01/01/18 2258 <Electronically signed by Brian Frey MD> Date Brian Frey MD Cosigner Signature (If Indicated): Date CC: Williams Parekh MD BEDSIDE GLUCOSE Collected: 01/01/2018 Status: F Source: NAM 10:05 PM [facility] REPOSITORY TYPE CODE TESTS RESULT OUT OF REFERENCE UNITS RANGE LAB L501.080 70-110 mg/dL High BEDSIDE GLU 227 Result Comment: MANAGEMENT OF PATIENT CARE PER NURSING PROTOCOL Performed By: #### L501.080 #### [facility] Point of Care [facility] [place] [address] BASIC METABOLIC Collected: 01/01/2018 Status: F Source: NAM PROFILE (BMP) 8:17 PM [facility] REPOSITORY TYPE CODE TESTS RESULT OUT [...] GAP 4 Performed By: #### L500.2500 #### [facility] [place], [address] CBC W/DIFF, AUTOMATED Collected: 01/01/2018 Status: F Source: NAM 8:17 PM [facility] REPOSITORY TYPE CODE TESTS RESULT OUT [...] LYMPHOPENIA NOTED Performed By: #### L100.0100 #### [facility] [address] [facility] [place], [place], [address] PROTHROMBIN TIME W/INR Collected: 01/01/2018 Status: F Source: [place] 8:17 PM [facility] REPOSITORY TYPE CODE TESTS RESULT OUT OF REFERENCE UNITS RANGE LAB L300.4150 11.7-14.9 SECONDS High PROTIME 37.7 LAB L300.4200 High alert INR 3.8 Result Comment: CRITICAL VALUE VERIFIED. CALLED TO DCLARK 01/01/18 Lena Faria. RESULTS READ BACK BY SAME . Performed By: #### L300.3900 #### [facility] [address] [place], [place], [address] MAGNESIUM Collected: 01/01/2018 Status: F Source: [place] 8:17 PM [facility] REPOSITORY TYPE CODE TESTS RESULT OUT OF RANGE REFERENCE UNITS LAB L501.5200 1.6-2.6 mg/dL High MG 2.8 Performed By: #### L501.5200 #### [facility] [address] [place], [address] HISTORY AND PHYSICAL Observed: 01/01/2018 Status: F Source: [place] EXAM 6:28 PM [facility] REPOSITORY [facility] Medical Records Department [address] [place] [address] History and Physical 01/01/18 1751 MR#: [id number] Acct: [id number] Name: ELIZABETH HO Rep #: [id number] : 1950 67 From: Cristian ALFARO PCP: Williams Parekh MD Status: ADM JANE Y Location: [place] [address] ADDENDUM by Loren Mendez on 01/01/18 at [...] LE Lymphedema/PVD, Obesity who presents to the [facility] ED on 01/01/18 with history [...] LE Lymphedema/PVD, Obesity who presents to the [facility] ED on 01/01/18 with history [...] that living will and HCPOA in place (attorney at law). Advanced Care Planning Face to Face Time: 17 minutes. OBSV E AND M: 18616 Initial observation care L3 Procedures: 42938 Advncd Care Plan 30 Min 01/01/18 5671 <Electronically signed by Loren Mendez > Date [...] she then later went to see her CHEMICAL UNIT OPERATOR, who placed her on steroids and [...] fistula Psychiatric History: No pertinent psych hx LAW TUTOR History: No pertinent LAW TUTOR history Smoking Status: Never smoker - *Family [...] IV - prior dialysis now off. Follows [place] [facility]. NO NSAIDS. 6. T2DM - continue [...] 2 VIEWS Observed: 01/01/2018 Status: F Source: [place] 3:13 PM [facility] REPOSITORY [facility] Imaging Services [address] [place] [address] Femur Min 2 Views MR#: [id number] Acct: [id number] Name: ELIZABETH HO Rep #: [id number] : 1950 F 67 From: Sriram Vila MD PCP: Williams Parekh MD Status: REG ER Study: Femur Min 2 Views Date of Exam: 01/01/18 Exam# [id number] Ordering Dr: Brian Frye MD STUDY: X-RAY - RIGHT FEMUR REASON [...] CC: Williams Parekh MD; Brian Frey MD Tester Operator Helper: Signed EXTREMITY LOWER Observed: 01/01/2018 Status: F Source: [place] WITHOUT CONTRA 3:13 PM [facility] REPOSITORY [facility] Imaging Services [address] [place] [address] Extremity Lower without Contra MR#: [id number] Acct: [id number] Name: ELIZABETH HO Rep #: [id number] : 1950 F 67 From: Niesha Lopez MD PCP: Williams Parekh MD Status: REG ER Study: Extremity Lower without Contra Date of Exam: 01/01/18 Exam# [id number] Ordering Dr: Brian Frey MD STUDY: CT [...] CC: Williams Parekh MD; Brian Frey MD Tester Operator Helper: Signed PROGRESS Observed: 12/29/2017 Status: COMPLETED Source: [place] 3:24 PM [facility] REPOSITORY O ID: [id number] Author: Maria Esther Campbell LPN Service: (none) Author Type: (none) Type: Progress Notes Filed: 12/29/2017 3:38 PM Note Text: 67 year old female here for INACTIVATED INFLUENZA VACCINE. 4704-0117 Season Patient is identified by name and date of : Yes [] CONTRAINDICATIONS color enhanced section Age less than 6 months? No Allergy to eggs, chicken, chicken feathers, or chicken dander? No Allergy to thimerosal (a preservative) or formaldehyde? No History of severe reaction to any vaccine component or a previous dose of influenza vaccination? 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 Yes See immunization activity in [facility] for details of immunizations adminstered today. [...] dose of influenza vaccination? 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 Yes See immunization activity in [facility] for details of immunizations adminstered today. Patient age: [age] year old For The 3996-6118 Flu Season 6-35 months old: Fluzone 0.25 [...] time. PROGRESS Observed: 12/29/2017 Status: COMPLETED Source: [place] 3:00 PM [facility] REPOSITORY O ID: [id number] Author: Ema Curry (Cns) Service: (none) Author [...] Kidney Disease) Stage 4, Gfr 15-29 Ml/Min ([facility]) Varicose Veins of Lower Extremities With Ulcer ([facility]) Vitamin D Deficiency Secondary Hyperparathyroidism ([facility]) Cad (Coronary Artery Disease), [place] Coronary Artery Aortic Stenosis Mitral Stenosis On Home O2 Pvd (Peripheral Vascular Disease) ([facility]) Anemia Urinary Incontinence Implantable Cardioverter-Defibrillator (Icd) in Situ Dvt Prophylaxis Constipation Chf (Congestive Heart Failure), Ny[place] Class Iii (Hcc) Gout, Arthritis 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 She was seen in [facility] yesterday for this pain. Pain was [...] 05/15/2013 - Cellulitis of left leg 01/29/2010 [facility] ER 01/27/10 transferred to [facility] Dx: sepsis, afib, elevated INR - [...] on hemodialysis ([facility]) Dr. Luo ([place]) - Failure to extubation 08/26/2013 Patient was [...] write COPAT. David placed. Will go to [facility] on Monday. - [place] (HCC) [...] and schedule follow up with endo at [place] - UTI (lower urinary tract infection) DIRECTOR AUTOMOTIVE not caused by insertion of quiroz 07/09/2013 07/08/2013 Urine culture suggests UTI s/p tx with Augmentin - Readmitted 07/21/2013UA/Urine culture checked on admission to the floor- UA negative-> urine culture >100,000 lactose positive gram - bacilli. This was not quiroz induced this was DIRECTOR AUTOMOTIVE. Will discuss with ID - monitor for [...] tolerating PO Vancomycin. on 01/07 pt in [facility] and had ld syndrome rxn [...] (H) 4.3 - 5.6 % Final Comment: [place] [employer] guidelines indicate that patients with HgbA1c in the range 5.7-6.4% are at increased risk for development of diabetes, and intervention by lifestyle modification may be beneficial. HgbA1c greater or equal to 6.5% is considered diagnostic of diabetes. 09/03/2015 7.0 (H) 4.3 - 5.6 % Final Comment: [place] [employer] guidelines indicate that patients with HgbA1c in the range 5.7-6.4% are at increased risk for development of diabetes, and intervention by lifestyle modification may be beneficial. HgbA1c greater or equal to 6.5% is considered diagnostic of diabetes. 07/23/2015 6.2 (H) 4.3 - 5.6 % Final Comment: [place] [employer] guidelines indicate that patients with HgbA1c in the range 5.7-6.4% are at increased risk for development of diabetes, and intervention by lifestyle modification may be beneficial. HgbA1c greater or equal to 6.5% is considered diagnostic of diabetes. 04/08/2015 6.5 (H) 4.3 - 5.6 % Final Comment: [place] [employer] guidelines indicate that patients with [...] right hip pain. ER follow up 12/28/2017 [facility]. After my examination and review [...] APRN.CNS CNOV Observed: 12/29/2017 Status: COMPLETED Source: [place] 3:00 PM [facility] REPOSITORY Office Visit (INTMWS) PAPAELIZABETH ([id number]) 1950 F Date Time Provider Department 12/29/17 3:00 PM EMA CURRY (DIRECTOR OF ACCOUNTING) INTMWS During your visit today, we recorded [...] Kidney Disease) Stage 4, Gfr 15-29 Ml/Min ([facility]) Varicose Veins of Lower Extremities With Ulcer ([facility]) Vitamin D Deficiency Secondary Hyperparathyroidism ([facility]) Cad (Coronary Artery Disease), [place] Coronary Artery Aortic Stenosis Mitral Stenosis On Home O2 Pvd (Peripheral Vascular Disease) ([facility]) Anemia Urinary Incontinence Implantable Cardioverter-Defibrillator (Icd) in Situ Dvt Prophylaxis Constipation Chf (Congestive Heart Failure), Nyha Class Iii ([facility]) Gout, Arthritis 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 She was seen in [facility] yesterday for this pain. Pain was [...] 05/15/2013 - Cellulitis of left leg 01/29/2010 [facility] ER 01/27/10 transferred to [facility] Dx: sepsis, afib, elevated INR - [...] on hemodialysis ([facility]) Dr. Luo ([place]) - Failure to extubation 08/26/2013 Patient was [...] write COPAT. David placed. Will go to [facility] on Monday. - [place] (HCC) [...] and schedule follow up with endo at [place] - UTI (lower urinary tract infection) DIRECTOR AUTOMOTIVE not caused by insertion of quiroz 07/09/2013 07/08/2013 Urine culture suggests UTI s/p tx with Augmentin - Readmitted 07/21/2013UA/Urine culture checked on admission to the floor- UA negative-> urine culture >100,000 lactose positive gram - bacilli. This was not quiroz induced this was DIRECTOR AUTOMOTIVE. Will discuss with ID - monitor for [...] tolerating PO Vancomycin. on 01/07 pt in [facility] and had ld syndrome rxn to [facility]. MEDICATIONS traMADol (ULTRAM) 50 mg tablet Take 50 mg by mouth every 6 hours as needed. metOLAzone (ZAROXOLYN) 5 mg tablet Take 5mg Monday, Monday and Monday nystatin (MYCOSTATIN) powder Apply 1 application to affected area three times daily. blood sugar diagnostic ([employer] ULTRA [employer]) test strip before meals and [...] (H) 4.3 - 5.6 % Final Comment: [place] [employer] guidelines indicate that patients with HgbA1c in the range 5.7-6.4% are at increased risk for development of diabetes, and intervention by lifestyle modification may be beneficial. HgbA1c greater or equal to 6.5% is considered diagnostic of diabetes. 09/03/2015 7.0 (H) 4.3 - 5.6 % Final Comment: [place] [employer] guidelines indicate that patients with HgbA1c in the range 5.7-6.4% are at increased risk for development of diabetes, and intervention by lifestyle modification may be beneficial. HgbA1c greater or equal to 6.5% is considered diagnostic of diabetes. 07/23/2015 6.2 (H) 4.3 - 5.6 % Final Comment: [place] [employer] guidelines indicate that patients with HgbA1c in the range 5.7-6.4% are at increased risk for development of diabetes, and intervention by lifestyle modification may be beneficial. HgbA1c greater or equal to 6.5% is considered diagnostic of diabetes. 04/08/2015 6.5 (H) 4.3 - 5.6 % Final Comment: [place] [employer] guidelines indicate that patients with [...] right hip pain. ER follow up 12/28/2017 [facility]. After my examination and review [...] and agreed with the plan. Ema Curry APRN.DIRECTOR OF ACCOUNTING Ema Curry APRN.RICHI 12/29/2017 3:20 PM Signed [...] old female here for INACTIVATED INFLUENZA VACCINE. 6187-3360 Season Patient is identified by name and date of : Yes [] CONTRAINDICATIONS color enhanced section Age less than 6 months? No Allergy to eggs, chicken, chicken feathers, or chicken dander? No Allergy to thimerosal (a preservative) or formaldehyde? No History of severe reaction to any vaccine component or a previous dose of influenza vaccination? 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 Yes See immunization activity in [facility] for details of immunizations adminstered today. [...] dose of influenza vaccination? 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 Yes See immunization activity in [facility] for details of immunizations adminstered today. Patient age: [age] year old For The 9621-7764 Flu Season 6-35 months old: Fluzone 0.25 [...] tolerating PO Vancomycin. on 01/07 pt in [facility] and had ld syndrome rxn [...] aortic valve replacement) [Z95.2] Order(s):CONSULT TO ORTHOPAEDICS [9059] Order #: [id number]: 1 predniSONE (DELTASONE) 10 mg tabletTake 1 [...] 0 INFLUENZA SEASONAL HIGH DOSE AGE 65+ [[id number]] Order #: [id number] Prescriptions as of 12/29/2017 Sig: TRAMADOL 50 [...] [N25.81] INVALID FOR* CAD (coronary artery disease), [place] coronary *INVALID FOR* Priority: F More... More... [...] (ICD) in*INVALID FOR* More... More... DVT prophylaxis [UDA3498] INVALID FOR* More... Thrombocytopenia (HCC) [D69.6] INVALID [...] EMERGENCY DEPARTMENT Observed: 12/28/2017 Status: F Source: [place] SUMMARY 3:56 PM [facility] REPOSITORY [facility] Medical Records Department [address] [place] [address] Emergency Department Summary 12/28/17 0932 MR#: [id number] Acct: [id number] Name: ELIZABETH HO Rep #: [id number] : 1950 67 From: Matt Sweet MD [...] hip pain This note was generated with [employer] dictation software. It may contain incorrect words, [...] your Primary Care Provider. Call [facility] ([phone]) or report to the closest Emergency Room. Call 911 if necessary. 12/28/17 4495 <Electronically signed by Matt Sweet MD> Date Matt Sweet MD Cosigner Signature (If Indicated): Date CC: Williams Parekh MD BASIC METABOLIC Collected: 12/28/2017 Status: F Source: NAM PROFILE ([facility]) 9:35 AM [facility] REPOSITORY TYPE CODE TESTS RESULT OUT [...] GAP 8 Performed By: #### L500.2500 #### [facility] [address] [place], [place], [id number] CBC W/DIFF, AUTOMATED Collected: 12/28/2017 Status: F Source: NAM 9:35 AM [facility] REPOSITORY TYPE CODE TESTS RESULT OUT [...] Lymph 1.28 Performed By: #### L100.0100 #### [facility] [address] [place], [place], [address] PROTHROMBIN TIME W/INR Collected: 12/28/2017 Status: F Source: [place] 9:35 AM [facility] REPOSITORY TYPE CODE TESTS RESULT OUT OF RANGE REFERENCE UNITS LAB L300.4150 11.7-14.9 SECONDS High PROTIME 25.4 LAB L300.4200 Normal INR 2.3 Performed By: #### L300.3900 #### [facility] [address] [place], [address] HIP, UNI W/ PELVIS Observed: 12/28/2017 Status: F Source: NAM 2-3 VIEWS 9:30 AM [facility] REPOSITORY [facility] Imaging Services [address] [place] [address] HIP, UNI W/ Pelvis 2-3 Views MR#: [id number] Acct: [id number] Name: ELIZABETH HO Rep #: [id number] : 1950 F 67 From: Asif Teresa MD PCP: Williams Parekh MD Status: REG ER Study: HIP, UNI W/ Pelvis 2-3 Views Date of Exam: 12/28/17 Exam# [id number] Ordering Dr: Matt Sweet MD STUDY: X-RAY [...] Asif Teresa MD at 10:35 EDT Tel [phone], Service support , CC: Williams Parekh MD; Matt Sweet MD Tester Operator Helper: Signed PACEMAKER CHECK Observed: 12/26/2017 Status: F Source: NAM 5:30 PM [facility] REPOSITORY [facility] [address] [place] [address] Pacemaker Check Date of Service: 12/26/171641 MR#: [id number] Acct: [id number] Name: ELIZABETH HO Rep #: [id number] : 1950 From: Lela Bullock Age/Sex: 67/F [place] [facility] [place]: Signed Billing Codes ICD Device Billing: ICD Dev Prog Eval, Dual 12/26/171643 <Electronically signed by Lela Bullock > Date Lela Bullock 12/26/171729<Electronically signed by Michael See MD> Cosigner Signature: Date (if applicable) Michael See MD CC: PROTHROMBIN TIME W/INR Collected: 12/22/2017 Status: F Source: NAM 10:06 AM [facility] REPOSITORY TYPE CODE TESTS RESULT OUT OF RANGE REFERENCE UNITS LAB L300.4150 11.7-14.9 SECONDS High PROTIME 28.7 LAB L300.4200 Normal INR 2.7 Performed By: #### L300.3900 #### [facility] [address] [place], [address] BASIC METABOLIC Collected: 12/22/2017 Status: F Source: NAM PROFILE (BMP) 10:06 AM [facility] REPOSITORY TYPE CODE TESTS RESULT OUT [...] GAP 8 Performed By: #### L500.2500 #### [facility] [address] [place], [address] PROTHROMBIN TIME W/INR Collected: 12/04/2017 Status: F Source: NAM 8:37 AM [facility] REPOSITORY TYPE CODE TESTS RESULT OUT OF RANGE REFERENCE UNITS LAB L300.4150 11.7-14.9 SECONDS High PROTIME 26.0 LAB L300.4200 Normal INR 2.4 Performed By: #### L300.3900 #### [facility] [address] [place], [address] BASIC METABOLIC Collected: 12/04/2017 Status: F Source: NAM PROFILE (BMP) 8:36 AM [facility] REPOSITORY Order Comment: Comments: With next PT/INR [...] GAP 7 Performed By: #### L500.2500 #### [facility] [address] [place], [address] CARDIOLOGY VISIT Observed: 11/20/2017 Status: F Source: [place] REPORT 1:54 PM [facility] REPOSITORY [facility] [address] [place] [address] OFFICE VISIT Date of Service: 11/20/17 MR#: [id number] Acct: [id number] Name: ELIZABETH HO Rep #: [id number] : 1950 Provider: Michael See MD Age/Sex: 67/F [place] [facility] [place] Status: Signed HPI HPI Details: ELIZABETH HO, is a 67 F who presents to the office today for outpatient cardiovascular follow-up. As you know she was hospitalized at [facility] in August of this year [...] .COMPLEX #60 tab 10/30/17 [Rx Confirmed 11/20/17] [facility] Medical History Aortic stenosis (Chronic) Paroxysmal [...] She did have a transthoracic echocardiogram performed [facility] on 07/10/2017. The results are as noted [...] have a diagnostic cardiac catheterization performed at [facility] on 03/04/2014. Per their report the left main coronary artery was normal, the LAD had diffuse mild luminal irregularities, the LCx was a large dominant vessel with 30- 40% stenosis, the RCA was a small nondominant vessel with minimal diffuse irregularities She does have an ICD in place. This is a [employer]ner[employer] IS-1/DF-1/ model #[id number] serial #[id number] dual-chamber ICD implanted on 08/14/2014 Assessment AND Plan 1. S/p TAVR (transcatheter aortic valve replacement), bioprosthetic Z95.3 26 mm Bond Sapein Bioprosthetic Aortic Valve Plan The patient does have a history of previous TAVR. She continues to follow locally and at the [facility]. Based upon a letter from her set rider at the [facility] from 09/03/2015 it was recommended that she continue medical management and follow- up. He did not recommend any additional diagnostic studies at that time. The patient states she was asked to have a transthoracic echocardiogram prior to her next [facility] visit which would occur in August [...] in the past by electrophysiology both in [facility] as well as at [facility]. She does have an underlying ICD [...] PROTIME W/INR Collected: 11/20/2017 Status: F Source: [place] 12:34 PM [facility] REPOSITORY TYPE CODE TESTS RESULT OUT OF REFERENCE UNITS RANGE LAB L9200.1001 11.9-14.4 SEC High PROTIME ISTAT 21.8 Result Comment: Reference Range 11.9 - 14.4 LAB L9200.2000 Normal INR ISTAT 1.90 Result Comment: Critical Value > 3.5 Performed By: #### L9200.0000 #### [facility] Point of Care [address] [place], [place] [address] [place] [address] EMERGENCY DEPARTMENT Observed: 11/14/2017 Status: F Source: [place] SUMMARY 3:40 PM [facility] REPOSITORY [facility] Medical Records Department [address] [place] [address] Emergency Department Summary 11/14/17 1245 MR#: [id number] Acct: [id number] Name: ELIZABETH HO Rep #: [id number] : 1950 67 From: Vinay Valerio MD PCP: Williams Parekh MD Status: DEP ER - ER Visit Summary Date of Service: 11/14/17 Chief Complaint: Constipation History of Present Illness: The patient is a 67 F with no bowel movement for 2 days. The patient feels rectal discomfort like she needs to have a bowel movement, but is unable. She tried cmre-ljo-sfxdgov remedies with no success. She has not tried an enema. Physical Examination: Kid Club Attendant exam showed a fecal impaction. Abdomen soft and nontender. Skin appears normal. No other pertinent findings. Test Results: None indicated Emergency Department Course and Treatment: Solange RN operations research group manager the exam. The patient had a digital disimpaction. She tolerated this with some discomfort but otherwise well. No bleeding or complications. Patient feels better afterwards and will be discharged. Treatment Plan: Continue mdez-rxn-ovyzcnc remedies at home. Stay hydrated. Increase fiber intake. Disposition: Discharged Impression: 1. Fecal impaction This note was generated with [employer]ia dictation software. It may contain incorrect words, [...] your Primary Care Provider. Call [facility] ([phone]) or report to the closest Emergency Room. Call 911 if necessary. 11/14/17 1540 <Electronically signed by Vinay Valerio MD> Date Vinay Valerio MD Cosigner Signature (If Indicated): Date CC: Williams Parekh MD DISCHARGE INSTRUCTION Observed: 11/14/2017 Status: F Source: NAM 3:40 PM [facility] REPOSITORY [facility] Medical Records Department [address] [place] [address] Discharge Instruction 11/14/17 1248 MR#: [id number] Acct: [id number] Name: ELIZABETH HO Rep #: [id number] : 1950 67 From: Vinay Valerio MD [...] your Primary Care Provider. Call [facility] ([phone]) or report to the closest Emergency Room. Call 911 if necessary. 11/14/17 1540 <Electronically signed by Vinay Valerio MD> Date Vinay Valerio MD Cosigner Signature (If Indicated): Date CC: Williams Parekh MD PROTHROMBIN TIME W/INR Collected: 11/09/2017 Status: F Source: NAM 11:20 AM [facility] REPOSITORY TYPE CODE TESTS RESULT OUT OF RANGE REFERENCE UNITS LAB L300.4150 11.7-14.9 SECONDS High PROTIME 31.6 LAB L300.4200 Normal INR 3.0 Performed By: #### L300.3900 #### [facility] [place], [address] PROTIME W/INR Collected: 11/03/2017 Status: F Source: [place]AM [place] 10:34 AM [facility] REPOSITORY TYPE CODE TESTS RESULT OUT OF REFERENCE UNITS RANGE LAB L9200.1001 11.9-14.4 SEC High PROTIME ISTAT 35.9 Result Comment: Reference Range 11.9 - 14.4 LAB L9200.2000 Normal INR ISTAT 3.20 Result Comment: Critical Value > 3.5 Performed By: #### L9200.0000 #### [facility] Point of Care [address] [place] [address] PROTIME W/INR Collected: 10/30/2017 Status: F Source: [place]AM [place] 11:55 AM [facility] REPOSITORY TYPE CODE TESTS RESULT OUT OF REFERENCE UNITS RANGE LAB L9200.1001 11.9-14.4 SEC High PROTIME ISTAT 42.6 Result Comment: Reference Range 11.9 - 14.4 LAB L9200.2000 High alert INR ISTAT 3.80 Result Comment: Critical Value > 3.5 Performed By: #### L9200.0000 #### [facility] Point of Care [address] [place] [address] PROTHROMBIN TIME W/INR Collected: 10/30/2017 Status: F Source: NAM 11:55 AM [facility] REPOSITORY Order Comment: Result obtained is for confirmation testing of Fingerstick PT/INR Specimen # [id number] . 10/30/17 1204 RHESS THIS CONFIRMATION SPECIMEN RESULT IS FROM VENOUS BLOOD. TYPE CODE TESTS RESULT OUT OF REFERENCE UNITS RANGE LAB L300.4150 11.7-14.9 SECONDS High PROTIME 39.8 LAB L300.4200 High alert INR 4.1 Result Comment: CRITICAL VALUE VERIFIED. CALLED TO ANJELICA AT 'S OFFICE. 10/30/17 1245 Rjei Taylor. RESULTS READ BACK BY SAME. Performed By: #### L300.3900 #### [facility] [place], [address] PROTIME W/INR Collected: 10/23/2017 Status: F Source: [place]AM [place] 7:55 AM [facility] REPOSITORY TYPE CODE TESTS RESULT OUT OF REFERENCE UNITS RANGE LAB L9200.1001 11.9-14.4 SEC High PROTIME ISTAT 38.9 Result Comment: Reference Range 11.9 - 14.4 LAB L9200.2000 Normal INR ISTAT 3.40 Result Comment: Critical Value > 3.5 Performed By: #### L9200.0000 #### [facility] Point of Care [address] [place] [place] [address] OFFICE VISIT REPORT Observed: 10/17/2017 Status: F Source: NAM 8:08 AM [facility] [address] [place] [address] OFFICE VISIT Date of Service: 10/16/17 MR#: [id number] Acct: [id number] Patient: ELIZABETH HO Rep #: [id number] : 1950 Provider: LEXI Jenkins Age/Sex: 67/F [place] [facility] [place] Status: Signed Intake Intake Visit Reasons: check [...] Status: F Source: [place]AM [place] 9:50 AM [facility] REPOSITORY TYPE CODE TESTS RESULT OUT OF REFERENCE UNITS RANGE LAB L9200.1001 11.9-14.4 SEC High PROTIME ISTAT 20.1 Result Comment: Reference Range 11.9 - 14.4 LAB L9200.2000 Normal INR ISTAT 1.70 Result Comment: Critical Value > 3.5 Performed By: #### L9200.0000 #### [facility] Point of Care [address] [place] [address] OFFICE VISIT REPORT Observed: 10/11/2017 Status: F Source: NAM 3:[address] [facility] [place] [address] OFFICE VISIT Date of Service: MR#: [id number] Acct: [id number] Patient: ELIZABETH HO Rep #: [id number] : 1950 Provider: Yani Rick Age/Sex: 67/F Location[place] [facility] [place] Status: Signed Intake Intake Visit Reasons: Amb [...] Status: F Source: [place]AM [place] 7:51 AM [facility] REPOSITORY TYPE CODE TESTS RESULT OUT OF REFERENCE UNITS RANGE LAB L9200.1001 11.9-14.4 SEC High PROTIME ISTAT 31.1 Result Comment: Reference Range 11.9 - 14.4 LAB L9200.2000 Normal INR ISTAT 2.70 Result Comment: Critical Value > 3.5 Performed By: #### L9200.0000 #### [facility] Point of Care [address] [place] [address] FREE T4 Collected: 10/03/2017 Status: F Source: [place] 2:12 PM [facility] REPOSITORY TYPE CODE TESTS RESULT OUT OF RANGE REFERENCE UNITS LAB FT4 0.9-1.7 ng/dL Free T4 1.6 Performed By: #### FT4, CMP, RF, TSH, HBA1C #### [facility] [address] [place], [place] [address] COMP METABOLIC PANEL Collected: 10/03/2017 Status: F Source: [place] 2:12 PM [facility] REPOSITORY TYPE CODE TESTS RESULT OUT OF REFERENCE UNITS RANGE LAB TP 6.3-8.0 g/dL Protein, Total 6.8 LAB ALB 3.9-4.9 g/dL Low Albumin 3.8 LAB CA 8.5-10.2 mg/dL Calcium, Total 9.3 LAB TBIL 0.2-1.3 mg/dL Bilirubin, Total 0.6 LAB ALKP 32-117 U/L Alkaline Phosphatase 54 LAB AST 13-35 U/L AST 17 LAB GLU 74-99 mg/dL Glucose High 229 Result Comment: The [place] Diabetes Association (ADA) provides guidance for cutoff [...] Standards of Medical Care in Diabetes 2016, [place] [employer] Association. Diabetes Care. 2016.39(Suppl 1). LAB [...] #### FT4, CMP, RF, TSH, HBA1C #### [facility] [employer] [address] [address] RHEUMATOID FACTOR Collected: 10/03/2017 Status: F Source: [place] 2:12 PM [facility] REPOSITORY TYPE CODE TESTS RESULT OUT OF REFERENCE UNITS RANGE LAB RF <16 IU/mL Rheumatoid <10 Factor Performed By: #### FT4, CMP, RF, TSH, HBA1C #### [facility] [employer] [address] [address] TSH Collected: 10/03/2017 Status: F Source: [place] 2:12 PM [facility] REPOSITORY TYPE CODE TESTS RESULT OUT OF RANGE REFERENCE UNITS LAB TSH 0.400-5.500 uU/mL TSH 2.280 Performed By: #### FT4, CMP, RF, TSH, HBA1C #### [facility] [employer] [address] [phone] HEMOGLOBIN A1C Collected: 10/03/2017 Status: F Source: [place] 2:12 PM [facility] REPOSITORY TYPE CODE TESTS RESULT OUT OF REFERENCE UNITS RANGE LAB HGBA1C 4.3-5.6 % High Hemoglobin A1c 6.7 LAB HBA0 mg/dL Est. Average Glucose 146 Result Comment: eAG: (Estimated average glucose) is a calculated value from HgbA1c and is member service representative of the average blood glucose level in the last 2-3 month period. Performed By: #### FT4, CMP, RF, TSH, HBA1C #### [facility] [employer] [address] [place], [place] [address] ALBUMIN/CREAT RATIO Collected: 10/03/2017 Status: F Source: [place] 2:12 PM [facility] REPOSITORY TYPE CODE TESTS RESULT OUT OF REFERENCE UNITS RANGE LAB UCRR 20-300 mg/dL 47.7 Creatinine,Ur ine,Ran LAB UALBR 0.0-23.0 mg/L <12.0 Albumin Urine Random LAB UALBCR 0-30 mg/g Not Albumin/Creat calculated Ratio Performed By: #### UACR #### [facility] [employer] [address] [place], [place] [address] CNOV Observed: 10/03/2017 Status: COMPLETED Source: [place] 1:00 PM [facility] REPOSITORY Office Visit (INTMWS) ELIZABETH HO ([id number]) 1950 F Date Time Provider Department 10/03/17 1:00 PM RON MACIAS ([facility]) INTMWS During your visit today, we recorded the following information about you: Temperature Pulse Respiration Blood pressure 98.1 degrees 64/minute 16/minute 122/64 Weight 92.1 kg Ron Macias APRN.CNP 10/03/2017 3:58 PM Signed CC: No chief complaint on file. HPI Elizabeth Ho is a 67 year old female who presents today with qlbvqt-ai-kur for [facility] follow up from 09/17 to [...] need follow up labs- arranged for at [facility] - Anemia 05/15/2013 Chronic anemia of unclear [...] 05/15/2013 - Cellulitis of left leg 01/29/2010 [facility] ER 01/27/10 transferred to [facility] Dx: sepsis, afib, elevated INR - [...] on hemodialysis ([facility]) Dr. Luo ([place]) - Failure to extubation 08/26/2013 Patient was [...] write COPAT. David placed. Will go to [facility] on Monday. - [place] (HCC) [...] and schedule follow up with [place]o [place] - UTI (lower urinary tract infection) DIRECTOR AUTOMOTIVE not caused by insertion of quiroz 07/09/2013 07/08/2013 Urine culture suggests UTI s/p tx with Augmentin - Readmitted 07/21/2013UA/Urine culture checked on admission to the floor- UA negative-> urine culture >100,000 lactose positive gram - bacilli. This was not quiroz induced this was DIRECTOR AUTOMOTIVE. Will discuss with ID - monitor for [...] (Sulfonamide Antibiotics); Vancomycin MEDICATIONS blood sugar diagnostic (CucinialeUCH ULTRA TEST) test strip before meals and [...] ICD10: N18.4 - BMP completed today at [facility] 3. Hypothyroidism due to medication [...] tolerating PO Vancomycin. on 01/07 pt in [facility] and had ld syndrome rxn to [facility]. Date Reviewed: 10/03/2017 Reviewed by: Divya Ramirez Ma - Fully Assessed Reason for Visit: Recheck [92] Cmt: [facility] Hosp follow up CHF, pt [...] Rfl: RHEUMATOID FACTOR BL [SQRF] Order #: [id number] FUTURE nystatin (MYCOSTATIN) powderApply 1 application to [...] [N25.81] INVALID FOR* CAD (coronary artery disease), [place] coronary *INVALID FOR* Priority: F More... More... [...] (ICD) in*INVALID FOR* More... More... DVT prophylaxis [XYB7380] INVALID FOR* More... Thrombocytopenia (HCC) [D69.6] INVALID [...] 10/03/17 PROGRESS Observed: 10/03/2017 Status: COMPLETED Source: [place] 12:51 PM [facility] REPOSITORY HNO ID: [id number] Author: Ron Macias Service: (none) Author Type: Nurse Practitioner Type: Progress Notes Filed: 10/03/2017 3:58 PM Note Text: CC: No chief complaint on file. RACHEL Ho is a 67 year old female who presents today with systnf-xs-iva for [facility] follow up from 09/17 to [...] need follow up labs- arranged for at [facility] - Anemia 05/15/2013 Chronic anemia of unclear [...] 05/15/2013 - Cellulitis of left leg 01/29/2010 [facility] ER 01/27/10 transferred to [facility] Dx: sepsis, afib, elevated INR - [...] on hemodialysis ([facility]) Dr. Luo ([place]) - Failure to extubation 08/26/2013 Patient was [...] write COPAT. David placed. Will go to [facility] on Monday. - [place] (HCC) [...] and schedule follow up with endo [place] - UTI (lower urinary tract infection) DIRECTOR AUTOMOTIVE not caused by insertion of quiroz 07/09/2013 07/08/2013 Urine culture suggests UTI s/p tx with Augmentin - Readmitted 07/21/2013UA/Urine culture checked on admission to the floor- UA negative-> urine culture >100,000 lactose positive gram - bacilli. This was not quiroz induced this was DIRECTOR AUTOMOTIVE. Will discuss with ID - monitor for [...] TONSILLECTOMY HX - TOTAL ABDOM HYSTERECTOMY Hysterectomy, BRENARDA, BSO ALLERGIES Augmentin [Amoxicillin-Pot Clavulanate]; Sulfa (Sulfonamide Antibiotics); Vancomycin MEDICATIONS blood sugar diagnostic (CucinialeUCH ULTRA TEST) test strip before meals and [...] ICD10: N18.4 - BMP completed today at [facility] 3. Hypothyroidism due to medication [...] skin folds of left foot Ron Macias APRN.TEST DESIGN ENGINEER Prescription instructions reviewed with patient as applicable. Potential red flag symptoms discussed with the patient. Reviewed appropriate action plan to take if red flag symptoms occur. Patient agreeable to treatment plan. BASIC METABOLIC Collected: 10/03/2017 Status: F Source: NAM PROFILE (BMP) 12:23 PM [facility] REPOSITORY TYPE CODE TESTS RESULT OUT [...] GAP 6 Performed By: #### L500.2500 #### [facility] [address] [place], [address] BASIC METABOLIC Collected: 09/29/2017 Status: F Source: [place] PROFILE (BMP) 11:13 AM [facility] REPOSITORY Order Comment: 48 TYPE CODE TESTS [...] GAP 11 Performed By: #### L500.2500 #### [facility] [address] [place], [address] PROTHROMBIN TIME W/INR Collected: 09/29/2017 Status: F Source: [place] 11:11 AM [facility] REPOSITORY Order Comment: Comments: Standing order valid from: 09/21/17 to 09/21/18 Comments: Standing order valid from: 09/21/17 to 09/21/18 TYPE CODE TESTS RESULT OUT OF REFERENCE UNITS RANGE LAB L300.4150 11.7-14.9 SECONDS High PROTIME 40.5 LAB L300.4200 High alert INR 4.2 Result Comment: CRITICAL VALUE VERIFIED. CALLED TO [facility] 09/29/17 1331 Ramiro Rider. RESULTS READ BACK BY [facility] . Performed By: #### L300.3900 #### [facility] [address] [place], [address] PROGRESS Observed: 09/21/2017 Status: COMPLETED Source: [place] 9:38 AM [facility] REPOSITORY HNO ID: [id number] Author: Rosa Cee Service: (none) Author Type: [...] 05/15/2013 - Cellulitis of left leg 01/29/2010 [facility] ER 01/27/10 transferred to [facility] Dx: sepsis, afib, elevated INR - [...] on hemodialysis ([facility]) Dr. Luo ([place]) - Failure to extubation 08/26/2013 Patient was [...] write COPAT. David placed. Will go to [facility] on Monday. - [place] (HCC) [...] and schedule follow up with endo at [place] - UTI (lower urinary tract infection) DIRECTOR AUTOMOTIVE not caused by insertion of quiroz 07/09/2013 07/08/2013 Urine culture suggests UTI s/p tx with Augmentin - Readmitted 07/21/2013UA/Urine culture checked on admission to the floor- UA negative-> urine culture >100,000 lactose positive gram - bacilli. This was not quiroz induced this was DIRECTOR AUTOMOTIVE. Will discuss with ID - monitor for [...] (Sulfonamide Antibiotics); Vancomycin MEDICATIONS blood sugar diagnostic ([employer] Solar[employer]CH ULTRA TEST) test strip before meals and [...] APRN.MONA CNOV Observed: 09/21/2017 Status: COMPLETED Source: [place] 9:30 AM [facility] REPOSITORY Office Visit (WSTR) ELIZABETH HO ([id number]) 1950 F Date Time Provider Department 09/21/17 [...] need follow up labs- arranged for at [facility] - Anemia 05/15/2013 Chronic anemia of unclear [...] 05/15/2013 - Cellulitis of left leg 01/29/2010 [facility] ER 01/27/10 transferred to [facility] Dx: sepsis, afib, elevated INR - [...] on hemodialysis ([facility]) Dr. Luo ([place]) - Failure to extubation 08/26/2013 Patient was [...] write COPAT. David placed. Will go to [facility] on Monday. - [place] (HCC) [...] and schedule follow up with endo at [place] - UTI (lower urinary tract infection) DIRECTOR AUTOMOTIVE not caused by insertion of quiroz 07/09/2013 07/08/2013 Urine culture suggests UTI s/p tx with Augmentin - Readmitted 07/21/2013UA/Urine culture checked on admission to the floor- UA negative-> urine culture >100,000 lactose positive gram - bacilli. This was not quiroz induced this was DIRECTOR AUTOMOTIVE. Will discuss with ID - monitor for [...] (Sulfonamide Antibiotics); Vancomycin MEDICATIONS blood sugar diagnostic (CucinialeUCH ULTRA TEST) test strip before meals and [...] tolerating PO Vancomycin. [facility]07 [facility] [facility] and had ld syndrome rxn [...] [N25.81] INVALID FOR* CAD (coronary artery disease), [place] coronary *INVALID FOR* Priority: F More... More... [...] (ICD) in*INVALID FOR* More... More... DVT prophylaxis [TNP4297] INVALID FOR* More... Thrombocytopenia (HCC) [D69.6] INVALID [...] DISCHARGE SUMMARY Observed: 09/20/2017 Status: F Source: [place] 4:10 PM [facility] REPOSITORY [facility] Medical Records Department [address] [place] [address] [place] [address] Discharge Summary 09/20/17 1604 MR#: [id number] Acct: [id number] Name: ELIZABETH HO Rep #: [id number] : 1950 67 From: Jose Castillo MD PCP: Williams Parekh MD Status: ADM IN Y Location: [place] [address] Discharge Date and Diagnosis - Problem List [...] clinically compensated. She was also seen by set rider who recommended an increase in her metolazone [...] applicable Code Visit Inpatient E AND M: 15701 Disch Hosp 09/20/17 1610 <Electronically signed by Jose Castillo MD> Date Jose Castillo MD Cosigner Signature (if applicable): Date CC: Jose Castillo MD; Williams Parekh MD Signed DISCHARGE INSTRUCTION Observed: 09/20/2017 Status: F Source: [place] 4:04 PM [facility] REPOSITORY [facility] Medical Records Department [address] [place] [address] Instructions for Home/Discharge Instructions 09/20/17 1603 MR#: [id number] Acct: [id number] Name: ELIZABETH HO Bright Rep #: [id number] : 1950 67 From: Jose Castillo MD [...] 1 Week Proposed Discharge Date: 09/20/17 09/20/17 6341 <Electronically signed by Jose Castillo MD> Date Jose Castillo MD CC: Williams Parekh MD; Michael See MD 12 LEAD ELECTROCARDIOGRAM Observed: 09/20/2017 Status: F Source: [place] 2:40 PM [facility] REPOSITORY [facility] Cardiovascular Services [address] [address] 12 Lead EKG 09/17/17 0930 MR#: [id number] Acct: [id number] Name: ELIZABETH HO Rep #: [id number] : 1950 67 From: Michael See MD Attending Dr: Anna CUELLAR,Jose Status: ADM IN Ordering Dr: Douglas Li MD Date: 09/17/17 Location: [facility] Sex: F C Admitted: 09/17/17 Test [...] Abnormal ECG Confirmed by ESA CUELLAR, MICHAEL ([id number]), website/blog editor CAT CONKLIN ([id number]) on 09/20/2017 2:40:32 PM Referred By: JEN Confirmed By:MICHAEL SEE MD 09/20/17 1440 Date Michael See MD CC: DOUGLAS LI MD; Jose Castillo MD; Williams Parekh MD Signed PROTIME W/INR Collected: 09/20/2017 Status: F Source: [place] 2:25 PM [facility] REPOSITORY TYPE CODE TESTS RESULT OUT OF REFERENCE UNITS RANGE LAB L9200.1001 11.9-14.4 SEC High PROTIME ISTAT 22.8 Result Comment: Reference Range 11.9 - 14.4 LAB L9200.2000 Normal INR ISTAT 2.00 Result Comment: Critical Value > 3.5 Performed By: #### L9200.0000 #### [facility] Point of Care [address] [place], [place] [address] BASIC METABOLIC Collected: 09/20/2017 Status: F Source: [place]AM PROFILE (BMP) 12:35 PM [facility] REPOSITORY Order Comment: VERY HARD STICK TYPE [...] GAP 8 Performed By: #### L500.2500 #### [facility] [address] [place], [place], [address] BEDSIDE GLUCOSE Collected: 09/20/2017 Status: F Source: [place]AM 11:50 AM [facility] REPOSITORY TYPE CODE TESTS RESULT OUT OF REFERENCE UNITS RANGE LAB L501.080 70-110 mg/dL High BEDSIDE GLU 238 Result Comment: MANAGEMENT OF PATIENT CARE PER NURSING PROTOCOL Performed By: #### L501.080 #### [facility] Point of Care [address] [place] [address] BEDSIDE GLUCOSE Collected: 09/20/2017 Status: F Source: NAM 6:54 AM [facility] REPOSITORY TYPE CODE TESTS RESULT OUT OF RANGE REFERENCE UNITS LAB L501.080 70-110 mg/dL Normal BEDSIDE GLU 105 Result Comment: MANAGEMENT OF PATIENT CARE PER NURSING PROTOCOL Performed By: #### L501.080 #### [facility] Point of Care [address] [place] [address] BEDSIDE GLUCOSE Collected: 09/19/2017 Status: F Source: [place]AM 10:00 PM [facility] REPOSITORY TYPE CODE TESTS RESULT OUT OF RANGE REFERENCE UNITS LAB L501.080 70-110 mg/dL Normal BEDSIDE GLU 85 Result Comment: MANAGEMENT OF PATIENT CARE PER NURSING PROTOCOL Performed By: #### L501.080 #### [facility] Point of Care [address] [place] [address] BEDSIDE GLUCOSE Collected: 09/19/2017 Status: F Source: [place]AM 4:37 PM [facility] REPOSITORY TYPE CODE TESTS RESULT OUT OF REFERENCE UNITS RANGE LAB L501.080 70-110 mg/dL High BEDSIDE GLU 167 Result Comment: MANAGEMENT OF PATIENT CARE PER NURSING PROTOCOL Performed By: #### L501.080 #### [facility] Point of Care [address] [place] [address] BEDSIDE GLUCOSE Collected: 09/19/2017 Status: F Source: NAM 11:10 AM [facility] REPOSITORY TYPE CODE TESTS RESULT OUT OF REFERENCE UNITS RANGE LAB L501.080 70-110 mg/dL High BEDSIDE GLU 192 Result Comment: MANAGEMENT OF PATIENT CARE PER NURSING PROTOCOL Performed By: #### L501.080 #### [facility] Point of Care [address] [place] [address] BEDSIDE GLUCOSE Collected: 09/19/2017 Status: F Source: NAM 6:56 AM [facility] REPOSITORY TYPE CODE TESTS RESULT OUT OF REFERENCE UNITS RANGE LAB L501.080 70-110 mg/dL High BEDSIDE GLU 173 Result Comment: MANAGEMENT OF PATIENT CARE PER NURSING PROTOCOL Performed By: #### L501.080 #### [facility] Point of Care [address] [place], [place] [address] PROTHROMBIN TIME W/INR Collected: 09/19/2017 Status: F Source: [place] 6:25 AM [facility] REPOSITORY TYPE CODE TESTS RESULT OUT OF RANGE REFERENCE UNITS LAB L300.4150 11.7-14.9 SECONDS High PROTIME 31.7 LAB L300.4200 Normal INR 3.0 Performed By: #### L300.3900 #### [facility] [address] [place], [address] BASIC METABOLIC Collected: 09/19/2017 Status: F Source: [place]AM PROFILE (BMP) 6:25 AM [facility] REPOSITORY TYPE CODE TESTS RESULT OUT [...] GAP 9 Performed By: #### L500.2500 #### [facility] [address] [place], [address] BEDSIDE GLUCOSE Collected: 09/18/2017 Status: F Source: [place]AM 10:34 PM [facility] REPOSITORY TYPE CODE TESTS RESULT OUT OF REFERENCE UNITS RANGE LAB L501.080 70-110 mg/dL High BEDSIDE GLU 167 Result Comment: MANAGEMENT OF PATIENT CARE PER NURSING PROTOCOL Performed By: #### L501.080 #### [facility] Point of Care [address] [place] [address] BEDSIDE GLUCOSE Collected: 09/18/2017 Status: F Source: [place]AM 4:29 PM [facility] REPOSITORY TYPE CODE TESTS RESULT OUT OF REFERENCE UNITS RANGE LAB L501.080 70-110 mg/dL High BEDSIDE GLU 250 Result Comment: MANAGEMENT OF PATIENT CARE PER NURSING PROTOCOL Performed By: #### L501.080 #### [facility] Point of Care [address] [place] [address] BEDSIDE GLUCOSE Collected: 09/18/2017 Status: F Source: NAM 11:26 AM [facility] REPOSITORY TYPE CODE TESTS RESULT OUT OF REFERENCE UNITS RANGE LAB L501.080 70-110 mg/dL High BEDSIDE GLU 235 Result Comment: MANAGEMENT OF PATIENT CARE PER NURSING PROTOCOL Performed By: #### L501.080 #### [facility] Point of Care [address] [place] [address] BEDSIDE GLUCOSE Collected: 09/18/2017 Status: F Source: NAM 8:56 AM [facility] REPOSITORY TYPE CODE TESTS RESULT OUT OF REFERENCE UNITS RANGE LAB L501.080 70-110 mg/dL High BEDSIDE GLU 146 Result Comment: MANAGEMENT OF PATIENT CARE PER NURSING PROTOCOL Performed By: #### L501.080 #### [facility] Point of Care [address] [place] [address] CBC-COMPLETE BLOOD CNT Collected: 09/18/2017 Status: F Source: [place]AM NO DIFF 6:52 AM [facility] REPOSITORY TYPE CODE TESTS RESULT OUT [...] MPV 10.7 Performed By: #### L100.0500 #### [facility] [address] [facility] [place], [place], [address] PROTHROMBIN TIME W/INR Collected: 09/18/2017 Status: F Source: [place] 6:52 AM [facility] REPOSITORY Order Comment: CRITICAL VALUE VERIFIED. CALLED TO GENESIS 09/18/17 0731 Rayne Nicole. RESULTS READ BACK BY SARAH . TYPE CODE TESTS RESULT OUT OF REFERENCE UNITS RANGE LAB L300.4150 11.7-14.9 SECONDS High PROTIME 39.4 LAB L300.4200 High alert INR 4.0 Performed By: #### L300.3900 #### [facility] [address] [place], [address] BASIC METABOLIC Collected: 09/18/2017 Status: F Source: [place] PROFILE (BMP) 6:52 AM [facility] REPOSITORY TYPE CODE TESTS RESULT OUT [...] 9 Performed By: #### L500.2500, L500.4100 #### [facility] [address] [place], [address] LIPID PROFILE Collected: 09/18/2017 Status: F Source: [place] 6:52 AM [facility] REPOSITORY TYPE CODE TESTS RESULT OUT [...] 15 Performed By: #### L500.2500, L500.4100 #### [facility] [address] [place], [address] BEDSIDE GLUCOSE Collected: 09/18/2017 Status: F Source: [place] 6:41 AM [facility] REPOSITORY TYPE CODE TESTS RESULT OUT OF REFERENCE UNITS RANGE LAB L501.080 70-110 mg/dL High BEDSIDE GLU 112 Result Comment: MANAGEMENT OF PATIENT CARE PER NURSING PROTOCOL Performed By: #### L501.080 #### [facility] Point of Care [address] [place] [address] TROPONIN-I Collected: 09/17/2017 Status: F Source: [place] 11:00 PM [facility] REPOSITORY Order Comment: 'TROP' Serial specimen #1, #2 or #3: 3 TYPE CODE TESTS RESULT OUT OF RANGE REFERENCE UNITS LAB L501.4010 <0.045 ng/mL Normal < 0.015 TROPONIN-I Result Comment: TROPONIN-I EXPECTED VALUES <0.045 Negative 0.045 - 0.590 Consistent with Cardiac Damage > OR = 0.600 Critical Value Not every elevated troponin is indicative of SD. These values should be used with clinical judgement in examining the patient's clinical picture for diagnosis. To establish a diagnosis of SD versus myocardial injury, there must be a demonstrated rise and/or fall in the troponin values, in addition to ischemic symptoms, EKG changes, new regional wall motion abnormality, and/or angiographical evidence. PLEASE NOTE: REFERENCE RANGES EDITED 17 Performed By: #### L501.4010 #### [facility] [address] [place], [address] BEDSIDE GLUCOSE Collected: 09/17/2017 Status: F Source: [place]AM 10:11 PM [facility] REPOSITORY TYPE CODE TESTS RESULT OUT OF REFERENCE UNITS RANGE LAB L501.080 70-110 mg/dL High BEDSIDE GLU 136 Result Comment: MANAGEMENT OF PATIENT CARE PER NURSING PROTOCOL Performed By: #### L501.080 #### [facility] Point of Care [address] [place] [address] CONSULTATION Observed: 09/17/2017 Status: F Source: NAM 5:00 PM [facility] REPOSITORY [facility] Medical Records Department [address] [place] [address] Consultation 09/17/17 1641 MR#: [id number] Acct: [id number] Name: ELIZABETH HO Rep #: [id number] : 1950 67 From: Michael See MD PCP: Williams Parekh MD Status: ADM IN Location: [place] [address] Problem List (1) CHF exacerbation Status: Acute [...] Status: Chronic Qualifiers: Coronary Disease-Associated Artery/Lesion type: [place] artery (8) ICD (implantable cardioverter-defibrillator) in place [...] she was recently evaluated by her [facility] set rider. She states that he adjusted her diuretic [...] Ventricular flutter (Chronic) Rheumatic tricuspid insufficiency (Chronic) correction (current) use of anticoagulants (Chronic) ICD (implantable [...] ICD Psychiatric History: No pertinent psych hx LAW TUTOR History: No pertinent LAW TUTOR history - *Family History Maternal Family History: [...] Sinus rhythm with PACs and PVCs ICD: [employer] AB: [employer]: Model number: [id number]: Serial number: [id number]: Date implanted: 08/14/2014: Dual-chamber ICD CXR: As [...] was functioning appropriately. She recently had her [facility] follow-up visit. There were no additional recommendations made for further evaluation or care of the aortic valve other than continued medical management and [place] antibiotic prophylaxis. 5. 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 She states she was [...] was discussed with the patient and the [facility] emergency department staff. This note was generated with [employer] software. It may contain incorrect words, spelling, and punctuation that were not noted in checking the note before signing. 09/17/17 1700 <Electronically signed by Michael See MD> Date Michael See MD Cosigner Signature (if applicable): Date CC: Williams Parekh MD; Michael See MD Signed BEDSIDE GLUCOSE Collected: 09/17/2017 Status: F Source: [place] 4:47 PM [facility] REPOSITORY TYPE CODE TESTS RESULT OUT OF REFERENCE UNITS RANGE LAB L501.080 70-110 mg/dL High BEDSIDE GLU 287 Result Comment: MANAGEMENT OF PATIENT CARE PER NURSING PROTOCOL Performed By: #### L501.080 #### [facility] Point of Care [address] [facility] [place], [place] [address] TROPONIN-I Collected: 09/17/2017 Status: F Source: [place] 4:47 [facility] REPOSITORY Order Comment: 'TROP' Serial specimen #1, #2 or #3: 1 TYPE CODE TESTS RESULT OUT OF RANGE REFERENCE UNITS LAB L501.4010 <0.045 ng/mL Normal < 0.015 TROPONIN-I Result Comment: TROPONIN-I EXPECTED VALUES <0.045 Negative 0.045 - 0.590 Consistent with Cardiac Damage > OR = 0.600 Critical Value Not every elevated troponin is indicative of SD. These values should be used with clinical judgement in examining the patient's clinical picture for diagnosis. To establish a diagnosis of SD versus myocardial injury, there must be a demonstrated rise and/or fall in the troponin values, in addition to ischemic symptoms, EKG changes, new regional wall motion abnormality, and/or angiographical evidence. PLEASE NOTE: REFERENCE RANGES EDITED 17 Performed By: #### L501.4010, L501.5200, L501.9520 #### [facility] [address] [facility] [place], [place], [address] MAGNESIUM Collected: 09/17/2017 Status: F Source: [place] 4:47 PM [facility] REPOSITORY Order Comment: 'TROP' Serial specimen #1, #2 or #3: 1 TYPE CODE TESTS RESULT OUT OF RANGE REFERENCE UNITS LAB L501.5200 1.6-2.6 mg/dL Normal MG 2.2 Performed By: #### L501.4010, L501.5200, L501.9520 #### [facility] [address] [facility] [place], [address] THYROID STIM HORMONE Collected: 09/17/2017 Status: F Source: [place] (TSH) 4:47 PM [facility] REPOSITORY Order Comment: 'TROP' Serial specimen #1, #2 or #3: 1 TYPE CODE TESTS RESULT OUT OF RANGE REFERENCE UNITS LAB L501.9520 0.358-3.74 uIU/mL Normal TSH 1.04 Performed By: #### L501.4010, L501.5200, L501.9520 #### [facility] [address] [place], [address] PROTHROMBIN TIME W/INR Collected: 09/17/2017 Status: F Source: [place] 4:47 PM [facility] REPOSITORY TYPE CODE TESTS RESULT OUT OF REFERENCE UNITS RANGE LAB L300.4150 11.7-14.9 SECONDS High PROTIME 38.1 LAB L300.4200 High alert INR 3.8 Result Comment: CRITICAL VALUE VERIFIED. CALLED TO VIOLETA GARCIA 09/17/17 1752 Sandra Israel. RESULTS READ BACK BY SAME. Performed By: #### L300.3900 #### [facility] [address] [place], [address] HISTORY AND PHYSICAL Observed: 09/17/2017 Status: F Source: NAM EXAM 4:13 PM [facility] REPOSITORY 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 Advanced Care Planning Face to Face Time: 20 minutes. 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 6. Type 2 diabetes hehflnxb-Zcgu-Zrnsd before meals at bedtime with sliding scale [...] EMERGENCY DEPARTMENT Observed: 09/17/2017 Status: F Source: [place] SUMMARY 3:29 PM [facility] REPOSITORY [facility] Medical Records Department [address] [place] [address] Emergency Department Summary 09/17/17 1010 MR#: [id number] Acct: [id number] Name: ELIZABETH HO Bright Rep #: [id number] : 1950 67 From: Douglas Li MD [...] a week recently from her doctor in [place]. I discussed with Dr. See, who agrees that medically, inpatient or outpatient may be reasonable. He will evaluate her if admitted. Will discuss with hospitalist. ED Disposition - Plan for ED Patient: Disposition: Acute Care Hospital [facility] Chief Complaint: Chest Pain Diagnosis: CHF exacerbation, JAYESH (acute kidney injury) What to do if you have Problems For any increased pain, shortness of breath, bleeding, nausea or vomiting, chest pain, or any unexpected problems, contact your Primary Care Provider. Call [facility] ([phone]) or report to the closest Emergency Room. Call 911 if necessary. 09/17/17 1529 <Electronically signed by Douglas Li MD> Date Douglas Li MD Cosigner Signature (If Indicated): Date CC: Williams Parekh MD CBC W/DIFF, AUTOMATED Collected: 09/17/2017 Status: F Source: [place] 9:50 AM [facility] REPOSITORY TYPE CODE TESTS RESULT OUT [...] Lymph 0.29 Performed By: #### L100.0100 #### [facility] [address] [facility] [place], [address] CHEST 1 VIEW Observed: 09/17/2017 Status: F Source: [place] (PORTABLE) 9:50 AM [facility] REPOSITORY [facility] Imaging Services [address] [place] [address] Chest 1 View (Portable) MR#: [id number] Acct: [id number] Name: ELIZABETH HO Rep #: [id number] : 1950 F 67 From: Abe Alamo MD PCP: Williams Parekh MD Status: REG ER Study: Chest 1 View (Portable) Date of Exam: 09/17/17 Exam# [id number] Ordering Dr: Douglas Li MD STUDY: X-RAY [...] CC: DOUGLAS LI MD; Williams Parekh MD Tester Operator Helper: Signed BASIC METABOLIC Collected: 09/17/2017 Status: F Source: NAM PROFILE (BMP) 9:50 AM [facility] REPOSITORY TYPE CODE TESTS RESULT OUT [...] 7 Performed By: #### L500.2500, L501.4010 #### [facility] [address] [place] [place], [address] TROPONIN-I Collected: 09/17/2017 Status: F Source: NAM 9:50 AM [facility] REPOSITORY TYPE CODE TESTS RESULT OUT OF RANGE REFERENCE UNITS LAB L501.4010 <0.045 ng/mL Normal < 0.015 TROPONIN-I Result Comment: TROPONIN-I EXPECTED VALUES <0.045 Negative 0.045 - 0.590 Consistent with Cardiac Damage > OR = 0.600 Critical Value Not every elevated troponin is indicative of SD. These values should be used with clinical judgement in examining the patient's clinical picture for diagnosis. To establish a diagnosis of SD versus myocardial injury, there must be a demonstrated rise and/or fall in the troponin values, in addition to ischemic symptoms, EKG changes, new regional wall motion abnormality, and/or angiographical evidence. PLEASE NOTE: REFERENCE RANGES EDITED 17 Performed By: #### L500.2500, L501.4010 #### [facility] [address] [facility] [place], [address] BNP,B-TYPE NATRIURETIC Collected: 09/17/2017 Status: F Source: [place] PEPTIDE 9:50 AM [facility] REPOSITORY TYPE CODE TESTS RESULT OUT OF RANGE REFERENCE UNITS LAB L503.6620 0-100 pg/mL High B-TYPE 203.7 LILY PEP Performed By: #### L503.6620 #### [facility] [address] [facility] [place], [address] PROGRESS Observed: 09/13/2017 Status: COMPLETED Source: [place] 6:03 PM [facility] REPOSITORY HNO ID: [id number] Author: Ingris George MD Service: (none) Author Type: Physician Type: Progress Notes Filed: 09/14/2017 3:33 PM Note Text: [facility] Department of Cardiovascular Medicine SECTION OF INTERVENTIONAL CARDIOLOGY OUTPATIENT VISIT DATE September 13, 2017 OUTPATIENT VISIT TYPE ESTABLISHED PRIMARY CARE PHYSICIAN: Williams Parekh MD [address] [place] [address] CHIEF COMPLAINT: Patient presents with: CARD Follow [...] 05/15/2013 - Cellulitis of left leg 01/29/2010 [facility] ER 01/27/10 transferred to [facility] Dx: sepsis, afib, elevated INR - [...] on hemodialysis ([facility]) Dr. Luo ([place]) - Failure to extubation 08/26/2013 Patient was [...] write COPAT. David placed. Will go to [facility] on Monday. - [place] (HCC) [...] and schedule follow up with endo at [place] - UTI (lower urinary tract infection) DIRECTOR AUTOMOTIVE not caused by insertion of quiroz 07/09/2013 07/08/2013 Urine culture suggests UTI s/p tx with Augmentin - Readmitted 07/21/2013UA/Urine culture checked on admission to the floor- UA negative-> urine culture >100,000 lactose positive gram - bacilli. This was not quiroz induced this was DIRECTOR AUTOMOTIVE. Will discuss with ID - monitor for [...] tolerating PO Vancomycin. on 01/07 pt in [facility] and had ld syndrome rxn to [facility] IV. MEDICATIONS: blood sugar diagnostic (CucinialeUCH ULTRA TEST) test strip before meals and [...] reviewed an echocardiogram performed by her primary set rider in June that demonstrates a normal ejection [...] have her echocardiogram either with her primary set rider or with me as long as she gets one yearly. Addendum Take Metolazone 3X/week for the next 2 weeks then go back to 2X/week PROTHROMBIN TIME W/INR Collected: 09/11/2017 Status: F Source: NAM 10:10 AM [facility] REPOSITORY TYPE CODE TESTS RESULT OUT OF RANGE REFERENCE UNITS LAB L300.4150 11.7-14.9 SECONDS High PROTIME 29.1 LAB L300.4200 Normal INR 2.7 Performed By: #### L300.3900 #### [facility] [address] [place], [address] BASIC METABOLIC PANL Collected: 09/07/2017 Status: F Source: [place] 2:55 PM [facility] REPOSITORY TYPE CODE TESTS RESULT OUT OF REFERENCE UNITS RANGE LAB GLU 74-99 mg/dL Glucose 89 Result Comment: The [place] [employer] (ADA) provides guidance for cutoff [...] Standards of Medical Care in Diabetes 2016, [place] [employer]. Diabetes Care. 2016.39(Suppl 1). LAB [...] GFR. Performed By: #### MARIO NTBNP #### [facility] [employer] [address] [place], [place] [address] NT PRO BNP Collected: 09/07/2017 Status: F Source: [place] 2:55 PM [facility] REPOSITORY TYPE CODE TESTS RESULT OUT OF REFERENCE UNITS RANGE LAB PBNP <125 pg/mL High PRO B Natr 2697 Peptide Performed By: #### BMP, NTBNP #### [facility] [employer] [address] [place], [place] [address] CNOV Observed: 09/07/2017 Status: COMPLETED Source: COVE 1:15 PM [facility] REPOSITORY Office Visit (CATHMN) ELIZABETH HO ([id number]) 1950 F Date Time Provider Department 09/07/17 1:15 PM INGRIS GEORGE During your visit today, we recorded the following information about you: Pulse Respiration Blood pressure Weight 62/minute 14/minute 131/61 93.4 kg Height 1.676 m Ingris George MD, MD 09/14/2017 3:33 PM Signed [facility] Department of Cardiovascular Medicine SECTION OF INTERVENTIONAL CARDIOLOGY OUTPATIENT VISIT DATE September 13, 2017 OUTPATIENT VISIT TYPE ESTABLISHED PRIMARY CARE PHYSICIAN: Williams Parekh MD [address] [place] [address] CHIEF COMPLAINT: Patient presents with: CARD Follow [...] 05/15/2013 - Cellulitis of left leg 01/29/2010 [facility] ER 01/27/10 transferred to [facility] Dx: sepsis, afib, elevated INR - [...] on hemodialysis ([facility]) Dr. Luo ([place]) - Failure to extubation 08/26/2013 Patient was [...] write COPAT. David placed. Will go to [facility] on Monday. - [place] de pointes (HCC) [...] and schedule follow up with endo at [place] - UTI (lower urinary tract infection) DIRECTOR AUTOMOTIVE not caused by insertion of quiroz 07/09/2013 07/08/2013 Urine culture suggests UTI s/p tx with Augmentin - Readmitted 07/21/2013UA/Urine culture checked on admission to the floor- UA negative-> urine culture >100,000 lactose positive gram - bacilli. This was not quiroz induced this was DIRECTOR AUTOMOTIVE. Will discuss with ID - monitor for [...] tolerating PO Vancomycin. on 01/07 pt in [facility] and had ld syndrome rxn to Vanc IV. MEDICATIONS: blood sugar diagnostic (CucinialeUCH ULTRA TEST) test strip before meals and [...] reviewed an echocardiogram performed by her primary set rider in June that demonstrates a normal ejection [...] have her echocardiogram either with her primary set rider or with me as long as she gets one yearly. Addendum Take Metolazone 3X/week for the next 2 weeks then go back to 2X/week Referring Provider: INGRIS GEORGE [[id number]] Allergies As of Date: 09/07/2017 Noted Allergy Reaction AUGMENTIN (AMOXICILLIN-POT CLAVUL*2013 2 - Rash SULFA (SULFONAMIDE ANTIBIOTICS) 01/10/2005 4 - Hives VANCOMYCIN 08/26/2013 10 - Anaphylaxis Comments: Per pharmacist. Patient tolerating PO Vancomycin. on 01/07 pt in [facility] and had ld syndrome rxn [...] Rfl: BASIC METABOLIC PNL [SQBMP] Order #: [id number] FUTURE NT PRO BNP [SQNTBNP] Order #: [id number] FUTURE Prescriptions as of 09/07/2017 Sig: BLOOD [...] [N25.81] INVALID FOR* CAD (coronary artery disease), [place] coronary *INVALID FOR* Priority: F More... More... [...] (ICD) in*INVALID FOR* More... More... DVT prophylaxis [KEC1278] INVALID FOR* More... Thrombocytopenia (HCC) [D69.6] INVALID [...] 09/14/17 CNCO Observed: 09/07/2017 Status: COMPLETED Source: COVE 12:00 AM [facility] REPOSITORY Letter Text Lashaun Fernando Department of Cardiovascular Medicine [address] [place], [place] [address] Office: [phone] September 07, 2017 Elizabeth Ho [address] [place] [address] NAME: Elizabeth Ho [facility] NO: [id number] DATE OF SERVICE: 09/07/2017 My pleasure to [...] reviewed an echocardiogram performed by her primary set rider in June that demonstrates a normal ejection [...] have her echocardiogram either with her primary set rider or with me as long as she gets one yearly. Please feel free to contact me with any questions. Addendum Take Metolazone 3X/week for the next 2 weeks then go back to 2X/week Sincerely yours, Ingris George MD AK/ph PROTHROMBIN TIME W/INR Collected: 09/04/2017 Status: F Source: [place] 11:13 [facility] REPOSITORY TYPE CODE TESTS RESULT OUT OF RANGE REFERENCE UNITS LAB L300.4150 11.7-14.9 SECONDS High PROTIME 34.9 LAB L300.4200 Normal INR 3.4 Performed By: #### L300.3900 #### [facility] [address] [facility] [place], [place], [address] HEMOGLOBIN A1C Collected: 09/04/2017 Status: F Source: [place] 11:13 AM [facility] REPOSITORY Order Comment: SEND RESULTS TO . TYPE CODE TESTS RESULT OUT OF RANGE REFERENCE UNITS LAB L501.9985 4.2-6.3 % High HGB A1C 6.5 Performed By: #### L501.9985 #### [facility] [address] [place], [address] VITAMIN D,25 HYDROXY Collected: 09/04/2017 Status: F Source: [place] 11:13 AM [facility] REPOSITORY Order Comment: SEND RESULTS TO . [...] (>250 nmol/L) Performed By: #### L506.1000 #### [facility] [place], [address] COMPREHENSIVE METABOLIC Collected: 09/04/2017 Status: F Source: [place]AM [place] 11:13 AM [facility] REPOSITORY Order Comment: SEND RESULTS TO . [...] Performed By: #### L500.4050, L501.9520, L506.0400 #### [facility] [address] [place], [address] THYROID STIM HORMONE Collected: 09/04/2017 Status: F Source: [place] (TSH) 11:13 AM [facility] REPOSITORY Order Comment: SEND RESULTS TO . TYPE CODE TESTS RESULT OUT OF RANGE REFERENCE UNITS LAB L501.9520 0.358-3.74 uIU/mL Normal TSH 2.88 Performed By: #### L500.4050, L501.9520, L506.0400 #### [facility] [address] [place], [place], [address] T4 FREE DIRECT Collected: 09/04/2017 Status: F Source: [place] 11:13 AM [facility] REPOSITORY Order Comment: SEND RESULTS TO . TYPE CODE TESTS RESULT OUT OF RANGE REFERENCE UNITS LAB L506.0400 0.76-1.46 ng/dL Normal T4 FREE 1.45 DIRECT Performed By: #### L500.4050, L501.9520, L506.0400 #### [facility] [address] [place], [place], [address] CNOV Observed: 08/21/2017 Status: COMPLETED Source: [place] 1:00 PM [facility] REPOSITORY Office Visit (INTMWS) ELIZABETH HO ([id number]) 1950 F Date Time Provider Department 08/21/17 [...] need follow up labs- arranged for at [facility] - Anemia 05/15/2013 Chronic anemia of unclear [...] 05/15/2013 - Cellulitis of left leg 01/29/2010 [facility] ER 01/27/10 transferred to [facility] Dx: sepsis, afib, elevated INR - [...] on hemodialysis ([facility]) Dr. Luo ([place]) - Failure to extubation 08/26/2013 Patient was [...] write COPAT. David placed. Will go to [facility] on Monday. - Type II or unspecified [...] and schedule follow up with endo at [place] - UTI (lower urinary tract infection) DIRECTOR AUTOMOTIVE not caused by insertion of quiroz 07/09/2013 07/08/2013 Urine culture suggests UTI s/p tx with Augmentin - Readmitted 07/21/2013UA/Urine culture checked on admission to the floor- UA negative-> urine culture >100,000 lactose positive gram - bacilli. This was not quiroz induced this was DIRECTOR AUTOMOTIVE. Will discuss with ID - monitor for [...] RND UR 2. Coronary artery disease involving [place] coronary artery of [place] heart without angina pectoris I25.10 3. CKD [...] as noted above. Continue follow up with set rider. The majority of the visit was spent counseling and/or coordinating care for the patient. Fdbr-pj-vkmz time was at least 25 minutes. Williams Parekh MD Referring Provider: WILLIAMS PAREKH [[id number]] Allergies As of Date: 08/21/2017 Noted Allergy Reaction AUGMENTIN (AMOXICILLIN-POT CLAVUL*2013 2 - Rash SULFA (SULFONAMIDE ANTIBIOTICS) 01/10/2005 4 - Hives VANCOMYCIN 08/26/2013 10 - Anaphylaxis Comments: Per pharmacist. Patient tolerating PO Vancomycin. on 01/07 pt in [facility] and had ld syndrome rxn to Vanc IV. Date Reviewed: 08/21/2017 Reviewed by: Porsha Nicole Cma - Fully Assessed Reason for Visit: Recheck [92] Primary Visit Diagnosis:Type 2 diabetes mellitus without complication, with long-term current use of insulin ([facility]) [E11.9, Z79.4] Other Visit Diagnoses:Coronary artery disease involving [place] coronary artery of [place] heart without angina pectoris [I25.10] CKD (chronic [...] 3 COMP METABOLIC PANEL [SQCMP] Order #: [id number] FUTURE HGB A1C [FVXWX1N] Order #: [id number] FUTURE VITAMIN D 25 HYDROXY [SQVITD] Order #: [id number] FUTURE TSH BLD [SQTSH] Order #: [id number] FUTURE T4 FREE/FREE THYROX [SQFT4] Order #: [id number] FUTURE ALBUMIN/CREAT RATIO RND UR [SQUACR] Order #: [id number] FUTURE warfarin (COUMADIN) 4 mg qvnfos8ht Monday, 2 mg daily rest of the [...] [N25.81] INVALID FOR* CAD (coronary artery disease), [place] coronary *INVALID FOR* Priority: F More... More... [...] (ICD) in*INVALID FOR* More... More... DVT prophylaxis [SRA3428] INVALID FOR* More... Thrombocytopenia (HCC) [D69.6] INVALID [...] 08/31/17 PROGRESS Observed: 08/21/2017 Status: COMPLETED Source: [place] 12:58 PM [facility] REPOSITORY HNO ID: [id number] Author: Williams Parekh Service: (none) Author Type: [...] need follow up labs- arranged for at [facility] - Anemia 05/15/2013 Chronic anemia of unclear [...] 05/15/2013 - Cellulitis of left leg 01/29/2010 [facility] ER 01/27/10 transferred to [facility] Dx: sepsis, afib, elevated INR - [...] on hemodialysis ([facility]) Dr. Luo ([place]) - Failure to extubation 08/26/2013 Patient was [...] write COPAT. David placed. Will go to [facility] on Monday. - Type II or unspecified [...] and schedule follow up with endo at [place] - UTI (lower urinary tract infection) DIRECTOR AUTOMOTIVE not caused by insertion of quiroz 07/09/2013 07/08/2013 Urine culture suggests UTI s/p tx with Augmentin - Readmitted 07/21/2013UA/Urine culture checked on admission to the floor- UA negative-> urine culture >100,000 lactose positive gram - bacilli. This was not quiroz induced this was DIRECTOR AUTOMOTIVE. Will discuss with ID - monitor for [...] RND UR 2. Coronary artery disease involving [place] coronary artery of [place] heart without angina pectoris I25.10 3. CKD [...] as noted above. Continue follow up with set rider. The majority of the visit was spent counseling and/or coordinating care for the patient. Thwt-pz-fbch time was at least 25 minutes. Williams Parekh MD PROTHROMBIN TIME W/INR Collected: 08/21/2017 Status: F Source: NAM 12:09 PM [facility] REPOSITORY TYPE CODE TESTS RESULT OUT OF RANGE REFERENCE UNITS LAB L300.4150 11.7-14.9 SECONDS High PROTIME 28.7 LAB L300.4200 Normal INR 2.7 Performed By: #### L300.3900 #### [facility] [place], [address] CBC Collected: 08/17/2017 Status: F Source: [place] 12:04 PM [facility] REPOSITORY TYPE CODE TESTS RESULT [...] <0.01 Performed By: #### CBC, LIPB #### [facility] [address] [place], [place] [address] LIPID PANEL, BASIC Collected: 08/17/2017 Status: F Source: [place] 12:04 PM [facility] REPOSITORY TYPE CODE TESTS RESULT [...] Desk Reference: National Heart, Lung, and Blood [place]. National Institutes of Health. 2001: NIH Publication No. 01-3305. 2. An International Atherosclerosis Society position paper: global recommendations for the management of dyslipidemia: executive summary, Atherosclerosis. 2014: 232(2):410-413. Performed By: #### CBC, LIPB #### [facility] [address] [place] [address] CNPTOUTREACH Observed: 08/08/2017 Status: COMPLETED Source: [place] 12:00 AM [facility] REPOSITORY Patient Outreach (FAMPST) ELIZABETH HO ([id number]) 1950 F Date Time Provider Department 08/08/17 WILLIAMS PAREKH FAMPST During your visit today, we recorded the following information about you: Allergies As of Date: 08/08/2017 Noted Allergy Reaction AUGMENTIN (AMOXICILLIN-POT CLAVUL*2013 2 - Rash SULFA (SULFONAMIDE ANTIBIOTICS) 01/10/2005 4 - Hives VANCOMYCIN 08/26/2013 10 - Anaphylaxis Comments: Per pharmacist. Patient tolerating PO Vancomycin. on 01/07 pt in [facility] and had ld syndrome rxn to Vanc IV. Date Reviewed: 03/15/2017 Reviewed by: Porsha Nicole Assembly Manager - Fully Assessed Visit Diagnosis:Medication management [Z79.899] Order(s):CBC [SQCBC] Order #: [id number] FUTURE LIPID PANEL BASIC [SQLIPB] Order #: [id number] FUTURE Prescriptions as of 08/08/2017 Sig: X [...] [N25.81] INVALID FOR* CAD (coronary artery disease), [place] coronary *INVALID FOR* Priority: F More... More... [...] (ICD) in*INVALID FOR* More... More... DVT prophylaxis [WML0879] INVALID FOR* More... Thrombocytopenia [D69.6] INVALID FOR* [...] TIME W/INR Collected: 08/07/2017 Status: F Source: [place] 11:38 AM [facility] REPOSITORY TYPE CODE TESTS RESULT OUT OF RANGE REFERENCE UNITS LAB L300.4150 11.7-14.9 SECONDS High PROTIME 25.9 LAB L300.4200 Normal INR 2.4 Performed By: #### L300.3900 #### [facility] [address] [facility] [place], [address] PACEMAKER CHECK Observed: 08/03/2017 Status: F Source: [place] 11:51 AM [facility] REPOSITORY [facility] [address] [place] [address] Pacemaker Check Date of Service: 07/03/17 1607 MR#: [id number] Acct: [id number] Name: ELIZABETH HO Rep #: [id number] : 1950 From: Lela Bullock Age/Sex: 66/F [place] [facility] [place]: Signed Comments Summary Comments: Dual Chamber ICD Evaluation: Interrogation completed per CHEMICAL UNIT OPERATOR order d/t pt in ER last [...] with PAC's. Battery longevity approx 10 yrs. ROCKET MOTOR TESTER=<1%. Lead impedances, sensing and pace/sense thresholds remain stable. RV amplitude decreased with adequate safety margin. Counters cleared. Next f/u appt scheduled for in 3 mos. Pt had o.v today with NORMA Díaz for further cardiac evaluation. Device Device Date Interviewed: 06/21/17 Follow-up Location: in office Interview Reason: physician request Windows Systems Administrator: [employer] Name: Jennifer IS-1/DF-1-DR Model: [id number] Serial #: [id number] Implant Date: 08/14/14 Year(s): 2 Implant Physician: [...] Yes Incision well healed Leads Lead #1 Windows Systems Administrator Lead 1: Guidant Model Lead 1: [id number] Serial# Lead 1: [id number] Date Implanted Lead 1: 06/25/07 Position Lead 1: RA Lead #2 Windows Systems Administrator Lead 2: Medtronic Model Lead 2: 5076 Serial# Lead 2: [id number] Date Implanted Lead 2: 06/25/07 Position Lead 2: RV Additional Details: RV pace/sense lead Lead #3 Windows Systems Administrator Lead 3: Guidant Model Lead 3: 0184 Serial# Lead 3: [id number] Date Implanted Lead 3: 07/21/07 Position Lead [...] Ventricular tachycardia (paroxysmal) I47.2 S/P AICD 07/03/17 8109 <Electronically signed by Lela Bullock > Date Lela Bullock 08/03/17 1151<Electronically signed by Michael See MD> Cosigner Signature: Date (if applicable) Michael See MD CC: CNOV Observed: 08/01/2017 Status: COMPLETED Source: [place]AN [place]AP[place] 2:00 PM [facility] REPOSITORY Office Visit (INTMWS) ELIZABETH HO ([id number]) 1950 F Date Time Provider Department 4/10/18 2:00 PM RON MACIAS (MONA) INTVirginiaWS During your visit today, we recorded the following information about you: Temperature Pulse Respiration Blood pressure 98.4 degrees 65/minute 16/minute 128/82 Weight 93.4 kg Ron Macias APRN.CNP 08/01/2017 2:28 PM Signed CC: Patient presents with: Recheck: [facility] follow up, cellulitits HPI Elizabeth Ho is a 67 year old female who presents today for [facility] ER follow up from 07/21/17. [...] need follow up labs- arranged for at [facility] - Anemia 05/15/2013 Chronic anemia of unclear [...] 05/15/2013 - Cellulitis of left leg 01/29/2010 [facility] ER 01/27/10 transferred to [facility] Dx: sepsis, afib, elevated INR - [...] Device check ruled OUT VT/VF. Echo showed Stephnaie aortic valve well seated, pk/mn gradients 30/17. [...] on hemodialysis ([facility]) Dr. Luo ([place]) - Failure to extubation 08/26/2013 Patient was [...] write COPAT. David placed. Will go to [facility] on Monday. - Type II or unspecified [...] and schedule follow up with endo at [place] - UTI (lower urinary tract infection) DIRECTOR AUTOMOTIVE not caused by insertion of quiroz 07/09/2013 07/08/2013 Urine culture suggests UTI s/p tx with Augmentin - Readmitted 07/21/2013UA/Urine culture checked on admission to the floor- UA negative-ANDgt; urine culture ANDgt;100,000 lactose positive gram - bacilli. This was not quiroz induced this was DIRECTOR AUTOMOTIVE. Will discuss with ID - monitor for [...] Patient agreeable to treatment plan. Ron Macias APRN.TEST DESIGN ENGINEER Referring Provider: SELF [[id number]] Allergies As of Date: 08/01/2017 Noted Allergy Reaction AUGMENTIN (AMOXICILLIN-POT CLAVUL*2013 2 - Rash SULFA (SULFONAMIDE ANTIBIOTICS) 01/10/2005 4 - Hives VANCOMYCIN 08/26/2013 10 - Anaphylaxis Comments: Per pharmacist. Patient tolerating PO Vancomycin. on 01/07 pt in [facility] and had ld syndrome rxn to Vanc IV. Date Reviewed: 03/15/2017 Reviewed by: Porsha Nicole Assembly Manager - Fully Assessed Reason for Visit: Recheck [92] Cmt: [facility] follow up, cellulitits Primary Visit [...] [N25.81] INVALID FOR* CAD (coronary artery disease), [place] coronary *INVALID FOR* Priority: F More... More... [...] (ICD) in*INVALID FOR* More... More... DVT prophylaxis [NDP2601] INVALID FOR* More... Thrombocytopenia [D69.6] INVALID FOR* [...] 08/01/17 PROGRESS Observed: 08/01/2017 Status: COMPLETED Source: [place] 1:45 PM [facility] REPOSITORY HNO ID: [id number] Author: Ron Macias Service: (none) Author Type: Nurse Practitioner Type: Progress Notes Filed: 08/01/2017 2:28 PM Note Text: CC: Patient presents with: Recheck: [facility] follow up, cellulitits HPI Elizabeth Ho is a 67 year old female who presents today for [facility] ER follow up from 07/21/17. [...] 05/15/2013 - Cellulitis of left leg 01/29/2010 [facility] ER 01/27/10 transferred to [facility] Dx: sepsis, afib, elevated INR - [...] on hemodialysis ([facility]) Dr. Luo ([place]) - Failure to extubation 08/26/2013 Patient was [...] write COPAT. David placed. Will go to [facility] on Monday. - Type II or unspecified [...] and schedule follow up with endo at [place] - UTI (lower urinary tract infection) DIRECTOR AUTOMOTIVE not caused by insertion of quiroz 07/09/2013 07/08/2013 Urine culture suggests UTI s/p tx with Augmentin - Readmitted 07/21/2013UA/Urine culture checked on admission to the floor- UA negative-> urine culture >100,000 lactose positive gram - bacilli. This was not quiroz induced this was DIRECTOR AUTOMOTIVE. Will discuss with ID - monitor for [...] Patient agreeable to treatment plan. Ron Kurtis, ACTING INSTRUCTOR.TEST DESIGN ENGINEER PROTHROMBIN TIME W/INR Collected: 07/31/2017 Status: F Source: NAM 10:17 AM [facility] REPOSITORY TYPE CODE TESTS RESULT OUT OF RANGE REFERENCE UNITS LAB L300.4150 11.7-14.9 SECONDS High PROTIME 19.3 LAB L300.4200 Normal INR 1.6 Performed By: #### L300.3900 #### [facility] [address] [place], [address] PROTHROMBIN TIME W/INR Collected: 07/27/2017 Status: F Source: NAM 10:57 AM [facility] REPOSITORY Order Comment: Send Results To: [facility] Reason for Laboratory Test coumadin TYPE CODE TESTS RESULT OUT OF RANGE REFERENCE UNITS LAB L300.4150 11.7-14.9 SECONDS High PROTIME 24.8 LAB L300.4200 Normal INR 2.2 Performed By: #### L300.3900 #### [facility] [address] [place], [address] DISCHARGE SUMMARY Observed: 07/25/2017 Status: F Source: [place] 2:17 PM [facility] REPOSITORY [facility] Medical Records Department [address] [place] [id number] Discharge Summary 07/25/17 1314 MR#: [id number] Acct: [id number] Name: ELIZABETH HO Rep #: [id number] : 1950 67 From: Jose Castillo MD PCP: Williams Parekh MD Status: ADM IN Location: [address] Discharge Date and Diagnosis - Problem [...] Ventricular flutter (Chronic) Rheumatic tricuspid insufficiency (Chronic) correction (current) use of anticoagulants (Chronic) ICD (implantable [...] with her primary care doctor and her set rider in 1-2 weeks. [] 1. Left leg [...] applicable Code Visit Inpatient E AND M: 15540 Disch Hosp 07/25/17 1417 <Electronically signed by Jose Castillo MD> Date Jose Castillo MD Cosigner Signature (if applicable): Date CC: Jose Castillo MD; Williams Parekh MD Signed DISCHARGE INSTRUCTION Observed: 07/25/2017 Status: F Source: [place]AM 1:13 PM [facility] REPOSITORY [facility] Medical Records Department [address] [place] [address] Instructions for Home/Discharge Instructions 07/25/17 1310 MR#: [id number] Acct: [id number] Name: ELIZABETH HO Rep #: [id number] : 1950 67 From: Jose Castillo MD [...] 07/25/2017 Status: F Source: [place] 11:47 AM [facility] REPOSITORY TYPE CODE TESTS RESULT OUT OF REFERENCE UNITS RANGE LAB L501.080 70-110 mg/dL High BEDSIDE GLU 193 Result Comment: MANAGEMENT OF PATIENT CARE PER NURSING PROTOCOL Performed By: #### L501.080 #### [facility] Point of Care [address] [place], [place] [address] BEDSIDE GLUCOSE Collected: 07/25/2017 Status: F Source: [place] 8:28 AM [facility] REPOSITORY TYPE CODE TESTS RESULT OUT OF RANGE REFERENCE UNITS LAB L501.080 70-110 mg/dL Normal BEDSIDE GLU 108 Result Comment: MANAGEMENT OF PATIENT CARE PER NURSING PROTOCOL Performed By: #### L501.080 #### [facility] Point of Care [address] [place] [address] PROTHROMBIN TIME W/INR Collected: 07/25/2017 Status: F Source: [place]AM 5:00 AM [facility] REPOSITORY TYPE CODE TESTS RESULT OUT OF REFERENCE UNITS RANGE LAB L300.4150 11.7-14.9 SECONDS High PROTIME 43.3 LAB L300.4200 High alert INR 4.5 Result Comment: CRITICAL VALUE VERIFIED. CALLED TO NEETA WARREN 07/25/17617 [place]. RESULTS READ BACK BY SAME . Performed By: #### L300.3900 #### [facility] [address] [place], [address] BEDSIDE GLUCOSE Collected: 07/24/2017 Status: F Source: [place] 10:04 PM [facility] REPOSITORY TYPE CODE TESTS RESULT OUT OF REFERENCE UNITS RANGE LAB L501.080 70-110 mg/dL High BEDSIDE GLU 123 Result Comment: MANAGEMENT OF PATIENT CARE PER NURSING PROTOCOL Performed By: #### L501.080 #### [facility] Point of Care [address] [place] [address] VENOUS DUPLEX LOWER Observed: 07/24/2017 Status: F Source: NAM EXTREMITY 5:24 PM [facility] REPOSITORY [facility] Cardiovascular Services [address] [place] [address] Venous Duplex US - Deandre Extrem 07/24/17 0946 MR#: [id number] Acct: [id number] Name: ELIZABETH HO Rep #: [id number] : 1950 67 From: Ha Herman MD Attending Dr[facility] Status: ADM IN Ordering Dr: Piter Laureano [...] MD Date Dictated: 07/24/17945 Date Transcribed: 07/24/171722 Tester Operator Helper: Signed BEDSIDE GLUCOSE Collected: 07/24/2017 Status: F Source: NAM 4:41 PM [facility] REPOSITORY TYPE CODE TESTS RESULT OUT OF REFERENCE UNITS RANGE LAB L501.080 70-110 mg/dL High BEDSIDE GLU 269 Result Comment: MANAGEMENT OF PATIENT CARE PER NURSING PROTOCOL Performed By: #### L501.080 #### [facility] Point of Care [address] [place] [address] BEDSIDE GLUCOSE Collected: 07/24/2017 Status: F Source: NAM 11:31 AM [facility] REPOSITORY TYPE CODE TESTS RESULT OUT OF REFERENCE UNITS RANGE LAB L501.080 70-110 mg/dL High BEDSIDE GLU 200 Result Comment: Insulin Given MANAGEMENT OF PATIENT CARE PER NURSING PROTOCOL Performed By: #### L501.080 #### [facility] Point of Care [address] [place] [address] BEDSIDE GLUCOSE Collected: 07/24/2017 Status: F Source: NAM 7:41 AM [facility] REPOSITORY TYPE CODE TESTS RESULT OUT OF REFERENCE UNITS RANGE LAB L501.080 70-110 mg/dL High BEDSIDE GLU 113 Result Comment: MANAGEMENT OF PATIENT CARE PER NURSING PROTOCOL Performed By: #### L501.080 #### [facility] Point of Care [address] [place] [address] PROTHROMBIN TIME W/INR Collected: 07/24/2017 Status: F Source: NAM 7:12 AM [facility] REPOSITORY TYPE CODE TESTS RESULT OUT OF REFERENCE UNITS RANGE LAB L300.4150 11.7-14.9 SECONDS High PROTIME 43.1 LAB L300.4200 High alert INR 4.5 Result Comment: CRITICAL VALUE VERIFIED. CALLED TO ALYSON FRANCISCO 07/24/17 0800 Reji Cast RESULTS READ BACK BY SAME. Performed By: #### L300.3900 #### [facility] [address] [place], [address] BEDSIDE GLUCOSE Collected: 07/23/2017 Status: F Source: NAM 9:34 PM [facility] REPOSITORY TYPE CODE TESTS RESULT OUT OF REFERENCE UNITS RANGE LAB L501.080 70-110 mg/dL High BEDSIDE GLU 272 Result Comment: MANAGEMENT OF PATIENT CARE PER NURSING PROTOCOL Performed By: #### L501.080 #### [facility] Point of Care [address] [place] [address] BEDSIDE GLUCOSE Collected: 07/23/2017 Status: F Source: NAM 4:06 PM [facility] REPOSITORY TYPE CODE TESTS RESULT OUT OF REFERENCE UNITS RANGE LAB L501.080 70-110 mg/dL High BEDSIDE GLU 200 Result Comment: MANAGEMENT OF PATIENT CARE PER NURSING PROTOCOL Performed By: #### L501.080 #### [facility] Point of Care [address] [place] [address] BEDSIDE GLUCOSE Collected: 07/23/2017 Status: F Source: NAM 11:21 AM [facility] REPOSITORY TYPE CODE TESTS RESULT OUT OF REFERENCE UNITS RANGE LAB L501.080 70-110 mg/dL High BEDSIDE GLU 191 Result Comment: MANAGEMENT OF PATIENT CARE PER NURSING PROTOCOL Performed By: #### L501.080 #### [facility] Point of Care [address] [place] [address] BEDSIDE GLUCOSE Collected: 07/23/2017 Status: F Source: NAM 7:20 AM [facility] REPOSITORY TYPE CODE TESTS RESULT OUT OF RANGE REFERENCE UNITS LAB L501.080 70-110 mg/dL Normal BEDSIDE GLU 92 Result Comment: MANAGEMENT OF PATIENT CARE PER NURSING PROTOCOL Performed By: #### L501.080 #### [facility] Point of Care [address] [place] [address] BEDSIDE GLUCOSE Collected: 07/22/2017 Status: F Source: NAM 10:02 PM [facility] REPOSITORY TYPE CODE TESTS RESULT OUT OF REFERENCE UNITS RANGE LAB L501.080 70-110 mg/dL High BEDSIDE GLU 138 Result Comment: MANAGEMENT OF PATIENT CARE PER NURSING PROTOCOL Performed By: #### L501.080 #### [facility] Point of Care [address] [place] [address] BEDSIDE GLUCOSE Collected: 07/22/2017 Status: F Source: NAM 3:57 PM [facility] REPOSITORY TYPE CODE TESTS RESULT OUT OF REFERENCE UNITS RANGE LAB L501.080 70-110 mg/dL High BEDSIDE GLU 218 Result Comment: MANAGEMENT OF PATIENT CARE PER NURSING PROTOCOL Performed By: #### L501.080 #### [facility] Point of Care [address] [place] [address] BEDSIDE GLUCOSE Collected: 07/22/2017 Status: F Source: NAM 11:01 AM [facility] REPOSITORY TYPE CODE TESTS RESULT OUT OF REFERENCE UNITS RANGE LAB L501.080 70-110 mg/dL High BEDSIDE GLU 240 Result Comment: MANAGEMENT OF PATIENT CARE PER NURSING PROTOCOL Performed By: #### L501.080 #### [facility] Point of Care [address] [place] [address] BEDSIDE GLUCOSE Collected: 07/22/2017 Status: F Source: NAM 6:58 AM [facility] REPOSITORY TYPE CODE TESTS RESULT OUT OF REFERENCE UNITS RANGE LAB L501.080 70-110 mg/dL High BEDSIDE GLU 119 Result Comment: MANAGEMENT OF PATIENT CARE PER NURSING PROTOCOL Performed By: #### L501.080 #### [facility] Point of Care [address] [place] [address] CBC W/DIFF, AUTOMATED Collected: 07/22/2017 Status: F Source: NAM 6:35 AM [facility] REPOSITORY TYPE CODE TESTS RESULT OUT [...] M.D. 07/25/17 Performed By: #### L100.0100 #### [facility] [address] [place], [address] BASIC METABOLIC Collected: 07/22/2017 Status: F Source: NAM PROFILE ([facility] AM [facility] RE[facility] TYPE [...] GAP 8 Performed By: #### L500.2500 #### [facility] [address] [facility] [place], [address] HISTORY AND PHYSICAL Observed: 07/22/2017 Status: F Source: [place] EXAM 2:44 AM [facility] REPOSITORY [facility] Medical Records Department [address] [place] [address] History and Physical 07/22/17 0000 MR#: [id number] Acct: [id number] Name: ELIZABETH HO Rep #: [id number] : 1950 67 From: Piter Laureano MD PCP: Williams Parekh MD Status: ADM IN Y Location: MS3 [id number] Problem List (1) Cellulitis Status: Acute (2) [...] Ventricular flutter (Chronic) Rheumatic tricuspid insufficiency (Chronic) correction (current) use of anticoagulants (Chronic) ICD (implantable [...] EMERGENCY DEPARTMENT Observed: 07/21/2017 Status: F Source: [place] SUMMARY 11:28 PM [facility] REPOSITORY [facility] Medical Records Department [address] [place] [address] Emergency Department Summary 07/21/17 2325 MR#: [id number] Acct: [id number] Name: ELIZABETH HO Rep #: [id number] : 1950 67 From: Leticia Parker DO [...] lower extremity] This note was generated with Hyperpia dictation software. It may contain incorrect words, [...] problems, contact your Primary Care Provider. Call [facility] ([phone]) or report to the closest Emergency Room. Call 911 if necessary. 07/21/17 6407 <Electronically signed by Leticia Parker DO> Date Leticia Ungharmony DO Cosigner Signature (If Indicated): Date CC: Williams Parekh MD BASIC METABOLIC Collected: 07/21/2017 Status: F Source: [place] PROFILE (BMP) 10:38 PM [facility] REPOSITORY TYPE CODE TESTS RESULT OUT [...] GAP 6 Performed By: #### L500.2500 #### [facility] [address] [place], [address] CBC W/DIFF, AUTOMATED Collected: 07/21/2017 Status: C Source: [place] 10:38 PM [facility] REPOSITORY TYPE CODE TESTS RESULT OUT [...] as: August Performed By: #### L100.0100 #### [facility] [address] [place], [address] PROTHROMBIN TIME W/INR Collected: 07/21/2017 Status: F Source: [place] 10:38 PM [facility] REPOSITORY TYPE CODE TESTS RESULT OUT OF RANGE REFERENCE UNITS LAB L300.4150 11.7-14.9 SECONDS High PROTIME 30.6 LAB L300.4200 Normal INR 2.9 Performed By: #### L300.3900 #### [facility] [address] [place], [address] PROTHROMBIN TIME W/INR Collected: 2017 Status: F Source: NAM 9:42 AM [facility] REPOSITORY TYPE CODE TESTS RESULT OUT OF RANGE REFERENCE UNITS LAB L300.4150 11.7-14.9 SECONDS High PROTIME 29.2 LAB L300.4200 Normal INR 2.7 Performed By: #### L300.3900 #### [facility] [address] [place], [address] ECHO, COMPLETE W/ Observed: 07/10/2017 Status: F Source: NAM CONTRAST 4:22 PM [facility] REPOSITORY [facility] Cardiovascular Services [address] [place] [address] Echo Complete W/ Contrast 07/10/17 1318 MR#: [id number] Acct: [id number] Name: ELIZABETH HO Bright Rep #: [id number] : 1950 66 From: Saji Hernandez MD Attending Dr: Anibal Jenkins NP Status: REG CLI Ordering Dr: Anibal Jenkins CHEMICAL UNIT OPERATOR-C Date: 07/10/17 Location: [facility] Sex: F [...] Date Dictated: 07/10/17 1318 Date Transcribed: 07/10/171620 Tester Operator Helper: Signed PROTHROMBIN TIME W/INR Collected: 06/26/2017 Status: F Source: NAM 1:21 PM [facility] REPOSITORY TYPE CODE TESTS RESULT OUT OF RANGE REFERENCE UNITS LAB L300.4150 11.7-14.9 SECONDS High PROTIME 30.1 LAB L300.4200 Normal INR 2.9 Performed By: #### L300.3900 #### [facility] [address] [facility] [place], [address] CARDIOLOGY VISIT Observed: 06/22/2017 Status: F Source: NAM REPORT 7:09 AM [facility] REPOSITORY [facility] [address] [place] [address] OFFICE VISIT Date of Service: 06/21/17 MR#: [id number] Acct: [id number] Name: ELIZABETH HO Rep #: [id number] : 1950 Provider: LEXI Jenkins Age/Sex: 66/F [place] [facility] [place] Status: Signed HPI HPI Details: ELIZABETH HO, [...] diabetes, chronic renal insufficiency. 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 We will wait for the results [...] 06/21/2017 Status: F Source: NAM 2:31 PM [facility] REPOSITORY [facility] Cardiovascular Services [address] [place] [address] 12 Lead EKG 06/20/172118 MR#: [id number] Acct: [id number] Name: ELIZABETH HO R Rep #: [id number] : 1950 66 From: Saji Hernandez MD [...] ECG Confirmed by SAJI HERNANDEZ MD ([id number]), website/blog editor CAT CONKLIN ([id number]) on 06/21/2017 2:30:43 PM Referred By: Michael See Confirmed By:SAJI HERNANDEZ MD 06/21/17 1430 Date Saji Hernandez MD CC: Williams Parekh MD; Brian Frey MD Signed EMERGENCY DEPARTMENT Observed: 06/21/2017 Status: F Source: NAM SUMMARY 12:10 AM [facility] REPOSITORY [facility] Medical Records Department [address] [place] [address] Emergency Department Summary 06/20/172253 MR#: [id number] Acct: [id number] Name: HOELIZABETH R Rep #: [id number] : 1950 66 From: Brian Frey MD [...] time her QTC was 530 and her NV was 204. CBC is marked for an [...] 2. Anxiety. This note was generated with MaxTradeIn.comation software. It may contain incorrect words, spelling, [...] your Primary Care Provider. Call [facility] ([phone]) or report to the closest Emergency Room. Call 911 if necessary. 06/21/17 0010 <Electronically signed by Brian Frey MD> Date Brian Frey MD Cosigner Signature (If Indicated): Date CC: Williams Parekh MD URINALYSIS, COMPLETE Collected: 06/20/2017 Status: F Source: NAM 10:05 PM [facility] REPOSITORY Order Comment: How was Urine Obtained? MARKETING RESEARCH ANALYST TO SPECIFY TYPE CODE TESTS RESULT OUT [...] 0-5 SEEN Performed By: #### L400.0001 #### [facility] [address] [place], [address] CBC W/DIFF, AUTOMATED Collected: 06/20/2017 Status: C Source: [place] 9:35 PM [facility] REPOSITORY TYPE CODE TESTS RESULT OUT [...] as: August Performed By: #### L100.0100 #### [facility] [address] [place], [place], [address] BASIC METABOLIC Collected: 06/20/2017 Status: F Source: [place] PROFILE (BMP) 9:35 PM [facility] REPOSITORY Order Comment: 'TROP' Serial specimen [...] 4 Performed By: #### L500.2500, L501.4010 #### [facility] [address] [place], [address] TROPONIN-I Collected: 06/20/2017 Status: F Source: [place] 9:35 PM [facility] REPOSITORY Order Comment: 'TROP' Serial specimen #1, #2, #3, or #4: 1 TYPE CODE TESTS RESULT OUT OF RANGE REFERENCE UNITS LAB L501.4010 <0.06 ng/mL Normal < 0.02 TROPONIN-I Result Comment: TROPONIN-I EXPECTED VALUES <0.05 NEGATIVE 0.06 - 0.59 AT RISK OF SD > OR = 0.60 SUGGEST SD Performed By: #### L500.2500, L501.4010 #### [facility] [address] [facility] [place], [address] PROTHROMBIN TIME W/INR Collected: 06/19/2017 Status: F Source: [place] 8:51 AM [facility] REPOSITORY TYPE CODE TESTS RESULT OUT OF REFERENCE UNITS RANGE LAB L300.4150 11.7-14.9 SECONDS High PROTIME 37.6 LAB L300.4200 High alert INR 4.0 Result Comment: CRITICAL VALUE VERIFIED. CALLED TO ZACH FRANCISCO 06/19/17 0949 Reji Taylor. RESULTS READ BACK BY SAME. Performed By: #### L300.3900 #### [facility] [address] [facility] [place], [address] PROTHROMBIN TIME W/INR Collected: 06/12/2017 Status: F Source: [place] 12:07 PM [facility] REPOSITORY TYPE CODE TESTS RESULT OUT OF REFERENCE UNITS RANGE LAB L300.4150 11.7-14.9 SECONDS High PROTIME 36.7 LAB L300.4200 High alert INR 3.9 Result Comment: CRITICAL VALUE VERIFIED. CALLED TO MAGGY AT [facility] 06/12/17 1340 Cyndie Lanier. RESULTS READ BACK BY SAME . Performed By: #### L300.3900 #### [facility] [address] [place], [address] PROTHROMBIN TIME W/INR Collected: 05/29/2017 Status: F Source: NAM 1:25 PM [facility] REPOSITORY TYPE CODE TESTS RESULT OUT OF RANGE REFERENCE UNITS LAB L300.4150 11.7-14.9 SECONDS High PROTIME 26.9 LAB L300.4200 Normal INR 2.6 Performed By: #### L300.3900 #### [facility] [address] [place], [address] PROTHROMBIN TIME W/INR Collected: 05/24/2017 Status: F Source: [place] 12:52 PM [facility] REPOSITORY Order Comment: CRITICAL VALUE VERIFIED. CALLED TO NOEMI 05/24/17 1320 Rayne Nicole. RESULTS READ BACK BY ALIA . TYPE CODE TESTS RESULT OUT OF REFERENCE UNITS RANGE LAB L300.4150 11.7-14.9 SECONDS High PROTIME 34.9 LAB L300.4200 High alert INR 3.7 Performed By: #### L300.3900 #### [facility] [address] [place], [address] PROTHROMBIN TIME W/INR Collected: 04/25/2017 Status: F Source: NAM 12:46 PM [facility] REPOSITORY TYPE CODE TESTS RESULT OUT OF RANGE REFERENCE UNITS LAB L300.4150 11.7-14.9 SECONDS High PROTIME 25.5 LAB L300.4200 Normal INR 2.4 Performed By: #### L300.3900 #### [facility] [address] [facility] [place], [address] BASIC METABOLIC Collected: 04/25/2017 Status: F Source: [place] PROFILE (BMP) 12:44 PM [facility] REPOSITORY TYPE CODE TESTS RESULT OUT [...] GAP 7 Performed By: #### L500.2500 #### [facility] [address] [place], [address] OFFICE VISIT REPORT Observed: 04/12/2017 Status: F Source: [place] 10:41 AM [facility] REPOSITORY [facility] [address] [place] [address] OFFICE VISIT Date of Service: 04/11/17 MR#: [id number] Acct: [id number] Patient: ELIZABETH HO Rep #: [id number] : 1950 Provider: Lela Bullock Age/Sex: 66/F Location: [facility] Status: Signed Device Device Date Interviewed: 04/11/17 Follow-up Location: in office Interview Reason: routine follow up Windows Systems Administrator: [employer] Name: Angeliquen IS-1/DF-1-DR Model: E143 Serial #: [id number] Implant Date: 08/14/14 Year(s): 2 Implant Physician: [...] Yes Incision well healed Leads Lead #1 Windows Systems Administrator Lead 1: Guidant Model Lead 1: [id number] Serial# Lead 1: [id number] Date Implanted Lead 1: 06/25/07 Position Lead 1: RA Lead #2 Windows Systems Administrator Lead 2: Medtronic Model Lead 2: 5076 Serial# Lead 2: [id number] Date Implanted Lead 2: 06/25/07 Position Lead 2: RV Additional Details: RV pace/sense lead Lead #3 Windows Systems Administrator Lead 3: Guidant Model Lead 3: 0184 Serial# Lead 3: [id number] Date Implanted Lead 3: 07/21/07 Position Lead [...] Presenting rhythm shows NSR @ 62 bpm. ROCKET MOTOR TESTER=<1%. Battery longevity approx 10 yrs. Lead impedances, [...] TIME W/INR Collected: 04/11/2017 Status: F Source: [place] 3:44 PM [facility] REPOSITORY Order Comment: Comments: Standing Order Comments: Standing Order TYPE CODE TESTS RESULT OUT OF RANGE REFERENCE UNITS LAB L300.4150 11.7-14.9 SECONDS High PROTIME 31.3 LAB L300.4200 Normal INR 3.2 Performed By: #### L300.3900 #### [facility] [address] [place], [address] ALLERGIES ALLERGIES DATE TYPE / NAME / CODE REACTION SEVERITY SOURCE CODE 11/20/2017 Drug amoxicillin Rash Unknown [place] Allergy/41 trihydrate/D97214 [facility] 7495273(SN 2707(RXNORM) [facility]) Repository 11/20/2017 Drug potassium Rash Unknown [place] Allergy/41 clavulanate/F0000 [facility] 7610716(SN 83766(RXNORM) [facility]) Repository 11/20/2017 Drug Sulfa Hives Unknown [place] Allergy/41 (Sulfonamide [facility] 2555294(SN Antibiotics)/F001 [facility]) 530171(RXNORM) Repository 11/20/2017 Drug vancomycin/O42217 Other Unknown [place] Allergy/41 4866(RXNORM) [facility] 1107752( Hospital OMED CT) Repository 08/26/2013 DRUG VANCOMYCIN ANAPHYLAXIS [facility] INGREDI/41 [place] 1304391(SN Repository OMED CT) 2013 DRUG/49194 AMOXICILLIN-POT RASH [facility] 1003(SNOME CLAVULANATE [place] D CT) Repository 01/10/2005 Drug SULFA HIVES [facility] Class/4195 (SULFONAMIDE [facility] [place] [address](SNOM ANTIBIOTICS) Repository ED CT) ENCOUNTERS ENCOUNTERS ADMIT/DISCHARGE ACCOUNT ADMITTING ENCOUNTER LOCATION SOURCE NUMBER CLASS 04/02/2018 [id number] Ambulatory B[facility]Building:[facility] [place] Hospital Repository 03/27/2018 [id number] Ambulatory [facility] Hospital ing:OLS.AVED Repository 03/24/2018 [id number] Ambulatory [facility] Hospital ing:OLS.AVED Repository 03/23/2018/03/23/20 [id number] Emergency [address] Hospital ing:ED Repository 03/22/2018 [id number] Ambulatory [facility] Hospital ing:OLS.AVED Repository 03/20/2018 [id number] Ambulatory [facility] Hospital ing:OLS.AVED Repository 03/19/2018 [id number] Ambulatory [facility] Hospital ing:OLS.AVED Repository 03/16/2018 [id number] Ambulatory [facility] Hospital ing:OLS.AVED Repository 03/14/2018 [id number] Ambulatory [facility] Hospital ing:OLS.AVED Repository 03/12/2018 [id number] Ambulatory [facility] HospitalBuild Hospital ing:OLS.AVED Repository 03/06/2018 [id number] Ambulatory [facility] Hospital ing:OLS.AVED Repository 03/02/2018 [id number] Ambulatory [facility] Hospital ing:OLS.AVEC Repository 02/28/2018 [id number] Ambulatory [facility] Hospital ing:OLS.AVED Repository 02/21/2018 [id number] Ambulatory [facility] HospitalBuild Hospital ing:OLS.AVED Repository 02/20/2018 [id number] Ambulatory [facility] Hospital ing:OLS.AVED Repository 02/14/2018 [id number] Ambulatory [facility] Hospital[facility] Hospital ing:OLS.AVED Repository 02/09/2018 [id number] Ambulatory [facility] Hospital ing:OLS.AVED Repository 02/08/2018 [id number] Ambulatory [facility] Hospital ing:OLS.AVED Repository 02/07/2018 [id number] Ambulatory [facility] Hospital ing:OLS.AVED Repository 01/31/2018 [id number] Ambulatory [facility] Hospital ing:OLS.AVED Repository 01/23/2018 [id number] Ambulatory [facility] Hospital ing:OLS.AVED Repository 01/19/2018 [id number] Ambulatory [facility] Hospital ing:OLS.AVED Repository 01/17/2018 [id number] Ambulatory [facility] Hospital ing:OLS.AVED Repository 01/15/2018 [id number] Ambulatory [facility] Hospital ing:OLS.AVED Repository 01/10/2018 [id number] Ambulatory [facility] Hospital ing:OLS.AVED Repository 01/08/2018 [id number] Ambulatory [facility] Hospital ing:OLS.AVED Repository 01/04/2018 [id number] Ambulatory [facility] Hospital ing:OLS.AVED Repository 01/02/2018 [id number] Ambulatory [facility] HospitalBuild Hospital ing:LAB Repository 01/01/2018 [id number] Loren Mendez Ambulatory [facility] Repository 01/01/2018/01/04/20 [id number] Loren Mendez Ambulatory [place] [address] HospitalBuild Hospital ing:KB6Nqsh: Repository [id number]: 1 01/01/2018 [id number] Loren Mendez Ambulatory BMSBuilding:[place] Repository 01/01/2018 [id number] White, Loren Ambulatory [facility] [place] Repository 12/29/2017/01/02/20 [id number] Ambulatory [address] Repository 12/28/2017/12/29/19 [id number] Emergency [address] Hospital ing:ED Repository 12/26/2017/12/27/19 [id number] Ambulatory BMSBuilding:B [place] 18 [place] Repository 12/22/2017/12/23/19 [id number] Ambulatory [address] Hospital ing:LAB Repository 11/20/2017/11/21/19 [id number] Ambulatory BMSBuilding:B [place] 18 [place] Repository 11/20/2017/11/21/19 [id number] Ambulatory [address] Hospital ing:LAB Repository 11/14/2017/11/15/19 [id number] Emergency [address] Hospital ing:ED Repository 10/16/2017/10/17/19 [id number] Ambulatory [facility]:B [place] 18 [facility] Repository 10/16/2017/10/17/19 [id number] Ambulatory [address] Hospital ing:LAB Repository 10/11/2017 [id number] Ambulatory [facility] [place] Repository 10/11/2017/10/12/19 [id number] Ambulatory BMSBuilding:B [place] 18 [place] Repository 10/03/2017 [id number] Ambulatory [facility] Repository 10/03/2017/10/05/19 [id number] Ambulatory [address] Repository 10/03/2017 [id number] Ambulatory [facility] Hospital ing:LAB.FUTUR Repository E 09/25/2017/09/26/19 [id number] Ambulatory BMSBuilding:B [place] 18 [place] Repository 09/21/2017/09/23/19 [id number] Ambulatory [address] Repository 09/17/2017/09/21/19 [id number] [facility], [facility] ing:PCURoom: Repository [id number]: 1 09/17/2017 [id number] White, Loren Ambulatory [facility] [place] Repository 09/17/2017 [id number] White, Loren Ambulatory BMSBuilding:B [place] [facility] Repository 09/17/2017 [id number] White, Loren Ambulatory [facility] [place] Repository 09/17/2017 [id number] White, Ambulatory BMSBuilding:B [place] [facility] Repository 09/17/2017 [id number] White, Loren Ambulatory BMSBuilding:[facility] [place] [facility] Repository 09/17/2017 [id number] White, Ambulatory B[facility]Building:B [place] Repository 09/17/2017 [id number] White, Ambulatory B[facility]Building:B [place] Repository 09/17/2017 [id number] White, Ambulatory BMSBuilding:B [place] Repository 09/11/2017/09/12/19 [id number] Ambulatory [address] ing:LAB Repository 09/07/2017 [id number] Ambulatory [facility] Repository 09/07/2017/09/08/19 [id number] Ambulatory [address] Repository 08/21/2017/09/05/19 [id number] Ambulatory [address] Repository 08/21/2017/08/22/19 [id number] Ambulatory [address] ing:LAB Repository 08/17/2017 [id number] Ambulatory [facility] Repository 08/01/2017/08/02/19 [id number] Ambulatory [address] Repository 07/22/2017/07/26/19 [id number] Piter Laureano Inpatient [place] [address] Encounter [facility] ing:AQ1Pjop: Repository FT281Ics: 1 07/22/2017 [id number] Piter Laureano Ambulatory BMSBuilding:Karly Browning [place].[facility] Repository 07/22/2017 [id number] Piter aLureano Ambulatory BMSBuilding:Karly Browning MS.[facility] Repository 07/22/2017 [id number] Piter Laureano Ambulatory BMSBuilding:Karly Browning MS.[facility] Repository 07/22/2017 [id number] Piter Laureano Ambulatory BMSBuilding:Karly Browning MS.[facility] Repository 07/22/2017/07/26/19 [id number] Ambulatory BMSBuilding:Karly Browning 18 MS.CF.[facility] Repository 07/17/2017/07/18/19 [id number] Ambulatory [address] Hospital ing:LAB Repository 07/13/2017 [id number] Ambulatory BMSBuilding:Karly Browning MS.[facility] Repository 07/10/2017 [id number] Ambulatory [facility] Hospital ing:CVS Repository 07/10/2017 [id number] Ambulatory BMSBuilding:W Nam [facility] Repository 07/03/2017/07/04/19 [id number] Ambulatory BMSBuilding:B Nam 18 MS.[facility] Repository 06/21/2017/06/21/19 [id number] Ambulatory BMSBuilding:B Nam 18 MS.[facility] Repository 06/21/2017 [id number] Ambulatory BMSBuilding:Karly Browning MS.[facility] Repository 06/20/2017/06/20/19 [id number] Emergency [address] Hospital ing:ED Repository 05/24/2017/05/24/19 [id number] Ambulatory [address] Hospital ing:LAB Repository 04/11/2017/04/23/20 [id number] Ambulatory [address] Hospital ing:LAB Repository 04/11/2017/04/11/20 [id number] Ambulatory BMSBuilding:B Nam 17 [place].[facility] Repository PAYERS PAYERS ENCOUNTER GUARANTOR PAYER SUBSCRIBER SOURCE 04/02/2018 ELIZABETH R Primary ELIZABETH R Nam [id number] [place] Insurance:AETSHERYL WETZELB: [facility] Number: [id number] Indian Dental Clinic [address]Olj: [id number] Repository Date:7771-89-39WR [address] () [id number] [place] [address]IU: 04/02/2018 Secondary NOT GIVENUNK Nam Insurance:SELF PAY [facility] Number: Effective Repository Date:2018-01-10 03/27/2018 ELIZABETH R Primary ELIZABETH R Nam [id number] E. Insurance:AETSHERYL WETZELB: [facility] Number: [id number] Area Community Hospital [id number] Repository [address]EN[address] OF Date:9361-13-24UV [facility] [address] [place] [address] 30081Crb: [phone]: [phone] () 03/27/2018 Secondary NOT GIVENUNK [place] Insurance:SELF PAY [facility] Number: Effective Repository Date:2018-03-27 03/24/2018 ELIZABETH R Primary NOT GIVENUNK [place] [id number] E. [facility] Repository AVEN[address] OF Date:2018-03-24 [facility]PITALJOSÉ [place]ISShohola, [place] [address]Twg: () 03/23/2018 ELIZABETH R Primary ELIZABETH R Nam [id number] E. Insurance:AETNA DAMARIB: [facility] Number: [id number] Area Community Hospital [id number] Repository [address]EN[address] OF Date:5076-58-41OM [facility]LEEASP[facility]ITALNAM [id number] [place] [address] 52164Vef: [phone]: [phone] (HP) 03/23/2018 Secondary NOT GIVENUNK Nam Insurance:SELF PAY [facility] Number: Effective Repository Date:2018-03-23 03/22/2018 ELIZABETH R Primary ELIZABETH R Nam [id number] E. Insurance:AETSHERYL DAMARIB: [facility] Number: [id number] Area Community Hospital [id number] Repository AVEN[address] OF Date:1337-92-58EZ [facility] [id number] [place] [address] 56825Lzl: [phone]: [phone] (HP) 03/22/2018 Secondary NOT GIVENUNK [place] Insurance:SELF PAY [facility] Number: Effective Repository Date:2018-03-22 03/20/2018 ELIZABETH R Primary NOT GIVENUNK Nam [id number] E. Insurance:SELF PAY [facility] Number: Effective Repository AVEN[address] OF Date:2018-03-20 [place], [place] [address]Ypz: (HP) 03/19/2018 ELIZABETH R Primary NOT GIVENUNK Nam [id number] E. Insurance:SELF PAY [facility] Number: Effective Repository AVENUE OF Date:2018-03-19 [facility] HOSPITALJOSÉ LUISShohola, [place] [address]Jsg: (HP) 03/16/2018 ELIZABETH R Primary ELIZABETH R [place] [id number] E. Insurance:AETSHERYL WETZELB: [facility] Number: [id number] Area Community Hospital [id number] Repository AVEN[address] OF Date:3714-18-97XW [facility] [id number] [place] [address] 07717Lza: [address]GJ: [phone] (HP) 03/16/2018 Secondary NOT GIVENUNK Nam Insurance:SELF PAY [facility] Number: Effective Repository Date:2018-03-16 03/14/2018 ELIZABETH R Primary ELIZABETH R [place] [id number] E. Insurance:AETNA PAPADOB: [facility] Number: [id number] Medical CenterT9BREffective Repository AVEN[address] OF Date:3440-55-85EX [facility] 6[address]YH[address] [place] [address] 32693Gnh: [phone]: [phone] (HP) 03/14/2018 Secondary NOT GIVENUNK Nam Insurance:SELF PAY [facility] Number: Effective Repository Date:2018-03-14 03/12/2018 ELIZABETH R Primary ELIZABETH R Nam [id number] E. Insurance:AETNA DAMARIB: [facility] Number: [id number] Medical CenterT9BREffective Repository [address]EN[address] OF Date:0040-24-60KI [facility] [id number] [place] [address] 53585Ehj: [phone]: [phone] (HP) 03/12/2018 Secondary NOT GIVENUNK [place] Insurance:SELF PAY [facility] Number: Effective Repository Date:2018-03-12 03/06/2018 ELIZABETH R Primary ELIZABETH R [place] [id number] E. Insurance:AETNA DAMARIB: [facility] Number: [id number] Medical CenterT9BREffective Repository [address]EN[address] OF Date:1898-79-53PJ [facility] LEELEEMCLAREN THUMB REGIONJEROMEARIZONA [facility] [id number] [place] [address] 42505Plf: [phone]: [phone] (HP) 03/06/2018 Secondary NOT GIVENUNK [place] Insurance:SELF PAY [facility] Number: Effective Repository Date:2018-03-06 03/02/2018 ELIZABETH R Primary ELIZABETH R [place] [id number] E. Insurance:AETNA DAMARIB: [facility] Number: [id number] Medical CenterT9BREffective Repository AVEN[address] OF Date:9073-54-26DZ [facility] [id number] [place] [address] [place] [address]Zrs: [phone]: [phone] (HP) 03/02/2018 Secondary NOT GIVENUNK Nam Insurance:SELF PAY [facility] Number: Effective Repository Date:2018-03-02 02/28/2018 ELIZABETH R Primary ELIZABETH R [place] [id number] E. Insurance:AETNA PAPADOB: [facility] Number: [id number] Medical CenterT9BREffective Repository AVEN[address] OF Date:3863-07-84QT [facility] 12[address] [place] [address] [place] [address]Qxm: [address]ZJ: [phone] (HP) 02/28/2018 Secondary NOT GIVENUNK [place] Insurance:SELF PAY [facility] Number: Effective Repository Date:2018-02-28 02/21/2018 ELIZABETH R Primary ELIZABETH R [place] [id number] E. Insurance:AETNA PAPADOB: [facility] Number: [id number] Medical CenterT9BREffective Repository [address]EN[address] OF Date:7931-48-34LF [address] [place] [address]Rpj: [address]AD: [phone] () 02/21/2018 Secondary NOT GIVENUNK Nam Insurance:SELF PAY [facility] Number: Effective Repository Date:2018-02-21 02/20/2018 ELIZABETH R Primary ELIZABETH R Nam [id number] E. Insurance:AETNA PAPADOB: [facility] Number: [id number] Medical CenterT9BREffective Repository AVEN[address] OF Date:6765-17-83IU [address] [place] [address]Uvu: [phone]: [phone] (HP) 02/20/2018 Secondary NOT GIVENUNK [place] Insurance:SELF PAY [facility] Number: Effective Repository Date:2018-02-20 02/14/2018 ELIZABETH R Primary ELIZABETH Browning [id number] E. Insurance:AETSHERYL HODOB: [facility] Number: [id number] Area Community Hospital [id number] Repository AVEN[address] OF Date:0653-62-43XU [facility] LEELEEMCLAREN THUMB REGIONJEROMEARIZONA [facility] 213240[address] [place] [address] 82692Wqo: [address]PF: [phone] () 02/14/2018 Secondary NOT GIVENUNK Nam Insurance:SELF PAY [facility] Number: Effective Repository Date:2018-02-14 02/09/2018 ELIZABETH R Primary ELIZABETH R [place] [id number] E. Insurance:AETNA PAPADOB: [facility] Number: [id number] Medical CenterT9BREffective Repository AVEN[address] OF Date:4999-79-15XE [facility] LEELEEMCLAREN THUMB REGIONJEROMEARIZONA [facility] 380111KT[address] [place] [address] 37999Nqm: [phone]: [phone] () 02/09/2018 Secondary NOT GIVENUNK Nam Insurance:SELF PAY [facility] Number: Effective Repository Date:2018-02-09 02/08/2018 ELIZABETH R Primary ELIZABETH R Nam [id number] E. Insurance:AETNA PAPADOB: [facility] Number: [id number] Regional HospitalBPT9BREffective Repository AVEN[address] OF Date:3157-38-11RL [facility] LEELEEMCLAREN THUMB REGIONJEROMEARIZONA [facility] 474488CO[address] [place] [address] 50903Asw: [address]01[address]ZE: [phone] () 02/08/2018 Secondary NOT GIVENUNK Nam Insurance:SELF PAY [facility] Number: Effective Repository Date:2018-02-08 02/07/2018 ELIZABETH R Primary ELIZABETH R [place] [id number] E. Insurance:AETNA PAPADOB: [facility] Number: [id number] Medical CenterT9BREffective Repository AVEN[address] OF Date:7706-19-00WP [facility] 7[address] [place] [address] 17503Yud: [phone]: [phone] (HP) 02/07/2018 Secondary NOT GIVENUNK [place] Insurance:SELF PAY [facility] Number: Effective Repository Date:2018-02-07 01/31/2018 ELIZABETH R Primary ELIZABETH R Nam [id number] E. Insurance:AETNA PAPADOB: [facility] Number: [id number] Medical CenterT9BREffective Repository AVEN[address] OF Date:5803-10-83JK [facility] 779246PJ[address] [place] [address] 42541Woc: [address]NX: [phone] (HP) 01/31/2018 Secondary NOT GIVENUNK [place] Insurance:SELF PAY [facility] Number: Effective Repository Date:2018-01-31 01/23/2018 ELIZABETH R Primary ELIZABETH R [place] [id number] E. Insurance:AETNA PAPADOB: [facility] Number: [id number] Medical CenterT9BREffective Repository AVEN[address] OF Date:0002-68-93CP [facility] 375[address] [place] [address] 98749Odp: [phone]: [phone] (HP) 01/23/2018 Secondary NOT GIVENUNK Nam Insurance:SELF PAY [facility] Number: Effective Repository Date:2018-01-23 01/19/2018 ELIZABETH R Primary ELIZABETH R [place] [id number] E. Insurance:AETNA PAPADOB: [facility] Number: [id number] Medical CenterT9BREffective Repository AVEN[address] OF Date:7939-36-58MI [facility] 12[address] [place] [address] 74100Eeg: [phone]: [phone] () 01/19/2018 Secondary NOT GIVENUNK [place] Insurance:SELF PAY [facility] Number: Effective Repository Date:2018-01-19 01/17/2018 ELIZABETH R Primary NOT GIVENUNK Nam [id number] FOREST Insurance:SELF PAY [facility] 31809Cnb: Number: Effective Repository Date:2018-01-17 () 01/15/2018 ELIZABETH R Primary ELIZABETH R Nam [id number] E. Insurance:AETNA DAMARIB: [facility] Number: [id number] Regional HospitalBPT9BREffective Repository [address] OF Date:3149-66-87HB [facility] 010194FV[address] [place] [address] 15216Zmy: [phone]: [phone] () 01/15/2018 Secondary NOT GIVENUNK Nam Insurance:SELF PAY [facility] Number: Effective Repository Date:2018-01-15 01/10/2018 ELIZABETH R Primary ELIZABETH R Nam [id number] E. Insurance:AETNA PAPADOB: [facility] Number: [id number] Medical CenterT9BREffective Repository [address]EN[address] OF Date:3658-07-54ZH [facility] [address] [place] [address] 67649Qxu: [phone]: [phone] () 01/10/2018 Secondary NOT GIVENUNK Nam Insurance:SELF PAY [facility] Number: Effective Repository Date:2018-01-10 01/08/2018 ELIZABETH R Primary ELIZABETH R [place] [id number] FOREST Insurance:AETNA PAPADOB: [facility] Number: [id number] Indian Dental Clinic [address]34[address]Mwd: [id number] Repository Date:2548-60-84CN BOX (HP) [address] [place], [place] [address]WX: 01/08/2018 Secondary NOT GIVENUNK Nam Insurance:SELF PAY [facility] Number: Effective Repository Date:2018-01-08 01/04/2018 ELIZABETH R Primary ELIZABETH R Nam [id number] FOREST Insurance:AETNA PAPADOB: Community Rubina GUSTAFSONicdanii Number: [id number] Indian Dental Clinic 00784Rcy: [id number] Repository Date:3414-51-39LG BOX (HP) 888720YL [place], [place] [address]AL: 01/04/2018 Secondary NOT GIVENUNK [place] Insurance:SELF PAY [facility] Number: Effective Repository Date:2018-01-04 01/02/2018 ELIZABETH R Primary ELIZABETH R Nam [id number] FOREST Insurance:AETNA PAPADOB: [facility] Cesar GUSTAFSON Number: [id number] Indian Dental Clinic 39[address]Zbp: [id number] Repository Date:7722-37-02NC BOX (HP) 520827SJ PASRoberto [place] [address]NZ: 01/02/2018 Secondary NOT GIVENUNK [place] Insurance:SELF PAY [facility] Number: Effective Repository Date:2017-12-26 01/01/2018 ELIZABETH R Primary ELIZABETH R [place] [id number] FOREST Insurance:AETNA DAMARIB: [facility] Cesar GUSTAFSON Number: [id number] Indian Dental Clinic [address]Alf: [id number] Repository Date:8557-71-86MM BOX (HP) 259813XE [place] Mejia [address]NW: 01/01/2018 Secondary NOT GIVENUNK Nam Insurance:SELF PAY [facility] Number: Effective Repository Date:2018-01-01 01/01/2018 ELIZABETH R Primary ELIZABETH R [place] [id number] FOREST Insurance:AETNA PAPADOB: [facility] Cesar GUSTAFSON Number: [id number] Indian Dental Clinic [address]Fug: [id number] Repository Date:1927-87-13ZS BOX () [place]19260[place], [place] [address]JA: 01/01/2018 Secondary NOT GIVENUNK [place] Insurance:SELF PAY [facility] Number: Effective Repository Date:2018-01-01 01/01/2018 ELIZABETH R Primary ELIZABETH R Nam [id number] FOREST Insurance:AETNA PAPADOB: [facility] HealthRubina SULLIVANdanii Number: [id number] Indian Dental Clinic 42[address]Znv: [id number] Repository Date:1110-65-91ZF BOX () 028390[place], [place] [address]BJ: 01/01/2018 Secondary NOT GIVENUNK Nam Insurance:SELF PAY [facility] Number: Effective Repository Date:2018-01-01 01/01/2018 ELIZABETH R Primary ELIZABETH R Nam [id number] FOREST Insurance:AETNA DAMARIB: [facility] HealthRubina SULLIVANicdanii Number: [id number] Indian Dental Clinic 127[address]Rbu: [id number] Repository Date:1130-97-62GS BOX () 890287RJCH[place], [place] [address]YU: 01/01/2018 Secondary NOT GIVENUNK [place] Insurance:SELF PAY [facility] Number: Effective Repository Date:2018-01-01 12/28/2017 ELIZABETH R Primary ELIZABETH R [place] [id number] FOREST Insurance:AETNA PAPADOB: Cesar Stevenson Number: [id number] Indian Dental Clinic 437[address]Ffj: [id number] Repository Date:7937-91-66SE BOX (HP) 736742CT [place] [address]GJ: 12/28/2017 Secondary NOT GIVENUNK [place] Insurance:SELF PAY [facility] Number: Effective Repository Date:2017-12-28 12/26/2017 ELIZABETH R Primary ELIZABETH R [place] [id number] FOREST Insurance:AETNA DAMARIB: Cesar Stevenson Number: [id number] Indian Dental Clinic 63008Rcl: [id number] Repository Date:3979-63-78AS BOX (HP) 570516DNCH[place], [place] [address]VS: 12/26/2017 Secondary NOT GIVENUNK [place] Insurance:SELF PAY [facility] Number: Effective Repository Date:2017-12-26 12/22/2017 ELIZABETH R Primary ELIZABETH R [place] [id number] FOREST Insurance:AETNA DAMARIB: Cesar Stevenson Number: [id number] Indian Dental Clinic 72487Rjf: [id number] Repository Date:3207-31-59DO BOX () 101961BZCH[place], [place] [address]AL: 12/22/2017 Secondary NOT GIVENUNK [place] Insurance:SELF PAY [facility] Number: Effective Repository Date:2017-11-23 11/20/2017 ELIZABETH R Primary ELIZABETH R Nam [id number] FOREST Insurance:AETNA DAMARIB: Cesar Stevenson Number: [id number] Indian Dental Clinic [address]4938Mra: [id number] Repository Date:3010-23-80JC BOX (HP) 172694UICH[place], [place] [address]TN: 11/20/2017 Secondary NOT GIVENUNK Nam Insurance:SELF PAY [facility] Number: Effective Repository Date:2017-11-20 11/20/2017 ELIZABETH R Primary ELIZABETH R [place] [id number] FOREST Insurance:AETNA PAPADOB: [facility] Rubina PERALTAdanii Number: [id number] Indian Dental Clinic [address]Abq: [id number] Repository Date:9684-56-81BA BOX (HP) 256988CK [place] [address]RI: 11/20/2017 Secondary NOT GIVENUNK Nam Insurance:SELF PAY [facility] Number: Effective Repository Date:2017-10-20 11/14/2017 ELIZABETH R Primary ELIZABETH R [place] [id number] FOREST Insurance:AETNA [facility]APADOB: [facility] Number: [id number] Indian Dental Clinic 83493Btd: [id number] Repository Date:1496-64-95QI BOX (HP) 469129PZ [place] [address]WE: 11/14/2017 Secondary NOT GIVENUNK [place] Insurance:SELF PAY [facility] Number: Effective Repository Date:2017-11-14 10/16/2017 ELIZABETH R Primary ELIZABETH R Nam [id number] FOREST Insurance:AETNA PAPADOB: [facility] FABIAN [facility] Number: [id number] Indian Dental Clinic 317[address]Skz: [id number] Repository Date:1504-51-41TZ BOX () 666113ZE [place] K[place] [address]ZN: 10/16/2017 Secondary NOT GIVENUNK [place] Insurance:SELF PAY [facility] Number: Effective Repository Date:2017-10-16 10/16/2017 ELIZABETH R Primary ELIZABETH R Nam [id number] FOREST Insurance:AETNA PAPADOB: Community Rubina GUSTAFSONicdanii Number: [id number] Indian Dental Clinic 66323Slp: [id number] Repository Date:3560-87-10QV BOX (HP) 189620HQ DIAZHAILEY [address]LJ: 10/16/2017 Secondary NOT GIVENUNK Nam Insurance:SELF PAY [facility] Number: Effective Repository Date:2017-09-21 10/11/2017 ELIZABETH R Primary ELIZABETH R Nam [id number] FOREST Insurance:AETSHERYL WETZELB: Rubina Stevensonicy Number: [id number] Indian Dental Clinic [address]Arr: [id number] Repository Date:1315-20-54FV BOX (HP) 405021ZQCH[place], [place] [address]DD: 10/11/2017 Secondary NOT GIVENUNK Nam Insurance:SELF PAY [facility] Number: Effective Repository Date:2017-10-11 10/11/2017 ELIZABETH R Primary ELIZABETH R [place] [id number] FOREST Insurance:MARIATSHERYL WETZELB: Rubina Stevensonicdanii Number: [id number] Indian Dental Clinic 22688Ift: [id number] Repository Date:8811-59-78FM BOX (HP) 841297SQCH[place] [address]OE: 10/11/2017 Secondary NOT GIVENUNK Nam Insurance:SELF PAY [facility] Number: Effective Repository Date:2017-10-11 10/03/2017 ELIZABETH R Primary ELIZABETH R [place] [id number] FOREST Insurance:MARIATSHERYL WETZELB: Rubina Stevensonicdanii Number: [id number] Indian Dental Clinic 91434Nad: [id number] Repository Date:7915-10-32NX BOX (HP) 154561RH [place] [address]VD: 10/03/2017 Secondary NOT GIVENUNK [place] Insurance:SELF PAY [facility] Number: Effective Repository Date:2017-10-03 09/25/2017 ELIZABETH R Primary ELIZABETH R [place] [id number] FOREST Insurance:AETNA PAPADOB: [facility]JEROME[facility] Number: [id number] Indian Dental Clinic 89575Wzp: [id number] Repository Date:7892-34-08XI BOX (HP) 894929JUHAILEY GARCIA [address]YB: 09/25/2017 Secondary NOT GIVENUNK [place] Insurance:SELF PAY [facility] Number: Effective Repository Date:2017-08-23 09/17/2017 ELIZABETH R Primary ELIZABETH R [place] [id number] FOREST Insurance:AETNA PAPADOB: [facility] Number: [id number] Indian Dental Clinic 80856Kcb: [id number] Repository Date:4820-17-46EP BOX (HP) 119132HV [place] [address]MQ: 09/17/2017 Secondary NOT GIVENUNK Nam Insurance:SELF PAY [facility] Number: Effective Repository Date:2017-09-17 09/17/2017 ELIZABETH R Primary ELIZABETH R Nam [id number] FOREST Insurance:AETNA PAPADOB: [facility] GE[facility]GIANAPontiac [facility] Hospitalic Number: [id number] Indian Dental Clinic 309[address]Pki: [id number] Repository Date:9083-79-02SI BOX (HP) 051694QZHAILEY GARCIA [address]RF: 09/17/2017 Secondary NOT GIVENUNK [place] Insurance:SELF PAY [facility] Number: Effective Repository Date:2017-09-17 09/17/2017 ELIZABETH R Primary ELIZABETH R Nam [id number] FOREST Insurance:AETNA PAPADOB: Community Rubina GUSTAFSONicy Number: [id number] Indian Dental Clinic [address]Khe: [id number] Repository Date:0595-94-08LA BOX (HP) 683591[place] [address]YY: 09/17/2017 Secondary NOT GIVENUNK Nam Insurance:SELF PAY [facility] Number: Effective Repository Date:2017-09-17 09/17/2017 ELIZABETH R Primary ELIZABETH R Nam [id number] FOREST Insurance:AETNA PAPADOB: [facility] Rubina GUSTAFSONicdanii Number: [id number] Indian Dental Clinic 57[address]Pia: [id number] Repository Date:1070-33-35BR BOX () 340517NMCH[place], [place] [address]DY: 09/17/2017 Secondary NOT GIVENUNK Nam Insurance:SELF PAY [facility] Number: Effective Repository Date:2017-09-17 09/17/2017 ELIZABETH R Primary ELIZABETH R Nam [id number] FOREST Insurance:AETNA PAPADOB: [facility] [facility] Rubina GUSTAFSONicdanii Number: [id number] Indian Dental Clinic [address]Jqd: [id number] Repository Date:6482-41-69FO BOX ([place]) [place]528SF[place], [place] [address]RZ: 09/17/2017 Secondary NOT GIVENUNK [place] Insurance:SELF PAY [facility] Number: Effective Repository Date:2017-09-17 09/17/2017 ELIZABETH R Primary ELIZABETH R [place] [id number] FOREST Insurance:AETNA PAPADOB: [facility] Rubina GUSTAFSONicy Number: [id number] Indian Dental Clinic [address]Hcb: [id number] Repository Date:2659-14-15TY BOX (HP) 851721APHAILEY GARCIA [address]RE: 09/17/2017 Secondary NOT GIVENUNK [place] Insurance:SELF PAY [facility] Number: Effective Repository Date:2017-09-17 09/17/2017 ELIZABETH R Primary ELIZABETH R Nam [id number] FOREST Insurance:AETNA [facility]ADOB[facility]Policy Number: [id number] Indian Dental Clinic [address]Gtc: [id number] Repository Date:6890-70-49UW BOX (HP) 449401YWHAILEY GARCIA [address]VG: 09/17/2017 Secondary NOT GIVENUNK Nam Insurance:SELF PAY [facility] Number: Effective Repository Date:2017-09-17 09/17/2017 ELIZABETH R Primary ELIZABETH R Nam [id number] FOREST Insurance:AETNA DUNNDOB: [facility] [place], [facility]ITALPolicy Number: [id number] Indian Dental Clinic [address]351Ybx: [id number] Repository Date:2564-85-96SQ BOX (HP) 294006FPHAILEY GARCIA [address]UR: 09/17/2017 Secondary NOT GIVENUNK Nam Insurance:SELF PAY [facility] Number: Effective Repository Date:2017-09-17 09/17/2017 ELIZABETH R Primary ELIZABETH R [place] [id number] FOREST Insurance:AETNA PAPADOB: [facility] [place], [facility]ITALPolicy Number: [id number] Indian Dental Clinic [address]Utf: [id number] Repository Date:9698-26-53OS BOX (HP) 910166HVHAILEY GARCIA [address]GX: 09/17/2017 Secondary NOT GIVENUNK [place] Insurance:SELF PAY [facility] Number: Effective Repository Date:2017-09-17 09/11/2017 ELIZABETH R Primary ELIZABETH R [place] [id number] FOREST Insurance:AETNA PAPADOB: Community NELSON GUSTAFSONPolicy Number: [id number] Indian Dental Clinic [address]Rft: [id number] Repository Date:6041-66-71SN [address] () 6696[place]OCCH[place], [place] [address]QZ: 09/11/2017 Secondary NOT GIVENUNK Nam Insurance:SELF PAY [facility] Number: Effective Repository Date:2017-08-22 08/21/2017 ELIZABETH R Primary ELIZABETH Bright Nam [id number] FOREST Insurance:AETNA PAPADOB: [facility] NELSON GUSTAFSONPolicdanii Number: [id number] Indian Dental Clinic [address]Pva: [id number] Repository Date:2144-53-10UQ BOX () 0456[place]ZE[place], [place] [address]CW: 08/21/2017 Secondary NOT GIVENUNK Nam Insurance:SELF PAY [facility] Number: Effective Repository Date:2017-07-24 07/22/2017 ELIZABETH R Primary ELIZABETH Novoa [place] [id number] FOREST Insurance:AETNA PAPADOB: [facility] NELSON GUSTAFSONPolicdanii Number: [id number] Indian Dental Clinic [address]686Whk: [id number] Repository Date:9785-96-68XP BOX () 624844PD[place], [place] [address]AJ: 07/22/2017 Secondary NOT GIVENUNK Nam Insurance:SELF PAY [facility] Number: Effective Repository Date:2017-07-21 07/22/2017 ELIZABETH R Primary ELIZABETH Bright [place] [id number] FOREST Insurance:AETNA PAPADOB: Community LINWOOD PERALTA, NELSONPolicy Number: [id number] Indian Dental Clinic 17400Kfn: [id number] Repository Date:5788-15-19UX BOX (HP) [address]BE [place] [address]MW: 07/22/2017 Secondary NOT GIVENUNK [place] Insurance:SELF PAY [facility] Number: Effective Repository Date:2017-07-22 07/22/2017 ELIZABETH R Primary ELIZABETH R [place] [id number] FOREST Insurance:AETNA PAPADOB: [facility] Rubina PERALTAicy Number: [id number] Indian Dental Clinic [address]802Oxl: [id number] Repository Date:2915-30-16XL BOX (HP) 062043ZZ [place] [address]GR: 07/22/2017 Secondary NOT GIVENUNK [place] Insurance:SELF PAY [facility] Number: Effective Repository Date:2017-07-22 07/22/2017 ELIZABETH R Primary ELIZABETH R Nam [id number] FOREST Insurance:AETNA PAPADOB: [facility] NELSON PERALTAPolicy Number: [id number] Indian Dental Clinic [address]Tlm: [id number] Repository Date:6015-07-38CL BOX (HP) 137549KI [place] [address]EV: 07/22/2017 Secondary NOT GIVENUNK Nam Insurance:SELF PAY [facility] Number: Effective Repository Date:2017-07-22 07/22/2017 ELIZABETH R Primary ELIZABETH R [place] [id number] FOREST Insurance:AETNA PAPADOB: [facility] FABIAN, NELSONPolicy Number: [id number] Indian Dental Clinic [address]Gyw: [id number] Repository Date:2663-54-56QU BOX (HP) 692354ZE [place], [place] [address]BC: 07/22/2017 Secondary NOT GIVENUNK [place] Insurance:SELF PAY [facility] Number: Effective Repository Date:2017-07-22 07/22/2017 ELIZABETH R Primary ELIZABETH R [place] [id number] FOREST Insurance:AETNA DUNNDOB: [facility] Rubina PERALTAdanii Number: [id number] Indian Dental Clinic [address]759Uwj: [id number] Repository Date:3377-99-13DU [address] () 375209YQ [place] [address]EH: 07/22/2017 Secondary NOT GIVENUNK [place] Insurance:SELF PAY [facility] Number: Effective Repository Date:2017-07-22 2017 ELIZABETH R Primary ELIZABETH R Nam [id number] FOREST Insurance:AETNA DUNNDOB: [facility] NELSON PERALTALehigh Valley Hospital - Muhlenbergdanii Number: [id number] Indian Dental Clinic 78338Wcx: [id number] Repository Date:4505-72-02MU BOX () 374763HO[place], [place] [address]LN: 2017 Secondary NOT GIVENUNK Nam Insurance:SELF PAY [facility] Number: Effective Repository Date:2017-05-26 07/13/2017 ELIZABETH R Primary ELIZABETH R [place] [id number] FOREST Insurance:MEDICARE DUNNDOB: [facility] FABIAN, PART A BPolicy [id number] Indian Dental Clinic 46386Kgr: Number: Repository [id number] () Date:2017-04-11 07/13/2017 Secondary ELIZABETH R Nam Insurance:ANTHEMPolic DUNNDOB: Community y Number: [id number] Hospital [id number] Repository Date:3506-61-82KG [address]PEYENLCPIYUSH [address]OS: 07/13/2017 Tertiary NOT GIVENUNK [place] Insurance:SELF PAY [facility] Number: Effective Repository Date:2017-04-11 07/10/2017 ELIZABETH R Primary ELIZABETH R Nam [id number] FOREST Insurance:AETNA DUNNDOB: Community Cesar GUSTAFSON Number: [id number] Indian Dental Clinic 63473Nev: [id number] Repository Date:6732-86-54UL BOX (HP) 927297CK [place] [address]JX: 07/10/2017 Secondary NOT GIVENUNK [place] Insurance:SELF PAY [facility] Number: Effective Repository Date:2017-06-21 07/10/2017 ELIZABETH R Primary ELIZABETH R Nam [id number] FOREST Insurance:AETSHERYL WETZELB: Rubina Stevensonicdanii Number: [id number] Indian Dental Clinic [address]102Hil: [id number] Repository Date:2856-04-89OV BOX (HP) [place]20[place], [place] [address]LV: 07/10/2017 Secondary NOT GIVENUNK [place] Insurance:SELF PAY [facility] Number: Effective Repository Date:2017-07-10 07/03/2017 ELIZABETH R Primary ELIZABETH R Nam [id number] FOREST Insurance:MORENO WETZELB: Cesar Stevenson Number: [id number] Indian Dental Clinic 46650Qim: [id number] Repository Date:2132-52-30CB BOX (HP) 335006QJ[place], [place] [address]FV: 07/03/2017 Secondary NOT GIVENUNK [place] Insurance:SELF PAY [facility] Number: Effective Repository Date:2017-07-03 06/21/2017 ELIZABETH R Primary ELIZABETH R [place] [id number] FOREST Insurance:MARIATSHERYL WETZELB: Cesar Stevenson Number: [id number] Indian Dental Clinic 49486Ztx: [id number] Repository Date:1276-54-24EJ [address]OX (HP) 553741[place], [place] [address]AY: 06/21/2017 Secondary NOT GIVENUNK Nam Insurance:SELF PAY [facility] Number: Effective Repository Date:2017-04-01 06/21/2017 ELIZABETH R Primary ELIZABETH R Nam [id number] FOREST Insurance:AETNA PAPADOB: [facility] Number: [id number] Indian Dental Clinic 37240Log: [id number] Repository Date:1841-02-71DB BOX (HP) 102462IOHAILEY GARCIA [address]UP: 06/21/2017 Secondary NOT GIVENUNK [place] Insurance:SELF PAY [facility] Number: Effective Repository Date:2017-06-21 06/20/2017 ELIZABETH R Primary ELIZABETH R [place] [id number] FOREST Insurance:AETNA PAPADOB: [facility] Number: [id number] Indian Dental Clinic 28386Koy: [id number] Repository Date:7637-07-68LR BOX (HP) 030738QO [place], [place] [address]KS: 06/20/2017 Secondary NOT GIVENUNK [place] Insurance:SELF PAY [facility] Number: Effective Repository Date:2017-06-20 05/24/2017 ELIZABETH R Primary ELIZABETH R [place] [id number] FOREST Insurance:AETNA PAPADOB: [facility] [place] [facility] Number: [id number] Indian Dental Clinic [address]Nzc: [id number] Repository Date:7363-83-67ME BOX (HP) 600429JLHAILEY GARCIA [address]EY: 05/24/2017 Secondary NOT GIVENUNK Nam Insurance:SELF PAY [facility] Number: Effective Repository Date:2017-04-24 04/11/2017 ELIZABETH R Primary ELIZABETH R Nam [id number] FOREST Insurance:MEDICARE DUNNDOB: Community [facility] [id number] Indian Dental Clinic 52775Hnv: Number: Repository [id number] (HP) Date:2013-06-22 04/11/2017 Secondary ELIZABETH R Nam Insurance:ANTHEMPolic DUNNDOB: Community y Number: [id number] Hospital [id number] Repository Date:2449-22-42[address] [place] [address]OG: 04/11/2017 Tertiary NOT GIVENUNK Nam Insurance:SELF PAY [facility] Number: Effective Repository Date:2017-03-24 04/11/2017 ELIZABETH R Primary ELIZABETH R [place] [id number] FOREST Insurance:MEDICARE DUNNDOB: [facility] [id number] Indian Dental Clinic 68363Wxd: Number: Repository [id number] (HP) Date:2017-03-25 04/11/2017 Secondary ELIZABETH R Nam Insurance:ANTHEMPolic DUNNDOB: Community y Number: [id number] Mexico Rehabilitation [id number] Repository Date:7220-85-18ZB [address] [place] [address]TU: 04/11/2017 Tertiary NOT GIVENUNK Nam Insurance:SELF PAY [facility] Number: Effective Repository Date:2017-03-25
== END ==
LOC: OLS.AVED 06:30
PROVIDERS: Visit Provider Family Medicine
DX: N18.9 Chronic kidney disease, unspecified (principal); R53.83 Other fatigue
CPT/HCPCS: 36415; 85027

== ENCOUNTER → 2018-03-27 05:00 | Outpatient (REF) | payer MEDICARE, SELFPAY ==
[2018-03-23 18:44] VITALS: BMI 43.4
[2018-03-27 09:21] LABS: Prothrombin Time Fingerstick 55.8 SEC (11.9-14.4)
[2018-03-27 09:55] LABS: Anion Gap 18 (5-15); BUN 66 mg/dL (7-18); BUN/Creat Ratio 25.2 RATIO (10-20); Calcium,Total 8.3 mg/dL (8.5-10.1); Chloride 96 mmol/L (98-107); Creatinine, Serum 2.62 mg/dL (0.55-1.02); EST Glomerular Filtration Rate 19 mL/min (>60); Est Glom Filt Rate - Afr Amer 23 mL/min (>60); Glucose 52 mg/dL (74-106); Potassium 4.6 mmol/L (3.5-5.1); Sodium Level 137 mmol/L (136-145)
== END ==
LOC: OLS.AVED 05:00
PROVIDERS: Visit Provider Family Medicine
DX: E11.9 Type 2 diabetes mellitus without complications (principal); I50.9 Heart failure, unspecified; N18.9 Chronic kidney disease, unspecified; Z79.01 Long term (current) use of anticoagulants
CPT/HCPCS: 36415; 36416; 80048; 85610